=== PATIENT | male | born 1950 | race Caucasian/White ===

== ENCOUNTER 2022-06-17 22:47 | Emergency (ER) | payer OTHER, SELFPAY ==
[2022-06-17 22:50] VITALS: BP 160/105; PULSE 89; RESP 20; TEMP 36.6; O2SAT 98; BMI 21.3
--- NOTE | 2022-06-17 22:54 | CRLHL7_ITS ---
For Patients: As a result of the Century Cures Act, medical imaging exams and procedure reports are released immediately into your electronic medical record. You may view this report before your referring provider. If you have questions, please contact your health care provider. INDICATION: Fall. TECHNIQUE: CT head without contrast. COMPARISON: None. FINDINGS: CSF spaces: Within normal limits for age. Brain parenchyma and extra-axial spaces: The acuña-white differentiation is normal. No sign of mass, hemorrhage, or midline shift. No extra-axial fluid collection. Skull base and calvarium: The visualized paranasal sinuses and mastoid air cells demonstrate no acute or significant findings. The visualized orbits are grossly unremarkable. No skull fractures. IMPRESSION: Unremarkable noncontrast head CT. Please note that all CT scans at this facility use dose modulation, iterative reconstruction, and/or weight-based dosing when appropriate to reduce radiation dose to as low as reasonably achievable. Dictated by Joe Coello MD @ 06/17/2022 11:36:45 PM (Electronically Signed)
--- NOTE | 2022-06-17 23:03 | ED_ITS ---
HPI - General Adult General Chief complaint: Fall/Minor Trauma Stated complaint: Fell hit head thinks he's having a stroke Time Seen by Provider: 06/17/22 22:57 History of Present Illness HPI narrative: Patient is a somewhat disabled 72-year-old [place] who rolled out of bed tonight. He arrives with an abrasion on the top of his head. He is complaining of intermittent numbness and extreme burning of his hands and legs. Upon arrival he is screaming I need morphine. Patient moves all of his extremities well. He seems to be very distractible with regards to his history and for the most part appears to be at his baseline. His daughter peers stating that the patient is difficult to handle and his often intoxicated which he is at this point. Related Data Home Medications Medication Instructions Recorded Confirmed aspirin 325 mg tablet 325 mg PO DAILY 06/17/22 06/17/22 atorvastatin 80 mg tablet 80 mg PO QPM 06/17/22 06/17/22 fluticasone propionate 50 2 spray intranasal DAILY PRN 06/17/22 06/17/22 mcg/actuation nasal spray,suspension (24 Hour Allergy Relief) isosorbide mononitrate 30 mg 30 mg PO DAILY 06/17/22 06/17/22 tablet,extended release 24 hr lisinopril 10 1 tab PO DAILY 06/17/22 06/17/22 mg-hydrochlorothiazide 12.5 mg tablet loratadine 10 mg tablet 10 mg PO DAILY 06/17/22 06/17/22 (Allerclear) metoprolol tartrate 50 mg tablet 25 mg PO BID 06/17/22 06/17/22 (Lopressor) nitroglycerin 0.4 mg sublingual 0.4 mg sublingual Q5-15M PRN 06/17/22 06/17/22 tablet pantoprazole 20 mg tablet,delayed 20 mg PO DAILY 06/17/22 06/17/22 release Allergies Allergy/AdvReac Type Severity Reaction Status Date / Time No Known Drug Allergies Allergy Verified 06/17/22 23:09 Review of Systems Status of ROS: Reports: 10 or more systems reviewed and unremarkable except as noted in History and below Exam Narrative: Exam Narrative: EXAM GENERAL: Patient appears comfortable and well. Abrasion noted on his scalp. EYES: No scleral icterus. LYMPH: No supraclavicular or cervical lymphadenopathy. SKIN: Visible skin seen during exam normal or with benign process only. EXT: No dependent lower extremity pedal edema. Unable to palpate any bony abnormalities in the patient moves all extremities well. HEART: Regular rate and rhythm with no murmurs, rubs, or gallops. LUNGS: Clear to auscultation bilaterally with no crackles or wheezes. ABD: Soft, non tender, non distended. PSYCH: Patient is intoxicated. Const: Vital Signs, click to edit/add: Vital Signs - 24 hr 06/17/22 22:50 Temperature 97.9 F Pulse Rate [Right Pulse Oximeter] 89 Respiratory Rate 20 Blood Pressure [Ri ght Upper Arm] 160/105 H Pulse Oximetry 98 Oxygen Delivery Me thod Room Air Course Course Hospital Course: Patient seen examined. I did explain my somewhat guarded opinion of patient's true injuries to his [id number] who is very understanding patient sent for CT scan of the head which is unremarkable upon my review. Did dress his wounds on his scalp. Reevaluation(s) Reevaluation #1: Patient asking for pain medications which we are declining as patient is intoxicated. Time: 23:07 Vital Signs Vital signs: Initial Vital Signs Temperature 97.9 F 06/17/22 22:50 Temperature Source Temporal Artery Scan 06/17/22 22:50 Pulse Rate 89 06/17/22 22:50 Respiratory Rate 20 06/17/22 22:50 Blood Pressure 160/105 H 06/17/22 22:50 Blood Pressure Mean 123 06/17/22 22:50 Blood Pressure Position Supine 06/17/22 22:50 Pulse Oximetry 98 06/17/22 22:50 Oxygen Delivery Method 06/17/22 22:50 Vital Signs Temperature 97.9 F 06/17/22 22:50 Pulse Rate 89 06/17/22 22:50 Respiratory Rate 20 06/17/22 22:50 Blood Pressure 160/105 H 06/17/22 22:50 Pulse Oximetry 98 06/17/22 22:50 Oxygen Delivery Method 06/17/22 22:50 Temperature 97.9 F 06/17/22 22:50 Pulse Rate 89 06/17/22 22:50 Respiratory Rate 20 06/17/22 22:50 Blood Pressure 160/105 H 06/17/22 22:50 Pulse Oximetry 98 08/01/22 22:50 Oxygen Delivery Method 06/17/22 22:50 Discharge Plan Discharge Clinical Impression: Contusion Patient Disposition: Home, Self-Care Condition: Stable Additional Instructions: Continue current care. Tylenol Motrin as needed. Ice as needed. Activity Level: Activity as Tolerated Discharge Diet: Regular Stand Alone Forms: [facility] Info Instructions
[2022-06-17] MEDS: KETOROLAC 30 MG/ML inj IM (23:15)
[2022-06-17 23:38] VITALS: BP 155/89; PULSE 84; RESP 20; TEMP 36.6; O2SAT 98
--- NOTE | 2022-06-17 23:39 | ED.FALL ---
HPI - Fall General Chief Complaint: Fall/Minor Trauma Stated Complaint: Fell hit head thinks he's having a stroke Time Seen by Provider: 06/17/22 22:57 Related Data Home Medications Medication Instructions Recorded Confirmed atorvastatin 80 mg tablet 80 mg PO QPM 06/17/22 07/16/22 fluticasone propionate 50 1 spray intranasal DAILY 06/17/22 07/16/22 mcg/actuation nasal spray,suspension (24 Hour Allergy Relief) isosorbide mononitrate 30 mg 30 mg PO DAILY 06/17/22 07/16/22 tablet,extended release 24 hr loratadine 10 mg tablet 10 mg PO DAILY 06/17/22 07/16/22 (Allerclear) metoprolol tartrate 50 mg tablet 50 mg PO BID 06/17/22 07/16/22 (Lopressor) amiodarone 200 mg PO DAILY 06/18/22 07/16/22 apixaban 5 mg tablet 5 mg PO BID 06/18/22 07/16/22 acetaminophen 500 mg tablet 500 mg PO TID 07/16/22 07/16/22 adalimumab 40 mg/0.4 mL 40 mg subcut Q14D 07/16/22 07/16/22 subcutaneous pen kit aspirin 81 mg tablet,delayed 81 mg PO DAILY 07/16/22 07/16/22 release (Adult Low Dose Aspirin) cholecalciferol (vitamin D3) 25 25 mcg PO DAILY 07/16/22 07/16/22 mcg (1,000 unit) capsule cyanocobalamin (vitamin B-12) 1,000 mcg PO DAILY 07/16/22 07/16/22 1,000 mcg tablet folic acid 1 mg tablet 1 mg PO DAILY 07/16/22 07/16/22 lidocaine 4 % topical patch 1 - 3 patch topical Q24H 07/16/22 07/16/22 methocarbamol 500 mg tablet 250 - 500 mg PO Q6H PRN 07/16/22 07/16/22 oxycodone 5 mg tablet 2.5 - 5 mg PO Q4H PRN 07/16/22 07/16/22 pantoprazole 40 mg tablet,delayed 40 mg PO DAILY 07/16/22 07/16/22 release polyethylene glycol 3350 17 17 g PO BID 07/16/22 07/16/22 gram/dose oral powder (Miralax) prednisone 10 mg tablet 10 mg PO DAILY 07/16/22 07/16/22 sulfasalazine 500 mg tablet 1 g PO BID 07/16/22 07/16/22 Previous Rx's Medication Instructions Recorded budesonide 0.5 mg/2 mL suspension 0.5 mg (2 mL) NEB BID 30 days #60 07/17/22 for nebulization (Pulmicort) mL ipratropium 0.5 mg-albuterol 3 mg 3 ml inhalation TID 30 days #90 ea 07/17/22 (2.5 mg base)/3 mL nebulization soln Allergies Allergy/AdvReac Type Severity Reaction Status Date / Time No Known Drug Allergies Allergy Verified 07/16/22 10:52 [facility] Medical History (Updated 10/28/22 @ 00:03 by ) Alcohol abuse Arteriosclerosis of coronary artery Atrial fibrillation C5 pedicle fracture CHF (congestive heart failure) Chronic kidney disease GERD (gastroesophageal reflux disease) Hypertension Rheumatoid arthritis Tetrahydrocannabinol (THC) use disorder, mild, abuse Surgical History H/O total knee replacement Hx of coronary angioplasty Social History Highest level of school completed/degree received: 9th grade Smoking Status: Former smoker Do you use any of these nicotine containing products: None Second hand tobacco smoke exposure: No How often do you have a drink containing alcohol: never AUDIT-C Alcohol total score: 0 Non-prescribed substance use: marijuana (any form) Caffeine: Yes service: Yes Exam Const: Vital Signs, click to edit/add: Vital Signs - 24 hr 06/17/22 22:50 06/17/22 23:38 Temperature 97.9 F 97.9 F Pulse Rate [Right Pulse Oximeter] 89 84 Respiratory Rate 20 20 Blood Pressure [Ri ght Upper Arm] 160/105 H 155/89 H Pulse Oximetry 98 98 Oxygen Delivery Me thod Room Air Room Air Course Course Hospital Course: Patient seen examined. I did explain my somewhat guarded opinion of patient's true injuries to his [id number] who is very understanding patient sent for CT scan of the head which is unremarkable upon my review. Did dress his wounds on his scalp. Vital Signs Vital signs: Initial Vital Signs Temperature 97.9 F 06/17/22 22:50 Temperature Source Temporal Artery Scan 06/17/22 22:50 Pulse Rate 89 06/17/22 22:50 Respiratory Rate 20 06/17/22 22:50 Blood Pressure 160/105 H 06/17/22 22:50 Blood Pressure Mean 123 06/17/22 22:50 Blood Pressure Position Supine 06/17/22 22:50 Pulse Oximetry 98 06/17/22 22:50 Oxygen Delivery Method 06/17/22 22:50 Vital Signs Temperature 97.9 F 06/17/22 22:50 Pulse Rate 89 06/17/22 22:50 Respiratory Rate 20 06/17/22 22:50 Blood Pressure 160/105 H 06/17/22 22:50 Pulse Oximetry 98 06/17/22 22:50 Oxygen Delivery Method 06/17/22 22:50 Temperature 97.9 F 06/17/22 23:45 Pulse Rate 84 06/17/22 23:45 Respiratory Rate 20 06/17/22 23:45 Blood Pressure 155/89 H 06/17/22 23:45 Pulse Oximetry 98 06/17/22 23:38 Oxygen Delivery Method 06/17/22 23:38 Discharge Plan Discharge Clinical Impression: Contusion Patient Disposition: Home, Self-Care Condition: Stable Additional Instructions: Continue current care. Tylenol Motrin as needed. Ice as needed. Activity Level: Activity as Tolerated Discharge Diet: Regular Prescriptions: No Action fluticasone propionate [24 Hour Allergy Relief] 50 mcg/actuation spray,suspension 1 spray intranasal DAILY Rx Instructions: administer into each nostril loratadine [Allerclear] 10 mg tablet 10 mg PO DAILY metoprolol tartrate [Lopressor] 50 mg tablet 50 mg PO BID isosorbide mononitrate 30 mg tablet extended release 24 hr 30 mg PO DAILY atorvastatin 80 mg tablet 80 mg PO QPM apixaban 5 mg tablet 5 mg PO BID amiodarone 200 mg PO DAILY acetaminophen 500 mg tablet 500 mg PO TID adalimumab 40 mg/0.4 mL pen injector kit 40 mg subcut Q14D Rx Instructions: start on day 29 of therapy aspirin [Adult Low Dose Aspirin] 81 mg tablet,delayed release (DR/EC) 81 mg PO DAILY cholecalciferol (vitamin D3) 25 mcg (1,000 unit) capsule 25 mcg PO DAILY cyanocobalamin (vitamin B-12) 1,000 mcg tablet 1,000 mcg PO DAILY folic acid 1 mg tablet 1 mg PO DAILY lidocaine 4 % adhesive patch,medicated 1 - 3 patch topical Q24H Rx Instructions: may leave on for up to 12 hrs pantoprazole 40 mg tablet,delayed release (DR/EC) 40 mg PO DAILY sulfasalazine 500 mg tablet 1 g PO BID Rx Instructions: give with food (meal/snack) prednisone 10 mg tablet 10 mg PO DAILY polyethylene glycol 3350 [Miralax] 17 gram/dose powder 17 g PO BID oxycodone 5 mg tablet 2.5 - 5 mg PO Q4H PRN methocarbamol 500 mg tablet 250 - 500 mg PO Q6H PRN budesonide [Pulmicort] 0.5 mg/2 mL Suspension For Nebulization 0.5 mg NEB BID 30 Days Qty: 60 1RF ipratropium-albuterol 0.5 mg-3 mg(2.5 mg base)/3 mL solution for nebulization 3 ml inhalation TID 30 Days Qty: 90 1RF Stand Alone Forms: [facility] Info Instructions
[2022-06-17 23:43] VITALS: TEMP 36.6
[2022-06-17 23:45] VITALS: BP 155/89; PULSE 84; RESP 20; TEMP 36.6
--- OUTSIDE RECORDS SUMMARY | 2022-06-25 19:35 | XMS_ITS | Continuity of Care Document ---
:1950 Author Organization [facility] Care Team Providers Name Role Phone [facility] Unavailable Unavailable Problems Combined list of problems from Department of Defense and [facility] Affairs facilities. It does not include entries that were removed or entered in error. Problem Status Onset Problem Date of Comments Source Date Type Resolution Acute non-ST segment Active Condition THICK[place] elevation myocardial [facility] infarction Alcohol abuse Active Condition [place] (SNOMED CT 71825481) [facility] Anemia (SNOMED CT Active Condition [place] [id number]) [facility] Ankle pain Active Condition [place] [facility] Benign essential Active Condition [place] hypertension (OMED [facility] CT 6437932) CAD - Coronary Active Condition Sep 18, [place] artery disease 2015 Entered [facility] By: MARYELLEN LEON Comment: s/p stenting Cannabis abuse Active Condition [place] (SNOMED CT 18069928) [facility] Chronic kidney Active Condition [place] disease [facility] Drug monitoring done Active Condition [facility] Elevated liver Active Condition [place] enzymes level [facility] Gastroesophageal Active Condition [place] reflux disease [facility] 422281002) Hand pain Active [place] [facility] Hearing loss * Active Condition [place] (ICD-9-CM 389.9) [facility] HTN - Hypertension Active Condition [place] (SNOMED CT 47908861) [facility] Hyperlipidemia Active Condition [place] (SNOMED CT 72609449) [facility] Jt Replcmnt Stat, Active Condition [place] Knee [facility] Long-term current Active Condition [place] use of anticoagulant [facility] 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, [place]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 [facility] By: MARYELLEN LEON Comment: [facility] 02/2022 Pain in joint Active Condition May 14, [place] involving shoulder 2010 Entere d [facility] region (ICD-9-CM By: 719.41) MARYELLEN LEON Comment: RIGHT Pain of right Active Condition [place] shoulder joint [facility] Paroxysmal atrial Active Condition [place] fibrillation [facility] Rhinitis Active Condition [place] [facility] Rib fracture Active Condition Dec 15, [place] 2018 Entered [facility] By: MARYELLEN LEON Comment: s/p fall 11/2018, RIGHT rib Seropositive Active Condition [place] rheumatoid arthritis [facility] Knee: arthralgia * Inactive Condition 05/04/2010 THICKET (ICD-9-CM 719.46) [facility] Admit Reason: FALL active Diagnosis [place] REC DC [facility] Diagnosis: ICD-10-CM active Diagnosis THICKET R62.7 Adult failure [facility] to thrivewith Provider Comments: Adult Failure to Thrive Diagnosis: ICD-10-CM active Diagnosis THICKET I47.1 [facility] Supraventricular tachycardiawith Provider Comments: Multifocal atrial tachycardia (SCT 86347649) Diagnosis: ICD-10-CM active Diagnosis THICKET I48.0 Paroxysmal [facility] atrial fibrillationwith Provider Comments: Paroxysmal atrial fibrillation (SCT 852321684) Diagnosis: ICD-10-CM active Diagnosis THICKET Z13.6 Encounter for [facility] screening for cardiovascular disorderswith Provider Comments: Encounter for Screening for Cardiovascular Disorders Diagnosis: ICD-10-CM active Diagnosis THICKET K64.8 Other [facility] hemorrhoidswith Provider Comments: Other Hemorrhoids Diagnosis: ICD-10-CM active Diagnosis THICKET Z71.89 Other [facility] specified counselingwith Provider Comments: Other specified Counseling Diagnosis: ICD-10-CM active Diagnosis THICKET Z79.01 [facility] (current) use of anticoagulantswith Provider Comments: [facility] (current) use of anticoagulants Diagnosis: ICD-10-CM active Diagnosis THICKET I48.92 Unspecified V [facility] atrial flutterwith Provider Comments: Unspecified Atrial Flutter Diagnosis: ICD-10-CM active Diagnosis THICKET I47.1 [facility] Supraventricular tachycardiawith Provider Comments: Multifocal atrial tachycardia (SNOMED CT 90723711) Diagnosis: ICD-10-CM active Diagnosis THICKET M06.9 Rheumatoid [facility] arthritis, unspecifiedwith Provider Comments: Seropositive rheumatoid arthritis (SCT 148004729) Diagnosis: ICD-10-CM active Diagnosis THICKET K02.9 Dental caries, [facility] unspecifiedwith Provider Comments: Dental Caries, unspecified Diagnosis: ICD-10-CM active Diagnosis THICKET Z23 Encounter for [facility] immunizationwith Provider Comments: Encounter for Immunization Diagnosis: ICD-10-CM active Diagnosis THICKET H25.13 Age-related V A [facility] nuclear cataract, bilateralwith Provider Comments: Age-related nuclear cataract, bilateral Diagnosis: ICD-10-CM active Diagnosis THICKET I25.10 Athscl heart [facility] disease of [place] coronary artery w/o ang pctrswith Provider Comments: CAD - Coronary artery disease ([facility] [id number]) Diagnosis: ICD-10-CM active Diagnosis THICKET L40.50 Arthropathic [facility] psoriasis, unspecifiedwith Provider Comments: Psoriatic arthritis Diagnosis: ICD-10-CM active Diagnosis THICKET M05.9 Rheumatoid [facility] arthritis with rheumatoid factor, unspecifiedwith Provider Comments: Seropositive Rheumatoid arthritis Medications Combined list of outpatient medications from Department of Defense and Veterans Affairs facilities. Medications provided include 1) outpatient medications from the last 15 months, and 2) patient-reported medications. Medication Details Route Status Patient Prescription Prescription Last Ordering Order Source Instructions Expires Number Dispense Provider Date Date ACETAMINOPH TAKE TWO ORALLY ACTIVE 02/09/2023 [id number] H OANG,VIE 02/11/ [place] 500MG TABLETS 2 T H 2021 [place] TAB BY MOUTH [facility] FOUR TIMES A DAY NEEDED *NOT TO EXCEED 4000MG IN 24 HOURS* FOR PAIN ACETAMINOPH TAKE TWO ORALLY DISCONT 01/13/2022 [id number] LEON,VIE 01/16/ [place] 500MG TABLETS INUED 2 T H 2020 [place] TAB BY MOUTH [facility] FOUR TIMES A DAY NEEDED *NOT TO EXCEED 4000MG IN 24 HOURS* FOR PAIN ADALIMUMAB INJECT SUBCUT ACTIVE 01/12/2023 [id number] RIN DEN,TI 02/08/ [place] 40MG/0.8ML 40 MG ANEOUS 2 MOTHY D 2021 [place] A INJ,PEN,KIT UNDER HCS THE SKIN EVERY 2 WEEKS ADALIMUMAB INJECT SUBCUT DISCONT 09/29/2022 [id number] MO LITOR,J 10/01/ [place] 40MG/0.8ML 40 MG ANEOUS INUE 2 ERRY A 2020 [place] INJ,PEN,KIT UNDER HCS THE SKIN EVERY 2 WEEKS ADALIMUMAB INJECT SUBCUT DISCONT 01/13/2022 [id number] AL VANPOUR 01/16/ [place] 40MG/0.8ML 40 MG ANEOUS INUE 1 ,RAGHAVENDRA 2020 [place] INJ,PEN,KIT UNDER HCS THE SKIN EVERY 2 WEEKS AMIODARONE TAKE ONE ORALLY SUSPEND 05/16/2023 [id number] M CCRARY,A 05/16/ [place] HCL TABLET ED 2 BBIE L 2021 [place] (PACERONE) BY MOUTH HCS 200MG TAB EVERY DAY FOR HEART RHYTHM - TAKE WITH FOOD AMIODARONE TAKE ONE ORALLY DISCONT 07/09/2022 [id number] M CCRARY,A 04/10/ [place] HCL TABLET INUED 2 BBIE L 2021 [place] (PACERONE) BY MOUTH (EDIT) HCS 200MG TAB TWICE A DAY FOR 30 DAYS, THEN TAKE ONE TABLET EVERY DAY FOR HEART RHYTHM - TAKE WITH FOOD APIXABAN TAKE ONE ORALLY ACTIVE 06/06/2023 [id number] EDUARDO ON, 06/06/ [place] 5MG TAB TABLET 2 HANG 2021 [place] BY MOUTH [facility] EVERY 12 HOURS TO PREVENT BLOOD CLOTS and STROKE. APIXABAN TAKE ONE ORALLY DISCONT 04/24/2023 [id number] VIC ACUNAK 04/24/ [place] 5MG TAB TABLET INUED 2 RISTIN Y 2021 [place] BY MOUTH (EDIT) HCS EVERY 12 HOURS TO PREVENT BLOOD CLOTS and STROKE. APIXABAN TAKE ONE ORALLY DISCONT 05/10/2022 [id number] ALF RARY,A 04/10/ [place] 5MG TAB TABLET INUED 2 BBIE L 2021 [place] BY MOUTH (EDIT) HCS EVERY 12 HOURS TO PREVENT BLOOD CLOTS and STROKE. ASPIRIN TAKE ONE ORALLY DISCONT 06/02/2022 [id number] DANAY NG,VIE 07/26/ [place] 81MG TAB,EC TABLET INUED 2 T H 2020 [place] BY MOUTH HCS EVERY DAY ASPIRIN TAKE ONE ORALLY DISCONT 12/26/2021 [id number] DANAY NG,VIE 12/27/ [place] 81MG TAB,EC TABLET INUE 1 T H 2020 [place] BY MOUTH HCS EVERY DAY ATORVASTATI TAKE ONE ORALLY ACTIVE 03/06/2023 [id number] H OANG,VIE 03/05/ [place] CA 80MG TABLET 2 T H 2021 [place] TAB BY MOUTH HCS AT BEDTIME FOR CHOLESTE ROL REPLACES SIMVASTA TIN ATORVASTATI TAKE ORALLY DISCONT 06/02/2022 [id number] H OAJATIN CASTRO 06/03/ [place] 80MG ONE-HALF INUED 2 T H 2020 [place] TAB TABLET (EDIT) HCS BY MOUTH AT BEDTIME FOR CHOLESTE ROL REPLACES SIMVASTA TIN CARBOXYMETH INSTILL BOTH ACTIVE 07/12/2022 [id number] SCHEU RER, 07/12/ [place] YLCELLULOSE 1 DROP EYES 1 ANGELA A 2020 [place] A NA 0.25% IN BOTH HCS SOLN,OPH EYES FOUR TIMES A DAY CEPHALEXIN TAKE 1 ORALLY ACTIVE JATIN LEON [place] 500MG CAP CAPSULE T H 2021 [place] BY MOUTH HCS FOUR TIMES A DAY CHOLECALCIF TAKE ONE ORALLY 06/02/2022 [id number] CAROLYNCHARLESNina 06/03/ [place] RONAK 25MCG TABLET 2 T H 2020 [place] (1,000UNIT) BY MOUTH HCS TAB EVERY DAY CYANOCOBALA TAKE ONE ORALLY ACTIVE 03/06/2023 [id number] LEON,VIE 05/30/ [place] MIN 1000MCG TABLET 2 T H 2021 [place] TAB BY MOUTH HCS EVERY DAY CYANOCOBALA TAKE ONE ORALLY DISCONT 06/02/2022 [id number] LEON,VIE 06/03/ [place] MIN 1000MCG TABLET INUED 2 T H 2020 [place] TAB BY MOUTH HCS EVERY DAY DOCUSATE NA TAKE TWO ORALLY ACTIVE JATIN LEON 06/24 / [place] 50MG/SENNOS TABLETS T H 2021 [place] A IDES 8.6MG BY MOUTH HCS TAB TWICE A DAY FLUTICASONE SPRAY 1 NASAL 06/02/2022 [id number] JATIN LEON 06/03/ [place] PROPIONATE SPRAY IN 1 T H 2020 [place] A 50MCG/SPRAY EACH HCS SOLN,NASAL, NOSTRIL 16GM TWICE A DAY NEEDED FOR RUNNY NOSE USE REGULARL Y FOR RELIEF OF ALLERGIE S/CONGES TION FOLIC ACID TAKE ONE ORALLY ACTIVE 03/06/2023 [id number] H OACHARLES CASTROE 04/25/ [place] 1MG TAB TABLET 2 T H 2021 [place] BY MOUTH HCS EVERY DAY FOLIC ACID TAKE ONE ORALLY DISCONT 01/12/2023 [id number] RINDEN,TI 02/04/ [place] 1MG TAB TABLET INUED 2 MOTHY D 2021 [place] BY MOUTH HCS EVERY DAY FOLIC ACID TAKE ONE ORALLY DISCONT 01/13/2022 [id number] ALVANPOUR 02/19/ [place] 1MG TAB TABLET INUE 1 ,RAGHAVENDRA 2020 [place] BY MOUTH HCS EVERY DAY GABAPENTIN TAKE 1 ORALLY ACTIVE JATIN LEON [place] 300MG CAP CAPSULE T H 2021 [place] BY MOUTH HCS THREE TIMES A DAY HEMORRHOIDA APPLY RECTAL ACTIVE [place] L OINT,RTL THIN SSEIN 2021 [place] LAYER TO ISSAK HCS RECTUM FOUR TIMES A DAY NEEDED ISOSORBIDE TAKE ORALLY ACTIVE 03/06/2023 [id number] LEON, VIE 03/13/ [place] MONONITRATE ONE-HALF 2 T H 2021 [place] 60MG TAB,SA TABLET HCS BY MOUTH EVERY DAY ISOSORBIDE TAKE ORALLY DISCONT 03/22/2022 [id number] FB-SAG ER, 02/21/ [facility] MONONITRATE ONE-HALF INUED 2 ANGELA 2021 ent o f 60MG TAB,SA TABLET BY MOUTH s EVERY Affairs DAY ISOSORBIDE TAKE ONE ORALLY DISCONT 06/02/2022 [id number] LEON,VIE 06/23/ [place] MONONITRATE TABLET INUED 2 T H 2020 [place] 60MG TAB,SA BY MOUTH HCS EVERY DAY FOR CHEST PAIN ISOSORBIDE TAKE ONE ORALLY DISCONT 07/29/2021 [id number] LEON,VIE 09/12/ [place] MONONITRATE TABLET INUE 1 T H 2019 [place] 60MG TAB,SA BY MOUTH HCS EVERY DAY FOR CHEST PAIN LIDOCAINE APPLY TOPICA ACTIVE JATIN LEON 06/24/ [place] PATCH 1-3 LLY T H 2021 [place] PATCH 4% HCS TOPICALL Y EVERY DAY LORATADINE TAKE ONE ORALLY DISCONT 07/29/2021 [id number] H ZINAJATIN 09/04/ [place] 10MG TAB TABLET INUE 1 T H 2019 [place] BY MOUTH HCS EVERY DAY FOR ALLERGY SYMPTOMS LORATADINE TAKE ONE ORALLY 06/02/2022 [id number] H ZINAJATIN 06/23/ [place] 10MG TAB TABLET 2 T H 2020 [place] BY MOUTH HCS EVERY DAY FOR ALLERGY SYMPTOMS MAGNESIUM TAKE 1 ORALLY 04/05/2022 [id number] RANWEI LER 03/06/ [place] CITRATE BOTTLE 2 ,VJ B 2021 [place] LIQUID,ORAL BY MOUTH HCS ONCE AT 12PM (NOON) ONE DAY BEFORE PROCEDUR E FOR COLON PREP METHOCARBAM TAKE ORALLY ACTIVE JATIN LEON 06/24/ [place] TAB ONE-HALF T H 2021 [place] TO ONE HCS TABLET BY MOUTH EVERY 6 HOURS NEEDED METOPROLOL TAKE ONE ORALLY ACTIVE 03/06/2023 [id number] H JATIN IZAGUIRRE 03/13/ [place] TARTRATE TABLET 2 T H 2021 [place] 50MG TAB BY MOUTH HCS TWICE A DAY METOPROLOL TAKE ONE ORALLY DISCONT 03/22/2022 [id number] F B-GABRIEL, m TARTRATE TABLET INUED 2021 ent of 50MG TAB BY MOUTH [place] TWICE A s DAY Affairs METOPROLOL TAKE ORALLY DISCONT 06/02/2022 [id number] CHARLES LEONE 08/07/ [place] TARTRATE ONE-HALF INUED 2 T H 2020 [place] 50MG TAB TABLET HCS BY MOUTH TWICE A DAY FOR HEART METOPROLOL TAKE ORALLY DISCONT 07/29/2021 [id number] JATIN LEON 08/18/ [place] TARTRATE ONE-HALF INUE 1 T H 2019 [place] 50MG TAB TABLET HCS BY MOUTH TWICE A DAY FOR HEART OXYCODONE TAKE ORALLY ACTIVE JATIN LEON 06/24/ [place] TAB ONE-HALF T H 2021 [place] TO ONE HCS TABLET BY MOUTH EVERY 4 HOURS NEEDED PANTOPRAZOL TAKE ONE ORALLY ACTIVE 03/06/2023 [id number] LEON,VIE 04/30/ [place] NA 40MG TABLET 2 T H 2021 [place] TAB,EC BY MOUTH HCS EVERY MORNING ONE-HALF HOUR BEFORE EATING TO DECREASE STOMACH ACID TAKE ON AN EMPTY STOMACH, AT LEAST 30 MINUTES PRIOR TO MEAL PANTOPRAZOL TAKE ONE ORALLY DISCONT 06/02/2022 [id number] LEON,VIE 08/07/ [place] NA 40MG TABLET INUED 2 T H 2020 [place] TAB,EC BY MOUTH HCS EVERY MORNING ONE-HALF HOUR BEFORE EATING TO DECREASE STOMACH ACID TAKE ON AN EMPTY STOMACH, AT LEAST 30 MINUTES PRIOR TO MEAL PANTOPRAZOL TAKE ONE ORALLY DISCONT 07/29/2021 [id number] LEON,VIE 08/09/ [place] 40MG TABLET INUE 1 T H 2019 [place] TAB,EC BY MOUTH HCS EVERY MORNING ONE-HALF HOUR BEFORE EATING TO DECREASE STOMACH ACID TAKE ON AN EMPTY STOMACH, AT LEAST 30 MINUTES PRIOR TO MEAL PEG-3350/EL TAKE 1 ORALLY 04/05/2022 [id number] RA NWEILER 03/06/ [place] ECTROLYTES CONTAINE 2 ,VJ B 2021 [place] S VA PWDR R (4 HCS LITERS) BY MOUTH DIRECTED FOR COLON PREP *MIX ACCORDIN G TO PACKAGE INSTRUCT IONS. *DRINK ONE-HALF CONTAINE R STARTING AT 4PM THE DAY BEFORE EXAM. DRINK REMAININ G ONE-HALF CONTAINE R 6 HOURS BEFORE EXAM. FOR COLON PREP *MIX ACCORDIN G TO PACKAGE INSTRUCT IONS. *DRINK ONE-HALF CONTAINE R STARTING AT 4PM THE DAY BEFORE EXAM. DRINK REMAININ G ONE-HALF CONTAINE R 6 HOURS BEFORE EXAM. POLYETHYLEN TAKE 17 ORALLY ACTIVE LEON,VIE 06/24/ [place] E GLYCOL GRAMS BY T H 2021 [place] 3350 MOUTH HCS PWDR,ORAL TWICE A DAY PREDNISONE TAKE ONE ORALLY ACTIVE 01/12/2023 [id number] R IN[place],TI 01/19/ [place] 10MG TAB TABLET 2 MOTHY D 2021 [place] BY MOUTH HCS EVERY DAY PREDNISONE TAKE ONE ORALLY DISCONT 03/21/2022 [id number] M OLVINICIUSJ 03/20/ [place] 10MG TAB TABLET INUE 1 ERRY A 2020 [place] BY MOUTH HCS EVERY DAY SULFASALAZI TAKE TWO ORALLY ACTIVE 01/12/2023 [id number] RINDEN,TI 01/19/ [place] 500MG TABLETS 2 MOTHY D 2021 [place] TAB BY MOUTH HCS TWICE A DAY SULFASALAZI TAKE TWO ORALLY DISCONT 03/21/2022 [id number] ORLANDOJ 03/20/ [place] 500MG TABLETS INUE 1 ERRY A 2020 [place] [facility] TAB BY MOUTH HCS TWICE A DAY TAMSULOSIN TAKE 1 ORALLY ACTIVE JATIN LEON [place] HCL 0.4MG CAPSULE T H 2021 [place] CAP BY MOUTH HCS EVERY DAY Allergies, Adverse Reactions, Alerts Combined list of allergies from Department of Defense and Veterans Affairs facilities. It does not include entries that were removed or entered in error. Substance Category Reaction Severity Reaction Status Date Comments S ource type Reported LISINOPRIL Propensity Cough Propensity active [place] to adverse to adverse 1 IS [facility] reactions reactions to drug to drug (finding) (finding) Immunizations Combined list of available immunizations from the Department of Defense and Veterans Affairs facilities. 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 4 complet PFR; [place] (LUBB-TEX), 2021 ed [id number]; [place] MRNA, LNP-S, 02 HCS PF, 30 2 MCG/0.3 ML DOSE, JJ-SUCROSE (AGES 12+ YEARS) COVID-19 3 complet PRF; [place] (LUBB-TEX), 2020 ed [id number]; [place] MRNA, LNP-S, 02 HCS PF, 30 2 MCG/0.3 ML DOSE INFLUENZA, complet [place] INJECTABLE, 2020 ed [place] QUADRIVALENT, HCS PRESERVATIVE FREE COVID-19 2 complet PFR; [place] (PFIZER), 2020 ed [id number]; [place] MRNA, LNP-S, 02 HCS PF, 30 1 MCG/0.3 ML DOSE COVID-19 1 complet PFR; [place] (PFIZER), 2020 ed [id number]; [place] MRNA, LNP-S, 02 CBOC PF, 30 1 MCG/0.3 ML DOSE INFLUENZA, complet [place] INJECTABLE, 2019 ed [place] QUADRIVALENT, HCS PRESERVATIVE FREE INFLUENZA, complet [place] SEASONAL, 2018 ed [place] INJECTABLE, HC S PRESERVATIVE FREE ZOSTER 2 complet [place] RECOMBINANT 2018 ed [place] H[facility] ZOSTER 1 complet [place] RECOMBINANT 2018 ed [place] HCS INFLUENZA, complet [place] SEASONAL, 2017 ed [place] INJECTABLE, HC S PRESERVATIVE FREE INFLUENZA, complet [place] HIGH DOSE 2016 [facility] INFLUENZA, complet [place] SEASONAL, 2015 ed [place] INJECTABLE, HC S PRESERVATIVE FREE INFLUENZA, complet [place] HIGH DOSE 2014 ed [place] SEASONAL HCS PNEUMOCOCCAL complet [facility] [place] CONJUGATE PCV 2015 ed PHARM, M20 [facility] 13 640,03/03 HCS INFLUENZA, complet [place] SEASONAL, 2013 ed [place] INJECTABLE, HC S PRESERVATIVE FREE PNEUMOCOCCAL, complet michelle ck and [place] UNSPECIFIED 2013 ed co,[id number] [facility] VA FORMULATION 6,25sep1 4 HCS INFLUENZA, complet [place] UNSPECIFIED 2013 ed [place] [facility] FORMULATION HC S INFLUENZA, complet [place] UNSPECIFIED 2012 ed [place] [facility] FORMULATION HC S ZOSTER LIVE complet [place] 2012 ed INC, OL VA [id number], HCS [id number] TDAP complet glaxos[employer] M [place] 2009 ed hkline,ac [facility] [id number], HCS 01/03/12 Results Combined list of recent chemistry, hematology and other laboratory results from Department of Defense and Veterans Affairs, ranging from 15 months to all on record, depending upon the facility. Order Results Value Reference Date Interpretation Specimen Commen ts Source Name Range URINALYS COLOR OF YELLOW 06/24 Specimen Type: URINE [place] IS URINE /2021 No comment enter ed. IS [facility] Ordering Provid er: JAYDE MENDOZA Report Released Date/Time: Jun 24, 2022 06:55 PM Reporting Lab: [facility] [address] [place] [phone] Performing Lab: [facility] [address] [place] [address] URINALYS SPECIFIC 1.039 1.003 - 06/24 H Specimen Type: URINE [place] GRAVITY OF 1.035 /2021 No comment en tered. IS [facility] URINE Ordering Provid er: JAYDE MENDOZA Report Released Date/Time: Jun 24, 2022 06:55 PM Reporting Lab: [facility] [address] [place] [address] Performing Lab: [facility] [address] [place] [address] URINALYS BILIRUBIN. NEGATIVE 06/24 Specimen Ty pe: URINE [place] TOTAL /2021 No comment enter ed. IS [facility] [[place]] Ordering Pro vider: JAYDE MENDOZA IN URINE Report Release d Date/Time: Jun 24, 2022 06:55 PM BY TEST Reporting Lab: [facility] STRIP [address] [place] [address] Performing Lab: [facility] [address] [place] [address] URINALYS KETONES NEGATIVE 06/24 Specimen Type: URINE [place] IS [MASS/VOLU /2021 No comment en tered. IS [facility] ME] IN Ordering Provid er: JAYDE MENDOZA URINE BY Report Release d Date/Time: Jun 24, 2022 06:55 PM TEST STRIP Reporting La b: [facility] [address] [place] [phone] Performing Lab: [facility] [address] [place] [phone] URINALYS GLUCOSE NEGATIVE <30 - 30 06/24 Specimen Type : URINE [place] IS [MASS/VOLU /2021 No comment en tered. IS [facility] ME] IN Ordering Provid er: JAYDE MENDOZA W URINE BY Report Release d Date/Time: Jun 24, 2022 06:55 PM TEST STRIP Reporting La b: [facility] [address] [place] [phone] Performing Lab: [facility] [place] [address] URINALYS PROTEIN 50 <20 - 20 06/24 Specimen Type: URINE [place] IS [MASS/VOLU /2021 No comment en zach. IS [facility] ME] IN Ordering Provid er: JAYDE MENDOZA URINE BY Report Release d Date/Time: Jun 24, 2022 06:55 PM TEST STRIP Reporting La b: [facility] [address] [facility] [phone] Performing Lab: [facility] [place] [address] URINALYS PH OF 6.5 5.0 - 8.0 06/24 Specimen Type : URINE [place] IS URINE BY /2021 No comment jessica bilsl. IS [facility] TEST STRIP Ordering Pro vider: JAYDE MENDOZA Report Released Date/Time: Jun 24, 2022 06:55 PM Reporting Lab: [facility] [address] [place] [facility] [address] Performing Lab: [facility] [address] [place] [facility] [address] URINALYS LEUKOCYTES 17 0 - 7 06/24 H Specimen Typ e: URINE [place] IS [#/AREA] /2021 No comment jessica bills. IS [facility] IN URINE Ordering Provi maria: JAYDE MENDOZA SEDIMENT Report Release d Date/Time: Jun 24, 2022 06:55 PM BY Reporting Lab: [facility] MICROSCOPY [facility] [address] HIGH POWER Performing L ab: [facility] FIELD [address] [place] [facility] [address] URINALYS BACTERIA NONE 06/24 Specimen Type: URINE [place] IS [[place]] SEEN /2021 No comment nils serrano. IS [facility] IN URINE Ordering Provi maria: JAYDE MENDOZA SEDIMENT Report Release d Date/Time: Jun 24, 2022 06:55 PM BY LIGHT Reporting Lab: [facility] MICROSCOPY [facility] [phone] Performing Lab: [facility] [address] [place] [facility] [address] URINALYS CALCIUM FEW 06/24 Specimen Type: URINE [place] IS OXALATE /2021 No comment enter ed. IS [facility] CRYSTALS Ordering Provi maria: JAYDE MENDOZA [[place]] Report Relea sed Date/Time: Jun 24, 2022 06:55 PM IN URINE Reporting Lab: [facility] SEDIMENT [address] [facility] [phone] BY LIGHT Performing Lab : [facility] MICROSCOPY [facility] [address] URINALYS ERYTHROCYT >180 0 - 3 06/24 H Specimen Typ e: URINE [place] IS ES /2021 No comment enter ed. IS [facility] [#/AREA] Ordering Provi maria: JAYDE MENDOZA IN URINE Report Release d Date/Time: Jun 24, 2022 06:55 PM SEDIMENT Reporting Lab: [facility] BY [address] [place] [facility] [address] MICROSCOPY Performing L ab: [facility] HIGH POWER [facility] [address] FIELD URINALYS APPEARANCE TURBID 06/24 Specimen Typ e: URINE [place] IS OF URINE /2021 No comment ente red. IS [facility] Ordering Provid er: JAYDE MENDOZA Report Released Date/Time: Jun 24, 2022 06:55 PM Reporting Lab: [facility] [address] [place] [facility] [address] Performing Lab: [facility] [address] [place] [facility] [address] URINALYS EPITHELIAL NONE 06/24 Specimen Typ e: URINE [place] IS CELLS.SQUA SEEN No comment en tered. IS [facility] MOUS Ordering Provid er: JAYDE MENDOZA [#/AREA] Report Release d Date/Time: Jun 24, 2022 06:55 PM IN URINE Reporting Lab: [facility] SEDIMENT [address] [facility] [id number] BY Performing Lab: [facility] MICROSCOPY [facility] [id number] HIGH POWER FIELD URINALYS HEMOGLOBIN 3+ 06/24 Specimen Typ e: URINE [place] IS [PRESENCE] /2021 No comment en tered. IS [facility] [facility] Ordering Provi maria: JAYDE MENDOZA BY TEST Report Released Date/Time: Jun 24, 2022 06:55 PM STRIP Reporting Lab: [facility] [address] [facility] [address] Performing Lab: [facility] [address] [facility] [address] URINALYS NITRITE NEGATIVE 06/24 Specimen Type: URINE [place] IS [[place]] No comment en tered. IS [facility] IN URINE Ordering Prov ider: KELLY,JAYDE W BY TEST Report Released Date/Time: Jun 24, 2022 06:55 PM STRIP Reporting Lab: [facility] [place] [address] Performing Lab: [facility] [address] [place] [address] URINALYS LEUKOCYTE 25 06/24 Specimen Type : URINE [place] IS ESTERASE /2021 No comment ente red. IS [facility] [[place]] Ordering Pro vider: JAYDE MENDOZA IN URINE Report Release d Date/Time: Jun 24, 2022 06:55 PM BY TEST Reporting Lab: [facility] STRIP [address] [place] [address] Performing Lab: [facility] [address] [place] [address] AST/SGOT ASPARTATE 19 <34 - 34 06/24 Specimen Typ e: PLASMA [place] AMINOTRANS /2021 No comment en zach. IS [facility] FERASE Ordering Provid er: JAYDE MENDOZA [ENZYMATIC Report Relea sed Date/Time: Jun 24, 2022 08:09 PM ACTIVITY/V Reporting La b: [facility] OLUME] IN [address] [facility] [address] SERUM OR Performing Lab : [facility] PLASMA [place] [address] POTASSIU POTASSIUM 4.9 3.5 - 5.1 06/24 Specimen Ty pe: PLASMA [place] M [MOLES/VOL /2021 No comment en terhernando. IS [facility] UME] IN Ordering Provid er: JAYDE MENDOZA SERUM OR Report Release d Date/Time: Jun 24, 2022 08:09 PM PLASMA Reporting Lab: [facility] [place] [address] Performing Lab: [facility] [address] [facility] [address] PROTEIN, PROTEIN 6.8 6.0 - 8.3 06/24 Specimen Type : PLASMA [place] TOTAL [MASS/VOLU /2021 No comment en terhernando. IS [facility] ME] IN Ordering Provid er: JAYDE MENDOZA SERUM OR Report Release d Date/Time: Jun 24, 2022 08:09 PM PLASMA Reporting Lab: [facility] [address] [facility] [address] Performing Lab: [facility] [place] [address] PROTHROM INR IN 1.1 0.8 - 1.1 06/24 Specimen Type : PLASMA [place] BIN PLATELET /2021 No comment ente red. IS [facility] TIME/INR POOR Ordering Provi maria: JAYDE MENDOZA PLASMA BY Report Releas ed Date/Time: Jun 24, 2022 06:55 PM COAGULATIO Reporting La b: [facility] N ASSAY [place] [address] Performing Lab: [facility] [place] [address] PROTHROM PROTHROMBI 12.1 9.4 - 12.5 06/24 Specimen Type: PLASMA [place] BIN N TIME /2021 No comment enter ed. IS [facility] TIME/INR (PT) Ordering Provi maria: JAYDE MENDOZA Report Released Date/Time: Jun 24, 2022 06:55 PM Reporting Lab: [facility] [place] [address] Performing Lab: [facility] [place] [address] COVID-19 SARS-COV-2 Not 06/24 Specimen Typ e: NASOPHARYNGEAL [place] DIAGNOST (COVID-19) Detected /2021 Comment: C epheid GeneXpert (618) IS [facility] IC PANEL RNA Ordering Provi maria: JAYDE MENDOZA (CEPHEID [[place]] Report Rele ased Date/Time: Jun 24, 2022 06:55 PM ) IN Reporting Lab: [facility] RESPIRATOR [address] [facility] [address] Y SPECIMEN Performing L ab: [facility] BY DESTINY [place] [address] WITH PROBE DETECTION CBC & LEUKOCYTES 9.67 4.0 - 11.0 06/24 Specimen T ype: BLOOD [place] DIFF [#/VOLUME] /2021 Comment: Clu mped Platelets. Invitro artefact. No clinical significance. Platelet count may be higher than stated value. Plt count = 214 K-cmm Manual Differential Performed IS [facility] IN BLOOD Ordering Provi maria: JAYDE MENDOZA BY Report Released Date/Time: Jun 24, 2022 06:55 PM AUTOMATED Reporting Lab : [facility] COUNT [place] [address] Performing Lab: [facility] [place] [address] CBC & ERYTHROCYT 3.36 4.6 - 6.2 08/08 L Specimen Ty pe: BLOOD [place] DIFF ES /2021 Comment: Clumpe d Platelets. Invitro artefact. No clinical significance. Platelet count may be higher than stated value. Plt count = 214 K- cmm Manual Differential Performed IS [facility] [#/VOLUME] Ordering Pro vider: JAYDE MENDOZA IN BLOOD Report Release d Date/Time: Jun 24, 2022 06:55 PM BY Reporting Lab: [facility] AUTOMATED [facility] [address] COUNT Performing Lab: [facility] [address] [facility] [address] CBC & HEMOGLOBIN 12.0 13.5 - 08/08 L Specimen Type : BLOOD [place] DIFF [MASS/VOLU 17.9 /2021 Comment: Clu mped Platelets. Invitro artefact. No clinical significance. Platelet count may be higher than stated value. Plt count = 214 K-cmm Manual Differential Performed IS [facility] ME] IN Ordering Provid er: JAYDE MENDOZA BLOOD Report Released Date/Time: Jun 24, 2022 06:55 PM Reporting Lab: [facility] [address] [facility] [address] Performing Lab: [facility] [address] [facility] [address] CBC & HEMATOCRIT 35.9 41 - 54 /08 L Specimen Type : BLOOD [place] DIFF [VOLUME /2021 Comment: Clumpe d Platelets. Invitro artefact. No clinical significance. Platelet count may be higher than stated value. Plt count = 214 K-cmm Manual Differential Performed IS [facility] FRACTION] Ordering Prov ider: JAYDE MENDOZA OF BLOOD Report Release d Date/Time: Jun 24, 2022 06:55 PM BY Reporting Lab: [facility] AUTOMATED [facility] [address] COUNT Performing Lab: [facility] [address] [facility] [address] CBC & MCV 106.8 80 - 100 / H Specimen Type: BLOOD [place] DIFF [ENTITIC /2021 Comment: Clump ed Platelets. Invitro artefact. No clinical significance. Platelet count may be higher than stated value. Plt count = 214 K-cmm Manual Differential Performed IS [facility] VOLUME] BY Ordering Pro vider: JAYDE MENDOZA AUTOMATED Report Releas ed Date/Time: Jun 24, 2022 06:55 PM COUNT Reporting Lab: [facility] [address] [place] [address] Performing Lab: [facility] [address] [place] [address] CBC & MCH 35.7 27 - 33 06/24 H Specimen Type: B LOOD [place] DIFF [ENTITIC /2021 Comment: Clump ed Platelets. Invitro artefact. No clinical significance. Platelet count may be higher than stated value. Plt count = 214 K-cmm Manual Differential Performed IS [facility] MASS] BY Ordering Provi maria: JAYDE MENDOZA AUTOMATED Report Releas ed Date/Time: Jun 24, 2022 06:55 PM COUNT Reporting Lab: [facility] [address] [place] [address] Performing Lab: [facility] [address] [place] [address] CBC & MCHC 33.4 32.0 - 06/24 Specimen Type: B LOOD [place] DIFF [MASS/VOLU 37.5 /2021 Comment: Clu mped Platelets. Invitro artefact. No clinical significance. Platelet count may be higher than stated value. Plt count = 214 K-cmm Manual Differential Performed IS [facility] ME] BY Ordering Provid er: JAYDE MENDOZA AUTOMATED Report Rele ed Date/Time: Jun 24, 2022 06:55 PM COUNT Reporting Lab: [facility] [place] [address] Performing Lab: [facility] [address] [place] [address] CBC & PLATELETS comment 06/24 Specimen Type: BLOOD [place] DIFF [#/VOLUME] /2021 Comment: Clu mped Platelets. Invitro artefact. No clinical significance. Platelet count may be higher than stated value. Plt count = 214 K-cmm Manual Differential Performed IS [facility] IN BLOOD Ordering Provi maria: JAYDE MENDOZA BY Report Released Date/Time: Jun 24, 2022 06:55 PM AUTOMATED Reporting Lab : [facility] COUNT [place] [address] Performing Lab: [facility] [address] [place] [address] CBC & PLATELET canc 06/24 Specimen Type: BLOOD [place] DIFF MEAN /2021 Comment: Clumpe d Platelets. Invitro artefact. No clinical significance. Platelet count may be higher than stated value. Plt count = 214 K- cmm Manual Differential Performed IS [facility] VOLUME Ordering Provid er: JAYDE MENDOZA [ENTITIC Report Release d Date/Time: Jun 24, 2022 06:55 PM VOLUME] IN Reporting La b: [facility] BLOOD BY [address] [place] [address] AUTOMATED Performing La b: [facility] COUNT [address] [place] [address] CBC & NEUTROPHIL 70.7 06/24 Specimen Type : BLOOD [place] DIFF S/ Comment: Clumpe d Platelets. Invitro artefact. No clinical significance. Platelet count may be higher than stated value. Plt count = 214 K- cmm Manual Differential Performed IS [facility] LEUKOCYTES Ordering Pro vider: JAYDE MENDOZA IN BLOOD Report Release d Date/Time: Jun 24, 2022 06:55 PM BY MANUAL Reporting Lab : [facility] COUNT [address] [place] [address] Performing Lab: [facility] [address] [place] [address] CBC & LYMPHOCYTE 16.7 06/24 Specimen Type : BLOOD [place] DIFF S/ Comment: Clumpe d Platelets. Invitro artefact. No clinical significance. Platelet count may be higher than stated value. Plt count = 214 K- cmm Manual Differential Performed IS [facility] LEUKOCYTES Ordering Pro vider: JAYDE MENDOZA IN BLOOD Report Release d Date/Time: Jun 24, 2022 06:55 PM BY MANUAL Reporting Lab : [facility] COUNT [address] [place] [address] Performing Lab: [facility] [address] [place] [address] CBC & ERYTHROCYT 14.0 11.5 - 06/24 Specimen Type : BLOOD [place] DIFF E 14.5 Comment: Clumpe d Platelets. Invitro artefact. No clinical significance. Platelet count may be higher than stated value. Plt count = 214 K- cmm Manual Differential Performed IS [facility] DISTRIBUTI Ordering Pro vider: JAYDE MENDOZA ON WIDTH Report Release d Date/Time: Jun 24, 2022 06:55 PM [RATIO] BY Reporting La b: [facility] [place] [address] COUNT Performing Lab: [facility] [place] [address] CBC & MONOCYTES/ 9.6 06/24 Specimen Type : BLOOD [place] DIFF Comment: Clumpe d Platelets. Invitro artefact. No clinical significance. Platelet count may be higher than stated value. Plt count = 214 K- cmm Manual Differential Performed IS [facility] LEUKOCYTES Ordering Pro vider: JAYDE MENDOZA W IN BLOOD Report Release d Date/Time: Jun 24, 2022 06:55 PM BY Reporting Lab: [facility] AUTOMATED [facility] [address] COUNT Performing Lab: [facility] [address] [facility] [address] CBC & EOSINOPHIL 1.5 06/24 Specimen Type : BLOOD [place] DIFF S/ Comment: Clumpe d Platelets. Invitro artefact. No clinical significance. Platelet count may be higher than stated value. Plt count = 214 K- cmm Manual Differential Performed IS [facility] LEUKOCYTES Ordering Pro vider: JAYDE MENDOZA W IN BLOOD Report Release d Date/Time: Jun 24, 2022 06:55 PM BY Reporting Lab: [facility] AUTOMATED [facility] [address] COUNT Performing Lab: [facility] [address] [facility] [address] CBC & METAMYELOC 1.0 06/24 Specimen Type : BLOOD [place] DIFF YTES/ Comment: Clump ed Platelets. Invitro artefact. No clinical significance. Platelet count may be higher than stated value. Plt count = 214 K-cmm Manual Differential Performed IS [facility] LEUKOCYTES Ordering Pro vider: JAYDE MENDOZA W IN BLOOD Report Release d Date/Time: Jun 24, 2022 06:55 PM BY MANUAL Reporting Lab : [facility] COUNT [address] [facility] [address] Performing Lab: [facility] [address] [facility] [address] CBC & MYELOCYTES 0.5 06/24 Specimen Type : BLOOD [place] DIFF / Comment: Clumpe d Platelets. Invitro artefact. No clinical significance. Platelet count may be higher than stated value. Plt count = 214 K- cmm Manual Differential Performed IS [facility] LEUKOCYTES Ordering Pro vider: JAYDE MENDOZA W IN BLOOD Report Release d Date/Time: Jun 24, 2022 06:55 PM BY MANUAL Reporting Lab : [facility] COUNT [place] [address] Performing Lab: [facility] [address] [place] [address] CBC & NORMOCHROM YES 06/24 Specimen Type : BLOOD [place] DIFF IC /2021 Comment: Clumpe d Platelets. Invitro artefact. No clinical significance. Platelet count may be higher than stated value. Plt count = 214 K- cmm Manual Differential Performed IS [facility] [[place]] Ordering Pro vider: JAYDE MENDOZA W IN BLOOD Report Release d Date/Time: Jun 24, 2022 06:55 PM BY LIGHT Reporting Lab: [facility] MICROSCOPY [facility] [address] Performing Lab: [facility] [address] [facility] [address] CBC & MACROCYTES SLIGHT 06/24 Specimen Type : BLOOD [place] DIFF [[place]] /2021 Comment: Clu mped Platelets. Invitro artefact. No clinical significance. Platelet count may be higher than stated value. Plt count = 214 K-cmm Manual Differential Performed IS [facility] IN BLOOD Ordering Provi maria: JAYDE MENDOZA BY LIGHT Report Release d Date/Time: Jun 24, 2022 06:55 PM MICROSCOPY Reporting La b: [facility] [address] [facility] [address] Performing Lab: [facility] [place] [address] CBC & LYMPHOCYTE 1.61 1.0 - 4.0 06/24 Specimen Ty pe: BLOOD [place] DIFF S /2021 Comment: Clumpe d Platelets. Invitro artefact. No clinical significance. Platelet count may be higher than stated value. Plt count = 214 K- cmm Manual Differential Performed IS [facility] [#/VOLUME] Ordering Pro vider: JAYDE MENDOZA W IN BLOOD Report Release d Date/Time: Jun 24, 2022 06:55 PM BY Reporting Lab: [facility] AUTOMATED [facility] [place] [facility] [address] COUNT Performing Lab: [facility] [address] [facility] [address] CBC & MONOCYTES 0.93 0.1 - 1.0 06/24 Specimen Typ e: BLOOD [place] DIFF [#/VOLUME] /2021 Comment: Clu mped Platelets. Invitro artefact. No clinical significance. Platelet count may be higher than stated value. Plt count = 214 K-cmm Manual Differential Performed IS [facility] IN BLOOD Ordering Provi maria: JAYDE MENDOZA BY Report Released Date/Time: Jun 24, 2022 06:55 PM AUTOMATED Reporting Lab : [facility] [place] [address] Performing Lab: [facility] [address] [place] [address] CBC & NEUTROPHIL 6.84 2.0 - 7.7 06/24 Specimen Ty pe: BLOOD [place] DIFF S /2021 Comment: Clumpe d Platelets. Invitro artefact. No clinical significance. Platelet count may be higher than stated value. Plt count = 214 K- cmm Manual Differential Performed IS [facility] [#/VOLUME] Ordering Pro vider: JAYDE MENDOZA IN BLOOD Report Release d Date/Time: Jun 24, 2022 06:55 PM BY Reporting Lab: [facility] AUTOMATED [facility] [place] [facility] [address] COUNT Performing Lab: [facility] [place] [address] CBC & EOSINOPHIL 0.15 0 - 0.5 06/24 Specimen Type : BLOOD [place] DIFF S /2021 Comment: Clumpe d Platelets. Invitro artefact. No clinical significance. Platelet count may be higher than stated value. Plt count = 214 K- cmm Manual Differential Performed IS [facility] [#/VOLUME] Ordering Pro vider: JAYDE MENDOZA IN BLOOD Report Release d Date/Time: Jun 24, 2022 06:55 PM BY Reporting Lab: [facility] AUTOMATED [facility] [place] [facility] [address] COUNT Performing Lab: [facility] [place] [address] CBC & METAMYELOC 0.10 06/24 Specimen Type : BLOOD [place] DIFF YTES /2021 Comment: Clumpe d Platelets. Invitro artefact. No clinical significance. Platelet count may be higher than stated value. Plt count = 214 K- cmm Manual Differential Performed IS [facility] [#/VOLUME] Ordering Pro vider: JAYDE MENDOZA IN BLOOD Report Release d Date/Time: Jun 24, 2022 06:55 PM BY MANUAL Reporting Lab : [facility] [place] [address] Performing Lab: [facility] [place] [address] CBC & MYELOCYTES 0.05 08/08 Specimen Type : BLOOD [place] DIFF [#/VOLUME] /2021 Comment: Clu mped Platelets. Invitro artefact. No clinical significance. Platelet count may be higher than stated value. Plt count = 214 K-cmm Manual Differential Performed IS [facility] IN BLOOD Ordering Provi maria: JAYDE MENDOZA BY MANUAL Report Rele ed Date/Time: Jun 24, 2022 06:55 PM COUNT Reporting Lab: [facility] [place] [address] Performing Lab: [facility] [address] [place] [address] CBC & PLATELETS canc 06/24 Specimen Type: BLOOD [place] DIFF RETICULATE /2021 Comment: Clu mped Platelets. Invitro artefact. No clinical significance. Platelet count may be higher than stated value. Plt count = 214 K-cmm Manual Differential Performed IS [facility] D/100 Ordering Provid er: JAYDE MENDOZA PLATELETS Report Rele ed Date/Time: Jun 24, 2022 06:55 PM IN BLOOD Reporting Lab: [facility] BY [place] [address] AUTOMATED Performing La b: [facility] COUNT [place] [address] CBC & ERYTHROCYT PRESENT 06/24 Specimen Type : BLOOD [place] DIFF E /2021 Comment: Clumpe d Platelets. Invitro artefact. No clinical significance. Platelet count may be higher than stated value. Plt count = 214 K- cmm Manual Differential Performed IS [facility] MORPHOLOGY Ordering Pro vider: JAYDE MENDOZA FINDING Report Released Date/Time: Jun 24, 2022 06:55 PM [IDENTIFIE Reporting La b: [facility] R] [place] [address] BLOOD Performing Lab: [facility] [place] [address] COMPREHE CREATININE 1.3 0.7 - 1.2 06/24 H Specimen T ype: PLASMA [place] NSIVE [MASS/VOLU /2021 Comment: Can cellation reported to: Rajni Giraldo RN on 06/24/22@2004 by [place]. Test result cancelled due to hemolysis interference in sample. IS [facility] METABOLI ME] IN Ordering Provi maria: JAYDE MENDOZA C SERUM OR Report Release d Date/Time: Jun 24, 2022 06:55 PM PANEL+MG PLASMA Reporting Lab: [facility] [place] [address] Performing Lab: [facility] [place] [address] COMPREHE UREA 19 8 - 26 06/24 Specimen Type: PLASMA [place] NSIVE NITROGEN /2021 Comment: Cance llation reported to: Rajni Giraldo RN on 06/24/22@2003 by el. Test result cancelled due to hemolysis interference in sample. IS [facility] METABOLI [MASS/VOLU Ordering Pr ovider: JAYDE MENDOZA W C ME] IN Report Released Date/Time: Jun 24, 2022 06:55 PM PANEL+MG SERUM OR Reporting Lab : [facility] PLASMA [place] [address] Performing Lab: [facility] [place] [address] COMPREHE GLUCOSE 111 74 - 100 08/ H Specimen Type: PLASMA [place] NSIVE [MASS/VOLU /2021 Comment: Can cellation reported to: Rajni Giraldo RN on 06/24/22@2003 by el. Test result cancelled due to hemolysis interference in sample. IS [place] [employer] METABOLI ME] IN Ordering Provi maria: JANNETTE MENDOZAED W C SERUM OR Report Release d Date/Time: Jun 24, 2022 06:55 PM PANEL+MG PLASMA Reporting Lab: [facility] [place] [address] Performing Lab: [facility] [place] [address] COMPREHE SODIUM 133 136 - 145 06/24 L Specimen Type : PLASMA [place] NSIVE [MOLES/VOL /2021 Comment: Can cellation reported to: Rajni Giraldo RN on 06/24/22@2003 by el. Test result cancelled due to hemolysis interference in sample. IS [facility] METABOLI UME] IN Ordering Provi maria: KELLY,JAYDE W C SERUM OR Report Release d Date/Time: Jun 24, 2022 06:55 PM PANEL+MG PLASMA Reporting Lab: [facility] [place] [address] Performing Lab: [facility] [place] [address] COMPREHE POTASSIUM canc 3.5 - 5.1 06/24 Specimen Ty pe: PLASMA [place] NSIVE [MOLES/VOL Comment: Can cellation reported to: Rajni Girlado RN on 06/24/22@2003 by el. Test result cancelled due to hemolysis interference in sample. IS [facility] METABOLI UME] IN Ordering Provi maria: KELLYJAYDE ROBERTSON W C SERUM OR Report Release d Date/Time: Jun 24, 2022 06:55 PM PANEL+MG PLASMA Reporting Lab: [facility] [address] [facility] [address] Performing Lab: [facility] [address] [facility] [address] COMPREHE CHLORIDE 103 98 - 107 06/24 Specimen Type : PLASMA [place] NSIVE [MOLES/VOL Comment: Can cellation reported to: Rajni Giraldo RN on 06/24/22 by el. Test result cancelled due to hemolysis interference in sample. IS [facility] METABOLI UME] IN Ordering Provi maria: JAYDE MENDOZA W C SERUM OR Report Release d Date/Time: Jun 24, 2022 06:55 PM PANEL+MG PLASMA Reporting Lab: [facility] [address] [facility] [address] Performing Lab: [facility] [address] [facility] [address] COMPREHE CARBON 22 22 - 29 06/24 Specimen Type: PLASMA [place] NSIVE Comment: Cance llation reported to: Rajni Giraldo RN on 06/24/22 by el. Test result cancelled due to hemolysis interference in sample. IS [facility] METABOLI TOTAL Ordering Provi maria: JAYDE MENDOZA C [MOLES/VOL Report Relea sed Date/Time: Jun 24, 2022 06:55 PM PANEL+MG UME] IN Reporting Lab: [facility] SERUM [address] Kathya JONES [facility] [address] PLASMA Performing Lab: [facility] [address] [facility] [address] COMPREHE CALCIUM 9.4 8.4 - 10.2 06/24 Specimen Typ e: PLASMA [place] NSIVE [MASS/VOLU Comment: Can cellation reported to: Rajni Giraldo RN on 06/24/22 by el. Test result cancelled due to hemolysis interference in sample. IS [facility] METABOLI ME] IN Ordering Provi maria: JAYDE MENDOZA SERUM OR Report Release d Date/Time: Jun 24, 2022 06:55 PM PANEL+MG PLASMA Reporting Lab: [facility] [place] [address] Performing Lab: [facility] [address] [place] [address] COMPREHE PROTEIN canc 6.0 - 8.3 06/24 Specimen Type : PLASMA [place] NSIVE [MASS/VOLU /2021 Comment: Can cellation reported to: Rajni Giraldo RN on 06/24/22@2003 by el. Test result cancelled due to hemolysis interference in sample. IS [facility] METABOLI ME] IN Ordering Provi maria: JAYDE MENDOZA SERUM OR Report Release d Date/Time: Jun 24, 2022 06:55 PM PANEL+MG PLASMA Reporting Lab: [facility] [place] [address] Performing Lab: [facility] [place] [address] COMPREHE ALBUMIN 3.9 3.5 - 5.2 06/24 Specimen Type : PLASMA [place] NSIVE [MASS/VOLU /2021 Comment: Can cellation reported to: Rajni Giraldo RN on 06/24/22@2003 by el. Test result cancelled due to hemolysis interference in sample. IS [facility] METABOLI ME] IN Ordering Provi maria: JAYDE MENDOZA SERUM OR Report Release d Date/Time: Jun 24, 2022 06:55 PM PANEL+MG PLASMA Reporting Lab: [facility] [address] [place] [address] Performing Lab: [facility] [place] [address] COMPREHE BILIRUBIN. 0.2 0.2 - 1.2 06/24 Specimen T ype: PLASMA [place] NSIVE TOTAL /2021 Comment: Cancel lation reported to: Rajni Giraldo RN on 06/24/22@2003 by el. Test result cancelled due to hemolysis interference in sample. IS [facility] [place]I [MASS/VOLU Ordering Pr ovider: JAYDE MENDOZA ME] IN Report Released Date/Time: Jun 24, 2022 06:55 PM PANEL+MG SERUM OR Reporting Lab : [facility] [place] [address] Performing Lab: [facility] [place] [address] COMPREHE MAGNESIUM 2.3 1.6 - 2.6 06/24 Specimen Ty pe: PLASMA [place] NSIVE [MASS/VOLU /2021 Comment: Can cellation reported to: Rajni Giraldo RN on 06/24/22@2003 by el. Test result cancelled due to hemolysis interference in sample. IS [facility] [place] ME] IN Ordering Provi maria: JAYDE MENDOZA SERUM OR Report Release d Date/Time: Jun 24, 2022 06:55 PM PANEL+MG PLASMA Reporting Lab: [facility] [address] [facility] [address] Performing Lab: [facility] [address] [facility] [address] COMPREHE ANION GAP 8 5 - 15 06/24 Specimen Type : PLASMA [place] NSIVE IN SERUM /2021 Comment: Cance llation reported to: Rajni Giraldo RN on 06/24/22@2003 by el. Test result cancelled due to hemolysis interference in sample. IS [facility] [place] OR PLASMA Ordering Pro vider: JAYDE MENDOZA Report Released Date/Time: Jun 24, 2022 06:55 PM PANEL+MG Reporting Lab: [facility] [place] [address] Performing Lab: [facility] [address] [facility] [address] COMPREHE ALKALINE 56 40 - 150 06/24 Specimen Type : PLASMA [place] NSIVE PHOSPHATAS /2021 Comment: Can cellation reported to: Rajni Giraldo RN on 06/24/22@2003 by el. Test result cancelled due to hemolysis interference in sample. IS [facility] [place]I E Ordering Provi maria: JAYDE MENDOZA [ENZYMATIC Report Relea sed Date/Time: Jun 24, 2022 06:55 PM PANEL+MG ACTIVITY/V Reporting L ab: [facility] OLUME] IN [address] [facility] [address] SERUM OR Performing La b: [facility] [address] [facility] [address] COMPREHE ALANINE 20 <55 - 55 06/24 Specimen Type: PLASMA [place] NSIVE AMINOTRANS /2021 Comment: Can cellation reported to: Rajni Giraldo RN on 06/24/22@2003 by el. Test result cancelled due to hemolysis interference in sample. [facility] FERASE Ordering Provi maria: JAYDE MENDOZA [ENZYMATIC Report Relea sed Date/Time: Jun 24, 2022 06:55 PM PANEL+MG ACTIVITY/V Reporting L ab: [facility] OLUME] IN [facility] [address] SERUM OR Performing Lab : [facility] [address] [facility] [address] COMPREHE ASPARTATE canc <34 - 34 06/24 Specimen Typ e: PLASMA [place] NSIVE AMINOTRANS /2021 Comment: Can cellation reported to: Rajni Giraldo RN on 06/24/22@2003 by el. Test result cancelled due to hemolysis interference in sample. [place] [facility] [place] FERASE Ordering Provi maria: JAYDE MENDOZA [ENZYMATIC Report Relea sed Date/Time: Jun 24, 2022 06:55 PM PANEL+MG ACTIVITY/V Reporting L ab: [facility] OLU[facility]] IN [facility] [address] SERUM OR Performing Lab : [facility] [address] [facility] [address] COMPREHE GLOMERULAR 58 60 06/24 L Specimen Typ e: PLASMA [place] NSIVE FILTRATION /2021 Comment: Can cellation reported to: Rajni Giraldo RN on 06/24/22@2003 by el. Test result cancelled due to hemolysis interference in sample. [place] [facility] [place] RATE/1.73 Ordering Pro vider: JAYDE MENDOZA SQ Report Released Date/Time: Jun 24, 2022 06:55 PM PANEL+MG M.PREDICTE Reporting L ab: [facility] D [VOLUME [facility] [address] RATE/AREA] Performing L ab: [facility] IN SERUM, [facility] [address] PLASMA OR BLOOD BY CREATININE -BASED FORMULA (CKD-EPI) COMPREHE CREATININE 1.2 0.7 - 1.2 05/15 Specimen T ype: PLASMA [place] NSIVE [MASS/VOLU /2021 No comment en tered. [place] [facility] [place] ME] IN Ordering Provi maria: ROSY FAITH SERUM OR Report Release d Date/Time: April 11, 2022 12:04 PM PANEL+MG PLASMA Reporting Lab: [facility] [address] [facility] [address] Performing Lab: [facility] [address] [facility] [address] COMPREHE UREA 25 8 - 26 05/15 Specimen Type: PLASMA [place] NSIVE No comment ente red. IS [facility] MET[place]I [MASS/VOLU Ordering Pr ovider: ROSY FAITH] IN Report Released Date/Time: April 11, 2022 12:04 PM PANEL+MG SERUM OR Reporting Lab : [facility] [address] [facility] [address] Performing Lab: [facility] [address] [facility] [address] COMPREHE GLUCOSE 105 74 - 100 05/15 H Specimen Type: PLASMA [place] NSIVE [MASS/VOLU /2021 No comment en tered. IS [facility] [place] ME] IN Ordering Provi maria: ROSY FAITH SERUM OR Report Release d Date/Time: April 11, 2022 12:04 PM PANEL+MG PLASMA Reporting Lab: [facility] [address] [facility] [address] Performing Lab: [facility] [address] [facility] [address] COMPREHE SODIUM 139 136 - 145 05/15 Specimen Type : PLASMA [place] NSIVE [MOLES/VOL No comment en tered. IS [facility] [place] UME] IN Ordering Provi maria: ROSY FAITH SERUM OR Report Release d Date/Time: April 11, 2022 12:04 PM PANEL+MG PLASMA Reporting Lab: [facility] [address] [facility] [address] Performing Lab: [facility] [address] [facility] [address] COMPREHE POTASSIUM 4.7 3.5 - 5.1 05/15 Specimen Ty pe: PLASMA [place] NSIVE [MOLES/VOL /2021 No comment en tered. IS [facility] [place] UME] IN Ordering Provi maria: ROSY FAITH SERUM OR Report Release d Date/Time: April 11, 2022 12:04 PM PANEL+MG PLASMA Reporting Lab: [facility] [address] [facility] [address] Performing Lab: [facility] [address] [facility] [address] COMPREHE CHLORIDE 104 98 - 107 05/15 Specimen Type : PLASMA [place] NSIVE [MOLES/VOL /2021 No comment en tered. IS [facility] [place] UME] IN Ordering Provi maria: ROSY FAITH SERUM OR Report Release d Date/Time: April 11, 2022 12:04 PM PANEL+MG PLASMA Reporting Lab: [facility] [address] [facility] [address] Performing Lab: [facility] [address] [facility] [address] COMPREHE CARBON 26 - 05/15 Specimen Type: PLASMA [place] NSIVE No comment ente red. [place] [facility] [place] TOTAL Ordering Provi maria: ROSY FAITH [MOLES/VOL Report Relea sed Date/Time: April 11, 2022 12:04 PM PANEL+MG UME] IN Reporting Lab: [facility] SERUM OR [facility] [address] PLASMA Performing Lab: [facility] [address] [facility] [address] COMPREHE CALCIUM 9.5 8.4 - 10.2 05/15 Specimen Typ e: PLASMA [place] NSIVE [MASS/VOLU /2021 No comment en tered. IS [facility] [place] ME] IN Ordering Provi maria: ROSY FAITH SERUM OR Report Release d Date/Time: April 11, 2022 12:04 PM PANEL+MG PLASMA Reporting Lab: [facility] [address] [facility] [address] Performing Lab: [facility] [address] [facility] [address] COMPREHE PROTEIN 7.2 6.0 - 8.3 05/15 Specimen Type : PLASMA [place] NSIVE [MASS/VOLU No comment en tered. IS [facility] MET[place] ME] IN Ordering Provi maria: ROSY FAITH SERUM OR Report Release d Date/Time: April 11, 2022 12:04 PM PANEL+MG PLASMA Reporting Lab: [facility] [address] [facility] [address] Performing Lab: [facility] [address] [facility] [address] COMPREHE ALBUMIN 4.2 3.5 - 5.2 05/15 Specimen Type : PLASMA [place] NSIVE [MASS/VOLU /2021 No comment en tered. [place] [facility] [place]] IN Ordering Provi maria: ROSY FAITH SERUM OR Report Release d Date/Time: April 11, 2022 12:04 PM PANEL+MG PLASMA Reporting Lab: [facility] [address] [facility] [address] Performing Lab: [facility] [address] [facility] [address] COMPREHE BILIRUBIN. 0.5 0.2 - 1.2 05/15 Specimen T ype: PLASMA [place] NSIVE TOTAL /2021 No comment enter ed. IS [facility] [place]I [MASS/VOLU Ordering Pr ovider: ROSY FAITH ME] IN Report Released Date/Time: April 11, 2022 12:04 PM PANEL+MG SERUM OR Reporting Lab : [facility] PL[facility] [address] [facility] [address] Performing Lab: [facility] [address] [facility] [address] COMPREHE MAGNESIUM 1.8 1.6 - 2.6 05/15 Specimen Ty pe: PLASMA [place] NSIVE [MASS/VOLU /2021 No comment en tered. IS [facility] MET[place] ME] IN Ordering Provi maria: ROSY FAITH SERUM OR Report Release d Date/Time: April 11, 2022 12:04 PM PANEL+MG PLASMA Reporting Lab: [facility] [address] [place] [facility] [address] Performing Lab: [facility] [address] [place] [facility] [address] COMPREHE ANION GAP 9 5 - 15 05/15 Specimen Type : PLASMA [place] NSIVE IN SERUM /2021 No comment ente red. IS [facility] METABOLI OR PLASMA Ordering Pro vider: ROSY FAITH Report Released Date/Time: April 11, 2022 12:04 PM PANEL+MG Reporting Lab: [facility] [address] [place] [facility] [address] Performing Lab: [facility] [address] [place] [facility] [address] COMPREHE ALKALINE 55 40 - 150 05/15 Specimen Type : PLASMA [place] NSIVE PHOSPHATAS /2021 No comment en tered. IS [facility] METABOLI E Ordering Provi maria: ROSY FAITH [ENZYMATIC Report Relea sed Date/Time: April 11, 2022 12:04 PM PANEL+MG ACTIVITY/V Reporting L ab: [facility] OLUME] IN [facility] [address] SERUM OR Performing Lab : [facility] PL[facility] [address] [place] [facility] [address] COMPREHE ALANINE 19 <55 - 55 05/15 Specimen Type: PLASMA [place] NSIVE AMINOTRANS No comment en tered. IS [facility] [place] FERASE Ordering Provi maria: ROSY FAITH [ENZYMATIC Report Relea sed Date/Time: April 11, 2022 12:04 PM PANEL+MG ACTIVITY/V Reporting L ab: [facility] O[facility]] IN [facility] [address] SERUM OR Performing Lab : [facility] [address] [place] [facility] [address] COMPREHE ASPARTATE 28 <34 - 34 05/15 Specimen Typ e: PLASMA [place] NSIVE AMINOTRANS No comment en [place]red. [place] [facility] [place] FERASE Ordering Provi maria: ROSY FAITH [ENZYMATIC Report Relea sed Date/Time: April 11, 2022 12:04 PM PANEL+MG ACTIVITY/V Reporting L ab: [facility] OLUME] IN [facility] [address] SERUM OR Performing Lab : [facility] PL[facility] [address] [place] [facility] [address] COMPREHE CREAT 63 60 05/15 Specimen Type: PLASMA [place] NSIVE EGFR(CKD-E No comment en tered. IS [facility] MET[place]I PI) Ordering Provi maria: ROSY FAITH Report Released Date/Time: April 11, 2022 12:04 PM PANEL+MG Reporting Lab: [facility] [address] [place] [facility] [address] Performing Lab: [facility] [address] [place] [facility] [address] TSH THYROTROPI 3.03 0.35 - 05/15 Specimen Type : PLASMA [place] W/REFLEX N 4.94 No comment ente red. IS [facility] TO FREE [UNITS/VOL Ordering Pro vider: ROSY FAITH T4 UME] IN Report Released Date/Time: April 11, 2022 12:04 PM SERUM OR Reporting Lab: [facility] [address] [place] [facility] [address] Performing Lab: [facility] [address] [place] [facility] [address] Vital Signs Combined list of inpatient and outpatient Vital Signs from Department of Defense and Veterans Affairs, ranging from 12 months to all on record, depending upon the facility. Vital Sign Value Date Comments Source SYSTOLIC BLOOD PRESSURE 132 06/25/2022 01:05:00 [place] [facility] DIASTOLIC BLOOD PRESSURE 85 06/25/2022 01:05:00 [facility] PULSE OXIMETRY 94% 06/25/2022 01:05:00 [place] [facility] TEMPERATURE 98.2 06/25/2022 01:05:00 [place] [facility] PULSE 59 06/25/2022 01:05:00 [place] [facility] [facility] SYSTOLIC BLOOD PRESSURE 99 06/24/2022 18:00:00 [place] [facility] DIASTOLIC BLOOD PRESSURE 64 06/24/2022 18:00:00 [place] [facility] PAIN 8 06/24/2022 18:00:00 [place] [facility] TEMPERATURE 97.5 06/24/2022 18:00:00 [place] [facility] [facility] PULSE 69 06/24/2022 18:00:00 [place] [facility] [facility] RESPIRATION 15 06/24/2022 18:00:00 [place] [facility] SYSTOLIC BLOOD PRESSURE 120 05/15/2022 12:50:41 [place] [facility] DIASTOLIC BLOOD PRESSURE 77 05/15/2022 12:50:41 [place] [facility] PULSE OXIMETRY 94% 05/15/2022 12:50:41 [place] [facility] WEIGHT 123.9 05/15/2022 12:50:41 [place] [facility] BMI 23kg/m2 05/15/2022 12:50:41 [place] [facility] [facility] PAIN 0 05/15/2022 12:50:41 [place] [facility] HEIGHT 61.811 05/15/2022 12:50:41 [place] [facility] [facility] TEMPERATURE 99 05/15/2022 12:50:41 [place] [facility] [facility] PULSE 63 05/15/2022 12:50:41 [place] [facility] [facility] RESPIRATION 16 05/15/2022 12:50:41 [place] [facility] [facility] SYSTOLIC BLOOD PRESSURE 131 04/12/2022 08:13:02 [place] [facility] DIASTOLIC BLOOD PRESSURE 82 04/12/2022 08:13:02 [place] [facility] PULSE OXIMETRY 93% 04/12/2022 08:13:02 [place] [facility] WEIGHT 122.1 04/12/2022 08:13:02 [place] [facility] [facility] BMI 22kg/m2 04/12/2022 08:13:02 [place] [facility] [facility] PAIN 0 04/12/2022 08:13:02 [place] [facility] [facility] TEMPERATURE 98.5 04/12/2022 08:13:02 [place] [facility] [facility] PULSE 100 04/12/2022 08:13:02 [place] [facility] RESPIRATION 18 04/12/2022 08:13:02 [place] [facility] SYSTOLIC BLOOD PRESSURE 135 04/10/2022 10:58:06 [place] [facility] DIASTOLIC BLOOD PRESSURE 84 04/10/2022 10:58:06 [facility] PULSE OXIMETRY 96% 04/10/2022 10:58:06 [place] [facility] WEIGHT 120.9 04/10/2022 10:58:06 [place] [facility] [facility] BMI 22kg/m2 04/10/2022 10:58:06 [place] [facility] TEMPERATURE 98.7 04/10/2022 10:58:06 [place] [facility] [facility] PULSE 76 04/10/2022 10:58:06 [place] [facility] RESPIRATION 20 04/10/2022 10:58:06 [place] [facility] Encounters Combined list of: 1) Encounters from Department of Veterans Affairs facilities going back up to the last 18 months, not all VA inpatient encounters are included; 2) Encounters from the Department of Defense facilities going back up to 280 months. Location Location Encounter Encounter Reason Attending ADM DC Stat us Disposition Source Details Type Number For Provider Date Date Visit ADM 11827-2.61 Diagnos JODI ZAIDI 01/12 [place] SARSCOV2 [id number] is: NE [place] [facility] A 30MCG/0.3M 11 ICD-10- CBOC L 1ST CM Z23 Encount er for immuniz ation<b r/>with Provide r Comment s: Encount er for Immuniz ation OFFICE O/P 52475-2.61 Diagnos [place] 01/12 [place] EST MOD [id number] is: RRY [place] [facility] 30-39 MIN ICD-10- HCS CM M05.9 Rheumat oid arthrit is with rheumat oid factor, unspeci fied
with Provide r Comment s: Seropos itive Rheumat oid arthrit is ADM 04794-1 Diagnos JHONNY 01/31 [place] SARSCOV2 [id number] is: ,LAUREN [place] 30MCG/0.3M ICD-10- M HCS L 2ND CM Z23 Encount er for immuniz ation<b r/>with Provide r Comment s: Encount er for Immuniz ation Outpatient 99465-603/19 [place] Encounter [id number] [facility] OFFICE O/P Diagnos [place], 03/20 [place] EST MOD [id number] is: RRY [place] 30-39 MIN ICD-10- HCS CM L40.50 Arthrop athic psorias is, unspeci fied
with Provide r Comment s: Psoriat ic arthrit is OFFICE O/P Diagnos [facility], 06/01 [place] EST MOD [id number] is: RRY A [place] [facility] 30-39 MIN ICD-10- HCS CM M06.9 Rheumat oid arthrit is, unspeci fied
with Provide r Comment s: Seropos itive rheumat oid arthrit is (SCT [id number] 05) Outpatient 77218-8.06/01 [place] Encounter [id number] [facility] OFFICE O/P Diagnos MARYELLEN LEON 06/01 [place] EST LOW [id number] is: H [place] [facility] 20-29 MIN ICD-10- HCS CM I25.10 Athscl heart disease [place] coronar y artery w/o ang pctrs<b r/>with Provide r Comment s: CAD - Coronar y artery disease (SCT [id number] 8) Outpatient [id number] Yasmeen CHASE 06/13 [place] Encounter [id number] ERRY [facility] OFFICE O/P Diagnos [place], 06/19 [place] EST MOD [id number] is: RRY [place] [facility] 30-39 MIN ICD-10- HCS CM M06.9 Rheumat oid arthrit is, unspeci fied
with Provide r Comment s: Seropos itive rheumat oid arthrit is ([facility] [id number] 05) Outpatient 06010-0.61 06/19 [place] Encounter [id number] /2021 [place] [facility] OFFICE O/P 38769-4.61 Diagnos SCHEBARBIER,R 07/11 [place] EST MOD [id number] is: H[place]EN [facility] [facility] 30-39 MIN ICD-10- HCS CM H25.13 Age-rel ated nuclear catarac t, bilater al
with Provide r Comment s: Age-rel ated nuclear catarac t, bilater al Outpatient [id number] 07/31 [place] Encounter [id number] [facility] OFFICE O/P 44281-9 Diagnos [place],JE 09/28 [place] EST MOD [id number] is: RRY [place] 30-39 MIN ICD-10- HCS CM M06.9 Rheumat oid arthrit is, unspeci fied
with Provide r Comment s: Seropos itive rheumat oid arthrit is ([facility] [id number] ) ADM 59110-0.61 Diagnos HUDLOW,TRISTON 09/28 [place] SARSCOV2 [id number] is: ECCA [facility] [facility] 30MCG/0.3M ICD-10- HCS L BST CM Z23 Encount er for immuniz ation<b r/>with Provide r Comment s: Encount er for Immuniz ation Outpatient 47076-0.61 11/17 [place] Encounter [id number] /2022 [place] [facility] Outpatient 55046-4.61 11/20 [place] Encounter [id number] [place] [facility] Outpatient 00661-6.61 11/20 [place] Encounter [id number] [place] [facility] Outpatient 63021-9.61 Yasmeen CHASE 11/20 [place] Encounter [id number] ERR [facility] Outpatient 87393-4.61 12/06 [place] Encounter [id number] /2021 [facility] EMERGENCY 51376-8.61 Diagnos 01/07 [place] DEPT VISIT [id number] is: /2021 [facility] ICD-10- HCS CM K02.9 Dental caries, unspeci fied
with Provide r Comment s: Dental Caries, unspeci fied OFFICE O/P 70808-0.61 Diagnos [place], 01/11 [place] EST MOD [id number] is: RRY A [facility] 30-39 MIN ICD-10- HCS CM M06.9 Rheumat oid arthrit is, unspeci fied
with Provide r Comment s: Seropos itive rheumat oid arthrit is ([facility] [id number] 05) Outpatient 86244-3.61 04/ [place] Encounter [id number] /2021 [facility] Outpatient 90358-0.61 CHRISTLE,T 02/17 [place] Encounter [id number] ERRY [facility] Outpatient 72485-0.61 CHRISTLE,T 02/18 [place] Encounter [id number] ERR [facility] Outpatient 14160-5.61 02/21 [place] Encounter [id number] /2021 [facility] Outpatient 13384-3.61 02/26 [place] Encounter [id number] /2021 [facility] OFFICE O/P 04656-8.61 Diagnos LEON03/05 [place] EST LOW [id number] is: [facility] 20-29 MIN ICD-10- HCS CM I47.1 Suprave ntricul ar tachyca rdia
with Provide r Comment s: Multifo sergio atrial tachyca rdia (SNOMED CT 2078669 0) ECG 14995-7.61 Diagnos LEON,MARYELLEN 03/12 [place] MONIT/REPR [id number] is: [facility] T UP TO 48 ICD-10- HCS HRS CM Z13.6 Encount er for screeni ng for cardiov ascular disorde rs
with Provide r Comment s: Encount er for Screeni ng for Cardiov ascular Disorde rs Outpatient 15531-7 05/ [place] Encounter [id number] /2022 [facility] [place] 12024-5 05/ [place] Encounter [id number] /2021 [place] [facility] Outpatient 16387-6 RENA,T 03/19 [place] Encounter [id number] ERRY /2021 [facility] Out[facility] 27918-1 05/10 [place] Encounter [id number] /2021 [facility] Out[facility] 65370-5 05/ [place] Encounter [id number] /2021 [facility] [place] 90196-9 05/ [place] Encounter [id number] /2021 [facility] EXT 25147-5.61 Diagnos KIKIBRADL 04/04 [place] ECG>7D<15D [id number] is: EY A [facility] RECORDING ICD-10- HCS CM I48.92 Unspeci fied atrial flutter
Provide r Comment s: Unspeci fied Atrial Flutter Outpatient 77103-904/04 [place] Encounter [id number] /2021 [facility] HCS ELECTROCAR 77747-1 Diagnos AGUILAR,SE 04/10 [place] DIOGRAM [id number] is: [facility] H[facility] CM Z13.6 Encount er for screeni ng for cardiov ascular disorde rs
with Provide r Comment s: Encount er for Screeni ng for Cardiov ascular Disorde rs OFFICE 38452-8 Diagnos AB MARCELL 04/10 [place] CONSULTATI [id number] is: [facility] H[facility] CM I47.1 Suprave ntricul ar tachyca rdia
with Provide r Comment s: Multifo sergio atrial tachyca rdia (SCT [id number]) Outpatient 29197-104/10 [place] Encounter [id number] [facility] OFFICE O/P 64533-7 Diagnos MARYELLEN LEON 04/12 [place] EST SF [id number] is: H /2021 [facility] 10-19 MIN ICD-10- HCS CM I48.0 Paroxys mal atrial fibrill ation<b r/>with Provide r Comment s: Paroxys mal atrial fibrill ation (SCT [id number]) [place] [address]-5 Diagnos ANKIT,KR 04/23 [place] DIG [id number] is: ISTIN Y /2021 [facility] ASSMT&MGMT ICD-10- HCS 21+ CM Z79.01 FPC (curren t) use of anticoa gulants
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
with Provide r Comment s: Other Hemorrh oids Outpatient [id number] 05/07 [place] Encounter [id number] [facility] Outpatient 57852-1 MAYELA MEDEL 05/08 [place] Encounter [id number] [place] [facility] [place] [id number] 05/09 [place] Encounter [id number] [facility] Outpatient [id number]/15 [place] Encounter [id number] [facility] [place] [id number]/15 [place] En[place] [id number] [facility] ELECTROCAR 87935-6 Diagnos CHARLES LOZOYAO 05/15 [place] DIOGRAM [id number] is: [facility] H[facility] CM Z13.6 Encount er for screeni ng for cardiov ascular disorde rs
with Provide r Comment s: Encount er for Screeni ng for Cardiov ascular Disorde rs HEMOGLOBIN [id number] Diagnos ILIANA, 05/15 [place] [id number] is: OBI K /2021 [facility] ICD-10- [facility] CM I48.0 Paroxys mal atrial fibrill ation<b r/>with Provide r Comment s: Paroxys mal atrial fibrill ation ([facility] [id number]) OFFICE O/P [id number] Diagnos MARCELL,AB 05/15 [place] EST MOD [id number] is: BIE L [facility] 30-39 MIN ICD-10- HCS CM I47.1 Suprave ntricul ar tachyca rdia
with Provide r Comment s: Multifo sergio atrial tachyca rdia (SCT [id number]) Outpatient [id number] MIGUEL ÁNGEL 06/01 [place] Encounter [id number] ERICKSON RODRIGUEZ /2021 [facility] Out[facility] 51590-6.61 SA VU 06/19 [place] Encounter [id number] RA R /2021 [facility] Out[place] [id number] 06/21 [place] Encounter [id number] [facility] Outpatient 38699-0.61 SYSTEM,CIS 06/24 [place] Encounter [id number] -ARK /2021 [facility] EMERGENCY 99682-9.61 Diagnos STANISLAW MENDOZA 06/24 [place] DEPT VISIT [id number] is: D W [facility] ICD-10- [facility] CM R62.7 Adult failure to thrive< br/>wit h Provide r Comment s: Adult Failure to Thrive Outpatient [id number] 06/24 [place] Encounter [id number] /2021 [facility] Inpatient [id number] Admit LISA HILLS 06/24 [place] Encounter [id number] Reason: SEIN ISSAK /2021 [facility] REC DC OSH PLACE<b r/> Inpatient [id number] 06/25 06/25 [place] Encounter [id number] /2021 [facility] Inpatient [id number] 06/25 06/25 [place] Encounter [id number] /2021 [facility] Inpatient [id number] 06/25 06/25 [place] Encounter [id number] /2021 [facility] Social History Combined list of available smoking, tobacco, and other social history from [facility]. Social History Type Response Date Comment Source Tobacco smoking [facility] status [facility] History of tobacco [place]-TOBACCO QUIT 1 TO < 03/05/2022 [facility] use 5 YRS History of tobacco [place]-TOBACCO NEVER USED 06/01/2021 [facility] use History of tobacco WI-TOBACCO QUIT < 1 12/31/2019 [place] [facility] use YEAR History of tobacco VA-TOBACCO FORMER USER 03/23/2019 [facility] use History of tobacco CURRENT TOBACCO USER 06/10/2018 M [place] [facility] use History of tobacco INPT TOBACCO COUNSELING 05/10/2018 [facility] use History of tobacco FORMER TOBACCO USE <1Y 08/29/2017 [facility] use History of tobacco INPT TOBACCO COUNSELING 05/26/2017 [facility] use History of tobacco INPT TOBACCO COUNSELING 05/03/2017 [facility] use History of tobacco FORMER TOBACCO USE <1Y 09/18/2016 [facility] use History of tobacco INPT TOBACCO USE - PT 08/10/2016 [facility] use REFUSED History of tobacco INPT TOBACCO COUNSELING 08/01/2016 [facility] use History of tobacco CURRENT TOBACCO USER 02/08/2015 [facility] use History of tobacco CURRENT TOBACCO USER 11/29/2013 [facility] use History of tobacco PATIENT IS TOBACCO USER 11/26/2013 [facility] use History of tobacco CURRENT TOBACCO USER 11/27/2012 [facility] use History of tobacco CURRENT TOBACCO USER 12/27/2011 [facility] use History of tobacco CURRENT TOBACCO USER 01/22/2011 [facility] use History of tobacco CURRENT TOBACCO USER 03/13/2010 [facility] use Plan of Care List of future care activities from [facility] facilities. Additional future care activities may be listed in the Assessment and Plan section. Date/Time Care Activity Care Activity Detail Facility 07/12/2022 AMBULATORY - SURGERY AMBULATORY - SURGERY [facility] Advance Directives List of completed, amended, or rescinded Advance Directives on record at [facility] facilities. An actual copy of the Directive is not included. Date Advance Directive Provider Source 02/25/2018 ADVANCE DIRECTIVE AURORA MORALES [facility] 02/24/2018 ADVANCE DIRECTIVE DISCUSSION AURORA MORALES [facility] 05/26/2017 CLINICAL WARNING MAGO CONTRERAS [facility] 05/03/2017 CLINICAL WARNING SARIAH ENGLE [facility] 08/10/2016 CLINICAL WARNING ISABEL BARCENAS [facility] 08/02/2016 CLINICAL WARNING AURORA ALMAZAN [facility]
--- OUTSIDE RECORDS SUMMARY | 2022-06-25 19:35 | XMS_ITS | Encounter Summary ---
:1950 Author Organization [facility] Address [address] [place] [address] Support Name Relationship Address Phone MADELIN BARILLAS Unavailable [address] [phone] [place] [address] MADELIN BARILLAS Unavailable [address] [phone] [place] [address] DHAVAL BARILLAS Unavailable [address] [place] [address] Insurance Providers: All historical and current Section Date Range: From patient's date of to the date document was created.This section includes the names of all active insurance providers for the patient. Insurance Type of Plan Start of End of Group Member Insurance Policy P elli's Provider Coverage Name Policy Policy Number ID Provider's [place]'s Relationship Coverage Coverage Telephone Name to Policy Number [place] MEDICARE MEDICARE PART Jul 18, PART B [id number] ANNALEE BUSTILLO (WNR) (M) B [id number] [phone] ,[place]I MEDICARE MEDICARE PART Apr 17, PART A [id number] ANNALEE BUSTILLO (WNR) (M) A [id number] ,[place] Selected Encounter This section includes the information on record at MD for the Encounter. Date/Time Encounter Type Encounter Reason Provider Source Description Sep 28, 2021 OFFICE O/P EST RHEUMATOLOGY/ARTH ICD-10-CM M06.9 NAS PERRY 09:30 AM MOD 30-39 MIN RITIS Rheumatoid A arthritis, unspecified with Provider Comments: Seropositive rheumatoid arthritis ([facility] [id number]) E Encounter Template Text not used by MD Assessments - Encounter Diagnoses This section includes the primary and secondary diagnoses documented for the Encounter. Date/Time Primary/Secondary Diagnosis Name Provider Source Diagnosis Oct 02, [address] [facility] 09:13 AM arthritis, A HCS unspecified Oct 02, 2021 SECONDARY Alcohol abuse with NAS PERRY [facility] 09:13 AM unspecified A HCS alcohol-induced disorder Oct 02, 2021 SECONDARY Encounter for SUPRIYA GUTIERREZ V A 09:13 AM immunization ND S HCS Oct 02, 2021 SECONDARY Other technician terminal and repeater NAS PERRY MD 09:13 AM (current) drug A HCS therapy Oct 02, 2021 SECONDARY Pain in right NAS PERRY [place] V A 09:13 AM shoulder A [facility] Plan of Treatment: Future Appointments (+ 6 months) and Future Tests (+/- 45 days) The Plan of Treatment section includes future care activities for the patient from all MD treatmentfacritical access hospitalities. This section includes future appointments and future orders which are active, pending orscheduled.Future Appointments This section includes appointments that were scheduled to occur 6 months from the date of the Encounter, up to a maximum of 20 appointments. The data comes from all MD treatment facilities. Appointment Date/Time Appointment Type Appointment Facili ty Name Nov 20, 2021 06:18 PM AMBULATORY - [facility] Jan 07, 2022 08:46 AM AMBULATORY - [facility] Jan 11, 2022 09:00 AM AMBULATORY - [facility] Jan 11, 2022 10:00 AM AMBULATORY - [facility] Feb 17, 2022 08:09 PM AMBULATORY - [facility] Mar 05, 2022 12:30 PM AMBULATORY [facility] Mar 05, 2022 01:30 PM AMBULATORY - [facility] Mar 12, 2022 11:00 AM AMBULATORY - [facility] March 19, 2022 06:03 PM AMBULATORY - [facility] Lab Results: +/- 30 days of the encounter This section includes the Chemistry and Hematology Lab Results on record with MD for the patient. Radiology Reports and Pathology Reports are provided separately, in subsequent sections.Lab Results This section contains the Chemistry/Hematology Results that were resulted 30 days before or 30 daysafter the date of the Encounter. Date/Time Source Result Type Result - Unit Interpretation Reference Range Comment Sep 28, 2021 [facility] RHEUMATOLOGY CHEM PANEL Spec imen Type: PLASMA 09:18 AM No comment enter ed. Ordering Provid er: TIAGONAS Seymour Report Released Date/Time: Jun 19, 2021 09:41 AM Reporting Lab: [facility] [id number] Performing Lab: [facility] [id number] CREATININE 1.1 0.7-1.2 ALKALINE PHOSPHATASE 76 40-150 ALT/SGPT 24 <55 AST/SGOT 44 H <34 C-REACTIVE PROTEIN 31.53 H <5.00 ESTIMATED GFR(eGFR) 66 >60 Sep 28, 2021 [facility] RHEUMATOLOGY HEME PANEL Spec imen Type: BLOOD 09:18 AM Comment: Emma hernandez Differential Performed Ordering Provid er: NAS PERRY Report Released Date/Time: Jun 19, 2021 09:41 AM Reporting Lab: [facility] [id number] Performing Lab: [facility] [id number] WBC 11.98 H 4.0-11.0 RBC 4.01 L 4.6-6.2 HGB 14.0 13.5-17.9 HCT 41.7 41-54 MCV 104.0 H 80-100 MCH 34.9 H 27-33 MCHC 33.6 32.0-37.5 PLT 243 150-400 MPV 10.2 7.4-10.4 NEUT 62.1 LYMPHS 19.5 MONO 12.2 EOSINO 3.9 BASO 1.1 RDW 13.3 11.5-14.5 ABS LYMPH 2.34 1.0-4.0 ABS MONO 1.46 H 0.1-1.0 ABS NEUT 7.44 2.0-7.7 ABS EOS 0.47 0-0.5 ABS BASO 0.13 0-0.2 IG(META,MYELO,PRO) 1.2 ABS IMMATURE GRAN 0.14 H 0-0.1 SED RATE 14 5-15 Vital Signs: All taken on the encounter date This section contains inpatient and outpatient Vital Signs collected on the date of the Encounter. Date/Time Temperature Pulse Blood Respiratory SP02 Pain Height Weight Marcus dy Source Pressure Rate Mass Index Sep 28, 98.3 F 107 133/87 16 /min 92 % 5 60.63 121.2 23 [place] 2020 09:04 /min mm[Hg] in lb IS [facility] Immunizations: All administered on the encounter date This section contains immunizations associated to the Encounter. Immunization Series Date Issued Reaction Comments INFLUENZA, INJECTABLE, QUADRIVALENT, Sep 28, 2021 PRESERVATIVE FREE Social History: Smoking Status (Most current) and Tobacco Use (All prior to encounter date) This section includes the most current, and the historical, smoking and tobacco-related health factors from the [facility] where the Encounter took place.Current Smoking Status This section includes the most current smoking, or tobacco-related health factor, from the MD facility where the Encounter took place. Date/Time Current Smoking Status Comment Facility Jun 01, 2021 02:00 PM [facility] Tobacco Use History This section includes a history of the smoking, or tobacco- related health factors, that were collected on or before the date of the Encounter. The data comes from the MD facility where the Encounter took place. Date/Time Smoking Status/Tobacco Use Comment [facility] Dec 31, 2019 10:54 AM VA-TOBACCO FORMER USER [place] [facility] Dec 31, 2019 10:54 AM MD-TOBACCO QUIT < 1 YEAR M [facility] March 23, 2019 09:53 AM VA-TOBACCO FORMER USER [place] [facility] March 23, 2019 09:53 AM VA-TOBACCO QUIT < 1 YEAR [facility] Jun 10, 2018 10:00 AM CURRENT TOBACCO USER [place] [facility] May 10, 2018 07:27 PM INPT [facility]BACCO COUNSELING [facility] May 10, 2018 07:27 PM IN[place]ACCO US[place] [facility] Aug 29, 2017 09:55 AM FORMER TOBACCO USE <1Y MIN [facility] May 26, 2017 10:51 PM [facility] May 26, 2017 10:51 PM [place]AC[place] [facility] May 03, 2017 09:34 PM [facility] May 03, 2017 09:34 PM INPT [place]ACCO US[place] [facility] Sep 18, 2016 01:36 PM FORMER TOBACCO USE <1Y MIN [facility] Aug 10, 2016 03:54 PM INPT TOBACCO USE - PT REFUSED [facility] Aug 01, 2016 06:48 PM [facility]ACCO COUNSEL[facility] Aug 01, 2016 06:48 PM INPT [place]ACCO US[place] [facility] Feb 08, 2015 09:57 AM [facility] Nov 29, 2013 10:37 AM CURRENT TOBACCO USER [facility] Nov 26, 2013 11:09 AM PATIENT IS TOBACCO USER ANAID GARCIA [facility] Nov 27, 2012 12:12 PM CURRENT TOBACCO USER [facility] Dec 27, 2011 09:44 AM CURRENT TOBACCO USER [facility] Jan 22, 2011 02:38 PM CURRENT TOBACCO USER [facility] Mar 13, 2010 12:48 PM CURRENT TOBACCO USER [facility] Advance Directives: All historical and current Section Date Range: From patient's date of to the date document was created. This section includes ALL of a patient's completed or amended MD Advance and Rescinded Directives. The entries below indicate that a directive exists for the patient, but an actual copy is not included with this document. The data comes from all MD facilities. Date Advance Directives Provider Source Feb 25, 2018 ADVANCE DIRECTIVE AURORA MORALES [facility] Feb 24, 2018 ADVANCE DIRECTIVE DISCUSSION AURORA MORALES [facility] May 26, 2017 CLINICAL WARNING MAGO CONTRERAS [facility] May 03, 2017 CLINICAL WARNING SARIAH ENGLE [facility] Aug 10, 2016 CLINICAL WARNING ISABEL BARCENAS [facility] Aug 02, 2016 CLINICAL WARNING AURORA ALMAZAN [facility] Encounter Notes: All associated encounter notes This section contains the clinical notes associated to the Encounter. Date/Time Encounter Note(s) Provider Source Sep 28, 2021 05:50 RHEUMATOLOGY ATTENDING NOTE: MARY ANN HOLMAN [facility] PM LOCAL TITLE: RHEUMATOLOGY CLINIC NOTE KIM STANDARD TITLE: RHEUMATOLOGY ATTENDING NOTE DATE OF NOTE: SEP 28, 2021@17:50 ENTRY DATE: SEP 28, 2021@17:50:28 AUTHOR: MARY ANN HOLMAN EXP COSIGNER: URGENCY: STATUS: COMPLETED Rheumatology Clinic Note Chief Complaint: follow up RA History of Present Illness: Mr. Barillas is a 71 yo male with history of rh eumatoid arthritis (+CCP, +RF), HTN, CKD, alcohol use, marijuana use, CAD who presents for follow up of rheumatoid arthritis. Mr. Barillas states he still has some soreness, though it is improved form previous. He has had some ongoing pain in his le ft wrist, and reports new pain in his right shoulder and right elbow since this morning. He denies redness/swelling or increased warmth of his join ts. The patient notes a couple hours of stiffness in the mornings. While he continues on sulfasalazine and prednisone, he states that he was told he was out of Humira refills so has not taken this for about 3 weeks. Allergies: LISINOPRIL (Jun 01, 2021) Current Medications: Active Outpatient Medicatio ns (including Supplies): ACETAMINOPHEN 500MG TAB TAKE TWO TABLETS BY MOUT H FOUR ACTIVE TIMES A DAY NEEDED *NOT TO EXCEED 4000MG IN 24 HOURS* FOR PAIN ADALIMUMAB 40MG/0.8ML INJ PEN KIT INJECT 40 MG U NDER THE ACTIVE SKIN EVERY 2 WEEKS ADALIMUMAB 40MG/0.8ML INJ PEN KIT INJECT 40 MG U NDER THE PENDING SKIN EVERY 2 WEEKS ASPIRIN 81MG EC TAB TAKE ONE TABLET BY MOUTH GISSELLE RY DAY ACTIVE ATORVASTATIN CALCIUM 80MG TAB TAKE ONE-HALF TABL ET BY ACTIVE MOUTH AT BEDTIME FOR CHOLESTEROL REPLACES SIMVA STATIN CARBOXYMETHYLCELLULOSE NA 0.25% OPH SOLN INSTILL 1 DROP IN ACTIVE BOTH EYES FOUR TIMES A DAY CHOLECALCIF 25MCG (D3-1,000UNIT) TAB TAKE ONE TA BLET BY ACTIVE MOUTH EVERY DAY CYANOCOBALAMIN 1000MCG TAB TAKE ONE TABLET BY MO UTH EVERY ACTIVE DAY FLUTICASONE PROP 50MCG 120D NASAL INHL SPRAY 1 S PRAY IN ACTIVE EACH NOSTRIL TWICE A DAY NEEDED FOR RUNNY NO SE USE REGULARLY FOR RELIEF OF ALLERGIES/CONGESTION FOLIC ACID 1MG TAB TAKE ONE TABLET BY MOUTH EVER Y DAY ACTIVE ISOSORBIDE MONONITRATE 60MG SA TAB TAKE ONE TABL ET BY ACTIVE MOUTH EVERY DAY FOR CHEST PAIN LORATADINE 10MG TAB TAKE ONE TABLET BY MOUTH GISSELLE RY DAY FOR ACTIVE ALLERGY SYMPTOMS METOPROLOL TARTRATE 50MG TAB TAKE ONE-HALF TABLE T BY MOUTH ACTIVE TWICE A DAY FOR HEART PANTOPRAZOLE NA 40MG EC TAB TAKE ONE TABLET BY M OUTH EVERY ACTIVE MORNING ONE-HALF HOUR BEFORE EATING TO DECREASE STOMACH ACID TAKE ON AN EMPTY STOMACH, AT LEAST 30 CO NUTES PRIOR TO MEAL PREDNISONE 10MG TAB TAKE ONE TABLET BY MOUTH GISSELLE RY DAY ACTIVE SULFASALAZINE 500MG TAB TAKE TWO TABLETS BY MOUT H TWICE A ACTIVE DAY Review of Systems: Complete ROS reviewed and was negative unless stated in HPI or below Past medical history to include co-morbid medica l problems: Active problems - Computerized Problem List is t he source for the followin. Benign essential hypertension (SNOMED CT 120 1005) 2. Hearing loss * 3. HTN - Hypertension (SNOMED CT 34948629) 4. Hyperlipidemia (SNOMED CT 02549126) 5. Alcohol abuse (SNOMED CT 98431373) 6. Cannabis abuse (SNOMED CT 04633869) 7. Pain in joint involving shoulder region - RIGHT 8. Anemia (SNOMED CT 814983976) 9. Jt Replcmnt Stat, Knee 10. Gastroesophageal reflux disease (SNOMED CT 2 67775719) 11. CAD - Coronary artery disease - s/p stenting 12. Acute non-ST segment elevation myocardial in farction 13. Chronic kidney disease 14. Rib fracture - s/p fall 11/2018, RIGHT rib 15. Pain of right shoulder joint 16. Hand pain 17. Ankle pain 18. Rhinitis 19. Seropositive rheumatoid arthritis Physical Exam: Latest Vital Signs: Pain Score: 5 (09/28/2021 09:04) Temperature: 98.3 F [36.8 C] (09/28/2021 09:04) Pulse: 107 (09/28/2021 09:04) Blood Pressure: 133/87 (09/28/2021 09:04) Weight: 121.2 lb [55.1 kg] (09/28/2021 09:04) Height: 60.63 in [154.0 cm] (09/28/2021 09:04) Pulse Oximetry:92 (09/28/2021 09:04) Exam: General: NAD HEENT: injected sclera Skin: warm, dry, no rashes or nail changes noted Neuro: alert, CN II-XII grossly intact CV: RRR Resp: breath sounds present bilaterally, no whee zing, rales or rhonchi Abdomen: non-distended, non-tender MSK: Shoulders: abduction limited to 45 degrees, forw sheila flexion limited to 50 degrees, synovitis of glenohumeral joint present bilaterally. Right elbow: pain with flexion, synovitis presen t Left elbow: w/o effusion, normal ROM Right wrist: pain with palpation of radial aspec t, extension limited to 10 degrees Left wrist: increased fullness, extension limite d to 10 degrees Right hand: MCPs/PIPs/DIPs without tenderness to palpation, erythema, increased warmth or effusion. Able to make a fis t. Left hand: ~3cm fluid-filled cystic structure do rsum of hand near second MCP. MCPs without tenderness to palpation, erythema, increased warmth or effusion. Bony hypertrophy of PIPs. Unable to make a fist. Ankles, MTPs/PIPs/DIPs without tenderness to pal pation, erythema, increased warmth or effusion. Latest Labs: HGB 14.0 (09/28/21) WBC 11.98 H (09/28/21) PLT 243 (09/28/21) SLT - CCP AB IGG Collection DT Specimen Test Name Result Units Re f Range 01/31/2020 08:51 SERUM !! CCP AB IGG >250 H Unit s Ref: SEE BELOW !! Indicates COMMENTS AVAILABLE...Refer to Inter im Lab Report. YOLIERGREN 14 (09/28/21) C-REACTIVE PROTEIN 31.53 H (09/28/21) CREATININE 1.1 (09/28/21) Assessment and Recommendations: Rheumatoid arthritis (+CCP, +RF) Mr. Barillas appears to have active synovitis t maggi in his bilateral shoulders, left elbow, and bilateral wrists, as well as elevated inflammatory markers (though improved from 06/2021. Suspect th is is in the setting of missed Humira dosing. Discussed the importance o f ongoing use of Humira in addition to sulfasalazine and prednisone. Recomm ended follow up in three months, at which time if the patient is continui ng to improve, will consider spacing appointments to 6 months. -Follow up in three months -Continue adalimumab 40 mg subq [id number], SSA 100 0 mg BID, prednisone 10 mg daily, folic acid Patient seen, examined and discussed with staff Hand Picker Dr. Tiago James Rheumatology Fellow /mikal/ MARY ANN HOLMAN MD RHEUMATOLOGY FELLOW Signed: 09/28/2021 18:07 Receipt Acknowledged By: * AWAITING SIGNATURE * NAS PERRY Sep 28, 2021 09:05 INTERNAL MEDICINE OUTPATIENT NOTE: BERTRAND DEAL [facility] HCS AM LOCAL TITLE: MEDICINE CLINIC NURSING NOTE STANDARD TITLE: INTERNAL MEDICINE OUTPATIENT NOT E DATE OF NOTE: SEP 28, 2021@09:05 ENTRY DATE: SEP 28, 2021@09:05:22 AUTHOR: BERTRAND DEAL EXP COSIGNER: URGENCY: STATUS: COMPLETED MEDICINE CLINIC NURSING NOTE Has ADDENDA * TYPE OF VISIT: Appointment Check In Type of appointment: In-person appointment REASON FOR VISIT: scheduled visit ALLERGIES: LISINOPRIL (Jun 01, 2021) VITAL SIGNS: Blood Pressure: 133/87 (09/28/2021 09:04) Pulse: 107 (09/28/2021 09:04) Respiration: 16 (09/28/2021 09:04) Temperature: 98.3 F [36.8 C] (09/28/2021 09:04) Weight: 121.2 lb [55.1 kg] (09/28/2021 09:04) Height: 60.63 in [154.0 cm] (09/28/2021 09:04) BMI: 23.2 O2 Sat: 92 (09/28/2021 09:04) Pain: 5 (09/28/2021 09:04) PAIN SCREEN: Patient is not having significant pain that the y wish to discuss with their provider today. MEDICATION Over the Counter/Herbal Medications: The patient denies taking any outside medicatio ns or herbals. /mikal/ BERTRAND DEAL LPN, LPN Signed: 09/28/2021 09:06 09/28/2021 ADDENDUM STATUS: COMPLETED Influenza Immunization: The patient was given the influenza VIS which l ists the benefits and side effects of the vaccine and which reviews the ri sks of not receiving the flu vaccine. The VIS was reviewed with the patient and they were given an opportunity to ask questions. The patient was p rovided education on how to decrease the risk of influenza infection inc luding social distancing and use of good hand hygiene. The patient denied an y prior severe reaction to the flu vaccine or its components. The patient gave verbal consent to receive the vaccine. The seasonal influenza vaccine VIS given to the patient: VIS version date Jun. The patient received seasonal influenza vaccine today - Influenza, Quadrivalent preservative free (Afluria) 0.5 ml IM today in Left Deltoid. Tool Sharpener: Elli. Lot # and Expiration Date: Lot#:[id number], EXP :05/16/2022 Administered by protocol/policy Complications: None /mikal/ LOLA WINTER LPN Signed: 09/28/2021 10:23
--- OUTSIDE RECORDS SUMMARY | 2022-06-25 19:35 | XMS_ITS | Encounter Summary ---
:1950 Author Organization [facility] Address [address] [place] [address] Support Name Relationship Address Phone MADELIN MANTILLA Unavailable [phone] [place] [address] MADELIN MANTILLA Unavailable [phone] [place] [address] DHAVAL MANTILLA Unavailable [address] [place] [address] Insurance Providers: All historical and current Section Date Range: From patient's date of to the date document was created.This section includes the names of all active insurance providers for the patient. Insurance Type of Plan Start of End of Group Member Insurance Policy P elli's Provider Coverage Name Policy Policy Number ID Provider's [place]'s Relationship Coverage Coverage Telephone Name to Policy Number [place] MEDICARE MEDICARE PART Jul 18, PART B [id number] ANNALEE BUSTILLO (WNR) (M) B [id number] [phone] ,REGI MEDICARE MEDICARE PART Apr 17, PART A [id number] ANNALEE BUSTILLO (WNR) (M) A [id number] ,REGI Selected Encounter This section includes the information on record at [place] for the Encounter. Date/Time Encounter Type Encounter Reason Provider Source Description Nov 20, 2021 06:18 Outpatient ADMIN PAT BAKARI PATTERSON PM Encounter (MASNONCT) IHE Encounter Template Text not used by [place] Plan of Treatment: Future Appointments (+ 6 months) and Future Tests (+/- 45 days) The Plan of Treatment section includes future care activities for the patient from all [facility] treatment[facility]ilities. This section includes future appointments and future orders which are active, pending orscheduled.Future Appointments This section includes appointments that were scheduled to occur 6 months from the date of the Encounter, up to a maximum of 20 appointments. The data comes from all [place] treatment facilities. Appointment Date/Time Appointment Type Appointment Facili ty Name Jan 07, 2022 08:46 AM AMBULATORY - MEDICINE [facility] Jan 11, 2022 09:00 AM AMBULATORY - MEDICINE [facility] Jan 11, 2022 10:00 AM AMBULATORY - MEDICINE [facility] Feb 17, 2022 08:09 PM AMBULATORY - NONE [facility] Mar 05, 2022 12:30 PM AMBULATORY - NONE [facility] Mar 05, 2022 01:30 PM AMBULATORY - MEDICINE [facility] Mar 12, 2022 11:00 AM AMBULATORY - MEDICINE [facility] March 19, 2022 06:03 PM AMBULATORY - NONE [facility] April 10, 2022 11:00 AM AMBULATORY - MEDICINE [facility] April 10, 2022 11:30 AM AMBULATORY - MEDICINE [facility] April 12, 2022 08:30 AM AMBULATORY - MEDICINE [facility] May 07, 2022 09:00 AM AMBULATORY - MEDICINE [facility] May 15, 2022 10:30 AM AMBULATORY - MEDICINE [facility] May 15, 2022 10:40 AM AMBULATORY - MEDICINE [facility] May 15, 2022 11:30 AM AMBULATORY - MEDICINE [facility] May 15, 2022 01:00 PM AMBULATORY - MEDICINE [facility] May 15, 2022 01:45 PM AMBULATORY - NONE [facility] Social History: Smoking Status (Most current) and Tobacco Use (All prior to encounter date) This section includes the most current, and the historical, smoking and tobacco-related health factors from the [place] facility where the Encounter took place.Current Smoking Status This section includes the most current smoking, or tobacco-related health factor, from the [place] facility where the Encounter took place. Date/Time Current Smoking Status Comment Facility Jun 01, 2021 02:00 PM [place]-TOBACCO [facility] Tobacco Use History This section includes a history of the smoking, or tobacco- related health factors, that were collected on or before the date of the Encounter. The data comes from the [place] facility where the Encounter took place. Date/Time Smoking Status/Tobacco Use Comment Facil ity Dec 31, 2019 10:54 AM VA-TOBACCO FORMER USER [facility] Dec 31, 2019 10:54 AM [place]-TOBACCO QUIT < 1 YEAR [facility] March 23, 2019 09:53 AM VA-TOBACCO FORMER USER [facility] March 23, 2019 09:53 AM VA-TOBACCO QUIT < 1 YEAR M [place] [facility] Jun 10, 2018 10:00 AM CURRENT TOBACCO USER [facility] May 10, 2018 07:27 PM INPT TOBACCO COUNSELING [place] [facility] May 10, 2018 07:27 PM INPT TOBACCO USER [facility] Aug 29, 2017 09:55 AM FORMER TOBACCO USE <1Y [facility] May 26, 2017 10:51 PM INPT TOBACCO COUNSELING [place] [facility] May 26, 2017 10:51 PM INPT TOBACCO USER [facility] [facility] May 03, 2017 09:34 PM INPT TOBACCO COUNSELING [place] [facility] May 03, 2017 09:34 PM INPT TOBACCO USER [facility] Sep 18, 2016 01:36 PM FORMER TOBACCO USE <1Y [facility] Aug 10, 2016 03:54 PM INPT TOBACCO USE - PT REFUSED [facility] Aug 01, 2016 06:48 PM INPT [place]BACCO [place] [facility] Aug 01, 2016 06:48 PM INPT TOBACCO USER [facility] Feb 08, 2015 09:57 AM [facility] Nov 29, 2013 10:37 AM CURRENT [facility]ACCO [facility] Nov 26, 2013 11:09 AM PATIENT IS TOBACCO USER [place] [facility] Nov 27, 2012 12:12 PM CURRENT TOBACCO USER [facility] Dec 27, 2011 09:44 AM CURRENT TOBACCO USER [facility] Jan 22, 2011 02:38 PM CURRENT TOBACCO USER [facility] Mar 13, 2010 12:48 PM CUR[facility] Advance Directives: All historical and current Section Date Range: From patient's date of to the date document was created. This section includes ALL of a patient's completed or amended [place] Advance and Rescinded Directives. The entries below indicate that a directive exists for the patient, but an actual copy is not included with this document. The data comes from all [place] facilities. Date Advance Directives Provider Source Feb 25, 2018 ADVANCE DIRECTIVE AURORA MORALES [facility] Feb 24, 2018 ADVANCE DIRECTIVE DISCUSSION AURORA MORALES [facility] May 26, 2017 CLINICAL WARNING MAGO CONTRERAS [facility] May 03, 2017 CLINICAL WARNING SARIAH ENGLE [facility] Aug 10, 2016 CLINICAL WARNING ISABEL BARCENAS [facility] Aug 02, 2016 CLINICAL WARNING AURORA ALMAZAN [facility] Encounter Notes: All associated encounter notes This section contains the clinical notes associated to the Encounter. Date/Time Encounter Note(s) Provider Source Nov 19, 2021 06:18 PM NONVA NOTE: VAZQUEZ DAVIS [facility] LOCAL TITLE: COMMUNITY CARE-ELZBIETA SELF PRESENTIN G CARE COORD PLAN N STANDARD TITLE: NONVA NOTE DATE OF NOTE: NOV 19, 2021@18:18 ENTRY DATE: NOV 20, 2021@18:18:28 AUTHOR: VAZQUEZ DAVIS EXP COSIGNER: URGENCY: STATUS: COMPLETED COMMUNITY CARE-ELZBIETA SELF PRESENTING CARE CO ORD PLAN NOTE Has ADDENDA Emergency Notification Intake Date Presenting to the Facility: Nov Method of Contact: Notified from [employer] worklist Notification ID: [id number] [facility] Referral #: [facility] Name: Hospital: [facility] - Address: City: [facility] State: Zip Code: Phone : [facility] Point of Contact: Name: Chief complaint: Pretty [place] Primary Diagnosis: Disposition Unknown at time of intake note entry 11/20/2021 TLOTT ? VERIFIED/ MATCHED VET INFO THROUGH [facility]; ENROLLMENT, NSC, P&T, OHI - LOOKED UP ICN & 24MO ? CHECKED CLOSEST FAC ILITY FOR IN NETWORK DETERMINATION & VA AVAILABILITY ? LAYPER SON APPROVED - CLOSED 1701 - PUSHED TO [facility] - EMAIL/FAX SENT TO POC /mikal/ VAZQUEZ DAVIS PATTERN ATTENDANT Signed: 11/20/2021 18:20 Receipt Acknowledged By: 11/22/2021 08:16 /mikal/ BAKARI CHASE RN RCM/CCUM 11/22/2021 ADDENDUM STATUS: COMPLETED Fax sent for records. /mikal/ BAKARI CHASE RN RCM/CCUM Signed: 11/22/2021 08:26 Receipt Acknowledged By: 11/22/2021 11:25 /mikal/ RACHAEL WILD, RN REGISTERED NURSE for HERI BRAUN 11/29/2021 ADDENDUM STATUS: COMPLETED ER [place] 11/19/21 dx chest pain dc to home Information obtained from facility via f ax and sent to [facility] to be scanned into [facility] electronic medical record in [facility] under Documents. PLEASE REVIEW HOSPITAL RECORDS FOR ANY NEE DED FOLLOW UP AND PLACE APPROPRIATE SPECIALTY CONSULTS /mikal/ BAKARI CHASE RN RCM/CCUM Signed: 11/29/2021 08:37 Receipt Acknowledged By: 11/30/2021 09:54 /mikal/ MARYELLEN LEON MD Staff Physician 11/29/2021 11:06 /mikal/ STUART BERNSTEIN RN REGISTERED NURSE for HERI BRAUN 11/30/2021 ADDENDUM STATUS: COMPLETED records from 11/19 reviewed. N o records on 11/21 ED per pt report that he came back to the ED for f/u seen ED [place] on 11/19/2021 for chest pain, s ome shaking. Pt had alcohol (reports couple beers and a pint of whisky every day). ED gave him Ativean, banana bag and fluid. Lactate eleva david at 5 felt to be due to alcohol. Workup revealed alcohol level 0.06, lactate 5.7, WBC 7.89, HB 14.1, Plt 201. Chemistry porfile reportedly unremarkable. Troponin I neg. Covid-19, RSV and flu are all negative. EKG with sinus tach ra 118, no ischemic changes. Dxed copd exacerbation. Pt was given doxy x 7 days and 20m g prednisone bid x 5 days for COPD exacerbation (he did have solu medrol in th e ED) --> sent to be scanned /mikal/ MARYELLEN LEON MD Staff Physician Signed: 11/30/2021 10:03
--- OUTSIDE RECORDS SUMMARY | 2022-06-25 19:35 | XMS_ITS | Encounter Summary ---
:1950 Author Organization [facility] Address [address] [place] [address] Support Name Relationship Address Phone MADELIN MANTILLA Unavailable [address] [phone] [place] [address] MADELIN MANTILLA Unavailable [address] [phone] [place] [address] DHAVAL MANTILLA Unavailable [address] [place] [address] Insurance Providers: All historical and current Section [...] MEDICARE MEDICARE PART Jul 18, PART B [id number] ANNALEE BUSTILLO (WNR) (M) B [id number] [phone] ,[place] MEDICARE MEDICARE PART Apr 17, PART A [id number] ANNALEE BUSTILLO (WNR) (M) A [id number] [id number] ,[place] Selected Encounter This section includes the information on record at [facility] for the Encounter. Date/Time Encounter Type Encounter Reason Provider Source Description Jan 11, 2022 OFFICE O/P EST RHEUMATOLOGY/ARTH ICD-10-CM M06.9 NAS ORDOÑEZ 10:00 AM MOD 30-39 MIN RITIS Rheumatoid A arthritis, unspecified with Provider Comments: Seropositive rheumatoid arthritis ([facility] [id number]) IHE Encounter Template Text not used by [facility] Assessments - Encounter Diagnoses This section includes the primary and secondary diagnoses documented for the Encounter. 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 This section includes future appointments and future orders which are active, pending orscheduled.Future Appointments This section includes appointments that were scheduled to occur 6 months from the date of the Encounter, up to a maximum of 20 appointments. The data comes from all [place] treatment facilities. Appointment Date/Time Appointment Type Appointment Facili ty Name Feb 17, 2022 08:09 PM AMBULATORY - NONE [facility] Mar 05, 2022 12:30 PM AMBULATORY - NONE [facility] Mar 05, 2022 01:30 PM AMBULATORY - MEDICINE [facility] Mar 12, 2022 11:00 AM AMBULATORY - MEDICINE [facility] March 19, 2022 06:03 PM AMBULATORY - NONE [facility] April 10, 2022 11:00 AM AMBULATORY - MEDICINE [facility] April 10, 2022 11:30 AM AMBULATORY - MEDICINE [facility] April 12, 2022 08:30 AM AMBULATORY - MEDICINE [facility] May 07, 2022 09:00 AM AMBULATORY - MEDICINE [facility] May 15, 2022 10:30 AM AMBULATORY - MEDICINE [facility] May 15, 2022 10:40 AM AMBULATORY - MEDICINE [facility] May 15, 2022 11:30 AM AMBULATORY - MEDICINE [facility] May 15, 2022 01:00 PM AMBULATORY - MEDICINE [facility] May 15, 2022 01:45 PM AMBULATORY - NONE [facility] Jun 19, 2022 01:15 PM AMBULATORY - NONE [facility] Jun 24, 2022 05:53 PM AMBULATORY - MEDICINE [facility] Lab Results: +/- 30 days of the encounter This section includes the Chemistry and Hematology Lab Results on record with [facility] for the patient. Radiology Reports and Pathology Reports are provided separately, in subsequent sections.Lab Results This section contains the Chemistry/Hematology Results that were resulted 30 days before or 30 daysafter the date of the Encounter. Date/Time Source Result Type Result - Unit Interpretation Reference Range Comment Jan 11, 2022 [facility] RHEUMATOLOGY CHEM PANEL Spec imen Type: PLASMA 09:15 AM No comment enter ed. Ordering Provid er: NAS ORDOÑEZ Report Released Date/Time: Dec 21, 2021 10:38 AM Reporting Lab: [facility] [id number] Performing Lab: [facility] [id number] CREATININE 1.0 0.7-1.2 ALKALINE PHOSPHATASE 65 40-150 ALT/SGPT 41 <55 AST/SGOT 100 H <34 C-REACTIVE PROTEIN 5.03 H <5.00 ESTIMATED GFR(eGFR) 73 >60 Jan 11, 2022 [facility] RHEUMATOLOGY HEME PANEL Spec imen Type: BLOOD 09:15 AM Comment: Automa david Differential Performed Ordering Provid er: NAS ORDOÑEZ Report Released Date/Time: Dec 21, 2021 10:38 AM Reporting Lab: [facility] [id number] Performing Lab: [facility] [id number] WBC 10.65 4.0-11.0 RBC 3.65 L 4.6-6.2 HGB 13.1 L 13.5-17.9 HCT 38.7 L 41-54 MCV 106.0 H 80-100 MCH 35.9 H 27-33 MCHC 33.9 32.0-37.5 PLT 235 150-400 MPV 10.0 7.4-10.4 NEUT 66.8 LYMPHS 16.9 MONO 9.8 EOSINO 2.3 BASO 1.6 RDW 14.3 11.5-14.5 ABS LYMPH 1.80 1.0-4.0 ABS MONO 1.04 H 0.1-1.0 ABS NEUT 7.12 2.0-7.7 ABS EOS 0.24 0-0.5 ABS BASO 0.17 0-0.2 IG(META,MYELO,PRO) 2.6 ABS IMMATURE GRAN 0.28 H 0-0.1 SED RATE 12 5-15 Vital Signs: All taken on the encounter date This section contains inpatient and outpatient Vital Signs collected on the date of the Encounter. Date/Time Temperature Pulse Blood Respiratory SP02 Pain Height Weight Marcus dy Source Pressure Rate Mass Index Jan 11, 148/96 [facility] 2021 09:54 mm[Hg] [facility] Jan 11, 97.6 F 95 152/92 18 /min 95 % 7 123.8 24 [facility] 2021 09:50 /min mm[Hg] lb [facility] Social History: Smoking Status (Most current) and Tobacco Use (All prior to encounter date) This section includes the most current, and the historical, smoking and tobacco-related health factors from the [facility] where the Encounter took place.Current Smoking Status This section includes the most current smoking, or tobacco-related health factor, from the [facility] facility where the Encounter took place. Date/Time Current Smoking Status Comment Facility Jun 01, 2021 02:00 PM [facility] Tobacco Use History This section includes a history of the smoking, or tobacco- related health factors, that were collected on or before the date of the Encounter. The data comes from the [facility] where the Encounter took place. Date/Time Smoking Status/Tobacco Use Comment [facility] Dec 31, 2019 10:54 AM VA-TOBACCO FORMER USER [place] [facility] Dec 31, 2019 10:54 AM HI-TOBACCO QUIT < 1 YEAR M [facility] March 23, 2019 09:53 AM VA-TOBACCO FORMER USER [facility] March 23, 2019 09:53 AM VA-TOBACCO QUIT < [address] [facility] Jun 10, 2018 10:00 AM CURRENT TOBACCO USER [place] [facility] May 10, 2018 07:27 PM INPT TOBACCO COUNSELING [place] [facility] May 10, 2018 07:27 PM INPT TOBACCO USER [place] [facility] Aug 29, 2017 09:55 AM FORMER TOBACCO USE <1Y [facility] May 26, 2017 10:51 PM INPT TOBACCO COUNSELING [place] [facility] May 26, 2017 10:51 PM INPT TOBACCO USER [place] [facility] May 03, 2017 09:34 PM INPT TOBACCO COUNSELING [place] [facility] May 03, 2017 09:34 PM INPT TOBACCO USER [place] [facility] Sep 18, 2016 01:36 PM FORMER TOBACCO USE <1Y [facility] Aug 10, 2016 03:54 PM INPT TOBACCO USE - PT REFUSED [facility] Aug 01, 2016 06:48 PM INPT TOBACCO COUNSELING ANAID GARCIA [facility] Aug 01, 2016 06:48 PM INPT TOBACCO USER GONZALES LORENZ [facility] Feb 08, 2015 09:57 AM CURRENT TOBACCO USER LAWSON JUAREZS [facility] Nov 29, 2013 10:37 AM CURRENT TOBACCO USER [place] JUAREZS [facility] Nov 26, 2013 11:09 AM PATIENT IS TOBACCO USER ANAID GARCIA [facility] Nov 27, 2012 12:12 PM CURRENT TOBACCO USER [place] ADAME [facility] Dec 27, 2011 09:44 AM CURRENT TOBACCO USER [place] ADAME [facility] Jan 22, 2011 02:38 PM CURRENT TOBACCO USER [place] HUMPHRIESLIS [facility] Mar 13, 2010 12:48 PM CURRENT TOBACCO USER [facility] Advance Directives: All historical and current Section Date Range: From patient's date of to the date document was created. This section includes ALL of a patient's completed or amended [facility] Advance and Rescinded Directives. The entries below indicate that a directive exists for the patient, but an actual copy is not included with this document. The data comes from all [place] facilities. Date Advance Directives Provider Source Feb 25, 2018 ADVANCE DIRECTIVE AURORA MORALES [facility] Feb 24, 2018 ADVANCE DIRECTIVE DISCUSSION AURORA MORALES [facility] May 26, 2017 CLINICAL WARNING MAGO CONTRERAS [facility] May 03, 2017 CLINICAL WARNING SARIAH ENGLE [facility] Aug 10, 2016 CLINICAL WARNING ISABEL BARCENAS [facility] Aug 02, 2016 CLINICAL WARNING AURORA ALMAZAN [facility] Encounter Notes: All associated encounter notes This section contains the clinical notes associated to the Encounter. Date/Time Encounter Note(s) Provider Source Jan 11, 2022 10:10 RHEUMATOLOGY ATTENDING NOTE: JENNA LUIS [facility] AM LOCAL TITLE: RHEUMATOLOGY CLINIC NOTE STANDARD TITLE: RHEUMATOLOGY ATTENDING NOTE DATE OF NOTE: JAN 11, 2022@10:10 ENTRY DATE: JAN 11, 2022@10:10:57 AUTHOR: JENNA LUIS EXP COSIGNER: URGENCY: STATUS: COMPLETED Rheumatology Clinic Note Nurse notes reviewed and agree. Chief Complaint: f/u RA History of Present Illness: Mr. Mantilla is a 71 yo male with history of rh eumatoid arthritis (+CCP, +RF), HTN, CKD, alcohol use, marijuana use, CAD who presents for follow up of rheumatoid arthritis. Last visit: SEP 28, 2021 Interval Hx: Mr Mantilla go t his refills of Humira since our last visit and has been taking q 2 weeks consis tently. He does agree that this has helped with his joint pains. Tolerating inje ction well in legs with no skin site reactions. Also continuing to take the predn isone 10 mg daily and SSZ 1g BID. Morning stiffness lasts around 2 hours. Best time of day at noon. Has improved in ROM of wrists and ability to make a fist. Denies lower extremi ty swelling or arthritis. R shoulder still painful after falling on the ice a couple of years ago. Also experiencing a current cough with white sputum. No fevers or recent hospitalizations. Went to ED yesterday f or a painful tooth and was told to f/u with a dentist in the community. Continues to dr ink about 1/2 pint with a few beers daily. Smokes only marijuana, has quit cig arettes. Allergies: LISINOPRIL (Jun 01, 2021) Current Medications: Active Outpatient Medicatio ns (including Supplies): ACETAMINOPHEN 500MG TAB TAKE TWO TABLETS BY MOUT H FOUR ACTIVE TIMES A DAY NEEDED *NOT TO EXCEED 4000MG IN 24 HOURS* FOR PAIN ADALIMUMAB 40MG/0.8ML INJ PEN KIT INJECT 40 MG U NDER THE ACTIVE SKIN EVERY 2 WEEKS ASPIRIN 81MG EC TAB TAKE ONE TABLET BY MOUTH GISSELLE DAY ACTIVE ATORVASTATIN CALCIUM 80MG TAB TAKE ONE-HALF TABL ET BY ACTIVE MOUTH AT BEDTIME FOR CHOLESTEROL REPLACES SIMVA STATIN CARBOXYMETHYLCELLULOSE NA 0.25% OPH SOLN INSTILL 1 DROP IN ACTIVE BOTH EYES FOUR TIMES A DAY CHOLECALCIF 25MCG (D3-1,000UNIT) TAB TAKE ONE TA BLET BY ACTIVE MOUTH EVERY DAY CYANOCOBALAMIN 1000MCG TAB TAKE ONE TABLET BY MO UTH EVERY ACTIVE (S) DAY FLUTICASONE PROP 50MCG 120D NASAL INHL [...] TAB TAKE ONE TABLET BY MOUTH GISSELLE DAY FOR ACTIVE ALLERGY SYMPTOMS METOPROLOL TARTRATE 50MG TAB TAKE ONE-HALF TABLE T BY MOUTH ACTIVE TWICE A DAY FOR HEART PANTOPRAZOLE NA 40MG EC TAB TAKE ONE TABLET BY M OUTH EVERY ACTIVE MORNING ONE-HALF HOUR BEFORE EATING TO DECREASE STOMACH ACID TAKE ON AN EMPTY STOMACH, AT LEAST 30 DE NUTES PRIOR TO MEAL PREDNISONE 10MG TAB TAKE ONE TABLET BY MOUTH GISSELLE RY DAY ACTIVE SULFASALAZINE 500MG TAB TAKE TWO TABLETS BY MOUT H TWICE A ACTIVE DAY Review of Systems: 10 point ROS otherwise negati ve. Past medical history to include co-morbid medica l problems: Active problems - Computerized Problem List is t he source for the followin. Benign essential hypertension (SNOMED CT 120 1005) 2. Hearing loss * 3. HTN - Hypertension (SNOMED CT 71074291) 4. Hyperlipidemia (SNOMED CT 06522762) 5. Alcohol abuse (SNOMED CT 60354954) 6. Cannabis abuse (SNOMED CT 57121974) 7. Pain in joint involving shoulder region - RIGHT 8. Anemia (SNOMED CT 596365860) 9. Jt Replcmnt Stat, Knee 10. Gastroesophageal reflux disease (SNOMED CT 2 92841576) 11. CAD - Coronary artery disease - s/p stenting 12. Acute non-ST segment elevation myocardial in farction 13. Chronic kidney disease 14. Rib fracture - s/p fall 11/2018, RIGHT rib 15. Pain of right shoulder joint 16. Hand pain 17. Ankle pain 18. Rhinitis 19. Seropositive rheumatoid arthritis Physical Exam: Latest Vital Signs: Pain Score: 7 (01/11/2022 09:50) Temperature: 97.6 F [36.4 C] (01/11/2022 09:50) Pulse: 95 (01/11/2022 09:50) Blood Pressure: 148/96 (01/11/2022 09:54) Weight: 123.8 lb [56.3 kg] (01/11/2022 09:50) Height: 60.63 in [154.0 cm] (09/28/2021 09:04) Pulse Oximetry:95% (01/11/2022 09:50) General: NAD HEENT: EOMI, clear sclera, dental caries through out Skin: warm, dry, no rashes or nail changes noted CV: slightly tachycardic, regular rhythm. Resp: breath sounds present bilaterally, no whee zing, rales or rhonchi Abdomen: non-distended, non-tender MSK: Shoulders: abduction of R shoulder limited to 65 deg, improved to 90 deg with pROM. Full ROM of L shoulder. Elbows bilateral w ith full flexion/extension no pain. Left wrist with restricted extension to 45 deg and slight fullness, not particularly tender. Right wrist with similar fi ndings to left wrist. Able to make fists bilaterally. OA changes to hands as w ell as some swelling to L 2nd PIP and bony hypertrophy of L 4th PIP. Ankles an d MTPs without tenderness or synovitis. Latest Labs: HGB 13.1 L (01/11/22) MCV 106.0 H (01/11/22) WBC 10.65 (01/11/22) PLT 235 (01/11/22) SLT - CCP AB IGG Collection DT Specimen Test Name Result Units Re f Range 01/31/2020 08:51 SERUM !! ZZCCP AB IGG >250 H Un its Ref: SEE BELOW !! Indicates COMMENTS AVAILABLE...Refer to Inter im Lab Report. YLOILUZ 12 (01/11/22) C-RP - 5.02 AST - 100 ALT - 41 Assessment and Recommendations: # Seropositive RA (+CCP, +RF) Mr. Mantilla appears to have improved control o f active RA at this visit. 3 months ago still have evidence of quite active synovitis. Has now consistently taken Humira and this appears to be of significa nt benefit. Unable to utilize MTX due to ongoing Etoh use. Improved ROM and le ss pain on exam. Also with decrease of CRP from 30 --> 5, which is encourag ing. Will continue patient on this regimen. Hesitant to use other biologics gi kaitlyn that TNF with the best safety profile in regards to infection. Will continue current regimen and f/u in 6 months. -Follow up in 6 months w/labs. -Continue adalimumab 40 mg subq l3fomil, SSA 100 0 mg BID, prednisone 10 mg daily, folic acid. Patient seen, examined and discussed with staff [employer]ist[employer] Server Dr. Ordoñez. /mikal/ JENNA LUIS DO RHEUMATOLOGY FELLOW Signed: 01/11/2022 11:33 Receipt Acknowledged By: * AWAITING SIGNATURE * NAS ORDOÑEZ Jan 11, 2022 09:51 INTERNAL MEDICINE OUTPATIENT NOTE: [facility] LOCAL TITLE: MEDICINE CLINIC NURSING NOTE STANDARD TITLE: INTERNAL MEDICINE OUTPATIENT NOT E DATE OF NOTE: JAN 11, 2022@09:51 ENTRY DATE: JAN 11, 2022@09:51:48 AUTHOR: STACEY BARNES EXP COSIGNER: URGENCY: STATUS: COMPLETED TYPE OF VISIT: Appointment Check In Type of appointment: In-person appointment REASON FOR VISIT: follow up ALLERGIES: LISINOPRIL (Jun 01, 2021) VITAL SIGNS: Blood Pressure: 152/92 (01/11/2022 09:50)148/96 pt reports no symptoms. Has BP cuff and has not missed any dos es of BP medication. Pulse: 95 (01/11/2022 09:50) Respiration: 18 (01/11/2022 09:50) Temperature: 97.6 F [36.4 C] (01/11/2022 09:50) Weight: 123.8 lb [56.3 kg] (01/11/2022 09:50) Height: 60.63 in [154.0 cm] (09/28/2021 09:04) BMI: 23.7 O2 Sat: 95% (01/11/2022 09:50) Pain: 7 (01/11/2022 09:50) PAIN SCREEN: Patient is having significant pain that they wo uld like to talk to their provider about today. Acute pain is new pain, which as been present f or less than 6 months Words used to describe pain: other: it just hu rts Number that best describes pain intensity on av erage in the past week: 7 Pain located in the following location(s): neck Pain has been happening for: 1-4 weeks Pain is worse when: other: Pain is better when: medication MEDICATION Over the Counter/Herbal Medications: The patient denies taking any outside medicatio ns or herbals. /es/ STACEY BARNES LPN LPN Signed: 01/11/2022 09:56
--- OUTSIDE RECORDS SUMMARY | 2022-06-25 19:35 | XMS_ITS | Encounter Summary ---
:1950 Author Organization [facility] Address [address] [place] [address] Support Name Relationship Address Phone MADELIN MANTILLA Unavailable [address] [phone] [place] [address] MADELIN MANTILLA Unavailable [address] [phone] [place] [address] DHAVAL MANTILLA Unavailable [address] [place] [address] Insurance Providers: All historical and current Section [...] MEDICARE MEDICARE PART Jul 18, PART B [id number] 800 ANNALEE BUSTILLO (WNR) (M) B 2014A [phone] ,[place] MEDICARE MEDICARE PART Apr 17, PART A [id number] 800 ANNALEE BUSTILLO (WNR) (M) A 2012A [phone] ,[place] Selected Encounter This section includes the information on record at [place] for the Encounter. Date/Time Encounter Type Encounter Reason Provider Source Description Jul 11, 2021 OFFICE O/P EST OPHTHALMOLOGY ICD-10-CM ANGELA JEFFESRON 08:40 AM MOD 30-39 MIN H25.13 A Age-related nuclear cataract, bilateral with Provider Comments: Age-related nuclear cataract, bilateral IHE Encounter Template Text not used by [facility] Assessments - Encounter Diagnoses This section includes the primary and secondary diagnoses documented for the Encounter. Date/Time Primary/Secondary Diagnosis Name Provider Source Diagnosis Jul 11, 2021 PRIMARY Age-related ANGELA JEFFERSON [facility] 09:28 AM nuclear cataract, A [facility] bilateral Jul 11, 2021 SECONDARY Hypermetropia, SCHEURER,ANGELA [facility] 09:28 AM right eye A [facility] Jul 11, 2021 SECONDARY Myopia, left eye SCHEURER,ANGELA [place] 09:28 AM A [facility] Jul 11, 2021 SECONDARY Presbyopia SCHEURER,[facility] 09:28 AM A [facility] Jul 11, 2021 SECONDARY Regular SCHEURER,[facility] 09:28 AM astigmatism, A [facility] bilateral Jul 11, 2021 SECONDARY Unspecified SCHEURER,[facility] 09:28 AM blepharitis left A [facility] lower eyelid Plan of Treatment: Future Appointments (+ 6 months) and Future Tests (+/- 45 days) The Plan of Treatment section includes future care activities for the patient from all [place] treatmentfacilities. This section includes future appointments and future orders which are active, pending orscheduled.Future Appointments This section includes appointments that were scheduled to occur 6 months from the date of the Encounter, up to a maximum of 20 appointments. The data comes from all [place] treatment facilities. Appointment Date/Time Appointment Type Appointment Facili ty Name Sep 28, 2021 08:45 AM AMBULATORY - MEDICINE [facility] Sep 28, 2021 09:30 AM AMBULATORY - [facility] Sep 28, 2021 10:50 AM AMBULATORY - [facility] Nov 20, 2021 06:18 PM AMBULATORY - [facility] Jan 07, 2022 08:46 AM AMBULATORY - [facility] Jan 11, 2022 09:00 AM AMBULATORY - [facility] Jan 11, 2022 10:00 AM AMBULATORY - [facility] Lab Results: +/- 30 days of the encounter This section includes the Chemistry and Hematology Lab Results on record with [place] for the patient. Radiology Reports and Pathology Reports are provided separately, in subsequent sections.Lab Results This section contains the Chemistry/Hematology Results that were resulted 30 days before or 30 daysafter the date of the Encounter. Date/Time Source Result Type Result - Unit Interpretation Reference Range Comment Jun 19, 2021 [facility] RHEUMATOLOGY CHEM PANEL Spec imen Type: PLASMA 07:58 AM No comment enter ed. Ordering Provid er: NAS PERRY Report Released Date/Time: March 20, 2021 09:12 AM Reporting Lab: [facility] CHARU SOLARES [facility] [id number] Performing Lab: [facility] [id number] CREATININE 0.9 0.7-1.2 ALKALINE PHOSPHATASE 77 40-150 ALT/SGPT 10 <55 AST/SGOT 17 <34 C-REACTIVE PROTEIN 44.06 H <5.00 ESTIMATED GFR(eGFR) 83 >60 Jun 19, 2021 [facility] RHEUMATOLOGY HEME PANEL Spec imen Type: BLOOD 07:58 AM Comment: Automgabriella hernandez Differential Performed Ordering Provid er: NAS PERRY Report Released Date/Time: March 20, 2021 09:12 AM Reporting Lab: [facility] [id number] Performing Lab: [facility] [id number] WBC 10.57 4.0-11.0 RBC 3.30 L 4.6-6.2 HGB 11.6 L 13.5-17.9 HCT 34.3 L 41-54 MCV 103.9 H 80-100 MCH 35.2 H 27-33 MCHC 33.8 32.0-37.5 PLT 294 150-400 MPV 8.9 7.4-10.4 NEUT 79.0 LYMPHS 9.7 MONO 8.5 EOSINO 0.7 BASO 0.8 RDW 14.1 11.5-14.5 ABS LYMPH 1.03 1.0-4.0 ABS MONO 0.90 0.1-1.0 ABS NEUT 8.35 H 2.0-7.7 ABS EOS 0.07 0-0.5 ABS BASO 0.08 0-0.2 IG(META,MYELO,PRO) 1.3 ABS IMMATURE GRAN 0.14 H 0-0.1 SED RATE 27 H 5-15 Social History: Smoking Status (Most current) and Tobacco Use (All prior to encounter date) This section includes the most current, and the historical, smoking and tobacco-related health factors from the [place] facility where the Encounter took place.Current Smoking Status This section includes the most current smoking, or tobacco-related health factor, from the [place] facility where the Encounter took place. Date/Time Current Smoking Status Comment Facility Jun 01, 2021 02:00 PM [place]-TOBACCO NEVER USED [facility] Tobacco Use History This section includes a history of the smoking, or tobacco- related health factors, that were collected on or before the date of the Encounter. The data comes from the [place] facility where the Encounter took place. Date/Time Smoking Status/Tobacco Use Comment Facil it Dec 31, 2019 10:54 AM VA-TOBACCO FORMER USER [facility] Dec 31, 2019 10:54 AM VA-TOBACCO QUIT < 1 YEAR M [facility] March 23, 2019 09:53 AM [place]-TOBACCO FORMER USER [facility] March 23, 2019 09:53 AM [place]-TOBACCO QUIT < 1 YEAR M [facility] Jun 10, 2018 10:00 AM CURRENT [facility]AC[facility] May 10, 2018 07:27 PM INPT TOBACCO COUNSELING [place] [facility] May 10, 2018 07:27 PM INPT TOBACCO US[facility] Aug 29, 2017 09:55 AM FORMER TOBACCO USE <1Y [facility] May 26, 2017 10:51 PM [facility] May 26, 2017 10:51 PM [facility] May 03, 2017 09:34 PM [facility] May 03, 2017 09:34 PM INPT [facility]AC[facility] US[facility] Sep 18, 2016 01:36 PM FORMER TOBACCO USE <1Y [facility] Aug 10, 2016 03:54 PM INPT TOBACCO USE - PT REFUSED [facility] Aug 01, 2016 06:48 PM [facility] Aug 01, 2016 06:48 PM INPT [facility]AC[facility] US[facility] Feb 08, 2015 09:57 AM [facility] Nov 29, 2013 10:37 AM CURRENT [facility]AC[facility] Nov 26, 2013 11:09 AM [facility] Nov 27, 2012 12:12 PM CURRENT TOBACCO USER [facility] Dec 27, 2011 09:44 AM CURRENT [facility]ACCO [facility]ER [facility] Jan 22, 2011 02:38 PM CURRENT [facility]ACCO [facility]ER [facility] Mar 13, 2010 12:48 PM CURRENT TOBACCO USER [facility] Advance Directives: All historical and current Section Date Range: From patient's date of to the date document was created. This section includes ALL of a patient's completed or amended [place] Advance and Rescinded Directives. The entries below indicate that a directive exists for the patient, but an actual copy is not included with this document. The data comes from all [place] facilities. Date Advance Directives Provider Source Feb 25, 2018 ADVANCE DIRECTIVE AURORA MORALES [facility] Feb 24, 2018 ADVANCE DIRECTIVE DISCUSSION AURORA MORALES [facility] May 26, 2017 CLINICAL WARNING MAGO CONTRERAS [facility] May 03, 2017 CLINICAL WARNING SARIAH ENGLE [facility] Aug 10, 2016 CLINICAL WARNING ISABEL BARCENAS [facility] Aug 02, 2016 CLINICAL WARNING AURORA ALMAZAN [facility] Encounter Notes: All associated encounter notes This section contains the clinical notes associated to the Encounter. Date/Time Encounter Note(s) Provider Source Jul 11, 2021 09:25 OPHTHALMOLOGY ATTENDING NOTE: ANGELA JEFFERSON [facility] AM LOCAL TITLE: OPHTHALMOLOGY CLINIC NOTE STANDARD TITLE: OPHTHALMOLOGY ATTENDING NOTE DATE OF NOTE: JUL 11, 2021@09:25 ENTRY DATE: JUL 11, 2021@09:25:13 AUTHOR: ANGELA JEFFERSON EXP COSIGNER: URGENCY: STATUS: COMPLETED HPI: Here for blurry vision, wants new glasses. Denies other vision changes, pain, redness, d/c. I have reviewed the certified emergency vehicle technician's note and agree. A&Ox3 OD:+0.25 +0.51P256 20/15-1 OS:-0.75 +0.50X5 20/20-1 Intra-ocular pressure (IOP): OD: 15 OS: 19 SLE - bilaterally: L/L - blepharitis C/S - w/q K - cl A/C - D/q I - r/r L - 1+nsc DFE - bilaterally: Vit - cl, Celis ring os ON: pink/healthy, no heme c/d: OD - 0.6 OS - 0.6 M/V/P - flat. regular distrib. flat I/P: # nsc -monitor # blepharitis/ARLYN - warm packs daily (microwave rice in sock) - eyelash washing daily - artificial tear eyedrops qid prn # PVD OS - No holes or tears on SD exam - RD signs and symptoms discussed, patient graciela hernandez on follow up # refractive error/presbyopia -mrx 1 year mrvtd sooner with changes /es/ ANGELA JEFFERSON MD STAFF [employer] QUALITY CONTROL TECHNICIAN Signed: 07/11/2021 09:37 Jul 11, 2021 08:40 BUTTER MELTER NOTE: AISHA [facility] HCS [facility] TITLE: BUTTER MELTER NOTE OCRY OG STANDARD TITLE: BUTTER MELTER NOTE DATE OF NOTE: JUL 11, 2021@08:40 ENTRY DATE: JUL 11, 2021@08:40:30 AUTHOR: SHERITA PERALTA COSIGNER: URGENCY: STATUS: COMPLETED Eye Start Exam Patient: REGI MANTILLA Sex: MALE SSN: [id number] Birthdate: [birth year] Chief complaint: complete exam Pt states the OS still has the kelly e floater from 2019 visit. No flashing. Pt feels his vision has beens stabl e, ou irritation, burning on occasion OU. Some tearing OS>OD , usi ng AT which helps. AT prn , ou (NEEDS REFILL) History of Present Illness: Location: Intensity: Duration: Active problems - Computerized Problem List is t he source for the followin. Benign essential hypertension (SNOMED CT 120 1005) 2. Hearing loss * 3. HTN - Hypertension (SNOMED CT 32072784) 4. Hyperlipidemia (SNOMED CT 12048426) 5. Alcohol abuse (SNOMED CT 73430518) 6. Cannabis abuse (SNOMED CT 03432182) 7. Pain in joint involving shoulder region - RIGHT 8. Anemia (SNOMED CT 646187234) 9. Jt Replcmnt Stat, Knee 10. Gastroesophageal reflux disease (SNOMED CT 2 95695252) 11. CAD - Coronary artery disease - s/p stenting 12. Acute non-ST segment elevation myocardial in farction 13. Chronic kidney disease 14. Rib fracture - s/p fall 11/2018, RIGHT rib 15. Pain of right shoulder joint 16. Hand pain 17. Ankle pain 18. Rhinitis 19. Seropositive rheumatoid arthritis Surgeries: NOV 23, 2013 Proc: Right total knee arthroplasty Full Exam Eye Medications AT ,prn (NEEDS REFILLS) Allergies: LISINOPRIL (Jun 01, 2021) No new Allergies. Past Medical History: Hypertension High cholesterol Heart disease Other: RA CKD , CAD GERD IN x2 Past eye history: Cataracts : OU Past eye surgeries: Denies all Social History: Alcohol use - Yes Tobacco use - No Family History: Heart disease or stroke: Other: Stroke father, [place] mother Last refraction: 2019 Vision: OD:SC(without glasses) OD: -2 Pinhole: 20/ Near: 20/ Vision: OS:SC(without glasses) 0S: -2 Pinhole: /25+1 Near: 20/ Refraction: Manifest: YES Automated: NO OD:+0.25 +0.23N940 /15-1 OS:-0.75 +0.50X5 -1 Balance: Add: +2.50 Near vision: OD /20--: OS 20/20: OU Comment: Confrontational [place]: Full to finger counting: Right: Yes Left: Yes Extra Ocular Movement: Normal Pupils: Right: Round Left: Round Size: Right: 3.5 Left: 3.5 React to light: Right: Yes Left: Yes Afferent pupil defect: Right:No Grade: Left: No Grade: Note: Intra-ocular pressure (IOP): OD: 15 OS: 19 iCare Dilation: mydriacyl 1% and neosynephrine OU Jun@09:07 /mikal/ ELIZABETH BARBER CERTIFIED SALES ASSISTANT Signed: 07/11/2021 09:08
--- OUTSIDE RECORDS SUMMARY | 2022-06-25 19:35 | XMS_ITS | Encounter Summary ---
:1950 Author Organization [facility] Address [address] [place] [address] Support Name Relationship Address Phone MADELIN MANTILLA Unavailable [address] [phone] [place] [address] MADELIN MANTILLA Unavailable [address] [phone] [place] [address] DHAVAL MANTILLA Unavailable [address] [place] [address] Insurance Providers: All historical and current Section Date Range: From patient's date of to the date document was created.This section includes the names of all active insurance providers for the patient. Insurance Type of Plan Start of End of Group Member Insurance Policy P atient's Provider Coverage Name Policy Policy Number ID Provider's [place] Relationship Coverage Coverage Telephone Name to Policy Number [place] MEDICARE MEDICARE PART Jul 18, PART B [id number] 800 ANNALEE BRYANIENT (WNR) (M) B 2014A [phone] ,[place] MEDICARE MEDICARE PART Apr 17, PART A [id number] 800 ANNALEE BRYANIENT (WNR) (M) A [phone] ,[place] Selected Encounter This section includes the information on record at [place] for the Encounter. Date/Time Encounter Type Encounter Description Reason Provider Source Jul 31, 2021 02:50 Outpatient Encounter GENERAL INTERNAL PM MEDICINE IHE Encounter Template Text not used by [place] Plan of Treatment: Future Appointments (+ 6 months) and Future Tests (+/- 45 days) The Plan of Treatment section includes future care activities for the patient from all [place] treatmentfacilities. This section includes future appointments and future orders which are active, pending orscheduled.Future Appointments This section includes appointments that were scheduled to occur 6 months from the date of the Encounter, up to a maximum of 20 appointments. The data comes from all [place] treatment facilities. Appointment Date/Time Appointment Type Appointment Facili ty Name Sep 28, 2021 08:45 AM AMBULATORY - MEDICINE [facility] Sep 28, 2021 09:30 AM AMBULATORY - MEDICINE [facility] Sep 28, 2021 10:50 AM AMBULATORY - MEDICINE [facility] Nov 20, 2021 06:18 PM AMBULATORY - [facility] Jan 07, 2022 08:46 AM AMBULATORY - MEDICINE [facility] Jan 11, 2022 09:00 AM AMBULATORY - MEDICINE [facility] Jan 11, 2022 10:00 AM AMBULATORY - MEDICINE [facility] Social History: Smoking Status (Most current) and Tobacco Use (All prior to encounter date) This section includes the most current, and the historical, smoking and tobacco-related health factors from the [place] facility where the Encounter took place.Current Smoking Status This section includes the most current smoking, or tobacco-related health factor, from the [place] facility where the Encounter took place. Date/Time Current Smoking Status Comment Facility Jun 01, 2021 02:00 PM [facility] Tobacco Use History This section includes a history of the smoking, or tobacco- related health factors, that were collected on or before the date of the Encounter. The data comes from the [place] facility where the Encounter took place. Date/Time Smoking Status/Tobacco Use Comment Facil it Dec 31, 2019 10:54 AM VA-TOBACCO [facility] US[facility] Dec 31, 2019 10:54 AM [place]-TO[place]ACCO QUIT < [address] [facility] March 23, 2019 09:53 AM VA-TOBACCO FORMER USER [facility] March 23, 2019 09:53 AM VA-TOBACCO QUIT < [address] [facility] Jun 10, 2018 10:00 AM CURRENT TOBACCO US[place] [facility] May 10, 2018 07:27 PM INPT TOBACCO COUNSELING [place] [facility] May 10, 2018 07:27 PM [place] [facility] Aug 29, 2017 09:55 AM FORMER TOBACCO USE <1Y [facility] May 26, 2017 10:51 PM INPT TOBACCO COUNSELING [place] [facility] May 26, 2017 10:51 PM INPT [place] [facility] May 03, 2017 09:34 PM INPT TOBACCO COUNSELING [place] [facility] May 03, 2017 09:34 PM INPT TOBACCO USER GONZALES LORENZ [facility] Sep 18, 2016 01:36 PM FORMER TOBACCO USE <1Y [place] [facility] Aug 10, 2016 03:54 PM INPT TOBACCO USE - PT REFUSED [facility] Aug 01, 2016 06:48 PM INPT TOBACCO COUNSELING ANAID GARCIA [facility] Aug 01, 2016 06:48 PM INPT TOBACCO USER [place] [facility] Feb 08, 2015 09:57 AM CURRENT TOBACCO USER [facility] Nov 29, 2013 10:37 AM CURRENT TOBACCO USER [facility] Nov 26, 2013 11:09 AM PATIENT IS TOBACCO USER [place] [facility] Nov 27, 2012 12:12 PM CURRENT TOBACCO USER [facility] Dec 27, 2011 09:44 AM CURRENT TOBACCO USER [facility] Jan 22, 2011 02:38 PM CURRENT TOBACCO USER [facility] Mar 13, 2010 12:48 PM CURRENT TOBACCO USER [facility] Advance Directives: All historical and current Section Date Range: From patient's date of to the date document was created. This section includes ALL of a patient's completed or amended [place] Advance and Rescinded Directives. The entries below indicate that a directive exists for the patient, but an actual copy is not included with this document. The data comes from all [place] facilities. Date Advance Directives Provider Source Feb 25, 2018 ADVANCE DIRECTIVE ANDREWAURORA PRESTON [facility] Feb 24, 2018 ADVANCE DIRECTIVE DISCUSSION AURORA MORALES [facility] May 26, 2017 CLINICAL WARNING MAGO CONTRERAS [facility] May 03, 2017 CLINICAL WARNING SARIAH ENGLE [facility] Aug 10, 2016 CLINICAL WARNING ISABEL BARCENAS [facility] Aug 02, 2016 CLINICAL WARNING AURORA ALMAZAN [facility] Encounter Notes: All associated encounter notes This section contains the clinical notes associated to the Encounter. Date/Time Encounter Note(s) Provider Source Jul 31, 2021 02:51 PM REPORT OF CONTACT: LUCIO SERRANO [facility] LOCAL TITLE: COVID 19 VACCINATION SCHEDULING NO TE STANDARD TITLE: REPORT OF CONTACT DATE OF NOTE: JUL 31, 2021@14:51 ENTRY DATE: JUL 31, 2021@14:51:19 AUTHOR: LUCIO SERRANO EXP COSIGNER: URGENCY: STATUS: COMPLETED Attempt to schedule for Covid-19 vaccina tion: Called at: . Called phone number listed twice. Same outcome. No dial tone but goes staight into message that says there 's calling restrictions and phone number program writer is calling from is restricted. /mikal/ LUCIO SERRANO RN STAFF NURSE Signed: 07/31/2021 14:53
--- OUTSIDE RECORDS SUMMARY | 2022-06-25 19:35 | XMS_ITS | Encounter Summary ---
:1950 Author Organization [facility] Address [address] [place] [id number] Support Name Relationship Address Phone MADELIN MANTILLA Unavailable [address] [phone] [place] [address] MADELIN MANTILLA Unavailable [address] [phone] [place] [address] DHAVAL MANTILLA Unavailable [address] [place] [address] Insurance Providers: All historical and current Section [...] MEDICARE MEDICARE PART Jul 18, PART B [id number] ANNALEE BUSTILLO (WNR) (M) B [id number] [phone] ,REGI MEDICARE MEDICARE PART Apr 17, PART A [id number] ANNALEE BUSTILLO (WNR) (M) A [id number] [phone] ,REGI Selected Encounter This section includes the information on record at [place] for the Encounter. Date/Time Encounter Type Encounter Description Reason Provider Source Nov 20, 2021 12:05 Outpatient Encounter PRIMARY CARE/MEDICINE PM [facility] Encounter Template Text not used by [place] Plan of Treatment: Future Appointments (+ 6 months) and Future Tests (+/- 45 days) The Plan of Treatment section includes future care activities for the patient from all [place] treatmentfacilities. This section includes future appointments and future orders which are active, pending orscheduled.Future Appointments This section includes appointments that were scheduled to occur 6 months from the date of the Encounter, up to a maximum of 20 appointments. The data comes from all [place] treatment facilities. Appointment Date/Time Appointment Type Appointment Facili ty Name Jan 07, 2022 08:46 AM AMBULATORY - MEDICINE [facility] Jan 11, 2022 09:00 AM AMBULATORY - MEDICINE [facility] Jan 11, 2022 10:00 AM AMBULATORY - MEDICINE [facility] Feb 17, 2022 08:09 PM AMBULATORY - NONE [facility] Mar 05, 2022 12:30 PM AMBULATORY - NONE [facility] Mar 05, 2022 01:30 PM AMBULATORY - MEDICINE [facility] Mar 12, 2022 11:00 AM AMBULATORY - MEDICINE [facility] March 19, 2022 06:03 PM AMBULATORY - NONE [facility] April 10, 2022 11:00 AM AMBULATORY - MEDICINE [facility] April 10, 2022 11:30 AM AMBULATORY - MEDICINE [facility] April 12, 2022 08:30 AM AMBULATORY - MEDICINE [facility] May 07, 2022 09:00 AM AMBULATORY - MEDICINE [facility] May 15, 2022 10:30 AM AMBULATORY - MEDICINE [facility] May 15, 2022 10:40 AM AMBULATORY - MEDICINE [facility] May 15, 2022 11:30 AM AMBULATORY - MEDICINE [facility] May 15, 2022 01:00 PM AMBULATORY - MEDICINE [facility] May 15, 2022 01:45 PM AMBULATORY - NONE [facility] Social History: Smoking Status (Most current) and Tobacco Use (All prior to encounter date) This section includes the most current, and the historical, smoking and tobacco-related health factors from the [place] facility where the Encounter took place.Current Smoking Status This section includes the most current smoking, or tobacco-related health factor, from the [place] facility where the Encounter took place. Date/Time Current Smoking Status Comment Facility Jun 01, 2021 02:00 PM [facility] Tobacco Use History This section includes a history of the smoking, or tobacco- related health factors, that were collected on or before the date of the Encounter. The data comes from the [place] facility where the Encounter took place. Date/Time Smoking Status/Tobacco Use Comment Katherine tapia Dec 31, 2019 10:54 AM VA-TOBACCO FORMER USER [facility] Dec 31, 2019 10:54 AM IN-TOBACCO QUIT < 1 YEAR [facility] March 23, 2019 09:53 AM VA-TOBACCO FORMER USER [facility] March 23, 2019 09:53 AM VA-TOBACCO QUIT < 1 YEAR [place] [facility] Jun 10, 2018 10:00 AM CURRENT TOBACCO USER [facility] May 10, 2018 07:27 PM IN[place]BAC[place] COUNSELING [place] [facility] May 10, 2018 07:27 PM INPT TOBACCO USER [facility] Aug 29, 2017 09:55 AM FORMER TOBACCO USE <1Y [facility] May 26, 2017 10:51 PM [place]BAC[place] COUNSEL[place] [facility] May 26, 2017 10:51 PM INPT TOBACCO USER [facility] May 03, 2017 09:34 PM [place]BAC[place] COUNSELING [place] [facility] May 03, 2017 09:34 PM INPT TOBACCO USER [facility] Sep 18, 2016 01:36 PM FORMER TOBACCO USE <1Y [facility] Aug 10, 2016 03:54 PM INPT TOBACCO USE - PT REFUSED [facility] Aug 01, 2016 06:48 PM [place] [facility] [place] [facility] Aug 01, 2016 06:48 PM INPT TOBACCO USER [facility] Feb 08, 2015 09:57 AM CURRENT TOBACCO USER [facility] Nov 29, 2013 10:37 AM CURRENT [facility] Nov 26, 2013 11:09 AM PATIENT [place] [facility]AC[place] [facility]ER [place] [facility] Nov 27, 2012 12:12 PM CURRENT TOBACCO USER [facility] Dec 27, 2011 09:44 AM CURRENT TOBACCO USER [facility] Jan 22, 2011 02:38 PM CURRENT [facility]AC[facility] Mar 13, 2010 12:48 PM CURRENT [facility]ACCO [facility] Advance Directives: All historical and current Section Date Range: From patient's date of to the date document was created. This section includes ALL of a patient's completed or amended [place] Advance and Rescinded Directives. The entries below indicate that a directive exists for the patient, but an actual copy is not included with this document. The data comes from all [facility]. Date Advance Directives Provider Source Feb 25, 2018 ADVANCE DIRECTIVE AURORA MORALES [facility] Feb 24, 2018 ADVANCE DIRECTIVE DISCUSSION AURORA MORALES [facility] May 26, 2017 CLINICAL WARNING MAGO CONTRERAS [facility] May 03, 2017 CLINICAL WARNING SARIAH ENGLE [facility] Aug 10, 2016 CLINICAL WARNING ISABEL BARCENAS [facility] Aug 02, 2016 CLINICAL WARNING AURORA ALMAZAN [facility] Encounter Notes: All associated encounter notes This section contains the clinical notes associated to the Encounter. Date/Time Encounter Note(s) Provider Source Nov 20, 2021 12:05 PM REPORT OF CONTACT: LUIGI RIVERA [facility] LOCAL TITLE: APPOINTMENT SCHEDULING NOTE STANDARD TITLE: REPORT OF CONTACT DATE OF NOTE: NOV 20, 2021@12:05 ENTRY DATE: NOV 20, 2021@12:05:28 AUTHOR: LUIGI RIVERA EXP COSIGNER: URGENCY: STATUS: COMPLETED APPOINTMENT SCHEDULING NOTE Has ADDENDA Attempt to schedule return to clinic 1st Contact: Called Forgan at: r estricted number. Second phone number called: left Left message Phone number left for to call back: If Forgan calls back, schedule appointment for : Please schedule with primary care provider for tomorrow if available. [facility] for COPD and a chest infection and was discharged yesterday with instructions to f/u with PCP within 1-2 days. Is the RTC marked as no later than? No Provider: please review veterans chart and medi cations for renewal needs (if appropriate). /mikal/ LUIGI RIVERA [employer] Signed: 11/20/2021 12:08 Receipt Acknowledged By: 11/20/2021 12:22 /es/ MARYELLEN LEON MD Staff Physician 11/21/2021 ADDENDUM STATUS: COMPLETED called back and no open appts to day or the rest of the week. He can be reached at [phone]. or at [phone] . /mikal/ ADALGISA ARTIS [address] [place] [address] Signed: 11/21/2021 08:33 Receipt Acknowledged By: * AWAITING SIGNATURE * HERI BRAUN * AWAITING SIGNATURE * LUIGI RIVERA
--- OUTSIDE RECORDS SUMMARY | 2022-06-25 19:35 | XMS_ITS | Encounter Summary ---
:1950 Author Organization [facility] Address [address] [place] [id number] Support Name Relationship Address Phone MADELIN MANTILLA Unavailable [address] [phone] [place] [address] MADELIN MANTILLA Unavailable [phone] [place] [address] DHAVAL MANTILLA Unavailable [address] [place] [address] Insurance Providers: All historical and current Section [...] MEDICARE MEDICARE PART Jul 18, PART B [id number] ANNALEE BUSTILLO (WNR) (M) B 2014A [phone] ,REGI MEDICARE MEDICARE PART Apr 17, PART A [id number] 800 ANNALEE BUSTILLO (WNR) (M) A [id number] [phone] ,REGI Selected Encounter This section includes the information on record at [place] for the Encounter. Date/Time Encounter Type Encounter Reason Provider Source Description Jan 07, 2022 EMERGENCY DEPT EMERGENCY DEPT ICD-10-CM K02.9 08:46 AM VISIT Dental caries, unspecified with Provider Comments: Dental Caries, unspecified IHE Encounter Template Text not used by [place] Assessments - Encounter Diagnoses This section includes the primary and secondary diagnoses documented for the Encounter. Date/Time Primary/Secondary Diagnosis Name Provider Source Diagnosis Jan 07, 2022 PRIMARY Dental caries, GERALDO MARK [facility] 09:54 AM unspecified [facility] Plan of Treatment: Future Appointments (+ 6 months) and Future Tests (+/- 45 days) The Plan of Treatment section includes future care activities for the patient from all [place] [facility] This section includes future appointments and future orders which are active, pending orscheduled.Future Appointments This section includes appointments that were scheduled to occur 6 months from the date of the Encounter, up to a maximum of 20 appointments. The data comes from all [place] treatment facilities. Appointment Date/Time Appointment Type Appointment Facili ty Name Jan 11, 2022 09:00 AM AMBULATORY - MEDICINE [facility] Jan 11, 2022 10:00 AM AMBULATORY - MEDICINE [facility] Feb 17, 2022 08:09 PM AMBULATORY - NONE [facility] Mar 05, 2022 12:30 PM AMBULATORY [facility] Mar 05, 2022 01:30 PM AMBULATORY - MEDICINE [facility] Mar 12, 2022 11:00 AM AMBULATORY - MEDICINE [facility] March 19, 2022 06:03 PM AMBULATORY [facility] April 10, 2022 11:00 AM AMBULATORY - MEDICINE [facility] April 10, 2022 11:30 AM AMBULATORY - MEDICINE [facility] April 12, 2022 08:30 AM AMBULATORY - MEDICINE [facility] May 07, 2022 09:00 AM AMBULATORY - MEDICINE [facility] May 15, 2022 10:30 AM AMBULATORY - MEDICINE [facility] May 15, 2022 10:40 AM AMBULATORY - MEDICINE [facility] May 15, 2022 11:30 AM AMBULATORY - MEDICINE [facility] May 15, 2022 01:00 PM AMBULATORY - [facility] May 15, 2022 01:45 PM AMBULATORY - [facility] Jun 19, 2022 01:15 PM AMBULATORY - [facility] Jun 24, 2022 05:53 PM AMBULATORY - MEDICINE [facility] Lab Results: +/- 30 days of the encounter This section includes the Chemistry and Hematology Lab Results on record with [place] for the patient. Radiology Reports and Pathology Reports are provided separately, in subsequent sections.Lab Results This section contains the Chemistry/Hematology Results that were resulted 30 days before or 30 daysafter the date of the Encounter. Date/Time Source Result Type Result - Unit Interpretation Reference Range Comment Jan 11, 2022 [facility] RHEUMATOLOGY CHEM PANEL Spec imen Type: PLASMA 09:15 AM No comment enter ed. Ordering Provid er: NAS PERRY Report Released Date/Time: Dec 21, 2021 10:38 AM Reporting Lab: [facility] [id number] Performing Lab: [facility] [id number] CREATININE 1.0 0.7-1.2 ALKALINE PHOSPHATASE 65 40-150 ALT/SGPT 41 <55 AST/SGOT 100 H <34 C-REACTIVE PROTEIN 5.03 H <5.00 ESTIMATED GFR(eGFR) 73 >60 Jan 11, 2022 [facility] RHEUMATOLOGY HEME PANEL Spec imen Type: BLOOD 09:15 AM Comment: Emma hernandez Differential Performed Ordering Provid er: NAS PERRY Report Released Date/Time: Dec 21, 2021 10:38 AM Reporting Lab: [facility] [id number] Performing Lab: [facility] [id number] WBC 10.65 4.0-11.0 RBC 3.65 L 4.6-6.2 [...] dy Source Pressure Rate Mass Index Jan 07, 98.2 F 71 127/81 16 /min 95 % 8 [place] 2021 08:58 /min mm[Hg] [facility] Social History: Smoking Status (Most current) and Tobacco Use (All prior to encounter date) This section includes the most current, and the historical, smoking and tobacco-related health factors from the [place] facility where the Encounter took place.Current Smoking Status This section includes the most current smoking, or tobacco-related health factor, from the [place] facility where the Encounter took place. Date/Time Current Smoking Status Comment Facility Jun 01, 2021 02:00 PM VA-TOBACCO NEVER USED [facility] Tobacco Use History This section includes a history of the smoking, or tobacco- related health factors, that were collected on or before the date of the Encounter. The data comes from the [facility] where the Encounter took place. Date/Time Smoking Status/Tobacco Use Comment [facility] Dec 31, 2019 10:54 AM VA-TOBACCO FORMER USER [facility] Dec 31, 2019 10:54 AM VA-TOBACCO QUIT < 1 YEAR [facility] March 23, 2019 09:53 AM VA-TOBACCO FORMER USER [facility] March 23, 2019 09:53 AM VA-TOBACCO QUIT < 1 YEAR [facility] Jun 10, 2018 10:00 AM CURRENT TOBACCO USER [place] [facility] May 10, 2018 07:27 PM INPT TOBACCO COUNSELING [place] [facility] May 10, 2018 07:27 PM [facility] Aug 29, 2017 09:55 AM FORMER TOBACCO USE <1Y [facility] May 26, 2017 10:51 PM INPT TOBACCO COUNSELING [facility] May 26, 2017 10:51 PM INPT TOBACCO USER [place] [facility] May 03, 2017 09:34 PM INPT TOBACCO COUNSELING [facility] May 03, 2017 09:34 PM INPT TOBACCO USER [place] [facility] Sep 18, 2016 01:36 PM FORMER TOBACCO USE <1Y [facility] Aug 10, 2016 03:54 PM INPT TOBACCO USE - PT REFUSED [facility] Aug 01, 2016 06:48 PM INPT TOBACCO COUNSELING [facility] Aug 01, 2016 06:48 PM INPT TOBACCO USER [place] [facility] Feb 08, 2015 09:57 AM CURRENT TOBACCO US[facility] Nov 29, 2013 10:37 AM CURRENT TOBACCO USER [facility] Nov 26, 2013 11:09 AM PATIENT IS TOBACCO USER [place] [facility] Nov 27, 2012 12:12 PM CURRENT TOBACCO USER [facility] Dec 27, 2011 09:44 AM CURRENT TOBACCO USER [facility] Jan 22, 2011 02:38 PM CURRENT TOBACCO USER [facility] Mar 13, 2010 12:48 PM CURRENT TOBACCO USER [facility] Advance Directives: All historical and current Section Date Range: From patient's date of to the date document was created. This section includes ALL of a patient's completed or amended [place] Advance and Rescinded Directives. The entries below indicate that a directive exists for the patient, but an actual copy is not included with this document. The data comes from all [facility]. Date Advance Directives Provider Source Feb 25, 2018 ADVANCE DIRECTIVE [facility] Feb 24, 2018 ADVANCE DIRECTIVE DISCUSSION [facility] May 26, 2017 CLINICAL WARNING MAGO CONTRERAS [facility] May 03, 2017 CLINICAL WARNING SARIAH ENGLE [facility] Aug 10, 2016 CLINICAL WARNING ISABEL BARCENAS [facility] Aug 02, 2016 CLINICAL WARNING [facility] ALMAZAN [facility] Encounter Notes: All associated encounter notes This section contains the clinical notes associated to the Encounter. Date/Time Encounter Note(s) Provider Source Jan 07, 2022 09:55 PHYSICIAN EMERGENCY DEPT NOTE: GERALDO MARK [facility] AM LOCAL TITLE: EMERGENCY DEPT NOTE STANDARD TITLE: PHYSICIAN EMERGENCY DEPT NOTE DATE OF NOTE: JAN 07, 2022@09:55 ENTRY DATE: JAN 07, 2022@09:55:38 AUTHOR: GERALDO MARK EXP COSIGNER: URGENCY: STATUS: COMPLETED Personal Protective Equipment (PPE): MD/PA/SAFETY PATROL OFFICER u sed PPE during every encounter with the patient Nurse's note reviewed. Chief Complaint: The patient is a 71 y/o MALE c omplaining of: dental pain, headache TDAP/TD Immunizations No data available for: TETANUS TOXOID, ADSORBED TETANUS TOXOID, NOT ADSORBED TETANUS TOXOID, UNSPECIFIED FORMULATION TDAP Covid-19 Immunizations Immunization Series Date Facility Reaction Info COVID-19 (PFIZER), MRNA, LNP-S, P* 1 01/12/2021 [place] <C> COVID-19 (PFIZER), MRNA, LNP-S, P* 2 01/31/2021 [place] <C> COVID-19 (PFIZER), MRNA, LNP-S, P* 3 09/28/2021 [place] <C> <C> See the Detailed Immunizations Health Summa ry Component[DIM] for Comments History of present illness: 71-year-old male presented to the ED ambulatory complaining of dental problem associated with some headache. Pt unfortunately is not qualified for dental care at the [place]. he tells me that he after eating popcorn he broke a right lower tooth, since then has had so me headache radiating to the right nape of the neck. No URI symptoms. No abscess. No fever or chills, nausea or vomiting. No chest pain or shortness of breath. No dizziness or syn cope. No bowel movement or urine problems. No paresthesia. No injury or tra drake to head & neck area. Patient is hoping that dental department he will extract his teeth for him. Allergies: LISINOPRIL (Jun 01, 2021) Past Medical History: Active problems - Computerized Problem List is the source for the followin. Benign essential hypertension (SNOMED CT 120 1005) 2. Hearing loss * 3. HTN - Hypertension (SNOMED CT 92331677) 4. Hyperlipidemia (SNOMED CT 49427715) 5. Alcohol abuse (SNOMED CT 61895953) 6. Cannabis abuse (SNOMED CT 90527899) 7. Pain in joint involving shoulder region - RIGHT 8. Anemia (SNOMED CT 623678454) 9. Jt Replcmnt Stat, Knee 10. Gastroesophageal reflux disease (SNOMED CT 604566416) 11. CAD - Coronary artery disease - s/p stenting 12. Acute non-ST segment elevation myocardial i nfarction 13. Chronic kidney disease 14. Rib fracture - s/p fall 11/2018, RIGHT rib 15. Pain of right shoulder joint 16. Hand pain 17. Ankle pain 18. Rhinitis 19. Seropositive rheumatoid arthritis Medications: Active Outpatient Medications (excluding Suppli es): Outpatient Medications Status 1) ACETAMINOPHEN 500MG TAB TAKE TWO TABLETS BY MOUTH ACTIVE FOUR TIMES A DAY NEEDED *NOT TO EXCEED 4000M G IN 24 HOURS* FOR PAIN 2) ADALIMUMAB 40MG/0.8ML INJ PEN KIT INJECT 40 MG UNDER ACTIVE THE SKIN EVERY 2 WEEKS 3) ASPIRIN 81MG EC TAB TAKE ONE TABLET BY MOUTH EVERY ACTIVE DAY 4) ATORVASTATIN CALCIUM 80MG TAB TAKE ONE-HALF TABLET BY ACTIVE MOUTH AT BEDTIME FOR CHOLESTEROL REPLACES SIMVASTATIN 5) CARBOXYMETHYLCELLULOSE NA 0.25% OPH SOLN INS TILL 1 ACTIVE DROP IN BOTH EYES FOUR TIMES A DAY 6) CHOLECALCIF 25MCG (D3-1,000UNIT) TAB TAKE ON E TABLET ACTIVE BY MOUTH EVERY DAY 7) CYANOCOBALAMIN 1000MCG TAB TAKE ONE TABLET B Y MOUTH ACTIVE (S) EVERY DAY 8) FLUTICASONE PROP 50MCG 120D NASAL INHL SPRAY 1 SPRAY ACTIVE IN EACH NOSTRIL TWICE A DAY NEEDED FOR RUNNY NOSE USE REGULARLY FOR RELIEF OF ALLERGIES/CONGESTION 9) FOLIC ACID 1MG TAB TAKE ONE TABLET BY MOUTH EVERY DAY ACTIVE 10) ISOSORBIDE MONONITRATE 60MG SA TAB TAKE ONE TABLET BY ACTIVE MOUTH EVERY DAY FOR CHEST PAIN 11) LORATADINE 10MG TAB TAKE ONE TABLET BY MOUT H EVERY ACTIVE DAY FOR ALLERGY SYMPTOMS 12) METOPROLOL TARTRATE 50MG TAB TAKE ONE-HALF TABLET BY ACTIVE MOUTH TWICE A DAY FOR HEART 13) PANTOPRAZOLE NA 40MG EC TAB TAKE ONE TABLET BY MOUTH ACTIVE EVERY MORNING ONE-HALF HOUR BEFORE EATING TO DECREASE STOMACH ACID TAKE ON AN EMPTY STOMAC H, AT LEAST 30 MINUTES PRIOR TO MEAL 14) PREDNISONE 10MG TAB TAKE ONE TABLET BY MOUT H EVERY ACTIVE DAY 15) SULFASALAZINE 500MG TAB TAKE TWO TABLETS BY MOUTH ACTIVE TWICE A DAY Physical Exam: BP: 127/81 (01/07/2022 08:58) P: 71 (01/07/2022 08:58) R: 16 (01/07/2022 08:58) T: 98.2 F [36.8 C] (01/07/2022 08:58) O2 Sats: 95% (01/07/2022 08:58) General: well developed, well nourished, some k yphosis, not septic, afebrile, no signs of cyanosis or accessory musc le use, moist mucous membrane Skin: no rash, no lesions Neck: supple, no JVD, thyroid not palpable Eye: PERRLA, EOMI, Anicteric, Atraumatic ENT: TM's wnl, oropharynx clear--- only a few t eeth left in the upper and lower gums, extensive dental caries; one chipped tooth right molar, no gum abscess noted; no TMJ tender ness, able to open and close his mouth normally; no sinus tenderness Cardiovascular: RRR, S1/S2, no murmur appreciat ed, no S3/S4 Respiratory: Lungs - clear to auscultation bila terally, resonant throughout Abdominal: Soft, nontender Neuro: alert and orientedX3, grossly non-focal, strength 5/5 bilaterally, sensation intact; no facial asymmetry or pronat or drift; normal gait Extremities & musculoskeletal: No edema, No ken thema; no C-spine tenderness, normal range of motion C-spine; some mus desi spasm in the right upper trapezius region; normal range of motion bilateral shoulde rs; neurovascularly intact bilateral upper and lower extremities Lymphatic: no cervical lymphadenopathy Consultative Services Service: Dental Name of risk management consultant: marii Jiménez by phone ED Course/Medical Decision Making/Assessment: Diagnosis: Extensive dental caries, chipped toot h; associated headache Plan: Unfortunately pt is no t qualified for dental care at the [place]. Resouces for low cost dental care given. To f/up dentist RIANA . Tylenol PRN headache as directed. Warning signs and symptoms explained, be seen [facility]IA[facility] if worsening. Disposition: Home Condition on discharge: Stable /es/ GERALDO MARK MD PHYSICIAN ED/MOD Signed: 01/07/2022 18:33 Jan 07, 2022 09:53 NURSING EMERGENCY DEPT NOTE: MONICA HARRIS [facility] LOCAL TITLE: EMERGENCY DEPT NURSING NOTE STANDARD TITLE: NURSING EMERGENCY DEPT NOTE DATE OF NOTE: JAN 07, 2022@09:53 ENTRY DATE: JAN 07, 2022@09:53:10 AUTHOR: MONICA HARRIS EXP COSIGNER: URGENCY: STATUS: COMPLETED Emergency Department Discharge Education Personal Protective Equipment (PPE): Patient wa s in mask on arrival, Patient was in mask on arrival, patient remaine d masked for entire visit, RN used PPE during every encounter with the pat MD panad/PA/SAFETY PATROL OFFICER used PPE during every encounter with the patient The patient was given education on the followin g: Dental pain EDUCATION/TEACH BACK: [facility] discharge instructions have been revie wed with AND had an opportunity to ask questions, has verbal ized understanding, have received a copy of the [facility] instructions, P erforms skills effectively EDUCATIONAL LEVEL OF UNDERSTANDING: Patient was ready and receptive to education. BARRIERS TO LEARNING: No barriers identified Accompanied by: Self Mode of Transportation: Drive self EXIT ADDITIONAL EDUCATION GIVE: Discharged to: Home /mikal/ Monica Harris RN Registered Nurse Signed: 01/07/2022 09:53 Jan 07, 2022 09:03 NURSING EMERGENCY DEPT NOTE: MONICA HARRIS [facility] LOCAL TITLE: EMERGENCY DEPT NURSING NOTE STANDARD TITLE: NURSING EMERGENCY DEPT NOTE DATE OF NOTE: JAN 07, 2022@09:03 ENTRY DATE: JAN 07, 2022@09:03:16 AUTHOR: MONICA HARRIS EXP COSIGNER: URGENCY: STATUS: COMPLETED Nursing Focused Assessment: CHIEF COMPLAINT: states that he has a r ight sided headache that started two weeks ago after eating popcorn and breaking a tooth. Allergies/ADR: LISINOPRIL (Jun 01, 2021) Additional allergies not listed: Vital Signs * Blood Pressure: 127/81 (01/07/2022 08:58) Heart Rate: 71 (01/07/2022 08:58) Respirations: 16 (01/07/2022 08:58) Temperature: 98.2 F [36.8 C] (01/07/2022 08:58) Pain: 8 (01/07/2022 08:58) Weight: 121.2 lb [55.1 kg] (09/28/2021 09:04) O2 Sats: 95% (01/07/2022 08:58) Tobacco use: No Alcohol use: Yes What type of alcohol are you using: How often are you drinking alcohol: 1/2 pint pe r day whiskey, plus a couple beers. Any drugs besides what is prescribed or over th e counter: Yes What type of drugs are you using: Marijuana How often are you using drugs: ABUSE/NEGLECT: No evidence of abuse/neglect REVIEW OF SYSTEM-FOCUSED ASSESSMENT Neurological: Alert Mentation Oriented to: Person, Place, Time, Location Toshia Coma Scale: Date and Time Preformed: Dec@09:05 Best Motor Response: Obeys simple commands - 6 Best Verbal Response: Oriented - 5 Eye Opening: Spontaneous - 4 Total: 15 Respiratory: Quality of breath: Equal and unlabored chest ri se and fall Lung sounds: Right: Rhonchi Left: Rhonchi INTERVENTIONS: Oriented to room and bed controls Call light within reach of patient or family/fr iend Bed in low position and locked /es/ Monica Harris RN Registered Nurse Signed: 01/07/2022 09:06 Jan 07, 2022 08:58 NURSING EMERGENCY DEPT TRIAGE NOTE: [facility] TITLE: EMERGENCY DEPARTMENT NURSING TRI E AZEB DEBORAH STANDARD TITLE: NURSING EMERGENCY DEPT TRIAGE NO TE DATE OF NOTE: JAN 07, 2022@08:58 ENTRY DATE: JAN 07, 2022@08:58:57 AUTHOR: LEXIE PEREZ EXP COSIGNER: URGENCY: STATUS: COMPLETED Emergency Department/Urgent Care Center Triage Patient age:71 Sex: MALE On arrival patient was: AMBULATORY Patient phone number: Allergies: LISINOPRIL (Jun 01, 2021) Subjective/Chief Complaint: pt states he was eating popcorn 2 weeks ago and broke r lower tooth. pt states he has r sided h/a and dental pain s/p broken to oth Objective: nad The patient is not a fall risk. Vital Signs * Blood Pressure: 127/81 (01/07/2022 08:58) Heart Rate: 71 (01/07/2022 08:58) Respirations: 16 (01/07/2022 08:58) Temperature: 98.2 F [36.8 C] (01/07/2022 08:58) Pain: 8 (01/07/2022 08:58) Weight: 121.2 lb [55.1 kg] (09/28/2021 09:04) O2 Sats: 95% (01/07/2022 08:58) Emergency Severity Index (ANA) level Level 4 Current Medications: Active Outpatient Medications (including Supplie s): Active Outpatient Medications Status 1) ACETAMINOPHEN 500MG TAB TAKE TWO TABLETS BY M OUTH ACTIVE FOUR TIMES A DAY NEEDED *NOT TO EXCEED 4000M G IN 24 HOURS* FOR PAIN 2) ADALIMUMAB 40MG/0.8ML INJ PEN KIT INJECT 40 M G UNDER ACTIVE THE SKIN EVERY 2 WEEKS 3) ASPIRIN 81MG EC TAB TAKE ONE TABLET BY MOUTH EVERY ACTIVE DAY 4) ATORVASTATIN CALCIUM 80MG TAB TAKE ONE-HALF T ABLET BY ACTIVE MOUTH AT BEDTIME FOR CHOLESTEROL REPLACES SIMVASTATIN 5) CARBOXYMETHYLCELLULOSE NA 0.25% OPH SOLN INST ILL 1 ACTIVE DROP IN BOTH EYES FOUR TIMES A DAY 6) CHOLECALCIF 25MCG (D3-1,000UNIT) TAB TAKE ONE TABLET ACTIVE BY MOUTH EVERY DAY 7) CYANOCOBALAMIN 1000MCG TAB TAKE ONE TABLET BY MOUTH ACTIVE (S) EVERY DAY 8) FLUTICASONE PROP 50MCG 120D NASAL INHL SPRAY 1 SPRAY ACTIVE IN EACH NOSTRIL TWICE A DAY NEEDED FOR RUNNY NOSE USE REGULARLY FOR RELIEF OF ALLERGIES/CONGESTION 9) FOLIC ACID 1MG TAB TAKE ONE TABLET BY MOUTH E VERY DAY ACTIVE 10) ISOSORBIDE MONONITRATE 60MG SA TAB TAKE ONE TABLET BY ACTIVE MOUTH EVERY DAY FOR CHEST PAIN 11) LORATADINE 10MG TAB TAKE ONE TABLET BY MOUTH EVERY ACTIVE DAY FOR ALLERGY SYMPTOMS 12) METOPROLOL TARTRATE 50MG TAB TAKE ONE-HALF T ABLET BY ACTIVE MOUTH TWICE A DAY FOR HEART 13) PANTOPRAZOLE NA 40MG EC TAB TAKE ONE TABLET BY MOUTH ACTIVE EVERY MORNING ONE-HALF HOUR BEFORE EATING TO DECREASE STOMACH ACID TAKE ON AN EMPTY STOMAC H, AT LEAST 30 MINUTES PRIOR TO MEAL 14) PREDNISONE 10MG TAB TAKE ONE TABLET BY MOUTH EVERY ACTIVE DAY 15) SULFASALAZINE 500MG TAB TAKE TWO TABLETS BY MOUTH ACTIVE TWICE A DAY Current Problems: Benign essential hypertension (SCT 58508Uztiani loss (ICD-9-CM 389.9) HTN - Hypertension (SCT 86044173) Hyperlipidemia (SCT 49284028) Alcohol abuse (SCT 29044396) Cannabis abuse (SCT 78758220) Pain in joint involving shoulder region Anemia ( [facility] [id number]) Jt Replcmnt Stat, Knee (ICD-9-CM V43.65)Gastroes ophageal reflux disease ([facility] [id number]) CAD - Coronary artery disease ([facility] 43474Mxktr no n-ST segment elevation myocardial infarction ([facility] 990118265) Chronic kidney disease (SCT 509279184) Rib fract ure (SCT 05329682) Pain of right shoulder joint (SCT 986197Lhsa landry n ([facility] 23059787) Ankle pain ([facility] 210282838) Rhinitis ([facility] 0817292 2) Seropositive rheumatoid arthritis (SCT 2 Coronavirus Disease 2019 (COVID-19) Screen The patient was asked if in the last 14 days the y have had new onset of any COVID-19 symptoms. They report the following: Headache Comment: related to dental issues Within the past 14 days, the patient reports no exposure to someone with a febrile/respiratory illness or someone with a kn own or suspected case of COVID-19 (within 6 feet for > 15 minutes). Result: Screen is negative. Result: Screen is negative. Suicide Screen: Catron Suicide Severity Rating Scale (C-SSRS) screener 1. Over the past month, have you wished you wer e or wished you could go to sleep and not wake up? No 2. Over the past month, have you had any actual thoughts of killing yourself? No 3. Over the past month, have you been thinking about how you might do this? Response not required due to responses to other questions. 4. Over the past month, have you had these thou ghts and had some intention of acting on them? Response not required due to responses to other questions. 5. Over the past month, have you started to wor k out or worked out the details of how to kill yourself? Response not required due to responses to other questions. 6. If yes, at any time in the past month did yo u intend to carry out this plan? Response not required due to responses to other questions. 7. In your lifetime, have you ever done anythin g, started to do anything, or prepared to do anything to end your life (for e xample, collected pills, obtained a gun, gave away valuables, went to e roof but didn't jump)? No 8. If YES, was this within the past 3 months? Response not required due to responses to other questions. /mikal/ LEXIE PEREZ,DIVISION FIELD INSPECTOR NURSE Signed: 01/07/2022 09:01
--- OUTSIDE RECORDS SUMMARY | 2022-06-25 19:35 | XMS_ITS | Encounter Summary ---
:1950 Author Organization [facility] Address [address] [place] [address] Support Name Relationship Address Phone MADELIN MANTILLA Unavailable [address] [phone] [place] [address] MADELIN MANTILLA Unavailable [address] [phone] [place] [address] DHAVAL MANTILLA Unavailable [address] [place] [address] Insurance Providers: All historical and current Section [...] MEDICARE MEDICARE PART Jul 18, PART B [id number] ANNALEE BRYANIENT (WNR) (M) B 2014A [phone] ,REGI MEDICARE MEDICARE PART Apr 17, PART A [id number] 800 ANNALEE Cardenas ATIENT (WNR) (M) A [phone] ,[place] Selected Encounter This section includes the information on record at [place] for the Encounter. Date/Time Encounter Type Encounter Reason Provider Source Description Sep 28, 2021 ADM SARSCOV2 GENERAL INTERNAL ICD-10-CM Z23 TRINY SUNSHINE 10:50 AM 30MCG/0.3ML BST MEDICINE Encounter for A M immunization with Provider Comments: Encounter for Immunization IHE Encounter Template Text not used by [place] Assessments - Encounter Diagnoses This section includes the primary and secondary diagnoses documented for the Encounter. Date/Time Primary/Secondary Diagnosis Name Provider Source Diagnosis Sep 28, 2021 PRIMARY Encounter for PARKER SUNSHINE [facility] [place] 10:52 AM immunization A M [facility] Plan of Treatment: Future Appointments (+ 6 months) and Future Tests (+/- 45 days) The Plan of Treatment section includes future care activities for the patient from all [place] [facility] This section includes future appointments and future orders which are active, pending orscheduled.Future Appointments This section includes appointments that were scheduled to occur 6 months from the date of the Encounter, up to a maximum of 20 appointments. The data comes from all [place] treatment facilities. Appointment Date/Time Appointment Type Appointment Facili ty Name Nov 20, 2021 06:18 PM AMBULATORY - [facility] Jan 07, 2022 08:46 AM AMBULATORY - MEDICINE [facility] Jan 11, 2022 09:00 AM AMBULATORY [facility] Jan 11, 2022 10:00 AM AMBULATORY [facility] Feb 17, 2022 08:09 PM AMBULATORY [facility] Mar 05, 2022 12:30 PM AMBULATORY [facility] Mar 05, 2022 01:30 PM AMBULATORY - [facility] Mar 12, 2022 11:00 AM AMBULATORY - [facility] March 19, 2022 06:03 PM AMBULATORY [facility] Lab Results: +/- 30 days of the encounter This section includes the Chemistry and Hematology Lab Results on record with [place] for the patient. Radiology Reports and Pathology Reports are provided separately, in subsequent sections.Lab Results This section contains the Chemistry/Hematology Results that were resulted 30 days before or 30 daysafter the date of the Encounter. Date/Time Source Result Type Result - Unit Interpretation Reference Range Comment Sep 28, 2021 [facility] RHEUMATOLOGY CHEM PANEL Spec imen Type: PLASMA 09:18 AM No comment enter ed. Ordering Provid er: NAS PERRY Report Released Date/Time: Jun 19, 2021 09:41 AM Reporting Lab: [facility] [address] [facility] [address] Performing Lab: [facility] [address] [facility] [address] [facility] [address] CREATININE 1.1 0.7-1.2 ALKALINE PHOSPHATASE 76 40-150 ALT/SGPT 24 <55 AST/SGOT 44 H <34 C-REACTIVE PROTEIN 31.53 H <5.00 ESTIMATED GFR(eGFR) 66 >60 Sep 28, 2021 [facility] RHEUMATOLOGY HEME PANEL Spec imen Type: BLOOD 09:18 AM Comment: Automa david Roblero Performed Ordering Provid er: NAS PERRY Report Released Date/Time: Jun 19, 2021 09:41 AM Reporting Lab: [facility] [address] [facility] [id number] Performing Lab: [facility] [address] [facility] [id number] WBC 11.98 H 4.0-11.0 RBC 4.01 L [...] 2020 09:04 /min mm[Hg] in lb IS ME AM [facility] Immunizations: All administered on the encounter date This section contains immunizations associated to the Encounter. Immunization Series Date Issued Reaction Comments COVID-19 (8Trip), MRNA, LNP-S, 3 Sep 28, 2021 PRF; [id number]; 04/16/2022 PF, 30 MCG/0.3 ML DOSE Social History: Smoking Status (Most current) and Tobacco Use (All prior to encounter date) This section includes the most current, and the historical, smoking and tobacco-related health factors from the [place] facility where the Encounter took place.Current Smoking Status This section includes the most current smoking, or tobacco-related health factor, from the [place] facility where the Encounter took place. Date/Time Current Smoking Status Comment Facility Jun 01, 2021 02:00 PM [place]-TOBACCO NEVER USED [place] [facility] Tobacco Use History This section includes a history of the smoking, or tobacco- related health factors, that were collected on or before the date of the Encounter. The data comes from the [facility] where the Encounter took place. Date/Time Smoking Status/Tobacco Use Comment [facility] Dec 31, 2019 10:54 AM VA-TOBACCO FORMER USER [facility] Dec 31, 2019 10:54 AM [facility] QUIT < [facility] March 23, 2019 09:53 AM VA-TOBACCO FORMER USER [facility] March 23, 2019 09:53 AM [facility]-TOBACCO QUIT < [facility] Jun 10, 2018 10:00 AM CURRENT TOBACCO USER [place] [facility] May 10, 2018 07:27 PM INPT TOBACCO COUNSELING [place] [facility] May 10, 2018 07:27 PM [place]ACCO [place] [facility] Aug 29, 2017 09:55 AM FORMER TOBACCO USE <1Y [facility] May 26, 2017 10:51 PM [facility] May 26, 2017 10:51 PM [place]PT [place]ACCO US[place] [facility] May 03, 2017 09:34 PM INPT TOBACCO COUNSELING [place] [facility] May 03, 2017 09:34 PM INPT TOBACCO US[place] [facility] Sep 18, 2016 01:36 PM FORMER TOBACCO USE <1Y [facility] Aug 10, 2016 03:54 PM INPT TOBACCO USE - PT REFUSED [facility] Aug 01, 2016 06:48 PM [facility] Aug 01, 2016 06:48 PM [place] [facility] Feb 08, 2015 09:57 AM CURRENT TOBACCO USER [place] [facility] Nov 29, 2013 10:37 AM CURRENT TOBACCO USER [place] [facility] Nov 26, 2013 11:09 AM PATIENT IS TOBACCO USER [place] [facility] Nov 27, 2012 12:12 PM CURRENT TOBACCO USER [place] [facility] Dec 27, 2011 09:44 AM CURRENT TOBACCO USER [place] [facility] Jan 22, 2011 02:38 PM CURRENT TOBACCO USER [place] [facility] Mar 13, 2010 12:48 PM CURRENT TOBACCO USER [place] [facility] Advance Directives: All historical and current Section Date Range: From patient's date of to the date document was created. This section includes ALL of a patient's completed or amended [place] Advance and Rescinded Directives. The entries below indicate that a directive exists for the patient, but an actual copy is not included with this document. The data comes from all [place] facilities. Date Advance Directives Provider Source Feb 25, 2018 ADVANCE DIRECTIVE AURORA MORALES [facility] Feb 24, 2018 ADVANCE DIRECTIVE DISCUSSION ANDREWAURORA K [facility] May 26, 2017 CLINICAL WARNING SHANICEGONZALOMAGO Wood [facility] May 03, 2017 CLINICAL WARNING DANIELCANDIDAJANAYSRAYASSINE [facility] Aug 10, 2016 CLINICAL WARNING ISABEL BARCENAS [facility] Aug 02, 2016 CLINICAL WARNING AURORA ALMAZAN Carla [facility] Encounter Notes: All associated encounter notes This section contains the clinical notes associated to the Encounter. Date/Time Encounter Note(s) Provider Source Sep 28, 2021 10:51 AM NURSING IMMUNIZATION NOTE: ANDREW SUNSHINE [facility] LOCAL TITLE: [facility] OUTPATIENT COVID VACCINE ADM INISTRATION STANDARD TITLE: NURSING IMMUNIZATION NOTE DATE OF NOTE: SEP 28, 2021@10:51 ENTRY DATE: SEP 28, 2021@10:51:26 AUTHOR: ANDREW SUNSHINE EXP COSIGNER: URGENCY: STATUS: COMPLETED The patient was given the VIS for this vaccine w the [facility] lists the benefits and side effects of the vaccine and which reviews th e risks of the vaccine. The fact sheet was reviewed with the patient and they were given an opportunity to ask questions. The patient denied any pr ior severe reaction to this vaccine or its components or a severe allergic reaction suc h as anaphylaxis to any vaccine or to any injectable therapy. The patien t gave verbal consent to receive the vaccine. Booster Dose: The patient received [employer] COVID-19 Vaccine 0.3 ml IM. Series: Series 3 MVX (Manuf); Lot#; Exp Date: PRF; [id number]; 04/16 Administration Anatomic site: Right Deltoid Vaccine administered without complications. The patient was advised to remain in the facility for 15 minutes p ost vaccination. The patient was given a completed COVID-19 vaccination record card, a copy of the [place] Side Effects and Adverse Events Reporting Fact Sheet and ins tructed on how to report any adverse reactions. /mikal/ ANDREW SUNSHINE robot programmer Signed: 09/28/2021 10:52
--- OUTSIDE RECORDS SUMMARY | 2022-06-25 19:35 | XMS_ITS | Encounter Summary ---
:1950 Author Organization [facility] Address [address] [place] [address] Support Name Relationship Address Phone MADELIN MANTILLA Unavailable [address] [phone] [place] [address] MADELIN MANTILLA Unavailable [address] [phone] [place] [address] DHAVAL MANTILLA Unavailable [address] [place] [address] Insurance Providers: All historical and current Section [...] MEDICARE MEDICARE PART Jul 18, PART B [id number] ANNALEE BUSTILLO (WNR) (M) B 2014A [phone] ,REGI MEDICARE MEDICARE PART Apr 17, PART A [id number] 800 ANNALEE BRYANIENT (WNR) (M) A 2012A [phone] ,REGI Selected Encounter This section includes the information on record at [place] for the Encounter. Date/Time Encounter Type Encounter Description Reason Provider Source Dec 06, 2021 03:17 Outpatient Encounter RHEUMATOLOGY/ARTHRITI PM S IHE Encounter Template Text not used by [place] Plan of Treatment: Future Appointments (+ 6 months) and Future Tests (+/- 45 days) The Plan of Treatment section includes future care activities for the patient from all [place] treatmentfacilities. This section includes future appointments and future orders which are active, pending orscheduled.Future Appointments This section includes appointments that were scheduled to occur 6 months from the date of the Encounter, up to a maximum of 20 appointments. The data comes from all [place] treatment facilities. Appointment Date/Time Appointment Type Appointment Facili ty Name Jan 07, 2022 08:46 AM AMBULATORY - MEDICINE [facility] Jan 11, 2022 09:00 AM AMBULATORY - [facility]IC[facility] Jan 11, 2022 10:00 AM AMBULATORY - [facility] Feb 17, 2022 08:09 PM AMBULATORY - NONE [facility] Mar 05, 2022 12:30 PM AMBULATORY - NONE [facility] Mar 05, 2022 01:30 PM AMBULATORY - MEDICINE [facility] Mar 12, 2022 11:00 AM AMBULATORY - [facility] March 19, 2022 06:03 PM AMBULATORY - NONE [facility] April 10, 2022 11:00 AM AMBULATORY - MEDICINE [facility] April 10, 2022 11:30 AM AMBULATORY - MEDICINE [facility] April 12, 2022 08:30 AM AMBULATORY - [facility]ICINE [facility] May 07, 2022 09:00 AM AMBULATORY - [facility]ICINE [facility] May 15, 2022 10:30 AM AMBULATORY - [facility]ICINE [facility] May 15, 2022 10:40 AM AMBULATORY - MEDICINE [facility] May 15, 2022 11:30 AM AMBULATORY - [facility]ICINE [facility] May 15, 2022 01:00 PM AMBULATORY - [facility]ICINE [facility] May 15, 2022 01:45 PM AMBULATORY - NONE [facility] Social History: Smoking Status (Most current) and Tobacco Use (All prior to encounter date) This section includes the most current, and the historical, smoking and tobacco-related health factors from the [place] facility where the Encounter took place.Current Smoking Status This section includes the most current smoking, or tobacco-related health factor, from the [place] facility where the Encounter took place. Date/Time Current Smoking Status Comment Facility Jun 01, 2021 02:00 PM [facility] Tobacco Use History This section includes a history of the smoking, or tobacco- related health factors, that were collected on or before the date of the Encounter. The data comes from the [place] facility where the Encounter took place. Date/Time Smoking Status/Tobacco Use Comment Katherine gillis Dec 31, 2019 10:54 AM VA-TOBACCO FORMER USER [place] [facility] Dec 31, 2019 10:54 AM [place]-TO[place] QUIT < 1 YEAR [facility] March 23, 2019 09:53 AM VA-TOBACCO FORMER USER [place] [facility] March 23, 2019 09:53 AM VA-TOBACCO QUIT < 1 YEAR [place] [facility] Jun 10, 2018 10:00 AM CURRENT TOBACCO USER [place] [facility] May 10, 2018 07:27 PM INPT TOBACCO COUNSELING [place] [facility] May 10, 2018 07:27 PM INPT TOBACCO US[place] [facility] Aug 29, 2017 09:55 AM FORMER TOBACCO USE <1Y [place] [facility] May 26, 2017 10:51 PM INPT TOBACCO COUNSEL[place] [facility] May 26, 2017 10:51 PM INPT TOBACCO USER [place] [facility] May 03, 2017 09:34 PM INPT TOBACCO COUNSELING [place] [facility] May 03, 2017 09:34 PM INPT [place] [facility] Sep 18, 2016 01:36 PM FORMER TOBACCO USE <1Y [place] [facility] Aug 10, 2016 03:54 PM INPT TOBACCO USE - PT REFUSED [facility] Aug 01, 2016 06:48 PM [facility] Aug 01, 2016 06:48 PM INPT TOBACCO USER [place] [facility] Feb 08, 2015 09:57 AM CURRENT TOBACCO USER [place] [facility] [facility] Nov 29, 2013 10:37 AM CURRENT TOBACCO USER [place] [facility] Nov 26, 2013 11:09 AM PATIENT IS TOBACCO USER [place] [facility] Nov 27, 2012 12:12 PM CURRENT TOBACCO USER [place] [facility] [facility] Dec 27, 2011 09:44 AM CURRENT TOBACCO USER [place] [facility] Jan 22, 2011 02:38 PM CURRENT TOBACCO USER [place] [facility] Mar 13, 2010 12:48 PM [facility] Advance Directives: All historical and current Section Date Range: From patient's date of to the date document was created. This section includes ALL of a patient's completed or amended [place] Advance and Rescinded Directives. The entries below indicate that a directive exists for the patient, but an actual copy is not included with this document. The data comes from all [facility]. Date Advance Directives Provider Source Feb 25, 2018 ADVANCE DIRECTIVE AURORA MORALES [facility] Feb 24, 2018 ADVANCE DIRECTIVE DISCUSSION AURORA MORALES [facility] May 26, 2017 CLINICAL WARNING MAGO CONTRERAS [facility] May 03, 2017 CLINICAL WARNING SARIAH ENGLE [facility] Aug 10, 2016 CLINICAL WARNING ISABEL BARCENAS [facility] Aug 02, 2016 CLINICAL WARNING AURORA ALMAZAN [facility] Encounter Notes: All associated encounter notes This section contains the clinical notes associated to the Encounter. Date/Time Encounter Note(s) Provider Source Dec 06, 2021 03:17 PM [facility] TITLE: APPOINTMENT SCHEDULING NOTE JOSE ALBERTO STANDARD TITLE: REPORT OF CONTACT DATE OF NOTE: DEC 06, 2021@15:17 ENTRY DATE: DEC 06, 2021@15:17:42 AUTHOR: STEPHEN BOB EXP COSIGNER: URGENCY: STATUS: COMPLETED Return to Clinic Order needing clarification Activity: 09/28/2021 10:08 New Order entered by NANCY PERRY (PHYSICIAN) Order Text: Return to [facility] [place] on or a round ( Dec 27, 2021) for a total of 1 appointment(s) Prerequisites: Labs (NON-FASTING) Labs were not ordered, order labs and flag orde r to author of note Other: PATIENT AGREES TO LAB DRAW ONE HOUR PRIOR. /mikal/ STEPHEN BOB MSA Signed: 12/06/2021 15:21 Receipt Acknowledged By: * AWAITING SIGNATURE * NAS PERRY
--- OUTSIDE RECORDS SUMMARY | 2022-06-25 19:35 | XMS_ITS | Encounter Summary ---
:1950 Author Organization [facility] Address [address] [place] [address] Support Name Relationship Address Phone MADELIN MANTILLA Unavailable [phone] [place] [address] MADELIN MANTILLA Unavailable [phone] [place] [address] DHAVAL MANTILLA Unavailable [address] [place] [address] Insurance Providers: All historical and current Section [...] MEDICARE MEDICARE PART Jul 18, PART B [id number] ANNALEE BUSTILLO (WNR) (M) B 2014A [phone] ,REGI MEDICARE MEDICARE PART Apr 17, PART A [id number] [phone] ANNALEE BUSTILLO (WNR) (M) A 2012A [phone] ,REGI Selected Encounter This section includes the information on record at [place] for the Encounter. Date/Time Encounter Type Encounter Reason Provider Source Description Feb 17, 2022 08:09 Outpatient ADMIN BAKARI DICKEY PM Encounter (MASNONCT) IHE Encounter Template Text not used by [place] Plan of Treatment: Future Appointments (+ 6 [...] 20 appointments. The data comes from all [place] treatment facilities. Appointment Date/Time Appointment Type Appointment Facili ty Name Mar 05, 2022 12:30 PM AMBULATORY - NONE [facility] Mar 05, 2022 01:30 PM AMBULATORY - MEDICINE [facility] Mar 12, 2022 11:00 AM AMBULATORY - MEDICINE [facility] March 19, 2022 06:03 PM AMBULATORY - NONE [facility] April 10, 2022 11:00 AM AMBULATORY - MEDICINE [facility] April 10, 2022 11:30 AM AMBULATORY - MEDICINE [facility] April 12, 2022 08:30 AM AMBULATORY - MEDICINE [facility] May 07, 2022 09:00 AM AMBULATORY - MEDICINE [facility] May 15, 2022 10:30 AM AMBULATORY - MEDICINE [facility] May 15, 2022 10:40 AM AMBULATORY - MEDICINE [facility] May 15, 2022 11:30 AM AMBULATORY - MEDICINE [facility] May 15, 2022 01:00 PM AMBULATORY - MEDICINE [facility] May 15, 2022 01:45 PM AMBULATORY - NONE [facility] Jun 19, 2022 01:15 PM AMBULATORY - NONE [facility] Jun 24, 2022 05:53 PM AMBULATORY - MEDICINE [facility] Jul 12, 2022 09:20 AM AMBULATORY - SURGERY [facility] Jul 19, 2022 08:00 AM AMBULATORY - MEDICINE [facility] Jul 19, 2022 09:00 AM AMBULATORY - MEDICINE [facility] Lab Results: +/- 30 days of the encounter This section includes the Chemistry and Hematology Lab Results on record with [place] for the patient. Radiology Reports and Pathology Reports are provided separately, in subsequent sections.Lab Results This section contains the Chemistry/Hematology Results that were resulted 30 days before or 30 daysafter the date of the Encounter. Date/Time Source Result Type Result - Unit Interpretation Reference Range Comment Mar 05, 2022 11:47 AM [facility] HEMOGLOBIN A1C Specim en Type: BLOOD No comment enter ed. Ordering Provid er: MARYELLEN LEON Report Released Date/Time: Jun 01, 2021 04:21 PM Reporting Lab: [facility] [address] [facility] [id number] Performing Lab: [facility] [address] [facility] [id number] HEMOGLOBIN A1C 5.6 4.0-6.0 Mar 05, 2022 11:47 [facility] LIPID PANEL,NON-FASTING S pecimen Type: PLASMA AM No comment enter ed. Ordering Provid er: MARYELLEN LEON Report Released Date/Time: Jun 01, 2021 04:21 PM Reporting Lab: [facility] [address] [facility] [address] Performing Lab: [facility] [address] [facility] [address] CHOLESTEROL 188 <199 .HDL 83 >40 LDL CALCULATION 78 <99 VLDL CALCULATION 27 <29 NON HDL CHOLESTEROL 105 <129 TRIG(NON FASTING) 133 <149 Mar 05, 2022 11:47 [facility] BASIC METABOLIC Specimen Type: PLASMA AM PANEL+MG No comment enter ed. Ordering Provid er: MARYELLEN LEON Report Released Date/Time: Jun 01, 2021 04:21 PM Reporting Lab: [facility] [address] [facility] [id number] Performing Lab: [facility] [address] [facility] [address] CREATININE 1.0 0.7-1.2 UREA NITROGEN 21 8-26 GLUCOSE 112 H 74-100 SODIUM 139 136-145 POTASSIUM 4.9 3.5-5.1 CHLORIDE 103 98-107 CO2 25 22-29 CALCIUM 9.6 8.4-10.2 MAGNESIUM 1.6 1.6-2.6 ANION GAP 11 5-15 CREAT EGFR(CKD-EPI) 79 >60 Mar 05, 2022 11:47 AM [facility] AST/SGOT Specim en Type: PLASMA No comment enter ed. Ordering Provid er: MARYELLEN LEON Report Released Date/Time: Mar 05, 2022 01:38 PM Reporting Lab: [facility] [address] [facility] [address] Performing Lab: [facility] [address] AST/SGOT 21 <34 Mar 05, 2022 11:47 AM [facility] ALT/SGPT Specim en Type: PLASMA No comment enter ed. Ordering Provid er: MARYELLEN LEON Report Released Date/Time: Mar 05, 2022 01:38 PM Reporting Lab: [facility] [address] [facility] [address] Performing Lab: [facility] [address] ALT/SGPT 15 <55 Social History: Smoking Status (Most current) and Tobacco Use (All prior to encounter date) This section includes the most current, and the historical, smoking and tobacco-related health factors from the [place] facility where the Encounter took place.Current Smoking Status This section includes the most current smoking, or tobacco-related health factor, from the [place] facility where the Encounter took place. Date/Time Current Smoking Status Comment Facility Jun 01, 2021 02:00 PM VA-TOBACCO NEVER USED [facility] Tobacco Use History This section includes a history of the smoking, or tobacco- related health factors, that were collected on or before the date of the Encounter. The data comes from the [place] facility where the Encounter took place. Date/Time Smoking Status/Tobacco Use Comment [facility] Dec 31, 2019 10:54 AM VA-TOBACCO FORMER USER [facility] Dec 31, 2019 10:54 AM VA-TOBACCO QUIT < 1 YEAR M [facility] March 23, 2019 09:53 AM VA-TOBACCO FORMER USER [facility] March 23, 2019 09:53 AM VA-TOBACCO QUIT < 1 YEAR M [facility] Jun 10, 2018 10:00 AM CURRENT TOBACCO USER [facility] May 10, 2018 07:27 PM [place] [facility] [facility] May 10, 2018 07:27 PM IN[facility]ACCO [facility] Aug 29, 2017 09:55 AM FORMER TOBACCO USE <1Y [facility] May 26, 2017 10:51 PM [facility] May 26, 2017 10:51 PM [facility] May 03, 2017 09:34 PM [facility] May 03, 2017 09:34 PM [facility] [place]AC[place] [facility] [facility] [facility] Sep 18, 2016 01:36 PM FORMER TOBACCO USE <1Y [facility] Aug 10, 2016 03:54 PM INPT TOBACCO USE - PT REFUSED [facility] Aug 01, 2016 06:48 PM [facility] [facility] Aug 01, 2016 06:48 PM [facility]AC[facility] Feb 08, 2015 09:57 AM CURRENT [facility]AC[facility] Nov 29, 2013 10:37 AM CURRENT TOBACCO USER [facility] Nov 26, 2013 11:09 AM PATIENT [place] TOBACCO USER [place] [facility] Nov 27, 2012 12:12 PM CURRENT TOBACCO USER [facility] Dec 27, 2011 09:44 AM CUR[facility] Jan 22, 2011 02:38 PM CURRENT TOBACCO USER [facility] Mar 13, 2010 12:48 PM CURRENT TOBACCO USER [facility] Advance Directives: All historical and current Section Date Range: From patient's date of to the date document was created. This section includes ALL of a patient's completed or amended [place] Advance and Rescinded Directives. The entries below indicate that a directive exists for the patient, but an actual copy is not included with this document. The data comes from all [facility]. Date Advance Directives Provider Source Feb 25, 2018 ADVANCE DIRECTIVE [facility] Feb 24, 2018 ADVANCE DIRECTIVE DISCUSSION [facility] May 26, 2017 CLINICAL WARNING MAGO CONTRERAS [facility] May 03, 2017 CLINICAL WARNING SARIAH ENGLE [facility] Aug 10, 2016 CLINICAL WARNING ISABEL BARCENAS [facility] Aug 02, 2016 CLINICAL WARNING [facility] Encounter Notes: All associated encounter notes This section contains the clinical notes associated to the Encounter. Date/Time Encounter Note(s) Provider Source Feb 17, 2022 08:11 PM NONVA NOTE: VANNA CHAVARRIA [facility] LOCAL TITLE: COMMUNITY CARE-[facility]ZBIETA SELF PRESENTIN G CARE COORD PLAN STANDARD TITLE: NONVA NOTE DATE OF NOTE: FEB 17, 2022@20:11 ENTRY DATE: FEB 17, 2022@20:12 AUTHOR: VANNA CHAVARRIA EXP COSIGNER: URGENCY: STATUS: COMPLETED COMMUNITY CARE-ELZBIETA SELF PRESENTING CARE CO ORD PLAN NOTE Has ADDENDA Emergency Notification Intake Date Presenting to the Facility: Feb Method of Contact: [facility] Hospital Name: Hospital: [facility] Address: [address] [place] [address] City: [place] State: [place] Zip Code: [facility] Facility Point of Contact: Name: [facility] Chief complaint: Anemia/multiple medical complai nts Primary Diagnosis: Disposition Treatment in progress Sent ECAT email Per the Nursing Environmental Test Technician, there are no beds at the [facility]. /mikal/ VANNA CHAVARRIA BINGO CLERK ON DUTY Signed: 02/17/2022 20:16 Receipt Acknowledged By: 02/18/2022 14:21 /mikal/ BAKARI CHASE RN Utilization Management 02/18/2022 ADDENDUM STATUS: COMPLETED NOTIFICATION ID#[id number] STATUS:Closed - Approved for 1703 /mikal/ NIRALI BARRON INNOVATION ANALYST (AOD) Signed: 02/18/2022 11:45 02/18/2022 ADDENDUM STATUS: COMPLETED Faxed for records. /mikal/ BAKARI CHASE RN Utilization Management Signed: 02/18/2022 14:20 02/21/2022 ADDENDUM STATUS: COMPLETED [id number] /mikal/ VAZQUEZ DAVIS INNOVATION ANALYST Signed: 02/21/2022 19:23 02/27/2022 ADDENDUM STATUS: COMPLETED ER [place] 02/17/22 dx CP Transferred to [facility] HIMS received and imported NONVA ER Note, see no te 02/17/22 /mikal/ BAKARI CHASE RN Utilization Management Signed: 02/27/2022 16:23 Receipt Acknowledged By: 02/27/2022 16:27 /es/ MARYELLEN LEON MD Staff Physician 02/27/2022 16:29 /es/ STUART BERNSTEIN,MALIKA REGISTERED NURSE for HERI BRAUN
--- OUTSIDE RECORDS SUMMARY | 2022-06-25 19:35 | XMS_ITS | Encounter Summary ---
:1950 Author Organization [facility] Address [address] [place] [address] Support Name Relationship Address Phone MADELIN MANTILLA Unavailable [address] [phone] [place] [address] MADELIN MANTILLA Unavailable [address] [phone] [place] [address] DHAVAL MANTILLA Unavailable [address] [place] [address] Insurance Providers: All historical and current Section [...] MEDICARE MEDICARE PART Jul 18, PART B [id number] ANNALEE BRYANIENT (WNR) (M) B 2014A [phone] ,[place] MEDICARE MEDICARE PART Apr 17, PART A [id number] ANNALEE BRYANIENT (WNR) (M) A [id number] [phone] ,[place] Selected Encounter This section includes the information on record at [place] for the Encounter. Date/Time Encounter Type Encounter Reason Provider Source Description Feb 18, 2022 02:24 Outpatient [facility] KAITLIN CHASE PM Encounter CONSULT IHE Encounter Template Text not used by [facility] Plan of Treatment: Future Appointments (+ 6 [...] 20 appointments. The data comes from all [place] treatment facilities. Appointment Date/Time Appointment Type Appointment Facili ty Name Mar 05, 2022 12:30 PM AMBULATORY - NONE [facility] Mar 05, 2022 01:30 PM AMBULATORY - MEDICINE [facility] Mar 12, 2022 11:00 AM AMBULATORY - MEDICINE [facility] March 19, 2022 06:03 PM AMBULATORY - NONE [facility] April 10, 2022 11:00 AM AMBULATORY - MEDICINE [facility] April 10, 2022 11:30 AM AMBULATORY - MEDICINE [facility] April 12, 2022 08:30 AM AMBULATORY - MEDICINE [facility] May 07, 2022 09:00 AM AMBULATORY - MEDICINE [facility] May 15, 2022 10:30 AM AMBULATORY - MEDICINE [facility] May 15, 2022 10:40 AM AMBULATORY - MEDICINE [facility] May 15, 2022 11:30 AM AMBULATORY - MEDICINE [facility] May 15, 2022 01:00 PM AMBULATORY - MEDICINE [facility] May 15, 2022 01:45 PM AMBULATORY - NONE [facility] Jun 19, 2022 01:15 PM AMBULATORY - NONE [facility] Jun 24, 2022 05:53 PM AMBULATORY - MEDICINE [facility] Jul 12, 2022 09:20 AM AMBULATORY - SURGERY [facility] Jul 19, 2022 08:00 AM AMBULATORY - MEDICINE [facility] Jul 19, 2022 09:00 AM AMBULATORY - MEDICINE [facility] Lab Results: +/- 30 days of the encounter This section includes the Chemistry and Hematology Lab Results on record with [place] for the patient. Radiology Reports and Pathology Reports are provided separately, in subsequent sections.Lab Results This section contains the Chemistry/Hematology Results that were resulted 30 days before or 30 daysafter the date of the Encounter. Date/Time Source Result Type Result - Unit Interpretation Reference Range Comment Mar 05, 2022 11:47 AM [facility] HEMOGLOBIN A1C Specim en Type: BLOOD No comment enter ed. Ordering Provid er: MARYELLEN LEON Report Released Date/Time: Jun 01, 2021 04:21 PM Reporting Lab: [facility] [address] [facility] [id number] Performing Lab: [facility] [address] [facility] [address] [facility] [id number] HEMOGLOBIN A1C 5.6 4.0-6.0 Mar 05, 2022 11:47 [facility] LIPID PANEL,NON-FASTING S pecimen Type: PLASMA AM No comment enter ed. Ordering Provid er: MARYELLEN LEON Report Released Date/Time: Jun 01, 2021 04:21 PM Reporting Lab: [facility] [address] [facility] [id number] Performing Lab: [facility] [address] [facility] [address] CHOLESTEROL 188 <199 .HDL 83 >40 LDL CALCULATION 78 <99 VLDL CALCULATION 27 <29 NON HDL CHOLESTEROL 105 <129 TRIG(NON FASTING) 133 <149 Mar 05, 2022 11:47 [facility] BASIC METABOLIC Specimen Type: PLASMA AM PANEL+MG No comment enter ed. Ordering Provid er: MARYELLEN LEON Report Released Date/Time: Jun 01, 2021 04:21 PM Reporting Lab: [facility] [address] [facility] [id number] Performing Lab: [facility] [address] [facility] [address] CREATININE 1.0 0.7-1.2 UREA NITROGEN 21 8-26 GLUCOSE 112 H 74-100 SODIUM 139 136-145 POTASSIUM 4.9 3.5-5.1 CHLORIDE 103 98-107 CO2 25 22-29 CALCIUM 9.6 8.4-10.2 MAGNESIUM 1.6 1.6-2.6 ANION GAP 11 5-15 CREAT EGFR(CKD-EPI) 79 >60 Mar 05, 2022 11:47 AM [facility] AST/SGOT Specim en Type: PLASMA No comment enter ed. Ordering Provid er: MARYELLEN LEON Report Released Date/Time: Mar 05, 2022 01:38 PM Reporting Lab: [facility] [address] [facility] [address] Performing Lab: [facility] [address] [facility] [address] AST/SGOT 21 <34 Mar 05, 2022 11:47 AM [facility] ALT/SGPT Specim en Type: PLASMA No comment enter ed. Ordering Provid er: MARYELLEN LEON Report Released Date/Time: Mar 05, 2022 01:38 PM Reporting Lab: [facility] [address] [facility] [address] Performing Lab: [facility] [address] ALT/SGPT 15 <55 Social History: Smoking Status (Most current) and Tobacco Use (All prior to encounter date) This section includes the most current, and the historical, smoking and tobacco-related health factors from the [facility] where the Encounter took place.Current Smoking Status This section includes the most current smoking, or tobacco-related health factor, from the [place] facility where the Encounter took place. Date/Time Current Smoking Status Comment Facility Jun 01, 2021 02:00 PM [facility]-TOBACCO [facility] Tobacco Use History This section includes a history of the smoking, or tobacco- related health factors, that were collected on or before the date of the Encounter. The data comes from the [facility] where the Encounter took place. Date/Time Smoking Status/Tobacco Use Comment [facility] Dec 31, 2019 10:54 AM VA-TOBACCO FORMER USER [facility] Dec 31, 2019 10:54 AM [place]-TOBACCO QUIT < 1 YEAR M [facility] March 23, 2019 09:53 AM VA-TOBACCO FORMER USER [facility] March 23, 2019 09:53 AM VA-TOBACCO QUIT < 1 YEAR M [facility] Jun 10, 2018 10:00 AM CURRENT TOBACCO USER [facility] May 10, 2018 07:27 PM INPT TOBACCO COUNSELING [facility] May 10, 2018 07:27 PM [facility] Aug 29, 2017 09:55 AM FORMER TOBACCO USE <1Y [facility] May 26, 2017 10:51 PM INPT TOBACCO COUNSELING CT [facility] May 26, 2017 10:51 PM INPT TOBACCO USER [facility] May 03, 2017 09:34 PM INPT TOBACCO COUNSELING [facility] May 03, 2017 09:34 PM INPT TOBACCO USER [facility] Sep 18, 2016 01:36 PM FORMER TOBACCO USE <1Y [facility] Aug 10, 2016 03:54 PM INPT TOBACCO USE - PT REFUSED [facility] Aug 01, 2016 06:48 PM INPT TOBACCO COUNSELING CT [facility] Aug 01, 2016 06:48 PM [facility] Feb 08, 2015 09:57 AM CURRENT TOBACCO USER [facility] Nov 29, 2013 10:37 AM CURRENT TOBACCO USER [facility] Nov 26, 2013 11:09 AM PATIENT [facility]ACCO [facility] Nov 27, 2012 12:12 PM CURRENT TOBACCO USER [facility] Dec 27, 2011 09:44 AM CURRENT TOBACCO USER [facility] Jan 22, 2011 02:38 PM CURRENT TOBACCO USER [facility] Mar 13, 2010 12:48 PM CURRENT TOBACCO USER [facility] Advance Directives: All historical and current Section Date Range: From patient's date of to the date document was created. This section includes ALL of a patient's completed or amended [place] Advance and Rescinded Directives. The entries below indicate that a directive exists for the patient, but an actual copy is not included with this document. The data comes from all [facility]. Date Advance Directives Provider Source Feb 25, 2018 ADVANCE DIRECTIVE AURORA MORALES [facility] Feb 24, 2018 ADVANCE DIRECTIVE DISCUSSION AURORA MORALES [facility] May 26, 2017 CLINICAL WARNING MAGO CONTRERAS [facility] May 03, 2017 CLINICAL WARNING SARIAH ENGLE [facility] Aug 10, 2016 CLINICAL WARNING ISABEL BARCENAS [facility] Aug 02, 2016 CLINICAL WARNING AURORA ALMAZAN [facility] Encounter Notes: All associated encounter notes This section contains the clinical notes associated to the Encounter. Date/Time Encounter Note(s) Provider Source Feb 18, 2022 02:24 NONVA NOTE: BAKARI CHASE [facility] PM LOCAL TITLE: COMMUNITY CARE-ELZBIETA SELF PRESENTIN G CARE COORD PLAN STANDARD TITLE: NONVA NOTE DATE OF NOTE: FEB 18, 2022@14:24 ENTRY DATE: FEB 18, 2022@14:24:36 AUTHOR: BAKARI CHASE EXP COSIGNER: URGENCY: STATUS: COMPLETED [facility]ITY [facility]ARE-ELZBIETA SELF PRESENTING CARE CO ORD PLAN NOTE Has ADDENDA Emergency Notification Intake Date Presenting to the Facility: Feb Method of Contact: chart review/JLV review for preceding EOC Sharepoint Administrator emailed ECAT for notification [facility] Name: Hospital: [facility] Address: City: [place] State: [place] Zip Code: Phone : Community Facility Point of Contact: Name: Phone: Chief complaint: chest pain Primary Diagnosis: Disposition Admitted Route of Admission: Direct Admitom [place] Date of Admission: Feb Admitting Diagnosis: chest pain Community Care Provider: Confirm Level of Care: Acute Inpatient Care 02/18/22 Note states Formatting of this note is different from the o goyo. ANW Hospitalist Service * Progress note Date of service: 02/18/2022 Hospital Day: 2 Hospital Summary Mr. Sara Mantilla is a 71 y.o. male with a history of CAD(three stents in past), alcohol abuse(1 pint of hard liquor da francy), marijuana use, congestive heart failure, rheumatoid arthritis(H umira/prednisone and sulfasalazine) and GERD who presented to ED with episode of vomiting and sternal chest pain. Patient reports this morning having vomiting epi sode shortly after taking his pills. He reports chronically his pills make me sick. He developed sternal chest pain shortly after this vomiting episode. He denies hematemesis. He tried to tolerate some milk at home, but vomited that up as well. Initial vitals in [place] ED notable for HR 1 35 with blood pressure 140/103. EKG showed a-fib with RVR with non-spec ific ST changes. Initial labs showed lactate elevated to 5.4, Hgb 13.6 with MC V of 106. Pro-BNP 407(ULN is 125). Troponin 0.02-->0.06(0.04 indeterminate ra nge at OSH). D-dimer was negative. Cr 1.1. Chest XR without infiltrates. Lactate improved after 1.5L of fluids. Started on diltiazem. [facility] declined tra [facility]fer. Stool guaiac was positive in ED. Given ativan given concern for a lcohol withdrawal with some improvement (one pint of hard liquor daily). Pat ient transferred to [facility] for cardiology and gastroenterology consultation. Information obtained from hospital records in [facility] under [facility] Summaries and Documents, and will be uploaded up on discharge. /es/ BAKARI CHASE RN Utilization Management Signed: 02/18/2022 14:28 Receipt Acknowledged By: 02/18/2022 14:45 /es/ RACHAEL WILD, RN REGISTERED NURSE for HERI BRAUN 02/18/2022 ADDENDUM STATUS: COMPLETED [id number] Closed - Approved for 1703 /es/ VANNA CHAVARRIA [employer]OP [employer]OWER ON DUTY Signed: 02/18/2022 20:01 02/27/2022 ADDENDUM STATUS: COMPLETED [facility] 02/17 to 4/7/22 dx Multifocal atrial tachycardia (HC) (Primary Dx); Cardiovascular symptoms; Gastroesophageal reflux disease, unspecified whe ther esophagitis present Note states HOSPITALIST DISCHARGE SUMMARY * [facility] Admission Date: 02/17/2022 Discharge Date: 02/21/2022 Discharge Plan: Sara Mantilla was discharg ed to home. Principal Diagnosis Multifocal atrial tachycardia Gastritis Hospital Problem List Principal Problem: Mid sternal chest pain Active Problems: Seropositive rheumatoid arthritis (HC) Alcohol abuse Arteriosclerosis of coronary artery Benign essential hypertension Cannabis abuse Gastroesophageal reflux disease Hyperlipidemia Vomiting Atrial fibrillation (HC) ADDITIONAL COMMENTS REGARDING DIAGNOSIS SPECIFIC ITY Additional Diagnosis Information ? Hospital Course Mr. Sara Mantilla is a 71 y.o. male with a history of CAD(three stents in past), alcohol abuse(1 pint of hard liquor da francy), marijuana use, congestive heart failure, rheumatoid arthritis(H umira/prednisone and sulfasalazine) and GERD who presented to ED with episode of vomiting and sternal chest pain. Initial vitals in [place] ED notable for HR 1 35 with blood pressure 140/103. EKG concerning for a-fib with RVR with non-specific ST changes. Initial labs showed lactate elevated to 5.4, Hgb 13.6 with MCV of 106. Pro- BNP 407(ULN is 125). Troponin 0.02-->0.06(0.04 i ndeterminate range at OSH). D-dimer was negative. Cr 1.1. Chest XR without i nfiltrates. Lactate improved after 1.5L of fluids. Started on diltiazem. [facility] d eclined transfer. Stool guaiac was positive in ED. Given ativan given co ncern for alcohol withdrawal with some improvement (one pint of hard liquor d aily). Patient transferred to [facility] for cardiology and gastroenterology consulta tion. Seen by cardiology, EKG reviewed and per cardiol ogy consistent with multifocal atrial tachycardia and not atrial fib rillation. Patient underwent a stress Myoview which was abnormal with a mediu m sized area of mild to moderate ischemia in the basal mid and apical in ferior and infero- lateral best. Stress ECG negative for ischemia. EF 65%. Patient underwent coronary angiogram on February 20, 2022 which showed no obstr uctive disease. Cardiology recommends ongoing outpatient follow-up and an e xtended Holter monitor at discharge; patient elected to follow-up at the [facility] since he is known to cardiology there. With concern for GI bleeding patient underwent e ndoscopy on 02/19/2022 which showed gastritis. Recommend PPI twice daily for 2 months and then daily indefinitely. Avoid NSAIDs and alcohol. Recommen d outpatient colonoscopy with [facility]. Patient did not experience alcohol withdra wal this admission. Recommendations for Outpatient Provider * PCP: [facility] (Inactive) Recommendations for outpatient provider Specific recommendations to be addressed at the follow up visit: no specific recommendations, routine post-hospit al and medical follow-up. Medication regimen changes: see Hospital Course above. Follow-up labs/imaging: none Other specialty follow-up not included in [place] ord ers: None Special considerations: none. Functional evaluations: Fall Risk: Total Score (If 5 or > is High Risk): 1 (02/21/2251) NuDESC (>/=2 abnormal): 0 (02/21/2251) MOCA: // SLUMS: Discharge Medications Your Home Medicines START taking these medicines Instructions dilTIAZem CD 120 mg extended release 24 hr capsu le For diagnoses: Multifocal atrial tachycardia (HC ) Commonly known as: CARDIZEM CD Take 1 Capsule (120 mg) by mouth once daily. Walker For diagnoses: Cardiovascular symptoms Walker with front wheels for home use. CHANGE how you take these medicines Instructions isosorbide mononitrate 60 mg extended release ta blet 24 hour For diagnoses: Cardiovascular symptoms What changed: how much to take Commonly known as: IMDUR Take 0.5 Tablets (30 mg) by mouth once daily. metoprolol tartrate 50 mg tablet For diagnoses: Multifocal atrial tachycardia (HC ) What changed: how much to take Commonly known as: LOPRESSOR Take 1 Tablet (50 mg) by mouth 2 times daily. pantoprazole 40 mg delayed-release tablet For diagnoses: Gastroesophageal reflux disease, unspecified whether esophagitis present What changed: ? how much to take ? how to take this ? when to take this ? additional instructions Commonly known as: PROTONIX Take one tab by mouth twice a day with meals for 2 weeks then once daily indefinitely. CONTINUE taking these medicines Instructions acetaminophen 500 mg tablet Commonly known as: TYLENOL EXTRA STRGTH Take 1,000 mg by mouth every 6 hours if needed. Max acetaminophen dose: 4000mg in 24 hrs. adalimumab 40 mg/0.8 mL injection Inject 40 mg subcutaneous every 2 weeks. aspirin chewable 81 mg chewable tablet Take 1 tablet by mouth once daily with a meal. atorvastatin 80 mg tablet Commonly known as: LIPITOR Take 1 tablet by mouth at bedtime. Carboxymethylcellulose Sodium 0.25 % ophthalmic solution Place 1 Drop into both eyes 4 times daily. cholecalciferol 1,000 unit tablet Commonly known as: VITAMIN D3 Take 1 Tablet by mouth once daily. fluticasone (50 mcg per actuation) nasal spray Commonly known as: FLONASE Inhale 1 Lanagan into affected nostril(s) 2 times daily if needed for Rhinitis. folic acid 1 mg tablet Take 1 Tablet by mouth once daily. loratadine 10 mg tablet Commonly known as: CLARITIN Take 1 tablet by mouth once daily. predniSONE 10 mg tablet Commonly known as: DELTASONE Take 1 Tablet by mouth once daily. sulfaSALAzine 500 mg tablet Commonly known as: AZULFIDINE Take 2 Tablets by mouth 2 times daily. Where to get your medicines These medications were sent to [facility] [address] [place] [address], [facility] [address] Hours: Open 24 Hours ? pantoprazole 40 mg delayed-release tablet These medications were sent to [facility] [place] [place] [facility] [address] ? dilTIAZem CD 120 mg extended release 24 hr cap elisa ? isosorbide mononitrate 60 mg extended release tablet 24 hour ? metoprolol tartrate 50 mg tablet You have received printed prescription(s) for [facility] medicines or supplies. Take these to your preferred pharmacy. Bring a paper prescription for each of these med ications ? Walker Pertinent Findings / Procedures First weight: 53.7 kg (118 lb 6.2 oz) (02/18/22 0400) Last weight: 52 kg (114 lb 10.2 oz) (02/21/22 0600) Labs Renal Heme GI 02/19/22 0646 02/20/22 0657 SODIUM -- 134* POTASSIUM -- 3.6 CHLORIDE -- 102 QA7OPLOZ -- 22 ANIONGAP -- 10 BUN -- 10 CREATININE -- 0.95 GLUCOSE -- 99 CALCIUM -- 8.4* MAGNESIUM 2.0 -- 02/20/22 0657 WBC 7.2 HGB 12.4* HCT 37.2 MCV 107* MCH 35.6* MCHC 33.3 RDW 13.6 PLT 160 Cardiopulmonary ID Endo COVID-19: Not on local file Micro none Imaging Chest XR done at outside ED EKG in paper chart consistent with atrial fibril lation Consultants Encounter Notes Consults from Alexis Hightower NP (Nurse Practitio ner - Family) Consults from Rolf Stallings MD (Gastroentero logy) Diet / Activity / Follow-Up After Discharge Orders and Instructions Caring for your wrist wound or incision: -Keep your arm raised when you are resting to he lp keep the swelling down. -Do not soak the wrist of your affected arm in water for four days after the procedure o r until the area has healed. -Do not strain your affected arm or lift anythin g that weighs more than five pounds for 24 hours. If your wrist begins to bleed: -Stop what you are doing. -Lie down. -Apply firm pressure to slightly above the punct ure site. -if bleeding does not stop with continuous press ure, CALL 911 Discharge instructions after receiving anesthesi a or sedation: * You have received medicine (anesthesia, sedati on or both) that made you sleepy. This will affect your ability to think c learly and make good decisions. * For your safety, you will need a responsible a dult to drive you home and to stay with you for 24 hours. * For 24 hours: - Do not drive or use any machinery. - Do not make important decisions. - Do not drink alcohol. (It is also important to not drink alcohol as long as you are taking prescription pain medicine.) Moving around after your angiogram: (wrist/arm s ite) - in the first 24 hours: begin low level activit ies - couch, bed, recliner, to and from bathroom, minimal stairs if necessar y - gradually increase your activity - do not bend or twist your wrist - do not strain you affected arm or lift anythin g that weighs more than 5 pounds for 24 hours - keep your arm raised when you are resting to h elp keep the swelling down - do not soak the wrist of your affected arm for four days after the procedure or until the area has healed - avoid: bathtub, whirlpool, swimming pool or di shwater - if you have also had a heart attack, you shoul d wait 2 weeks, and be able to climb 2 flights of stairs without chest pain or significant shortness of breath, before you resume your normal sexual act ivity Patient Cardiology Follow Up Instructions Follow up with cardiology service through the [place] healthcare system in 4-6 weeks. When to follow up: 4 to 6 weeks Patient Instruction post bladder scan Same Day D ischarge patients If unable to urinate in 6-8 hours after discharg e, return to Emergency Room with your discharge instructions. Primary Care Provider follow up appointment(s) [facility] (Inactive) When to follow up: 1 to 5 days Primary Care Provider follow up appointment(s) [facility] (Inactive) When to follow up: 1 to 5 days Regular diet: - eat a wide variety of foods, including fruits and vegetable, dairy, grains and meats - limit the amount of solid fat such as butter, margarine and shortening - get most of your fat sources from fish, nuts a nd vegetable oils Up as tolerated Get regular activity and try to walk for a total of 30 minutes per day. Start by walking for 5 to 10 minutes at one time and s lowly build to walking for 30 minutes one time. Rest is also an important part of healing. Slowl y return to your regular level of activity. Save your energy by spreading out activities that make you tired. Rest as needed. When should you be concerned? (general cardiolog y) Your health care provider is [facility] ( Inactive) Please call your health care provider if you hav e any of the following: - chest pain or discomfort that is not relieved by rest - a tightening, pressure, squeezing, or aching i n your chest or arms - swollen feet, ankles and legs more than usual - lightheadedness, dizziness, sweating, fatigue, weakness, loss of energy - fever greater than 101 degrees Fahrenheit - trouble breathing, unusual tiredness, decrease d ability to exercise - new or worsening shortness of breath - trouble breathing when lying flat - weight gain of 3 pounds in one day - weight gain of 5 pounds in one week If you are not sure about what you are feeling o r have questions about how you are feeling, stop whatever you are doing and call your clinic, ask to talk to a health care provider Do not try to deny, dismiss or make excuses for early warning signs. Call 911 right away if the signs get worse when you sit d own and rest or if you feel you are having a medical emergency FOR EMERGENCY DIAL 911 Why were you at the hospital? You were in the hospital for Fast heart rate, co ncern for heart attack but your angiogram did not show a block that needed intervention. You also have significant acid reflux and gastritis ,.Please t flaca Protonix twice a day for 2 weeks then once daily indefinitely. It was a pleasure taking care of you in the hosp ital. I wish you a speedy recovery -Lluvia Bosch MD Pending Studies Lab results that may not be resulted at time of discharge: (From admission through now) None Total time spent on discharge coordination: 45 m inutes. Patient was seen and examined today. Discussed with cardiology team. OFE Farooq Hospitalist, [facility] * Information obtained from hospital records in [facility] under [facility] Summaries and Documents sent to [facility] to be scann ed into [facility] electronic medical record in [facility] under Documents. Please review records when imported for any n eeded follow up and place appropriate specialty consults. /mikal/ BAKARI CHASE RN Utilization Management Signed: 02/27/2022 16:27 Receipt Acknowledged By: 02/27/2022 16:37 /mikal/ MARYELLEN LEON MD Staff Physician * AWAITING SIGNATURE * HERI BRAUN
--- OUTSIDE RECORDS SUMMARY | 2022-06-25 19:35 | XMS_ITS | Encounter Summary ---
:1950 [address] Organization Department [facility] Address [address] [place] [address] Support Name Relationship Address Phone MADELIN MANTILLA Unavailable [phone] [place] [address] MADELIN MANTILLA Unavailable [address] [phone] [place] [address] DHAVAL MANTILLA Unavailable [address] [place] [address] Insurance Providers: All historical and current Section Date Range: From patient's date of to the date document was created.This section includes the names of all active insurance providers for the patient. Insurance Type of Plan Start of End of Group Member Insurance Policy P atpanda's Provider Coverage Name Policy Policy Number ID Provider's [place]'s Relationship Coverage Coverage Telephone Name to Policy Number [place] MEDICARE MEDICARE PART Jul 18, PART B [id number] 800 ANNALEE BRYANIENT (WNR) (M) B 2014A [phone] ,REGI MEDICARE MEDICARE PART Apr 17, PART A [id number] 800 ANNALEE BRYANIENT (WNR) (M) A [phone] ,REGI Selected Encounter This section includes the information on record at [place] for the Encounter. Date/Time Encounter Type Encounter Description Reason Provider Source Nov 20, 2021 11:48 Outpatient Encounter TELEPHONE TRIAGE AM IHE Encounter Template Text not used by [place] Plan of Treatment: Future Appointments (+ 6 months) and Future Tests (+/- 45 days) The Plan of Treatment section includes future care activities for the patient from all [place] treatmentfacilities. This section includes future appointments and future orders which are active, pending orscheduled.Future Appointments This section includes appointments that were scheduled to occur 6 months from the date of the Encounter, up to a maximum of 20 appointments. The data comes from all [place] treatment facilities. Appointment Date/Time Appointment Type Appointment Facili ty Name Jan 07, 2022 08:46 AM [facility]ORY [facility] Jan 11, 2022 09:00 AM [facility]ULATORY [facility] Jan 11, 2022 10:00 AM AMBULATORY - MEDICINE [facility] Feb 17, 2022 08:09 PM AMBULATORY - NONE [facility] Mar 05, 2022 12:30 PM AMBULATORY - NONE [facility] Mar 05, 2022 01:30 PM [facility] Mar 12, 2022 11:00 AM [facility] March 19, 2022 06:03 PM AMBULATORY - NONE [facility] April 10, 2022 11:00 AM [facility] April 10, 2022 11:30 AM AMBULATORY - MEDICINE [facility] CS April 12, 2022 08:30 AM AMBULATORY - MEDICINE [facility] May 07, 2022 09:00 AM AMBULATORY - [facility] May 15, 2022 10:30 AM AMBULATORY - [facility]IC[facility] May 15, 2022 10:40 AM AMBULATORY - [facility] May 15, 2022 11:30 AM AMBULATORY - [facility] May 15, 2022 01:00 PM AMBULATORY - MEDICINE [facility] May 15, 2022 01:45 PM AMBULATORY - NONE [facility] Social History: Smoking Status (Most current) and Tobacco Use (All prior to encounter date) This section includes the most current, and the historical, smoking and tobacco-related health factors from the [place] facility where the Encounter took place.Current Smoking Status This section includes the most current smoking, or tobacco-related health factor, from the [place] facility where the Encounter took place. Date/Time Current Smoking Status Comment Facility Jun 01, 2021 02:00 PM [facility]CO [facility] Tobacco Use History This section includes a history of the smoking, or tobacco- related health factors, that were collected on or before the date of the Encounter. The data comes from the [place] facility where the Encounter took place. Date/Time Smoking Status/Tobacco Use Comment [facility] Dec 31, 2019 10:54 AM VA-TOBACCO FORMER USER [facility] Dec 31, 2019 10:54 AM [place]-TOBACCO QUIT < 1 YEAR [facility] March 23, 2019 09:53 AM VA-TOBACCO FORMER USER MIN [facility] March 23, 2019 09:53 AM VA-TOBACCO QUIT < 1 YEAR M [place] [facility] Jun 10, 2018 10:00 AM CURRENT TOBACCO USER [facility] May 10, 2018 07:27 PM INPT TOBACCO COUNSELING [place] [facility] May 10, 2018 07:27 PM INPT TO[place]ACCO [place] [facility] Aug 29, 2017 09:55 AM FORMER TOBACCO USE <1Y MIN [facility] May 26, 2017 10:51 PM INPT TOBACCO COUNSELING [place] [facility] May 26, 2017 10:51 PM INPT TO[place]AC[place] [facility] [facility] [facility] May 03, 2017 09:34 PM INPT TOBACCO COUNSELING [place] [facility] May 03, 2017 09:34 PM INPT TO[place]ACCO US[place] Sep 18, 2016 01:36 PM FORMER TOBACCO USE <1Y MIN [facility] Aug 10, 2016 03:54 PM INPT TOBACCO USE - PT REFUSED [facility] Aug 01, 2016 06:48 PM INPT TOBACCO COUNSELING [place] [facility] Aug 01, 2016 06:48 PM INPT TOBACCO US[place] [facility] Feb 08, 2015 09:57 AM CURRENT TOBACCO US[facility] Nov 29, 2013 10:37 AM CURRENT TOBACCO USER [facility] Nov 26, 2013 11:09 AM PATIENT [facility]ACCO [facility] Nov 27, 2012 12:12 PM CURRENT TOBACCO USER [facility] Dec 27, 2011 09:44 AM CURRENT TOBACCO USER [facility] Jan 22, 2011 02:38 PM CURRENT TOBACCO USER [facility] Mar 13, 2010 12:48 PM [facility] Advance Directives: All historical and current Section Date Range: From patient's date of to the date document was created. This section includes ALL of a patient's completed or amended [place] Advance and Rescinded Directives. The entries below indicate that a directive exists for the patient, but an actual copy is not included with this document. The data comes from all [facility]. Date Advance Directives Provider Source Feb 25, 2018 ADVANCE DIRECTIVE AURORA MORALES [facility] Feb 24, 2018 ADVANCE DIRECTIVE DISCUSSION AURORA MORALES [facility] May 26, 2017 CLINICAL WARNING MAGO CONTRERAS [facility] May 03, 2017 CLINICAL WARNING SARIAH ENGLE [facility] Aug 10, 2016 CLINICAL WARNING ISABEL BARCENAS [facility] Aug 02, 2016 CLINICAL WARNING AURORA ALMAZAN [facility] Encounter Notes: All associated encounter notes This section contains the clinical notes associated to the Encounter. Date/Time Encounter Note(s) Provider Source Nov 20, 2021 11:48 AM RE[facility] TITLE: PATIENT CONTACT NOTE STANDARD TITLE: REPORT OF CONTACT DATE OF NOTE: NOV 20, 2021@11:48 ENTRY DATE: NOV 20, 2021@11:49:02 AUTHOR: BRYN MADDOX EXP COSIGNER: URGENCY: STATUS: COMPLETED PATIENT CONTACT NOTE Has ADDENDA Patient contact Name of [place]: REGI MANTILLA Name/Relationship of Contact if other than Veter an: Date & Time of Contact: Nov@11:49 Type of Contact: Reason for Contact: Pt called the call center [facility] for COPD and a chest infection and was discharged yesterday with instructions to f/u with PCP within 1-2 days. Tape Edge Machine Operator finds no availability within th e given timeframe. Pt can be reached at the abvoe # regarding this. Minh. /abbie ARTIS 23 [facility] CALL CENTER [facility] Signed: 11/20/2021 11:52 Receipt Acknowledged By: 11/20/2021 12:27 /abbie LEON MD Staff Physician 11/20/2021 13:36 /abbie BRAUN CROSS ROLLER NURSE 11/21/2021 10:38 /abbie RIVERA ADVANCED TRAVELING AUDITOR 11/20/2021 ADDENDUM STATUS: COMPLETED please ask for YONAS of discharge summary, will re view and decide f/u /abbie LEON MD Staff Physician Signed: 11/20/2021 12:27 Receipt Acknowledged By: 11/21/2021 14:24 /abbie BRAUN CROSS ROLLER NURSE 11/20/2021 ADDENDUM STATUS: COMPLETED Contacted medical records at [facility] and requested pt's medical records be faxed over to clinic for PCP to leo nelson /es/ HERI BRAUN CROSS ROLLER NURSE Signed: 11/20/2021 13:25 11/21/2021 ADDENDUM STATUS: COMPLETED Spoke to patient this afternoon and informed him that PCP is waiting on his outside records that were requested yesterday fr [facility] to determine f/u. Patient was originally told that he was supposed to f/u in 1-2 days so he decided to go to the local ED today and they said he looked fine and to f/u with PCP whenever he recommends. Patient is currently on an antibiotic and is feeling better today. /es/ HERI BRAUN CROSS ROLLER NURSE Signed: 11/21/2021 13:57 Receipt Acknowledged By: 11/21/2021 17:31 /es/ MARYELLEN LEON MD Staff Physician 11/23/2021 ADDENDUM STATUS: COMPLETED PCP reviewed records from 11/19. No records available from visit 11/21. No follow up needed if on antibiotics and improving. Spoke with . She reports is doing good. Reviewed PCP response. She verbalized understanding. /es/ RACHAEL WILD RN REGISTERED NURSE Signed: 11/23/2021 13:17
--- OUTSIDE RECORDS SUMMARY | 2022-06-25 19:36 | XMS_ITS | Encounter Summary ---
:1950 Author Organization [facility] Address [address] [place] [address] Support Name Relationship Address Phone MADELIN MANTILLA Unavailable [address] [phone] [place] [address] MADELIN MANTILLA Unavailable [address] [phone] [place] [address] DHAAVL MANTILLA Unavailable [address] [place] [address] Insurance Providers: All historical and current Section [...] MEDICARE MEDICARE PART Jul 18, PART B [id number] 800 ANNALEE BRYANIENT (WNR) (M) B 2014A [phone] ,REGI MEDICARE MEDICARE PART Apr 17, PART A [id number] 800 ANNALEE Cardenas ATIENT (WNR) (M) A [phone] ,REGI Selected Encounter This section includes the information on record at [place] for the Encounter. Date/Time Encounter Type Encounter Description Reason Provider Source April 10, 2022 12:23 Outpatient Encounter CLINICAL PHARMACY PM IHE Encounter Template Text not used by [place] Plan of Treatment: Future Appointments (+ 6 months) and Future Tests (+/- 45 days) The Plan of Treatment section includes future care activities for the patient from all [place] treatmentfacilities. This section includes future appointments and future orders which are active, pending orscheduled.Future Appointments This section includes appointments that were scheduled to occur 6 months from the date of the Encounter, up to a maximum of 20 appointments. The data comes from all [place] treatment facilities. Appointment Date/Time Appointment Type Appointment Facili ty Name April 12, 2022 08:30 AM AMBULATORY - MEDICINE [facility] May 07, 2022 09:00 AM AMBULATORY - MEDICINE [facility] May 15, 2022 10:30 AM AMBULATORY - MEDICINE [facility] May 15, 2022 10:40 AM AMBULATORY - MEDICINE [facility] May 15, 2022 11:30 AM AMBULATORY - MEDICINE [facility] May 15, 2022 01:00 PM AMBULATORY - MEDICINE [facility] May 15, 2022 01:45 PM AMBULATORY - NONE [facility] Jun 19, 2022 01:15 PM AMBULATORY - NONE [facility] Jun 24, 2022 05:53 PM AMBULATORY - MEDICINE [facility] Jul 12, 2022 09:20 AM AMBULATORY - SURGERY [facility] Jul 19, 2022 08:00 AM AMBULATORY - MEDICINE [facility] Jul 19, 2022 09:00 AM AMBULATORY - MEDICINE [facility] Active, Pending, and Scheduled Orders This section includes a listing of several types of active, pending, and scheduled orders, including clinic medications orders, diagnostic test orders, procedure orders and consult orders; where the start date of the order is 45 days before the date of the Encounter or 45 days after the date of the Encounter. The data comes from all [place] treatment [facility]. Test Date/Time Test Type Test Details Facility Name May 15, 2022 12:00 Laboratory - COVID-19 AND FLU/RSV DIAG [facility] AM Chemistry Order PANEL(CEPHEID) NASOPHARYNGEAL SWAB STAT WC ONCE Vital Signs: All taken on the encounter date This section contains inpatient and outpatient Vital Signs collected on the date of the Encounter. Date/Time Temperature Pulse Blood Respiratory SP02 Pain Height Weight Marcus dy Source Pressure Rate Mass Index April 10, 98.7 F 76 135/84 20 /min 96 % 120.9 22 [place] 2021 10:58 /min mm[Hg] lb [facility] Social History: Smoking Status (Most current) and Tobacco Use (All prior to encounter date) This section includes the most current, and the historical, smoking and tobacco-related health factors from the [place] facility where the Encounter took place.Current Smoking Status This section includes the most current smoking, or tobacco-related health factor, from the [place] facility where the Encounter took place. Date/Time Current Smoking Status Comment Facility Mar 05, 2022 01:30 PM VA-TOBACCO FORMER USER [facility] Tobacco Use History This section includes a history of the smoking, or tobacco- related health factors, that were collected on or before the date of the Encounter. The data comes from the [place] facility where the Encounter took place. Date/Time Smoking Status/Tobacco Use Comment Facil ity Mar 05, 2022 01:30 PM VA-TOBACCO QUIT 1 TO < 5 YRS [facility] Jun 01, 2021 02:00 PM [facility] Dec 31, 2019 10:54 AM VA-TOBACCO FORMER USER [facility] Dec 31, 2019 10:54 AM VA-TOBACCO QUIT < 1 YEAR [facility] March 23, 2019 09:53 AM VA-TOBACCO FORMER USER [facility] March 23, 2019 09:53 AM VA-TOBACCO QUIT < 1 YEAR [facility] Jun 10, 2018 10:00 AM CURRENT TOBACCO [facility]ER [facility] May 10, 2018 07:27 PM [place] [facility] May 10, 2018 07:27 PM INPT TOBACCO US[place] [facility] Aug 29, 2017 09:55 AM FORMER TOBACCO USE <1Y MIN [facility] May 26, 2017 10:51 PM [facility] May 26, 2017 10:51 PM INPT TOBACCO US[place] [facility] May 03, 2017 09:34 PM INPT [place] [facility] May 03, 2017 09:34 PM INPT TOBACCO US[place] [facility] Sep 18, 2016 01:36 PM FORMER TOBACCO USE <1Y MIN [facility] Aug 10, 2016 03:54 PM INPT TOBACCO USE - PT REFUSED [facility] Aug 01, 2016 06:48 PM INPT [place]BAC[place] COUN[place]ING [place] [facility] Aug 01, 2016 06:48 PM INPT TOBACCO US[place] [facility] Feb 08, 2015 09:57 AM CURRENT TOBACCO USER [facility] Nov 29, 2013 10:37 AM CURRENT TOBACCO USER [facility] Nov 26, 2013 11:09 AM PATIENT IS TOBACCO USER [place] [facility] Nov 27, 2012 12:12 PM CURRENT TOBACCO USER [facility] Dec 27, 2011 09:44 AM [facility] Jan 22, 2011 02:38 PM CURRENT TOBACCO USER [facility] Mar 13, 2010 12:48 PM CURRENT TOBACCO USER [facility] Advance Directives: All historical and current Section Date Range: From patient's date of to the date document was created. This section includes ALL of a patient's completed or amended [place] Advance and Rescinded Directives. The entries below indicate that a directive exists for the patient, but an actual copy is not included with this document. The data comes from all [place] facilities. Date Advance Directives Provider Source Feb 25, 2018 ADVANCE DIRECTIVE AURORA MORALES [facility] Feb 24, 2018 ADVANCE DIRECTIVE DISCUSSION AURORA MROALES [facility] May 26, 2017 CLINICAL WARNING MAGO CONTRERAS [facility] May 03, 2017 CLINICAL WARNING SARIAH ENGLE [facility] Aug 10, 2016 CLINICAL WARNING ISABEL BARCENAS [facility] Aug 02, 2016 CLINICAL WARNING AURORA ALMAZAN [facility] Pathology Reports: +/- 30 days of the encounter Pathology Reports For cases when an order for pathology services may have been completed prior to the date of the Encounter, the report list includes the Pathology Reports that were completed up to 30 days before date of the Encounter. For cases when an order for pathology services may have been completed after the date of the Encounter, the report list also includes the Pathology Reports that were completed up to 30days after date of the Encounter. The data comes from all [facility] facilities. Date/Time Pathology Report Provider Source May 08, 2022 06:46 PM LR SURGICAL PATHOLOGY REPORT: SARAH MEDEL [facility] LOCAL TITLE: LR SURGICAL PATHOLOGY REPORT STANDARD TITLE: PATHOLOGY REPORT DATE OF NOTE: MAY 08, 2022@18:46:34 ENTRY DATE: MAY 08, 2022@18:46:34 AUTHOR: SARAH MEDEL EXP COSIGNER: URGENCY: STATUS: COMPLETED $APHDR Reporting Lab: [facility] [CLIA# [id number]] [place] [address] - - - - - - - - - - - - - - - - - - - - - - - - - - - - - - - - - - - - - - - - MEDICAL RECORD SURGICAL PATHOLOGY - - - - - - - - - - - - - - - - - - - - - - - - - - - - - - - - - - - - - - - - PATHOLOGY REPORT Accession No. [id number] - - - - - - - - - - - - - - - - - - - - - - - - - - - - - - - - - - - - - - - - $TEXT Submitted by: MALINI THAO obtained: Venecia aggarwal 2021 - - - - - - - - - - - - - - - - - - - - - - - - - - - - - - - - - - - - - - - - Specimen (Received May 07, 2022 12:12): 1. POLYPECTOMY COLON ASCENDING 2. POLYPECTOMY COLON TRANSVERSE 3. POLYPECTOMY COLON DESCENDING 4. POLYPECTOMY COLON SIGMOID - - - - - - - - - - - - - - - - - - - - - - - - - - - - - - - - - - - - - - - - BRIEF CLINICAL HISTORY: Polyp, R/O adenoma Procedure: colonoscopy - - - - - - - - - - - - - - - - - - - - - - - - - - - - - - - - - - - - - - - - PREOPERATIVE DIAGNOSIS: - - - - - - - - - - - - - - - - - - - - - - - - - - - - - - - - - - - - - - - - OPERATIVE FINDINGS: - - - - - - - - - - - - - - - - - - - - - - - - - - - - - - - - - - - - - - - - POSTOPERATIVE DIAGNOSIS: Surgeon/physician: MALINI THAO MD =-=-=-=-=-=-=-=-=-=-=-=-=-=- =-=-=-=-=-=-=-=-=-=-=-=-=-=-=-=-=-=-=-=-=-=-=-=-=-= - - - - - - - - - - - - - - - - - - - - - - - - - - - - - - - - - - - - - - - - PATHOLOGY REPORT Accession No. [id number] - - - - - - - - - - - - - - - - - - - - - - - - - - - - - - - - - - - - - - - - GROSS DESCRIPTION: The requisition form and specimen(s) identifica tion is confirmed. SPEC. 1 is labeled colon - ascending and consis ts of two yellow-robin tissue fragments the first measuring 1.0 x 0.6 x 0.1 c m, the second measuring 0.6 x 0.3 x 0.3 cm. CE. SPEC. 2 is labeled colon - transverse and consi sts of three pink-yellow tissue fragments the first measuring 0.7 x 0.2 x 0.2 cm, the second measuring 1.0 x 0.7 x 0.7 cm, and the third 0.4 x 0.1 x 0.1 cm. CE. SPEC. 3 is labeled colon - descending and consi sts of three pink-robin tissue fragments the first measuring 1.2 x 0.2 x 0.2 cm, the second measuring 0.6 x 0.4 x 0.1 cm, and the third 0.1 x 0.1 x 0.1 cm. CE. SPEC. 4 is labeled colon - sigmoid and consists of three pink-robin tissue fragments measuring 0.3 cm in aggregate. RADHA Son/cc MICROSCOPIC DESCRIPTION: Microscopic examination performed. DIAGNOSIS: SPEC.1. Colon, ascending, polypectomy -- - fragments of sessile serrated adenoma - no evidence of high grade dysplasia or malign cassi SPEC.2. Colon, transverse, polypectomy -- - fragments of tubular adenoma - no evidence of high grade dysplasia or malign cassi SPEC.3. Colon, descending, polypectomy -- - fragments of sessile serrated adenoma - no evidence of high grade dysplasia or malign cassi SPEC.4. Colon, sigmoid, polypectomy -- - hyperplastic polyp - no evidence of malignancy /es/ SARAH MEDEL MD STAFF PATHOLOGIST, PATHOLOGY & LABORATORY MED Josue Signed May 08, 2022@18:46 Performing Laboratory: Surgical Pathology Report Performed By: [facility] [CLIA# [id number]] [place] [address] $FTR - - - - - - - - - - - - - - - - - - - - - - - - - - - - - - - - - - - - - - - - (End of report) SARAH MEDEL MD dla Date May 08, 2022 - - - - - - - - - - - - - - - - - - - - - - - - - - - - - - - - - - - - - - - - REGI MANTILLA STANDARD FORM 515 ID:[id number] SEX:M :1950 AGE: 72 LOC: 1153 PCP: Preet Anderson MD /mikal/ SARAH MEDEL MD STAFF PATHOLOGIST, PATHOLOGY & LABORATORY MED C Signed: 05/08/2022 18:46 Encounter Notes: All associated encounter notes This section contains the clinical notes associated to the Encounter. Date/Time Encounter Note(s) Provider Source April 10, 2022 12:23 PM [facility]: EDUCATION MEDICATION INSTRUCTION STANDARD TITLE: EDUCATION NOTE DATE OF NOTE: APRIL 10, 2022@12:23 ENTRY DATE: APRIL 10, 2022@12:23:50 AUTHOR: PRINCE DIAS EXP COSIGNER: URGENCY: STATUS: COMPLETED Factor XA Inhibitors Education Template EDUCATIONAL ASSESSMENT BARRIERS/SPECIAL NEEDS: No Barriers Identified READINESS TO LEARN: Ready to learn ASSESSED LEARNING NEEDS/TOPIC: Medication: Apixaban Disease/Condition: A.fib/flutter PARTICIPANTS: Patient TEACHING STRATEGY: 1:1, Written/print materials OBJECTIVES/CONTENT Apixaban At the completion of this educational encounter , the patient will: 1. [MET] Recognize the drug by name (apixaban) 2. [NOT MET] Recognize the drug by appearance 3. [MET] State reason for taking apixaban 4. [MET] Describe how to take apixaban 5. [MET] Describe safety measures 6. [MET] Describe symptoms of bleeding 7. [NOT MET] Describe thromboembolic signs and symptoms 8. [NOT MET] State who is responsible for follo w-up 9. [NOT MET] Identify provider to call for ques tions, concerns and problems 10. [NOT MET] Counseled that at this time, apix aban does not have a reversal agent. Treatment would be to discontinue the drug and provide supportive car e. Patient received a written copy of the informati on discussed. PATIENT/FAMILY RESPONSE (OUTCOME): Verbalizes critical information about thetopic TYPE(S) OF FOLLOW-UP RECOMMENDED: Anticoag Clini c consult pending 04/10/22 /mikal/ PRINCE DIAS [facility] CLINICAL AUTOMATIC PRESSER Signed: 04/10/2022 12:26
--- OUTSIDE RECORDS SUMMARY | 2022-06-25 19:36 | XMS_ITS | Encounter Summary ---
:1950 Author Organization [facility] Address [address] [place] [address] Support Name Relationship Address Phone MADELIN MANTILLA Unavailable [address] [phone] [place] [address] MADELIN MANTILLA Unavailable [phone] [place] [address] DHAVAL MANTILLA Unavailable [address] [place] [address] Insurance Providers: All historical and current Section [...] MEDICARE MEDICARE PART Jul 18, PART B [id number] ANNALEE BUSTILLO (WNR) (M) B 2014 24A [phone] ,REGI MEDICARE MEDICARE PART Apr 17, PART A [id number] ANNALEE BUSTILLO (WNR) (M) A 2012A [phone] ,REGI Selected Encounter This section includes the information on record at MD for the Encounter. Date/Time Encounter Type Encounter Reason Provider Source Description March 19, 2022 06:03 Outpatient ADMIN BAKARI DICKEY PM Encounter (MASNONCT) IHE Encounter Template Text not used by MD Plan of Treatment: Future Appointments (+ 6 [...] Appointment Type Appointment Facili ty Name April 10, 2022 11:00 AM AMBULATORY - MEDICINE [facility] April 10, 2022 11:30 AM AMBULATORY - MEDICINE [facility] April 12, 2022 08:30 AM AMBULATORY - MEDICINE [facility] May 07, 2022 09:00 AM AMBULATORY - MEDICINE [facility] May 15, 2022 10:30 AM AMBULATORY - MEDICINE [facility] May 15, 2022 10:40 AM AMBULATORY - MEDICINE [facility] May 15, 2022 11:30 AM AMBULATORY - MEDICINE [facility] May 15, 2022 01:00 PM AMBULATORY - MEDICINE [facility] May 15, 2022 01:45 PM AMBULATORY - NONE [facility] Jun 19, 2022 01:15 PM AMBULATORY - NONE [facility] Jun 24, 2022 05:53 PM AMBULATORY - MEDICINE [facility] Jul 12, 2022 09:20 AM AMBULATORY - SURGERY [facility] Jul 19, 2022 08:00 AM AMBULATORY - MEDICINE [facility] Jul 19, 2022 09:00 AM AMBULATORY - MEDICINE [facility] Lab Results: +/- 30 days of [...] Range Comment Mar 05, 2022 11:47 AM [facility] HEMOGLOBIN A1C Specim en Type: BLOOD No comment enter ed. Ordering Provid er: MARYELLEN LEON Report Released Date/Time: Jun 01, 2021 04:21 PM Reporting Lab: [facility] [address] [facility] [address] Performing Lab: [facility] [address] [facility] [address] HEMOGLOBIN A1C 5.6 4.0-6.0 Mar 05, 2022 11:47 [facility] LIPID PANEL,NON-FASTING S pecimen Type: PLASMA AM No comment enter ed. Ordering Provid er: MARYELLEN LEON Report Released Date/Time: Jun 01, 2021 04:21 PM Reporting Lab: [facility] [address] [facility] [address] Performing Lab: [facility] [address] [facility] [address] CHOLESTEROL 188 <199 .HDL 83 >40 LDL CALCULATION 78 <99 VLDL CALCULATION 27 <29 NON HDL CHOLESTEROL 105 <129 TRIG(NON FASTING) 133 <149 Mar 05, 2022 11:47 [facility] BASIC METABOLIC Specimen Type: PLASMA AM PANEL+MG No comment enter ed. Ordering Provid er: MARYELLEN LEON Report Released Date/Time: Jun 01, 2021 04:21 PM Reporting Lab: [facility] [address] [facility] [address] Performing Lab: [facility] [address] CREATININE 1.0 0.7-1.2 UREA NITROGEN 21 8-26 GLUCOSE 112 H 74-100 SODIUM 139 136-145 POTASSIUM 4.9 3.5-5.1 CHLORIDE 103 98-107 CO2 25 22-29 CALCIUM 9.6 8.4-10.2 MAGNESIUM 1.6 1.6-2.6 ANION GAP 11 5-15 CREAT EGFR(CKD-EPI) 79 >60 Mar 05, 2022 11:47 AM [facility] AST/SGOT Specim en Type: PLASMA No comment enter ed. Ordering Provid er: MARYELLEN LEON Report Released Date/Time: Mar 05, 2022 01:38 PM Reporting Lab: [facility] [address] [facility] [address] Performing Lab: [facility] [address] AST/SGOT 21 <34 Mar 05, 2022 11:47 AM [facility] ALT/SGPT Specim en Type: PLASMA No comment enter ed. Ordering Provid er: MARYELLEN LEON Report Released Date/Time: Mar 05, 2022 01:38 PM Reporting Lab: [facility] [address] [facility] [address] Performing Lab: [facility] [address] ALT/SGPT 15 <55 Social History: Smoking Status (Most current) and Tobacco Use (All prior to encounter date) This section includes the most current, and the historical, smoking and tobacco-related health factors from the MD facility where the Encounter took place.Current Smoking Status This section includes the most current smoking, or tobacco-related health factor, from the MD facility where the Encounter took place. Date/Time Current Smoking Status Comment Facility Mar 05, 2022 01:30 PM VA-TOBACCO FORMER USER [facility] Tobacco Use History This section includes a history of the smoking, or tobacco- related health factors, that were collected on or before the date of the Encounter. The data comes from the [facility] where the Encounter took place. Date/Time Smoking Status/Tobacco Use Comment Facil it Mar 05, 2022 01:30 PM VA-TOBACCO QUIT 1 TO < 5 YRS [facility] Jun 01, 2021 02:00 PM [facility] Dec 31, 2019 10:54 AM VA-TOBACCO FORMER USER [facility] Dec 31, 2019 10:54 AM VA-TOBACCO QUIT < 1 YEAR [facility] March 23, 2019 09:53 AM VA-TOBACCO FORMER USER [facility] March 23, 2019 09:53 AM VA-TOBACCO QUIT < 1 YEAR M [facility] Jun 10, 2018 10:00 AM CURRENT [place]BACCO US[place] [facility] May 10, 2018 07:27 PM IN[place]AC[place] COUNSELING [place] [facility] May 10, 2018 07:27 PM [place] [facility] Aug 29, 2017 09:55 AM FORMER TOBACCO USE <1Y [facility] May 26, 2017 10:51 PM [place]AC[place] COUNSEL[place] [facility] May 26, 2017 10:51 PM [place] [facility] May 03, 2017 09:34 PM [place] COUN[place] [facility] May 03, 2017 09:34 PM [place] [facility] Sep 18, 2016 01:36 PM FORMER TOBACCO USE <1Y [facility] Aug 10, 2016 03:54 PM INPT TOBACCO USE - PT REFUSED [facility] Aug 01, 2016 06:48 PM INPT [place] COUNSELING [place] [facility] Aug 01, 2016 06:48 PM [place] [facility] Feb 08, 2015 09:57 AM CURRENT [place]ACCO USER [place] [facility] Nov 29, 2013 10:37 AM CURRENT [place]BACCO USER [place] [facility] Nov 26, 2013 11:09 AM PATIENT [place] TOBACCO USER [place] [facility] Nov 27, 2012 12:12 PM CURRENT [place]BACCO USER [place] [facility] Dec 27, 2011 09:44 AM CURRENT TOBACCO USER [place]STEL[place] [facility] Jan 22, 2011 02:38 PM CURRENT TOBACCO USER [facility] Mar 13, 2010 12:48 PM CURRENT TOBACCO USER [facility] Advance Directives: All historical and current Section Date Range: From patient's date of to the date document was created. This section includes ALL of a patient's completed or amended MD Advance and Rescinded Directives. The entries below indicate that a directive exists for the patient, but an actual copy is not included with this document. The data comes from all [facility]. Date Advance Directives Provider Source Feb 25, 2018 ADVANCE DIRECTIVE AURORA MORALES [facility] Feb 24, 2018 ADVANCE DIRECTIVE DISCUSSION AURORA MORALES [facility] May 26, 2017 CLINICAL WARNING MAGO CONTRERAS [facility] May 03, 2017 CLINICAL WARNING SARIAH ENGLE [facility] Aug 10, 2016 CLINICAL WARNING ISABEL BARCENAS [facility] Aug 02, 2016 CLINICAL WARNING AURORA ALMAZAN [facility] Encounter Notes: All associated encounter notes This section contains the clinical notes associated to the Encounter. Date/Time Encounter Note(s) Provider Source March 18, 2022 06:03 PM NONVA [facility] LOCAL TITLE: COMMUNITY CARE-ELZBIETA SELF PRESENTIN G CARE COORD PLAN N STANDARD TITLE: NONVA NOTE DATE OF NOTE: MARCH 18, 2022@18:03 ENTRY DATE: MARCH 19, 2022@18:03:22 AUTHOR: VAZQUEZ DAVIS EXP COSIGNER: URGENCY: STATUS: COMPLETED COMMUNITY CARE-ELZBIETA SELF PRESENTING CARE CO ORD PLAN NOTE Has ADDENDA Emergency Notification Intake Date Presenting to the Facility: March Method of Contact: Notified from mobiDEOS worklist Notification ID: [id number] [facility] Referral #: [facility] Hospital Name: Hospital: 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 /mikal/ BAKARI CHASE RN Utilization Management Signed: 03/20/2022 17:50 Receipt Acknowledged By: 03/21/2022 12:25 /mikal/ RACHAEL WILD, RN REGISTERED NURSE for HERI BRAUN 05/01/2022 ADDENDUM STATUS: COMPLETED DC [place] 03/18 to 03/19/22 dx dehydration dc to home HIMS received and imported ER and DC summary, se e NONVA notes in CPRS or JLV documents /mikal/ BAKARI CHASE RN Utilization Management Signed: 05/01/2022 15:57 Receipt Acknowledged By: 05/01/2022 16:03 /mikal/ MARYELLEN LEON MD Staff Physician * AWAITING SIGNATURE * HERI BRAUN
--- OUTSIDE RECORDS SUMMARY | 2022-06-25 19:36 | XMS_ITS | Encounter Summary ---
:1950 Author Organization [facility] Address [address] [place] [address] Support Name Relationship Address Phone MADELIN MANTILLA Unavailable [address] [phone] [place] [address] MADELIN MANTILLA Unavailable [address] [phone] [place] [address] DHAVAL MANTILLA Unavailable [address] [place] [address] Insurance Providers: All historical and current Section [...] MEDICARE MEDICARE PART Jul 18, PART B [id number] ANNALEE BUSTILLO (WNR) (M) B 2014A [phone] ,[place] MEDICARE MEDICARE PART Apr 17, PART A [id number] ANNALEE BUSTILLO (WNR) (M) A 2012A [id number] ,[place] Selected Encounter This section includes the information on record at [place] for the Encounter. Date/Time Encounter Type Encounter Reason Provider Source Description April 12, 2022 OFFICE O/P EST PRIMARY ICD-10-CM I48.0 PREET LEON 08:30 AM SF 10-19 MIN CARE/MEDICINE Paroxysmal atrial fibrillation with Provider Comments: Paroxysmal atrial fibrillation ([facility] [id number]) IHE Encounter Template Text not used by [place] Assessments - Encounter Diagnoses This section includes the primary and secondary diagnoses documented for the Encounter. Date/Time Primary/Secondary Diagnosis Name Provider Source Diagnosis April 12, 2022 PRIMARY Paroxysmal atrial PREET LEON [facility] 09:21 AM fibrillation HCS April 12, 2022 SECONDARY Alcohol abuse with PREET LEON [place] 09:21 AM unspecified HCS alcohol-induced disorder April 12, 2022 SECONDARY Athscl heart PREET LEON [place] 09:21 AM disease of enterprise HCS coronary artery w/o ang pctrs April 12, 2022 SECONDARY Essential PREET LEON [place] 09:21 AM (primary) HCS hypertension April 12, 2022 SECONDARY Gastro-esophageal PREET LEON [place] 09:21 AM reflux disease HCS without esophagitis Plan of Treatment: Future Appointments (+ 6 months) and Future Tests (+/- 45 days) The Plan of Treatment section includes future care activities for the patient from all [place] [facility]. This section includes future appointments and future orders which are active, pending orscheduled.Future Appointments This section includes appointments that were scheduled to occur 6 months from the date of the Encounter, up to a maximum of 20 appointments. The data comes from all [place] treatment [facility]. Appointment Date/Time Appointment Type Appointment Facili ty Name May 07, 2022 09:00 AM AMBULATORY - MEDICINE [facility] May 15, 2022 10:30 AM AMBULATORY - MEDICINE [facility] May 15, 2022 10:40 AM AMBULATORY - MEDICINE [facility] May 15, 2022 11:30 AM AMBULATORY - MEDICINE [facility] May 15, 2022 01:00 PM AMBULATORY - MEDICINE [facility] May 15, 2022 01:45 PM AMBULATORY - NONE [facility] Jun 19, 2022 01:15 PM AMBULATORY - NONE [facility] Jun 24, 2022 05:53 PM AMBULATORY - MEDICINE [facility] Jul 12, 2022 09:20 AM AMBULATORY - SURGERY [facility] Jul 19, 2022 08:00 AM AMBULATORY - MEDICINE [facility] Jul 19, 2022 09:00 AM AMBULATORY - MEDICINE [facility] Active, Pending, and Scheduled Orders This section includes a listing of several types of active, pending, and scheduled orders, including clinic medications orders, diagnostic test orders, procedure orders and consult orders; where the start date of the order is 45 days before the date of the Encounter or 45 days after the date of the Encounter. The data comes from all [place] treatment facilities. Test Date/Time Test Type Test Details Facility Name May 15, 2022 12:00 Laboratory - COVID-19 AND FLU/RSV DIAG [facility] AM Chemistry Order PANEL(CEPHEID) NASOPHARYNGEAL SWAB STAT WC ONCE Vital Signs: All taken on the encounter date This section contains inpatient and outpatient Vital Signs collected on the date of the Encounter. Date/Time Temperature Pulse Blood Respiratory SP02 Pain Height Weight Marcus dy Source Pressure Rate Mass Index April 12, 98.5 F 100 131/82 18 /min 93 % 0 122.1 22 [place] 2021 08:13 /min mm[Hg] lb [facility] Social History: Smoking Status (Most current) [...] 2022 01:30 PM VA-TOBACCO FORMER USER [facility] Tobacco Use History This section includes a history of the smoking, or tobacco- related health factors, that were collected on or before the date of the Encounter. The data comes from the [place] facility where the Encounter took place. Date/Time Smoking Status/Tobacco Use Comment [facility] it Mar 05, 2022 01:30 PM VA-TOBACCO QUIT 1 TO < 5 YRS [facility] Jun 01, 2021 02:00 PM [facility] Dec 31, 2019 10:54 AM VA-TOBACCO FORMER USER [facility] Dec 31, 2019 10:54 AM VA-TOBACCO QUIT < 1 YEAR [facility] March 23, 2019 09:53 AM VA-TOBACCO FORMER USER [facility] March 23, 2019 09:53 AM VA-TOBACCO QUIT < 1 YEAR [place] [facility] Jun 10, 2018 10:00 AM CURRENT TOBACCO USER [place] [facility] May 10, 2018 07:27 PM INPT TOBACCO COUNSELING [place] [facility] May 10, 2018 07:27 PM INPT TOBACCO USER [place] [facility] Aug 29, 2017 09:55 AM FORMER TOBACCO USE <1Y [facility] May 26, 2017 10:51 PM INPT TOBACCO COUNSELING [place] [facility] May 26, 2017 10:51 PM INPT TOBACCO USER [place] [facility] May 03, 2017 09:34 PM INPT TOBACCO COUNSELING [place] [facility] May 03, 2017 09:34 PM INPT TOBACCO USER [facility] Sep 18, 2016 01:36 PM FORMER TOBACCO USE <1Y [facility] Aug 10, 2016 03:54 PM INPT TOBACCO USE - PT REFUSED [facility] Aug 01, 2016 06:48 PM INPT [facility]AC[facility] Aug 01, 2016 06:48 PM INPT TOBACCO USER [facility] Feb 08, 2015 09:57 AM [facility] Nov 29, 2013 10:37 AM CURRENT TOBACCO USER [facility] Nov 26, 2013 11:09 AM PATIENT IS TOBACCO USER [facility] Nov 27, 2012 12:12 PM CURRENT [facility]BACCO [facility] Dec 27, 2011 09:44 AM CURRENT TOBACCO USER [facility] Jan 22, 2011 02:38 PM CURRENT TOBACCO USER [facility] Mar 13, 2010 12:48 PM CURRENT TOBACCO USER [facility] Advance Directives: All historical and current Section [...] Feb 25, 2018 ADVANCE DIRECTIVE [facility] M[facility]AL[facility] Feb 24, 2018 ADVANCE DIRECTIVE DISCUSSION [facility] May 26, 2017 CLINICAL WARNING MAGO CONTRERAS [facility] May 03, 2017 CLINICAL WARNING SARIAH ENGLE [facility] Aug 10, 2016 CLINICAL WARNING ISABEL BARCENAS [facility] Aug 02, 2016 CLINICAL WARNING [facility] ALMAZAN [facility] Pathology Reports: +/- 30 days of the [...] the Encounter. The data comes from all [place] treatment facilities. Date/Time Pathology Report Provider Source May 08, 2022 06:46 PM LR SURGICAL PATHOLOGY REPORT: SARAH MEDEL [facility] LOCAL TITLE: LR SURGICAL PATHOLOGY REPORT STANDARD TITLE: PATHOLOGY REPORT DATE OF NOTE: MAY 08, 2022@18:46:34 ENTRY DATE: MAY 08, 2022@18:46:34 AUTHOR: SARAH MEDEL EXP COSIGNER: URGENCY: STATUS: COMPLETED $APHDR Reporting Lab: [facility] [CLIA# [id number]] [place] [address] - - - - - - - [...] - - $TEXT Submitted by: MALINI THAO Date obtained: Venecia aggarwal 2021 - - - [...] - - - POSTOPERATIVE DIAGNOSIS: Surgeon/physician: MALINI TAHO MD =-=-=-=-=-=-=-=-=-=-=-=-=-=- =-=-=-=-=-=-=-=-=-=-=-=-=-=-=-=-=-=-=-=-=-=-=-=-=-= - - - - [...] tissue fragments measuring 0.3 cm in aggregate. LATHA Son/cc MICROSCOPIC DESCRIPTION: Microscopic examination performed. DIAGNOSIS: [...] hyperplastic polyp - no evidence of malignancy /mikal/ SARAH MEDEL MD STAFF PATHOLOGIST, PATHOLOGY & LABORATORY MED SV C Signed May 08, 2022@18:46 Performing Laboratory: Surgical Pathology Report Performed By: [facility] [CLIA# [id number]] [place] [address] $FTR - - - - - - [...] - - REGI MANTILLA STANDARD FORM 515 ID:[id number] SEX:M :1950 AGE: 72 LOC: 1153 PCP: Preet Leon MD /mikal/ SARAH MEDEL MD STAFF PATHOLOGIST, PATHOLOGY & LABORATORY MED SV C Signed: 05/08/2022 18:46 Encounter Notes: All associated encounter notes This section contains the clinical notes associated to the Encounter. Date/Time Encounter Note(s) Provider Source April 12, 2022 08:51 INTERNAL MEDICINE NOTE: PREET LEON [facility] AM LOCAL TITLE: MEDICINE CLINIC NOTE STANDARD TITLE: INTERNAL MEDICINE NOTE DATE OF NOTE: APRIL 12, 2022@08:51 ENTRY DATE: APRIL 12, 2022@08:51:22 AUTHOR: PREET LEON EXP COSIGNER: URGENCY: STATUS: COMPLETED Nurses notes reviewed and agree. This note is an edited version based on my previ ous clinic visit notes and/or based on review of CPRS recor ds. Chief complaint: hosp d/c f/u. Last seen in 4/20 22 HPI: The patient is a 71 yea r old MALE CAD s/p stenting, chronic R knee pain s/p TKA, hyperlipidemia, ETOH abuse, seropositive rh eumatoid arthritis and rcent diagnosis of pAfib presenting here for f/u - admitted 03/18/22 at [facility] for [facility], diarrhea felt to be 2/2 gastroenteritis, alcohol rel ated or other abd infection. Doing better with fluid resuscitation. Initially had sepsis like picture with elevated lactate, elevated WBC, hypotension,tachycardia and LYNNE 2/2 dehydration, V and diarrhea. Covid-19 neg. UA neg. POSITIVE Rotavirus. Dxed acute noemi roenteritis Outside provider called patient on 03/27. PCR neg for Cdiff. - doing stable since dischargem, symptoms resolv ed - f/u Rheumatology on sulfasalazine, Adalimumab injection and prednisone 10mg for diffuse joint pain felt to be seropositive r heumatoid arthritis. - H/o POS alcohol screen, kelley s cut down now drinking etoh 2 beers per day with a couple shots of whisky. Pt not interested in referral. - still smoking marijuana I use marijuana more than anything else. No tobacco use Review of Systems: No sore throat. No dysuria/hematuria. No abdominal pain/N/V/D. FH: - cancer: none, no colon cancer. 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 Currently not working. On social security per pt. - Tobacco: Quit in 04/2018 after his NSTEMI - ETOH: 6 beers per day - Drugs: smoking marijuana my whole life. Past medical history: 1. Hypertension 2. Knee: arthralgia. Chronic R knee - [facility] - xray left knee 02/24 nl - s/p RIGHT TKA 11/23/13 3. Abdominal Pain, Epigastric 4. Insomnia, unspecified 5. Hearing loss 6. GERD/Gastritis - EGD OSH 02/19/2022 showed ga stritis. PATHOLOGY Non-erosive reactive gastropathy Negative for inflammation, atrophy and Helicobac ter. 7. Allergy/Rhinitis on loratadin and mometasone 8. Hemorrhoids 9. Hyperlipidemia 10. Alcohol Abuse 11. Marijuana Abuse * 12. R shoulder pain/Right shoulder joint pain 13. Epistaxis 14. Anemia, macrocytic. Iron study, Vitamin B12 and folate all normal 15. CAD - S/p ARLYN x2 to LCx and OM-1 on 08/02/16 - s/p NSTEMI post stenting , readmitted, felt to be subtotal occlusion of superior branch of the OM1 similar to [facility] on 08/02/16--medically managed - s/p NSTEMI, hospitalized 04/2018 - s/p NSTEMI, hospitalized 02/2022 (had cath but no intevertention) - ECHO 02/18/2022 OSH Technically limited exam. No rmal LV size, borderline wall thickness, EF of 60 - 65%. Normal RV size and sy stolic function. Mild LA enlargement. Normal diastolic filling pattern. N o significant valve disease. IVC not well-visualized: probably normal caliber with respiratory variation. Compared to prior exam repor t of 12/11/17, there has been no significant change. - PET CT MYOCARDIAL PERFUSIO N IMAGING REPORT REST/STRESS GATED PET IMAGING USING CT ATTENUATION CORRECTION 02/18/22 Myocardial perfusion was abnormal. There was a medium-sized area of mild to moderate ischemia i n the basal, mid and apical inferior and inferolateral best. Adequate pharm acologic stress test with regadenoson. The pharmacologic stress ECG was ne gative for ischemia. Left ventricular cavity size was normal (resting EDV 69 ml). There was normal myocardial thickening and wall motion with a sergio culated resting LVEF of 65%. There were no prior studies available for compar ronnie. - s/p coronary angiogram on February 20, 2022 The LA D is widely patent and has a focal 50% stenosis in mid-LAD. The CX is large a nd dominant and has patent stents in mid-CX and OM1. The RCA is small, non- dominant and has moderate disease. Left radial approac h used. Left ventricular ejection fraction based on radionucleotide is 65%. 16. CKD - renal U/S 03/18/2022 at OSH: mildly atrophic rig ht kidney, no hydronephrosis 17. SOB - PFT 09/2018 FVC L 3.08 3.71 120.4 FEV1 L 2.24 2.51 112.1 PF L/SEC 5.831 5.990 102.7 2.86 [id number] L/SEC 2.660 1.580 59.4 0.99 FEV1/FVC % 68 INTERPRETATION: Normal Spirometry. 18. Rib fracture - s/p fall 11/2018, RIGHT rib 19. 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 Ankle pain, LEFT 21. Seropositive rheumatoid arthritis - seen Rheum, high titer ser opositive rheumatoid arthritis with a CCP above the limit of detection of the te st (> 250), CRP of 36, ESR of 39 and RF elevated at 69 in 01/2020 22. Multifocal atrial tachycardia/Paroxysmal atr ial fibrillation/Long-term current use of anticoagulant - hospitalized in 02/2022. Seen card. Initially t hought multifocal atrial tachycardia, then had Ziopatch 03/2022, followed by [place] [facility] card, confirmed paroxsymal AFIB - had stress test and cath in 02/2022 as above 23. Compression fracture - chest CT 06/13/21 with severe compression fract ure of L1. No retropulsed fragments however there may be extension to the posterior cortex, age indeterminate but fracture c ould be acute. Diffuse sclerosis of the L1 vertebral body. This could be related to acute on chronic fracture potentially. Allergies: LISINOPRIL (Jun 01, 2021) Active and Recently Outpatient Medicatio ns (including Supplies): Active Outpatient Medications Status 1) ACETAMINOPHEN 500MG TAB TAKE TWO TABLETS BY M OUTH ACTIVE FOUR TIMES A DAY NEEDED *NOT TO EXCEED 4000M G IN 24 HOURS* FOR PAIN 2) ADALIMUMAB 40MG/0.8ML INJ PEN KIT INJECT 40 M G UNDER ACTIVE THE SKIN EVERY 2 WEEKS 3) AMIODARONE HCL (PACERONE) 200MG TAB TAKE ONE TABLET ACTIVE BY MOUTH TWICE A DAY FOR 30 DAYS, THEN TAKE ONE TABLET EVERY DAY FOR HEART RHYTHM - TAKE WITH F OOD 4) APIXABAN 5MG TAB TAKE ONE TABLET BY MOUTH GISSELLE RY 12 ACTIVE HOURS TO PREVENT BLOOD CLOTS & STROKE. 5) ATORVASTATIN CALCIUM 80MG TAB TAKE ONE TABLET BY ACTIVE MOUTH AT BEDTIME FOR CHOLESTEROL REPLACES SIMVASTATIN 6) CARBOXYMETHYLCELLULOSE NA 0.25% OPH SOLN INST ILL 1 ACTIVE DROP IN BOTH EYES FOUR TIMES A DAY 7) CHOLECALCIF 25MCG (D3-1,000UNIT) TAB TAKE ONE TABLET ACTIVE BY MOUTH EVERY DAY 8) CYANOCOBALAMIN 1000MCG TAB TAKE ONE TABLET BY MOUTH ACTIVE (S) EVERY DAY 9) FLUTICASONE PROP 50MCG 120D NASAL INHL SPRAY 1 SPRAY ACTIVE IN EACH NOSTRIL TWICE A DAY NEEDED FOR RUNNY NOSE USE REGULARLY FOR RELIEF OF ALLERGIES/CONGESTION 10) FOLIC ACID 1MG TAB TAKE ONE TABLET BY MOUTH EVERY DAY ACTIVE 11) ISOSORBIDE MONONITRATE 60MG SA TAB TAKE ONE- HALF ACTIVE TABLET BY MOUTH EVERY DAY 12) LORATADINE 10MG TAB TAKE ONE TABLET BY MOUTH EVERY ACTIVE DAY FOR ALLERGY SYMPTOMS 13) METOPROLOL TARTRATE 50MG TAB TAKE ONE TABLET BY MOUTH ACTIVE TWICE A DAY 14) PANTOPRAZOLE NA 40MG EC TAB TAKE ONE TABLET BY MOUTH ACTIVE EVERY MORNING ONE-HALF HOUR BEFORE EATING TO DECREASE STOMACH ACID TAKE ON AN EMPTY STOMAC H, AT LEAST 30 MINUTES PRIOR TO MEAL 15) PREDNISONE 10MG TAB TAKE ONE TABLET BY MOUTH EVERY ACTIVE DAY 16) SULFASALAZINE 500MG TAB TAKE TWO TABLETS BY MOUTH ACTIVE TWICE A DAY Inactive Outpatient Medications Status 1) ACETAMINOPHEN 500MG TAB TAKE TWO TABLETS BY M OUTH DISCONTINUED FOUR TIMES A DAY NEEDED *NOT TO EXCEED 4000M G IN 24 HOURS* FOR PAIN 2) ADALIMUMAB 40MG/0.8ML INJ PEN KIT INJECT 40 M G UNDER DISCONTINUED THE SKIN EVERY 2 WEEKS 3) ASPIRIN 81MG EC TAB TAKE ONE TABLET BY MOUTH EVERY DISCONTINUED DAY 4) ATORVASTATIN CALCIUM 80MG TAB TAKE ONE-HALF T ABLET BY DISCONTINUED MOUTH AT BEDTIME FOR CHOLESTEROL REPLACES (EDIT ) SIMVASTATIN 5) COLON ELECTROLYTE LAVAGE PWD FOR SOLN TAKE 1 CONTAINER (4 LITERS) BY MOUTH DIRECTED FOR C OLON PREP *MIX ACCORDING TO PACKAGE INSTRUCTIONS. *D RINK ONE-HALF CONTAINER STARTING AT 4PM THE DAY BEFO RE EXAM. DRINK REMAINING ONE-HALF CONTAINER 6 HOUR S BEFORE EXAM. 6) CYANOCOBALAMIN 1000MCG TAB TAKE ONE TABLET BY MOUTH DISCONTINUED EVERY DAY 7) FOLIC ACID 1MG TAB TAKE ONE TABLET BY MOUTH E VERY DAY DISCONTINUED 8) ISOSORBIDE MONONITRATE 60MG SA TAB TAKE ONE-H CUSTODIAL DISCONTINUED TABLET BY MOUTH EVERY DAY 9) ISOSORBIDE MONONITRATE 60MG SA TAB TAKE ONE T ABLET BY DISCONTINUED MOUTH EVERY DAY FOR CHEST PAIN 10) MAGNESIUM CITRATE LIQUID TAKE 1 BOTTLE BY [facility] ONCE AT 12PM (NOON) ONE DAY BEFORE PROCEDURE FOR COL ON PREP 11) METOPROLOL TARTRATE 50MG TAB TAKE ONE TABLET BY MOUTH DISCONTINUED TWICE A DAY 12) METOPROLOL TARTRATE 50MG TAB TAKE ONE-HALF T ABLET BY DISCONTINUED MOUTH TWICE A DAY FOR HEART 13) PANTOPRAZOLE NA 40MG EC TAB TAKE ONE TABLET BY MOUTH DISCONTINUED EVERY MORNING ONE-HALF HOUR BEFORE EATING TO DECREASE STOMACH ACID TAKE ON AN EMPTY STOMAC H, AT LEAST 30 MINUTES PRIOR TO MEAL 14) PREDNISONE 10MG TAB TAKE ONE TABLET BY MOUTH EVERY DISCONTINUED DAY 15) SULFASALAZINE 500MG TAB TAKE TWO TABLETS BY MOUTH DISCONTINUED TWICE A DAY 31 Total Medications OTC, Herbals, and Private MD medications or akash tional medication information: Physical Exams: pt wears face mask provider wears surgical mask and faceshield. Anne Marie ves are used when examining patient Vitals: BP: 131/82 (04/12/2022 08:13) P: 100 (04/12/2022 08:13) R: 18 (04/12/2022 08:13) T: 98.5 F [36.9 C] (04/12/2022 08:13) WT: 122.1 lb [55.38 kg] (04/12/2022 08:13) Pain: 0 (04/12/2022 08:13) O2 Sat: Gen: AAO, nad, pt appears at his stated age, int eractive and cooperative HEENT: PER, EOMI, no conjunctivitis or scleral i cterus Neck: no JVD Lungs: cta b, no wheezes or crackles Heart: irrr, nl s1s2, no m/r/g Abd: s, nt, nd. Normoactive bs. Ext: no c/e/e. Neuro: QUEEN, grossly intact. Lab Data: (x)Patient was informed of available lab, imagin g, and other study results associated with today's visit. SMA-7: SODIUM 139 (03/05/22) POTASSIUM 4.9 (03/05/22) CHLORIDE 103 (03/05/22) CO2 25 (03/05/22) UREA NITROGEN 21 (03/05/22) CREATININE 1.0 (03/05/22) GLUCOSE 112 H (03/05/22) CBC: WBC 10.65 (01/11/22) HGB 13.1 L (01/11/22) HCT 38.7 L (01/11/22) PLT 235 (01/11/22) HA1C: Collection DT Specimen Test Name Result Units Re f Range 03/05/2022 11:47 BLOOD HEMOGLOBIN A1C 5.6 % 4.0 - 6.0 No data available Lipids: CHOLESTEROL 188 (03/05/22) HDL 83 (03/05/22) LDL CALCULATION 78 (03/05/22) LDL Measured: TRIGLYCERIDE____ LFTs: SGOT 21 (03/05/22) SGPT 15 (03/05/22) PSA - NONE FOUND TSH 1.31 (06/01/21) URIC ACID____ Urine Microalbumin: ALB/CREAT RATIO____ Other Lab Data: 03/2022 at OSH WBC 12.9, Hb 16.1, Plt 227, lactate 5.2 Na 134, k 3.7, cr 3.5,BUN 47 - AST 66, ALT 61 - CRP nl 0.9 - BAL neg Assessment/Plan: 1. CAD s/p stenting 08/02/16: on ACEI, statin, metoprolol 50mg bid, ISMN SA 30mg. ASA 81mg stopped by cardiology in 03/2022 after s tarting Apixaban. - contninue current med 2. Hyperlipidemia: goal LDL <70. Chol ok 03/05/22 - continue Atorvastatin 80mg 3. pAFIB: CHADS-VASC = 3 (>65, HTN, CAD/MS) - continue metoprolol 50mg bid, Apixaban 5mg bid - also on Amiodarone by EP card for rhythm contr ol - AC pending by card for - f/u EP card in 4-6 weeks per note, consider ab lation if AAD does not work 4. GERD/Gastritis: - continue pantoprazole 40mg qday indefinitely 5. CKD: cr baseline. Improved after stopping lis inopril - will follow 6. ACD/macrocytosis: Hb stab le, slight leukocytosis 2/2 prednisone. Elevated MCV 2/2 ETOH abuse. B12 and Folate ok--low nl range 07/2020 - continue Folic and Vit B12 daily - advised ETOH cessation 7. Diffuse joint pain 2/2 seropositive rheumatoi d arthritis - f/u Rheum, on Sulfasalazine, Adalimumab q2wk i njection and prednisone 8. Chronic rhinitis: - continue loratadine, and fluticasone nasal spr ay 9. Elevated LFTs/pattern suggestive of 2/2 ETOH use: has cut back since discharge but still above recommended limits. - advised ETOH cessation or at least reduce to r ecomemnded limits 10. Vit D insuff/L1 compression fracture: vit D 19 in 01/2020 - continue Vit D 1,000unit daily 11. HCM: - colonoscopy 04/2012 Internal hemorrhoids. These are the likely cause of the hemoccult + stools. Otherwise emma l colonoscopy. Repeat colonoscopy in 10 years for screening pur poses. Recent OSH hospitalization 02/2022 for chest pain and vomiting. Stool guaic POS. With concern for GI bleeding patient underwent e ndoscopy on 02/19/2022 which showed gastritis. Recommend PPI twice daily for 2 months and then daily indefinitely. Avoid NSAIDs and alcohol. Recommen d outpatient colonoscopy.--> pending colonoscopy in 04/2022 - vaccines: Td 03/13/10, flu 07/28/2020, pneumo-va c 01/11/14, PCV13 11/03/15, H1N1 refuses, shingles vacci ne 11/27/12, completed shingrix 2 dose series 03/23/19, COVID-19 ([facility]), MRNA, LNP-S, P* 3rd 1 - PSA ok 01/11/14 - TSH ok 05/2021 - AAA screening: U/S NEG 01/2014 - Hepatitis: Hep B immune 07/2020 - lung cancer screening: neg OSH chest CT 05/2021 Tobacco: () Pt smokes or uses tobacco products and was c ounseled to d/c. Medications including bupropion, nicotine repla cement therapy have been discussed, and will be ordered at patient reque st. - nicotine patch, zyban given in the past () Pt is not using tobacco products now but has used them in the past year. (Pt counseled to remain abstinent.) (x) Pt hasn't used tobacco products for a year or more. () Pt has never used tobacco products. TTC 6 months with no lab. Has frequent lab thru rheum. MEDICATION RECONCILIATION Outpatient At this visit I have reviewed the medication li st, and discussed relevant medications with the patient/surrogate . An updated patient medication list was given to the participant(s). (x ) No Change ( ) Change/New: I have noted this on the yanci tejeda's copy of the medication list. Education on NEW Medication: I have reviewed the medication list for possible drug:drug interactions or contraindicat ions prior to ordering NEW medications during this visit. (x)Patient instructed. I noted new medication o n patient's copy of the medication list. Patient sent to Pharmacist for education on new medication. ( )Patient ( )Family Member ( )Caregiver indica david readiness to learn and has been instructed on action, dose, frequency and side effects of the new medication and I noted new medication on latha arechiga's copy of the medication list. ( ) Verbalizes understanding of instructions. ( ) Needs additional reinforcement of instructi ons(sent to Pharmacist). ( )Patient unable to participate in learning/in struction. More than 50% of this 15 min visit spent in coun selling and coordinating care regarding reviewing labs, me dications, discussing medical issues mentioned above and answering patient's questions. (x) Patient/Caregiver indicates readiness to dirk rn, verbalizes understanding, agreement and satisfaction with the treatment pl an. (x) /Caregiver indicates readiness to dirk rn and has been instructed on action, dose, frequency, and side effects of the medication. /Caregiver verbalizes understanding. /es/ PREET LEON MD Staff Physician Signed: 04/12/2022 09:21 April 12, 2022 08:15 INTERNAL MEDICINE OUTPATIENT NOTE: Chelita PÉREZ [facility] LOCAL TITLE: MEDICINE CLINIC NURSING NOTE STANDARD TITLE: INTERNAL MEDICINE OUTPATIENT NOT E DATE OF NOTE: APRIL 12, 2022@08:15 ENTRY DATE: APRIL 12, 2022@08:15:44 AUTHOR: ELY PÉREZ EXP COSIGNER: URGENCY: STATUS: COMPLETED TYPE OF VISIT: Appointment Check In Type of appointment: In-person appointment REASON FOR VISIT: follow up visit ALLERGIES: LISINOPRIL (Jun 01, 2021) VITAL SIGNS: Blood Pressure: 131/82 (04/12/2022 08:13) Pulse: 100 (04/12/2022 08:13) Respiration: 18 (04/12/2022 08:13) Temperature: 98.5 F [36.9 C] (04/12/2022 08:13) Weight: 122.1 lb [55.38 kg] (04/12/2022 08:13) Height: 62 in [157.5 cm] (03/05/2022 12:54) BMI: 22.4 O2 Sat: 93% (04/12/2022 08:13) Pain: 0 (04/12/2022 08:13) PAIN SCREEN: Patient is not having significant pain that the y wish to discuss with their provider today. MEDICATION Active Outpatient Medications (including Suppli es): ACETAMINOPHEN 500MG TAB TAKE TWO TABLETS BY KIRSTIN TH FOUR ACTIVE TIMES A DAY NEEDED *NOT TO EXCEED 4000MG IN 24 HOURS* FOR PAIN ADALIMUMAB 40MG/0.8ML INJ PEN KIT INJECT 40 MG UNDER THE ACTIVE SKIN EVERY 2 WEEKS AMIODARONE HCL (PACERONE) 200MG TAB TAKE ONE TA BLET BY ACTIVE MOUTH TWICE A DAY FOR 30 DAYS, THEN TAKE ONE TA BLET EVERY DAY FOR HEART RHYTHM - TAKE WITH FOOD APIXABAN 5MG TAB TAKE ONE TABLET BY MOUTH EVERY 12 HOURS ACTIVE TO PREVENT BLOOD CLOTS & STROKE. ATORVASTATIN CALCIUM 80MG TAB TAKE ONE TABLET B Y MOUTH AT ACTIVE BEDTIME FOR CHOLESTEROL REPLACES SIMVASTATIN CARBOXYMETHYLCELLULOSE NA 0.25% OPH SOLN INSTIL L 1 DROP IN ACTIVE BOTH EYES FOUR TIMES A DAY CHOLECALCIF 25MCG (D3-1,000UNIT) TAB TAKE ONE T ABLET BY ACTIVE MOUTH EVERY DAY CYANOCOBALAMIN 1000MCG TAB TAKE ONE TABLET BY M OUTH EVERY ACTIVE (S) DAY FLUTICASONE PROP 50MCG 120D NASAL INHL SPRAY 1 SPRAY IN ACTIVE EACH NOSTRIL TWICE A DAY NEEDED FOR RUNNY NO SE USE REGULARLY FOR RELIEF OF ALLERGIES/CONGESTION FOLIC ACID 1MG TAB TAKE ONE TABLET BY MOUTH GISSELLE RY DAY ACTIVE ISOSORBIDE MONONITRATE 60MG SA TAB TAKE ONE-ROCHELLE F TABLET BY ACTIVE MOUTH EVERY DAY LORATADINE 10MG TAB TAKE ONE TABLET BY MOUTH EV NOHEMI DAY FOR ACTIVE ALLERGY SYMPTOMS METOPROLOL TARTRATE 50MG TAB TAKE ONE TABLET BY MOUTH ACTIVE TWICE A DAY PANTOPRAZOLE NA 40MG EC TAB TAKE ONE TABLET BY MOUTH EVERY ACTIVE MORNING ONE-HALF HOUR BEFORE EATING TO DECREASE STOMACH ACID TAKE ON AN EMPTY STOMACH, AT LEAST 30 MS NUTES PRIOR TO MEAL PREDNISONE 10MG TAB TAKE ONE TABLET BY MOUTH EV NOHEMI DAY ACTIVE SULFASALAZINE 500MG TAB TAKE TWO TABLETS BY KIRSTIN TH TWICE A ACTIVE DAY Over the Counter/Herbal Medications: The patient denies taking any outside medicatio ns or herbals. /mikal/ ELY PÉREZ LPN LICENSED PRACTICAL NURSE Signed: 04/12/2022 08:16 April 12, 2022 08:04 ADVANCE DIRECTIVE: LUIGI RIVERA [facility] TITLE: AD NOTIFICATION AND SCREENING STANDARD TITLE: ADVANCE DIRECTIVE DATE OF NOTE: APRIL 12, 2022@08:04 ENTRY DATE: APRIL 12, 2022@08:04:37 AUTHOR: LUIGI RIVERA EXP COSIGNER: URGENCY: STATUS: COMPLETED ADVANCE DIRECTIVE NOTIFICATION: Patient was given written notification of the [facility] rights: 1. Accept or refuse any medical treatment. 2. Complete a durable power of business attorney for [facility]. 3. Complete a living will. ADVANCE DIRECTIVE SCREENING: Does patient have an Advance Directive? The patient has an Advance Directive. Does the patient wish to make any changes or re voke their current Advance Directive? No changes requested at this time. /mikal/ LUIGI RIVERA [facility]AREHOUSE ORDER PULLER Signed: 04/12/2022 08:05
--- OUTSIDE RECORDS SUMMARY | 2022-06-25 19:36 | XMS_ITS | Encounter Summary ---
:1950 Author Organization [facility] Address [address] [place] [address] Support Name Relationship Address Phone MADELIN MANTILLA Unavailable [phone] [place] [address] MADELIN MANTILLA Unavailable [phone] [place] [address] DHAVAL MANTILLA Unavailable [address] [place] [address] Insurance Providers: All historical and current Section [...] MEDICARE MEDICARE PART Jul 18, PART B [id number] ANNALEE BRYANIENT (WNR) (M) B [id number] [phone] ,REGI MEDICARE MEDICARE PART Apr 17, PART A [id number] 800 ANNALEE Cardenas ATIENT (WNR) (M) A [id number] [phone] ,REGI Selected Encounter This section includes the information on record at [place] for the Encounter. 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 Date/Time Primary/Secondary Diagnosis Name Provider Source Diagnosis Apr 23, 2022 PRIMARY group home (current) TATY PHAM [facility] 02:25 PM use of IN Y H[facility] anticoagulants Apr 23, 2022 SECONDARY Unspecified atrial ATTY PHAM [place] 02:25 PM fibrillation IN Y [facility] Plan of Treatment: Future Appointments (+ 6 months) and Future Tests (+/- 45 days) The Plan of Treatment section includes future care activities for the patient from all [place] treatmentfacilities. This section includes future appointments and future orders which are active, pending orscheduled.Future Appointments This section includes appointments that were scheduled to occur 6 months from the date of the Encounter, up to a maximum of 20 appointments. The data comes from all [place] treatment [facility]. Appointment Date/Time Appointment Type Appointment Facili ty Name May 07, 2022 09:00 AM AMBULATORY - MEDICINE [facility] May 15, 2022 10:30 AM AMBULATORY - MEDICINE [facility] May 15, 2022 10:40 AM AMBULATORY - MEDICINE [facility] May 15, 2022 11:30 AM AMBULATORY - MEDICINE [facility] May 15, 2022 01:00 PM AMBULATORY - MEDICINE [facility] May 15, 2022 01:45 PM AMBULATORY - NONE [facility] Jun 19, 2022 01:15 PM AMBULATORY - NONE [facility] Jun 24, 2022 05:53 PM AMBULATORY - MEDICINE [facility] Jul 12, 2022 09:20 AM AMBULATORY - SURGERY [facility] Jul 19, 2022 08:00 AM AMBULATORY - MEDICINE [facility] Jul 19, 2022 09:00 AM AMBULATORY - MEDICINE [facility] Active, Pending, and Scheduled Orders This section includes a listing of several types of active, pending, and scheduled orders, including clinic medications orders, diagnostic test orders, procedure orders and consult orders; where the start date of the order is 45 days before the date of the Encounter or 45 days after the date of the Encounter. The data comes from all [facility]. Test Date/Time Test Type Test Details Facility Name May 15, 2022 12:00 Laboratory - COVID-19 AND FLU/RSV DIAG [facility] AM Chemistry Order PANEL(CEPHEID) NASOPHARYNGEAL SWAB STAT WC ONCE Lab Results: +/- 30 days of the encounter This section includes the Chemistry and Hematology Lab Results on record with [place] for the patient. Radiology Reports and Pathology Reports are provided separately, in subsequent sections.Lab Results This section contains the Chemistry/Hematology Results that were resulted 30 days before or 30 daysafter the date of the Encounter. Date/Time Source Result Type Result - Unit Interpretation Reference Range Comment May 15, 2022 10:57 [facility] TSH W/REFLEX TO FREE Spec imen Type: PLASMA AM T4 No comment enter ed. Ordering Provid er: ROSY FAITH Report Released Date/Time: April 11, 2022 12:04 PM Reporting Lab: [facility] [address] [facility] [id number] Performing Lab: [facility] [address] TSH 3.03 0.35-4.94 May 15, 2022 [facility] COMPREHENSIVE METABOLIC Spec imen Type: PLASMA 10:57 AM PANEL+MG No comment enter ed. Ordering Provid er: ROSY FAITH Report Released Date/Time: April 11, 2022 12:04 PM Reporting Lab: [facility] [id number] Performing Lab: [facility] [address] CREATININE 1.2 0.7-1.2 UREA NITROGEN 25 8-26 GLUCOSE 105 H 74-100 SODIUM 139 136-145 POTASSIUM 4.7 3.5-5.1 CHLORIDE 104 98-107 CO2 26 22-29 CALCIUM 9.5 8.4-10.2 PROTEIN,TOTAL 7.2 6.0-8.3 ALBUMIN 4.2 3.5-5.2 BILIRUBIN, TOTAL 0.5 0.2-1.2 MAGNESIUM 1.8 1.6-2.6 ANION GAP 9 5-15 ALKALINE PHOSPHATASE 55 40-150 ALT/SGPT 19 <55 AST/SGOT 28 <34 CREAT EGFR(CKD-EPI) 63 >60 Social History: Smoking Status (Most current) and Tobacco Use (All prior to encounter date) This section includes the most current, and the historical, smoking and tobacco-related health factors from the [place] facility where the Encounter took place.Current Smoking Status This section includes the most current smoking, or tobacco-related health factor, from the [place] facility where the Encounter took place. Date/Time Current Smoking Status Comment Facility Mar 05, 2022 01:30 PM [place]-TOBACCO FORMER USER [facility] Tobacco Use History This section includes a history of the smoking, or tobacco- related health factors, that were collected on or before the date of the Encounter. The data comes from the [place] facility where the Encounter took place. Date/Time Smoking Status/Tobacco Use Comment Facil ity Mar 05, 2022 01:30 PM VA-TOBACCO QUIT 1 TO < 5 YRS [facility] Jun 01, 2021 02:00 PM VA-TOBACCO NEVER USED [place] [facility] Dec 31, 2019 10:54 AM VA-TOBACCO FORMER USER [facility] Dec 31, 2019 10:54 AM VA-TOBACCO QUIT < 1 YEAR [place] [facility] March 23, 2019 09:53 AM VA-TOBACCO FORMER USER [facility] March 23, 2019 09:53 AM VA-TOBACCO QUIT < 1 YEAR [place] [facility] Jun 10, 2018 10:00 AM CURRENT TOBACCO USER [place] [facility] May 10, 2018 07:27 PM INPT TOBACCO COUNSELING [place] [facility] May 10, 2018 07:27 PM INPT TOBACCO USER [place] [facility] Aug 29, 2017 09:55 AM FORMER TOBACCO USE <1Y [facility] May 26, 2017 10:51 PM INPT TOBACCO COUNSELING [place] [facility] May 26, 2017 10:51 PM INPT TOBACCO USER [place] [facility] May 03, 2017 09:34 PM INPT TOBACCO COUNSELING [place] [facility] May 03, 2017 09:34 PM INPT TOBACCO USER [place] [facility] Sep 18, 2016 01:36 PM FORMER TOBACCO USE <1Y [facility] Aug 10, 2016 03:54 PM INPT TOBACCO USE - PT REFUSED [facility] Aug 01, 2016 06:48 PM INPT TOBACCO COUNSELING [place] [facility] Aug 01, 2016 06:48 PM INPT TOBACCO USER [place] [facility] Feb 08, 2015 09:57 AM CURRENT TOBACCO USER [place] [facility] Nov 29, 2013 10:37 AM CURRENT TOBACCO USER [place] [facility] Nov 26, 2013 11:09 AM PATIENT IS TOBACCO USER [place] [facility] Nov 27, 2012 12:12 PM CURRENT TOBACCO USER [place] [facility] Dec 27, 2011 09:44 AM CURRENT TOBACCO USER [place] [facility] Jan 22, 2011 02:38 PM CURRENT TOBACCO USER [place] [facility] Mar 13, 2010 12:48 PM CURRENT TOBACCO USER [place] [facility] Advance Directives: All historical and current Section Date Range: From patient's date of to the date document was created. This section includes ALL of a patient's completed or amended [place] Advance and Rescinded Directives. The entries below indicate that a directive exists for the patient, but an actual copy is not included with this document. The data comes from all [facility]. Date Advance Directives Provider Source Feb 25, 2018 ADVANCE DIRECTIVE AURORA MORALES [facility] Feb 24, 2018 ADVANCE DIRECTIVE DISCUSSION A[facility] MORALES [facility] May 26, 2017 CLINICAL WARNING DIANEMAGO Wood [facility] May 03, 2017 CLINICAL WARNING SARIAH ENGLE [facility] Aug 10, 2016 CLINICAL WARNING ISABEL BARCENAS [facility] Aug 02, 2016 CLINICAL WARNING A[facility]ORA ALMAZAN [facility] Radiology Reports: +/- 30 days of the encounter Radiology Reports For cases when an order for radiology services may have been completed prior to the date of the Encounter, the report list includes the Radiology Reports that were completed up to 30 days before date of the Encounter. For cases when an order for radiology services may have been completed after the date of the Encounter, the report list also includes the Radiology Reports that were completed up to 30days after date of the Encounter. The data comes from all [place] treatment facilities. Date/Time Radiology Report Provider Source May 15, 2022 01:23 PM CHEST 2 VIEWS PA AND LAT: DARIEN HERNANDEZ [facility] REGI MANTILLA KRISTOFER [id number] -APR 28, 194 8 M Exm Date: MAY 15, 2022@13:23 Req Phys: ROSY FAITH Pat Loc: [facility] CARDIAC E P MARCELL 3D (Req Img Loc: MAIN X-RAY Service: Unknown (Case [id number] COMPLETE) CHEST 2 VIEWS PA AND LAT (R AD Detailed) CPT:15767 Reason for Study: cough, SOB x 2 months; evalua te for edema/infiltrate Clinical History: [place] IS NOT under investigation for COVID-19 or is COVID-19 negative cough, SOB x 2 months Responsible provider name and phone number to notify for critical findings if other than user placing the order and pager listed below: User placing orders pager: [phone] LAST CREATININE 1.2 (05/15/22) Report Status: Verified Date Reported: MAY 15, 2022 Date Verified: MAY 15, 2022 [employer] Maker E-Sig:/ES/DARIEN HERNANDEZ MD Report: CHEST 2 VIEWS PA AND LAT 05/15/2022 1:23 PM HISTORY: Cough; shortness of breath for two mon ths; evaluate for pulmonary edema or infiltrate. TECHNIQUE: PA and lateral views of the chest. COMPARISON: 07/28/2020. FINDINGS: The lungs are clear. There is persist ent bilateral diaphragmatic flattening, suggestive of mild hy perinflation. The cardiomediastinal silhouette is unremarkabl e. There is no pleural effusion. Calcified focal pleural plaqu es, as best appreciated in the anterior mid right hemithora x, are stable; these calcified pleural plaques were demonstrat ed to better advantage on the prior chest CT dated 05/04/2017 . A chronic moderate vertebral body compression f racture near the thoracolumbar junction, likely at L1, was also present on the prior chest radiograph dated 07/28/2020. Impression: Compared to 07/28/2020, 1. No acute cardiopulmon [place] disease. 2. Persistent probable mild bilateral hyperinflati on. 3. Evidence of prior asbestos exposure, noting that bilater al calcified pleural plaques were demonstrated to better adv antage on prior chest CT dated 05/04/2017. Primary Interpreting Staff: DARIEN HERNANDEZ MD, RADIOLOGIST ([employer]t [employer] Maker) /CDC Pathology Reports: +/- 30 days of the [...] the Encounter. The data comes from all [place] treatment facilities. Date/Time Pathology Report Provider Source May 08, 2022 06:46 PM LR SURGICAL PATHOLOGY REPORT: SARAH MEDEL [facility] LOCAL TITLE: LR SURGICAL PATHOLOGY REPORT STANDARD TITLE: PATHOLOGY REPORT DATE OF NOTE: MAY 08, 2022@18:46:34 ENTRY DATE: MAY 08, 2022@18:46:34 AUTHOR: SARAH MEDEL EXP COSIGNER: URGENCY: STATUS: COMPLETED $APHDR Reporting Lab: [facility] [CLIA# [id number]] [place] [address] - - - - - - - [...] STAFF PATHOLOGIST, PATHOLOGY & LABORATORY MED C Signed May 08, 2022@18:46 Performing Laboratory: Surgical Pathology Report Performed By: [facility] [CLIA# [id number]] [place] [address] $FTR - - - - - - [...] - - REGI MANTILLA STANDARD FORM 515 ID:[id number] SEX:M :1950 AGE: 72 LOC: 1153 PCP: Preet Anderson MD /mikal/ SARAH MEDEL MD STAFF PATHOLOGIST, PATHOLOGY & LABORATORY MED SV C Signed: 05/08/2022 18:46 Encounter Notes: All associated encounter notes This section contains the clinical notes associated to the Encounter. Date/Time Encounter Note(s) Provider Source Apr 23, 2022 12:43 MEDICATION MGT CONSULT: MARIANA PHAM [facility] LOCAL TITLE: ANTICOAGULATION CLINIC CONSULT STANDARD TITLE: MEDICATION MGT CONSULT DATE OF NOTE: APR 23, 2022@12:43 ENTRY DATE: APR 23, 2022@12:43:08 AUTHOR: MARIANA PHAM EXP COSIGNER: URGENCY: STATUS: COMPLETED ANTICOAGULATION CLINIC CONSULT Has ADDENDA DOAC INITIATION - Anticoagulant: apixaban 5mg q12h - Indication(s): Afib - Relevant PMH: - NSTEMI 2018 - Prior major bleeds: no major bleeds per pt - h/o internal hemorrhoids - 02/2022 non-erosive gastritis, on PPI - h/o anemia w/Etoh abuse - Prior anticoagulants: none - Start date: 03/2022 - Anticipated duration: indefinite - LBMOT4CSCP = 3 (age, htn, CAD) - CHADS = 1 (htn) low risk - HASBLED = 3 (age, etoh, anemia) high risk SUBJECTIVE/OBJECTIVE Obtained from chart review, [facility], and zahra ent by phone. Pt discussed RVB with [place] EP cardiology , jeanette considering high Etoh use. Considering ablation in future. No Active bleeding/increased bleeding risk: No Active endocarditis: No Falls risk: No Abnormal mental status\compliance concerns: No Significant drug interactions: - Continues: - amiodarone, monitor, may inc bleed risk - sulfasalazine, monitor (level B inxtn per UpT oDate, monitor) Yes Alcohol use: - Baseline: since 02/2022 admission, reduced to 2-3 1oz shots whiskey + 1 beer, prior 1 pint whiskey + 6 pack/beer per da y - counseled on significant bleed risk, pt state d understanding and declined further resources No Renal or hepatic dysfunction: - LYNNE with local hospitalization 03/18-03/19/22 for gastritis, improved at discharge, LFTs moderately elevated but under 3x upper limit of normal No Valvular disease (mitral stenosis) or mechani sergio valve replacement: -02/2022 [facility] ECHO No Active cancer/hypercoagulability: No History of bariatric or bowel resection surge ry: No Weight >150kg/BMI >50 Dashboard flags: none Active and Recently Outpatient Medicatio ns (excluding Supplies): Active Outpatient Medications Status 1) ACETAMINOPHEN [...] A DAY Inactive Outpatient Medications Status 1) COLON ELECTROLYTE LAVAGE PWD FOR SOLN TAKE 1 CONTAINER (4 LITERS) BY MOUTH DIRECTED FOR C OLON PREP *MIX ACCORDING TO PACKAGE INSTRUCTIONS. *D RINK ONE-HALF CONTAINER STARTING AT 4PM THE DAY BEFO RE EXAM. DRINK REMAINING ONE-HALF CONTAINER 6 HOUR S BEFORE EXAM. 2) MAGNESIUM CITRATE LIQUID TAKE 1 BOTTLE BY KIRSTIN TH ONCE AT 12PM (NOON) ONE DAY BEFORE PROCEDURE FOR COL ON PREP 18 Total Medications Labs ---- Age: 71 Weight: 122.1 lb [55.4 kg] (04/12/2022 08:13) BMI: 22.4 Height: 62 in [157.5 cm] (03/05/2022 12:54) CREATININE 1.0 PLASMA (03/05/22 11:47) 1.0 PLASMA (01/11/22 09:15) 1.1 PLASMA (09/28/21 09:18) Outside hemoglobin Lab result: 16.1 Date: March 18, 2022 Outside platelet count Lab result: 227 Date: March 18, 2022 Outside creatinine (serum) Lab result: 1.4 Date: March 19, 2022 Outside AST Lab result: 66 Date: March 18, 2022 Outside ALT Lab result: 61 Date: March 18, 2022 Cockcroft & Gault (Actual body weight) = 39.7 (m L/min) Collection DT Spec WBC HGB HCT PLT MCV NEUT LYMP HS 01/11/2022 09:15 BLOOD 10.65 13.1 L 38.7 L 235 1 06.0 H 66.8 16.9 09/28/2021 09:18 BLOOD 11.98 H 14.0 41.7 243 104 .0 H 62.1 19.5 06/19/2021 07:58 BLOOD 10.57 11.6 L 34.3 L 294 1 03.9 H 79.0 9.7 Collection DT Specimen Test Name Result Units Re f Range 03/05/2022 11:47 PLASMA AST/SGOT 21 U/L Ref: <=3 4 03/05/2022 11:47 PLASMA ALT/SGPT 15 U/L Ref: <=5 5 ASSESSMENT/PLAN - Appropriate for DOAC use. - Does NOT meet 2 out of 3 criteria (age >/= 80 years, creatinine >/= 1.5,weight </= 60 kg) for apixaban dose reducti on in A. fib. - Counseled on potential risks in use with: o Etoh intake, pt declined cessation resources - Baseline labs within the past ~30 days: availa ble. Noted recent hospitalization with LYNNE, improved at discharge & elevated LFTs but under 3x upper limit of normal. - Approve DOAC use: apixaban 5mg q12h - Education attempt(s) below. Will mail DOAC/Rx education materials. - Appropriate review planned: periodic, initial - Lab monitoring frequency defined by dashboard or as clinically indicated. - Monitor dashboard for labs, drug interactions, and compliance. - group home use of anticoagulants added to probl em list. - Other: 05/07/22 colonoscopy scheduled, will request GI team enter consult, pt is aware they will call him with official apixab an hold plan. Time spent: 30 minutes Patient Education of Treatment Plan: Indicates r eadiness to learn, verbalizes understanding, agreement and satisfaction with t he treatment plan. Denies further questions. ANTICOAGULATION EDUCATIONAL ASSESSMENT Part One - To be completed once a year or upon change of patient health status BARRIERS/SPECIAL NEEDS: No barriers identified Part Two - To be completed at each educational episode READINESS TO LEARN No barriers identified PARTICIPANTS: patient TEACHING STRATEGY: 1:1, Written/print materials OBJECTIVES/CONTENT: Apixaban Apixaban Handout was given and contents reviewe dRiaz Patient will: 1. Patient can recognize drug by name (apixaban , Eliquis) and by appearance:MET 2. State reasons for taking apixaban: MET 3. Describe how to take apixaban: MET - Take as close to every 12 hours apart as poss ible - What to do if dose is missed: If more than 6 hours after dose scheduled, then skip dose and return to regular dosing kavita edule when next dose is due. Do not double dose to make up for a missed dose. 4. Describe other safety precautions: MET - Avoid aspirin (salicylates) and medications c ontaining pain relievers similar to aspirin such as ibuprofen, naproxen or ketoprofen. Many cold or pain relief medications have aspirin or NSAI DS in them. - Avoid clopidogrel (Plavix), strong P-gp and C Y inducers (ie: rifampin, carbamazepine, phenytoin), and St.Walker Wort. - Inform all health care providers (including michael yancey) that you are taking apixaban, particularly if surgery or an invasiv e procedure is planned as you will probably be taken off apixaban for the procedure. Always notify anticoagulation clinic if a procedure or surger y is scheduled. - Carry an identification card, showing you barb e apixaban. - Identify falls complications while on apixaba n (bruising, bleeding, hematomas, head trauma with potential for intra cranial hemorrhage). - If you are or thinking of becoming p regnant, discuss with doctor prior to taking apixaban. 5. Describe symptoms of excessive anticoagulati on:MET - Bleeding from gums or nose. - Bleeding from cuts that do not stop within 10 -15 minutes. - Coughing/vomiting up blood. - Red or black tarry bowel movements. - Vining, red, orange or dark urine. - Unusually heavy menstrual periods. 6. Describe symptoms of inadequate anticoagulat ion relevant to the patient's diagnosis: MET - Unexplained swelling, pain, redness or warmth in arm or leg - Unexplained sudden shortness of breath or chelle st pain - Facial droop, weakness or paralysis, numbness or tingling, vision changes or slurred speech 7. State who is responsible for follow-up apixa ban monitoring: MET 8. Identify provider to call for questions, con cerns and problems: MET Patient received a written copy of the informati on discussed. PATIENT/FAMILY RESPONSE (OUTCOME): Verbalizes cr itical information about the topic FOLLOW-UP RECOMMENDED:None needed Time spent on education: 15 minutes /mikal/ MARIANA PHAM PHARMACIST Signed: 04/23/2022 14:28 04/23/2022 ADDENDUM STATUS: COMPLETED Alert to GI: pt is now on ap ixaban for afib & has 05/07/22 colonoscopy scheduled, will request GI team enter consult to willow benitez. /mikal/ MARIANA PHAM PHARMACIST Signed: 04/23/2022 14:30 Receipt Acknowledged By: * AWAITING SIGNATURE * VJ ROLON
--- OUTSIDE RECORDS SUMMARY | 2022-06-25 19:36 | XMS_ITS | Encounter Summary ---
:1950 Author Organization [facility] Address [address] [place] [address] Support Name Relationship Address Phone MADELIN MANTILLA Unavailable [phone] [place] [address] MADELIN MANTILLA Unavailable [address] [phone] [place] [address] DHAVAL MANTILLA Unavailable [address] [place] [address] Insurance Providers: All historical and current Section [...] MEDICARE MEDICARE PART Jul 18, PART B [id number] 800 ANNALEE BUSTILLO (WNR) (M) B 2014 24A [phone] ,REGI MEDICARE MEDICARE PART Apr 17, PART A [id number] 800 ANNALEE BUSTILLO (WNR) (M) A 2012A [phone] ,REGI Selected Encounter This section includes the information on record at [place] for the Encounter. Date/Time Encounter Type Encounter Description Reason Provider Source April 04, 2022 04:45 Outpatient Encounter ADMIN CURT HERIANGELINA PM (MASNONCT) IHE Encounter Template Text not used by [place] Plan of Treatment: Future Appointments (+ 6 [...] 20 appointments. The data comes from all [place] treatment [facility]. Appointment Date/Time Appointment Type Appointment Facili ty Name April 10, 2022 11:00 AM AMBULATORY - MEDICINE [facility] April 10, 2022 11:30 AM AMBULATORY - MEDICINE [facility] April 12, 2022 08:30 AM AMBULATORY - MEDICINE [facility] May 07, 2022 09:00 AM AMBULATORY - MEDICINE [facility] May 15, 2022 10:30 AM AMBULATORY - MEDICINE [facility] May 15, 2022 10:40 AM AMBULATORY - MEDICINE [facility] May 15, 2022 11:30 AM AMBULATORY - MEDICINE [facility] May 15, 2022 01:00 PM AMBULATORY - MEDICINE [facility] May 15, 2022 01:45 PM AMBULATORY - NONE [facility] Jun 19, 2022 01:15 PM AMBULATORY - NONE [facility] Jun 24, 2022 05:53 PM AMBULATORY - MEDICINE [facility] Jul 12, 2022 09:20 AM AMBULATORY - SURGERY [facility] Jul 19, 2022 08:00 AM AMBULATORY - MEDICINE [facility] Jul 19, 2022 09:00 AM AMBULATORY - MEDICINE [facility] Active, Pending, and Scheduled Orders This section includes a listing of several types of active, pending, and scheduled orders, including clinic medications orders, diagnostic test orders, procedure orders and consult orders; where the start date of the order is 45 days before the date of the Encounter or 45 days after the date of the Encounter. The data comes from all [facility]. Test Date/Time Test Type Test Details Facility Name May 15, 2022 12:00 Laboratory - COVID-19 AND FLU/RSV DIAG [facility] AM Chemistry Order PANEL(CEPHEID) NASOPHARYNGEAL SWAB STAT WC ONCE Social History: Smoking Status (Most current) and Tobacco Use (All prior to encounter date) This section includes the most current, and the historical, smoking and tobacco-related health factors from the [place] facility where the Encounter took place.Current Smoking Status This section includes the most current smoking, or tobacco-related health factor, from the [place] facility where the Encounter took place. Date/Time Current Smoking Status Comment Facility Mar 05, 2022 01:30 PM VA-TOBACCO FORMER USER [facility] Tobacco Use History This section includes a history of the smoking, or tobacco- related health factors, that were collected on or before the date of the Encounter. The data comes from the [place] facility where the Encounter took place. Date/Time Smoking Status/Tobacco Use Comment Facil ity Mar 05, 2022 01:30 PM VA-TOBACCO QUIT 1 TO < 5 YRS [facility] Jun 01, 2021 02:00 PM VA-TOBACCO NEVER USED [place] [facility] Dec 31, 2019 10:54 AM VA-TOBACCO FORMER USER [place] [facility] Dec 31, 2019 10:54 AM VA-TOBACCO QUIT < 1 YEAR [place] [facility] March 23, 2019 09:53 AM VA-TOBACCO FORMER USER [place] [facility] March 23, 2019 09:53 AM VA-TOBACCO QUIT < 1 YEAR [place] [facility] Jun 10, 2018 10:00 AM CURRENT TOBACCO USER [place] [facility] May 10, 2018 07:27 PM IN[place] COUN[place] [facility] May 10, 2018 07:27 PM [place] [facility] Aug 29, 2017 09:55 AM FORMER TOBACCO USE <1Y [facility] May 26, 2017 10:51 PM [place] [facility] May 26, 2017 10:51 PM INPT [place]AC[place] [facility] May 03, 2017 09:34 PM [place] [facility] May 03, 2017 09:34 PM [place] [facility] Sep 18, 2016 01:36 PM FORMER TOBACCO USE <1Y [place] [facility] Aug 10, 2016 03:54 PM INPT TOBACCO USE - PT REFUSED [facility] Aug 01, 2016 06:48 PM [place] [facility] Aug 01, 2016 06:48 PM IN[place] US[place] [facility] Feb 08, 2015 09:57 AM CURRENT TOBACCO USER [place] [facility] Nov 29, 2013 10:37 AM CURRENT TOBACCO USER [place] [facility] Nov 26, 2013 11:09 AM PATIENT [place] TOBACCO USER [place] [facility] Nov 27, 2012 12:12 PM CURRENT TOBACCO USER [place] [facility] Dec 27, 2011 09:44 AM CURRENT TOBACCO USER [place] [facility] Jan 22, 2011 02:38 PM CURRENT TOBACCO USER [place] [facility] Mar 13, 2010 12:48 PM CURRENT TOBACCO USER [place] [facility] Advance Directives: All historical and current Section Date Range: From patient's date of to the date document was created. This section includes ALL of a patient's completed or amended [place] Advance and Rescinded Directives. The entries below indicate that a directive exists for the patient, but an actual copy is not included with this document. The data comes from all [place] facilities. Date Advance Directives Provider Source Feb 25, 2018 ADVANCE DIRECTIVE AURORA MORALES [facility] Feb 24, 2018 ADVANCE DIRECTIVE DISCUSSION ANDREWAURORA Bianchi [facility] May 26, 2017 CLINICAL WARNING DIANEMAGO Wood [facility] May 03, 2017 CLINICAL WARNING DANIELCANDIDAJANAYSHAWIda [facility] Aug 10, 2016 CLINICAL WARNING ISABEL BARCENAS [facility] Aug 02, 2016 CLINICAL WARNING JHON ALMAZANIE Carla [facility] Encounter Notes: All associated encounter notes This section contains the clinical notes associated to the Encounter. Date/Time Encounter Note(s) Provider Source March 19, 2022 04:45 PM [facility]VA [facility] LOCAL TITLE: HOSPITALIZATION PRIVATE NONVA NOTE STANDARD TITLE: NONVA NOTE DATE OF NOTE: MARCH 19, 2022@16:45 ENTRY DATE: APRIL 04, 2022@16:48:14 AUTHOR: MILENA DERAS EXP COSIGNER: URGENCY: STATUS: COMPLETED This note contains attached HOSPITALIZATION PRIV ATE scanned document(s) received from an outside facility. Open [employer] Display to review the documen t(s). /mikal/ MILENA DERAS Adjunct Writing Instructor Signed: 04/04/2022 16:48
--- OUTSIDE RECORDS SUMMARY | 2022-06-25 19:36 | XMS_ITS | Encounter Summary ---
:1950 Author Organization [facility] Address [address] [place] [address] Support Name Relationship Address Phone MADELIN MANTILLA Unavailable [phone] [place] [address] MADELIN MANTILLA Unavailable [address] [phone] [place] [address] DHAVAL MANTILLA Unavailable [address] [place] [address] Insurance Providers: All historical and current Section [...] MEDICARE MEDICARE PART Jul 18, PART B [id number] 800 ANNALEE BUSTILLO (WNR) (M) B 2014 24A [phone] ,REGI MEDICARE MEDICARE PART Apr 17, PART A [id number] 800 ANNALEE BUSTILLO (WNR) (M) A 2012A [phone] ,REGI Selected Encounter This section includes the information on record at [place] for the Encounter. Date/Time Encounter Type Encounter Description Reason Provider Source Feb 17, 2022 12:00 Outpatient Encounter ADMIN CURT RICO AM (MASNONCT) IHE Encounter Template Text not used [...] The data comes from all [place] treatment facilities. Appointment Date/Time Appointment Type Appointment Facili ty Name Mar 05, 2022 12:30 PM AMBULATORY - NONE [facility] Mar 05, 2022 01:30 PM AM[facility]ATORY [facility]IC[facility] Mar 12, 2022 11:00 AM AMBULATORY - [facility]IC[facility] March 19, 2022 06:03 PM AMBULATORY - NONE [facility] April 10, 2022 11:00 AM AMBULATORY - [facility]IC[facility] April 10, 2022 11:30 AM AMBULATORY - [facility]IC[facility] April 12, 2022 08:30 AM AMBULATORY - [facility]IC[facility] May 07, 2022 09:00 AM AMBULATORY - [facility]ICINE [facility] May 15, 2022 10:30 AM AMBULATORY - [facility]ICINE [facility] May 15, 2022 10:40 AM AMBULATORY - [facility]ICINE [facility] May 15, 2022 11:30 AM AMBULATORY - [facility]ICINE [facility] May 15, 2022 01:00 PM AMBULATORY - [facility]ICINE [facility] May 15, 2022 01:45 PM AMBULATORY - NONE [facility] Jun 19, 2022 01:15 PM AMBULATORY - NONE [facility] Jun 24, 2022 05:53 PM AMBULATORY - MEDICINE [facility] Jul 12, 2022 09:20 AM AMBULATORY - SURGERY [facility] Jul 19, 2022 08:00 AM AMBULATORY - MEDICINE [facility] Jul 19, 2022 09:00 AM AMBULATORY - MEDICINE [facility] Lab Results: +/- 30 days of the encounter This section includes the Chemistry and Hematology Lab Results on record with [place] for the patient. Radiology Reports and Pathology Reports are provided separately, in subsequent sections.Lab Results This section contains the Chemistry/Hematology Results that were resulted 30 days before or 30 daysafter the date of the Encounter. Date/Time Source Result Type Result - Unit Interpretation Reference Range Comment Mar 05, 2022 11:47 AM [facility] HEMOGLOBIN A1C Specim en Type: BLOOD No comment enter ed. Ordering Provid er: MARYELLEN LEON Report Released Date/Time: Jun 01, 2021 04:21 PM Reporting Lab: [facility] [address] [facility] [id number] Performing Lab: [facility] ONE [facility] I [facility] [address] HEMOGLOBIN A1C 5.6 4.0-6.0 Mar 05, 2022 11:47 [facility] LIPID PANEL,NON-FASTING S pecimen Type: PLASMA AM No comment enter ed. Ordering Provid er: MARYELLEN LEON Report Released Date/Time: Jun 01, 2021 04:21 PM Reporting Lab: [facility] [id number] Performing Lab: [facility] [address] CHOLESTEROL 188 <199 .HDL 83 >40 LDL CALCULATION 78 <99 VLDL CALCULATION 27 <29 NON HDL CHOLESTEROL 105 <129 TRIG(NON FASTING) 133 <149 Mar 05, 2022 11:47 [facility] BASIC METABOLIC Specimen Type: PLASMA AM PANEL+MG No comment enter ed. Ordering Provid er: MARYLELEN LEON Report Released Date/Time: Jun 01, 2021 04:21 PM Reporting Lab: [facility] [address] Performing Lab: [facility] [address] CREATININE 1.0 0.7-1.2 UREA NITROGEN 21 8-26 GLUCOSE 112 H 74-100 SODIUM 139 136-145 POTASSIUM 4.9 3.5-5.1 CHLORIDE 103 98-107 CO2 25 22-29 CALCIUM 9.6 8.4-10.2 MAGNESIUM 1.6 1.6-2.6 ANION GAP 11 5-15 CREAT EGFR(CKD-EPI) 79 >60 Mar 05, 2022 11:47 AM [facility] ALT/SGPT Specim en Type: PLASMA No comment enter ed. Ordering Provid er: MARYELLEN LEON Report Released Date/Time: Mar 05, 2022 01:38 PM Reporting Lab: [facility] [address] Performing Lab: [facility] [address] ALT/SGPT 15 <55 Mar 05, 2022 11:47 AM [facility] AST/SGOT Specim en Type: PLASMA No comment enter ed. Ordering Provid er: MARYELLEN LEON Report Released Date/Time: Mar 05, 2022 01:38 PM Reporting Lab: [facility] [address] [facility] [address] Performing Lab: [facility] [address] AST/SGOT 21 <34 Social History: Smoking Status (Most current) and Tobacco Use (All prior to encounter date) This section includes the most current, and the historical, smoking and tobacco-related health factors from the [facility] where the Encounter took place.Current Smoking Status This section includes the most current smoking, or tobacco-related health factor, from the [place] facility where the Encounter took place. Date/Time Current Smoking Status Comment Facility Jun 01, 2021 02:00 PM VA-TOBACCO NEVER USED [place] [facility] Tobacco Use History This section includes a history of the smoking, or tobacco- related health factors, that were collected on or before the date of the Encounter. The data comes from the [facility] where the Encounter took place. Date/Time Smoking Status/Tobacco Use Comment [facility] Dec 31, 2019 10:54 AM VA-TOBACCO FORMER USER [place] [facility] Dec 31, 2019 10:54 AM [place]-TOBACCO QUIT < 1 YEAR M [facility] March 23, 2019 09:53 AM VA-TOBACCO FORMER USER [place] [facility] March 23, 2019 09:53 AM VA-TOBACCO QUIT < 1 YEAR M [facility] Jun 10, 2018 10:00 AM CURRENT [facility]ACCO [facility] May 10, 2018 07:27 PM [place] [facility] May 10, 2018 07:27 PM INPT TOBACCO US[place] [facility] Aug 29, 2017 09:55 AM FORMER TOBACCO USE <1Y [facility] May 26, 2017 10:51 PM INPT TOBACCO [facility]SELING [place] [facility] May 26, 2017 10:51 PM [place] [facility] May 03, 2017 09:34 PM INPT [place] [facility] May 03, 2017 09:34 PM [place]AC[place] [facility] Sep 18, 2016 01:36 PM FORMER TOBACCO USE <1Y [place] [facility] Aug 10, 2016 03:54 PM INPT TOBACCO USE - PT REFUSED [facility] Aug 01, 2016 06:48 PM INPT [place] [facility] Aug 01, 2016 06:48 PM INPT TOBACCO USER [place] [facility] Feb 08, 2015 09:57 AM CURRENT [facility] Nov 29, 2013 10:37 AM CURRENT [facility] Nov 26, 2013 11:09 AM PATIENT [place] TOBACCO [place] [facility] Nov 27, 2012 12:12 PM CURRENT TOBACCO USER [facility] Dec 27, 2011 09:44 AM CURRENT TOBACCO USER [facility] Jan 22, 2011 02:38 PM CURRENT TOBACCO USER [facility] Mar 13, 2010 12:48 PM CURRENT TOBACCO USER [facility] Advance Directives: All historical and current Section Date Range: From patient's date of to the date document was created. This section includes ALL of a patient's completed or amended [place] Advance and Rescinded Directives. The entries below indicate that a directive exists for the patient, but an actual copy is not included with this document. The data comes from all [facility]. Date Advance Directives Provider Source Feb 25, 2018 ADVANCE DIRECTIVE AURORA MORALES [facility] Feb 24, 2018 ADVANCE DIRECTIVE DISCUSSION AURORA MORALES [facility] May 26, 2017 CLINICAL WARNING MAGO CONTRERAS [facility] May 03, 2017 CLINICAL WARNING SARIAH ENGLE [facility] Aug 10, 2016 CLINICAL WARNING ISABEL BARCENAS [facility] Aug 02, 2016 CLINICAL WARNING AURORA ALMAZAN [facility] Encounter Notes: All associated encounter notes This section contains the clinical notes associated to the Encounter. Date/Time Encounter Note(s) Provider Source Feb 17, 2022 12:00 AM NONVA NOTE: LISETTE BERRIOS [facility] LOCAL TITLE: EMERGENCY DEPARTMENT NONVA NOTE STANDARD TITLE: NONVA NOTE DATE OF NOTE: FEB 17, 2022 ENTRY DATE: FEB 25@16:35:52 AUTHOR: LISETTE BERRIOS EXP COSIGNER: URGENCY: STATUS: COMPLETED [facility] - Scanned Document This note contains attached EMERGENCY DEPARTMENT scanned document(s) received from an outside facility. Open [employer] Display to review the documen t(s). /mikal/ LISETTE BERRIOS Station Cashier - HIT Signed: 02/25/2022 16:35 Feb 17, 2022 12:00 AM NONVA NOTE: VIVIANE ARAUJO [facility] LOCAL TITLE: RADIOLOGY NONVA NOTE STANDARD TITLE: NONVA NOTE DATE OF NOTE: FEB 17, 2022 ENTRY DATE: FEB 19@14:08:40 AUTHOR: VIVIANE ARAUJO EXP COSIGNER: URGENCY: STATUS: COMPLETED [facility] - Scanned Document This note contains attached RADIOLOGY scanned do cument(s) received from an outside facility. [facility] [employer] Display to review the documen t(s). /mikal/ VIVIANE Guevara [facility] INFORMATION L D RN Signed: 02/19/2022 14:08
--- OUTSIDE RECORDS SUMMARY | 2022-06-25 19:36 | XMS_ITS | Encounter Summary ---
:1950 Author Organization [facility] Address [address] [place] [address] Support Name Relationship Address Phone MADELIN MANTILLA Unavailable [address] [phone] [place] [address] MADELIN MANTILLA Unavailable [phone] [place] [address] DHAVAL MANTILLA Unavailable [address] [place] [address] Insurance Providers: All historical and current Section [...] MEDICARE MEDICARE PART Jul 18, PART B [id number] 800 ANNALEE BRYANIENT (WNR) (M) B 2014A [phone] ,REGI MEDICARE MEDICARE PART Apr 17, PART A [id number] 800 ANNALEE BRYANIENT (WNR) (M) A 2012A [phone] ,REGI Selected Encounter This section includes the information on record at [place] for the Encounter. Date/Time Encounter Type Encounter Description Reason Provider Source Feb 26, 2022 02:04 Outpatient Encounter TELEPHONE PRIMARY CARE IHE Encounter Template Text not used by [place] Plan of Treatment: Future Appointments (+ 6 months) and Future Tests (+/- 45 days) The Plan of Treatment section includes future care activities for the patient from all [place] treatmentfacilities. This section includes future appointments and future orders which are active, pending orscheduled.Future Appointments This section includes appointments that were scheduled to occur 6 months from the date of the Encounter, up to a maximum of 20 appointments. The data comes from all [place] treatment facilities. Appointment Date/Time Appointment Type Appointment Facili ty Name Mar 05, 2022 12:30 PM AMBULATORY - NONE [facility] Mar 05, 2022 01:30 PM AMBULATORY - MEDICINE [facility] Mar 12, 2022 11:00 AM AMBULATORY - MEDICINE [facility] March 19, 2022 06:03 PM AMBULATORY - NONE [facility] April 10, 2022 11:00 AM AMBULATORY - MEDICINE [facility] April 10, 2022 11:30 AM AMBULATORY - MEDICINE [facility] April 12, 2022 08:30 AM AMBULATORY - MEDICINE [facility] May 07, 2022 09:00 AM AMBULATORY - MEDICINE [facility] May 15, 2022 10:30 AM AMBULATORY - MEDICINE [facility] May 15, 2022 10:40 AM AMBULATORY - MEDICINE [facility] May 15, 2022 11:30 AM AMBULATORY - MEDICINE [facility] May 15, 2022 01:00 PM AMBULATORY - MEDICINE [facility] May 15, 2022 01:45 PM AMBULATORY - NONE [facility] Jun 19, 2022 01:15 PM AMBULATORY - NONE [facility] Jun 24, 2022 05:53 PM AMBULATORY - MEDICINE [facility] Jul 12, 2022 09:20 AM AMBULATORY - SURGERY [facility] Jul 19, 2022 08:00 AM AMBULATORY - MEDICINE [facility] Jul 19, 2022 09:00 AM AMBULATORY - MEDICINE [facility] Lab Results: +/- 30 days of [...] Range Comment Mar 05, 2022 11:47 AM [facility] HEMOGLOBIN A1C Specim en Type: BLOOD No comment enter ed. Ordering Provid er: MARYELLEN LEON Report Released Date/Time: Jun 01, 2021 04:21 PM Reporting Lab: [facility] [address] [place] [facility] [address] Performing Lab: [facility] [address] [place] [facility] [address] HEMOGLOBIN A1C 5.6 4.0-6.0 Mar 05, 2022 11:47 [facility] LIPID PANEL,NON-FASTING S pecimen Type: PLASMA AM No comment enter ed. Ordering Provid er: MARYELLEN LEON Report Released Date/Time: Jun 01, 2021 04:21 PM Reporting Lab: [facility] [address] [facility] [address] Performing Lab: [facility] [address] CHOLESTEROL 188 <199 .HDL 83 >40 LDL CALCULATION 78 <99 VLDL CALCULATION 27 <29 NON HDL CHOLESTEROL 105 <129 TRIG(NON FASTING) 133 <149 Mar 05, 2022 11:47 [facility] BASIC METABOLIC Specimen Type: PLASMA AM PANEL+MG No comment enter ed. Ordering Provid er: MARYELLEN LEON Report Released Date/Time: Jun 01, 2021 04:21 PM Reporting Lab: [facility] [address] [facility] [address] Performing Lab: [facility] [address] CREATININE 1.0 0.7-1.2 UREA NITROGEN 21 8-26 GLUCOSE 112 H 74-100 SODIUM 139 136-145 POTASSIUM 4.9 3.5-5.1 CHLORIDE 103 98-107 CO2 25 22-29 CALCIUM 9.6 8.4-10.2 MAGNESIUM 1.6 1.6-2.6 ANION GAP 11 5-15 CREAT EGFR(CKD-EPI) 79 >60 Mar 05, 2022 11:47 AM [facility] AST/SGOT Specim en Type: PLASMA No comment enter ed. Ordering Provid er: MARYELLEN LEON Report Released Date/Time: Mar 05, 2022 01:38 PM Reporting Lab: [facility] [facility] [address] Performing Lab: [facility] [facility] [address] AST/SGOT 21 <34 Mar 05, 2022 11:47 AM [facility] ALT/SGPT Specim en Type: PLASMA No comment enter ed. Ordering Provid er: MARYELLEN LEON Report Released Date/Time: Mar 05, 2022 01:38 PM Reporting Lab: [facility] [place] [facility] [address] Performing Lab: [facility] [address] ALT/SGPT 15 <55 Social History: Smoking Status (Most current) and Tobacco Use (All prior to encounter date) This section includes the most current, and the historical, smoking and tobacco-related health factors from the [facility] where the Encounter took place.Current Smoking Status This section includes the most current smoking, or tobacco-related health factor, from the [place] facility where the Encounter took place. Date/Time Current Smoking Status Comment Facility Jun 01, 2021 02:00 PM VA-TOBACCO NEVER USED [facility] Tobacco Use History This section includes a history of the smoking, or tobacco- related health factors, that were collected on or before the date of the Encounter. The data comes from the [place] facility where the Encounter took place. Date/Time Smoking Status/Tobacco Use Comment [facility] Dec 31, 2019 10:54 AM VA-TOBACCO FORMER USER [facility] Dec 31, 2019 10:54 AM VA-TOBACCO QUIT < 1 YEAR M [facility] March 23, 2019 09:53 AM VA-TOBACCO FORMER USER [facility] March 23, 2019 09:53 AM VA-TOBACCO QUIT < 1 YEAR M [facility] Jun 10, 2018 10:00 AM CURRENT [facility]AC[facility] May 10, 2018 07:27 PM [facility]AC[facility] May 10, 2018 07:27 PM INPT TOBACCO USER [facility] Aug 29, 2017 09:55 AM FORMER TOBACCO USE <1Y [facility] May 26, 2017 10:51 PM INPT TOBACCO COUNSELING [facility] May 26, 2017 10:51 PM INPT TOBACCO US[facility] May 03, 2017 09:34 PM INPT TOBACCO COUNSELING [facility] May 03, 2017 09:34 PM INPT TOBACCO USER [facility] Sep 18, 2016 01:36 PM FORMER TOBACCO USE <1Y [facility] Aug 10, 2016 03:54 PM INPT TOBACCO USE - PT REFUSED [facility] Aug 01, 2016 06:48 PM INPT TOBACCO COUNSELING [facility] Aug 01, 2016 06:48 PM INPT TOBACCO USER [facility] Feb 08, 2015 09:57 AM CURRENT [facility]ACCO [facility] Nov 29, 2013 10:37 AM CURRENT [facility]BACCO USER [facility] Nov 26, 2013 11:09 AM PATIENT IS [facility]BACCO [facility] Nov 27, 2012 12:12 PM CURRENT [facility]ACCO [facility] Dec 27, 2011 09:44 AM CURRENT [facility]AC[facility] Jan 22, 2011 02:38 PM CURRENT TOBACCO USER [facility] Mar 13, 2010 12:48 PM CURRENT TOBACCO USER [facility] Advance Directives: All historical and current Section Date Range: From patient's date of to the date document was created. This section includes ALL of a patient's completed or amended [place] Advance and Rescinded Directives. The entries below indicate that a directive exists for the patient, but an actual copy is not included with this document. The data comes from all [place] facilities. Date Advance Directives Provider Source Feb 25, 2018 ADVANCE DIRECTIVE AURORA MORALES [facility] Feb 24, 2018 ADVANCE DIRECTIVE DISCUSSION AURORA MORALES [facility] May 26, 2017 CLINICAL WARNING MAGO CONTRERAS [facility] May 03, 2017 CLINICAL WARNING SARIAH ENGLE [facility] Aug 10, 2016 CLINICAL WARNING ISABEL BARCENAS [facility] Aug 02, 2016 CLINICAL WARNING AURORA ALMAZAN [facility] Encounter Notes: All associated encounter notes This section contains the clinical notes associated to the Encounter. Date/Time Encounter Note(s) Provider Source Feb 26, 2022 02:04 PM PRIMARY CARE NONVA NOTE: RENEE FONTENOT [facility] LOCAL TITLE: CO-MANAGED CARE NOTE STANDARD TITLE: PRIMARY CARE NONVA NOTE DATE OF NOTE: FEB 26, 2022@14:04 ENTRY DATE: FEB 26, 2022@14:04:43 AUTHOR: RENEE FONTENOT EXP COSIGNER: URGENCY: STATUS: COMPLETED CO-MANAGED CARE NOTE Has ADDENDA The following prescriptions have been received i n co-managed care. A separate co-managed care note will be entered and alerted to the PCP when/if records are received. pantoprazole /es/ Renee Fontenot LPN Co-Senior Maintenance Mechanic Signed: 02/26/2022 14:04 03/28/2022 ADDENDUM STATUS: COMPLETED Pt will need to have the above prescription: Moon toprazole 40mg, take 1 tablet twice daily, with meals for 2 weeks then once daily indefinitely. Please review scanned notes from the pt's hospital stay on 02/18/22, this medication was ordered at this time. Prescription scanned and attached to this note. Alerting pcp to order for mail out. /mikal/ RACHAEL LOCKWOOD LPN Co-Senior Maintenance Mechanic Signed: 03/28/2022 13:48 Receipt Acknowledged By: * AWAITING SIGNATURE * MARYELLEN LEON
--- OUTSIDE RECORDS SUMMARY | 2022-06-25 19:36 | XMS_ITS | Encounter Summary ---
:1950 Author Organization [facility] Address [address] [place] [address] Support Name Relationship Address Phone MADELIN MANTILLA Unavailable [address] [phone] [place] [address] MADELIN MANTILLA Unavailable [address] [phone] [place] [address] DHAVAL MANTILLA Unavailable [address] [place] [address] Insurance Providers: All historical and current Section [...] MEDICARE MEDICARE PART Jul 18, PART B [id number] 800 ANNALEE BRYANIENT (WNR) (M) B 2014A [phone] ,RGEI MEDICARE MEDICARE PART Apr 17, PART A [id number] 800 ANNALEE Cardenas ATIENT (WNR) (M) A [phone] ,REGI Selected Encounter This section includes the information on record at [place] for the Encounter. Date/Time Encounter Type Encounter Description Reason Provider Source Feb 21, 2022 02:31 Outpatient Encounter CLINICAL PHARMACY PM IHE Encounter Template Text not used by [place] Plan of Treatment: Future Appointments (+ 6 months) and Future Tests (+/- 45 days) The Plan of Treatment section includes future care activities for the patient from all [place] treatmentfacilities. This section includes future appointments and future orders which are active, pending orscheduled.Future Appointments This section includes appointments that were scheduled to occur 6 months from the date of the Encounter, up to a maximum of 20 appointments. The data comes from all [place] treatment facilities. Appointment Date/Time Appointment Type Appointment Facili ty Name Mar 05, 2022 12:30 PM AMBULATORY - NONE [facility] Mar 05, 2022 01:30 PM AMBULATORY - MEDICINE [facility] Mar 12, 2022 11:00 AM AMBULATORY - MEDICINE [facility] March 19, 2022 06:03 PM AMBULATORY - NONE [facility] April 10, 2022 11:00 AM AMBULATORY - MEDICINE [facility] April 10, 2022 11:30 AM AMBULATORY - MEDICINE [facility] April 12, 2022 08:30 AM AMBULATORY - MEDICINE [facility] May 07, 2022 09:00 AM AMBULATORY - MEDICINE [facility] May 15, 2022 10:30 AM AMBULATORY - MEDICINE [facility] May 15, 2022 10:40 AM AMBULATORY - MEDICINE [facility] May 15, 2022 11:30 AM AMBULATORY - MEDICINE [facility] May 15, 2022 01:00 PM AMBULATORY - MEDICINE [facility] May 15, 2022 01:45 PM AMBULATORY - NONE [facility] Jun 19, 2022 01:15 PM AMBULATORY - NONE [facility] Jun 24, 2022 05:53 PM AMBULATORY - MEDICINE [facility] Jul 12, 2022 09:20 AM AMBULATORY - SURGERY [facility] Jul 19, 2022 08:00 AM AMBULATORY - MEDICINE [facility] Jul 19, 2022 09:00 AM AMBULATORY - MEDICINE [facility] Lab Results: +/- 30 days of [...] Range Comment Mar 05, 2022 11:47 AM [facility] HEMOGLOBIN A1C Specim en Type: BLOOD No comment enter ed. Ordering Provid er: MARYELLEN LEON Report Released Date/Time: Jun 01, 2021 04:21 PM Reporting Lab: [facility] [address] [facility] [address] Performing Lab: [facility] [address] [facility] [address] HEMOGLOBIN A1C 5.6 4.0-6.0 Mar 05, 2022 11:47 [facility] LIPID PANEL,NON-FASTING S pecimen Type: PLASMA AM No comment enter ed. Ordering Provid er: MARYELLEN LEON Report Released Date/Time: Jun 01, 2021 04:21 PM Reporting Lab: [facility] [address] [facility] [address] Performing Lab: [facility] [address] [facility] [address] CHOLESTEROL 188 <199 .HDL 83 >40 LDL CALCULATION 78 <99 VLDL CALCULATION 27 <29 NON HDL CHOLESTEROL 105 <129 TRIG(NON FASTING) 133 <149 Mar 05, 2022 11:47 [facility] BASIC METABOLIC Specimen Type: PLASMA AM PANEL+MG No comment enter ed. Ordering Provid er: MARYELLEN LEON Report Released Date/Time: Jun 01, 2021 04:21 PM Reporting Lab: [facility] [address] [facility] [address] Performing Lab: [facility] [address] [facility] [address] CREATININE 1.0 0.7-1.2 UREA NITROGEN 21 8-26 GLUCOSE 112 H 74-100 SODIUM 139 136-145 POTASSIUM 4.9 3.5-5.1 CHLORIDE 103 98-107 CO2 25 22-29 CALCIUM 9.6 8.4-10.2 MAGNESIUM 1.6 1.6-2.6 ANION GAP 11 5-15 CREAT EGFR(CKD-EPI) 79 >60 Mar 05, 2022 11:47 AM [facility] AST/SGOT Specim en Type: PLASMA No comment enter ed. Ordering Provid er: MARYELLEN LEON Report Released Date/Time: Mar 05, 2022 01:38 PM Reporting Lab: [facility] [address] [facility] [address] Performing Lab: [facility] [address] [facility] [address] AST/SGOT 21 <34 Mar 05, 2022 11:47 AM [facility] ALT/SGPT Specim en Type: PLASMA No comment enter ed. Ordering Provid er: MARYELLEN LEON Report Released Date/Time: Mar 05, 2022 01:38 PM Reporting Lab: [facility] [address] [facility] [address] Performing Lab: [facility] [address] [facility] [address] ALT/SGPT 15 <55 Social History: Smoking Status (Most current) and Tobacco Use (All prior to encounter date) This section includes the most current, and the historical, smoking and tobacco-related health factors from the [place] facility where the Encounter took place.Current Smoking Status This section includes the most current smoking, or tobacco-related health factor, from the [place] facility where the Encounter took place. Date/Time Current Smoking Status Comment Facility Jun 01, 2021 02:00 PM [facility] Tobacco Use History This section includes a history of the smoking, or tobacco- related health factors, that were collected on or before the date of the Encounter. The data comes from the [place] facility where the Encounter took place. Date/Time Smoking Status/Tobacco Use Comment [facility] Dec 31, 2019 10:54 AM VA-TOBACCO FORMER USER [facility] Dec 31, 2019 10:54 AM CO-TOBACCO QUIT < 1 YEAR M [facility] March 23, 2019 09:53 AM VA-TOBACCO FORMER USER [facility] March 23, 2019 09:53 AM VA-TOBACCO QUIT < 1 YEAR M [facility] Jun 10, 2018 10:00 AM CURRENT TOBACCO USER [facility] May 10, 2018 07:27 PM [facility] [facility] May 10, 2018 07:27 PM [facility] Aug 29, 2017 09:55 AM FORMER TOBACCO USE <1Y [facility] May 26, 2017 10:51 PM [place]SEL[place] [facility] May 26, 2017 10:51 PM [facility] May 03, 2017 09:34 PM [facility] [place] [facility] May 03, 2017 09:34 PM INPT TOBACCO USER [facility] Sep 18, 2016 01:36 PM FORMER TOBACCO USE <1Y [facility] Aug 10, 2016 03:54 PM INPT TOBACCO USE - PT REFUSED [facility] Aug 01, 2016 06:48 PM [facility] [facility] [facility] [facility] Aug 01, 2016 06:48 PM [facility] Feb 08, 2015 09:57 AM CUR[facility] Nov 29, 2013 10:37 AM CURRENT TOBACCO USER [facility] Nov 26, 2013 11:09 AM PATIENT [place] [facility] [facility] [facility] Nov 27, 2012 12:12 PM CURRENT TOBACCO USER [facility] Dec 27, 2011 09:44 AM CURRENT TOBACCO USER [facility] Jan 22, 2011 02:38 PM CURRENT TOBACCO USER [facility] Mar 13, 2010 12:48 PM CURRENT TOBACCO USER [facility] Advance Directives: All historical and current Section Date Range: From patient's date of to the date document was created. This section includes ALL of a patient's completed or amended [place] Advance and Rescinded Directives. The entries below indicate that a directive exists for the patient, but an actual copy is not included with this document. The data comes from all [place] facilities. Date Advance Directives Provider Source Feb 25, 2018 ADVANCE DIRECTIVE AURORA MORALES [facility] Feb 24, 2018 ADVANCE DIRECTIVE DISCUSSION AURORA MORALES [facility] May 26, 2017 CLINICAL WARNING MAGO CONTRERAS [facility] May 03, 2017 CLINICAL WARNING SARIAH ENGLE [facility] Aug 10, 2016 CLINICAL WARNING ISABEL BARCENAS [facility] Aug 02, 2016 CLINICAL WARNING AURORA ALMAZAN [facility] Encounter Notes: All associated encounter notes This section contains the clinical notes associated to the Encounter. Date/Time Encounter Note(s) Provider Source Feb 21, 2022 02:31 PM PHARMACY NOTE: JULIUS HARDWICK [facility] LOCAL TITLE: PHARMACY NON CO CARE MEDICATIONS STANDARD TITLE: PHARMACY NOTE DATE OF NOTE: FEB 21, 2022@14:31 ENTRY DATE: FEB 21, 2022@14:31:55 AUTHOR: JULIUS HARDWICK EXP COSIGNER: URGENCY: STATUS: COMPLETED [facility] Outpatient Pharmacy RECEIVED electronic p rescription(s) (eRX(s)) from NON-VA Provider:ELIDA GARCIA Date eRX received: Feb Bryant not eligible to receive non-VA prescript ion(s) at this time. Prescription(s) REDIRECTED via FAX to: [X][facility] [ ]Other: [ ] [facility] ([facility]) [ ] [facility] [ ] [facility] [ ] [facility] e[facility] Reference #:[id number] eRx Prescription Information: eRx Drug: pantoprazole 40 mg tablet, eRx Qty: 30 eRx Refills: 0 eRx Sig: Take one tablet by mouth twice a day with meals for 2 weeks then once daily indefinitely. /mikal/ JULIUS HARDWICK PHARMACIST Signed: 02/21/2022 14:32
--- OUTSIDE RECORDS SUMMARY | 2022-06-25 19:36 | XMS_ITS | Encounter Summary ---
:1950 Author Organization Department [facility] Address [address] [place] [address] Support Name Relationship Address Phone MADELIN MANTILLA Unavailable [address] [phone] [place] [address] MADELIN MANTILLA Unavailable [address] [phone] [place] [address] DHAVAL MANTILLA Unavailable [address] [place] [address] Insurance Providers: All historical and current Section [...] MEDICARE MEDICARE PART Jul 18, PART B [id number] ANNALEE BRYANIENT (WNR) (M) B 2014A [phone] ,REGI MEDICARE MEDICARE PART Apr 17, PART A [id number] ANNALEE Cardenas ATIENT (WNR) (M) A [phone] ,REGI Selected Encounter This section includes the information on record at MD for the Encounter. Date/Time Encounter Type Encounter Reason Provider Source Description April 10, 2022 ELECTROCARDIOGRAM EKG ICD-10-CM Z13.6 IRIS AGUILAR 11:00 AM COMPLETE Encounter for MA Kathya screening for cardiovascular disorders with Provider Comments: Encounter for Screening for Cardiovascular Disorders IHE Encounter Template Text not used by MD Assessments - Encounter Diagnoses This section includes the primary and secondary diagnoses documented for the Encounter. Date/Time Primary/Secondary Diagnosis Name Provider Source Diagnosis April 10, 2022 PRIMARY Encounter for EDWARDO SUÁREZ Seymour 10:58 AM screening for HCS cardiovascular disorders Plan of Treatment: Future Appointments (+ 6 months) and Future Tests (+/- 45 days) The Plan of Treatment section includes future care activities for the patient from all [facility]. This section includes future appointments and future orders which are active, pending orscheduled.Future Appointments This section includes appointments that were scheduled to occur 6 months from the date of the Encounter, up to a maximum of 20 appointments. The data comes from all [facility]. Appointment Date/Time Appointment Type Appointment Facili ty Name April 12, 2022 08:30 AM AMBULATORY - MEDICINE [facility] May 07, 2022 09:00 AM AMBULATORY - MEDICINE [facility] May 15, 2022 10:30 AM AMBULATORY - MEDICINE [facility] May 15, 2022 10:40 AM AMBULATORY - MEDICINE [facility] May 15, 2022 11:30 AM AMBULATORY - MEDICINE [facility] May 15, 2022 01:00 PM AMBULATORY - MEDICINE [facility] May 15, 2022 01:45 PM AMBULATORY - NONE [facility] Jun 19, 2022 01:15 PM AMBULATORY - NONE [facility] Jun 24, 2022 05:53 PM AMBULATORY - MEDICINE [facility] Jul 12, 2022 09:20 AM AMBULATORY - SURGERY [facility] Jul 19, 2022 08:00 AM AMBULATORY - MEDICINE [facility] Jul 19, 2022 09:00 AM AMBULATORY MEDICINE [facility] Active, Pending, and Scheduled Orders This section includes a listing of several types of active, pending, and scheduled orders, including clinic medications orders, diagnostic test orders, procedure orders and consult orders; where the start date of the order is 45 days before the date of the Encounter or 45 days after the date of the Encounter. The data comes from all [facility]. Test Date/Time Test Type Test Details Facility Name May 15, 2022 12:00 Laboratory - COVID-19 AND FLU/RSV DIAG [facility] AM Chemistry Order PANEL(CEPHEID) NASOPHARYNGEAL SWAB STAT [...] 22 [place] 2021 10:58 /min mm[Hg] lb IS [facility] Social History: Smoking Status (Most current) [...] Facility Mar 05, 2022 01:30 PM VA-TOBACCO QUIT 1 TO < 5 YRS [facility] Tobacco Use History This section includes a history of the smoking, or tobacco- related health factors, that were collected on or before the date of the Encounter. The data comes from the MD facility where the Encounter took place. Date/Time Smoking Status/Tobacco Use Comment Facil ity Mar 05, 2022 01:30 PM VA-TOBACCO QUIT 1 TO < 5 YRS [facility] Jun 01, 2021 02:00 PM [facility] Dec 31, 2019 10:54 AM VA-TOBACCO FORMER USER [facility] Dec 31, 2019 10:54 AM [facility] < [facility] March 23, 2019 09:53 AM VA-TOBACCO FORMER USER [facility] March 23, 2019 09:53 AM VA-TOBACCO QUIT < 1 YEAR [facility] Jun 10, 2018 10:00 AM CURRENT TOBACCO USER [place] [facility] May 10, 2018 07:27 PM [place] [facility] [facility] [place] [facility] May 10, 2018 07:27 PM [place] [facility] Aug 29, 2017 09:55 AM FORMER TOBACCO USE <1Y [place] [facility] May 26, 2017 10:51 PM [facility] [place] [facility] May 26, 2017 10:51 PM [place] [facility] May 03, 2017 09:34 PM [place] [facility] May 03, 2017 09:34 PM [place] [facility] Sep 18, 2016 01:36 PM FORMER TOBACCO USE <1Y [place] [facility] Aug 10, 2016 03:54 PM INPT TOBACCO USE - PT REFUSED [facility] Aug 01, 2016 06:48 PM [place] [facility] Aug 01, 2016 06:48 PM [place]AC[place] [facility] Feb 08, 2015 09:57 AM [facility] Nov 29, 2013 10:37 AM CURRENT TOBACCO USER [facility] Nov 26, 2013 11:09 AM PATIENT IS TOBACCO USER ANAID GARCIA [facility] Nov 27, 2012 12:12 PM CURRENT TOBACCO USER [facility] Dec 27, 2011 09:44 AM CURRENT TOBACCO USER [facility] Jan 22, 2011 02:38 PM CURRENT TOBACCO USER [facility] Mar 13, 2010 12:48 PM CURRENT TOBACCO USER [facility] Advance Directives: All historical and current Section Date Range: From patient's date of to the date document was created. This section includes ALL of a patient's completed or amended MD Advance and Rescinded Directives. The entries below indicate that a directive exists for the patient, but an actual copy is not included with this document. The data comes from all [facility]. Date Advance Directives Provider Source Feb 25, 2018 ADVANCE DIRECTIVE AURORA MORALES [facility] Feb 24, 2018 ADVANCE DIRECTIVE DISCUSSION AURORA MORALES [facility] May 26, 2017 CLINICAL WARNING MAGO CONTRERAS [facility] May 03, 2017 CLINICAL WARNING SARIAH ENGLE [facility] Aug 10, 2016 CLINICAL WARNING ISABEL BARCENAS [facility] Aug 02, 2016 CLINICAL WARNING NORAHAURORA L [facility] Pathology Reports: +/- 30 days of [...] the Encounter. The data comes from all MD treatment facilities. Date/Time Pathology Report Provider Source May 08, 2022 06:46 PM LR SURGICAL PATHOLOGY REPORT: SARAH MEDEL [facility] LOCAL TITLE: LR SURGICAL PATHOLOGY REPORT STANDARD TITLE: PATHOLOGY REPORT DATE OF NOTE: MAY 08, 2022@18:46:34 ENTRY DATE: MAY 08, 2022@18:46:34 AUTHOR: SARAH MEDEL EXP COSIGNER: URGENCY: STATUS: COMPLETED $APHDR Reporting Lab: [facility] [CLIA# [id number]] [place] [address] - - - - - - - [...] Performing Laboratory: Surgical Pathology Report Performed By: [facility] [CLIA# [id number]] [place] [address] $FTR - - - - - - - - - - - - - - - - - - - - - - - - - - - - - - - - - - - - - - - - (End of report) SARAH MEDEL MD [facility] Date May 08, 2022 - - - - - - - - - - - - - - - - - - - - - - - - - - - - - - - - - - - - - - - - REGI MANTILLA STANDARD FORM 515 ID:[id number] SEX:M :1950 AGE: 72 LOC: 1153 PCP: Preet Anderson MD /mikal/ SARAH MEDEL MD STAFF PATHOLOGIST, PATHOLOGY & LABORATORY MED SV C Signed: 05/08/2022 18:46
--- OUTSIDE RECORDS SUMMARY | 2022-06-25 19:36 | XMS_ITS | Encounter Summary ---
:1950 Author Organization [facility] Address [address] [place] [address] Support Name Relationship Address Phone MADELIN MANTILLA Unavailable [address] [phone] [place] [address] MADELIN MANTILLA Unavailable [address] [phone] [place] [address] DHAVAL MANTILLA Unavailable [address] [place] [address] Insurance Providers: All historical and current Section [...] MEDICARE MEDICARE PART Jul 18, PART B [id number] 800 ANNALEE BUSTILLO (WNR) (M) B 2014 24A [phone] ,REGI MEDICARE MEDICARE PART Apr 17, PART A [id number] 800 ANNALEE BUSTILLO (WNR) (M) A 2012A [phone] ,REGI Selected Encounter This section includes the information on record at [place] for the Encounter. Date/Time Encounter Type Encounter Description Reason Provider Source March 26, 2022 03:15 Outpatient Encounter ADMIN PAT ACTIVANGELINA PM (MASNONCT) IHE Encounter Template Text not used by [place] Plan of Treatment: Future Appointments (+ 6 [...] 20 appointments. The data comes from all [place] treatment facilities. Appointment Date/Time Appointment Type Appointment Facili ty Name April 10, 2022 11:00 AM AMBULATORY - MEDICINE [facility] April 10, 2022 11:30 AM AMBULATORY - MEDICINE [facility] April 12, 2022 08:30 AM AMBULATORY - MEDICINE [facility] May 07, 2022 09:00 AM AMBULATORY - MEDICINE [facility] May 15, 2022 10:30 AM AMBULATORY - MEDICINE [facility] May 15, 2022 10:40 AM AMBULATORY - MEDICINE [facility] May 15, 2022 11:30 AM AMBULATORY - MEDICINE [facility] May 15, 2022 01:00 PM AMBULATORY - MEDICINE [facility] May 15, 2022 01:45 PM AMBULATORY - NONE [facility] Jun 19, 2022 01:15 PM AMBULATORY - NONE [facility] Jun 24, 2022 05:53 PM AMBULATORY - MEDICINE [facility] Jul 12, 2022 09:20 AM AMBULATORY - SURGERY [facility] Jul 19, 2022 08:00 AM AMBULATORY - MEDICINE [facility] Jul 19, 2022 09:00 AM AMBULATORY - MEDICINE [facility] Lab Results: +/- 30 days of the encounter This section includes the Chemistry and Hematology Lab Results on record with [place] for the patient. Radiology Reports and Pathology Reports are provided separately, in subsequent sections.Lab Results This section contains the Chemistry/Hematology Results that were resulted 30 days before or 30 daysafter the date of the Encounter. Date/Time Source Result Type Result - Unit Interpretation Reference Range Comment Mar 05, 2022 11:47 AM [facility] HEMOGLOBIN A1C Specim en Type: BLOOD No comment enter ed. Ordering Provid er: MARYELLEN LEON Report Released Date/Time: Jun 01, 2021 04:21 PM Reporting Lab: [facility] [address] [facility] [address] Performing Lab: [facility] [address] [facility] [address] HEMOGLOBIN A1C 5.6 4.0-6.0 Mar 05, 2022 11:47 [facility] LIPID PANEL,NON-FASTING S pecimen Type: PLASMA AM No comment enter ed. Ordering Provid er: MARYELLEN LEON Report Released Date/Time: Jun 01, 2021 04:21 PM Reporting Lab: [facility] [address] [facility] [address] Performing Lab: [facility] [address] [facility] [address] CHOLESTEROL 188 <199 .HDL 83 >40 LDL CALCULATION 78 <99 VLDL CALCULATION 27 <29 NON HDL CHOLESTEROL 105 <129 TRIG(NON FASTING) 133 <149 Mar 05, 2022 11:47 [facility] BASIC METABOLIC Specimen Type: PLASMA AM PANEL+MG No comment enter ed. Ordering Provid er: MARYELLEN LEON Report Released Date/Time: Jun 01, 2021 04:21 PM Reporting Lab: [facility] [address] Performing Lab: [facility] [address] CREATININE 1.0 0.7-1.2 UREA NITROGEN 21 8-26 GLUCOSE 112 H 74-100 SODIUM 139 136-145 POTASSIUM 4.9 3.5-5.1 CHLORIDE 103 98-107 CO2 25 22-29 CALCIUM 9.6 8.4-10.2 MAGNESIUM 1.6 1.6-2.6 ANION GAP 11 5-15 CREAT EGFR(CKD-EPI) 79 >60 Mar 05, 2022 11:47 AM [facility] AST/SGOT Specim en Type: PLASMA No comment enter ed. Ordering Provid er: MARYELLEN LEON Report Released Date/Time: Mar 05, 2022 01:38 PM Reporting Lab: [facility] [address] Performing Lab: [facility] [address] AST/SGOT 21 <34 Mar 05, 2022 11:47 AM [facility] ALT/SGPT Specim en Type: PLASMA No comment enter ed. Ordering Provid er: MARYELLEN LEON Report Released Date/Time: Mar 05, 2022 01:38 PM Reporting Lab: [facility] [address] Performing Lab: [facility] [address] ALT/SGPT 15 <55 Social History: Smoking Status (Most current) and Tobacco Use (All prior to encounter date) This section includes the most current, and the historical, smoking and tobacco-related health factors from the [facility] where the Encounter took place.Current Smoking Status This section includes the most current smoking, or tobacco-related health factor, from the [place] facility where the Encounter took place. Date/Time Current Smoking Status Comment Facility Mar 05, 2022 01:30 PM VA-TOBACCO FORMER USER [place] [facility] Tobacco Use History This section includes a history of the smoking, or tobacco- related health factors, that were collected on or before the date of the Encounter. The data comes from the [place] facility where the Encounter took place. Date/Time Smoking Status/Tobacco Use Comment Facil ity Mar 05, 2022 01:30 PM VA-TOBACCO QUIT 1 TO < 5 YRS [facility] Jun 01, 2021 02:00 PM VA-TO[facility]ACCO [facility] Dec 31, 2019 10:54 AM VA-TOBACCO FORMER USER [facility] Dec 31, 2019 10:54 AM VA-TOBACCO QUIT < 1 YEAR M [facility] March 23, 2019 09:53 AM VA-TOBACCO FORMER USER [facility] March 23, 2019 09:53 AM VA-TOBACCO QUIT < 1 YEAR M [facility] Jun 10, 2018 10:00 AM CURRENT TOBACCO USER [facility] May 10, 2018 07:27 PM [place] [facility] May 10, 2018 07:27 PM IN[place]BACCO US[place] [facility] Aug 29, 2017 09:55 AM FORMER TOBACCO USE <1Y [facility] May 26, 2017 10:51 PM [place] [facility] May 26, 2017 10:51 PM INPT TOBACCO USER [place] [facility] May 03, 2017 09:34 PM [place] [facility] May 03, 2017 09:34 PM INPT TOBACCO US[facility] Sep 18, 2016 01:36 PM FORMER TOBACCO USE <1Y [facility] Aug 10, 2016 03:54 PM INPT TOBACCO USE - PT REFUSED [facility] Aug 01, 2016 06:48 PM [place] [facility] Aug 01, 2016 06:48 PM INPT TOBACCO USER [place] [facility] Feb 08, 2015 09:57 AM CURRENT [facility]ACCO [facility] Nov 29, 2013 10:37 AM CURRENT TOBACCO USER [facility] Nov 26, 2013 11:09 AM PATIENT [place]ER [place] [facility] Nov 27, 2012 12:12 PM CURRENT TOBACCO USER [facility] Dec 27, 2011 09:44 AM CURRENT TOBACCO USER [facility] Jan 22, 2011 02:38 PM CURRENT TOBACCO USER [facility] Mar 13, 2010 12:48 PM CURRENT TOBACCO USER [facility] Advance Directives: All historical and current Section Date Range: From patient's date of to the date document was created. This section includes ALL of a patient's completed or amended [place] Advance and Rescinded Directives. The entries below indicate that a directive exists for the patient, but an actual copy is not included with this document. The data comes from all [facility]. Date Advance Directives Provider Source Feb 25, 2018 ADVANCE DIRECTIVE AURORA MORALES [facility] Feb 24, 2018 ADVANCE DIRECTIVE DISCUSSION AURORA MORALES [facility] May 26, 2017 CLINICAL WARNING MAGO CONTRERAS [facility] May 03, 2017 CLINICAL WARNING SARIAH ENGLE [facility] Aug 10, 2016 CLINICAL WARNING ISABEL BARCENAS [facility] Aug 02, 2016 CLINICAL WARNING AURORA ALMAZAN [facility] Encounter Notes: All associated encounter notes This section contains the clinical notes associated to the Encounter. Date/Time Encounter Note(s) Provider Source March 18, 2022 03:20 PM NONVA NOTE: MILENA DERAS IS [facility] LOCAL TITLE: RADIOLOGY NONVA NOTE STANDARD TITLE: NONVA NOTE DATE OF NOTE: MARCH 18, 2022@15:20 ENTRY DATE: MARCH 26, 2022@15:21:21 AUTHOR: MILENA DERAS EXP COSIGNER: URGENCY: STATUS: COMPLETED This note contains attached RADIOLOGY scanned do cument(s) received from an outside facility. [facility] Display to review the documen t(s). /mikal/ MILENA DERAS On Site Coordinator Signed: 03/26/2022 15:21 March 18, 2022 03:16 PM NONVA NOTE: MILENA DERAS IS [facility] LOCAL TITLE: LABORATORY NONVA NOTE STANDARD TITLE: NONVA NOTE DATE OF NOTE: MARCH 18, 2022@15:16 ENTRY DATE: MARCH 26, 2022@15:17:02 AUTHOR: MILENA DERAS EXP COSIGNER: URGENCY: STATUS: COMPLETED This note contains attached LABORATORY scanned d ocument(s) received from an outside facility. [facility] to review the documen t(s). /mikal/ MILENA DERAS On Site Coordinator Signed: 03/26/2022 15:17
--- OUTSIDE RECORDS SUMMARY | 2022-06-25 19:36 | XMS_ITS | Encounter Summary ---
:1950 Author Organization [facility] Address [address] [place] [address] Support Name Relationship Address Phone MADELIN MANTILLA Unavailable [address] [phone] [place] [address] MADELIN MANTILLA Unavailable [address] [phone] [place] [address] DHAVAL MANTILLA Unavailable [address] [place] [address] Insurance Providers: All historical and current Section [...] MEDICARE MEDICARE PART Jul 18, PART B [id number] ANNALEE BUSTILLO (WNR) (M) B 2014A [phone] ,REGI MEDICARE MEDICARE PART Apr 17, PART A [id number] ANNALEE BUSTILLO (WNR) (M) A 2012A [phone] ,REGI Selected Encounter This section includes the information on record at [place] for the Encounter. Date/Time Encounter Type Encounter Reason Provider Source Description Mar 05, 2022 OFFICE O/P EST PRIMARY ICD-10-CM I47.1 MARYELLEN LEON 01:30 PM LOW 20-29 MIN CARE/MEDICINE Supraventricular tachycardia with Provider Comments: Multifocal atrial tachycardia (SNOMED CT [id number]) IHE Encounter Template Text not used by [place] Assessments - Encounter Diagnoses This section includes the primary and secondary diagnoses documented for the Encounter. 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 This section includes future appointments and future orders which are active, pending orscheduled.Future Appointments This section includes appointments that were scheduled to occur 6 months from the date of the Encounter, up to a maximum of 20 appointments. The data comes from all [place] treatment facilities. Appointment Date/Time Appointment Type Appointment Facili ty Name Mar 12, 2022 11:00 AM AMBULATORY - MEDICINE [facility] March 19, 2022 06:03 PM AMBULATORY - NONE [facility] April 10, 2022 11:00 AM AMBULATORY - MEDICINE [facility] April 10, 2022 11:30 AM AMBULATORY - MEDICINE [facility] April 12, 2022 08:30 AM AMBULATORY - MEDICINE [facility] May 07, 2022 09:00 AM AMBULATORY - MEDICINE [facility] May 15, 2022 10:30 AM AMBULATORY - MEDICINE [facility] May 15, 2022 10:40 AM AMBULATORY - MEDICINE [facility] May 15, 2022 11:30 AM AMBULATORY - MEDICINE [facility] May 15, 2022 01:00 PM AMBULATORY - MEDICINE [facility] May 15, 2022 01:45 PM AMBULATORY - NONE [facility] Jun 19, 2022 01:15 PM AMBULATORY - NONE [facility] Jun 24, 2022 05:53 PM AMBULATORY - MEDICINE [facility] Jul 12, 2022 09:20 AM AMBULATORY - SURGERY [facility] Jul 19, 2022 08:00 AM AMBULATORY - MEDICINE [facility] Jul 19, 2022 09:00 AM AMBULATORY - MEDICINE [facility] Lab Results: +/- 30 days [...] Range Comment Mar 05, 2022 11:47 AM [facility] HEMOGLOBIN A1C Specim en Type: BLOOD No comment enter ed. Ordering Provid er: MARYELLEN LEON Report Released Date/Time: Jun 01, 2021 04:21 PM Reporting Lab: [facility] [address] [facility] [address] Performing Lab: [facility] [id number] HEMOGLOBIN A1C 5.6 4.0-6.0 Mar 05, 2022 11:47 [facility] LIPID PANEL,NON-FASTING S pecimen Type: PLASMA AM No comment enter ed. Ordering Provid er: MARYELLEN LEON Report Released Date/Time: Jun 01, 2021 04:21 PM Reporting Lab: [facility] [address] [facility] [address] Performing Lab: [facility] [address] CHOLESTEROL 188 <199 .HDL 83 >40 LDL CALCULATION 78 <99 VLDL CALCULATION 27 <29 NON HDL CHOLESTEROL 105 <129 TRIG(NON FASTING) 133 <149 Mar 05, 2022 11:47 [facility] BASIC METABOLIC Specimen Type: PLASMA AM PANEL+MG No comment enter ed. Ordering Provid er: MARYELLEN LEON Report Released Date/Time: Jun 01, 2021 04:21 PM Reporting Lab: [facility] [address] [facility] [address] Performing Lab: [facility] [address] [facility] [address] CREATININE 1.0 0.7-1.2 UREA NITROGEN 21 8-26 GLUCOSE 112 H 74-100 SODIUM 139 136-145 POTASSIUM 4.9 3.5-5.1 CHLORIDE 103 98-107 CO2 25 22-29 CALCIUM 9.6 8.4-10.2 MAGNESIUM 1.6 1.6-2.6 ANION GAP 11 5-15 CREAT EGFR(CKD-EPI) 79 >60 Mar 05, 2022 11:47 AM [facility] AST/SGOT Specim en Type: PLASMA No comment enter ed. Ordering Provid er: MARYELLEN LEON Report Released Date/Time: Mar 05, 2022 01:38 PM Reporting Lab: [facility] [address] [facility] [address] Performing Lab: [facility] ONE [facility] [place] [address] AST/SGOT 21 <34 Mar 05, 2022 11:47 AM [facility] ALT/SGPT Specim en Type: PLASMA No comment enter ed. Ordering Provid er: MARYELLEN LEON Report Released Date/Time: Mar 05, 2022 01:38 PM Reporting Lab: [facility] [place] [address] Performing Lab: [facility] [address] ALT/SGPT 15 <55 Vital Signs: All taken on the encounter date This section contains inpatient and outpatient Vital Signs collected on the date of the Encounter. Date/Time Temperature Pulse Blood Respiratory SP02 Pain Height Weight Marcus dy Source Pressure Rate Mass Index Mar 05, 98.3 F 77 108/70 20 /min 95 % 2 62 in 124 lb 23 [place] 2021 12:54 /min mm[Hg] IS [facility] Immunizations: All administered on the encounter date This section contains immunizations associated to the Encounter. Immunization Series Date Issued Reaction Comments COVID-19 (ROLI), MRNA, LNP-S, 4 Mar 05, 2022 PFR; [id number]; 05/16/2022 PF, 30 MCG/0.3 ML DOSE, JJ-SUCROSE (AGES 12+ YEARS) Social History: Smoking Status (Most current) and Tobacco Use (All prior to encounter date) This section includes the most current, and the historical, smoking and tobacco-related health factors from the [place] facility where the Encounter took place.Current Smoking Status This section includes the most current smoking, or tobacco-related health factor, from the [place] facility where the Encounter took place. Date/Time Current Smoking Status Comment Facility Mar 05, 2022 01:30 PM VA-TOBACCO FORMER USER [facility] Tobacco Use History This section includes a history of the smoking, or tobacco- related health factors, that were collected on or before the date of the Encounter. The data comes from the [place] facility where the Encounter took place. Date/Time Smoking Status/Tobacco Use Comment Facil it Mar 05, 2022 01:30 PM VA-TOBACCO QUIT 1 TO < 5 YRS [facility] Jun 01, 2021 02:00 PM [facility]CO [facility] Dec 31, 2019 10:54 AM VA-TOBACCO FORMER USER [facility] Dec 31, 2019 10:54 AM VA-TOBACCO QUIT < 1 YEAR [facility] March 23, 2019 09:53 AM VA-TOBACCO FORMER USER [facility] March 23, 2019 09:53 AM VA-TOBACCO QUIT < 1 YEAR [facility] Jun 10, 2018 10:00 AM CURRENT TOBACCO USER [facility] May 10, 2018 07:27 PM INPT TOBACCO COUNSELING [place] [facility] May 10, 2018 07:27 PM INPT TOBACCO USER [place] [facility] Aug 29, 2017 09:55 AM FORMER TOBACCO USE <1Y [facility] May 26, 2017 10:51 PM INPT TOBACCO COUNSELING [place] [facility] May 26, 2017 10:51 PM INPT TOBACCO USER [place] [facility] May 03, 2017 09:34 PM INPT TOBACCO COUNSELING [place] [facility] May 03, 2017 09:34 PM INPT TOBACCO USER [place] [facility] Sep 18, 2016 01:36 PM FORMER TOBACCO USE <1Y [facility] Aug 10, 2016 03:54 PM INPT TOBACCO USE - PT REFUSED [facility] Aug 01, 2016 06:48 PM INPT TOBACCO COUNSELING [place] [facility] Aug 01, 2016 06:48 PM INPT TOBACCO USER [place] [facility] Feb 08, 2015 09:57 AM CURRENT TOBACCO USER [place] [facility] Nov 29, 2013 10:37 AM CURRENT TOBACCO USER [facility] Nov 26, 2013 11:09 AM PATIENT IS TOBACCO USER [place] [facility] Nov 27, 2012 12:12 PM CURRENT TOBACCO USER [place] [facility] Dec 27, 2011 09:44 AM CURRENT TOBACCO USER [place] [facility] Jan 22, 2011 02:38 PM CURRENT TOBACCO USER [facility] Mar 13, 2010 12:48 PM CURRENT TOBACCO USER [facility] Advance Directives: All historical and current Section Date Range: From patient's date of to the date document was created. This section includes ALL of a patient's completed or amended [place] Advance and Rescinded Directives. The entries below indicate that a directive exists for the patient, but an actual copy is not included with this document. The data comes from all [place] facilities. Date Advance Directives Provider Source Feb 25, 2018 ADVANCE DIRECTIVE AURORA MORALES [facility] Feb 24, 2018 ADVANCE DIRECTIVE DISCUSSION AURORA MORALES [facility] May 26, 2017 CLINICAL WARNING MAGO CONTRERAS [facility] May 03, 2017 CLINICAL WARNING SARIAH ENGLE [facility] Aug 10, 2016 CLINICAL WARNING ISABEL BARCENAS [facility] Aug 02, 2016 CLINICAL WARNING AURORA ALMAZAN [facility] Encounter Notes: All associated encounter notes This section contains the clinical notes associated to the Encounter. Date/Time Encounter Note(s) Provider Source Mar 05, 2022 02:35 LETTERS: MARYELLEN LEON [facility] PM LOCAL TITLE: FOLLOW UP RESULTS LETTER STANDARD TITLE: LETTERS DATE OF NOTE: MAR 05, 2022@14:35 ENTRY DATE: MAR 05, 2022@14:36 AUTHOR: MARYELLEN LEON EXP COSIGNER: URGENCY: STATUS: COMPLETED [facility] [address] [place] [address] Feb REGI MANTILLA [address] [facility] [address] Dear [place]: I am writing to inform you of the results of the tests you had done at the [facility]. The tests below were performed and are satisfactory unless otherwise noted. - Cholesterol Tests (HDL = good and LDL = ba d) CHOLESTEROL 188 (03/05/22) (prefer less than 20 0) HDL 83 (03/05/22) (prefer more than 39) LDL CALCULATION 78 (03/05/22) (prefer less than 100) TRIGLYCERIDE 133 (prefer less than 150) . - Complete Blood Count (red/white blood cell co unts and platelets) White count: WBC 10.65 (01/11/22) (normal is 4.0 -11.0) Hemoglobin: HGB 13.1 L (01/11/22) (normal Male i s 13.5-17.9; Female is 11.5-16) Hematocrit: HCT 38.7 L (01/11/22) (normal Male i s 41-54; Female is 34.5-48) Platelets: PLT 235 (01/11/22) (normal is 150-400 ) . - Electrolytes including sodium and potassium SODIUM 139 (03/05/22) (normal is 136-145) POTASSIUM 4.9 (03/05/22) (normal is 3.5-5.1) CALCIUM 9.6 (03/05/22) (normal is 8.4-10.2) MAGNESIUM 1.6 (03/05/22) (normal is 1.6-2.6) . - Kidney function CREATININE 1.0 (03/05/22) (normal Male 0.7-1.2; normal Female is 0.5-1.0) UREA NITROGEN 21 (03/05/22) (normal Male is 8-2 6; normal Female is 7-20) . - Liver function Tests AST/SGOT 21 (03/05/22) (normal 5-34) ALT/SGPT 15 (03/05/22) (normal </= 55) ALK PHOSPHATASE 65 (01/11/22) (normal 40-150) . - Blood Sugar GLUCOSE 112 H (03/05/22) (normal is 70 - 106 if fasting) . - Hemoglobin A1C (normal 4.0-6.0) Collection DT Spec HGBA1C 03/05/2022 11:47 BLOOD 5.6 06/01/2021 08:49 BLOOD 5.4 07/28/2020 09:40 BLOOD 5.5 Comments: See you back in 6 months for follow up . If you have any further questions or problems, rachel mckay contact our nursing staff or me at the following number: . Sincerely, MARYELLEN LEON MD Staff Physician Mar 05, 2022 02:10 NURSING IMMUNIZATION NOTE: ANDREW BARNES [place] [facility] PM LOCAL TITLE: VAAES NSG COVID-[address] [facility] TITLE: NURSING IMMUNIZATION NOTE DATE OF NOTE: MAR 05, 2022@14:10 ENTRY DATE: MAR 05, 2022@14:10:16 AUTHOR: ANDREW BARNES EXP COSIGNER: URGENCY: STATUS: COMPLETED The patient was given the VIS for this vaccine w [facility] lists the benefits and side effects of [...] the vaccine. Booster Dose: The patient received [employer] COVID-19 Vaccine 0. 3 ml IM. Series: Series 4 MVX (Manuf); Lot#; Exp Date: PFR; [id number]; 05/16 Administration Anatomic site: Right Deltoid Vaccine administered without complications. The patient was advised to remain in the facility for 15 minute s post vaccination. The patient was given a completed COVID-19 vacc ination record card, a copy of the [place] Side Effects and Adverse Event s Reporting Fact Sheet and instructed on how to report any adver se reactions. /mikal/ ANDREW BARNES TREE THINNER TREE THINNER Signed: 03/05/2022 14:10 Mar 05, 2022 01:20 INTERNAL MEDICINE NOTE: MARYELLEN LEON [facility] LOCAL TITLE: MEDICINE CLINIC NOTE STANDARD TITLE: INTERNAL MEDICINE NOTE DATE OF NOTE: MAR 05, 2022@13:20 ENTRY DATE: MAR 05, 2022@13:20:34 AUTHOR: MARYELLEN LEON EXP COSIGNER: URGENCY: STATUS: COMPLETED MEDICINE CLINIC NOTE Has ADDENDA Nurses notes reviewed and agree. This note is an edited version based on my previ ous clinic visit notes and/or based on review of CPRS recor ds. Chief complaint: OSH hosp d/c f/u. Last seen in 05/2021 HPI: The patient is a 71 yea r old MALE CAD s/p stenting, chronic R knee pain s/p TKA, hyperlipidemia, ETOH ab use and seropositive rheumatoid arthritis presenting here for f/u - doing stable since discharge - recently hospitalized at OSH 02/17 to 02/21/22, dx Multifocal atrial tachycardia (HC) (Prim [place] Dx) and gastritis. HR 135. Seen by cardiology, EKG reviewed and per cardiology cons istent with multifocal atrial tachycardia and not atrial [...] discharge; patient elected to follow-up at the [facility] since he is known to cardiology there. Also presented with V. Stool g uaiac was positive in ED With concern for GI bleeding patient underwent e ndoscopy on 02/19/2022 which showed gastritis. Recommend PPI twice daily for 2 months and then daily indefinitely. Avoid NSAIDs and alcohol. Recommen d outpatient colonoscopy with [facility]. Patient did not experi ence alcohol withdrawal this admission per OSH note. - Asking for a walker from [place] - He did not get Dilitiazem CD 120mg as mentione d on OSH discharge. - f/u Rheumatology on sulfasalazine, Adalimumab injection and prednisone 10mg for diffuse joint pain felt to be seropositive r heumatoid arthritis. - POS alcohol screen: has cut down now drinking etoh 2 beers per day with a couple shots of whisky. Used to drink 1 pint of beer per day --> postive EOTH screening.--> advised ETOH cessation or reductio n, pt not interested in referral. - still smoking marijuana I use marijuana more than anything else. No tobacco use Review of Systems: No sore throat. No dysuria/hematuria. No abdominal pain/N/V/D. FH: - cancer: none, no colon cancer. 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 Currently not [...] to LCx and OM-1 on 08/02/16 - readmitted for NSTEMI post stenting , felt to be subtotal occlusion of superior branch of the OM1 similar to [facility] on 08/02/16. The risk of intervention on this branch outweighed benefit s o medical management was elected. - Acute non-ST segment elevation myocardial infa rction, hospitalized 04/2018 - ECHO 02/18/2022 OSH Technically limited exam. [...] based on radionucleotide is 65%. 16. CKD 17. SOB - PFT 09/2018 FVC L 3.08 3.71 120.4 FEV1 L 2.24 2.51 112.1 PF L/SEC 5.831 5.990 102.7 2.86 LIB35-82 L/SEC 2.660 1.580 59.4 0.99 FEV1/FVC % [...] at 67 in 01/2020 22. Multifocal atrial tachycardia, no AFIB - hospitalized in 02/2022. Se en card. EKG reviewed and per cardiology consistent with multifocal atrial tachycardia and not atria l fibrillation. - had stress test and cath in [...] TAKE ONE TABLET BY MOUTH ACTIVE EVERY DAY 8) FLUTICASONE PROP 50MCG 120D NASAL INHL SPRAY 1 SPRAY ACTIVE IN EACH NOSTRIL TWICE A DAY NEEDED FOR RUNNY NOSE USE REGULARLY FOR RELIEF OF ALLERGIES/CONGESTION 9) FOLIC ACID 1MG TAB TAKE ONE TABLET BY MOUTH E VERY DAY ACTIVE 10) ISOSORBIDE MONONITRATE 60MG SA TAB TAKE ONE- HALF ACTIVE TABLET BY MOUTH EVERY DAY 11) LORATADINE 10MG TAB TAKE ONE TABLET BY MOUTH EVERY ACTIVE DAY FOR ALLERGY SYMPTOMS 12) METOPROLOL TARTRATE 50MG TAB TAKE ONE TABLET BY MOUTH ACTIVE TWICE A DAY 13) PANTOPRAZOLE NA 40MG EC TAB TAKE [...] TABLET BY MOUTH EVERY DISCONTINUED DAY 4) FOLIC ACID 1MG TAB TAKE ONE TABLET BY MOUTH E VERY DAY DISCONTINUED 5) ISOSORBIDE MONONITRATE 60MG SA TAB TAKE ONE T ABLET BY DISCONTINUED MOUTH EVERY DAY FOR CHEST PAIN 6) METOPROLOL TARTRATE 50MG TAB TAKE ONE-HALF TA BLET BY DISCONTINUED MOUTH TWICE A DAY FOR HEART 7) PREDNISONE 10MG TAB TAKE ONE TABLET BY MOUTH EVERY DISCONTINUED DAY 8) SULFASALAZINE 500MG TAB TAKE TWO TABLETS BY M OUTH DISCONTINUED TWICE A DAY 23 Total Medications OTC, Herbals, and Private MD medications or akash tional medication information: Physical Exams: pt wears face mask provider wears surgical mask and faceshield. Anne Marie ves are used when examining patient Vitals: BP: 108/70 (03/05/2022 12:54) P: 77 (03/05/2022 12:54) R: 20 (03/05/2022 12:54) T: 98.3 F [36.8 C] (03/05/2022 12:54) WT: 124 lb [56.25 kg] (03/05/2022 12:54) Pain: 2 (03/05/2022 12:54) O2 Sat: Gen: AAO, nad, pt appears at his stated age, int eractive and cooperative HEENT: PER, EOMI, no conjunctivitis or scleral i cterus Neck: no JVD Lungs: cta b, no wheezes or crackles Heart: rrr, nl s1s2, no m/r/g Abd: s, nt, [...] LDL CALCULATION 78 (03/05/22) LDL Measured: TRIGLYCERIDE____ . - Liver function Tests AST/SGOT 21 (03/05/22) (normal 5-34) ALT/SGPT 15 (03/05/22) (normal </= 55) ALK PHOSPHATASE 65 (01/11/22) (normal 40-150) No data available for: GAMMA GTP (normal 15-85) BILIRUBIN, TOTAL____ (normal 0.3-1.2) PSA - NONE FOUND TSH 1.31 (06/01/21) URIC ACID____ Urine Microalbumin: ALB/CREAT RATIO____ Other Lab Data: EKG: Imaging: Assessment/Plan: 1. CAD s/p stenting 08/02/16: on ACEI, statin, metoprolol 50mg bid, ISMN SA 30mg and ASA 81mg. - contninue current med 2. Hyperlipidemia: goal LDL <70. Chol ok 03/05/22 - continue Atorvastatin 80mg (recently increased at OSH) 3. MAT: per OSH card, not afib with RVR. BP good control and actually on the soft side, has not taken Dilitizem since dischar ge, will not start - continue current meds metoprolol 50mg bid - will order extended frozen food selector x 7 days, and card consult for f/u 4. GERD/Gastritis: - continue pantoprazole 40mg BID (for another we ek--total of 2 weeks per patient), then 40mg qday indefinitely 5. CKD: cr baseline. [...] since discharge but still above recommended limits. Re check LFTs nl 03/05/22 - advised ETOH cessation or at least [...] OSH hospitalization 02/2022 for chest pain and vomiti ng. Stool guaic POS. With concern for GI bleeding patient underwent endosc opy on 02/19/2022 which showed gastritis. Recommend PPI twice daily for 2 months and then daily indefinitely. Avoid NSAIDs and alcohol. Recommen d outpatient colonoscopy.--> will refer to GI. - vaccines: Td 03/13/10, flu 07/28/2020, pneumo-va c 01/11/14, PCV13 11/03/15, H1N1 refuses, shingles vacci ne 11/27/12, completed shingrix 2 dose series 03/23/19, COVID-19 (ROLI), MRNA, LNP-S, P* 3rd - PSA ok 01/11/14 - TSH ok [...] () Pt has never used tobacco products. RTC 6 months with no lab. Has frequent lab thru rheum. MEDICATION RECONCILIATION Outpatient At this visit I have reviewed the medication li st, and discussed relevant medications with the patient/surrogate . An updated patient medication list was given to the participant(s). (x ) No Change ( ) Change/New: I have noted this on the [facility]'s copy of the medication list. Education on [...] medication and I noted new medication on pa rticipant's copy of the medication list. ( ) Verbalizes understanding of instructions. ( ) Needs additional reinforcement of instructi ons(sent to Pharmacist). ( )Patient unable to participate in learning/in struction. More than 50% of this 25 min visit spent in coun selling and coordinating care regarding reviewing labs, me dications, discussing medical issues mentioned above and answering patient's questions. (x) Patient/Caregiver indicates readiness to dirk rn, verbalizes understanding, agreement and satisfaction with the treatment pl an. (x) [place]/Caregiver indicates readiness to dirk rn and has been instructed on action, dose, frequency, and side effects of the medication. [place]/Caregiver verbalizes understanding. Follow-up Pos Alcohol : Patient's AUDIT-C score was greater than or equ al to 5; brief alcohol intervention is indicated. Shared concern that the patient may be drinking at unhealthy levels known to increase his/her risk of alcohol related hea lth problems. Specifically the following were reviewed: High blood pressure, heart disease, liver disea se, seizures, injury, medication interactions, depression, anxiety, i nsomnia, bleeding from the stomach, stroke, dementia, cancers The patient was advised/informed to drink withi n safe limits, which are no more than 2 drinks per day on average and no mo re than 4 drinks on any one day AND no more than 14 drinks per week. Will d iscuss again at next visit. The patient declines referral for alcohol use a ssessment or treatment at this time. Plan: rescreen annually. /es/ MARYELLEN LEON MD Staff Physician Signed: 03/05/2022 14:35 03/20/2022 ADDENDUM STATUS: COMPLETED admitted 03/18/22 at [facility] for Vomitting , diarrhea felt to be 2/2 gastroenteritis, alcohol rel ated or other abd infection. Doing better with fluid resuscitation. Initially had sepsis like picture with elevated lactate, elevated WBC, hypotension,tachycardia and LYNNE 2/2 dehydration, V and diarrhea. Covid-19 neg. UA neg. renal U/S 03/18/2022: mildly atrophic right kidney , no hydronephrosis WBC 12.9, Hb 16.1, Plt 227, lactate 5.2 Na 134, k 3.7, cr 3.5,BUN 47 - AST 66, ALT 61 - CRP nl 0.9 - BAL neg --> sent to be scanned /mikal/ MARYELLEN LEON MD Staff Physician Signed: 03/20/2022 14:31 04/01/2022 ADDENDUM STATUS: COMPLETED per OSH discharge summary--> sent to be scanned POSITIVE Rotavirus. Dxed acute gastroenteritis Outside provider called patient on 03/27. PCR neg for Cdiff. /mikal/ MARYELLEN LEON MD Staff Physician Signed: 04/01/2022 12:58 Mar 05, 2022 12:56 INTERNAL MEDICINE OUTPATIENT NOTE: [facility]A [facility] LOCAL TITLE: MEDICINE CLINIC NURSING NOTE OM G STANDARD TITLE: INTERNAL MEDICINE OUTPATIENT NOT E DATE OF NOTE: MAR 05, 2022@12:56 ENTRY DATE: MAR 05, 2022@12:56:40 AUTHOR: KARAN CAIN EXP COSIGNER: URGENCY: STATUS: COMPLETED TYPE OF VISIT: Appointment Check In Type of appointment: In-person appointment REASON FOR VISIT: F/u hospitalization ALLERGIES: LISINOPRIL (Jun 01, 2021) VITAL SIGNS: Blood Pressure: 108/70 (03/05/2022 12:54) Pulse: 77 (03/05/2022 12:54) Respiration: 20 (03/05/2022 12:54) Temperature: 98.3 F [36.8 C] (03/05/2022 12:54) Weight: 124 lb [56.25 kg] (03/05/2022 12:54) Height: 62 in [157.5 cm] (03/05/2022 12:54) BMI: 22.7 O2 Sat: 95% (03/05/2022 12:54) Pain: 2 (03/05/2022 12:54) PAIN SCREEN: Patient is not having significant pain that the y wish to discuss with their provider today. Tobacco Use Screening: The patient is a former tobacco user. The patient quit one to less than 5 years ago. Depression Screening: Perform PHQ-2 A PHQ-2 screen was performed. The score was 0 w hich is a negative screen for depression. Over the past two weeks, how often have you bee n bothered by the following problems? 1. Little interest or pleasure in doing things Not at all 2. Feeling down, depressed, or hopeless Not at all Nursing Annual Screening: Fall History Screen During the past 12 months, have you had any fal ls? Patient does not report any falls in the past 1 2 months. MEDICATIONS: Patient is on one of the following medication c lasses: Antihypertensives, Antidepressants, Antipsychot ics, Diuretics, or Controlled substance medication used for pain. FALL RISK ADVICE: Fall Risk Advice provided. Handout entitled Fa ll Prevention At Home reviewed and given to patient and/or significan t other. Alcohol Use Screen Alcohol Screen: SCREEN FOR ALCOHOL (AUDIT-C) An alcohol screening test (AUDIT-C) was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
--- OUTSIDE RECORDS SUMMARY | 2022-06-25 19:36 | XMS_ITS | Encounter Summary ---
:1950 [address] Organization Department [facility] Address [address] [place] [address] Support Name Relationship Address Phone MADELIN MANTILLA Unavailable [address] [phone] [place] [address] MADELIN MANTILLA Unavailable [address] [phone] [place] [address] DHAVAL MANTILLA Unavailable [address] [place] [address] Insurance Providers: All historical and current Section [...] MEDICARE MEDICARE PART Jul 18, PART B [id number] ANNALEE BRYANIENT (WNR) (M) B 2014A [phone] ,REGI MEDICARE MEDICARE PART Apr 17, PART A [id number] ANNALEE Cardenas ATIENT (WNR) (M) A [phone] ,REGI Selected Encounter This section includes the information on record at [facility] for the Encounter. Date/Time Encounter Type Encounter Reason Provider Source Description April 10, 2022 OFFICE CARDIOLOGY ICD-10-CM I47.1 JESSICA FAITH 11:30 AM CONSULTATION Supraventricular E L tachycardia with Provider Comments: Multifocal atrial tachycardia ([facility] [id number]) IHE Encounter Template Text not used by [facility] Assessments - Encounter Diagnoses This section includes the primary and secondary diagnoses documented for the Encounter. Date/Time Primary/Secondary Diagnosis Name Provider Source Diagnosis April 11, 2022 PRIMARY Supraventricular ROSY FAITH [facility] 12:00 PM tachycardia [facility] April 11, 2022 SECONDARY Alcohol abuse with ROSY FAITH [facility] 12:00 PM unspecified [facility] alcohol-induced disorder April 11, 2022 SECONDARY Athscl heart disease ROSY FAITH [place] 12:00 PM of [place] coronary [facility] artery w/o ang pctrs April 11, 2022 SECONDARY Cannabis use, MARCELLROSY HOLGUIN [facility] 12:00 PM unspecified, [facility] uncomplicated April 11, 2022 SECONDARY Gastro-esophageal ROSY FAITH [facility] 12:00 PM reflux disease [facility] without esophagitis April 11, 2022 SECONDARY alf (current) ROSY FAITH [place] [facility] 12:00 PM use of anticoagulants [facility] April 11, 2022 SECONDARY Paroxysmal atrial ROSY FAITH [facility] 12:00 PM fibrillation [facility] Plan of Treatment: Future Appointments (+ 6 months) and Future Tests (+/- 45 days) The Plan of Treatment section includes future care activities for the patient from all [facility]. This section includes future appointments and future orders which are active, pending orscheduled.Future Appointments This section includes appointments that were scheduled to occur 6 months from the date of the Encounter, up to a maximum of 20 appointments. The data comes from all [facility] treatment facilities. Appointment Date/Time Appointment Type Appointment [...] PM AMBULATORY - NONE [facility] Jun 19, 2022 01:15 PM AMBULATORY - NONE [facility] Jun 24, 2022 05:53 PM AMBULATORY - MEDICINE [facility] Jul 12, 2022 09:20 AM AMBULATORY - SURGERY [facility] S Jul 19, 2022 08:00 AM AMBULATORY - MEDICINE [facility] Jul 19, 2022 09:00 AM AMBULATORY - MEDICINE [facility] Active, Pending, and Scheduled Orders This section includes a listing of several types of active, pending, and scheduled orders, including clinic medications orders, diagnostic test orders, procedure orders and consult orders; where the start date of the order is 45 days before the date of the Encounter or 45 days after the date of the Encounter. The data comes from all [facility] treatment facilities. Test Date/Time Test Type Test Details Facility Name May 15, 2022 12:00 Laboratory - COVID-19 AND FLU/RSV DIAG [facility] AM Chemistry Order PANEL(CEPHEID) NASOPHARYNGEAL SWAB [...] [place] 2021 10:58 /min mm[Hg] lb [facility] Social History: Smoking Status (Most current) and Tobacco Use (All prior to encounter date) This section includes the most current, and the historical, smoking and tobacco-related health factors from the [facility] facility where the Encounter took place.Current Smoking Status This section includes the most current smoking, or tobacco-related health factor, from the [facility] facility where the Encounter took place. Date/Time Current Smoking Status Comment Facility Mar 05, 2022 01:30 PM VA-TOBACCO FORMER USER [facility] Tobacco Use History This section includes a history of the smoking, or tobacco- related health factors, that were collected on or before the date of the Encounter. The data comes from the [facility] facility where the Encounter took place. Date/Time Smoking Status/Tobacco Use Comment [facility] Mar 05, 2022 01:30 PM VA-TOBACCO QUIT 1 TO < 5 YRS [facility] Jun 01, 2021 02:00 PM VA-TOBACCO NEVER USED [facility] Dec 31, 2019 10:54 AM VA-TOBACCO FORMER USER [facility] Dec 31, 2019 10:54 AM [facility]-TOBACCO QUIT < 1 YEAR [facility] March 23, 2019 09:53 AM VA-TOBACCO FORMER USER [facility] March 23, 2019 09:53 AM [facility]-TOBACCO QUIT < 1 YEAR M [facility] Jun 10, 2018 10:00 AM CURRENT TOBACCO USER [place] [facility] May 10, 2018 07:27 PM INPT TOBACCO COUNSELING [facility] May 10, 2018 07:27 PM INPT TOBACCO USER CAROLYNO GERDA [facility] Aug 29, 2017 09:55 AM FORMER TOBACCO USE <1Y [facility] May 26, 2017 10:51 PM INPT TOBACCO COUNSELING ME [place]ARTIREAPOLIS [facility] May 26, 2017 10:51 PM INPT TOBACCO USER LAWSONAPO LIS [facility] May 03, 2017 09:34 PM INPT TOBACCO COUNSELING ME [place] [facility] May 03, 2017 09:34 PM INPT TOBACCO USER CAROLYNO GERDA [facility] Sep 18, 2016 01:36 PM FORMER TOBACCO USE <1Y [facility] Aug 10, 2016 03:54 PM INPT TOBACCO USE - PT REFUSED [facility] Aug 01, 2016 06:48 PM INPT TOBACCO [facility]SEL[facility] Aug 01, 2016 06:48 PM INPT TOBACCO USER CAROLYNO [facility] Feb 08, 2015 09:57 AM CURRENT TOBACCO USER LAWSON JUAREZS [facility] Nov 29, 2013 10:37 AM CURRENT TOBACCO USER [facility] Nov 26, 2013 11:09 AM PATIENT IS TOBACCO USER ANAID EPPSPOLIS [facility] Nov 27, 2012 12:12 PM CURRENT TOBACCO USER LAWSON HUMPHRIESLIS [facility] Dec 27, 2011 09:44 AM CURRENT TOBACCO USER LAWSON HUMPHRIESLIS [facility] Jan 22, 2011 02:38 PM CURRENT TOBACCO USER LAWSON JUAREZS [facility] Mar 13, 2010 12:48 PM CURRENT TOBACCO USER [facility] Advance Directives: All historical and current Section Date Range: From patient's date of to the date document was created. This section includes ALL of a patient's completed or amended [place] Advance and Rescinded Directives. The entries below indicate that a directive exists for the patient, but an actual copy is not included with this document. The data comes from all [facility]. Date Advance Directives Provider Source Feb 25, 2018 ADVANCE DIRECTIVE AURORA MORALES [facility] Feb 24, 2018 ADVANCE DIRECTIVE DISCUSSION AURORA MORALES [facility] May 26, 2017 CLINICAL WARNING MAGO CONTRERAS [facility] May 03, 2017 CLINICAL WARNING SARIAH ENGLE [facility] Aug 10, 2016 CLINICAL WARNING ISABEL BARCENAS [facility] Aug 02, 2016 CLINICAL WARNING AURORA ALMAZAN [facility] Pathology Reports: +/- 30 days of [...] the Encounter. The data comes from all [place] treatment facilities. Date/Time Pathology Report Provider Source May 08, 2022 06:46 PM LR SURGICAL PATHOLOGY REPORT: SARAH MEDEL [facility] LOCAL TITLE: LR SURGICAL PATHOLOGY REPORT STANDARD TITLE: PATHOLOGY REPORT DATE OF NOTE: MAY 08, 2022@18:46:34 ENTRY DATE: MAY 08, 2022@18:46:34 AUTHOR: SARAH MEDEL EXP COSIGNER: URGENCY: STATUS: COMPLETED $APHDR Reporting Lab: [facility] [CLIA# [id number]] [place] [address] - - - - - - - [...] Performing Laboratory: Surgical Pathology Report Performed By: [facility] [CLIA# [id number]] [place] [address] $FTR - - - - - - - - - - - - - - - - - - - - - - - - - - - - - - - - - - - - - - - - (End of report) SARAH MEDEL MD [facility] Date May 08, 2022 - - - - - - - - - - - - - - - - - - - - - - - - - - - - - - - - - - - - - - - - REGI MANTILLA STANDARD FORM 515 ID:[id number] SEX:M :1950 AGE: 72 LOC: 1153 PCP: Preet Anderson MD /mikal/ SARAH MEDEL MD STAFF PATHOLOGIST, PATHOLOGY & LABORATORY MED SV C Signed: 05/08/2022 18:46 Encounter Notes: All associated encounter notes This section contains the clinical notes associated to the Encounter. Date/Time Encounter Note(s) Provider Source April 10, 2022 11:14 AM CARDIOLOGY DIAGNOSTIC STUDY CONSULT: ROSY CENTENO [facility] LOCAL TITLE: CARDIAC ELECTROPHYSIOLOGY CONSULT STANDARD TITLE: CARDIOLOGY DIAGNOSTIC STUDY CONS ULT DATE OF NOTE: APRIL 10, 2022@11:14 ENTRY DATE: APRIL 10, 2022@11:14:12 AUTHOR: ROSY FAITH EXP COSIGNER: URGENCY: STATUS: COMPLETED SUBJECT: Electrophysiology Consult Requesting Provider: Dr. Preet Anderson, MSP PCP Reason for Request: recentl y hospitalized at [facility] 02/17 to 02/21/22, presented with Chest pain,k HR 135. Dx Multifocal atrial tachy cardia (HC) (Primary Dx) and gastritis. Seen by cardiology, EKG reviewed and per cardiology consistent with multifocal atrial tachycardia and not atri al fibrillation. Patient underwent a stress Myoview which was abnormal w ith a medium sized area of mild to moderate ischemia in the basal mid and apical inferior and infero- lateral best. Stress ECG negative for ischemia. EF 65%. Patient underwent coronary angiogram on February 20, 2022 w hich showed no obstructive disease. Cardiology recommends ongoing outpatie nt follow-up and an extended Holter monitor at discharge; patient e lected to follow-up at the [place] since he is known to cardiology here. I have orderred Ziopatch monitor for 7 days. OSH added on Dilitiazem but pt has not started yet. His BP is on the soft side today, and will not start this med. Please eval for outpat f/u. HPI: 71 y.o. male vet w/ h/o CAD (s/p DESx2->LCx /OM1 07/2016), HTN/HL, GERD/gastritis, CKD, seropositive RA (on Humira/ Sulfasalazine/chronic Prednisone), OA, and PSA (ETOH/marijuana) presen ts to EP clinic for further evaluation after recent [facility]SH hospitalizat ion 02/17/22 - 02/21/22 for chest pain and tachycardia. Pt. was dx w/ paroxysmal MAT. P t. was initially evaluated at [facility] but was then transfe rred to [facility]. Pt. had a cardiac cath during admission, which ron wed no obstructive CAD. Echo w/ normal EF. Pt. also had an EGD, which showed no n-erosive gastritis. Pt. was monitored for ETOH withdrawal during a dmission, but he did not exhibit sx. In the interim, pt. had another overnight hospitalization at [facility] 03/18/22 - 03/19/22 for acute gastroenteritis w/ lactic aci dosis, LYNNE, and elevated Troponin (attributed to demand ischemia). He was tx w/ fluids, and labs improved. Today, pt. reports feelig well and has no complaints. Denies palpitations, dizziness/LH, syncope, chest pain, SOB. His activity is limited by back pain, which he says is chronic due to a herniated disk. Pt. confirms having no symptoms during recent 2-week Zio monitoring. 12-point ROS: (-) except per HPI PMHx: *CAD - S/p ARLYN x 2 -> LCx + OM1 08/02/16 - Readmitted for NSTEMI 08/12/16, felt to be tuttle btotal occlusion of superior branch of the OM1 similar to [facility] on 08/02/16--m edically managed - S/p NSTEMI 04/2018; 05/11/18 cath w/ no obvio us culprit or target for PCI - S/p NSTEMI 02/2022; 03/11/22 cath w/ no obstr uctive CAD *HTN *HL *GERD/gastritis (02/19/22 EGD w/ non-erosive gas tropathy) *CKD *Seropositive RA (on Humira/Sulfasalazine/chroni c Prednisone) *R rib fx (s/p fall 11/2018) *OA (s/p R TKA 11/23/13) *Lumbar compression fx (05/2021 CT) *PSA (ETOH/marijuana) SHx: *Tobacco: quit 07/2016 after cardiac stents *ETOH: since 02/2022 admission---reduced to 2 1o z shots Parkman + 1 beer--- prior 1 pint whiskey + 6 pack/beer per day *Illicits: smokes marijuana via a one-hitter thr oughout the day; has been a regular marijuana smoker since [place] *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 The underlying rhythm is sinus 2. There was 1 patient reported event associate d with sinus rhythm and PACs 3. There were 4 episodes of nonsustained VT, th e longest was 7 beats 4. Paroxysmal atrial arrhythmias are present, o verall burden 31% - unclear if these episodes represent atrial fibrillation with rapid ventricular response, atrial flutter, or atrial tachycardia with block - Average heart rate in atrial arrhythmia was 1 40, range 64-237 - There were over thousand brief episodes of at rial arrhythmia, 57 episodes lasted 6 minutes or longer, the longes t episode lasted 13 hours 39 minutes 5. There were frequent PACs with an overall bur den of 8.1% - Echo (02/18/22 @ [facility]): 1. Technically limited exam. 2. Normal LV size, borderline wall thickness, E F of 60-65%. 3. Normal RV size and systolic function. 4. Mild LA enlargement. 5. Normal diastolic filling pattern. 6. No significant valve disease. 7. IVC not well-visualized: probably normal sergio iber with respiratory variation. Compared to prior exam report of 12/11/17, th ere has been no significant change. - PET CT Myocardial Perfusion Imaging (02/18/22 @ [facility]: 1. Myocardial perfusion was abnormal. There was a medium-sized area of mild to moderate ischemia in the basal, mid, and apical inferolateral best. 2. Adequate pharmacologic stress test with rega denoson. 3. The pharamacologic stress ECG was negative f or ischemia. 4. LV cavity size was normal (resting EDV 69mL) . 5. There was normal myocardial thickening and w all motion with a calculated resting LVEF of 65%. - Cardiac Cath (02/20/22 @ [facility]): - LAD - widely patent and has focal 50% stenosi s in mid-LAD - LCx - large and dominant and has patent stent s in mid-Cx and OM1 - RCA - small, nondominant and has moderate dis ease Allergies: Lisinopril Active Medications: ACETAMINOPHEN 500MG TAB TAKE TWO TABLETS BY MOUT H ACTIVE FOUR TIMES A DAY NEEDED ADALIMUMAB 40MG/0.8ML INJ PEN KIT INJECT 40 MG U NDER ACTIVE THE SKIN EVERY 2 WEEKS ASPIRIN 81MG EC TAB TAKE ONE TABLET BY MOUTH GISSELLE RY ACTIVE DAY ATORVASTATIN CALCIUM 80MG TAB TAKE ONE TABLET BY ACTIVE MOUTH AT BEDTIME CHOLECALCIF 25MCG (D3-1,000UNIT) TAB TAKE ONE TA BLET ACTIVE BY MOUTH EVERY DAY CYANOCOBALAMIN 1000MCG TAB TAKE ONE TABLET BY MO UTH ACTIVE (S) EVERY DAY FLUTICASONE PROP 50MCG 120D NASAL INHL SPRAY 1 S PRAY ACTIVE IN EACH NOSTRIL TWICE A DAY NEEDED FOLIC ACID 1MG TAB TAKE ONE TABLET BY MOUTH EVER Y DAY ACTIVE (S) ISOSORBIDE MONONITRATE 60MG SA TAB TAKE ONE-HALF ACTIVE TABLET BY MOUTH EVERY DAY LORATADINE 10MG TAB TAKE ONE TABLET BY MOUTH GISSELLE RY ACTIVE DAY FOR ALLERGY SYMPTOMS METOPROLOL TARTRATE 50MG TAB TAKE ONE TABLET BY MOUTH ACTIVE TWICE A DAY PANTOPRAZOLE NA 40MG EC TAB TAKE ONE TABLET BY M OUTH ACTIVE (S) EVERY MORNING ONE-HALF HOUR BEFORE EATING TO DECREASE STOMACH ACID PREDNISONE 10MG TAB TAKE ONE TABLET BY MOUTH GISSELLE RY ACTIVE DAY SULFASALAZINE 500MG TAB TAKE TWO TABLETS BY MOUT H ACTIVE TWICE A DAY Vital Signs: Temperature: 98.7 F [37.1 C] (04/10/2022 10:58) Blood Pressure: 135/84 (04/10/2022 10:58) Pulse: 76 (04/10/2022 10:58) Respiration: 20 (04/10/2022 10:58) PE: GA: very pleasant, non-toxic appearing, olde r, male in NAD Lungs: CTAB, no w/r/c CV: RRR; no m/g/r; no JVD Ext: no edema Neuro: AOx4; no focal deficits A/P: 71 y.o. male vet w/ h/o CAD (s/p DESx2->LCx/OM1 07/2016), HTN/HL, GERD/gastritis, CKD, seropositive RA (on Humira/ Sulfasalazine/chronic Prednisone), OA, and PSA (ETOH/marijuana) was re ferred to EP for further management of atrial arrhythmias after recent no -[facility] hospitalization where he was dx w/ MAT. - 03/2022 14-day Zio showed 31% AT vs. AFl burde n w/ average HR 140 bpm. Longest episode - 13 hours/29 minutes. It is di fficult to discern if fast rhythms are AT vs. AFl. However, there are two tracings (page 9 and page 17) which clearly show A.fib. - CHADS-VASC = 3 (>65, HTN, CAD/ME). Anticoagula tion is indicated for CVA prophylaxis. Risks/benefits were extens ively discussed. Pt. denies falls, h/o major bleeding event, or clotting d/o. Of lee rn is his continued ETOH use, although he has cut back substantially. Recent EGD also revealed non-erosive gastritis. Pt. confirms com pliance w/ Pantoprazole. After much discussion, pt. would like to proceed w/ starting Apixaban. Phong l d/c ASA 81mg given his increased risk for GIB. - Pt. is adamantly asymptomatic w/ atria l arrhythmias despite profound RVR (up to 237 bpm). This is occurr ing despite Metoprolol 50mg BID. Atrial arrhythmias are very poorly rate controlled w/ HR >110 bpm 43% during daytime hours and 41% during nighttime hours and over 150 bpm 44% during daytime hours 30% during nighttime hours. - OSH TTE w/ EF 60-65%, but pt. is at risk for developing tachy-mediated CM. He is also at risk for other sx (dizziness/syncope ) given extreme RVR. - Given paroxysmal atrial ar rhythmias w/ profound RVR, recommend pursuing rhythm control. Tx options of AAD vs. ablation were di scussed. At this time, pt. prefers medication, but he would be ope n to ablation in the future. Given CAD hx, pt. is only eligible for Class III AADs. Gi kaitlyn recent issues w/ vacillating renal fx and electrolytes, would no t recommend Dofetilide or Sotalol. Recommend starting Amiodarone---will s low load over 30 days (200mg BID), then reduce to 200mg/daily. - Written and verbal instruc tions were provided for pt., and he verbalized very clear understanding. - Pt. was congratulated on E BRENNA reduction. Cessation encouraged, but pt. has no interest in quitting. Thank you for this consult. - F/u EP clinic 4-6 weeks w/ labs/EKG/PF T. Will plan to re-discuss ablation at that visit. /mikal/ ROSY FAITH APRN/STEPHANIE/[facility] ELECTROPHYSIOLOGY NURSE PRACTITIONER Signed: 04/11/2022 12:00 April 10, 2022 10:59 AM INTERNAL MEDICINE OUTPATIENT NOTE: RICARDO KING [facility] LOCAL TITLE: MEDICINE CLINIC NURSING NOTE STANDARD TITLE: INTERNAL MEDICINE OUTPATIENT NOT E DATE OF NOTE: APRIL 10, 2022@10:59 ENTRY DATE: APRIL 10, 2022@10:59:43 AUTHOR: SHERRY KING EXP COSIGNER: URGENCY: STATUS: COMPLETED TYPE OF VISIT: Appointment Check In Type of appointment: In-person appointment REASON FOR VISIT: scheduled visit ALLERGIES: LISINOPRIL (Jun 01, 2021) VITAL SIGNS: Blood Pressure: 135/84 (04/10/2022 10:58) Pulse: 76 (04/10/2022 10:58) Respiration: 20 (04/10/2022 10:58) Temperature: 98.7 F [37.1 C] (04/10/2022 10:58) Weight: 120.9 lb [54.84 kg] (04/10/2022 10:58) Height: 62 in [157.5 cm] (03/05/2022 12:54) BMI: 22.2 O2 Sat: 96% (04/10/2022 10:58) Pain: 2 (03/05/2022 12:54) PAIN SCREEN: Patient is not having significant pain that the y wish to discuss with their provider today. MEDICATION Over the Counter/Herbal Medications: The patient denies taking any outside medicatio ns or herbals. /abbie KING LPN LPN Signed: 04/10/2022 11:00
--- OUTSIDE RECORDS SUMMARY | 2022-06-25 19:36 | XMS_ITS | Encounter Summary ---
:1950 Author Organization [facility] Address [address] [place] [address] Support Name Relationship Address Phone MADELIN MANTILLA Unavailable [phone] [place] [address] MADELIN MANTILLA Unavailable [address] [phone] [place] [address] DHAVAL MANTILLA Unavailable [address] [place] [address] Insurance Providers: All historical and current Section [...] MEDICARE MEDICARE PART Jul 18, PART B [id number] ANNALEE BUSTILLO (WNR) (M) B 2014 24A [phone] ,[place] MEDICARE MEDICARE PART Apr 17, PART A [id number] ANNALEE BUSTILLO (WNR) (M) A 2012A [phone] ,[place] Selected Encounter This section includes the information on record at [place] for the Encounter. Date/Time Encounter Type Encounter Description Reason Provider Source March 26, 2022 03:33 Outpatient Encounter ADMIN PAT ACTIVANGELINA PM (MASNONCT) IHE Encounter Template Text not used by [place] Plan of Treatment: Future Appointments (+ 6 [...] 20 appointments. The data comes from all [place] treatment facilities. Appointment Date/Time Appointment Type Appointment Facili ty Name April 10, 2022 11:00 AM [facility]ORY [facility] April 10, 2022 11:30 AM [facility]ORY [facility] April 12, 2022 08:30 AM [facility]ULATORY [facility] May 07, 2022 09:00 AM [facility]BULATORY [facility] May 15, 2022 10:30 AM AMBULATORY - [facility] May 15, 2022 10:40 AM [facility]BULATORY [facility] May 15, 2022 11:30 AM [facility]BULATORY - [facility] May 15, 2022 01:00 PM AMBULATORY - [facility] May 15, 2022 01:45 PM AMBULATORY - NONE [facility] Jun 19, 2022 01:15 PM AMBULATORY - NONE [facility] Jun 24, 2022 05:53 PM AMBULATORY [facility]IC[facility] Jul 12, 2022 09:20 AM AMBULATORY - SURGERY [facility] Jul 19, 2022 08:00 AM AMBULATORY - [facility] Jul 19, 2022 09:00 AM AMBULATORY - [facility]IC[facility] Lab Results: +/- 30 days of the encounter This section includes the Chemistry and Hematology Lab Results on record with [place] for the patient. Radiology Reports and Pathology Reports are provided separately, in subsequent sections.Lab Results This section contains the Chemistry/Hematology Results that were resulted 30 days before or 30 daysafter the date of the Encounter. Date/Time Source Result Type Result - Unit Interpretation Reference Range Comment Mar 05, 2022 11:[address] [facility] HEMOGLOBIN A1C Specim en Type: BLOOD No comment enter ed. Ordering Provid er: MARYELLEN LEON Report Released Date/Time: Jun 01, 2021 04:21 PM Reporting Lab: [facility] [address] [facility] [address] Performing Lab: [facility] [address] [facility] [address] HEMOGLOBIN A1C 5.6 4.0-6.0 Mar 05, 2022 11:47 [facility] LIPID PANEL,NON-FASTING S pecimen Type: PLASMA AM No comment enter ed. Ordering Provid er: MARYELLEN LEON Report Released Date/Time: Jun 01, 2021 04:21 PM Reporting Lab: [facility] [address] [facility] [address] Performing Lab: [facility] [address] [facility] [address] CHOLESTEROL 188 <199 .HDL 83 >40 LDL CALCULATION 78 <99 VLDL CALCULATION 27 <29 NON HDL CHOLESTEROL 105 <129 TRIG(NON FASTING) 133 <149 Mar 05, 2022 11:47 [facility] BASIC METABOLIC Specimen Type: PLASMA AM PANEL+MG No comment enter ed. Ordering Provid er: MARYELLEN LEON Report Released Date/Time: Jun 01, 2021 04:21 PM Reporting Lab: [facility] [address] Performing Lab: [facility] [address] CREATININE 1.0 0.7-1.2 UREA NITROGEN 21 8-26 GLUCOSE 112 H 74-100 SODIUM 139 136-145 POTASSIUM 4.9 3.5-5.1 CHLORIDE 103 98-107 CO2 25 22-29 CALCIUM 9.6 8.4-10.2 MAGNESIUM 1.6 1.6-2.6 ANION GAP 11 5-15 CREAT EGFR(CKD-EPI) 79 >60 Mar 05, 2022 11:[address] [facility] AST/SGOT Specim en Type: PLASMA No comment enter ed. Ordering Provid er: MARYELLEN LEON Report Released Date/Time: Mar 05, 2022 01:38 PM Reporting Lab: [facility] [address] [facility] [address] Performing Lab: [facility] [address] AST/SGOT 21 <34 Mar 05, 2022 11:[address] [facility] ALT/SGPT Specim en Type: PLASMA No comment enter ed. Ordering Provid er: MARYELLEN LEON Report Released Date/Time: Mar 05, 2022 01:38 PM Reporting Lab: [facility] [address] Performing Lab: [facility] [address] ALT/SGPT 15 <55 Social History: Smoking Status (Most current) and Tobacco Use (All prior to encounter date) This section includes the most current, and the historical, smoking and tobacco-related health factors from the [facility] where the Encounter took place.Current Smoking Status This section includes the most current smoking, or tobacco-related health factor, from the [place] facility where the Encounter took place. Date/Time Current Smoking Status Comment Facility Mar 05, 2022 01:30 PM VA-TOBACCO FORMER USER [facility] Tobacco Use History This section includes a history of the smoking, or tobacco- related health factors, that were collected on or before the date of the Encounter. The data comes from the [place] facility where the Encounter took place. Date/Time Smoking Status/Tobacco Use Comment Facil ity Mar 05, 2022 01:30 PM VA-TOBACCO QUIT 1 TO < [address] [facility] Jun 01, 2021 02:00 PM [facility] Dec 31, 2019 10:54 AM VA-TOBACCO FORMER USER [facility] Dec 31, 2019 10:54 AM VA-TOBACCO QUIT < 1 YEAR M [facility] March 23, 2019 09:53 AM VA-TOBACCO FORMER USER [facility] March 23, 2019 09:53 AM VA-TOBACCO QUIT < 1 YEAR M [facility] Jun 10, 2018 10:00 AM CURRENT TOBACCO USER [facility] May 10, 2018 07:27 PM [facility] May 10, 2018 07:27 PM [place] [facility] Aug 29, 2017 09:55 AM FORMER TOBACCO USE <1Y [facility] May 26, 2017 10:51 PM [place] [facility] May 26, 2017 10:51 PM INPT TOBACCO US[place] [facility] May 03, 2017 09:34 PM INPT [place]BAC[place] COUN[place] [facility] May 03, 2017 09:34 PM INPT [place]BACCO US[place] [facility] Sep 18, 2016 01:36 PM FORMER TOBACCO USE <1Y [facility] Aug 10, 2016 03:54 PM INPT TOBACCO USE - PT REFUSED [facility] Aug 01, 2016 06:48 PM [facility] Aug 01, 2016 06:48 PM INPT TOBACCO USER [place] [facility] Feb 08, 2015 09:57 AM CURRENT TOBACCO USER [facility] Nov 29, 2013 10:37 AM CURRENT TOBACCO USER [facility] Nov 26, 2013 11:09 AM PATIENT IS TOBACCO USER [place] [facility] Nov 27, 2012 12:12 PM CURRENT TOBACCO USER [facility] Dec 27, 2011 09:44 AM CURRENT TOBACCO USER [facility] Jan 22, 2011 02:38 PM CURRENT TOBACCO USER [facility] Mar 13, 2010 12:48 PM CURRENT TOBACCO USER [facility] Advance Directives: All historical and current Section Date Range: From patient's date of to the date document was created. This section includes ALL of a patient's completed or amended [place] Advance and Rescinded Directives. The entries below indicate that a directive exists for the patient, but an actual copy is not included with this document. The data comes from all [facility]. Date Advance Directives Provider Source Feb 25, 2018 ADVANCE DIRECTIVE AURORA MORALES [facility] Feb 24, 2018 ADVANCE DIRECTIVE DISCUSSION AURORA MORALES [facility] May 26, 2017 CLINICAL WARNING MAGO CONTRERAS [facility] May 03, 2017 CLINICAL WARNING SARIAH ENGLE [facility] Aug 10, 2016 CLINICAL WARNING ISABEL BARCENAS [facility] Aug 02, 2016 CLINICAL WARNING AURORA ALMAZAN [facility] Encounter Notes: All associated encounter notes This section contains the clinical notes associated to the Encounter. Date/Time Encounter Note(s) Provider Source March 18, 2022 03:33 PM NONVA NOTE: MILENA DERASVERÓNICA IS [facility] LOCAL TITLE: EMERGENCY DEPARTMENT NONVA NOTE STANDARD TITLE: NONVA NOTE DATE OF NOTE: MARCH 18, 2022@15:33 ENTRY DATE: MARCH 26, 2022@15:35:42 AUTHOR: MILENA DERAS EXP COSIGNER: URGENCY: STATUS: COMPLETED This note contains attached EMERGENCY DEPARTMENT scanned document(s) received from an outside facility. Open [place] [employer] to review the documen t(s). /mikal/ MILENA DERAS Raspberry Checker Signed: 03/26/2022 15:35
--- OUTSIDE RECORDS SUMMARY | 2022-06-25 19:36 | XMS_ITS | Encounter Summary ---
:1950 Author Organization [facility] Address [address] [place] [address] Support Name Relationship Address Phone MADELIN MANTILLA Unavailable [address] [phone] [place] [address] MADELIN MANTILLA Unavailable [address] [phone] [place] [address] DHAVAL MANTILLA Unavailable [address] [place] [address] Insurance Providers: All historical and current Section [...] MEDICARE MEDICARE PART Jul 18, PART B [id number] ANNALEE BRYANIENT (WNR) (M) B 2014A [phone] ,REGI MEDICARE MEDICARE PART Apr 17, PART A [id number] ANNALEE Cardenas ATIENT (WNR) (M) A 2012A [phone] ,[place] Selected Encounter This section includes the information on record at [place] for the Encounter. Date/Time Encounter Type Encounter Reason Provider Source Description Mar 12, 2022 ECG MONIT/REPRT AMB ECG ICD-10-CM Z13.6 MARYELLEN LEON 11:00 AM UP TO 48 HRS MONITORING Encounter for screening for cardiovascular disorders with Provider Comments: Encounter for Screening for Cardiovascular Disorders IHE Encounter Template Text not used by [place] Assessments - Encounter Diagnoses This section includes the primary and secondary diagnoses documented for the Encounter. Date/Time Primary/Secondary Diagnosis Name Provider Source Diagnosis Mar 12, 2022 PRIMARY Encounter for EDWARDO SUÁREZ 02:30 PM screening for HCS cardiovascular disorders Plan of Treatment: Future Appointments (+ 6 months) and Future Tests (+/- 45 days) The Plan of Treatment section includes future care activities for the patient from all [place] [facility]. This section includes future appointments and future orders which are active, pending orscheduled.Future Appointments This section includes appointments that were scheduled to occur 6 months from the date of the Encounter, up to a maximum of 20 appointments. The data comes from all [place] treatment facilities. Appointment Date/Time Appointment Type Appointment Facili ty Name March 19, 2022 06:03 PM AMBULATORY - NONE [facility] April 10, 2022 11:00 AM AMBULATORY - MEDICINE [facility] April 10, 2022 11:30 AM AMBULATORY - MEDICINE [facility] April 12, 2022 08:30 AM AMBULATORY - MEDICINE [facility] May 07, 2022 09:00 AM AMBULATORY - MEDICINE [facility] May 15, 2022 10:30 AM AMBULATORY - MEDICINE [facility] May 15, 2022 10:40 AM AMBULATORY - MEDICINE [facility] May 15, 2022 11:30 AM AMBULATORY - MEDICINE [facility] May 15, 2022 01:00 PM AMBULATORY - MEDICINE [facility] May 15, 2022 01:45 PM AMBULATORY - NONE [facility] Jun 19, 2022 01:15 PM AMBULATORY - NONE [facility] Jun 24, 2022 05:53 PM AMBULATORY - MEDICINE [facility] Jul 12, 2022 09:20 AM AMBULATORY - SURGERY [facility] Jul 19, 2022 08:00 AM AMBULATORY - MEDICINE [facility] Jul 19, 2022 09:00 AM AMBULATORY - MEDICINE [facility] Lab Results: +/- 30 days of the encounter This section includes the Chemistry and Hematology Lab Results on record with [place] for the patient. Radiology Reports and Pathology Reports are provided separately, in subsequent sections.Lab Results This section contains the Chemistry/Hematology Results that were resulted 30 days before or 30 daysafter the date of the Encounter. Date/Time Source Result Type Result - Unit Interpretation Reference Range Comment Mar 05, 2022 11:47 AM [facility] HEMOGLOBIN A1C Specim en Type: BLOOD No comment enter ed. Ordering Provid er: MARYELLEN LEON Report Released Date/Time: Jun 01, 2021 04:21 PM Reporting Lab: [facility] ONE [facility] CHARU SOLARES [facility] [address] Performing Lab: [facility] [address] HEMOGLOBIN A1C 5.6 4.0-6.0 Mar 05, 2022 11:47 [facility] LIPID PANEL,NON-FASTING S pecimen Type: PLASMA AM No comment enter ed. Ordering Provid er: MARYELLEN LEON Report Released Date/Time: Jun 01, 2021 04:21 PM Reporting Lab: [facility] [address] [facility] [address] Performing Lab: [facility] [address] [facility] [address] CHOLESTEROL 188 <199 .HDL 83 >40 LDL CALCULATION 78 <99 VLDL CALCULATION 27 <29 NON HDL CHOLESTEROL 105 <129 TRIG(NON FASTING) 133 <149 Mar 05, 2022 11:47 [facility] BASIC METABOLIC Specimen Type: PLASMA AM PANEL+MG No comment enter ed. Ordering Provid er: MARYELLEN LEON Report Released Date/Time: Jun 01, 2021 04:21 PM Reporting Lab: [facility] [address] [facility] [address] Performing Lab: [facility] [address] [facility] [address] CREATININE 1.0 0.7-1.2 UREA NITROGEN 21 8-26 GLUCOSE 112 H 74-100 SODIUM 139 136-145 POTASSIUM 4.9 3.5-5.1 CHLORIDE 103 98-107 CO2 25 22-29 CALCIUM 9.6 8.4-10.2 MAGNESIUM 1.6 1.6-2.6 ANION GAP 11 5-15 CREAT EGFR(CKD-EPI) 79 >60 Mar 05, 2022 11:47 AM [facility] AST/SGOT Specim en Type: PLASMA No comment enter ed. Ordering Provid er: MARYELLNE LEON Report Released Date/Time: Mar 05, 2022 01:38 PM Reporting Lab: [facility] [address] [facility] [address] Performing Lab: [facility] [address] [facility] [address] AST/SGOT 21 <34 Mar 05, 2022 11:47 AM [facility] ALT/SGPT Specim en Type: PLASMA No comment enter ed. Ordering Provid er: MARYELLEN LEON Report Released Date/Time: Mar 05, 2022 01:38 PM Reporting Lab: [facility] [address] [facility] [address] Performing Lab: [facility] [address] [facility] [address] ALT/SGPT 15 <55 Social History: Smoking Status (Most current) and Tobacco Use (All prior to encounter date) This section includes the most current, and the historical, smoking and tobacco-related health factors from the [place] facility where the Encounter took place.Current Smoking Status This section includes the most current smoking, or tobacco-related health factor, from the [place] facility where the Encounter took place. Date/Time Current Smoking Status Comment Facility Mar 05, 2022 01:30 PM VA-TOBACCO FORMER USER [facility] Tobacco Use History This section includes a history of the smoking, or tobacco- related health factors, that were collected on or before the date of the Encounter. The data comes from the [place] facility where the Encounter took place. Date/Time Smoking Status/Tobacco Use Comment Facil it Mar 05, 2022 01:30 PM VA-TOBACCO QUIT 1 TO < 5 YRS [facility] Jun 01, 2021 02:00 PM [facility]ACCO [facility] Dec 31, 2019 10:54 AM VA-TOBACCO FORMER USER [facility] Dec 31, 2019 10:54 AM VA-TOBACCO QUIT < [facility] YEAR [facility] March 23, 2019 09:53 AM VA-TOBACCO FORMER USER [facility] March 23, 2019 09:53 AM VA-TOBACCO QUIT < 1 YEAR [facility] Jun 10, 2018 10:00 AM CURRENT TOBACCO USER [place] [facility] May 10, 2018 07:27 PM INPT TOBAC[place] COUNSEL[place] [facility] May 10, 2018 07:27 PM [place]ACCO [place] [facility] Aug 29, 2017 09:55 AM FORMER TOBACCO USE <1Y [facility] May 26, 2017 10:51 PM INPT TOBACCO COUNSELING [place] [facility] May 26, 2017 10:51 PM INPT TOBACCO US[place] [facility] May 03, 2017 09:34 PM INPT [place]BACCO COUNSELING [place] [facility] May 03, 2017 09:34 PM INPT TOBACCO USER [place] [facility] Sep 18, 2016 01:36 PM FORMER TOBACCO USE <1Y [facility] Aug 10, 2016 03:54 PM INPT TOBACCO USE - PT REFUSED [facility] Aug 01, 2016 06:48 PM INPT TOBACCO COUNSELING [place] [facility] Aug 01, 2016 06:48 PM INPT TOBACCO USER GONZALES LORENZ [facility] Feb 08, 2015 09:57 AM CURRENT TOBACCO USER LAWSON ADAME [facility] Nov 29, 2013 10:37 AM CURRENT TOBACCO USER [place] AD[place] [facility] Nov 26, 2013 11:09 AM PATIENT IS TOBACCO USER ANAID GARCIA [facility] Nov 27, 2012 12:12 PM CURRENT TOBACCO USER [place] [facility] Dec 27, 2011 09:44 AM CURRENT TOBACCO USER LAW[place] ADAME [facility] Jan 22, 2011 02:38 PM CURRENT TOBACCO USER [place] HUMPHRIESS [facility] Mar 13, 2010 12:48 PM CURRENT TOBACCO USER [facility] Advance Directives: All historical and current Section Date Range: From patient's date of to the date document was created. This section includes ALL of a patient's completed or amended [place] Advance and Rescinded Directives. The entries below indicate that a directive exists for the patient, but an actual copy is not included with this document. The data comes from all [place] facilities. Date Advance Directives Provider Source Feb 25, 2018 ADVANCE DIRECTIVE AURORA MORALES [facility] Feb 24, 2018 ADVANCE DIRECTIVE DISCUSSION AURORA MORALES [facility] May 26, 2017 CLINICAL WARNING MAGO CONTRERAS [facility] May 03, 2017 CLINICAL WARNING SARIAH ENGLE [facility] Aug 10, 2016 CLINICAL WARNING ISABEL BARCENAS [facility] Aug 02, 2016 CLINICAL WARNING NORAHAURORA Carla [facility] Encounter Notes: All associated encounter notes This section contains the clinical notes associated to the Encounter. Date/Time Encounter Note(s) Provider Source Mar 12, 2022 02:30 PM CARDIOLOGY OUTPATIENT NOTE: EDWARDO SUÁREZ [facility] LOCAL TITLE: CARDIOLOGY CLINIC TECHNOLOGIST NOT E STANDARD TITLE: CARDIOLOGY OUTPATIENT NOTE DATE OF NOTE: MAR 12, 2022@14:30 ENTRY DATE: MAR 12, 2022@14:30:05 AUTHOR: EDWARDO SUÁREZ EXP COSIGNER: URGENCY: STATUS: COMPLETED Event Monitor ZIO Monitor Clinical indication for ZIO: Cardiac Arrhythmia Enrolled patient. Assessed monitor placement. Prepped skin. - SHAVE area if hair is present - ABRADE skin, applying pressure for 40 broad s trokes -10 times diagonally left, diagonally right, across and down (40 jacqueline es total). - CLEAN skin thoroughly with both alcohol pads. Let dry for 1 minute. Applied monitor. Activate ZIO Monitor. Education given to patient along with MCKENNA carrillo Instructions Pamphlet and Button Press Log. Date to remove patch: March Instructed to return the monitor by mail along with the log book in the pre- addressed return box and drop into [employer] mailbox. Registered device with [employer]; serial number: [id number]. /mikal/ EDWARDO SUÁREZ Outside Sales Representative Signed: 03/12/2022 14:30
--- OUTSIDE RECORDS SUMMARY | 2022-06-25 19:36 | XMS_ITS | Encounter Summary ---
:1950 Author Organization [facility] Address [address] [place] [address] Support Name Relationship Address Phone MADELIN MANTILLA Unavailable [address] [phone] [place] [address] MADELIN MANTILLA Unavailable [address] [phone] [place] [address] DHAVAL MANTILLA Unavailable [address] [place] [address] Insurance Providers: All historical and current Section [...] MEDICARE MEDICARE PART Jul 18, PART B [id number] ANNALEE BUSTILLO (WNR) (M) B 2014 24A [phone] ,REG[place] MEDICARE MEDICARE PART Apr 17, PART A [id number] ANNALEE BUSTILLO (WNR) (M) A 2012A [phone] ,REGI Selected Encounter This section includes the information on record at [place] for the Encounter. Date/Time Encounter Type Encounter Description Reason Provider Source March 26, 2022 03:39 Outpatient Encounter ADMIN PAT ACTIVANGELINA PM (MASNONCT) IHE Encounter Template Text not used by [place] Plan of Treatment: Future Appointments (+ 6 [...] 20 appointments. The data comes from all [place] treatment facilities. Appointment Date/Time Appointment Type Appointment Facili ty Name April 10, 2022 11:00 AM AMBULATORY - MEDICINE [facility] April 10, 2022 11:30 AM AMBULATORY - MEDICINE [facility] April 12, 2022 08:30 AM AMBULATORY - MEDICINE [facility] May 07, 2022 09:00 AM AMBULATORY - MEDICINE [facility] May 15, 2022 10:30 AM AMBULATORY - MEDICINE [facility] May 15, 2022 10:40 AM AMBULATORY - MEDICINE [facility] May 15, 2022 11:30 AM AMBULATORY - MEDICINE [facility] May 15, 2022 01:00 PM AMBULATORY - MEDICINE [facility] May 15, 2022 01:45 PM AMBULATORY - NONE [facility] Jun 19, 2022 01:15 PM AMBULATORY - NONE [facility] Jun 24, 2022 05:53 PM AMBULATORY - MEDICINE [facility] Jul 12, 2022 09:20 AM AM[facility]UL[facility]ORY [facility] SUR[facility]ERY [facility] Jul 19, 2022 08:00 AM AMBULATORY - MEDICINE [facility] Jul 19, 2022 09:00 AM AMBULATORY - MEDICINE [facility] Lab Results: +/- 30 days of the encounter This section includes the Chemistry and Hematology Lab Results on record with [place] for the patient. Radiology Reports and Pathology Reports are provided separately, in subsequent sections.Lab Results This section contains the Chemistry/Hematology Results that were resulted 30 days before or 30 daysafter the date of the Encounter. Date/Time Source Result Type Result - Unit Interpretation Reference Range Comment Mar 05, 2022 11:47 AM [facility] HEMOGLOBIN A1C Specim en Type: BLOOD No comment enter ed. Ordering Provid er: MARYELLEN LEON Report Released Date/Time: Jun 01, 2021 04:21 PM Reporting Lab: [facility] [address] [facility] [address] Performing Lab: [facility] [address] [facility] [address] HEMOGLOBIN A1C 5.6 4.0-6.0 Mar 05, 2022 11:47 [facility] LIPID PANEL,NON-FASTING S pecimen Type: PLASMA AM No comment enter ed. Ordering Provid er: MARYELLEN LEON Report Released Date/Time: Jun 01, 2021 04:21 PM Reporting Lab: [facility] [address] [facility] [id number] Performing Lab: [facility] [address] [facility] [address] CHOLESTEROL 188 <199 .HDL 83 >40 LDL CALCULATION 78 <99 VLDL CALCULATION 27 <29 NON HDL CHOLESTEROL 105 <129 TRIG(NON FASTING) 133 <149 Mar 05, 2022 11:47 [facility] BASIC METABOLIC Specimen Type: PLASMA AM PANEL+MG No comment enter ed. Ordering Provid er: MARYELLEN LEON Report Released Date/Time: Jun 01, 2021 04:21 PM Reporting Lab: [facility] [id number] Performing Lab: [facility] [address] CREATININE 1.0 0.7-1.2 UREA NITROGEN 21 8-26 GLUCOSE 112 H 74-100 SODIUM 139 136-145 POTASSIUM 4.9 3.5-5.1 CHLORIDE 103 98-107 CO2 25 22-29 CALCIUM 9.6 8.4-10.2 MAGNESIUM 1.6 1.6-2.6 ANION GAP 11 5-15 CREAT EGFR(CKD-EPI) 79 >60 Mar 05, 2022 11:47 AM [facility] AST/SGOT Specim en Type: PLASMA No comment enter ed. Ordering Provid er: MARYELLEN LEON Report Released Date/Time: Mar 05, 2022 01:38 PM Reporting Lab: [facility] [address] Performing Lab: [facility] [address] AST/SGOT 21 <34 Mar 05, 2022 11:47 AM [facility] ALT/SGPT Specim en Type: PLASMA No comment enter ed. Ordering Provid er: MARYELLEN LEON Report Released Date/Time: Mar 05, 2022 01:38 PM Reporting Lab: [facility] [address] Performing Lab: [facility] [address] ALT/SGPT 15 <55 Social History: Smoking Status (Most current) and Tobacco Use (All prior to encounter date) This section includes the most current, and the historical, smoking and tobacco-related health factors from the [facility] where the Encounter took place.Current Smoking Status This section includes the most current smoking, or tobacco-related health factor, from the [place] facility where the Encounter took place. Date/Time Current Smoking Status Comment Facility Mar 05, 2022 01:30 PM VA-TOBACCO FORMER USER [facility] Tobacco Use History This section includes a history of the smoking, or tobacco- related health factors, that were collected on or before the date of the Encounter. The data comes from the [place] facility where the Encounter took place. Date/Time Smoking Status/Tobacco Use Comment Facil ity Mar 05, 2022 01:30 PM VA-TOBACCO QUIT 1 TO < 5 YRS [facility] Jun 01, 2021 02:00 PM [facility] Dec 31, 2019 10:54 AM VA-TOBACCO FORMER USER [facility] Dec 31, 2019 10:54 AM VA-TOBACCO QUIT < 1 YEAR M [facility] March 23, 2019 09:53 AM VA-TOBACCO FORMER USER [facility] March 23, 2019 09:53 AM VA-TOBACCO QUIT < 1 YEAR M [facility] Jun 10, 2018 10:00 AM CURRENT TOBACCO USER [facility] May 10, 2018 07:27 PM [facility] May 10, 2018 07:27 PM [facility] Aug 29, 2017 09:55 AM FORMER TOBACCO USE <1Y [facility] May 26, 2017 10:51 PM [facility]AC[facility] COUNSEL[facility] May 26, 2017 10:51 PM [place] [place]AC[place] [facility] May 03, 2017 09:34 PM INPT TOBACCO COUNSELING [facility] May 03, 2017 09:34 PM INPT TOBACCO US[facility] Sep 18, 2016 01:36 PM FORMER TOBACCO USE <1Y [facility] Aug 10, 2016 03:54 PM INPT TOBACCO USE - PT REFUSED [facility] Aug 01, 2016 06:48 PM [facility] Aug 01, 2016 06:48 PM IN[place]BACCO [facility] Feb 08, 2015 09:57 AM CURRENT [facility]ACCO [facility] Nov 29, 2013 10:37 AM CURRENT TOBACCO USER [facility] Nov 26, 2013 11:09 AM PATIENT IS TOBACCO USER [facility] Nov 27, 2012 12:12 PM CURRENT TOBACCO USER [facility] Dec 27, 2011 09:44 AM CURRENT TOBACCO USER [facility] Jan 22, 2011 02:38 PM CURRENT TOBACCO USER [facility] Mar 13, 2010 12:48 PM CURRENT TOBACCO USER [facility] Advance Directives: All historical and current Section Date Range: From patient's date of to the date document was created. This section includes ALL of a patient's completed or amended [place] Advance and Rescinded Directives. The entries below indicate that a directive exists for the patient, but an actual copy is not included with this document. The data comes from all [facility]. Date Advance Directives Provider Source Feb 25, 2018 ADVANCE DIRECTIVE [facility] Feb 24, 2018 ADVANCE DIRECTIVE DISCUSSION [facility] May 26, 2017 CLINICAL WARNING MAGO CONTRERAS [facility] May 03, 2017 CLINICAL WARNING SARIAH ENGLE [facility] Aug 10, 2016 CLINICAL WARNING ISABEL BARCENAS [facility] Aug 02, 2016 CLINICAL WARNING [facility] Encounter Notes: All associated encounter notes This section contains the clinical notes associated to the Encounter. Date/Time Encounter Note(s) Provider Source March 18, 2022 03:39 PM NONVA NOTE: MILENA [facility]ERASVER[facility]ICA [facility] LOC[facility] TITLE: GASTROENTEROLOGY NONVA NOTE STANDARD TITLE: NONVA NOTE DATE OF NOTE: MARCH 18, 2022@15:39 ENTRY DATE: MARCH 26, 2022@15:40:52 AUTHOR: MILENA DERAS EXP COSIGNER: URGENCY: STATUS: COMPLETED This note contains attached GASTROENTEROLOGY sca nned document(s) received from an outside facility. Open [employer] to review the documen t(s). 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
--- OUTSIDE RECORDS SUMMARY | 2022-06-25 19:36 | XMS_ITS | Encounter Summary ---
:1950 Author Organization [facility] Address [address] [place] [address] Support Name Relationship Address Phone MADELIN MANTILLA Unavailable [address] [phone] [place] [address] MADELIN MANTILLA Unavailable [address] [phone] [place] [address] DHAVAL MANTILLA Unavailable [address] [place] [address] Insurance Providers: All historical and current Section [...] MEDICARE MEDICARE PART Jul 18, PART B [id number] ANNALEE BUSTILLO (WNR) (M) B 2014A [phone] ,REGI MEDICARE MEDICARE PART Apr 17, PART A [id number] 800 ANNALEE BRYANIENT (WNR) (M) A [phone] ,[place] Selected Encounter This section includes the information on record at [place] for the Encounter. Date/Time Encounter Type Encounter Reason Provider Source Description April 04, 2022 EXT ECG>7D<15D AMB ECG ICD-10-CM I48.92 ARMIDA SWANSON 08:13 AM RECORDING MONITORING Unspecified atrial flutter with Provider Comments: Unspecified Atrial Flutter IHE Encounter Template Text not used by [place] Assessments - Encounter Diagnoses This section includes the primary and secondary diagnoses documented for the Encounter. Date/Time Primary/Secondary Diagnosis Name Provider Source Diagnosis April 04, 2022 PRIMARY Unspecified ARMIDA SWANSON [facility] 08:24 AM atrial flutter [facility] Plan of Treatment: Future Appointments (+ 6 months) and Future Tests (+/- 45 days) The Plan of Treatment section includes future care activities for the patient [facility] [place] [facility] This section includes future appointments and future orders which are active, pending orscheduled.Future Appointments This section includes appointments that were scheduled to occur 6 months from the date of the Encounter, up to a maximum of 20 appointments. The data comes from all [place] treatment [facility]. Appointment Date/Time Appointment Type Appointment Facili ty Name April 10, 2022 11:00 AM AMBULATORY - MEDICINE [facility] April 10, 2022 11:30 AM AMBULATORY - MEDICINE [facility] April 12, 2022 08:30 AM AMBULATORY MEDICINE [facility] May 07, 2022 09:00 AM AMBULATORY - MEDICINE [facility] May 15, 2022 10:30 AM AMBULATORY - MEDICINE [facility] May 15, 2022 10:40 AM AMBULATORY MEDICINE [facility] May 15, 2022 11:30 AM AMBULATORY [facility] May 15, 2022 01:00 PM AMBULATORY - MEDICINE [facility] May 15, 2022 01:45 PM AMBULATORY - NONE [facility] Jun 19, 2022 01:15 PM AMBULATORY - NONE [facility] Jun 24, 2022 05:53 PM AMBULATORY - MEDICINE [facility] Jul 12, 2022 09:20 AM AMBULATORY - SURGERY [facility] Jul 19, 2022 08:00 AM AMBULATORY - MEDICINE [facility] Jul 19, 2022 09:00 AM AMBULATORY - MEDICINE [facility] Active, Pending, and Scheduled Orders This section includes a listing of several types of active, pending, and scheduled orders, including clinic medications orders, diagnostic test orders, procedure orders and consult orders; where the start date of the order is 45 days before the date of the Encounter or 45 days after the date of the Encounter. The data comes from all [place] treatment [facility]. Test Date/Time Test Type Test Details Facility Name May 15, 2022 12:00 Laboratory - COVID-19 AND FLU/RSV DIAG [facility] AM Chemistry Order PANEL(CEPHEID) NASOPHARYNGEAL SWAB STAT WC ONCE Social History: Smoking Status (Most current) and Tobacco Use (All prior to encounter date) This section includes the most current, and the historical, smoking and tobacco-related health factors from the [place] facility where the Encounter took place.Current Smoking Status This section includes the most current smoking, or tobacco-related health factor, from the [place] facility where the Encounter took place. Date/Time Current Smoking Status Comment Facility Mar 05, 2022 01:30 PM VA-TOBACCO FORMER USER [facility] Tobacco Use History This section includes a history of the smoking, or tobacco- related health factors, that were collected on or before the date of the Encounter. The data comes from the [place] facility where the Encounter took place. Date/Time Smoking Status/Tobacco Use Comment Facil it Mar 05, 2022 01:30 PM VA-TOBACCO QUIT 1 TO < [address] [facility] Jun 01, 2021 02:00 PM [facility] Dec 31, 2019 10:54 AM VA-TOBACCO FORMER USER [facility] Dec 31, 2019 10:54 AM VA-TOBACCO QUIT < 1 YEAR M [facility] March 23, 2019 09:53 AM VA-TOBACCO FORMER USER [facility] March 23, 2019 09:53 AM VA-TOBACCO QUIT < 1 YEAR M [facility] Jun 10, 2018 10:00 AM CURRENT TOBACCO USER [facility] May 10, 2018 07:27 PM IN[place] [facility]AC[place] [facility]SEL[facility] May 10, 2018 07:27 PM [facility] Aug 29, 2017 09:55 AM FORMER TOBACCO USE <1Y [facility] May 26, 2017 10:51 PM [facility] May 26, 2017 10:51 PM INPT [place]BACCO [place] [facility] May 03, 2017 09:34 PM IN[facility] May 03, 2017 09:34 PM INPT TOBACCO US[place] [facility] Sep 18, 2016 01:36 PM FORMER TOBACCO USE <1Y [facility] Aug 10, 2016 03:54 PM INPT TOBACCO USE - PT REFUSED [facility] Aug 01, 2016 06:48 PM [facility] Aug 01, 2016 06:48 PM INPT [place]BACCO US[place] [facility] Feb 08, 2015 09:57 AM CURRENT TOBACCO USER [facility] [facility] Nov 29, 2013 10:37 AM CURRENT TOBACCO USER [facility] [facility] Nov 26, 2013 11:09 AM PATIENT [place] TOBACCO USER [place] [facility] Nov 27, 2012 12:12 PM CURRENT TOBACCO USER [place] [facility] Dec 27, 2011 09:44 AM CURRENT TOBACCO USER [place] [facility] Jan 22, 2011 02:38 PM CURRENT TOBACCO USER [facility] Mar 13, 2010 12:48 PM CURRENT TOBACCO USER [facility] Advance Directives: All historical and current Section Date Range: From patient's date of to the date document was created. This section includes ALL of a patient's completed or amended [place] Advance and Rescinded Directives. The entries below indicate that a directive exists for the patient, but an actual copy is not included with this document. The data comes from all [facility]. Date Advance Directives Provider Source Feb 25, 2018 ADVANCE DIRECTIVE [facility] MORALES [facility] Feb 24, 2018 ADVANCE DIRECTIVE DISCUSSION AURORA MORALES [facility] May 26, 2017 CLINICAL WARNING MAGO CONTRERAS [facility] May 03, 2017 CLINICAL WARNING SARIAH ENGLE [facility] Aug 10, 2016 CLINICAL WARNING ISABEL BARCENAS [facility] Aug 02, 2016 CLINICAL WARNING AURORA ALMAZAN [facility] Encounter Notes: All associated encounter notes This section contains the clinical notes associated to the Encounter. Date/Time Encounter Note(s) Provider Source April 04, 2022 08:13 AM CARDIOLOGY DIAGNOSTIC STUDY CONSULT: ARMIDA SWANSON [facility] LOCAL TITLE: EKG CONSULT STANDARD TITLE: CARDIOLOGY DIAGNOSTIC STUDY CONS ULT DATE OF NOTE: APRIL 04, 2022@08:13 ENTRY DATE: APRIL 04, 2022@08:13:09 AUTHOR: ARMIDA SWANSON EXP COSIGNER: URGENCY: STATUS: COMPLETED Event monitor ([employer]) ECG REPORT 14 day heart monitor March 12 to March 26, 2022 INDICATION: Multifocal atrial tachycardia HEART RATE IN SINUS RHYTHM MIN 45 AVERAGE 84 MAX 115 PVC% <1% PAC% 8.3% INTERPRETATION 1. The underlying rhythm is sinus 2. There was 1 patient reported event associated with sinus rhythm and PACs 3. There were 4 episodes of nonsustained VT, the longest was 7 beats 4. Paroxysmal atrial arrhythmias are present, ov erall burden 31% - unclear if these episodes represent atrial fibrillation wi th rapid ventricular response, atrial flutter, or atrial tachycardia with block -Average heart rate in atrial arrhythmia was 14 0, range 64-237 -There were over thousand brief episodes of atr ial arrhythmia, 57 episodes lasted 6 minutes or longer, the longest episode lasted 13 hours 39 minutes 5. There were frequent PACs with an overall hilary en of 8.1% /es/ ARMIDA SWANSON MD PHYSICIAN Signed: 04/04/2022 08:24
--- OUTSIDE RECORDS SUMMARY | 2022-06-25 19:37 | XMS_ITS | Encounter Summary ---
:1950 Author Organization Department [facility] Address [address] [place] [address] Support Name Relationship Address Phone MADELIN MANTILLA Unavailable [address] [phone] [place] [address] MADELIN MANTILLA Unavailable [address] [phone] [place] [address] DHAVAL MANTILLA Unavailable [address] [place] [address] Insurance Providers: All historical and current Section [...] MEDICARE MEDICARE PART Jul 18, PART B [id number] 800 ANNALEE BRYANIENT (WNR) (M) B 2014A [phone] ,REGI MEDICARE MEDICARE PART Apr 17, PART A [id number] 800 ANNALEE BRYANIENT (WNR) (M) A 2012A [phone] ,REGI Selected Encounter This section includes the information on record at [place] for the Encounter. Date/Time Encounter Type Encounter Description Reason Provider Source May 03, 2022 04:48 Outpatient Encounter GI ENDOSCOPY PM IHE Encounter Template Text not used by [place] Plan of Treatment: Future Appointments (+ 6 months) and Future Tests (+/- 45 days) The Plan of Treatment section includes future care activities for the patient from all [place] treatmentfacilities. This section includes future appointments and future orders which are active, pending orscheduled.Future Appointments This section includes appointments that were scheduled to occur 6 months from the date of the Encounter, up to a maximum of 20 appointments. The data comes from all [place] treatment facilities. Appointment Date/Time Appointment Type Appointment Facili ty Name May 07, 2022 09:00 AM AMBULATORY - MEDICINE [facility] May 15, 2022 10:30 AM AMBULATORY - MEDICINE [facility] May 15, 2022 10:40 AM AMBULATORY - MEDICINE [facility] May 15, 2022 11:30 AM AMBULATORY - MEDICINE [facility] May 15, 2022 01:00 PM AMBULATORY - MEDICINE [facility] May 15, 2022 01:45 PM AMBULATORY - NONE [facility] Jun 19, 2022 01:15 PM AMBULATORY - NONE [facility] Jun 24, 2022 05:53 PM AMBULATORY - MEDICINE [facility] Jul 12, 2022 09:20 AM AMBULATORY - SURGERY [facility] Jul 19, 2022 08:00 AM AMBULATORY - MEDICINE [facility] Jul 19, 2022 09:00 AM AMBULATORY - MEDICINE [facility] Active, Pending, and Scheduled Orders This section includes a listing of several types of active, pending, and scheduled orders, including clinic medications orders, diagnostic test orders, procedure orders and consult orders; where the start date of the order is 45 days before the date of the Encounter or 45 days after the date of the Encounter. The data comes from all [place] treatment [facility]. Test Date/Time Test Type Test Details Facility Name May 15, 2022 12:00 Laboratory - COVID-19 AND FLU/RSV DIAG [facility] AM Chemistry Order PANEL(CEPHEID) NASOPHARYNGEAL SWAB STAT WC ONCE Lab Results: +/- 30 days of the encounter This section includes the Chemistry and Hematology Lab Results on record with [place] for the patient. Radiology Reports and Pathology Reports are provided separately, in subsequent sections.Lab Results This section contains the Chemistry/Hematology Results that were resulted 30 days before or 30 daysafter the date of the Encounter. Date/Time Source Result Type Result - Unit Interpretation Reference Range Comment May 15, 2022 10:57 [facility] TSH W/REFLEX TO FREE Spec imen Type: PLASMA AM T4 No comment enter ed. Ordering Provid er: ROSY FAITH Report Released Date/Time: April 11, 2022 12:04 PM Reporting Lab: [facility] [address] [facility] [address] Performing Lab: [facility] [address] [facility] [address] TSH 3.03 0.35-4.94 May 15, 2022 [facility] COMPREHENSIVE METABOLIC Spec imen Type: PLASMA 10:57 AM PANEL+MG No comment enter ed. Ordering Provid er: ROSY FAITH Report Released Date/Time: April 11, 2022 12:04 PM Reporting Lab: [facility] [address] [facility] [address] Performing Lab: [facility] [address] [facility] [address] CREATININE 1.2 0.7-1.2 UREA NITROGEN 25 8-26 [...] smoking and tobacco-related health factors from the [place] facility where the Encounter took place.Current Smoking Status This section includes the most current smoking, or tobacco-related health factor, from the [place] facility where the Encounter took place. Date/Time Current Smoking Status Comment Facility Mar 05, 2022 01:30 PM VA-TOBACCO FORMER USER [facility] Tobacco Use History This section includes a history of the smoking, or tobacco- related health factors, that were collected on or before the date of the Encounter. The data comes from the [place] facility where the Encounter took place. Date/Time Smoking Status/Tobacco Use Comment Katherine tapia Mar 05, 2022 01:30 PM VA-TOBACCO QUIT 1 TO < 5 YRS [facility] Jun 01, 2021 02:00 PM VA-TOBACCO NEVER USED MINLinda SANTOSPOLDAVID [facility] Dec 31, 2019 10:54 AM VA-TOBACCO FORMER USER [facility] Dec 31, 2019 10:54 AM VA-TOBACCO QUIT < 1 YEAR M BARRYEAROSMERY [facility] March 23, 2019 09:53 AM VA-TOBACCO FORMER USER [facility] March 23, 2019 09:53 AM VA-TOBACCO QUIT < 1 YEAR M NATHALIAPOLIS [facility] Jun 10, 2018 10:00 AM CURRENT TOBACCO USER LAWSON HUMPHRIESLIS [facility] May 10, 2018 07:27 PM INPT TOBACCO COUNSELING [place] MARTIREAPOLIS [facility] May 10, 2018 07:27 PM INPT TOBACCO USER LAWSONAPO GERDA [facility] Aug 29, 2017 09:55 AM FORMER TOBACCO USE <1Y [facility] May 26, 2017 10:51 PM INPT TOBACCO COUNSELING [place]ART[place] [facility] May 26, 2017 10:51 PM INPT TOBACCO USER LAWSONAPO LIS [facility] May 03, 2017 09:34 PM INPT TOBACCO COUNSELING [place] [facility] May 03, 2017 09:34 PM INPT TOBACCO USER LAWSONAPO [facility] Sep 18, 2016 01:36 PM FORMER TOBACCO USE <1Y [facility] Aug 10, 2016 03:54 PM INPT TOBACCO USE - PT REFUSED [facility] Aug 01, 2016 06:48 PM INPT TOBACCO COUNSEL[facility] Aug 01, 2016 06:48 PM INPT TOBACCO USER CAROLYNO [facility] Feb 08, 2015 09:57 AM CURRENT TOBACCO USER LAWSON HUMPHRIESS [facility] Nov 29, 2013 10:37 AM CURRENT TOBACCO USER [facility] Nov 26, 2013 11:09 AM PATIENT IS TOBACCO USER ANAID EPPSPOLDAVID [facility] Nov 27, 2012 12:12 PM CURRENT [facility]ACCO [facility] Dec 27, 2011 09:44 AM CURRENT TOBACCO USER [facility] Jan 22, 2011 02:38 PM CURRENT [facility]ACCO [facility]ER [facility] Mar 13, 2010 12:48 PM CUR[facility]ACCO [facility] Advance Directives: All historical and current Section Date Range: From patient's date of to the date document was created. This section includes ALL of a patient's completed or amended [place] Advance and Rescinded Directives. The entries below indicate that a directive exists for the patient, but an actual copy is not included with this document. The data comes from all [place] facilities. Date Advance Directives Provider Source Feb 25, 2018 ADVANCE DIRECTIVE AURORA MORALES [facility] Feb 24, 2018 ADVANCE DIRECTIVE DISCUSSION AURORA MORALES [facility] May 26, 2017 CLINICAL WARNING MAGO CONTRERAS [facility] May 03, 2017 CLINICAL WARNING SARIAH ENGLE [facility] Aug 10, 2016 CLINICAL WARNING ISABEL BARCENAS [facility] Aug 02, 2016 CLINICAL WARNING AURORA ALMAZAN [facility] Radiology Reports: +/- 30 days of the [...] the Encounter. The data comes from all [place] treatment facilities. Date/Time Radiology Report Provider Source May 15, 2022 01:23 PM CHEST 2 VIEWS PA AND LAT: DARIEN HERNANDEZ [facility] REGI MANTILLA KRISTOFER [id number] -APR 28, 194 8 M Exm Date: MAY 15, 2022@13:23 Req Phys: ROSY FAITH Pat Loc: [facility] CARDIAC E P MARCELL 3D (Req Img Loc: MAIN X-RAY Service: Unknown (Case [id number] COMPLETE) CHEST 2 VIEWS PA AND LAT (R AD Detailed) CPT:43334 Reason for Study: cough, SOB x 2 months; evalua te for edema/infiltrate Clinical History: [place] IS NOT under investigation for COVID-19 or is COVID-19 negative cough, SOB x 2 months Responsible provider name and phone number to notify for critical findings if other than user placing the order and pager listed below: User placing orders pager: [phone] LAST CREATININE 1.2 (05/15/22) Report Status: Verified Date Reported: MAY 15, 2022 Date Verified: MAY 15, 2022 Installer Technician E-Sig:/ES/DARIEN HERNANDEZ MD Report: CHEST 2 VIEWS [...] Primary Interpreting Staff: DARIEN HERNANDEZ MD, RADIOLOGIST (Installer Technician) /CDC Pathology Reports: +/- 30 days of [...] the Encounter. The data comes from all [place] treatment facilities. Date/Time Pathology Report Provider Source May 08, 2022 06:46 PM LR SURGICAL PATHOLOGY REPORT: SARAH MEDEL [facility] LOCAL TITLE: LR SURGICAL PATHOLOGY REPORT STANDARD TITLE: PATHOLOGY REPORT DATE OF NOTE: MAY 08, 2022@18:46:34 ENTRY DATE: MAY 08, 2022@18:46:34 AUTHOR: SARAH MEDEL EXP COSIGNER: URGENCY: STATUS: COMPLETED $APHDR Reporting Lab: [facility] [CLIA# [id number]] [place] [address] - - - - - - - [...] - - - PATHOLOGY REPORT Accession No. -[id number] - - - - - [...] Pathology Report Performed By: [facility] [CLIA# [id number]] [place] [address] $FTR - - - - - - - - - - - - - - - - - - - - - - - - - - - - - - - - - - - - - - - - (End of report) SARAH MEDEL MD [facility] Date May 08, 2022 - - - - - - - - - - - - - - - - - - - - - - - - - - - - - - - - - - - - - - - - REGI MANTILLA STANDARD FORM 515 ID:[id number] SEX:M :1950 AGE: 72 LOC: 1153 PCP: Preet Anderson MD /mikal/ SARAH MEDEL MD STAFF PATHOLOGIST, PATHOLOGY & LABORATORY MED C Signed: 05/08/2022 18:46
--- OUTSIDE RECORDS SUMMARY | 2022-06-25 19:37 | XMS_ITS | Encounter Summary ---
:1950 Author Organization [facility] Address [address] [place] [address] Support Name Relationship Address Phone MADELIN MANTILLA Unavailable [address] [phone] [place] [address] MADELIN MANTILLA Unavailable [address] [phone] [place] [address] DHAVAL MANTILLA Unavailable [address] [place] [address] Insurance Providers: All historical and current Section [...] MEDICARE MEDICARE PART Jul 18, PART B [id number] 800 ANNALEE BRYANIENT (WNR) (M) B 2014A [phone] ,REGI MEDICARE MEDICARE PART Apr 17, PART A [id number] 800 ANNALEE BRYANIENT (WNR) (M) A 2012 [id number] ,REGI Selected Encounter This section includes the information on record at [place] for the Encounter. Date/Time Encounter Type Encounter Reason Provider Source Description May 15, 2022 HEMOGLOBIN PULMONARY ICD-10-CM I48.0 MARCELO BARRIENTOS 10:40 AM FUNCTION Paroxysmal atrial JOSE ALBERTO K fibrillation with Provider Comments: Paroxysmal atrial fibrillation ([facility] [id number]) IHE Encounter Template Text not used by [place] Assessments - Encounter Diagnoses This section includes the primary and secondary diagnoses documented for the Encounter. Date/Time Primary/Secondary Diagnosis Name Provider Source Diagnosis May 15, 2022 PRIMARY Paroxysmal atrial GABI GALEAS [place] 10:58 AM BERTRAND freed [facility] Plan of Treatment: Future Appointments (+ 6 months) and Future Tests (+/- 45 days) The Plan of Treatment section includes future care activities for the patient from all [place] [facility]. This section includes future appointments and future orders which are active, pending orscheduled.Future Appointments This section includes appointments that were scheduled to occur 6 months from the date of the Encounter, up to a maximum of 20 appointments. The data comes from all [facility]. Appointment Date/Time Appointment Type Appointment Facili ty Name Jun 19, 2022 01:15 PM AMBULATORY - NONE [facility] Jun 24, 2022 05:53 PM AMBULATORY - MEDICINE [facility] Jul 12, 2022 09:20 AM AMBULATORY - SURGERY [facility] Jul 19, 2022 08:00 AM AMBULATORY - MEDICINE [facility] Jul 19, 2022 09:00 AM AMBULATORY - MEDICINE [facility] Active, Pending, and Scheduled Orders This section includes a listing of several types of active, pending, and scheduled orders, including clinic medications orders, diagnostic test orders, procedure orders and consult orders; where the start date of the order is 45 days before the date of the Encounter or 45 days after the date of the Encounter. The data comes from all [facility]. Test Date/Time Test Type Test Details Facility Name May 15, 2022 12:00 Laboratory - COVID-19 AND FLU/RSV DIAG [facility] AM Chemistry Order PANEL(CEPHEID) NASOPHARYNGEAL SWAB STAT ONCE Jun 24, 2022 06:55 Laboratory - EXTRA BLUE TUBE PLASMA WC [facility] PM Chemistry Order Jun 24, 2022 06:55 Laboratory - EXTRA GOLD GEL TUBE SERUM [facility] PM Chemistry Order Jun 24, 2022 06:55 Laboratory - EXTRA PURPLE TUBE BLOOD [facility] PM Chemistry Order Jun 24, 2022 06:55 Laboratory - EXTRA MINT TUBE PLASMA WC [facility] PM Chemistry Order Jun 25, 2022 03:59 Consult Order PROSTHETICS REQUEST Cons VILLA MAHER [facility] PM [facility] Lab Results: +/- 30 days of the encounter This section includes the Chemistry and Hematology Lab Results on record with [place] for the patient. Radiology Reports and Pathology Reports are provided separately, in subsequent sections.Lab Results This section contains the Chemistry/Hematology Results that were resulted 30 days before or 30 daysafter the date of the Encounter. Date/Time Source Result Type Result - Unit Interpretation Reference Range Comment May 15, 2022 10:57 [facility] TSH W/REFLEX TO FREE Spec imen Type: PLASMA AM T4 No comment enter ed. Ordering Provid er: ROSY FAITH Report Released Date/Time: April 11, 2022 12:04 PM Reporting Lab: [facility] [address] [facility] [address] Performing Lab: [facility] DAIJA [facility] [address] TSH 3.03 0.35-4.94 May 15, 2022 [facility] COMPREHENSIVE METABOLIC Spec imen Type: PLASMA 10:57 AM PANEL+MG No comment enter ed. Ordering Provid er: ROSY FAITH Report Released Date/Time: April 11, 2022 12:04 PM Reporting Lab: [facility] [address] [facility] [address] Performing Lab: [facility] [address] CREATININE 1.2 0.7-1.2 UREA NITROGEN 25 8-26 GLUCOSE 105 H 74-100 SODIUM 139 136-145 POTASSIUM 4.7 3.5-5.1 CHLORIDE 104 98-107 CO2 26 22-29 CALCIUM 9.5 8.4-10.2 PROTEIN,TOTAL 7.2 6.0-8.3 ALBUMIN 4.2 3.5-5.2 BILIRUBIN, TOTAL 0.5 0.2-1.2 MAGNESIUM 1.8 1.6-2.6 ANION GAP 9 5-15 ALKALINE PHOSPHATASE 55 40-150 ALT/SGPT 19 <55 AST/SGOT 28 <34 CREAT EGFR(CKD-EPI) 63 >60 Vital Signs: All taken on the encounter date This section contains inpatient and outpatient Vital Signs collected on the date of the Encounter. Date/Time Temperature Pulse Blood Respiratory SP02 Pain Height Weight Marcus dy Source Pressure Rate Mass Index May 15 F 63 120/77 16 /min 94 % 0 61.811 123.9 23 [place] 2021 12:50 /min mm[Hg] in lb IS [facility] Social History: Smoking Status (Most [...] 2022 01:30 PM VA-TOBACCO FORMER USER [facility] Tobacco Use History This section includes a history of the smoking, or tobacco- related health factors, that were collected on or before the date of the Encounter. The data comes from the [place] facility where the Encounter took place. Date/Time Smoking Status/Tobacco Use Comment Facil it Mar 05, 2022 01:30 PM VA-TOBACCO QUIT 1 TO < 5 YRS [facility] Jun 01, 2021 02:00 PM [facility] Dec 31, 2019 10:54 AM VA-TOBACCO FORMER USER [facility] Dec 31, 2019 10:54 AM [facility] < [facility] March 23, 2019 09:53 AM VA-TOBACCO FORMER USER [facility] March 23, 2019 09:53 AM [facility]-TOBACCO QU[facility] < [facility] Jun 10, 2018 10:00 AM CURRENT TOBACCO USER [facility] May 10, 2018 07:27 PM INPT TOBACCO COUNSELING [place] [facility] May 10, 2018 07:27 PM [facility] Aug 29, 2017 09:55 AM FORMER TOBACCO USE <1Y [facility] May 26, 2017 10:51 PM [facility] May 26, 2017 10:51 PM INPT [place] [facility] May 03, 2017 09:34 PM INPT TOBACCO COUNSELING [place] [facility] May 03, 2017 09:34 PM INPT [place]ACCO [place] [facility] Sep 18, 2016 01:36 PM FORMER TOBACCO USE <1Y [facility] Aug 10, 2016 03:54 PM INPT TOBACCO USE - PT REFUSED [facility] Aug 01, 2016 06:48 PM [facility] Aug 01, 2016 06:48 PM INPT [place]ACCO [place] [facility] Feb 08, 2015 09:57 AM CURRENT TOBACCO USER [facility] Nov 29, 2013 10:37 AM CURRENT TOBACCO USER [facility] Nov 26, 2013 11:09 AM PATIENT IS TOBACCO USER [place] [facility] Nov 27, 2012 12:12 PM CURRENT TOBACCO USER [facility] Dec 27, 2011 09:44 AM CURRENT TOBACCO USER [facility] Jan 22, 2011 02:38 PM CURRENT TOBACCO USER [facility] Mar 13, 2010 12:48 PM CURRENT TOBACCO USER [facility] Advance Directives: All historical and current Section Date Range: From patient's date of to the date document was created. This section includes ALL of a patient's completed or amended [place] Advance and Rescinded Directives. The entries below indicate that a directive exists for the patient, but an actual copy is not included with this document. The data comes from all [facility]. Date Advance Directives Provider Source Feb 25, 2018 ADVANCE DIRECTIVE ANDREW,AURORA Arias [facility] Feb 24, 2018 ADVANCE DIRECTIVE DISCUSSION ARUORA MORALES [facility] May 26, 2017 CLINICAL WARNING MAGO CONTRERAS [facility] May 03, 2017 CLINICAL WARNING SARIAH ENGLE [facility] Aug 10, 2016 CLINICAL WARNING ISABEL BARCENAS [facility] Aug 02, 2016 CLINICAL WARNING AURORA ALMAZAN [facility] Radiology Reports: +/- 30 days of [...] the Encounter. The data comes from all [facility] facilities. Date/Time Radiology Report Provider Source May 15, 2022 01:23 PM CHEST 2 VIEWS PA AND LAT: DARIEN HERNANDEZ [facility] REGI MANTILLA KRISTOFER [id number] -APR 28, 194 8 M Exm Date: MAY 15, 2022@13:23 Req Phys: ROSY FAITH Pat Loc: [facility] CARDIAC E P MARCELL 3D (Req Img Loc: MAIN X-RAY Service: Unknown (Case [id number] COMPLETE) CHEST 2 VIEWS PA AND LAT (R AD Detailed) CPT:38525 Reason for Study: cough, SOB x 2 months; evalua te for edema/infiltrate Clinical History: [place] IS NOT under investigation for COVID-19 or is COVID-19 negative cough, SOB x 2 months Responsible provider name and phone number to notify for critical findings if other than user placing the order and pager listed below: User placing orders pager: [phone] LAST CREATININE 1.2 (05/15/22) Report Status: Verified Date Reported: MAY 15, 2022 Date Verified: MAY 15, 2022 Charge Histotechnologist E-Sig:/ES/DARIEN HERNANDEZ MD Report: CHEST 2 VIEWS [...] Primary Interpreting Staff: DARIEN HERNANDEZ MD, RADIOLOGIST (Charge Histotechnologist) /CDC Pathology Reports: +/- 30 days of [...] the Encounter. The data comes from all [place] treatment facilities. Date/Time Pathology Report Provider Source May 08, 2022 06:46 PM LR SURGICAL PATHOLOGY REPORT: SARAH MEDEL [facility] LOCAL TITLE: LR SURGICAL PATHOLOGY REPORT STANDARD TITLE: PATHOLOGY REPORT DATE OF NOTE: MAY 08, 2022@18:46:34 ENTRY DATE: MAY 08, 2022@18:46:34 AUTHOR: SARAH MEDEL EXP COSIGNER: URGENCY: STATUS: COMPLETED $APHDR Reporting Lab: [facility] [CLIA# [id number]] [place] [address] - - - - - - - [...] Submitted by: MALINI THAO Date obtained: Venecia 2021 - - - - - - [...] Performing Laboratory: Surgical Pathology Report Performed By: [facility] [CLIA# [id number]] [place] [address] $FTR - - - - - - [...] - - REGI MANTILLA STANDARD FORM 515 ID:[id number] SEX:M :1950 AGE: 72 LOC: 1153 PCP: Preet Anderson MD /mikal/ SARAH MEDEL MD STAFF PATHOLOGIST, PATHOLOGY & LABORATORY MED SV C Signed: 05/08/2022 18:46
--- OUTSIDE RECORDS SUMMARY | 2022-06-25 19:37 | XMS_ITS | Encounter Summary ---
:1950 Author Organization [facility] Address [address] [place] [address] Support Name Relationship Address Phone MADELIN MANTILLA Unavailable [address] [phone] [place] [address] MADELIN MANTILLA Unavailable [address] [phone] [place] [address] DHAVAL MANTILLA Unavailable [address] [place] [address] Insurance Providers: All historical and current Section [...] MEDICARE MEDICARE PART Jul 18, PART B [id number] ANNALEE BUSTILLO (WNR) (M) B 2014A [phone] ,REGI MEDICARE MEDICARE PART Apr 17, PART A [id number] ANNALEE BUSTILLO (WNR) (M) A 2012A [phone] ,REGI Selected Encounter This section includes the information on record at CT for the Encounter. Date/Time Encounter Type Encounter Reason Provider Source Description May 01, 2022 HC PRO PHONE TELEPHONE/ANCILLA ICD-10-CM Z71.89 HUSEYIN ARCOS 01:31 PM CALL 11-20 MIN RY Other specified counseling with Provider Comments: Other specified Counseling IHE Encounter Template Text not used by CT Assessments - Encounter Diagnoses This section includes the primary and secondary diagnoses documented for the Encounter. Date/Time Primary/Secondary Diagnosis Name Provider Source Diagnosis May 01, 2022 PRIMARY Other specified JACQUELYN ARCOS CT 01:31 PM counseling [facility] Plan of Treatment: Future Appointments (+ 6 months) and Future Tests (+/- 45 days) The Plan of Treatment section includes future care activities for the patient from all [facility]. This section includes future appointments and future orders which are active, pending orscheduled.Future Appointments This section includes appointments that were scheduled to occur 6 months from the date of the Encounter, up to a maximum of 20 appointments. The data comes from all [facility] [address]. Appointment Date/Time Appointment Type Appointment Facili ty [...] 15, 2022 01:45 PM AMBULATORY - NONE [facility] Jun 19, 2022 01:15 PM AMBULATORY - NONE [facility] Jun 24, 2022 05:53 PM AMBULATORY - MEDICINE [facility] Jul 12, 2022 09:20 AM AMBULATORY - SURGERY [facility] Jul 19, 2022 08:00 AM AMBULATORY - MEDICINE [facility] Jul 19, 2022 09:00 AM AMBULATORY - MEDICINE [facility] Active, Pending, and Scheduled Orders This section includes a listing of several types of active, pending, and scheduled orders, including clinic medications orders, diagnostic test orders, procedure orders and consult orders; where the start date of the order is 45 days before the date of the Encounter or 45 days after the date of the Encounter. The data comes from all [facility] [address]. Test Date/Time Test Type Test Details Facility Name May 15, 2022 12:00 Laboratory - COVID-19 AND FLU/RSV DIAG [facility] AM Chemistry Order PANEL(CEPHEID) NASOPHARYNGEAL SWAB STAT WC ONCE Lab Results: +/- 30 days of the encounter This section includes the Chemistry and Hematology Lab Results on record with CT for the patient. Radiology Reports and Pathology Reports are provided separately, in subsequent sections.Lab Results This section contains the Chemistry/Hematology Results that were resulted 30 days before or 30 daysafter the date of the Encounter. Date/Time Source Result Type Result - Unit Interpretation Reference Range Comment May 15, 2022 10:57 [facility] TSH W/REFLEX TO FREE Spec imen Type: PLASMA AM T4 No comment enter ed. Ordering Provid er: ROSY FAITH Report Released Date/Time: April 11, 2022 12:04 PM Reporting Lab: [facility] [address] [facility] [address] Performing Lab: [facility] [address] [facility] [address] TSH 3.03 0.35-4.94 May 15, 2022 [facility] COMPREHENSIVE METABOLIC Spec imen Type: PLASMA 10:57 AM PANEL+MG No comment enter ed. Ordering Provid er: ROSY FAITH Report Released Date/Time: April 11, 2022 12:04 PM Reporting Lab: [facility] [address] [facility] [address] Performing Lab: [facility] [address] CREATININE 1.2 0.7-1.2 UREA NITROGEN 25 8-26 [...] smoking and tobacco-related health factors from the CT facility where the Encounter took place.Current Smoking Status This section includes the most current smoking, or tobacco-related health factor, from the CT facility where the Encounter took place. Date/Time Current Smoking Status Comment Facility Mar 05, 2022 01:[address] Tobacco Use History This section includes a history of the smoking, or tobacco- related health factors, that were collected on or before the date of the Encounter. The data comes from the CT facility where the Encounter took place. Date/Time Smoking Status/Tobacco Use Comment Katherine gillis Mar 05, 2022 01:[address]-TOBACCO QUIT 1 TO < 5 YRS [facility] Jun 01, 2021 02:00 PM [place]-TOBACCO NEVER USED [place] [facility] Dec 31, 2019 10:54 AM VA-TOBACCO FORMER USER [facility] Dec 31, 2019 10:54 AM VA-TOBACCO QUIT < [address] March 23, 2019 09:53 AM VA-TOBACCO FORMER USER [facility] March 23, 2019 09:53 AM VA-TOBACCO QUIT < [address] [place] [facility] Jun 10, 2018 10:00 AM CURRENT TOBACCO USER [place] [facility] May 10, 2018 07:27 PM INPT TOBACCO COUNSELING [place] [facility] May 10, 2018 07:27 PM INPT [place]AC[place] [facility] Aug 29, 2017 09:55 AM FORMER TOBACCO USE <1Y [facility] May 26, 2017 10:51 PM INPT TOBACCO COUNSELING [place] [facility] May 26, 2017 10:51 PM INPT TOBACCO [place] [facility] [facility] May 03, 2017 09:34 PM INPT TOBACCO COUNSELING [place] [facility] May 03, 2017 09:34 PM INPT TOBACCO [place] [facility] Sep 18, 2016 01:36 PM FORMER TOBACCO USE <1Y [facility] Aug 10, 2016 03:54 PM INPT TOBACCO USE - PT REFUSED [facility] Aug 01, 2016 06:48 PM [facility] Aug 01, 2016 06:48 PM INPT TOBACCO [facility] [facility] Feb 08, 2015 09:57 AM CURRENT [facility]BACCO [facility] Nov 29, 2013 10:37 AM CURRENT [facility]BACCO USER [facility] Nov 26, 2013 11:09 AM PATIENT IS TOBACCO USER [place] [facility] Nov 27, 2012 12:12 PM CURRENT TOBACCO USER [facility] Dec 27, 2011 09:44 AM CURRENT TOBACCO US[facility] Jan 22, 2011 02:38 PM CURRENT TOBACCO US[facility] Mar 13, 2010 12:48 PM CURRENT TOBACCO US[facility] Advance Directives: All historical and current Section Date Range: From patient's date of to the date document was created. This section includes ALL of a patient's completed or amended CT Advance and Rescinded Directives. The entries below indicate that a directive exists for the patient, but an actual copy is not included with this document. The data comes from all [facility]. Date Advance Directives Provider Source Feb 25, 2018 ADVANCE DIRECTIVE AURORA MORALES [facility] Feb 24, 2018 ADVANCE DIRECTIVE DISCUSSION AURORA MORALES [facility] May 26, 2017 CLINICAL WARNING MAGO CONTRERAS [facility] May 03, 2017 CLINICAL WARNING SARIAH ENGLE [facility] Aug 10, 2016 CLINICAL WARNING ISABEL BARCENAS [facility] Aug 02, 2016 CLINICAL WARNING AURORA ALMAZAN [facility] Radiology Reports: +/- 30 days of the [...] the Encounter. The data comes from all CT treatment facilities. Date/Time Radiology Report Provider Source May 15, 2022 01:23 PM CHEST 2 VIEWS PA AND LAT: DARIEN HERNANDEZ [facility] REGI MANTILLA KRISTOFER [id number] -APR 28, 194 8 M Exm Date: MAY 15, 2022@13:23 Req Phys: ROSY FAITH Pat Loc: [facility] CARDIAC E P MARCELL 3D (Req Img Loc: MAIN X-RAY Service: Unknown (Case [id number] COMPLETE) CHEST 2 VIEWS PA AND LAT (R AD Detailed) CPT:23872 Reason for Study: cough, SOB x 2 months; evalua te for edema/infiltrate Clinical History: IS NOT under investigation for COVID-19 or is COVID-19 negative cough, SOB x 2 months Responsible provider name and phone number to notify for critical findings if other than user placing the order and pager listed below: User placing orders pager: [phone] LAST CREATININE 1.2 (05/15/22) Report Status: Verified Date Reported: MAY 15, 2022 Date Verified: MAY 15, 2022 [employer] E-Sig:/ES/DARIEN HERNANDEZ MD Report: CHEST 2 VIEWS [...] Primary Interpreting Staff: DARIEN HERNANDEZ MD, RADIOLOGIST (Civil Process Server) /CDC Pathology Reports: +/- 30 days of [...] the Encounter. The data comes from all CT treatment facilities. Date/Time Pathology Report Provider Source May 08, 2022 06:46 PM LR SURGICAL PATHOLOGY REPORT: SARAH MEDEL [facility] LOCAL TITLE: LR SURGICAL PATHOLOGY REPORT STANDARD TITLE: PATHOLOGY REPORT DATE OF NOTE: MAY 08, 2022@18:46:34 ENTRY DATE: MAY 08, 2022@18:46:34 AUTHOR: SARAH MEDEL EXP COSIGNER: URGENCY: STATUS: COMPLETED $APHDR Reporting Lab: [facility] [CLIA# [id number]] [place] [address] - - - - - - - [...] Performing Laboratory: Surgical Pathology Report Performed By: [facility] [CLIA# [id number]] [place] [address] $FTR - - - - - - [...] - - REGI MANTILLA STANDARD FORM 515 ID:[id number] SEX:M :1950 AGE: 72 LOC: 1153 PCP: Preet Anderson MD /mikal/ SARAH MEDEL MD STAFF PATHOLOGIST, PATHOLOGY & LABORATORY MED C Signed: 05/08/2022 18:46 Encounter Notes: All associated encounter notes This section contains the clinical notes associated to the Encounter. Date/Time Encounter Note(s) Provider Source May 01, 2022 01:31 PM GASTROENTEROLOGY NURSING OUTPATIENT NOTE: JACQUELYN ARCOS [facility] LOCAL TITLE: GI CLINIC NURSING NOTE STANDARD TITLE: GASTROENTEROLOGY NURSING OUTPATI ENT NOTE DATE OF NOTE: MAY 01, 2022@13:31 ENTRY DATE: MAY 01, 2022@13:31:35 AUTHOR: JACQUELYN ARCOS EXP COSIGNER: URGENCY: STATUS: COMPLETED GI PROCEDURE PATIENT TELEPHONE CONTACT NOTE Contacted patient. Colonoscopy 05/07/22 Patient indicates readiness to learn? Yes Instru ctions mailed to verified address in chart per patient request. The following was reviewed with the patient: --Date and time of procedure --Need for a non cdl driver if receiving sedation --Need to be monitored for minimum of 1/2 hour f or those patients with a diagnosed history of sleep apnea. Diagnosis of sleep apnea: No --Received prep from pharmacy: Igor Ivory um Citrate --Creatinine level is greater than or equal to 2 .0: No CREATININE 1.0 (03/05/22) 3 days before procedure: start low fiber diet2 d ays before procedure: start a clear liquid diet after your mid-day meal.Continue to drink clear liquids up to two hours before the procedure. --Verbalizes understanding about diet restrictio ns and NPO status for procedure. --Patient is on blood-thinners: Yes, specify: Apixaban Patient has contacted their clinic or primary p hysician regarding instructions on how to stop these medications: Yes Date stopped: Apr --Patient is a diabetic: No --Patient has Pacemaker or AICD: No --Understands need to take all heart and blood p ressure medications, in the morning, on the day of the procedure: Yes Confirm the patient will call [phone] or [phone] if they need to cancel for any reason --Any questions or patient concerns: None --Verbalizes understanding of all instructions /es/ JACQUELYN ARCOS STAFF NURSE Signed: 05/01/2022 13:33
--- OUTSIDE RECORDS SUMMARY | 2022-06-25 19:37 | XMS_ITS | Encounter Summary ---
:1950 Author Organization [facility] Address [address] [place] [id number] Support Name Relationship Address Phone MADELIN MANTILLA Unavailable [address] [phone] [place] [address] MADELIN MANTILLA Unavailable [address] [phone] [place] [address] DHAVAL MANTILLA Unavailable [address] [place] [address] Insurance Providers: All historical and current Section [...] MEDICARE MEDICARE PART Jul 18, PART B [id number] ANNALEE BUSTILLO (WNR) (M) B 2014A [phone] ,REGI MEDICARE MEDICARE PART Apr 17, PART A [id number] 800 ANNALEE BRYANIENT (WNR) (M) A 2012A [phone] ,REGI Selected Encounter This section includes the information on record at [place] for the Encounter. Date/Time Encounter Type Encounter Description Reason Provider Source March 19, 2022 12:00 Outpatient Encounter EVENT (HISTORICAL) AM IHE Encounter Template Text not used by ME Plan of Treatment: Future Appointments (+ 6 months) and Future Tests (+/- 45 days) The Plan of Treatment section includes future care activities for the patient from all [place] treatmentfacilities. This section includes future appointments and future orders which are active, pending orscheduled.Future Appointments This section includes appointments that were scheduled to occur 6 months from the date of the Encounter, up to a maximum of 20 appointments. The data comes from all [place] treatment facilities. Appointment Date/Time Appointment Type Appointment Facili ty Name April 10, 2022 11:00 AM AMBULATORY - MEDICINE [facility] April 10, 2022 11:30 AM AMBULATORY - MEDICINE [facility] April 12, 2022 08:30 AM AMBULATORY - MEDICINE [facility] May 07, 2022 09:00 AM AMBULATORY - MEDICINE [facility] May 15, 2022 10:30 AM AMBULATORY - MEDICINE [facility] May 15, 2022 10:40 AM AMBULATORY - MEDICINE [facility] May 15, 2022 11:30 AM AMBULATORY - MEDICINE [facility] May 15, 2022 01:00 PM AMBULATORY - MEDICINE [facility] May 15, 2022 01:45 PM AMBULATORY - NONE [facility] Jun 19, 2022 01:15 PM AMBULATORY - NONE [facility] Jun 24, 2022 05:53 PM AMBULATORY - MEDICINE [facility] Jul 12, 2022 09:20 AM AMBULATORY - SURGERY [facility] Jul 19, 2022 08:00 AM AMBULATORY - MEDICINE [facility] Jul 19, 2022 09:00 AM AMBULATORY - MEDICINE [facility] Lab Results: +/- 30 days of [...] Range Comment Mar 05, 2022 11:47 AM [facility] HEMOGLOBIN A1C Specim en Type: BLOOD No comment enter ed. Ordering Provid er: MARYELLEN LEON Report Released Date/Time: Jun 01, 2021 04:21 PM Reporting Lab: [facility] [address] [facility] [address] Performing Lab: [facility] [address] [facility] [address] HEMOGLOBIN A1C 5.6 4.0-6.0 Mar 05, 2022 11:47 [facility] LIPID PANEL,NON-FASTING S pecimen Type: PLASMA AM No comment enter ed. Ordering Provid er: MARYELLEN LEON Report Released Date/Time: Jun 01, 2021 04:21 PM Reporting Lab: [facility] [address] [facility] [address] Performing Lab: [facility] [address] [facility] [address] CHOLESTEROL 188 <199 .HDL 83 >40 LDL CALCULATION 78 <99 VLDL CALCULATION 27 <29 NON HDL CHOLESTEROL 105 <129 TRIG(NON FASTING) 133 <149 Mar 05, 2022 11:47 [facility] BASIC METABOLIC Specimen Type: PLASMA AM PANEL+MG No comment enter ed. Ordering Provid er: MARYELLEN LEON Report Released Date/Time: Jun 01, 2021 04:21 PM Reporting Lab: [facility] [address] Performing Lab: [facility] [address] CREATININE 1.0 0.7-1.2 UREA NITROGEN 21 8-26 GLUCOSE 112 H 74-100 SODIUM 139 136-145 POTASSIUM 4.9 3.5-5.1 CHLORIDE 103 98-107 CO2 25 22-29 CALCIUM 9.6 8.4-10.2 MAGNESIUM 1.6 1.6-2.6 ANION GAP 11 5-15 CREAT EGFR(CKD-EPI) 79 >60 Mar 05, 2022 11:47 AM [facility] ALT/SGPT Specim en Type: PLASMA No comment enter ed. Ordering Provid er: MARYELLEN LEON Report Released Date/Time: Mar 05, 2022 01:38 PM Reporting Lab: [facility] [address] [facility] [address] Performing Lab: [facility] [address] ALT/SGPT 15 <55 Mar 05, 2022 11:47 AM [facility] AST/SGOT Specim en Type: PLASMA No comment enter ed. Ordering Provid er: MARYELLEN LEON Report Released Date/Time: Mar 05, 2022 01:38 PM Reporting Lab: [facility] [address] [facility] [address] Performing Lab: [facility] [address] AST/SGOT 21 <34 Social History: Smoking Status [...] 2022 01:30 PM VA-TOBACCO FORMER USER [facility] Tobacco Use History This section includes a history of the smoking, or tobacco- related health factors, that were collected on or before the date of the Encounter. The data comes from the [place] facility where the Encounter took place. Date/Time Smoking Status/Tobacco Use Comment Facil ity Mar 05, 2022 01:30 PM VA-TOBACCO QUIT 1 TO < 5 YRS [facility] Jun 01, 2021 02:00 PM [facility] Dec 31, 2019 10:54 AM VA-TOBACCO FORMER USER [facility] Dec 31, 2019 10:54 AM VA-TOBACCO QUIT < 1 YEAR M [facility] March 23, 2019 09:53 AM VA-TOBACCO FORMER USER [facility] March 23, 2019 09:53 AM VA-TOBACCO QUIT < 1 YEAR M [facility] Jun 10, 2018 10:00 AM CURRENT TOBACCO [facility] May 10, 2018 07:27 [place] [facility] May 10, 2018 07:27 PM [facility] Aug 29, 2017 09:55 AM FORMER TOBACCO USE <1Y [facility] May 26, 2017 10:51 [facility] May 26, 2017 10:51 PM [place] [facility] May 03, 2017 09:34 PM [facility] [facility] [facility] [place] [facility] May 03, 2017 09:34 PM [facility] Sep 18, 2016 01:36 PM FORMER TOBACCO USE <1Y [facility] Aug 10, 2016 03:54 PM INPT TOBACCO USE - PT REFUSED [facility] Aug 01, 2016 06:48 PM [facility] [place] [facility] Aug 01, 2016 06:48 PM [facility] Feb 08, 2015 09:57 AM CURRENT TOBACCO USER [facility] Nov 29, 2013 10:37 AM CURRENT TOBACCO USER [facility] Nov 26, 2013 11:09 AM PATIENT IS TOBACCO [place] [facility] Nov 27, 2012 12:12 PM CURRENT TOBACCO USER [facility] Dec 27, 2011 09:44 AM CURRENT TOBACCO [...] 25, 2018 ADVANCE DIRECTIVE AURORA MORALES [facility] Feb 24, 2018 ADVANCE DIRECTIVE DISCUSSION AURORA MORALES [facility] May 26, 2017 CLINICAL WARNING MAGO CONTRERAS [facility] May 03, 2017 CLINICAL WARNING SARIAH ENGLE [facility] Aug 10, 2016 CLINICAL WARNING ISABEL BARCENAS [facility] Aug 02, 2016 CLINICAL WARNING AURORA ALMAZAN [facility]
--- OUTSIDE RECORDS SUMMARY | 2022-06-25 19:37 | XMS_ITS | Encounter Summary ---
:1950 Author Organization [facility] Address [address] [place] [address] Support Name Relationship Address Phone MADELIN MANTILLA Unavailable [address] [phone] [place] [address] MADELIN MANTILLA Unavailable [address] [phone] [place] [address] DHAVAL MANTILLA Unavailable [address] [place] [address] Insurance Providers: All historical and current Section [...] MEDICARE MEDICARE PART Jul 18, PART B [id number] ANNALEE BUSTILLO (WNR) (M) B 2014A [phone] ,REGI MEDICARE MEDICARE PART Apr 17, PART A [id number] ANNALEE BUSTILLO (WNR) (M) A 2012A [phone] ,REGI Selected Encounter This section includes the information on record at [place] for the Encounter. 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 Date/Time Primary/Secondary Diagnosis Name Provider Source Diagnosis May 23, 2022 PRIMARY Supraventricular [place] [place] [facility] 03[facility] May 23, 2022 [facility]OND[facility] Acute cough [facility]ITH [place] 03[facility] May 23, 2022 SECONDARY Encounter for ROSY FAITH [facility] [place] 03:35 PM therapeutic drug L [facility] level monitoring May 23, 2022 SECONDARY jail (current) [facility] [place] 03[place] PM use of anticoagulants L [facility] May 23, 2022 SECONDARY Paroxysmal atrial ROSY FAITH [place] 03[place] PM fibrillation L [facility] Plan of Treatment: Future Appointments (+ 6 months) and Future Tests (+/- 45 days) The Plan of Treatment section includes future care activities for the patient [facility] [place] [facility] This section includes future appointments and future orders which are active, pending orscheduled.Future Appointments This section includes appointments that were scheduled to occur 6 months from the date of the Encounter, up to a maximum of 20 appointments. The data comes from all [facility]. Appointment Date/Time Appointment Type Appointment Facili ty Name Jun 19, 2022 01:15 PM AMBULATORY - NONE [facility] Jun 24, 2022 05:53 PM AMBULATORY - MEDICINE [facility] Jul 12, 2022 09:20 AM AMBULATORY - SURGERY [facility] Jul 19, 2022 08:00 AM AMBULATORY - MEDICINE [facility] Jul 19, 2022 09:00 AM AMBULATORY - MEDICINE [facility] Active, Pending, and Scheduled Orders This section includes a listing of several types of active, pending, and scheduled orders, including clinic medications orders, diagnostic test orders, procedure orders and consult orders; where the start date of the order is 45 days before the date of the Encounter or 45 days after the date of the Encounter. The data comes from all [facility]. Test Date/Time Test Type Test Details Facility Name May 15, 2022 12:00 Laboratory - COVID-19 AND FLU/RSV DIAG [facility] AM Chemistry Order PANEL(CEPHEID) NASOPHARYNGEAL SWAB STAT WC ONCE Jun 24, 2022 06:55 Laboratory - EXTRA BLUE TUBE PLASMA WC [facility] PM Chemistry Order Jun 24, 2022 06:55 Laboratory - EXTRA GOLD GEL TUBE SERUM [facility] PM Chemistry Order Jun 24, 2022 06:55 Laboratory - EXTRA PURPLE TUBE BLOOD [facility] PM Chemistry Order Jun 24, 2022 06:55 Laboratory - EXTRA MINT TUBE PLASMA WC [facility] [place] [facility] PM Chemistry Order Jun 25, 2022 03:59 Consult Order PROSTHETICS REQUEST Cons [facility] PM Contact Center Representative's Choice Lab Results: +/- 30 days of the encounter This section includes the Chemistry and Hematology Lab Results on record with [place] for the patient. Radiology Reports and Pathology Reports are provided separately, in subsequent sections.Lab Results This section contains the Chemistry/Hematology Results that were resulted 30 days before or 30 daysafter the date of the Encounter. Date/Time Source Result Type Result - Unit Interpretation Reference Range Comment May 15, 2022 10:57 [facility] TSH W/REFLEX TO FREE Spec imen Type: PLASMA AM T4 No comment enter ed. Ordering Provid er: ROSY FAITH Report Released Date/Time: April 11, 2022 12:04 PM Reporting [facility] [id number] Performing Lab: [facility] [id number] TSH 3.03 0.35-4.94 May 15, 2022 [facility] COMPREHENSIVE METABOLIC Spec imen Type: PLASMA 10:57 AM PANEL+MG No comment enter ed. Ordering Provid er: ROSY FAITH Report Released Date/Time: April 11, 2022 12:04 PM Reporting Lab: [facility] [id number] Performing Lab: [facility] [id number] CREATININE 1.2 0.7-1.2 UREA NITROGEN 25 8-26 [...] /min 94 % 0 61.811 123.9 23 [facility] 2021 12:50 /min mm[Hg] in lb [facility] Social History: Smoking Status (Most current) and Tobacco Use (All prior to encounter date) This section includes the most current, and the historical, smoking and tobacco-related health factors from the [place] facility where the Encounter took place.Current Smoking Status This section includes the most current smoking, or tobacco-related health factor, from the [place] facility where the Encounter took place. Date/Time Current Smoking Status Comment Facility Mar 05, 2022 01:30 PM VA-TOBACCO FORMER USER [facility] Tobacco Use History This section includes a history of the smoking, or tobacco- related health factors, that were collected on or before the date of the Encounter. The data comes from the [place] facility where the Encounter took place. Date/Time Smoking Status/Tobacco Use Comment [facility] Mar 05, 2022 01:30 PM VA-TOBACCO QUIT 1 TO < 5 YRS [facility] Jun 01, 2021 02:00 PM VA-TOBACCO NEVER USED [place] [facility] Dec 31, 2019 10:54 AM VA-TOBACCO FORMER USER [facility] Dec 31, 2019 10:54 AM [place]-TOBACCO QUIT < 1 YEAR M [facility] March 23, 2019 09:53 AM VA-TOBACCO FORMER USER [facility] March 23, 2019 09:53 AM [facility]BAC[facility]IT < 1 [facility] Jun 10, 2018 10:00 AM CURRENT TOBACCO USER [place] [facility] May 10, 2018 07:27 PM INPT TOBACCO COUNSELING [place] [facility] May 10, 2018 07:27 PM [place] TO[place]ACCO USER [place] [facility] Aug 29, 2017 09:55 AM FORMER TOBACCO USE <1Y [facility] May 26, 2017 10:51 PM INPT TOBACCO COUNSELING [place] [facility] May 26, 2017 10:51 PM IN[place] TOBACCO USER [place] [facility] May 03, 2017 09:34 PM INPT TOBACCO COUNSELING [place] [facility] May 03, 2017 09:34 PM INPT TOBACCO USER [place] [facility] Sep 18, 2016 01:36 PM FORMER TOBACCO USE <1Y [facility] Aug 10, 2016 03:54 PM INPT TOBACCO USE - PT REFUSED [facility] Aug 01, 2016 06:48 PM INPT TOBACCO COUNSELING [place] RADHA [facility] Aug 01, 2016 06:48 PM INPT TOBACCO USER GONZALES LORENZ [facility] Feb 08, 2015 09:57 AM CURRENT TOBACCO USER LAW[place] HUMPHRIESChelita [facility] Nov 29, 2013 10:37 AM CURRENT TOBACCO USER LAWSON ADAME [facility] Nov 26, 2013 11:09 AM PATIENT IS TOBACCO USER ANAID GARCIA [facility] Nov 27, 2012 12:12 PM CURRENT TOBACCO USER [place] ADAME [facility] Dec 27, 2011 09:44 AM CURRENT TOBACCO USER LAWSON ADAME [facility] Jan 22, 2011 02:38 PM CURRENT TOBACCO USER LAWSON HUMPHRIESS [facility] Mar 13, 2010 12:48 PM CURRENT [facility]ACCO [facility]ER [facility] Advance Directives: All historical and current Section Date Range: From patient's date of to the date document was created. This section includes ALL of a patient's completed or amended [place] Advance and Rescinded Directives. The entries below indicate that a directive exists for the patient, but an actual copy is not included with this document. The data comes from all [facility]. Date Advance Directives Provider Source Feb 25, 2018 ADVANCE DIRECTIVE AURORA MORALES [facility] Feb 24, 2018 ADVANCE DIRECTIVE DISCUSSION AURORA MORALES [facility] May 26, 2017 CLINICAL WARNING MAGO CONTRERAS [facility] May 03, 2017 CLINICAL WARNING SARIAH ENGLE [facility] Aug 10, 2016 CLINICAL WARNING ISABEL BARCENAS [facility] Aug 02, 2016 CLINICAL WARNING AURORA ALMAZAN [facility] Radiology Reports: +/- 30 days of [...] the Encounter. The data comes from all [place] treatment facilities. Date/Time Radiology Report Provider Source May 15, 2022 01:23 PM CHEST 2 VIEWS PA AND LAT: DARIEN HERNANDEZ [facility] REGI MANTILLA [id number] [facility] [id number] [phone] [id number] M Exm Date: MAY 15, 2022@13:23 Req Phys: MARCELLROSYSURI Celestin Loc: [facility] CARDIAC E P MARCELL 3D (Req Img Loc: MAIN X-RAY Service: Unknown (Case [id number] COMPLETE) CHEST 2 VIEWS PA AND LAT (R AD Detailed) CPT:00779 Reason for Study: cough, SOB x 2 months; evalua te for edema/infiltrate Clinical History: [place] IS NOT under investigation for COVID-19 or is COVID-19 negative cough, SOB x 2 months Responsible provider name and phone number to notify for critical findings if other than user placing the order and pager listed below: User placing orders pager: [phone] LAST CREATININE 1.2 (05/15/22) Report Status: Verified Date Reported: MAY 15, 2022 Date Verified: MAY 15, 2022 Machinist Supervisor Outside E-Sig:/ES/DARIEN HERNANDEZ MD Report: CHEST 2 VIEWS [...] Primary Interpreting Staff: DARIEN HERNANDEZ MD, RADIOLOGIST (Machinist Supervisor Outside) /CDC Pathology Reports: +/- 30 days of [...] the Encounter. The data comes from all [place] treatment facilities. Date/Time Pathology Report Provider Source May 08, 2022 06:46 PM LR SURGICAL PATHOLOGY REPORT: SARAH MEDEL [facility] LOCAL TITLE: LR SURGICAL PATHOLOGY REPORT STANDARD TITLE: PATHOLOGY REPORT DATE OF NOTE: MAY 08, 2022@18:46:34 ENTRY DATE: MAY 08, 2022@18:46:34 AUTHOR: SARAH MEDEL EXP COSIGNER: URGENCY: STATUS: COMPLETED $APHDR Reporting Lab: [facility] [CLIA# [id number]] [place] [address] - - - - - - - [...] Performing Laboratory: Surgical Pathology Report Performed By: [facility] [CLIA# [id number]] [place] [address] $FTR - - - - - - - - - - - - - - - - - - - - - - - - - - - - - - - - - - - - - - - - (End of report) SARAH MEDEL MD dl Date May 08, 2022 - - - - - - - - - - - - - - - - - - - - - - - - - - - - - - - - - - - - - - - - REGI MANTILLA STANDARD FORM 515 ID:[id number] SEX:M :1950 AGE: 72 LOC: 1153 PCP: Preet Anderson MD /mikal/ SARAH MEDEL MD STAFF PATHOLOGIST, PATHOLOGY & LABORATORY MED SV C Signed: 05/08/2022 18:46 Encounter Notes: All associated encounter notes This section contains the clinical notes associated to the Encounter. Date/Time Encounter Note(s) Provider Source May 15, 2022 12:51 PM INTERNAL MEDICINE OUTPATIENT NOTE: Ana VALLEJO [facility] LOCAL TITLE: MEDICINE CLINIC NURSING NOTE STANDARD TITLE: INTERNAL MEDICINE OUTPATIENT NOT E DATE OF NOTE: MAY 15, 2022@12:51 ENTRY DATE: MAY 15, 2022@12:51:52 AUTHOR: AMRIK VALLEJO EXP COSIGNER: URGENCY: STATUS: COMPLETED TYPE OF VISIT: Appointment Check In Type of appointment: In-person appointment REASON FOR VISIT: scheduled ALLERGIES: LISINOPRIL (Jun 01, 2021) VITAL SIGNS: Blood Pressure: 120/77 (05/15/2022 12:50) Pulse: 63 (05/15/2022 12:50) Respiration: 16 (05/15/2022 12:50) Temperature: 99 F [37.2 C] (05/15/2022 12:50) Weight: 123.9 lb [56.20 kg] (05/15/2022 12:50) Height: 61.811 in [157.0 cm] (05/15/2022 12:50) BMI: 22.8 O2 Sat: 94% (05/15/2022 12:50) Pain: 0 (05/15/2022 12:50) PAIN SCREEN: Patient is not having significant pain that the y wish to discuss with their provider today. MEDICATION Over the Counter/Herbal Medications: The patient denies taking any outside medicatio ns or herbals. patient states no chest pain noted. /mikal/ AMRIK VALLEJO LPN [employer]RIMP P[employer]ER Signed: 05/15/2022 12:53 May 15, 2022 12:39 PM CARDIOLOGY DIAGNOSTIC STUDY NOTE: ROSY FAITH [facility] LOCAL TITLE: CARDIOLOGY ELECTROPHYSIOLOGY NOTE STANDARD TITLE: CARDIOLOGY DIAGNOSTIC STUDY NOTE DATE OF NOTE: MAY 15, 2022@12:39 ENTRY DATE: MAY 15, 2022@12:39:59 AUTHOR: ROSY FAITH EXP COSIGNER: URGENCY: STATUS: COMPLETED SUBJECT: Electrophysiology Follow-Up Note CC: AF/AFl/AT + Amiodarone f/u HPI: 72 y.o. male vet w/ h/o paroxysmal AF/AFl/A T w/ RVR (Amiodarone started 04/10/22), CAD (s/p DESx2->LCx/OM1 07/2016), HTN /HL, GERD/gastritis, CKD, seropositive RA (on Humira/Sulfasalazine/chronic Prednisone), OA, and PSA (ETOH/marijuana) presents to EP clinic for atria l arrhythmia f/u. Pt. reports feeling well overall. He has noted no significan t changes since starting Amiodarone, but he has consistently denied sx w/ AF despite RVR >200 bpm at times. Denies palpitations, dizziness/LH, syncop e, chest pain. He says he has had a cough for ~ 2 months. Productive w/ white sputum. No fever/chills. PMHx: *Paroxysmal A.fib/flutter/tach - 03/2022 14-day Zio w/ 31% AT vs. AFl burden w / average HR 140 bpm; two tracings (page 9 and page 17) c/w A.fib - Amiodarone + Apixaban started 04/10/22 *CAD - S/p ARLYN x 2 -> LCx + OM1 08/02/16 - Readmitted for NSTEMI 08/12/16, felt to be tuttle btotal occlusion of superior branch of the OM1 similar to [facility] on 08/02/16--m edically managed - S/p [...] 02/2022 admission---reduced to 2 1o z shots Prasanna + 1 beer--- prior 1 pint whiskey [...] MS-relate d complications CARDIAC TESTING - EKG (05/15/22): sinus bradycardia (HR 55) - EKG (04/10/22): sinus rhythm (HR 80), [...] den of 8.1% - Echo (02/18/22 @ [facility]): 1. Technically limited exam. 2. Normal LV [...] PET CT Myocardial Perfusion Imaging (02/18/22 @ [facility]: 1. Myocardial perfusion was abnormal. There was [...] of 65%. - Cardiac Cath (02/20/22 @ [facility]): - LAD - widely patent and has [...] NDER ACTIVE THE SKIN EVERY 2 WEEKS AMIODARONE HCL (PACERONE) 200MG TAB TAKE ONE TAB LET ACTIVE BY MOUTH EVERY DAY FOR HEART RHYTHM APIXABAN 5MG TAB TAKE ONE TABLET BY MOUTH EVERY 12 ACTIVE HOURS TO PREVENT BLOOD CLOTS & STROKE. ATORVASTATIN CALCIUM 80MG TAB TAKE ONE TABLET BY ACTIVE MOUTH AT BEDTIME CHOLECALCIF 25MCG (D3-1,000UNIT) TAB TAKE ONE TA BLET ACTIVE BY MOUTH EVERY DAY CYANOCOBALAMIN 1000MCG TAB TAKE ONE TABLET BY MO UTH ACTIVE EVERY DAY FLUTICASONE PROP 50MCG 120D NASAL INHL SPRAY 1 S PRAY ACTIVE IN EACH NOSTRIL TWICE A DAY NEEDED FOLIC ACID 1MG TAB TAKE ONE TABLET BY MOUTH EVER Y DAY ACTIVE ISOSORBIDE MONONITRATE 60MG SA TAB TAKE ONE-HALF ACTIVE TABLET BY MOUTH EVERY DAY LORATADINE 10MG TAB TAKE ONE TABLET BY MOUTH GISSELLE RY ACTIVE DAY FOR ALLERGY SYMPTOMS METOPROLOL TARTRATE 50MG TAB TAKE ONE TABLET BY MOUTH ACTIVE TWICE A DAY PANTOPRAZOLE NA 40MG EC TAB TAKE ONE TABLET BY M OUTH ACTIVE EVERY MORNING ONE-HALF HOUR BEFORE EATING TO DECREASE STOMACH ACID PREDNISONE 10MG TAB TAKE ONE TABLET BY MOUTH GISSELLE RY ACTIVE DAY SULFASALAZINE 500MG TAB TAKE TWO TABLETS BY MOUT H ACTIVE TWICE A DAY Vital Signs: Temperature: 99 F [37.2 C] (05/15/2022 12:50) Blood Pressure: 120/77 (05/15/2022 12:50) Pulse: 63 (05/15/2022 12:50) Respiration: 16 (05/15/2022 12:50) Pain: 0 (05/15/2022 12:50) PE: GA: very pleasant, non-toxic appearing, olde r, male in NAD Lungs: b/l ronchi clear w/ coughing, no wheezin g or crackles CV: RRR; no m/g/r; no JVD Ext: no edema Neuro: AOx4; no focal deficits A/P: *Paroxysmal A.fib/flutter/tach: - 03/2022 14-day Zio w/ 31% AT vs. AFl burden w / average HR 140 bpm. - Given very poor rate control and profound RVR (up to 237 bpm) despite Metoprolol tartrate 50mg BID, pt. was started o n Amiodarone 04/10/22 for rhythm control. - CHADS-VASC = 3 (>65, HTN, CAD/MA). Apixaban started 04/10/22 given confirmed AF dx on 03/2022 Zio. No ADRs. - Tx options of continue Am iodarone vs. ablation were again discussed. At this time, pt. prefers to continue medication. *Amiodarone monitoring: - TSH/LFTs WNL. - PFT w/ corrected DLCO 85%. *Cough x 2 months: - Pt. was sent for CXR, which showed no acute i nfiltrate/edema. Impression: Compared to 07/28/2020, 1. No acute cardiopulmon [place] disease. 2. Persistent probable mild bilateral hyperinflati on. 3. Evidence of prior asbestos exposure, noting that bilater al calcified pleural plaques were demonstrated to better adv antage on prior chest CT dated 05/04/2017. - Recommended he f/u w/ PCP if sx persist. *F/u EP clinic 6 months w/ labs/EKG. *Total Time Spent: 35 minutes. Chart review prio r to visit, direct patient care, review of testing, co ordination of care, and documentation of encounter. /mikal/ ROSY FAITH APRN/CCDS/CCRN-[facility] ELECTROPHYSIOLOGY NURSE PRACTITIONER Signed: 05/23/2022 15:35
--- OUTSIDE RECORDS SUMMARY | 2022-06-25 19:37 | XMS_ITS | Encounter Summary ---
:1950 Author Organization [facility] Address [address] [place] [address] Support Name Relationship Address Phone MADELIN MANTILLA Unavailable [phone] [place] [address] MADELIN MANTILLA Unavailable [phone] [place] [address] DHAVAL MANTILLA Unavailable [address] [place] [address] Insurance Providers: All historical and current Section [...] MEDICARE MEDICARE PART Jul 18, PART B [id number] ANNALEE BRYANIENT (WNR) (M) B 2014A [phone] ,REGI MEDICARE MEDICARE PART Apr 17, PART A [id number] ANNALEE Cardenas ATIENT (WNR) (M) A 2012A [phone] ,REGI Selected Encounter This section includes the information on record at [place] for the Encounter. Date/Time Encounter Type Encounter Reason Provider Source Description Jun 01, 2022 Outpatient TELEPHONE/MEDICINE MIGUEL ÁNGEL 10:58 AM Encounter GLORIA RODRIGUEZ Encounter Template Text not used by [place] Plan of Treatment: Future Appointments (+ 6 [...] 20 appointments. The data comes from all [facility]. Appointment Date/Time Appointment Type Appointment Facili ty Name Jun 19, 2022 01:15 PM AMBULATORY - NONE [facility] Jun 24, 2022 05:53 PM AMBULATORY - MEDICINE [facility] Jul 12, 2022 09:20 AM AMBULATORY - SURGERY [facility] Jul 19, 2022 08:00 AM AMBULATORY - MEDICINE [facility] Jul 19, 2022 09:00 AM AMBULATORY - MEDICINE [facility] Nov 20, 2022 10:30 AM AMBULATORY - MEDICINE [facility] Nov 20, 2022 11:00 AM AMBULATORY - MEDICINE [facility] Nov 20, 2022 11:30 AM AMBULATORY - MEDICINE [facility] Active, Pending, and Scheduled Orders This section includes a listing of several types of active, pending, and scheduled orders, including clinic medications orders, diagnostic test orders, procedure orders and consult orders; where the start date of the order is 45 days before the date of the Encounter or 45 days after the date of the Encounter. The data comes from all [facility]. Test Date/Time Test Type Test Details Facility Name May 15, 2022 12:00 Laboratory - COVID-19 AND FLU/RSV DIAG [facility] AM Chemistry Order PANEL(CEPHEID) NASOPHARYNGEAL SWAB STAT WC ONCE Jun 24, 2022 06:55 Laboratory - EXTRA BLUE TUBE PLASMA WC [facility] PM Chemistry Order Jun 24, 2022 06:55 Laboratory - EXTRA GOLD GEL TUBE SERUM [facility] PM Chemistry Order WC Jun 24, 2022 06:55 Laboratory - EXTRA PURPLE TUBE BLOOD [facility] PM Chemistry Order WC Jun 24, 2022 06:55 Laboratory - EXTRA MINT TUBE PLASMA WC [facility] PM Chemistry Order Jun 25, 2022 03:59 Consult Order PROSTHETICS REQUEST Cons [place] [facility] PM Thermal Cutting Tracer Machine Operator's Choice Jul 10, 2022 12:00 Laboratory - RHEUMATOLOGY CHEM PANEL [facility] AM Chemistry Order PLASMA SP ONCE Jul 10, 2022 12:00 Laboratory - RHEUMATOLOGY HEME PANEL [facility] AM Chemistry Order BLOOD SP ONCE Lab Results: +/- 30 days of [...] - Unit Interpretation Reference Range Comment Jun 24, 2022 09:29 PM [facility] URINALYSIS Specim en Type: URINE No comment enter ed. Ordering Provid er: JAYDE MENDOZA Report Released Date/Time: Jun 24, 2022 06:55 PM Reporting Lab: [facility] [address] [facility] [address] Performing Lab: [facility] [address] [facility] [address] URINE COLOR YELLOW SPECIFIC GRAVITY 1.039 H 1.003-1.035 URINE BILIRUBIN NEGATIVE NEGATIVE URINE KETONES NEGATIVE NEGATIVE URINE GLUCOSE NEGATIVE <30 URINE PROTEIN 50 <20 URINE PH 6.5 5.0-8.0 URINE WBC/HPF 17 H 0-7 URINE BACTERIA NONE SEEN CA++ OXALATE CRYSTALS FEW URINE RBC/HPF >180 H 0-3 APPEARANCE TURBID SQUAMOUS EPITHELIAL NONE SEEN URINE BLOOD 3+ NEGATIVE URINE NITRITE NEGATIVE NEGATIVE LEUKOCYTE ESTERASE 25 NEGATIVE Jun 24, 2022 08:24 PM [facility] AST/SGOT Specim en Type: PLASMA No comment enter ed. Ordering Provid er: JAYDE MENDOZA Report Released Date/Time: Jun 24, 2022 08:09 PM Reporting Lab: [facility] [address] [facility] [address] Performing Lab: [facility] [address] [facility] [address] AST/SGOT 19 <34 Jun 24, 2022 08:24 PM [facility] PROTEIN,TOTAL Specim en Type: PLASMA No comment enter ed. Ordering Provid er: JAYDE MENDOZA Report Released Date/Time: Jun 24, 2022 08:09 PM Reporting Lab: [facility] [address] [facility] [address] Performing Lab: [facility] [address] [facility] [address] PROTEIN,TOTAL 6.8 6.0-8.3 Jun 24, 2022 08:24 PM [facility] POTASSIUM Specim en Type: PLASMA No comment enter ed. Ordering Provid er: JAYDE MENDOZA Report Released Date/Time: Jun 24, 2022 08:09 PM Reporting Lab: [facility] [address] [facility] [address] Performing Lab: [facility] [address] [facility] [address] POTASSIUM 4.9 3.5-5.1 Jun 24, 2022 07:40 [facility] PROTHROMBIN TIME/INR Spec imen Type: PLASMA PM No comment enter ed. Ordering Provid er: JAYDE MENDOZA Report Released Date/Time: Jun 24, 2022 06:55 PM Reporting Lab: [facility] [address] [facility] [address] Performing Lab: [facility] [address] [facility] [address] .INR 1.1 0.8-1.1 .PT 12.1 9.4-12.5 Jun 24, 2022 07:32 [facility] COVID-19 DIAGNOSTIC Speci men Type: NASOPHARYNGEAL PM PANEL (CEPHEID) Comment: Cephei d GeneXpert (618) Ordering Provid er: JAYDE MENDOZA Report Released Date/Time: Jun 24, 2022 06:55 PM Reporting Lab: [facility] [address] [facility] [address] Performing Lab: [facility] [address] COVID-19 (CEPHEID) Not Detected Not Dete cted Jun 24, 2022 07:29 PM [facility] CBC & DIFF Specim en Type: BLOOD Comment: [place]um[place] d Platelets. Invitro artefact. No clinical significance. Platelet count may be higher than stated value. Plt count = 214 K-cmm Manual Differential Performed Ordering Provid er: JAYDE MENDOZA Report Released Date/Time: Jun 24, 2022 06:55 PM Reporting Lab: [facility] [address] [facility] [address] Performing Lab: [facility] [address] [facility] [address] WBC 9.67 4.0-11.0 RBC 3.36 L 4.6-6.2 HGB 12.0 L 13.5-17.9 HCT 35.9 L 41-54 MCV 106.8 H 80-100 MCH 35.7 H 27-33 MCHC 33.4 32.0-37.5 PLT comment MPV canc NEUT 70.7 LYMPHS 16.7 RDW 14.0 11.5-14.5 MONO 9.6 EOSINO 1.5 META 1.0 MYELO 0.5 NORMOCHROMIC YES MACROCYTOSIS SLIGHT ABS LYMPH 1.61 1.0-4.0 ABS MONO 0.93 0.1-1.0 ABS NEUT 6.84 2.0-7.7 ABS EOS 0.15 0-0.5 ABS META 0.10 ABS MYELO 0.05 IPF canc .RBC MORPHOLOGY PRESENT Jun 24, 2022 [facility] COMPREHENSIVE METABOLIC Spec imen Type: PLASMA 07:29 PM PANEL+MG Comment: Cancel lation reported to: Rajni Giraldo RN on 06/24/22@2004 by [place]. Test result cancelled due to hemolysis interference in sample. Ordering Provid er: JAYDE MENDOZA Report Released Date/Time: Jun 24, 2022 06:55 PM Reporting Lab: [facility] [address] [facility] [address] Performing Lab: [facility] [address] CREATININE 1.3 H 0.7-1.2 UREA NITROGEN 19 8-26 GLUCOSE 111 H 74-100 SODIUM 133 L 136-145 POTASSIUM canc 3.5-5.1 CHLORIDE 103 98-107 CO2 22 22-29 CALCIUM 9.4 8.4-10.2 PROTEIN,TOTAL canc 6.0-8.3 ALBUMIN 3.9 3.5-5.2 BILIRUBIN, TOTAL 0.2 0.2-1.2 MAGNESIUM 2.3 1.6-2.6 ANION GAP 8 5-15 ALKALINE PHOSPHATASE 56 40-150 ALT/SGPT 20 <55 AST/SGOT canc <34 CREAT EGFR(CKD-EPI) 58 L >60 May 15, 2022 10:57 [facility] TSH W/REFLEX TO FREE Spec imen Type: PLASMA AM T4 No comment enter ed. Ordering Provid er: ROSY FAITH Report Released Date/Time: April 11, 2022 12:04 PM Reporting Lab: [facility] [address] [facility] [address] Performing Lab: [facility] [address] [facility] [address] TSH 3.03 0.35-4.94 May 15, 2022 [facility] COMPREHENSIVE METABOLIC Spec imen Type: PLASMA 10:57 AM PANEL+MG No comment enter ed. Ordering Provid er: ROSY FAITH Report Released Date/Time: April 11, 2022 12:04 PM Reporting Lab: [facility] [address] [facility] [address] Performing Lab: [facility] [address] [facility] [address] CREATININE 1.2 0.7-1.2 UREA NITROGEN 25 8-26 [...] 2022 01:30 PM VA-TOBACCO FORMER USER [facility] Tobacco Use History This section includes a history of the smoking, or tobacco- related health factors, that were collected on or before the date of the Encounter. The data comes from the [place] facility where the Encounter took place. Date/Time Smoking Status/Tobacco Use Comment [facility] Mar 05, 2022 01:30 PM VA-TOBACCO QUIT 1 TO < 5 YRS [facility] Jun 01, 2021 02:00 PM VA-TOBACCO NEVER USED [place] [facility] Dec 31, 2019 10:54 AM VA-TOBACCO FORMER USER [facility] Dec 31, 2019 10:54 AM VA-TOBACCO QUIT < 1 YEAR [place] [facility] March 23, 2019 09:53 AM VA-TOBACCO FORMER USER [facility] March 23, 2019 09:53 AM VA-TOBACCO QUIT < 1 YEAR [place] Jun 10, 2018 10:00 AM CURRENT TOBACCO USER [facility] May 10, 2018 07:27 PM INPT TOBACCO COUNSELING [place] [facility] May 10, 2018 07:27 PM INPT TOBACCO USER GONZALES LOREN[facility] Aug 29, 2017 09:55 AM FORMER TOBACCO USE <1Y [facility] May 26, 2017 10:51 PM INPT TOBACCO COUNSELING [place] [facility] May 26, 2017 10:51 PM INPT TOBACCO USER CAR[facility]YNO [facility] May 03, 2017 09:34 PM INPT TOBACCO COUNSELING ID [facility] May 03, 2017 09:34 PM INPT TOBACCO USER CAROLYNO [facility] Sep 18, 2016 01:36 PM FORMER TOBACCO USE <1Y [facility] Aug 10, 2016 03:54 PM INPT TOBACCO USE - PT REFUSED [facility] Aug 01, 2016 06:48 PM [facility]AC[facility] Aug 01, 2016 06:48 PM INPT TOBACCO USER CAROLYNO [facility] Feb 08, 2015 09:57 AM CURRENT TOBACCO USER [facility] Nov 29, 2013 10:37 AM CURRENT TOBACCO USER [facility] Nov 26, 2013 11:09 AM PATIENT IS [facility]BACCO USER [facility] Nov 27, 2012 12:12 PM CURRENT TOBACCO USER [facility] Dec 27, 2011 09:44 AM CURRENT TOBACCO USER [facility] Jan 22, 2011 02:38 PM CURRENT [facility]AC[facility] Mar 13, 2010 12:48 PM CURRENT TOBACCO USER [facility] Advance Directives: All historical and current Section Date Range: From patient's date of to the date document was created. This section includes ALL of a patient's completed or amended [place] Advance and Rescinded Directives. The entries below indicate that a directive exists for the patient, but an actual copy is not included with this document. The data comes from all [place] facilities. Date Advance Directives Provider Source Feb 25, 2018 ADVANCE DIRECTIVE AURORA MORALES [facility] Feb 24, 2018 ADVANCE DIRECTIVE DISCUSSION AURORA MORALES [facility] May 26, 2017 CLINICAL WARNING MAGO CONTRERAS [facility] May 03, 2017 CLINICAL WARNING SARIAH ENGLE [facility] Aug 10, 2016 CLINICAL WARNING ISABEL BARCENAS [facility] Aug 02, 2016 CLINICAL WARNING AURORA ALMAZAN [facility] Radiology Reports: +/- 30 days [...] 2 VIEWS PA AND LAT: DARIEN HERNANDEZ [facility] REGI MANTILLA [id number] -APR 12, 194 8 M Exm Date: MAY 15, 2022@13:23 Req Phys: ROSY FAITH Pat Loc: [facility] CARDIAC E P MARCELL 3D (Req Img Loc: MAIN X-RAY Service: Unknown (Case [id number] COMPLETE) CHEST 2 VIEWS PA AND LAT (R AD Detailed) CPT:91630 Reason for Study: cough, SOB x 2 months; evalua te for edema/infiltrate Clinical History: [place] IS NOT under investigation for COVID-19 or is COVID-19 negative cough, SOB x 2 months Responsible provider name and phone number to notify for critical findings if other than user placing the order and pager listed below: User placing orders pager: [phone] LAST CREATININE 1.2 (05/15/22) Report Status: Verified Date Reported: MAY 15, 2022 Date Verified: MAY 15, 2022 Rock Picker E-Sig:/ES/DARIEN HERNANDEZ MD Report: CHEST 2 VIEWS [...] Primary Interpreting Staff: DARIEN HERNANDEZ MD, RADIOLOGIST (Rock Picker) /CDC Pathology Reports: +/- 30 days of [...] PM LR SURGICAL PATHOLOGY REPORT: SARAH MEDEL [facility] LOCAL TITLE: LR SURGICAL PATHOLOGY REPORT STANDARD TITLE: PATHOLOGY REPORT DATE OF NOTE: MAY 08, 2022@18:46:34 ENTRY DATE: MAY 08, 2022@18:46:34 AUTHOR: SARAH MEDEL EXP COSIGNER: URGENCY: STATUS: COMPLETED $APHDR Reporting Lab: [facility] [CLIA# [id number]] [place] [address] - - - - - - - [...] Performing Laboratory: Surgical Pathology Report Performed By: [facility] [CLIA# [id number]] [place] [address] $FTR - - - - - - [...] - - REGI MANTILLA STANDARD FORM 515 ID:[id number] SEX:M :1950 AGE: 72 LOC: 1153 PCP: Preet Anderson MD /mikal/ SARAH MEDEL MD STAFF PATHOLOGIST, PATHOLOGY & LABORATORY MED C Signed: 05/08/2022 18:46 Encounter Notes: All associated encounter notes This section contains the clinical notes associated to the Encounter. Date/Time Encounter Note(s) Provider Source Jun 01, 2022 10:58 PHARMACY OUTPATIENT MEDICATION MGT NOTE: LISA GUNN [facility] AM LOCAL TITLE: PHARMACY ANTICOAGULATION CLINIC F/ U GLORIA RODRIGUEZ STANDARD TITLE: PHARMACY OUTPATIENT MEDICATION M GT NOTE DATE OF NOTE: JUN 01, 2022@10:58 ENTRY DATE: JUN 01, 2022@10:59:13 AUTHOR: NANCY STRONG COSIGNER: URGENCY: STATUS: COMPLETED PHARMACY ANTICOAGULATION CLINIC F/U Has ADD ENDA INITIAL DOAC FOLLOW-UP - Anticoagulant: apixaban 5mg q12h - Indication(s): Afib - Relevant PMH: - NSTEMI 2017 - Prior major bleeds: no major bleeds per pt - h/o internal hemorrhoids - 02/2022 non-erosive gastritis, on PPI - h/o anemia w/Etoh abuse - Prior anticoagulants: none - Start date: 03/2022 - Anticipated duration: indefinite - [id number] = 3 (age, htn, CAD) - CHADS = 1 (htn) low risk - HASBLED = 3 (age, etoh, anemia) high risk SUBJECTIVE/OBJECTIVE: History obtained from chart review and patient. No Recent health changes: - Colonoscopy 05/07/22, no issues No Upcoming procedures requiring interruption: No Bleeding or thromboembolic complications: Yes Falls or injuries: 05/25/22 fell on ribs and left side of back, he w as drunk and cannot remember if he hit head, reminded pt to go to [facility] if he hits head Yes Significant medication changes/new DDIs: -Continues - amiodarone, monitor, may inc bleed risk - sulfasalazine, monitor (level B inxtn per UpT oDate, monitor) - Changes: none Yes alcohol use: - Baseline: 2-3 1oz shots whiskey + 1 beer, medardo or 1 pint whiskey + 6 pack/beer per day - Changes: about the same- couple of shots + 2 beers a day No Compliance concerns/frequently missed doses: - missed 1 dose couple of days ago, writes on t he paper when take them, does not miss dose regularly dashboard flags: none Lab: ---- Age: 72 Weight: 123.9 lb [56.20 kg] (05/15/2022 12:50) Height: 61.811 in [157.0 cm] (05/15/2022 12:50) CREATININE 1.2 PLASMA (05/15/22 10:57) 1.0 PLASMA (03/05/22 11:47) 1.0 PLASMA (01/11/22 09:15) Cockcroft & Gault (Actual body weight) = 42.9 mL /min Collection DT Spec WBC HGB HCT PLT MCV NEUT LYMP HS 01/11/2022 09:15 BLOOD 10.65 13.1 L 38.7 L 235 1 06.0 H 66.8 16.9 09/28/2021 09:18 BLOOD 11.98 H 14.0 41.7 243 104 .0 H 62.1 19.5 06/19/2021 07:58 BLOOD 10.57 11.6 L 34.3 L 294 1 03.9 H 79.0 9.7 Collection DT Specimen Test Name Result Units Re f Range 05/15/2022 10:57 PLASMA BILIRUBIN, TOTAL 0.5 mg/ dL 0.2 - 1.2 05/15/2022 10:57 PLASMA ALKALINE PHOSPHAT 55 U/L 40 - 150 05/15/2022 10:57 PLASMA AST/SGOT 28 U/L Ref: <=3 4 05/15/2022 10:57 PLASMA ALT/SGPT 19 U/L Ref: <=5 5 ASSESSMENT/PLAN: - Taking DOAC correctly, with mostly compliance, and without adverse effects attributable to the use of the drug. - NEW LABS DRAWN SINCE INITIAL CONSULT; PHARMACI ST TO REVIEW. - Continue anticoagulation at current dose.. - Monitor dashboard for labs, drug interactions, and compliance. - Lab monitoring frequency defined by dashboard or as clinically indicated. - 90-day supply Rx needed by pharmacist; refill requested and mailed. Time spent: 10 minutes Patient education of treatment plan: Patient ind icates readiness to learn, verbalizes understanding, agreement and satisfac tion with the treatment plan. Denies further questions. /es/ GLORIA RODRIGUEZ Pharmacist Signed: 06/01/2022 11:29 Receipt Acknowledged By: 06/05/2022 15:31 /mikal/ Vero Hoang PHARMACIST 06/05/2022 ADDENDUM STATUS: COMPLETED New labs acceptable. /mikal/ Vero Hoang PHARMACIST Signed: 06/06/2022 07:59
--- OUTSIDE RECORDS SUMMARY | 2022-06-25 19:37 | XMS_ITS | Encounter Summary ---
:1950 Author Organization [facility] Address [address] [place] [address] Support Name Relationship Address Phone MADELIN MANTILLA Unavailable [phone] [place] [address] MADELIN MANTILLA Unavailable [phone] [place] [address] DHAVAL MANTILLA Unavailable [address] [place] [address] Insurance Providers: All historical and current Section [...] MEDICARE MEDICARE PART Jul 18, PART B [id number] 800 ANNALEE BUSTILLO (WNR) (M) B 2014A [phone] ,REGI MEDICARE MEDICARE PART Apr 17, PART A [id number] 800 ANNALEE BRYANIENT (WNR) (M) A 2012A [phone] ,REGI Selected Encounter This section includes the information on record at [place] for the Encounter. Date/Time Encounter Type Encounter Description Reason Provider Source March 18, 2022 12:00 Outpatient Encounter EVENT (HISTORICAL) AM IHE Encounter Template Text not used by [place] Plan of Treatment: Future Appointments (+ 6 months) and Future Tests (+/- 45 days) The Plan of Treatment section includes future care activities for the patient from all [place] treatmentfacilities. This section includes future appointments and future orders which are active, pending orscheduled.Future Appointments This section includes appointments that were scheduled to occur 6 months from the date of the Encounter, up to a maximum of 20 appointments. The data comes from all [place] treatment facilities. Appointment Date/Time Appointment Type Appointment Facili ty Name March 19, 2022 06:03 PM AMBULATORY - NONE [facility] April 10, 2022 11:00 AM AMBULATORY - MEDICINE [facility] April 10, 2022 11:30 AM AMBULATORY - MEDICINE [facility] April 12, 2022 08:30 AM AMBULATORY - MEDICINE [facility] May 07, 2022 09:00 AM AMBULATORY - MEDICINE [facility] May 15, 2022 10:30 AM AMBULATORY - MEDICINE [facility] May 15, 2022 10:40 AM AMBULATORY - MEDICINE [facility] May 15, 2022 11:30 AM AMBULATORY - MEDICINE [facility] May 15, 2022 01:00 PM AMBULATORY - MEDICINE [facility] May 15, 2022 01:45 PM AMBULATORY - NONE [facility] Jun 19, 2022 01:15 PM AMBULATORY - NONE [facility] Jun 24, 2022 05:53 PM AMBULATORY - MEDICINE [facility] Jul 12, 2022 09:20 AM AMBULATORY - SURGERY [facility] Jul 19, 2022 08:00 AM AMBULATORY - MEDICINE [facility] Jul 19, 2022 09:00 AM AMBULATORY - MEDICINE [facility] Lab Results: +/- 30 days of the encounter This section includes the Chemistry and Hematology Lab Results on record with [place] for the patient. Radiology Reports and Pathology [...] [facility] [address] [facility] [address] Performing Lab: [facility] [address] [facility] [address] HEMOGLOBIN A1C 5.6 4.0-6.0 Mar 05, 2022 11:47 [facility] LIPID PANEL,NON-FASTING S pecimen Type: PLASMA AM No comment enter ed. Ordering Provid er: MARYELLEN LEON Report Released Date/Time: Jun 01, 2021 04:21 PM Reporting Lab: [facility] [address] [facility] [address] Performing Lab: [facility] [address] [facility] [address] CHOLESTEROL 188 <199 .HDL 83 >40 LDL CALCULATION 78 <99 VLDL CALCULATION 27 <29 NON HDL CHOLESTEROL 105 <129 TRIG(NON FASTING) 133 <149 Mar 05, 2022 11:47 [facility] BASIC METABOLIC Specimen Type: PLASMA AM PANEL+MG No comment enter ed. Ordering Provid er: MARYELLEN LEON Report Released Date/Time: Jun 01, 2021 04:21 PM Reporting Lab: [facility] [address] [facility] [address] Performing Lab: [facility] [address] CREATININE 1.0 0.7-1.2 UREA NITROGEN 21 8-26 [...] Reporting Lab: [facility] [address] [facility] [address] Performing Lab: [facility] [address] AST/SGOT 21 <34 Mar 05, 2022 11:47 AM [facility] ALT/SGPT Specim en Type: PLASMA No comment enter ed. Ordering Provid er: MARYELLEN LEON Report Released Date/Time: Mar 05, 2022 01:38 PM Reporting Lab: [facility] [address] [facility] [address] Performing Lab: [facility] [address] ALT/SGPT 15 <55 Social History: Smoking Status (Most current) and Tobacco Use (All prior to encounter date) This section includes the most current, and the historical, smoking and tobacco-related health factors from the [place] facility where the Encounter took place.Current Smoking Status This section includes the most current smoking, or tobacco-related health factor, from the [place] facility where the Encounter took place. Date/Time Current Smoking Status Comment Facility Mar 05, 2022 01:30 PM VA-TOBACCO FORMER USER [facility] Tobacco Use History This section includes a history of the smoking, or tobacco- related health factors, that were collected on or before the date of the Encounter. The data comes from the [facility] where the Encounter took place. Date/Time Smoking Status/Tobacco Use Comment Facil it Mar 05, 2022 01:30 PM VA-TOBACCO QUIT 1 TO < 5 YRS [facility] Jun 01, 2021 02:00 PM [facility] Dec 31, 2019 10:54 AM VA-TOBACCO FORMER USER [facility] Dec 31, 2019 10:54 AM VA-[facility] < [facility] March 23, 2019 09:53 AM VA-TOBACCO FORMER USER [facility] March 23, 2019 09:53 AM VA-TOBACCO QUIT < 1 YEAR [facility] Jun 10, 2018 10:00 AM CUR[place]BACCO [place] [facility] May 10, 2018 07:27 PM INPT TOBACCO COUNSEL[place] [facility] May 10, 2018 07:27 PM [place] [facility] Aug 29, 2017 09:55 AM FORMER TOBACCO USE <1Y [facility] May 26, 2017 10:51 PM INPT TOBACCO COUNSEL[place] [facility] May 26, 2017 10:51 PM [place]AC[place] [facility] May 03, 2017 09:34 PM INPT TOBACCO COUNSEL[place] [facility] May 03, 2017 09:34 PM [place]AC[place] [facility] Sep 18, 2016 01:36 PM FORMER TOBACCO USE <1Y [facility] Aug 10, 2016 03:54 PM INPT TOBACCO USE - PT REFUSED [facility] Aug 01, 2016 06:48 PM INPT TOBACCO COUNSEL[place] [facility] Aug 01, 2016 06:48 PM [place]AC[place] [facility] Feb 08, 2015 09:57 AM CURRENT TOBACCO USER [place] [facility] Nov 29, 2013 10:37 AM CURRENT [place]BACCO [place] [facility] Nov 26, 2013 11:09 AM PATIENT IS TOBACCO USER [place] [facility] Nov 27, 2012 12:12 PM CURRENT [place]BACCO [place] [facility] Dec 27, 2011 09:44 AM [place] [facility] [facility] Jan 22, 2011 02:38 PM CURRENT TOBACCO USER [facility] Mar 13, 2010 12:48 PM [address]BACCO USER [facility] Advance Directives: All historical and current Section Date Range: From patient's date of to the date document was created. This section includes ALL of a patient's completed or amended [place] Advance and Rescinded Directives. The entries below indicate that a directive exists for the patient, but an actual copy is not included with this document. The data comes from all [place] facilities. Date Advance Directives Provider Source Feb [...]
--- OUTSIDE RECORDS SUMMARY | 2022-06-25 19:37 | XMS_ITS | Encounter Summary ---
:1950 [address] [facility] Address [address] [place] [address] Support Name Relationship Address Phone MADELIN MANTILLA Unavailable [phone] [place] [address] MADELIN MANTILLA Unavailable [address] [phone] [place] [address] DHAVAL MANTILLA Unavailable [address] [place] [address] Insurance Providers: All historical and current Section [...] MEDICARE MEDICARE PART Jul 18, PART B [id number] 800 ANNALEE BUSTILLO (WNR) (M) B 2014A [phone] ,REGI MEDICARE MEDICARE PART Apr 17, PART A [id number] 800 ANNALEE BRYANIENT (WNR) (M) A 2012A [phone] ,REGI Selected Encounter This section includes the information on record at [place] for the Encounter. Date/Time Encounter Type Encounter Reason Provider Source Description May 15, 2022 ELECTROCARDIOGRAM EKG ICD-10-CM Z13.6 FARRUKH LOZOYA 10:30 AM COMPLETE Encounter for EL screening for cardiovascular disorders with Provider Comments: Encounter for Screening for Cardiovascular Disorders IHE Encounter Template Text not used by [place] Assessments - Encounter Diagnoses This section includes the primary and secondary diagnoses documented for the Encounter. Date/Time Primary/Secondary Diagnosis Name Provider Source Diagnosis May 15, 2022 PRIMARY Encounter for MONICA CUNHA [facility] 02:51 PM screening for [facility] cardiovascular disorders Plan of Treatment: Future Appointments (+ 6 months) and Future Tests (+/- 45 days) The Plan of Treatment section includes future care activities for the patient from all [place] [facility]. This section includes future appointments and future orders which are active, pending orscheduled.Future Appointments This section includes appointments that were scheduled to occur 6 months from the date of the Encounter, up to a maximum of 20 appointments. The data comes from all [facility]. Appointment Date/Time Appointment Type Appointment Facili ty Name Jun 19, 2022 01:15 PM AMBULATORY - NONE [facility] Jun 24, 2022 05:53 PM AMBULATORY - MEDICINE [facility] Jul 12, 2022 09:20 AM AMBULATORY - SURGERY [facility] Jul 19, 2022 08:00 AM AMBULATORY - MEDICINE [facility] Jul 19, 2022 09:00 AM AMBULATORY MEDICINE [facility] Active, Pending, and Scheduled Orders This section includes a listing of several types of active, pending, and scheduled orders, including clinic medications orders, diagnostic test orders, procedure orders and consult orders; where the start date of the order is 45 days before the date of the Encounter or 45 days after the date of the Encounter. The data comes from all [facility]. Test Date/Time Test Type Test Details Facility Name May 15, 2022 12:00 Laboratory - COVID-19 AND FLU/RSV DIAG [facility] AM Chemistry Order PANEL(CEPHEID) NASOPHARYNGEAL SWAB STAT ONCE Jun 24, 2022 06:55 Laboratory - EXTRA BLUE TUBE PLASMA WC [facility] PM Chemistry Order Jun 24, 2022 06:55 Laboratory - EXTRA GOLD GEL TUBE SERUM [facility] PM Chemistry Order Jun 24, 2022 06:55 Laboratory - EXTRA MINT TUBE PLASMA WC [facility] PM Chemistry Order Jun 24, 2022 06:55 Laboratory - EXTRA PURPLE TUBE BLOOD [facility] PM Chemistry Order Jun 25, 2022 03:59 Consult Order PROSTHETICS REQUEST Cons VILLA MAHER [facility] PM Technical Services Manager's Choice Lab Results: +/- 30 days of the encounter This section includes the Chemistry and Hematology Lab Results on record with [place] for the patient. Radiology Reports and Pathology Reports are provided separately, in subsequent sections.Lab Results This section contains the Chemistry/Hematology Results that were resulted 30 days before or 30 daysafter the date of the Encounter. Date/Time Source Result Type Result - Unit Interpretation Reference Range Comment May 15, 2022 10:57 [facility] TSH W/REFLEX TO FREE Spec imen Type: PLASMA AM T4 No comment enter ed. Ordering Provid er: ROSY FAITH Report Released Date/Time: April 11, 2022 12:04 PM Reporting Lab: [facility] [address] [facility] [address] Performing Lab: [facility] [address] [facility] [address] TSH 3.03 0.35-4.94 May 15, 2022 [facility] COMPREHENSIVE METABOLIC Spec imen Type: PLASMA 10:57 AM PANEL+MG No comment enter ed. Ordering Provid er: ROSY FAITH Report Released Date/Time: April 11, 2022 12:04 PM Reporting Lab: [facility] [address] [facility] [address] Performing Lab: [facility] [address] [facility] [address] CREATININE 1.2 0.7-1.2 UREA NITROGEN 25 8-26 [...] 2021 12:50 /min mm[Hg] in lb IS [facility] Social History: Smoking Status (Most [...] 2022 01:30 PM VA-TOBACCO FORMER USER [facility] Tobacco Use History This section includes a history of the smoking, or tobacco- related health factors, that were collected on or before the date of the Encounter. The data comes from the [facility] where the Encounter took place. Date/Time Smoking Status/Tobacco Use Comment Facil it Mar 05, 2022 01:30 PM VA-TOBACCO QUIT 1 TO < 5 YRS [facility] Jun 01, 2021 02:00 PM [facility] Dec 31, 2019 10:54 AM VA-TOBACCO FORMER USER [facility] Dec 31, 2019 10:54 AM VA-TOBACCO QUIT < 1 YEAR [facility] March 23, 2019 09:53 AM VA-TOBACCO FORMER USER [facility] March 23, 2019 09:53 AM VA-TOBACCO QUIT < 1 [facility] Jun 10, 2018 10:00 AM CURRENT TOBACCO USER [place] [facility] [facility] May 10, 2018 07:27 PM IN[place] COUN[place] [facility] May 10, 2018 07:27 PM INPT TOBACCO [facility] Aug 29, 2017 09:55 AM FORMER TOBACCO USE <1Y [facility] May 26, 2017 10:51 PM [facility] May 26, 2017 10:51 PM [place] [facility] May 03, 2017 09:34 PM INPT [place] COUN[place] [facility] May 03, 2017 09:34 PM [place] [facility] Sep 18, 2016 01:36 PM FORMER TOBACCO USE <1Y [facility] Aug 10, 2016 03:54 PM INPT TOBACCO USE - PT REFUSED [facility] Aug 01, 2016 06:48 PM INPT [place] COUN[place]ING [place] [facility] Aug 01, 2016 06:48 PM [place]PT [place] [facility] Feb 08, 2015 09:57 AM CURRENT TOBACCO USER [facility] Nov 29, 2013 10:37 AM CURRENT TOBACCO USER [facility] Nov 26, 2013 11:09 AM PATIENT IS TOBACCO USER [place] [facility] Nov 27, 2012 12:12 PM CURRENT [place]CO US[place] [facility] Dec 27, 2011 09:44 AM CURRENT TOBACCO USER [facility] Jan 22, 2011 02:38 PM CURRENT TOBACCO USER [facility] Mar 13, 2010 12:48 PM CURRENT TOBACCO USER [facility] Advance Directives: All historical and current Section Date Range: From patient's date of to the date document was created. This section includes ALL of a patient's completed or amended [place] Advance and Rescinded Directives. The entries below indicate that a directive exists for the patient, but an actual copy is not included with this document. The data comes from all [facility]. Date Advance Directives Provider Source Feb 25, 2018 ADVANCE DIRECTIVE ANDREWAURORA [facility] Feb 24, 2018 ADVANCE DIRECTIVE DISCUSSION AURORA MORALES [facility] May 26, 2017 CLINICAL WARNING MAGO CONTRERAS [facility] May 03, 2017 CLINICAL WARNING SARIAH ENGLE [facility] Aug 10, 2016 CLINICAL WARNING ISABEL BARCENAS [facility] Aug 02, 2016 CLINICAL WARNING AURORA ALMAZAN [facility] Radiology Reports: +/- 30 days of [...] the Encounter. The data comes from all [facility] facilities. Date/Time Radiology Report Provider Source May 15, 2022 01:23 PM CHEST 2 VIEWS PA AND LAT: DARIEN HERNANDEZ [facility] REGI MANTILLA KRISTOFER [id number] -APR 28, 194 8 M Exm Date: MAY 15, 2022@13:23 Req Phys: ROSY FAITH Pat Loc: [facility] CARDIAC E P MARCELL 3D (Req Img Loc: MAIN X-RAY Service: Unknown (Case [id number] COMPLETE) CHEST 2 VIEWS PA AND LAT (R AD Detailed) CPT:23234 Reason for Study: cough, SOB x 2 months; evalua te for edema/infiltrate Clinical History: [place] IS NOT under investigation for COVID-19 or is COVID-19 negative cough, SOB x 2 months Responsible provider name and phone number to notify for critical findings if other than user placing the order and pager listed below: User placing orders pager: [phone] LAST CREATININE 1.2 (05/15/22) Report Status: Verified Date Reported: MAY 15, 2022 Date Verified: MAY 15, 2022 Computer Repair Engineer E-Sig:/ES/DARIEN HERNANDEZ MD Report: CHEST 2 VIEWS [...] Primary Interpreting Staff: DARIEN HERNANDEZ MD, RADIOLOGIST (Computer Repair Engineer) /CDC Pathology Reports: +/- 30 days of [...] PM LR SURGICAL PATHOLOGY REPORT: SARAH MEDEL [facility] LOCAL TITLE: LR SURGICAL PATHOLOGY REPORT STANDARD TITLE: PATHOLOGY REPORT DATE OF NOTE: MAY 08, 2022@18:46:34 ENTRY DATE: MAY 08, 2022@18:46:34 AUTHOR: SARAH MEDELIGNER: URGENCY: STATUS: COMPLETED $APHDR Reporting Lab: [facility] [CLIA# [id number]] [place] [address] - - - - - - - [...] Performing Laboratory: Surgical Pathology Report Performed By: [facility] [CLIA# [id number]] [place] [address] $FTR - - - - - - [...] - - REGI MANTILLA STANDARD FORM 515 ID:[id number] SEX:M :1950 AGE: 72 LOC: 1153 PCP: Preet Anderson MD /mikal/ SARAH MEDEL MD STAFF PATHOLOGIST, PATHOLOGY & LABORATORY MED SV C Signed: 05/08/2022 18:46
--- OUTSIDE RECORDS SUMMARY | 2022-06-25 19:37 | XMS_ITS | Encounter Summary ---
:1950 Author Organization Department [facility] Address [address] [place] [address] Support Name Relationship Address Phone LAKIA MANTILLA Unavailable [phone] [place] [address] LAKIA MANTILLA Unavailable [phone] [place] [address] DHAVAL MANTILLA Unavailable [address] [place] [address] Insurance Providers: All historical and current Section [...] MEDICARE MEDICARE PART Jul 18, PART B [id number] ANNALEE BRYANIENT (WNR) (M) B 2014A [phone] ,REGI MEDICARE MEDICARE PART Apr 17, PART A [id number] ANNALEE BRYANIENT (WNR) (M) A 2012A [phone] ,REGI Selected Encounter This section includes the information on record at [place] for the Encounter. Date/Time Encounter Type Encounter Description Reason Provider Source May 03, 2022 04:48 Outpatient Encounter GI ENDOSCOPY PM IHE Encounter Template Text not used by [place] Plan of Treatment: Future Appointments (+ 6 months) and Future Tests (+/- 45 days) The Plan of Treatment section includes future care activities for the patient from all [place] treatmentfacilities. This section includes future appointments and future orders which are active, pending orscheduled.Future Appointments This section includes appointments that were scheduled to occur 6 months from the date of the Encounter, up to a maximum of 20 appointments. The data comes from all [place] treatment facilities. Appointment Date/Time Appointment Type Appointment Facili ty Name May 07, 2022 09:00 AM AMBULATORY - MEDICINE [facility] May 15, 2022 10:30 AM AMBULATORY - MEDICINE [facility] May 15, 2022 10:40 AM AMBULATORY - MEDICINE [facility] May 15, 2022 11:30 AM AMBULATORY - MEDICINE [facility] May 15, 2022 01:00 PM AMBULATORY - MEDICINE [facility] May 15, 2022 01:45 PM AMBULATORY - NONE [facility] Jun 19, 2022 01:15 PM AMBULATORY - NONE [facility] Jun 24, 2022 05:53 PM AMBULATORY - MEDICINE [facility] Jul 12, 2022 09:20 AM AMBULATORY - SURGERY [facility] Jul 19, 2022 08:00 AM AMBULATORY - MEDICINE [facility] Jul 19, 2022 09:00 AM AMBULATORY - MEDICINE [facility] Active, Pending, and Scheduled Orders This section includes a listing of several types of active, pending, and scheduled orders, including clinic medications orders, diagnostic test orders, procedure orders and consult orders; where the start date of the order is 45 days before the date of the Encounter or 45 days after the date of the Encounter. The data comes from all [place] treatment [facility]. Test Date/Time Test Type Test Details Facility Name May 15, 2022 12:00 Laboratory - COVID-19 AND FLU/RSV DIAG [facility] AM Chemistry Order PANEL(CEPHEID) NASOPHARYNGEAL SWAB [...] Reference Range Comment May 15, 2022 10:57 [facility] TSH W/REFLEX TO FREE Spec imen Type: PLASMA AM T4 No comment enter ed. Ordering Provid er: ROSY FAITH Report Released Date/Time: April 11, 2022 12:04 PM Reporting Lab: [facility] [address] [facility] [place] [address] Performing Lab: [facility] [address] [address] [facility] [place] [address] TSH 3.03 0.35-4.94 May 15, 2022 [facility] COMPREHENSIVE METABOLIC Spec imen Type: PLASMA 10:57 AM PANEL+MG No comment enter ed. Ordering Provid er: ROSY FAITH Report Released Date/Time: April 11, 2022 12:04 PM Reporting Lab: [facility] [address] [facility] [place] [address] Performing Lab: [facility] [address] [facility] [place] [address] CREATININE 1.2 0.7-1.2 UREA NITROGEN 25 8-26 [...] smoking and tobacco-related health factors from the [place] facility where the Encounter took place.Current Smoking Status This section includes the most current smoking, or tobacco-related health factor, from the [place] facility where the Encounter took place. Date/Time Current Smoking Status Comment Facility Mar 05, 2022 01:30 PM VA-TOBACCO FORMER USER [facility] Tobacco Use History This section includes a history of the smoking, or tobacco- related health factors, that were collected on or before the date of the Encounter. The data comes from the [place] facility where the Encounter took place. Date/Time Smoking Status/Tobacco Use Comment Katherine tapia Mar 05, 2022 01:30 PM VA-TOBACCO QUIT 1 TO < 5 YRS [facility] Jun 01, 2021 02:00 PM VA-TOBACCO NEVER USED [facility] Dec 31, 2019 10:54 AM VA-TOBACCO FORMER USER [facility] Dec 31, 2019 10:54 AM VA-TOBACCO QUIT < 1 YEAR M BARRYEAROSMERY [facility] March 23, 2019 09:53 AM VA-TOBACCO FORMER USER [facility] March 23, 2019 09:53 AM VA-TOBACCO QUIT < 1 YEAR M [facility]ATH[facility]OLIS [facility] Jun 10, 2018 10:00 AM CURRENT TOBACCO USER [facility] May 10, 2018 07:27 PM INPT TOBACCO COUNSELING [place] [facility] [facility] May 10, 2018 07:27 PM INPT TOBACCO USER [facility] GERDA [facility] Aug 29, 2017 09:55 AM FORMER TOBACCO USE <1Y [facility] May 26, 2017 10:51 PM INPT TOBACCO COUNSELING [place] [facility] [facility] May 26, 2017 10:51 PM INPT TOBACCO USER [facility] LIS [facility] May 03, 2017 09:34 PM INPT TOBACCO COUNSELING [place] [facility] May 03, 2017 09:34 PM INPT TOBACCO USER [facility] Sep 18, 2016 01:36 PM FORMER TOBACCO USE <1Y [facility] Aug 10, 2016 03:54 PM INPT TOBACCO USE - PT REFUSED [facility] Aug 01, 2016 06:48 PM [facility] Aug 01, 2016 06:48 PM INPT TOBACCO USER CAROLYNO [facility] Feb 08, 2015 09:57 AM CURRENT TOBACCO USER [facility] Nov 29, 2013 10:37 AM [facility] Nov 26, 2013 11:09 AM PATIENT IS TOBACCO USER ANAID EPPSPOLDAVID [facility] Nov 27, 2012 12:12 PM [facility] Dec 27, 2011 09:44 AM [facility] Jan 22, 2011 02:38 PM CURRENT [facility]BACCO USER [facility] Mar 13, 2010 12:48 PM CURRENT TOBACCO USER [facility] Advance Directives: All historical and current Section Date Range: From patient's date of to the date document was created. This section includes ALL of a patient's completed or amended [place] Advance and Rescinded Directives. The entries below indicate that a directive exists for the patient, but an actual copy is not included with this document. The data comes from all [place] facilities. Date Advance Directives Provider Source Feb 25, 2018 ADVANCE DIRECTIVE AURORA MORALES [facility] Feb 24, 2018 ADVANCE DIRECTIVE DISCUSSION AURORA MORALES [facility] May 26, 2017 CLINICAL WARNING MAGO CONTRERAS [facility] May 03, 2017 CLINICAL WARNING SARIAH ENGLE [facility] Aug 10, 2016 CLINICAL WARNING ISABEL BARCENAS [facility] Aug 02, 2016 CLINICAL WARNING AURORA ALMAZAN [facility] Radiology Reports: +/- 30 days of the [...] the Encounter. The data comes from all [place] treatment facilities. Date/Time Radiology Report Provider Source May 15, 2022 01:23 PM CHEST 2 VIEWS PA AND LAT: DARIEN HERNANDEZ [facility] REGI MANTILLA KRISTOFER [id number] -APR 28, 194 8 M Exm Date: MAY 15, 2022@13:23 Req Phys: ROSY FAITH Pat Loc: [facility] CARDIAC E P MARCELL 3D (Req Img Loc: MAIN X-RAY Service: Unknown (Case [id number] COMPLETE) CHEST 2 VIEWS PA AND LAT (R AD Detailed) CPT:69522 Reason for Study: cough, SOB x 2 months; evalua te for edema/infiltrate Clinical History: [place] IS NOT under investigation for COVID-19 or is COVID-19 negative cough, SOB x 2 months Responsible provider name and phone number to notify for critical findings if other than user placing the order and pager listed below: User placing orders pager: [phone] LAST CREATININE 1.2 (05/15/22) Report Status: Verified Date Reported: MAY 15, 2022 Date Verified: MAY 15, 2022 Technical Service Specialist E-Sig:/ES/DARIEN HERNANDEZ MD Report: CHEST 2 VIEWS [...] Primary Interpreting Staff: DARIEN HERNANDEZ MD, RADIOLOGIST (Technical Service Specialist) /CDC Pathology Reports: +/- 30 days of [...] the Encounter. The data comes from all [place] treatment facilities. Date/Time Pathology Report Provider Source May 08, 2022 06:46 PM LR SURGICAL PATHOLOGY REPORT: SARAH MEDEL [facility] LOCAL TITLE: LR SURGICAL PATHOLOGY REPORT STANDARD TITLE: PATHOLOGY REPORT DATE OF NOTE: MAY 08, 2022@18:46:34 ENTRY DATE: MAY 08, 2022@18:46:34 AUTHOR: SARAH MEDEL EXP COSIGNER: URGENCY: STATUS: COMPLETED $APHDR Reporting Lab: [facility] [CLIA# [id number]] [place] [address] - - - - - - - [...] - - - PATHOLOGY REPORT Accession No. -[id number] - - - - - [...] Performing Laboratory: Surgical Pathology Report Performed By: [facility] [CLIA# [id number]] [place] [address] $FTR - - - - - - - - - - - - - - - - - - - - - - - - - - - - - - - - - - - - - - - - (End of report) SARAH MEDEL MD [facility] Date May 08, 2022 - - - - - - - - - - - - - - - - - - - - - - - - - - - - - - - - - - - - - - - - DANIALEDILBERTOREGI MORRIS JAYLA STANDARD FORM 515 ID:[id number] SEX:M :1950 AGE: 72 LOC: 1153 PCP: Preet Anderson MD /mikal/ SARAH MEDEL MD STAFF PATHOLOGIST, PATHOLOGY & LABORATORY MED C Signed: 05/08/2022 18:46 Encounter Notes: All associated encounter notes This section contains the clinical notes associated to the Encounter. Date/Time Encounter Note(s) Provider Source May 07, 2022 11:37 AM GASTROENTEROLOGY PROCEDURE NOTE: [facility] LOCAL TITLE: CP GASTROENTEROLOGY PROCEDURE STANDARD TITLE: GASTROENTEROLOGY PROCEDURE NOTE DATE OF NOTE: MAY 07, 2022@11:37:39 ENTRY DATE: MAY 07, 2022@11:37:39 AUTHOR: CLINICAL,DEVICE PRO EXP COSIGNER: URGENCY: STATUS: COMPLETED PROCEDURE SUMMARY CODE: Machine Resulted DATE/TIME PERFORMED: MAY 07, 2022@09:00 DOCUMENT IN VISTA IMAGING SEE FULL REPORT IN VISTA IMAGING SIGNATURE NOT REQUIRED SEE SIGNATURE IN VISTA IMAGING (Provation (Colonoscopy)) AUTO-INSTRUMENT JEANE GNOSIS Procedure: NOTETYPE Nurse Note Release Status: Released Off-Line Verified Date Verified: May 07, 2022@11:37:37 COVID-19 ASSESSMENT User:tima Has the patient been tested for COVID-19:No Have you experienced any of the following sympto ms in the last 14 days:None Temperature (F):97.6 Comments: CHECK-IN User:[facility] Procedure:Colon Upper procedure indication:N/A Lower procedure indication:Yes Lower procedure indication:FIT + Patient identification:Name, Full Social Securit y Number, ID band on:Yes Care Plan - monitor for procedural or sedation r elated events and to promote patient comfort and safety:Yes Any questions or patient concerns:No Time of last solid food:Friday AM Time of last liquid intake:729 Prep taken:Yes Prep type:GoLytely, Magnesium Citrate Percentage of prep taken:90-100% Split:Yes Time prep finished:729 Last BM:Clear, Yellow Patient Labs:No Barrier to learning:No Can the patient sign their own consents:Yes Preferred Learning Style:Verbal Pre and post procedure teaching given to:Patient Pre and post-procedure teaching completed:Yes Method:Verbal, Pamphlets Response to teaching - Demonstrates by stating/acknowledging understandi and post-procedure/discharge instruc Patient Mobility:Ambulatory w/o assist Transportation after procedure:Yes Change Management Expert location:Waiting Room Drivers phone#:[phone] Change Management Expert's name / relationship:Alkia - Are we allowed to speak with your national dedicated truck driver about y our medical information post procedure:YES Anesthesia case:No Pre-Procedure / Active Medications Anticoagulant use - Patient Denies Use Anticoagulant use: - Patient Denies Use Antiplatelet use: - Patient Denies Use NSAID use - Patient Denies Use NSAID use: - Patient Denies Use Opioid antagonist use: - Patient Denies Use Steroid use - Patient Denies Use Aspirin use meloxicam Last Taken 05/10/2012 Prilosec ALLERGIES Iodine/Contrast Medium Allergy - Patient Denies Allergy - Iodine/Contrast Medium Allergy: - Patient Denies Allergy - Latex Allergy - Patient Denies Allergy - Latex Allergy: - Patient Denies Allergy - Lisinopril - Confirmed 05/07/2022 HEALTH HISTORY User:[facility] MEDICAL HISTORY status:N/A Cardiovascular:Yes Cardiovascular diagnoses:Atrial Fibrillation, ND (Myocardial Infarction), Stent(s) Comments: Pulmonary:Yes Pulmonary diagnoses:Recent hospitalization at [facility] for SOB Home O2: Comments: GI:Yes GI diagnoses:Hemorrhoids Family History: Comments: Diabetes:No Renal/Endocrine:No Neuro/Musculoskeletal:Yes Neuro/musculoskeletal diagnoses:Arthritis SCI patient: Comments: Miscellaneous / Infectious:No Psychiatric:No SURGICAL HISTORY Previous surgery:Yes Surgery:Knee replacement, History of problems with anesthesia:No Risk factors for post-sedation delirium:Yes Following risk factors:Age >70, Excessive Alcoho l Use SOCIAL HISTORY Nicotine/Smoking history:No Alcohol history:Yes Amount/frequency:4 drinks/day Last used:Friday Recreational drug use:Yes Substance name(s):Marijuana Frequency:Every couple hours ALERTS Alert Comments Last Updated By Last Updated On Latex Allergy Patient Denies Allergy Unconfirmed Iodine/Contrast Medium Allergy Patient Denies Al lergy Unconfirmed Lisinopril [facility] 05/07/2022 9:28:26 AM Latex Allergy: Patient Denies Allergy larsonc 9:28:30 AM Iodine/Contrast Medium Allergy: Patient Denies A llergy [facility] 05/07/2022 9:28:30 AM Metal - Right Knee Karyn Bryant 05/07/2022 9:39 :58 AM PATIENT ASSESSMENT - PREPROCEDURE User:KERMIT Time:05/07/2022 09:40 Level of conciousness:2 Fully awake Emotional Status:Calm, Cooperative Baseline pain:Yes Pain Score:2 Pain Location:Headache Pain medication last taken:Tylenol this morning Pain comments: Patients self reported pain during pre-procedure assessment will not be documented in every procedural assessment.: Skin:Warm, Dry, [place] Venous access device:No Pre-existing IV:No IV started:Yes IV Site:Right hand IV Type: Size:20 gauge IV Solution:Saline Lock IV Rate: Inserted by:Shwetha DALY PATIENT ASSESSMENT - INTRAPROCEDURE User:mendoza wolf Pt condition unchanged from pre-sedation assessm ent:Yes Dentures, glasses or hearing aid removed and sto red:N/A Loose Teeth:No Cardiac Rhythm Monitored:Yes Cardiac Rhythm:Sinus Rhythm, Bradycardia Comments: TIME OUT All team members must concur verbally to each it em on the checklist - Correct patient identification (full name, ful l Date of or Social Security number) - Correct Procedure (check order) - Correct site, including laterality if applicab le - Valid iMED consent for correct procedure - Patient position is confirmed - Pertinent medical images have been confirmed ( film or original report) - Correct medical implant(s) are available - Appropriate antibiotic prophylaxis - Appropriate deep vein thrombosis prophylaxis i f applicable - Blood availability if applicable TIME OUT - Fire Risk Assessment completed Time out: Post Procedure Debrief Nurse verbally confirms with team: To endoscopist, people manager and nurse: DISCHARGE QUESTIONS User:praneeth Pain now:No Cardiac Rhythm Monitored:Yes Cardiac Rhythm:Sinus Rhythm, Bradycardia Comments: IV Discontinued:Yes Time IV Discontinued:1119 Total Amount Infused (mL):500ml of NS IV Site Condition:Intact Wristband:Patient refused removal of wristband a t discharge. Patient was educated on the risk of improper disposal of patient wristband containing PH and PHI. Discharge Criteria met:Yes Post-procedure education completed:Yes Patient and/or Family given opportunity to ask q uestions and questions answered:Yes Patient and/or Family stated understanding of po st-procedure instructions:Yes Patient/family/caregiver include signs and sympto activity/diet/medication Discharge instructions/pamphlets given:Yes Topic(s):Colonoscopy, Diverticulosis, High fiber diet, Polyps, Date to restart Blood thinners, Hemorrhoids Follow up (months/years):3 years for survellianc e Released to:Self with adult when applicable Transportation after procedure:Yes Change Management Expert location:Waiting Room Drivers phone#:[phone] Change Management Expert's name / relationship:Lakia - Are we allowed to speak with your national dedicated truck driver about y our medical information post procedure:YES Comments:Pt. to restart apixaban tomorrow. Events Reporting Report ADR Hotline #[id number] Should any of the following occur during the pro cedure, forward a copy of this form to C.I. (OOD).: Adverse event(s):No Oxygen Time Method Rate Entered By Notes 10:23:16 Nasal Cannula 0 L HBS 10:04:23 Nasal Cannula 2 L HBS No Notes Taken Medications Time Medication Dose Entered By Notes 10:13:16 Versed IV 1 mg Total: 4 mg HBS 10:13:14 Fentanyl IV 25 mcg Total: 100 mcg HBS 10:04:02 Versed IV 1 mg HBS 10:04:00 Fentanyl IV 25 mcg HBS 10:01:23 Versed IV 2 mg HBS 10:01:21 Fentanyl IV 50 mcg HBS No Notes Taken Tina Score Time Activity Resp Circulation LOC O2 Sat Entere d By Total Score Notes 11:19:27 2 2 2 2 2 cintronr 10 10:41:44 2 2 1 1 2 HBS 8 10:25:43 2 2 1 1 2 HBS 8 No Notes Taken Vitals Time BP HR RESP O2 Sat CO2 Entered By 11:19:10 114/63 54 15 93 - cintronr 11:17:35 132/71 49 18 96 - cintronr 11:09:19 98/63 48 13 95 - cintronr 11:01:06 102/64 47 12 93 - cintronr 10:56:50 102/63 45 11 93 - cintronr 10:49:45 100/63 48 13 92 - cintronr 10:47:36 100/61 48 12 93 - cintronr 10:43:16 95/60 48 13 93 - HBS 10:41:26 85/55 45 10 95 - HBS 10:37:44 90/59 50 14 92 - HBS 10:28:44 85/52 48 16 94 - HBS 10:27:41 86/55 54 14 92 - HBS 10:25:00 94/58 53 17 95 - HBS 10:20:24 93/58 51 15 98 - HBS 10:17:58 90/56 51 14 98 - HBS 10:15:00 97/57 51 14 98 - HBS 10:13:54 97/55 53 16 98 - HBS 10:09:50 107/64 47 13 98 - HBS 10:06:48 106/59 55 17 96 - HBS 10:05:55 110/59 41 17 95 - HBS 10:02:55 125/67 57 20 94 - HBS 09:54:20 142/81 53 14 94 - HBS 09:42:19 126/94 53 16 94 - HBS No Notes Taken PROCEDURE LOG Time Data Entered By 11:19:35 Patient Activities : Getting dressed ci ntronr 11:19:23 Level of comfort : Comfortable cintronr 11:19:22 Level of conciousness : 2 Fully awake o r returned to presedation LOC cintronr 11:19:20 Pain now? : No cintronr 11:17:44 Level of comfort : Comfortable cintronr 11:17:43 Level of conciousness : 2 Fully awake o r returned to presedation LOC cintronr 11:17:41 Pain now? : No cintronr 11:09:31 Patient Activities : Sitting at side of bed,Denies dizziness/light headedness,Denies nausea,Offers no complaints,Drinking fluids cintronr 11:09:26 Level of comfort : Comfortable cintronr 11:09:25 Level of conciousness : 2 Fully awake o r returned to presedation LOC cintronr 11:09:23 Pain now? : No cintronr 11:01:13 Level of comfort : Comfortable cintronr 11:01:12 Level of conciousness : 1 Arousable on calling, presence of protective reflexes cintronr 11:01:10 Pain now? : No cintronr 10:56:58 Level of comfort : Comfortable cintronr 10:56:57 Level of conciousness : 1 Arousable on calling, presence of protective reflexes cintronr 10:56:54 Pain now? : No cintronr 10:49:53 Level of comfort : Comfortable cintronr 10:49:52 Level of conciousness : 1 Arousable on calling, presence of protective reflexes cintronr 10:49:50 Pain now? : No cintronr 10:47:43 Level of comfort : Comfortable cintronr 10:47:42 Level of conciousness : 1 Arousable on calling, presence of protective reflexes cintronr 10:47:41 Pain now? : No cintronr 10:43:26 Level of comfort : Comfortable HBS 10:43:25 Level of conciousness : 1 Arousable on calling, presence of protective reflexes HBS 10:43:21 Pain now? : No HBS 10:41:35 Level of comfort : Comfortable HBS 10:41:34 Level of conciousness : 1 Arousable on calling, presence of protective reflexes HBS 10:41:31 Pain now? : No HBS 10:37:49 Patient Monitoring : Level of comfort : Comfortable, Procedure tolerance : -, Level of conciousness : 1 Arousable on calling, presence of protective reflexes HBS 10:30:28 Notes: Dr. Thao alerted to low BPs. 500ml Nacl started HBS 10:28:54 Patient Monitoring : Level of comfort : Comfortable, Procedure tolerance : -, Level of conciousness : 2 Fully awake or returned to presedation LOC HBS 10:26:29 Pain now? : No HBS 10:25:36 Patient Monitoring : Level of comfort : Comfortable, Procedure tolerance : -, Level of conciousness : 2 Fully awake or returned to presedation LOC HBS 10:20:32 Patient Monitoring : Level of comfort : Comfortable, Procedure tolerance : Well,-, Level of conciousn ess : 1 Arousable on calling, presence of protective reflexes HBS 10:18:07 Patient Monitoring : Level of comfort : Comfortable, Procedure tolerance : Well,-, Level of conciousn ess : 1 Arousable on calling, presence of protective reflexes HBS 10:16:28 Pain now? : No HBS 10:16:27 Level of conciousness : 1 Arousable on calling, presence of protective reflexes HBS 10:16:25 Procedure tolerance : Well HBS 10:16:24 Response to medication/agent : Sedating HBS 10:16:21 Level of comfort : Comfortable HBS 10:14:01 Patient Monitoring : Level of comfort : Comfortable, Procedure tolerance : Well,-, Level of conciousn ess : 1 Arousable on calling, presence of protective reflexes HBS 10:09:56 Patient Monitoring : Level of comfort : Comfortable, Procedure tolerance : Well,-, Level of conciousn ess : 1 Arousable on calling, presence of protective reflexes HBS 10:07:15 Pain now? : No HBS 10:07:14 Level of conciousness : 1 Arousable on calling, presence of protective reflexes HBS 10:07:13 Procedure tolerance : Well HBS 10:07:12 Response to medication/agent : Sedating HBS 10:07:10 Level of comfort : Comfortable HBS 10:06:09 Pain now? : No HBS 10:06:09 Level of conciousness : 1 Arousable on calling, presence of protective reflexes HBS 10:06:08 Procedure tolerance : Well HBS 10:06:07 Response to medication/agent : Sedating HBS 10:06:04 Level of comfort : Comfortable HBS 10:03:10 Pain now? : No HBS 10:03:09 Level of conciousness : 2 Fully awake o r returned to presedation LOC HBS 10:03:08 Procedure tolerance : Well HBS 10:03:07 Response to medication/agent : Calming HBS 10:03:05 Level of comfort : Comfortable HBS 09:54:25 Patient Monitoring : Level of comfort : Comfortable, Procedure tolerance : -, Level of conciousness : 2 Fully awake or returned to presedation LOC HBS 09:43:14 Notes: MD aware of pt.'s recent hospita lization for SOB. HBS 09:42:34 Pain Location : Headache HBS 09:42:33 Pain score : 2 HBS 09:42:31 Pain now? : Yes HBS 09:42:22 Patient Monitoring : Level of comfort : Comfortable, Procedure tolerance : -, Level of conciousness : 2 Fully awake or returned to presedation LOC HBS Specimens Collected Jar Sample Type Procedure Lab Type Location Carina cation Entered By 1 Polypectomy Colonoscopy Histology Colon - Asce nding Polyp, R/O Adenoma HBS 2 Polypectomy Colonoscopy Histology Colon - Allred sverse R/O Adenoma, Polyp HBS 3 Polypectomy Colonoscopy Histology Colon - Desc ending Polyp, R/O Adenoma HBS 4 Polypectomy Colonoscopy Histology Colon - Sigm oid Polyp, R/O Adenoma HBS Time Tracking Time Event Entered By 11:28:37 Discharged cintronr 10:31:26 To recovery room with RN HBS 10:23:13 Recovery start HBS 10:23:12 Scope out HBS 10:06:53 Extent Reached HBS 10:04:35 Scope in HBS 09:58:56 Time out HBS 09:56:40 MD consenting patient HBS 09:56:39 MD in procedure room HBS 09:51:39 Patient in procedure room HBS 09:25:47 Preprocedure larsonc 09:04:00 Arrival larsonc IV Fuild Time Type Amount Infused Entered By 10:30:35 Normal Saline 500 cc Total: 500 cc HBS No Notes Entered Provider Signatures Jarett Garnica RN (cintronr) ESIGNED - 05/07/2022 11:37:22 Jessica Garcia (larsonc) ESIGNED - 05/07/2022 09: 28:40 Karyn Bryant RN (HBS) ESIGNED - 05/07/2022 10: 44:09 Administrative Closure: 05/07/2022 by: CLINICAL,DEVICE PROXY SERVICE May 07, 2022 10:33 AM GASTROENTEROLOGY PROCEDURE NOTE: [facility] LOCAL TITLE: CP GASTROENTEROLOGY PROCEDURE STANDARD TITLE: GASTROENTEROLOGY PROCEDURE NOTE DATE OF NOTE: MAY 07, 2022@10:33:52 ENTRY DATE: MAY 07, 2022@10:33:52 AUTHOR: CLINICAL,DEVICE PRO EXP COSIGNER: URGENCY: STATUS: COMPLETED PROCEDURE SUMMARY CODE: Machine Resulted DATE/TIME PERFORMED: MAY 07, 2022@09:00 DOCUMENT IN VISTA IMAGING SEE FULL REPORT IN VISTA IMAGING SIGNATURE NOT REQUIRED SEE SIGNATURE IN VISTA IMAGING (Provation (Colonoscopy)) AUTO-INSTRUMENT JEANE GNOSIS Procedure: [id number] GI PROCEDURE Release Status: Released Off-Line Verified Date Verified: May 07, 2022@10:33:42 Procedure: Colonoscopy Indications: Heme positive stool Medicines: Fentanyl IV 100 mcgs, Versed IV 4 mgs Complications: No immediate complications. Estim ated blood loss: None. Procedure: After I obtained informed consent, th e scope was passed under direct vision. Throughout the procedure, the patient's blood pressure, pulse, and oxygen saturations were monitored continuously. The Colonoscope was introduced through the anus and advanced to the terminal ileum, with identification of the appendiceal orifice and IC valve. The colonoscopy was performed without difficulty. The patient tolerated the procedure well. The quality of the bowel preparation was evaluated using the BBPS ([place] Bowel Preparation Scale) with scores of: Right Colon = 3, Transverse Colon = 3 and Left Colon = 3 (entire mucosa seen well with no residual staining, small fragments of stool or opaque liquid). The total BBPS score equals 9. Findings: The perianal and digital rectal examinations we re normal. The terminal ileum appeared normal. A 9 mm polyp was found in the ascending colon. The polyp was semi-sessile. The polyp was removed with a cold snare. Resection and retrieval were complete. A 2 mm polyp was found in the transverse colon. The polyp was sessile. The polyp was removed with a cold biop sy forceps. Resection and retrieval were complete. Two sessile polyps were found in the transverse colon. The polyps were 4 to 7 mm in size. These polyps were remov ed with a cold snare. Resection and retrieval were complete. A 10 mm polyp was found in the descending colon . The polyp was sessile. The polyp was removed with a cold snar e. Resection and retrieval were complete. A 3 mm polyp was found in the sigmoid colon. Th e polyp was sessile. The polyp was removed with a cold snar e. Resection and retrieval were complete. A few small-mouthed diverticula were found in t he sigmoid colon. Non-bleeding external and internal hemorrhoids were found during retroflexion. The hemorrhoids were moderate. The exam was otherwise without abnormality on d irect and retroflexion views. Moderate Sedation: Moderate (conscious) sedation was administered by the endoscopy nurse and supervised by the endoscopist. The pa tient's oxygen saturation, heart rate, blood pressure and resp onse to care were monitored. Impression: - The examined portion of the ileum was normal. - One 9 mm polyp in the ascending colon, removed with a cold snare. Resected and retrieved. - One 2 mm polyp in the transverse colon, removed with a cold biopsy forceps. Resected and retrieved. - Two 4 to 7 mm polyps in the transverse colon, removed with a cold snare. Resected and retrieved. - One 10 mm polyp in the descending colon, removed with a cold snare. Resected and retrieved. - One 3 mm polyp in the sigmoid colon, removed with a cold snare. Resected and retrieved. - Diverticulosis in the sigmoid colon. - Non-bleeding external and internal hemorrhoids. - The examination was otherwise normal on direct and retroflexion views. Recommendation: - Discharge patient to home (wit h escort). - Resume Eliquis (apixaban) at prior dose tomorrow. - Await pathology results. - Repeat colonoscopy in 3 years for surveillance. Malini Thao MD 05/07/2022 10:34:13 AM Number of Addenda: 0 Note Initiated On: 05/03/2022 5:[address] [facility] [id number] --- Administrative Closure: 05/07/2022 by: CLINICAL,DEVICE PROXY SERVICE
--- OUTSIDE RECORDS SUMMARY | 2022-06-25 19:37 | XMS_ITS | Encounter Summary ---
:1950 Author Organization [facility] Address [address] [place] [address] Support Name Relationship Address Phone MADELIN MANTILLA Unavailable [phone] [place] [address] MADELIN MANTILLA Unavailable [phone] [place] [address] DHAVAL MANTILLA Unavailable [address] [place] [address] Insurance Providers: All historical and current Section [...] MEDICARE MEDICARE PART Jul 18, PART B [id number] ANNALEE BRYANIENT (WNR) (M) B [id number] [phone] ,REGI MEDICARE MEDICARE PART Apr 17, PART A [id number] ANNALEE BRYANIENT (WNR) (M) A 2012A [phone] ,REGI Selected Encounter This section includes the information on record at [place] for the Encounter. Date/Time Encounter Type Encounter Reason Provider Source Description May 08, 2022 06:46 Outpatient EVENT (HISTORICAL) BRITNEY MEDEL PM Encounter IHE Encounter Template Text not used by [place] Plan of Treatment: Future Appointments (+ 6 [...] 20 appointments. The data comes from all [facility]. Appointment Date/Time Appointment Type Appointment Facili ty Name May 15, 2022 10:30 AM AMBULATORY - MEDICINE [facility] May 15, 2022 10:40 AM AMBULATORY - MEDICINE [facility] May 15, 2022 11:30 AM AMBULATORY - MEDICINE [facility] May 15, 2022 01:00 PM AMBULATORY - MEDICINE [facility] May 15, 2022 01:45 PM AMBULATORY - NONE [facility] Jun 19, 2022 01:15 PM AMBULATORY - NONE [facility] Jun 24, 2022 05:53 PM AMBULATORY - MEDICINE [facility] Jul 12, 2022 09:20 AM AMBULATORY - SURGERY [facility] Jul 19, 2022 08:00 AM AMBULATORY - MEDICINE [facility] Jul 19, 2022 09:00 AM AMBULATORY - MEDICINE [facility] Active, Pending, and Scheduled Orders This section includes a listing of several types of active, pending, and scheduled orders, including clinic medications orders, diagnostic test orders, procedure orders and consult orders; where the start date of the order is 45 days before the date of the Encounter or 45 days after the date of the Encounter. The data comes from all [facility]. Test Date/Time Test Type Test Details Facility Name May 15, 2022 12:00 Laboratory - COVID-19 AND FLU/RSV DIAG [facility] AM Chemistry Order PANEL(CEPHEID) NASOPHARYNGEAL SWAB STAT WC ONCE Lab Results: +/- 30 days of the encounter This section includes the Chemistry and Hematology Lab Results on record with [place] for the patient. Radiology Reports and Pathology Reports are provided separately, in subsequent sections.Lab Results This section contains the Chemistry/Hematology Results that were resulted 30 days before or 30 daysafter the date of the Encounter. Date/Time Source Result Type Result - Unit Interpretation Reference Range Comment May 15, 2022 10:57 [facility] TSH W/REFLEX TO FREE Spec imen Type: PLASMA AM T4 No comment enter ed. Ordering Provid er: ROSY FAITH Report Released Date/Time: April 11, 2022 12:04 PM Reporting Lab: [facility] [address] [facility] [address] Performing Lab: [facility] [address] [facility] [address] [facility] [address] TSH 3.03 0.35-4.94 May 15, 2022 [facility] COMPREHENSIVE METABOLIC Spec imen Type: PLASMA 10:57 AM PANEL+MG No comment enter ed. Ordering Provid er: ROSY FAITH Report Released Date/Time: April 11, 2022 12:04 PM Reporting Lab: [facility] [address] [facility] [address] Performing Lab: [facility] [address] [facility] [address] CREATININE 1.2 0.7-1.2 UREA NITROGEN 25 8-26 [...] smoking and tobacco-related health factors from the [place] facility where the Encounter took place.Current Smoking Status This section includes the most current smoking, or tobacco-related health factor, from the [place] facility where the Encounter took place. Date/Time Current Smoking Status Comment Facility Mar 05, 2022 01:30 PM VA-TOBACCO FORMER USER [facility] Tobacco Use History This section includes a history of the smoking, or tobacco- related health factors, that were collected on or before the date of the Encounter. The data comes from the [place] facility where the Encounter took place. Date/Time Smoking Status/Tobacco Use Comment Katherine tapia Mar 05, 2022 01:30 PM VA-TOBACCO QUIT 1 TO < 5 YRS [facility] Jun 01, 2021 02:00 PM VA-TOBACCO NEVER USED [facility] Dec 31, 2019 10:54 AM VA-TOBACCO FORMER USER [facility] Dec 31, 2019 10:54 AM VA-TOBACCO QUIT < 1 YEAR M [facility] March 23, 2019 09:53 AM VA-TOBACCO FORMER USER [facility] March 23, 2019 09:53 AM VA-TOBACCO QUIT < 1 YEAR M [facility] Jun 10, 2018 10:00 AM CURRENT TOBACCO USER [facility] HU[facility]RIESLIS [facility] May 10, 2018 07:27 PM INPT TOBACCO COUNSELING [place] [facility] May 10, 2018 07:27 PM INPT TOBACCO USER CAROLYNO GERDA [facility] Aug 29, 2017 09:55 AM FORMER TOBACCO USE <1Y [facility] May 26, 2017 10:51 PM INPT TOBACCO COUNSELING [place] [facility] May 26, 2017 10:51 PM INPT TOBACCO USER LAWSONAPO LIS [facility] May 03, 2017 09:34 PM INPT TOBACCO COUNSELING [place] [facility] May 03, 2017 09:34 PM INPT TOBACCO USER CAROLYNO [facility] Sep 18, 2016 01:36 PM FORMER TOBACCO USE <1Y [facility] Aug 10, 2016 03:54 PM INPT TOBACCO USE - PT REFUSED [facility] Aug 01, 2016 06:48 PM [facility] Aug 01, 2016 06:48 PM INPT TOBACCO USER CAROLYNO [facility] Feb 08, 2015 09:57 AM CURRENT TOBACCO USER [facility] JUAREZS [facility] Nov 29, 2013 10:37 AM [facility] Nov 26, 2013 11:09 AM PATIENT IS TOBACCO USER AANID EPPSPOLDAVID [facility] Nov 27, 2012 12:12 PM [address]BACCO USER [facility] KRISTELS [facility] Dec 27, 2011 09:44 AM CURRENT TOBACCO USER [facility] Jan 22, 2011 02:38 PM [facility]AC[facility] Mar 13, 2010 12:48 [address] [facility] Advance Directives: All historical and current Section Date Range: From patient's date of to the date document was created. This section includes ALL of a patient's completed or amended [place] Advance and Rescinded Directives. The entries below indicate that a directive exists for the patient, but an actual copy is not included with this document. The data comes from all [place] facilities. Date Advance Directives Provider Source Feb 25, 2018 ADVANCE DIRECTIVE AURORA MORALES [facility] Feb 24, 2018 ADVANCE DIRECTIVE DISCUSSION AURORA MORALES [facility] May 26, 2017 CLINICAL WARNING MAGO CONTRERAS [facility] May 03, 2017 CLINICAL WARNING SARIAH ENGLE [facility] Aug 10, 2016 CLINICAL WARNING ISABEL BARCENAS [facility] Aug 02, 2016 CLINICAL WARNING AURORA ALMAZAN [facility] Radiology Reports: +/- 30 days [...] the Encounter. The data comes from all [place] treatment facilities. Date/Time Radiology Report Provider Source May 15, 2022 01:23 PM CHEST 2 VIEWS PA AND LAT: DARIEN HERNANDEZ [facility] REGI MANTILLA KRISTOFER [id number] -APR 28, 194 8 M Exm Date: MAY 15, 2022@13:23 Req Phys: ROSY FAITH Pat Loc: [facility] CARDIAC E P MARCELL 3D (Req Img Loc: MAIN X-RAY Service: Unknown (Case [id number] COMPLETE) CHEST 2 VIEWS PA AND LAT (R AD Detailed) CPT:07351 Reason for Study: cough, SOB x 2 months; evalua te for edema/infiltrate Clinical History: [place] IS NOT under investigation for COVID-19 or is COVID-19 negative cough, SOB x 2 months Responsible provider name and phone number to notify for critical findings if other than user placing the order and pager listed below: User placing orders pager: [phone] LAST CREATININE 1.2 (05/15/22) Report Status: Verified Date Reported: MAY 15, 2022 Date Verified: MAY 15, 2022 Radio Frequency Technician E-Sig:/ES/DARIEN HERNANDEZ MD Report: CHEST 2 [...] Primary Interpreting Staff: DARIEN HERNANDEZ MD, RADIOLOGIST (Radio Frequency Technician) /CDC Pathology Reports: +/- 30 days [...] the Encounter. The data comes from all [place] treatment facilities. Date/Time Pathology Report Provider Source May 08, 2022 06:46 PM LR SURGICAL PATHOLOGY REPORT: SARAH MEDEL [facility] LOCAL TITLE: LR SURGICAL PATHOLOGY REPORT STANDARD TITLE: PATHOLOGY REPORT DATE OF NOTE: MAY 08, 2022@18:46:34 ENTRY DATE: MAY 08, 2022@18:46:34 AUTHOR: SARAH MEDEL EXP COSIGNER: URGENCY: STATUS: COMPLETED $APHDR Reporting Lab: [facility] [CLIA# [id number]] [place] [address] - - - - - - - [...] - - - PATHOLOGY REPORT Accession No. -[id number] - - - - - [...] colon - sigmoid and consists of three pink-rboin tissue fragments measuring 0.3 cm in aggregate. CE. Milton NaranjoPA/cc MICROSCOPIC DESCRIPTION: Microscopic examination performed. DIAGNOSIS: SPEC.1. [...] Performing Laboratory: Surgical Pathology Report Performed By: [facility] [CLIA# [id number]] [place] [address] $FTR - - - - - - - - - - - - - - - - - - - - - - - - - - - - - - - - - - - - - - - - (End of report) SARAH MEDEL MD [facility] Date May 08, 2022 - - - - - - - - - - - - - - - - - - - - - - - - - - - - - - - - - - - - - - - - REGI MANTILLA STANDARD FORM 515 ID:[id number] SEX:M :1950 AGE: 72 LOC: 1153 PCP: Preet Anderson MD /mikal/ SARAH MEDEL MD STAFF PATHOLOGIST, PATHOLOGY & LABORATORY MED SV C Signed: 05/08/2022 18:46 Encounter Notes: All associated encounter notes This section contains the clinical notes associated to the Encounter. Date/Time Encounter Note(s) Provider Source May 08, 2022 06:46 PM PATHOLOGY REPORT: SARAH MEDEL [facility] LOCAL TITLE: LR SURGICAL PATHOLOGY REPORT STANDARD TITLE: PATHOLOGY REPORT DATE OF NOTE: MAY 08, 2022@18:46:34 ENTRY DATE: MAY 08, 2022@18:46:34 AUTHOR: SARAH MEDEL EXP COSIGNER: URGENCY: STATUS: COMPLETED $APHDR Reporting Lab: [facility] [CLIA# [id number]] [place] [address] - - - - - - - [...] fragments measuring 0.3 cm in aggregate. RADHA oSn/cc MICROSCOPIC DESCRIPTION: Microscopic examination performed. DIAGNOSIS: SPEC.1. [...] Performing Laboratory: Surgical Pathology Report Performed By: [facility] [CLIA# [id number]] [place] [address] $FTR - - - - - - - - - - - - - - - - - - - - - - - - - - - - - - - - - - - - - - - - (End of report) SARAH MEDEL MD [facility] Date May 08, 2022 - - - - - - - - - - - - - - - - - - - - - - - - - - - - - - - - - - - - - - - - REGI MANTILLA STANDARD FORM 515 ID:[id number] SEX:M :1950 AGE: 72 LOC: 1153 PCP: Preet Anderson MD /mikal/ SARAH MEDEL MD STAFF PATHOLOGIST, PATHOLOGY & LABORATORY MED SV C Signed: 05/08/2022 18:46
--- OUTSIDE RECORDS SUMMARY | 2022-06-25 19:37 | XMS_ITS | Encounter Summary ---
:1950 Author Organization Department [facility] Address [address] [place] [address] Support Name Relationship Address Phone MADELIN MANTILLA Unavailable [phone] [place] [address] MADELIN MANTILLA Unavailable [address] [phone] [place] [address] DHAVAL MANTILLA Unavailable [address] [place] [address] Insurance Providers: All historical and current Section [...] MEDICARE MEDICARE PART Jul 18, PART B [id number] ANNALEE BUSTILLO (WNR) (M) B 2014A [phone] ,REGI MEDICARE MEDICARE PART Apr 17, PART A [id number] 800 ANNALEE BRYANIENT (WNR) (M) A 2012A [phone] ,REGI Selected Encounter This section includes the information on record at [place] for the Encounter. Date/Time Encounter Type Encounter Reason Provider Source Description May 07, 2022 COLONOSCOPY AND GI ENDOSCOPY ICD-10-CM K64.8 REININK,AND RE 09:00 AM BIOPSY Other W R hemorrhoids with Provider Comments: Other Hemorrhoids IHE Encounter Template Text not used by [place] Assessments - Encounter Diagnoses This section includes the primary and secondary diagnoses documented for the Encounter. Date/Time Primary/Secondary Diagnosis Name Provider Source Diagnosis May 07, 2022 PRIMARY Other hemorrhoids [facility] [place] [facility] 01:11 PM LADY Aggarwal [facility] May 07, 2022 SECONDARY Dvrtclos of lg int [facility] [place] [facility] 01:11 PM w/o perforation or N,LADY [facility] abscess w/o bleeding May 07, 2022 SECONDARY Other fecal [facility] 01:11 PM abnormalities N,LADY [facility] May 07, 2022 SECONDARY Polyp of [facility] 01:11 PM N,LADY [facility] Plan of Treatment: Future Appointments (+ 6 months) and Future Tests (+/- 45 days) The Plan of Treatment section includes future care activities for the patient from all [place] [facility]. This section includes future appointments and future orders which are active, pending orscheduled.Future Appointments This section includes appointments that were scheduled to occur 6 months from the date of the Encounter, up to a maximum of 20 appointments. The data comes from all [facility]. Appointment Date/Time Appointment Type Appointment Facili ty Name May 15, 2022 10:30 AM AMBULATORY - MEDICINE [facility] May 15, 2022 10:40 AM AMBULATORY - [facility]ICINE [facility] May 15, 2022 11:30 AM AMBULATORY - [facility]ICINE [facility] May 15, 2022 01:00 PM AMBULATORY - MEDICINE [facility] May 15, 2022 01:45 PM AMBULATORY - NONE [facility] Jun 19, 2022 01:15 PM AMBULATORY - NONE [facility] Jun 24, 2022 05:53 PM AMBULATORY - MEDICINE [facility] Jul 12, 2022 09:20 AM AMBULATORY - SURGERY [facility] Jul 19, 2022 08:00 AM AMBULATORY - MEDICINE [facility] Jul 19, 2022 09:00 AM AMBULATORY - MEDICINE [facility] Active, Pending, and Scheduled Orders This section includes a listing of several types of active, pending, and scheduled orders, including clinic medications orders, diagnostic test orders, procedure orders and consult orders; where the start date of the order is 45 days before the date of the Encounter or 45 days after the date of the Encounter. The data comes from all [facility]. Test Date/Time Test Type Test Details Facility Name May 15, 2022 12:00 Laboratory - COVID-19 AND FLU/RSV DIAG [facility] AM Chemistry Order PANEL(CEPHEID) NASOPHARYNGEAL SWAB STAT [...] Reference Range Comment May 15, 2022 10:57 [facility] TSH W/REFLEX TO FREE Spec imen Type: PLASMA AM T4 No comment enter ed. Ordering Provid er: ROSY FAITH Report Released Date/Time: April 11, 2022 12:04 PM Reporting Lab: [facility] [address] Performing Lab: [facility] [address] TSH 3.03 0.35-4.94 May 15, 2022 [facility] COMPREHENSIVE METABOLIC Spec imen Type: PLASMA 10:57 AM PANEL+MG No comment enter ed. Ordering Provid er: ROSY FAITH Report Released Date/Time: April 11, 2022 12:04 PM Reporting Lab: [facility] [address] Performing Lab: [facility] [address] CREATININE 1.2 0.7-1.2 UREA NITROGEN 25 8-26 [...] 2022 01:30 PM VA-TOBACCO FORMER USER [facility] Tobacco Use History This section includes a history of the smoking, or tobacco- related health factors, that were collected on or before the date of the Encounter. The data comes from the [place] facility where the Encounter took place. Date/Time Smoking Status/Tobacco Use Comment Facil ity Mar 05, 2022 01:30 PM VA-TOBACCO QUIT 1 TO < 5 YRS [facility] Jun 01, 2021 02:00 PM [facility]-TOBACCO [facility] USED [facility] Dec 31, 2019 10:54 AM VA-TOBACCO FORMER USER [facility] Dec 31, 2019 10:54 AM VA-TOBACCO QUIT < 1 YEAR M [facility] March 23, 2019 09:53 AM VA-TOBACCO FORMER USER [facility] March 23, 2019 09:53 AM [place]-TOBACCO QUIT < 1 YEAR M [facility] Jun 10, 2018 10:00 AM CURRENT TOBACCO USER [facility] May 10[facility] 2018 07:27 PM [place] [facility] [facility] May 10, 2018 07:27 PM IN[place]AC[place] [facility] Aug 29, 2017 09:55 AM FORMER TOBACCO USE <1Y [facility] May 26, 2017 10:51 PM [facility] May 26, 2017 10:51 PM [place]AC[place] [facility] May 03, 2017 09:34 PM [facility] May 03, 2017 09:34 PM [place]PT [place]ACCO [place] [facility] Sep 18, 2016 01:36 PM FORMER TOBACCO USE <1Y [facility] Aug 10, 2016 03:54 PM INPT TOBACCO USE - PT REFUSED [facility] Aug 01, 2016 06:48 PM [facility] [place] [facility] Aug 01, 2016 06:48 PM [place]PT [place]AC[place] [facility] Feb 08, 2015 09:57 AM CURRENT TOBACCO USER [place] [facility] Nov 29, 2013 10:37 AM CURRENT [place]BACCO [facility] [facility] Nov 26, 2013 11:09 AM PATIENT [place]BACCO [place] [facility] Nov 27, 2012 12:12 PM CURRENT TOBACCO USER [facility] Dec 27, 2011 09:44 AM CURRENT [place]BACCO [place] [facility] Jan 22, 2011 02:38 PM CURRENT [place]BACCO [facility] [facility] Mar 13, 2010 12:48 PM CURRENT TOBACCO USER [facility] Advance Directives: All historical and current Section Date Range: From patient's date of to the date document was created. This section includes ALL of a patient's completed or amended [place] Advance and Rescinded Directives. The entries below indicate that a directive exists for the patient, but an actual copy is not included with this document. The data comes from all [facility]. Date Advance Directives Provider Source Feb 25, 2018 ADVANCE DIRECTIVE AURORA MORALES [facility] Feb 24, 2018 ADVANCE DIRECTIVE DISCUSSION AURORA MORALES [facility] May 26, 2017 CLINICAL WARNING MAGO CONTRERAS [facility] May 03, 2017 CLINICAL WARNING SARIAH ENGLE [facility] Aug 10, 2016 CLINICAL WARNING ISABEL BARCENAS [facility] Aug 02, 2016 CLINICAL WARNING ALMAZAN,AURORA Carla [facility] Radiology Reports: +/- 30 days [...] 2 VIEWS PA AND LAT: DARIEN HERNANDEZ [facility] REGI MANTILLA KRISTOFER [id number] -APR 28 194 8 M Exm Date: MAY 15, 2022@13:23 Req Phys: ROSY FAITH Pat Loc: [facility] CARDIAC E P MARCELL 3D (Req Img Loc: MAIN X-RAY Service: Unknown (Case [id number] COMPLETE) CHEST 2 VIEWS PA AND LAT (R AD Detailed) CPT:26232 Reason for Study: cough, SOB x 2 months; evalua te for edema/infiltrate Clinical History: IS NOT under investigation for COVID-19 or is COVID-19 negative cough, SOB x 2 months Responsible provider name and phone number to notify for critical findings if other than user placing the order and pager listed below: User placing orders pager: [phone] LAST CREATININE 1.2 (05/15/22) Report Status: Verified Date Reported: MAY 15, 2022 Date Verified: MAY 15, 2022 Conference Coordinator E-Sig:/ES/DARIEN HERNANDEZ MD Report: CHEST 2 VIEWS [...] Primary Interpreting Staff: DARIEN HERNANDEZ MD, RADIOLOGIST (Conference Coordinator) /CDC Pathology Reports: +/- 30 days of [...] PM LR SURGICAL PATHOLOGY REPORT: SARAH MEDEL [facility] LOCAL TITLE: LR SURGICAL PATHOLOGY REPORT STANDARD TITLE: PATHOLOGY REPORT DATE OF NOTE: MAY 08, 2022@18:46:34 ENTRY DATE: MAY 08, 2022@18:46:34 AUTHOR: SARAH MEDEL EXP COSIGNER: URGENCY: STATUS: COMPLETED $APHDR Reporting Lab: [facility] [CLIA# [id number]] [place] [address] - - - - - - - [...] Performing Laboratory: Surgical Pathology Report Performed By: [facility] [CLIA# [id number]] [place] [address] $FTR - - - - - - [...] - - REGI MANTILLA STANDARD FORM 515 ID:[id number] SEX:M :1950 AGE: 72 LOC: 1153 PCP: Preet Anderson MD /mikal/ SARAH MEDEL MD STAFF PATHOLOGIST, PATHOLOGY & LABORATORY MED SV C Signed: 05/08/2022 18:46 Encounter Notes: All associated encounter notes This section contains the clinical notes associated to the Encounter. Date/Time Encounter Note(s) Provider Source May 09, 2022 08:51 LETTERS: MALINI THAO [facility] LOCAL TITLE: FOLLOW UP RESULTS LETTER STANDARD TITLE: LETTERS DATE OF NOTE: MAY 09, 2022@08:51 ENTRY DATE: MAY 09, 2022@08:51:17 AUTHOR: MALINI THAO EXP COSIGNER: URGENCY: STATUS: COMPLETED [facility] [place] [address] Apr REGI MANTILLA [address] [facility] [address] Dear : I am writing to inform you of the test results p erformed Apr for the following: Colonoscopy Results of microscopic examination: Polyp - Adenoma x 5 Polyp - Hyperplastic x 1 DIAGNOSIS: SPEC.1. Colon, ascending, polypectomy -- - [...] hyperplastic polyp - no evidence of malignancy Explanation of pathology results: An adenoma is a type of polyp that if left in th e colon, could over a period of years, grow larger and/or even turn into a cancer, although most do not. A hyperplastic polyp is a benign polyp that does not require any special follow up. After reviewing your results I recommend you com plete a follow-up colonoscopy in 3 years. If you have any questions, the GI department can be called between the hours of 7:30 a.m. and 3:30 p.m., Mo - Friday. The GI department can be reached at or toll free at [phone]. Sincerely, MALINI THAO MD GASTROENTEROLOGY STAFF PHYSICIAN May 07, 2022 01:09 GASTROENTEROLOGY CONSULT: FRANDY HEIN [facility] LOCAL TITLE: GASTROENTEROLOGY CONSULT [place] STANDARD TITLE: GASTROENTEROLOGY CONSULT DATE OF NOTE: MAY 07, 2022@13:09 ENTRY DATE: MAY 07, 2022@13:09:50 AUTHOR: WOLF HEIN EXP COSIGNER: URGENCY: STATUS: COMPLETED This patient's Colonoscopy was completed on Apr. Please see the G.I. Clinical Procedure (CP) cons ult or [facility] with this date for further information. /mikal/ LADY HEIN RN REGISTERED NURSE Signed: 05/07/2022 13:10 May 07, 2022 09:59 GASTROENTEROLOGY PREPROCEDURE NOTE: Seymour THAO [facility] AM LOCAL TITLE: GI PRE-PROCEDURE NOTE STANDARD TITLE: GASTROENTEROLOGY PREPROCEDURE NO TE DATE OF NOTE: MAY 07, 2022@09:59 ENTRY DATE: MAY 07, 2022@09:59:46 AUTHOR: MALINI THAO EXP COSIGNER: URGENCY: STATUS: COMPLETED Gastroenterology Pre-procedure Assessment: Procedure planned: Colonoscopy Pre-Op Diagnosis or Indication for Procedure: Positive FOBT Problem list Active problems - Computerized Problem List is the source for the followin. Benign essential hypertension (SNOMED CT 120 1002) 2. Hearing loss * 3. HTN - Hypertension (SNOMED CT 25662897) 4. Hyperlipidemia (SNOMED CT 21827655) 5. Alcohol abuse (SNOMED CT 66307838) 6. Cannabis abuse (SNOMED CT 64704201) 7. Pain in joint involving shoulder region - RIGHT 8. Anemia (SNOMED CT 231448438) 9. Jt Replcmnt Stat, Knee 10. Gastroesophageal reflux disease (SNOMED CT 2 25326565) 11. CAD - Coronary artery disease - s/p stenting 12. Acute non-ST segment elevation myocardial in farction 13. Chronic kidney disease 14. Rib fracture - s/p fall 11/2018, RIGHT rib 15. Pain of right shoulder joint 16. Hand pain 17. Ankle pain 18. Rhinitis 19. Seropositive rheumatoid arthritis 20. Multifocal atrial tachycardia - hospitalized at OSH in 02/2022 21. Elevated liver enzymes level 22. Paroxysmal atrial fibrillation 23. Long-term current use of anticoagulant Active Outpatient Medications (including Supplie s): Active [...] TABLETS BY MOUTH ACTIVE TWICE A DAY Allergies: LISINOPRIL (Jun 01, 2021) Mallampati Score: 2: (Visibility of hard and sof t palate, upper portion of tonsils and uvula) Airway: Within normal limits Exam: Heart and lungs within normal limits Lab PT____ INR____ HCT: 41.7 (09/28/21) 38.7 (01/11/22) HGB: 14.0 (09/28/21) 13.1 (01/11/22) IPF: 4.4 (06/01/21) MCH: 34.9 (09/28/21) 35.9 (01/11/22) MCHC: 33.6 (09/28/21) 33.9 (01/11/22) MCV: 104.0 (09/28/21) 106.0 (01/11/22) MPV: 10.2 (09/28/21) 10.0 (01/11/22) PLT: 243 (09/28/21) 235 (01/11/22) RBC: 4.01 (09/28/21) 3.65 (01/11/22) RDW: 13.3 (09/28/21) 14.3 (01/11/22) WBC: 11.98 (09/28/21) 10.65 (01/11/22) Other Lab tests: [place] [employer] Anesthesiologists (ASA) Cla ssification: III Sedation Plan: Moderate sedation I have reviewed the patient's pre-procedure bas nataliia level of consciousness, current vital signs, time and nature of last or al intake, and any previous adverse experiences with sedation as documented in the Provation Multi-Care note. The procedure report can be viewed in the Repor ts tab-->procedures or in [facility]. /es/ MALINI THAO MD GASTROENTEROLOGY STAFF PHYSICIAN Signed: 05/07/2022 10:00
--- OUTSIDE RECORDS SUMMARY | 2022-06-25 19:37 | XMS_ITS | Encounter Summary ---
:1950 Author Organization [facility] Address [address] [place] [address] Support Name Relationship Address Phone MADELIN MANTILLA Unavailable [phone] [place] [address] MADELIN MANTILLA Unavailable [phone] [place] [address] DHAVAL MANTILLA Unavailable [address] [place] [address] Insurance Providers: All historical and current Section [...] MEDICARE MEDICARE PART Jul 18, PART B [id number] ANNALEE BRYANIENT (WNR) (M) B 2014A [phone] ,REGI MEDICARE MEDICARE PART Apr 17, PART A [id number] 800 ANNALEE BRYANIENT (WNR) (M) A [phone] ,REGI Selected Encounter This section includes the information on record at [place] for the Encounter. Date/Time Encounter Type Encounter Description Reason Provider Source May 15, 2022 10:25 Outpatient Encounter PULMONARY FUNCTION AM IHE Encounter Template Text not used [...] 24, 2022 05:53 PM AMBULATORY - MEDICINE [facility] CS Jul 12, 2022 09:20 AM AMBULATORY - SURGERY [facility] S Jul 19, 2022 08:00 AM AMBULATORY - MEDICINE [facility] Jul 19, 2022 09:00 AM AMBULATORY - MEDICINE [facility] Active, Pending, and Scheduled Orders This [...] The data comes from all [place] treatment [facility]. Test Date/Time Test Type Test Details Facility Name May 15, 2022 12:00 Laboratory - COVID-19 AND FLU/RSV DIAG [facility] AM Chemistry Order PANEL(CEPHEID) NASOPHARYNGEAL SWAB STAT WC ONCE Jun 24, 2022 06:55 Laboratory - EXTRA BLUE TUBE PLASMA WC [facility] PM Chemistry Order Jun 24, 2022 06:55 Laboratory - EXTRA GOLD GEL TUBE SERUM [facility] PM Chemistry Order Jun 24, 2022 06:55 Laboratory - EXTRA PURPLE TUBE BLOOD [facility] PM Chemistry Order Jun 24, 2022 06:55 Laboratory - EXTRA MINT TUBE PLASMA WC [facility] PM Chemistry Order Jun 25, 2022 03:59 Consult Order PROSTHETICS REQUEST Cons [facility] PM Insurance Billing Clerk's Choice Lab Results: +/- 30 days of [...] April 11, 2022 12:04 PM Reporting Lab: [facility] [place] [place] [facility] [address] Performing Lab: [facility] [place] [facility] [address] TSH 3.03 0.35-4.94 May 15, 2022 [facility] COMPREHENSIVE METABOLIC Spec imen Type: PLASMA 10:57 AM PANEL+MG No comment enter ed. Ordering Provid er: ROSY FAITH Report Released Date/Time: April 11, 2022 12:04 PM Reporting Lab: [facility] [address] Performing Lab: [facility] ONE [facility] [address] CREATININE 1.2 0.7-1.2 UREA NITROGEN 25 8-26 [...] [place] 2021 12:50 /min mm[Hg] in lb [facility] Social History: Smoking Status (Most current) and [...] took place. Date/Time Smoking Status/Tobacco Use Comment [facility] Mar 05, 2022 01:30 PM VA-TOBACCO QUIT 1 TO < 5 YRS [facility] Jun 01, 2021 02:00 PM [place]-TO[place]ACCO NEVER USED [place] [facility] Dec 31, 2019 10:54 AM [facility]BACCO [facility] Dec 31, 2019 10:54 AM VA-TOBACCO QUIT < 1 YEAR [place] [facility] March 23, 2019 09:53 AM VA-TOBACCO FORMER USER [facility] March 23, 2019 09:53 AM VA-TOBACCO QUIT < 1 YEAR [place] [facility] Jun 10, 2018 10:00 AM CURRENT TOBACCO USER [place] [facility] May 10, 2018 07:27 PM INPT [place]AC[place] COUNSEL[place] [facility] May 10, 2018 07:27 PM INPT [place] [facility] Aug 29, 2017 09:55 AM FORMER TOBACCO USE <1Y [facility] May 26, 2017 10:51 PM INPT [place] COUNSEL[place] [facility] May 26, 2017 10:51 PM INPT [place] [facility] May 03, 2017 09:34 PM INPT [place] COUNSELING [place] [facility] May 03, 2017 09:34 PM INPT [place] [facility] Sep 18, 2016 01:36 PM FORMER TOBACCO USE <1Y [facility] Aug 10, 2016 03:54 PM INPT TOBACCO USE - PT REFUSED [facility] Aug 01, 2016 06:48 PM INPT [place]BACCO COUNSELING [place] [facility] Aug 01, 2016 06:48 PM INPT [place] [facility] Feb 08, 2015 09:57 AM CURRENT TOBACCO USER [place] [facility] Nov 29, 2013 10:37 AM CURRENT TOBACCO USER [place] [facility] Nov 26, 2013 11:09 AM PATIENT IS TOBACCO USER [place] [facility] Nov 27, 2012 12:12 PM CURRENT TOBACCO USER [place] [facility] Dec 27, 2011 09:44 AM CURRENT TOBACCO USER [place] [facility] Jan 22, 2011 02:38 PM CURRENT TOBACCO USER [place] [facility] Mar 13, 2010 12:48 PM CURRENT TOBACCO USER [place] [facility] Advance Directives: All historical [...] [facility] May 26, 2017 CLINICAL WARNING DIANEMAGO Nina [facility] May 03, 2017 CLINICAL WARNING [...] DARIEN HERNANDEZ [facility] REGI MANTILLA KRISTOFER [id number] -APR 28, 194 8 M Exm Date: MAY 15, 2022@13:23 Req Phys: ROSY FAITH Pat Loc: [facility] CARDIAC E P MARCELL 3D (Req Img Loc: MAIN X-RAY Service: Unknown (Case [id number] COMPLETE) CHEST 2 VIEWS PA AND LAT (R AD Detailed) CPT:38355 Reason for Study: cough, SOB x 2 months; evalua te for edema/infiltrate Clinical History: IS NOT under investigation for COVID-19 or is COVID-19 negative cough, SOB x 2 months Responsible provider name and phone number to notify for critical findings if other than user placing the order and pager listed below: User placing orders pager: [phone] LAST CREATININE 1.2 (05/15/22) Report Status: Verified Date Reported: MAY 15, 2022 Date Verified: MAY 15, 2022 Ironer E-Sig:/ES/DARIEN HERNANDEZ MD Report: CHEST 2 VIEWS [...] Primary Interpreting Staff: DARIEN HERNANDEZ MD, RADIOLOGIST (Ironer) /CDC Pathology Reports: +/- 30 days of [...] COMPLETED $APHDR Reporting Lab: [facility] [CLIA# [id number]] [place] [address] - - - - - - - [...] - descending and consi sts of three pink-roibn tissue fragments the first measuring 1.2 x [...] Pathology Report Performed By: [facility] [CLIA# [id number]] [place] [address] $FTR - - - - - - [...] - - REGI MANTILLA STANDARD FORM 515 ID:[id number] SEX:M :1950 AGE: 72 LOC: 1153 PCP: Preet Anderson MD /mikal/ SARAH MEDEL MD STAFF PATHOLOGIST, PATHOLOGY & LABORATORY MED C Signed: 05/08/2022 18:46 Encounter Notes: All associated encounter notes This section contains the clinical notes associated to the Encounter. Date/Time Encounter Note(s) Provider Source May 15, 2022 02:40 PM PULMONARY PROCEDURE NOTE: [facility] LOCAL TITLE: CP PULMONARY FUNCTION TEST STANDARD TITLE: PULMONARY PROCEDURE NOTE DATE OF NOTE: MAY 15, 2022@14:40:24 ENTRY DATE: MAY 15, 2022@14:40:24 AUTHOR: CLINICAL,DEVICE PRO EXP COSIGNER: URGENCY: STATUS: COMPLETED PROCEDURE SUMMARY CODE: Machine Resulted DATE/TIME PERFORMED: MAY 15, 2022@10:35:2 DOCUMENT IN [facility] SEE FULL REPORT IN [facility]IST[facility]ING SIGNATURE NOT REQUIRED SEE SIGNATURE IN [employer] [facility] (VYAIRE (CP)) AUTO-INSTRUMENT DIAGNOSIS Procedure: Release Status: Released Off-Line Verified Date Verified: May 15, 2022@14:40:21 ..[email or web address]: [id number] Last Name: ANNALEE Firstname: REGI Date of : [id number] Gender: M Height: 60 inch Weight: 122 lbs Measurement d005/15/22 Measurement ti10:38AM Spirometry Ref LLN Pre % Ref FVC L 2.81 2.06 3.04 108.3 FEV 1 L 2.17 1.54 2.00 92.2 FEV1/FVC % 77 63 66 PEF L/s 5.82 4.12 4.49 77.2 Diffusing Capacity Ref LLN Pre %Ref DLCO_SBml/(min*m18.05 13.21 14.69 81.4 DLCOcSBml/(min*m18.05 13.21 15.38 85.2 Hb g(Hb)/dL 13.00 13.10 Parameter FVC FEV1 FEV1/FVC TLC RV DLCO_SB 09/30/2018 3.71 2.51 68 05/15/2022 3.04 2.00 66 14.69 Interpretation: Spirometry is Normal. Diffusing capacity is norm al. Compared to previous test on (09/30/18), worse. signed by: Brandin Trinh MD [id number] Administrative Closure: 05/15/2022 by: CLINICAL,DEVICE PROXY SERVICE
--- OUTSIDE RECORDS SUMMARY | 2022-06-25 19:37 | XMS_ITS | Encounter Summary ---
:1950 Author Organization [facility] Address [address] [place] [id number] Support Name Relationship Address Phone MADELIN MANTILLA Unavailable [phone] [place] [address] MADELIN MANTILLA Unavailable [address] [phone] [place] [address] DHAVAL MANTILLA Unavailable [address] [place] [address] Insurance Providers: All historical and current Section [...] MEDICARE MEDICARE PART Jul 18, PART B [id number] ANNALEE BUSTILLO (WNR) (M) B 2014A [phone] ,REGI MEDICARE MEDICARE PART Apr 17, PART A [id number] 800 ANNALEE BRYANIENT (WNR) (M) A 2012A [phone] ,REGI Selected Encounter This section includes the information on record at PA for the Encounter. Date/Time Encounter Type Encounter Description Reason Provider Source May 09, 2022 12:00 Outpatient Encounter EVENT (HISTORICAL) AM IHE Encounter Template Text not used by PA Plan of Treatment: Future Appointments (+ 6 months) and Future Tests (+/- 45 days) The Plan of Treatment section includes future care activities for the patient from all PA treatmentfacilities. This section includes future appointments and future orders which are active, pending orscheduled.Future Appointments This section includes appointments that were scheduled to occur 6 months from the date of the Encounter, up to a maximum of 20 appointments. The data comes from all [facility] treatment facilities. Appointment Date/Time Appointment Type Appointment Facili ty Name May 15, 2022 10:30 AM AMBULATORY - MEDICINE [facility] May 15, 2022 10:40 AM AMBULATORY - MEDICINE [facility] May 15, 2022 11:30 AM AMBULATORY - MEDICINE [facility] May 15, 2022 01:00 PM AMBULATORY - MEDICINE [facility] May 15, 2022 01:45 PM AMBULATORY - NONE [facility] Jun 19, 2022 01:15 PM AMBULATORY - NONE [facility] Jun 24, 2022 05:53 PM AMBULATORY - MEDICINE [facility] Jul 12, 2022 09:20 AM AMBULATORY - SURGERY [facility] Jul 19, 2022 08:00 AM AMBULATORY - MEDICINE [facility] Jul 19, 2022 09:00 AM AMBULATORY - MEDICINE [facility] Active, Pending, and Scheduled Orders This section includes a listing of several types of active, pending, and scheduled orders, including clinic medications orders, diagnostic test orders, procedure orders and consult orders; where the start date of the order is 45 days before the date of the Encounter or 45 days after the date of the Encounter. The data comes from all [facility]. Test Date/Time Test Type Test Details Facility Name May 15, 2022 12:00 Laboratory - COVID-19 AND FLU/RSV DIAG [facility] AM Chemistry Order PANEL(CEPHEID) NASOPHARYNGEAL SWAB STAT WC ONCE Lab Results: +/- 30 days of the encounter This section includes the Chemistry and Hematology Lab Results on record with PA for the patient. Radiology Reports and Pathology [...] April 11, 2022 12:04 PM Reporting Lab: [facility] [address] [facility] [address] Performing Lab: [facility] [address] [facility] [address] TSH 3.03 0.35-4.94 May 15, 2022 [facility] COMPREHENSIVE METABOLIC Spec imen Type: PLASMA 10:57 AM PANEL+MG No comment enter ed. Ordering Provid er: ROSY FAITH Report Released Date/Time: April 11, 2022 12:04 PM Reporting Lab: [facility] [address] [facility] [address] Performing Lab: [facility] [address] [facility] [address] CREATININE 1.2 0.7-1.2 UREA NITROGEN 25 8-26 [...] smoking and tobacco-related health factors from the PA facility where the Encounter took place.Current Smoking Status This section includes the most current smoking, or tobacco-related health factor, from the PA facility where the Encounter took place. Date/Time Current Smoking Status Comment Facility Mar 05, 2022 01:30 PM VA-TOBACCO FORMER USER [facility] Tobacco Use History This section includes a history of the smoking, or tobacco- related health factors, that were collected on or before the date of the Encounter. The data comes from the [place] facility where the Encounter took place. Date/Time Smoking Status/Tobacco Use Comment Katherine tapia Mar 05, 2022 01:30 PM VA-TOBACCO QUIT 1 TO < 5 YRS [facility] Jun 01, 2021 02:00 PM [facility] Dec 31, 2019 10:54 AM VA-TOBACCO FORMER USER [facility] Dec 31, 2019 10:54 AM VA-TOBACCO QUIT < 1 YEAR M [facility] March 23, 2019 09:53 AM VA-TOBACCO FORMER USER [facility] March 23, 2019 09:53 AM VA-TOBACCO QUIT < 1 YEAR M [facility] Jun 10, 2018 10:00 AM CURRENT TOBACCO USER [facility] May 10, 2018 07:27 PM INPT [facility]BACCO COUNSELING [facility] May 10, 2018 07:27 PM INPT TOBACCO USER [facility] Aug 29, 2017 09:55 AM FORMER TOBACCO USE <1Y [facility] May 26, 2017 10:51 PM INPT TOBACCO COUNSELING [facility] May 26, 2017 10:51 PM [facility]PT [facility] [facility] May 03, 2017 09:34 PM INPT TOBACCO COUNSELING [facility] May 03, 2017 09:34 PM INPT TOBACCO USER [facility] Sep 18, 2016 01:36 PM FORMER TOBACCO USE <1Y [facility] Aug 10, 2016 03:54 PM INPT TOBACCO USE - PT REFUSED [facility] Aug 01, 2016 06:48 PM INPT TOBACCO COUNSELING [facility] Aug 01, 2016 06:48 PM INPT TOBACCO USER [facility] Feb 08, 2015 09:57 AM CURRENT TOBACCO USER [facility] Nov 29, 2013 10:37 AM CURRENT TOBACCO USER [facility] Nov 26, 2013 11:09 AM PATIENT IS TOBACCO [facility]ER [facility] Nov 27, 2012 12:12 PM CURRENT TOBACCO USER [facility] Dec 27, 2011 09:44 AM CURRENT TOBACCO USER [facility] Jan 22, 2011 02:38 PM CURRENT TOBACCO USER [facility] Mar 13, 2010 12:48 PM CURRENT [facility]ACCO [facility] Advance Directives: All historical and current Section Date Range: From patient's date of to the date document was created. This section includes ALL of a patient's completed or amended PA Advance and Rescinded Directives. The entries below indicate that a directive exists for the patient, but an actual copy is not included with this document. The data comes from all PA facilities. Date Advance Directives Provider Source Feb [...] the Encounter. The data comes from all PA treatment facilities. Date/Time Radiology Report Provider Source May 15, 2022 01:23 PM CHEST 2 VIEWS PA AND LAT: DARIEN HERNANDEZ [facility] REGI MANTILLA KRISTOFER [id number] -APR [id number] M Exm Date: MAY 15, 2022@13:23 Req Phys: ROSY FAITH Pat Loc: [facility] 3D (Req Img Loc: MAIN X-RAY Service: Unknown (Case [id number] COMPLETE) CHEST 2 VIEWS PA AND LAT (R AD Detailed) CPT:65027 Reason for Study: cough, SOB x 2 months; evalua te for edema/infiltrate Clinical History: IS NOT under investigation for COVID-19 or is COVID-19 negative cough, SOB x 2 months Responsible provider name and phone number to notify for critical findings if other than user placing the order and pager listed below: User placing orders pager: [phone] LAST CREATININE 1.2 (05/15/22) Report Status: Verified Date Reported: MAY 15, 2022 Date Verified: MAY 15, 2022 Landscape Architecture Professor E-Sig:/ES/DARIEN HERNANDEZ MD Report: CHEST 2 VIEWS [...] Primary Interpreting Staff: DARIEN HERNANDEZ MD, RADIOLOGIST (Landscape Architecture Professor) /CDC Pathology Reports: +/- 30 days of [...] the Encounter. The data comes from all PA treatment facilities. Date/Time Pathology Report Provider Source May 08, 2022 06:46 PM LR SURGICAL PATHOLOGY REPORT: SARAH MEDEL [facility] LOCAL TITLE: LR SURGICAL PATHOLOGY REPORT STANDARD TITLE: PATHOLOGY REPORT DATE OF NOTE: MAY 08, 2022@18:46:34 ENTRY DATE: MAY 08, 2022@18:46:34 AUTHOR: SARAH MEDEL EXP COSIGNER: URGENCY: STATUS: COMPLETED $APHDR Reporting Lab: [facility] [CLIA# [id number]] [place] [address] - - - - - - - [...] - - - PATHOLOGY REPORT Accession No. [id number] - - - - - [...] Pathology Report Performed By: [facility] [CLIA# [id number]] [place] [address] $FTR - - - - - - - - - - - - - - - - - - - - - - - - - - - - - - - - - - - - - - - - (End of report) SARAH MEDEL MD [facility] Date May 08, 2022 - - - - - - - - - - - - - - - - - - - - - - - - - - - - - - - - - - - - - - - - REGI MANTILLA STANDARD FORM 515 ID:[id number] SEX:M :1950 AGE: 72 LOC: 1153 PCP: Preet Anderson MD /mikal/ SARAH MEDEL MD STAFF PATHOLOGIST, PATHOLOGY & LABORATORY MED C Signed: 05/08/2022 18:46
--- OUTSIDE RECORDS SUMMARY | 2022-06-25 19:37 | XMS_ITS | Encounter Summary ---
:1950 Author Organization [facility] Address [address] [place] [address] Support Name Relationship Address Phone MADELIN MANTILLA Unavailable [address] [phone] [place] [address] MADELIN MANTILLA Unavailable [address] [phone] [place] [address] DHAVAL MANTILLA Unavailable [address] [place] [address] Insurance Providers: All historical and current Section [...] MEDICARE MEDICARE PART Jul 18, PART B [id number] ANNALEE BUSTILLO (WNR) (M) B 2014A [phone] ,REGI MEDICARE MEDICARE PART Apr 17, PART A [id number] ANNALEE BUSTILLO (WNR) (M) A 2012A [phone] ,REGI Selected Encounter This section includes the information on record at [place] for the Encounter. Date/Time Encounter Type Encounter Description Reason Provider Source May 07, 2022 09:59 Outpatient Encounter EVENT (HISTORICAL) AM IHE Encounter Template Text not used by MT Plan of Treatment: Future Appointments (+ 6 months) and Future Tests (+/- 45 days) The Plan of Treatment section includes future care activities for the patient from all [place] treatmentfacilities. This section includes future appointments and future orders which are active, pending orscheduled.Future Appointments This section includes appointments that were scheduled to occur 6 months from the date of the Encounter, up to a maximum of 20 appointments. The data comes from all VA treatment facilities. Appointment Date/Time Appointment Type Appointment Facili ty Name May 15, 2022 10:30 AM AMBULATORY - MEDICINE [facility] May 15, 2022 10:40 AM AMBULATORY - MEDICINE [facility] May 15, 2022 11:30 AM AMBULATORY - MEDICINE [facility] May 15, 2022 01:00 PM AMBULATORY - MEDICINE [facility] May 15, 2022 01:45 PM AMBULATORY - NONE [facility] Jun 19, 2022 01:15 PM AMBULATORY - NONE [facility] Jun 24, 2022 05:53 PM AMBULATORY - MEDICINE [facility] Jul 12, 2022 09:20 AM AMBULATORY - SURGERY [facility] Jul 19, 2022 08:00 AM AMBULATORY - MEDICINE [facility] Jul 19, 2022 09:00 AM AMBULATORY - MEDICINE [facility] Active, Pending, and Scheduled Orders This section includes a listing of several types of active, pending, and scheduled orders, including clinic medications orders, diagnostic test orders, procedure orders and consult orders; where the start date of the order is 45 days before the date of the Encounter or 45 days after the date of the Encounter. The data comes from all [facility]. Test Date/Time Test Type Test Details Facility Name May 15, 2022 12:00 Laboratory - COVID-19 AND FLU/RSV DIAG [facility] AM Chemistry Order PANEL(CEPHEID) NASOPHARYNGEAL SWAB STAT WC ONCE Lab Results: +/- 30 days of the encounter This section includes the Chemistry and Hematology Lab Results on record with [place] for the patient. Radiology Reports and Pathology Reports are provided separately, in subsequent sections.Lab Results This section contains the Chemistry/Hematology Results that were resulted 30 days before or 30 daysafter the date of the Encounter. Date/Time Source Result Type Result - Unit Interpretation Reference Range Comment May 15, 2022 10:57 [facility] TSH W/REFLEX TO FREE Spec imen Type: PLASMA AM T4 No comment enter ed. Ordering Provid er: ROSY FAITH Report Released Date/Time: April 11, 2022 12:04 PM Reporting Lab: [facility] [address] [facility] [address] Performing Lab: [facility] [address] [facility] [address] TSH 3.03 0.35-4.94 May 15, 2022 [facility] COMPREHENSIVE METABOLIC Spec imen Type: PLASMA 10:57 AM PANEL+MG No comment enter ed. Ordering Provid er: ROSY FAITH Report Released Date/Time: April 11, 2022 12:04 PM Reporting Lab: [facility] [address] [facility] [address] Performing Lab: [facility] [address] [facility] [address] CREATININE 1.2 0.7-1.2 UREA NITROGEN 25 8-26 [...] smoking and tobacco-related health factors from the [place] facility where the Encounter took place.Current Smoking Status This section includes the most current smoking, or tobacco-related health factor, from the [place] facility where the Encounter took place. Date/Time Current Smoking Status Comment Facility Mar 05, 2022 01:30 PM VA-TOBACCO FORMER USER [facility] Tobacco Use History This section includes a history of the smoking, or tobacco- related health factors, that were collected on or before the date of the Encounter. The data comes from the [place] facility where the Encounter took place. Date/Time Smoking Status/Tobacco Use Comment Katherine tapia Mar 05, 2022 01:30 PM VA-TOBACCO QUIT 1 TO < 5 YRS [facility] Jun 01, 2021 02:00 PM [facility]ACCO [facility] Dec 31, 2019 10:54 AM VA-TOBACCO FORMER USER [facility] Dec 31, 2019 10:54 AM VA-TOBACCO QUIT < 1 YEAR M [facility] March 23, 2019 09:53 AM VA-TOBACCO FORMER USER [facility] March 23, 2019 09:53 AM VA-TOBACCO QUIT < 1 YEAR M [facility] Jun 10, 2018 10:00 AM CURRENT TOBACCO USER [facility] May 10, 2018 07:27 PM INPT TOBACCO COUNSELING [facility] May 10, 2018 07:27 PM INPT TOBACCO USER [facility] Aug 29, 2017 09:55 AM FORMER TOBACCO USE <1Y [facility] May 26, 2017 10:51 PM INPT TOBACCO COUNSELING [facility] May 26, 2017 10:51 PM INPT TOBACCO [facility]ER [place] [facility] May 03, 2017 09:34 PM INPT TOBACCO COUNSELING [facility] May 03, 2017 09:34 PM INPT TOBACCO USER [facility] Sep 18, 2016 01:36 PM FORMER TOBACCO USE <1Y [facility] Aug 10, 2016 03:54 PM INPT TOBACCO USE - PT REFUSED [facility] Aug 01, 2016 06:48 PM INPT TOBACCO COUNSELING [facility] Aug 01, 2016 [...] ALL of a patient's completed or amended [place] Advance and Rescinded Directives. The entries below indicate that a directive exists for the patient, but an actual copy is not included with this document. The data comes from all [place] facilities. Date Advance Directives Provider Source Feb 25, 2018 ADVANCE DIRECTIVE AURORA MORALES [facility] Feb 24, 2018 ADVANCE DIRECTIVE DISCUSSION AURORA MORALES [facility] May 26, 2017 CLINICAL WARNING MAGO CONTRERAS [facility] May 03, 2017 CLINICAL WARNING SARIAH ENGLE [facility] Aug 10, 2016 CLINICAL WARNING ISABEL BARCENAS [facility] Aug 02, 2016 CLINICAL WARNING A[facility]OR[facility] ALMAZAN [facility] Radiology Reports: +/- 30 days of [...] the Encounter. The data comes from all [place] treatment facilities. Date/Time Radiology Report Provider Source May 15, 2022 01:23 PM CHEST 2 VIEWS PA AND LAT: DARIEN HERNANDEZ [facility] REGI MANTILLA KRISTOFER [id number] -APR [id number] M Exm Date: MAY 15, 2022@13:23 Req Phys: ROSY FAITH Pat Loc: [facility] 3D (Req Img Loc: MAIN X-RAY Service: Unknown (Case [id number] COMPLETE) CHEST 2 VIEWS PA AND LAT (R AD Detailed) CPT:18659 Reason for Study: cough, SOB x 2 months; evalua te for edema/infiltrate Clinical History: IS NOT under investigation for COVID-19 or is COVID-19 negative cough, SOB x 2 months Responsible provider name and phone number to notify for critical findings if other than user placing the order and pager listed below: User placing orders pager: [phone] LAST CREATININE 1.2 (05/15/22) Report Status: Verified Date Reported: MAY 15, 2022 Date Verified: MAY 15, 2022 Jackhammer Operator E-Sig:/ES/DARIEN HERNANDEZ MD Report: CHEST 2 VIEWS [...] Primary Interpreting Staff: DARIEN HERNANDEZ MD, RADIOLOGIST (Jackhammer Operator) /CDC Pathology Reports: +/- 30 days of [...] the Encounter. The data comes from all [place] treatment facilities. Date/Time Pathology Report Provider Source May 08, 2022 06:46 PM LR SURGICAL PATHOLOGY REPORT: SARAH MEDEL [facility] LOCAL TITLE: LR SURGICAL PATHOLOGY REPORT STANDARD TITLE: PATHOLOGY REPORT DATE OF NOTE: MAY 08, 2022@18:46:34 ENTRY DATE: MAY 08, 2022@18:46:34 AUTHOR: SARAH MEDEL EXP COSIGNER: URGENCY: STATUS: COMPLETED $APHDR Reporting Lab: [facility] [CLIA# [id number]] [place] [address] - - - - - - - [...] - - - PATHOLOGY REPORT Accession No. [id number] - - - - - [...] tissue fragments measuring 0.3 cm in aggregate. RADAH Son/cc MICROSCOPIC DESCRIPTION: Microscopic examination performed. DIAGNOSIS: SPEC.1. Colon, ascending, polypectomy -- - fragments of sessile serrated adenoma - no evidence of high grade dysplasia or malign cassi SPEC.2. Colon, transverse, polypectomy -- - fragments of tubular adenoma - no evidence of high grade dysplasia or malign casis SPEC.3. Colon, descending, polypectomy -- - fragments of sessile serrated adenoma - no evidence of high grade dysplasia or malign cassi SPEC.4. Colon, sigmoid, polypectomy -- - hyperplastic polyp - no evidence of malignancy /es/ SARAH MEDEL MD STAFF PATHOLOGIST, PATHOLOGY & LABORATORY MED C Signed May 08, 2022@18:46 Performing Laboratory: Surgical Pathology Report Performed By: [facility] [CLIA# [id number]] [place] [address] $FTR - - - - - - - - - - - - - - - - - - - - - - - - - - - - - - - - - - - - - - - - (End of report) SARAH MEDEL MD [facility] Date May 08, 2022 - - - - - - - - - - - - - - - - - - - - - - - - - - - - - - - - - - - - - - - - REGI MANTILLA STANDARD FORM 515 ID:[id number] SEX:M :1950 AGE: 72 LOC: 1153 PCP: Preet Anderson MD /mikal/ SARAH MEDEL MD STAFF PATHOLOGIST, PATHOLOGY & LABORATORY MED C Signed: 05/08/2022 18:46
--- OUTSIDE RECORDS SUMMARY | 2022-06-25 19:37 | XMS_ITS | Encounter Summary ---
:1950 Author Organization [facility] Address [address] [place] [address] Support Name Relationship Address Phone MADELIN MANTILLA Unavailable [phone] [place] [address] MADELIN MANTILLA Unavailable [phone] [place] [address] DHAVAL MANTILLA Unavailable [address] [place] [address] Insurance Providers: All historical and current Section [...] MEDICARE MEDICARE PART Jul 18, PART B [id number] 800 ANNALEE BRYANIENT (WNR) (M) B 2014A [phone] ,REGI MEDICARE MEDICARE PART Apr 17, PART A [id number] 800 ANNALEE BRYANIENT (WNR) (M) A [phone] ,REGI Selected Encounter This section includes the [...] 19, 2022 01:15 PM AMBULATORY - NONE [facility] Jun 24, 2022 05:53 PM AMBULATORY - MEDICINE [facility] CS Jul 12, 2022 09:20 AM AMBULATORY - SURGERY [facility] S Jul 19, 2022 08:00 AM AMBULATORY - MEDICINE [facility] CS Jul 19, 2022 09:00 AM AMBULATORY - MEDICINE [facility] Active, Pending, and Scheduled Orders This section includes a listing of several types of active, pending, and scheduled orders, including clinic medications orders, diagnostic test orders, procedure orders and consult orders; where the start date of the order is 45 days before the date of the Encounter or 45 days after the date of the Encounter. The data comes from all [place] treatment [facility]. Test Date/Time Test Type Test Details Facility Name May 15, 2022 12:00 Laboratory - COVID-19 AND FLU/RSV DIAG [facility] AM Chemistry Order PANEL(CEPHEID) NASOPHARYNGEAL SWAB STAT WC ONCE Jun 24, 2022 06:55 Laboratory - EXTRA BLUE TUBE PLASMA WC [facility] PM Chemistry Order Jun 24, 2022 06:55 Laboratory - EXTRA GOLD GEL TUBE SERUM [facility] PM Chemistry Order Jun 24, 2022 06:55 Laboratory - EXTRA PURPLE TUBE BLOOD [facility] PM Chemistry Order Jun 24, 2022 06:55 Laboratory - EXTRA MINT TUBE PLASMA WC [facility] PM Chemistry Order Jun 25, 2022 03:59 Consult Order PROSTHETICS REQUEST Cons [facility] PM Vest [facility] Lab Results: +/- 30 days of the encounter This section includes the Chemistry and Hematology Lab Results on record with [place] for the patient. Radiology Reports and Pathology Reports are provided separately, in subsequent sections.Lab Results This section contains the Chemistry/Hematology Results that were resulted 30 days before or 30 daysafter the date of the Encounter. Date/Time Source Result Type Result - Unit Interpretation Reference Range Comment May 15, 2022 10:57 [facility] TSH W/REFLEX TO FREE Spec imen Type: PLASMA AM T4 No comment enter ed. Ordering Provid er: ROSY FAITH Report Released Date/Time: April 11, 2022 12:04 PM Reporting Lab: [facility] DRI EBCK [facility] [address] Performing Lab: [facility] D[facility] BECK [facility] [address] TSH 3.03 0.35-4.94 May 15, 2022 [facility] COMPREHENSIVE METABOLIC Spec imen Type: PLASMA 10:57 AM PANEL+MG No comment enter ed. Ordering Provid er: ROSY FAITH Report Released Date/Time: April 11, 2022 12:04 PM Reporting Lab: [facility] ONE [facility] [address] Performing Lab: [facility] ONE [facility] [address] CREATININE 1.2 0.7-1.2 UREA NITROGEN 25 8-26 [...] 2021 12:50 /min mm[Hg] in lb [facility] Social History: Smoking Status (Most current) [...] 2022 01:30 PM VA-TOBACCO FORMER USER [facility] Tobacco Use History This section includes a history of the smoking, or tobacco- related health factors, that were collected on or before the date of the Encounter. The data comes from the [place] facility where the Encounter took place. Date/Time Smoking Status/Tobacco Use Comment [facility] Mar 05, 2022 01:30 PM VA-TOBACCO QUIT 1 TO < 5 YRS [facility] Jun 01, 2021 02:00 PM VA-TOBACCO NEVER USED [place] [facility] Dec 31, 2019 10:54 AM VA-TOBACCO FORMER USER [facility] Dec 31, 2019 10:54 AM VA-TOBACCO QUIT < 1 YEAR [place] [facility] March 23, 2019 09:53 AM VA-TOBACCO FORMER USER [facility] March 23, 2019 09:53 AM VA-TOBACCO QUIT < 1 YEAR [place] [facility] Jun 10, 2018 10:00 AM CURRENT TOBACCO USER [place] [facility] May 10, 2018 07:27 PM IN[place]AC[place] COUNSEL[place] [facility] May 10, 2018 07:27 PM [place] [facility] Aug 29, 2017 09:55 AM FORMER TOBACCO USE <1Y [facility] May 26, 2017 10:51 PM INPT TOBAC[place] COUNSELING [place] [facility] May 26, 2017 10:51 PM INPT [place]BAC[place] US[place] [facility] May 03, 2017 09:34 PM INPT [place]BAC[place] COUNSELING [place] [facility] May 03, 2017 09:34 PM [place] [facility] Sep 18, 2016 01:36 PM FORMER TOBACCO USE <1Y [facility] Aug 10, 2016 03:54 PM INPT TOBACCO USE - PT REFUSED [facility] Aug 01, 2016 06:48 PM INPT [place]BACCO COUNSELING [place] [facility] Aug 01, 2016 06:48 PM [place] [facility] Feb 08, 2015 09:57 AM CURRENT TOBACCO USER [place] [facility] Nov 29, 2013 10:37 AM CURRENT TOBACCO USER [place] [facility] Nov 26, 2013 11:09 AM PATIENT IS TOBACCO USER [place] [facility] Nov 27, 2012 12:12 PM CURRENT TOBACCO USER [place] [facility] Dec 27, 2011 09:44 AM CURRENT TOBACCO USER [place] [facility] Jan 22, 2011 02:38 PM CURRENT TOBACCO USER [place] [facility] Mar 13, 2010 12:48 PM CURRENT TOBACCO USER [place] [facility] Advance Directives: All historical and [...] Feb 25, 2018 ADVANCE DIRECTIVE AURORA MORALES [facility] Feb 24, 2018 ADVANCE DIRECTIVE DISCUSSION AURORA MORALES [facility] May 26, 2017 CLINICAL WARNING DIANEMAGO Nina [facility] May 03, 2017 CLINICAL WARNING SARIAH ENGLE [facility] Aug 10, 2016 CLINICAL WARNING ISABEL BARCENAS [facility] Aug 02, 2016 CLINICAL WARNING AURORA ALMAZAN [facility] Radiology Reports: +/- 30 days [...] the Encounter. The data comes from all [place] treatment facilities. Date/Time Radiology Report Provider Source May 15, 2022 01:23 PM CHEST 2 VIEWS PA AND LAT: DARIEN HERNANDEZ [facility] REGI MANTILLA KRISTOFER [id number] -APR 28, 194 8 M Exm Date: MAY 15, 2022@13:23 Req Phys: ROSY FAITH Pat Loc: [facility] CARDIAC E P MARCELL 3D (Req Img Loc: MAIN X-RAY Service: Unknown (Case [id number] COMPLETE) CHEST 2 VIEWS PA AND LAT (R AD Detailed) CPT:04509 Reason for Study: cough, SOB x 2 months; evalua te for edema/infiltrate Clinical History: IS NOT under investigation for COVID-19 or is COVID-19 negative cough, SOB x 2 months Responsible provider name and phone number to notify for critical findings if other than user placing the order and pager listed below: User placing orders pager: [phone] LAST CREATININE 1.2 (05/15/22) Report Status: Verified Date Reported: MAY 15, 2022 Date Verified: MAY 15, 2022 Golf [employer] Winder E-Sig:/ES/DARIEN HERNANDEZ MD Report: CHEST 2 VIEWS [...] Primary Interpreting Staff: DARIEN HERNANDEZ MD, RADIOLOGIST (Golf Ball Winder) /CDC Pathology Reports: +/- 30 days of [...] the Encounter. The data comes from all [place] treatment facilities. Date/Time Pathology Report Provider Source May 08, 2022 06:46 PM LR SURGICAL PATHOLOGY REPORT: SARAH MEDEL [facility] LOCAL TITLE: LR SURGICAL PATHOLOGY REPORT STANDARD TITLE: PATHOLOGY REPORT DATE OF NOTE: MAY 08, 2022@18:46:34 ENTRY DATE: MAY 08, 2022@18:46:34 AUTHOR: SARAH MEDEL EXP COSIGNER: URGENCY: STATUS: COMPLETED $APHDR Reporting Lab: [facility] [CLIA# [id number]] [place] [address] - - - - - - - [...] Performing Laboratory: Surgical Pathology Report Performed By: [facility] [CLIA# [id number]] [place] [address] $FTR - - - - - - [...] - - REGI MANTILLA STANDARD FORM 515 ID:[id number] SEX:M :1950 AGE: 72 LOC: 1153 PCP: Preet Anderson MD /mikal/ SARAH MEDEL MD STAFF PATHOLOGIST, PATHOLOGY & LABORATORY MED C Signed: 05/08/2022 18:46
--- OUTSIDE RECORDS SUMMARY | 2022-06-25 19:38 | XMS_ITS ---
DAILY HOSPITALIZATION DATA [facility] Encounter Summary Created on:June 25, 2022 Patient:REGI MANTILLA Sex:Male :1950 Author Organization [facility] Address [address] [place] [address] Support Name Relationship Address Phone MADELIN MANTILLA Unavailable [phone] [place] [address] MADELIN MANTILLA Unavailable [phone] [place] [address] DHAVAL MANTILLA Unavailable [address] [place] [address] Insurance Providers: All historical and current Section [...] MEDICARE MEDICARE PART Jul 18, PART B [id number] 800 ANNALEE BUSTILLO (WNR) (M) B 2014A [phone] ,REGI MEDICARE MEDICARE PART Apr 17, PART A [id number] 800 ANNALEE BRYANIENT (WNR) (M) A [phone] ,REGI Selected Encounter This section includes the information on record at [place] for the Encounter. Date/Time Encounter Type Encounter Description Reason Provider Source Jun 25, 2022 03:58 Inpatient Visit DAILY HOSPITALIZATION DATA AM I[facility] Encounter Template Text not used by [place] Plan of Treatment: Future Appointments (+ 6 months) and Future Tests (+/- 45 days) The Plan of Treatment section includes future care activities for the patient from all [place] treatmentfacilities. This section includes future appointments and future orders which are active, pending orscheduled.Future Appointments This section includes appointments that were scheduled to occur 6 months from the date of the Encounter, up to a maximum of 20 appointments. The data comes from all [place] treatment facilities. Appointment Date/Time Appointment Type Appointment Facili ty Name Jul 12, 2022 09:20 AM AMBULATORY - SURGERY [facility] S Jul 19, 2022 08:00 AM AMBULATORY - MEDICINE [facility] CS Jul 19, 2022 09:00 AM AMBULATORY - MEDICINE [facility] Nov 20, 2022 10:30 AM AMBULATORY - MEDICINE [facility] CS Nov 20, 2022 11:00 AM AMBULATORY - MEDICINE [facility] Nov 20, 2022 11:30 AM AMBULATORY - MEDICINE [facility] Active, Pending, and Scheduled Orders This section includes a listing of several types of active, pending, and scheduled orders, including clinic medications orders, diagnostic test orders, procedure orders and consult orders; where the start date of the order is 45 days before the date of the Encounter or 45 days after the date of the Encounter. The data comes from all [facility]. Test Date/Time Test Type Test Details Facility Name May 15, 2022 12:00 Laboratory - COVID-19 AND FLU/RSV DIAG [facility] AM Chemistry Order PANEL(CEPHEID) NASOPHARYNGEAL SWAB STAT WC ONCE Jun 24, 2022 06:55 Laboratory - EXTRA BLUE TUBE PLASMA WC [facility] PM Chemistry Order Jun 24, 2022 06:55 Laboratory - EXTRA GOLD GEL TUBE SERUM [facility] PM Chemistry Order Jun 24, 2022 06:55 Laboratory - EXTRA PURPLE TUBE BLOOD [facility] PM Chemistry Order Jun 24, 2022 06:55 Laboratory - EXTRA MINT TUBE PLASMA WC [facility] PM Chemistry Order Jun 25, 2022 03:59 Consult Order [facility]OSTHETICS REQUEST [facility] PM Cereal Chemist's Choice Jul 10, 2022 12:00 Laboratory - RHEUMATOLOGY CHEM PANEL [facility] AM Chemistry Order PLASMA SP ONCE Jul 10, 2022 12:00 Laboratory - RHEUMATOLOGY HEME PANEL [facility] AM Chemistry Order BLOOD SP ONCE Lab [...] Range Comment Jun 24, 2022 09:29 PM [facility] URINALYSIS Specim en Type: URINE No comment enter ed. Ordering Provid er: JAYDE MENDOZA Report Released Date/Time: Jun 24, 2022 06:55 PM Reporting Lab: [facility] [address] [facility] [address] Performing Lab: [facility] [address] [facility] [address] URINE COLOR YELLOW SPECIFIC GRAVITY 1.039 H [...] 25 NEGATIVE Jun 24, 2022 08:24 PM [facility] AST/SGOT Specim en Type: PLASMA No comment enter ed. Ordering Provid er: JAYDE MENDOZA Report Released Date/Time: Jun 24, 2022 08:09 PM Reporting Lab: [facility] [address] [facility] [address] Performing Lab: [facility] [address] [facility] [address] AST/SGOT 19 <34 Jun 24, 2022 08:24 PM [facility] POTASSIUM Specim en Type: PLASMA No comment enter ed. Ordering Provid er: JAYDE MENDOZA Report Released Date/Time: Jun 24, 2022 08:09 PM Reporting Lab: [facility] [address] [facility] [address] Performing Lab: [facility] [address] [facility] [address] POTASSIUM 4.9 3.5-5.1 Jun 24, 2022 08:24 PM [facility] PROTEIN,TOTAL Specim en Type: PLASMA No comment enter ed. Ordering Provid er: JAYDE MENDOZA Report Released Date/Time: Jun 24, 2022 08:09 PM Reporting Lab: [facility] [address] [facility] [address] Performing Lab: [facility] [address] [facility] [address] PROTEIN,TOTAL 6.8 6.0-8.3 Jun 24, 2022 07:40 [facility] PROTHROMBIN TIME/INR Spec imen Type: PLASMA PM No comment enter ed. Ordering Provid er: JAYDE MENDOZA Report Released Date/Time: Jun 24, 2022 06:55 PM Reporting Lab: [facility] [address] Performing Lab: [facility] [address] .INR 1.1 0.8-1.1 .PT 12.1 9.4-12.5 Jun 24, 2022 07:32 [facility] COVID-19 DIAGNOSTIC Speci men Type: NASOPHARYNGEAL PM PANEL (CEPHEID) Comment: Cephei d GeneXpert (618) Ordering Provid er: JAYDE MENDOZA Report Released Date/Time: Jun 24, 2022 06:55 PM Reporting Lab: [facility] [address] Performing Lab: [facility] [address] COVID-19 (CEPHEID) Not Detected Not Dete cted Jun 24, 2022 [facility] COMPREHENSIVE METABOLIC Spec imen Type: PLASMA 07:29 PM PANEL+MG Comment: Cancel lation reported to: Rajni Giraldo RN on 06/24/22@2004 by [place]. Test result cancelled due to hemolysis interference in sample. Ordering Provid er: JAYDE MENDOZA Report Released Date/Time: Jun 24, 2022 06:55 PM Reporting Lab: [facility] [address] Performing Lab: [facility] [address] CREATININE 1.3 H 0.7-1.2 UREA NITROGEN 19 8-26 GLUCOSE 111 H 74-100 SODIUM 133 L 136-145 POTASSIUM canc 3.5-5.1 CHLORIDE 103 98-107 CO2 22 22-29 CALCIUM 9.4 8.4-10.2 PROTEIN,TOTAL canc 6.0-8.3 ALBUMIN 3.9 3.5-5.2 BILIRUBIN, TOTAL 0.2 0.2-1.2 MAGNESIUM 2.3 1.6-2.6 ANION GAP 8 5-15 ALKALINE PHOSPHATASE 56 40-150 ALT/SGPT 20 <55 AST/SGOT canc <34 CREAT EGFR(CKD-EPI) 58 L >60 Jun 24, 2022 07:29 PM [facility] CBC & DIFF Specim en Type: BLOOD Comment: [place] d Platelets. Invitro artefact. No clinical significance. Platelet count may be higher than stated value. Plt count = 214 K-cmm Manual Differential Performed Ordering Provid er: JAYDE MENDOZA Report Released Date/Time: Jun 24, 2022 06:55 PM Reporting Lab: [facility] [address] [facility] [address] Performing Lab: [facility] [address] [facility] [address] WBC 9.67 4.0-11.0 RBC 3.36 L 4.6-6.2 [...] MYELO 0.05 IPF canc .RBC MORPHOLOGY PRESENT Vital Signs: All taken on the encounter date This section contains inpatient and outpatient Vital Signs collected on the date of the Encounter. Date/Time Temperature Pulse Blood Respiratory SP02 Pain Height Weight Marcus dy Source Pressure Rate Mass Index Jun 25, 98.0 F 59 103/65 19 /min 91 % 8 [place] 2021 05:23 /min mm[Hg] [facility] Jun 25, 98.3 F 58 110/70 18 /min 93 % 8 [place] 2021 04:41 /min mm[Hg] [facility] Jun 25, 5 [place] 2021 08:23 [facility] Jun 25, 99.4 F 73 115/71 16 /min 89 % [place] 2021 08:10 /min mm[Hg] [facility] Jun 25, 6 [place] 2021 05:57 [facility] Social History: Smoking Status (Most [...] 2022 01:30 PM VA-TOBACCO FORMER USER [facility] Tobacco Use History This section includes a history of the smoking, or tobacco- related health factors, that were collected on or before the date of the Encounter. The data comes from the [place] facility where the Encounter took place. Date/Time Smoking Status/Tobacco Use Comment Facil ity Mar 05, 2022 01:30 PM VA-TOBACCO QUIT 1 TO < 5 YRS [facility] Jun 01, 2021 02:00 PM VA-TOBACCO NEVER USED [place] [facility] Dec 31, 2019 10:54 AM VA-TOBACCO FORMER USER [facility] Dec 31, 2019 10:54 AM VA-TOBACCO QUIT < 1 YEAR M [facility] March 23, 2019 09:53 AM VA-TOBACCO FORMER USER [facility] March 23, 2019 09:53 AM VA-TOBACCO QUIT < 1 YEAR M [facility] Jun 10, 2018 10:00 AM CURRENT TOBACCO USER [facility] May 10, 2018 07:27 PM [facility] May 10, 2018 07:27 PM INPT TOBACCO USER [facility] Aug 29, 2017 09:55 AM FORMER TOBACCO USE <1Y [facility] May 26, 2017 10:51 PM [place] [facility] May 26, 2017 10:51 PM INPT TOBACCO [facility] May 03, 2017 09:34 PM INPT TOBACCO COUNSELING [place] [facility] [facility] May 03, 2017 09:34 PM [place]PT [place]BACCO US[place] [facility] Sep 18, 2016 01:36 PM FORMER TOBACCO USE <1Y [facility] Aug 10, 2016 03:54 PM INPT TOBACCO USE - PT REFUSED [facility] Aug 01, 2016 06:48 PM INPT TOBACCO COUNSELING [place] [facility] [facility] Aug 01, 2016 06:48 [facility] Feb 08, 2015 09:57 AM CURRENT TOBACCO USER [facility] Nov 29, 2013 10:37 AM CURRENT TOBACCO USER [facility] Nov 26, 2013 11:09 AM PATIENT IS TOBACCO USER [facility] Nov 27, 2012 12:12 PM CURRENT TOBACCO USER [facility] Dec 27, 2011 09:44 AM CURRENT TOBACCO USER [facility] Jan 22, 2011 02:38 PM CURRENT TOBACCO USER [facility] Mar 13, 2010 12:48 PM CURRENT [facility]ACCO [facility] Advance Directives: All historical [...] Feb 25, 2018 ADVANCE DIRECTIVE AURORA MORALES [facility] Feb 24, 2018 [...]
--- OUTSIDE RECORDS SUMMARY | 2022-06-25 19:38 | XMS_ITS | Encounter Summary ---
:1950 Author Organization [facility] Address [address] [place] [address] Support Name Relationship Address Phone MADELIN MANTILLA Unavailable [phone] [place] [address] MADELIN MANTILLA Unavailable [phone] [place] [address] DHAVAL MANTILLA Unavailable [address] [place] [address] Insurance Providers: All historical and current Section [...] MEDICARE MEDICARE PART Jul 18, PART B [id number] ANNALEE BUSTILLO (WNR) (M) B 2014 24A [phone] ,REGI MEDICARE MEDICARE PART Apr 17, PART A [id number] ANNALEE BUSTILLO (WNR) (M) A [id number] [id number] ,REGI Selected Encounter This section includes the information on record at [place] for the Encounter. Date/Time Encounter Type Encounter Reason Provider Source Description Jun 19, 2022 01:15 Outpatient ADMIN PAT ACTIVTIES PRANAY WOMACK PM Encounter (MASNONCT) IHE Encounter Template Text [...] The data comes from all [place] treatment [facility]. Appointment Date/Time Appointment Type Appointment Facili ty Name Jun 24, 2022 05:53 PM AMBULATORY - MEDICINE [facility] Jul 12, 2022 09:20 AM AMBULATORY - SURGERY [facility] Jul 19, 2022 08:00 AM AMBULATORY - MEDICINE [facility] Jul 19, 2022 09:00 AM AMBULATORY - MEDICINE [facility] Nov 20, 2022 10:30 AM AMBULATORY - MEDICINE [facility] Nov 20, 2022 11:00 AM AMBULATORY - MEDICINE [facility] Nov 20, 2022 11:30 AM AMBULATORY - MEDICINE [facility] Active, Pending, and Scheduled Orders This section includes a listing of several types of active, pending, and scheduled orders, including clinic medications orders, diagnostic test orders, procedure orders and consult orders; where the start date of the order is 45 days before the date of the Encounter or 45 days after the date of the Encounter. The data comes from all [facility]. Test Date/Time Test Type Test Details Facility Name May 15, 2022 12:00 Laboratory - COVID-19 AND FLU/RSV DIAG [facility] Chemistry Order PANEL(CEPHEID) NASOPHARYNGEAL SWAB STAT WC ONCE Jun 24, 2022 06:55 Laboratory - EXTRA BLUE TUBE PLASMA WC [facility] PM Chemistry Order Jun 24, 2022 06:55 Laboratory - EXTRA GOLD GEL TUBE SERUM [facility] PM Chemistry Order Jun 24, 2022 06:55 Laboratory - EXTRA PURPLE TUBE BLOOD [facility] PM Chemistry Order WC Jun 24, 2022 06:55 Laboratory - EXTRA MINT TUBE PLASMA WC [facility] PM Chemistry Order Jun 25, 2022 03:59 Consult Order PROSTHETICS REQUEST Cons [facility] PM [employer] Jul 10, 2022 12:00 Laboratory - RHEUMATOLOGY CHEM PANEL [facility] AM Chemistry Order PLASMA SP ONCE Jul 10, 2022 12:00 Laboratory - RHEUMATOLOGY HEME PANEL [facility] AM Chemistry Order BLOOD SP ONCE Lab [...] Range Comment Jun 24, 2022 09:29 PM [facility] URINALYSIS Specim en Type: URINE No comment enter ed. Ordering Provid er: JAYDE MENDOZA Report Released Date/Time: Jun 24, 2022 06:55 PM Reporting Lab: [facility] [address] [facility] [address] Performing Lab: [facility] [address] [facility] [address] URINE COLOR YELLOW SPECIFIC GRAVITY 1.039 H [...] 25 NEGATIVE Jun 24, 2022 08:24 PM [facility] AST/SGOT Specim en Type: PLASMA No comment enter ed. Ordering Provid er: JAYDE MENDOZA Report Released Date/Time: Jun 24, 2022 08:09 PM Reporting Lab: [facility] [address] [facility] [address] Performing Lab: [facility] [address] [facility] [address] AST/SGOT 19 <34 Jun 24, 2022 08:24 PM [facility] POTASSIUM Specim en Type: PLASMA No comment enter ed. Ordering Provid er: JAYDE MENDOZA Report Released Date/Time: Jun 24, 2022 08:09 PM Reporting Lab: [facility] [address] [facility] [address] Performing Lab: [facility] [address] [facility] [address] POTASSIUM 4.9 3.5-5.1 Jun 24, 2022 08:24 PM [facility] PROTEIN,TOTAL Specim en Type: PLASMA No comment enter ed. Ordering Provid er: JAYDE MENDOZA Report Released Date/Time: Jun 24, 2022 08:09 PM Reporting Lab: [facility] [address] [facility] [address] Performing Lab: [facility] [address] [facility] [address] PROTEIN,TOTAL 6.8 6.0-8.3 Jun 24, 2022 07:40 [facility] PROTHROMBIN TIME/INR Spec imen Type: PLASMA PM No comment enter ed. Ordering Provid er: JAYDE MENDOZA Report Released Date/Time: Jun 24, 2022 06:55 PM Reporting Lab: [facility] [address] [facility] [address] Performing Lab: [facility] [address] [facility] [address] .INR 1.1 0.8-1.1 .PT 12.1 9.4-12.5 Jun 24, 2022 07:32 [facility] COVID-19 DIAGNOSTIC Speci men Type: NASOPHARYNGEAL PM PANEL (CEPHEID) Comment: Cephei d GeneXpert (618) Ordering Provid er: JAYDE MENDOZA Report Released Date/Time: Jun 24, 2022 06:55 PM Reporting Lab: [facility] [address] [facility] [address] Performing Lab: [facility] [address] [facility] [address] COVID-19 (CEPHEID) Not Detected Not Dete cted Jun 24, 2022 [facility] COMPREHENSIVE METABOLIC Spec imen Type: PLASMA 07:29 PM PANEL+MG Comment: Cancel lation reported to: Rajni Giraldo RN on 06/24/22@2004 by [place]. Test result cancelled due to hemolysis interference in sample. Ordering Provid er: JAYDE MENDOZA Report Released Date/Time: Jun 24, 2022 06:55 PM Reporting Lab: [facility] [address] [facility] [address] [facility] [address] CREATININE 1.3 H 0.7-1.2 UREA NITROGEN 19 [...] L >60 Jun 24, 2022 07:29 PM [facility] CBC & DIFF Specim en Type: BLOOD Comment: [place] d Platelets. Invitro artefact. No clinical significance. Platelet count may be higher than stated value. Plt count = 214 K-cmm Manual Differential Performed Ordering Provid er: JAYDE MENDOZA Report Released Date/Time: Jun 24, 2022 06:55 PM Reporting [facility]: [facility] [address] Performing Lab: [facility] [address] WBC 9.67 4.0-11.0 RBC 3.36 L 4.6-6.2 [...] MYELO 0.05 IPF canc .RBC MORPHOLOGY PRESENT Social History: Smoking Status (Most current) and [...] 05, 2022 01:30 PM VA-TOBACCO FORMER USER [facility] Tobacco Use History This section includes a history of the smoking, or tobacco- related health factors, that were collected on or before the date of the Encounter. The data comes from the [place] facility where the Encounter took place. Date/Time Smoking Status/Tobacco Use Comment [facility] rgeina Mar 05, 2022 01:30 PM [place]-TOBACCO QUIT 1 TO < 5 YRS [facility] Jun 01, 2021 02:00 PM VA-TOBACCO NEVER USED [place] [facility] Dec 31, 2019 10:54 AM VA-TOBACCO FORMER USER [facility] Dec 31, 2019 10:54 AM VA-TOBACCO QUIT < 1 YEAR [facility] March 23, 2019 09:53 AM VA-TOBACCO FORMER USER [facility] March 23, 2019 09:53 AM VA-TOBACCO QUIT < 1 YEAR [facility] Jun 10, 2018 10:00 AM CURRENT TOBACCO USER [facility] May 10, 2018 07:27 PM INPT TOBACCO COUNSELING [place] [facility] May 10, 2018 07:27 PM INPT TOBACCO USER [facility] Aug 29, 2017 09:55 AM FORMER TOBACCO USE <1Y [facility] May 26, 2017 10:51 PM INPT TOBACCO COUNSELING [place] [facility] May 26, 2017 10:51 PM INPT TOBACCO USER [facility] May 03, 2017 09:34 PM INPT TOBACCO COUNSELING [place] [facility] May 03, 2017 09:34 PM INPT TOBACCO USER [facility] Sep 18, 2016 01:36 PM FORMER TOBACCO USE <1Y [facility] Aug 10, 2016 03:54 PM INPT TOBACCO USE - PT REFUSED [facility] Aug 01, 2016 06:48 PM INPT TOBACCO COUNSELING [place] [facility] Aug 01, 2016 06:48 PM INPT TOBACCO USER [facility] Feb 08, 2015 09:57 AM CURRENT [facility] Nov 29, 2013 10:37 AM CURRENT [facility]AC[facility] Nov 26, 2013 11:09 AM PATIENT IS TOBACCO USER [place] [facility] Nov 27, 2012 12:12 PM CURRENT TOBACCO USER [facility] Dec 27, 2011 09:44 AM CURRENT [facility]AC[facility] Jan 22, 2011 02:38 PM CURRENT TOBACCO USER [facility] Mar 13, 2010 12:48 PM CURRENT TOBACCO USER [facility] Advance Directives: All historical and current Section Date Range: From patient's date of to the date document was created. This section includes ALL of a patient's completed or amended [place] Advance and Rescinded Directives. The entries below indicate that a directive exists for the patient, but an actual copy is not included with this document. The data comes from all [facility]. Date Advance Directives Provider Source Feb 25, 2018 ADVANCE DIRECTIVE AURORA MORALES [facility] Feb 24, 2018 ADVANCE DIRECTIVE DISCUSSION AURORA MORALES [facility] May 26, 2017 CLINICAL WARNING MAGO CONTRERAS [facility] May 03, 2017 CLINICAL WARNING SARIAH ENGLE [facility] Aug 10, 2016 CLINICAL WARNING ISABEL BARCENAS [facility] Aug 02, 2016 CLINICAL WARNING AURORA ALMAZAN [facility] Encounter Notes: All associated encounter notes This section contains the clinical notes associated to the Encounter. Date/Time Encounter Note(s) Provider Source Jun 18, 2022 05:01 PM NONVA NOTE: SAMREEN HERMAN [facility] LOCAL TITLE: COMMUNITY CARE-ELZBIETA SELF PRESENTIN G CARE COORD PLAN STANDARD TITLE: NONVA NOTE DATE OF NOTE: JUN 18, 2022@17:01 ENTRY DATE: JUN 19, 2022@17:01:52 AUTHOR: SAMREEN HERMAN EXP COSIGNER: URGENCY: STATUS: COMPLETED COMMUNITY CARE-ELZBIETA SELF PRESENTING CARE CO ORD PLAN NOTE Has ADDENDA Emergency Notification Intake Date Presenting to the Facility: Jun Method of Contact: Notified from Souqalmal worklist Notification ID: [id number] [facility] Referral #: [facility] Name: Hospital: [facility] Address: [address] [place] [address] City: [place] State: [place] Zip Code: [address] Phone : [facility] Point of Contact: Name: AIXA RAY RN Chief complaint: CONTUSION Primary Diagnosis: CONTUSION Disposition Unknown at time of intake note entry /mikal/ SAMREEN HERMAN MEDICAL SKIRT PANEL ASSEMBLER Signed: 06/19/2022 17:12 Receipt Acknowledged By: 06/25/2022 07:47 /es/ PRANAY WOMACK RN REGISTERED NURSE 06/25/2022 ADDENDUM STATUS: COMPLETED Cosigning the [facility] RN to arthur campuzano note requested records from the facility will send to [facility] once received /mikal/ PRANAY WOMACK RN REGISTERED NURSE Signed: 06/25/2022 07:48 Receipt Acknowledged By: 06/25/2022 08:22 /es/ HERI BRAUN SCAFFOLD SETTER NURSE 06/25/2022 ADDENDUM STATUS: COMPLETED Patient is currently admitted to the [place] hospital awaiting 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 /mikal/ HERI BRAUN SCAFFOLD SETTER NURSE Signed: 06/25/2022 08:22 06/25/2022 ADDENDUM STATUS: COMPLETED [place] was seen in an outside ER on: 06/18/22 [facility] Diagnosis: C5 fracture Transfer to [facility] Medical records received and sent to [facility] for im port. /mikal/ PRANAY WOMACK RN REGISTERED NURSE Signed: 06/25/2022 14:48 Jun 18, 2022 01:23 PM NONVA NOTE: [facility]REEN [facility] LOCAL TITLE: COMMUNITY CARE-ELZBIETA SELF PRESENTIN G CARE COORD PLAN STANDARD TITLE: NONVA NOTE DATE OF NOTE: JUN 18, 2022@13:23 ENTRY DATE: JUN 19, 2022@13:23:45 AUTHOR: SAMREEN HERMAN EXP COSIGNER: URGENCY: STATUS: COMPLETED COMMUNITY CARE-ELZBIETA SELF PRESENTING CARE CO ORD PLAN NOTE Has ADDENDA Emergency Notification Intake Date Presenting to the Facility: Jun Method of Contact: Notified from Souqalmal worklist Notification ID: [id number] [facility] Referral #: [facility] Name: Hospital: [facility] Address: [address] [place] [address] City: [facility] State: [place] Zip Code: [address] Phone : [facility] Point of Contact: Name: HANG WARREN Chief complaint: FALL C5 LAMINA FRACTURE Primary Diagnosis: FALL C5 LAMINA FRACTURE Disposition Admitted Route of Admission: Date of Admission: Jun Admitting Diagnosis: S12.490A Community Care Provider: Confirm Level of Care: /mikal/ SAMREEN HERMAN MEDICAL SKIRT PANEL ASSEMBLER Signed: 06/19/2022 13:26 Receipt Acknowledged By: 06/19/2022 16:29 /mikal/ PRANAY WOMACK RN REGISTERED NURSE 06/19/2022 ADDENDUM STATUS: COMPLETED Admitted to: [facility] Admission date: 06/18/22 Provider: Judith Guerrero PA-C Chief Complaint: Fall Admit H&P uploaded to [place] This [facility] RN will follow Opal rodriguez during this hospitalization. Will request a DC summary be faxed when available and it will be u ploaded into the [facility] medical record when received. /mikal/ PRANAY WOMACK RN REGISTERED NURSE Signed: 06/19/2022 16:30 Receipt Acknowledged By: 06/19/2022 16:32 /mikal/ HERI BRAUN SCAFFOLD SETTER NURSE 06/25/2022 ADDENDUM STATUS: COMPLETED Hospital Discharge note Hospital: [facility] Admit date: 06/18/22 Discharge date: 06/24/22 Discharge diagnosis: Accidental fall from bed Disposition: home New meds: lidocaine patches Follow up: Neurosurgery Cornelio Ng MD in 4 weeks PCP in 2 weeks Information obtained from [place] dical records received and sent to [facility] for import. PACT team aware and follow u p in progress. Will cosign PACT RN for notification of available notes if needed /mikal/ PRANAY WOMACK RN REGISTERED NURSE Signed: 06/25/2022 14:44 Receipt Acknowledged By: * AWAITING SIGNATURE * HERI BRAUN
--- OUTSIDE RECORDS SUMMARY | 2022-06-25 19:38 | XMS_ITS | Encounter Summary ---
:1950 Author Organization [facility] Address [address] [place] [address] Support Name Relationship Address Phone MADELIN MANTILLA Unavailable [phone] [place] [address] MADELIN MANTILLA Unavailable [phone] [place] [address] DHAVAL MANTILLA Unavailable [address] [place] [address] Insurance Providers: All historical and current Section [...] MEDICARE MEDICARE PART Jul 18, PART B [id number] ANNALEE BRYANIENT (WNR) (M) B [id number] [phone] ,REGI MEDICARE MEDICARE PART Apr 17, PART A [id number] ANNALEE Cardenas ATIENT (WNR) (M) A [phone] ,REGI Selected Encounter This section includes the information on record at NM for the Encounter. Date/Time Encounter Type Encounter Description Reason Provider Source Jun 24, 2022 09:06 Outpatient Encounter CLINICAL PHARMACY PM IHE Encounter Template Text not used by NM Plan of Treatment: Future Appointments (+ 6 months) and Future Tests (+/- 45 days) The Plan of Treatment section includes future care activities for the patient from all [place] treatmentfacilities. This section includes future appointments and future orders which are active, pending orscheduled.Future Appointments This section includes appointments that were scheduled to occur 6 months from the date of the Encounter, up to a maximum of 20 appointments. The data comes from all [place] treatment facilities. Appointment Date/Time Appointment Type Appointment Facili ty Name Jul 12, 2022 09:20 AM AMBULATORY - SURGERY [facility] S Jul 19, 2022 08:00 AM AMBULATORY - MEDICINE [facility] CS Jul 19, 2022 09:00 AM AMBULATORY - MEDICINE [facility] Nov 20, 2022 10:30 AM AMBULATORY - MEDICINE [facility] Nov 20, 2022 11:00 AM AMBULATORY - MEDICINE [facility] Nov 20, 2022 11:30 AM AMBULATORY - MEDICINE [facility] Active, Pending, and Scheduled Orders This section includes a listing of several types of active, pending, and scheduled orders, including clinic medications orders, diagnostic test orders, procedure orders and consult orders; where the start date of the order is 45 days before the date of the Encounter or 45 days after the date of the Encounter. The data comes from all [place] treatment [facility]. Test Date/Time Test Type Test Details Facility Name May 15, 2022 12:00 Laboratory - COVID-19 AND FLU/RSV DIAG [facility] AM Chemistry Order PANEL(CEPHEID) NASOPHARYNGEAL SWAB STAT WC ONCE Jun 24, 2022 06:55 Laboratory - EXTRA BLUE TUBE PLASMA WC [facility] PM Chemistry Order Jun 24, 2022 06:55 Laboratory - EXTRA GOLD GEL TUBE SERUM [facility] PM Chemistry Order WC Jun 24, 2022 06:55 Laboratory - EXTRA PURPLE TUBE BLOOD [facility] PM Chemistry Order Jun 24, 2022 06:55 Laboratory - EXTRA MINT TUBE PLASMA WC [facility] PM Chemistry Order Jun 25, 2022 03:59 Consult Order PROSTHETICS [facility]QUEST [facility] PM [facility] Jul 10, 2022 12:00 Laboratory - RHEUMATOLOGY CHEM PANEL [facility] AM Chemistry Order PLASMA SP ONCE Jul 10, 2022 12:00 Laboratory - RHEUMATOLOGY HEME PANEL [facility] AM Chemistry Order BLOOD SP ONCE Lab Results: +/- 30 days of the encounter This section includes the Chemistry and Hematology Lab Results on record with NM for the patient. Radiology Reports and Pathology Reports are provided separately, in subsequent sections.Lab Results This section contains the Chemistry/Hematology Results that were resulted 30 days before or 30 daysafter the date of the Encounter. Date/Time Source Result Type Result - Unit Interpretation Reference Range Comment Jun 24, 2022 09:29 PM [facility] URINALYSIS Specim en Type: URINE No comment enter ed. Ordering Provid er: JAYDE MENDOZA Report Released Date/Time: Jun 24, 2022 06:55 PM Reporting Lab: [facility] [address] [facility] [id number] Performing Lab: [facility] [address] [facility] [address] URINE COLOR YELLOW SPECIFIC GRAVITY 1.039 H [...] 25 NEGATIVE Jun 24, 2022 08:24 PM [facility] AST/SGOT Specim en Type: PLASMA No comment enter ed. Ordering Provid er: JAYDE MENDOZA Report Released Date/Time: Jun 24, 2022 08:09 PM Reporting Lab: [facility] [address] [facility] [address] Performing Lab: [facility] [address] [facility] [address] AST/SGOT 19 <34 Jun 24, 2022 08:24 PM [facility] PROTEIN,TOTAL Specim en Type: PLASMA No comment enter ed. Ordering Provid er: JAYDE MENDOZA Report Released Date/Time: Jun 24, 2022 08:09 PM Reporting Lab: [facility] [address] [facility] [address] Performing Lab: [facility] [address] [facility] [address] PROTEIN,TOTAL 6.8 6.0-8.3 Jun 24, 2022 08:24 PM [facility] POTASSIUM Specim en Type: PLASMA No comment enter ed. Ordering Provid er: JAYDE MENDOZA Report Released Date/Time: Jun 24, 2022 08:09 PM Reporting Lab: [facility] [address] [facility] [address] Performing Lab: [facility] [address] [facility] [address] POTASSIUM 4.9 3.5-5.1 Jun 24, 2022 07:40 [facility] PROTHROMBIN TIME/INR Spec imen Type: PLASMA PM No comment enter ed. Ordering Provid er: KELLY,JAYDE W Report Released Date/Time: Jun 24, 2022 06:55 PM Reporting Lab: [facility] [address] Performing Lab: [facility] [address] .INR 1.1 0.8-1.1 .PT 12.1 9.4-12.5 Jun 24, 2022 07:32 [facility] COVID-19 DIAGNOSTIC Speci men Type: NASOPHARYNGEAL PM PANEL (CEPHEID) Comment: Cephei d GeneXpert (618) Ordering Provid er: JAYDE MENDOZA Report Released Date/Time: Jun 24, 2022 06:55 PM Reporting Lab: [facility] [address] Performing Lab: [facility] [address] COVID-19 (CEPHEID) Not Detected Not Dete cted Jun 24, 2022 [facility] COMPREHENSIVE METABOLIC Spec imen Type: PLASMA 07:29 PM PANEL+MG Comment: Cancel lation reported to: Rajni Giraldo RN on 06/24/22@2004 by [place]. Test result cancelled due to hemolysis interference in sample. Ordering Provid er: JAYDE MENDOZA Report Released Date/Time: Jun 24, 2022 06:55 PM Reporting Lab: [facility] [address] Performing Lab: [facility] [address] CREATININE 1.3 H 0.7-1.2 UREA NITROGEN 19 [...] L >60 Jun 24, 2022 07:29 PM [facility] CBC & DIFF Specim en Type: BLOOD Comment: [place] d Platelets. Invitro artefact. No clinical significance. Platelet count may be higher than stated value. Plt count = 214 K-cmm Manual Differential Performed Ordering Provid er: JAYDE MENDOZA Report Released Date/Time: Jun 24, 2022 06:55 PM Reporting Lab: [facility] [address] Performing Lab: [facility] [address] WBC 9.67 4.0-11.0 RBC 3.36 L 4.6-6.2 [...] dy Source Pressure Rate Mass Index Jun 24 [place] 2021 11:13 [facility] Jun 24 [place] 2021 11:12 [facility] Jun 24, 98.2 F 63 128/87 16 /min 92 % 8 62.0 in 116.0 21 [place] 2021 10:38 /min mm[Hg] lb [facility] Jun 24, 97.5 F 69 99/64 15 /min 8 [place] 2021 06:00 /min mm[Hg] [facility] Social History: Smoking Status (Most current) and Tobacco Use (All prior to encounter date) This section includes the most current, and the historical, smoking and tobacco-related health factors from the NM facility where the Encounter took place.Current Smoking Status This section includes the most current smoking, or tobacco-related health factor, from the [place] facility where the Encounter took place. Date/Time Current Smoking Status Comment Facility Mar 05, 2022 01:30 PM VA-TOBACCO FORMER USER [facility] Tobacco Use History This section includes a history of the smoking, or tobacco- related health factors, that were collected on or before the date of the Encounter. The data comes from the [facility] where the Encounter took place. Date/Time Smoking Status/Tobacco Use Comment Facil it Mar 05, 2022 01:30 PM VA-TOBACCO QUIT 1 TO < 5 YRS [facility] Jun 01, 2021 02:00 PM [facility] Dec 31, 2019 10:54 AM VA-TOBACCO FORMER USER [facility] Dec 31, 2019 10:54 AM [facility]-TOBAC[facility] QUIT < [facility] March 23, 2019 09:53 AM VA-TOBACCO FORMER USER [facility] March 23, 2019 09:53 AM VA-TOBACCO QUIT < 1 [facility] Jun 10, 2018 10:00 AM CURRENT TOBACCO USER [place] [facility] May 10, 2018 07:27 PM IN[place] TO[place]AC[place] COUNSELING [place] [facility] May 10, 2018 07:27 PM [place]ACCO US[place] [facility] Aug 29, 2017 09:55 AM FORMER TOBACCO USE <1Y [facility] May 26, 2017 10:51 PM [place]PT [place]AC[place] COUN[place]ING [place] [facility] May 26, 2017 10:51 PM INPT [place]ACCO USER [place] [facility] May 03, 2017 09:34 PM INPT [place]AC[place] COUNSELING [place] [facility] May 03, 2017 09:34 PM INPT [place]ACCO USER [place] [facility] Sep 18, 2016 01:36 PM FORMER TOBACCO USE <1Y [facility] Aug 10, 2016 03:54 PM INPT TOBACCO USE - PT REFUSED [facility] Aug 01, 2016 06:48 PM INPT [place]ACCO COUN[place]ING [place] [facility] Aug 01, 2016 06:48 PM INPT [place]ACCO US[place] [facility] Feb 08, 2015 09:57 AM CURRENT TOBACCO USER [place] [facility] Nov 29, 2013 10:37 AM CURRENT TOBACCO USER [place] [facility] Nov 26, 2013 11:09 AM PATIENT IS TOBACCO USER [place] [facility] Nov 27, 2012 12:12 PM CURRENT TOBACCO USER [place] [facility] Dec 27, 2011 09:44 AM CURRENT TOBACCO USER [facility] Jan 22, 2011 02:38 PM CURRENT TOBACCO USER [facility] Mar 13, 2010 12:48 PM CURRENT TOBACCO USER [facility] Advance Directives: All historical and current Section Date Range: From patient's date of to the date document was created. This section includes ALL of a patient's completed or amended [place] Advance and Rescinded Directives. The entries below indicate that a directive exists for the patient, but an actual copy is not included with this document. The data comes from all [facility]. Date Advance Directives Provider Source Feb 25, 2018 ADVANCE DIRECTIVE ANDREWAURORA PRESTON [facility] Feb 24, 2018 ADVANCE DIRECTIVE DISCUSSION AURORA MORALES [facility] May 26, 2017 CLINICAL WARNING MAGO CONTRERAS [facility] May 03, 2017 CLINICAL WARNING SARIAH ENGLE [facility] Aug 10, 2016 CLINICAL WARNING ISABEL BRACENAS [facility] Aug 02, 2016 CLINICAL WARNING AURORA ALMAZAN [facility] Encounter Notes: All associated encounter notes This section contains the clinical notes associated to the Encounter. Date/Time Encounter Note(s) Provider Source Jun 24, 2022 09:06 PHARMACY MEDICATION MGT NOTE: SHUBHAM BEAR [facility] PM LOCAL TITLE: DRUG RECONCILIATION ON ADMIT STANDARD TITLE: PHARMACY MEDICATION MGT NOTE DATE OF NOTE: JUN 24, 2022@21:06 ENTRY DATE: JUN 24, 2022@21:06:22 AUTHOR: SHUBHAM BEAR EXP COSIGNER: URGENCY: STATUS: COMPLETED PHARMACY MEDICATION HISTORY NOTE Medication & allergy history was compiled by azul morris to assist providers ordering inpatient medications. Essential medica tion list includes active local & remote VA prescriptions, non-VA medications, r ecently & discontinued prescriptions, pending & clinic medication order s. With the exception of allergies, if a category is not listed below, th ere were no relevant medications for the patient. [facility] orders will be reviewed to complete medication reconciliation. See [email or web address] Emergency Department documentation for medications given during emergency department visit. INTERVIEW Patient and/or caregiver has been INTERVIEWED by pharmacy. Patient discharged from [facility] earlier today and was brought to the ED for placement. Allergies: FACILITY ALLERGY/ADR -------- No Remote Allergy/ADR Data available for this [facility] LISINOPRIL Patient reports last scheduled medication(s) we re taken prior to admit this noon 06/24/22 See Anticoagulation note for indication, INR go al, and dose plan: LOCAL TITLE: PHARMACY ANTICOAGULATION CLINIC F/ U DATE OF NOTE: JUN 01, 2022 Tobacco use within the last 30 days No The following medications were administered carmela mosquera patient's inpatient stay at [facility]. ACTIVE ORDERS ACETAMINOPHEN TAB 1000MG TID LAST DOSE: 06/24/22@1500 AMIODARONE TAB 200MG QDAY LAST DOSE: 06/24/22@899 APIXABAN TAB 5MG BID LAST DOSE: 06/24/22@899 ASPIRIN TAB,EC 81MG QDAY LAST DOSE: 06/24/22@899 ATORVASTATIN TAB 80MG QDAY LAST DOSE: 06/24/22@0900 BISACODYL RTL SUPP ONE QDAY PRN LAST DOSE: 06/20/22@1400 CEPHALEXIN CAP 500MG QID X20 DOSES FOR UTI FIRST DOSE: 06/23/22@0800 LAST DOSE: 06/24/22@1200 CHOLECALCIFEROL TAB 25MCG QDAY LAST DOSE: 06/24/22@0900 CYANOCOBALAMIN TAB 1000MCG QDAY LAST DOSE: 06/24/22@0900 FLUTICASONE NASAL SPRAY 1 SPRAY BOTH NOSTRILS LAST DOSE: 06/24/22@0900 FOLIC ACID TAB 1MG QDAY LAST DOSE: 06/24/22@0900 GABAPENTIN CAP 300MG TID LAST DOSE: 06/24/22@1500 HEMMORHOIDAL OINT APPLY QID PRN FOR PAIN OR DISCOMFORT LAST DOSE: 06/24/22@0900 ISOSORBIDE MONONITRATE TAB,24HR ER 30MG QDAY LAST DOSE: 06/24/22@0900 LIDOCAINE 4% PATCH 1-3 PATCHES TOPICALLY QDAY LAST DOSE: 06/24/22@0900 PT REPORTS HAS ONE ON HIS MIDLINE BACK DUE TO BE REMOVED 06/24/22@2100 LORATADINE TAB 10MG QDAY LAST DOSE: 06/24/22@0900 LUBRICATING EYE DROPS 1-2 DROPS OU TID PRN FOR EYE DISCOMFORT, DRY EYE S LAST DOSE: 06/22/22@0800 MAGNESIUM HYDROXIDE SUSP 30ML QDAY PRN FOR CONSTIPATION LAST DOSE: 06/23/22@2000 METHOCARBAMOL TAB 250-500MG Q6H PRN FOR MUSCLE SPASM, MUSCLE PAIN LAST DOSE: 06/24/22@0400 METOPROLOL TARTRATE TAB 50MG BID LAST DOSE: 06/24/22@0900 MULTIVITAMIN TAB 1 QDAY LAST DOSE: 06/24/22@0900 ONDANSETRON ODT 4MG Q8H PRN FOR NAUSEA LAST DOSE: 06/19/22@0200 ONDANSETRON INJ 4MG Q8H PRN FOR NAUSEA AND VOMITING LAST DOSE: 06/24/22@0900 OXYCODONE TAB 2.5-5MG Q6H PRN FOR PAIN WHEN TAKING PO LAST DOSE: 06/24/22@0400 PANTOPRAZOLE TAB 40MG QDAY LAST DOSE: 06/24/22@0900 POLYETHYLENE GLYCOL PWDR 17GM BID LAST DOSE: 06/24/22@0800 PREDNISONE TAB 10MG QDAY LAST DOSE: 06/24/22@0900 PROCHLORPERAZINE INJ 5MG IV Q6H PRN FOR EA AND VOMITING LAST DOSE: 06/18/22@1900 PSYLLIUM HUSK PWDR 1 PO QDAY LAST DOSE: 06/24/22@1200 SENNA-DOCUSATE TAB 2 PO BID LAST DOSE: 06/24/22@0900 SULFASALAZINE TAB 1000MG PO BID LAST DOSE: 06/24/22@0900 TAMSULOSIN CAP 0.4MG QDAY X4 DOSES FIRST/LAST DOSE: 06/24/22@09 DISCONTINUED/ ORDERS ENOXAPARIN INJ 30MG SUBQ BID LAST DOSE: 06/20/22@08 HYDROMORPHONE INJ 0.2-0.4MG IV Q3H PRN FOR PAIN WHILE STRICT NPO LAST DOSE: 06/18/22@1430 MAGNESIUM SULFATE INJ 2GM IV ONCE LAST DOSE: 06/20/22@1200 THIAMINE TAB 100MG QDAY X3 DOSES LAST DOSE: 06/20/22@0800 06/24/2022 19:55 REGI MANTILLA [id number] Source of Info: [facility] Drug Last Refills Qty Filled Remaining ---- --- ------ --------- ACETAMINOPHEN 500MG TAB 200 06/15/2022 (8) TWO QID PRN *NOT TO EXCEED 4000MG IN 24 HOURS* FOR PAIN ADALIMUMAB 40MG/0.8ML INJ PEN KIT 2 05/31/2022 ( 2) INJECT 40 MG SQ EVERY 2 WEEKS Pt reports last dose 06/15/22, due for next do se 06/30/22 AMIODARONE HCL (PACERONE) 200MG TAB 90 2 (2) ONE QDAY FOR HEART RHYTHM - WITH FOOD APIXABAN 5MG TAB 180 06/06/2022 (3) ONE Q12H TO PREVENT BLOOD CLOTS & STROKE. ATORVASTATIN CALCIUM 80MG TAB 90 03/05/2022 (3) ONE QHS FOR CHOLESTEROL REPLACES SIMVASTATIN CARBOXYMETHYLCELLULOSE NA 0.25% OPH SO 45 2020 (3) 1 DROP IN BOTH EYES QID CYANOCOBALAMIN 1000MCG TAB 100 05/30/2022 (3) ONE QDAY FOLIC ACID 1MG TAB 90 04/25/2022 (3) ONE QDAY ISOSORBIDE MONONITRATE 60MG SA TAB 15 03/13/2022 (3) ONE-HALF QDAY Pt reports takes with pantoprozale QAM otherw ise he gets acid reflux METOPROLOL TARTRATE 50MG TAB 60 06/01/2022 (10) ONE BID PANTOPRAZOLE NA 40MG EC TAB 90 04/30/2022 (3) ONE QAM ONE-HALF HOUR BEFORE EATING TO DECREASE STOMACH ACID ON AN EMPTY STOMACH, AT LEAST 30 MINUTES PRIOR TO MEAL PREDNISONE 10MG TAB 90 05/08/2022 (2) ONE QDAY Pt does not recognize this medication SULFASALAZINE 500MG TAB 360 01/19/2022 (1) TWO BID Pt does not recognize this medication The following prescriptions have expir ed - Pt taking CHOLECALCIF 25MCG (D3-1,000UNIT) TAB 100 022 (0) ONE EVERY DAY : 06/02/2022 FLUTICASONE PROP 50MCG 120D NASAL INHL 1 021 (3) SPRAY 1 SPRAY IN EACH NOSTRIL BID PRN FOR RUNNY NOSE USE REGULARLY FOR RELIEF OF ALLERGIES/CONGEST ION : 06/02/2022 LORATADINE 10MG TAB 90 04/24/2022 (0) ONE QDAY FOR ALLERGY SYMPTOMS : 06/02/2022 The following are non-VA medicatio ns All prescribed at [facility] arge CEPHALEXIN 500MG CAP ONE QID FOR 14 DOSES FOR UTI GABAPENTIN 300MG CAP ONE TID FOR 14 DAYS FOR NEUROPATHIC PAIN HEMORRHOIDAL RTL OINT APPLY TOPICALLY QID PRN LIDOCAINE 4% PATCH APPLY 1-3 PATCHES QDAY METHOCARBAMOL 500MG TAB ONE-HALF TO ONE TAB Q6H PRN FOR MUSCLE PAIN OXYCODONE 5MG TAB ONE-HALF TO ONE TAB Q4H PRN POLYETHYLENE GLYCOL 17GM PKT ONE BID SENNA-DOCUSATE 8.6-50MG TAB TWO BID FOR 14 DAYS TAMSULOSIN 0.4MG CAP ONE QDAY FOR 3 DOSES Recently discontinued medications- Drug Name ASPIRIN 81MG EC TAB Issue Date 06/01/2021 Discontinue Date 04/10/2022 SIG TAKE ONE TABLET BY MOUTH EVERY DAY Facility: [facility] Pt confirms stopped No pending, remote, or clinic medications /es/ SHUBHAMMACRINA BEAR PHARMACIST Signed: 06/24/2022 21:57 Receipt Acknowledged By: * AWAITING SIGNATURE * DAISY CASILLAS * AWAITING SIGNATURE * [place]
--- OUTSIDE RECORDS SUMMARY | 2022-06-25 19:38 | XMS_ITS ---
HOSPITALIZATION [facility] Encounter Summary Created on:June 24, 2022 Patient:REGI MANTILLA Sex:Male :1950 Author Organization Department [facility] Address [address] [place] [address] Support Name Relationship Address Phone MADELIN MANTILLA Unavailable [address] [phone] [place] [address] MADELIN MANTILLA Unavailable [address] [phone] [place] [address] DHAVAL MANTILLA Unavailable [address] [place] [address] Insurance Providers: All historical and current Section [...] MEDICARE MEDICARE PART Jul 18, PART B [id number] ANNALEE BRYANIENT (WNR) (M) B 2014A [phone] ,REGI MEDICARE MEDICARE PART Apr 17, PART A [id number] ANNALEE Cardenas ATIENT (WNR) (M) A [id number] [id number] ,REGI Selected Encounter This section includes the information on record at [place] for the Encounter. Date/Time Encounter Type Encounter Description Reason Provider Source Jun 24, 2022 Inpatient Visit H[facility]PITALIZATION [place] 10:13 PM ISSAK E Encounter Template Text not used by [place] [...] 20 appointments. The data comes from all [facility]. Appointment Date/Time Appointment Type Appointment Facili ty Name Jul 12, 2022 09:20 AM AMBULATORY - SURGERY [facility] Jul 19, 2022 08:00 AM AMBULATORY - MEDICINE [facility] Jul 19, 2022 09:00 AM AMBULATORY - MEDICINE [facility] Nov 20, 2022 10:30 AM AMBULATORY - MEDICINE [facility] Nov 20, 2022 11:00 AM AMBULATORY - MEDICINE [facility] Nov 20, 2022 11:30 AM AMBULATORY - MEDICINE [facility] Active, Pending, and Scheduled Orders This section includes a listing of several types of active, pending, and scheduled orders, including clinic medications orders, diagnostic test orders, procedure orders and consult orders; where the start date of the order is 45 days before the date of the Encounter or 45 days after the date of the Encounter. The data comes from all [facility]. Test Date/Time Test Type Test Details Facility Name May 15, 2022 12:00 Laboratory - COVID-19 AND FLU/RSV DIAG [facility] AM Chemistry Order PANEL(CEPHEID) NASOPHARYNGEAL SWAB STAT WC ONCE Jun 24, 2022 06:55 Laboratory - EXTRA BLUE TUBE PLASMA WC [facility] PM Chemistry Order Jun 24, 2022 06:55 Laboratory - EXTRA GOLD GEL TUBE SERUM [facility] PM Chemistry Order Jun 24, 2022 06:55 Laboratory - EXTRA PURPLE TUBE BLOOD [facility] PM Chemistry Order Jun 24, 2022 06:55 Laboratory - EXTRA MINT TUBE PLASMA WC [facility] PM Chemistry Order Jun 25, 2022 03:59 Consult Order [facility]OSTHET[facility] PM Welding Engineer's Choice Jul 10, 2022 12:00 Laboratory - RHEUMATOLOGY CHEM PANEL [facility] AM Chemistry Order PLASMA SP ONCE Jul 10, 2022 12:00 Laboratory - RHEUMATOLOGY HEME PANEL [facility] AM Chemistry Order BLOOD SP ONCE [...] Range Comment Jun 24, 2022 09:29 PM [facility] URINALYSIS Specim en Type: URINE No comment enter ed. Ordering Provid er: JAYDE MENDOZA Report Released Date/Time: Jun 24, 2022 06:55 PM Reporting Lab: [facility] [address] [facility] [address] Performing Lab: [facility] [address] [facility] [address] URINE COLOR YELLOW SPECIFIC GRAVITY 1.039 H [...] 25 NEGATIVE Jun 24, 2022 08:24 PM [facility] AST/SGOT Specim en Type: PLASMA No comment enter ed. Ordering Provid er: JAYDE MENDOZA Report Released Date/Time: Jun 24, 2022 08:09 PM Reporting Lab: [facility] [address] [facility] [address] Performing Lab: [facility] [address] [facility] [address] AST/SGOT 19 <34 Jun 24, 2022 08:24 PM [facility] POTASSIUM Specim en Type: PLASMA No comment enter ed. Ordering Provid er: JAYDE MENDOZA Report Released Date/Time: Jun 24, 2022 08:09 PM Reporting Lab: [facility] [address] [facility] [address] Performing Lab: [facility] [address] [facility] [address] POTASSIUM 4.9 3.5-5.1 Jun 24, 2022 08:24 PM [facility] PROTEIN,TOTAL Specim en Type: PLASMA No comment enter ed. Ordering Provid er: JAYDE MENDOZA Report Released Date/Time: Jun 24, 2022 08:09 PM Reporting Lab: [facility] [address] [facility] [address] Performing Lab: [facility] [address] [facility] [address] PROTEIN,TOTAL 6.8 6.0-8.3 Jun 24, 2022 07:40 [facility] PROTHROMBIN TIME/INR Spec imen Type: PLASMA PM No comment enter ed. Ordering Provid er: JAYDE MENDOZA Report Released Date/Time: Jun 24, 2022 06:55 PM Reporting Lab: [facility] [phone] Performing Lab: [facility] [address] .INR 1.1 0.8-1.1 .PT 12.1 9.4-12.5 Jun 24, 2022 07:32 [facility] COVID-19 DIAGNOSTIC Speci men Type: NASOPHARYNGEAL PM PANEL (CEPHEID) Comment: Cephei d GeneXpert (618) Ordering Provid er: JAYDE MENDOZA Report Released Date/Time: Jun 24, 2022 06:55 PM Reporting Lab: [facility] [address] Performing Lab: [facility] [phone] COVID-19 (CEPHEID) Not Detected Not Dete cted Jun 24, 2022 [facility] COMPREHENSIVE METABOLIC Spec imen Type: PLASMA 07:29 PM PANEL+MG Comment: Cancel lation reported to: Rajni Giraldo RN on 06/24/22@2003 by [place]. Test result cancelled due to hemolysis interference in sample. Ordering Provid er: JAYDE MENDOZA Report Released Date/Time: Jun 24, 2022 06:55 PM Reporting Lab: [facility] [address] Performing Lab: [facility] [address] CREATININE 1.3 H 0.7-1.2 UREA NITROGEN 19 [...] L >60 Jun 24, 2022 07:29 PM [facility] CBC & DIFF Specim en Type: BLOOD Comment: [place]um[place] d Platelets. Invitro artefact. No clinical significance. Platelet count may be higher than stated value. Plt count = 214 K-cmm Manual Differential Performed Ordering Provid er: JAYDE MENDOZA Report Released Date/Time: Jun 24, 2022 06:55 PM Reporting Lab: [facility] [address] [facility] [address] Performing Lab: [facility] [address] WBC 9.67 4.0-11.0 RBC 3.36 L 4.6-6.2 [...] Mass Index Jun 24 [place] 2021 11:13 [facility] Jun 24 [place] 2021 11:12 [facility] Jun 24, 98.2 F 63 128/87 16 /min 92 % 8 62.0 in 116.0 21 [place] 2021 10:38 /min mm[Hg] lb [facility] Jun 24, 97.5 F 69 99/64 15 /min 8 [place] 2021 06:00 /min mm[Hg] [facility] Social History: Smoking Status (Most current) [...] 2022 01:30 PM VA-TOBACCO FORMER USER [facility] Tobacco Use History This section [...] 2021 02:00 PM [facility] Dec 31, 2019 10:54 AM VA-TOBACCO FORMER USER [facility] Dec 31, 2019 10:54 AM [place]-TOBACCO QUIT < 1 YEAR M [facility] March 23, 2019 09:53 AM VA-TOBACCO FORMER USER [facility] March 23, 2019 09:53 AM VA-TOBACCO QUIT < 1 YEAR M [facility] Jun 10, 2018 10:00 AM CURRENT TOBACCO USER [facility] May 10, 2018 07:27 PM IN[place]AC[place] COUNSEL[place] [facility] May 10, 2018 07:27 PM [facility] Aug 29, 2017 09:55 AM FORMER TOBACCO USE <1Y [facility] May 26, 2017 10:51 PM INPT TO[place]ACCO COUNSELING [place] [facility] May 26, 2017 10:51 PM [facility] May 03, 2017 09:34 PM [facility] May 03, 2017 09:34 PM INPT TOBACCO USER [place] [facility] Sep 18, 2016 01:36 PM FORMER TOBACCO USE <1Y [facility] Aug 10, 2016 03:54 PM INPT TOBACCO USE - PT REFUSED [facility] Aug 01, 2016 06:48 PM [facility] [facility] Aug 01, 2016 06:48 PM [facility] Feb 08, 2015 09:57 AM CURRENT TOBACCO USER [facility] Nov 29, 2013 10:37 AM CURRENT TOBACCO USER [facility] Nov 26, 2013 11:09 AM PATIENT IS TOBACCO USER [place] [facility] Nov 27, 2012 12:12 PM CURRENT TOBACCO USER [facility] Dec 27, 2011 09:44 AM CURRENT TOBACCO USER [facility] Jan 22, 2011 02:38 PM CURRENT TOBACCO USER [facility] Mar 13, 2010 12:48 PM CURRENT TOBACCO USER [facility] Advance Directives: All historical and current Section Date Range: From patient's date of to the date document was created. This section includes ALL of a patient's completed or amended [place] Advance and Rescinded Directives. The entries below indicate that a directive exists for the patient, but an actual copy is not included with this document. The data comes from all [facility]. Date Advance Directives Provider Source Feb 25, 2018 ADVANCE DIRECTIVE AURORA MORALES [facility] Feb 24, 2018 ADVANCE DIRECTIVE DISCUSSION AURORA MORALES [facility] May 26, 2017 CLINICAL WARNING MAGO CONTRERAS [facility] May 03, 2017 CLINICAL WARNING SARIAH ENGLE [facility] Aug 10, 2016 CLINICAL WARNING ISABEL BARCENAS [facility] Aug 02, 2016 CLINICAL WARNING AURORA ALMAZAN [facility] Encounter Notes: All associated encounter notes This section contains the clinical notes associated to the Encounter. Date/Time Encounter Note(s) Provider Source Jun 25, 2022 02:14 INTERNAL MEDICINE INPATIENT NOTE: MAN MACK [facility] PM LOCAL TITLE: MEDICINE INPT PROGRESS NOTE STANDARD TITLE: INTERNAL MEDICINE INPATIENT NOTE DATE OF NOTE: JUN 25, 2022@14:14 ENTRY DATE: JUN 25, 2022@14:14:41 AUTHOR: KAITLIN MACK EXP COSIGNER: URGENCY: STATUS: COMPLETED INPATIENT PROGRESS NOTE Subjective: No acute events overnight. Nursing notes reviewe d. Patient states that he has not had a BM for about 4 days. Otherwise, no new concerns. Endorses continued and unchanged neck pain, upper extremity weaknes s and tingling, hand numbness, stuttering, and urinary retention afte r his fall on 06/17. Objective: General: Awake, Alert, Oriented X3, No apparent distress. C-collar in place. HEENT: EOMI. Healing scalp wounds. Cardio: Irregularly irregular. Regular rate. Lungs: Clear to auscultation bilaterally, no aircraft designer ckles, no wheezing, no increased WOB. Abd: Soft, non-tender, non-distended, +bowel makeda nds, no rebound, no guarding : Castro in place draining yellow urine. Extrem: No clubbing/cyanosis/edema, 2+ bilateral pulses. Neuro: Cranial Nerves II-XII grossly intact. 3/5 strength in bilateral upper extremities. 5/5 strength in bilateral lower ext remities. Assessment/Plan: Mr. Mantilla is a 68 year old MALE with PMH sig nificant for CAD s/p stent x 3 (prox LCX, distal LCX, OM2) in 07/2016, alcohol use disorder, CKD, seropositive rheumatoid arthritis and pAfib on apixaban [facility] the setting of alcohol intoxication who was discharged from [facility] on 06/24/2022 and presented to [facility] for assistance with finding [facility] U. ACUTE ISSUES # C5 pedical fracture # Central cord syndrome # Mechanical fall Per records from [facility], patient had an accidental fall from bed on 06/17. Team suspected falls are 2/2 alcohol use. C T head negative for intracranial bleed. MR revealed multilevel cervi sergio spondylosis w/ severe C4- 5 and C5-6 central canal stenosis. Neurosurgery recommended non-operative management for C5 fracture w/ elective cervical decompression (once C5 fracture heals). Patient progressed w/ PT and OT and was cleared to return home w/ family support. Patient's family wanted to pursue private pay TCU and/or home cares, however this was not an optio n at time of discharge d/t lack of skilled need and availability. - [place] x 3mo - Qshift neuro assessment - Pain management: scheduled APAP, oxycodone PRN , gabapentin TID, lidocaine patch - PT/OT consulted for discharge recs - Will touch base with family pending PT/OT recs - F/u w/ neurosurgery as outpatient # UTI # Acute urinary retention, suspect 2/2 cervical neck fractures # Indwelling castro catheter Discharge meds contains Keflex for 7 days course . Pt history that he has failed TOV but denies symtoms of dysuria or incr eased frequency. Castro replaced 06/22 with plans to leave in for 1 week w / home lending officer removal at home. - Continue SENIOR WATER RESOURCES ENGINEER Keflex - Continue SENIOR WATER RESOURCES ENGINEER tamsulosin - F/u w/ urology as outpatient # Constipation # Internal hemorriods Patient usually has daily BM. Became constipated during prior admission, likely 2/2 opioid use. Patient had BRBPR w/ stra ining during prior admission, although currently denies. Hgb near baseline. - Bowel regimen: scheduled docusate and Miralax, PRN tap water enema - Hemorrhoid cream CHRONIC/STABLE/RESOLVED ISSUES # Alcohol use disorder Patient previously drank daily (1-3 beers, 2 ron ts of whisky). Last drink a couple of weeks ago. Patient states that he is i nterested in abstinence after his most recent fall. - ADS consulted - Patient is not interested in [facility] tx servic es in [place] at this time # CAD (ARLYN x 3 to prox LCX, distal LCX, OM2 in - Imdur to 60 mg daily - metoprolol tart 50 mg BID #Paroxysmal A.fib/flutter With 03/2022 14-day Zio w/ 31% AT vs. AFl burden w/ average HR 140 bpm. -mine captain apixaban -mine captain amiodrone -follows with EP, last since seen in 04/2022 #CKD Admission cr 1.3. Baseline 1.2-1.4. -CTM, avoid nephrotoxic agents #Seropositive RA -mine captain prednisone 10 mg daily -mine captain sulfasalazine 1000 mg BID OUTPATIENT FOLLOW UP - Specialists: [facility] (4 week s), urology - Discharge summary instructions regarding C5 fr acture and central cord syndrome: - Upright cervical XR in 4 weeks - No lifting > 10 lbs - Continue to wear neck brace at all times - Home health nursing in 1 week for Castro remova l Fluids/Electrolytes/Nutrition (FEN): regular Deep Vein Thrombosis (DVT) Prophylaxis: apixaban Code Status: FULL Disposition: acute care pending placement I have seen and discussed the patient with my at tending, , who agrees with the above assessment plan. /mikal/ KAITLIN MACK Resident Signed: 06/25/2022 15:25 Jun 25, 2022 01:15 NUTRITION CONSULT: LAUREN CARROLL [facility] LOCAL TITLE: NUTRITION CONSULT STANDARD TITLE: NUTRITION CONSULT DATE OF NOTE: JUN 25, 2022@13:15 ENTRY DATE: JUN 25, 2022@13:16 AUTHOR: LAUREN CARROLL EXP COSIGNER: URGENCY: STATUS: COMPLETED NUTRITION INITIAL ASSESSMENT Reason for consult/assessment: Consult for low B raden score Diagnosis: Fall/Weakness Pertinent past medical history: HTN, HLD, alcoho l abuse, GERD, CAD, CKD, elevated liver enzymes, cannabis use, others rev iewed Height: 62.0 in [157.5 cm] (06/24/2022 22:38) Weight: Measurement DT WEIGHT LB(KG)[BMI] 06/24/2022 22:38 116.0(52.62)[21] 05/15/2022 12:50 123.9(56.20)[23] 04/12/2022 08:13 122.1(55.38)[22] BMI: 21 Usual body weight: 130#'s [place] body weight: 118#'s Recent weight changes: -14#'s in the pas t few months per pt report, -5.7% body weight loss in the past 3 months per chart weigh ts. Diet Order: Regular Intake: ~50% Diet history: RD met with at bedside. He states that he doesn't eat much at home at all but his cooks and makes foods including; hamburgers, grilled cheese, soup, ribs, fish, chicken, banan as, peaches, pears, mixed vegetables, eggs, milk, juice, prefers whole mil k at meals. He does not like any tacos, burritos, Mex[place] n food. [place] distractible, needs redirection to nutrition conversation at times. Noted H &P indicated alcohol use, replacing PO intake? Food preferences obtained Cultural/anglican food preferences: None Food Allergies: None Feeding assistance: Needs assistance, cut and op en, assist with tray set up Food Insecurity: Denies need for assistance Digestive issues: Appetite: poor Chewing: Missing many teeth, is a barrier to eat ing better Nausea: with pills occasionally Vomiting: with pills occasionally Bowels: LBM ~1 week ago per pt, has hemorrhoids and noted that he has had bleeding but not stooling. Declined prune juice, notes he was given a suppository. Labs SODIUM 133 L (06/24/22) CREATININE 1.3 H (06/24/22) 06/24/2022 CREAT EGFR(CKD-EP 58 L 01/31/2020 VIT D 25-OH,TOTAL 19 L ng/mL GLUCOSE 111 H (06/24/22) Pertinent Medications: ondansetron prn, senna prn, sertraline, others reviewed Malnutrition Assessment (per AND/ASPEN Consensus Statement, 2012): Suspect Mild to Moderate Inflammation Severe Inadequate Energy Intake: <75% >/= 1 aundrea h Unable to Assess Weight Loss Mild Body Fat Loss Noted: orbital fat pad, bharat ps, ribs Severe Muscle Loss Noted: temporal, trapezius, d eltoids, pectoral, interosseous, quadriceps, gastrocnemius Not Able to Assess for Fluid Accumulation Accident Report Clerk Strength Not Assessed Conclusion: Based on the above findings, the meets the clinical characteristics to support a diagnosis of: Severe Chronic Disease R elated Malnutrition. Skin Condition: skin intact per 06/25 nursing note Luther Score 15, Nutrition subscore 2 Estimated Nutrient Needs based on actual body we ight of 52kg 0716-8405 calories/day 30-35 kcal/kg ~62 grams protein/day ~1.2 g/kg *Monitor renal f unction 9682-0392 ml fluids/day 1 ml/kcal consumed or pe r MD Nutritional Diagnosis: Severe malnutrition r/t diff iculty chewing, decreased appetite AEB subjective pt statements of significant weight loss, NFPE resu lts indicating muscle and fat loss, and report of decreased PO intake. Nutrition Recommendations/Interventions: --Continue with regular diet - RD reviewed how t o use select menus and which foods can be added that are not on the menu. Pt declined softer diet, prefers regular diet so he has more choice and plans to choose soft foods. --Will update food preferences: removed all Mexi can foods, etc. --Add ensure 2x daily --Encourage and monitor oral intake, weight, and labs. --Nutrition education/counseling: alerted pt to malnutrition diagnosis, ways to resolve malnutrition. Encouraged small freque nt meals, high protein and high calorie foods, discussed ONS and policy, en couraged food first approach. --Coordination of nutrition care: pt agreeable t o RTC after d/c for f/u on malnutrition Patient meets criteria for severe malnutrition. MD - Please include as secondary diagnosis in progress note(s) if in ag reement. W/hx of alcohol use recommend adding thiamine tuttle pplement. Monitoring and Evaluation: 1 - eat >75% at majority of meals 2 - report drinking majority of ensure Registered Dietitian to follow up in 5-7 days if still an inpatient. Patient Education of Treatment Plan: Patient indicates readiness to learn, verbalizes understanding, agreement and satisfac tion with the treatment plan. Denies further questions. /mikal/ LAUREN CARROLL MS, RD, LD Signed: 06/25/2022 13:32 Receipt Acknowledged By: * AWAITING SIGNATURE * CAYETANO CABELLO Jun 25, 2022 12:53 ATTENDING ADMISSION EVALUATION NOTE: CAYETANO CABELLO [facility] PM LOCAL TITLE: MEDICINE ADMISSION STAFF NOTE STANDARD TITLE: ATTENDING ADMISSION EVALUATION N OTE DATE OF NOTE: JUN 25, 2022@12:53 ENTRY DATE: JUN 25, 2022@12:53:28 AUTHOR: CAYETANO CABELLO EXP COSIGNER: URGENCY: STATUS: COMPLETED INPATIENT MEDICINE STAFF ATTENDING NOTE Patient seen and examined by me. Work up and Treatment Plan: Reviewed Dr. Archana Hills's H&P was presented to me by Dr. Flora Miranda. I have verified pertinent findings and discussed the assessment, goals, diagnostic evaluation and treatment plan with Dr. Miranda. Summary noted below. Plan of care was discussed with the patie nt and/or family (risks/benefits/alternatives) REASON FOR ADMISSION: Fall/Weakness PERTINENT HISTORY: A 72 year old male with RA, CAD, CKD recent fall with C5 fx. Patient was treated at [facility] for C5 fx and central cord syndrome. They considered a rehab stay, but already discharged patient home. Patient returns with desire for rehab stay PERTINENT EXAM: Physical Findings: Tmax: 99.4; HR: 73; BP: 115/71; RR: 16; SO2: 89% GEN: elderly male, seated on side of bed in C-collar, no apparent discomfort or distress ASSESSMENT & TREATMENT PLAN / RECOMMENDATIONS: 72 year old male with RA, CAD, CKD recen t fall with C5 fx. Patient was treated at [facility] for C5 fx and central cord syn drome 1. Weakness/Rehab: patient had outpatient follow -up plan established by [facility]; plan to follow-up with Neurosurgery as outpatient. - PT evaluated patient here. Full note p ending; but reportedly did not feel he required STR either; can likely discharge home N Osei [phone] /es/ CAYETANO CABELLO MD PHYSICIAN Signed: 06/25/2022 13:02 Jun 25, 2022 10:34 OCCUPATIONAL THERAPY INITIAL EVALUATION NOTE: ASHA TONG [facility] TITLE: OT-EVALUATION NOTE MALINI STANDARD TITLE: OCCUPATIONAL THERAPY INITIAL CHANDRA LUATION NOTE DATE OF NOTE: JUN 25, 2022@10:34 ENTRY DATE: JUN 25, 2022@10:34:26 AUTHOR: PRESTON CHAVEZ EXP COSIGNER: ASHA TONG URGENCY: STATUS: COMPLETED OT-EVALUATION NOTE Has ADDENDA OCCUPATIONAL THERAPY EVALUATION NOTE Referring provider: BAL [facility]S Diagnosis for which patient is referred to OT: weakness Consult request: Evaluation and Treatment Precautions: no lifting > 10 lbs due to C5 frac ture, c collar Date of Service: 06/25/22 Encounter: 20 minutes low complexity evaluation ASSESSMENT: Manohar Mantilla is 72 yo referred to this sett ing of weakness as well as management of TSCI with weight bearing precautio ns. Vet's PMH includes HTN, alcohol abuse, CAD, CKD, mul tifocal atrial tachycardia, atrial fibrillation, and hearing loss. OT consulted for assessment and tr eatment. At baseline, manohar lives in a home with his and son. Manohar r eported that he was IND in I/ADLs, however received assistance with tying shoes, buttoning his shirts and other fine motor tasks. Following assessment, manohar presents near base line due to deficits in decreased ROM of R shoulder, and decreas ed strength in bilateral wrists/hands, pain, weight-bearing precautions, defici ts in static/dynamic standing balance, impulsivity in movements, decline in cognition i mpacting ADL/IADL safety and independence. [place] required SBA<>C GA during functional mobility and ambulation with FWW on this date. de monstrated impulsivity throughout session, and favored lateral leaning while sitting EOB. Vet was limited to ~2 minutes of static EOB sitting with proper posture, before returning to lateral leaning. Vet was gu arded in UE movements on this date due to reported pain, however potentially may be césar f-limiting as well. Education provided in weight-bearing precautions, POC with OT and role of occupational therapy, with vet verbalizing understanding. Vet has fair rehab potential on this date, and would benefit from i npt OT services prior to discharging to STR to address stated limitations impacting safety and independence in ADL performance. PLAN: Patient will be seen 3 times per week for 30 minute sessions until goals are met and/or discharged. SHORT TERM GOALS TO BE MET BY 07/03/22: 1. Vet will complete total body dressing with m odified independence, using adaptive equipment as needed.-NEW 2. Vet will complete full toileting task, inclu ding transfers, hygiene, and clothing management with modified independe nce.-ongoing 3. Vet will complete > 5 minutes of standing gr ooming/hygiene activities including gathering of supplies with supervisio n.-ongoing 4. Vet will participate in identification and t rialing of appropriate adaptive equipment/durable medical equipment to promote functional independence and safety at home.-NEW 5. Vet will participate in appropriate cognitiv e screen to identify potential limitations negatively impacting I/AD L performance.-NEW 6. 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 DISCHARGE: would benefit from s hort-term rehabilitation for 2-3 weeks stay prior to discharge to least restrictive environment to ad dress independence with basic self-cares and home safety. PATIENT EDUCATION ON TREATMENT PLAN: Patient indicates readiness to learn, verbalizes understanding, agreement and satisfaction with the treatment plan. Denies fur ther questions. CURRENT MEDICAL HISTORY: Benign essential hypertension (SCT [id number] loss (ICD-9-CM 389.9) HTN - Hypertension ([facility] [id number]) Hyperlipidemia ([facility] [id number]) Alcohol abuse ([facility] [id number]) Cannabis abuse ([facility] [id number]) Pain in joint involving shoulder region Anemia ( [facility] [id number]) Jt Replcmnt Stat, Knee (ICD-9-CM V43.65)Gastroes ophageal reflux disease ([facility] [id number]) CAD - Coronary artery disease ([facility] [id number] no n-ST segment elevation myocardial infarction ([facility] [id number]) Chronic kidney disease ([facility] [id number]) Rib fract ure ([facility] [id number]) Pain of right shoulder joint ([facility] [id number] landry n ([facility] [id number]) Ankle pain ([facility] [id number]) Rhinitis ([facility] [id number] 2) Seropositive rheumatoid arthritis (SCT 2Multifoc al atrial tachycardia ([facility] [id number]) Elevated liver enzymes level ([facility] [id number] al atrial fibrillation ([facility] [id number]) Long-term current use of anticoagulant (Drug mon itoring done ([facility] [id number]) SUBJECTIVE: approach ed sitting EOB on this date. [place] agreeable to OT session. tangential with conversation, a nd required redirection to complete full OT evaluation. 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 CONTEXT SOCIAL HISTORY/HOME ENVIRONMENT: Lives: , and son Primary Support System: Lives in: home Home accessibility comments: +3 SANTOS with railing +walk in shower, no shower chair, no grab bars +normal height toilet, no grab bars +main level needs PRIOR LEVEL OF INDEPENDENCE: Reported prior IND in I/ADLs, however required assistance for fine motor tasks such as tying sh oes and buttoning shirts. PAIN: Vet wincing intermittently with movement o f UEs throughout session. Reported numbness and hot pain in bilateral wris ts and hands. OBJECTIVE: FUNCTION IN AREAS OF OCCUPATION: Activities of Daily Living (ADLs) -Hygiene and grooming: DNT -Feeding: DNT, observed vet holding coffee cup in left hand and taking a drink through a straw. -Toileting: CGA for toilet transfer x2 with use of FWW and grab bar. demonstrating impulsivity when sitting down. -UE Dressing: DNT -Lower Extremity Dressing: DNT -Functional mobility (Transfers): SBA for STS x 2 with FWW. -Bed mobility: SBA for sitting EOB on this date , however vet demonstrating lateral leaning throughout s ession. During 10 minutes sitting EOB, vet was able to sit upright for ~2-3 minutes. At this time, u nsure if it is his preferred posture to laterally lean, or if it is due to pa in or another contributing factors. -Falls/Mobility: SBA<>CGA for functiona l ambulation to and from bathroom with FWW. impulsive durin g ambulation, requiring verbal cues to decrease his pace. Noted instances x2 whi le statically standing that pt had decreased balance requiring CGA for stabilization. EDUCATION: Vet provided education on weight bear ing precautions, POC with OT, and the role of occupational therapy. VITALS: N/A IDENTIFIED ADAPTIVE EQUIPMENT NEEDS: TBD COGNITION: - Orientation: Oriented to person, place, time, situation - Attention span: Attends for full session - Commands: Able to follow 1-2 step commands - Communication: Verbal, able to make needs know n, appropriate - Safety Awareness: Impaired, impulsive, poor pr oblem solving EMOTIONAL/BEHAVIORAL: Approp riate affect, Acknowledges others, Initiates/engages conversation, Tangential conversation, Calm/plea barbie, and Cooperative NEUROMUSCULAR FUNCTION: +During MMT, vet guarded during wrist supination , pronation, and flexion, extension. During functional task, vet able to hold coffee cup in left hand and bring to mouth to take a dri nk with a straw. Limitations may be partially due to guarded behavior with pain. RIGHT UPPPER EXTREMITY ROM: +shoulder flexion/extension: 45 +shoulder abduction: 45 +elbow flexion/extension: WNL +supination: WNL +pronation: WNL +radial/ulnar deviation: WNL +wrist flexion/extension: WNL +finger flexion/extension: WNL Strength: Wrist testing may be limited due to gu arding with pain +shoulder flexion/extension: DNT, due to precaut ions +shoulder abduction: DNT, due to precautions +elbow flexion/extension: 5/5 +supination: 3/5 +pronation:3/5 +wrist flexion/extension: 3/5 +finger flexion/extension: 3/5 +Accident Report Clerk strength: 4/5 Coordination: WFL Sensation: Intact in ulnar, median, radi al, and musculocutaneous distributions with light touch LEFT UPPER EXTREMITY ROM: +shoulder flexion/extension: WNL +shoulder abduction: WNL +elbow flexion/extension: WNL +supination: WNL +pronation: WNL +radial/ulnar deviation: WNL +wrist flexion/extension: WNL +radial/ulnar deviation: WNL +finger flexion/extension: WNL Strength: Wrist testing may be limited due to gu arding with pain +shoulder flexion/extension: DNT, due to precaut ions +shoulder abduction: DNT, due to precautions +elbow flexion/extension: 5/5 +supination: 3/5 +pronation: 3/5 +radial/ulnar deviation: 3/5 +wrist flexion/extension: 3/5 +finger flexion/extension: 3/5 +Accident Report Clerk strength: 4/5 Coordination: WFL Sensation: Intact in ulnar, median, radi al, and musculocutaneous distributions with light touch. Vet reporting numbness and hot pain in bilateral hands. VISION: WFL OCCUPATIONAL THERAPY EVALUATION COMPLEXITY Identifying and reporting the complexity level o f an evaluation focuses on the first three of these factors--profile and hi story, assessment and determination of deficits, and clinical decision making. These three factors must be scored and defensible documentation wr itten to support the choice of a level. (Information taken from: https://www .[facility].org) PROFILE AND HISTORY (including chart view) Brief history of medical and/or therapy records relating to the presenting problem (low complexity) ASSESSMENT & PERFORMANCE DEFICITS (select all th at apply): Physical & Cognition 1-3 performance deficits (Low complexity) LEVEL OF CLINICAL DECISION MAKING Problem-focused assessment(s), consideration of a limited number of treatment options, presents with no comorbidities and dereje fication of tasks or assistance is not necessary.(Low complexity) LOW COMPLEXITY Brief history of medical/or therapy records relating to the presenting problem. An assessment(s) that identifies 1-3 performance deficits that result in activity limitation and/or participating restric tions. Includes analysis of the occupational profile, a nalysis of date from problem- focused assessment(s), and consideration of a li mited number of treatment options. Patient presents with no c omorbidities that affect occupational performance. Modification of tasks or assistance with assessm ent(s) is not necessary to enable completion of evaluation component. /mikal/ ASHA TONG MS, OTR/L OCCUPATIONAL THERAPIST Signed: 06/25/2022 15:46 for PRESTON CHAVEZ OCCUPATIONAL THERAPY STUDENT /es/ ASHA TONG MS, OTR/L OCCUPATIONAL THERAPIST Cosigned: 06/25/2022 15:46 06/25/2022 ADDENDUM STATUS: COMPLETED In area supervision Agree with trainee note with comments below. Nature of encounter: being seen for treatment diagnosis of we akness to address functional performance. Therapy session(s) focus ed on assessment/treatment of ADL and mobility performance. Clinical thinking, assessment and treatment plan : The clinical decision making process for the mariluz atment provided, patient response to treatment, therapist assessm ent of the response to treatment, and plan of care documented in this n ote have been formulated and approved by the primary OT. Encounter data warehouse analyst was approved by the primary OT and is accurate for the services provided. /mikal/ ASAH TONG MS, OTR/L OCCUPATIONAL THERAPIST Signed: 06/25/2022 15:58 Jun 25, 2022 03:58 NURSING INPATIENT NOTE: JOSE ALBERTO OSCAR [facility] TITLE: SARAH NURSING PROGRESS NOTE STANDARD TITLE: NURSING INPATIENT NOTE DATE OF NOTE: JUN 25, 2022@03:58 ENTRY DATE: JUN 25, 2022@04:00:05 AUTHOR: JOSE ALBERTO OSCAR EXP COSIGNER: URGENCY: STATUS: COMPLETED SARAH NURSING PROGRESS NOTE Has ADDENDA Nursing Shift Note Nursing care provided from 2330 Highlights from shift: slept fair overnight, aspen collar on. Neuros u nchanged. Upper strength graps 4/5. Castro intact. SKIN REINSPECTION/REASSESSMENT SKIN INSPECTION: Skin Color: Usual for ethnicity Skin Temperature: Warm Skin Moisture: Normal Skin Turgor: Elastic (normal/immediate) INTERVENTIONS: No change in previous interventions as listed b elow PRESSURE ULCER-EDUCATION [C] 06/25/2022 Educate Importance Of Changing Posit ion PRESSURE ULCER-MOISTURE [C] 06/25/2022 Instruct Pt/Family To Request Assist ance Maintain Clean Dry Skin PRESSURE ULCER-NUTRITION [C] 06/25/2022 Pressure Ulcer Nutrition-Other nutrition consult PRESSURE ULCER-PRESSURE REDUCING [C] 06/25/2022 Frequent Position Changes PRESSURE ULCER-REMOBILIZE [C] 06/25/2022 Encourage Activity As Tolerated RISK FACTORS THAT INCREASE RISK FOR DEVELOPING PRESSURE INJURIES The patient/resident does not have any addition al risk factors. SKIN INTEGRITY: Intact Skin Interventions performed this shift: Patient turned [id number] or as appropriate while in bed. Patient's heels elevated with pressure relief b oots or pillows under calves. /mikal/ JOSE ALBERTO OSCAR LPN LICENSED PRACTICAL NURSE Signed: 06/25/2022 07:40 06/25/2022 ADDENDUM STATUS: COMPLETED Cared for pt 06/25 [id number]. Doing well d uring this time. Pt is having pain but it is relatively well-controlled. His ma in complaint is wanting the padding on his cervical collar changed out but his daughter has the extra padding. He has the castro catheter in place. It is patent, clear yellow urine. Last BM was 4+ days ago. Pt received scheduled miralax this mor page as ordered. He transfers with assist of one. Has his cervical collar on. Continue plan of care. /abbie MERCADO RN REGISTERED NURSE Signed: 06/25/2022 09:37 06/25/2022 ADDENDUM STATUS: COMPLETED Correction to addendum: Cared for pt 06/25 [id number] 00. /abbie MERCADO RN REGISTERED NURSE Signed: 06/25/2022 09:37 Jun 25, 2022 02:40 NURSING NOTE: YOU MERCADO [facility] TITLE: [facility] SKIN INSPECTION/ASSESSMENT STANDARD TITLE: NURSING NOTE DATE OF NOTE: JUN 25, 2022@02:40 ENTRY DATE: JUN 25, 2022@02:41:12 AUTHOR: YOU MERCADO EXP COSIGNER: URGENCY: STATUS: COMPLETED INITIAL SKIN INSPECTION/ASSESSMENT SKIN INSPECTION: Skin Color: Usual for ethnicity Skin Temperature: Warm Skin Moisture: Normal Skin Turgor: Elastic (normal/immediate) Luther Skin Assessment: The patient's Luther Scale Score is 15. The pat ient is at mild risk for development of pressure ulcer/injury. Sensory perception -- ability to respond meanin gfully to pressure-related discomfort Very limited. Moisture -- degree to which skin is exposed to moisture Occasionally moist. Activity -- ability to change and control body position Walks occasionally. Mobility -- ability to change and control body position Slightly limited. Nutrition -- usual food intake patterns Probably inadequate. Friction and shear Potential problem. Dietitian consult initiated INTERVENTIONS: New or changed pressure ulcer/injury interventi ons or medical condition. Education: Teach patient/caregiver importance of changing position frequently for pressure ulcer/injury prevention. Pressure-Redistribution measures: Encourage small, frequent position changes Individualized repositioning while out of bed t o chair/wheelchair Maximize mobilization: Encourage activity as tolerated Manage moisture: Instruct patient/resident/caregiver to request assistance as needed Maintain clean and dry skin Manage nutrition: Other: nutrition consult RISK FACTORS THAT INCREASE RISK FOR DEVELOPING PRESSURE INJURIES: The patient/resident has the following: Neuropathy SKIN INTEGRITY: Intact /abbie MERCADO RN REGISTERED NURSE Signed: 06/25/2022 02:43 Jun 25, 2022 02:28 NURSING ADMISSION EVALUATION NOTE: SHAD MERCADO [facility] AM LOCAL TITLE: [facility] ACUTE INPATIENT NSG ADMISSIO N SCREEN STANDARD TITLE: NURSING ADMISSION EVALUATION NOT E DATE OF NOTE: JUN 25, 2022@02:28 ENTRY DATE: JUN 25, 2022@02:28:40 AUTHOR: YOU MERCADO COSIGNER: URGENCY: STATUS: COMPLETED ALLERGY/ADVERSE DRUG REACTION (ADR) REVIEW (MRT 5) FACILITY ALLERGY/ADR -------- No Remote Allergy/ADR Data available for this [facility] Allergy/Adverse Drug Reaction Review to be condu cted by: Nurse Results of Allergy/ADR Review: Allergy/Adverse Drug Reaction list confirmed MEDICATION REVIEW (MRR1) Did patient bring medication(s) from home? No Medication Review to be conducted by Pharmacist Medication Review to be conducted by Provider GENERAL INFORMATION Admission information given by: Patient Preferred Language for Discussing Healthcare: Luxembourgish Preferred mode of communication: Verbal Items at bedside: Glasses/contacts: glasses Other: wallet, flip phone, clothes, shoes INFECTIOUS DISEASE RISK SCREEN Travel Screen: Have you traveled within the [facility] with in the last 21 days? No Have you traveled outside the [facility] wit hin the last 21 days? No Within the last 14 days, have you had: No known exposure Other Exposure to Infectious Disease: No known exposure Patient reported the following symptoms: No Symptoms Present History of Multiple Drug Resistant Organism (MD RO): No NUTRITION SCREENING Malnutrition Screening Measurement DT WEIGHT LB(KG)[BMI] 06/24/2022 22:38 116.0(52.62)[21] 05/15/2022 12:50 123.9(56.20)[23] 04/12/2022 08:13 122.1(55.38)[22] 04/10/2022 10:58 120.9(54.84)[22] 03/05/2022 12:54 124(56.25)[23] 01/11/2022 09:50 123.8(56.15)[24] Lost weight recently without trying: Yes Amount weight lost: 1-5 kg (2-11 lbs) (1 point) Eating poorly due to decreased appetite: No (0 points) Total Score: 1 Additional Nutrition Screening ==== ======== Patient requiring tube feedings/TPN/PPN? No Do you have any food intolerances, special dieta ry needs, ethnic, cultural or anglican preferences affecting dietary needs? No Nutrition Consult ordered. In the past 3 months, did you ever run o ut of food and were not able to access more food or money to buy more food? No RISK SCREENINGS Alcohol Screen: Screen to be completed by: Nurse SCREEN FOR ALCOHOL (AUDIT-C) An alcohol screening test (AUDIT-C) was positiv e (score=11). 1. How often did you have a drink containing al cohol in the past year? Four or more times a week 2. How many drinks containing alcohol did you h ave on a typical day when you were drinking in the past year? Seven to nine drinks 3. How often did you have six or more drinks on one occasion in the past year? Daily or almost daily Complete alcohol education/intervention: Now Patient's AUDIT-C score was greater than or equ al to 5; brief alcohol intervention is indicated. Shared concern that the patient may be drinking at unhealthy levels known to increase his/her risk of alcoho l related health problems. Specifically the following were reviewed: High blood pressure, heart disease, liver disea se, seizures, injury, medication interactions, depression, an xiety, insomnia, bleeding from the stomach, stroke, dementia, ca ncers Advised/informed patient to abstain from drinki ng alcohol due to contraindications. Patient should abstain due to: Medical condition Consult ordered. Have you consumed alcohol within the last 72 ho urs? Yes: Alcohol Use History: Volume/Quantity: 2 beers, few shots Date/Time of last use: 06/22/22 Do you have a history of alcohol withdrawal sym ptoms? No Do you have a history of Delirium Tremens (DTs) ? No Do you have a history of seizures related to wi thdrawal? No Tobacco or Nicotine Use: Never - tobacco user Substance Use Assessment: Have you used any recreational drugs or narcoti cs in the last 72 hours? Yes: Cannabinoids RISK OF WANDERING History of wandering or elopement: No Patient expressing a desire/plan to leave immed iately: No SUICIDE SCREEN The [place] Suicide Severity Rating Scale (C-SSRS) has been completed within the past 24 hours Result of C-SSRS screener done today was NEGATI VE. EXPOSURE TO VIOLENCE AND ABUSE PRE-SCREEN Are you worried for your safety, that you will be hurt or harmed? No Has anyone tried to force you to sign papers or use your money against your will? No POST TRAUMATIC STRESS/ SEXUAL TRAUMA CARE CONSIDERATIONS To minimize a startle response, what is your preference on how best to awaken you? No preference ADVANCE DIRECTIVE Notification of Rights Related to Advance Direc tives: Written notification provided. The patient wishes to receive information about or assistance with Advance Care Planning and/or Advance Directive: No SPIRITUAL ASSESSMENT Are there anglican practices or spiritual conc erns you want the mechanic marine engine, your provider, and other health care team membe rs to know? Yes Explain: would like to see mechanic marine engine, takes communion Residency Director consult ordered. ANTICIPATED DISCHARGE NEEDS Where do you live? Housing owned/rented by Do you have a legal guardian/conservator? No Method of transportation: Private Vehicle EDUCATIONAL NEEDS/LEARNING STYLE Barriers to learning: None evident Patient learning style preferences: None VISITOR INFORMATION Will you have a primary support person while in the hospital? No Patient's Visitor Restriction preferences: No Privacy Review: NOWAK FALL SCALE & TIPS PROGRAM [place] Fall Scale: The [place] Fall scale was performed and score wa s 75. This is indicative of high risk for falls. History of falling in past 3 months? Yes Secondary diagnosis: Yes Ambulatory aid: Crutches/cane(s)/walker Intravenous therapy/Heparin lock: Yes Gait/Transferring: Normal/bed rest/immobile Mental Status: Oriented to own ability/knows own limitations Fall Tailoring Interventions for Patient Safety (TIPS) Fall TIPS initiated with patient: Yes ASPIRATION RISK ASSESSMENT AND SWALLOW SCREEN None /mikal/ YOU MERCADO RN REGISTERED NURSE Signed: 06/25/2022 02:38
--- OUTSIDE RECORDS SUMMARY | 2022-06-25 19:38 | XMS_ITS | Encounter Summary ---
:1950 Author Organization Department [facility] Address [address] [place] [address] Support Name Relationship Address Phone MADELIN MANTILLA Unavailable [phone] [place] [address] MADELIN MANTILLA Unavailable [phone] [place] [address] DHAVAL MANTILLA Unavailable [address] [place] [address] Insurance Providers: All historical and current Section [...] MEDICARE MEDICARE PART Jul 18, PART B [id number] ANNALEE BRYANIENT (WNR) (M) B 2014A [phone] ,REGI MEDICARE MEDICARE PART Apr 17, PART A [id number] [phone] ANNALEE BRYANIENT (WNR) (M) A [phone] ,REGI Selected Encounter This section includes the information on record at MD for the Encounter. Date/Time Encounter Type Encounter Description Reason Provider Source Jun 21, 2022 11:27 Outpatient Encounter TELEPHONE TRIAGE AM IHE Encounter Template Text not used by MD Plan of Treatment: Future Appointments (+ 6 months) and Future Tests (+/- 45 days) The Plan of Treatment section includes future care activities for the patient from all MD treatmentfacilities. This section includes future appointments and [...] 2022 05:53 PM AMBULATORY - MEDICINE [facility] Jul 12, 2022 09:20 AM AMBULATORY - SURGERY [facility] S Jul 19, 2022 08:00 AM AMBULATORY - MEDICINE [facility] CS Jul 19, 2022 09:00 AM AMBULATORY - MEDICINE [facility] Nov 20, 2022 10:30 AM AMBULATORY - MEDICINE [facility] Nov 20, 2022 11:00 AM AMBULATORY - MEDICINE [facility] Nov 20, 2022 11:30 AM AMBULATORY - MEDICINE [facility] Active, Pending, and Scheduled Orders [...] The data comes from all MD treatment [facility]. Test Date/Time Test Type Test Details Facility Name May 15, 2022 12:00 Laboratory - COVID-19 AND FLU/RSV DIAG [facility] AM Chemistry Order PANEL(CEPHEID) NASOPHARYNGEAL SWAB STAT WC ONCE Jun 24, 2022 06:55 Laboratory - EXTRA BLUE TUBE PLASMA WC [facility] PM Chemistry Order Jun 24, 2022 06:55 Laboratory - EXTRA GOLD GEL TUBE SERUM [facility] PM Chemistry Order WC Jun 24, 2022 06:55 Laboratory - EXTRA PURPLE TUBE BLOOD [facility] PM Chemistry Order WC Jun 24, 2022 06:55 Laboratory - EXTRA MINT TUBE PLASMA WC [facility] PM Chemistry Order Jun 25, 2022 03:59 Consult Order PROSTHETICS REQUEST Cons [facility] PM Literature Teacher's Choice Jul 10, 2022 12:00 Laboratory - RHEUMATOLOGY CHEM PANEL [facility] AM Chemistry Order PLASMA SP ONCE Jul 10, 2022 12:00 Laboratory - RHEUMATOLOGY HEME PANEL [facility] AM Chemistry Order BLOOD SP ONCE Lab [...] Range Comment Jun 24, 2022 09:29 PM [facility] URINALYSIS Specim en Type: URINE No comment enter ed. Ordering Provid er: JAYDE MENDOZA Report Released Date/Time: Jun 24, 2022 06:55 PM Reporting Lab: [facility] [address] [facility] [address] Performing Lab: [facility] [address] [facility] [address] URINE COLOR YELLOW SPECIFIC GRAVITY 1.039 H [...] 25 NEGATIVE Jun 24, 2022 08:24 PM [facility] AST/SGOT Specim en Type: PLASMA No comment enter ed. Ordering Provid er: JAYDE MENDOZA Report Released Date/Time: Jun 24, 2022 08:09 PM Reporting Lab: [facility] [address] [facility] [address] Performing Lab: [facility] [address] [facility] [address] AST/SGOT 19 <34 Jun 24, 2022 08:24 PM [facility] POTASSIUM Specim en Type: PLASMA No comment enter ed. Ordering Provid er: JAYDE MENDOZA Report Released Date/Time: Jun 24, 2022 08:09 PM Reporting Lab: [facility] [address] [facility] [address] Performing Lab: [facility] [address] [facility] [address] POTASSIUM 4.9 3.5-5.1 Jun 24, 2022 08:24 PM [facility] PROTEIN,TOTAL Specim en Type: PLASMA No comment enter ed. Ordering Provid er: JAYDE MENDOZA Report Released Date/Time: Jun 24, 2022 08:09 PM Reporting Lab: [facility] [address] [facility] [address] Performing Lab: [facility] [address] [facility] [address] PROTEIN,TOTAL 6.8 6.0-8.3 Jun 24, 2022 07:40 [facility] PROTHROMBIN TIME/INR Spec imen Type: PLASMA PM No comment enter ed. Ordering Provid er: JAYDE MENDOZA Report Released Date/Time: Jun 24, 2022 06:55 PM Reporting Lab: [facility] [address] Performing Lab: [facility] [address] .INR 1.1 0.8-1.1 .PT 12.1 9.4-12.5 Jun 24, 2022 07:32 [facility] COVID-19 DIAGNOSTIC Speci men Type: NASOPHARYNGEAL PM PANEL (CEPHEID) Comment: Cepheyanira d GeneXpert (618) Ordering Provid er: JAYDE MENDOZA Report Released Date/Time: Jun 24, 2022 06:55 PM Reporting Lab: [facility] [address] Performing Lab: [facility] [address] COVID-19 (CEPHEID) Not Detected Not Dete cted Jun 24, 2022 [facility] COMPREHENSIVE METABOLIC Spec imen Type: PLASMA 07:29 PM PANEL+MG Comment: Cancel lation reported to: Rajni Giraldo RN on 06/24/22@2004 by [place]. Test result cancelled due to hemolysis interference in sample. Ordering Provid er: JAYDE MENDOZA Report Released Date/Time: Jun 24, 2022 06:55 PM Reporting Lab: [facility] ONE [facility] [address] Performing Lab: [facility] [address] CREATININE 1.3 H 0.7-1.2 UREA NITROGEN 19 [...] L >60 Jun 24, 2022 07:29 PM [facility] CBC & DIFF Specim en Type: BLOOD Comment: Clumpe d Platelets. Invitro artefact. No clinical significance. Platelet count may be higher than stated value. Plt count = 214 K-cmm Manual Differential Performed Ordering Provid er: JAYDE MENDOZA Report Released Date/Time: Jun 24, 2022 06:55 PM Reporting Lab: [facility] [address] [facility] [address] Performing Lab: [facility] [address] WBC 9.67 4.0-11.0 RBC 3.36 L 4.6-6.2 [...] 2022 01:30 PM VA-TOBACCO FORMER USER [facility] Tobacco Use History This section includes a history of the smoking, or tobacco- related health factors, that were collected on or before the date of the Encounter. The data comes from the MD facility where the Encounter took place. Date/Time Smoking Status/Tobacco Use Comment [facility] Mar 05, 2022 01:30 PM VA-TOBACCO QUIT 1 TO < 5 YRS [facility] Jun 01, 2021 02:00 PM VA-TOBACCO NEVER USED [facility] Dec 31, 2019 10:54 AM VA-TOBACCO FORMER USER [facility] Dec 31, 2019 10:54 AM VA-TOBACCO QUIT < 1 YEAR M [facility] March 23, 2019 09:53 AM VA-TOBACCO FORMER USER [facility] March 23, 2019 09:53 AM VA-TOBACCO QUIT < 1 YEAR M [facility] Jun 10, 2018 10:00 AM CURRENT TOBACCO USER [facility] May 10, 2018 07:27 PM INPT TOBACCO COUNSELING [facility] May 10, 2018 07:27 PM INPT TOBACCO USER [facility] Aug 29, 2017 09:55 AM FORMER TOBACCO USE <1Y [facility] May 26, 2017 10:51 PM [facility]SEL[facility] May 26, 2017 10:51 PM INPT TOBACCO USER [facility] May 03, 2017 09:34 PM [facility] May 03, 2017 09:34 PM INPT TOBACCO USER [facility] Sep 18, 2016 01:36 PM FORMER TOBACCO USE <1Y [facility] Aug 10, 2016 03:54 PM INPT TOBACCO USE - PT REFUSED [facility] Aug 01, 2016 06:48 PM INPT [facility]BACCO [facility]SEL[facility] Aug 01, 2016 06:48 PM INPT TOBACCO USER [facility] Feb 08, 2015 09:57 AM CURRENT [facility]AC[facility]ER [facility] Nov 29, 2013 10:37 AM CURRENT [facility]ACCO [facility] Nov 26, 2013 11:09 AM PATIENT IS TOBACCO USER [facility] Nov 27, 2012 12:12 PM [facility] Dec 27, 2011 09:44 AM CURRENT [facility]AC[facility] Jan 22, 2011 02:38 PM CURRENT [facility]AC[facility] Mar 13, 2010 12:48 PM CURRENT TOBACCO USER [facility] Advance Directives: All [...] Encounter. Date/Time Encounter Note(s) Provider Source Jun 21, 2022 11:27 AM REPORT OF CONTACT: EITAN HOLLEY [facility] LOCAL TITLE: PATIENT CONTACT NOTE STANDARD TITLE: REPORT OF CONTACT DATE OF NOTE: JUN 21, 2022@11:27 ENTRY DATE: JUN 21, 2022@11:27:48 AUTHOR: EITAN HOLLEY EXP COSIGNER: URGENCY: STATUS: COMPLETED PATIENT CONTACT NOTE Has ADDENDA Patient contact Name of Aurora: REGI MANTILLA Name/Relationship of Contact if other than Veter an: Date & Time of Contact: Jun@11:27 Type of Contact: Reason for Contact: Aurora's daughter in law, Annamariajuanitoed stating that the is being discharged for [facility] today but is not capable of taking care of himself and would like a call back from PACT Team to have the admitted the MD. Please contact the Annamaria at the [facility] er listed above. /mikal/ EITAN ARTIS 23 [facility] MSA Signed: 06/21/2022 11:32 Receipt Acknowledged By: * AWAITING SIGNATURE * MARYELLEN LEON 06/21/2022 14:16 /mikal/ STUART BERNSTEIN,RN REGISTERED NURSE for HERI BRAUN 06/21/2022 ADDENDUM STATUS: COMPLETED I spoke to Annamaria informing MD doesn't do dir ect admits and really if d/c from [place] they should be arranging placement. If v et not placed in TCU they can go to MD ED (w/ d/c summary) and see if he can b e admitted here; not guaranteeing that he may be admitted. /mikal/ STUART BERNSTEIN RN REGISTERED NURSE Signed: 06/21/2022 14:16
--- OUTSIDE RECORDS SUMMARY | 2022-06-25 19:38 | XMS_ITS ---
DAILY HOSPITALIZATION DATA [facility] Encounter Summary Created on:June 25, 2022 Patient:REGI MANTILLA Sex:Male :1950 Author Organization [facility] Address [address] [place] [address] Support Name Relationship Address Phone MADELIN MANTILLA Unavailable [phone] [place] [address] MADELIN MANTILLA Unavailable [phone] [place] [address] DHAVAL MANTILLA Unavailable [address] [place] [address] Insurance Providers: All historical and current Section [...] MEDICARE MEDICARE PART Jul 18, PART B [id number] 800 ANNALEE BUSTILLO (WNR) (M) B 2014A [phone] ,REGI MEDICARE MEDICARE PART Apr 17, PART A [id number] 800 ANNALEE BRYANIENT (WNR) (M) A [phone] ,REGI Selected Encounter This section includes the information on record at AR for the Encounter. Date/Time Encounter Type Encounter Description Reason Provider Source Jun 25, 2022 02:28 Inpatient Visit DAILY HOSPITALIZATION DATA AM E Encounter Template Text not used by AR Plan of Treatment: Future Appointments (+ 6 months) and Future Tests (+/- 45 days) The Plan of Treatment section includes future care activities for the patient from all AR treatmentfacilities. This section includes future appointments and future orders which are active, pending orscheduled.Future Appointments This section includes appointments that were scheduled to occur 6 months from the date of the Encounter, up to a maximum of 20 appointments. The data comes from all VA treatment facilities. Appointment Date/Time Appointment Type Appointment Facili ty Name Jul 12, 2022 09:20 AM AMBULATORY - SURGERY [facility] S Jul 19, 2022 08:00 AM AMBULATORY - MEDICINE [facility] CS Jul 19, 2022 09:00 AM AMBULATORY - MEDICINE [facility] Nov 20, 2022 10:30 AM AMBULATORY - MEDICINE [facility] Nov 20, 2022 11:00 AM AMBULATORY - MEDICINE [facility] Nov 20, 2022 11:30 AM AMBULATORY - MEDICINE [facility] [...] the Encounter. The data comes from all [facility] hospital. Test Date/Time Test Type Test Details Facility Name May 15, 2022 12:00 Laboratory - COVID-19 AND FLU/RSV DIAG [facility] AM Chemistry Order PANEL(CEPHEID) NASOPHARYNGEAL SWAB STAT WC ONCE Jun 24, 2022 06:55 Laboratory - EXTRA BLUE TUBE PLASMA WC [facility] PM Chemistry Order Jun 24, 2022 06:55 Laboratory - EXTRA GOLD GEL TUBE SERUM [facility] PM Chemistry Order Jun 24, 2022 06:55 Laboratory - EXTRA PURPLE TUBE BLOOD [facility] PM Chemistry Order Jun 24, 2022 06:55 Laboratory - EXTRA MINT TUBE PLASMA WC [facility] PM Chemistry Order Jun 25, 2022 03:59 Consult Order [facility]HETICS REQUEST [facility] Filler And Trimmer's Choice Jul 10, 2022 12:00 Laboratory - RHEUMATOLOGY CHEM PANEL [facility] AM Chemistry Order PLASMA SP ONCE Jul 10, 2022 12:00 Laboratory - RHEUMATOLOGY HEME PANEL [facility] AM Chemistry Order BLOOD SP ONCE Lab Results: +/- 30 days of the encounter This section includes the Chemistry and Hematology Lab Results on record with AR for the patient. Radiology Reports and Pathology Reports are provided separately, in subsequent sections.Lab Results This section contains the Chemistry/Hematology Results that were resulted 30 days before or 30 daysafter the date of the Encounter. Date/Time Source Result Type Result - Unit Interpretation Reference Range Comment Jun 24, 2022 09:[address] [facility] URINALYSIS Specim en Type: URINE No comment enter ed. Ordering Provid er: JAYDE MENDOZA Report Released Date/Time: Jun 24, 2022 06:55 PM Reporting Lab: [facility] [address] [facility] [address] Performing Lab: [facility] [address] [facility] [address] URINE COLOR YELLOW SPECIFIC GRAVITY 1.039 H [...] 25 NEGATIVE Jun 24, 2022 08:[address] [facility] AST/SGOT Specim en Type: PLASMA No comment enter ed. Ordering Provid er: JAYDE MENDOZA Report Released Date/Time: Jun 24, 2022 08:09 PM Reporting Lab: [facility] [address] [facility] [address] Performing Lab: [facility] [address] [facility] [address] AST/SGOT 19 <34 Jun 24, 2022 08:[address] [facility] POTASSIUM Specim en Type: PLASMA No comment enter ed. Ordering Provid er: JAYDE MENDOZA Report Released Date/Time: Jun 24, 2022 08:09 PM Reporting Lab: [facility] [address] [facility] [address] Performing Lab: [facility] [address] [facility] [address] POTASSIUM 4.9 3.5-5.1 Jun 24, 2022 08:[address] [facility] PROTEIN,TOTAL Specim en Type: PLASMA No comment enter ed. Ordering Provid er: JAYDE MENDOZA Report Released Date/Time: Jun 24, 2022 08:09 PM Reporting Lab: [facility] [address] [facility] [address] Performing Lab: [facility] [address] [facility] [address] PROTEIN,TOTAL 6.8 6.0-8.3 Jun 24, 2022 07:40 [facility] PROTHROMBIN TIME/INR Spec imen Type: PLASMA PM No comment enter ed. Ordering Provid er: JAYDE MENDOZA Report Released Date/Time: Jun 24, 2022 06:55 PM Reporting Lab: [facility] [address] Performing Lab: [facility] [address] .INR 1.1 0.8-1.1 .PT 12.1 9.4-12.5 Jun 24, 2022 07:32 [facility] COVID-19 DIAGNOSTIC Speci men Type: NASOPHARYNGEAL PM PANEL (CEPHEID) Comment: Cephei d GeneXpert (618) Ordering Provid er: JAYDE MENDOZA Report Released Date/Time: Jun 24, 2022 06:55 PM Reporting Lab: [facility] [address] Performing Lab: [facility] [address] COVID-19 (CEPHEID) Not Detected Not Dete cted Jun 24, 2022 07:[address] [facility] CBC & DIFF Specim en Type: BLOOD Comment: Clumpe d Platelets. Invitro artefact. No clinical significance. Platelet count may be higher than stated value. Plt count = 214 K-cmm Manual Differential Performed Ordering Provid er: JAYDE MENDOZA Report Released Date/Time: Jun 24, 2022 06:55 PM Reporting Lab: [facility] [address] Performing Lab: [facility] [address] WBC 9.67 4.0-11.0 RBC 3.36 L 4.6-6.2 [...] canc .RBC MORPHOLOGY PRESENT Jun 24, 2022 [facility] COMPREHENSIVE METABOLIC Spec imen Type: PLASMA 07:29 PM PANEL+MG Comment: Cancel lation reported to: Rajni Giraldo RN on 06/24/22@2004 by [place]. Test result cancelled due to hemolysis interference in sample. Ordering Provid er: JAYDE MENDOZA Report Released Date/Time: Jun 24, 2022 06:55 PM Reporting Lab: [facility] [address] [facility] [address] [facility] [address] Performing Lab: [facility] [address] CREATININE 1.3 H 0.7-1.2 UREA NITROGEN 19 8-26 GLUCOSE 111 H 74-100 SODIUM 133 L 136-145 POTASSIUM canc 3.5-5.1 CHLORIDE 103 98-107 CO2 22 22-29 CALCIUM 9.4 8.4-10.2 PROTEIN,TOTAL canc 6.0-8.3 ALBUMIN 3.9 3.5-5.2 BILIRUBIN, TOTAL 0.2 0.2-1.2 MAGNESIUM 2.3 1.6-2.6 ANION GAP 8 5-15 ALKALINE PHOSPHATASE 56 40-150 ALT/SGPT 20 <55 AST/SGOT canc <34 CREAT EGFR(CKD-EPI) 58 L >60 Vital Signs: All taken on the encounter date This section contains inpatient and outpatient Vital Signs collected on the date of the Encounter. Date/Time Temperature Pulse Blood Respiratory SP02 Pain Height Weight Marcus dy Source Pressure Rate Mass Index Jun 25, 98.0 F 59 103/65 19 /min 91 % 8 [place] 2021 05:23 /min mm[Hg] [facility] Jun 25, 98.3 F 58 110/70 18 /min 93 % 8 [place] 2021 04:41 /min mm[Hg] [facility] Jun 25, 5 [place] 2021 08:23 [facility] AM [facility] Jun 25, 99.4 F 73 115/71 16 /min 89 % [place] 2021 08:10 /min mm[Hg] [facility] Jun 25, [place] 2021 05:57 [facility] AM [facility] Social History: Smoking Status (Most current) and Tobacco Use (All prior to encounter date) This section includes the most current, and the historical, smoking and tobacco-related health factors from the AR facility where the Encounter took place.Current Smoking Status This section includes the most current smoking, or tobacco-related health factor, from the AR facility where the Encounter took place. Date/Time Current Smoking Status Comment Facility Mar 05, 2022 01:30 PM VA-TOBACCO FORMER USER [facility] Tobacco Use History This section includes a history of the smoking, or tobacco- related health factors, that were collected on or before the date of the Encounter. The data comes from the AR facility where the Encounter took place. Date/Time Smoking Status/Tobacco Use Comment Facil ity Mar 05, 2022 01:30 PM VA-TOBACCO QUIT 1 TO < [address] [facility] Jun 01, 2021 02:00 PM VA-TOBACCO NEVER USED [facility] Dec 31, 2019 10:54 AM VA-TOBACCO FORMER USER [facility] Dec 31, 2019 10:54 AM VA-TOBACCO QUIT < 1 YEAR M [facility] March 23, 2019 09:53 AM VA-TOBACCO FORMER USER [facility] March 23, 2019 09:53 AM VA-TOBACCO QUIT < 1 YEAR M [facility] Jun 10, 2018 10:00 AM CURRENT TOBACCO USER [facility] May 10, 2018 07:27 PM [facility] [place] [facility] May 10, 2018 07:27 PM INPT TOBACCO USER [facility] Aug 29, 2017 09:55 AM FORMER TOBACCO USE <1Y [facility] May 26, 2017 10:51 PM [facility] May 26, 2017 10:51 PM [facility] May 03, 2017 09:34 PM [facility] May 03, 2017 09:34 PM [place]PT [place]ACCO [place] [facility] Sep 18, 2016 01:36 PM FORMER TOBACCO USE <1Y [facility] Aug 10, 2016 03:54 PM INPT TOBACCO USE - PT REFUSED [facility] Aug 01, 2016 06:48 PM [facility] Aug 01, 2016 06:48 [facility] Feb 08, 2015 09:57 AM CURRENT TOBACCO USER [facility] Nov 29, 2013 10:37 AM CURRENT TOBACCO USER [facility] Nov 26, 2013 11:09 AM PATIENT IS TOBACCO USER [place] [facility] Nov 27, 2012 12:12 PM CURRENT TOBACCO USER [facility] Dec 27, 2011 09:44 AM CURRENT TOBACCO USER [facility] Jan 22, 2011 02:38 PM CURRENT TOBACCO USER [facility] Mar 13, 2010 12:48 PM [facility]AC[facility] Advance Directives: All historical and current Section Date Range: From patient's date of to the date document was created. This section includes ALL of a patient's completed or amended AR Advance and Rescinded Directives. The entries below indicate that a directive exists for the patient, but an actual copy is not included with this document. The data comes from all AR facilities. Date Advance Directives Provider Source Feb 25, 2018 ADVANCE DIRECTIVE AURORA MORALES [facility] Feb 24, 2018 ADVANCE DIRECTIVE DISCUSSION AURORA MORALES [facility] May 26, 2017 CLINICAL [address] MAGO CONTRERAS [facility] May 03, 2017 CLINICAL WARN[address] SARIAH ENGLE [facility] Aug 10, 2016 CLINICAL WARNING ISABEL BARCENAS [facility] Aug 02, 2016 CLINICAL WARNING AURORA ALMAZAN [facility]
--- OUTSIDE RECORDS SUMMARY | 2022-06-25 19:38 | XMS_ITS ---
DAILY HOSPITALIZATION DATA [facility] Encounter Summary Created on:June 25, 2022 Patient:REGI MANTILLA Sex:Male :1950 Author Organization [facility] Address [address] [place] [address] Support Name Relationship Address Phone MADELIN MANTILLA Unavailable [address] [phone] [place] [address] MADELIN MANTILLA Unavailable [address] [phone] [place] [address] DHAVAL MANTILLA Unavailable [address] [place] [address] Insurance Providers: All historical and current Section [...] MEDICARE MEDICARE PART Jul 18, PART B [id number] 800 ANNALEE BUSTILLO (WNR) (M) B 2014A [phone] ,REGI MEDICARE MEDICARE PART Apr 17, PART A [id number] 800 ANNALEE BRYANIENT (WNR) (M) A [phone] ,REGI Selected Encounter This section includes the information on record at [place] for the Encounter. Date/Time Encounter Type Encounter Description Reason Provider Source Jun 25, 2022 02:40 Inpatient Visit DAILY HOSPITALIZATION DATA AM IHE [...] 08:00 AM AMBULATORY - MEDICINE [facility] Jul 19, 2022 09:00 AM AMBULATORY - MEDICINE [facility] Nov 20, 2022 10:30 AM AMBULATORY - MEDICINE [facility] Nov 20, 2022 11:00 AM AMBULATORY - MEDICINE [facility] Nov 20, 2022 11:30 AM AMBULATORY - MEDICINE [facility] Active, Pending, and Scheduled Orders [...] - COVID-19 AND FLU/RSV DIAG [facility] AM Chemistry Order PANEL(CEPHEID) NASOPHARYNGEAL SWAB STAT WC ONCE Jun 24, 2022 06:55 Laboratory - EXTRA BLUE TUBE PLASMA WC [facility] PM Chemistry Order Jun 24, 2022 06:55 Laboratory - EXTRA GOLD GEL TUBE SERUM [facility] PM Chemistry Order Jun 24, 2022 06:55 Laboratory - EXTRA PURPLE TUBE BLOOD [facility] PM Chemistry Order Jun 24, 2022 06:55 Laboratory - EXTRA MINT TUBE PLASMA WC [facility] PM Chemistry Order Jun 25, 2022 03:59 Consult Order [facility]OST[facility]TICS [facility] Automatic Mold Sander's Choice Jul 10, 2022 12:00 Laboratory - RHEUMATOLOGY CHEM PANEL [facility] AM Chemistry Order PLASMA SP ONCE Jul 10, 2022 12:00 Laboratory - RHEUMATOLOGY HEME PANEL [facility] AM Chemistry Order BLOOD SP ONCE [...] Range Comment Jun 24, 2022 09:29 PM [facility] URINALYSIS Specim en Type: URINE No comment enter ed. Ordering Provid er: JAYDE MENDOZA Report Released Date/Time: Jun 24, 2022 06:55 PM Reporting Lab: [facility] [address] [facility] [address] Performing Lab: [facility] [address] [facility] [address] URINE COLOR YELLOW SPECIFIC GRAVITY 1.039 H [...] 25 NEGATIVE Jun 24, 2022 08:24 PM [facility] AST/SGOT Specim en Type: PLASMA No comment enter ed. Ordering Provid er: JAYDE MENDOZA Report Released Date/Time: Jun 24, 2022 08:09 PM Reporting Lab: [facility] [address] [facility] [address] Performing Lab: [facility] [address] [facility] [address] AST/SGOT 19 <34 Jun 24, 2022 08:24 PM [facility] POTASSIUM Specim en Type: PLASMA No comment enter ed. Ordering Provid er: JAYDE MENDOZA Report Released Date/Time: Jun 24, 2022 08:09 PM Reporting Lab: [facility] [address] [facility] [address] Performing Lab: [facility] [address] [facility] [address] POTASSIUM 4.9 3.5-5.1 Jun 24, 2022 08:24 PM [facility] PROTEIN,TOTAL Specim en Type: PLASMA No comment enter ed. Ordering Provid er: JAYDE MENDOZA Report Released Date/Time: Jun 24, 2022 08:09 PM Reporting Lab: [facility] [address] [facility] [address] Performing Lab: [facility] [address] [facility] [address] PROTEIN,TOTAL 6.8 6.0-8.3 Jun 24, 2022 07:40 [facility] PROTHROMBIN TIME/INR Spec imen Type: PLASMA PM No comment enter ed. Ordering Provid er: JAYDE MENDOZA Report Released Date/Time: Jun 24, 2022 06:55 PM Reporting Lab: [facility] [address] Performing Lab: [facility] [address] .INR 1.1 0.8-1.1 .PT 12.1 9.4-12.5 Jun 24, 2022 07:32 [facility] COVID-19 DIAGNOSTIC Speci men Type: NASOPHARYNGEAL PM PANEL (CEPHEID) Comment: Cephei d GeneXpert (618) Ordering Provid er: JAYDE MENDOZA Report Released Date/Time: Jun 24, 2022 06:55 PM Reporting Lab: [facility] [address] Performing Lab: [facility] [address] COVID-19 (CEPHEID) Not Detected Not Dete cted Jun 24, 2022 [facility] COMPREHENSIVE METABOLIC Spec imen Type: PLASMA 07:29 PM PANEL+MG Comment: Cancel lation reported to: Rajni Giraldo RN on 06/24/22@2004 by [place]. Test result cancelled due to hemolysis interference in sample. Ordering Provid er: JAYDE MENDOZA Report Released Date/Time: Jun 24, 2022 06:55 PM Reporting Lab: [facility] [address] Performing Lab: [facility] [address] CREATININE 1.3 H 0.7-1.2 UREA NITROGEN 19 [...] L >60 Jun 24, 2022 07:29 PM [facility] CBC & DIFF Specim en Type: BLOOD Comment: Clumpe d Platelets. Invitro artefact. No clinical significance. Platelet count may be higher than stated value. Plt count = 214 K-cmm Manual Differential Performed Ordering Provid er: JAYDE MENDOZA Report Released Date/Time: Jun 24, 2022 06:55 PM Reporting Lab: [facility] [address] Performing Lab: [facility] [address] WBC 9.67 4.0-11.0 RBC 3.36 L 4.6-6.2 [...] 2021 05:23 /min mm[Hg] [facility] Jun 25, 98.3 F 58 110/70 18 /min 93 % 8 [place] 2021 04:41 /min mm[Hg] [facility] Jun 25, 5 [place] 2021 08:23 [facility] Jun 25, 99.4 F 73 115/71 16 /min 89 % [place] 2021 08:10 /min mm[Hg] [facility] Jun 25, 6 [place] 2021 05:57 [facility] Social History: Smoking Status (Most current) [...] 01:30 PM VA-TOBACCO FORMER USER [facility] Tobacco Use History This section includes a history of the smoking, or tobacco- related health factors, that were collected on or before the date of the Encounter. The data comes from the [place] facility where the Encounter took place. Date/Time Smoking Status/Tobacco Use Comment Facil ity Mar 05, 2022 01:30 PM VA-TOBACCO QUIT 1 TO < 5 YRS [facility] Jun 01, 2021 02:00 PM VA-TOBACCO [facility] USED [facility] Dec 31, 2019 10:54 AM VA-TOBACCO FORMER USER [facility] Dec 31, 2019 10:54 AM VA-TOBACCO QUIT < 1 YEAR M [facility] March 23, 2019 09:53 AM VA-TOBACCO FORMER USER [facility] March 23, 2019 09:53 AM VA-TOBACCO QUIT < 1 YEAR M [facility] Jun 10, 2018 10:00 AM CURRENT TOBACCO USER [facility] May 10, 2018 07:27 PM [facility] [address] [facility] May 10, 2018 07:27 PM INPT TOBACCO USER [facility] Aug 29, 2017 09:55 AM FORMER TOBACCO USE <1Y [facility] May 26, 2017 10:51 PM [facility] May 26, 2017 10:51 [facility] May 03, 2017 09:34 PM [facility] May 03, 2017 09:34 PM [place] [facility] Sep 18, 2016 01:36 PM FORMER TOBACCO USE <1Y [facility] Aug 10, 2016 03:54 PM INPT TOBACCO USE - PT REFUSED [facility] Aug 01, 2016 06:48 PM [facility] Aug 01, 2016 06:48 PM [facility] Feb 08, 2015 09:57 AM CURRENT TOBACCO USER [facility] Nov 29, 2013 10:37 AM CURRENT TOBACCO USER [facility] Nov 26, 2013 11:09 AM PATIENT [facility]ACCO [facility] Nov 27, 2012 12:12 PM CURRENT TOBACCO USER [facility] Dec 27, 2011 09:44 AM CURRENT TOBACCO USER [facility] Jan 22, 2011 02:38 PM CURRENT TOBACCO USER [facility] Mar 13, 2010 12:48 PM CURRENT [facility]ACCO [facility] Advance Directives: All historical and [...] Feb 25, 2018 ADVANCE DIRECTIVE AURORA MORALES [facility] Feb 24, 2018 ADVANCE DIRECTIVE DISCUSSION AURORA MORALES [facility] May 26, 2017 CLINICAL WARNING MAGO CONTRERAS [facility] May 03, 2017 CLINICAL WARNING SARIAH ENGLE [facility] Aug 10, 2016 CLINICAL WARNING ISABEL BARCENAS [facility] Aug 02, 2016 CLINICAL WARNING AURORA ALMAZAN [facility]
--- OUTSIDE RECORDS SUMMARY | 2022-06-25 19:38 | XMS_ITS | Encounter Summary ---
:1950 Author Organization [facility] Address [address] [place] [address] Support Name Relationship Address Phone MADELIN MANTILLA Unavailable [address] [phone] [place] [address] MADELIN MANTILLA Unavailable [address] [phone] [place] [address] DHAVAL MANTILLA Unavailable [address] [place] [address] Insurance Providers: All historical and current Section Date Range: From patient's date of to the date document was created.This section includes the names of all active insurance providers for the patient. Insurance Type of Plan Start of End of Group Member Insurance Policy P elli's Provider Coverage Name Policy Policy Number ID Provider's Donovan's Relationship Coverage Coverage Telephone Name to Policy Number Donovan MEDICARE MEDICARE PART Jul 18, PART B [id number] ANNALEE BUSTILLO (WNR) (M) B 2014A [phone] ,REGI MEDICARE MEDICARE PART Apr 17, PART A [id number] 800 ANNALEE BUSTILLO (WNR) (M) A 2012A [phone] ,REGI Selected Encounter This section includes the information on record at ID for the Encounter. Date/Time Encounter Type Encounter Reason Provider Source Description Jun 24, 2022 03:47 Outpatient ADMIN [facility] PM Encounter (Spare to ShareNONCT) IHE Encounter Template Text not used by ID Plan of Treatment: Future Appointments (+ 6 [...] 20 appointments. The data comes from all [facility]. Appointment Date/Time Appointment Type Appointment Facili ty Name Jul 12, 2022 09:20 AM AMBULATORY - SURGERY [facility] Jul 19, 2022 08:00 AM AMBULATORY - MEDICINE [facility] Jul 19, 2022 09:00 AM AMBULATORY - MEDICINE [facility] Nov 20, 2022 10:30 AM AMBULATORY - MEDICINE [facility] Nov 20, 2022 11:00 AM AMBULATORY - MEDICINE [facility] Nov 20, 2022 11:30 AM AMBULATORY - MEDICINE [facility] Active, Pending, and Scheduled Orders This section includes a listing of several types of active, pending, and scheduled orders, including clinic medications orders, diagnostic test orders, procedure orders and consult orders; where the start date of the order is 45 days before the date of the Encounter or 45 days after the date of the Encounter. The data comes from all [facility]. Test Date/Time Test Type Test Details Facility Name May 15, 2022 12:00 Laboratory - COVID-19 AND FLU/RSV DIAG [facility] AM Chemistry Order PANEL(CEPHEID) NASOPHARYNGEAL SWAB STAT WC ONCE Jun 24, 2022 06:55 Laboratory - EXTRA BLUE TUBE PLASMA WC [facility] PM Chemistry Order Jun 24, 2022 06:55 Laboratory - EXTRA PURPLE TUBE BLOOD [facility] PM Chemistry Order WC Jun 24, 2022 06:55 Laboratory - EXTRA GOLD GEL TUBE SERUM [facility] PM Chemistry Order WC Jun 24, 2022 06:55 Laboratory - EXTRA MINT TUBE PLASMA WC [facility] PM Chemistry Order Jun 25, 2022 03:59 Consult Order PROSTHETICS REQUEST [facility] Mottler Operator's Choice Jul 10, 2022 12:00 Laboratory - RHEUMATOLOGY CHEM PANEL [facility] AM Chemistry Order PLASMA SP ONCE Jul 10, 2022 12:00 Laboratory - RHEUMATOLOGY HEME PANEL [facility] AM Chemistry Order BLOOD SP ONCE Lab Results: +/- 30 days of the encounter This section includes the Chemistry and Hematology Lab Results on record with ID for the patient. Radiology Reports and Pathology Reports are provided separately, in subsequent sections.Lab Results This section contains the Chemistry/Hematology Results that were resulted 30 days before or 30 daysafter the date of the Encounter. Date/Time Source Result Type Result - Unit Interpretation Reference Range Comment Jun 24, 2022 09:29 PM [facility] URINALYSIS Specim en Type: URINE No comment enter ed. Ordering Provid er: JAYDE MENDOZA Report Released Date/Time: Jun 24, 2022 06:55 PM Reporting Lab: [facility] [address] [facility] [address] Performing Lab: [facility] [address] [facility] [address] URINE COLOR YELLOW SPECIFIC GRAVITY 1.039 H [...] 25 NEGATIVE Jun 24, 2022 08:24 PM [facility] AST/SGOT Specim en Type: PLASMA No comment enter ed. Ordering Provid er: JAYDE MENDOZA Report Released Date/Time: Jun 24, 2022 08:09 PM Reporting Lab: [facility] [address] [facility] [address] Performing Lab: [facility] [address] [facility] [address] AST/SGOT 19 <34 Jun 24, 2022 08:24 PM [facility] POTASSIUM Specim en Type: PLASMA No comment enter ed. Ordering Provid er: JAYDE MENDOZA Report Released Date/Time: Jun 24, 2022 08:09 PM Reporting Lab: [facility] [address] [facility] [address] Performing Lab: [facility] [address] [facility] [address] POTASSIUM 4.9 3.5-5.1 Jun 24, 2022 08:24 PM [facility] PROTEIN,TOTAL Specim en Type: PLASMA No comment enter ed. Ordering Provid er: JAYDE MENDOZA Report Released Date/Time: Jun 24, 2022 08:09 PM Reporting Lab: [facility] [address] [facility] [address] Performing Lab: [facility] [address] [facility] [address] PROTEIN,TOTAL 6.8 6.0-8.3 Jun 24, 2022 07:40 [facility] PROTHROMBIN TIME/INR Spec imen Type: PLASMA PM No comment enter ed. Ordering Provid er: JAYDE MENDOZA Report Released Date/Time: Jun 24, 2022 06:55 PM Reporting Lab: [facility] [address] Performing Lab: [facility] [address] .INR 1.1 0.8-1.1 .PT 12.1 9.4-12.5 Jun 24, 2022 07:32 [facility] COVID-19 DIAGNOSTIC Speci men Type: NASOPHARYNGEAL PM PANEL (CEPHEID) Comment: Cephei d GeneXpert (618) Ordering Provid er: JAYDE MENDOZA Report Released Date/Time: Jun 24, 2022 06:55 PM Reporting Lab: [facility] [address] Performing Lab: [facility] [address] COVID-19 (CEPHEID) Not Detected Not Dete cted Jun 24, 2022 [facility] COMPREHENSIVE METABOLIC Spec imen Type: PLASMA 07:29 PM PANEL+MG Comment: Cancel lation reported to: Rajni Giraldo RN on 06/24/22@2004 by [place]. Test result cancelled due to hemolysis interference in sample. Ordering Provid er: JAYDE MENDOZA Report Released Date/Time: Jun 24, 2022 06:55 PM Reporting Lab: [facility] [address] [facility] [address] Performing Lab: [facility] [address] CREATININE 1.3 H 0.7-1.2 UREA NITROGEN 19 [...] L >60 Jun 24, 2022 07:29 PM [facility] CBC & DIFF Specim en Type: BLOOD Comment: Clumpe d Platelets. Invitro artefact. No clinical significance. Platelet count may be higher than stated value. Plt count = 214 K-cmm Manual Differential Performed Ordering Provid er: JAYDE MENDOZA Report Released Date/Time: Jun 24, 2022 06:55 PM Reporting Lab: [facility] [address] Performing Lab: [facility] [address] [facility] [address] WBC 9.67 4.0-11.0 RBC 3.36 L 4.6-6.2 [...] Source Pressure Rate Mass Index Jun 24 [place] 11:13 [facility] Jun 24 [place] 2021 11:12 [facility] Jun 24, 98.2 F 63 128/87 16 /min 92 % 8 62.0 in 116.0 [place] 2021 10:38 /min mm[Hg] lb [facility] Jun 24, 97.5 F 69 99/64 15 /min [place] 06:00 /min mm[Hg] [facility] Social History: Smoking Status (Most current) and Tobacco Use (All prior to encounter date) This section includes the most current, and the historical, smoking and tobacco-related health factors from the ID facility where the Encounter took place.Current Smoking Status This section includes the most current smoking, or tobacco-related health factor, from the ID facility where the Encounter took place. Date/Time Current Smoking Status Comment Facility Mar 05, 2022 01:30 PM VA-TOBACCO FORMER USER MIN [facility] Tobacco Use History This section includes a history of the smoking, or tobacco- related health factors, that were collected on or before the date of the Encounter. The data comes from the ID facility where the Encounter took place. Date/Time Smoking Status/Tobacco Use Comment Facil it Mar 05, 2022 01:30 PM VA-TOBACCO QUIT 1 TO < 5 YRS [facility] Jun 01, 2021 02:00 PM [facility] Dec 31, 2019 10:54 AM VA-TOBACCO FORMER USER [facility] Dec 31, 2019 10:54 AM VA-TOBACCO QUIT < 1 YEAR M [facility] March 23, 2019 09:53 AM VA-TOBACCO FORMER USER MIN [facility] March 23, 2019 09:53 AM VA-TOBACCO QUIT < 1 YEAR [facility] Jun 10, 2018 10:00 AM [facility] May 10, 2018 07:27 PM [facility] May 10, 2018 07:27 PM INPT TOBACCO [facility] Aug 29, 2017 09:55 AM FORMER TOBACCO USE <1Y MIN [facility] May 26, 2017 10:51 PM [facility] May 26, 2017 10:51 PM [place]ACCO [place] [facility] May 03, 2017 09:34 PM [facility] May 03, 2017 09:34 PM INPT [place]BACCO USER [place] [facility] Sep 18, 2016 01:36 PM FORMER TOBACCO USE <1Y MIN [facility] Aug 10, 2016 03:54 PM INPT TOBACCO USE - PT REFUSED [facility] Aug 01, 2016 06:48 PM [facility] Aug 01, 2016 06:48 PM INPT [place]ACCO [place] [facility] Feb 08, 2015 09:57 AM [facility] Nov 29, 2013 10:37 AM [facility] Nov 26, 2013 11:09 AM PATIENT [place] TOBACCO [place] [facility] Nov 27, 2012 12:12 PM CURRENT TOBACCO USER [facility] Dec 27, 2011 09:44 AM CURRENT TOBACCO USER [facility] Jan 22, 2011 02:38 PM CURRENT TOBACCO USER [facility] Mar 13, 2010 12:48 PM CURRENT TOBACCO USER [facility] Advance Directives: All historical and current Section Date Range: From patient's date of to the date document was created. This section includes ALL of a patient's completed or amended ID Advance and Rescinded Directives. The entries below indicate that a directive exists for the patient, but an actual copy is not included with this document. The data comes from all ID facilities. Date Advance Directives Provider Source Feb 25, 2018 ADVANCE DIRECTIVE AURORA MORLAES [facility] Feb 24, 2018 ADVANCE DIRECTIVE DISCUSSION AURORA MORALES [facility] May 26, 2017 CLINICAL WARNING MAGO CONTRERAS [facility] May 03, 2017 CLINICAL WARNING SARIAH ENGLE [facility] Aug 10, 2016 CLINICAL WARNING ISABEL BARCENAS [facility] Aug 02, 2016 CLINICAL WARNING AURORA ALMAZAN [facility] Encounter Notes: All associated encounter notes This section contains the clinical notes associated to the Encounter. Date/Time Encounter Note(s) Provider Source Jun 24, 2022 03:47 PM CRITICAL CARE UNIT NOTE: BIENVENIDO EDEN RANDY [facility] LOCAL TITLE: [facility] EMERGENCY DEPT FLOWSHEET STANDARD TITLE: CRITICAL CARE UNIT NOTE DATE OF NOTE: JUN 24, 2022@15:47 ENTRY DATE: JUN 25, 2022@01:31:44 AUTHOR: BIENVENIDO EDEN EXP COSIGNER: URGENCY: STATUS: COMPLETED This is a place donovan only. Please see VISTA Im aging to view document. /es/ BIENVENIDO SYSTEM ICU DOCUMENT IMPORT Signed: 06/25/2022 01:31
--- OUTSIDE RECORDS SUMMARY | 2022-06-25 19:38 | XMS_ITS | Encounter Summary ---
:1950 Author Organization [facility] Address [address] [place] [id number] Support Name Relationship Address Phone MADELIN MANTILLA Unavailable [address] [phone] [place] [address] MADELIN MANTILLA Unavailable [address] [phone] [place] [address] DHAVAL MANTILLA Unavailable [address] [place] [address] Insurance Providers: All historical and current Section [...] MEDICARE MEDICARE PART Jul 18, PART B [id number] ANNALEE BUSTILLO (WNR) (M) B [id number] [phone] ,[place] MEDICARE MEDICARE PART Apr 17, PART A [id number] [phone] ANNALEE BRYANIENT (WNR) (M) A [id number] [phone] ,[place] Selected Encounter This section includes the information on record at [place] for the Encounter. Date/Time Encounter Type Encounter Reason Provider Source Description Jun 24, 2022 EMERGENCY DEPT EMERGENCY DEPT ICD-10-CM JAYDE MENDOZA 05:53 PM VISIT R62.7 Adult failure to thrive with Provider Comments: Adult Failure to Thrive IHE Encounter Template Text not used by [place] Assessments - Encounter Diagnoses This section includes the primary and secondary diagnoses documented for the Encounter. Date/Time Primary/Secondary Diagnosis Name Provider Source Diagnosis Jun 24, 2022 PRIMARY Adult failure JAYDE MENDOZA [facility] 10:12 PM to [facility] Plan of Treatment: Future Appointments (+ 6 months) and Future Tests (+/- 45 days) The Plan of Treatment section includes future care activities for the patient from all [place] [facility] This section includes future appointments and future orders which are active, pending orscheduled.Future Appointments This section includes appointments that were scheduled to occur 6 months from the date of the Encounter, up to a maximum of 20 appointments. The data comes from all [facility]. Appointment Date/Time Appointment Type Appointment Facili ty Name Jul 12, 2022 09:20 AM AMBULATORY - SURGERY [facility] Jul 19, 2022 08:00 AM AMBULATORY - MEDICINE [facility] Jul 19, 2022 09:00 AM AMBULATORY - MEDICINE [facility] Nov 20, 2022 10:30 AM AMBULATORY - MEDICINE [facility] Nov 20, 2022 11:00 AM AMBULATORY - MEDICINE [facility] Nov 20, 2022 11:30 AM AMBULATORY MEDICINE [facility] Active, Pending, [...] the Encounter. The data comes from all [facility]. Test Date/Time Test Type Test Details Facility Name May 15, 2022 12:00 Laboratory - COVID-19 AND FLU/RSV DIAG [facility] AM Chemistry Order PANEL(CEPHEID) NASOPHARYNGEAL SWAB STAT ONCE Jun 24, 2022 06:55 Laboratory - EXTRA BLUE TUBE PLASMA WC [facility] PM Chemistry Order Jun 24, 2022 06:55 Laboratory - EXTRA GOLD GEL TUBE SERUM [facility] PM Chemistry Order Jun 24, 2022 06:55 Laboratory - EXTRA PURPLE TUBE BLOOD [facility] PM Chemistry Order Jun 24, 2022 06:55 Laboratory - EXTRA MINT TUBE PLASMA WC [facility] PM Chemistry Order Jun 25, 2022 03:59 Consult Order PROSTHETICS REQUEST Cons [facility] 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 Radiology Reports and Pathology [...] [facility] [address] [facility] [address] Performing Lab: [facility] [address] [facility] [id number] URINE COLOR YELLOW SPECIFIC GRAVITY 1.039 H [...] [facility] [address] [facility] [address] Performing Lab: [facility] [address] [facility] [address] AST/SGOT 19 <34 Jun 24, 2022 08:24 PM [facility] POTASSIUM Specim en Type: PLASMA No comment enter ed. Ordering Provid er: JAYDE MENDOZA Report Released Date/Time: Jun 24, 2022 08:09 PM Reporting Lab: [facility] [address] [facility] [address] Performing Lab: [facility] [address] [facility] [address] POTASSIUM 4.9 3.5-5.1 Jun 24, 2022 08:24 PM [facility] PROTEIN,TOTAL Specim en Type: PLASMA No comment enter ed. Ordering Provid er: JAYDE MENDOZA Report Released Date/Time: Jun 24, 2022 08:09 PM Reporting Lab: [facility] [address] [facility] [address] Performing Lab: [facility] [address] [facility] [address] PROTEIN,TOTAL 6.8 6.0-8.3 Jun 24, 2022 07:40 [facility] PROTHROMBIN TIME/INR Spec imen Type: PLASMA PM No comment enter ed. Ordering Provid er: JAYDE MENDOZA Report Released Date/Time: Jun 24, 2022 06:55 PM Reporting Lab: [facility] [address] Performing Lab: [facility] [address] .INR 1.1 0.8-1.1 .PT 12.1 9.4-12.5 Jun 24, 2022 07:32 [facility] COVID-19 DIAGNOSTIC Speci men Type: NASOPHARYNGEAL PM PANEL (CEPHEID) Comment: Cephei d GeneXpert (618) Ordering Provid er: JAYDE MENDOZA Report Released Date/Time: Jun 24, 2022 06:55 PM Reporting Lab: [facility] [phone] Performing Lab: [facility] [address] COVID-19 (CEPHEID) Not Detected Not Dete cted Jun 24, 2022 07:29 PM [facility] CBC & DIFF Specim en Type: BLOOD Comment: Clumpe d Platelets. Invitro artefact. No clinical significance. Platelet count may be higher than stated value. Plt count = 214 K-cmm Manual Differential Performed Ordering Provid er: JAYDE MENDOZA Report Released Date/Time: Jun 24, 2022 06:55 PM Reporting [facility] [address] Performing Lab: [facility] [address] WBC 9.67 4.0-11.0 RBC 3.36 L 4.6-6.2 [...] canc .RBC MORPHOLOGY PRESENT Jun 24, 2022 [facility] COMPREHENSIVE METABOLIC Spec imen Type: PLASMA 07:29 PM PANEL+MG Comment: Cancel lation reported to: Rajni Price RN on 06/24/22@2004 by [place]. Test result cancelled due to hemolysis interference in sample. Ordering Provid er: JAYDE MENDOZA Report Released Date/Time: Jun 24, 2022 06:55 PM Reporting Lab: [facility] [address] Performing Lab: [facility] [address] CREATININE 1.3 H 0.7-1.2 UREA NITROGEN 19 [...] Rate Mass Index Jun 24 [place] 11:13 [facility] Jun 24 [place] 2021 11:12 [facility] Jun 24, 98.2 F 63 128/87 16 /min 92 % 8 62.0 in 116.0 [place] P 2021 10:38 /min mm[Hg] lb [facility] Jun 24, 97.5 F 69 99/64 15 /min 8 [place] 06:00 /min mm[Hg] [facility] Social History: Smoking Status (Most current) and Tobacco Use (All prior to encounter date) This section includes the most current, and the historical, smoking and tobacco-related health factors from the [place] facility where the Encounter took place.Current Smoking Status This section includes the most current smoking, or tobacco-related health factor, from the [place] facility where the Encounter took place. Date/Time Current Smoking Status Comment Facility Mar 05, 2022 01:30 PM VA-TOBACCO QUIT 1 TO < 5 YRS [facility] Tobacco Use History This section includes a history of the smoking, or tobacco- related health factors, that were collected on or before the date of the Encounter. The data comes from the [place] facility where the Encounter took place. Date/Time Smoking Status/Tobacco Use Comment Facil ity Mar 05, 2022 01:30 PM VA-TOBACCO QUIT 1 TO < 5 YRS [facility] Jun 01, 2021 02:00 PM [facility] Dec 31, 2019 10:54 AM VA-TOBACCO FORMER USER [facility] Dec 31, 2019 10:54 AM VA-TOBACCO QUIT < [facility] March 23, 2019 09:53 AM VA-TOBACCO FORMER USER [facility] March 23, 2019 09:53 AM VA-TOBACCO QUIT < 1 [facility]AR [facility] Jun 10, 2018 10:00 AM CURRENT TOBACCO USER [place] [facility] May 10, 2018 07:27 PM IN[place] TOBAC[place] COUNSELING [place] [facility] May 10, 2018 07:27 PM INPT TOBACCO USER [place] [facility] Aug 29, 2017 09:55 AM FORMER TOBACCO USE <1Y [facility] May 26, 2017 10:51 PM INPT TOBAC[place] COUNSELING [place] [facility] May 26, 2017 10:51 PM INPT TOBACCO USER [place] [facility] May 03, 2017 09:34 PM INPT TOBAC[place] COUNSELING [place] [facility] May 03, 2017 09:34 PM INPT TOBACCO USER [place] [facility] Sep 18, 2016 01:36 PM FORMER TOBACCO USE <1Y [facility] Aug 10, 2016 03:54 PM INPT TOBACCO USE - PT REFUSED [facility] Aug 01, 2016 06:48 PM INPT TOBACCO COUNSELING [place] [facility] Aug 01, 2016 06:48 PM INPT TOBACCO USER GONZALES LORENZ [facility] Feb 08, 2015 09:57 AM CURRENT TOBACCO USER [place] HUMPHRIESS [facility] Nov 29, 2013 10:37 AM CURRENT TOBACCO USER [place] [facility] Nov 26, 2013 11:09 AM PATIENT IS TOBACCO USER ANAID GARCIA [facility] Nov 27, 2012 12:12 PM CURRENT TOBACCO USER [facility] KRISTELS [facility] Dec 27, 2011 09:44 AM CURRENT TOBACCO USER [place] JUAREZS [facility] Jan 22, 2011 02:38 PM CURRENT TOBACCO USER [facility] Mar 13, 2010 12:48 PM CURRENT TOBACCO USER [facility] Advance Directives: All historical and current Section Date Range: From patient's date of to the date document was created. This section includes ALL of a patient's completed or amended [place] Advance and Rescinded Directives. The entries below indicate that a directive exists for the patient, but an actual copy is not included with this document. The data comes from all [place] facilities. Date Advance Directives Provider Source Feb [...] Encounter Note(s) Provider Source Jun 24, 2022 09:54 NURSING EMERGENCY DEPT NOTE: RAJNI PRICE [facility] PM LOCAL TITLE: EMERGENCY DEPT NURSING NOTE STANDARD TITLE: NURSING EMERGENCY DEPT NOTE DATE OF NOTE: JUN 24, 2022@21:54 ENTRY DATE: JUN 24, 2022@21:55:05 AUTHOR: RAJNI PRICE EXP COSIGNER: URGENCY: STATUS: COMPLETED Admission to Inpatient from the Emergency Depar tment Personal Protective Equipment (PPE): Patient wa s in mask on arrival, patient remained masked for entire visit, RN us ed PPE during every encounter with the patient, MD/PA/ELECTRIC WELDER HELPER used PPE d uring every encounter with the patient Admission to Inpatient from the Emergency Depar tment Date/Time: Jun@21:55 Chief complaint: Placement Code status: Full Code Allergies: LISINOPRIL (Jun 01, 2021) Current Vital Signs: Temperature: 97.5 F [36.4 C] (06/24/2022 18:00) Heart Rate: 69 (06/24/2022 18:00) Respirations: 15 (06/24/2022 18:00) Blood Pressure: 99/64 (06/24/2022 18:00) O2 Sat: 94% (05/15/2022 12:50) Neurological/ Mentation/ Safety status: Alert and oriented Safety Concerns Hibbing collar secondary to recen t c spine fracture Transfers/ mobility: Needs further assessment, Other: uses gait belt for safety Genitourinary status: Otherindwelling urinary catheter IV access: Site: left FA Size: 20G Date Inserted: Jun Report called to: Melva DALY Admitted to: 2L at Jun@21:57 Transport mode: Wheelchair. Accompanied by: Miriam bolden /mikal/ RAJNI PRICE RN BAN SUNITHA VIS 23 DAYTIME TRIAGE R Signed: 06/24/2022 22:02 Jun 24, 2022 07:52 H & P NOTE: [facility] LOCAL TITLE: H&P HISTORY & PHYSICAL - MEDICINE [facility] STANDARD TITLE: H & P NOTE DATE OF NOTE: JUN 24, 2022@19:52 ENTRY DATE: JUN 24, 2022@19:52:15 AUTHOR: [facility] EXP COSIGNER: URGENCY: STATUS: COMPLETED MEDICINE HISTORY & PHYSICAL Chief Complaint: need a rehab place History of Present Illness (HPI) - 72 years old MALE admitted for: 68 year old MALE with PMH significant for CAD s/ p stent x 3 (prox LCX, distal LCX, OM2) in 07/2016, alcohol use disorder, CKD, seropositive rheumatoid arthritis and pAfib on apixaban [facility] the setting of alcohol intoxication who was discharged from [facility] in [place] on 06/24/2022 and presented to [facility] for assistance finding a TCU. Patient was discharged from [facility] today. Spent a week in [facility] for management (06/18-06/24/2022) of mechani sergio fall related injuries and symptom, found to have central cord syndrome and C5 fract ure. History provided by patient and his daughter, Elizabeth hale at bedside. Had a fall at 06/17/22 at his home. He lives with his elderly wi fe at their apartment [place]. Both him and his were drank. Marcin partida doesn't remember of the fall other than being down and head bleeding, jameson westbrook have hit head on a register. Has long history of alcohol u se disorder and continues to drink 5-6 drinks per day. Post-fall new symptoms: neck landry n, profound weakness of upper extremity, hands feeling num b, mild weakness of the lower extremity, stuterring, and urinary retention. Presented to [place] [facility] on 06/17, had imaging d one (unclear what imaging modalities he had there) and was sent home. Next day, he returned back to the ED for persistent symptoms and was transferred to [facility]. No records available in [facility] and doesn't have discharge pack age with him other than discharge meds and brief patient instructions. P er patient's daughter, he was suppose to be discharged transitional ca res for rehab as he is unsteady on his feet, can't perform ADLs at home.Family can't af alonzo the out pocket cost for TCU. He was discharged with indewelling catheter and c-collar to home. ROS: denies new fever/chills, hasn't BM for the last 3 days, has internal hemorroids, castro draining without issues, no ab dominal pain, denies n/v Emergency Department (ED) Course: Vitals Afebrile, 99/64, HR - 69 on RA Labs: reviewed CBC and CMP without significant c hanges from baseline Imaging: none Past Medical History: Active problems - Computerized Problem List is t he source for the followin. Benign essential hypertension (SNOMED CT 120 1005) 2. Hearing loss * 3. HTN - Hypertension (SNOMED CT 24371255) 4. Hyperlipidemia (SNOMED CT 80112176) 5. Alcohol abuse (SNOMED CT 98193425) 6. Cannabis abuse (SNOMED CT 62487552) 7. Pain in joint involving shoulder region - RIGHT 8. Anemia (SNOMED CT 315399857) 9. Jt Replcmnt Stat, Knee 10. Gastroesophageal reflux disease (SNOMED CT 2 44869682) 11. CAD - Coronary artery disease - [...] fibrillation 23. Long-term current use of anticoagulant 24. Drug monitoring done Family History: non-contributory Social History: 1. Tobacco - not currently smoking, Quit in 04/18 018 after his NSTEMI 2. Alcohol - 5-6 beers per day - Drugs: smoking marijuana my whole life. 3. Living Situation - Lives with a rented apartment Allergies: LISINOPRIL (Jun 01, 2021) Review of System: Negative except as stated in HPI Physical Exam: Temp: 97.5 F [36.4 C] (06/24/2022 18:00) Pulse:69 (06/24/2022 18:00) BP: 99/64 (06/24/2022 18:00) Resp: 15 (06/24/2022 18:00) Weight: 123.9 lb [56.20 kg] (05/15/2022 12:50) Pain: 8 (06/24/2022 18:00) O2 Sat: 94% (05/15/2022 12:50) BMI: 22.8 General: alert, in no distress HEENT: frontal head with healing wounds, c-francesca ar in place Cardio: irregular irregular, no murmurs Lungs: talking in full sentences, no increased WOB, CTAB Abd: soft, BS+, nontender to palpation Extrem: no LE edema : castro back with yellow colored urine Neuro: alert,oriented x3, cranial exam without focal deficits Strength - UE - 2/5 and LE - 4/5 Sensation - hypersensitivity to light touch of upper ext/hands Labs: - INR: INR - NONE FOUND - Complete Blood Count White count: WBC 9.67 (06/24/22) Hemoglobin: HGB 12.0 L (06/24/22) Hematocrit: HCT 35.9 L (06/24/22) Platelets: PLT pending (06/24/22) - Complete Metabolic Panel SODIUM 139 (05/15/22) POTASSIUM 4.7 (05/15/22) CHLORIDE 104 (05/15/22) CO2 26 (05/15/22) UREA NITROGEN 25 (05/15/22) CREATININE 1.2 (05/15/22) GLUCOSE 105 H (05/15/22) CALCIUM 9.5 (05/15/22) MAGNESIUM 1.8 (05/15/22) EGFR (06/20) 01/11/22 @ 0915 73 CREATININE EGFR (CKD-EPI) 05/15/22 @ 1057 63 AST/SGOT 28 (05/15/22) ALT/SGPT 19 (05/15/22) ALK PHOSPHATASE 55 (05/15/22) ALBUMIN 4.2 (05/15/22) BILIRUBIN, TOTAL 0.5 (05/15/22) Urinalysis: URINE COLOR____ APPEARANCE____ SPECIFIC GRAVITY____ URINE PH____ URINE BILIRUBIN____ URINE KETONES____ URINE GLUCOSE____ URINE PROTEIN____ URINE HEME____ LEUKOCYTE ESTERASE____ URINE NITRITE____ URINE BACTERIA____ URINE WBC/HPF____ URINE RBC/HPF____ Active and Recently Outpatient Medicatio ns (including [...] (PACERONE) 200MG TAB TAKE ONE TABLET ACTIVE (S) BY MOUTH EVERY DAY FOR HEART RHYTHM - TAKE WITH FOOD 4) APIXABAN 5MG TAB TAKE ONE TABLET BY MOUTH GISSELLE RY 12 ACTIVE HOURS TO PREVENT BLOOD CLOTS & STROKE. 5) ATORVASTATIN CALCIUM 80MG TAB TAKE ONE TABLET BY ACTIVE MOUTH AT BEDTIME FOR CHOLESTEROL REPLACES SIMVASTATIN 6) CARBOXYMETHYLCELLULOSE NA 0.25% OPH SOLN INST ILL 1 ACTIVE DROP IN BOTH EYES FOUR TIMES A DAY 7) CYANOCOBALAMIN 1000MCG TAB TAKE ONE TABLET BY MOUTH ACTIVE EVERY DAY 8) FOLIC ACID 1MG TAB TAKE ONE TABLET BY MOUTH E VERY DAY ACTIVE 9) ISOSORBIDE MONONITRATE 60MG SA TAB TAKE ONE-H THIERRY ACTIVE TABLET BY MOUTH EVERY DAY 10) METOPROLOL TARTRATE 50MG TAB TAKE ONE TABLET BY MOUTH ACTIVE TWICE A DAY 11) PANTOPRAZOLE NA 40MG EC TAB TAKE ONE TABLET BY MOUTH ACTIVE EVERY MORNING ONE-HALF HOUR BEFORE EATING TO DECREASE STOMACH ACID TAKE ON AN EMPTY STOMAC H, AT LEAST 30 MINUTES PRIOR TO MEAL 12) PREDNISONE 10MG TAB TAKE ONE TABLET BY MOUTH EVERY ACTIVE DAY 13) SULFASALAZINE 500MG TAB TAKE TWO TABLETS BY MOUTH ACTIVE TWICE A DAY Inactive Outpatient Medications Status 1) ADALIMUMAB 40MG/0.8ML INJ PEN KIT INJECT 40 M G UNDER DISCONTINUED THE SKIN EVERY 2 WEEKS 2) AMIODARONE HCL (PACERONE) 200MG TAB TAKE ONE TABLET DISCONTINUED BY MOUTH TWICE A DAY FOR 30 DAYS, THEN TAKE ONE (EDIT) TABLET EVERY DAY FOR HEART RHYTHM - TAKE WITH F OOD 3) APIXABAN 5MG TAB TAKE ONE TABLET BY MOUTH GISSELLE RY 12 DISCONTINUED HOURS TO PREVENT BLOOD CLOTS & STROKE. (EDIT) 4) ASPIRIN 81MG EC TAB TAKE ONE TABLET BY MOUTH EVERY DISCONTINUED DAY 5) ATORVASTATIN CALCIUM 80MG TAB TAKE ONE-HALF T ABLET BY DISCONTINUED MOUTH AT BEDTIME FOR CHOLESTEROL REPLACES (EDIT ) SIMVASTATIN 6) CHOLECALCIF 25MCG (D3-1,000UNIT) TAB TAKE ONE TABLET BY MOUTH EVERY DAY 7) COLON ELECTROLYTE LAVAGE PWD FOR SOLN TAKE 1 CONTAINER (4 LITERS) BY MOUTH DIRECTED FOR C OLON PREP *MIX ACCORDING TO PACKAGE INSTRUCTIONS. *D RINK ONE-HALF CONTAINER STARTING AT 4PM THE DAY BEFO RE EXAM. DRINK REMAINING ONE-HALF CONTAINER 6 HOUR S BEFORE EXAM. 8) CYANOCOBALAMIN 1000MCG TAB TAKE ONE TABLET BY MOUTH DISCONTINUED EVERY DAY 9) FLUTICASONE PROP 50MCG 120D NASAL INHL SPRAY 1 SPRAY IN EACH NOSTRIL TWICE A DAY NEEDED FOR RUNNY NOSE USE REGULARLY FOR RELIEF OF ALLERGIES/CONGESTION 10) FOLIC ACID 1MG TAB TAKE ONE TABLET BY MOUTH EVERY DAY DISCONTINUED 11) ISOSORBIDE MONONITRATE 60MG SA TAB TAKE ONE- HALF DISCONTINUED TABLET BY MOUTH EVERY DAY 12) ISOSORBIDE MONONITRATE 60MG SA TAB TAKE ONE TABLET BY DISCONTINUED MOUTH EVERY DAY FOR CHEST PAIN 13) LORATADINE 10MG TAB TAKE ONE TABLET BY MOUTH EVERY DAY FOR ALLERGY SYMPTOMS 14) MAGNESIUM CITRATE LIQUID TAKE [address] [facility] ONCE AT 12PM (NOON) ONE DAY BEFORE PROCEDURE FOR COL ON PREP 15) METOPROLOL TARTRATE 50MG TAB TAKE ONE TABLET BY MOUTH DISCONTINUED TWICE A DAY 16) METOPROLOL TARTRATE 50MG TAB TAKE ONE-HALF T ABLET BY DISCONTINUED MOUTH TWICE A DAY FOR HEART 17) PANTOPRAZOLE NA 40MG EC TAB TAKE ONE TABLET BY MOUTH DISCONTINUED EVERY MORNING ONE-HALF HOUR BEFORE EATING TO DECREASE STOMACH ACID TAKE ON AN EMPTY STOMAC H, AT LEAST 30 MINUTES PRIOR TO MEAL 18) PREDNISONE 10MG TAB TAKE ONE TABLET BY MOUTH EVERY DISCONTINUED DAY 19) SULFASALAZINE 500MG TAB TAKE TWO TABLETS BY MOUTH DISCONTINUED TWICE A DAY 32 Total Medications No Active Remote Medications for this patient Imaging none here - pending reports from [facility], release of information signed Assessment/Plan: 68 year old MALE with PMH significant for CAD s/ p stent x 3 (prox LCX, distal LCX, OM2) in 07/2016, alcohol use disorder, CKD, seropositive rheumatoid arthritis and pAfib on apixaban with recent mech anical fall in the setting of alcohol intoxication who was discharged from [facility] [place] on 06/24/2022 and presented to [facility] for assistance with finding TC U. #central cord syndrome and C5 fx #Mechanical fall Pending medical records from [facility]. [facility] if he had TSCI but discharge instruction mentions central cord synd narendra with c5 fracture -Follow up with OSH medical records- hospital co luis and imaging -patient OSH discharge instruction: -FU with [facility] neurosurgery follow up in 4 weeks -upright cervical xray in 4 weeks -No lifting over 10 lbs -continue to wear neck brace all the times -Qshift neuro assessment -PT/OT consulted for discharge recommmendations -Will likely need SCI team involved if TSCI is c onfirmed with OSH medical records -Pain management -schedule APAP -oxycodone 5 mg q6h prn -gabapentin 300 mg TID -lidocaine patch #Lower than baseline BP Initial ED vitals with BP 99 /54. Historically sBP ~110-130. Asymptomatic. Repeat 128/87. With TSCI, at risk for autonomic dysregu lation -CTM, repeat BP #UTI #urinary retention #indwelling castro catheter Discharge meds contains Kefl ex for 7 days course. Pt history that he has failed TOV but denies symtoms of dysuria or increased f requency. -continue Keflex 500 mg q6hr -cont with tamsulosin 0.4 mg qday #Reported Internal hemorriods Hasn't had BM for the last 3 days. Hgb not from baseline. -Bowel regimen ordered -docusate 100 mg BID -miralax scheduled chronic/stable issues # CAD (ARLYN x 3 to prox LCX, distal LCX, OM2 in - Imdur to 60 mg daily - metoprolol tart 50 mg BID #Paroxysmal A.fib/flutter With 03/2022 14-day Zio w/ 31% AT vs. AFl burden w/ average HR 140 bpm. -captain/check airman apixaban -captain/check airman amiodrone -follows with EP, last since seen in 04/2022 #CKD Admission cr 1.3. Baseline 1.2-1.4. -CTM, avoid nephrotoxic agents #Seropositive RA -captain/check airman prednisone 10 mg daily -captain/check airman sulfasalazine 1000 mg BID Fluids/Electrolytes/Nutrition (FEN): regular Deep Vein Thrombosis (DVT) Prophylaxis: apixaban Code Status: FULL Disposition: acute care pending placement Patient will be formally staffed in the AM /es/ [facility] MD RESIDENT Signed: 06/25/2022 03:40 Jun 24, 2022 06:20 PHYSICIAN EMERGENCY DEPT NOTE: JAYDE MENDOZA [facility] LOCAL TITLE: EMERGENCY DEPT NOTE STANDARD TITLE: PHYSICIAN EMERGENCY DEPT NOTE DATE OF NOTE: JUN 24, 2022@18:20 ENTRY DATE: JUN 24, 2022@18:20:37 AUTHOR: JAYDE MENDOZA EXP COSIGNER: URGENCY: STATUS: COMPLETED REGI MANTILLA is a 72 year old MALE wi th the following. chief complaint: Placement HPI: ======== Patient with past medical history of hypertensio n, alcohol abuse, cannabis abuse, coronary artery disease, chronic kidney d isease, multifocal atrial tachycardia, atrial fibrillation with ch ronic anticoagulation and hearing loss was brought to the emergency department by his d phan [facility] for placement. According to the family patient has had major di fficulties with alcohol abuse and has had multiple falls i n the past however patient fell from his bed on June 16 and hit his head on the ground and was taken to a local hospital where the patient was admitted to the hospital and was evaluated. According to the family and the discharge notes there is C-spine fractur e for which he is on cervical collar and has a recommendation for neur osurgery follow-up in the near future. According to the family patient was discharged f [facility] today and the family felt th at he should not have been discharged as there is no way he can be managed at home by his elderly wif e. The family brought the patient to our emergency department for placemen t. ROS: ==== All systems were reviewed and were negative exce pt for ones described in HPI. ACTIVE PROBLEMS: Active problem list in CPRS was reviewed. For de tails please refer to CPRS problem list. Allergies: ========= LISINOPRIL (Jun 01, 2021) Family/Social History: Not applicable to today's visit. Personal Protective Equipment (PPE): Patient wa s in mask on arrival, patient remained masked for entire visit, RN us ed PPE during every encounter with the patient, MD/PA/ELECTRIC WELDER HELPER used PPE during ever y encounter with the patient Nurse's note reviewed. PHYSICAL EXAM: BP: 99/64 (06/24/2022 18:00) P: 69 (06/2022 18:00) R: 15 (06/24/2022 18:00) T: 97.5 F [36.4 C] (06/24/2022 18:00) O2 Sat: 94% (05/15/2022 12:50) General: thin Skin: no rash, no lesions Neck: Supple. Eye: PERRLA Cardiovascular: RRR Respiratory: Lungs: clear to auscultation bilate rally, resonant throughout No respiratory distress. Abdominal: soft,NT,ND Neuro: alert and oriented, grossly non-focal, st rength 5/5 bilaterally Extremities: Negative APPEARANCE: TURBID UR COLOR: YELLOW SPECIFIC GRAVITY: 1.039 H UR BLOOD: 3+ UR BILIRUBIN: NEGATIVE UR KETONES: NEGATIVE UR GLUCOSE: NEGATIVE UR PROTEIN: 50 UR PH: 6.5 WBC/HPF: 17 H RBC/HPF: >180 H BACTERIA: NONE SEEN CA++ OXALATE CRYSTALS: FEW SQUAMOUS EPITHELIAL: NONE SEEN NITRITE, URINE: NEGATIVE LEUKOCYTE ESTERASE: 25 POTASSIUM: 4.9 PROTEIN,TOTAL: 6.8 SGOT(37C): 19 INR 1999: 1.1 PROTHROMBIN TIME (07/21): 12.1 COVID-19 CEPHEID: Not Detected GLUCOSE: 111 H UREA NITROGEN: 19 CREATININE: 1.3 H SODIUM: 133 L POTASSIUM: canc CHLORIDE: 103 CO2: 22 CALCIUM: 9.4 PROTEIN,TOTAL: canc ALBUMIN: 3.9 BILIRUBIN,TOTAL: 0.2 MAGNESIUM: 2.3 ANION GAP: 8 ALKALINE PHOSPHATASE(37C): 56 SGOT(37C): canc SGPT(37C): 20 CREATININE EGFR (CKD-EPI): 58 L WBC: 9.67 RBC: 3.36 L HGB: 12.0 L HCT: 35.9 L MCV: 106.8 H MCH: 35.7 H MCHC: 33.4 RDW: 14.0 PLT: comment MPV: canc SEGS: 70.7 LYMPHS: 16.7 MONOCYTES: 9.6 EOSINO: 1.5 META: 1.0 MYELO: 0.5 NORMOCHROMIC: YES MACROCYTOSIS: SLIGHT NEUTROPHIL, ABSOLUTE: 6.84 EOSINO, ABSOLUTE: 0.15 MONOCYTE, ALTERNATE ABS: 0.93 LYMPHS, ALTERNATE ABS: 1.61 METAMYELOCYTE, ABSOLUTE: 0.10 MYELOCYTE, ABSOLUTE: 0.05 IPF: canc RBC MORPHOLOGY: PRESENT ASSESSMENT/PLAN: Adult failure to thrive -the requirement for his care far exceeds the ab ility of his to provide. -Patient remained hemodynamically stable through out his stay in the emergency department except for slightly soft blood pressu re without symptoms. -No acute significant critical lab abnormalities . -Patient was admitted to our medicine service. /mikal/ JAYDE MENDOZA MD STAFF PHYSICIAN Signed: 06/25/2022 01:34 Receipt Acknowledged By: * AWAITING SIGNATURE * MARYELLEN LEON Jun 24, 2022 05:58 NURSING EMERGENCY DEPT TRIAGE NOTE: ROSELINE BAUER [facility] LOCAL TITLE: EMERGENCY DEPARTMENT NURSING TRI E NOTE STANDARD TITLE: NURSING EMERGENCY DEPT TRIAGE NO TE DATE OF NOTE: JUN 24, 2022@17:58 ENTRY DATE: JUN 24, 2022@17:58:51 AUTHOR: ROSELINE BAUER EXP COSIGNER: URGENCY: STATUS: COMPLETED Emergency Department/Urgent Care Center Triage Patient age:72 Sex: MALE On arrival patient was: WHEELCHAIR Patient phone number: Allergies: LISINOPRIL (Jun 01, 2021) Subjective/Chief Complaint: Placement Objective: Pt. presents to ED for transitional care placeme nt. The patient is not a fall risk. Vital Signs * Temperature 97.5 F (36.4 C) Pulse 69 Respirations 15 Blood Pressure 99/64 Pain scale recorded: 8 Pulse Oximetry 95 Room Air Emergency Severity Index (ANA) level Level 3 Current Medications: Active Outpatient Medications (including Supplie [...] (PACERONE) 200MG TAB TAKE ONE TABLET ACTIVE (S) BY MOUTH EVERY DAY FOR HEART RHYTHM - TAKE WITH FOOD 4) APIXABAN 5MG TAB TAKE ONE TABLET BY MOUTH GISSELLE RY 12 ACTIVE HOURS TO PREVENT BLOOD CLOTS & STROKE. 5) ATORVASTATIN CALCIUM 80MG TAB TAKE ONE TABLET BY ACTIVE MOUTH AT BEDTIME FOR CHOLESTEROL REPLACES SIMVASTATIN 6) CARBOXYMETHYLCELLULOSE NA 0.25% OPH SOLN INST ILL 1 ACTIVE DROP IN BOTH EYES FOUR TIMES A DAY 7) CYANOCOBALAMIN 1000MCG TAB TAKE ONE TABLET BY MOUTH ACTIVE EVERY DAY 8) FOLIC ACID 1MG TAB TAKE ONE TABLET BY MOUTH E VERY DAY ACTIVE 9) ISOSORBIDE MONONITRATE 60MG SA TAB TAKE ONE-H USP ACTIVE TABLET BY MOUTH EVERY DAY 10) METOPROLOL TARTRATE 50MG TAB TAKE ONE TABLET BY MOUTH ACTIVE TWICE A DAY 11) PANTOPRAZOLE NA 40MG EC TAB TAKE ONE TABLET BY MOUTH ACTIVE EVERY MORNING ONE-HALF HOUR BEFORE EATING TO DECREASE STOMACH ACID TAKE ON AN EMPTY STOMAC H, AT LEAST 30 MINUTES PRIOR TO MEAL 12) PREDNISONE 10MG TAB TAKE ONE TABLET BY MOUTH EVERY ACTIVE DAY 13) SULFASALAZINE 500MG TAB TAKE TWO TABLETS BY MOUTH ACTIVE TWICE A DAY Current Problems: Benign essential hypertension (SCT 92845Jnpwqwj loss (ICD-9-CM 389.9) HTN - Hypertension ([facility] [id number]) Hyperlipidemia ([facility] [id number]) Alcohol abuse ([facility] [id number]) Cannabis abuse ([facility] [id number]) Pain in joint involving shoulder region Anemia ( [facility] [id number]) Jt Replcmnt Stat, Knee (ICD-9-CM V43.65)Gastroes ophageal reflux disease (SCT 403406290) CAD - Coronary artery disease (SCT 31227Qtjgi no n-ST segment elevation myocardial infarction (SCT 859052294) Chronic kidney disease (SCT 369688064) Rib fract ure (SCT 80088971) Pain of right shoulder joint (SCT 444433Cknj landry n (SCT 09739475) Ankle pain (SCT 096992454) Rhinitis (SCT 6328815 2) Seropositive rheumatoid arthritis (SCT 2Multifoc al atrial tachycardia (SCT 97751101) Elevated liver enzymes level (SCT 600098Uvqiriuw al atrial fibrillation (SCT 888770819) Long-term current use of anticoagulant (Drug mon itoring done ([facility] [id number]) Coronavirus Disease 2019 (COVID-19) Screen The patient was asked if in the last 14 days the y have had new onset of any COVID-19 symptoms. They report the following: No symptoms Within the past 14 days, the patient reports no exposure to someone with a febrile/respiratory illness or someone with a kn own or suspected case of COVID-19 (within 6 feet for > 15 minutes). Result: Screen is negative. Result: Screen is negative. Suicide Screen: Kidder Suicide Severity Rating Scale (C-SSRS) screener 1. [...] due to responses to other questions. /mikal/ ROSELINE BAUER RN REGISTERED NURSE Signed: 06/24/2022 18:02
--- OUTSIDE RECORDS SUMMARY | 2022-06-25 19:39 | XMS_ITS | Continuity of Care Document ---
:1950 Author Organization [facility] Care Team Providers Name Role Phone [facility] Unavailable Unavailable Problems Combined list of problems from Department of Defense and [facility] Affairs facilities. It does not include entries that were removed or entered in error. Problem Status Onset Problem Date of Comments Source Date Type Resolution Acute non-ST segment Active Condition [place] elevation myocardial [facility] infarction Alcohol abuse Active Condition [place] (SNOMED CT 59687807) [facility] Anemia (SNOMED CT Active Condition [place] 872096691[place] [facility] Ankle pain Active Condition [place] [facility] Benign essential Active Condition [place] hypertension (OMED [facility] CT 2707404) CAD - Coronary Active Condition Sep 18, [place] artery disease [address] [facility] By: MARYELLEN LEON Comment: s/p stenting Cannabis abuse Active Condition [place] (SNOMED CT 11778061) [facility] Chronic kidney Active Condition [place] [facility] Drug monitoring done Active Condition [facility] Elevated liver Active Condition [place] enzymes level [facility] Gastroesophageal Active Condition [place] reflux disease [facility] S (SNOMED CT 298349636) Hand pain [place] [facility] Hearing loss * Active Condition [place] (ICD-9-CM 389.9) [facility] HTN - Hypertension Active Condition [place] (SNOMED CT 23019835) [facility] Hyperlipidemia Active Condition [place] (SNOMED CT 88823147) [facility] Jt Replcmnt Stat, Active Condition [place] Knee [facility] Long-term current Active Condition [place] use of anticoagulant 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 region (ICD-9-CM By: 719.41) MARYELLEN LEON Comment: RIGHT Pain of right Active Condition [place] shoulder joint [facility] Paroxysmal atrial Active Condition [place] fibrillation [facility] Rhinitis Active [place] [facility] Rib fracture Active Condition Dec 15, [place] [address] [facility] By: MARYELLEN LEON Comment: s/p fall 11/2018, RIGHT rib Seropositive Active Condition [place] rheumatoid arthritis [facility] Knee: arthralgia * Inactive Condition 05/04/2010 [place] (ICD-9-CM 719.46) [facility] Admit Reason: FALL active Diagnosis [place] REC DC [facility] Diagnosis: ICD-10-CM active Diagnosis [place] R62.[address] [facility] to thrivewith Provider Comments: Adult Failure to Thrive Diagnosis: ICD-10-CM active Diagnosis [place] I47.1 [facility] Supraventricular tachycardiawith Provider Comments: Multifocal atrial tachycardia (SCT 17079199) Diagnosis: ICD-10-CM active Diagnosis [place] I48.[address] [facility] atrial fibrillationwith Provider Comments: Paroxysmal atrial fibrillation (SCT 697296147) Diagnosis: ICD-10-CM active Diagnosis [place] Z13.[address] [facility] screening for cardiovascular disorderswith Provider Comments: Encounter for Screening for Cardiovascular Disorders Diagnosis: ICD-10-CM active Diagnosis [place] K64.[address] [facility] hemorrhoidswith Provider Comments: Other Hemorrhoids Diagnosis: ICD-10-CM active Diagnosis [place] Z71.[address] [facility] specified counselingwith Provider Comments: Other specified Counseling Diagnosis: ICD-10-CM active Diagnosis [place] Z79.[address] [facility] (current) use of anticoagulantswith Provider Comments: [facility] (current) use of anticoagulants Diagnosis: ICD-10-CM active Diagnosis [place] I48.92 Unspecified V A [facility] atrial flutterwith Provider Comments: Unspecified Atrial Flutter Diagnosis: ICD-10-CM active Diagnosis [place] I47.1 [facility] Supraventricular tachycardiawith Provider Comments: Multifocal atrial tachycardia (SNOMED CT 27798376) Diagnosis: ICD-10-CM active Diagnosis [place] M06.[address] [facility] arthritis, unspecifiedwith Provider Comments: Seropositive rheumatoid arthritis (SCT 384820703) Diagnosis: ICD-10-CM active Diagnosis [place] K02.9 Dental caries, [facility] unspecifiedwith Provider Comments: Dental Caries, unspecified Diagnosis: ICD-10-CM active Diagnosis [place] Z23 Encounter [address] [facility] immunizationwith Provider Comments: Encounter for Immunization Diagnosis: ICD-10-CM active Diagnosis [place] H25.13 Age-related V A [facility] nuclear cataract, bilateralwith Provider Comments: Age-related nuclear cataract, bilateral Diagnosis: ICD-10-CM active Diagnosis [place] I25.[address] [facility] disease of [place] coronary artery w/o ang pctrswith Provider Comments: CAD - Coronary artery disease ([facility] [place] [id number]) Diagnosis: ICD-10-CM active Diagnosis [place] L40.[address] [facility] psoriasis, unspecifiedwith Provider Comments: Psoriatic arthritis Diagnosis: ICD-10-CM active Diagnosis [place] M05.[address] [facility] arthritis with rheumatoid factor, unspecifiedwith Provider Comments: Seropositive Rheumatoid arthritis Medications Combined list of outpatient medications from Department of Defense and Veterans Affairs facilities. Medications provided include 1) outpatient medications from the last 15 months, and 2) patient-reported medications. Medication Details Route Status Patient Prescription Prescription Last Ordering Order Source Instructions Expires Number Dispense Provider Date Date ACETAMINOPH TAKE TWO ORALLY ACTIVE 02/09/2023 [id number] H OANG,VIE 02/11/ [place] 500MG TABLETS 2 T H 2021 [place] TAB BY MOUTH [facility] FOUR TIMES A DAY NEEDED *NOT TO EXCEED 4000MG IN 24 HOURS* FOR PAIN ACETAMINOPH TAKE TWO ORALLY DISCONT 01/13/2022 [id number] LEON,VIE 01/16/ [place] 500MG TABLETS INUED 2 T H 2020 [place] TAB BY MOUTH [facility] FOUR TIMES A DAY NEEDED *NOT TO EXCEED 4000MG IN 24 HOURS* FOR PAIN ADALIMUMAB INJECT SUBCUT ACTIVE 01/12/2023 [id number] RIN DEN,TI 02/08/ [place] 40MG/0.8ML 40 MG ANEOUS 2 MOTHY D 2021 [place] A INJ,PEN,KIT UNDER HCS THE SKIN EVERY 2 WEEKS ADALIMUMAB INJECT SUBCUT DISCONT 09/29/2022 [id number] MO LITOR,J 10/01/ [place] 40MG/0.8ML 40 MG ANEOUS INUE 2 ERRY A 2020 [place] INJ,PEN,KIT UNDER HCS THE SKIN EVERY 2 WEEKS ADALIMUMAB INJECT SUBCUT DISCONT 01/13/2022 [id number] AL VANPOUR 01/16/ [place] 40MG/0.8ML 40 MG ANEOUS INUE 1 ,RAGHAVENDRA 2020 [place] INJ,PEN,KIT UNDER HCS THE SKIN EVERY 2 WEEKS AMIODARONE TAKE ONE ORALLY SUSPEND 05/16/2023 [id number] M CCRARY,A 05/16/ [place] HCL TABLET ED 2 BBIE L 2021 [place] (PACERONE) BY MOUTH HCS 200MG TAB EVERY DAY FOR HEART RHYTHM - TAKE WITH FOOD AMIODARONE TAKE ONE ORALLY DISCONT 07/09/2022 [id number] M CCRARY,A 04/10/ [place] HCL TABLET INUED 2 BBIE L 2021 [place] (PACERONE) BY MOUTH (EDIT) HCS 200MG TAB TWICE A DAY FOR 30 DAYS, THEN TAKE ONE TABLET EVERY DAY FOR HEART RHYTHM - TAKE WITH FOOD APIXABAN TAKE ONE ORALLY ACTIVE 06/06/2023 [id number] EDUARDO ON, 06/06/ [place] 5MG TAB TABLET 2 HANG 2021 [place] BY MOUTH [facility] EVERY 12 HOURS TO PREVENT BLOOD CLOTS and STROKE. APIXABAN TAKE ONE ORALLY DISCONT 04/24/2023 [id number] VIC ACUNAK 04/24/ [place] 5MG TAB TABLET INUED 2 RISTIN Y 2021 [place] BY MOUTH (EDIT) HCS EVERY 12 HOURS TO PREVENT BLOOD CLOTS and STROKE. APIXABAN TAKE ONE ORALLY DISCONT 05/10/2022 [id number] RETIREMENT RARY,A 04/10/ [place] 5MG TAB TABLET INUED 2 BBIE L 2021 [place] BY MOUTH (EDIT) HCS EVERY 12 HOURS TO PREVENT BLOOD CLOTS and STROKE. ASPIRIN TAKE ONE ORALLY DISCONT 06/02/2022 [id number] DANAY NG,VIE 07/26/ [place] 81MG TAB,EC TABLET INUED 2 T H 2020 [place] BY MOUTH HCS EVERY DAY ASPIRIN TAKE ONE ORALLY DISCONT 12/26/2021 [id number] DANAY NG,VIE 12/27/ [place] 81MG TAB,EC TABLET INUE 1 T H 2020 [place] BY MOUTH HCS EVERY DAY ATORVASTATI TAKE ONE ORALLY ACTIVE 03/06/2023 [id number] H OANG,VIE 03/05/ [place] CA 80MG TABLET 2 T H 2021 [place] TAB BY MOUTH HCS AT BEDTIME FOR CHOLESTE ROL REPLACES SIMVASTA TIN ATORVASTATI TAKE ORALLY DISCONT 06/02/2022 [id number] H OAJATIN CASTRO 06/03/ [place] 80MG ONE-HALF INUED 2 T H 2020 [place] TAB TABLET (EDIT) HCS BY MOUTH AT BEDTIME FOR CHOLESTE ROL REPLACES SIMVASTA TIN CARBOXYMETH INSTILL BOTH ACTIVE 07/12/2022 [id number] SCHEU RER, 07/12/ [place] YLCELLULOSE 1 DROP EYES 1 ANGELA A 2020 [place] A NA 0.25% IN BOTH HCS SOLN,OPH EYES FOUR TIMES A DAY CEPHALEXIN TAKE 1 ORALLY ACTIVE JATIN LE[place] 500MG CAP CAPSULE T H 2021 [place] BY MOUTH HCS FOUR TIMES A DAY CHOLECALCIF TAKE ONE ORALLY 06/02/2022 [id number] CAROLYNCHARLESNina 06/03/ [place] RONAK 25MCG TABLET 2 T H 2020 [place] (1,000UNIT) BY MOUTH HCS TAB EVERY DAY CYANOCOBALA TAKE ONE ORALLY ACTIVE 03/06/2023 [id number] LEON,VIE 05/30/ [place] MIN 1000MCG TABLET 2 T H 2021 [place] TAB BY MOUTH HCS EVERY DAY CYANOCOBALA TAKE ONE ORALLY DISCONT 06/02/2022 [id number] LEON,VIE 06/03/ [place] MIN 1000MCG TABLET INUED 2 T H 2020 [place] TAB BY MOUTH HCS EVERY DAY DOCUSATE NA TAKE TWO ORALLY ACTIVE JATIN LEON 06/24 / [place] 50MG/SENNOS TABLETS T H 2021 [place] A IDES 8.6MG BY MOUTH HCS TAB TWICE A DAY FLUTICASONE SPRAY 1 NASAL 06/02/2022 [id number] JATIN LE[place] 06/03/ [place] PROPIONATE SPRAY IN 1 T H 2020 [place] A 50MCG/SPRAY EACH HCS SOLN,NASAL, NOSTRIL 16GM TWICE A DAY NEEDED FOR RUNNY NOSE USE REGULARL Y FOR RELIEF OF ALLERGIE S/CONGES TION FOLIC ACID TAKE ONE ORALLY ACTIVE 03/06/2023 [id number] H OACHARLES CASTROE 04/25/ [place] 1MG TAB TABLET 2 T H 2021 [place] BY MOUTH HCS EVERY DAY FOLIC ACID TAKE ONE ORALLY DISCONT 01/12/2023 [id number] RINDEN,TI 02/04/ [place] 1MG TAB TABLET INUED 2 MOTHY D 2021 [place] BY MOUTH HCS EVERY DAY FOLIC ACID TAKE ONE ORALLY DISCONT 01/13/2022 [id number] ALVANPOUR 02/19/ [place] 1MG TAB TABLET INUE [...] DAY NEEDED ISOSORBIDE TAKE ORALLY ACTIVE 03/06/2023 [id number] LEON, VIE 03/13/ [place] MONONITRATE ONE-HALF 2 T H 2021 [place] 60MG TAB,SA TABLET HCS BY MOUTH EVERY DAY ISOSORBIDE TAKE ORALLY DISCONT 03/22/2022 [id number] FB-SAG ER, 02/21/ [place] MONONITRATE ONE-HALF INUED 2 ANGELA 2021 ent o f 60MG TAB,SA TABLET BY MOUTH s EVERY Affairs DAY ISOSORBIDE TAKE ONE ORALLY DISCONT 06/02/2022 [id number] LEON,VIE 06/23/ [place] MONONITRATE TABLET INUED 2 T H 2020 [place] 60MG TAB,SA BY MOUTH HCS EVERY DAY FOR CHEST PAIN ISOSORBIDE TAKE ONE ORALLY DISCONT 07/29/2021 [id number] LEON,VIE 09/12/ [place] MONONITRATE TABLET INUE 1 T H 2019 [place] 60MG TAB,SA BY MOUTH HCS EVERY DAY FOR CHEST PAIN LIDOCAINE APPLY TOPICA ACTIVE JATIN [place] 06/24/ [place] PATCH 1-3 LLY T H 2021 [place] PATCH 4% HCS TOPICALL Y EVERY DAY LORATADINE TAKE ONE ORALLY DISCONT 07/29/2021 [id number] H ZINAJATIN 09/04/ [place] 10MG TAB TABLET INUE 1 T H 2019 [place] BY MOUTH HCS EVERY DAY FOR ALLERGY SYMPTOMS LORATADINE TAKE ONE ORALLY 06/02/2022 [id number] H ZINAJATIN 06/23/ [place] 10MG TAB TABLET 2 T H 2020 [place] BY MOUTH HCS EVERY DAY FOR ALLERGY SYMPTOMS MAGNESIUM TAKE 1 ORALLY 04/05/2022 [id number] RANWEI LER 03/06/ [place] CITRATE BOTTLE 2 ,VJ B 2021 [place] LIQUID,ORAL BY MOUTH HCS ONCE AT 12PM (NOON) ONE DAY BEFORE PROCEDUR E FOR COLON PREP METHOCARBAM TAKE ORALLY ACTIVE JATIN LE[place] 06/24/ [place] TAB ONE-HALF T H 2021 [place] TO ONE HCS TABLET BY MOUTH EVERY 6 HOURS NEEDED METOPROLOL TAKE ONE ORALLY ACTIVE 03/06/2023 [id number] H JATIN IZAGUIRRE 03/13/ [place] TARTRATE TABLET 2 T H 2021 [place] 50MG TAB BY MOUTH HCS TWICE A DAY METOPROLOL TAKE ONE ORALLY DISCONT 03/22/2022 [id number] B-GABRIEL, m TARTRATE TABLET INUED 2021 ent of 50MG TAB BY MOUTH [place] TWICE A s DAY Affairs METOPROLOL TAKE ORALLY DISCONT 06/02/2022 [id number] CHARLES LEONE 08/07/ [place] TARTRATE ONE-HALF INUED 2 T H 2020 [place] 50MG TAB TABLET HCS BY MOUTH TWICE A DAY FOR HEART METOPROLOL TAKE ORALLY DISCONT 07/29/2021 [id number] JATIN LEON 08/18/ [place] TARTRATE ONE-HALF INUE 1 T H 2019 [place] 50MG TAB TABLET HCS BY MOUTH TWICE A DAY FOR HEART OXYCODONE TAKE ORALLY ACTIVE JATIN [place] 06/24/ [place] TAB ONE-HALF T H 2021 [place] TO ONE HCS TABLET BY MOUTH EVERY 4 HOURS NEEDED PANTOPRAZOL TAKE ONE ORALLY ACTIVE 03/06/2023 [id number] [place],VIE 04/30/ [place] NA 40MG TABLET 2 T H 2021 [place] TAB,EC BY MOUTH HCS EVERY MORNING ONE-HALF HOUR BEFORE EATING TO DECREASE STOMACH ACID TAKE ON AN EMPTY STOMACH, AT LEAST 30 MINUTES PRIOR TO MEAL PANTOPRAZOL TAKE ONE ORALLY DISCONT 06/02/2022 [id number] LEON,VIE 08/07/ [place] NA 40MG TABLET INUED 2 T H 2020 [place] TAB,EC BY MOUTH HCS EVERY MORNING ONE-HALF HOUR BEFORE EATING TO DECREASE STOMACH ACID TAKE ON AN EMPTY STOMACH, AT LEAST 30 MINUTES PRIOR TO MEAL PANTOPRAZOL TAKE ONE ORALLY DISCONT 07/29/2021 [id number] LEON,VIE 08/09/ [place] 40MG TABLET INUE 1 T H 2019 [place] TAB,EC BY MOUTH HCS EVERY MORNING ONE-HALF HOUR BEFORE EATING TO DECREASE STOMACH ACID TAKE ON AN EMPTY STOMACH, AT LEAST 30 MINUTES PRIOR TO MEAL PEG-3350/EL TAKE 1 ORALLY 04/05/2022 [id number] RA NWEILER 03/06/ [place] ECTROLYTES CONTAINE 2 [...] DAY PREDNISONE TAKE ONE ORALLY ACTIVE 01/12/2023 [id number] R INDEN,TI 01/19/ [place] 10MG TAB TABLET 2 MOTHY D 2021 [place] BY MOUTH HCS EVERY DAY PREDNISONE TAKE ONE ORALLY DISCONT 03/21/2022 [id number] M OLVINICIUSJ 03/20/ [place] 10MG TAB TABLET INUE 1 ERRY A 2020 [place] BY MOUTH HCS EVERY DAY SULFASALAZI TAKE TWO ORALLY ACTIVE 01/12/2023 [id number] RINDEN,TI 01/19/ [place] 500MG TABLETS 2 MOTHY D 2021 [place] TAB BY MOUTH HCS TWICE A DAY SULFASALAZI TAKE TWO ORALLY DISCONT 03/21/2022 [id number] ORLANDOJ 03/20/ [place] 500MG TABLETS INUE [...] [place] to adverse to adverse [address] [facility] reactions reactions to drug to drug (finding) (finding) Immunizations Combined list of available immunizations from the Department of Defense and Veterans Affairs facilities. Immunization Series Date Administered Site Reaction Lot CVX Drug St atus Comments Source Given By Number Code Navigation Officer COVID-19 4 complet PFR; [place] (MoveinBlue), 2021 ed [id number]; [place] MRNA, LNP-S, 02 HCS PF, 30 2 MCG/0.3 ML DOSE, JJ-SUCROSE (AGES 12+ YEARS) COVID-19 3 complet PRF; [place] ([employer]inBlue), 2020 ed [id number]; [place] MRNA, LNP-S, 02 HCS PF, 30 2 MCG/0.3 ML DOSE INFLUENZA, complet [place] INJECTABLE, 2020 ed [place] QUADRIVALENT, HCS PRESERVATIVE FREE COVID-19 2 complet PFR; [place] (PFIZER), 2020 ed [id number]; [place] MRNA, LNP-S, 02 HCS PF, 30 1 MCG/0.3 ML DOSE COVID-19 1 complet PFR; [place] (PFIZER), 2020 ed [id number]; [place] MRNA, LNP-S, 02 CBOC PF, 30 1 MCG/0.3 ML DOSE INFLUENZA, complet [place] INJECTABLE, 2019 ed [place] QUADRIVALENT, HCS PRESERVATIVE FREE INFLUENZA, complet [place] SEASONAL, 2018 ed [place] INJECTABLE, HC S PRESERVATIVE FREE ZOSTER 2 complet [place] RECOMBINANT 2018 ed [place] [facility] ZOSTER 1 complet [place] RECOMBINANT 2018 ed [place] [facility] INFLUENZA, complet [place] SEASONAL, 2017 ed [place] INJECTABLE, HC S PRESERVATIVE FREE INFLUENZA, complet [place] HIGH DOSE 2016 ed [facility] SEASONAL HCS INFLUENZA, complet [place] SEASONAL, 2015 ed [place] INJECTABLE, HC S PRESERVATIVE FREE INFLUENZA, complet [place] HIGH DOSE 2014 ed [place] SEASONAL HCS PNEUMOCOCCAL complet [facility] [place] CONJUGATE PCV 2015 ed PHARM, M20 [facility] 13 640,03/03 HCS INFLUENZA, complet [place] SEASONAL, 2013 ed [place] INJECTABLE, HC S PRESERVATIVE FREE PNEUMOCOCCAL, complet michelle ck and [place] UNSPECIFIED 2013 ed co,[id number] [facility] VA FORMULATION 6,25sep1 4 HCS INFLUENZA, complet [place] UNSPECIFIED 2013 ed [place] [facility] FORMULATION HC S INFLUENZA, complet [place] UNSPECIFIED 2012 ed [place] FORMULATION HC S ZOSTER LIVE complet [facility] [place] 2012 ed INC, [place] [id number], HCS [id number] TDAP complet glaxosmit [place] 2009 ed hkline,ac [facility] [id number], HCS 01/03/12 Results Combined list of recent chemistry, hematology and other laboratory results from Department of Defense and Veterans Affairs, ranging from 15 months to all on record, depending upon the facility. Order Results Value Reference Date Interpretation Specimen Commen ts Source Name Range URINALYS COLOR OF YELLOW 06/24 Specimen Type: URINE [place] IS URINE /2021 No comment enter ed. IS [facility] Ordering Provid er: JAYDE MENDOZA Report Released Date/Time: Jun 24, 2022 06:55 PM Reporting Lab: [facility] [address] [place] [address] Performing Lab: [facility] [address] [place] [address] URINALYS SPECIFIC 1.039 1.003 - 06/24 H Specimen Type: URINE [place] IS GRAVITY OF 1.035 /2021 No comment en tered. IS [facility] URINE Ordering Provid er: JAYDE MENDOZA Report Released Date/Time: Jun 24, 2022 06:55 PM Reporting Lab: [facility] [address] [place] [address] Performing Lab: [facility] [address] [place] [address] URINALYS BILIRUBIN. NEGATIVE 06/24 Specimen Ty pe: URINE [place] IS TOTAL /2021 No comment enter ed. IS [facility] [[facility]] Ordering Pro vider: JAYDE MENDOZA IN URINE Report Release d Date/Time: Jun 24, 2022 06:55 PM BY TEST Reporting Lab: [facility] STRIP [address] [place] [address] Performing Lab: [facility] [address] [place] [address] URINALYS KETONES NEGATIVE 06/24 Specimen Type: URINE [place] IS [MASS/VOLU /2021 No comment en tered. IS [facility] ME] IN Ordering Provid er: JAYDE MENDOZA URINE BY Report Release d Date/Time: Jun 24, 2022 06:55 PM TEST STRIP Reporting La b: [facility] [address] [place] [address] Performing Lab: [facility] [address] [place] [address] URINALYS GLUCOSE NEGATIVE <30 - 30 06/24 Specimen Type : URINE [place] IS [MASS/VOLU /2021 No comment en tered. IS [facility] ME] IN Ordering Provid er: JAYDE MENDOZA W URINE BY Report Release d Date/Time: Jun 24, 2022 06:55 PM TEST STRIP Reporting [place] b: [facility] [address] [place] [address] Performing Lab: [facility] [place] [address] URINALYS PROTEIN 50 <20 - 20 06/24 Specimen Type: URINE [place] IS [MASS/VOLU /2021 No comment en zach. IS [facility] ME] IN Ordering Provid er: JAYDE MENDOZA URINE BY Report Release d Date/Time: Jun 24, 2022 06:55 PM TEST STRIP Reporting La b: [facility] [address] [facility] [facility] [address] Performing Lab: [facility] [place] [address] URINALYS PH OF 6.5 5.0 - 8.0 06/24 Specimen Type : URINE [place] IS URINE BY /2021 No comment jessica bills. IS [facility] TEST STRIP Ordering Pro vider: JAYDE MENDOZA Report Released Date/Time: Jun 24, 2022 06:55 PM Reporting Lab: [facility] [address] [facility] [facility] [address] Performing Lab: [facility] [address] [facility] [address] URINALYS LEUKOCYTES 17 0 - 7 06/24 H Specimen Typ e: URINE [place] IS [#/AREA] /2021 No comment jessica bills. IS [facility] IN URINE Ordering Provi maria: JAYDE MENDOZA SEDIMENT Report Release d Date/Time: Jun 24, 2022 06:55 PM BY Reporting Lab: [facility] MICROSCOPY [facility] [address] HIGH POWER Performing L ab: [facility] FIELD [address] [facility] [phone] URINALYS BACTERIA NONE 06/24 Specimen Type: URINE [place] IS [PRESENCE] SEEN /2021 No comment nils serrano. IS [facility] IN URINE Ordering Provi maria: JAYDE MENDOZA SEDIMENT Report Release d Date/Time: Jun 24, 2022 06:55 PM BY LIGHT Reporting Lab: [facility]CROSCOPY [facility] [address] Performing Lab: [facility] [address] [facility] [address] URINALYS CALCIUM FEW 06/24 Specimen Type: URINE [place] IS OXALATE /2021 No comment enter ed. IS [facility] CRYSTALS Ordering Provi maria: JAYDE MENDOZA [PRESENCE] Report Relea sed Date/Time: Jun 24, 2022 06:55 PM IN URINE Reporting Lab: [facility] SEDIMENT [address] [facility] [address] BY LIGHT Performing Lab : [facility] MICROSCOPY [facility] [address] URINALYS ERYTHROCYT >180 0 - 3 06/24 H Specimen Typ e: URINE [place] IS ES /2021 No comment enter ed. IS [facility] [#/AREA] Ordering Provi maria: JAYDE EMNDOZA IN URINE Report Release d Date/Time: Jun 24, 2022 06:55 PM SEDIMENT Reporting Lab: [facility] BY [address] [facility] [facility] [address] MICROSCOPY Performing L ab: [facility] HIGH POWER [facility] [address] FIELD URINALYS APPEARANCE TURBID 06/24 Specimen Typ e: URINE [place] IS OF URINE /2021 No comment ente red. IS [facility] Ordering Provid er: JAYDE MENDOZA Report Released Date/Time: Jun 24, 2022 06:55 PM Reporting Lab: [facility] [address] [facility] [address] Performing Lab: [facility] [address] [facility] [address] URINALYS EPITHELIAL NONE 06/24 Specimen Typ e: URINE [place] IS CELLS.SQUA SEEN No comment en tered. IS [facility] MOUS Ordering Provid er: JAYDE MENDOZA [#/AREA] Report Release d Date/Time: Jun 24, 2022 06:55 PM IN URINE Reporting Lab: [facility] SEDIMENT [address] [facility] [address] BY Performing Lab: [facility] MICROSCOPY [facility] [address] HIGH POWER FIELD URINALYS HEMOGLOBIN 3+ 06/24 Specimen Typ e: URINE [place] IS [PRESENCE] /2021 No comment en tered. IS [facility] IN URINE Ordering Provi maria: JAYDE MENDOZA BY TEST Report Released Date/Time: Jun 24, 2022 06:55 PM STRIP Reporting Lab: [facility] [address] [facility] [address] Performing Lab: [facility] [address] [facility] [address] URINALYS NITRITE NEGATIVE 06/24 Specimen Type: URINE [place] IS [PRESENCE] No comment en tered. IS [facility] IN URINE Ordering Prov ider: KELLY,JAYDE W BY TEST Report Released Date/Time: Jun 24, 2022 06:55 PM STRIP Reporting Lab: [facility] [place] [address] Performing Lab: [facility] [address] [place] [address] URINALYS LEUKOCYTE 25 06/24 Specimen Type : URINE [place] IS ESTERASE /2021 No comment ente red. IS [facility] [[facility]] Ordering Pro vider: JAYDE MENDOZA IN URINE Report Release d Date/Time: Jun 24, 2022 06:55 PM BY TEST Reporting Lab: [facility] STRIP [address] [place] [address] Performing Lab: [facility] [address] [place] [address] AST/SGOT ASPARTATE 19 <34 - 34 06/24 Specimen Typ e: PLASMA [place] AMINOTRANS /2021 No comment en zach. IS [facility] FERASE Ordering Provid er: JAYDE MENDOZA [ENZYMATIC Report Relea sed Date/Time: Jun 24, 2022 08:09 PM ACTIVITY/V Reporting La b: [facility]] IN [address] [facility] [id number] SERUM OR Performing Lab : [facility] [place] [address] POTASSIU POTASSIUM 4.9 3.5 - 5.1 06/24 Specimen Ty pe: PLASMA [place] M [MOLES/VOL /2021 No comment en terhernando. IS [facility] UME] IN Ordering Provid er: JAYDE MENDOZA SERUM OR Report Release d Date/Time: Jun 24, 2022 08:09 PM PLASMA Reporting Lab: [facility] [place] [address] Performing Lab: [facility] [address] [place] [facility] [address] PROTEIN, PROTEIN 6.8 6.0 - 8.3 06/24 Specimen Type : PLASMA [place] TOTAL [MASS/VOLU /2021 No comment en terhernando. IS [facility] ME] IN Ordering Provid er: JAYDE MENDOZA SERUM OR Report Release d Date/Time: Jun 24, 2022 08:09 PM PLASMA Reporting Lab: [facility] [address] [facility] [address] Performing Lab: [facility] [place] [address] PROTHROM INR IN 1.1 0.8 - 1.1 06/24 Specimen Type : PLASMA [place] BIN PLATELET /2021 No comment ente red. IS [facility] TIME/INR POOR Ordering Provi maria: JAYDE MENDOZA PLASMA BY Report Releas ed Date/Time: Jun 24, 2022 06:55 PM COAGULATIO Reporting La b: [facility] N [place] [address] Performing Lab: [facility] [place] [address] PROTHROM PROTHROMBI 12.1 9.4 - 12.5 06/24 Specimen Type: PLASMA [place] BIN N TIME /2021 No comment enter ed. IS [facility] TIME/INR (PT) Ordering Provi maria: JAYDE MENDOZA Report Released Date/Time: Jun 24, 2022 06:55 PM Reporting Lab: [facility] [place] [address] Performing Lab: [facility] [place] [address] COVID-19 SARS-COV-2 Not 06/24 Specimen Typ e: NASOPHARYNGEAL [place] DIAGNOST (COVID-19) Detected /2021 Comment: C epheid GeneXpert (618) IS [facility] IC PANEL RNA Ordering Provi maria: JAYDE MENDOZA (CEPHEID [PRESENCE] Report Rele ased Date/Time: Jun 24, 2022 06:55 PM ) IN Reporting Lab: [facility] RESPIRATOR [address] [facility] [address] Y SPECIMEN Performing L ab: [facility] BY [place]ST[place]Y [place] [address] WITH PROBE DETECTION CBC & LEUKOCYTES 9.67 4.0 - 11.0 06/24 Specimen T ype: BLOOD [place] DIFF [#/VOLUME] /2021 Comment: Clu mped Platelets. Invitro artefact. No clinical significance. Platelet count may be higher than stated value. Plt count = 214 K-cmm Manual Differential Performed IS [facility] IN BLOOD Ordering Provi maria: JAYDE MENDOZA BY Report Released Date/Time: Jun 24, 2022 06:55 PM AUTOMATED Reporting Lab : [facility] [place] [address] Performing Lab: [facility] [place] [address] CBC & ERYTHROCYT 3.36 4.6 - 6.2 08/08 L Specimen Ty pe: BLOOD [place] DIFF ES /2021 Comment: Clumpe d Platelets. Invitro artefact. No clinical significance. Platelet count may be higher than stated value. Plt count = 214 K- cmm Manual Differential Performed IS [facility] [#/VOLUME] Ordering Pro vider: JAYDE MENDOZA IN BLOOD Report Release d Date/Time: Jun 24, 2022 06:55 PM BY Reporting Lab: [facility] AUTOMATED [facility] [address] COUNT Performing Lab: [facility] [address] [facility] [address] CBC & HEMOGLOBIN 12.0 13.5 - 08/08 L Specimen Type : BLOOD [place] DIFF [MASS/VOLU 17.9 /2021 Comment: Clu mped Platelets. Invitro artefact. No clinical significance. Platelet count may be higher than stated value. Plt count = 214 K-cmm Manual Differential Performed IS [facility] ME] IN Ordering Provid er: JAYDE MENDOZA BLOOD Report Released Date/Time: Jun 24, 2022 06:55 PM Reporting Lab: [facility] [address] [facility] [address] Performing Lab: [facility] [address] [facility] [address] CBC & HEMATOCRIT 35.9 41 - 54 /08 L Specimen Type : BLOOD [place] DIFF [VOLUME /2021 Comment: Clumpe d Platelets. Invitro artefact. No clinical significance. Platelet count may be higher than stated value. Plt count = 214 K-cmm Manual Differential Performed IS [facility] FRACTION] Ordering Prov ider: JAYDE MENDOZA OF BLOOD Report Release d Date/Time: Jun 24, 2022 06:55 PM BY Reporting Lab: [facility] AUTOMATED [facility] [address] COUNT Performing Lab: [facility] [address] [facility] [address] CBC & MCV 106.8 80 - 100 / H Specimen Type: BLOOD [place] DIFF [ENTITIC /2021 Comment: Clump ed Platelets. Invitro artefact. No clinical significance. Platelet count may be higher than stated value. Plt count = 214 K-cmm Manual Differential Performed IS [facility] VOLUME] BY Ordering Pro vider: JAYDE MENDOZA AUTOMATED Report Releas ed Date/Time: Jun 24, 2022 06:55 PM COUNT Reporting Lab: [facility] [address] [place] [address] Performing Lab: [facility] [address] [place] [address] CBC & MCH 35.7 27 - 33 06/24 H Specimen Type: B LOOD [place] DIFF [ENTITIC /2021 Comment: Clump ed Platelets. Invitro artefact. No clinical significance. Platelet count may be higher than stated value. Plt count = 214 K-cmm Manual Differential Performed IS [facility] MASS] BY Ordering Provi maria: JAYDE MENDOZA AUTOMATED Report Releas ed Date/Time: Jun 24, 2022 06:55 PM COUNT Reporting Lab: [facility] [address] [place] [address] Performing Lab: [facility] [address] [place] [address] CBC & MCHC 33.4 32.0 - 06/24 Specimen Type: B LOOD [place] DIFF [MASS/VOLU 37.5 /2021 Comment: Clu mped Platelets. Invitro artefact. No clinical significance. Platelet count may be higher than stated value. Plt count = 214 K-cmm Manual Differential Performed IS [facility] ME] BY Ordering Provid er: JAYDE MENDOZA AUTOMATED Report Rele ed Date/Time: Jun 24, 2022 06:55 PM COUNT Reporting Lab: [facility] [place] [address] Performing Lab: [facility] [address] [place] [address] CBC & PLATELETS comment 06/24 Specimen Type: BLOOD [place] DIFF [#/VOLUME] /2021 Comment: Clu mped Platelets. Invitro artefact. No clinical significance. Platelet count may be higher than stated value. Plt count = 214 K-cmm Manual Differential Performed IS [facility] IN BLOOD Ordering Provi maria: JAYDE MENDOZA BY Report Released Date/Time: Jun 24, 2022 06:55 PM AUTOMATED Reporting Lab : [facility] [place] [address] Performing Lab: [facility] [address] [place] [address] CBC & PLATELET canc 06/24 Specimen Type: BLOOD [place] DIFF MEAN /2021 Comment: Clumpe d Platelets. Invitro artefact. No clinical significance. Platelet count may be higher than stated value. Plt count = 214 K- cmm Manual Differential Performed IS [facility] VOLUME Ordering Provid er: JAYDE MENDOZA [ENTITIC Report Release d Date/Time: Jun 24, 2022 06:55 PM VOLUME] IN Reporting La b: [facility] BLOOD BY [address] [place] [address] AUTOMATED Performing La b: [facility] COUNT [address] [place] [address] CBC & NEUTROPHIL 70.7 06/24 Specimen Type : BLOOD [place] DIFF S/ Comment: Clumpe d Platelets. Invitro artefact. No clinical significance. Platelet count may be higher than stated value. Plt count = 214 K- cmm Manual Differential Performed IS [facility] LEUKOCYTES Ordering Pro vider: JAYDE MENDOZA IN BLOOD Report Release d Date/Time: Jun 24, 2022 06:55 PM BY MANUAL Reporting Lab : [facility] COUNT [address] [place] [address] Performing Lab: [facility] [address] [place] [address] CBC & LYMPHOCYTE 16.7 06/24 Specimen Type : BLOOD [place] DIFF S/ Comment: Clumpe d Platelets. Invitro artefact. No clinical significance. Platelet count may be higher than stated value. Plt count = 214 K- cmm Manual Differential Performed IS [facility] LEUKOCYTES Ordering Pro vider: JAYDE MENDOZA IN BLOOD Report Release d Date/Time: Jun 24, 2022 06:55 PM BY MANUAL Reporting Lab : [facility] COUNT [address] [place] [address] Performing Lab: [facility] [address] [place] [address] CBC & ERYTHROCYT 14.0 11.5 - 06/24 Specimen Type : BLOOD [place] DIFF E 14.5 Comment: Clumpe d Platelets. Invitro artefact. No clinical significance. Platelet count may be higher than stated value. Plt count = 214 K- cmm Manual Differential Performed [facility] DISTRIBUTI Ordering Pro vider: JAYDE MENDOZA ON WIDTH Report Release d Date/Time: Jun 24, 2022 06:55 PM [RATIO] BY Reporting La b: [facility] [place] [address] COUNT Performing Lab: [facility] [place] [address] CBC & MONOCYTES/ 9.6 06/24 Specimen Type : BLOOD [place] DIFF Comment: Clumpe d Platelets. Invitro artefact. No clinical significance. Platelet count may be higher than stated value. Plt count = 214 K- cmm Manual Differential Performed IS [facility] LEUKOCYTES Ordering Pro vider: JAYDE MENDOZA W IN BLOOD Report Release d Date/Time: Jun 24, 2022 06:55 PM BY Reporting Lab: [facility] AUTOMATED [facility] [address] COUNT Performing Lab: [facility] [address] [facility] [address] CBC & EOSINOPHIL 1.5 06/24 Specimen Type : BLOOD [place] DIFF S/ Comment: Clumpe d Platelets. Invitro artefact. No clinical significance. Platelet count may be higher than stated value. Plt count = 214 K- cmm Manual Differential Performed IS [facility] LEUKOCYTES Ordering Pro vider: JAYDE MENDOZA W IN BLOOD Report Release d Date/Time: Jun 24, 2022 06:55 PM BY Reporting Lab: [facility] AUTOMATED [facility] [address] COUNT Performing Lab: [facility] [address] [facility] [address] CBC & METAMYELOC 1.0 06/24 Specimen Type : BLOOD [place] DIFF YTES/ Comment: Clump ed Platelets. Invitro artefact. No clinical significance. Platelet count may be higher than stated value. Plt count = 214 K-cmm Manual Differential Performed IS [facility] LEUKOCYTES Ordering Pro vider: JAYDE MENDOZA W IN BLOOD Report Release d Date/Time: Jun 24, 2022 06:55 PM BY MANUAL Reporting Lab : [facility] COUNT [address] [facility] [address] Performing Lab: [facility] [address] [facility] [address] CBC & MYELOCYTES 0.5 06/24 Specimen Type : BLOOD [place] DIFF / Comment: Clumpe d Platelets. Invitro artefact. No clinical significance. Platelet count may be higher than stated value. Plt count = 214 K- cmm Manual Differential Performed IS [facility] LEUKOCYTES Ordering Pro vider: JAYDE MENDOZA W IN BLOOD Report Release d Date/Time: Jun 24, 2022 06:55 PM BY MANUAL Reporting Lab : [facility] [place] [address] Performing Lab: [facility] [address] [place] [address] CBC & NORMOCHROM YES 06/24 Specimen Type : BLOOD [place] DIFF IC /2021 Comment: Clumpe d Platelets. Invitro artefact. No clinical significance. Platelet count may be higher than stated value. Plt count = 214 K- cmm Manual Differential Performed [facility] [[place]] Ordering Pro vider: JAYDE MENDOZA W IN BLOOD Report Release d Date/Time: Jun 24, 2022 06:55 PM BY LIGHT Reporting Lab: [facility] MICROSCOPY [facility] [address] Performing Lab: [facility] [address] [facility] [address] CBC & MACROCYTES SLIGHT 06/24 Specimen Type : BLOOD [place] DIFF [PRESENCE] /2021 Comment: Clu mped Platelets. Invitro artefact. No clinical significance. Platelet count may be higher than stated value. Plt count = 214 K-cmm Manual Differential Performed IS [facility] IN BLOOD Ordering Provi maria: JAYDE MENDOZA BY LIGHT Report Release d Date/Time: Jun 24, 2022 06:55 PM MICROSCOPY Reporting La b: [facility] [address] [facility] [address] Performing Lab: [facility] [place] [address] CBC & LYMPHOCYTE 1.61 1.0 - 4.0 06/24 Specimen Ty pe: BLOOD [place] DIFF S /2021 Comment: Clumpe d Platelets. Invitro artefact. No clinical significance. Platelet count may be higher than stated value. Plt count = 214 K- cmm Manual Differential Performed IS [facility] [#/VOLUME] Ordering Pro vider: JAYDE MENDOZA W IN BLOOD Report Release d Date/Time: Jun 24, 2022 06:55 PM BY Reporting Lab: [facility] AUTOMATED ONE [facility] [address] COUNT Performing Lab: [facility] [address] [facility] [address] CBC & MONOCYTES 0.93 0.1 - 1.0 06/24 Specimen Typ e: BLOOD [place] DIFF [#/VOLUME] /2021 Comment: Clu mped Platelets. Invitro artefact. No clinical significance. Platelet count may be higher than stated value. Plt count = 214 K-cmm Manual Differential Performed IS [facility] IN BLOOD Ordering Provi maria: JAYDE MENDOZA BY Report Released Date/Time: Jun 24, 2022 06:55 PM AUTOMATED Reporting Lab : [facility] [place] [address] Performing Lab: [facility] [address] [place] [address] CBC & NEUTROPHIL 6.84 2.0 - 7.7 06/24 Specimen Ty pe: BLOOD [place] DIFF S /2021 Comment: Clumpe d Platelets. Invitro artefact. No clinical significance. Platelet count may be higher than stated value. Plt count = 214 K- cmm Manual Differential Performed [facility] [#/VOLUME] Ordering Pro vider: JAYDE MENDOZA IN BLOOD Report Release d Date/Time: Jun 24, 2022 06:55 PM BY Reporting Lab: [facility] AUTOMATED ONE [facility] [address] COUNT Performing Lab: [facility] [place] [address] CBC & EOSINOPHIL 0.15 0 - 0.5 06/24 Specimen Type : BLOOD [place] DIFF S /2021 Comment: Clumpe d Platelets. Invitro artefact. No clinical significance. Platelet count may be higher than stated value. Plt count = 214 K- cmm Manual Differential Performed [facility] [#/VOLUME] Ordering Pro vider: JAYDE MENDOZA IN BLOOD Report Release d Date/Time: Jun 24, 2022 06:55 PM BY Reporting Lab: [facility] AUTOMATED ONE [facility] [address] COUNT Performing Lab: [facility] [place] [address] CBC & METAMYELOC 0.10 06/24 Specimen Type : BLOOD [place] DIFF YTES /2021 Comment: Clumpe d Platelets. Invitro artefact. No clinical significance. Platelet count may be higher than stated value. Plt count = 214 K- cmm Manual Differential Performed [facility] [#/VOLUME] Ordering Pro vider: JAYDE MENDOZA IN BLOOD Report Release d Date/Time: Jun 24, 2022 06:55 PM BY MANUAL Reporting Lab : [facility] [place] [address] Performing Lab: [facility] [place] [address] CBC & MYELOCYTES 0.05 08/08 Specimen Type : BLOOD [place] DIFF [#/VOLUME] /2021 Comment: Clu mped Platelets. Invitro artefact. No clinical significance. Platelet count may be higher than stated value. Plt count = 214 K-cmm Manual Differential Performed IS [facility] IN BLOOD Ordering Provi maria: JAYDE MENDOZA BY MANUAL Report Rele ed Date/Time: Jun 24, 2022 06:55 PM COUNT Reporting Lab: [facility] [place] [address] Performing Lab: [facility] [address] [place] [address] CBC & PLATELETS canc 06/24 Specimen Type: BLOOD [place] DIFF RETICULATE /2021 Comment: Clu mped Platelets. Invitro artefact. No clinical significance. Platelet count may be higher than stated value. Plt count = 214 K-cmm Manual Differential Performed IS [facility] D/100 Ordering Provid er: JAYDE MENDOZA PLATELETS Report Rele ed Date/Time: Jun 24, 2022 06:55 PM IN BLOOD Reporting Lab: [facility] [place] [address] AUTOMATED Performing La b: [facility] [place] [address] CBC & ERYTHROCYT PRESENT 06/24 Specimen Type : BLOOD [place] DIFF E /2021 Comment: Clumpe d Platelets. Invitro artefact. No clinical significance. Platelet count may be higher than stated value. Plt count = 214 K- cmm Manual Differential Performed IS [facility] MORPHOLOGY Ordering Pro vider: JAYDE MENDOZA FINDING Report Released Date/Time: Jun 24, 2022 06:55 PM [IDENTIFIE Reporting La b: [facility] R] [place] [address] BLOOD Performing Lab: [facility] [place] [address] COMPREHE CREATININE 1.3 0.7 - 1.2 06/24 H Specimen T ype: PLASMA [place] NSIVE [MASS/VOLU /2021 Comment: Can cellation reported to: Rajni Giraldo RN on 06/24/22@2004 by [place]. Test result cancelled due to hemolysis interference in sample. IS [facility] METABOLI ME] IN Ordering Provi maria: JAYDE MENDOZA C SERUM OR Report Release d Date/Time: Jun 24, 2022 06:55 PM PANEL+MG PLASMA Reporting Lab: [facility] [place] [address] Performing Lab: [facility] [place] [address] COMPREHE UREA 19 8 - 26 06/24 Specimen Type: PLASMA [place] NSIVE NITROGEN /2021 Comment: Cance llation reported to: Rajni Giraldo RN on 06/24/22@2003 by el. Test result cancelled due to hemolysis interference in sample. IS [facility] METABOLI [MASS/VOLU Ordering Pr ovider: JAYDE MENDOZA W C ME] IN Report Released Date/Time: Jun 24, 2022 06:55 PM PANEL+MG SERUM OR Reporting Lab : [facility] PLASMA [place] [address] Performing Lab: [facility] [place] [address] COMPREHE GLUCOSE 111 74 - 100 08/ H Specimen Type: PLASMA [place] NSIVE [MASS/VOLU /2021 Comment: Can cellation reported to: Rajni Giraldo RN on 06/24/22@2003 by el. Test result cancelled due to hemolysis interference in sample. IS [place] [employer] METABOLI ME] IN Ordering Provi maria: JANNETTE MENDOZAED W C SERUM OR Report Release d Date/Time: Jun 24, 2022 06:55 PM PANEL+MG PLASMA Reporting Lab: [facility] [place] [address] Performing Lab: [facility] [place] [address] COMPREHE SODIUM 133 136 - 145 06/24 L Specimen Type : PLASMA [place] NSIVE [MOLES/VOL /2021 Comment: Can cellation reported to: Rajni Giraldo RN on 06/24/22@2003 by el. Test result cancelled due to hemolysis interference in sample. IS [facility] METABOLI UME] IN Ordering Provi maria: KELLY,JAYDE W C SERUM OR Report Release d Date/Time: Jun 24, 2022 06:55 PM PANEL+MG PLASMA Reporting Lab: [facility] [place] [address] Performing Lab: [facility] [place] [address] COMPREHE POTASSIUM canc 3.5 - 5.1 06/24 Specimen Ty pe: PLASMA [place] NSIVE [MOLES/VOL Comment: Can cellation reported to: Rajni Giraldo RN on 06/24/22@2003 by el. Test result cancelled due to hemolysis interference in sample. IS [facility] METABOLI UME] IN Ordering Provi maria: KELLYJAYDE ROBERTSON W C SERUM OR Report Release d Date/Time: Jun 24, 2022 06:55 PM PANEL+MG PLASMA Reporting Lab: [facility] [address] [facility] [address] Performing Lab: [facility] [address] [facility] [address] COMPREHE CHLORIDE 103 98 - 107 06/24 Specimen Type : PLASMA [place] NSIVE [MOLES/VOL Comment: Can cellation reported to: Rajni Giraldo RN on 06/24/22 by el. Test result cancelled due to hemolysis interference in sample. IS [facility] METABOLI UME] IN Ordering Provi maria: JAYDE MENDOZA W C SERUM OR Report Release d Date/Time: Jun 24, 2022 06:55 PM PANEL+MG PLASMA Reporting Lab: [facility] [address] [facility] [address] Performing Lab: [facility] [address] [facility] [address] COMPREHE CARBON 22 22 - 29 06/24 Specimen Type: PLASMA [place] NSIVE Comment: Cance llation reported to: Rajni Giraldo RN on 06/24/22 by el. Test result cancelled due to hemolysis interference in sample. IS [facility] METABOLI TOTAL Ordering Provi maria: JAYDE MENDOZA C [MOLES/VOL Report Relea sed Date/Time: Jun 24, 2022 06:55 PM PANEL+MG UME] IN Reporting Lab: [facility] SERUM OR [address] Kathya JONES [facility] [address] PLASMA Performing Lab: [facility] [address] [facility] [address] COMPREHE CALCIUM 9.4 8.4 - 10.2 06/24 Specimen Typ e: PLASMA [place] NSIVE [MASS/VOLU Comment: Can cellation reported to: Rajni Giraldo RN on 06/24/22 by el. Test result cancelled due to hemolysis interference in sample. IS [facility] METABOLI ME] IN Ordering Provi maria: JAYDE MENDOZA SERUM OR Report Release d Date/Time: Jun 24, 2022 06:55 PM PANEL+MG PLASMA Reporting Lab: [facility] [place] [address] Performing Lab: [facility] [address] [place] [address] COMPREHE PROTEIN canc 6.0 - 8.3 06/24 Specimen Type : PLASMA [place] NSIVE [MASS/VOLU /2021 Comment: Can cellation reported to: Rajni Giraldo RN on 06/24/22@2003 by el. Test result cancelled due to hemolysis interference in sample. IS [facility] METABOLI ME] IN Ordering Provi maria: JAYDE MENDOZA SERUM OR Report Release d Date/Time: Jun 24, 2022 06:55 PM PANEL+MG PLASMA Reporting Lab: [facility] [place] [address] Performing Lab: [facility] [place] [address] COMPREHE ALBUMIN 3.9 3.5 - 5.2 06/24 Specimen Type : PLASMA [place] NSIVE [MASS/VOLU /2021 Comment: Can cellation reported to: Rajni Giraldo RN on 06/24/22@2003 by el. Test result cancelled due to hemolysis interference in sample. IS [facility] METABOLI ME] IN Ordering Provi maria: JAYDE MENDOZA SERUM OR Report Release d Date/Time: Jun 24, 2022 06:55 PM PANEL+MG PLASMA Reporting Lab: [facility] [place] [address] Performing Lab: [facility] [place] [address] COMPREHE BILIRUBIN. 0.2 0.2 - 1.2 06/24 Specimen T ype: PLASMA [place] NSIVE TOTAL /2021 Comment: Cancel lation reported to: Rajni Giraldo RN on 06/24/22@2003 by el. Test result cancelled due to hemolysis interference in sample. IS [facility] METABOLI [MASS/VOLU Ordering Pr ovider: JAYDE MENDOZA ME] IN Report Released Date/Time: Jun 24, 2022 06:55 PM PANEL+MG SERUM OR Reporting Lab : [facility] PLASMA [place] [address] Performing Lab: [facility] [place] [place] [address] COMPREHE MAGNESIUM 2.3 1.6 - 2.6 06/24 Specimen Ty pe: PLASMA [place] NSIVE [MASS/VOLU /2021 Comment: Can cellation reported to: Rajni Giraldo RN on 06/24/22@2003 by el. Test result cancelled due to hemolysis interference in sample. IS [facility] METABOLI ME] IN Ordering Provi maria: JAYDE MENDOZA SERUM OR Report Release d Date/Time: Jun 24, 2022 06:55 PM PANEL+MG PLASMA Reporting Lab: [facility] [address] [facility] [address] Performing Lab: [facility] [address] [facility] [address] COMPREHE ANION GAP 8 5 - 15 06/24 Specimen Type : PLASMA [place] NSIVE IN SERUM /2021 Comment: Cance llation reported to: Rajni Giraldo RN on 06/24/22@2003 by el. Test result cancelled due to hemolysis interference in sample. IS [facility] METABOLI OR PLASMA Ordering Pro vider: JAYDE MENDOZA Report Released Date/Time: Jun 24, 2022 06:55 PM PANEL+MG Reporting Lab: [facility] [place] [address] Performing Lab: [facility] [address] [facility] [address] COMPREHE ALKALINE 56 40 - 150 06/24 Specimen Type : PLASMA [place] NSIVE PHOSPHATAS /2021 Comment: Can cellation reported to: Rajni Giraldo RN on 06/24/22@2003 by el. Test result cancelled due to hemolysis interference in sample. IS [facility] METABOLI E Ordering Provi maria: JAYDE MENDOZA [ENZYMATIC Report Relea sed Date/Time: Jun 24, 2022 06:55 PM PANEL+MG ACTIVITY/V Reporting L ab: [facility] O[facility]] IN [address] [facility] [address] SERUM OR Performing La b: [facility] PLASMA [address] [facility] [address] COMPREHE ALANINE 20 <55 - 55 06/24 Specimen Type: PLASMA [place] NSIVE AMINOTRANS /2021 Comment: Can cellation reported to: Rajni Giraldo RN on 06/24/22@2003 by el. Test result cancelled due to hemolysis interference in sample. [facility] MET[facility]OLI FERASE Ordering Provi maria: JAYDE MENDOZA [ENZYMATIC Report Relea sed Date/Time: Jun 24, 2022 06:55 PM PANEL+MG ACTIVITY/V Reporting L ab: [facility] OLUME] IN [facility] [address] SERUM OR Performing Lab : [facility] [address] [facility] [address] COMPREHE ASPARTATE canc <34 - 34 06/24 Specimen Typ e: PLASMA [place] NSIVE AMINOTRANS /2021 Comment: Can cellation reported to: Rajni Giraldo RN on 06/24/22@2003 by el. Test result cancelled due to hemolysis interference in sample. [place] [facility] [place] FERASE Ordering Provi maria: JAYDE MENDOZA [ENZYMATIC Report Relea sed Date/Time: Jun 24, 2022 06:55 PM PANEL+MG ACTIVITY/V Reporting L ab: [facility] OLUME] IN [facility] [address] SERUM OR Performing Lab : [facility] [address] [facility] [address] COMPREHE GLOMERULAR 58 60 06/24 L Specimen Typ e: PLASMA [place] NSIVE FILTRATION /2021 Comment: Can cellation reported to: Rajni Giraldo RN on 06/24/22@2003 by el. Test result cancelled due to hemolysis interference in sample. [place] [facility] [place] RATE/1.73 Ordering Pro vider: JAYDE MENDOZA SQ Report Released Date/Time: Jun 24, 2022 06:55 PM PANEL+MG M.PREDICTE Reporting L ab: [facility] HCS D [VOLUME [facility] [address] RATE/AREA] Performing L ab: [facility] HCS IN SERUM, [facility] [address] PLASMA OR BLOOD BY CREATININE -BASED FORMULA (CKD-EPI) COMPREHE CREATININE 1.2 0.7 - 1.2 05/15 Specimen T ype: PL[place]MA [place] NSIVE [MASS/VOLU /2021 No comment en tered. [place] [facility] [place]] IN Ordering Provi maria: ROSY FAITH SERUM OR Report Release d Date/Time: April 11, 2022 12:04 PM PANEL+MG PLASMA Reporting Lab: [facility] [address] [facility] [address] Performing Lab: [facility] [address] COMPREHE UREA 25 8 - 26 05/15 Specimen Type: PLASMA [place] NSIVE No comment ente red. IS [facility] METABOLI [MASS/VOLU Ordering Pr ovider: ROSY FAITH] IN Report Released Date/Time: April 11, 2022 12:04 PM PANEL+MG SERUM OR Reporting Lab : [facility] [address] [facility] [address] Performing Lab: [facility] [address] [facility] [address] COMPREHE GLUCOSE 105 74 - 100 05/15 H Specimen Type: PLASMA [place] NSIVE [MASS/VOLU /2021 No comment en tered. IS [facility] METABOLI ME] IN Ordering Provi maria: ROSY FAITH SERUM OR Report Release d Date/Time: April 11, 2022 12:04 PM PANEL+MG PLASMA Reporting Lab: [facility] [address] [facility] [address] Performing Lab: [facility] [address] [facility] [address] COMPREHE SODIUM 139 136 - 145 05/15 Specimen Type : PLASMA [place] NSIVE [MOLES/VOL No comment en tered. IS [facility] METABOLI UME] IN Ordering Provi maria: ROSY FAITH SERUM OR Report Release d Date/Time: April 11, 2022 12:04 PM PANEL+MG PLASMA Reporting Lab: [facility] [address] [facility] [address] Performing Lab: [facility] [address] [facility] [address] COMPREHE POTASSIUM 4.7 3.5 - 5.1 05/15 Specimen Ty pe: PLASMA [place] NSIVE [MOLES/VOL /2021 No comment en tered. IS [facility] METABOLI UME] IN Ordering Provi maria: ROSY FAITH SERUM OR Report Release d Date/Time: April 11, 2022 12:04 PM PANEL+MG PLASMA Reporting Lab: [facility] [address] [facility] [address] Performing Lab: [facility] [address] [facility] [address] COMPREHE CHLORIDE 104 98 - 107 05/15 Specimen Type : PLASMA [place] NSIVE [MOLES/VOL /2021 No comment en tered. IS [facility] METABOLI UME] IN Ordering Provi maria: ROSY FAITH SERUM OR Report Release d Date/Time: April 11, 2022 12:04 PM PANEL+MG PLASMA Reporting Lab: [facility] [address] [facility] [address] Performing Lab: [facility] [address] [facility] [address] COMPREHE CARBON 26 - 05/15 Specimen Type: [place]MA [place] NSIVE No comment ente red. [place] [facility] [place] TOTAL Ordering Provi maria: ROSY FAITH [MOLES/VOL Report Relea sed Date/Time: April 11, 2022 12:04 PM PANEL+MG UME] IN Reporting Lab: [facility] SERUM OR [facility] [address] PLASMA Performing Lab: [facility] [address] [facility] [address] COMPREHE CALCIUM 9.5 8.4 - 10.2 05/15 Specimen Typ e: PLASMA [place] NSIVE [MASS/VOLU /2021 No comment en tered. IS [facility] METABOLI ME] IN Ordering Provi maria: ROSY FAITH SERUM OR Report Release d Date/Time: April 11, 2022 12:04 PM PANEL+MG PLASMA Reporting Lab: [facility] [address] [facility] [address] Performing Lab: [facility] [address] COMPREHE PROTEIN 7.2 6.0 - 8.3 05/15 Specimen Type : PLASMA [place] NSIVE [MASS/VOLU No comment en tered. IS [facility] METABOLI ME] IN Ordering Provi maria: ROSY FAITH SERUM OR Report Release d Date/Time: April 11, 2022 12:04 PM PANEL+MG PLASMA Reporting Lab: [facility] [address] [facility] [address] Performing Lab: [facility] [address] [facility] [address] COMPREHE ALBUMIN 4.2 3.5 - 5.2 05/15 Specimen Type : PL[place]MA [place] NSIVE [MASS/VOLU /2021 No comment en tered. [place] [facility] [place]] IN Ordering Provi maria: ROSY FAITH SERUM OR Report Release d Date/Time: April 11, 2022 12:04 PM PANEL+MG PLASMA Reporting Lab: [facility] [address] [facility] [address] Performing Lab: [facility] [address] [facility] [address] COMPREHE BILIRUBIN. 0.5 0.2 - 1.2 05/15 Specimen T ype: PLASMA [place] NSIVE TOTAL /2021 No comment enter ed. IS [facility] METABOLI [MASS/VOLU Ordering Pr ovider: ROSY FAITH ME] IN Report Released Date/Time: April 11, 2022 12:04 PM PANEL+MG SERUM OR Reporting Lab : [facility] [address] [facility] [address] Performing Lab: [facility] [address] [facility] [address] COMPREHE MAGNESIUM 1.8 1.6 - 2.6 05/15 Specimen Ty pe: PLASMA [place] NSIVE [MASS/VOLU /2021 No comment en tered. IS [facility] METABOLI ME] IN Ordering Provi maria: ROSY FAITH SERUM OR Report Release d Date/Time: April 11, 2022 12:04 PM PANEL+MG PLASMA Reporting Lab: [facility] [address] [facility] [address] Performing Lab: [facility] [address] [facility] [address] COMPREHE ANION GAP 9 5 - 15 05/15 Specimen Type : PLASMA [place] NSIVE IN SERUM /2021 No comment ente red. IS [facility] METABOLI OR PLASMA Ordering Pro vider: ROSY FAITH Report Released Date/Time: April 11, 2022 12:04 PM PANEL+MG Reporting Lab: [facility] [address] [facility] [address] Performing Lab: [facility] [address] [facility] [address] COMPREHE ALKALINE 55 40 - 150 05/15 Specimen Type : PLASMA [place] NSIVE PHOSPHATAS /2021 No comment en tered. IS [facility] METABOLI E Ordering Provi maria: ROSY FAITH [ENZYMATIC Report Relea sed Date/Time: April 11, 2022 12:04 PM PANEL+MG ACTIVITY/V Reporting L ab: [facility] OLUME] IN [facility] [address] SERUM OR Performing Lab : [facility] [address] [facility] [address] COMPREHE ALANINE 19 <55 - 55 05/15 Specimen Type: PLASMA [place] NSIVE AMINOTRANS No comment en tered. IS [facility] METABOLI FERASE Ordering Provi maria: ROSY FAITH [ENZYMATIC Report Relea sed Date/Time: April 11, 2022 12:04 PM PANEL+MG ACTIVITY/V Reporting L ab: [facility] HCS OLUME] IN [facility] [address] SERUM OR Performing Lab : [facility] [address] [facility] [address] COMPREHE ASPARTATE 28 <34 - 34 05/15 Specimen Typ e: PLASMA [place] NSIVE AMINOTRANS [place] comment [place]red. [place] [facility] [place] FERASE Ordering Provi maria: ROSY FAITH [ENZYMATIC Report Relea sed Date/Time: April 11, 2022 12:04 PM PANEL+MG ACTIVITY/V Reporting L ab: [facility] O[facility]] IN [facility] [address] SERUM OR Performing Lab : [facility] [address] [facility] [address] COMPREHE CREAT 63 60 05/15 Specimen Type: PLASMA [place] NSIVE EGFR(CKD-E No comment en tered. IS [facility] METABOLI PI) Ordering Provi maria: ROSY FAITH Report Released Date/Time: April 11, 2022 12:04 PM PANEL+MG Reporting Lab: [facility] [address] [facility] [address] Performing Lab: [facility] [address] [facility] [address] TSH THYROTROPI 3.03 0.35 - 05/15 Specimen Type : PLASMA [place] W/REFLEX N 4.94 [address] ente red. IS [facility] TO FREE [UNITS/VOL Ordering Pro vider: ROSY FAITH T4 UME] IN Report Released Date/Time: April 11, 2022 12:04 PM SERUM OR Reporting Lab: [facility] [address] [facility] [address] Performing Lab: [facility] [address] [facility] [address] Vital Signs Combined list of inpatient and outpatient Vital Signs from Department of Defense and Veterans Affairs, ranging from 12 months to all on record, depending upon the facility. Vital Sign Value Date Comments Source SYSTOLIC BLOOD PRESSURE 132 06/25/2022 01:05:[address] [place] [facility] DIASTOLIC BLOOD PRESSURE 85 06/25/2022 01:05:00 [facility] PULSE OXIMETRY 94% 06/25/2022 01:05:00 [place] [facility] TEMPERATURE 98.2 06/25/2022 01[facility]05:00 [place] [facility] PULSE 59 06/25/2022 01:05:00 [place] [facility] SYSTOLIC BLOOD PRESSURE 99 06/24/2022 18:00:00 [place] [facility] DIASTOLIC BLOOD PRESSURE 64 06/24/2022 18:00:00 [place] [facility] PAIN 8 06/24/2022 18:00:00 [place] [facility] TEMPERATURE 97.5 06/24/2022 18:00:00 [place] [facility] PULSE 69 06/24/2022 18:00:00 [place] [facility] RESPIRATION 15 06/24/2022 18:00:00 [place] [facility] SYSTOLIC BLOOD PRESSURE 120 05/15/2022 12:50:[address] [place] [facility] DIASTOLIC BLOOD PRESSURE 77 05/15/2022 12:50:[address] [place] [facility] PULSE OXIMETRY 94% 05/15/2022 12:50:41 [place] [facility] WEIGHT 123.9 05/15/2022 12:50:41 [place] [facility] BMI 23kg/m2 05/15/2022 12:50:41 [place] [facility] PAIN 0 05/15/2022 12:50:41 [place] [facility] HEIGHT 61.811 05/15/2022 12:50:41 [place] [facility] TEMPERATURE 99 05/15/2022 12:50:41 [place] [facility] PULSE 63 05/15/2022 12:50:41 [place] [facility] RESPIRATION 16 05/15/2022 12:50:41 [place] [facility] SYSTOLIC BLOOD PRESSURE 131 04/12/2022 08:13:02 [place] [facility] DIASTOLIC BLOOD PRESSURE 82 04/12/2022 08:13:[address] [place] [facility] PULSE OXIMETRY 93% 04/12/2022 08:13:02 [place] [facility] WEIGHT 122.1 04/12/2022 08:13:02 [place] [facility] BMI 22kg/m2 04/12/2022 08:13:02 [place] [facility] PAIN 0 04/12/2022 08:13:02 [place] [facility] TEMPERATURE 98.5 04/12/2022 08:13:02 [place] [facility] PULSE 100 04/12/2022 08:13:02 [place] [facility] RESPIRATION 18 04/12/2022 08:13:02 [place] [facility] SYSTOLIC BLOOD PRESSURE 135 04/10/2022 10:58:[address] [place] [facility] DIASTOLIC BLOOD PRESSURE 84 04/10/2022 10:58:06 [facility] PULSE OXIMETRY 96% 04/10/2022 10:58:06 [place] [facility] WEIGHT 120.9 04/10/2022 10:58:06 [place] [facility] BMI 22kg/m2 04/10/2022 10:58:06 [place] [facility] TEMPERATURE 98.7 04/10/2022 10:58:06 [place] [facility] PULSE 76 04/10/2022 10:58:06 [place] [facility] [facility] RESPIRATION 20 04/10/2022 10:58:06 [place] [facility] Encounters Combined list of: 1) Encounters from Department of Veterans Affairs facilities going back up to the last 18 months, not all VA inpatient encounters are included; 2) Encounters from the Department of Defense facilities going back up to 280 months. Location Location Encounter Encounter Reason Attending ADM DC Stat us Disposition Source Details Type Number For Provider Date Date Visit ADM 20983-7.61 Diagnos JODI ZAIDI 01/12 [place] SAR[place]2 [id number] is: [place] [facility] A 30MCG/0.3M 11 ICD-10- CBOC L 1ST CM Z23 Encount er for immuniz ation<b r/>with Provide r Comment s: Encount er for Immuniz ation OFFICE O/P 38562-8.61 Diagnos [place] 01/12 [place] EST MOD [id number] is: [place] [facility] [facility] 30-39 MIN ICD-10- HCS CM M05.9 Rheumat oid arthrit is with rheumat oid factor, unspeci fied
with Provide r Comment s: Seropos itive Rheumat oid arthrit is ADM 91357-5 Diagnos JHONNY 01/31 [place] SAR[place]OV[place] [id number] is: ,LAUREN [place] [facility] [facility] 30MCG/0.3M ICD-10- M HCS L 2ND CM Z23 Encount er for immuniz ation<b r/>with Provide r Comment s: Encount er for Immuniz ation Outpatient 88018-203/19 [place] Encounter [id number] [facility] OFFICE O/P Diagnos [place], 03/20 [place] EST MOD [id number] is: [place]Y [place] 30-39 MIN ICD-10- HCS CM L40.50 Arthrop athic psorias is, unspeci fied
with Provide r Comment s: Psoriat ic arthrit is OFFICE O/P Diagnos [facility], 06/01 [place] EST MOD [id number] is: RRY A [place] 30-39 MIN ICD-10- HCS CM M06.9 Rheumat oid arthrit is, unspeci fied
with Provide r Comment s: Seropos itive rheumat oid arthrit is (SCT [id number] 05) Outpatient 83391-2.06/01 [place] Encounter [id number] [facility] OFFICE O/P Diagnos MARYELLEN LEON 06/01 [place] EST LOW [id number] is: H [facility] [facility] 20-29 MIN ICD-10- HCS CM I25.10 Athscl heart disease of [place] coronar y artery w/o ang pctrs<b r/>with Provide r Comment s: CAD - Coronar y artery disease (SCT [id number]) Outpatient 48051-4 Yasmeen CHASE 06/13 [place] Encounter [id number] ERRY [facility] OFFICE O/P Diagnos [place], 06/19 [place] EST MOD [id number] is: RRY [place] 30-39 MIN ICD-10- HCS CM M06.9 Rheumat oid arthrit is, unspeci fied
with Provide r Comment s: Seropos itive rheumat oid arthrit is ([facility] [place] [id number] 05) Outpatient 51584-2.61 06/19 [place] Encounter [id number] /[address] [facility] OFFICE O/P 75717-7.61 Diagnos SCHEBARBIER,R 07/11 [place] EST MOD [id number] is: H[place]EN [place] [facility] 30-39 MIN ICD-10- HCS CM H25.13 Age-rel ated nuclear catarac t, bilater al
with Provide r Comment s: Age-rel ated nuclear catarac t, bilater al Outpatient 23044-3.61 07/31 [place] Encounter [id number] [facility] OFFICE O/P 48939-1 Diagnos [place],JE 09/28 [place] EST MOD [id number] is: RRY [place] 30-39 MIN ICD-10- HCS CM M06.9 Rheumat oid arthrit is, unspeci fied
with Provide r Comment s: Seropos itive rheumat oid arthrit is ([facility] [place] [id number] ) ADM 69196-6.61 Diagnos HUDLOW,TRISTON 09/28 [place] SAR[place] [id number] is: ECCA [facility] [facility] 30MCG/0.3M ICD-10- HCS L BST CM Z23 Encount er for immuniz ation<b r/>with Provide r Comment s: Encount er for Immuniz ation Outpatient 59476-6.61 11/17 [place] En[place] [id number] /2022 [place] [facility] Outpatient 41615-0.61 11/20 [place] En[place] [id number] [facility] [facility] Outpatient 80602-7.61 11/20 [place] En[place] [id number] [facility] Outpatient 46993-1.61 Yasmeen CHASE 11/20 [place] En[place] [id number] ERR [facility] Outpatient 20463-2.61 12/06 [place] Encounter [id number] /2021 [facility] EMERGENCY 53140-5.61 Diagnos 01/07 [place] DEPT VISIT [id number] is: /2021 [facility] ICD-10- HCS CM K02.9 Dental caries, unspeci fied
with Provide r Comment s: Dental Caries, unspeci fied OFFICE O/P 90021-5.61 Diagnos [place], 01/11 [place] EST MOD [id number] is: RRY A [facility] 30-39 MIN ICD-10- HCS CM M06.9 Rheumat oid arthrit is, unspeci fied
with Provide r Comment s: Seropos itive rheumat oid arthrit is ([facility] [place] [id number] 05) Outpatient 04578-1.61 04/ [place] Encounter [id number] /2021 [facility] Outpatient 32742-9.61 CHRISTLE,T 02/17 [place] Encounter [id number] ERRY [facility] Outpatient 82783-9.61 CHRISTLE,T 02/18 [place] Encounter [id number] ERR [facility] Outpatient 02469-0.61 02/21 [place] Encounter [id number] /2021 [facility] Outpatient 10418-2.61 02/26 [place] Encounter [id number] /2021 [facility] OFFICE O/P 66176-8.61 Diagnos LEON03/05 [place] EST LOW [id number] is: [facility] 20-29 MIN ICD-10- HCS CM I47.1 Suprave ntricul ar tachyca rdia
with Provide r Comment s: Multifo sergio atrial tachyca rdia (SNOMED CT [id number] 0) ECG 54798-7.61 Diagnos LEON,MARYELLEN 03/12 [place] MONIT/REPR [id number] is: [facility] T UP TO 48 ICD-10- HCS HRS CM Z13.6 Encount er for screeni ng for cardiov ascular disorde rs
with Provide r Comment s: Encount er for Screeni ng for Cardiov ascular Disorde rs Outpatient 20882-2 05/ [place] En[place] [id number] /2022 [facility] [place] 50101-3 05/ [place] Encounter [id number] /[address] [facility] Outpatient 35770-0 RENA,T 03/19 [place] Encounter [id number] ERRY /2021 [facility] [place] 09369-9 05/10 [place] En[place] [id number] /2021 [facility] [place] 66025-0 05/ [place] Encounter [id number] /2021 [facility] [place] 51810-6 05/ [place] Encounter [id number] /2021 [facility] EXT 07053-1.61 Diagnos KIKIBRADL 04/04 [place] ECG>7D<15D [id number] is: EY A [facility] RECORDING ICD-10- HCS CM I48.92 Unspeci fied atrial flutter
Provide r Comment s: Unspeci fied Atrial Flutter Outpatient 34107-904/04 [place] Encounter [id number] /2021 [facility] HCS ELECTROCAR 11478-6 Diagnos AGUILAR,SE 04/10 [place] DIOGRAM [id number] is: LMA D [facility] COMPLETE ICD-10- HCS CM Z13.6 Encount er for screeni ng for cardiov ascular disorde rs
with Provide r Comment s: Encount er for Screeni ng for Cardiov ascular Disorde rs OFFICE 02285-3 Diagnos AB MARCELL 04/10 [place] CONSULTATI [id number] is: BIE L [facility] ON ICD-10- HCS CM I47.1 Suprave ntricul ar tachyca rdia
with Provide r Comment s: Multifo sergio atrial tachyca rdia (SCT [id number] 0) Outpatient 23939-704/10 [place] Encounter [id number] [facility] OFF[facility]P 77325-2 Diagnos MARYELLEN LEON 04/12 [place] EST SF [id number] is: H /2021 [place] [facility] 10-19 MIN ICD-10- HCS CM I48.0 Paroxys mal atrial fibrill ation<b r/>with Provide r Comment s: Paroxys mal atrial fibrill ation (SCT [id number] 02) [place] [address]-4 Diagnos ANKIT,KR 04/23 [place] DIG [id number] is: ISTIN Y /2021 [place] [facility] ASSMT&MGMT ICD-10- HCS 21+ CM Z79.01 [facility] (curren t) use of anticoa gulants
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
with Provide r Comment s: Other Hemorrh oids Outpatient 56653-2.61 05/07 [place] En[place] [id number] [facility] Outpatient 70853-0 MAYELA MEDEL 05/08 [place] Encounter [id number] [place] [facility] [place] 31325-0.61 05/09 [place] En[place] [id number] [facility] Outpatient 80798-805/15 [place] En[place] [id number] [facility] [place] 07963-3.05/15 [place] En[place] [id number] [facility] ELECTROCAR 93526-6 Diagnos CHARLES LOZOYAO 05/15 [place] DIOGRAM [id number] is: REL [facility] COMPLETE ICD-10- HCS CM Z13.6 Encount er for screeni ng for cardiov ascular disorde rs
with Provide r Comment s: Encount er for Screeni ng for Cardiov ascular Disorde rs HEMOGLOBIN 84909-3.61 Diagnos ILIANA, 05/15 [place] [id number] is: OBI K /2021 [place] ICD-10- HCS CM I48.0 Paroxys mal atrial fibrill ation<b r/>with Provide r Comment s: Paroxys mal atrial fibrill ation ([facility] [place] [id number] 02) OFFICE O/P 40300-661 Diagnos MARCELL,AB 05/15 [place] EST MOD [id number] is: BIE L [place] 30-39 MIN ICD-10- HCS CM I47.1 Suprave ntricul ar tachyca rdia
with Provide r Comment s: Multifo sergio atrial tachyca rdia ([facility] [id number]) Outpatient [id number] MIGUEL ÁNGEL 06/01 [place] Encounter [id number] ERICKSON RODRIGUEZ /2021 [place] [facility] 97562-4.61 SA VU 06/19 [place] Encounter [id number] RA R /2021 [place] [facility] [place] [id number] 06/21 [place] Encounter [id number] [facility] Outpatient [id number] SYSTEM,CIS 06/24 [place] Encounter [id number] -ARK /2021 [facility] EMERGENCY 30023-8.61 Diagnos STANISLAW MENDOZA 06/24 [place] DEPT VISIT [id number] is: D [facility] ICD-10- [facility] CM R62.7 Adult failure to thrive< br/>wit h Provide r Comment s: Adult Failure to Thrive Outpatient [id number] 06/24 [place] Encounter [id number] /2021 [facility] Inpatient 94453-5.61 Admit LISA HILLS 06/24 [place] Encounter [id number] Reason: SEIN ISSAK /2021 [facility] REC DC [facility]<b r/> Inpatient [id number] 06/25 06/25 [place] Encounter [id number] /2021 [facility] Inpatient 74277-4.61 06/25 06/25 [place] Encounter [id number] /2021 [facility] Inpatient [id number] 06/25 06/25 [place] Encounter [id number] /2021 [facility] Social History Combined list of available smoking, tobacco, and other social history [facility]. Social History Type Response Date Comment Source Tobacco smoking [facility] NHIS [place] of tobacco [place] QU[place] 1 TO < 03/05/2022 [facility] use 5 YRS History of tobacco [place]-TO[place]ACCO NEVER USED 06/01/2021 [facility] use History of tobacco [place]-TO[place]ACCO QUIT < 1 12/31/[address] [place] [facility] use YEAR History of tobacco VA-TOBACCO FORMER USER 03/23/2019 [facility] use History of tobacco CURRENT TOBACCO USER 06/10/[address] [facility] use History of tobacco INPT TOBACCO COUNSELING 05/10/2018 [facility] use History of tobacco FORMER TOBACCO USE <1Y 08/29/2017 [facility] use History of tobacco INPT TOBACCO COUNSELING 05/26/2017 [facility] use History of tobacco INPT TOBACCO COUNSELING 05/03/2017 [facility] use History of tobacco FORMER TOBACCO USE <1Y 09/18/2016 [facility] use History of tobacco INPT TOBACCO USE - PT 08/10/2016 [facility] use REFUSED History of tobacco INPT TOBACCO COUNSELING 08/01/2016 [facility] use History of tobacco CURRENT TOBACCO USER 02/08/2015 [facility] use History of tobacco CURRENT TOBACCO USER 11/29/2013 [facility] use History of tobacco PATIENT IS TOBACCO USER 11/26/2013 [facility] use History of tobacco CURRENT TOBACCO USER 11/27/2012 [facility] use History of tobacco CURRENT TOBACCO USER 12/27/2011 [facility] use History of tobacco CURRENT TOBACCO USER 01/22/2011 [facility] use History of tobacco CURRENT TOBACCO USER 03/13/2010 [facility] use Plan of Care List of future care activities from [facility] facilities. Additional future care activities may be listed in the Assessment and Plan section. Date/Time Care Activity Care Activity Detail Facility 07/12/2022 AMBULATORY - SURGERY AMBULATORY - SURGERY [facility] Advance Directives List of completed, amended, or rescinded Advance Directives on record at [facility] facilities. An actual copy of the Directive is not included. Date Advance Directive Provider Source 02/25/2018 ADVANCE DIRECTIVE AURORA MORALES [facility] 02/24/2018 ADVANCE DIRECTIVE DISCUSSION AURORA MORALES [facility] 05/26/2017 CLINICAL WARNING MAGO CONTRERAS [facility] 05/03/2017 CLINICAL WARNING SARIAH ENGLE [facility] 08/10/2016 CLINICAL WARNING ISABEL BARCENAS [facility] 08/02/2016 CLINICAL WARNING AURORA ALMAZAN [facility]
--- OUTSIDE RECORDS SUMMARY | 2022-06-25 19:40 | XMS_ITS | Encounter Summary ---
:1950 Author Organization [facility] Address [address] [place] [address] Support Name Relationship Address Phone MADELIN MANTILLA Unavailable [phone] [place] [address] MADELIN MANTILLA Unavailable [address] [phone] [place] [address] DHAVAL MANTILLA Unavailable [address] [place] [address] Insurance Providers: All historical and current Section [...] MEDICARE MEDICARE PART Jul 18, PART B [id number] ANNALEE BRYANIENT (WNR) (M) B 2014A [phone] ,REGI MEDICARE MEDICARE PART Apr 17, PART A [id number] ANNALEE BRYANIENT (WNR) (M) A 2012A [phone] ,REGI Selected Encounter This section includes the information on record at ME for the Encounter. Date/Time Encounter Type Encounter Description Reason Provider Source Nov 17, 2021 12:00 Outpatient Encounter EVENT (HISTORICAL) AM IHE [...] Nov 20, 2021 06:18 PM AMBULATORY - NONE [facility] Jan 07, 2022 08:46 AM AMBULATORY - MEDICINE [facility] Jan 11, 2022 09:00 AM AMBULATORY - MEDICINE [facility] Jan 11, 2022 10:00 AM AMBULATORY - MEDICINE [facility] Feb 17, 2022 08:09 PM AMBULATORY - NONE [facility] Mar 05, 2022 12:30 PM AMBULATORY - NONE [facility] Mar 05, 2022 01:30 PM AMBULATORY - MEDICINE [facility] Mar 12, 2022 11:00 AM AMBULATORY - MEDICINE [facility] March 19, 2022 06:03 PM AMBULATORY - NONE [facility] April 10, 2022 11:00 AM AMBULATORY - MEDICINE [facility] April 10, 2022 11:30 AM AMBULATORY - MEDICINE [facility] April 12, 2022 08:30 AM AMBULATORY - MEDICINE [facility] May 07, 2022 09:00 AM AMBULATORY - MEDICINE [facility] May 15, 2022 10:30 AM AMBULATORY - MEDICINE [facility] May 15, 2022 10:40 AM AMBULATORY - MEDICINE [facility] May 15, 2022 11:30 AM AMBULATORY - MEDICINE [facility] May 15, 2022 01:00 PM AMBULATORY - MEDICINE [facility] May 15, 2022 01:45 PM AMBULATORY - NONE [facility] Social History: Smoking Status (Most current) and [...] 2021 02:00 PM VA-TOBACCO [facility] USED [facility] Tobacco Use History This section includes a history of the smoking, or tobacco- related health factors, that were collected on or before the date of the Encounter. The data comes from the ME facility where the Encounter took place. Date/Time Smoking Status/Tobacco Use Comment Katherine gillis Dec 31, 2019 10:54 AM VA-TOBACCO FORMER USER [facility] Dec 31, 2019 10:54 AM ME-TOBACCO QUIT < 1 YEAR [facility] March 23, 2019 09:53 AM VA-TOBACCO FORMER USER [facility] March 23, 2019 09:53 AM VA-TOBACCO QUIT < 1 YEAR [place] [facility] Jun 10, 2018 10:00 AM CURRENT TOBACCO USER [facility] May 10, 2018 07:27 PM INPT TOBACCO COUNSELING [place] [facility] [facility] May 10, 2018 07:27 PM INPT TOBACCO USER [facility] Aug 29, 2017 09:55 AM FORMER TOBACCO USE <1Y [facility] May 26, 2017 10:51 PM INPT TOBACCO COUNSELING [place] [facility] May 26, 2017 10:51 PM INPT TOBACCO USER [place] [facility] May 03, 2017 09:34 PM INPT TOBACCO COUNSELING [place] [facility] May 03, 2017 09:34 PM INPT TOBACCO USER [facility] Sep 18, 2016 01:36 PM FORMER TOBACCO USE <1Y [facility] Aug 10, 2016 03:54 PM INPT TOBACCO USE - PT REFUSED [facility] Aug 01, 2016 06:48 PM [place]AC[place] [facility] Aug 01, 2016 06:48 PM INPT TOBACCO USER [facility] [facility] Feb 08, 2015 09:57 AM CURRENT [facility]ACCO [facility] Nov 29, 2013 10:37 AM CURRENT [facility] Nov 26, 2013 11:09 AM PATIENT IS TOBACCO USER [place] [facility] Nov 27, 2012 12:12 PM CURRENT TOBACCO USER [facility] Dec 27, 2011 09:44 AM CURRENT TOBACCO USER [facility] Jan 22, 2011 02:38 PM CURRENT TOBACCO USER [facility] Mar 13, 2010 12:48 PM CUR[facility]AC[facility] Advance Directives: All historical and current [...]
--- OUTSIDE RECORDS SUMMARY | 2022-06-25 19:40 | XMS_ITS | Encounter Summary ---
:1950 Author Organization [facility] Address [address] [place] [address] Support Name Relationship Address Phone MADELIN MANTILLA Unavailable [phone] [place] [address] MADELIN MANTILLA Unavailable [phone] [place] [address] DHAVAL MANTILLA Unavailable [address] [place] [address] Insurance Providers: All historical and current Section [...] MEDICARE MEDICARE PART Jul 18, PART B [id number] 800 ANNALEE BRYANIENT (WNR) (M) B 2014A [phone] ,REGI MEDICARE MEDICARE PART Apr 17, PART A [id number] 800 ANNALEE Cardenas ATIENT (WNR) (M) A 2012A [id number] ,REGI Selected Encounter This section includes the information on record at ID for the Encounter. 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 Date/Time Primary/Secondary Diagnosis Name Provider Source Diagnosis Apr 24, 2022 PRIMARY group home (current) TATY PHAM [place] 08:27 AM use of IN Y [facility] anticoagulants Apr 24, 2022 SECONDARY Unspecified atrial TATY PHAM ID 08:27 AM fibrillation IN Y [facility] Plan of Treatment: Future Appointments (+ 6 months) and Future Tests (+/- 45 days) The Plan of Treatment section includes future care activities for the patient from all ID treatmentfacilities. This section includes future appointments and future orders which are active, pending orscheduled.Future Appointments This section includes appointments that were scheduled to occur 6 months from the date of the Encounter, up to a maximum of 20 appointments. The data comes from all ID treatment [facility]. Appointment Date/Time Appointment Type Appointment Facili ty Name May 07, 2022 09:00 AM AMBULATORY - MEDICINE [facility] May 15, 2022 10:30 AM AMBULATORY - MEDICINE [facility] May 15, 2022 10:40 AM AMBULATORY - MEDICINE [facility] May 15, 2022 11:30 AM AMBULATORY - MEDICINE [facility] May 15, 2022 01:00 PM AMBULATORY - MEDICINE [facility] May 15, 2022 01:45 PM AMBULATORY - NONE [facility] Jun 19, 2022 01:15 PM AMBULATORY - NONE [facility] Jun 24, 2022 05:53 PM AMBULATORY - MEDICINE [facility] Jul 12, 2022 09:20 AM AMBULATORY - SURGERY [facility] Jul 19, 2022 08:00 AM AMBULATORY - MEDICINE [facility] Jul 19, 2022 09:00 AM AMBULATORY - MEDICINE [facility] Active, Pending, and Scheduled Orders This section includes a listing of several types of active, pending, and scheduled orders, including clinic medications orders, diagnostic test orders, procedure orders and consult orders; where the start date of the order is 45 days before the date of the Encounter or 45 days after the date of the Encounter. The data comes from all [facility]. Test Date/Time Test Type Test Details Facility Name May 15, 2022 12:00 Laboratory - COVID-19 AND FLU/RSV DIAG [facility] AM Chemistry Order PANEL(CEPHEID) NASOPHARYNGEAL SWAB [...] Reference Range Comment May 15, 2022 10:57 [facility] TSH W/REFLEX TO FREE Spec imen Type: PLASMA AM T4 No comment enter ed. Ordering Provid er: ROSY FAITH Report Released Date/Time: April 11, 2022 12:04 PM Reporting Lab: [facility] [address] [facility] [id number] Performing Lab: [facility] [id number] TSH 3.03 0.35-4.94 May 15, 2022 [facility] COMPREHENSIVE METABOLIC Spec imen Type: PLASMA 10:57 AM PANEL+MG No comment enter ed. Ordering Provid er: ROSY FAITH Report Released Date/Time: April 11, 2022 12:04 PM Reporting Lab: [facility] [address] [facility] [id number] Performing Lab: [facility] [id number] CREATININE 1.2 0.7-1.2 UREA NITROGEN 25 8-26 [...] Comment Facility Mar 05, 2022 01:30 PM ID-TOBACCO FORMER USER [facility] Tobacco Use History This section includes a history of the smoking, or tobacco- related health factors, that were collected on or before the date of the Encounter. The data comes from the ID facility where the Encounter took place. Date/Time Smoking Status/Tobacco Use Comment Facil ity Mar 05, 2022 01:30 PM VA-TOBACCO QUIT 1 TO < 5 YRS [facility] Jun 01, 2021 02:00 PM VA-TOBACCO NEVER USED [place] [facility] Dec 31, 2019 10:54 AM VA-TOBACCO FORMER USER [facility] Dec 31, 2019 10:54 AM VA-TOBACCO QUIT < 1 YEAR [place] [facility] March 23, 2019 09:53 AM VA-TOBACCO FORMER USER [facility] March 23, 2019 09:53 AM VA-TOBACCO QUIT < 1 YEAR [facility] Jun 10, 2018 10:00 AM CURRENT TOBACCO USER [place] [facility] May 10, 2018 07:27 PM INPT TOBACCO COUNSELING [place] [facility] May 10, 2018 07:27 PM INPT TOBACCO USER [place] [facility] Aug 29, 2017 09:55 AM FORMER TOBACCO USE <1Y [facility] May 26, 2017 10:51 PM INPT TOBACCO COUNSELING [place] [facility] May 26, 2017 10:51 PM INPT TOBACCO US[place] [facility] May 03, 2017 09:34 PM INPT TOBACCO COUNSELING [place] [facility] May 03, 2017 09:34 PM INPT TOBACCO USER [place] [facility] Sep 18, 2016 01:36 PM FORMER TOBACCO USE <1Y [facility] Aug 10, 2016 03:54 PM INPT TOBACCO USE - PT REFUSED [facility] Aug 01, 2016 06:48 PM INPT TOBACCO COUNSELING [place] [facility] Aug 01, 2016 06:48 PM INPT TOBACCO USER [place] [facility] Feb 08, 2015 09:57 AM CURRENT TOBACCO USER [place] [facility] Nov 29, 2013 10:37 AM CURRENT TOBACCO USER [place] [facility] Nov 26, 2013 11:09 AM PATIENT IS TOBACCO USER [place] [facility] Nov 27, 2012 12:12 PM CURRENT TOBACCO USER [place] [facility] Dec 27, 2011 09:44 AM CURRENT TOBACCO USER [place] [facility] Jan 22, 2011 02:38 PM CURRENT TOBACCO USER [place] [facility] Mar 13, 2010 12:48 PM CURRENT TOBACCO USER [place] [facility] Advance Directives: All historical [...] Feb 25, 2018 ADVANCE DIRECTIVE AURORA MORALES [facility] Feb 24, 2018 ADVANCE DIRECTIVE DISCUSSION AURORA MORALES [facility] May 26, 2017 CLINICAL WARNING DIANEMAGO Nina [facility] May 03, 2017 CLINICAL WARNING SARIAH ENGLE [facility] Aug 10, 2016 CLINICAL WARNING ISABEL BARCENAS [facility] Aug 02, 2016 CLINICAL WARNING AURORA ALMAZAN Carla [facility] Radiology Reports: +/- 30 days of [...] the Encounter. The data comes from all ID treatment facilities. Date/Time Radiology Report Provider Source May 15, 2022 01:23 PM CHEST 2 VIEWS PA AND LAT: DARIEN HERNANDEZ [facility] REGI MANTILLA KRISTOFER [id number] -APR 28, 194 8 M Exm Date: MAY 15, 2022@13:23 Req Phys: ROSY FAITH Pat Loc: [facility] CARDIAC E P MARCELL 3D (Req Img Loc: MAIN X-RAY Service: Unknown (Case [id number] COMPLETE) CHEST 2 VIEWS PA AND LAT (R AD Detailed) CPT:39530 Reason for Study: cough, SOB x 2 months; evalua te for edema/infiltrate Clinical History: IS NOT under investigation for COVID-19 or is COVID-19 negative cough, SOB x 2 months Responsible provider name and phone number to notify for critical findings if other than user placing the order and pager listed below: User placing orders pager: [phone] LAST CREATININE 1.2 (05/15/22) Report Status: Verified Date Reported: MAY 15, 2022 Date Verified: MAY 15, 2022 [facility] E-Sig:/ES/DARIEN HERNANDEZ MD Report: CHEST 2 VIEWS [...] Primary Interpreting Staff: DARIEN HERNANDEZ MD, RADIOLOGIST ([facility]) /CDC Pathology Reports: +/- 30 days of [...] the Encounter. The data comes from all ID treatment facilities. Date/Time Pathology Report Provider Source May 08, 2022 06:46 PM LR SURGICAL PATHOLOGY REPORT: SARAH MEDEL [facility] LOCAL TITLE: LR SURGICAL PATHOLOGY REPORT STANDARD TITLE: PATHOLOGY REPORT DATE OF NOTE: MAY 08, 2022@18:46:34 ENTRY DATE: MAY 08, 2022@18:46:34 AUTHOR: SARAH MEDEL EXP COSIGNER: URGENCY: STATUS: COMPLETED $APHDR Reporting Lab: [facility] [CLIA# [id number]] [place] [address] - - - - - - - [...] Performing Laboratory: Surgical Pathology Report Performed By: [facility] [CLIA# [id number]] [place] [address] $FTR - - - - - - [...] - - REGI MANTILLA STANDARD FORM 515 ID:[id number] SEX:M :1950 AGE: 72 LOC: 1153 PCP: Preet Anderson MD /mikal/ SARAH MEDEL MD STAFF PATHOLOGIST, PATHOLOGY & LABORATORY MED SV C Signed: 05/08/2022 18:46 Encounter Notes: All associated encounter notes This section contains the clinical notes associated to the Encounter. Date/Time Encounter Note(s) Provider Source Apr 24, 2022 08:17 AM MEDICATION MGT CONSULT: MARIANA PHAM [facility] LOCAL TITLE: ANTICOAGULATION CLINIC CONSULT STANDARD TITLE: MEDICATION MGT CONSULT DATE OF NOTE: APR 24, 2022@08:17 ENTRY DATE: APR 24, 2022@08:17:13 AUTHOR: MARIANA PHAM EXP COSIGNER: URGENCY: STATUS: COMPLETED DOAC PERIOP - Anticoagulant: apixaban 5mg q12h - Indication(s): Afib - Relevant PMH: - NSTEMI 2018 - Prior major bleeds: no major bleeds per pt - h/o internal hemorrhoids - 02/2022 non-erosive gastritis, on PPI - h/o anemia w/Etoh abuse - Prior anticoagulants: none - Start date: 03/2022 - Anticipated duration: indefinite - [id number] = 3 (age, htn, CAD) - CHADS = 1 (htn) low risk - HASBLED = 3 (age, etoh, anemia) high risk S/O: ---- Obtained by chart review. Type of procedure: colonoscopy Date of procedure: 05/07/22 Bleed risk for procedure: Low Thromboembolic/Bleed Risk: see above Dashboard flags: none LABS ---- Age: 71 Weight: 122.1 lb [55.38 kg] (04/12/2022 08:13) [...] PLASMA ALT/SGPT 15 U/L Ref: <=5 5 A/P: ---- No enoxaparin bridging warranted with DOACs. If this procedure is conchita eduled and new instructions are needed OR changes in health (ie: clotting complications, stroke) occu r between now and the time of the procedure, anticoagulation clinic should be contacted. Anticoagulation should not be held if procedure is cancelled. GI PROCEDURES: LOW BLEED RISK (apixaban) & CrCl >25 (apix): - Do not take for 1 day before procedure OR the day of procedure. The last dose taken preoperatively is 2 days before the procedure. - If there are no major bleeding complications, resume 24 hours later (the day after the procedure) at the usual dose unless otherwise instructed by the proceduralist. -GI nursing team responsible for educating patient on recommendations at pre-op call. If there are questions or concerns about holding anticoagulation, patient should be referred to anticoagulation clinic at [phone], option 3. Time:15min /mikal/ MARIANA PHAM PHARMACIST Signed: 04/24/2022 08:28
== END 2022-06-18 00:12 | disposition home or self-care (01) ==
LOC: ED 06-18 00:11
PROVIDERS: Emergency Provider Internal Medicine
DX: S00.93XA Contusion of unspecified part of head, initial encounter (principal); W19.XXXA Unspecified fall, initial encounter
CPT/HCPCS: 70450; 96372; 99283; 99284; J1885

== ENCOUNTER 2022-06-18 09:11 | Emergency (ER) | payer OTHER, MEDICARE, SELFPAY ==
[2022-06-18] VITALS (7 sets, daily range): BP systolic 125–145; BP diastolic 84–101; PULSE 74–95; RESP 18; TEMP 37.1; O2SAT 89–96; BMI 23.8
--- NOTE | 2022-06-18 09:31 | CRLHL7_ITS ---
For Patients: As a result of the Century Cures Act, medical imaging exams and procedure reports are released immediately into your electronic medical record. You may view this report before your referring provider. If you have questions, please contact your health care provider. INDICATION: FALL AND HEMATOMA, HEAD INJURY, DEMENTIA COMPARISON: 06/17/2022 TECHNIQUE: A CT volumetric acquisition was performed of the brain without IV contrast. Please note that all CT scans at this facility use dose modulation, iterative reconstruction, and/or weight-based dosing when appropriate to reduce radiation dose to as low as reasonably achievable. FINDINGS: No intracranial hemorrhage, mass or mass effect. Incidental cavum septum et vergae. Mild generalized cortical atrophy and chronic white matter changes. Vascular calcifications. No fracture. Mild mucosal thickening inferior frontal sinuses. IMPRESSION: No intracranial hemorrhage. Please note that all CT scans at this facility use dose modulation, iterative reconstruction, and/or weight-based dosing when appropriate to reduce radiation dose to as low as reasonably achievable. Dictated by Luis Rock MD @ 06/18/2022 10:25:30 AM (Electronically Signed)
--- NOTE | 2022-06-18 09:31 | CRLHL7_ITS ---
For Patients: As a result of the Cures Act, medical imaging exams and procedure reports are released immediately into your electronic medical record. You may view this report before your referring provider. If you have questions, please contact your health care provider. INDICATION: Fall out of bed TECHNIQUE: CT cervical spine without contrast. COMPARISON: : None FINDINGS: Mildly displaced fracture of the right C5 lamina extending into the base of the spinous process. Left C5 lamina intact. No compression fracture. Multilevel degenerative disc disease and facet degeneration. Fusion across the C3-4 vertebral bodies. Normal C1-2 relationship. No cervical adenopathy. IMPRESSION: Fracture of the right C5 lamina extending into the base of the spinous process. Discussed with Dr. Rolon 10:30 a.m. 06/18/2022. Please note that all CT scans at this facility use dose modulation, iterative reconstruction, and/or weight-based dosing when appropriate to reduce radiation dose to as low as reasonably achievable. Dictated by Luis Rock MD @ 06/18/2022 10:33:54 AM (Electronically Signed)
--- NOTE | 2022-06-18 09:46 | ED.GENADULT ---
HPI - General Adult General Date Seen: 06/18/22 Chief complaint: Head Injury/Pain Stated complaint: numbness on hands and feet Time Seen by Provider: 06/18/22 09:14 Source: patient Mode of arrival: wheelchair Limitations: no limitations History of Present Illness HPI narrative: Patient is a 68 for old gentleman from home who was seen last night at approximately midnight for a fall. He was seen initially, because of possible alcohol on board was not giving anything for pain. At that point he was complaining he tells me a both both hands and feet bilateral pain with any sort of movement and altered sensation. He did not have this previous to his fall, he seemingly fell out of bed, landed on his head. He does have a bruise on the top of his head. He admits that he is a chronic alcoholic he drinks at least 4-6 oz of alcohol per day and has done that since he was born he tells me. On multiple medications [facility], but he tells me has been here before. He also has an issue he says with hemorrhoids, recent had a colonoscopy a month ago that was otherwise normal, but does have external hemorrhoids. He says they are bleeding slightly, Does smoke marijuana also daily, Denies any back pain, thoracic pain, lower back pain. Denies any problems with numbness and tingling with some over the lower rectal area. Or any problems with urination. Denies fevers chills or sweats, nausea vomiting abdominal pain, chest discomfort shortness of breath, Overall time course of these abnormality with his hands and his feet which she is here today for primarily he tells me has been greater than 10 hours. Reportedly by the nurse the CT scan that was done of his head last night by the other for ER physician was negative. Related Data Home Medications Medication Instructions Recorded Confirmed aspirin 325 mg tablet 325 mg PO DAILY 06/17/22 06/17/22 atorvastatin 80 mg tablet 80 mg PO QPM 06/17/22 06/17/22 fluticasone propionate 50 2 spray intranasal DAILY PRN 06/17/22 06/17/22 mcg/actuation nasal spray,suspension (24 Hour Allergy Relief) isosorbide mononitrate 30 mg 30 mg PO DAILY 06/17/22 06/17/22 tablet,extended release 24 hr lisinopril 10 1 tab PO DAILY 06/17/22 06/17/22 mg-hydrochlorothiazide 12.5 mg tablet loratadine 10 mg tablet 10 mg PO DAILY 06/17/22 06/17/22 (Allerclear) metoprolol tartrate 50 mg tablet 25 mg PO BID 06/17/22 06/17/22 (Lopressor) nitroglycerin 0.4 mg sublingual 0.4 mg sublingual Q5-15M PRN 06/17/22 06/17/22 tablet pantoprazole 20 mg tablet,delayed 20 mg PO DAILY 06/17/22 06/17/22 release amiodarone .ROUTE 06/18/22 apixaban 5 mg tablet 5 mg PO BID 06/18/22 06/18/22 Allergies Allergy/AdvReac Type Severity Reaction Status Date / Time No Known Drug Allergies Allergy Verified 06/17/22 23:09 Review of Systems Status of ROS: Reports: 10 or more systems reviewed and unremarkable except as noted in History and below PFSH [facility] Medical History Alcohol abuse Arteriosclerosis of coronary artery Atrial fibrillation CHF (congestive heart failure) Chronic kidney disease GERD (gastroesophageal reflux disease) Heart attack Hypertension Rheumatoid arteritis Surgical History H/O total knee replacement Hx of coronary angioplasty Social History Smoking Status: Current every day smoker What tobacco products do you use: cigarettes How often do you have a drink containing alcohol: 4 or more times a week How many standard drinks containing alcohol do you have on a typical day: 10 or more How often do you have six or more drinks on one occasion: Daily or almost daily AUDIT-C Alcohol total score: 12 Non-prescribed substance use: marijuana (any form) Exam Narrative: Exam Narrative: I find him somewhat of a disheveled presentation lying in room 5, his pupils are equal round reactive to light he has a little bit of what I would describe as scleral hyperemia he tracks normally with absence of nystagmus, his TMs are normal, bilaterally, mouth opening is normal his tongue appears normal a little bit glossy, cervical spine has decent range of motion of extension to 18 cm is flexion is within 8 cm, lateral flexion is 20? and rotation is 60? bilaterally and he is non tender to palpation over cervical spine. Midfacial there is no evidence of abnormality he has a hematoma over the top of his head, with some abrasions, hematomas approximately 5 x 5 cm. His chest is good air entry bilaterally there is no signs or spica rene distress, occasional wheezes are noted. Heart sounds no clicks murmurs or gallops, his abdomen is soft there is no guarding no past splenomegaly scaphoid noted. Pelvis normal stable to rocking, his extremities move normal. But any time I touches fingers his toes bilaterally he shouts out with pain. He tells me can feel them, but he clearly can feel them they are more hypersensitive then in sensitive. He tells me this extends up to his palms bilaterally and in feet bilaterally. More in a stocking glove type distribution. His pulses are normal there is overall muscle wasting but not excessively, and he is able to move all his extremities independently well. With the help with the nurses I rolled him on his side, his back palpates normal both thoracic and lumbar percussion is negative, he has fairly impressive external hemorrhoids, some which are thrombosed, with a little bit of blood on him, his rectal tone however is excellent, with no perianal abnormality of an sensation. is otherwise normal. Skin reveals no rashes, occasional petechiae are noted in the upper above his nipple line. [place] normal is upper lower extremities 5/5 bilaterally he has a little bit shaky, with an intention tremor, I suspect that this is more from alcohol reasoning. Const: Vital Signs, click to edit/add: Vital Signs - 24 hr 06/18/22 09:16 Temperature 98.7 F Pulse Rate [Right Pulse Oximeter] 80 Respiratory Rate 18 Blood Pressure [Ri ght Upper Arm] 138/95 H Pulse Oximetry 95 Oxygen Delivery Me thod Room Air Documenting provider has reviewed patient's vital signs: yes Course Vital Signs Vital signs: Initial Vital Signs Temperature 98.7 F 06/18/22 09:16 Temperature Source Temporal Artery Scan 06/18/22 09:16 Pulse Rate 80 06/18/22 09:16 Respiratory Rate 18 06/18/22 09:16 Blood Pressure 138/95 H 06/18/22 09:16 Blood Pressure Mean 109 06/18/22 09:16 Blood Pressure Position Sitting 06/18/22 09:16 Pulse Oximetry 95 06/18/22 09:16 Oxygen Delivery Method 06/18/22 09:16 Vital Signs Temperature 98.7 F 06/18/22 09:16 Pulse Rate 80 06/18/22 09:16 Respiratory Rate 18 06/18/22 09:16 Blood Pressure 138/95 H 06/18/22 09:16 Pulse Oximetry 95 06/18/22 09:16 Oxygen Delivery Method 06/18/22 09:16 Temperature 98.7 F 06/18/22 09:16 Pulse Rate 80 06/18/22 09:16 Respiratory Rate 18 06/18/22 09:16 Blood Pressure 138/95 H 06/18/22 09:16 Pulse Oximetry 95 06/18/22 09:16 Oxygen Delivery Method 06/18/22 09:16 Medical Decision Making MDM Narrative Medical decision making narrative: Differential diagnosis includes but is not limited to arthritis, fracture, spinal stenosis, sprain, and strain. This includes the life-threatening complications of fractures. My concern with this gentleman was the axial load he sustained last night, there was an evidence of a cervical fracture of C5, posterior lamina, there likely is cord edema/compression given the fact that he is having the disc seizures, and weakness in his hands and feet bilaterally. Calls to [place], [facility], and [facility] both showed full capacity and inability to treat this gentleman. We were able to transfer him to [facility], with accepting physician. I discussed with the patient and the , the possibilities include extended. With the cervical collar, surgery, acutely or electively, along with possibility of a halo. We will transfer him by [facility] up to [facility] for further consultation through the ER. Medical Records Medical records reviewed: Yes I reviewed the patient's medical records Lab Data Lab results reviewed: Yes I reviewed the patient's lab results Labs: Lab Results 06/18/22 06/18/22 06/18/22 Range/Units 09:45 09:45 09:45 WBC 11.27 H (4.50-11.00) K/uL RBC 3.62 L (4.30-5.90) m/uL Hgb 12.6 L (13.5-17.5) gm/dL Hct 37.1 (37.0-53.0) % MCV 103 H (80-100) fL MCH 35 H (26-34) pg MCHC 34 (32-36) gm/dL RDW Coeff of Manolo 13.9 (11.5-15.5) % Plt Count 244 (140-440) K/uL Neut % (Auto) 65.5 (42.0-72.0) % Lymph % (Auto) 20.5 (20-44) % [place] % (Auto) 11.4 H (0.0-11.0) % Eos % (Auto) 1.1 (0.0-7.0) % Baso % (Auto) 0.5 (0.0-3.0) % Neut # (Auto) 7.40 H (1.7-7.0) K/uL Lymph # (Auto) 2.30 (0.90-2.90) K/uL [place] # (Auto) 1.30 H (0.00-0.90) K/UL Eos # (Auto) 0.10 (0.00-0.50) K/uL Baso # (Auto) 0.10 (0.00-0.30) K/uL Abs Immat Gran (auto) 0.11 (0.00-0.30) K/uL INR 0.87 L (0.91-1.10) APTT 29 (23-33) Seconds Sodium 138 (135-149) mmol/L Potassium 4.1 (3.6-5.1) mmol/L Chloride 106 (96-114) mmol/L Carbon Dioxide 22 (20-32) mmol/L BUN 21 (7-30) mg/dL Creatinine 1.3 (0.5-1.5) mg/dL Estimated Creat Clear 38.50 Estimated GFR 58 ml/min Glucose 87 (60-115) mg/dL Calcium 9.2 (8.4-10.6) mg/dL Ionized Calcium Elle (1.11-1.30) mmol/L Magnesium Total Bilirubin (0.1-1.5) mg/dL Direct Bilirubin (0.0-0.5) mg/dL AST (12-35) U/L ALT (4-50) U/L Alkaline Phosphatase (40-150) U/L Total Protein (6.0-8.3) g/dL Albumin (3.3-5.0) g/dL Ethyl Alcohol < 0.01 L (0.01-0.03) % POC Troponin I (0.01-0.04) ng/ml 06/18/22 06/18/22 06/18/22 Range/Units 09:45 09:45 09:45 WBC (4.50-11.00) K/uL RBC (4.30-5.90) m/uL Hgb (13.5-17.5) gm/dL Hct (37.0-53.0) % MCV (80-100) fL MCH (26-34) pg MCHC (32-36) gm/dL RDW Coeff of Manolo (11.5-15.5) % Plt Count (140-440) K/uL Neut % (Auto) (42.0-72.0) % Lymph % (Auto) (20-44) % [place] % (Auto) (0.0-11.0) % Eos % (Auto) (0.0-7.0) % Baso % (Auto) (0.0-3.0) % Neut # (Auto) (1.7-7.0) K/uL Lymph # (Auto) (0.90-2.90) K/uL [place] # (Auto) (0.00-0.90) K/UL Eos # (Auto) (0.00-0.50) K/uL Baso # (Auto) (0.00-0.30) K/uL Abs Immat Gran (auto) (0.00-0.30) K/uL INR (0.91-1.10) APTT (23-33) Seconds Sodium (135-149) mmol/L Potassium (3.6-5.1) mmol/L Chloride (96-114) mmol/L Carbon Dioxide (20-32) mmol/L BUN (7-30) mg/dL Creatinine (0.5-1.5) mg/dL Estimated Creat Clear Estimated GFR ml/min Glucose (60-115) mg/dL Calcium Cancelled (8.4-10.6) mg/dL Ionized Calcium Elle (1.11-1.30) mmol/L Magnesium Cancelled Total Bilirubin 0.4 (0.1-1.5) mg/dL Direct Bilirubin 0.0 (0.0-0.5) mg/dL AST 42 H (12-35) U/L ALT 22 (4-50) U/L Alkaline Phosphatase 77 (40-150) U/L Total Protein 6.8 (6.0-8.3) g/dL Albumin 4.1 (3.3-5.0) g/dL Ethyl Alcohol (0.01-0.03) % POC Troponin I 0.00 L (0.01-0.04) ng/ml 06/18/22 Range/Units 09:45 WBC (4.50-11.00) K/uL RBC (4.30-5.90) m/uL Hgb (13.5-17.5) gm/dL Hct (37.0-53.0) % MCV (80-100) fL MCH (26-34) pg MCHC (32-36) gm/dL RDW Coeff of Manolo (11.5-15.5) % Plt Count (140-440) K/uL Neut % (Auto) (42.0-72.0) % Lymph % (Auto) (20-44) % [place] % (Auto) (0.0-11.0) % Eos % (Auto) (0.0-7.0) % Baso % (Auto) (0.0-3.0) % Neut # (Auto) (1.7-7.0) K/uL Lymph # (Auto) (0.90-2.90) K/uL [place] # (Auto) (0.00-0.90) K/UL Eos # (Auto) (0.00-0.50) K/uL Baso # (Auto) (0.00-0.30) K/uL Abs Immat Gran (auto) (0.00-0.30) K/uL INR (0.91-1.10) APTT (23-33) Seconds Sodium (135-149) mmol/L Potassium (3.6-5.1) mmol/L Chloride (96-114) mmol/L Carbon Dioxide (20-32) mmol/L BUN (7-30) mg/dL Creatinine (0.5-1.5) mg/dL Estimated Creat Clear Estimated GFR ml/min Glucose (60-115) mg/dL Calcium (8.4-10.6) mg/dL Ionized Calcium Elle 1.10 L (1.11-1.30) mmol/L Magnesium Total Bilirubin (0.1-1.5) mg/dL Direct Bilirubin (0.0-0.5) mg/dL AST (12-35) U/L ALT (4-50) U/L Alkaline Phosphatase (40-150) U/L Total Protein (6.0-8.3) g/dL Albumin (3.3-5.0) g/dL Ethyl Alcohol (0.01-0.03) % POC Troponin I (0.01-0.04) ng/ml Imaging Data CT scan - head: Radiologist's impression: atient: [facility] Facility:?[facility] Patient ID:?[id number] Site Patient ID:?[id number] Site :?[id number] Study:?CT Head w/o-06/18/2022 10:07:40 AM Ordering Physician:Shavon Conway Final Report: INDICATION: FALL AND HEMATOMA, HEAD INJURY, DEMENTIA COMPARISON: 06/17/2022 TECHNIQUE: A CT volumetric acquisition was performed of the brain without IV contrast. Please note that all CT scans at this facility use dose modulation, iterative reconstruction, and/or weight-based dosing when appropriate to reduce radiation dose to as low as reasonably achievable. FINDINGS: No intracranial hemorrhage, mass or mass effect. Incidental cavum septum et vergae. Mild generalized cortical atrophy and chronic white matter changes. Vascular calcifications. No fracture. Mild mucosal thickening inferior frontal sinuses. IMPRESSION: No intracranial hemorrhage. Please note that all CT scans at this facility use dose modulation, iterative reconstruction, and/or weight-based dosing when appropriate to reduce radiation dose to as low as reasonably achievable. Dictated by Luis Rock MD @ 06/18/2022 10:25:30 AM (Electronic Signature) Patient: [facility] Facility:?[facility] Patient ID:?[id number] Site Patient ID:?[id number]. Site :?[id number] Study:?CT Spine Cervical W/O-06/18/2022 10:08:21 AM Ordering Physician:Shavon Conway Final Report: INDICATION: Fall out of bed TECHNIQUE: CT cervical spine without contrast. COMPARISON: : None FINDINGS: Mildly displaced fracture of the right C5 lamina extending into the base of the spinous process. Left C5 lamina intact. No compression fracture. Multilevel degenerative disc disease and facet degeneration. Fusion across the C3-4 vertebral bodies. Normal C1-2 relationship. No cervical adenopathy. IMPRESSION: Fracture of the right C5 lamina extending into the base of the spinous process. Discussed with Dr. Rolon 10:30 a.m. 06/18/2022. Please note that all CT scans at this facility use dose modulation, iterative reconstruction, and/or weight-based dosing when appropriate to reduce radiation dose to as low as reasonably achievable. Dictated by Luis Rock MD @ 06/18/2022 10:33:54 AM (Electronic Signature) ECG Data Attestation: I personally reviewed and interpreted this ECG as follows: Interpretation: EKG shows normal sinus rhythm, no acute ST wave changes, ventricular rate 87 Critical Care Time Critical Care Time Critical Care Time: Yes Attestation: The patient required my highest level preparedness to intervene emergently and I personally spent this critical care time directly and personally managing the patient. This critical care time included: Obtaining a history; Examining the patient; Pulse oximetry; Ordering and reviewing of studies; Arranging urgent treatment with development of a management plan; Evaluation of patients response to treatment; Frequent reassessment discussions with other providers. This critical care time was performed to assess and manage the high probability of imminent life-threatening deterioration that could result in multiorgan failure. It was exclusive of separate billable procedures and treating other patients and teaching time. Total Critical Care Time in Minutes: 45 Discharge Plan Discharge Clinical Impression: C5-C7 fracture, closed, with cord injury Patient Disposition: Xfer Other Discharge Location: [facility] Condition: Critical Additional Instructions: Pain medication using morphine, [place] collar, Prescriptions: No Action lisinopril-hydrochlorothiazide 10-12.5 mg tablet 1 tab PO DAILY aspirin 325 mg tablet 325 mg PO DAILY fluticasone propionate [24 Hour Allergy Relief] 50 mcg/actuation spray,suspension 2 spray intranasal DAILY PRN Rx Instructions: administer into each nostril loratadine [Allerclear] 10 mg tablet 10 mg PO DAILY metoprolol tartrate [Lopressor] 50 mg tablet 25 mg PO BID nitroglycerin 0.4 mg tablet, sublingual 0.4 mg sublingual Q5-15M PRN Rx Instructions: do not exceed 3 doses per episode pantoprazole 20 mg tablet,delayed release (DR/EC) 20 mg PO DAILY isosorbide mononitrate 30 mg tablet extended release 24 hr 30 mg PO DAILY atorvastatin 80 mg tablet 80 mg PO QPM apixaban 5 mg tablet 5 mg PO BID amiodarone .ROUTE Stand Alone Forms: [facility] Info Instructions
[2022-06-18] MEDS: MORPHINE 4 MG/ML INJ IVP ×2 (09:54→11:28)
[2022-06-18 10:06] LABS: Basophils Percent Auto 0.5 % (0.0-3.0); Eosinophils Percent Auto 1.1 % (0.0-7.0); Hematocrit 37.1 % (37.0-53.0); Hemoglobin* 12.6 gm/dL (13.5-17.5); Immature Granulocytes Abs Auto 0.11 K/uL (0.00-0.30); Lymphocytes Percent Auto 20.5 % (20-44); Mean Corpuscular HGB Conc 34 gm/dL (32-36); Mean Corpuscular Hemoglobin 35 pg (26-34); Mean Corpuscular Volume 103 fL (80-100); Monocytes Percent Auto 11.4 % (0.0-11.0); Neutrophils Percent Auto 65.5 % (42.0-72.0); Platelet Count* 244 K/uL (140-440); RDW Coefficient of Variation % 13.9 % (11.5-15.5); Red Blood Count 3.62 m/uL (4.30-5.90); White Blood Count* 11.27 K/uL (4.50-11.00)
[2022-06-18 10:10] LABS: Slide Review Reflex No
[2022-06-18] MEDS: THIAMINE 100 MG TABLET PO (10:10)
[2022-06-18] MEDS: FOLIC ACID 1 MG TABLET PO (10:10)
[2022-06-18] MEDS: 0.9 % SODIUM CHLORIDE 500 ML 500 ML IV (10:13)
[2022-06-18 10:25] LABS: Albumin* 4.1 g/dL (3.3-5.0); Chloride* 106 mmol/L (96-114)
[2022-06-18 10:26] LABS: Potassium* 4.1 mmol/L (3.6-5.1); Sodium* 138 mmol/L (135-149)
[2022-06-18 10:28] LABS: Alanine Aminotransferase* 22 U/L (4-50); Alkaline Phosphatase* 77 U/L (40-150); Aspartate Amino Transferase* 42 U/L (12-35); Bilirubin Total* 0.4 mg/dL (0.1-1.5); Creatinine* 1.3 mg/dL (0.5-1.5); Estimated Glomerular Filt Rate 58 ml/min; Total Protein* 6.8 g/dL (6.0-8.3)
[2022-06-18 10:29] LABS: Blood Urea Nitrogen* 21 mg/dL (7-30); Carbon Dioxide* 22 mmol/L (20-32); Glucose* 87 mg/dL (60-115)
[2022-06-18 10:30] LABS: Calcium* 9.2 mg/dL (8.4-10.6); INR 0.87 (0.91-1.10); Partial Thromboplastin Time* 29 Seconds (23-33); Prothrombin Time 12.2 Seconds
[2022-06-18 10:37] LABS: Ethanol* < 0.01 % (0.01-0.03)
--- NOTE | 2022-06-18 10:44 | ED.NURSE ---
[place] C-collar applied to pt.
[2022-06-18 11:04] LABS: PCR FLU A Negative PCR FLU A (Negative); PCR FLU B Negative PCR FLU B (Negative); PCR RSV Negative PCR RSV (Negative)
[2022-06-18] MEDS: ONDANSETRON 2 MG/ML inj 4 MG IVP (11:35)
--- NOTE | 2022-06-18 11:39 | ED.NURSE ---
Pt had small amount of emesis after transfer to ambulance [facility].
[2022-06-18 11:49] LABS: SARS PCR* Negative SARS-CoV-2 (Negative)
--- NOTE | 2022-06-18 11:56 | ED.NURSE ---
Report called to [facility] RN (Victor Manuel).
[2022-06-18 12:21] LABS: Amphetamine Screen Urine Negative (Negative); Barbiturate Screen Urine Negative (Negative); Benzodiazepines Screen Urine Negative (Negative); Cannabinoid Screen Urine Negative (Negative); Cocaine Screen Urine Negative (Negative); Methadone Screen Urine Negative (Negative); Methamphetamines Screen Urine Negative (Negative); Opiate Screen Urine Negative (Negative); Oxycodone Screen Urine Negative (Negative); Phencyclidine Screen Urine Negative (Negative); Tricyclic Antidepressant Urine Negative (Negative)
--- OUTSIDE RECORDS SUMMARY | 2022-06-25 21:30 | XMS_ITS | Continuity of Care Document ---
:1950 Author Organization [facility] Care Team Providers Name Role Phone [facility] Unavailable Unavailable Problems Combined list of problems from Department of Defense and [facility] Affairs facilities. It does not include entries that were removed or entered in error. Problem Status Onset Problem Date of Comments Source Date Type Resolution Acute non-ST segment Active Condition [place] elevation myocardial [facility] infarction Alcohol abuse Active Condition [place] (SNOMED CT 51045571) [facility] Anemia (SNOMED CT Active Condition [place] [id number][place] [facility] Ankle pain Active Condition [place] [facility] Benign essential Active Condition [place] hypertension (OMED [facility] CT 5898536) CAD - Coronary Active Condition Sep 18, [place] artery disease 2015 Entered [facility] By: MARYELLEN LEON Comment: s/p stenting Cannabis abuse Active Condition [place] (SNOMED CT 76610412) [facility] Chronic kidney Active Condition [place] disease [facility] Drug monitoring done Active Condition [facility] Elevated liver Active Condition [place] enzymes level [facility] Gastroesophageal Active Condition [place] reflux disease [facility] S (SNOMED CT 052575335) Hand pain Active [place] [facility] Hearing loss * Active Condition [place] (ICD-9-CM 389.9) [facility] HTN - Hypertension Active Condition [place] (SNOMED CT 08765742) [facility] Hyperlipidemia Active Condition [place] (SNOMED CT 19898206) [facility] Jt Replcmnt Stat, Active Condition [place] Knee [facility] Long-term current Active Condition [place] use of anticoagulant [facility] 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, [place]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 Entered [facility] By: MARYELLEN LEON Comment: hospitalized at [facility] in 02/2022 Pain in joint Active Condition May 14, [place] involving shoulder 2010 Entere d [facility] region (ICD-9-CM By: 719.41) MARYELLEN LEON Comment: RIGHT Pain of right Active Condition [place] shoulder joint [facility] Paroxysmal atrial Active Condition [place] fibrillation [facility] Rhinitis Active Condition [place] [facility] Rib fracture Active Condition Dec 15, [place] 2018 Entered [facility] By: MARYELLEN LEON Comment: s/p fall 11/2018, RIGHT rib Seropositive Active Condition [place] rheumatoid arthritis [facility] Knee: arthralgia * Inactive Condition 05/04/2010 [place] (ICD-9-CM 719.46) [facility] Admit Reason: FALL active Diagnosis [place] REC DC [facility] Diagnosis: ICD-10-CM active Diagnosis [place] R62.7 Adult failure [facility] to thrivewith Provider Comments: Adult Failure to Thrive Diagnosis: ICD-10-CM active Diagnosis [place] I47.1 [facility] Supraventricular tachycardiawith Provider Comments: Multifocal atrial tachycardia (SCT [id number]) Diagnosis: ICD-10-CM active Diagnosis [place] I48.0 Paroxysmal [facility] atrial fibrillationwith Provider Comments: Paroxysmal atrial fibrillation (SCT 177616925) Diagnosis: ICD-10-CM active Diagnosis [place] Z13.6 Encounter for [facility] screening for cardiovascular disorderswith Provider Comments: Encounter for Screening for Cardiovascular Disorders Diagnosis: ICD-10-CM active Diagnosis [place] K64.8 Other [facility] hemorrhoidswith Provider Comments: Other Hemorrhoids Diagnosis: ICD-10-CM active Diagnosis [place] Z71.89 Other [facility] specified counselingwith Provider Comments: Other specified Counseling Diagnosis: ICD-10-CM active Diagnosis [place] Z79.01 group home [facility] (current) use of anticoagulantswith Provider Comments: group home (current) use of anticoagulants Diagnosis: ICD-10-CM active Diagnosis [place] I48.92 Unspecified V A [facility] atrial flutterwith Provider Comments: Unspecified Atrial Flutter Diagnosis: ICD-10-CM active Diagnosis [place] I47.1 [facility] Supraventricular tachycardiawith Provider Comments: Multifocal atrial tachycardia (SNOMED CT 63532943) Diagnosis: ICD-10-CM active Diagnosis [place] M06.9 Rheumatoid [facility] arthritis, unspecifiedwith Provider Comments: Seropositive rheumatoid arthritis (SCT 801474898) Diagnosis: ICD-10-CM active Diagnosis [place] K02.9 Dental caries, [facility] unspecifiedwith Provider Comments: Dental Caries, unspecified Diagnosis: ICD-10-CM active Diagnosis [place] Z23 Encounter for [facility] immunizationwith Provider Comments: Encounter for Immunization Diagnosis: ICD-10-CM active Diagnosis [place] H25.13 Age-related V A [facility] nuclear cataract, bilateralwith Provider Comments: Age-related nuclear cataract, bilateral Diagnosis: ICD-10-CM active Diagnosis [place] I25.10 Athscl heart [facility] disease of [place] coronary artery w/o ang pctrswith Provider Comments: CAD - Coronary artery disease ([facility] [id number]) Diagnosis: ICD-10-CM active Diagnosis [place] L40.50 Arthropathic [facility] psoriasis, unspecifiedwith Provider Comments: Psoriatic arthritis Diagnosis: ICD-10-CM active Diagnosis [place] M05.9 Rheumatoid [facility] arthritis with rheumatoid factor, unspecifiedwith Provider [...] Date ACETAMINOPH TAKE TWO ORALLY ACTIVE 02/09/2023 [id number] H OANG,VIE 02/11/ [place] 500MG TABLETS 2 T H 2021 [place] TAB BY MOUTH [facility] FOUR TIMES A DAY NEEDED *NOT TO EXCEED 4000MG IN 24 HOURS* FOR PAIN ACETAMINOPH TAKE TWO ORALLY DISCONT 01/13/2022 [id number] LEON,VIE 01/16/ [place] 500MG TABLETS INUED 2 T H 2020 [place] TAB BY MOUTH [facility] FOUR TIMES A DAY NEEDED *NOT TO EXCEED 4000MG IN 24 HOURS* FOR PAIN ADALIMUMAB INJECT SUBCUT ACTIVE 01/12/2023 [id number] RIN DEN,TI 02/08/ [place] 40MG/0.8ML 40 MG ANEOUS 2 MOTHY D 2021 [place] A INJ,PEN,KIT UNDER HCS THE SKIN EVERY 2 WEEKS ADALIMUMAB INJECT SUBCUT DISCONT 09/29/2022 [id number] MO LITOR,J 10/01/ [place] 40MG/0.8ML 40 MG ANEOUS INUE 2 ERRY A 2020 [place] INJ,PEN,KIT UNDER HCS THE SKIN EVERY 2 WEEKS ADALIMUMAB INJECT SUBCUT DISCONT 01/13/2022 [id number] AL VANPOUR 01/16/ [place] 40MG/0.8ML 40 MG ANEOUS INUE 1 ,RAGHAVENDRA 2020 [place] INJ,PEN,KIT UNDER HCS THE SKIN EVERY 2 WEEKS AMIODARONE TAKE ONE ORALLY SUSPEND 05/16/2023 [id number] M CCRARY,A 05/16/ [place] HCL TABLET ED 2 BBIE L 2021 [place] (PACERONE) BY MOUTH HCS 200MG TAB EVERY DAY FOR HEART RHYTHM - TAKE WITH FOOD AMIODARONE TAKE ONE ORALLY DISCONT 07/09/2022 [id number] M CCRARY,A 04/10/ [place] HCL TABLET INUED 2 BBIE L 2021 [place] (PACERONE) BY MOUTH (EDIT) HCS 200MG TAB TWICE A DAY FOR 30 DAYS, THEN TAKE ONE TABLET EVERY DAY FOR HEART RHYTHM - TAKE WITH FOOD APIXABAN TAKE ONE ORALLY ACTIVE 06/06/2023 [id number] EDUARDO ON, 06/06/ [place] 5MG TAB TABLET 2 HANG 2021 [place] BY MOUTH [facility] EVERY 12 HOURS TO PREVENT BLOOD CLOTS and STROKE. APIXABAN TAKE ONE ORALLY DISCONT 04/24/2023 [id number] VIC ACUNAK 04/24/ [place] 5MG TAB TABLET INUED 2 RISTIN Y 2021 [place] BY MOUTH (EDIT) HCS EVERY 12 HOURS TO PREVENT BLOOD CLOTS and STROKE. APIXABAN TAKE ONE ORALLY DISCONT 05/10/2022 [id number] CORRECTION RARY,A 04/10/ [place] 5MG TAB TABLET INUED 2 BBIE L 2021 [place] BY MOUTH (EDIT) HCS EVERY 12 HOURS TO PREVENT BLOOD CLOTS and STROKE. ASPIRIN TAKE ONE ORALLY DISCONT 06/02/2022 [id number] DANAY NG,VIE 07/26/ [place] 81MG TAB,EC TABLET INUED 2 T H 2020 [place] BY MOUTH HCS EVERY DAY ASPIRIN TAKE ONE ORALLY DISCONT 12/26/2021 [id number] DANAY NG,VIE 12/27/ [place] 81MG TAB,EC TABLET INUE 1 T H 2020 [place] BY MOUTH HCS EVERY DAY ATORVASTATI TAKE ONE ORALLY ACTIVE 03/06/2023 [id number] H OANG,VIE 03/05/ [place] CA 80MG TABLET 2 T H 2021 [place] TAB BY MOUTH HCS AT BEDTIME FOR CHOLESTE ROL REPLACES SIMVASTA TIN ATORVASTATI TAKE ORALLY DISCONT 06/02/2022 [id number] H OAJATIN CASTRO 06/03/ [place] 80MG ONE-HALF INUED 2 T H 2020 [place] TAB TABLET (EDIT) HCS BY MOUTH AT BEDTIME FOR CHOLESTE ROL REPLACES SIMVASTA TIN CARBOXYMETH INSTILL BOTH ACTIVE 07/12/2022 [id number] SCHEU RER, 07/12/ [place] YLCELLULOSE 1 DROP EYES 1 ANGELA A 2020 [place] A NA 0.25% IN BOTH HCS SOLN,OPH EYES FOUR TIMES A DAY CEPHALEXIN TAKE 1 ORALLY ACTIVE JATIN LEON [place] 500MG CAP CAPSULE T H 2021 [place] BY MOUTH HCS FOUR TIMES A DAY CHOLECALCIF TAKE ONE ORALLY 06/02/2022 [id number] CAROLYNCHARLESNina 06/03/ [place] RONAK 25MCG TABLET 2 T H 2020 [place] (1,000UNIT) BY MOUTH HCS TAB EVERY DAY CYANOCOBALA TAKE ONE ORALLY ACTIVE 03/06/2023 [id number] LEON,VIE 05/30/ [place] MIN 1000MCG TABLET 2 T H 2021 [place] TAB BY MOUTH HCS EVERY DAY CYANOCOBALA TAKE ONE ORALLY DISCONT 06/02/2022 [id number] LEON,VIE 06/03/ [place] MIN 1000MCG TABLET INUED 2 T H 2020 [place] TAB BY MOUTH HCS EVERY DAY DOCUSATE NA TAKE TWO ORALLY ACTIVE JATIN LEON 06/24 / [place] 50MG/SENNOS TABLETS T H 2021 [place] A IDES 8.6MG BY MOUTH HCS TAB TWICE A DAY FLUTICASONE SPRAY 1 NASAL 06/02/2022 [id number] JATIN LEON 06/03/ [place] PROPIONATE SPRAY IN 1 T H 2020 [place] A 50MCG/SPRAY EACH HCS SOLN,NASAL, NOSTRIL 16GM TWICE A DAY NEEDED FOR RUNNY NOSE USE REGULARL Y FOR RELIEF OF ALLERGIE S/CONGES TION FOLIC ACID TAKE ONE ORALLY ACTIVE 03/06/2023 [id number] H OACHARLES CASTROE 04/25/ [place] 1MG TAB TABLET 2 T H 2021 [place] BY MOUTH HCS EVERY DAY FOLIC ACID TAKE ONE ORALLY DISCONT 01/12/2023 [id number] RINDEN,TI 02/04/ [place] 1MG TAB TABLET INUED 2 MOTHY D 2021 [place] BY MOUTH HCS EVERY DAY FOLIC ACID TAKE ONE ORALLY DISCONT 01/13/2022 [id number] ALVANPOUR 02/19/ [place] 1MG TAB TABLET INUE [...] DAY NEEDED ISOSORBIDE TAKE ORALLY ACTIVE 03/06/2023 [id number] LEON, VIE 03/13/ [place] MONONITRATE ONE-HALF 2 T H 2021 [place] 60MG TAB,SA TABLET HCS BY MOUTH EVERY DAY ISOSORBIDE TAKE ORALLY DISCONT 03/22/2022 [id number] FB-SAG ER, 02/21/ [facility] MONONITRATE ONE-HALF INUED 2 ANGELA 2021 ent o f 60MG TAB,SA TABLET BY MOUTH s EVERY Affairs DAY ISOSORBIDE TAKE ONE ORALLY DISCONT 06/02/2022 [id number] LEON,VIE 06/23/ [place] MONONITRATE TABLET INUED 2 T H 2020 [place] 60MG TAB,SA BY MOUTH HCS EVERY DAY FOR CHEST PAIN ISOSORBIDE TAKE ONE ORALLY DISCONT 07/29/2021 [id number] LEON,VIE 09/12/ [place] MONONITRATE TABLET INUE 1 T H 2019 [place] 60MG TAB,SA BY MOUTH HCS EVERY DAY FOR CHEST PAIN LIDOCAINE APPLY TOPICA ACTIVE JATIN LEON 06/24/ [place] PATCH 1-3 LLY T H 2021 [place] PATCH 4% HCS TOPICALL Y EVERY DAY LORATADINE TAKE ONE ORALLY DISCONT 07/29/2021 [id number] H ZINAJATIN 09/04/ [place] 10MG TAB TABLET INUE 1 T H 2019 [place] BY MOUTH HCS EVERY DAY FOR ALLERGY SYMPTOMS LORATADINE TAKE ONE ORALLY 06/02/2022 [id number] H ZINAJATIN 06/23/ [place] 10MG TAB TABLET 2 T H 2020 [place] BY MOUTH HCS EVERY DAY FOR ALLERGY SYMPTOMS MAGNESIUM TAKE 1 ORALLY 04/05/2022 [id number] RANWEI LER 03/06/ [place] CITRATE BOTTLE 2 ,VJ B 2021 [place] LIQUID,ORAL BY MOUTH HCS ONCE AT 12PM (NOON) ONE DAY BEFORE PROCEDUR E FOR COLON PREP METHOCARBAM TAKE ORALLY ACTIVE JATIN LEON 06/24/ [place] TAB ONE-HALF T H 2021 [place] TO ONE HCS TABLET BY MOUTH EVERY 6 HOURS NEEDED METOPROLOL TAKE ONE ORALLY ACTIVE 03/06/2023 [id number] H JATIN IZAGUIRRE 03/13/ [place] TARTRATE TABLET 2 T H 2021 [place] 50MG TAB BY MOUTH HCS TWICE A DAY METOPROLOL TAKE ONE ORALLY DISCONT 03/22/2022 [id number] F B-GABRIEL, m TARTRATE TABLET INUED 2021 ent of 50MG TAB BY MOUTH [employer] TWICE A s DAY Affairs METOPROLOL TAKE ORALLY DISCONT 06/02/2022 [id number] CHARLES LEONE 08/07/ [place] TARTRATE ONE-HALF INUED 2 T H 2020 [place] 50MG TAB TABLET HCS BY MOUTH TWICE A DAY FOR HEART METOPROLOL TAKE ORALLY DISCONT 07/29/2021 [id number] JATIN LEON 08/18/ [place] TARTRATE ONE-HALF INUE 1 T H 2019 [place] 50MG TAB TABLET HCS BY MOUTH TWICE A DAY FOR HEART OXYCODONE TAKE ORALLY ACTIVE JATIN LEON 06/24/ [place] TAB ONE-HALF T H 2021 [place] TO ONE HCS TABLET BY MOUTH EVERY 4 HOURS NEEDED PANTOPRAZOL TAKE ONE ORALLY ACTIVE 03/06/2023 [id number] LEON,VIE 04/30/ [place] NA 40MG TABLET 2 T H 2021 [place] TAB,EC BY MOUTH HCS EVERY MORNING ONE-HALF HOUR BEFORE EATING TO DECREASE STOMACH ACID TAKE ON AN EMPTY STOMACH, AT LEAST 30 MINUTES PRIOR TO MEAL PANTOPRAZOL TAKE ONE ORALLY DISCONT 06/02/2022 [id number] LEON,VIE 08/07/ [place] NA 40MG TABLET INUED 2 T H 2020 [place] TAB,EC BY MOUTH HCS EVERY MORNING ONE-HALF HOUR BEFORE EATING TO DECREASE STOMACH ACID TAKE ON AN EMPTY STOMACH, AT LEAST 30 MINUTES PRIOR TO MEAL PANTOPRAZOL TAKE ONE ORALLY DISCONT 07/29/2021 [id number] LEON,VIE 08/09/ [place] 40MG TABLET INUE 1 T H 2019 [place] TAB,EC BY MOUTH HCS EVERY MORNING ONE-HALF HOUR BEFORE EATING TO DECREASE STOMACH ACID TAKE ON AN EMPTY STOMACH, AT LEAST 30 MINUTES PRIOR TO MEAL PEG-3350/EL TAKE 1 ORALLY 04/05/2022 [id number] RA NWEILER 03/06/ [place] ECTROLYTES CONTAINE 2 [...] DAY PREDNISONE TAKE ONE ORALLY ACTIVE 01/12/2023 [id number] R INDEN,TI 01/19/ [place] 10MG TAB TABLET 2 MOTHY D 2021 [place] BY MOUTH HCS EVERY DAY PREDNISONE TAKE ONE ORALLY DISCONT 03/21/2022 [id number] M OLVINICIUSJ 03/20/ [place] 10MG TAB TABLET INUE 1 ERRY A 2020 [place] BY MOUTH HCS EVERY DAY SULFASALAZI TAKE TWO ORALLY ACTIVE 01/12/2023 [id number] RINDEN,TI 01/19/ [place] 500MG TABLETS 2 MOTHY D 2021 [place] TAB BY MOUTH HCS TWICE A DAY SULFASALAZI TAKE TWO ORALLY DISCONT 03/21/2022 [id number] ORLANDOJ 03/20/ [place] 500MG TABLETS INUE [...] [place] to adverse to adverse 1 IS [facility] reactions reactions to drug to drug (finding) (finding) Immunizations Combined list of available immunizations from the Department of Defense and Veterans Affairs facilities. Immunization Series Date Administered Site Reaction Lot CVX Drug St atus Comments Source Given By Number Code Director Dance COVID-19 4 complet PFR; [place] (Ceradis), 2021 ed [id number]; [place] MRNA, LNP-S, 02 HCS PF, 30 2 MCG/0.3 ML DOSE, JJ-SUCROSE (AGES 12+ YEARS) COVID-19 3 complet PRF; [place] (Ceradis), 2020 ed [id number]; [place] MRNA, LNP-S, 02 HCS PF, 30 2 MCG/0.3 ML DOSE INFLUENZA, complet [place] INJECTABLE, 2020 ed [place] QUADRIVALENT, HCS PRESERVATIVE FREE COVID-19 2 complet PFR; [place] (PFIZER), 2020 ed [id number]; [place] MRNA, LNP-S, 02 HCS PF, 30 1 MCG/0.3 ML DOSE COVID-19 1 complet PFR; [place] (PFIZER), 2020 ed [id number]; [place] MRNA, LNP-S, 02 CBOC PF, 30 1 MCG/0.3 ML DOSE INFLUENZA, complet [place] INJECTABLE, 2019 ed [place] QUADRIVALENT, HCS PRESERVATIVE FREE INFLUENZA, complet [place] SEASONAL, 2018 ed [place] INJECTABLE, HC S PRESERVATIVE FREE ZOSTER 2 complet [place] RECOMBINANT 2018 ed [place] H[facility] ZOSTER 1 complet [place] RECOMBINANT 2018 ed [place] HCS INFLUENZA, complet [place] SEASONAL, 2017 ed [place] INJECTABLE, HC S PRESERVATIVE FREE INFLUENZA, complet [place] HIGH DOSE 2016 ed [facility] INFLUENZA, complet [place] SEASONAL, 2015 ed [place] INJECTABLE, HC S PRESERVATIVE FREE INFLUENZA, complet [place] HIGH DOSE 2014 ed [place] SEASONAL HCS PNEUMOCOCCAL complet [facility] [place] CONJUGATE PCV 2015 ed PHARM, M20 [facility] 13 640,03/03 HCS INFLUENZA, complet [place] SEASONAL, 2013 ed [place] INJECTABLE, HC S PRESERVATIVE FREE PNEUMOCOCCAL, complet michelle ck and [place] UNSPECIFIED 2013 ed co,[id number] [facility] FORMULATION 6,25sep1 4 HCS INFLUENZA, complet [place] UNSPECIFIED 2013 ed [place] [facility] FORMULATION HC S INFLUENZA, complet [place] UNSPECIFIED 2012 ed [place] [facility] FORMULATION HC S ZOSTER LIVE complet [facility] [place] 2012 ed INC, OL [facility] [id number], HCS [id number] TDAP complet glaxos[employer] M [place] 2009 ed hkline,ac [facility] [id number], HCS 01/03/12 Results Combined list of recent chemistry, hematology and other laboratory results from Department of Defense and Veterans Affairs, ranging from 15 months to all on record, depending upon the facility. Order Results Value Reference Date Interpretation Specimen Commen ts Source Name Range URINALYS COLOR OF YELLOW 06/24 Specimen Type: URINE [place] IS URINE /2021 No comment enter ed. IS [facility] Ordering Provid er: JAYDE MENDOZA Report Released Date/Time: Jun 24, 2022 06:55 PM Reporting Lab: [facility] [address] [place] [address] Performing Lab: [facility] [address] [place] [address] URINALYS SPECIFIC 1.039 1.003 - 06/24 H Specimen Type: URINE [place] GRAVITY OF 1.035 /2021 No comment en tered. IS [facility] URINE Ordering Provid er: JAYDE MENDOZA Report Released Date/Time: Jun 24, 2022 06:55 PM Reporting Lab: [facility] [address] [place] [address] Performing Lab: [facility] [address] [place] [address] [place]AL[place] BILIRUBIN. NEGATIVE 06/24 Specimen Ty pe: URINE [place] TOTAL /2021 No comment enter ed. IS [facility] [PRESENCE] Ordering Pro vider: JAYDE MENDOZA IN URINE Report Release d Date/Time: Jun 24, 2022 06:55 PM BY TEST Reporting Lab: [facility] STRIP [address] [place] [address] Performing Lab: [facility] [address] [place] [address] URINALYS KETONES NEGATIVE 06/24 Specimen Type: URINE [place] IS [MASS/VOLU /2021 No comment en tered. IS [facility] ME] IN Ordering Provid er: JAYDE MENDOZA URINE BY Report Release d Date/Time: Jun 24, 2022 06:55 PM TEST STRIP Reporting La b: [facility] [address] [place] [address] Performing Lab: [facility] [address] [place] [address] URINALYS GLUCOSE NEGATIVE <30 - 30 06/24 Specimen Type : URINE [place] IS [MASS/VOLU /2021 No comment en tered. IS [facility] ME] IN Ordering Provid er: JAYDE MENDOZA W URINE BY Report Release d Date/Time: Jun 24, 2022 06:55 PM TEST STRIP Reporting La b: [facility] [address] [place] [address] Performing Lab: [facility] [place] [address] URINALYS PROTEIN 50 <20 - 20 06/24 Specimen Type: URINE [place] [MASS/VOLU /2021 No comment en zach. IS [facility] ME] IN Ordering Provid er: JAYDE MENDOZA URINE BY Report Release d Date/Time: Jun 24, 2022 06:55 PM TEST STRIP Reporting La b: [facility] [address] [facility] [address] Performing Lab: [facility] [place] [address] URINALYS PH OF 6.5 5.0 - 8.0 06/24 Specimen Type : URINE [place] URINE BY /2021 No comment jessica bills. IS [facility] TEST STRIP Ordering Pro vider: JAYDE MENDOZA Report Released Date/Time: Jun 24, 2022 06:55 PM Reporting Lab: [facility] [address] [facility] [address] Performing Lab: [facility] [address] [facility] [address] URINALYS LEUKOCYTES 17 0 - 7 06/24 H Specimen Typ e: URINE [place] IS [#/AREA] /2021 No comment jessica bills. IS [facility] IN URINE Ordering Provi maria: JAYDE MENDOZA SEDIMENT Report Release d Date/Time: Jun 24, 2022 06:55 PM BY Reporting Lab: [facility] MICROSCOPY [facility] [address] HIGH POWER Performing L ab: [facility] FIELD [address] [facility] [address] URINALYS BACTERIA NONE 06/24 Specimen Type: URINE [place] IS [PRESENCE] SEEN /2021 No comment nils serrano. IS [facility] IN URINE Ordering Provi maria: JAYDE MENDOZA SEDIMENT Report Release d Date/Time: Jun 24, 2022 06:55 PM BY LIGHT Reporting Lab: [facility] MICROSCOPY [facility] [address] Performing Lab: [facility] [address] [facility] [address] URINALYS CALCIUM FEW 06/24 Specimen Type: URINE [place] IS OXALATE /2021 No comment enter ed. IS [facility] CRYSTALS Ordering Provi maria: JAYDE MENDOZA [PRESENCE] Report Relea sed Date/Time: Jun 24, 2022 06:55 PM IN URINE Reporting Lab: [facility] SEDIMENT [address] [facility] [address] BY LIGHT Performing Lab : [facility] MICROSCOPY [facility] [address] URINALYS ERYTHROCYT >180 0 - 3 06/24 H Specimen Typ e: URINE [place] IS ES /2021 No comment enter ed. IS [facility] [#/AREA] Ordering Provi maria: JAYDE MENDOZA IN URINE Report Release d Date/Time: Jun 24, 2022 06:55 PM SEDIMENT Reporting Lab: [facility] BY [address] [facility] [address] MICROSCOPY Performing L ab: [facility] HIGH POWER [facility] [address] FIELD URINALYS APPEARANCE TURBID 06/24 Specimen Typ e: URINE [place] IS OF URINE /2021 No comment ente red. IS [facility] Ordering Provid er: JAYDE MENDOZA Report Released Date/Time: Jun 24, 2022 06:55 PM Reporting Lab: [facility] [address] [facility] [address] Performing Lab: [facility] [address] [facility] [address] URINALYS EPITHELIAL NONE 06/24 Specimen Typ e: URINE [place] IS CELLS.SQUA SEEN No comment en tered. IS [facility] MOUS Ordering Provid er: JAYDE MENDOZA [#/AREA] Report Release d Date/Time: Jun 24, 2022 06:55 PM IN URINE Reporting Lab: [facility] SEDIMENT [address] [facility] [address] BY Performing Lab: [facility] MICROSCOPY [facility] [address] HIGH POWER FIELD URINALYS HEMOGLOBIN 3+ 06/24 Specimen Typ e: URINE [place] IS [PRESENCE] /2021 No comment en tered. IS [facility] IN URINE Ordering Provi maria: JAYDE MENDOZA BY TEST Report Released Date/Time: Jun 24, 2022 06:55 PM STRIP Reporting Lab: [facility] [address] [facility] [address] Performing Lab: [facility] [address] [facility] [address] URINALYS NITRITE NEGATIVE 06/24 Specimen Type: URINE [place] IS [PRESENCE] No comment en tered. IS [facility] IN URINE Ordering Prov ider: KELLY,JAYDE W BY TEST Report Released Date/Time: Jun 24, 2022 06:55 PM STRIP Reporting Lab: [facility] [place] [address] Performing Lab: [facility] [address] [place] [address] URINALYS LEUKOCYTE 25 06/24 Specimen Type : URINE [place] IS ESTERASE /2021 No comment ente red. IS [facility] [PRESENCE] Ordering Pro vider: JAYDE MENDOZA IN URINE Report Release d Date/Time: Jun 24, 2022 06:55 PM BY TEST Reporting Lab: [facility] STRIP [address] [place] [address] Performing Lab: [facility] [address] [place] [address] AST/SGOT ASPARTATE 19 <34 - 34 06/24 Specimen Typ e: PLASMA [place] AMINOTRANS /2021 No comment en zach. IS [facility] FERASE Ordering Provid er: JAYDE MENDOZA [ENZYMATIC Report Relea sed Date/Time: Jun 24, 2022 08:09 PM ACTIVITY/V Reporting La b: [facility] OLUME] IN [address] [facility] [address] SERUM [place] Performing Lab : [facility] PLASMA [place] [address] POTASSIU POTASSIUM 4.9 3.5 - 5.1 06/24 Specimen Ty pe: PLASMA [place] M [MOLES/VOL /2021 No comment en terhernando. IS [facility] UME] IN Ordering Provid er: JAYDE MENDOZA SERUM OR Report Release d Date/Time: Jun 24, 2022 08:09 PM PLASMA Reporting Lab: [facility] [place] [address] Performing Lab: [facility] [address] [facility] [address] PROTEIN, PROTEIN 6.8 6.0 - 8.3 06/24 Specimen Type : PLASMA [place] TOTAL [MASS/VOLU /2021 No comment en terhernando. IS [facility] ME] IN Ordering Provid er: JAYDE MENDOZA SERUM OR Report Release d Date/Time: Jun 24, 2022 08:09 PM PLASMA Reporting Lab: [facility] ONE [address] [facility] [address] Performing Lab: [facility] [place] [address] PROTHROM INR IN 1.1 0.8 - 1.1 06/24 Specimen Type : PLASMA [place] BIN PLATELET /2021 No comment ente red. [facility] TIME/INR POOR Ordering Provi maria: JAYDE MENDOZA PLASMA BY Report Releas ed Date/Time: Jun 24, 2022 06:55 PM COAGULATIO Reporting La b: [facility] N [place] [address] Performing Lab: [facility] [place] [address] PROTHROM PROTHROMBI 12.1 9.4 - 12.5 06/24 Specimen Type: PLASMA [place] BIN N TIME /2021 No comment enter ed. [facility] TIME/INR (PT) Ordering Provi maria: JAYDE MENDOZA Report Released Date/Time: Jun 24, 2022 06:55 PM Reporting Lab: [facility] [place] [address] Performing Lab: [facility] [place] [address] COVID-19 SARS-COV-2 Not 06/24 Specimen Typ e: NASOPHARYNGEAL [place] DIAGNOST (COVID-19) Detected /2021 Comment: C epheid GeneXpert (618) [facility] IC PANEL RNA Ordering Provi maria: JAYDE MENDOZA (CEPHEID [PRESENCE] Report Rele ased Date/Time: Jun 24, 2022 06:55 PM ) IN Reporting Lab: [facility] RESPIRATOR [address] [facility] [address] Y SPECIMEN Performing L ab: [facility] BY DESTINY [place] [address] WITH PROBE DETECTION CBC & LEUKOCYTES 9.67 4.0 - 11.0 06/24 Specimen T ype: BLOOD [place] DIFF [#/VOLUME] /2021 Comment: Clu mped Platelets. Invitro artefact. No clinical significance. Platelet count may be higher than stated value. Plt count = 214 K-cmm Manual Differential Performed [facility] IN BLOOD Ordering Provi maria: JAYDE MENDOZA BY Report Released Date/Time: Jun 24, 2022 06:55 PM AUTOMATED Reporting Lab : [facility] COUNT [place] [address] Performing Lab: [facility] [place] [address] CBC & ERYTHROCYT 3.36 4.6 - 6.2 08/08 L Specimen Ty pe: BLOOD [place] DIFF ES /2021 Comment: Clumpe d Platelets. Invitro artefact. No clinical significance. Platelet count may be higher than stated value. Plt count = 214 K- cmm Manual Differential Performed [facility] [#/VOLUME] Ordering Pro vider: JAYDE MENDOZA IN BLOOD Report Release d Date/Time: Jun 24, 2022 06:55 PM BY Reporting Lab: [facility] AUTOMATED [facility] [address] COUNT Performing Lab: [facility] [address] [facility] [address] CBC & HEMOGLOBIN 12.0 13.5 - 08/08 L Specimen Type : BLOOD [place] DIFF [MASS/VOLU 17.9 /2021 Comment: Clu mped Platelets. Invitro artefact. No clinical significance. Platelet count may be higher than stated value. Plt count = 214 K-cmm Manual Differential Performed [facility] ME] IN Ordering Provid er: JAYDE MENDOZA BLOOD Report Released Date/Time: Jun 24, 2022 06:55 PM Reporting Lab: [facility] [address] [facility] [address] Performing Lab: [facility] [address] [facility] [facility] [address] CBC & HEMATOCRIT 35.9 41 - 54 /08 L Specimen Type : BLOOD [place] DIFF [VOLUME /2021 Comment: Clumpe d Platelets. Invitro artefact. No clinical significance. Platelet count may be higher than stated value. Plt count = 214 K-cmm Manual Differential Performed [facility] FRACTION] Ordering Prov ider: JAYDE MENDOZA OF BLOOD Report Release d Date/Time: Jun 24, 2022 06:55 PM BY Reporting Lab: [facility] AUTOMATED [facility] [address] COUNT Performing Lab: [facility] [place] [address] [facility] [address] CBC & MCV 106.8 80 - 100 / H Specimen Type: BLOOD [place] DIFF [ENTITIC /2021 Comment: Clump ed Platelets. Invitro artefact. No clinical significance. Platelet count may be higher than stated value. Plt count = 214 K-cmm Manual Differential Performed [facility] VOLUME] BY Ordering Pro vider: JAYDE MENDOZA AUTOMATED Report Releas ed Date/Time: Jun 24, 2022 06:55 PM COUNT Reporting Lab: [facility] [address] [place] [address] Performing Lab: [facility] [address] [place] [address] CBC & MCH 35.7 27 - 33 06/24 H Specimen Type: B LOOD [place] DIFF [ENTITIC /2021 Comment: Clump ed Platelets. Invitro artefact. No clinical significance. Platelet count may be higher than stated value. Plt count = 214 K-cmm Manual Differential Performed [facility] MASS] BY Ordering Provi maria: JAYDE MENDOZA AUTOMATED Report Releas ed Date/Time: Jun 24, 2022 06:55 PM COUNT Reporting Lab: [facility] [address] [place] [address] Performing Lab: [facility] [address] [place] [address] CBC & MCHC 33.4 32.0 - 06/24 Specimen Type: B LOOD [place] DIFF [MASS/VOLU 37.5 /2021 Comment: Clu mped Platelets. Invitro artefact. No clinical significance. Platelet count may be higher than stated value. Plt count = 214 K-cmm Manual Differential Performed [facility] ME] BY Ordering Provid er: JAYDE MENDOZA AUTOMATED Report Rele ed Date/Time: Jun 24, 2022 06:55 PM COUNT Reporting Lab: [facility] [place] [address] Performing Lab: [facility] [address] [place] [address] CBC & PLATELETS comment 06/24 Specimen Type: BLOOD [place] DIFF [#/VOLUME] /2021 Comment: Clu mped Platelets. Invitro artefact. No clinical significance. Platelet count may be higher than stated value. Plt count = 214 K-cmm Manual Differential Performed [facility] IN BLOOD Ordering Provi maria: JAYDE MENDOZA BY Report Released Date/Time: Jun 24, 2022 06:55 PM AUTOMATED Reporting Lab : [facility] [place] [address] Performing Lab: [facility] [address] [place] [address] CBC & PLATELET canc 06/24 Specimen Type: BLOOD [place] DIFF MEAN /2021 Comment: Clumpe d Platelets. Invitro artefact. No clinical significance. Platelet count may be higher than stated value. Plt count = 214 K- cmm Manual Differential Performed [facility] VOLUME Ordering Provid er: JAYDE MENDOZA [ENTITIC Report Release d Date/Time: Jun 24, 2022 06:55 PM VOLUME] IN Reporting La b: [facility] BLOOD BY [address] [place] [place] [address] AUTOMATED Performing La b: [facility] COUNT [address] [place] [address] CBC & NEUTROPHIL 70.7 06/24 Specimen Type : BLOOD [place] DIFF S/ Comment: Clumpe d Platelets. Invitro artefact. No clinical significance. Platelet count may be higher than stated value. Plt count = 214 K- cmm Manual Differential Performed [facility] LEUKOCYTES Ordering Pro vider: JAYDE MENDOZA IN BLOOD Report Release d Date/Time: Jun 24, 2022 06:55 PM BY MANUAL Reporting Lab : [facility] COUNT [address] [place] [address] Performing Lab: [facility] [address] [place] [address] CBC & LYMPHOCYTE 16.7 06/24 Specimen Type : BLOOD [place] DIFF S/ Comment: Clumpe d Platelets. Invitro artefact. No clinical significance. Platelet count may be higher than stated value. Plt count = 214 K- cmm Manual Differential Performed [facility] LEUKOCYTES Ordering Pro vider: JAYDE MENDOZA IN BLOOD Report Release d Date/Time: Jun 24, 2022 06:55 PM BY MANUAL Reporting Lab : [facility] COUNT [address] [place] [address] Performing Lab: [facility] [address] [place] [address] CBC & ERYTHROCYT 14.0 11.5 - 06/24 Specimen Type : BLOOD [place] DIFF E 14.5 Comment: Clumpe d Platelets. Invitro artefact. No clinical significance. Platelet count may be higher than stated value. Plt count = 214 K- cmm Manual Differential Performed [facility] DISTRIBUTI Ordering Pro vider: JAYDE MENDOZA ON WIDTH Report Release d Date/Time: Jun 24, 2022 06:55 PM [RATIO] BY Reporting La b: [facility] [place] [address] COUNT Performing Lab: [facility] [place] [address] CBC & MONOCYTES/ 9.6 06/24 Specimen Type : BLOOD [place] DIFF Comment: Clumpe d Platelets. Invitro artefact. No clinical significance. Platelet count may be higher than stated value. Plt count = 214 K- cmm Manual Differential Performed [facility] LEUKOCYTES Ordering Pro vider: JAYDE MENDOZA W IN BLOOD Report Release d Date/Time: Jun 24, 2022 06:55 PM BY Reporting Lab: [facility] AUTOMATED [facility] [address] COUNT Performing Lab: [facility] [address] [facility] [address] CBC & EOSINOPHIL 1.5 06/24 Specimen Type : BLOOD [place] DIFF S/ Comment: Clumpe d Platelets. Invitro artefact. No clinical significance. Platelet count may be higher than stated value. Plt count = 214 K- cmm Manual Differential Performed [facility] LEUKOCYTES Ordering Pro vider: JAYDE MENDOZA W IN BLOOD Report Release d Date/Time: Jun 24, 2022 06:55 PM BY Reporting Lab: [facility] AUTOMATED [facility] [address] COUNT Performing Lab: [facility] [address] [facility] [address] CBC & METAMYELOC 1.0 06/24 Specimen Type : BLOOD [place] DIFF YTES/ Comment: Clump ed Platelets. Invitro artefact. No clinical significance. Platelet count may be higher than stated value. Plt count = 214 K-cmm Manual Differential Performed [facility] LEUKOCYTES Ordering Pro vider: JAYDE MENDOZA W IN BLOOD Report Release d Date/Time: Jun 24, 2022 06:55 PM BY MANUAL Reporting Lab : [facility] COUNT [address] [facility] [address] Performing Lab: [facility] [address] [facility] [address] CBC & MYELOCYTES 0.5 06/24 Specimen Type : BLOOD [place] DIFF / Comment: Clumpe d Platelets. Invitro artefact. No clinical significance. Platelet count may be higher than stated value. Plt count = 214 K- cmm Manual Differential Performed [facility] LEUKOCYTES Ordering Pro vider: JAYDE MENDOZA W IN BLOOD Report Release d Date/Time: Jun 24, 2022 06:55 PM BY MANUAL Reporting Lab : [facility] [place] [address] Performing Lab: [facility] [address] [place] [address] CBC & NORMOCHROM YES 06/24 Specimen Type : BLOOD [place] DIFF IC /2021 Comment: Clumpe d Platelets. Invitro artefact. No clinical significance. Platelet count may be higher than stated value. Plt count = 214 K- cmm Manual Differential Performed [facility] [PRESENCE] Ordering Pro vider: JAYDE MENDOZA W IN BLOOD Report Release d Date/Time: Jun 24, 2022 06:55 PM BY LIGHT Reporting Lab: [facility] MICROSCOPY [facility] [address] Performing Lab: [facility] [address] [facility] [address] CBC & MACROCYTES SLIGHT 06/24 Specimen Type : BLOOD [place] DIFF [PRESENCE] /2021 Comment: Clu mped Platelets. Invitro artefact. No clinical significance. Platelet count may be higher than stated value. Plt count = 214 K-cmm Manual Differential Performed [facility] IN BLOOD Ordering Provi maria: JAYDE MENDOZA BY LIGHT Report Release d Date/Time: Jun 24, 2022 06:55 PM MICROSCOPY Reporting La b: [facility] [address] [facility] [address] Performing Lab: [facility] [place] [address] CBC & LYMPHOCYTE 1.61 1.0 - 4.0 06/24 Specimen Ty pe: BLOOD [place] DIFF S /2021 Comment: Clumpe d Platelets. Invitro artefact. No clinical significance. Platelet count may be higher than stated value. Plt count = 214 K- cmm Manual Differential Performed [facility] [#/VOLUME] Ordering Pro vider: JAYDE MENDOZA W IN BLOOD Report Release d Date/Time: Jun 24, 2022 06:55 PM BY Reporting Lab: [facility] AUTOMATED [facility] [facility] [address] COUNT Performing Lab: [facility] [address] [facility] [address] CBC & MONOCYTES 0.93 0.1 - 1.0 06/24 Specimen Typ e: BLOOD [place] DIFF [#/VOLUME] /2021 Comment: Clu mped Platelets. Invitro artefact. No clinical significance. Platelet count may be higher than stated value. Plt count = 214 K-cmm Manual Differential Performed [facility] IN BLOOD Ordering Provi maria: JAYDE MENDOZA BY Report Released Date/Time: Jun 24, 2022 06:55 PM AUTOMATED Reporting Lab : [facility] [place] [address] Performing Lab: [facility] [address] [place] [address] CBC & NEUTROPHIL 6.84 2.0 - 7.7 06/24 Specimen Ty pe: BLOOD [place] DIFF S /2021 Comment: Clumpe d Platelets. Invitro artefact. No clinical significance. Platelet count may be higher than stated value. Plt count = 214 K- cmm Manual Differential Performed [facility] [#/VOLUME] Ordering Pro vider: JAYDE MENDOZA IN BLOOD Report Release d Date/Time: Jun 24, 2022 06:55 PM BY Reporting Lab: [facility] AUTOMATED [facility] [facility] [address] COUNT Performing Lab: [facility] [place] [address] CBC & EOSINOPHIL 0.15 0 - 0.5 06/24 Specimen Type : BLOOD [place] DIFF S /2021 Comment: Clumpe d Platelets. Invitro artefact. No clinical significance. Platelet count may be higher than stated value. Plt count = 214 K- cmm Manual Differential Performed [facility] [#/VOLUME] Ordering Pro vider: JAYDE MENDOZA IN BLOOD Report Release d Date/Time: Jun 24, 2022 06:55 PM BY Reporting Lab: [facility] AUTOMATED [facility] [facility] [address] COUNT Performing Lab: [facility] [place] [address] CBC & METAMYELOC 0.10 06/24 Specimen Type : BLOOD [place] DIFF YTES /2021 Comment: Clumpe d Platelets. Invitro artefact. No clinical significance. Platelet count may be higher than stated value. Plt count = 214 K- cmm Manual Differential Performed [facility] [#/VOLUME] Ordering Pro vider: JAYDE MENDOZA IN BLOOD Report Release d Date/Time: Jun 24, 2022 06:55 PM BY MANUAL Reporting Lab : [facility] [place] [address] Performing Lab: [facility] [place] [address] CBC & MYELOCYTES 0.05 08/08 Specimen Type : BLOOD [place] DIFF [#/VOLUME] /2021 Comment: Clu mped Platelets. Invitro artefact. No clinical significance. Platelet count may be higher than stated value. Plt count = 214 K-cmm Manual Differential Performed [facility] IN BLOOD Ordering Provi maria: JAYDE MENDOZA BY MANUAL Report Rele ed Date/Time: Jun 24, 2022 06:55 PM COUNT Reporting Lab: [facility] [place] [address] Performing Lab: [facility] [address] [place] [address] CBC & PLATELETS canc 06/24 Specimen Type: BLOOD [place] DIFF RETICULATE /2021 Comment: Clu mped Platelets. Invitro artefact. No clinical significance. Platelet count may be higher than stated value. Plt count = 214 K-cmm Manual Differential Performed [facility] D/100 Ordering Provid er: JAYDE MENDOZA PLATELETS Report Rele ed Date/Time: Jun 24, 2022 06:55 PM IN BLOOD Reporting Lab: [facility] [place] [address] AUTOMATED Performing La b: [facility] [place] [address] CBC & ERYTHROCYT PRESENT 06/24 Specimen Type : BLOOD [place] DIFF E /2021 Comment: Clumpe d Platelets. Invitro artefact. No clinical significance. Platelet count may be higher than stated value. Plt count = 214 K- cmm Manual Differential Performed [facility] MORPHOLOGY Ordering Pro vider: JAYDE MENDOZA FINDING Report Released Date/Time: Jun 24, 2022 06:55 PM [IDENTIFIE Reporting La b: [facility] R] [place] [address] BLOOD Performing Lab: [facility] [place] [address] COMPREHE CREATININE 1.3 0.7 - 1.2 06/24 H Specimen T ype: PLASMA [place] NSIVE [MASS/VOLU /2021 Comment: Can cellation reported to: Rajni Giraldo RN on 06/24/22@2004 by [place]. Test result cancelled due to hemolysis interference in sample. [facility] METABOLI ME] IN Ordering Provi maria: JAYDE MENDOZA C SERUM OR Report Release d Date/Time: Jun 24, 2022 06:55 PM PANEL+MG PLASMA Reporting Lab: [facility] [place] [address] Performing Lab: [facility] [place] [address] COMPREHE UREA 19 8 - 26 06/24 Specimen Type: PLASMA [place] NSIVE NITROGEN /2021 Comment: Cance llation reported to: Rajni Giraldo RN on 06/24/22@2003 by el. Test result cancelled due to hemolysis interference in sample. [facility] METABOLI [MASS/VOLU Ordering Pr ovider: JAYDE MENDOZA W C ME] IN Report Released Date/Time: Jun 24, 2022 06:55 PM PANEL+MG SERUM OR Reporting Lab : [facility] PLASMA [place] [address] Performing Lab: [facility] [place] [address] COMPREHE GLUCOSE 111 74 - 100 08/ H Specimen Type: PLASMA [place] NSIVE [MASS/VOLU /2021 Comment: Can cellation reported to: Rajni Giraldo RN on 06/24/22@2003 by el. Test result cancelled due to hemolysis interference in sample. IS [facility] [employer] METABOLI ME] IN Ordering Provi maria: JANNETTE MENDOZAED W C SERUM OR Report Release d Date/Time: Jun 24, 2022 06:55 PM PANEL+MG PLASMA Reporting Lab: [facility] [place] [address] Performing Lab: [facility] [place] [address] COMPREHE SODIUM 133 136 - 145 06/24 L Specimen Type : PLASMA [place] NSIVE [MOLES/VOL /2021 Comment: Can cellation reported to: Rajni Giraldo RN on 06/24/22@2003 by el. Test result cancelled due to hemolysis interference in sample. [facility] METABOLI UME] IN Ordering Provi maria: KELLY,JAYDE W C SERUM OR Report Release d Date/Time: Jun 24, 2022 06:55 PM PANEL+MG PLASMA Reporting Lab: [facility] [place] [address] Performing Lab: [facility] [place] [address] COMPREHE POTASSIUM canc 3.5 - 5.1 06/24 Specimen Ty pe: PLASMA [place] NSIVE [MOLES/VOL Comment: Can cellation reported to: Rajni Giraldo RN on 06/24/22@2003 by el. Test result cancelled due to hemolysis interference in sample. [facility] METABOLI UME] IN Ordering Provi maria: KELLYJAYDE ROBERTSON W C SERUM OR Report Release d Date/Time: Jun 24, 2022 06:55 PM PANEL+MG PLASMA Reporting Lab: [facility] [address] [facility] [address] Per[address] Lab: [facility] [address] [facility] [address] COMPREHE CHLORIDE 103 98 - 107 06/24 Specimen Type : PLASMA [place] NSIVE [MOLES/VOL Comment: Can cellation reported to: Rajni Giraldo RN on 06/24/22 by el. Test result cancelled due to hemolysis interference in sample. [facility] METABOLI UME] IN Ordering Provi maria: JAYDE MENDOZA W C SERUM OR Report Release d Date/Time: Jun 24, 2022 06:55 PM PANEL+MG PLASMA Reporting Lab: [facility] [address] [facility] [address] Performing Lab: [facility] [address] [facility] [address] COMPREHE CARBON 22 22 - 29 06/24 Specimen Type: PLASMA [place] NSIVE Comment: Cance llation reported to: Rajni Giraldo RN on 06/24/22 by el. Test result cancelled due to hemolysis interference in sample. [facility] METABOLI TOTAL Ordering Provi maria: JAYDE MENDOZA C [MOLES/VOL Report Relea sed Date/Time: Jun 24, 2022 06:55 PM PANEL+MG UME] IN Reporting Lab: [facility] SERUM OR [address] Kathya JONES [facility] [address] PLASMA Performing Lab: [facility] [address] [facility] [address] COMPREHE CALCIUM 9.4 8.4 - 10.2 06/24 Specimen Typ e: PLASMA [place] NSIVE [MASS/VOLU Comment: Can cellation reported to: Rajni Giraldo RN on 06/24/22 by el. Test result cancelled due to hemolysis interference in sample. [facility] METABOLI ME] IN Ordering Provi maria: JAYDE MENDOZA SERUM OR Report Release d Date/Time: Jun 24, 2022 06:55 PM PANEL+MG PLASMA Reporting Lab: [facility] [place] [address] Performing Lab: [facility] [address] [place] [address] COMPREHE PROTEIN canc 6.0 - 8.3 06/24 Specimen Type : PLASMA [place] NSIVE [MASS/VOLU /2021 Comment: Can cellation reported to: Rajni Giraldo RN on 06/24/22@2003 by el. Test result cancelled due to hemolysis interference in sample. [facility] METABOLI ME] IN Ordering Provi maria: JAYDE MENDOZA SERUM OR Report Release d Date/Time: Jun 24, 2022 06:55 PM PANEL+MG PLASMA Reporting Lab: [facility] [place] [address] Performing Lab: [facility] [place] [address] COMPREHE ALBUMIN 3.9 3.5 - 5.2 06/24 Specimen Type : PLASMA [place] NSIVE [MASS/VOLU /2021 Comment: Can cellation reported to: Rajni Giraldo RN on 06/24/22@2003 by el. Test result cancelled due to hemolysis interference in sample. [facility] METABOLI ME] IN Ordering Provi maria: JAYDE MENDOZA SERUM OR Report Release d Date/Time: Jun 24, 2022 06:55 PM PANEL+MG PLASMA Reporting Lab: [facility] [place] [address] Performing Lab: [facility] [place] [address] COMPREHE BILIRUBIN. 0.2 0.2 - 1.2 06/24 Specimen T ype: PLASMA [place] NSIVE TOTAL /2021 Comment: Cancel lation reported to: Rajni Giraldo RN on 06/24/22@2003 by el. Test result cancelled due to hemolysis interference in sample. [facility] METABOLI [MASS/VOLU Ordering Pr ovider: JAYDE MENDOZA ME] IN Report Released Date/Time: Jun 24, 2022 06:55 PM PANEL+MG SERUM OR Reporting Lab : [facility] PLASMA [place] [address] Performing Lab: [facility] [address] COMPREHE MAGNESIUM 2.3 1.6 - 2.6 06/24 Specimen Ty pe: PLASMA [place] NSIVE [MASS/VOLU /2021 Comment: Can cellation reported to: Rajni Giraldo RN on 06/24/22@2003 by el. Test result cancelled due to hemolysis interference in sample. [facility] METABOLI ME] IN Ordering Provi maria: JAYDE MENDOZA SERUM OR Report Release d Date/Time: Jun 24, 2022 06:55 PM PANEL+MG PLASMA Reporting Lab: [facility] [address] [facility] [address] Per[address] Lab: [facility] [address] [facility] [address] COMPREHE ANION GAP 8 5 - 15 06/24 Specimen Type : PLASMA [place] NSIVE IN SERUM /2021 Comment: Cance llation reported to: Rajni Giraldo RN on 06/24/22@2003 by el. Test result cancelled due to hemolysis interference in sample. IS [facility] METABOLI OR PLASMA Ordering Pro vider: JAYDE MENDOZA Report Released Date/Time: Jun 24, 2022 06:55 PM PANEL+MG Reporting Lab: [facility] [place] [address] Performing Lab: [facility] [address] [place] [facility] [address] COMPREHE ALKALINE 56 40 - 150 06/24 Specimen Type : PLASMA [place] NSIVE PHOSPHATAS /2021 Comment: Can cellation reported to: Rajni Giraldo RN on 06/24/22@2003 by el. Test result cancelled due to hemolysis interference in sample. IS [facility] METABOLI E Ordering Provi maria: JAYDE MENDOZA [ENZYMATIC Report Relea sed Date/Time: Jun 24, 2022 06:55 PM PANEL+MG ACTIVITY/V Reporting L ab: [facility] OLU[facility]] IN [address] [facility] [id number] SERUM OR Performing La b: [facility] PLASMA [address] [facility] [address] COMPREHE ALANINE 20 <55 - 55 06/24 Specimen Type: PLASMA [place] NSIVE AMINOTRANS /2021 Comment: Can cellation reported to: Rajni Giraldo RN on 06/24/22@2003 by el. Test result cancelled due to hemolysis interference in sample. [facility]I FERASE Ordering Provi maria: JAYDE MENDOZA [ENZYMATIC Report Relea sed Date/Time: Jun 24, 2022 06:55 PM PANEL+MG ACTIVITY/V Reporting L ab: [facility]CS OLUME] IN [facility] [address] SERUM OR Performing Lab : [facility] PLASMA [address] [facility] [address] COMPREHE ASPARTATE canc <34 - 34 06/24 Specimen Typ e: PLASMA [place] NSIVE AMINOTRANS /2021 Comment: Can cellation reported to: Rajni Giraldo RN on 06/24/22@2003 by el. Test result cancelled due to hemolysis interference in sample. IS [facility] HCS METABOLI FERASE Ordering Provi maria: JAYDE MENDOZA [ENZYMATIC Report Relea sed Date/Time: Jun 24, 2022 06:55 PM PANEL+MG ACTIVITY/V Reporting L ab: [facility] HCS OLUME] IN [facility] [address] SERUM OR Performing Lab : [facility] PLASMA [address] [facility] [address] COMPREHE GLOMERULAR 58 60 06/24 L Specimen Typ e: PLASMA [place] NSIVE FILTRATION /2021 Comment: Can cellation reported to: Rajni Giraldo RN on 06/24/22@2003 by el. Test result cancelled due to hemolysis interference in sample. IS [facility] METABOLI RATE/1.73 Ordering Pro vider: JAYDE MENDOZA SQ Report Released Date/Time: Jun 24, 2022 06:55 PM PANEL+MG M.PREDICTE Reporting L ab: [facility] H[facility] D [VOLUME [facility] [address] RATE/AREA] Performing L ab: [facility] H[facility] IN SERUM, [facility] [address] PLASMA OR BLOOD BY CREATININE -BASED FORMULA (CKD-EPI) COMPREHE CREATININE 1.2 0.7 - 1.2 05/15 Specimen T ype: PLASMA [place] NSIVE [MASS/VOLU /2021 No comment en tered. IS [facility] METABOLI ME] IN Ordering Provi maria: ROSY FAITH SERUM OR Report Release d Date/Time: April 11, 2022 12:04 PM PANEL+MG PLASMA Reporting Lab: [facility] [address] [facility] [address] Performing Lab: [facility] [place] [address] [facility] [address] COMPREHE UREA 25 8 - 26 05/15 Specimen Type: PLASMA [place] NSIVE No comment ente red. IS [facility] METABOLI [MASS/VOLU Ordering Pr ovider: ROSY FAITH] IN Report Released Date/Time: April 11, 2022 12:04 PM PANEL+MG SERUM OR Reporting Lab : [facility] PLASMA [address] [facility] [address] Performing Lab: [facility] [address] [facility] [address] COMPREHE GLUCOSE 105 74 - 100 05/15 H Specimen Type: PLASMA [place] NSIVE [MASS/VOLU /2021 No comment en tered. IS [facility] METABOLI ME] IN Ordering Provi maria: ROSY FAITH SERUM OR Report Release d Date/Time: April 11, 2022 12:04 PM PANEL+MG PLASMA Reporting Lab: [facility] [address] [facility] [address] Performing Lab: [facility] [address] [facility] [address] COMPREHE SODIUM 139 136 - 145 05/15 Specimen Type : PLASMA [place] NSIVE [MOLES/VOL No comment en tered. IS [facility] METABOLI UME] IN Ordering Provi maria: ROSY FAITH SERUM OR Report Release d Date/Time: April 11, 2022 12:04 PM PANEL+MG PLASMA Reporting Lab: [facility] [address] [facility] [address] Performing Lab: [facility] [address] [facility] [address] COMPREHE POTASSIUM 4.7 3.5 - 5.1 05/15 Specimen Ty pe: PLASMA [place] NSIVE [MOLES/VOL /2021 No comment en tered. IS [facility] METABOLI UME] IN Ordering Provi maria: ROSY FAITH SERUM OR Report Release d Date/Time: April 11, 2022 12:04 PM PANEL+MG PLASMA Reporting Lab: [facility] [address] [facility] [address] Performing Lab: [facility] [address] [facility] [address] COMPREHE CHLORIDE 104 98 - 107 05/15 Specimen Type : PLASMA [place] NSIVE [MOLES/VOL /2021 No comment en tered. IS [facility] METABOLI UME] IN Ordering Provi maria: ROSY FAITH SERUM OR Report Release d Date/Time: April 11, 2022 12:04 PM PANEL+MG PLASMA Reporting Lab: [facility] [address] [facility] [address] Performing Lab: [facility] [address] [facility] [address] COMPREHE CARBON 26 - 05/15 Specimen Type: PLASMA [place] NSIVE No comment ente red. IS [facility] METABOLI TOTAL Ordering Provi maria: ROSY FAITH [MOLES/VOL Report Relea sed Date/Time: April 11, 2022 12:04 PM PANEL+MG UME] IN Reporting Lab: [facility] SERUM OR [facility] [address] PLASMA Performing Lab: [facility] [place] [address] [facility] [address] COMPREHE CALCIUM 9.5 8.4 - 10.2 05/15 Specimen Typ e: PLASMA [place] NSIVE [MASS/VOLU /2021 No comment en tered. IS [facility] METABOLI ME] IN Ordering Provi maria: ROSY FAITH SERUM OR Report Release d Date/Time: April 11, 2022 12:04 PM PANEL+MG PLASMA Reporting Lab: [facility] [address] [facility] [address] Performing Lab: [facility] [place] [address] [facility] [address] COMPREHE PROTEIN 7.2 6.0 - 8.3 05/15 Specimen Type : PLASMA [place] NSIVE [MASS/VOLU No comment en tered. IS [facility] METABOLI ME] IN Ordering Provi maria: ROSY FAITH SERUM OR Report Release d Date/Time: April 11, 2022 12:04 PM PANEL+MG PLASMA Reporting Lab: [facility] [address] [facility] [address] Performing Lab: [facility] [address] [facility] [address] COMPREHE ALBUMIN 4.2 3.5 - 5.2 05/15 Specimen Type : PLASMA [place] NSIVE [MASS/VOLU /2021 No comment en tered. IS [facility]CS METABOLI ME] IN Ordering Provi maria: ROSY FAITH SERUM OR Report Release d Date/Time: April 11, 2022 12:04 PM PANEL+MG PLASMA Reporting Lab: [facility] [address] [facility] [address] Performing Lab: [facility] [address] [facility] [address] COMPREHE BILIRUBIN. 0.5 0.2 - 1.2 05/15 Specimen T ype: PLASMA [place] NSIVE TOTAL /2021 No comment enter ed. IS [facility] METABOLI [MASS/VOLU Ordering Pr ovider: ROSY FAITH ME] IN Report Released Date/Time: April 11, 2022 12:04 PM PANEL+MG SERUM OR Reporting Lab : [facility] PLASMA [address] [facility] [address] Performing Lab: [facility] [address] [facility] [address] COMPREHE MAGNESIUM 1.8 1.6 - 2.6 05/15 Specimen Ty pe: PLASMA [place] NSIVE [MASS/VOLU /2021 No comment en tered. IS [facility] METABOLI ME] IN Ordering Provi maria: ROSY FAITH SERUM OR Report Release d Date/Time: April 11, 2022 12:04 PM PANEL+MG PLASMA Reporting Lab: [facility] [address] [facility] [address] Performing Lab: [facility] [address] [facility] [address] COMPREHE ANION GAP 9 5 - 15 05/15 Specimen Type : PLASMA [place] NSIVE IN SERUM /2021 No comment ente red. IS [facility] METABOLI OR PLASMA Ordering Pro vider: ROSY FAITH Report Released Date/Time: April 11, 2022 12:04 PM PANEL+MG Reporting Lab: [facility] [address] [facility] [address] Performing Lab: [facility] [address] [facility] [address] COMPREHE ALKALINE 55 40 - 150 05/15 Specimen Type : PLASMA [place] NSIVE PHOSPHATAS /2021 No comment en tered. IS [facility] METABOLI E Ordering Provi maria: ROSY FAITH [ENZYMATIC Report Relea sed Date/Time: April 11, 2022 12:04 PM PANEL+MG ACTIVITY/V Reporting L ab: [facility] OLUME] IN [facility] [address] SERUM OR Performing Lab : [facility] PLASMA [address] [facility] [address] COMPREHE ALANINE 19 <55 - 55 05/15 Specimen Type: PLASMA [place] NSIVE AMINOTRANS No comment en tered. IS [facility] METABOLI FERASE Ordering Provi maria: ROSY FAITH [ENZYMATIC Report Relea sed Date/Time: April 11, 2022 12:04 PM PANEL+MG ACTIVITY/V Reporting L ab: [facility] HCS OLUME] IN [facility] [address] SERUM OR Performing Lab : [facility] PLASMA [address] [facility] [address] COMPREHE ASPARTATE 28 <34 - 34 05/15 Specimen Typ e: PLASMA [place] NSIVE AMINOTRANS No comment en tered. IS [facility] H[facility] METABOLI FERASE Ordering Provi maria: ROSY FAITH [ENZYMATIC Report Relea sed Date/Time: April 11, 2022 12:04 PM PANEL+MG ACTIVITY/V Reporting L ab: [facility] OLUME] IN [facility] [address] SERUM OR Performing Lab : [facility] PLASMA [address] [facility] [address] COMPREHE CREAT 63 60 05/15 Specimen Type: PLASMA [place] NSIVE EGFR(CKD-E No comment en tered. IS [facility] METABOLI PI) Ordering Provi maria: ROSY FAITH Report Released Date/Time: April 11, 2022 12:04 PM PANEL+MG Reporting Lab: [facility] [address] [facility] [address] Performing Lab: [facility] [address] [facility] [address] TSH THYROTROPI 3.03 0.35 - 05/15 Specimen Type : PLASMA [place] W/REFLEX N 4.94 No comment ente red. IS [facility] TO FREE [UNITS/VOL Ordering Pro vider: ROSY FAITH T4 UME] IN Report Released Date/Time: April 11, 2022 12:04 PM SERUM OR Reporting Lab: [facility] PLASMA [address] [facility] [address] Performing Lab: [facility] [address] [facility] [address] Vital Signs Combined list of inpatient and outpatient Vital Signs from Department of Defense and Veterans Affairs, ranging from 12 months to all on record, depending upon the facility. Vital Sign Value Date Comments Source SYSTOLIC BLOOD PRESSURE 132 06/25/2022 01:05:00 [place] [facility] DIASTOLIC BLOOD PRESSURE 85 06/25/2022 01:05:00 [facility] PULSE OXIMETRY 94% 06/25/2022 01:05:00 [place] [facility] TEMPERATURE 98.2 06/25/2022 01:05:00 [place] [facility] PULSE 59 06/25/2022 01:05:00 [place] [facility] SYSTOLIC BLOOD PRESSURE 99 06/24/2022 18:00:00 [place] [facility] DIASTOLIC BLOOD PRESSURE 64 06/24/2022 18:00:00 [place] [facility] PAIN 8 06/24/2022 18:00:00 [place] [facility] TEMPERATURE 97.5 06/24/2022 18:00:00 [place] [facility] PULSE 69 06/24/2022 18:00:00 [place] [facility] RESPIRATION 15 06/24/2022 18:00:00 [place] [facility] SYSTOLIC BLOOD PRESSURE 120 05/15/2022 12:50:41 [place] [facility] DIASTOLIC BLOOD PRESSURE 77 05/15/2022 12:50:41 [place] [facility] PULSE OXIMETRY 94% 05/15/2022 12:50:41 [place] [facility] WEIGHT 123.9 05/15/2022 12:50:41 [place] [facility] BMI 23kg/m2 05/15/2022 12:50:41 [place] [facility] PAIN 0 05/15/2022 12:50:41 [place] [facility] HEIGHT 61.811 05/15/2022 12:50:41 [place] [facility] TEMPERATURE 99 05/15/2022 12:50:41 [place] [facility] PULSE 63 05/15/2022 12:50:41 [place] [facility] RESPIRATION 16 05/15/2022 12:50:41 [place] [facility] SYSTOLIC BLOOD PRESSURE 131 04/12/2022 08:13:02 [place] [facility] DIASTOLIC BLOOD PRESSURE 82 04/12/2022 08:13:02 [place] [facility] PULSE OXIMETRY 93% 04/12/2022 08:13:02 [place] [facility] WEIGHT 122.1 04/12/2022 08:13:02 [place] [facility] BMI 22kg/m2 04/12/2022 08:13:02 [place] [facility] PAIN 0 04/12/2022 08:13:02 [place] [facility] TEMPERATURE 98.5 04/12/2022 08:13:02 [place] [facility] PULSE 100 04/12/2022 08:13:02 [place] [facility] RESPIRATION 18 04/12/2022 08:13:02 [place] [facility] SYSTOLIC BLOOD PRESSURE 135 04/10/2022 10:58:06 [place] [facility] DIASTOLIC BLOOD PRESSURE 84 04/10/2022 10:58:06 [facility] PULSE OXIMETRY 96% 04/10/2022 10:58:06 [place] [facility] WEIGHT 120.9 04/10/2022 10:58:06 [place] [facility] BMI 22kg/m2 04/10/2022 10:58:06 [place] [facility] TEMPERATURE 98.7 04/10/2022 10:58:06 [place] [facility] PULSE 76 04/10/2022 10:58:06 [place] [facility] RESPIRATION 20 04/10/2022 10:58:06 [place] [facility] Encounters Combined list of: 1) Encounters from Department of Veterans Affairs facilities going back up to the last 18 months, not all VA inpatient encounters are included; 2) Encounters from the Department of Defense facilities going back up to 280 months. Location Location Encounter Encounter Reason Attending ADM DC Stat us Disposition Source Details Type Number For Provider Date Date Visit ADM 95783-1.61 Diagnos JODI ZAIDI 01/12 [place] SARSCOV2 [id number] is: NE [place] [facility] A 30MCG/0.3M 11 ICD-10- CBOC L 1ST CM Z23 Encount er for immuniz ation<b r/>with Provide r Comment s: Encount er for Immuniz ation OFFICE O/P 08386-5.61 Diagnos [place] 01/12 [place] EST MOD [id number] is: RRY [place] [facility] 30-39 MIN ICD-10- HCS CM M05.9 Rheumat oid arthrit is with rheumat oid factor, unspeci fied
with Provide r Comment s: Seropos itive Rheumat oid arthrit is ADM 58161-1 Diagnos JHONNY 01/31 [place] SARSCOV2 [id number] is: ,LAUREN O [place] [facility] 30MCG/0.3M ICD-10- M HCS L 2ND CM Z23 Encount er for immuniz ation<b r/>with Provide r Comment s: Encount er for Immuniz ation Outpatient 29906-603/19 [place] [id number] Diagnos [place], 03/20 [place] EST MOD [id number] is: RRY [place] [facility] 30-39 MIN ICD-10- HCS CM L40.50 Arthrop athic psorias is, unspeci fied
with Provide r Comment s: Psoriat ic arthrit is OFFICE O/P Diagnos [facility], 06/01 [place] EST MOD [id number] is: RRY A [facility] [facility] 30-39 MIN ICD-10- HCS CM M06.9 Rheumat oid arthrit is, unspeci fied
with Provide r Comment s: Seropos itive rheumat oid arthrit is (SCT [id number] 05) Outpatient 41032-7.06/01 [place] En[facility] [id number] [facility] Diagn[facility] MARYELLEN LEON 06/01 [place] EST LOW [id number] is: H [place] [facility] 20-29 MIN ICD-10- HCS CM I25.10 Athscl heart disease of [place] coronar y artery w/o ang pctrs<b r/>with Provide r Comment s: CAD - Coronar y artery disease (SCT [id number] 8) Outpatient 37524-6 Yasmeen CHASE 06/13 [place] Encounter [id number] [facility] Diagnos [place], 06/19 [place] EST MOD [id number] is: RRY [place] [facility] 30-39 MIN ICD-10- HCS CM M06.9 Rheumat oid arthrit is, unspeci fied
with Provide r Comment s: Seropos itive rheumat oid arthrit is ([facility] [id number] 05) Outpatient 69988-5.61 06/19 [place] Encounter [id number] /2021 [place] [facility] OFFICE O/P 10747-1.61 Diagnos SCHEBARBIER,R 07/11 [place] EST MOD [id number] is: H[place]EN [place] [facility] 30-39 MIN ICD-10- HCS CM H25.13 Age-rel ated nuclear catarac t, bilater al
with Provide r Comment s: Age-rel ated nuclear catarac t, bilater al Outpatient 33639-3.61 07/31 [place] Encounter [id number] [facility] 62705-3 Diagnos [place],JE 09/28 [place] EST MOD [id number] is: RRY [place] [facility] 30-39 MIN ICD-10- HCS CM M06.9 Rheumat oid arthrit is, unspeci fied
with Provide r Comment s: Seropos itive rheumat oid arthrit is ([facility] [id number] ) ADM 48786-4.61 Diagnos HUDLOW,TRISTON 09/28 [place] SARSCOV2 [id number] is: ECCA [facility] [facility] 30MCG/0.3M ICD-10- HCS L BST CM Z23 Encount er for immuniz ation<b r/>with Provide r Comment s: Encount er for Immuniz ation Outpatient 43624-7.61 11/17 [place] Encounter [id number] /2022 [place] [facility] Outpatient 27201-4.61 11/20 [place] En[place] [id number] [place] [facility] Outpatient 96655-8.61 11/20 [place] Encounter [id number] [facility] Outpatient 92878-2.61 Yasmeen CHASE 11/20 [place] Encounter [id number] ERR [facility] Outpatient 69200-9.61 12/06 [place] Encounter [id number] /2021 [facility] EMERGENCY 81684-3.61 Diagnos 01/07 [place] DEPT VISIT [id number] is: /2021 [facility] ICD-10- HCS CM K02.9 Dental caries, unspeci fied
with Provide r Comment s: Dental Caries, unspeci fied OFFICE O/P 13845-1.61 Diagnos [place], 01/11 [place] EST MOD [id number] is: RRY A [facility] 30-39 MIN ICD-10- HCS CM M06.9 Rheumat oid arthrit is, unspeci fied
with Provide r Comment s: Seropos itive rheumat oid arthrit is ([facility] [id number] 05) Outpatient 95629-5.61 04/ [place] Encounter [id number] /2021 [facility] Outpatient 51703-0.61 CHRISTLE,T 02/17 [place] Encounter [id number] ERRY [facility] Outpatient 60549-7.61 CHRISTLE,T 02/18 [place] Encounter [id number] ERR [facility] Outpatient 89600-3.61 02/21 [place] Encounter [id number] /2021 [facility] Outpatient 62260-1.61 02/26 [place] Encounter [id number] /2021 [facility] OFFICE O/P 16845-1.61 Diagnos LEON03/05 [place] EST LOW [id number] is: [facility] 20-29 MIN ICD-10- HCS CM I47.1 Suprave ntricul ar tachyca rdia
with Provide r Comment s: Multifo sergio atrial tachyca rdia (SNOMED CT [id number] 0) ECG 78061-8.61 Diagnos LEON,MARYELLEN 03/12 [place] MONIT/REPR [id number] is: [facility] T UP TO 48 ICD-10- HCS HRS CM Z13.6 Encount er for screeni ng for cardiov ascular disorde rs
with Provide r Comment s: Encount er for Screeni ng for Cardiov ascular Disorde rs Outpatient 47177-5 05/ [place] Encounter [id number] /2022 [facility] 36234-0 05/ [place] Encounter [id number] /2021 [facility] Outpatient 19284-6 RENA,T 03/19 [place] Encounter [id number] ERRY /2021 [facility] Outpatient 56442-0 05/10 [place] Encounter [id number] /2021 [facility] Outpatient 73070-0 05/ [place] Encounter [id number] /2021 [facility] Outpatient 01198-6 05/ [place] Encounter [id number] /2021 [facility] EXT 30968-9.61 Diagnos KIKIBRADL 04/04 [place] ECG>7D<15D [id number] is: EY A [facility] RECORDING ICD-10- HCS CM I48.92 Unspeci fied atrial flutter
Provide r Comment s: Unspeci fied Atrial Flutter Outpatient 95800-204/04 [place] Encounter [id number] /2021 [facility] HCS ELECTROCAR 84637-9 Diagnos AGUILAR,SE 04/10 [place] DIOGRAM [id number] is: [facility] H[facility] CM Z13.6 Encount er for screeni ng for cardiov ascular disorde rs
with Provide r Comment s: Encount er for Screeni ng for Cardiov ascular Disorde rs OFFICE 33155-4 Diagnos AB MARCELL 04/10 [place] CONSULTATI [id number] is: BIE L [facility] ON ICD-10- HCS CM I47.1 Suprave ntricul ar tachyca rdia
with Provide r Comment s: Multifo sergio atrial tachyca rdia (SCT [id number] 0) Outpatient 70450-804/10 [place] Encounter [id number] [facility] OFFICE O/P 03977-0 Diagnos MARYELLEN LEON 04/12 [place] EST SF [id number] is: H /2021 [place] [facility] 10-19 MIN ICD-10- HCS CM I48.0 Paroxys mal atrial fibrill ation<b r/>with Provide r Comment s: Paroxys mal atrial fibrill ation (SCT 7174132 02) [place] [address]-2 Diagnos ANKIT,KR 04/23 [place] DIG [id number] is: ISTIN Y /2021 [place] [facility] ASSMT&MGMT ICD-10- HCS 21+ CM Z79.01 group home (curren t) use of anticoa gulants
wi Provide r Comment s: supervisor intermediates (curren t) [place] [address]-7 Diagnos ANKIT,MARCI 04/24 [place] DIG [id number] is: ISTIN Y /2021 [place] [facility] ASSMT&MGMT ICD-10- HCS 11-20 CM Z79.01 group home (curren t) use of anticoa gulants
wi Provide r Comment s: supervisor intermediates (curren t) use [place] antico[place]ants [place] 90505-6 Diagnos HUSEYIN ARCOSPETRA 05/01 [place] PHONE CALL [id number] is: NA P /2021 [place] [facility] 11-20 MIN ICD-10- HCS CM Z71.89 Other specifi ed compliance counsel ing<br/ >with Provide r Comment s: Other specifi ed Dope Firer ing Outpatient 67265-405/03 [place] Encounter [id number] [facility] 10813-505/03 [place] Encounter [id number] [facility] COLONOSCOP 31500-7 Diagnos SANTO THAO 05/07 [place] Y AND [id number] is: VINCE R /2021 [place] [facility] BIOPSY ICD-10- HCS CM K64.8 Other hemorrh oids
with Provide r Comment s: Other Hemorrh oids Outpatient 60566-0.61 05/07 [place] Encounter [id number] [facility] Outpatient 14020-8 MAYELA MEDEL 05/08 [place] Encounter [id number] Z L [facility] Out[facility] 31456-6.61 05/09 [place] Encounter [id number] [facility] Outpatient 95046-205/15 [place] Encounter [id number] [facility] [place] 94645-1.05/15 [place] Encounter [id number] [facility] ELECTROCAR 03364-8 Diagnos CHARLES LOZOYAO 05/15 [place] DIOGRAM [id number] is: [facility] CM Z13.6 Encount er for screeni ng for cardiov ascular disorde rs
with Provide r Comment s: Encount er for Screeni ng for Cardiov ascular Disorde rs HEMOGLOBIN 86963-8.61 Diagnos ILIANA, 05/15 [place] [id number] is: OBI K /2021 [facility] [place] ICD-10- HCS CM I48.0 Paroxys mal atrial fibrill ation<b r/>with Provide r Comment s: Paroxys mal atrial fibrill ation ([facility] [id number]) OFFICE O/P [id number] Diagnos MARCELL,AB 05/15 [place] EST MOD [id number] is: BIE L [facility] [place] 30-39 MIN ICD-10- HCS CM I47.1 Suprave ntricul ar tachyca rdia
with Provide r Comment s: Multifo sergio atrial tachyca rdia ([facility]CT [id number]) Outpatient 81909-1 MIGUEL ÁNGEL 06/01 [place] Encounter [id number] ERICKSON RODRIGUEZ /2021 [facility] Outpatient 04385-6.61 SA VU 06/19 [place] Encounter [id number] RA R /2021 [facility] Out[place] [id number] 06/21 [place] Encounter [id number] [facility] Outpatient 24202-3.61 SYSTEM,CIS 06/24 [place] Encounter [id number] -ARK /2021 [facility] EMERGENCY 90172-7.61 Diagnos STANISLAW MENDOZA 06/24 [place] DEPT VISIT [id number] is: D W [facility] ICD-10- [facility] CM R62.7 Adult failure to thrive< br/>wit h Provide r Comment s: Adult Failure to Thrive Outpatient 23461-5.61 06/24 [place] Encounter [id number] /2021 [facility] Inpatient 00090-8.61 Admit LISA HILLS 06/24 [place] Encounter [id number] Reason: SEIN ISSAK /2021 [facility] REC DC [facility]<b r/> Inpatient 04197-6.61 06/25 06/25 [place] Encounter [id number] /2021 [facility] Inpatient 88599-7.61 06/25 06/25 [place] Encounter [id number] /2021 [facility] Inpatient 04701-8.61 06/25 06/25 [place] Encounter [id number] /2021 [facility] Social History Combined list of available smoking, tobacco, and other social history [facility]. Social History Type Response Date Comment Source Tobacco smoking [facility]BACCO FOR[facility]ER [facility] status [facility]IS History of tobacco DC-TOBACCO QUIT 1 TO < 03/05/2022 [facility] use 5 YRS History of tobacco DC-TOBACCO NEVER USED 06/01/2021 [facility] use History of tobacco DC-TOBACCO QUIT < 1 12/31/2019 [place] [facility] use YEAR History of tobacco VA-TOBACCO FORMER USER 03/23/2019 [facility] use History of tobacco CURRENT TOBACCO USER 06/10/2018 M [facility] [facility] use History of tobacco INPT TOBACCO COUNSELING 05/10/2018 [facility] use History of tobacco FORMER TOBACCO USE <1Y 08/29/2017 [facility] use History of tobacco INPT TOBACCO COUNSELING 05/26/2017 [facility] use History of tobacco INPT TOBACCO COUNSELING 05/03/2017 [facility] use History of tobacco FORMER TOBACCO USE <1Y 09/18/2016 [facility] use History of tobacco INPT TOBACCO USE - PT 08/10/2016 [facility] use REFUSED History of tobacco INPT TOBACCO COUNSELING 08/01/2016 [facility] use History of tobacco CURRENT TOBACCO USER 02/08/2015 [facility] use History of tobacco CURRENT TOBACCO USER 11/29/2013 [facility] use History of tobacco PATIENT IS TOBACCO USER 11/26/2013 [facility] use History of tobacco CURRENT TOBACCO USER 11/27/2012 [facility] use History of tobacco CURRENT TOBACCO USER 12/27/2011 [facility] use History of tobacco CURRENT TOBACCO USER 01/22/2011 [facility] use History of tobacco CURRENT TOBACCO USER 03/13/2010 [facility] use Plan of Care List of future care activities from [facility] facilities. Additional future care activities may be listed in the Assessment and Plan section. Date/Time Care Activity Care Activity Detail Facility 07/12/2022 AMBULATORY - SURGERY AMBULATORY - SURGERY [facility] Advance Directives List of completed, amended, or rescinded Advance Directives on record at [facility] facilities. An actual copy of the Directive is not included. Date Advance Directive Provider Source 02/25/2018 ADVANCE DIRECTIVE [facility] 02/24/2018 ADVANCE DIRECTIVE DISCUSSION [facility] 05/26/2017 CLINICAL WARN[address] [facility] 05/03/2017 CLINICAL WARN[address]H [address] [facility] 08/10/2016 CLINICAL WARNING [facility]EL [facility]CE[facility] 08/02/2016 CLINICAL WARNING [facility]
--- OUTSIDE RECORDS SUMMARY | 2022-06-25 21:38 | XMS_ITS | Continuity of Care Document ---
:1950 Author Organization [facility] Care Team Providers Name Role Phone [facility] Unavailable Unavailable Problems Combined list of problems from Department of Defense and [facility] Affairs facilities. It does not include entries that were removed or entered in error. Problem Status Onset Problem Date of Comments Source Date Type Resolution Acute non-ST segment Active Condition [place] elevation myocardial [facility] infarction Alcohol abuse Active Condition [place] (SNOMED CT 04768631) [facility] Anemia (SNOMED CT Active Condition [place] [id number][place] [facility] Ankle pain Active Condition [place] [facility] Benign essential Active Condition [place] hypertension (OMED [facility] CT 5661209) CAD - Coronary Active Condition Sep 18, [place] artery disease 2015 Entered [facility] By: MARYELLEN LEON Comment: s/p stenting Cannabis abuse Active Condition [place] (SNOMED CT 21498385) [facility] Chronic kidney Active Condition [place] disease [facility] Drug monitoring done Active Condition [facility] Elevated liver Active Condition [place] enzymes level [facility] Gastroesophageal Active Condition [place] reflux disease [facility] (SNOMED CT 266618965) Hand pain Active Condition [place] [facility] Hearing loss * Active Condition [place] (ICD-9-CM 389.9) [facility] HTN - Hypertension Active Condition [place] (SNOMED CT 05741483) [facility] Hyperlipidemia Active Condition [place] (SNOMED CT 21754103) [facility] Jt Replcmnt Stat, Active Condition [place] Knee [facility] Long-term current Active Condition [place] use of anticoagulant [facility] 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, [place]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 Entered [facility] By: MARYELLEN LEON Comment: hospitalized at [facility] in 02/2022 Pain in joint Active Condition May 14, [place] involving shoulder 2010 Entere d [facility] region (ICD-9-CM By: 719.41) MARYELLEN LEON Comment: RIGHT Pain of right Active Condition [place] shoulder joint [facility] Paroxysmal atrial Active Condition [place] fibrillation [facility] Rhinitis Active Condition [place] [facility] Rib fracture Active Condition Dec 15, [place] 2018 Entered [facility] By: MARYELLEN LEON Comment: s/p fall 11/2018, RIGHT rib Seropositive Active Condition [place] rheumatoid arthritis [facility] Knee: arthralgia * Inactive Condition 05/04/2010 [place] (ICD-9-CM 719.46) [facility] Admit Reason: FALL active Diagnosis [place] REC DC O[facility] PLACE [facility] Diagnosis: ICD-10-CM active Diagnosis [place] R62.7 Adult failure [facility] to thrivewith Provider Comments: Adult Failure to Thrive Diagnosis: ICD-10-CM active Diagnosis [place] I47.1 [facility] Supraventricular tachycardiawith Provider Comments: Multifocal atrial tachycardia (SCT [id number]) Diagnosis: ICD-10-CM active Diagnosis [place] I48.0 Paroxysmal [facility] atrial fibrillationwith Provider Comments: Paroxysmal atrial fibrillation (SCT [id number]) Diagnosis: ICD-10-CM active Diagnosis [place] Z13.6 Encounter for [facility] screening for cardiovascular disorderswith Provider Comments: Encounter for Screening for Cardiovascular Disorders Diagnosis: ICD-10-CM active Diagnosis [place] K64.8 Other [facility] hemorrhoidswith Provider Comments: Other Hemorrhoids Diagnosis: ICD-10-CM active Diagnosis [place] Z71.89 Other [facility] specified counselingwith Provider Comments: Other specified Counseling Diagnosis: ICD-10-CM active Diagnosis [place] Z79.01 prison [facility] (current) use of anticoagulantswith Provider Comments: prison (current) use of anticoagulants Diagnosis: ICD-10-CM active Diagnosis [place] I48.92 Unspecified V A [facility] atrial flutterwith Provider Comments: Unspecified Atrial Flutter Diagnosis: ICD-10-CM active Diagnosis [place] I47.1 [facility] Supraventricular tachycardiawith Provider Comments: Multifocal atrial tachycardia (SNOMED CT 03890913) Diagnosis: ICD-10-CM active Diagnosis [place] M06.9 Rheumatoid [facility] arthritis, unspecifiedwith Provider Comments: Seropositive rheumatoid arthritis (SCT [id number]) Diagnosis: ICD-10-CM active Diagnosis [place] K02.9 Dental caries, [facility] unspecifiedwith Provider Comments: Dental Caries, unspecified Diagnosis: ICD-10-CM active Diagnosis [place] Z23 Encounter for [facility] immunizationwith Provider Comments: Encounter for Immunization Diagnosis: ICD-10-CM active Diagnosis [place] H25.13 Age-related V A [facility] nuclear cataract, bilateralwith Provider Comments: Age-related nuclear cataract, bilateral Diagnosis: ICD-10-CM active Diagnosis [place] I25.10 Athscl heart [facility] disease of [place] coronary artery w/o ang pctrswith Provider Comments: CAD - Coronary artery disease ([facility] 72049616) Diagnosis: ICD-10-CM active Diagnosis [place] L40.50 Arthropathic [facility] psoriasis, unspecifiedwith Provider Comments: Psoriatic arthritis Diagnosis: ICD-10-CM active Diagnosis [place] M05.9 Rheumatoid [facility] arthritis with rheumatoid factor, unspecifiedwith Provider [...] Date ACETAMINOPH TAKE TWO ORALLY ACTIVE 02/09/2023 [id number] H OANG,VIE 02/11/ [place] 500MG TABLETS 2 T H 2021 [place] TAB BY MOUTH [facility] FOUR TIMES A DAY NEEDED *NOT TO EXCEED 4000MG IN 24 HOURS* FOR PAIN ACETAMINOPH TAKE TWO ORALLY DISCONT 01/13/2022 [id number] LEON,VIE 01/16/ [place] 500MG TABLETS INUED 2 T H 2020 [place] TAB BY MOUTH [facility] FOUR TIMES A DAY NEEDED *NOT TO EXCEED 4000MG IN 24 HOURS* FOR PAIN ADALIMUMAB INJECT SUBCUT ACTIVE 01/12/2023 [id number] RIN DEN,TI 02/08/ [place] 40MG/0.8ML 40 MG ANEOUS 2 MOTHY D 2021 [place] A INJ,PEN,KIT UNDER HCS THE SKIN EVERY 2 WEEKS ADALIMUMAB INJECT SUBCUT DISCONT 09/29/2022 [id number] MO LITOR,J 10/01/ [place] 40MG/0.8ML 40 MG ANEOUS INUE 2 ERRY A 2020 [place] INJ,PEN,KIT UNDER HCS THE SKIN EVERY 2 WEEKS ADALIMUMAB INJECT SUBCUT DISCONT 01/13/2022 [id number] AL VANPOUR 01/16/ [place] 40MG/0.8ML 40 MG ANEOUS INUE 1 ,RAGHAVENDRA 2020 [place] INJ,PEN,KIT UNDER HCS THE SKIN EVERY 2 WEEKS AMIODARONE TAKE ONE ORALLY SUSPEND 05/16/2023 [id number] M CCRARY,A 05/16/ [place] HCL TABLET ED 2 BBIE L 2021 [place] (PACERONE) BY MOUTH HCS 200MG TAB EVERY DAY FOR HEART RHYTHM - TAKE WITH FOOD AMIODARONE TAKE ONE ORALLY DISCONT 07/09/2022 [id number] M CCRARY,A 04/10/ [place] HCL TABLET INUED 2 BBIE L 2021 [place] (PACERONE) BY MOUTH (EDIT) HCS 200MG TAB TWICE A DAY FOR 30 DAYS, THEN TAKE ONE TABLET EVERY DAY FOR HEART RHYTHM - TAKE WITH FOOD APIXABAN TAKE ONE ORALLY ACTIVE 06/06/2023 [id number] EDUARDO ON, 06/06/ [place] 5MG TAB TABLET 2 HANG 2021 [place] BY MOUTH [facility] EVERY 12 HOURS TO PREVENT BLOOD CLOTS and STROKE. APIXABAN TAKE ONE ORALLY DISCONT 04/24/2023 [id number] VIC ACUNAK 04/24/ [place] 5MG TAB TABLET INUED 2 RISTIN Y 2021 [place] BY MOUTH (EDIT) HCS EVERY 12 HOURS TO PREVENT BLOOD CLOTS and STROKE. APIXABAN TAKE ONE ORALLY DISCONT 05/10/2022 [id number] [facility] RARY,A 04/10/ [place] 5MG TAB TABLET INUED 2 BBIE L 2021 [place] BY MOUTH (EDIT) HCS EVERY 12 HOURS TO PREVENT BLOOD CLOTS and STROKE. ASPIRIN TAKE ONE ORALLY DISCONT 06/02/2022 [id number] DANAY NG,VIE 07/26/ [place] 81MG TAB,EC TABLET INUED 2 T H 2020 [place] BY MOUTH HCS EVERY DAY ASPIRIN TAKE ONE ORALLY DISCONT 12/26/2021 [id number] DANAY NG,VIE 12/27/ [place] 81MG TAB,EC TABLET INUE 1 T H 2020 [place] BY MOUTH HCS EVERY DAY ATORVASTATI TAKE ONE ORALLY ACTIVE 03/06/2023 [id number] H OANG,VIE 03/05/ [place] CA 80MG TABLET 2 T H 2021 [place] TAB BY MOUTH HCS AT BEDTIME FOR CHOLESTE ROL REPLACES SIMVASTA TIN ATORVASTATI TAKE ORALLY DISCONT 06/02/2022 [id number] H OAJATIN CASTRO 06/03/ [place] 80MG ONE-HALF INUED 2 T H 2020 [place] TAB TABLET (EDIT) HCS BY MOUTH AT BEDTIME FOR CHOLESTE ROL REPLACES SIMVASTA TIN CARBOXYMETH INSTILL BOTH ACTIVE 07/12/2022 [id number] SCHEU RER, 07/12/ [place] YLCELLULOSE 1 DROP EYES 1 ANGELA A 2020 [place] A NA 0.25% IN BOTH HCS SOLN,OPH EYES FOUR TIMES A DAY CEPHALEXIN TAKE 1 ORALLY ACTIVE JATIN LEON [place] 500MG CAP CAPSULE T H 2021 [place] BY MOUTH HCS FOUR TIMES A DAY CHOLECALCIF TAKE ONE ORALLY 06/02/2022 [id number] CAROLYNCHARLESNina 06/03/ [place] RONAK 25MCG TABLET 2 T H 2020 [place] (1,000UNIT) BY MOUTH HCS TAB EVERY DAY CYANOCOBALA TAKE ONE ORALLY ACTIVE 03/06/2023 [id number] LEON,VIE 05/30/ [place] MIN 1000MCG TABLET 2 T H 2021 [place] TAB BY MOUTH HCS EVERY DAY CYANOCOBALA TAKE ONE ORALLY DISCONT 06/02/2022 [id number] LEON,VIE 06/03/ [place] MIN 1000MCG TABLET INUED 2 T H 2020 [place] TAB BY MOUTH HCS EVERY DAY DOCUSATE NA TAKE TWO ORALLY ACTIVE JATIN LEON 06/24 / [place] 50MG/SENNOS TABLETS T H 2021 [place] A IDES 8.6MG BY MOUTH HCS TAB TWICE A DAY FLUTICASONE SPRAY 1 NASAL 06/02/2022 [id number] JATIN LEON 06/03/ [place] PROPIONATE SPRAY IN 1 T H 2020 [place] A 50MCG/SPRAY EACH HCS SOLN,NASAL, NOSTRIL 16GM TWICE A DAY NEEDED FOR RUNNY NOSE USE REGULARL Y FOR RELIEF OF ALLERGIE S/CONGES TION FOLIC ACID TAKE ONE ORALLY ACTIVE 03/06/2023 [id number] H OACHARLES CASTROE 04/25/ [place] 1MG TAB TABLET 2 T H 2021 [place] BY MOUTH HCS EVERY DAY FOLIC ACID TAKE ONE ORALLY DISCONT 01/12/2023 [id number] RINDEN,TI 02/04/ [place] 1MG TAB TABLET INUED 2 MOTHY D 2021 [place] BY MOUTH HCS EVERY DAY FOLIC ACID TAKE ONE ORALLY DISCONT 01/13/2022 [id number] ALVANPOUR 02/19/ [place] 1MG TAB TABLET INUE [...] DAY NEEDED ISOSORBIDE TAKE ORALLY ACTIVE 03/06/2023 [id number] LEON, VIE 03/13/ [place] MONONITRATE ONE-HALF 2 T H 2021 [place] 60MG TAB,SA TABLET HCS BY MOUTH EVERY DAY ISOSORBIDE TAKE ORALLY DISCONT 03/22/2022 [id number] FB-SAG ER, 02/21/ [place] MONONITRATE ONE-HALF INUED 2 ANGELA 2021 ent o f 60MG TAB,SA TABLET BY MOUTH s EVERY Affairs DAY ISOSORBIDE TAKE ONE ORALLY DISCONT 06/02/2022 [id number] LEON,VIE 06/23/ [place] MONONITRATE TABLET INUED 2 T H 2020 [place] 60MG TAB,SA BY MOUTH HCS EVERY DAY FOR CHEST PAIN ISOSORBIDE TAKE ONE ORALLY DISCONT 07/29/2021 [id number] LEON,VIE 09/12/ [place] MONONITRATE TABLET INUE 1 T H 2019 [place] 60MG TAB,SA BY MOUTH HCS EVERY DAY FOR CHEST PAIN LIDOCAINE APPLY TOPICA ACTIVE JATIN LEON 06/24/ [place] PATCH 1-3 LLY T H 2021 [place] PATCH 4% HCS TOPICALL Y EVERY DAY LORATADINE TAKE ONE ORALLY DISCONT 07/29/2021 [id number] H ZINAJATIN 09/04/ [place] 10MG TAB TABLET INUE 1 T H 2019 [place] BY MOUTH HCS EVERY DAY FOR ALLERGY SYMPTOMS LORATADINE TAKE ONE ORALLY 06/02/2022 [id number] H ZINAJATIN 06/23/ [place] 10MG TAB TABLET 2 T H 2020 [place] BY MOUTH HCS EVERY DAY FOR ALLERGY SYMPTOMS MAGNESIUM TAKE 1 ORALLY 04/05/2022 [id number] RANWEI LER 03/06/ [place] CITRATE BOTTLE 2 ,VJ B 2021 [place] LIQUID,ORAL BY MOUTH HCS ONCE AT 12PM (NOON) ONE DAY BEFORE PROCEDUR E FOR COLON PREP METHOCARBAM TAKE ORALLY ACTIVE JATIN LEON 06/24/ [place] TAB ONE-HALF T H 2021 [place] TO ONE HCS TABLET BY MOUTH EVERY 6 HOURS NEEDED METOPROLOL TAKE ONE ORALLY ACTIVE 03/06/2023 [id number] H JATIN IZAGUIRRE 03/13/ [place] TARTRATE TABLET 2 T H 2021 [place] 50MG TAB BY MOUTH HCS TWICE A DAY METOPROLOL TAKE ONE ORALLY DISCONT 03/22/2022 [id number] F B-GABRIEL, m TARTRATE TABLET INUED 2021 ent of 50MG TAB BY MOUTH [employer] TWICE A s DAY Affairs METOPROLOL TAKE ORALLY DISCONT 06/02/2022 [id number] CHARLES LEONE 08/07/ [place] TARTRATE ONE-HALF INUED 2 T H 2020 [place] 50MG TAB TABLET HCS BY MOUTH TWICE A DAY FOR HEART METOPROLOL TAKE ORALLY DISCONT 07/29/2021 [id number] JATIN LEON 08/18/ [place] TARTRATE ONE-HALF INUE 1 T H 2019 [place] 50MG TAB TABLET HCS BY MOUTH TWICE A DAY FOR HEART OXYCODONE TAKE ORALLY ACTIVE JATIN LEON 06/24/ [place] TAB ONE-HALF T H 2021 [place] TO ONE HCS TABLET BY MOUTH EVERY 4 HOURS NEEDED PANTOPRAZOL TAKE ONE ORALLY ACTIVE 03/06/2023 [id number] LEON,VIE 04/30/ [place] NA 40MG TABLET 2 T H 2021 [place] TAB,EC BY MOUTH HCS EVERY MORNING ONE-HALF HOUR BEFORE EATING TO DECREASE STOMACH ACID TAKE ON AN EMPTY STOMACH, AT LEAST 30 MINUTES PRIOR TO MEAL PANTOPRAZOL TAKE ONE ORALLY DISCONT 06/02/2022 [id number] LEON,VIE 08/07/ [place] 40MG TABLET INUED 2 T H 2020 [place] TAB,EC BY MOUTH HCS EVERY MORNING ONE-HALF HOUR BEFORE EATING TO DECREASE STOMACH ACID TAKE ON AN EMPTY STOMACH, AT LEAST 30 MINUTES PRIOR TO MEAL PANTOPRAZOL TAKE ONE ORALLY DISCONT 07/29/2021 [id number] LEON,VIE 08/09/ [place] 40MG TABLET INUE 1 T H 2019 [place] TAB,EC BY MOUTH HCS EVERY MORNING ONE-HALF HOUR BEFORE EATING TO DECREASE STOMACH ACID TAKE ON AN EMPTY STOMACH, AT LEAST 30 MINUTES PRIOR TO MEAL PEG-3350/EL TAKE 1 ORALLY 04/05/2022 [id number] RA NWEILER 03/06/ [place] ECTROLYTES CONTAINE 2 [...] DAY PREDNISONE TAKE ONE ORALLY ACTIVE 01/12/2023 [id number] R INDEN,TI 01/19/ [place] 10MG TAB TABLET 2 MOTHY D 2021 [place] BY MOUTH HCS EVERY DAY PREDNISONE TAKE ONE ORALLY DISCONT 03/21/2022 [id number] M OLVINICIUSJ 03/20/ [place] 10MG TAB TABLET INUE 1 ERRY A 2020 [place] BY MOUTH HCS EVERY DAY SULFASALAZI TAKE TWO ORALLY ACTIVE 01/12/2023 [id number] RINDEN,TI 01/19/ [place] 500MG TABLETS 2 MOTHY D 2021 [place] TAB BY MOUTH HCS TWICE A DAY SULFASALAZI TAKE TWO ORALLY DISCONT 03/21/2022 [id number] ORLANDOJ 03/20/ [place] 500MG TABLETS INUE [...] [place] to adverse to adverse 1 IS [facility] reactions reactions to drug to drug (finding) (finding) Immunizations Combined list of available immunizations from the Department of Defense and Veterans Affairs facilities. Immunization Series Date Administered Site Reaction Lot CVX Drug St atus Comments Source Given By Number Code Night Court Magistrate COVID-19 4 complet PFR; [place] 2021 ed [id number]; [place] MRNA, LNP-S, 02 HCS PF, 30 2 MCG/0.3 ML DOSE, JJ-SUCROSE (AGES 12+ YEARS) COVID-19 3 complet PRF; [place] 2020 ed [id number]; [place] MRNA, LNP-S, 02 HCS PF, 30 2 MCG/0.3 ML DOSE INFLUENZA, complet [place] INJECTABLE, 2020 ed [place] QUADRIVALENT, HCS PRESERVATIVE FREE COVID-19 2 complet PFR; [place] 2020 ed [id number]; [place] MRNA, LNP-S, 02 HCS PF, 30 1 MCG/0.3 ML DOSE COVID-19 1 complet PFR; [place] 2020 ed [id number]; [place] MRNA, LNP-S, 02 CBOC PF, 30 1 MCG/0.3 ML DOSE INFLUENZA, complet [place] INJECTABLE, 2019 ed [place] QUADRIVALENT, HCS PRESERVATIVE FREE INFLUENZA, complet [place] SEASONAL, 2018 ed [place] INJECTABLE, HC S PRESERVATIVE FREE ZOSTER 2 complet [place] RECOMBINANT 2018 ed [place] H[place] ZOSTER 1 complet [place] RECOMBINANT 2018 ed [place] HCS INFLUENZA, complet [place] SEASONAL, 2017 ed [place] INJECTABLE, HC S PRESERVATIVE FREE INFLUENZA, complet [place] HIGH DOSE 2016 [facility]FLUENZA, complet [place] SEASONAL, 2015 ed [place] INJECTABLE, HC S PRESERVATIVE FREE INFLUENZA, complet [place] HIGH DOSE 2014 ed [place] SEASONAL HCS PNEUMOCOCCAL complet [facility] [place] CONJUGATE PCV 2015 ed PHARM, [facility]20 [facility] 13 640,03/03 HCS INFLUENZA, complet [place] SEASONAL, 2013 ed [place] INJECTABLE, HC S PRESERVATIVE FREE PNEUMOCOCCAL, complet michelle ck and [place] UNSPECIFIED 2013 ed co,[id number] [facility] VA FORMULATION 6,25sep1 4 HCS INFLUENZA, complet [place] UNSPECIFIED 2013 ed [place] FORMULATION HC S INFLUENZA, complet [place] UNSPECIFIED 2012 ed [place] FORMULATION HC S ZOSTER LIVE complet [employer] [facility] [place] 2012 ed INC, OL [place] [id number], HCS [id number] [place]AP complet [employer] [place] 2009 ed hkline,ac [facility] [id number], HCS 01/03/12 Results Combined list of recent chemistry, hematology and other laboratory results from Department of Defense and Veterans Affairs, ranging from 15 months to all on record, depending upon the facility. Order Results Value Reference Date Interpretation Specimen Commen ts Source Name Range URINALYS COLOR OF YELLOW 06/24 Specimen Type: URINE [place] IS URINE /2021 No comment enter ed. IS [facility] Ordering Provid er: JAYDE MENDOZA Report Released Date/Time: Jun 24, 2022 06:55 PM Reporting Lab: [facility] [address] [place] [address] Performing Lab: [facility] [address] [place] [address] URINALYS SPECIFIC 1.039 1.003 - 06/24 H Specimen Type: URINE [place] IS GRAVITY OF 1.035 /2021 No comment en tered. IS [facility] URINE Ordering Provid er: JAYDE MENDOZA Report Released Date/Time: Jun 24, 2022 06:55 PM Reporting Lab: [facility] [address] [place] [phone] Performing Lab: [facility] [address] [place] [address] URINALYS BILIRUBIN. NEGATIVE 06/24 Specimen Ty pe: URINE [place] TOTAL /2021 No comment enter ed. IS [facility] [[place]] Ordering Pro vider: JAYDE MENDOZA IN URINE Report Release d Date/Time: Jun 24, 2022 06:55 PM BY TEST Reporting Lab: [facility] STRIP [address] [place] [phone] Performing Lab: [facility] [address] [place] [address] URINALYS KETONES NEGATIVE 06/24 Specimen Type: URINE [place] IS [MASS/VOLU /2021 No comment en tered. IS [facility] ME] IN Ordering Provid er: JAYDE MENDOZA URINE BY Report Release d Date/Time: Jun 24, 2022 06:55 PM TEST STRIP Reporting La b: [facility] [address] [place] [address] Performing Lab: [facility] [address] [place] [address] URINALYS GLUCOSE NEGATIVE <30 - 30 06/24 Specimen Type : URINE [place] IS [MASS/VOLU /2021 No comment en tered. IS [facility] ME] IN Ordering Provid er: JAYDE MENDOZA W URINE BY Report Release d Date/Time: Jun 24, 2022 06:55 PM TEST STRIP Reporting La b: [facility] [address] [place] [address] Performing Lab: [facility] [place] [address] URINALYS PROTEIN 50 <20 - 20 06/24 Specimen Type: URINE [place] IS [MASS/VOLU /2021 No comment en zach. IS [facility] ME] IN Ordering Provid er: JAYDE MENDOZA URINE BY Report Release d Date/Time: Jun 24, 2022 06:55 PM TEST STRIP Reporting La b: [facility] [address] [facility] [place] [address] Performing Lab: [facility] [place] [address] URINALYS PH OF 6.5 5.0 - 8.0 06/24 Specimen Type : URINE [place] URINE BY /2021 No comment jessica bills. IS [facility] TEST STRIP Ordering Pro vider: JAYDE MENDOZA Report Released Date/Time: Jun 24, 2022 06:55 PM Reporting Lab: [facility] [address] [facility] [place] [address] Performing Lab: [facility] [address] [facility] [place] [address] URINALYS LEUKOCYTES 17 0 - 7 06/24 H Specimen Typ e: URINE [place] IS [#/AREA] /2021 No comment jessica bills. IS [facility] IN URINE Ordering Provi maria: JAYDE MENDOZA SEDIMENT Report Release d Date/Time: Jun 24, 2022 06:55 PM BY Reporting Lab: [facility] MICROSCOPY [facility] [phone] HIGH POWER Performing L ab: [facility] FIELD [address] [facility] [place] [address] URINALYS BACTERIA NONE 06/24 Specimen Type: URINE [place] IS [[place]] SEEN /2021 No comment nils serrano. IS [facility] IN URINE Ordering Provi maria: JAYDE MENDOZA SEDIMENT Report Release d Date/Time: Jun 24, 2022 06:55 PM BY LIGHT Reporting Lab: [facility] MICROSCOPY [facility] [address] Performing Lab: [facility] [address] [facility] [place] [address] URINALYS CALCIUM FEW 06/24 Specimen Type: URINE [place] IS OXALATE /2021 No comment enter ed. IS [facility] CRYSTALS Ordering Provi maria: JAYDE MENDOZA [[place]] Report Relea sed Date/Time: Jun 24, 2022 06:55 PM IN URINE Reporting Lab: [facility] SEDIMENT [address] [place] [facility] [place] [address] BY LIGHT Performing Lab : [facility] MICROSCOPY [facility] [address] URINALYS ERYTHROCYT >180 0 - 3 06/24 H Specimen Typ e: URINE [place] IS ES /2021 No comment enter ed. IS [facility] [#/AREA] Ordering Provi maria: JAYDE MENDOZA IN URINE Report Release d Date/Time: Jun 24, 2022 06:55 PM SEDIMENT Reporting Lab: [facility] BY [address] [facility] [place] [address] MICROSCOPY Performing L ab: [facility] HIGH [facility]OWER [facility] [address] FIELD URINALYS APPEARANCE TURBID 06/24 Specimen Typ e: URINE [place] IS OF URINE /2021 No comment ente red. IS [facility] Ordering Provid er: JAYDE MENDOZA Report Released Date/Time: Jun 24, 2022 06:55 PM Reporting Lab: [facility] [address] [facility] [place] [address] Performing Lab: [facility] [address] [facility] [place] [address] URINALYS EPITHELIAL NONE 06/24 Specimen Typ e: URINE [place] IS CELLS.SQUA SEEN No comment en tered. IS [facility] MOUS Ordering Provid er: JAYDE MENDOZA [#/AREA] Report Release d Date/Time: Jun 24, 2022 06:55 PM IN URINE Reporting Lab: [facility] SEDIMENT [address] [facility] [place] [address] BY Performing Lab: [facility] MICROSCOPY [facility] [address] HIGH POWER FIELD URINALYS HEMOGLOBIN 3+ 06/24 Specimen Typ e: URINE [place] IS [[place]] /2021 No comment en tered. IS [facility] IN URINE Ordering Provi maria: JAYDE MENDOZA BY TEST Report Released Date/Time: Jun 24, 2022 06:55 PM STRIP Reporting Lab: [facility] [address] [facility] [place] [address] Performing Lab: [facility] [address] [facility] [place] [address] URINALYS NITRITE NEGATIVE 06/24 Specimen Type: URINE [place] IS [[place]] No comment en tered. IS [facility] IN URINE Ordering Prov ider: KELLY,JAYDE W BY TEST Report Released Date/Time: Jun 24, 2022 06:55 PM STRIP Reporting Lab: [facility] [place] [address] Performing Lab: [facility] [address] [place] [address] URINALYS LEUKOCYTE 25 06/24 Specimen Type : URINE [place] IS ESTERASE /2021 No comment ente red. IS [facility] [[place]] Ordering Pro vider: JAYDE MENDOZA IN URINE Report Release d Date/Time: Jun 24, 2022 06:55 PM BY TEST Reporting Lab: [facility] [address] [place] [address] Performing Lab: [facility] [address] [place] [id number] AST/SGOT ASPARTATE 19 <34 - 34 06/24 Specimen Typ e: PLASMA [place] AMINOTRANS /2021 No comment en zach. IS [facility] FERASE Ordering Provid er: JAYDE MENDOZA [ENZYMATIC Report Relea sed Date/Time: Jun 24, 2022 08:09 PM ACTIVITY/V Reporting La b: [facility] OLUME] IN [address] [facility] [place] [id number] SERUM OR Performing Lab : [facility] PLASMA [place] [address] POTASSIU POTASSIUM 4.9 3.5 - 5.1 06/24 Specimen Ty pe: PLASMA [place] M [MOLES/VOL /2021 No comment en terhernando. IS [facility] UME] IN Ordering Provid er: JAYDE MENDOZA SERUM OR Report Release d Date/Time: Jun 24, 2022 08:09 PM PLASMA Reporting Lab: [facility] [place] [address] Performing Lab: [facility] [address] [facility] [place] [address] PROTEIN, PROTEIN 6.8 6.0 - 8.3 06/24 Specimen Type : PLASMA [place] TOTAL [MASS/VOLU /2021 No comment en terhernando. IS [facility] ME] IN Ordering Provid er: JAYDE MENDOZA SERUM OR Report Release d Date/Time: Jun 24, 2022 08:09 PM PLASMA Reporting Lab: [facility] [address] [facility] [place] [address] Performing Lab: [facility] [place] [address] PROTHROM INR IN 1.1 0.8 - 1.1 06/24 Specimen Type : PLASMA [place] BIN PLATELET /2021 No comment ente red. [facility] TIME/INR POOR Ordering Provi maria: JAYDE MENDOZA PLASMA BY Report Releas ed Date/Time: Jun 24, 2022 06:55 PM COAGULATIO Reporting La b: [facility] N [place] [address] Performing Lab: [facility] [place] [address] PROTHROM PROTHROMBI 12.1 9.4 - 12.5 06/24 Specimen Type: PLASMA [place] BIN N TIME /2021 No comment enter ed. [facility] TIME/INR (PT) Ordering Provi maria: JAYDE MENDOZA Report Released Date/Time: Jun 24, 2022 06:55 PM Reporting Lab: [facility] [place] [address] Performing Lab: [facility] [place] [address] COVID-19 SARS-COV-2 Not 06/24 Specimen Typ e: NASOPHARYNGEAL [place] DIAGNOST (COVID-19) Detected /2021 Comment: C epheid GeneXpert (618) [facility] IC PANEL RNA Ordering Provi maria: JAYDE MENDOZA (CEPHEID [PRESENCE] Report Rele ased Date/Time: Jun 24, 2022 06:55 PM ) IN Reporting Lab: [facility] RESPIRATOR [address] [facility] [place] [address] Y SPECIMEN Performing L ab: [facility] BY [place]ST[place]Y [place] [address] WITH PROBE DETECTION CBC & LEUKOCYTES 9.67 4.0 - 11.0 06/24 Specimen T ype: BLOOD [place] DIFF [#/VOLUME] /2021 Comment: Clu mped Platelets. Invitro artefact. No clinical significance. Platelet count may be higher than stated value. Plt count = 214 K-cmm Manual Differential Performed [facility] IN BLOOD Ordering Provi maria: JAYDE MENDOZA BY Report Released Date/Time: Jun 24, 2022 06:55 PM AUTOMATED Reporting Lab : [facility] COUNT [place] [address] Performing Lab: [facility] [place] [address] CBC & ERYTHROCYT 3.36 4.6 - 6.2 08/08 L Specimen Ty pe: BLOOD [place] DIFF ES /2021 Comment: Clumpe d Platelets. Invitro artefact. No clinical significance. Platelet count may be higher than stated value. Plt count = 214 K- cmm Manual Differential Performed [facility] [#/VOLUME] Ordering Pro vider: JAYDE MENDOZA IN BLOOD Report Release d Date/Time: Jun 24, 2022 06:55 PM BY Reporting Lab: [facility] AUTOMATED [facility] [address] COUNT Performing Lab: [facility] [address] [facility] [place] [address] CBC & HEMOGLOBIN 12.0 13.5 - 08/08 L Specimen Type : BLOOD [place] DIFF [MASS/VOLU 17.9 /2021 Comment: Clu mped Platelets. Invitro artefact. No clinical significance. Platelet count may be higher than stated value. Plt count = 214 K-cmm Manual Differential Performed [facility] ME] IN Ordering Provid er: JAYDE MENDOZA BLOOD Report Released Date/Time: Jun 24, 2022 06:55 PM Reporting Lab: [facility] [address] [facility] [place] [address] Performing Lab: [facility] [address] [facility] [place] [address] CBC & HEMATOCRIT 35.9 41 - 54 /08 L Specimen Type : BLOOD [place] DIFF [VOLUME /2021 Comment: Clumpe d Platelets. Invitro artefact. No clinical significance. Platelet count may be higher than stated value. Plt count = 214 K-cmm Manual Differential Performed [facility] FRACTION] Ordering Prov ider: JAYDE MENDOZA OF BLOOD Report Release d Date/Time: Jun 24, 2022 06:55 PM BY Reporting Lab: [facility] AUTOMATED [facility] [address] COUNT Performing Lab: [facility] [address] [facility] [place] [address] CBC & MCV 106.8 80 - 100 / H Specimen Type: BLOOD [place] DIFF [ENTITIC /2021 Comment: Clump ed Platelets. Invitro artefact. No clinical significance. Platelet count may be higher than stated value. Plt count = 214 K-cmm Manual Differential Performed [facility] VOLUME] BY Ordering Pro vider: JAYDE MENDOZA AUTOMATED Report Releas ed Date/Time: Jun 24, 2022 06:55 PM COUNT Reporting Lab: [facility] [address] [place] [address] Performing Lab: [facility] [address] [place] [address] CBC & MCH 35.7 27 - 33 06/24 H Specimen Type: B LOOD [place] DIFF [ENTITIC /2021 Comment: Clump ed Platelets. Invitro artefact. No clinical significance. Platelet count may be higher than stated value. Plt count = 214 K-cmm Manual Differential Performed [facility] MASS] BY Ordering Provi maria: JAYDE MENDOZA AUTOMATED Report Releas ed Date/Time: Jun 24, 2022 06:55 PM COUNT Reporting Lab: [facility] [address] [place] [address] Performing Lab: [facility] [address] [place] [address] CBC & MCHC 33.4 32.0 - 06/24 Specimen Type: B LOOD [place] DIFF [MASS/VOLU 37.5 /2021 Comment: Clu mped Platelets. Invitro artefact. No clinical significance. Platelet count may be higher than stated value. Plt count = 214 K-cmm Manual Differential Performed [facility] ME] BY Ordering Provid er: JAYDE MENDOZA AUTOMATED Report Rele ed Date/Time: Jun 24, 2022 06:55 PM COUNT Reporting Lab: [facility] [place] [address] Performing Lab: [facility] [address] [place] [address] CBC & PLATELETS comment 06/24 Specimen Type: BLOOD [place] DIFF [#/VOLUME] /2021 Comment: Clu mped Platelets. Invitro artefact. No clinical significance. Platelet count may be higher than stated value. Plt count = 214 K-cmm Manual Differential Performed [facility] IN BLOOD Ordering Provi maria: JAYDE MENDOZA BY Report Released Date/Time: Jun 24, 2022 06:55 PM AUTOMATED Reporting Lab : [facility] COUNT [place] [address] Performing Lab: [facility] [address] [place] [address] CBC & PLATELET canc 06/24 Specimen Type: BLOOD [place] DIFF MEAN /2021 Comment: Clumpe d Platelets. Invitro artefact. No clinical significance. Platelet count may be higher than stated value. Plt count = 214 K- cmm Manual Differential Performed [facility] VOLUME Ordering Provid er: JAYDE MENDOZA [ENTITIC Report Release d Date/Time: Jun 24, 2022 06:55 PM VOLUME] IN Reporting La b: [facility] BLOOD BY [address] [place] [address] AUTOMATED Performing La b: [facility] COUNT [address] [place] [address] CBC & NEUTROPHIL 70.7 06/24 Specimen Type : BLOOD [place] DIFF S/ Comment: Clumpe d Platelets. Invitro artefact. No clinical significance. Platelet count may be higher than stated value. Plt count = 214 K- cmm Manual Differential Performed [facility] LEUKOCYTES Ordering Pro vider: JAYDE MENDOZA IN BLOOD Report Release d Date/Time: Jun 24, 2022 06:55 PM BY MANUAL Reporting Lab : [facility] COUNT [address] [place] [address] Performing Lab: [facility] [address] [place] [address] CBC & LYMPHOCYTE 16.7 06/24 Specimen Type : BLOOD [place] DIFF S/ Comment: Clumpe d Platelets. Invitro artefact. No clinical significance. Platelet count may be higher than stated value. Plt count = 214 K- cmm Manual Differential Performed [facility] LEUKOCYTES Ordering Pro vider: JAYDE MENDOZA IN BLOOD Report Release d Date/Time: Jun 24, 2022 06:55 PM BY MANUAL Reporting Lab : [facility] COUNT [address] [place] [address] Performing Lab: [facility] [address] [place] [address] CBC & ERYTHROCYT 14.0 11.5 - 06/24 Specimen Type : BLOOD [place] DIFF E 14.5 Comment: Clumpe d Platelets. Invitro artefact. No clinical significance. Platelet count may be higher than stated value. Plt count = 214 K- cmm Manual Differential Performed [facility] DISTRIBUTI Ordering Pro vider: JAYDE MENDOZA ON WIDTH Report Release d Date/Time: Jun 24, 2022 06:55 PM [RATIO] BY Reporting La b: [facility] [place] [address] COUNT Performing Lab: [facility] [place] [address] CBC & MONOCYTES/ 9.6 06/24 Specimen Type : BLOOD [place] DIFF Comment: Clumpe d Platelets. Invitro artefact. No clinical significance. Platelet count may be higher than stated value. Plt count = 214 K- cmm Manual Differential Performed [facility] LEUKOCYTES Ordering Pro vider: JAYDE MENDOZA W IN BLOOD Report Release d Date/Time: Jun 24, 2022 06:55 PM BY Reporting Lab: [facility] AUTOMATED [facility] [address] COUNT Performing Lab: [facility] [address] [facility] [place] [address] CBC & EOSINOPHIL 1.5 06/24 Specimen Type : BLOOD [place] DIFF S/ Comment: Clumpe d Platelets. Invitro artefact. No clinical significance. Platelet count may be higher than stated value. Plt count = 214 K- cmm Manual Differential Performed [facility] LEUKOCYTES Ordering Pro vider: JAYDE MENDOZA W IN BLOOD Report Release d Date/Time: Jun 24, 2022 06:55 PM BY Reporting Lab: [facility] AUTOMATED [facility] [address] COUNT Performing Lab: [facility] [address] [facility] [place] [address] CBC & METAMYELOC 1.0 06/24 Specimen Type : BLOOD [place] DIFF YTES/ Comment: Clump ed Platelets. Invitro artefact. No clinical significance. Platelet count may be higher than stated value. Plt count = 214 K-cmm Manual Differential Performed [facility] LEUKOCYTES Ordering Pro vider: JAYDE MENDOZA W IN BLOOD Report Release d Date/Time: Jun 24, 2022 06:55 PM BY MANUAL Reporting Lab : [facility] COUNT [address] [facility] [place] [address] Performing Lab: [facility] [address] [facility] [place] [address] CBC & MYELOCYTES 0.5 06/24 Specimen Type : BLOOD [place] DIFF / Comment: Clumpe d Platelets. Invitro artefact. No clinical significance. Platelet count may be higher than stated value. Plt count = 214 K- cmm Manual Differential Performed [facility] LEUKOCYTES Ordering Pro vider: JAYDE MENDOZA W IN BLOOD Report Release d Date/Time: Jun 24, 2022 06:55 PM BY MANUAL Reporting Lab : [facility] COUNT [place] [address] Performing Lab: [facility] [address] [place] [address] CBC & NORMOCHROM YES 06/24 Specimen Type : BLOOD [place] DIFF IC /2021 Comment: Clumpe d Platelets. Invitro artefact. No clinical significance. Platelet count may be higher than stated value. Plt count = 214 K- cmm Manual Differential Performed [facility] [[place]] Ordering Pro vider: JAYDE MENDOZA W IN BLOOD Report Release d Date/Time: Jun 24, 2022 06:55 PM BY LIGHT Reporting Lab: [facility] MICROSCOPY [facility] [address] Performing Lab: [facility] [address] [facility] [place] [address] CBC & MACROCYTES SLIGHT 06/24 Specimen Type : BLOOD [place] DIFF [PRESENCE] /2021 Comment: Clu mped Platelets. Invitro artefact. No clinical significance. Platelet count may be higher than stated value. Plt count = 214 K-cmm Manual Differential Performed [facility] IN BLOOD Ordering Provi maria: JAYDE MENDOZA BY LIGHT Report Release d Date/Time: Jun 24, 2022 06:55 PM MICROSCOPY Reporting La b: [facility] [address] [facility] [place] [address] Performing Lab: [facility] [place] [address] CBC & LYMPHOCYTE 1.61 1.0 - 4.0 06/24 Specimen Ty pe: BLOOD [place] DIFF S /2021 Comment: Clumpe d Platelets. Invitro artefact. No clinical significance. Platelet count may be higher than stated value. Plt count = 214 K- cmm Manual Differential Performed [facility] [#/VOLUME] Ordering Pro vider: JAYDE MENDOZA W IN BLOOD Report Release d Date/Time: Jun 24, 2022 06:55 PM BY Reporting Lab: [facility] AUTOMATED [facility] [address] [facility] [place] [address] COUNT Performing Lab: [facility] [address] [facility] [place] [address] CBC & MONOCYTES 0.93 0.1 - 1.0 06/24 Specimen Typ e: BLOOD [place] DIFF [#/VOLUME] /2021 Comment: Clu mped Platelets. Invitro artefact. No clinical significance. Platelet count may be higher than stated value. Plt count = 214 K-cmm Manual Differential Performed [facility] IN BLOOD Ordering Provi maria: JAYDE MENDOZA BY Report Released Date/Time: Jun 24, 2022 06:55 PM AUTOMATED Reporting Lab : [facility] COUNT [place] [address] Performing Lab: [facility] [address] [place] [address] CBC & NEUTROPHIL 6.84 2.0 - 7.7 06/24 Specimen Ty pe: BLOOD [place] DIFF S /2021 Comment: Clumpe d Platelets. Invitro artefact. No clinical significance. Platelet count may be higher than stated value. Plt count = 214 K- cmm Manual Differential Performed [facility] [#/VOLUME] Ordering Pro vider: JAYDE MENDOZA IN BLOOD Report Release d Date/Time: Jun 24, 2022 06:55 PM BY Reporting Lab: [facility] AUTOMATED [facility] [place] [facility] [place] [address] COUNT Performing Lab: [facility] [place] [address] CBC & EOSINOPHIL 0.15 0 - 0.5 06/24 Specimen Type : BLOOD [place] DIFF S /2021 Comment: Clumpe d Platelets. Invitro artefact. No clinical significance. Platelet count may be higher than stated value. Plt count = 214 K- cmm Manual Differential Performed [facility] [#/VOLUME] Ordering Pro vider: JAYDE MENDOZA IN BLOOD Report Release d Date/Time: Jun 24, 2022 06:55 PM BY Reporting Lab: [facility] AUTOMATED ONE [facility] [address] [facility] [place] [address] COUNT Performing Lab: [facility] [place] [address] CBC & METAMYELOC 0.10 06/24 Specimen Type : BLOOD [place] DIFF YTES /2021 Comment: Clumpe d Platelets. Invitro artefact. No clinical significance. Platelet count may be higher than stated value. Plt count = 214 K- cmm Manual Differential Performed [facility] [#/VOLUME] Ordering Pro vider: JAYDE MENDOZA IN BLOOD Report Release d Date/Time: Jun 24, 2022 06:55 PM BY MANUAL Reporting Lab : [facility] [place] [address] Performing Lab: [facility] [place] [address] CBC & MYELOCYTES 0.05 08/08 Specimen Type : BLOOD [place] DIFF [#/VOLUME] /2021 Comment: Clu mped Platelets. Invitro artefact. No clinical significance. Platelet count may be higher than stated value. Plt count = 214 K-cmm Manual Differential Performed [facility] IN BLOOD Ordering Provi maria: JAYDE MENDOZA BY MANUAL Report Rele ed Date/Time: Jun 24, 2022 06:55 PM COUNT Reporting Lab: [facility] [place] [address] Performing Lab: [facility] [address] [place] [address] CBC & PLATELETS canc 06/24 Specimen Type: BLOOD [place] DIFF RETICULATE /2021 Comment: Clu mped Platelets. Invitro artefact. No clinical significance. Platelet count may be higher than stated value. Plt count = 214 K-cmm Manual Differential Performed [facility] D/100 Ordering Provid er: JAYDE MENDOZA PLATELETS Report Rele ed Date/Time: Jun 24, 2022 06:55 PM IN BLOOD Reporting Lab: [facility] BY [place] [address] AUTOMATED Performing La b: [facility] COUNT [place] [address] CBC & ERYTHROCYT PRESENT 06/24 Specimen Type : BLOOD [place] DIFF E /2021 Comment: Clumpe d Platelets. Invitro artefact. No clinical significance. Platelet count may be higher than stated value. Plt count = 214 K- cmm Manual Differential Performed [facility] MORPHOLOGY Ordering Pro vider: JAYDE MENDOZA FINDING Report Released Date/Time: Jun 24, 2022 06:55 PM [IDENTIFIE Reporting La b: [facility] R] [place] [address] BLOOD Performing Lab: [facility] [place] [address] COMPREHE CREATININE 1.3 0.7 - 1.2 06/24 H Specimen T ype: PLASMA [place] NSIVE [MASS/VOLU /2021 Comment: Can cellation reported to: Rajni Giraldo RN on 06/24/22@2004 by [place]. Test result cancelled due to hemolysis interference in sample. [facility] METABOLI ME] IN Ordering Provi maria: JAYDE MENDOZA C SERUM OR Report Release d Date/Time: Jun 24, 2022 06:55 PM PANEL+MG PLASMA Reporting Lab: [facility] [place] [address] Performing Lab: [facility] [place] [address] COMPREHE UREA 19 8 - 26 06/24 Specimen Type: PLASMA [place] NSIVE NITROGEN /2021 Comment: Cance llation reported to: Rajni Giraldo RN on 06/24/22@2003 by el. Test result cancelled due to hemolysis interference in sample. [facility] METABOLI [MASS/VOLU Ordering Pr ovider: JAYDE MENDOZA W C ME] IN Report Released Date/Time: Jun 24, 2022 06:55 PM PANEL+MG SERUM OR Reporting Lab : [facility] PLASMA [place] [address] Performing Lab: [facility] [place] [address] COMPREHE GLUCOSE 111 74 - 100 08/ H Specimen Type: PLASMA [place] NSIVE [MASS/VOLU /2021 Comment: Can cellation reported to: Rajni Giraldo RN on 06/24/22@2003 by el. Test result cancelled due to hemolysis interference in sample. [facility] [place] [facility] METABOLI ME] IN Ordering Provi maria: JANNETTE MENDOZAED W C SERUM OR Report Release d Date/Time: Jun 24, 2022 06:55 PM PANEL+MG PLASMA Reporting Lab: [facility] [place] [address] Performing Lab: [facility] [place] [address] COMPREHE SODIUM 133 136 - 145 06/24 L Specimen Type : PLASMA [place] NSIVE [MOLES/VOL /2021 Comment: Can cellation reported to: Rajni Giraldo RN on 06/24/22@2003 by el. Test result cancelled due to hemolysis interference in sample. [facility] METABOLI UME] IN Ordering Provi maria: KELLY,JAYDE W C SERUM OR Report Release d Date/Time: Jun 24, 2022 06:55 PM PANEL+MG PLASMA Reporting Lab: [facility] [place] [address] Performing Lab: [facility] [place] [address] COMPREHE POTASSIUM canc 3.5 - 5.1 06/24 Specimen Ty pe: PLASMA [place] NSIVE [MOLES/VOL Comment: Can cellation reported to: Rajni Giraldo RN on 06/24/22@2003 by el. Test result cancelled due to hemolysis interference in sample. [facility] METABOLI UME] IN Ordering Provi maria: KELLYJAYDE ROBERTSON W C SERUM OR Report Release d Date/Time: Jun 24, 2022 06:55 PM PANEL+MG PLASMA Reporting Lab: [facility] [address] [facility] [place] [address] Performing Lab: [facility] [address] [facility] [place] [address] COMPREHE CHLORIDE 103 98 - 107 06/24 Specimen Type : PLASMA [place] NSIVE [MOLES/VOL Comment: Can cellation reported to: Rajni Giraldo RN on 06/24/22 by el. Test result cancelled due to hemolysis interference in sample. [facility] METABOLI UME] IN Ordering Provi maria: JAYDE MENDOZA W C SERUM OR Report Release d Date/Time: Jun 24, 2022 06:55 PM PANEL+MG PLASMA Reporting Lab: [facility] [address] [facility] [place] [address] Performing Lab: [facility] [address] [facility] [place] [address] COMPREHE CARBON 22 22 - 29 06/24 Specimen Type: PLASMA [place] NSIVE Comment: Cance llation reported to: Rajni Giraldo RN on 06/24/22 by el. Test result cancelled due to hemolysis interference in sample. [facility] METABOLI TOTAL Ordering Provi maria: JAYDE MENDOZA C [MOLES/VOL Report Relea sed Date/Time: Jun 24, 2022 06:55 PM PANEL+MG UME] IN Reporting Lab: [facility] SERUM OR [address]ya JONES [facility] [address] PLASMA Performing Lab: [facility] [address] [facility] [place] [address] COMPREHE CALCIUM 9.4 8.4 - 10.2 06/24 Specimen Typ e: PLASMA [place] NSIVE [MASS/VOLU Comment: Can cellation reported to: Rajni Giraldo RN on 06/24/22 by el. Test result cancelled due to hemolysis interference in sample. [facility] METABOLI ME] IN Ordering Provi maria: JAYDE MENDOZA SERUM OR Report Release d Date/Time: Jun 24, 2022 06:55 PM PANEL+MG PLASMA Reporting Lab: [facility] [place] [address] Performing Lab: [facility] [address] [place] [address] COMPREHE PROTEIN canc 6.0 - 8.3 06/24 Specimen Type : PLASMA [place] NSIVE [MASS/VOLU /2021 Comment: Can cellation reported to: Rajni Giraldo RN on 06/24/22@2003 by el. Test result cancelled due to hemolysis interference in sample. [facility] METABOLI ME] IN Ordering Provi maria: JAYDE MENDOZA SERUM OR Report Release d Date/Time: Jun 24, 2022 06:55 PM PANEL+MG PLASMA Reporting Lab: [facility] [place] [address] Performing Lab: [facility] [place] [address] COMPREHE ALBUMIN 3.9 3.5 - 5.2 06/24 Specimen Type : PLASMA [place] NSIVE [MASS/VOLU /2021 Comment: Can cellation reported to: Rajni Giraldo RN on 06/24/22@2003 by el. Test result cancelled due to hemolysis interference in sample. [facility] METABOLI ME] IN Ordering Provi maria: JAYDE MENDOZA SERUM OR Report Release d Date/Time: Jun 24, 2022 06:55 PM PANEL+MG PLASMA Reporting Lab: [facility] [place] [address] Performing Lab: [facility] [place] [address] COMPREHE BILIRUBIN. 0.2 0.2 - 1.2 06/24 Specimen T ype: PLASMA [place] NSIVE TOTAL /2021 Comment: Cancel lation reported to: Rajni Giraldo RN on 06/24/22@2003 by el. Test result cancelled due to hemolysis interference in sample. [facility] METABOLI [MASS/VOLU Ordering Pr ovider: JAYDE MENDOZA ME] IN Report Released Date/Time: Jun 24, 2022 06:55 PM PANEL+MG SERUM OR Reporting Lab : [facility] PLASMA [place] [address] Performing Lab: [facility] [place] [address] COMPREHE MAGNESIUM 2.3 1.6 - 2.6 06/24 Specimen Ty pe: PLASMA [place] NSIVE [MASS/VOLU /2021 Comment: Can cellation reported to: Rajni Giraldo RN on 06/24/22@2003 by el. Test result cancelled due to hemolysis interference in sample. [facility] METABOLI ME] IN Ordering Provi maria: JAYDE MENDOZA SERUM OR Report Release d Date/Time: Jun 24, 2022 06:55 PM PANEL+MG PLASMA Reporting Lab: [facility] [address] [facility] [place] [address] Performing Lab: [facility] [address] [facility] [place] [address] COMPREHE ANION GAP 8 5 - 15 06/24 Specimen Type : PLASMA [place] NSIVE IN SERUM /2021 Comment: Cance llation reported to: Rajni Giraldo RN on 06/24/22@2003 by el. Test result cancelled due to hemolysis interference in sample. [facility] METABOLI OR PLASMA Ordering Pro vider: JAYDE MENDOZA Report Released Date/Time: Jun 24, 2022 06:55 PM PANEL+MG Reporting Lab: [facility] [place] [address] Performing Lab: [facility] [address] [facility] [place] [address] COMPREHE ALKALINE 56 40 - 150 06/24 Specimen Type : PLASMA [place] NSIVE PHOSPHATAS /2021 Comment: Can cellation reported to: Rajni Giraldo RN on 06/24/22@2003 by el. Test result cancelled due to hemolysis interference in sample. IS [facility] METABOLI E Ordering Provi maria: JAYDE MENDOZA [ENZYMATIC Report Relea sed Date/Time: Jun 24, 2022 06:55 PM PANEL+MG ACTIVITY/V Reporting L ab: [facility] OLU[facility]] IN [address] [facility] [place] [id number] SERUM OR Performing La b: [facility] PLASMA [address] [place] [facility] [place] [address] COMPREHE ALANINE 20 <55 - 55 06/24 Specimen Type: PLASMA [place] NSIVE AMINOTRANS /2021 Comment: Can cellation reported to: Rajni Giraldo RN on 06/24/22@2003 by el. Test result cancelled due to hemolysis interference in sample. IS [facility] METABOLI FERASE Ordering Provi maria: JAYDE MENDOZA [ENZYMATIC Report Relea sed Date/Time: Jun 24, 2022 06:55 PM PANEL+MG ACTIVITY/V Reporting L ab: [facility] HCS OLUME] IN [facility] [address] SERUM OR Performing Lab : [facility] PLASMA [address] [address] COMPREHE ASPARTATE canc <34 - 34 06/24 Specimen Typ e: PLASMA [place] NSIVE AMINOTRANS /2021 Comment: Can cellation reported to: Rajni Giraldo RN on 06/24/22@2003 by el. Test result cancelled due to hemolysis interference in sample. [place] [facility]I FERASE Ordering Provi maria: JAYDE MENDOZA [ENZYMATIC Report Relea sed Date/Time: Jun 24, 2022 06:55 PM PANEL+MG ACTIVITY/V Reporting L ab: [facility] HCS OLUME] IN [facility] [address] SERUM OR Performing Lab : [facility] PLASMA [address] [facility] [address] COMPREHE GLOMERULAR 58 60 06/24 L Specimen Typ e: PLASMA [place] NSIVE FILTRATION /2021 Comment: Can cellation reported to: Rajni Giraldo RN on 06/24/22@2003 by el. Test result cancelled due to hemolysis interference in sample. [place] [facility] [place] RATE/1.73 Ordering Pro vider: JAYDE MENDOZA SQ Report Released Date/Time: Jun 24, 2022 06:55 PM PANEL+MG M.PREDICTE Reporting L ab: [facility] HCS D [VOLUME [facility] [address] RATE/AREA] Performing L ab: [facility] HCS IN SERUM, [facility] [address] PLASMA OR BLOOD BY CREATININE -BASED FORMULA (CKD-EPI) COMPREHE CREATININE 1.2 0.7 - 1.2 05/15 Specimen T ype: PLASMA [place] NSIVE [MASS/VOLU /2021 No comment en tered. [place] [facility] [place] ME] IN Ordering Provi maria: ROSY FAITH SERUM OR Report Release d Date/Time: April 11, 2022 12:04 PM PANEL+MG PLASMA Reporting Lab: [facility] [address] [facility] [address] Performing Lab: [facility] [address] [facility] [address] COMPREHE UREA 25 8 - 26 05/15 Specimen Type: PLASMA [place] NSIVE No comment ente red. IS [facility] METABOLI [MASS/VOLU Ordering Pr ovider: ROSY FIATH] IN Report Released Date/Time: April 11, 2022 12:04 PM PANEL+MG SERUM OR Reporting Lab : [facility] PLASMA [address] [facility] [address] Performing Lab: [facility] [address] [facility] [address] COMPREHE GLUCOSE 105 74 - 100 05/15 H Specimen Type: PLASMA [place] NSIVE [MASS/VOLU /2021 No comment en tered. IS [facility] METABOLI ME] IN Ordering Provi maria: ROSY FAITH SERUM OR Report Release d Date/Time: April 11, 2022 12:04 PM PANEL+MG PLASMA Reporting Lab: [facility] [address] [facility] [address] Performing Lab: [facility] [address] [facility] [address] COMPREHE SODIUM 139 136 - 145 05/15 Specimen Type : PLASMA [place] NSIVE [MOLES/VOL No comment en tered. IS [facility] METABOLI UME] IN Ordering Provi maria: ROSY FAITH SERUM OR Report Release d Date/Time: April 11, 2022 12:04 PM PANEL+MG PLASMA Reporting Lab: [facility] [address] [facility] [address] Performing Lab: [facility] [address] [facility] [address] COMPREHE POTASSIUM 4.7 3.5 - 5.1 05/15 Specimen Ty pe: PLASMA [place] NSIVE [MOLES/VOL /2021 No comment en tered. IS [facility] METABOLI UME] IN Ordering Provi maria: ROSY FAITH SERUM OR Report Release d Date/Time: April 11, 2022 12:04 PM PANEL+MG PLASMA Reporting Lab: [facility] [address] [facility] [address] Performing Lab: [facility] [address] [facility] [address] COMPREHE CHLORIDE 104 98 - 107 05/15 Specimen Type : PLASMA [place] NSIVE [MOLES/VOL /2021 No comment en tered. IS [facility] METABOLI UME] IN Ordering Provi maria: ROSY FAITH SERUM OR Report Release d Date/Time: April 11, 2022 12:04 PM PANEL+MG PLASMA Reporting Lab: [facility] [address] [facility] [address] Performing Lab: [facility] [address] [facility] [address] COMPREHE CARBON 26 - 05/15 Specimen Type: PLASMA [place] NSIVE No comment ente red. [place] [facility] TOTAL Ordering Provi maria: ROSY FAITH [MOLES/VOL Report Relea sed Date/Time: April 11, 2022 12:04 PM PANEL+MG UME] IN Reporting Lab: [facility] SERUM OR [facility] [address] PLASMA Performing Lab: [facility] [address] [facility] [place] [address] COMPREHE CALCIUM 9.5 8.4 - 10.2 05/15 Specimen Typ e: PLASMA [place] NSIVE [MASS/VOLU /2021 No comment en tered. IS [facility] METABOLI ME] IN Ordering Provi maria: ROSY FAITH SERUM OR Report Release d Date/Time: April 11, 2022 12:04 PM PANEL+MG PLASMA Reporting Lab: [facility] [address] [facility] [address] Performing Lab: [facility] [address] [facility] [facility] [address] COMPREHE PROTEIN 7.2 6.0 - 8.3 05/15 Specimen Type : PLASMA [place] NSIVE [MASS/VOLU No comment en tered. IS [facility] METABOLI ME] IN Ordering Provi maria: ROSY FAITH SERUM OR Report Release d Date/Time: April 11, 2022 12:04 PM PANEL+MG PLASMA Reporting Lab: [facility] [address] [facility] [address] Performing Lab: [facility] [address] [facility] [place] [address] COMPREHE ALBUMIN 4.2 3.5 - 5.2 05/15 Specimen Type : PLASMA [place] NSIVE [MASS/VOLU /2021 No comment en tered. [place] [facility] [place] ME] IN Ordering Provi maria: ROSY FAITH SERUM OR Report Release d Date/Time: April 11, 2022 12:04 PM PANEL+MG PLASMA Reporting Lab: [facility] [address] [facility] [address] Performing Lab: [facility] [address] [facility] [address] COMPREHE BILIRUBIN. 0.5 0.2 - 1.2 05/15 Specimen T ype: PLASMA [place] NSIVE TOTAL /2021 No comment enter ed. IS [facility] METABOLI [MASS/VOLU Ordering Pr ovider: ROSY FAITH ME] IN Report Released Date/Time: April 11, 2022 12:04 PM PANEL+MG SERUM OR Reporting Lab : [facility] PLASMA [address] [facility] [address] Performing Lab: [facility] [address] [facility] [address] COMPREHE MAGNESIUM 1.8 1.6 - 2.6 05/15 Specimen Ty pe: PLASMA [place] NSIVE [MASS/VOLU /2021 No comment en tered. IS [facility] METABOLI ME] IN Ordering Provi maria: ROSY FAITH SERUM OR Report Release d Date/Time: April 11, 2022 12:04 PM PANEL+MG PLASMA Reporting Lab: [facility] [address] [facility] [address] Performing Lab: [facility] [address] [facility] [place] [address] COMPREHE ANION GAP 9 5 - 15 05/15 Specimen Type : PLASMA [place] NSIVE IN SERUM /2021 No comment ente red. IS [facility] METABOLI OR PLASMA Ordering Pro vider: ROSY FAITH Report Released Date/Time: April 11, 2022 12:04 PM PANEL+MG Reporting Lab: [facility] [address] [facility] [address] Performing Lab: [facility] [address] [facility] [address] COMPREHE ALKALINE 55 40 - 150 05/15 Specimen Type : PLASMA [place] NSIVE PHOSPHATAS /2021 No comment en tered. IS [facility] METABOLI E Ordering Provi maria: ROSY FAITH [ENZYMATIC Report Relea sed Date/Time: April 11, 2022 12:04 PM PANEL+MG ACTIVITY/V Reporting L ab: [facility] OLUME] IN [facility] [address] SERUM OR Performing Lab : [facility] PLASMA [address] [facility] [address] COMPREHE ALANINE 19 <55 - 55 05/15 Specimen Type: PLASMA [place] NSIVE AMINOTRANS No comment en tered. IS [facility] METABOLI FERASE Ordering Provi maria: ROSY FAITH [ENZYMATIC Report Relea sed Date/Time: April 11, 2022 12:04 PM PANEL+MG ACTIVITY/V Reporting L ab: [facility] HCS OLUME] IN [facility] [address] SERUM OR Performing Lab : [facility] PLASMA [address] [facility] [address] COMPREHE ASPARTATE 28 <34 - 34 05/15 Specimen Typ e: PLASMA [place] NSIVE AMINOTRANS No comment en tered. [place] [facility] FERASE Ordering Provi maria: ROSY FAITH [ENZYMATIC Report Relea sed Date/Time: April 11, 2022 12:04 PM PANEL+MG ACTIVITY/V Reporting L ab: [facility] OLUME] IN [facility] [address] SERUM OR Performing Lab : [facility] PLASMA [address] [facility] [address] COMPREHE CREAT 63 60 05/15 Specimen Type: PLASMA [place] NSIVE EGFR(CKD-E No comment en tered. IS [facility] METABOLI PI) Ordering Provi maria: ROSY FAITH Report Released Date/Time: April 11, 2022 12:04 PM PANEL+MG Reporting Lab: [facility] [address] [facility] [address] Performing Lab: [facility] [address] [facility] [address] TSH THYROTROPI 3.03 0.35 - 05/15 Specimen Type : PLASMA [place] W/REFLEX N 4.94 No comment ente red. IS [facility] TO FREE [UNITS/VOL Ordering Pro vider: ROSY FAITH T4 UME] IN Report Released Date/Time: April 11, 2022 12:04 PM SERUM OR Reporting Lab: [facility] PLASMA [address] [facility] [address] Performing Lab: [facility] [address] [facility] [address] Vital Signs Combined list of inpatient and outpatient Vital Signs from Department of Defense and Veterans Affairs, ranging from 12 months to all on record, depending upon the facility. Vital Sign Value Date Comments Source SYSTOLIC BLOOD PRESSURE 132 06/25/2022 01:05:00 [place] [facility] DIASTOLIC BLOOD PRESSURE 85 06/25/2022 01:05:00 [facility] PULSE OXIMETRY 94% 06/25/2022 01:05:00 [place] [facility] TEMPERATURE 98.2 06/25/2022 01:05:00 [place] [facility] PULSE 59 06/25/2022 01:05:00 [place] [facility] SYSTOLIC BLOOD PRESSURE 99 06/24/2022 18:00:00 [place] [facility] DIASTOLIC BLOOD PRESSURE 64 06/24/2022 18:00:00 [place] [facility] PAIN 8 06/24/2022 18:00:00 [place] [facility] TEMPERATURE 97.5 06/24/2022 18:00:00 [place] [facility] PULSE 69 06/24/2022 18:00:00 [place] [facility] RESPIRATION 15 06/24/2022 18:00:00 [place] [facility] SYSTOLIC BLOOD PRESSURE 120 05/15/2022 12:50:41 [place] [facility] DIASTOLIC BLOOD PRESSURE 77 05/15/2022 12:50:41 [place] [facility] PULSE OXIMETRY 94% 05/15/2022 12:50:41 [place] [facility] WEIGHT 123.9 05/15/2022 12:50:41 [place] [facility] BMI 23kg/m2 05/15/2022 12:50:41 [place] [facility] PAIN 0 05/15/2022 12:50:41 [place] [facility] HEIGHT 61.811 05/15/2022 12:50:41 [place] [facility] TEMPERATURE 99 05/15/2022 12:50:41 [place] [facility] PULSE 63 05/15/2022 12:50:41 [place] [facility] RESPIRATION 16 05/15/2022 12:50:41 [place] [facility] SYSTOLIC BLOOD PRESSURE 131 04/12/2022 08:13:02 [place] [facility] DIASTOLIC BLOOD PRESSURE 82 04/12/2022 08:13:02 [place] [facility] PULSE OXIMETRY 93% 04/12/2022 08:13:02 [place] [facility] WEIGHT 122.1 04/12/2022 08:13:02 [place] [facility] BMI 22kg/m2 04/12/2022 08:13:02 [place] [facility] PAIN 0 04/12/2022 08:13:02 [place] [facility] TEMPERATURE 98.5 04/12/2022 08:13:02 [place] [facility] PULSE 100 04/12/2022 08:13:02 [place] [facility] RESPIRATION 18 04/12/2022 08:13:02 [place] [facility] SYSTOLIC BLOOD PRESSURE 135 04/10/2022 10:58:06 [place] [facility] DIASTOLIC BLOOD PRESSURE 84 04/10/2022 10:58:06 [facility] PULSE OXIMETRY 96% 04/10/2022 10:58:06 [place] [facility] WEIGHT 120.9 04/10/2022 10:58:06 [place] [facility] BMI 22kg/m2 04/10/2022 10:58:06 [place] [facility] TEMPERATURE 98.7 04/10/2022 10:58:06 [place] [facility] PULSE 76 04/10/2022 10:58:06 [place] [facility] RESPIRATION 20 04/10/2022 10:58:06 [place] [facility] Encounters Combined list of: 1) Encounters from Department of Veterans Affairs facilities going back up to the last 18 months, not all VA inpatient encounters are included; 2) Encounters from the Department of Defense facilities going back up to 280 months. Location Location Encounter Encounter Reason Attending ADM DC Stat us Disposition Source Details Type Number For Provider Date Date Visit ADM 89171-8.61 Diagnos JODI ZAIDI 01/12 [place] SAR[place]OV[place] [id number] is: NE [facility] A 30MCG/0.3M 11 ICD-10- CBOC L 1ST CM Z23 Encount er for immuniz ation<b r/>with Provide r Comment s: Encount er for Immuniz ation OFFICE O/P 49577-3.61 Diagnos OR[place]ONANCY 01/12 [place] EST MOD [id number] is: [facility] [facility] 30-39 MIN ICD-10- HCS CM M05.9 Rheumat oid arthrit is with rheumat oid factor, unspeci fied
with Provide r Comment s: Seropos itive Rheumat oid arthrit is ADM 26970-8 Diagnos JHONNY 01/31 [place] [facility] [id number] is: ,LAUREN [facility] 30MCG/0.3M ICD-10- M HCS L 2ND CM Z23 Encount er for immuniz ation<b r/>with Provide r Comment s: Encount er for Immuniz ation Outpatient 52697-903/19 [place] [id number] [place], 03/20 [place] EST MOD [id number] is: RRY [facility] 30-39 MIN ICD-10- HCS CM L40.50 Arthrop athic psorias is, unspeci fied
with Provide r Comment s: Psoriat ic arthrit is OFFICE O/P Diagnos [facility], 06/01 [place] EST MOD [id number] is: RRY A [facility] 30-39 MIN ICD-10- HCS CM M06.9 Rheumat oid arthrit is, unspeci fied
with Provide r Comment s: Seropos itive rheumat oid arthrit is (SCT [id number] 05) Outpatient 66514-6.06/01 [place] En[facility] [id number] [facility]P Diagnos MARYELLEN LEON 06/01 [place] EST LOW [id number] is: H [facility] 20-29 MIN ICD-10- HCS CM I25.10 Athscl heart disease of [place] coronar y artery w/o ang pctrs<b r/>with Provide r Comment s: CAD - Coronar y artery disease (SCT [id number]) Outpatient 12288-6 Yasmeen CHASE 06/13 [place] Encounter [id number] [facility] Diagnos [place], 06/19 [place] EST MOD [id number] is: RRY [facility] 30-39 MIN ICD-10- HCS CM M06.9 Rheumat oid arthrit is, unspeci fied
with Provide r Comment s: Seropos itive rheumat oid arthrit is ([facility] [id number] 05) Outpatient 46539-0.61 06/19 [place] En[place] [id number] /2021 [facility] OFFICE O/P 58815-5.61 Diagnos SCHEBARBIER,R 07/11 [place] EST MOD [id number] is: HAVEN [facility] 30-39 MIN ICD-10- HCS CM H25.13 Age-rel ated nuclear catarac t, bilater al
with Provide r Comment s: Age-rel ated nuclear catarac t, bilater al Outpatient 14691-0.61 07/31 [place] Encounter [id number] [facility]P 16486-5 Diagnos [place],JE 09/28 [place] EST MOD [id number] is: RRY [facility] 30-39 MIN ICD-10- HCS CM M06.9 Rheumat oid arthrit is, unspeci fied
with Provide r Comment s: Seropos itive rheumat oid arthrit is ([facility] [id number] ) ADM 47589-2.61 Diagnos HUDLOW,TRISTON 09/28 [place] [facility] [id number] is: ECCA [facility] 30MCG/0.3M ICD-10- HCS L BST CM Z23 Encount er for immuniz ation<b r/>with Provide r Comment s: Encount er for Immuniz ation Outpatient 63618-2.61 11/17 [place] Encounter [id number] /2022 [facility] Outpatient 07233-0.61 11/20 [place] En[place] [id number] [facility] Outpatient 76198-4.61 11/20 [place] Encounter [id number] [facility] Outpatient 27291-6.61 Yasmeen CHASE 11/20 [place] Encounter [id number] ERR [facility] Outpatient 52413-8.61 12/06 [place] Encounter [id number] /2021 [facility] EMERGENCY 28832-2.61 Diagnos 01/07 [place] DEPT VISIT [id number] is: /2021 [facility] ICD-10- HCS CM K02.9 Dental caries, unspeci fied
with Provide r Comment s: Dental Caries, unspeci fied OFFICE O/P 40371-9.61 Diagnos [place], 01/11 [place] EST MOD [id number] is: RRY A [facility] 30-39 MIN ICD-10- HCS CM M06.9 Rheumat oid arthrit is, unspeci fied
with Provide r Comment s: Seropos itive rheumat oid arthrit is ([facility] [id number] 05) Outpatient 31099-3.61 04/ [place] Encounter [id number] /2021 [facility] Outpatient 00546-2.61 CHRISTLE,T 02/17 [place] Encounter [id number] ERRY [facility] Outpatient 36628-7.61 CHRISTLE,T 02/18 [place] Encounter [id number] ERR [facility] Outpatient 23942-7.61 02/21 [place] Encounter [id number] /2021 [facility] Outpatient 56568-2.61 02/26 [place] Encounter [id number] /2021 [facility] OFFICE O/P 99526-7.61 Diagnos LEON03/05 [place] EST LOW [id number] is: [facility] 20-29 MIN ICD-10- HCS CM I47.1 Suprave ntricul ar tachyca rdia
with Provide r Comment s: Multifo sergio atrial tachyca rdia (SNOMED CT [id number] 0) ECG 85869-8.61 Diagnos LEON,MARYELLEN 03/12 [place] MONIT/REPR [id number] is: [facility] T UP TO 48 ICD-10- HCS HRS CM Z13.6 Encount er for screeni ng for cardiov ascular disorde rs
with Provide r Comment s: Encount er for Screeni ng for Cardiov ascular Disorde rs Outpatient 77721-1 05/ [place] En[place] [id number] /2022 [facility] [place] 30307-2 05/ [place] Encounter [id number] /2021 [facility] Outpatient 19409-1 RENA,T 03/19 [place] Encounter [id number] ERRY /2021 [facility] [place] 67447-2 05/10 [place] Encounter [id number] /2021 [facility] [place] 40565-5 05/ [place] Encounter [id number] /2021 [facility] [place] 28127-1 05/ [place] Encounter [id number] /2021 [facility] EXT 85767-6.61 Diagnos KIKIBRADL 04/04 [place] ECG>7D<15D [id number] is: EY A [facility] RECORDING ICD-10- HCS CM I48.92 Unspeci fied atrial flutter
Provide r Comment s: Unspeci fied Atrial Flutter Outpatient 76366-004/04 [place] Encounter [id number] /2021 [facility] HCS ELECTROCAR 47721-9 Diagnos AGUILAR,SE 04/10 [place] DIOGRAM [id number] is: [facility] COM[facility]- HCS CM Z13.6 Encount er for screeni ng for cardiov ascular disorde rs
with Provide r Comment s: Encount er for Screeni ng for Cardiov ascular Disorde rs OFFICE 28568-3 Diagnos AB MARCELL 04/10 [place] CONSULTATI [id number] is: BIE L [facility] ON ICD-10- HCS CM I47.1 Suprave ntricul ar tachyca rdia
with Provide r Comment s: Multifo sergio atrial tachyca rdia (SCT [id number] 0) Outpatient 10554-504/10 [place] Encounter [id number] [facility] OFF[facility]P 03389-9 Diagnos MARYELLEN LEON 04/12 [place] EST SF [id number] is: H /2021 [facility] 10-19 MIN ICD-10- HCS CM I48.0 Paroxys mal atrial fibrill ation<b r/>with Provide r Comment s: Paroxys mal atrial fibrill ation (SCT [id number] 02) [place] [address]-8 Diagnos ANKIT,KR 04/23 [place] DIG [id number] is: ISTIN Y /2021 [facility] ASSMT&MGMT ICD-10- HCS 21+ CM Z79.01 prison (curren t) use of anticoa gulants
wi Provide r Comment s: oysterman (curren t) [place] [address]-4 Diagnos ANKIT,MARCI 04/24 [place] DIG [id number] is: ISTIN Y /2021 [facility] ASSMT&MGMT ICD-10- HCS 11-20 CM Z79.01 prison (curren t) use of anticoa gulants
wi Provide r Comment s: oysterman (curren t) use of anticoa gulants [place] 38192-6 Diagnos HUSEYIN ARCOSPETRA 05/01 [place] PHONE CALL [id number] is: NA P /2021 [facility] 11-20 MIN ICD-10- HCS CM Z71.89 Other specifi ed parliamentary counsel ing<br/ >with Provide r Comment s: Other specifi ed [employer] ing Outpatient 83392-305/03 [place] En[place] [id number] [facility] 91384-705/03 [place] En[place] [id number] [facility] COLONOSCOP 21750-6 Diagnos SANTO THAO 05/07 [place] Y AND [id number] is: VINCE R /2021 [facility] BIOPSY ICD-10- HCS CM K64.8 Other hemorrh oids
with Provide r Comment s: Other Hemorrh oids Outpatient 59759-3.61 05/07 [place] Encounter [id number] [facility] Outpatient 43897-3 MAYELA MEDEL 05/08 [place] En[place] [id number] Z L [facility] [place] 22420-1.61 05/09 [place] Encounter [id number] [facility] Outpatient 47435-905/15 [place] En[place] [id number] [facility] [place] 50052-1.05/15 [place] Encounter [id number] [facility] ELECTROCAR 32854-3 Diagnos CHARLES LOZOYAO 05/15 [place] DIOGRAM [id number] [facility] CM Z13.6 Encount er for screeni ng for cardiov ascular disorde rs
with Provide r Comment s: Encount er for Screeni ng for Cardiov ascular Disorde rs HEMOGLOBIN 16496-1.61 Diagnos ILIANA, 05/15 [place] [id number] is: OBI K /2021 [facility] [place] ICD-10- [facility] CM I48.0 Paroxys mal atrial fibrill ation<b r/>with Provide r Comment s: Paroxys mal atrial fibrill ation ([facility] [id number]) OFFICE O/P [id number] Diagnos MARCELL,AB 05/15 [place] EST MOD [id number] is: BIE L [facility] [place] 30-39 MIN ICD-10- HCS CM I47.1 Suprave ntricul ar tachyca rdia
with Provide r Comment s: Multifo sergio atrial tachyca rdia ([facility] [id number]) Outpatient 60200-3 MIGUEL ÁNGEL 06/01 [place] Encounter [id number] ERICKSON RODRIGUEZ /2021 [facility] [place] [facility] [place] 34067-2.61 SA VU 06/19 [place] Encounter [id number] RA R /2021 [facility] [place] [facility] [place] 48980-561 06/21 [place] Encounter [id number] [facility] Outpatient 48968-4.61 SYSTEM,CIS 06/24 [place] Encounter [id number] -ARK /2021 [facility] EMERGENCY 66752-6.61 Diagnos STANISLAW MENDOZA 06/24 [place] DEPT VISIT [id number] is: D W [facility] ICD-10- [facility] CM R62.7 Adult failure to thrive< br/>wit h Provide r Comment s: Adult Failure to Thrive Outpatient 42538-2.61 06/24 [place] Encounter [id number] /2021 [facility] Inpatient 06590-0.61 Admit LISA HILLS 06/24 [place] Encounter [id number] Reason: SEIN ISSAK /2021 [facility] REC DC [facility]<b r/> Inpatient 75831-3.61 06/25 06/25 [place] En[place] [id number] /2021 [facility] Inpatient 81636-6.61 06/25 06/25 [place] Encounter [id number] /2021 [facility] Inpatient 67655-8.61 06/25 06/25 [place] Encounter [id number] /2021 [facility] Social History Combined list of available smoking, tobacco, and other social history [facility]. Social History Type Response Date Comment Source Tobacco smoking [facility] History of tobacco [place]-TO[place]ACCO QUIT 1 TO < 03/05/2022 [facility] use 5 YRS History of tobacco [place]-TOBACCO NEVER USED 06/01/2021 [facility] use History of tobacco [place]-TOBACCO QUIT < 1 12/31/2019 [place] [facility] use YEAR History of tobacco VA-TOBACCO FORMER USER 03/23/2019 [facility] use History of tobacco CURRENT TOBACCO USER 06/10/2018 [facility] use History of tobacco INPT TOBACCO COUNSELING 05/10/2018 [facility] use History of tobacco FORMER TOBACCO USE <1Y 08/29/2017 [facility] use History of tobacco INPT TOBACCO COUNSELING 05/26/2017 [facility] use History of tobacco INPT TOBACCO COUNSELING 05/03/2017 [facility] use History of tobacco FORMER TOBACCO USE <1Y 09/18/2016 [facility] use History of tobacco INPT TOBACCO USE - PT 08/10/2016 [facility] use REFUSED History of tobacco INPT TOBACCO COUNSELING 08/01/2016 [facility] use History of tobacco CURRENT TOBACCO USER 02/08/2015 [facility] use History of tobacco CURRENT TOBACCO USER 11/29/2013 [facility] use History of tobacco PATIENT IS TOBACCO USER 11/26/2013 [facility] use History of tobacco CURRENT TOBACCO USER 11/27/2012 [facility] use History of tobacco CURRENT TOBACCO USER 12/27/2011 [facility] use History of tobacco CURRENT TOBACCO USER 01/22/2011 [facility] use History of tobacco CURRENT TOBACCO USER 03/13/2010 [facility] use Plan of Care List of future care activities from [facility] facilities. Additional future care activities may be listed in the Assessment and Plan section. Date/Time Care Activity Care Activity Detail Facility 07/12/2022 AMBULATORY - SURGERY AMBULATORY - SURGERY [facility] Advance Directives List of completed, amended, or rescinded Advance Directives on record at [facility] facilities. An actual copy of the Directive is not included. Date Advance Directive Provider Source 02/25/2018 ADVANCE DIRECTIVE [facility] 02/24/2018 ADVANCE DIRECTIVE DISCUSSION [facility] 05/26/2017 CLINICAL WARNING MAGO CONTRERAS [facility] 05/03/2017 CLINICAL WARNING SARIAH ENGLE [facility] 08/10/2016 CLINICAL WARNING ISABEL BARCENAS [facility] 08/02/2016 CLINICAL WARNING [facility] ALMAZAN [facility]
== END 2022-06-18 11:40 | disposition other institution (70) ==
PROVIDERS: Emergency Provider Family Medicine
DX: S12.401A Unspecified nondisplaced fracture of fifth cervical vertebra, initial encounter for closed fracture (principal); S12.501A Unspecified nondisplaced fracture of sixth cervical vertebra, initial encounter for closed fracture; S12.601A Unspecified nondisplaced fracture of seventh cervical vertebra, initial encounter for closed fracture; W17.89XA Other fall from one level to another, initial encounter
CPT/HCPCS: 36415; 70450; 72125; 80048; 80076; 80306; 82077; 82310; 82330; 83735; 84484; 85025; 85610; 85730; 87502; 87634; 87635; 93005; 96374; 96375; 99285; 99291; A9270; J2270; J2405; J7120

== ENCOUNTER 2022-06-18 11:26 | Outpatient (CLI) | payer OTHER, MEDICARE, SELFPAY ==
--- OUTSIDE RECORDS SUMMARY | 2022-07-04 09:05 | XMS_ITS | Continuity of Care Document ---
:1950 Author Organization [facility] Care Team Providers Name Role Phone [facility] Unavailable Unavailable Problems Combined list of problems from Department of Defense and [facility] Affairs facilities. It does not include entries that were removed or entered in error. Problem Status Onset Problem Date of Comments Source Date Type Resolution Acute non-ST segment Active Condition [place] elevation myocardial [facility] infarction Alcohol abuse Active Condition [place] (SNOMED CT 10368562) [facility] Anemia (SNOMED CT Active Condition [place] [id number][place] [facility] Ankle pain Active [place] [facility] Benign essential Active Condition [place] hypertension (OMED [facility] CT 7975264) CAD - Coronary Active Condition Sep 18, [place] artery disease 2015 Entered [facility] By: MARYELLEN LEON Comment: s/p stenting Cannabis abuse Active Condition [place] (SNOMED CT 04693483) [facility] Chronic kidney Active Condition [place] disease [facility] Drug monitoring done Active Condition [facility] Elevated liver Active Condition [place] enzymes level [facility] Gastroesophageal Active Condition [place] reflux disease [facility] S (SNOMED CT 001930714) Hand pain Active [place] [facility] Hearing loss * Active Condition [place] (ICD-9-CM 389.9) [facility] HTN - Hypertension Active Condition [place] (SNOMED CT 96972772) [facility] Hyperlipidemia Active Condition [place] (SNOMED CT 54694241) [facility] Jt Replcmnt Stat, Active Condition [place] Knee [facility] Long-term current Active Condition [place] use of anticoagulant [facility] 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, [place]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 Entered [facility] By: MARYELLEN LEON Comment: hospitalized [facility] 02/2022 Pain in joint Active Condition May 14, [place] involving shoulder 2010 Entere d [facility] region (ICD-9-CM By: 719.41) MARYELLEN LEON Comment: RIGHT Pain of right Active Condition [place] shoulder joint [facility] S Paroxysmal atrial Active Condition [place] fibrillation [facility] Rhinitis Active [place] [facility] Rib fracture Active Condition Dec 15, [place] 2018 Entered [facility] By: MARYELLEN LEON Comment: s/p fall 11/2018, RIGHT rib Seropositive Active Condition [place] rheumatoid arthritis [facility] Knee: arthralgia * Inactive Condition 05/04/2010 [place] (ICD-9-CM 719.46) [facility] Diagnosis: ICD-10-CM active Diagnosis [place] Z71.89 Other [facility] specified counselingwith Provider Comments: Specified counseling, not listed elsewhere Diagnosis: ICD-10-CM active Diagnosis [place] 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 [facility] (current) use of anticoagulantswith Provider Comments: senior care (current) use of anticoagulants Diagnosis: ICD-10-CM active Diagnosis [place] Z73.6 Limitation of [facility] activities due to disabilitywith Provider Comments: Limitation of activities due to disability Diagnosis: ICD-10-CM active Diagnosis [place] Z71.89 Other [facility] specified counselingwith Provider Comments: Other specified Counseling Diagnosis: ICD-10-CM active Diagnosis [place] Z74.09 Other reduced [facility] mobilitywith Provider Comments: Reduced Mobility Diagnosis: ICD-10-CM active Diagnosis [place] F10.20 Alcohol [facility] S dependence, uncomplicatedwith Provider Comments: Alcohol dependence, uncomplicated Admit Reason: FALL active Diagnosis [place] REC DC [facility] Diagnosis: ICD-10-CM active Diagnosis [place] R62.7 Adult failure [facility] to thrivewith Provider Comments: Adult Failure to Thrive Diagnosis: ICD-10-CM active Diagnosis [place] I47.1 [facility] Supraventricular tachycardiawith Provider Comments: Multifocal atrial tachycardia ([facility] [id number]) Diagnosis: ICD-10-CM active Diagnosis [place] I48.0 Paroxysmal [facility] atrial fibrillationwith Provider Comments: Paroxysmal atrial fibrillation ([facility] [id number]) Diagnosis: ICD-10-CM active Diagnosis [place] Z13.6 Encounter for [facility] screening for cardiovascular disorderswith Provider Comments: Encounter for Screening for Cardiovascular Disorders Diagnosis: ICD-10-CM active Diagnosis [place] K64.8 Other [facility] hemorrhoidswith Provider Comments: Other Hemorrhoids Diagnosis: ICD-10-CM active Diagnosis [place] I48.92 Unspecified [facility] atrial flutterwith Provider Comments: Unspecified Atrial Flutter Diagnosis: ICD-10-CM active Diagnosis [place] I47.1 [facility] Supraventricular tachycardiawith Provider Comments: Multifocal atrial tachycardia (SNOMED CT 57372280) Diagnosis: ICD-10-CM active Diagnosis [place] M06.9 Rheumatoid [facility] arthritis, unspecifiedwith Provider Comments: Seropositive rheumatoid arthritis ([facility] [id number]) Diagnosis: ICD-10-CM active Diagnosis [place] K02.9 Dental caries, [facility] unspecifiedwith Provider Comments: Dental Caries, unspecified Diagnosis: ICD-10-CM active Diagnosis [place] Z23 Encounter for [facility] immunizationwith Provider Comments: Encounter for Immunization Diagnosis: ICD-10-CM active Diagnosis [place] H25.13 Age-related V [facility] nuclear cataract, bilateralwith Provider Comments: Age-related nuclear cataract, bilateral Diagnosis: ICD-10-CM active Diagnosis [place] I25.10 Athscl heart [facility] disease of standing rock coronary artery w/o ang pctrswith Provider Comments: CAD - Coronary artery disease ([facility] [id number]) Diagnosis: ICD-10-CM active Diagnosis [place] L40.50 Arthropathic [facility] psoriasis, unspecifiedwith Provider Comments: Psoriatic arthritis Diagnosis: ICD-10-CM active Diagnosis [place] M05.9 Rheumatoid [facility] arthritis with rheumatoid factor, unspecifiedwith Provider Comments: Seropositive Rheumatoid arthritis Medications Combined list of outpatient medications from Department of Defense and [facility] facilities. Medications provided include 1) outpatient medications from the last 15 months, and 2) patient-reported medications. Medication Details Route Status Patient Prescription Prescription Last Ordering Order Source Instructions Expires Number Dispense Provider Date Date ACETAMINOPH TAKE TWO ORALLY ACTIVE 02/09/2023 [id number] H OANG,VIE 02/11/ [place] 500MG TABLETS 2 T H 2021 [place] TAB BY MOUTH [facility] FOUR TIMES A DAY NEEDED *NOT TO EXCEED 4000MG IN 24 HOURS* FOR PAIN ACETAMINOPH TAKE TWO ORALLY DISCONT 01/13/2022 [id number] LEON,VIE 01/16/ [place] 500MG TABLETS INUED 2 T H 2020 [place] TAB BY MOUTH [facility] FOUR TIMES A DAY NEEDED *NOT TO EXCEED 4000MG IN 24 HOURS* FOR PAIN ADALIMUMAB INJECT SUBCUT ACTIVE 01/12/2023 [id number] RIN DEN,TI 02/08/ [place] 40MG/0.8ML 40 MG ANEOUS 2 MOTHY D 2021 [place] A INJ,PEN,KIT UNDER HCS THE SKIN EVERY 2 WEEKS ADALIMUMAB INJECT SUBCUT DISCONT 09/29/2022 [id number] MO ROBERTIRINEO,Saadia 10/01/ [place] 40MG/0.8ML 40 MG ANEOUS INUE 2 ERRY A 2020 [place] INJ,PEN,KIT UNDER HCS THE SKIN EVERY 2 WEEKS ADALIMUMAB INJECT SUBCUT DISCONT 01/13/2022 [id number] AL VANPOUR 01/16/ [place] 40MG/0.8ML 40 MG ANEOUS INUE 1 ,RAGHAVENDRA 2020 [place] INJ,PEN,KIT UNDER HCS THE SKIN EVERY 2 WEEKS AMIODARONE TAKE ONE ORALLY SUSPEND 05/16/2023 [id number] M CCRARY,A 05/16/ [place] HCL TABLET ED 2 BBIE L 2021 [place] (PACERONE) BY MOUTH HCS 200MG TAB EVERY DAY FOR HEART RHYTHM - TAKE WITH FOOD AMIODARONE TAKE ONE ORALLY DISCONT 07/09/2022 [id number] M CCRARY,A 04/10/ [place] HCL TABLET INUED 2 BBIE L 2021 [place] (PACERONE) BY MOUTH (EDIT) HCS 200MG TAB TWICE A DAY FOR 30 DAYS, THEN TAKE ONE TABLET EVERY DAY FOR HEART RHYTHM - TAKE WITH FOOD APIXABAN TAKE ONE ORALLY ACTIVE 06/06/2023 [id number] EDUARDO ON, 06/06/ [place] 5MG TAB TABLET 2 HANG 2021 [place] BY MOUTH J HCS EVERY 12 HOURS TO PREVENT BLOOD CLOTS and STROKE. APIXABAN TAKE ONE ORALLY DISCONT 04/24/2023 [id number] Arias GRACIA 04/24/ [place] 5MG TAB TABLET INUED 2 RISTIN Y 2021 [place] BY MOUTH (EDIT) HCS EVERY 12 HOURS TO PREVENT BLOOD CLOTS and STROKE. APIXABAN TAKE ONE ORALLY DISCONT 05/10/2022 [id number] [facility] RARY,A 04/10/ [place] 5MG TAB TABLET INUED 2 BBIE L 2021 [place] BY MOUTH (EDIT) HCS EVERY 12 HOURS TO PREVENT BLOOD CLOTS and STROKE. ASPIRIN TAKE ONE ORALLY DISCONT 06/02/2022 [id number] CHARLES SEARSE 07/26/ [place] 81MG TAB,EC TABLET INUED 2 T H 2020 [place] BY MOUTH HCS EVERY DAY ASPIRIN TAKE ONE ORALLY DISCONT 12/26/2021 [id number] DANAY NG,VIE 12/27/ [place] 81MG TAB,EC TABLET INUE 1 T H 2020 [place] BY MOUTH HCS EVERY DAY ATORVASTATI TAKE ONE ORALLY ACTIVE 03/06/2023 [id number] H OANG,VIE 03/05/ [place] CA 80MG TABLET 2 T H 2021 [place] TAB BY MOUTH HCS AT BEDTIME FOR CHOLESTE ROL REPLACES SIMVASTA TIN ATORVASTATI TAKE ORALLY DISCONT 06/02/2022 [id number] H OANG,VIE 06/03/ [place] 80MG ONE-HALF INUED 2 T H 2020 [place] TAB TABLET (EDIT) HCS BY MOUTH AT BEDTIME FOR CHOLESTE ROL REPLACES SIMVASTA TIN CARBOXYMETH INSTILL BOTH ACTIVE 07/12/2022 [id number] SCHEU RER, 07/12/ [place] YLCELLULOSE 1 DROP EYES 1 ANGELA A 2020 [place] A NA 0.25% IN BOTH HCS SOLN,OPH EYES FOUR TIMES A DAY CEPHALEXIN TAKE 1 ORALLY ACTIVE CAROLYNJATIN [place] 500MG CAP CAPSULE T H 2021 [place] BY MOUTH HCS FOUR TIMES A DAY CHOLECALCIF TAKE ONE ORALLY SUSPEND 06/29/2023 [id number] LEON,VIE 07/27/ [place] RONAK 25MCG TABLET ED 2 T H 2021 [place] (1,000UNIT) BY MOUTH HCS TAB EVERY DAY CHOLECALCIF TAKE ONE ORALLY DISCONT 06/02/2022 [id number] LEON,VIE 06/03/ [place] RONAK 25MCG TABLET INUED 2 T H 2020 [place] (1,000UNIT) BY MOUTH HCS TAB EVERY DAY CYANOCOBALA TAKE ONE ORALLY ACTIVE 03/06/2023 [id number] LEON,VIE 05/30/ [place] MIN 1000MCG TABLET 2 T H 2021 [place] TAB BY MOUTH HCS EVERY DAY CYANOCOBALA TAKE ONE ORALLY DISCONT 06/02/2022 [id number] LEON,VIE 06/03/ [place] MIN 1000MCG TABLET INUED 2 T H 2020 [place] TAB BY MOUTH HCS EVERY DAY DOCUSATE NA TAKE TWO ORALLY ACTIVE LEON,VIE 06/24 / [place] 50MG/SENNOS TABLETS T H 2021 [place] A IDES 8.6MG BY MOUTH HCS TAB TWICE A DAY FLUTICASONE SPRAY 1 NASAL ACTIVE 06/29/2023 [id number] H OANG,VIE 07/02/ [place] PROPIONATE SPRAY IN 2 T H 2021 [place] A 50MCG/SPRAY EACH HCS SOLN,NASAL, NOSTRIL 16GM TWICE A DAY NEEDED FOR RUNNY NOSE USE REGULARL Y FOR RELIEF OF ALLERGIE S/CONGES TION FLUTICASONE SPRAY 1 NASAL DISCONT 06/02/2022 [id number] LEON,VIE 06/03/ [place] PROPIONATE SPRAY IN INUED 1 T H 2020 [place] A 50MCG/SPRAY EACH HCS SOLN,NASAL, NOSTRIL 16GM TWICE A DAY NEEDED FOR RUNNY NOSE USE REGULARL Y FOR RELIEF OF ALLERGIE S/CONGES TION FOLIC ACID TAKE ONE ORALLY ACTIVE 03/06/2023 [id number] H OAMATTHEW,VIE 04/25/ [place] 1MG TAB TABLET 2 T H 2021 [place] BY MOUTH HCS EVERY DAY FOLIC ACID TAKE ONE ORALLY DISCONT 01/12/2023 [id number] RINDEN,TI 02/04/ [place] 1MG TAB TABLET INUED 2 MOTHY D 2021 [place] BY MOUTH HCS EVERY DAY FOLIC ACID TAKE ONE ORALLY DISCONT 01/13/2022 [id number] ALVANPOUR 02/19/ [place] 1MG TAB TABLET INUE 1 ,RAGHAVENDRA 2020 [place] BY MOUTH HCS EVERY DAY GABAPENTIN TAKE ONE ORALLY ACTIVE 06/29/2023 [id number] HO ANG,VIE 07/02/ [place] 300MG CAP CAPSULE 2 T H 2021 [place] BY MOUTH HCS THREE TIMES A DAY GABAPENTIN TAKE 1 ORALLY ACTIVE LEONJATIN [place] 300MG CAP CAPSULE T H 2021 [place] BY MOUTH HCS THREE TIMES A DAY HEMORRHOIDA APPLY RECTAL ACTIVE [place] L OINT,RTL THIN SSEIN 2021 [place] LAYER TO ISSAK HCS RECTUM FOUR TIMES A DAY NEEDED ISOSORBIDE TAKE ORALLY ACTIVE 03/06/2023 [id number] JATIN LEON 03/13/ [place] MONONITRATE ONE-HALF 2 T H 2021 [place] 60MG TAB,SA TABLET HCS BY MOUTH EVERY DAY ISOSORBIDE TAKE ORALLY DISCONT 03/22/2022 [id number] FB-SAG ER, 02/21/ Dep[place] MONONITRATE ONE-HALF INUED 2 ANGELA 2021 ent o f 60MG TAB,SA TABLET [place] BY MOUTH s EVERY DAY ISOSORBIDE TAKE ONE ORALLY DISCONT 06/02/2022 [id number] CHARLES LEONNina 06/23/ [place] MONONITRATE TABLET INUED 2 T H 2020 [place] 60MG TAB,SA BY MOUTH HCS EVERY DAY FOR CHEST PAIN ISOSORBIDE TAKE ONE ORALLY DISCONT 07/29/2021 [id number] CHARLES LEONNina 09/12/ [place] MONONITRATE TABLET INUE 1 T H 2019 [place] 60MG TAB,SA BY MOUTH HCS EVERY DAY FOR CHEST PAIN LIDOCAINE APPLY 1 TOPICA ACTIVE 06/29/2023 [id number] LEONJATIN 07/02/ [place] 5% PATCH PATCH LLY 2 T H 2021 [place] TOPICALL HCS Y NEEDED FOR PAIN. WEAR FOR ONLY 12 HOURS THEN REMOVE FOR 12 HOURS. LIDOCAINE APPLY TOPICA ACTIVE JATIN LOEN 06/24/ [place] PATCH 1-3 LLY T H 2021 [place] PATCH 4% HCS TOPICALL Y EVERY DAY LORATADINE TAKE ONE ORALLY ACTIVE 06/29/2023 [id number] HO JATIN [place] 07/13/ [place] 10MG TAB TABLET 2 T H 2021 [place] BY MOUTH HCS EVERY DAY FOR ALLERGY SYMPTOMS LORATADINE TAKE ONE ORALLY DISCONT 06/02/2022 [id number] H JATIN IZAGUIRRE 06/23/ [place] 10MG TAB TABLET INUED 2 T H 2020 [place] BY MOUTH HCS EVERY DAY FOR ALLERGY SYMPTOMS LORATADINE TAKE ONE ORALLY DISCONT 07/29/2021 [id number] H JATIN IZAGUIRRE 09/04/ [place] 10MG TAB TABLET INUE 1 T H 2019 [place] BY MOUTH HCS EVERY DAY FOR ALLERGY SYMPTOMS MAGNESIUM TAKE 1 ORALLY 04/05/2022 [id number] RANWEI LER 03/06/ [place] CITRATE BOTTLE 2 ,VJ B 2021 [place] LIQUID,ORAL BY MOUTH HCS ONCE AT 12PM (NOON) ONE DAY BEFORE PROCEDUR E FOR COLON PREP METHOCARBAM TAKE ONE ORALLY ACTIVE 06/29/2023 [id number] H JATIN IZAGUIRRE 07/02/ [place] 500MG TABLET 2 T H 2021 [place] TAB BY MOUTH HCS THREE TIMES A DAY NEEDED FOR MUSCLE SPASM OR MUSCLE PAIN METHOCARBAM TAKE ORALLY ACTIVE JTAIN LEON [place] TAB ONE-HALF T H 2021 [place] TO ONE HCS TABLET BY MOUTH EVERY 6 HOURS NEEDED METOPROLOL TAKE ONE ORALLY ACTIVE 03/06/2023 [id number] H JATIN IZAGUIRRE 03/13/ [place] TARTRATE TABLET 2 T H 2021 [place] 50MG TAB BY MOUTH HCS TWICE A DAY METOPROLOL TAKE ONE ORALLY DISCONT 03/22/2022 [id number] F B-GABRIEL, Departm TARTRATE TABLET INUED 2 ANGELA 2021 ent of 50MG TAB BY MOUTH [place] TWICE A s DAY Affairs METOPROLOL TAKE ORALLY DISCONT 06/02/2022 [id number] CHARLES LEONE 08/07/ [place] TARTRATE ONE-HALF INUED 2 T H 2020 [place] 50MG TAB TABLET HCS BY MOUTH TWICE A DAY FOR HEART METOPROLOL TAKE ORALLY DISCONT 07/29/2021 [id number] CHARLES LEONE 08/18/ [place] TARTRATE ONE-HALF INUE 1 T H 2019 [place] 50MG TAB TABLET HCS BY MOUTH TWICE A DAY FOR HEART OXYCODONE TAKE ORALLY ACTIVE JATIN LEON 06/24/ [place] TAB ONE-HALF T H 2021 [place] TO ONE HCS TABLET BY MOUTH EVERY 4 HOURS NEEDED PANTOPRAZOL TAKE ONE ORALLY ACTIVE 03/06/2023 [id number] LEON,VIE 04/30/ [place] E NA 40MG TABLET 2 T H 2021 [place] TAB,EC BY MOUTH HCS EVERY MORNING ONE-HALF HOUR BEFORE EATING TO DECREASE STOMACH ACID TAKE ON AN EMPTY STOMACH, AT LEAST 30 MINUTES PRIOR TO MEAL PANTOPRAZOL TAKE ONE ORALLY DISCONT 06/02/2022 [id number] LEON,VIE 08/07/ [place] NA 40MG TABLET INUED 2 T H 2020 [place] TAB,EC BY MOUTH HCS EVERY MORNING ONE-HALF HOUR BEFORE EATING TO DECREASE STOMACH ACID TAKE ON AN EMPTY STOMACH, AT LEAST 30 MINUTES PRIOR TO MEAL PANTOPRAZOL TAKE ONE ORALLY DISCONT 07/29/2021 [id number] LEON,VIE 08/09/ [place] 40MG TABLET INUE 1 T H 2019 [place] TAB,EC BY MOUTH HCS EVERY MORNING ONE-HALF HOUR BEFORE EATING TO DECREASE STOMACH ACID TAKE ON AN EMPTY STOMACH, AT LEAST 30 MINUTES PRIOR TO MEAL PEG-3350/EL TAKE 1 ORALLY 04/05/2022 [id number] RA NWEILER 03/06/ [place] ECTROLYTES CONTAINE 2 [...] BEFORE EXAM. POLYETHYLEN TAKE 17 ORALLY ACTIVE 06/29/2023 [id number] HO ANG,VIE 07/02/ [place] GLYCOL GRAMS BY 2 T H 2021 [place] 3350 MOUTH HCS PWDR,ORAL TWICE A DAY NEEDED FOR CONSTIPA TION *MIX IN 4 TO 8 OUNCES OF LIQUID DIRECTED *USE COVER TO MEASURE POWDER* POLYETHYLEN TAKE 17 ORALLY ACTIVE JATIN LEON 06/24/ [place] GLYCOL GRAMS BY T H 2021 [place] 3350 MOUTH HCS PWDR,ORAL TWICE A DAY PREDNISONE TAKE ONE ORALLY ACTIVE 01/12/2023 [id number] R IN[place],TI 01/19/ [place] 10MG TAB TABLET 2 MOTHY D 2021 [place] BY MOUTH HCS EVERY DAY PREDNISONE TAKE ONE ORALLY DISCONT 03/21/2022 [id number] M OL[place],J 03/20/ [place] 10MG TAB TABLET INUE 1 ERRY A 2020 [place] BY MOUTH HCS EVERY DAY SULFASALAZI TAKE TWO ORALLY ACTIVE 01/12/2023 [id number] RINDEN,TI 01/19/ [place] 500MG TABLETS 2 MOTHY D 2021 [place] TAB BY MOUTH HCS TWICE A DAY SULFASALAZI TAKE TWO ORALLY DISCONT 03/21/2022 [id number] [place],J 03/20/ [place] 500MG TABLETS INUE 1 ERRY A 2020 [place] TAB BY MOUTH HCS TWICE A DAY TAMSULOSIN TAKE ONE ORALLY ACTIVE 06/29/2023 [id number] CHARLES WHITESIDEE 07/02/ [place] HCL 0.4MG CAPSULE 2 T H 2021 [place] CAP BY MOUTH HCS AT BEDTIME TAMSULOSIN TAKE 1 ORALLY ACTIVE LEONCHARLES SPAINE 06/24/ [place] HCL 0.4MG CAPSULE T H 2021 [...] atus Comments Source Given By Number Code L D Rn COVID-19 4 complet PFR; [place] (wywy), 2021 ed [id number]; [place] MRNA, LNP-S, 02 HCS PF, 30 2 MCG/0.3 ML DOSE, JJ-SUCROSE (AGES 12+ YEARS) COVID-19 3 complet PRF; [place] (PFIZER), 2020 ed [id number]; [place] MRNA, LNP-S, 02 HCS PF, 30 2 MCG/0.3 ML DOSE INFLUENZA, complet [place] INJECTABLE, 2020 ed [place] QUADRIVALENT, HCS PRESERVATIVE FREE COVID-19 2 complet PFR; [place] (PFIZER), 2020 ed [id number]; [place] MRNA, LNP-S, 02 HCS PF, 30 1 MCG/0.3 ML DOSE COVID-19 1 complet PFR; [place] (PFIZER), 2020 ed [id number]; [place] MRNA, LNP-S, 02 CBOC PF, 30 1 MCG/0.3 ML DOSE INFLUENZA, complet [place] INJECTABLE, 2019 ed [place] QUADRIVALENT, HCS PRESERVATIVE FREE INFLUENZA, complet [place] SEASONAL, 2018 ed [place] INJECTABLE, HC S PRESERVATIVE FREE ZOSTER 2 complet [place] RECOMBINANT 2018 ed [place] HCS ZOSTER 1 complet [place] RECOMBINANT 2018 ed [place] HCS INFLUENZA, complet [place] SEASONAL, 2017 ed [place] INJECTABLE, HC S PRESERVATIVE FREE INFLUENZA, complet [place] HIGH DOSE 2016 ed [place] SEASONAL HCS INFLUENZA, complet [place] SEASONAL, 2016 ed [place] INJECTABLE, HC S PRESERVATIVE FREE INFLUENZA, complet [place] HIGH DOSE 2014 ed [place] SEASONAL HCS PNEUMOCOCCAL complet [facility] [place] CONJUGATE PCV 2014 ed PHARM, M20 [place] 13 640,03/03 HCS INFLUENZA, complet [place] SEASONAL, 2013 ed [place] INJECTABLE, HC S PRESERVATIVE FREE PNEUMOCOCCAL, complet michelle ck and [place] UNSPECIFIED 2013 ed [id number] [place] FORMULATION 6,25sep1 4 HCS INFLUENZA, complet [place] UNSPECIFIED 2013 ed [place] FORMULATION HC S INFLUENZA, complet [place] UNSPECIFIED 2012 ed [place] FORMULATION HC S ZOSTER LIVE complet [employer] [place] 2012 ed INC, [place] [id number], HCS [id number] TDAP complet [employer] M [place] 2009 ed hkline,ac [place] [id number], [facility] 01/03/12 Results Combined list of recent chemistry, [...] 2022 06:55 PM Reporting Lab: [facility] [address] [place] [phone] Performing Lab: [facility] [address] [place] [address] URINALYS SPECIFIC 1.039 1.003 - 06/24 H Specimen Type: [place]INE [place] GRAVITY OF 1.035 /2021 No comment en zach. IS [facility] URINE Ordering Provid er: JAYDE MENDOZA Report Released Date/Time: Jun 24, 2022 06:55 PM Reporting Lab: [facility] [address] [place] [address] Performing Lab: [facility] [address] [place] [address] URINALYS BILIRUBIN. NEGATIVE 06/24 Specimen Ty pe: URINE [place] TOTAL /2021 No comment enter ed. IS [facility] [PRESENCE] Ordering Pro vider: JAYDE MENDOZA IN URINE Report Release d Date/Time: Jun 24, 2022 06:55 PM BY TEST Reporting Lab: [facility] STRIP [address] [place] [address] Performing Lab: [facility] [address] [place] [address] URINALYS KETONES NEGATIVE 06/24 Specimen Type: URINE [place] [MASS/VOLU /2021 No comment en terhernando. IS [facility] ME] IN Ordering Provid er: JAYDE MENDOZA URINE BY Report Release d Date/Time: Jun 24, 2022 06:55 PM TEST STRIP Reporting La b: [facility] [place] [address] Performing Lab: [facility] [address] [place] [address] URINALYS GLUCOSE NEGATIVE <30 - 30 06/24 Specimen Type : URINE [place] [MASS/VOLU /2021 No comment en tered. IS [facility] ME] IN Ordering Provid er: JAYDE MENDOZA URINE BY Report Release d Date/Time: Jun 24, 2022 06:55 PM TEST STRIP Reporting La b: [facility] [place] [address] Performing Lab: [facility] [address] [place] [address] URINALYS PROTEIN 50 <20 - 20 06/24 Specimen Type: URINE [place] [MASS/VOLU /2021 No comment en brennaed. IS [facility] ME] IN Ordering Provid er: JAYDE MENDOZA URINE BY Report Release d Date/Time: Jun 24, 2022 06:55 PM TEST STRIP Reporting La b: [facility] [place] [address] Performing Lab: [facility] [place] [address] URINALYS PH OF 6.5 5.0 - 8.0 06/24 Specimen Type : URINE [place] URINE BY /2021 No comment jessica bills. IS [facility] TEST STRIP Ordering Pro vider: JAYDE MENDOZA Report Released Date/Time: Jun 24, 2022 06:55 PM Reporting Lab: [facility] [place] [address] Performing Lab: [facility] [place] [address] URINALYS LEUKOCYTES 17 0 - 7 06/24 H Specimen Typ e: URINE [place] [#/AREA] /2021 No comment jessica bills. IS [facility] IN URINE Ordering Provi maria: JAYDE MENDOZA SEDIMENT Report Release d Date/Time: Jun 24, 2022 06:55 PM BY Reporting Lab: [facility] MICROS[facility] [address] [facility] [address] HIGH POWER Performing L ab: [facility] FIELD [place] [address] URINALYS BACTERIA NONE 06/24 Specimen Type: URINE [place] [[place]] SEEN /2021 No comment en terhernando. IS [facility] IN URINE Ordering Provi maria: JAYDE MENDOZA SEDIMENT Report Release d Date/Time: Jun 24, 2022 06:55 PM BY LIGHT Reporting Lab: [facility]CR[facility] [address] Performing Lab: [facility] [place] [address] URINALYS CALCIUM FEW 06/24 Specimen Type: URINE [place] OXALATE /2021 No comment enter ed. IS [facility] CRYSTALS Ordering Provi maria: JAYDE MENDOZA [[place]] Report Relea sed Date/Time: Jun 24, 2022 06:55 PM IN URINE Reporting Lab: [facility] SEDIMENT [address] [facility] [address] BY LIGHT Performing Lab : [facility]CR[facility] [address] URINALYS ERYTHROCYT >180 0 - 3 06/24 H Specimen Typ e: URINE [place] IS ES /2021 No comment enter ed. IS [facility] [#/AREA] Ordering Provi maria: JYADE MENDOZA IN URINE Report Release d Date/Time: Jun 24, 2022 06:55 PM SEDIMENT Reporting Lab: [facility] BY [address] [facility] [id number] MICROSCOPY Performing L ab: [facility] HIGH POWER [facility] [address] FIELD URINALYS APPEARANCE TURBID 06/24 Specimen Typ e: URINE [place] IS OF URINE /2021 No comment ente red. IS [facility] Ordering Provid er: JAYDE MENDOZA Report Released Date/Time: Jun 24, 2022 06:55 PM Reporting Lab: [facility] [address] [facility] [id number] Performing Lab: [facility] [place] [address] URINALYS EPITHELIAL NONE 06/24 Specimen Typ e: URINE [place] IS CELLS.SQUA SEEN /2021 No comment en terhernando. IS [facility] MOUS Ordering Provid er: JAYDE MENDOZA [#/AREA] Report Release d Date/Time: Jun 24, 2022 06:55 PM IN URINE Reporting Lab: [facility] SED[facility]ENT [address] [facility] [id number] BY Performing Lab: [facility] MICROSCOPY [facility] [address] HIGH POWER FIELD URINALYS HEMOGLOBIN 3+ 06/24 Specimen Typ e: [place]INE [place] IS [PRESENCE] /2021 No comment en tered. IS [facility] IN URINE Ordering Provi maria: JAYDE MENDOZA W BY TEST Report Released Date/Time: Jun 24, 2022 06:55 PM STRIP Reporting Lab: [facility] [address] [place] [address] Performing Lab: [facility] [address] [place] [address] URINALYS NITRITE NEGATIVE 06/24 Specimen Type: URINE [place] [PRESENCE] /2021 No comment en tered. IS [facility] IN URINE Ordering Provi maria: JAYDE MENDOZA W BY TEST Report Released Date/Time: Jun 24, 2022 06:55 PM STRIP Reporting Lab: [facility] [place] [address] Performing Lab: [facility] [place] [address] URINALYS LEUKOCYTE 25 06/24 Specimen Type : URINE [place] ESTERASE No comment jessica red. IS [facility] [PRESENCE] Ordering Pro vider: JAYDE MENDOZA IN URINE Report Release d Date/Time: Jun 24, 2022 06:55 PM BY TEST Reporting Lab: [facility] [place] [address] Performing Lab: [facility] [place] [address] AST/SGOT ASPARTATE 19 <34 - 34 06/24 Specimen Typ e: PLASMA [place] AMINOTRANS /2021 No comment en tered. IS [facility] FERASE Ordering Provid er: JAYDE MENDOZA [ENZYMATIC Report Relea sed Date/Time: Jun 24, 2022 08:09 PM ACTIVITY/V Reporting La b: [facility] OLUME] IN [address] [facility] [address] SERUM OR Performing Lab : [facility] [place] [address] POTASSIU POTASSIUM 4.9 3.5 - 5.1 06/24 Specimen Ty pe: PLASMA [place] M [MOLES/VOL /2021 No comment en tered. IS [facility] UME] IN Ordering Provid er: JAYDE MENDOZA SERUM OR Report Release d Date/Time: Jun 24, 2022 08:09 PM PLASMA Reporting Lab: [facility] [place] [address] Performing Lab: [facility] [place] [address] PROTEIN, PROTEIN 6.8 6.0 - 8.3 06/24 Specimen Type : PLASMA [place] TOTAL [MASS/VOLU /2021 No comment en tered. IS [facility] ME] IN Ordering Provid er: JAYDE MENDOZA SERUM OR Report Release d Date/Time: Jun 24, 2022 08:09 PM PLASMA Reporting Lab: [facility] [address] [facility] [address] Performing Lab: [facility] [place] [address] PROTHROM INR IN 1.1 0.8 - 1.1 06/24 Specimen Type : PLASMA [place] BIN PLATELET /2021 No comment ente red. IS [facility] TIME/INR POOR Ordering Provi maria: JAYDE MENDOZA PLASMA BY Report Releas ed Date/Time: Jun 24, 2022 06:55 PM COAGULATIO Reporting La b: [facility] N ASSAY [address] [facility] [address] Performing Lab: [facility] [address] PROTHROM PROTHROMBI 12.1 9.4 - 12.5 06/24 Specimen Type: PLASMA [place] BIN N TIME /2021 No comment enter ed. [facility] TIME/INR (PT) Ordering Provi maria: JAYDE MENDOZA Report Released Date/Time: Jun 24, 2022 06:55 PM Reporting Lab: [facility] [place] [address] Performing Lab: [facility] [address] [facility] [address] COVID-19 SARS-COV-2 Not 06/24 Specimen Typ e: NASOPHARYNGEAL [place] DIAGNOST (COVID-19) Detected /2021 Comment: C epheid GeneXpert (618) IS [facility] IC PANEL RNA Ordering Provi maria: JAYDE MENDOZA (CEPHEID [[place]] Report Rele ased Date/Time: Jun 24, 2022 06:55 PM ) IN Reporting Lab: [facility] RESPIRATOR [address] [facility] [address] Y SPECIMEN Performing L ab: [facility] BY DESTINY [address] [facility] [address] WITH PROBE DETECTION COMPREHE CREATININE 1.3 0.7 - 1.2 08/08 H Specimen T ype: PLASMA [place] NSIVE [MASS/VOLU /2021 Comment: Can cellation reported to: Rajni Giraldo RN on 06/24/22@2003 by el. Test result cancelled due to hemolysis interference in sample. IS [facility] METABOLI ME] IN Ordering Provi maria: JAYDE MENDOZA W C SERUM OR Report Release d Date/Time: Jun 24, 2022 06:55 PM PANEL+MG PLASMA Reporting Lab: [facility] [place] [address] Performing Lab: [facility] [address] [facility] [address] COMPREHE UREA 19 8 - 26 06/24 Specimen Type: PLASMA [place] NSIVE Comment: Cance llation reported to: Rajni Giraldo RN on 06/24/22@2003 by el. Test result cancelled due to hemolysis interference in sample. IS [facility] METABOLI [MASS/VOLU Ordering Pr ovider: JAYDE MENDOZA ME] IN Report Released Date/Time: Jun 24, 2022 06:55 PM PANEL+MG SERUM OR Reporting Lab : [facility] [place] [address] Performing Lab: [facility] [place] [address] COMPREHE GLUCOSE 111 74 - 100 08/08 H Specimen Type: PLASMA [place] NSIVE [MASS/VOLU /2021 Comment: Can cellation reported to: Rajni Giraldo RN on 06/24/22 by el. Test result cancelled due to hemolysis interference in sample. IS [facility] METABOLI ME] IN Ordering Provi maria: JAYDE MENDOZA W C SERUM OR Report Release d Date/Time: Jun 24, 2022 06:55 PM PANEL+MG PLASMA Reporting Lab: [facility] [address] [facility] [address] Performing Lab: [facility] [address] [facility] [address] COMPREHE SODIUM 133 136 - 145 08/08 L Specimen Type : PLASMA [place] NSIVE [MOLES/VOL /2021 Comment: Can cellation reported to: Rajni Giraldo RN on 06/24/22@2003 by el. Test result cancelled due to hemolysis interference in sample. IS [facility] METABOLI UME] IN Ordering Provi maria: KELLY,JAYDE W C SERUM OR Report Release d Date/Time: Jun 24, 2022 06:55 PM PANEL+MG PLASMA Reporting Lab: [facility] [place] [address] Performing Lab: [facility] [place] [address] COMPREHE POTASSIUM canc 3.5 - 5.1 06/24 Specimen Ty pe: PLASMA [place] NSIVE [MOLES/VOL /2021 Comment: Can cellation reported to: Rajni Giraldo RN on 06/24/22@2003 by el. Test result cancelled due to hemolysis interference in sample. IS [facility] METABOLI UME] IN Ordering Provi maria: JAYDE MENDOZA C SERUM OR Report Release d Date/Time: Jun 24, 2022 06:55 PM PANEL+MG PLASMA Reporting Lab: [facility] [place] [address] Performing Lab: [facility] [address] COMPREHE CHLORIDE 103 98 - 107 06/24 [...] 2022 06:55 PM PANEL+MG PLASMA Reporting Lab: [facility] [place] [address] Performing Lab: [facility] [place] [address] COMPREHE CARBON 22 - 06/24 Specimen Type: PLASMA [place] NSIVE Comment: Cance llation reported to: Rajni Giraldo RN on 06/24/22 by el. Test result cancelled due to hemolysis interference in sample. IS [facility] METABOLI TOTAL Ordering Provi maria: JAYDE MENDOZA C [MOLES/VOL Report Relea sed Date/Time: Jun 24, 2022 06:55 PM PANEL+MG UME] IN Reporting Lab: [facility] SERUM OR [address] [facility] [address] PLASMA Performing Lab: [facility] [address] [facility] [address] COMPREHE CALCIUM 9.4 8.4 - 10.2 06/24 Specimen Typ e: PLASMA [place] NSIVE [MASS/VOLU /2021 Comment: Can cellation reported to: Rajni Giraldo RN on 06/24/22@2003 by el. Test result cancelled due to hemolysis interference in sample. IS [facility] METABOLI ME] IN Ordering Provi maria: KELLY,JAYDE W C SERUM OR Report Release d Date/Time: Jun 24, 2022 06:55 PM PANEL+MG PLASMA Reporting Lab: [facility] [address] [facility] [address] Performing Lab: [facility] [address] [facility] [address] COMPREHE PROTEIN canc 6.0 - 8.3 06/24 Specimen Type : PLASMA [place] NSIVE [MASS/VOLU /2021 Comment: Can cellation reported to: Rajni Giraldo RN on 06/24/22 by el. Test result cancelled due to hemolysis interference in sample. IS [facility] [place]] IN Ordering Provi maria: KELLY,JAYDE W C SERUM OR Report Release d Date/Time: Jun 24, 2022 06:55 PM PANEL+MG PLASMA Reporting Lab: [facility] [address] [facility] [address] Performing Lab: [facility] [address] [facility] [address] COMPREHE ALBUMIN 3.9 3.5 - 5.2 06/24 Specimen Type : PLASMA [place] NSIVE [MASS/VOLU /2021 Comment: Can cellation reported to: Rajni Giraldo RN on 06/24/22 by [place]. Test result cancelled due to hemolysis interference in sample. [facility] [place]] IN Ordering Provi maria: KELLY,JAYDE W C SERUM OR Report Release d Date/Time: Jun 24, 2022 06:55 PM PANEL+MG PLASMA Reporting Lab: [facility] [address] [facility] [address] Performing Lab: [facility] [address] [facility] [address] COMPREHE BILIRUBIN. 0.2 0.2 - 1.2 06/24 Specimen T ype: PLASMA [place] NSIVE TOTAL /2021 Comment: Cancel lation reported to: Rajni Giraldo RN on 06/24/22 by el. Test result cancelled due to hemolysis interference in sample. IS [facility] METABOLI [MASS/VOLU Ordering Pr ovider: JAYDE MENDOZA ME] IN Report Released Date/Time: Jun 24, 2022 06:55 PM PANEL+MG SERUM OR Reporting Lab : [facility] [address] [facility] [address] Performing Lab: [facility] [address] [facility] [address] COMPREHE MAGNESIUM 2.3 1.6 - 2.6 06/24 Specimen Ty pe: PLASMA [place] NSIVE [MASS/VOLU /2021 Comment: Can cellation reported to: Rajni Giraldo RN on 06/24/22@2003 by [place]. Test result cancelled due to hemolysis interference in sample. IS [facility] METABOLI ME] IN Ordering Provi maria: JAYDE MENDOZA SERUM OR Report Release d Date/Time: Jun 24, 2022 06:55 PM PANEL+MG PLASMA Reporting Lab: [facility] [address] [facility] [address] Performing Lab: [facility] [address] [facility] [address] COMPREHE ANION GAP 8 5 - 15 06/24 Specimen Type : PLASMA [place] NSIVE IN SERUM /2021 Comment: Cance llation reported to: Rajni Giraldo RN on 06/24/22 by [place]. Test result cancelled due to hemolysis interference in sample. IS [facility] METABOLI OR PLASMA Ordering Pro vider: JAYDE MENDOZA Report Released Date/Time: Jun 24, 2022 06:55 PM PANEL+MG Reporting Lab: [facility] [address] [facility] [address] Performing Lab: [facility] [address] [facility] [address] COMPREHE ALKALINE 56 40 - 150 06/24 Specimen Type : PLASMA [place] NSIVE PHOSPHATAS /2021 Comment: Can cellation reported to: Rajni Giraldo RN on 06/24/22 by [place]. Test result cancelled due to hemolysis interference in sample. IS [facility] METABOLI E Ordering Provi maria: JAYDE MENDOZA [ENZYMATIC Report Relea sed Date/Time: Jun 24, 2022 06:55 PM PANEL+MG ACTIVITY/V Reporting L ab: [facility] O[facility]ME] IN [facility] [address] SERUM [place] Performing Lab : [facility] PL[facility]MA [address] [facility] [address] COMPREHE ALANINE 20 <55 - 55 06/24 Specimen Type: PLASMA [place] NSIVE AMINOTRANS Comment: Can cellation reported to: Rajni Giraldo RN on 06/24/22@2003 by el. Test result cancelled due to hemolysis interference in sample. [facility] FERASE Ordering Provi maria: JAYDE MENDOZA [ENZYMATIC Report Relea sed Date/Time: Jun 24, 2022 06:55 PM PANEL+MG ACTIVITY/V Reporting L ab: [facility] OLUME] IN [facility] [address] SERUM [place] Performing Lab : [facility] [address] [facility] [address] COMPREHE ASPARTATE canc <34 - 34 06/24 Specimen Typ e: PLASMA [place] NSIVE AMINOTRANS /2021 Comment: Can cellation reported to: Rajni Giraldo RN on 06/24/22@2003 by el. Test result cancelled due to hemolysis interference in sample. [facility] FERASE Ordering Provi maria: JAYDE MENDOZA [ENZYMATIC Report Relea sed Date/Time: Jun 24, 2022 06:55 PM PANEL+MG ACTIVITY/V Reporting L ab: [facility] OLUME] IN [facility] [address] SERUM [place] Performing Lab : [facility] PL[facility]MA [address] [facility] [address] COMPREHE GLOMERULAR 58 60 06/24 L Specimen Typ e: PLASMA [place] NSIVE FILTRATION Comment: Can cellation reported to: Rajni Giraldo RN on 06/24/22 by el. Test result cancelled due to hemolysis interference in sample. [facility] [place] RATE/1.73 Ordering Pro vider: JAYDE MENDOZA SQ Report Released Date/Time: Jun 24, 2022 06:55 PM PANEL+MG M.PREDICTE Reporting L ab: [facility] D [VOLUME [facility] [address] RATE/AREA] Performing L ab: [facility] IN SERUM, [facility] [address] PLASMA OR BLOOD BY CREATININE -BASED FORMULA (CKD-EPI) CBC & LEUKOCYTES 9.67 4.0 - 11.0 [...] 2022 06:55 PM AUTOMATED Reporting Lab : [facility] [place] [address] Performing Lab: [facility] [place] [address] CBC & ERYTHROCYT 3.36 4.6 - 6.2 06/24 L Specimen Ty pe: BLOOD [place] DIFF ES /2021 Comment: Clumpe d Platelets. Invitro artefact. No clinical significance. Platelet count may be higher than stated value. Plt count = 214 K- cmm Manual Differential Performed IS [facility] [#/VOLUME] Ordering Pro vider: JAYDE MENDOZA IN BLOOD Report Release d Date/Time: Jun 24, 2022 06:55 PM BY Reporting Lab: [facility] AUTOMATED [address] [facility] [address] COUNT Performing Lab: [facility] [place] [address] CBC & HEMOGLOBIN 12.0 13.5 - / L Specimen Type : BLOOD [place] DIFF [MASS/VOLU 17.9 /2021 Comment: Clu mped Platelets. Invitro artefact. No clinical significance. Platelet count may be higher than stated value. Plt count = 214 K-cmm Manual Differential Performed IS [facility] ME] IN Ordering Provid er: JAYDE MENDOZA BLOOD Report Released Date/Time: Jun 24, 2022 06:55 PM Reporting Lab: [facility] [place] [address] Performing Lab: [facility] [place] [address] CBC & HEMATOCRIT 35.9 41 - 54 06/24 L Specimen Type : BLOOD [place] DIFF [VOLUME /2021 Comment: Clumpe d Platelets. Invitro artefact. No clinical significance. Platelet count may be higher than stated value. Plt count = 214 K-cmm Manual Differential Performed [facility] FRACTION] Ordering Prov ider: JYADE MENDOZA OF BLOOD Report Release d Date/Time: Jun 24, 2022 06:55 PM BY Reporting Lab: [facility] [place] [address] COUNT Performing Lab: [facility] [address] [place] [address] CBC & MCV 106.8 80 - 100 /08 H Specimen Type: BLOOD [place] DIFF [ENTITIC /2021 Comment: Clump ed Platelets. Invitro artefact. No clinical significance. Platelet count may be higher than stated value. Plt count = 214 K-cmm Manual Differential Performed [facility] VOLUME] BY Ordering Pro vider: JAYDE MENDOZA AUTOMATED Report Releas ed Date/Time: Jun 24, 2022 06:55 PM COUNT Reporting Lab: [facility] [address] [place] [place] [address] Performing Lab: [facility] [address] [place] [place] [address] CBC & MCH 35.7 27 - 33 [...] 24, 2022 06:55 PM COUNT Reporting Lab: [facility] [address] [place] [address] Performing Lab: [facility] [address] [place] [address] CBC & MCHC 33.4 32.0 - 06/24 Specimen Type: B LOOD [place] DIFF [MASS/VOLU 37.5 /2021 Comment: Clu mped Platelets. Invitro artefact. No clinical significance. Platelet count may be higher than stated value. Plt count = 214 K-cmm Manual Differential Performed [facility] ME] BY Ordering Provid er: JAYDE MENDOZA AUTOMATED Report Releas ed Date/Time: Jun 24, 2022 06:55 PM COUNT Reporting Lab: [facility] [address] [place] [place] [address] Performing Lab: [facility] [address] [place] [address] CBC & PLATELETS comment 06/24 Specimen Type: BLOOD [place] DIFF [#/VOLUME] /2021 Comment: Clu mped Platelets. Invitro artefact. No clinical significance. Platelet count may be higher than stated value. Plt count = 214 K-cmm Manual Differential Performed [facility] IN BLOOD Ordering Provi maria: JAYDE MENDOZA BY Report Released Date/Time: Jun 24, 2022 06:55 PM AUTOMATED Reporting Lab : [facility] [address] [place] [address] Performing Lab: [facility] [address] [place] [address] CBC & PLATELET canc 06/24 Specimen Type: BLOOD [place] DIFF /2021 Comment: Clumpe d Platelets. Invitro artefact. No clinical significance. Platelet count may be higher than stated value. Plt count = 214 K- cmm Manual Differential Performed [facility] VOLUME Ordering Provid er: JAYDE MENDOZA [ENTITIC Report Release d Date/Time: Jun 24, 2022 06:55 PM VOLUME] IN Reporting La b: [facility] [place]OD [place] [address] AUTOMATED Performing La b: [facility] [address] [place] [address] CBC & NEUTROPHIL 70.7 06/24 Specimen Type : BLOOD [place] DIFF S/100 /2021 Comment: Clumpe d Platelets. Invitro artefact. No clinical significance. Platelet count may be higher than stated value. Plt count = 214 K- cmm Manual Differential Performed [facility] LEUKOCYTES Ordering Pro vider: JAYDE MENDOZA IN BLOOD Report Release d Date/Time: Jun 24, 2022 06:55 PM BY MANUAL Reporting Lab : [facility] [address] [place] [address] Performing Lab: [facility] [address] [place] [address] CBC & LYMPHOCYTE 16.7 06/24 Specimen Type : BLOOD [place] DIFF S/100 /2021 Comment: Clumpe d Platelets. Invitro artefact. No clinical significance. Platelet count may be higher than stated value. Plt count = 214 K- cmm Manual Differential Performed [facility] LEUKOCYTES Ordering Pro vider: JAYDE MENDOZA IN BLOOD Report Release d Date/Time: Jun 24, 2022 06:55 PM BY MANUAL Reporting Lab : [facility] [address] [place] [address] Performing Lab: [facility] [address] [place] [address] CBC & ERYTHROCYT 14.0 11.5 - 06/24 [...] 06:55 PM [RATIO] BY Reporting La b: [facility] AUTOMATED [facility] [address] COUNT Performing Lab: [facility] [address] [facility] [address] CBC & MONOCYTES/ 9.6 06/24 Specimen Type : BLOOD [place] DIFF 100 Comment: Clumpe d Platelets. Invitro artefact. No clinical significance. Platelet count may be higher than stated value. Plt count = 214 K- cmm Manual Differential Performed [facility] LEUKOCYTES Ordering Pro vider: JAYDE MENDOZA W IN BLOOD Report Release d Date/Time: Jun 24, 2022 06:55 PM BY Reporting Lab: [facility] AUTOMATED [facility] [address] COUNT Performing Lab: [facility] [address] [facility] [address] CBC & EOSINOPHIL 1.5 06/24 Specimen Type : BLOOD [place] DIFF S/ Comment: Clumpe d Platelets. Invitro artefact. No clinical significance. Platelet count may be higher than stated value. Plt count = 214 K- cmm Manual Differential Performed [facility] LEUKOCYTES Ordering Pro vider: JAYDE MENDOZA W IN BLOOD Report Release d Date/Time: Jun 24, 2022 06:55 PM BY Reporting Lab: [facility] AUTOMATED [facility] [address] COUNT Performing Lab: [facility] [address] [facility] [address] CBC & METAMYELOC 1.0 06/24 Specimen Type [...] 06:55 PM BY MANUAL Reporting Lab : [facility] [address] [place] [address] Performing Lab: [facility] [address] [place] [address] CBC & MYELOCYTES 0.5 06/24 Specimen Type : BLOOD [place] DIFF /100 /2021 Comment: Clumpe d Platelets. Invitro artefact. No clinical significance. Platelet count may be higher than stated value. Plt count = 214 K- cmm Manual Differential Performed [facility] LEUKOCYTES Ordering Pro vider: JAYDE MENDOZA W IN BLOOD Report Release d Date/Time: Jun 24, 2022 06:55 PM BY MANUAL Reporting Lab : [facility] [place] [address] Performing Lab: [facility] [address] [place] [address] CBC & NORMOCHROM YES 06/24 Specimen Type [...] 2022 06:55 PM BY LIGHT Reporting Lab: [facility] MICROSCOPY [address] [facility] [address] Performing Lab: [facility] [place] [address] CBC & MACROCYTES SLIGHT 06/24 Specimen Type : BLOOD [place] DIFF [[place]] /2021 Comment: Clu mped Platelets. Invitro artefact. No clinical significance. Platelet count may be higher than stated value. Plt count = 214 K-cmm Manual Differential Performed [facility] IN BLOOD Ordering Provi maria: JAYDE MENDOZA W BY LIGHT Report Release d Date/Time: Jun 24, 2022 06:55 PM MICROSCOPY Reporting La b: [facility] [place] [address] Performing Lab: [facility] [address] [place] [address] CBC & LYMPHOCYTE 1.61 1.0 - 4.0 [...] 24, 2022 06:55 PM BY Reporting Lab: [facility] AUTOMATED [facility] [address] COUNT Performing Lab: [facility] [address] [facility] [address] CBC & MONOCYTES 0.93 0.1 - 1.0 [...] 2022 06:55 PM AUTOMATED Reporting Lab : [facility] [address] [facility] [address] Performing Lab: [facility] [address] [facility] [address] CBC & NEUTROPHIL 6.84 2.0 - 7.7 [...] 24, 2022 06:55 PM BY Reporting Lab: [facility] AUTOMATED [facility] [address] COUNT Performing Lab: [facility] [address] [facility] [address] CBC & EOSINOPHIL 0.15 0 - 0.5 [...] 24, 2022 06:55 PM BY Reporting Lab: [facility] AUTOMATED [facility] [address] COUNT Performing Lab: [facility] [address] [facility] [address] CBC & METAMYELOC 0.10 06/24 Specimen Type [...] 06:55 PM BY MANUAL Reporting Lab : [facility] [place] [address] Performing Lab: [facility] [place] [address] CBC & MYELOCYTES 0.05 06/24 Specimen Type : BLOOD [place] DIFF [#/VOLUME] /2021 Comment: Clu mped Platelets. Invitro artefact. No clinical significance. Platelet count may be higher than stated value. Plt count = 214 K-cmm Manual Differential Performed IS [facility] IN BLOOD Ordering Provi maria: JAYDE MENDOZA BY MANUAL Report Rele ed Date/Time: Jun 24, 2022 06:55 PM COUNT Reporting Lab: [facility] [place] [address] Performing Lab: [facility] [place] [address] CBC & PLATELETS canc 06/24 Specimen Type: BLOOD [place] DIFF RETICULATE /2021 Comment: Clu mped Platelets. Invitro artefact. No clinical significance. Platelet count may be higher than stated value. Plt count = 214 K-cmm Manual Differential Performed IS [facility] D/100 Ordering Provid er: JAYDE MENDOZA PLATELETS Report Releas ed Date/Time: Jun 24, 2022 06:55 PM IN BLOOD Reporting Lab: [facility] [place] [address] AUTOMATED Performing La b: [facility] [place] [address] CBC & ERYTHROCYT PRESENT 06/24 Specimen Type : BLOOD [place] DIFF E /2021 Comment: [place] d Platelets. Invitro artefact. No clinical significance. Platelet count may be higher than stated value. Plt count = 214 K- cmm Manual Differential Performed IS [facility] MORPHOLOGY Ordering Pro vider: JAYDE MENDOZA FINDING Report Released Date/Time: Jun 24, 2022 06:55 PM [IDENTIFIE Reporting La b: [facility] R] [place] [address] BLOOD Performing Lab: [facility] [address] [facility] [address] TSH THYROTROPI 3.03 0.35 - 05/15 Specimen Type : PLASMA [place] W/REFLEX N 4.94 /2021 No comment ente red. IS [facility] TO FREE [UNITS/VOL Ordering Pro vider: ROSY FAITH T4 UME] IN Report Released Date/Time: April 11, 2022 12:04 PM SERUM OR Reporting Lab: [facility] [address] [facility] [address] Performing Lab: [facility] [address] [facility] [address] COMPREHE CREATININE 1.2 0.7 - 1.2 05/15 Specimen T ype: PLASMA [place] NSIVE [MASS/VOLU /2021 No comment en tered. IS [facility] METABOLI ME] IN Ordering Provi maria: ROSY FAITH L C SERUM OR Report Release d Date/Time: April 11, 2022 12:04 PM PANEL+MG PLASMA Reporting Lab: [facility] [address] [facility] [address] Performing Lab: [facility] [address] [facility] [address] COMPREHE UREA 25 8 - 26 05/15 Specimen Type: PLASMA [place] NSIVE No comment ente red. IS [facility] METABOLI [MASS/VOLU Ordering Pr ovider: ROSY FAITH L C ME] IN Report Released Date/Time: April 11, 2022 12:04 PM PANEL+MG SERUM OR Reporting Lab : [facility] [address] [facility] [address] Performing Lab: [facility] [address] [facility] [address] COMPREHE GLUCOSE 105 74 - 100 05/15 H Specimen Type: PLASMA [place] NSIVE [MASS/VOLU /2021 No comment en tered. IS [facility] METABOLI ME] IN Ordering Provi maria: ROSY FAITH L C SERUM OR Report Release d Date/Time: April 11, 2022 12:04 PM PANEL+MG PLASMA Reporting Lab: [facility] [address] [facility] [address] Performing Lab: [facility] [address] [facility] [address] COMPREHE SODIUM 139 136 - 145 05/15 Specimen Type : PLASMA [place] NSIVE [MOLES/VOL /2021 No comment en tered. IS [facility] METABOLI UME] IN Ordering Provi maria: ROSY FAITH SERUM OR Report Release d Date/Time: April 11, 2022 12:04 PM PANEL+MG PLASMA Reporting Lab: [facility] [address] [facility] [address] Performing Lab: [facility] [address] [facility] [address] COMPREHE POTASSIUM 4.7 3.5 - 5.1 05/15 Specimen Ty pe: PLASMA [place] NSIVE [MOLES/VOL No comment en tered. IS [facility] METABOLI UME] IN Ordering Provi maria: ROSY FAITH SERUM OR Report Release d Date/Time: April 11, 2022 12:04 PM PANEL+MG PLASMA Reporting Lab: [facility] [address] [facility] [address] Performing Lab: [facility] [address] [facility] [address] COMPREHE CHLORIDE 104 98 - 107 05/15 Specimen Type : PLASMA [place] NSIVE [MOLES/VOL No comment en tered. IS [facility] METABOLI UME] IN Ordering Provi maria: ROSY FAITH SERUM OR Report Release d Date/Time: April 11, 2022 12:04 PM PANEL+MG PLASMA Reporting Lab: [facility] [address] [facility] [address] Performing Lab: [facility] [address] [facility] [address] COMPREHE CARBON 26 - 05/15 Specimen Type: PLASMA [place] NSIVE DIOXIDE, No comment ente red. IS [facility] METABOLI TOTAL Ordering Provi maria: ROSY FAITH [MOLES/VOL Report Relea sed Date/Time: April 11, 2022 12:04 PM PANEL+MG UME] IN Reporting Lab: [facility] SERUM OR [address] [facility] [address] PLASMA Performing Lab: [facility] [address] [facility] [address] COMPREHE CALCIUM 9.5 8.4 - 10.2 05/15 Specimen Typ e: PLASMA [place] NSIVE [MASS/VOLU /2021 No comment en tered. IS [facility] METABOLI ME] IN Ordering Provi maria: ROSY FAITH SERUM OR Report Release d Date/Time: April 11, 2022 12:04 PM PANEL+MG PLASMA Reporting Lab: [facility] [address] [facility] [address] Performing Lab: [facility] [address] [facility] [address] COMPREHE PROTEIN 7.2 6.0 - 8.3 05/15 Specimen Type : PLASMA [place] NSIVE [MASS/VOLU /2021 No comment en tered. [facility] [place] [facility] MET[facility]I ME] IN Ordering Provi maria: ROSY FAITH SERUM OR Report Release d Date/Time: April 11, 2022 12:04 PM PANEL+MG PLASMA Reporting Lab: [facility] [address] [facility] [address] Performing Lab: [facility] [address] [facility] [address] COMPREHE ALBUMIN 4.2 3.5 - 5.2 05/15 Specimen Type : PLASMA [place] NSIVE [MASS/VOLU /2021 No comment en tered. IS [facility] METABOLI ME] IN Ordering Provi maria: ROSY FAITH SERUM OR Report Release d Date/Time: April 11, 2022 12:04 PM PANEL+MG PLASMA Reporting Lab: [facility] [address] [facility] [address] Performing Lab: [facility] [address] [facility] [address] COMPREHE BILIRUBIN. 0.5 0.2 - 1.2 05/15 Specimen T ype: PLASMA [place] NSIVE TOTAL /2021 No comment enter ed. [place] [facility] [MASS/VOLU Ordering Pr ovider: ROSY FAITH ME] IN Report Released Date/Time: April 11, 2022 12:04 PM PANEL+MG SERUM OR Reporting Lab : [facility] [address] [facility] [address] Performing Lab: [facility] [address] [facility] [address] COMPREHE MAGNESIUM 1.8 1.6 - 2.6 05/15 Specimen Ty pe: PLASMA [place] NSIVE [MASS/VOLU /2021 No comment en tered. IS [facility] METABOLI ME] IN Ordering Provi maria: ROSY FAITH SERUM OR Report Release d Date/Time: April 11, 2022 12:04 PM PANEL+MG PLASMA Reporting Lab: [facility] [address] [facility] [address] Performing Lab: [facility] [address] [facility] [address] COMPREHE ANION GAP 9 5 - 15 05/15 Specimen Type : PLASMA [place] NSIVE IN SERUM /2021 No comment ente red. IS [facility] METABOLI OR PLASMA Ordering Pro vider: ROSY FAITH Report Released Date/Time: April 11, 2022 12:04 PM PANEL+MG Reporting Lab: [facility] [address] [facility] [address] Performing Lab: [facility] [address] [facility] [address] COMPREHE ALKALINE 55 40 - 150 05/15 Specimen Type : PLASMA [place] NSIVE PHOSPHATAS /2021 No comment en tered. IS [facility] METABOLI E Ordering Provi maria: ROSY FAITH [ENZYMATIC Report Relea sed Date/Time: April 11, 2022 12:04 PM PANEL+MG ACTIVITY/V Reporting L ab: [facility]] IN [facility] [address] SERUM OR Performing Lab : [facility] [address] [facility] [address] COMPREHE ALANINE 19 <55 - 55 05/15 Specimen Type: PLASMA [place] NSIVE AMINOTRANS /2021 No comment en tered. [place] [facility] FERASE Ordering Provi maria: ROSY FAITH [ENZYMATIC Report Relea sed Date/Time: April 11, 2022 12:04 PM PANEL+MG ACTIVITY/V Reporting L ab: [facility]] IN [facility] [address] SERUM OR Performing Lab : [facility] [address] [facility] [address] COMPREHE ASPARTATE 28 <34 - 34 05/15 Specimen Typ e: PLASMA [place] NSIVE AMINOTRANS /2021 No comment en tered. [place] [facility] FERASE Ordering Provi maria: ROSY FAITH [ENZYMATIC Report Relea sed Date/Time: April 11, 2022 12:04 PM PANEL+MG ACTIVITY/V Reporting L ab: [facility]] IN [facility] [address] SERUM OR Performing Lab : [facility] [address] [facility] [address] COMPREHE CREAT 63 60 05/15 Specimen Type: PLASMA [place] NSIVE EGFR(CKD- No comment en brennaed. IS [facility] METABOLI PI) Ordering Provi maria: ROSY FAITH Report Released Date/Time: April 11, 2022 12:04 PM PANEL+MG Reporting Lab: [facility] [address] [facility] [address] Performing Lab: [facility] [address] [facility] [address] Vital Signs Combined list of inpatient and outpatient Vital Signs from Department of Defense and Veterans Affairs, ranging from 12 months to all on record, depending upon the facility. Vital Sign Value Date Comments Source PAIN 6 06/26/2022 03:48:19 [place] [facility] SYSTOLIC BLOOD PRESSURE 132 06/25/2022 01:05:00 [facility] DIASTOLIC BLOOD PRESSURE 85 06/25/2022 01:05:00 [facility] PULSE OXIMETRY 94% 06/25/2022 01:05:00 [place] [facility] TEMPERATURE 98.2 06/25/2022 01:05:00 [place] [facility] PULSE 59 06/25/2022 01:05:00 [place] [facility] SYSTOLIC BLOOD PRESSURE 99 06/24/2022 18:00:00 [facility] DIASTOLIC BLOOD PRESSURE 64 06/24/2022 18:00:00 [facility] PAIN 8 06/24/2022 18:00:00 [place] [facility] TEMPERATURE 97.5 06/24/2022 18:00:00 [place] [facility] PULSE 69 06/24/2022 18:00:00 [place] [facility] RESPIRATION 15 06/24/2022 18:00:00 [place] [facility] SYSTOLIC BLOOD PRESSURE 120 05/15/2022 12:50:41 [facility] DIASTOLIC BLOOD PRESSURE 77 05/15/2022 12:50:41 [facility] PULSE OXIMETRY 94% 05/15/2022 12:50:41 [place] [facility] WEIGHT 123.9 05/15/2022 12:50:41 [place] [facility] BMI 23kg/m2 05/15/2022 12:50:41 [place] [facility] PAIN 0 05/15/2022 12:50:41 [place] [facility] [facility] HEIGHT 61.811 05/15/2022 12:50:41 [place] [facility] [facility] TEMPERATURE 99 05/15/2022 12:50:41 [place] [facility] [facility] PULSE 63 05/15/2022 12:50:41 [place] [facility] [facility] RESPIRATION 16 05/15/2022 12:50:41 [place] [facility] [facility] SYSTOLIC BLOOD PRESSURE 131 04/12/2022 08:13:02 [place] [facility] DIASTOLIC BLOOD PRESSURE 82 04/12/2022 08:13:02 [place] [facility] PULSE OXIMETRY 93% 04/12/2022 08:13:02 [place] [facility] [facility] WEIGHT 122.1 04/12/2022 08:13:02 [place] [facility] BMI 22kg/m2 04/12/2022 08:13:02 [place] [facility] [facility] PAIN 0 04/12/2022 08:13:02 [place] [facility] [facility] TEMPERATURE 98.5 04/12/2022 08:13:02 [place] [facility] [facility] PULSE 100 04/12/2022 08:13:02 [place] [facility] RESPIRATION 18 04/12/2022 08:13:02 [place] [facility] Encounters Combined list of: 1) Encounters from Department of Veterans Affairs facilities going back up to the last 18 months, not all VA inpatient encounters are included; 2) Encounters from the Department of Defense facilities going back up to 280 months. Location Location Encounter Encounter Reason Attending ADM DC Stat us Disposition Source Details Type Number For Provider Date Date Visit ADM 96356-9.61 Diagnos JODI ZAIDI 01/12 [place] SARSCOV2 [id number].[id number] is: NE [place] [facility] A 30MCG/0.3M 11 ICD-10- CBOC L 1ST CM Z23 Encount er for immuniz ation<b r/>with Provide r Comment s: Encount er for Immuniz ation OFFICE O/P 70238-6.61 Diagnos NANCY PERRY 01/12 [place] EST MOD [id number] is: RRY [facility] 30-39 MIN ICD-10- HCS CM M05.9 Rheumat oid arthrit is with rheumat oid factor, unspeci fied
with Provide r Comment s: Seropos itive Rheumat oid arthrit is ADM 01669-9 Diagnos JHONNY 01/31 [place] SARSCOV2 [id number] is: ,LAUREN /2021 [place] [facility] 30MCG/0.3M ICD-10- M HCS L 2ND CM Z23 Encount er for immuniz ation<b r/>with Provide r Comment s: Encount er for Immuniz ation Outpatient 44130-403/19 [place] [id number] [facility] OFF[facility]/P Diagnos [facility], 03/20 [place] EST MOD [id number] is: RRY [facility] [facility] 30-39 MIN ICD-10- HCS CM L40.50 Arthrop athic psorias is, unspeci fied
with Provide r Comment s: Psoriat ic arthrit is OFFICE O/P Diagnos [facility], 06/01 [place] EST MOD [id number] is: RRY A [facility] 30-39 MIN ICD-10- HCS CM M06.9 Rheumat oid arthrit is, unspeci fied
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
with Provide r Comment s: Seropos itive rheumat oid arthrit is ([facility] [id number] ) Outpatient 71355-1.61 06/19 [place] Encounter [id number] /2021 [facility] OFFICE O/P 54582-8.61 Diagnos SCHEBARBIER,R 07/11 [place] EST MOD [id number] is: HAVEN [facility] 30-39 MIN ICD-10- HCS CM H25.13 Age-rel ated nuclear catarac t, bilater al
with Provide r Comment s: Age-rel ated nuclear catarac t, bilater al Outpatient 76100-7.61 07/31 [place] Encounter [id number] [facility] OFFICE O/P 00300-661 Diagnos [place],JE 09/28 [place] EST MOD [id number] is: RRY [facility] [facility] 30-39 MIN ICD-10- HCS CM M06.9 Rheumat oid arthrit is, unspeci fied
with Provide r Comment s: Seropos itive rheumat oid arthrit is ([facility] [id number] ) ADM 21985-2.61 Diagnos HUDLOW,TRISTON 09/28 [place] SAR[place]OV[place] [id number] is: ECCA [facility] 30MCG/0.3M ICD-10- HCS L BST CM Z23 Encount er for immuniz ation<b r/>with Provide r Comment s: Encount er for Immuniz ation Outpatient 71228-1.61 11/17 [place] Encounter [id number] /2022 [facility] Outpatient 77400-3.61 11/20 [place] En[place] [id number] [facility] Outpatient 29948-3.61 11/20 [place] Encounter [id number] [facility] Outpatient 61194-2.61 Yasmeen CHASE 11/20 [place] Encounter [id number] ERR [facility] Outpatient 48080-8.61 12/06 [place] Encounter [id number] /2021 [facility] EMERGENCY 36378-8.61 Diagnos 01/07 [place] DEPT VISIT [id number] is: /2021 [facility] ICD-10- HCS CM K02.9 Dental caries, unspeci fied
with Provide r Comment s: Dental Caries, unspeci fied OFFICE O/P 29506-1.61 Diagnos [place], 01/11 [place] EST MOD [id number] is: RRY A [facility] 30-39 MIN ICD-10- HCS CM M06.9 Rheumat oid arthrit is, unspeci fied
with Provide r Comment s: Seropos itive rheumat oid arthrit is ([facility] [id number] 05) Outpatient 45700-3.61 04/ [place] En[place] [id number] /2021 [facility] Outpatient 36475-6.61 CHRISTLE,T 02/17 [place] En[place] [id number] ERRY [facility] Outpatient 42964-2.61 CHRISTLE,T 02/18 [place] En[place] [id number] ERRY [facility] Outpatient 58580-5.61 02/21 [place] Encounter [id number] /2021 [facility] Outpatient 60589-5.61 04 [place] En[place] [id number] /2021 [facility] OFFICE O/P 49680-2.61 Diagnos LEON03/05 [place] EST LOW [id number] is: [facility] 20-29 MIN ICD-10- HCS CM I47.1 Suprave ntricul ar tachyca rdia
with Provide r Comment s: Multifo sergio atrial tachyca rdia (SNOMED CT 1981762 0) ECG 31918-4.61 Diagnos LEON,03/12 [place] MONIT/REPR [id number] is: [facility] T UP TO 48 ICD-10- HCS HRS CM Z13.6 Encount er for screeni ng for cardiov ascular disorde rs
with Provide r Comment s: Encount er for Screeni ng for Cardiov ascular Disorde rs Outpatient 96038-5 05/ [place] Encounter [id number] /2021 [facility] [place] 15692-003/19 [place] Encounter [id number] /2021 [facility] Outpatient 77249-6.61 Yasmeen CHASE 03/19 [place] Encounter [id number] ERRY /2021 [facility] [place] 05476-4 05/10 [place] Encounter [id number] /2021 [facility] [place] 98194-8 05/ [place] Encounter [id number] /2021 [facility] [place] 92965-9 05/ [place] Encounter [id number] /2021 [facility] HCS EXT 54659-6.61 Diagnos KIKIBRADL 04/04 [place] ECG>7D<15D [id number] is: EY A [facility] RECORDING ICD-10- HCS CM I48.92 Unspeci fied atrial flutter
Provide r Comment s: Unspeci fied Atrial Flutter Outpatient 04/04 [place] Encounter [id number] /2021 [facility] HCS ELECTROCAR 77201-3 Diagnos AGUILAR,SE 04/10 [place] DIOGRAM [id number] is: LMA D [facility] COMPLETE ICD-10- HCS CM Z13.6 Encount er for screeni ng for cardiov ascular disorde rs
with Provide r Comment s: Encount er for Screeni ng for Cardiov ascular Disorde rs OFFICE Diagnos AB MARCELL 04/10 [place] CONSULTATI [id number] is: BIE L [facility] ON ICD-10- HCS CM I47.1 Suprave ntricul ar tachyca rdia
with Provide r Comment s: Multifo sergio atrial tachyca rdia (SCT 0881059 0) Outpatient 41585-604/10 [place] Encounter [id number] /2021 [facility] OFF[facility]P 22607-5 Diagnos MARYELLEN LEON 04/12 [place] EST SF [id number] is: H /2021 [facility] 10-19 MIN ICD-10- HCS CM I48.0 Paroxys mal atrial fibrill ation<b r/>with Provide r Comment s: Paroxys mal atrial fibrill ation (SCT [id number] 02) [place] [address]-2 Diagnos ANKIT,MARCI 04/23 [place] DIG [id number] is: ISTIN Y /2021 [place] [facility] ASSMT&MGMT ICD-10- HCS 21+ CM 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 (curren t) use of anticoa gulants
wi Provide r Comment s: senior care (curren t) use of anticoa gulants QNHP OL Diagnos MARCI PHAM 04/24 [place] DIG [id number] is: ISTIN Y /2021 [facility] ASSMT&MGMT ICD-10- HCS 11-20 CM 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 (curren t) use of anticoa gulants
wi Provide r Comment s: buttermaker continuous churn (curren t) use of anticoa gulants [place] PRO 48372-5 Diagnos PATRICE ARCOS 05/01 [place] PHONE CALL [id number] is: NA P /2021 [facility] 11-20 MIN ICD-10- HCS CM Z71.89 Other specifi ed chemical dependency counselor ing<br/ >with Provide r Comment s: Other specifi ed Animal Nutrition Consultant ing Outpatient 62582-905/03 [place] Encounter [id number] /2021 [facility] 22469-905/03 [place] En[place] [id number] /2021 [facility] COLONOSCOP 08643-6 Diagnos SANTO THAO 05/07 [place] Y AND [id number] is: VINCE R /2021 [place] [facility] BIOPSY ICD-10- HCS CM K64.8 Other hemorrh oids
with Provide r Comment s: Other Hemorrh oids Outpatient 41509-5 05/07 [place] Encounter [id number] /2021 [facility] Outpatient 25099-2 MAYELA MEDEL 05/08 [place] Encounter [id number] Z L [facility] Outpatient 27557-361 05/09 [place] Encounter [id number] /2021 [facility] Outpatient 11313-305/15 [place] Encounter [id number] [facility] Outpatient 81150-205/15 [place] Encounter [id number] /2021 [facility] ELECTROCAR 02544-6 Diagnos CHARLES LOZOYAO 05/15 [place] DIOGRAM [id number] is: REL [facility] COMPLETE ICD-10- HCS CM Z13.6 Encount er for screeni ng for cardiov ascular disorde rs
with Provide r Comment s: Encount er for Screeni ng for Cardiov ascular Disorde rs HEMOGLOBIN 89380-6.61 Diagnos ILIANA, 05/15 [place] [id number] is: OBI K /2021 [facility] ICD-10- HCS CM I48.0 Paroxys mal atrial fibrill ation<b r/>with Provide r Comment s: Paroxys mal atrial fibrill ation ([facility] 1163021 02) OFFICE O/P 57504-3 Diagnos MARCELL,AB 05/15 [place] EST MOD [id number] is: BIE L [facility] 30-39 MIN ICD-10- HCS CM I47.1 Suprave ntricul ar tachyca rdia
with Provide r Comment s: Multifo sergio atrial tachyca rdia (SCT 6713651 0) Outpatient 83992-3 ZYOLATLUIS A 06/01 [place] En[place] [id number] ERICKSON RODRIGUEZ /2021 [place] [facility] Outpatient 60195-2 SA VU 06/19 [place] Encounter [id number] RA R /2021 [facility] Outpatient 40617-2.06/21 [place] Encounter [id number] [facility] Outpatient 93235-7.61 SYSTEM,CIS 06/24 [place] Encounter [id number] -[facility] Outpatient 67915-9.61 SYSTEM,CIS 06/24 [place] Encounter [id number] -AR [facility] EMERGENCY 76017-2.61 Diagnos STANISLAW MENDOZA 06/24 [place] DEPT VISIT [id number] is: D W [facility] ICD-10- HCS CM R62.7 Adult failure to thrive< br/>wit h Provide r Comment s: Adult Failure to Thrive Outpatient 18420-6.61 06/24 [place] Encounter [id number] /2021 [facility] Inpatient 34704-3.61 Admit LISA HILLS 06/24 06/26 [place] Encounter [id number] Reason: SEIN ISSAK /2021 [facility] REC [facility]<b r/> Inpatient 26219-0.61 SYSTEM,CIS 06/24 06/24 [place] Encounter [id number] -[place] /[facility] Inpatient 63555-0.61 SYSTEM,CIS 06/25 06/25 [place] Encounter [id number] -ARK /20[facility] Inpatient 64819-4.61 06/25 06/25 [place] Encounter [id number] /2021 [facility] Inpatient 61271-3.61 06/25 06/25 [place] Encounter [id number] /2021 [facility] Inpatient 36624-6.61 SYSTEM,CIS 06/25 06/25 [place] Encounter [id number] -ARK /20[facility] Inpatient 95057-0.61 06/25 06/25 [place] Encounter [id number] /2021 [facility] [place] [place] [address]-2.61 Diagnos ALFREDO MCDANIEL 06/25 06/25 [place] 30 MINUTES [id number] is: VIA G /2021 [facility] ICD-10- HCS CM F10.20 Alcohol depende nce, uncompl icated< br/>wit h Provide r Comment s: Alcohol depende nce, uncompl icated PT EVAL 49918-0.61 Diagnos WHITLEYGENTRY 06/25 06/25 [place] MOD [id number] is: TIN W /2021 [facility] COMPLEX 30 ICD-10- HCS MIN CM Z74.09 Other reduced mobilit y
w ith Provide r Comment s: Reduced Mobilit y Inpatient 08410-4.61 06/25 [place] Encounter [id number] /2021 [facility] Inpatient 05677-0.61 06/25 06/25 [place] Encounter [id number] /2021 [facility] Inpatient 89177-0.61 06/25 06/25 [place] Encounter [id number] /2021 [facility] OT EVAL 15564-4.61 Diagnos RICARDO TONG 06/25 06/25 [place] LOW [id number] is: TTHEW /2021 [facility] 30 ICD-10- [facility] MIN CM Z73.6 Limitat ion of activit ies due to disabil ity<br/ >with Provide r Comment s: Limitat ion of activit ies due to disabil ity Inpatient 04739-9.61 06/25 06/25 [place] Encounter [id number] /2021 [facility] Inpatient 35420-1.61 06/26 06/26 [place] Encounter [id number] /2021 [facility] Inpatient 32454-9.61 SYSTEM,CIS 06/26 06/26 [place] Encounter [id number] -[place] /2021 [facility] Inpatient 48789-9.61 06/26 06/26 [place] Encounter [id number] /2021 [facility] CASE 88845-7.61 Diagnos [place] 06/26 06/26 [place] MANAGEMENT [id number] is: ,EDWARDO L /2021 [facility] ICD-10- HCS CM Z71.89 Other specifi ed chemical dependency counselor ing<br/ >with Provide r Comment s: Other specifi ed Animal Nutrition Consultant ing Inpatient 68063-2.61 06/26 06/26 [place] Encounter [id number] /2021 [facility] Inpatient 61868-7.61 06/26 [place] Encounter [id number] /2021 [facility] SELF CARE 10794-0.61 Diagnos RICARDO TONG 06/26 06/26 [place] MNGMENT [id number] is: TTHEW /2021 [facility] ICD-10- [facility] HCS CM Z73.6 Limitat ion of activit ies due to disabil ity<br/ >with Provide r Comment s: Limitat ion of activit ies due to disabil ity Outpatient 12881-9.61 06/27 [place] Encounter [id number] /2021 [facility] HC PRO 34014-0.61 Diagnos RICARDO HOU 06/28 [place] PHONE CALL [id number] is: TTHEW S [facility] 11-20 MIN ICD-10- HCS CM 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 (curren t) use of anticoa gulants
wi th Provide r Comment s: buttermaker continuous churn (curren t) use of anticoa gulants Outpatient [id number] 06/28 [place] Encounter [id number] /2021 [facility] OFFICE O/P [id number] Diagnos FRED THORNE 06/28 [place] EST [id number] is: E [facility] ICD-10- HCS PROB CM Z71.89 Other specifi ed chemical dependency counselor ing<br/ >with Provide r Comment s: Specifi ed chemical dependency counselor ing, not listed elsewhe re Outpatient [id number] 07/02 [place] Encounter [id number] /2021 [facility] Social History Combined list of available smoking, tobacco, and other social history from [facility] facilities. Social History Type Response Date Comment Source Tobacco smoking VA-TOBACCO FORMER USER 03/05/2022 [place] [facility] status NHIS History of tobacco VA-TOBACCO QUIT 1 TO < 03/05/2022 [facility] use 5 YRS History of tobacco [place]-TO[place]ACCO NEVER USED 06/01/2021 [facility] use History of tobacco [place]-TOBACCO FORMER USER 12/31/2019 [facility] use History of tobacco [place]-TO[place]ACCO FORMER USER 03/23/2019 [facility] use History of tobacco CURRENT TOBACCO USER 06/10/2018 [facility] use History of tobacco INPT TOBACCO COUNSELING 05/10/2018 [facility] use History of tobacco FORMER TOBACCO USE <1Y 08/29/2017 [facility] use History of tobacco INPT TOBACCO COUNSELING 05/26/2017 [facility] use History of tobacco INPT TOBACCO COUNSELING 05/03/2017 [facility] use History of tobacco FORMER TOBACCO USE <1Y 09/18/2016 [facility] use History of tobacco INPT TOBACCO USE - PT 08/10/2016 [facility] use REFUSED History of tobacco INPT TOBACCO COUNSELING 08/01/2016 [facility] use History of tobacco CURRENT TOBACCO USER 02/08/2015 [facility] use History of tobacco CURRENT TOBACCO USER 11/29/2013 [facility] use History of tobacco PATIENT IS TOBACCO USER 11/26/2013 [facility] use History of tobacco CURRENT TOBACCO USER 11/27/2012 [facility] use History of tobacco CURRENT TOBACCO USER 12/27/2011 [facility] use History of tobacco CURRENT TOBACCO USER 01/22/2011 [facility] use History of tobacco CURRENT TOBACCO USER 03/13/2010 [facility] use Plan of Care List of future care activities from [facility] facilities. Additional future care activities may be listed in the Assessment and Plan section. Date/Time Care Activity Care Activity Detail Facility 07/12/2022 AMBULATORY - SURGERY AMBULATORY - SURGERY [facility] Advance Directives List of completed, amended, or rescinded Advance Directives on record at [facility] facilities. An actual copy of the Directive is not included. Date Advance Directive Provider Source 02/25/2018 ADVANCE DIRECTIVE [facility] 02/24/2018 ADVANCE DIRECTIVE DISCUSSION [facility] 05/26/2017 CLINICAL WARNING MAGO CONTRERAS [facility] 05/03/2017 CLINICAL WARNING SARIAH ENGLE [facility] 08/10/2016 CLINICAL WARNING ISABEL BARCENAS [facility] 08/02/2016 CLINICAL WARNING [facility] HCS
--- OUTSIDE RECORDS SUMMARY | 2022-07-04 09:13 | XMS_ITS | Encounter Summary ---
:1950 Author Organization [facility] Address [address] [place] [id number] Support Name Relationship Address Phone MADELIN MANTILLA Unavailable [address] [phone] [place] [address] MADELIN MANTILLA Unavailable [address] [phone] [place] [address] DHAVAL MANTILLA Unavailable [address] [place] [address] Insurance Providers: All historical and current Section [...] MEDICARE MEDICARE PART Jul 18, PART B [id number] ANNALEE BUSTILLO (WNR) (M) B 2014A [phone] ,[place] PART Apr 17, PART A [id number] ANNALEE BUSTILLO (WNR) (M) A [id number] [phone] ,[place] Selected Encounter This section includes the information on record at [place] for the Encounter. Date/Time Encounter Type Encounter Reason Provider Source Description Jun 25, 2022 PSYTX W PT 30 MENTAL HEALTH ICD-10-CM F10.20 RUT MCDANIEL 10:00 [facility] - [facility] Alcohol G dependence, uncomplicated with Provider Comments: Alcohol dependence, uncomplicated IHE Encounter Template Text not used by [facility] Assessments - Encounter Diagnoses This section includes the primary and secondary diagnoses documented for the Encounter. Date/Time Primary/Secondary Diagnosis Name Provider Source Diagnosis Jun 25, 2022 PRIMARY Alcohol QUITA MCDANIEL [facility] 10:38 AM dependence, G HCS uncomplicated Plan of Treatment: Future Appointments (+ 6 months) and Future Tests (+/- 45 days) The Plan of Treatment section includes future care activities for the patient from [facility] [place] [facility]. This section includes future appointments and future orders which are active, pending orscheduled.Future Appointments This section includes appointments that were scheduled to occur 6 months from the date of the Encounter, up to a maximum of 20 appointments. The data comes from all [place] treatment [facility]. Appointment Date/Time Appointment Type Appointment Facili ty Name Jul 12, 2022 09:20 AM AMBULATORY - SURGERY [facility] S Jul 19, 2022 07:00 AM AMBULATORY - NONE [facility] Jul 19, 2022 08:00 AM AMBULATORY - MEDICINE [facility] Jul 19, 2022 09:00 AM AMBULATORY - MEDICINE [facility] Jul 25, 2022 09:00 AM AMBULATORY - NONE [facility] Jul 25, 2022 10:30 AM AMBULATORY - NONE [facility] Jul 25, 2022 11:00 AM AMBULATORY - SURGERY [facility] S Jul 25, 2022 12:30 PM AMBULATORY - NONE [facility] Aug 05, 2022 11:00 AM AMBULATORY - NONE [facility] Nov 20, 2022 10:30 AM AMBULATORY - MEDICINE [facility] Nov 20, 2022 11:00 AM AMBULATORY - MEDICINE [facility] Nov 20, 2022 11:30 AM AMBULATORY - MEDICINE [facility] Active, Pending, and Scheduled Orders This section includes a listing of several types of active, pending, and scheduled orders, including clinic medications orders, diagnostic test orders, procedure orders and consult orders; where the start date of the order is 45 days before the date of the Encounter or 45 days after the date of the Encounter. The data comes from all [facility]. Test Date/Time Test Type Test Details Facility Name May 15, 2022 12:00 Laboratory - COVID-19 AND FLU/RSV DIAG MIN [facility] AM Chemistry Order PANEL(CEPHEID) NASOPHARYNGEAL SWAB STAT WC ONCE Jun 24, 2022 06:55 Laboratory - EXTRA BLUE TUBE PLASMA WC MIN [facility] PM Chemistry Order Jun 24, 2022 06:55 Laboratory - EXTRA GOLD GEL TUBE SERUM MIN [facility] PM Chemistry Order WC Jun 24, 2022 06:55 Laboratory - EXTRA MINT TUBE PLASMA WC MIN [facility] PM Chemistry Order Jun 24, 2022 06:55 Laboratory - EXTRA PURPLE TUBE BLOOD [facility] PM Chemistry Order WC Jun 28, 2022 04:57 Consult Order NEUROSURGERY OUTPT Cons LAWSON ADAME [facility] PM Payroll And Benefits Coordinator's Choice Jun 28, 2022 05:00 Consult Order UROLOGY OUTPT Cons ZEINAB Merlos [facility] PM Payroll And Benefits Coordinator's Choice Jul 10, 2022 12:00 Laboratory - RHEUMATOLOGY CHEM PANEL [facility] AM Chemistry Order PLASMA SP ONCE Jul 10, 2022 12:00 Laboratory - RHEUMATOLOGY HEME PANEL [facility] AM Chemistry Order BLOOD SP ONCE Jul 25, 2022 10:30 Imaging - General CERVICAL SPINE 4 OR 5 [facility] AM Radiology Order VIEWS Lab Results: +/- 30 days of the [...] Range Comment Jun 24, 2022 09:29 PM [facility] URINALYSIS Specim en Type: URINE No comment enter ed. Ordering Provid er: JAYDE MENDOZA Report Released Date/Time: Jun 24, 2022 06:55 PM Reporting Lab: [facility] [id number] Performing Lab: [facility] [phone] URINE COLOR YELLOW SPECIFIC GRAVITY 1.039 H [...] 25 NEGATIVE Jun 24, 2022 08:24 PM [facility] POTASSIUM Specim en Type: PLASMA No comment enter ed. Ordering Provid er: JAYDE MENDOZA Report Released Date/Time: Jun 24, 2022 08:09 PM Reporting Lab: [facility] [address] [facility] [address] Performing Lab: [facility] [address] POTASSIUM 4.9 3.5-5.1 Jun 24, 2022 08:24 PM [facility] PROTEIN,TOTAL Specim en Type: PLASMA No comment enter ed. Ordering Provid er: JAYDE MENDOZA Report Released Date/Time: Jun 24, 2022 08:09 PM Reporting Lab: [facility] [address] [facility] [address] Performing Lab: [facility] [address] [facility] [address] PROTEIN,TOTAL 6.8 6.0-8.3 Jun 24, 2022 08:24 PM [facility] AST/SGOT Specim en Type: PLASMA No comment enter ed. Ordering Provid er: JAYDE MENDOZA Report Released Date/Time: Jun 24, 2022 08:09 PM Reporting Lab: [facility] [address] [facility] [address] Performing Lab: [facility] [facility] [address] AST/SGOT 19 <34 Jun 24, 2022 07:40 [facility] PROTHROMBIN TIME/INR Spec imen Type: PLASMA PM No comment enter ed. Ordering Provid er: JAYDE MENDOZA Report Released Date/Time: Jun 24, 2022 06:55 PM Reporting Lab: [facility] [address] [facility] [address] Performing Lab: [facility] [address] [facility] [address] .INR 1.1 0.8-1.1 .PT 12.1 9.4-12.5 Jun 24, 2022 07:32 [facility] COVID-19 DIAGNOSTIC Speci men Type: NASOPHARYNGEAL PM PANEL (CEPHEID) Comment: Cephei michael GeneXpert (618) Ordering Provid er: JAYDE MENDOZA Report Released Date/Time: Jun 24, 2022 06:55 PM Reporting Lab: [facility] [address] [facility] [address] Performing Lab: [facility] [address] [facility] [address] COVID-19 (CEPHEID) Not Detected Not Dete cted Jun 24, 2022 [facility] COMPREHENSIVE METABOLIC Spec imen Type: PLASMA 07:29 PM PANEL+MG Comment: Cancel lation reported to: Rajni Giraldo RN on 06/24/22@2004 by [place]. Test result cancelled due to hemolysis interference in sample. Ordering Provid er: JAYDE MENDOZA Report Released Date/Time: Jun 24, 2022 06:55 PM Reporting Lab: [facility] [address] Performing Lab: [facility] [address] CREATININE 1.3 H 0.7-1.2 UREA NITROGEN 19 [...] L >60 Jun 24, 2022 07:29 PM [facility] CBC & DIFF Specim en Type: BLOOD Comment: [place] d Platelets. Invitro artefact. No clinical significance. Platelet count may be higher than stated value. Plt count = 214 K-cmm Manual Differential Performed Ordering Provid er: JAYDE MENDOZA Report Released Date/Time: Jun 24, 2022 06:55 PM Reporting Lab: [facility] [address] Performing Lab: [facility] [phone] WBC 9.67 4.0-11.0 RBC 3.36 L 4.6-6.2 [...] Source Pressure Rate Mass Index Jun 25, 98.4 F 58 127/70 18 /min 95 % 0 [place] 2021 11:52 /min mm[Hg] [facility] Jun 25, 98.0 F 59 103/65 19 /min 91 % 8 [place] 2021 05:23 /min mm[Hg] [facility] Jun 25, 98.3 F 58 110/70 18 /min 93 % 8 [place] 2021 04:41 /min mm[Hg] [facility] Jun 25, 5 [place] 2021 08:23 [facility] Jun 25, 99.4 F 73 115/71 16 /min 89 % [place] 2021 08:10 /min mm[Hg] [facility] Social History: Smoking Status (Most current) [...] took place. Date/Time Smoking Status/Tobacco Use Comment [facility] Mar 05, 2022 01:30 PM VA-TOBACCO QUIT 1 TO < 5 YRS [facility] Jun 01, 2021 02:00 PM VA-TOBACCO NEVER USED [facility] Dec 31, 2019 10:54 AM VA-TOBACCO FORMER USER MIN [facility] Dec 31, 2019 10:54 AM VA-TOBACCO QUIT < 1 YEAR M [facility] March 23, 2019 09:53 AM VA-TOBACCO FORMER USER MIN [facility] March 23, 2019 09:53 AM VA-TOBACCO QUIT < 1 YEAR M [facility] Jun 10, 2018 10:00 AM CURRENT TOBACCO USER [place] KRISTELLIS [facility] May 10, 2018 07:27 PM INPT TOBACCO COUNSEL[place] [facility] May 10, 2018 07:27 PM INPT TOBACCO USER CAROLYNO GERDA [facility] Aug 29, 2017 09:55 AM FORMER TOBACCO USE <1Y MIN [facility] May 26, 2017 10:51 PM INPT [place]ING [place] [facility] May 26, 2017 10:51 PM INPT TOBACCO USER LAWSONAPO LIS [facility] May 03, 2017 09:34 PM [facility] May 03, 2017 09:34 PM INPT TOBACCO USER LAWSONAPO GERDA [facility] Sep 18, 2016 01:36 PM FORMER TOBACCO USE <1Y MIN [facility] Aug 10, 2016 03:54 PM INPT TOBACCO USE - PT REFUSED [facility] Aug 01, 2016 06:48 PM [facility] Aug 01, 2016 06:48 PM INPT TOBACCO USER CAROLYNO GERDA [facility] Feb 08, 2015 09:57 AM CURRENT TOBACCO USER LAWSON HUMPHRIESChelita [facility] Nov 29, 2013 10:37 AM [facility] Nov 26, 2013 11:09 AM PATIENT IS TOBACCO USER ANAID EPPSPOLDAVID [facility] Nov 27, 2012 12:12 PM CURRENT TOBACCO USER [facility] KRISTELS [facility] Dec 27, 2011 09:44 AM CURRENT TOBACCO USER LAWSON HUMPHRIESChelita [facility] Jan 22, 2011 02:38 PM CURRENT TOBACCO USER LAWSON HUMPHRIESChelita [facility] Mar 13, 2010 12:48 PM CURRENT TOBACCO US[facility] Advance Directives: All historical and current [...] Feb 25, 2018 ADVANCE DIRECTIVE AURORA MORALES [facility] Feb 24, 2018 ADVANCE DIRECTIVE DISCUSSION AURORA MORALES [facility] May 26, 2017 CLINICAL WARNING MAGO CONTRERAS [facility] May 03, 2017 CLINICAL WARNING SARIAH ENGLE [facility] Aug 10, 2016 CLINICAL WARNING ISABEL BARCENAS [facility] Aug 02, 2016 CLINICAL WARNING [facility] ALMAZAN [facility] Encounter Notes: All associated encounter notes This section contains the clinical notes associated to the Encounter. Date/Time Encounter Note(s) Provider Source Jun 25, 2022 10:00 AM MENTAL HEALTH CONSULT: QUITA MCDANIEL NELLIE [facility] LOCAL TITLE: ADS AUDC BRIEF INTERVENTION CONSUL T STANDARD TITLE: MENTAL HEALTH CONSULT DATE OF NOTE: JUN 25, 2022@10:00 ENTRY DATE: JUN 25, 2022@10:36:28 AUTHOR: QUITA MCDANIEL EXP COSIGNER: URGENCY: STATUS: COMPLETED SUMMARY: Migratory Farm Hand met with in [facility] hospital room in 2L in response to the inpatient ARS consult placed by Jah Fuentes MD, to interview patient to assess motivation for cessation of substance use. Migratory Farm Hand introduced herself, provided with an ARS brochure and junior copywriter's [employer] ss card, and discussed the purpose of the consult. was agreeable to talking. Mr. Sara OlsenLipmiguel morris is a 72-year-old, , 20% SC, male with PMH significant for CAD s/p stent x 3 (pro x LCX, distal LCX, OM2) in 07/2016, alcohol use disorder, CKD, seropositive rheumatoid arthritis and pAfib on apixaban with recent mech anical fall in the setting of alcohol intoxication who was discharged from [facility] on 06/24[facility]2022 and presented to [facility] for assistance finding a TCU (see 'H&P History & Physical - Medicine' note entered on 06/24/2022). reported drinking ~1 pint of alc ohol every day (beer & liquor). He has been drinking on a daily bas is since adolescence. He first tired alcohol at the age of 10. He uses marijuana every hour of every day. Per CPRS, quit tobacco in 2018. [place] men tioned that his is an alcoholic. [place] did not report any prolonged periods of sobriety. He estimates that his longest period of sobriety was just recently for a coupl e of weeks when he was hospitalized at [facility]. He denie d any hx of SUSANA tx. Initially, denied having any reason/bren deana/motivation to change his alcohol use -- I don't have any problem [with drinking]. He denied an interest in SUSANA tx. Migratory Farm Hand utilized motivational interviewing (TX) strategies to increase insight, reduce ambivalence, and enhance mot ivation. eventually concluded that he would like to be done with drinking, noting his heal th could be at risk (e.g., increased risk of falls). Wr iter provided an overview of SUSANA tx services offered in ARS (e.g., medications for AUD, individual th erapy, group therapy, etc.). Migratory Farm Hand also discussed potential trauma-focused t x options (as briefly mentioned a hx of combat exposure and possible t rauma-related sx). [place] declined an interest in any SUSANA or MH tx at this time. He is reportedly confident that he can abstain independently. Wri ter positively reinforced his decision to quit drinking an d reminded him that SUSANA tx services are available to him if desired in the future. RISK ASSESSMENT ( not well known to write r; based on chart review): There was no mention or evidence of SI/HI/intent /plans during this consult. Risk Factors: substance use problems; mental hea lth sx/dx; trauma hx; medical issues/pain; demographics (gender, age, race, ve palma status) Protective Factors: supportive family; d enied SI in the [place] on 06/24/2022 Clinician Judgement of Risk ( not known t o junior copywriter; based on chart review): low acute & low chronic PLAN: - [place] is not interested in SUSANA/MH tx service s in ARS at this time. He was provided with an ARS brochure and junior copywriter's busin ess card should he change his mind. Brief Intervention: Does the patient drink above recommended limits ? Yes. Discussed with patient. Advised patient ab out recommended limits and to drink below them. Negative physical, emotional, and occupational consequences discussed with patient. Medical consequences: liver injury and hyperten agustín. Emotional consequences: relationship problems a nd depression. Occupational consequences: reduced work perform ance. CAGE: An alcohol screening test (CAGE) was positive ( score=2). 1. Have you ever felt you should cut down on yo ur drinking? Yes 2. Have people annoyed you by criticizing your drinking? Yes 3. Have you ever felt bad or guilty about your drinking? No 4. Have you ever had a drink first thing in the morning to steady your nerves or to get rid of a hangover (an eye open er)? No Discussion of severity of problem: (Score = 2, 3 or 4) Severity of problem as dete rmined by CAGE score is severe enough to indicate excessive drinking an d may even indicate an alcohol use disorder. Discussed with patient. Offer of Medications: Patient declines offer of learning more about m edications. Offer of referral to treatment program: Patient declines offer of learning more about t reatment programs. /mikal/ QUITA MCDANIEL,PhD, STAFF PSYCHOLOGIST Signed: 06/25/2022 12:29
--- OUTSIDE RECORDS SUMMARY | 2022-07-04 09:13 | XMS_ITS ---
HOSPITALIZATION [facility] Encounter Summary Created on:June 24, 2022 Patient:REGI MANTILLA Sex:Male :1950 [address] Department [facility] Address [address] [place] [address] Support Name Relationship Address Phone MADELIN MANTILLA Unavailable [phone] [place] [address] MADELIN MANTILLA Unavailable [phone] [place] [address] DHAVAL MANTILLA Unavailable [address] [place] [address] Insurance Providers: All historical and current Section [...] MEDICARE MEDICARE PART Jul 18, PART B [id number] ANNALEE BRYANIENT (WNR) (M) B 2014A [phone] ,REGI MEDICARE MEDICARE PART Apr 17, PART A [id number] ANNALEE Cardenas ATIENT (WNR) (M) A [id number] [phone] ,REGI Selected Encounter This section includes the information on record at [place] for the Encounter. Date/Time Encounter Type Encounter Description Reason Provider Source Jun 24, 2022 Inpatient Visit [facility] [place] [facility] 10:13 PM ISSAK IHE Encounter Template Text not used by [place] Assessments - Encounter Diagnoses This section includes the primary and secondary diagnoses documented for the Encounter. Date/Time Primary/Secondary Diagnosis Name Provider Source Diagnosis Jun 26, 2022 Diagnosis for Length of Unsp disp fx of Brianda RANDY [facility] 05:04 PM Stay fifth cervical vertebra, init for clos fx Plan of Treatment: Future Appointments (+ 6 months) and Future Tests (+/- 45 days) The Plan of Treatment section includes future care activities for the patient from all [place] [facility] This section includes future appointments and future orders which are active, pending orscheduled.Future Appointments This section includes appointments that were scheduled to occur 6 months from the date of the Encounter, up to a maximum of 20 appointments. The data comes from all [place] treatment facilities. Appointment Date/Time Appointment Type Appointment Facili ty Name Jul 12, 2022 09:20 AM AMBULATORY - SURGERY [facility] Jul 19, 2022 07:00 AM AMBULATORY - NONE [facility] Jul 19, 2022 08:00 AM AMBULATORY - MEDICINE [facility] Jul 19, 2022 09:00 AM AMBULATORY - MEDICINE [facility] Jul 25, 2022 09:00 AM AMBULATORY - NONE [facility] Jul 25, 2022 10:30 AM AMBULATORY - NONE [facility] Jul 25, 2022 11:00 AM AMBULATORY - SURGERY [facility] Jul 25, 2022 12:30 PM AMBULATORY - NONE [facility] Aug 05, 2022 11:00 AM AMBULATORY - NONE [facility] Nov 20, 2022 10:30 AM AMBULATORY - MEDICINE [facility] Nov 20, 2022 11:00 AM AMBULATORY - MEDICINE [facility] Nov 20, 2022 11:30 AM AMBULATORY - MEDICINE [facility] Active, Pending, and Scheduled Orders This section includes a listing of several types of active, pending, and scheduled orders, including clinic medications orders, diagnostic test orders, procedure orders and consult orders; where the start date of the order is 45 days before the date of the Encounter or 45 days after the date of the Encounter. The data comes from all [place] treatment [facility]. Test Date/Time Test Type Test Details Facility Name May 15, 2022 12:00 Laboratory - COVID-19 AND FLU/RSV DIAG [facility] AM Chemistry Order PANEL(CEPHEID) NASOPHARYNGEAL SWAB STAT WC ONCE Jun 24, 2022 06:55 Laboratory - EXTRA BLUE TUBE PLASMA WC [facility] PM Chemistry Order Jun 24, 2022 06:55 Laboratory - EXTRA GOLD GEL TUBE SERUM [facility] PM Chemistry Order WC Jun 24, 2022 06:55 Laboratory - EXTRA PURPLE TUBE BLOOD [facility] PM Chemistry Order WC Jun 24, 2022 06:55 Laboratory - EXTRA MINT TUBE PLASMA WC [facility] PM Chemistry Order Jun 28, 2022 04:57 Consult Order NEUROSURGERY OUTPT Cons [facility] PM Emergency Crew Supervisor's Choice Jun 28, 2022 05:00 Consult Order UROLOGY OUTPT Cons ZEINAB Merlos [facility] PM Emergency Crew Supervisor's Choice Jul 10, 2022 12:00 Laboratory - RHEUMATOLOGY CHEM PANEL [facility] AM Chemistry Order PLASMA SP ONCE Jul 10, 2022 12:00 Laboratory - RHEUMATOLOGY HEME PANEL [facility] AM Chemistry Order BLOOD SP ONCE Jul 25, 2022 10:30 Imaging - General CERVICAL SPINE 4 OR 5 [facility] AM Radiology Order VIEWS Lab Results: +/- 30 days of the encounter This section includes the Chemistry and Hematology Lab Results on record with [place] for the patient. Radiology Reports and Pathology Reports are provided separately, in subsequent sections.Lab Results This section contains the Chemistry/Hematology Results that were resulted 30 days before or 30 daysafter the date of the Encounter. Date/Time Source Result Type Result - Unit Interpretation Reference Range Comment Jun 24, 2022 09:29 PM [facility] URINALYSIS Specim en Type: URINE No comment enter ed. Ordering Provid er: JAYDE MENDOZA Report Released Date/Time: Jun 24, 2022 06:55 PM Reporting Lab: [facility] [address] [facility] [id number] Performing Lab: [facility] [id number] URINE COLOR YELLOW SPECIFIC GRAVITY 1.039 H [...] 25 NEGATIVE Jun 24, 2022 08:24 PM [facility] AST/SGOT Specim en Type: PLASMA No comment enter ed. Ordering Provid er: JAYDE MENDOZA Report Released Date/Time: Jun 24, 2022 08:09 PM Reporting Lab: [facility] [address] [facility] [address] Performing Lab: [facility] [address] [facility] [address] AST/SGOT 19 <34 Jun 24, 2022 08:24 PM [facility] POTASSIUM Specim en Type: PLASMA No comment enter ed. Ordering Provid er: JAYDE MENDOZA Report Released Date/Time: Jun 24, 2022 08:09 PM Reporting Lab: [facility] [address] [facility] [address] Performing Lab: [facility] [address] [facility] [address] POTASSIUM 4.9 3.5-5.1 Jun 24, 2022 08:24 PM [facility] PROTEIN,TOTAL Specim en Type: PLASMA No comment enter ed. Ordering Provid er: JAYDE MENDOZA Report Released Date/Time: Jun 24, 2022 08:09 PM Reporting Lab: [facility] [address] [facility] [address] Performing Lab: [facility] [address] [facility] [address] PROTEIN,TOTAL 6.8 6.0-8.3 Jun 24, 2022 07:40 [facility] PROTHROMBIN TIME/INR Spec imen Type: PLASMA PM No comment enter ed. Ordering Provid er: JAYDE MENDOZA Report Released Date/Time: Jun 24, 2022 06:55 PM Reporting Lab: [facility] [address] [facility] [address] Performing Lab: [facility] [address] [facility] [address] .INR 1.1 0.8-1.1 .PT 12.1 9.4-12.5 Jun 24, 2022 07:32 [facility] COVID-19 DIAGNOSTIC Speci men Type: NASOPHARYNGEAL PM PANEL (CEPHEID) Comment: Bryan rodriguez GeneXpert (618) Ordering Provid er: JAYDE MENDOZA Report Released Date/Time: Jun 24, 2022 06:55 PM Reporting Lab: [facility] [address] [facility] [address] Performing Lab: [facility] [address] [facility] [phone] COVID-19 (CEPHEID) Not Detected Not Dete cted Jun 24, 2022 [facility] COMPREHENSIVE METABOLIC Spec imen Type: PLASMA 07:29 PM PANEL+MG Comment: Cancel lation reported to: Rajni Giraldo RN on 06/24/22@2004 by Test result cancelled due to hemolysis interference in sample. Ordering Provid er: JAYDE MENDOZA Report Released Date/Time: Jun 24, 2022 06:55 PM Reporting Lab: [place] [address] Performing Lab: [facility] [id number] CREATININE 1.3 H 0.7-1.2 UREA NITROGEN 19 [...] L >60 Jun 24, 2022 07:29 PM [facility] CBC & DIFF Specim en Type: BLOOD Comment: [place] d Platelets. Invitro artefact. No clinical significance. Platelet count may be higher than stated value. Plt count = 214 K-cmm Manual Differential Performed Ordering Provid er: JAYDE MENDOZA Report Released Date/Time: Jun 24, 2022 06:55 PM Reporting Lab: [facility] [id number] Performing Lab: [facility] [address] WBC 9.67 4.0-11.0 RBC 3.36 L 4.6-6.2 [...] dy Source Pressure Rate Mass Index Jun 24, [facility] 2021 11:13 [place] PM [facility] Jun 24, [facility] 11:12 [place] [facility] Jun 24, 98.2 F 63 128/87 16 /min 92 % 8 62.0 in 116.0 21 [place] [facility] 2021 10:38 /min mm[Hg] lb [place] [facility] Jun 24, 97.5 F 69 99/64 15 /min 8 [facility] 2021 06:00 /min mm[Hg] [facility] Social History: Smoking Status (Most current) and Tobacco Use (All prior to encounter date) This section includes the most current, and the historical, smoking and tobacco-related health factors from the [place] facility where the Encounter took place.Current Smoking Status This section includes the most current smoking, or tobacco-related health factor, from the [place] facility where the Encounter took place. Date/Time Current Smoking Status Comment Facility Mar 05, 2022 01:30 PM VA-TOBACCO FORMER USER [facility] Tobacco Use History This section includes a history of the smoking, or tobacco- related health factors, that were collected on or before the date of the Encounter. The data comes from the [place] facility where the Encounter took place. Date/Time Smoking Status/Tobacco Use Comment [facility] Mar 05, 2022 01:30 PM VA-TOBACCO QUIT 1 TO < 5 YRS [facility] Jun 01, 2021 02:00 PM VA-TOBACCO NEVER USED [facility] Dec 31, 2019 10:54 AM VA-TOBACCO FORMER USER [facility] Dec 31, 2019 10:54 AM VA-TOBACCO QUIT < 1 YEAR [facility] March 23, 2019 09:53 AM VA-TOBACCO FORMER USER [facility] March 23, 2019 09:53 AM VA-TOBACCO QUIT < 1 YEAR [facility] Jun 10, 2018 10:00 AM CURRENT TOBACCO USER [place] [facility] May 10, 2018 07:27 PM INPT TOBACCO COUNSELING [facility] May 10, 2018 07:27 PM INPT TOBACCO USER GONZALES LORENZ [facility] Aug 29, 2017 09:55 AM FORMER TOBACCO USE <1Y [facility] May 26, 2017 10:51 PM INPT TOBACCO COUNSELING [place] [facility] May 26, 2017 10:51 PM INPT TOBACCO USER CAROLYNO GERDA [facility] May 03, 2017 09:34 PM INPT TOBACCO COUNSELING [place] [facility] May 03, 2017 09:34 PM INPT TOBACCO USER LAWSONAPO GERDA [facility] Sep 18, 2016 01:36 PM FORMER TOBACCO USE <1Y [facility] Aug 10, 2016 03:54 PM INPT TOBACCO USE - PT REFUSED [facility] Aug 01, 2016 06:48 PM INPT TOBACCO COUNSELING [facility] Aug 01, 2016 06:48 PM INPT TOBACCO USER CAROLYNO GERDA [facility] Feb 08, 2015 09:57 AM CURRENT TOBACCO USER LAWSON HUMPHRIESLIS [facility] Nov 29, 2013 10:37 AM [facility] Nov 26, 2013 11:09 AM PATIENT IS TOBACCO USER [facility] Nov 27, 2012 12:12 PM CURRENT TOBACCO USER LAWSON HUMPHRIESLIS [facility] Dec 27, 2011 09:44 AM CURRENT TOBACCO USER LAWSON HUMPHRIESS [facility] Jan 22, 2011 02:38 PM CURRENT [facility]ACCO USER [facility] Mar 13, 2010 12:48 PM CURRENT [facility]BACCO USER [facility] Advance Directives: All historical and current Section Date Range: From patient's date of to the date document was created. This section includes ALL of a patient's completed or amended [place] Advance and Rescinded Directives. The entries below indicate that a directive exists for the patient, but an actual copy is not included with this document. The data comes from all [place] facilities. Date Advance Directives Provider Source Feb 25, 2018 ADVANCE DIRECTIVE AURORA MORALES [facility] Feb 24, 2018 ADVANCE DIRECTIVE DISCUSSION A[facility]ORA MORALES [facility] May 26, 2017 CLINICAL WARNING MAGO CONTRERAS [facility] May 03, 2017 CLINICAL WARNING SARIAH ENGLE [facility] Aug 10, 2016 CLINICAL WARNING ISABEL BARCENAS [facility] Aug 02, 2016 CLINICAL WARNING AURORA ALMAZAN [facility] Encounter Notes: All associated encounter notes This section contains the clinical notes associated to the Encounter. Date/Time Encounter Note(s) Provider Source Jun 26, 2022 05:04 DISCHARGE SUMMARY: ANUPAMA HILL [facility] PM LOCAL TITLE: Discharge Summary STANDARD TITLE: DISCHARGE SUMMARY DICT DATE: JUN 26, 2022@14:31 ENTRY DATE: JUN 172021@14:32 DICTATED BY: ANUPAMA HILL ATTENDING: MARQUEZ CERRATO URGENCY: routine STATUS: COMPLETED Medicine Discharge Summary DRAFT UNTIL SIGNED BY ATTENDING MEDICINE DISCHARGE SUMMARY Date of Admission: 06/24/2022 Date of Discharge: 06/26/2022 PRIMARY DIAGNOSES # Desire for placement # Recent C5 pedical fracture in setting of mecha nical fall SECONDARY DIAGNOSES # Central cord syndrome # UTI # Acute urinary retention, suspect 2/2 cervical neck fractures # Indwelling castro catheter # Constipation # Internal hemorriods # Alcohol use disorder # CAD # Paroxysmal afib/aflutter # CKD # Seropositive RA BRIEF SUMMARY OF HISTORY OF PRESENT ILLNESS: See admission history and physical for [facility] r details Mr. Mantilla is a 68 year old MALE with PMH sig nificant for CAD s/p stent x 3 (prox LCX, distal LCX, OM2) in 07/2016, alcohol use disorder, CKD, seropositive rheumatoid arthritis and pAfib on apixaban with recent mech anical fall in the setting of alcohol intoxication who was discharged from [facility] on 06/24/2022 and presented to [facility] for assistance with finding pl acement. Patient progressed w/ PT and OT at [facility] and he was deemed safe to return home w/ family support. Patient and family wanted to pur jessi private pay TCU and/or home care while at [facility], but this was not an option due to lack of skilled need and availability. Patient was reass essed by PT and OT while at the [place]. PT recommended discharge home. OT recomm ended home OT. Hospital course complicated by patient removing his Castro catheter w/ balloon intact. Castro was replaced by RN without complication. Theresa calloway was discharged home in good condition w/ home health referral. HOSPITAL COURSE BY PROBLEM: # C5 pedical fracture # Central cord syndrome # Mechanical fall Per records from [facility], patient had an accidental fall from bed [...] cleared to return home w/ family support. - [place] x 3mo - Pain management: scheduled APAP, oxycodone PRN , gabapentin TID, lidocaine patch - PT recommended discharge home - OT recommended discharge home w/ outpatient OT - F/u w/ neurosurgery as outpatient # UTI # Acute urinary retention, suspect 2/2 cervical neck fractures # Indwelling castro catheter Discharge meds contains Keflex for 7 days course . Pt history that he has failed TOV but denies symtoms of dysuria or incr eased frequency. Castro replaced 06/22 with plans to leave in for 1 week w / home theater experience expert removal at home per [facility] discharge summary. - Continue PUBLIC HEALTH PROFESSOR Keflex - Continue PUBLIC HEALTH PROFESSOR tamsulosin - F/u w/ urology as outpatient # Constipation # Internal hemorriods Patient usually has daily BM. Became constipated during prior admission, likely 2/2 opioid use. Patient had BRBPR w/ stra ining during prior admission, although currently denies. Hgb near baseline. - Bowel regimen: scheduled docusate and Miralax, PRN tap water enema - Hemorrhoid cream # Alcohol use disorder Patient previously drank daily (1-3 beers, 2 ron ts of whisky). Last drink a couple of weeks ago. Patient states that he is i nterested in abstinence after his most recent fall. - ADS consulted - Patient is not interested in [facility]/MH tx servic es in [place] at this time MEDICATION CHANGES DURING THIS HOSPITALIZATION: For a list of Discharge Medications; see the no te titled ED Medication Instruction or Rx Inpatient Me dications at Discharge No new, discontinued, or changed medications. FOLLOW UP care plan by issue: Per [facility] discharge summary: - Specialists: [facility] (4 week s), urology - Home health nursing in 1 week for Castro shawneea l DISPOSITION ON DISCHARGE: Home CONDITION AT DISCHARGE: Good PERTINENT EXAM FINDINGS: General: Awake, Alert, Oriented X3, No apparent distress. C-collar in place. HEENT: EOMI. Healing scalp wounds. Cardio: Irregularly irregular. Regular rate. Lungs: Clear to auscultation bilaterally, no fuel efficient aircraft designer ckles, no wheezing, no increased WOB. Abd: Soft, non-tender, non-distended, +bowel makeda nds, no rebound, no guarding : Castro in place draining yellow urine. Extrem: No clubbing/cyanosis/edema, 2+ bilateral pulses. Neuro: Cranial Nerves II-XII grossly intact. 3/5 strength in bilateral upper extremities. 5/5 strength in bilateral lower ext remities. PERTINENT LABS & IMAGING: None PERTINENT SOCIAL ISSUES: Discussed discharge roe n w/ children (Jefry, Lila) 30 minutes was spent on discharge care coordinat ion for this patient. Patients plan was discussed with attending physi pawel Franz HOSPITAL ACQUIRED PNEUMONIA (HAP) HAP is defined as an inflammatory condition of t he lung parenchyma caused by infectious agents not present or incubating at the time of hospital admission; that is, conditions that develop mor e than 48 hours after admission. Did the patient develop a hospital acquired pneu monia this admission by meeting the following criteria? No /mikal/ ANUPAMA HILL Resident Signed: 06/26/2022 14:45 /es/ MARQUEZ FRANZ MD PHYSICIAN Cosigned: 06/26/2022 14:54 Jun 26, 2022 03:01 NURSING INPATIENT NOTE: AUBRIE SY I [facility] PM LOCAL TITLE: SARAH NURSING PROGRESS NOTE STANDARD TITLE: NURSING INPATIENT NOTE DATE OF NOTE: JUN 26, 2022@15:01 ENTRY DATE: JUN 26, 2022@15:01:46 AUTHOR: AUBRIE SY I EXP COSIGNER: URGENCY: STATUS: COMPLETED IMPORTANT PHONE NUMBERS: IF YOU HAVE A LIFE THREATENING EMERGENCY CALL [phone] If you have questions about anything related to your inpatient care at the [facility] or your future care in the [facility], call the Call Center or After Hour numbers list ed below. If you receive care at another [facility] facility or w ith a community provider, you will need to call them for questions about y our future care. -Call Center Friday-Friday, 7:30-4:30 at or Toll Free -After Hours- toll-free -Outpatient Pharmacy - -Verification of Appointments for the following month - *'S CRISIS LINE NUMBER IS (TALK)* Discharge from ICU, Acute Care, Acute Rehab, or CLC C-SSRS Screening [place] Suicide Severity Rating Scale (C-SSRS) screener 1. [...] or prepared to do anything to end you r life (for example, collected pills, obtained a gun, gave away valuables, went to the roof but didn't jump)? No 8. If YES, was this within the past 3 months? Response not required due to responses to other questions. Written education reviewed and given on: Alcoho l dependence, Falls Risk neck fracture. Other diagnosis/instructions: CKD While in the hospital you were treated for: CF fracture after mechanical fall You were evaluated by PT and OT who cleare d you to return home. You were hospitalized for possible need for rehab a fter this fall. You will follow up with specialists as outlined below. Primary Care Team: Primary Care Team: ORSANNA ANDREWS Primary Care Provider: MARYELLEN LEON No Associate Provider Assigned. Attending Physician: MARQUEZ FRANZ You are being discharged to: Home Phone number you can be contacted at for the ne xt 2 weeks: Your diet is regular Activity: You were identified as at risk for falling du ring your hospital stay. A copy of the Fall Prevention At Home won phlet was given to and reviewed with the patient. When you go home you will need: Treatments: Supplies: Dressing supplies: ABD pads Catheter supplies: Castro bag Leg bag Other: No new medications ordered Continuing care needs: If you receive care at [facility] [place] you will nee d to call the Primary Care Call Center number at [phone] . If you receive care at another [place] facility or [facility] provider, you will need to call them to arrange your follow u p care. Follow up not ordered at this time. Call the Call Center if problems occur at . Future appointments: 07/12/2022 09:20 [facility] OPHTHAL LI INHIT IENT APPOINTMENT 07/19/2022 08:00 [facility]/19/2022 09:00 ROSANNA PERRY MD 3D INPATI ENT APPOINTMENT 11/20/2022 10:30 [facility] 11/20/2022 11:00 [facility] 3D EKG INPATIENT APPOINTMENT 11/20/2022 11:30 [facility] CARDIAC EP [facility]CELL DODSON INHI TIENT APPOINTMENT You are being referred to these outside agencie s: Home health nurse for castro removal in one week and for medication man agement. IM - Immunizations Immunization Series Date Facility Reaction Info COVID-19 ([employer] MRNA, LNP-S, P* 3 09/28/2021 [place] 2 01/31/2021 [place] 1 01/12/2021 [place] COVID-19 ([employer]), MRNA, LNP-S, P* 4 03/05/2022 [place] INFLUENZA, HIGH DOSE SEASONAL 08/29/2017 [place] 11/03/2015 [place] INFLUENZA, INJECTABLE, QUADRIVALE* 09/28/2021 [place] 07/28/2020 [place] INFLUENZA, SEASONAL, INJECTABLE,* 08/26/2019 [place] 09/18/2018 [place] 08/01/2016 No Site 11/09/2014 [place] INFLUENZA, UNSPECIFIED FORMULATIO* 11/19/2013 [place] 11/27/2012 [place] PNEUMOCOCCAL CONJUGATE PCV 13 11/03/2015 [place] PNEUMOCOCCAL, UNSPECIFIED FORMULA* 01/11/2014 [place] TDAP 03/13/2010 [place] ZOSTER LIVE 11/27/2012 [place] ZOSTER RECOMBINANT 2 03/23/2019 [place] 1 12/15/2018 [place] Copy of PROVIDERS DISCHARGE ORDERS Discharge Order Discharge Date: Jun Discharged to: Home Discharge Type: Hospital Discharge Provider Completing Summary: Anupama Hill Attending Physician: Marquez Franz Discharge Diagnosis: C5 fracture s/p mechanical fall, urinary retention. Discharge Condition: Good Discharge Instructions: You were hospitalized f or possible need for rehab after C5 fracture after mechanical fall. You were evaluated by PT and OT who cleared you to return home. You will follow up with specialists as outlined below: OUTPATIENT FOLLOW UP - Specialists: [facility] Neurosurgery (4 [address] torres), urology - Discharge summary instructions regarding C5 f racture and central cord syndrome: - Upright cervical XR in 4 weeks - No lifting > 10 lbs - Continue to wear neck brace at all times - Home health nursing in 1 week for Castro remov al and medication management. Discharge Order Weight Bearing Restriction: Yes, no lifting >10 lbs Bathing Restriction: No, Activity Restriction: Yes, C collar on at all t imes Diet: Regular NSAID/Aspirin Restriction (MED/Date to Resume): NA Wound Condition: N/A Oxygen Needed for Transport? No Special Transportation Needs: None Patient and/or other caregiver has had an oppor tunity to participate in the development of the discharge plan. The zahra ent had an opportunity to ask questions. Education regarding Castro c are, cleaning at home and leg/bag changes given. Pt demonstrated and voiced understaning. Written pa mphlet also given about Castro care. A copy of these instructions and information reg arding alcohol dependence, falls, and C5 fracture and central cord syndrome . has been given to: Patient /es/ AUBRIE SY RN REGISTERED NURSE Signed: 06/26/2022 15:31 Jun 26, 2022 01:56 PASTORAL CARE NOTE: ISRRAEL ELLIOTT IS [facility] PM LOCAL TITLE: GENERAL PEDIATRICIAN-VISITATION NOTE STANDARD TITLE: PASTORAL CARE NOTE DATE OF NOTE: JUN 26, 2022@13:56 ENTRY DATE: JUN 26, 2022@13:56:30 AUTHOR: ISRRAEL ELLIOTT EXP COSIGNER: URGENCY: STATUS: COMPLETED SUBJECT: [facility] Pastoral visit. The patient asked to rec eive Tyson in the most Holy Eucharist. The Sacrament was celebrated with the patient. Progress note entered for Mr Riaz Arellano - Yarsani Extra Ordinary Tube Room Supervisor of [facility] - Volunteer. /es/ FATHER ISRRAEL ELLIOTT (DAMIEN) CHIEF, GENERAL PEDIATRICIAN SERVICE Signed: 06/26/2022 13:56 Jun 26, 2022 09:55 OCCUPATIONAL THERAPY DISCHARGE NOTE: ASHA TONG [facility] TITLE: OT-DISCHARGE NOTE MALINI STANDARD TITLE: OCCUPATIONAL THERAPY DISCHARGE N OTE DATE OF NOTE: JUN 26, 2022@09:55 ENTRY DATE: JUN 26, 2022@09:55:51 AUTHOR: PRESTON CHAVEZ EXP COSIGNER: ASHA TONG URGENCY: STATUS: COMPLETED OT-DISCHARGE NOTE Has ADDENDA Occupational Therapy Progress Note Referring provider: BAL HILLS Diagnosis for which patient is referred to OT: weakness Consult request: Evaluation and Treatment Precautions: no lifting > 10 lbs due to C5 frac ture, c collar Date of Service: 06/25/22, 06/26/22 Encounter: 27 minutes self care SUBJECTIVE: [place] approach ed in supine on this date, agreeable to OT session. reporting that overnight he had pulled o ut his catheter because he didn't know that it had a balloon holding it in side. [place] continued to display confusion regarding his catheter after c onversations with data analyst report writer and medicine restaurant team member. GOAL(s) ADDRESSED THIS SESSION: +hygiene/grooming +toileting +total body dressing +functional mobility +bed mobility +falls/mobility OBJECTIVE/PROGRESS TOWARDS GOAL(s): [place] cont inued to display impulsivity during session requiring verbal cues to complete tasks safely. -Hygiene and grooming: SBA to complete toothbru shing and face washing with FWW. Vet able to complete ~3 minutes of standing hygiene activities. -Feeding: DNT -Toileting: SBA with FWW and use of grab bar fo r toilet transfer x2. -UE Dressing: Set up for doffing/donning of dk n sitting EOB. -Lower Extremity Dressing: SBA for nikhil ing pants without use of mobility aid. Assistance provided for management of catheter. -Functional mobility (Transfers): SBA for STS x 2 without use of mobility aid and SBA for STS x2 with use of FWW. [place] demo nstrating similar performance with and without mobility aid during functional transfers. -Bed mobility: SBA for sup<>sit. -Falls/Mobility: SBA for functional amb ulation to and from bathroom and 1 lap around sharma with FWW. Vet able to maintain conve rsation while ambulating. [place] displayed some insta nces of collisions while using the FWW with the bed and bathroom doorframes during session, however able to self-correct around obstacles. -Precautions: Vet able to verbalize and maintai n precautions throughout session on this date without verbal cues. Equipment: +Vet provided education regarding versaframe bar s (which he already owns), a shower chair, a hand held shower hose, a nd a rubber compounder formulator. [place] agreeable to use and able to demonstrate use of rubber compounder formulator during se ssion. +Discharge recommendations provided to vet, incl uding recommendations for outpatient services, as well as increased assist ance with driving, medication management and supervision for showers. Vet verb alizing agreement regarding discharge recommendations. PAIN: 8/10, however willing and able to particip ate in session VITALS: N/A COGNITION: Short Blessed Test (SBT): The SBT is a screening tool that aids in detecting early cognitive changes associated with dementia disorders. Further testing is warranted if dementia is suspected, the SBT shou ld not be used to diagnose dementia. The SBT is a weigh david six-item instrument that can identify dementia. The SBT has 6 questions that evaluate orientation, registration, and attention. (0-4 = normal cognition, 5-9 = questionable impa irment, 10+ = impairment consistent with dementia). Client scores as foll owing: No Max Error Errors Score X Weight 1 1 0 x4 = 0 2 1 0 x3 = 0 3 1 3 x3 = 3 4 2 2 x2 = 4 5 2 2 x2 = 4 6 5 5 x2 = 10 TOTAL Which indicates: 10 or > Impairment consistent w ith Dementia Comments: 's score indicates cognitive im pairment. At this time, a referral to neuropsychology testing to futher identify deficits is appropriate. Equipment provided to date: none Equipment still needed: rubber compounder formulator, shower chair an d hand held shower hose ASSESSMENT: Manohar Mantilla is 72 yo referred to this sett ing of weakness. Vet's PMH includes HTN, alcohol abuse, CAD, CKD, Afib, and hearing loss. OT consulted for assessment and treatment. At baseline, lives in a home with his and son. [place] reported that he was IND in I/ADLs, however received assistance with tying shoes, buttoning his shirts and other fine motor tasks. [place] seen for f/up session on this date to ad dress multiple ADLs. [place] required SBA throughout session for ADLs . However SBT was completed indicating that has deficits in cognition. Recommen d a referral to outpatient neuropsych testing to [facility] r assess deficits. Education provided on appropriate AE, with vet agreeable to use. Limitations still include decreased ROM of R shoulder, and decreased stre ngth in bilateral wrists/hands, pain, weight-bearing precautions, deficits in static/dynamic standing balance, and impulsivity impacting ADL/IADL safety and independence. At t his time, vet is safe to discharge home with supervision for IADLs and sh owering. Recommend that vet participate in outpatient OT to address UE ROM/S trength. PLAN: Patient will be d/c from inpt OT services. SHORT TERM GOALS TO BE MET BY 07/03/22: 1. Vet will complete total body dressing with m odified independence, using adaptive equipment as needed.-D/C, met 2. Vet will complete full toileting task, inclu ding transfers, hygiene, and clothing management with modified independe nce.-D/C, met 3. Vet will complete > 5 minutes of standing gr ooming/hygiene activities including gathering of supplies with supervisio n.-D/C 4. Vet will participate in identification and t rialing of appropriate adaptive equipment/durable medical equipment to promote functional independence and safety at home.-D/C, met 5. Vet will participate in appropriate cognitiv e screen to identify potential limitations negatively impacting I/AD L performance.-D/C, met 6. Vet will verbalize weight-bearing precaution s and demonstrate 100% adherence during ADL transfers and tasks.-D/C MUSHROOM SORTER GRADER GOALS TO BE MET BY DISCHARGE: will maximize independence and safety wi th ADL/IADLs in order to discharge to least restrictive environment. DISCHARGE: Home with Assistance for IADLs. RECOMMEND THE FOLLOWING SERVICES AT DISCHARGE: - Home health nurse 1x/week for medication manag ement - Home health aide 2-3x/week for bathing supervi agustín - Increased community support: transportation as sistance - Referral to neuropsychology for further cognit izzy testing to determine underlying impairment impacting safety and county judge ment -Outpatient OT for UE ROM and strength PATIENT EDUCATION ON TREATMENT PLAN: Patient indicates readiness to learn, verbalizes understanding, agreement and satisfaction with the treatment plan. Denies fur ther questions. /mikal/ ASHA TONG MS, OTR/L OCCUPATIONAL THERAPIST Signed: 06/26/2022 15:20 for PRESTON CHAVEZ OCCUPATIONAL THERAPY STUDENT /mikal/ ASHA TONG MS, OTR/L OCCUPATIONAL THERAPIST Cosigned: 06/26/2022 15:20 06/26/2022 ADDENDUM STATUS: COMPLETED In area supervision Agree [...] approved by the primary OT. Encounter data center architect was approved by the primary OT and is accurate for the services provided. /mikal/ ASAH TONG MS, OTR/L OCCUPATIONAL THERAPIST Signed: 06/26/2022 15:20 Jun 26, 2022 08:12 [facility] NURSING PROGRESS NOTE STANDARD TITLE: NURSING INPATIENT NOTE DATE OF NOTE: JUN 26, 2022@08:12 ENTRY DATE: JUN 26, 2022@08:12:48 AUTHOR: YOU MERCADO EXP COSIGNER: URGENCY: STATUS: COMPLETED Nursing Shift Note Nursing care provided from 06/26 [id number] Highlights from shift: VSS. Cervical collar on. Up walking adrián und the unit independently. Came up to nursing station at 0030 asking if the matthew cath eter could be removed. Pt informed that MDs want to leave matthew in for now and have him follow-up outpatient but that we can certainly as the team in the morning if TOV can be done before he discharges and that it can be dis cussed in AM. Pt agreeable to this. Pt called just after 3 am and had pulled out his catheter with the balloon intact. He was standing over the toilet with blood dripping out of his urethral meatus. contacted and gave okay to replace fo estephania catheter. This was done with some griggs return, urine lightening up to orange color by end of tour. 700ml total output aside fro m whatever he expelled between pulling the catheter out and getting the new catheter placed. Pt meseret rated the placement well and fell asleep a short while af ter. Received oxy and scheduled acet for pain. He's on PO abx. Continue plan of care. See ICCA for detailed assessment, Educa tion provided on medication/cares this shift as needed SKIN REINSPECTION/REASSESSMENT SKIN INSPECTION: Skin Color: Usual for ethnicity Skin Temperature: Warm Skin Moisture: Normal Skin Turgor: Elastic (normal/immediate) INTERVENTIONS: The pressure injury interventions were not need ed - patient/resident is not at risk. RISK FACTORS THAT INCREASE RISK FOR DEVELOPING PRESSURE INJURIES The patient/resident does not have any addition al risk factors. SKIN INTEGRITY: Intact Skin Interventions performed this shift: Patient kept clean and dry with barrier cream a pplied as ordered. /mikal/ YOU MERCADO RN REGISTERED NURSE Signed: 06/26/2022 08:18 Jun 25, 2022 03:13 NURSING INPATIENT NOTE: [facility] LOC[facility] TITLE: [facility] NURSING PROGRESS NOTE STANDARD TITLE: NURSING INPATIENT NOTE DATE OF NOTE: JUN 25, 2022@15:13 ENTRY DATE: JUN 25, 2022@15:13:30 AUTHOR: RAJNI MUNROE EXP COSIGNER: URGENCY: STATUS: COMPLETED Nursing Shift Note Nursing care provided from [id number] Highlights from shift: Mr. Mantilla had a good day. He was shaved and had his hair washed with a shower cap. Ambulated to the toilet X2 and had very large BM's with minimal bleeding from hemorrhoids. Fol ey output was 1000cc at 2000. See ICCA for detailed assessment SKIN REINSPECTION/REASSESSMENT SKIN INSPECTION: Skin Color: Usual for ethnicity Skin Temperature: Warm Skin Moisture: Normal Skin Turgor: Elastic (normal/immediate) INTERVENTIONS: New or changed pressure ulcer/injury interventi ons or medical condition. Education: Teach patient/caregiver importance of changing position frequently for pressure ulcer/injury prevention. Pressure-Redistribution measures: Avoid turning/position on side at greater than 30 degree angle Encourage small, frequent position changes Use pillows (or other pressure relieving device s) to separate pressure areas Other: Curve cushion in chair Maximize mobilization: Encourage activity as tolerated Limit sitting out of bed to less than two hours at a time Manage moisture: Apply protective barrier ointment Maintain clean and dry skin No more than one linen layer below the patient/ resident Manage nutrition: Encourage eating and assist with meals Reduce friction and shear: Keep head of bed at or below 30 degrees when no t eating Raise the knee when elevating head of bed RISK FACTORS THAT INCREASE RISK FOR DEVELOPING PRESSURE INJURIES The patient/resident does not have any addition al risk factors. SKIN INTEGRITY: Intact Skin Interventions performed this shift: Head of Bed kept below 30 degrees unless otherw ise ordered. Other: Pt has been indep of positioning. Sat in chair Pia /es/ RAJNI MUNROE RN STAFF NURSE Signed: 06/26/2022 00:19 Jun 25, 2022 02:14 INTERNAL MEDICINE INPATIENT NOTE: [facility] LOCAL TITLE: MEDICINE INPT PROGRESS NOTE STANDARD TITLE: INTERNAL MEDICINE INPATIENT NOTE DATE OF NOTE: JUN 25, 2022@14:14 ENTRY DATE: JUN 25, 2022@14:14:41 AUTHOR: ANUPAMA HILL EXP COSIGNER: URGENCY: STATUS: COMPLETED INPATIENT PROGRESS [...] rate. Lungs: Clear to auscultation bilaterally, no fuel efficient aircraft designer ckles, no wheezing, no increased [...] and pAfib on apixaban [facility] in the setting of alcohol intoxication who was discharged from [facility] on 06/24/2022 and presented to [facility] for assistance with finding [facility]. ACUTE ISSUES # C5 pedical fracture # Central cord syndrome # Mechanical fall Per records from [facility], patient had an accidental fall from bed [...] lack of skilled need and availability. - [place] x 3mo - Qshift neuro assessment - [...] in for 1 week w / home theater experience expert removal at home. - Continue PUBLIC HEALTH PROFESSOR Keflex - Continue PUBLIC HEALTH PROFESSOR tamsulosin - F/u w/ urology as outpatient [...] AFl burden w/ average HR 140 bpm. -button sewer apixaban -button sewer amiodrone -follows with EP, last since seen in 04/2022 #CKD Admission cr 1.3. Baseline 1.2-1.4. -CTM, avoid nephrotoxic agents #Seropositive RA -button sewer prednisone 10 mg daily -button sewer sulfasalazine 1000 mg BID OUTPATIENT FOLLOW UP [...] agrees with the above assessment plan. /mikal/ ANUPAMA HILL Resident Signed: 06/25/2022 15:25 Jun 25, 2022 01:15 [facility]: [facility]UTRITION CONSULT STANDARD TITLE: NUTRITION [...] 122.1(55.38)[22] BMI: 21 Usual body weight: 130#'s [place] body weight: 118#'s Recent weight changes: -14#'s [...] like any tacos, burritos, Mex[place] n food. [place] distractible, needs redirection to nutrition conversation at times. Noted H &P indicated alcohol use, replacing PO intake? Food preferences obtained Cultural/sikh food preferences: None Food Allergies: None Feeding [...] Not Able to Assess for Fluid Accumulation Ladle Watcher Strength Not Assessed Conclusion: Based on the above findings, the meets the clinical characteristics to support a diagnosis of: Severe Chronic Disease R elated Malnutrition. Skin Condition: skin intact per 06/25 nursing note Luther Score 15, Nutrition subscore 2 Estimated Nutrient Needs based on actual body we ight of 52kg 4537-1776 calories/day 30-35 kcal/kg ~62 grams protein/day ~1.2 g/kg *Monitor renal f unction 3905-8675 ml fluids/day 1 ml/kcal consumed or pe [...] Receipt Acknowledged By: * AWAITING SIGNATURE * MARQUEZ FRANZ Jun 25, 2022 12:53 ATTENDING ADMISSION EVALUATION NOTE: MARQUEZ FRANZ [facility] PM LOCAL TITLE: MEDICINE ADMISSION STAFF NOTE STANDARD TITLE: ATTENDING ADMISSION EVALUATION N OTE DATE OF NOTE: JUN 25, 2022@12:53 ENTRY DATE: JUN 25, 2022@12:53:28 AUTHOR: MARQUEZ FRANZ EXP COSIGNER: URGENCY: STATUS: COMPLETED INPATIENT MEDICINE [...] with C5 fx. Patient was treated at [facility] for C5 fx and central cord syndrome. [...] with C5 fx. Patient was treated at [facility] for C5 fx and central cord syn drome 1. Weakness/Rehab: patient had outpatient follow -up plan established by [facility]; plan to follow-up with Neurosurgery as outpatient. - PT evaluated patient here. Full note p ending; but reportedly did not feel he required STR either; can likely discharge home Linda Franz [phone] /es/ MARQUEZ FRANZ MD PHYSICIAN Signed: 06/25/2022 13:02 Jun 25, 2022 10:34 OCCUPATIONAL THERAPY INITIAL EVALUATION NOTE: ASHA TONG [facility] AM [facility] TITLE: OT-EVALUATION NOTE MALINI STANDARD TITLE: OCCUPATIONAL [...] cognition i mpacting ADL/IADL safety and independence. [place] required SBA<>C GA during functional mobility and [...] adherence during ADL transfers and tasks.-heather mosquera [facility] GOALS TO BE MET BY DISCHARGE: [place] will maximize independence and safety wi th [...] CURRENT MEDICAL HISTORY: Benign essential hypertension (SCT 88936Rhlzgeb loss (ICD-9-CM 389.9) HTN - Hypertension (RUST [id number]) Hyperlipidemia (RUST 42152470) Alcohol abuse (RUST [id number]) Cannabis abuse (RUST 59906435) Pain in joint involving shoulder region Anemia ( RUST [id number]) Jt Replcmnt Stat, Knee (ICD-9-CM V43.65)Gastroes ophageal reflux disease (RUST 102409929) CAD - Coronary artery disease (RUST 67358Gdxjz no n-ST segment elevation myocardial infarction (RUST [id number]) Chronic kidney disease (RUST 564132806) Rib fract ure (RUST 85723530) Pain of right shoulder joint (SCT 083074Mnji landry n (RUST 78642760) Ankle pain (RUST 128363515) Rhinitis (RUST 0463211 2) Seropositive rheumatoid arthritis (SCT 2Multifoc al atrial tachycardia (RUST 72725727) Elevated liver enzymes level (RUST 724548Vuyyuvdg al atrial fibrillation (RUST 655547421) Long-term current use of anticoagulant (Drug mon itoring done (RUST [id number]) SUBJECTIVE: [place] approach ed sitting EOB on this date. [place] agreeable to OT session. [place] tangential with conversation, a nd required redirection to complete full OT evaluation. [place] becoming confused throughout session on the role of data analyst report writer requiring re-education on multipl e occassions. [...] with use of FWW and grab bar. [place] demonstrating impulsivity when sitting down. -UE Dressing: [...] +pronation:3/5 +wrist flexion/extension: 3/5 +finger flexion/extension: 3/5 +Ladle Watcher strength: 4/5 Coordination: WFL Sensation: Intact in [...] 3/5 +wrist flexion/extension: 3/5 +finger flexion/extension: 3/5 +Ladle Watcher strength: 4/5 Coordination: WFL Sensation: Intact in [...] 15:46 for PRESTON CHAVEZ OCCUPATIONAL THERAPY STUDENT /mikal/ ASHA TONG MS, OTR/Carla OCCUPATIONAL THERAPIST Cosigned: 06/25/2022 15:46 06/25/2022 ADDENDUM [...] approved by the primary OT. Encounter data center architect was approved by the primary OT and is accurate for the services provided. /mikal/ ASHA TONG MS, OTR/L OCCUPATIONAL THERAPIST Signed: 06/25/2022 15:58 Jun 25, 2022 03:58 NURSING INPATIENT NOTE: JOSE ALBERTO OSCAR [facility] LOCAL TITLE: [facility] NURSING PROGRESS NOTE STANDARD TITLE: [...] Skin Interventions performed this shift: Patient turned [id number] or as appropriate while in bed. Patient's heels elevated with pressure relief b oots or pillows under calves. /mikal/ JOSE ALBERTO OSCAR LPN LICENSED PRACTICAL NURSE Signed: 06/25/2022 07:40 06/25/2022 ADDENDUM STATUS: COMPLETED Cared for pt 06/25 [id number]. Doing well d uring this time. Pt [...] cervical collar on. Continue plan of care. /es/ YOU AYALACOMB, RN REGISTERED NURSE Signed: 06/25/2022 09:37 06/25/2022 ADDENDUM STATUS: COMPLETED Correction to addendum: Cared for pt 8 0800-12 00. /abbie MERCADO RN REGISTERED NURSE Signed: 06/25/2022 09:37 Jun 25, 2022 02:40 NURSING NOTE: YOU MERCADO [facility] LOCAL TITLE: [facility] SKIN INSPECTION/ASSESSMENT STANDARD TITLE: NURSING NOTE DATE [...] 02:28 NURSING ADMISSION EVALUATION NOTE: SHAD MERCADO [facility] LOCAL TITLE: [facility] ACUTE INPATIENT NSG ADMISSIO N SCREEN STANDARD TITLE: NURSING ADMISSION EVALUATION NOT E DATE OF NOTE: JUN 25, 2022@02:28 ENTRY DATE: JUN 25, 2022@02:28:40 AUTHOR: ROGELIOYOU Olamide WOODY COSIGNER: URGENCY: STATUS: COMPLETED ALLERGY/ADVERSE DRUG REACTION (ADR) REVIEW (MRT 5) FACILITY ALLERGY/ADR -------- No Remote Allergy/ADR Data available for [facility] Allergy/Adverse Drug Reaction Review to be condu cted by: Nurse Results of Allergy/ADR Review: Allergy/Adverse Drug Reaction list confirmed MEDICATION REVIEW (MRR1) Did patient bring medication(s) from home? No Medication Review to be conducted by Pharmacist Medication Review to be conducted by Provider GENERAL INFORMATION Admission information given by: Patient Preferred Language for Discussing Healthcare: Nigerian Preferred mode of communication: Verbal Items at bedside: Glasses/contacts: glasses Other: wallet, flip phone, clothes, shoes INFECTIOUS DISEASE RISK SCREEN Travel Screen: Have you traveled within the [facility] with in the last 21 days? No Have you traveled outside the [facility] wit hin the last 21 days? No [...] special dieta ry needs, ethnic, cultural or sikh preferences affecting dietary needs? No Nutrition Consult [...] leave immed iately: No SUICIDE SCREEN The [place] Suicide Severity Rating Scale (C-SSRS) has been [...] Advance Directive: No SPIRITUAL ASSESSMENT Are there sikh practices or spiritual conc erns you want the travel administrator, your provider, and other health care team membe rs to know? Yes Explain: would like to see travel administrator, takes communion Mail Room Clerk consult ordered. ANTICIPATED DISCHARGE NEEDS Where do you live? Housing owned/rented by [place] Do you have a legal guardian/conservator? No [...] ASPIRATION RISK ASSESSMENT AND SWALLOW SCREEN None /es/ YOU MERCADO RN REGISTERED NURSE Signed: 06/25/2022 02:38
--- OUTSIDE RECORDS SUMMARY | 2022-07-04 09:14 | XMS_ITS | Encounter Summary ---
:1950 Author Organization [facility] Address [address] [place] [id number] Support Name Relationship Address Phone MADELIN MANTILLA Unavailable [address] [phone] [place] [address] MADELIN MANTILLA Unavailable [address] [phone] [place] [address] DHAVAL MANTILLA Unavailable [address] [place] [address] Insurance Providers: All historical and current Section [...] MEDICARE MEDICARE PART Jul 18, PART B [id number] ANNALEE BUSTILLO (WNR) (M) B 2014A [phone] ,REGI MEDICARE MEDICARE PART Apr 17, PART A [id number] 800 ANNALEE BUSTILLO (WNR) (M) A 2012A [phone] ,REGI Selected Encounter This section includes the information on record at [place] for the Encounter. 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 The data comes from all [place] treatment facilities. Appointment Date/Time Appointment Type Appointment Facili ty Name Jul 12, 2022 09:20 AM AMBULATORY - SURGERY [facility] Jul 19, 2022 07:00 AM AMBULATORY - NONE [facility] Jul 19, 2022 08:00 AM AMBULATORY - MEDICINE [facility] CS Jul 19, 2022 09:00 AM AMBULATORY - MEDICINE [facility] CS Jul 25, 2022 09:00 AM AMBULATORY - NONE [facility] Jul 25, 2022 10:30 AM AMBULATORY - NONE [facility] Jul 25, 2022 11:00 AM AMBULATORY - SURGERY [facility] Jul 25, 2022 12:30 PM AMBULATORY - NONE [facility] Aug 05, 2022 11:00 AM AMBULATORY - NONE [facility] Nov 20, 2022 10:30 AM AMBULATORY - MEDICINE [facility] CS Nov 20, 2022 11:00 AM AMBULATORY - MEDICINE [facility] CS Nov 20, 2022 11:30 AM AMBULATORY - MEDICINE [facility] Active, Pending, and Scheduled Orders This section includes a listing of several types of active, pending, and scheduled orders, including clinic medications orders, diagnostic test orders, procedure orders and consult orders; where the start date of the order is 45 days before the date of the Encounter or 45 days after the date of the Encounter. The data comes from all [facility]. Test Date/Time Test Type Test Details Facility Name May 15, 2022 12:00 Laboratory - COVID-19 AND FLU/RSV DIAG MIN [facility] AM Chemistry Order PANEL(CEPHEID) NASOPHARYNGEAL SWAB STAT WC ONCE Jun 24, 2022 06:55 Laboratory - EXTRA GOLD GEL TUBE SERUM MIN [facility] PM Chemistry Order Jun 24, 2022 06:55 Laboratory - EXTRA PURPLE TUBE BLOOD [facility] PM Chemistry Order Jun 24, 2022 06:55 Laboratory - EXTRA MINT TUBE PLASMA WC MIN [facility] PM Chemistry Order Jun 24, 2022 06:55 Laboratory - EXTRA BLUE TUBE PLASMA WC MIN [facility] PM Chemistry Order Jun 28, 2022 04:57 Consult Order NEUROSURGERY OUTPT Cons [facility] PM Telecom Billing Analyst's Choice Jun 28, 2022 05:00 Consult Order UROLOGY OUTPT [place] [facility] PM Telecom Billing Analyst's Choice Jul 10, 2022 12:00 Laboratory - RHEUMATOLOGY CHEM PANEL [facility] AM Chemistry Order PLASMA SP ONCE Jul 10, 2022 12:00 Laboratory - RHEUMATOLOGY HEME PANEL [facility] AM Chemistry Order BLOOD SP ONCE Jul 25, 2022 10:30 Imaging - General CERVICAL SPINE 4 OR 5 [facility] AM Radiology Order VIEWS Lab Results: +/- 30 days of the encounter This section includes the Chemistry and Hematology Lab Results on record with MI for the patient. Radiology Reports and Pathology Reports are provided separately, in subsequent sections.Lab Results This section contains the Chemistry/Hematology Results that were resulted 30 days before or 30 daysafter the date of the Encounter. Date/Time Source Result Type Result - Unit Interpretation Reference Range Comment Jun 24, 2022 09:29 PM [facility] URINALYSIS Specim en Type: URINE No comment enter ed. Ordering Provid er: JAYDE MENDOZA Report Released Date/Time: Jun 24, 2022 06:55 PM Reporting Lab: [facility] [address] [facility] [address] Performing Lab: [facility] [address] [facility] [address] URINE COLOR YELLOW SPECIFIC GRAVITY 1.039 H [...] 25 NEGATIVE Jun 24, 2022 08:24 PM [facility] AST/SGOT Specim en Type: PLASMA No comment enter ed. Ordering Provid er: JAYDE MENDOZA Report Released Date/Time: Jun 24, 2022 08:09 PM Reporting Lab: [facility] [address] [facility] [address] Performing Lab: [facility] [address] [facility] [address] AST/SGOT 19 <34 Jun 24, 2022 08:24 PM [facility] POTASSIUM Specim en Type: PLASMA No comment enter ed. Ordering Provid er: JAYDE MENDOZA Report Released Date/Time: Jun 24, 2022 08:09 PM Reporting Lab: [facility] [address] [facility] [address] Performing Lab: [facility] [address] [facility] [address] POTASSIUM 4.9 3.5-5.1 Jun 24, 2022 08:24 PM [facility] PROTEIN,TOTAL Specim en Type: PLASMA No comment enter ed. Ordering Provid er: JAYDE MENDOZA Report Released Date/Time: Jun 24, 2022 08:09 PM Reporting Lab: [facility] [address] [facility] [address] Performing Lab: [facility] [address] [facility] [address] PROTEIN,TOTAL 6.8 6.0-8.3 Jun 24, 2022 07:40 [facility] PROTHROMBIN TIME/INR Spec imen Type: PLASMA PM No comment enter ed. Ordering Provid er: JAYDE MENDOZA Report Released Date/Time: Jun 24, 2022 06:55 PM [facility] [address] Performing Lab: [facility] [address] .INR 1.1 0.8-1.1 .PT 12.1 9.4-12.5 Jun 24, 2022 07:32 [facility] COVID-19 DIAGNOSTIC Speci men Type: NASOPHARYNGEAL PM PANEL (CEPHEID) Comment: Cephei d GeneXpert (618) Ordering Provid er: JAYDE MENDOZA Report Released Date/Time: Jun 24, 2022 06:55 PM Reporting Lab: [facility] [address] [address] Performing Lab: [facility] [address] COVID-19 (CEPHEID) Not Detected Not Dete cted Jun 24, 2022 [facility] COMPREHENSIVE METABOLIC Spec imen Type: PLASMA 07:29 PM PANEL+MG Comment: Cancel lation reported to: Rajni Giraldo RN on 06/24/22@2003 by [place]. Test result cancelled due to hemolysis interference in sample. Ordering Provid er: JAYDE MENDOZA Report Released Date/Time: Jun 24, 2022 06:55 PM Reporting Lab: [facility] [address] [facility] [address] Performing Lab: [facility] [address] CREATININE 1.3 H 0.7-1.2 UREA NITROGEN 19 [...] L >60 Jun 24, 2022 07:29 PM [facility] CBC & DIFF Specim en Type: BLOOD Comment: Clumpe d Platelets. Invitro artefact. No clinical significance. Platelet count may be higher than stated value. Plt count = 214 K-cmm Manual Differential Performed Ordering Provid er: JAYDE MENDOZA Report Released Date/Time: Jun 24, 2022 06:55 PM Reporting Lab: [facility] [address] [facility] [address] Performing Lab: [facility] [address] WBC 9.67 4.0-11.0 RBC 3.36 L 4.6-6.2 [...] dy Source Pressure Rate Mass Index Jun 25.4 F 58 127/70 18 /min 95 % 0 [place] 2021 11:52 /min mm[Hg] [facility] Aug 09, 98.0 F 59 103/65 19 /min 91 % 8 [place] 2021 05:23 /min mm[Hg] [facility] Jun 25, 98.3 F 58 110/70 18 /min 93 % 8 [place] 2021 04:41 /min mm[Hg] [facility] Jun 25, 5 [place] 2021 08:23 [facility] Jun 25, 99.4 F 73 115/71 16 /min 89 % [place] 2021 08:10 /min mm[Hg] [facility] Social History: Smoking Status (Most current) and Tobacco Use (All prior to encounter date) This section includes the most current, and the historical, smoking and tobacco-related health factors from the [place] facility where the Encounter took place.Current Smoking Status This section includes the most current smoking, or tobacco-related health factor, from the [place] facility where the Encounter took place. Date/Time Current Smoking Status Comment Facility Mar 05, 2022 01:30 PM VA-TOBACCO FORMER USER MIN [facility] Tobacco Use History This section includes a history of the smoking, or tobacco- related health factors, that were collected on or before the date of the Encounter. The data comes from the [place] facility where the Encounter took place. Date/Time Smoking Status/Tobacco Use Comment [facility] Mar 05, 2022 01:30 PM VA-TOBACCO QUIT 1 TO < 5 YRS [facility] Jun 01, 2021 02:00 PM VA-TOBACCO NEVER USED [place] [facility] Dec 31, 2019 10:54 AM VA-TOBACCO FORMER USER MIN [facility] Dec 31, 2019 10:54 AM VA-TOBACCO QUIT < 1 YEAR [place] [facility] March 23, 2019 09:53 AM VA-TOBACCO FORMER USER MIN [facility] March 23, 2019 09:53 AM VA-TOBACCO QUIT < 1 YEAR [place] [facility] Jun 10, 2018 10:00 AM CURRENT TOBACCO USER [place] [facility] May 10, 2018 07:27 PM INPT TOBACCO COUNSELING [place] [facility] May 10, 2018 07:27 PM INPT TOBACCO USER MIN[place] GERDA [facility] Aug 29, 2017 09:55 AM FORMER TOBACCO USE <1Y MIN [facility] May 26, 2017 10:51 PM INPT TOBACCO COUNSELING [place] [facility] May 26, 2017 10:51 PM INPT TOBACCO USER CAROLYNO GERDA [facility] May 03, 2017 09:34 PM INPT TOBACCO COUNSELING MD RADHA [facility] May 03, 2017 09:34 PM INPT TOBACCO USER CAROLYNO GERDA [facility] Sep 18, 2016 01:36 PM FORMER TOBACCO USE <1Y MIN [facility] Aug 10, 2016 03:54 PM INPT TOBACCO USE - PT REFUSED [facility] Aug 01, 2016 06:48 PM [facility] Aug 01, 2016 06:48 PM INPT TOBACCO USER CAROLYNO GERDA [facility] Feb 08, 2015 09:57 AM CURRENT [facility]ACCO [facility] Nov 29, 2013 10:37 AM CURRENT TOBACCO USER [facility] Nov 26, 2013 11:09 AM PATIENT IS TOBACCO USER [facility] Nov 27, 2012 12:12 PM CURRENT TOBACCO USER [facility] KRISTELChelita [facility] Dec 27, 2011 09:44 AM CURRENT TOBACCO USER [facility] Jan 22, 2011 02:38 PM CURRENT TOBACCO USER [facility] Mar 13, 2010 12:48 PM CURRENT TOBACCO USER [facility] Advance Directives: All historical and current Section Date Range: From patient's date of to the date document was created. This section includes ALL of a patient's completed or amended [place] Advance and Rescinded Directives. The entries below indicate that a directive exists for the patient, but an actual copy is not included with this document. The data comes from all [place] facilities. Date Advance Directives Provider Source Feb 25, 2018 ADVANCE DIRECTIVE AURORA MORALES [facility] Feb 24, 2018 ADVANCE DIRECTIVE DISCUSSION AURORA MORALES [facility] May 26, 2017 CLINICAL WARNING MAGO CONTRERAS [facility] May 03, 2017 CLINICAL WARNING SARIAH ENGLE [facility] Aug 10, 2016 CLINICAL WARNING ISABEL BARCENAS [facility] Aug 02, 2016 CLINICAL WARNING AURORA ALMAZAN [facility] Encounter Notes: All associated encounter notes This section contains the clinical notes associated to the Encounter. 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 Spiritual Distress/Coping: is in quite a bit of physical pain due to his injuries. Intervention: Dry Cleaner Helper visited the to asse ss current spiritual needs. Dry Cleaner Helper provided spiritual care through ministry of presence, as well as active and reflective listening. [place] stated that he will never drink again due to these injuries. He revealed that he has been drinking since he was [age] years old and he is 72 now, lots of dr arellano. Outcome: Pastoral Care Plan: Flux Tube Attendant will continue to follow for spiritual and emotional wellbeing during their hospital st ay. /mikal/ VJ WOMACK MDIV Staff Toppiece Cutter Signed: 06/25/2022 12:36
--- OUTSIDE RECORDS SUMMARY | 2022-07-04 09:14 | XMS_ITS ---
DAILY HOSPITALIZATION DATA [facility] Encounter Summary Created on:June 25, 2022 Patient:REGI MANTILLA Sex:Male :1950 Author Organization [facility] Address [address] [place] [address] Support Name Relationship Address Phone MADELIN MANTILLA Unavailable [address] [phone] [place] [address] MADELIN MANTILLA Unavailable [address] [phone] [place] [address] DHAVAL MANTILLA Unavailable [address] [place] [address] Insurance Providers: All historical and current Section [...] MEDICARE MEDICARE PART Jul 18, PART B [id number] 800 ANNALEE BUSTILLO (WNR) (M) B 2014A [phone] ,REGI MEDICARE MEDICARE PART Apr 17, PART A [id number] 800 ANNALEE BRYANIENT (WNR) (M) A [phone] ,REGI Selected Encounter This section includes the information on record at [place] for the Encounter. Date/Time Encounter Type Encounter Description Reason Provider Source Jun 25, 2022 02:14 Inpatient Visit DAILY HOSPITALIZATION DATA [facility] Encounter Template Text not used [...] SURGERY [facility] Jul 19, 2022 07:00 AM AMBULATORY - NONE [facility] Jul 19, 2022 08:00 AM AMBULATORY - MEDICINE [facility] Jul 19, 2022 09:00 AM AMBULATORY - MEDICINE [facility] Jul 25, 2022 09:00 AM AMBULATORY - NONE [facility] Jul 25, 2022 10:30 AM AMBULATORY - NONE [facility] Jul 25, 2022 11:00 AM AMBULATORY - SURGERY [facility] Jul 25, 2022 12:30 PM AMBULATORY - NONE [facility] Aug 05, 2022 11:00 AM AMBULATORY - NONE [facility] Nov 20, 2022 10:30 AM AMBULATORY - MEDICINE [facility] CS Nov 20, 2022 11:00 AM AMBULATORY - MEDICINE [facility] CS Nov 20, 2022 11:30 AM AMBULATORY - [facility]IC[facility] Active, Pending, and Scheduled Orders This [...] Laboratory - COVID-19 AND FLU/RSV DIAG MIN [facility] AM Chemistry Order PANEL(CEPHEID) NASOPHARYNGEAL SWAB STAT [...] [facility] PM Chemistry Order Jun 28, 2022 04:57 Consult Order NEUROSURGERY OUTPT Cons [place] [facility] PM Boat Carpenter Mechanic's Choice Jun 28, 2022 05:00 Consult Order UROLOGY OUTPT [place] [facility] PM Boat Carpenter Mechanic's Choice Jul 10, 2022 12:00 Laboratory - [...] Range Comment Jun 24, 2022 09:29 PM [facility] URINALYSIS Specim en Type: URINE No comment enter ed. Ordering Provid er: JAYDE MENDOZA Report Released Date/Time: Jun 24, 2022 06:55 PM Reporting Lab: [facility] [address] [facility] [address] Performing Lab: [facility] [address] URINE COLOR YELLOW SPECIFIC GRAVITY 1.039 H [...] 25 NEGATIVE Jun 24, 2022 08:24 PM [facility] AST/SGOT Specim en Type: PLASMA No comment enter ed. Ordering Provid er: JAYDE MENDOZA Report Released Date/Time: Jun 24, 2022 08:09 PM Reporting Lab: [facility] [address] [facility] [address] Performing Lab: [facility] [address] [facility] [address] AST/SGOT 19 <34 Jun 24, 2022 08:24 PM [facility] POTASSIUM Specim en Type: PLASMA No comment enter ed. Ordering Provid er: JAYDE MENDOZA Report Released Date/Time: Jun 24, 2022 08:09 PM Reporting Lab: [facility] [address] [facility] [address] Performing Lab: [facility] [address] [facility] [address] POTASSIUM 4.9 3.5-5.1 Jun 24, 2022 08:24 PM [facility] PROTEIN,TOTAL Specim en Type: PLASMA No comment enter ed. Ordering Provid er: JAYDE MENDOZA Report Released Date/Time: Jun 24, 2022 08:09 PM Reporting Lab: [facility] [address] [facility] [address] Performing Lab: [facility] [address] [facility] [address] PROTEIN,TOTAL 6.8 6.0-8.3 Jun 24, 2022 07:40 [facility] PROTHROMBIN TIME/INR Spec imen Type: PLASMA PM No comment enter ed. Ordering Provid er: JAYDE MENDOZA Report Released Date/Time: Jun 24, 2022 06:55 PM Reporting Lab: [facility] [address] Performing Lab: [facility] [address] .INR 1.1 0.8-1.1 .PT 12.1 9.4-12.5 Jun 24, 2022 07:32 [facility] COVID-19 DIAGNOSTIC Speci men Type: NASOPHARYNGEAL PM PANEL (CEPHEID) Comment: Cephei d GeneXpert (618) Ordering Provid er: JAYDE MENDOZA Report Released Date/Time: Jun 24, 2022 06:55 PM Reporting Lab: [facility] [address] [facility] [address] Performing Lab: [facility] [address] COVID-19 (CEPHEID) Not Detected Not Dete cted Jun 24, 2022 07:29 PM [facility] CBC & DIFF Specim en Type: BLOOD Comment: Clumpe d Platelets. Invitro artefact. No clinical significance. Platelet count may be higher than stated value. Plt count = 214 K-cmm Manual Differential Performed Ordering Provid er: JAYDE MENDOZA Report Released Date/Time: Jun 24, 2022 06:55 PM Reporting Lab: [facility] [address] [facility] [address] Performing Lab: [facility] [address] WBC 9.67 4.0-11.0 RBC 3.36 L 4.6-6.2 [...] canc .RBC MORPHOLOGY PRESENT Jun 24, 2022 [facility] COMPREHENSIVE METABOLIC Spec imen Type: PLASMA 07:29 PM PANEL+MG Comment: Cancel lation reported to: Rajni Giraldo RN on 06/24/22@2003 by Test result cancelled due to hemolysis interference in sample. Ordering Provid er: JAYDE MENDOZA Report Released Date/Time: Jun 24, 2022 06:55 PM Reporting Lab: [facility] [address] Performing Lab: [facility] [address] CREATININE 1.3 H 0.7-1.2 UREA NITROGEN 19 [...] % 0 [place] 2021 11:52 /min mm[Hg] [facility] Jun 25, 98.0 F 59 103/65 19 /min 91 % 8 [place] 2021 05:23 /min mm[Hg] [facility] Jun 25, 98.3 F 58 110/70 18 /min 93 % 8 [place] 2021 04:41 /min mm[Hg] [facility] Jun 25, 5 [place] 2021 08:23 [facility] Jun 25, 99.4 F 73 115/71 16 /min 89 % [place] 2021 08:10 /min mm[Hg] [facility] Social History: Smoking Status (Most current) [...] 2022 01:30 PM VA-TOBACCO FORMER USER MIN [facility] Tobacco Use History This section includes a history of the smoking, or tobacco- related health factors, that were collected on or before the date of the Encounter. The data comes from the [place] facility where the Encounter took place. Date/Time Smoking Status/Tobacco Use Comment Facil it Mar 05, 2022 01:30 PM VA-TOBACCO QUIT 1 TO < 5 YRS [facility] Jun 01, 2021 02:00 PM VA-TOBACCO NEVER USED [place] [facility] Dec 31, 2019 10:54 AM VA-TOBACCO FORMER USER MIN [facility] Dec 31, 2019 10:54 AM VA-TOBACCO QUIT < 1 YEAR [place] [facility] March 23, 2019 09:53 AM VA-TOBACCO FORMER USER MIN [facility] March 23, 2019 09:53 AM VA-TOBACCO QUIT < 1 YEAR [place] [facility] Jun 10, 2018 10:00 AM CURRENT TOBACCO USER [place] [facility] May 10, 2018 07:27 PM INPT TOBACCO COUNSELING [place] [facility] May 10, 2018 07:27 PM INPT TOBACCO USER [place] [facility] Aug 29, 2017 09:55 AM FORMER TOBACCO USE <1Y MIN [facility] May 26, 2017 10:51 PM INPT TOBACCO COUNSELING [place] [facility] May 26, 2017 10:51 PM INPT TOBACCO USER [place] [facility] May 03, 2017 09:34 PM INPT TOBACCO COUNSELING [place] [facility] May 03, 2017 09:34 PM INPT TOBACCO USER GONZALES LORENZ [facility] Sep 18, 2016 01:36 PM FORMER TOBACCO USE <1Y [facility] Aug 10, 2016 03:54 PM INPT TOBACCO USE - PT REFUSED [facility] Aug 01, 2016 06:48 PM [facility]PT [facility]AC[facility]SEL[facility] Aug 01, 2016 06:48 PM INPT TOBACCO USER CAROLYNO [facility] Feb 08, 2015 09:57 AM CUR[facility]AC[facility] Nov 29, 2013 10:37 AM CURRENT [facility]ACCO US[facility] Nov 26, 2013 11:09 AM PATIENT IS TOBACCO USER [facility] Nov 27, 2012 12:12 PM CURRENT TOBACCO USER LAWSON HUMPHRIESChelita [facility] Dec 27, 2011 09:44 AM CURRENT [facility]ACCO US[facility] Jan 22, 2011 02:38 PM CURRENT TOBACCO US[facility] Mar 13, 2010 12:48 PM [...] 25, 2018 ADVANCE DIRECTIVE AURORA MORALES [facility] Feb 24, 2018 ADVANCE DIRECTIVE DISCUSSION AURORA MORALES [facility] May 26, 2017 CLINICAL WARNING MAGO CONTRERAS [facility] May 03, 2017 CLINICAL WARNING SARIAH ENGLE [facility] Aug 10, 2016 CLINICAL WARNING ISABEL BARCENAS [facility] Aug 02, 2016 CLINICAL WARNING AURORA ALMAZAN [facility]
--- OUTSIDE RECORDS SUMMARY | 2022-07-04 09:15 | XMS_ITS | Encounter Summary ---
:1950 Author Organization Department [facility] Address [address] [place] [address] Support Name Relationship Address Phone MADELIN MANTILLA Unavailable [address] [phone] [place] [address] MADELIN MANTILLA Unavailable [address] [phone] [place] [address] DHAVAL MANTILLA Unavailable [address] [place] [address] Insurance Providers: All historical and current Section [...] MEDICARE MEDICARE PART Jul 18, PART B [id number] ANNALEE BRYANIENT (WNR) (M) B [id number] [id number] ,REGI MEDICARE MEDICARE PART Apr 17, PART A [id number] ANNALEE Cardenas ATIENT (WNR) (M) A [id number] [phone] ,REGI Selected Encounter This section includes the information on record at [place] for the Encounter. Date/Time Encounter Type Encounter Reason Provider Source Description Jun 25, 2022 PT EVAL MOD PHYSICAL THERAPY ICD-10-CM KENNEY ARREAGA 11:00 AM COMPLEX 30 MIN Z74.09 Other W reduced mobility with Provider Comments: Reduced Mobility IHE Encounter Template Text not used by [facility] Assessments - Encounter Diagnoses This section includes the primary and secondary diagnoses documented for the Encounter. Date/Time Primary/Secondary Diagnosis Name Provider Source Diagnosis Jun 25, 2022 PRIMARY Other reduced KENNEY ARREAGA [place] V A 03:57 PM mobility W [facility] Plan of Treatment: Future Appointments (+ 6 months) and Future Tests (+/- 45 days) The Plan of Treatment section includes future care activities for the patient from [facility] This section includes future appointments and future orders which are active, pending orscheduled.Future Appointments This section includes appointments that were scheduled to occur 6 months from the date of the Encounter, up to a maximum of 20 appointments. The data comes from all [place] treatment [facility]. Appointment Date/Time Appointment Type Appointment Facili ty Name Jul 12, 2022 09:20 AM AMBULATORY - SURGERY [facility] Jul 19, 2022 07:00 AM AMBULATORY - NONE [facility] Jul 19, 2022 08:00 AM AMBULATORY - MEDICINE [facility] Jul 19, 2022 09:00 AM AMBULATORY - MEDICINE [facility] Jul 25, 2022 09:00 AM AMBULATORY - NONE [facility] Jul 25, 2022 10:30 AM AMBULATORY - NONE [facility] Jul 25, 2022 11:00 AM AMBULATORY - SURGERY [facility] Jul 25, 2022 12:30 PM AMBULATORY - NONE [facility] Aug 05, 2022 11:00 AM AMBULATORY - NONE [facility] Nov 20, 2022 10:30 AM AMBULATORY - MEDICINE [facility] Nov 20, 2022 11:00 AM AMBULATORY - MEDICINE [facility] Nov 20, 2022 11:30 AM AMBULATORY - MEDICINE [facility] Active, Pending, and Scheduled Orders This section includes a listing of several types of active, pending, and scheduled orders, including clinic medications orders, diagnostic test orders, procedure orders and consult orders; where the start date of the order is 45 days before the date of the Encounter or 45 days after the date of the Encounter. The data comes from all [facility]. Test Date/Time Test Type Test Details Facility Name May 15, 2022 12:00 Laboratory - COVID-19 AND FLU/RSV DIAG [facility] AM Chemistry Order PANEL(CEPHEID) NASOPHARYNGEAL SWAB STAT WC ONCE Jun 24, 2022 06:55 Laboratory - EXTRA BLUE TUBE PLASMA WC [facility] PM Chemistry Order Jun 24, 2022 06:55 Laboratory - EXTRA GOLD GEL TUBE SERUM [facility] PM Chemistry Order Jun 24, 2022 06:55 Laboratory - EXTRA MINT TUBE PLASMA WC [facility] PM Chemistry Order Jun 24, 2022 06:55 Laboratory - EXTRA PURPLE TUBE BLOOD [facility] PM Chemistry Order WC Jun 28, 2022 04:57 Consult Order NEUROSURGERY OUTPT Cons LAWSON ADAME [facility] PM Fundraising Consultant's Choice Jun 28, 2022 05:00 Consult Order UROLOGY OUTPT Cons ZEINAB Merlos [facility] PM Fundraising Consultant's Choice Jul 10, 2022 12:00 Laboratory - RHEUMATOLOGY CHEM PANEL [facility] AM Chemistry Order PLASMA SP ONCE Jul 10, 2022 12:00 Laboratory - RHEUMATOLOGY HEME PANEL [facility] AM Chemistry Order BLOOD SP ONCE Jul 25, 2022 10:30 Imaging - General CERVICAL SPINE 4 OR 5 [facility] AM Radiology Order VIEWS Lab Results: [...] Range Comment Jun 24, 2022 09:29 PM [facility] URINALYSIS Specim en Type: URINE No comment enter ed. Ordering Provid er: JAYDE MENDOZA Report Released Date/Time: Jun 24, 2022 06:55 PM Reporting Lab: [facility] [address] [facility] [id number] Performing Lab: [facility] [address] [facility] [id number] URINE COLOR YELLOW SPECIFIC GRAVITY 1.039 H [...] 25 NEGATIVE Jun 24, 2022 08:24 PM [facility] AST/SGOT Specim en Type: PLASMA No comment enter ed. Ordering Provid er: JAYDE MENDOZA Report Released Date/Time: Jun 24, 2022 08:09 PM Reporting Lab: [facility] [address] [facility] [address] Performing Lab: [facility] [address] [facility] [address] AST/SGOT 19 <34 Jun 24, 2022 08:24 PM [facility] POTASSIUM Specim en Type: PLASMA No comment enter ed. Ordering Provid er: JAYDE MENDOZA Report Released Date/Time: Jun 24, 2022 08:09 PM Reporting Lab: [facility] [address] [facility] [address] Performing Lab: [facility] [address] [facility] [address] POTASSIUM 4.9 3.5-5.1 Jun 24, 2022 08:24 PM [facility] PROTEIN,TOTAL Specim en Type: PLASMA No comment enter ed. Ordering Provid er: JAYDE MENDOZA Report Released Date/Time: Jun 24, 2022 08:09 PM Reporting Lab: [facility] [address] [facility] [address] Performing Lab: [facility] [address] [facility] [address] PROTEIN,TOTAL 6.8 6.0-8.3 Jun 24, 2022 07:40 [facility] PROTHROMBIN TIME/INR Spec imen Type: PLASMA PM No comment enter ed. Ordering Provid er: JAYDE MENDOZA Report Released Date/Time: Jun 24, 2022 06:55 PM Reporting Lab: [facility] [address] [facility] [address] Performing Lab: [facility] [address] [facility] [address] .INR 1.1 0.8-1.1 .PT 12.1 9.4-12.5 Jun 24, 2022 07:32 [facility] COVID-19 DIAGNOSTIC Speci men Type: NASOPHARYNGEAL PM PANEL (CEPHEID) Comment: Bryan rodriguez GeneXpert (618) Ordering Provid er: JAYDE MENDOZA Report Released Date/Time: Jun 24, 2022 06:55 PM Reporting Lab: [facility] [address] [facility] [address] Performing Lab: [facility] [address] [facility] [address] COVID-19 (CEPHEID) Not Detected Not Dete cted Jun 24, 2022 [facility] COMPREHENSIVE METABOLIC Spec imen Type: PLASMA 07:29 PM PANEL+MG Comment: Cancel lation reported to: Rajni Giraldo RN on 06/24/22@2004 by [place]. Test result cancelled due to hemolysis interference in sample. Ordering Provid er: JAYDE MENDOZA Report Released Date/Time: Jun 24, 2022 06:55 PM Reporting Lab: [facility] [id number] Performing Lab: [facility] [address] CREATININE 1.3 H 0.7-1.2 UREA NITROGEN 19 [...] L >60 Jun 24, 2022 07:29 PM [facility] CBC & DIFF Specim en Type: BLOOD Comment: [place] d Platelets. Invitro artefact. No clinical significance. Platelet count may be higher than stated value. Plt count = 214 K-cmm Manual Differential Performed Ordering Provid er: JAYDE MENDOZA Report Released Date/Time: Jun 24, 2022 06:55 PM Reporting Lab: [facility] [phone] Performing Lab: [facility] [address] WBC 9.67 4.0-11.0 RBC 3.36 L 4.6-6.2 [...] 2021 11:52 /min mm[Hg] [facility] Jun 25, 98.0 F 59 103/65 19 /min 91 % 8 [place] 2021 05:23 /min mm[Hg] [facility] Jun 25, 98.3 F 58 110/70 18 /min 93 % 8 [place] 2021 04:41 /min mm[Hg] [facility] Jun 25, 5 [place] 2021 08:23 [facility] Jun 25, 99.4 F 73 115/71 16 /min 89 % [place] 2021 08:10 /min mm[Hg] [place] [place] AM [facility] Social History: Smoking Status (Most [...] 2022 01:30 PM VA-TOBACCO FORMER USER [facility] Tobacco Use History This section includes a history of the smoking, or tobacco- related health factors, that were collected on or before the date of the Encounter. The data comes from the [place] facility where the Encounter took place. Date/Time Smoking Status/Tobacco Use Comment [facility] Mar 05, 2022 01:30 PM VA-TOBACCO QUIT 1 TO < 5 YRS [facility] Jun 01, 2021 02:00 PM [facility] Dec 31, 2019 10:54 AM VA-TOBACCO FORMER USER [facility] Dec 31, 2019 10:54 AM VA-TOBACCO QUIT < 1 YEAR M [facility] March 23, 2019 09:53 AM VA-TOBACCO FORMER USER [facility] March 23, 2019 09:53 AM VA-TOBACCO QUIT < 1 YEAR M [facility] Jun 10, 2018 10:00 AM CURRENT TOBACCO USER [place] KRISTELLIS [facility] May 10, 2018 07:27 PM INPT TOBACCO COUNSELING [place] [facility] May 10, 2018 07:27 PM INPT TOBACCO USER LAWSONAPO GERDA [facility] Aug 29, 2017 09:55 AM FORMER TOBACCO USE <1Y [facility] May 26, 2017 10:51 PM INPT TOBACCO COUNSELING [place] [facility] May 26, 2017 10:51 PM INPT TOBACCO USER LAWSONAPO LIS [facility] May 03, 2017 09:34 PM INPT TOBACCO COUNSELING [place] [facility] May 03, 2017 09:34 PM INPT TOBACCO USER LAWSONAPO GERDA [facility] Sep 18, 2016 01:36 PM FORMER TOBACCO USE <1Y [facility] Aug 10, 2016 03:54 PM INPT TOBACCO USE - PT REFUSED [facility] Aug 01, 2016 06:48 PM INPT TOBACCO COUNSELING [place] [facility] Aug 01, 2016 06:48 PM INPT TOBACCO USER CAROLYNO GERDA [facility] Feb 08, 2015 09:57 AM CURRENT TOBACCO USER LAWSON JUAREZS [facility] Nov 29, 2013 10:37 AM CURRENT TOBACCO USER LAWSON JUAREZS [facility] Nov 26, 2013 11:09 AM PATIENT IS TOBACCO USER ANAID EPPSPOLDAVID [facility] Nov 27, 2012 12:12 PM CURRENT TOBACCO USER LAWSON JUAREZS [facility] Dec 27, 2011 09:44 AM CURRENT TOBACCO USER LAWSON JUAREZS [facility] Jan 22, 2011 02:38 PM CURRENT TOBACCO USER LAWSON JUAREZS [facility] Mar 13, 2010 12:48 PM CURRENT TOBACCO USER [facility] Advance Directives: All historical and current [...] Feb 25, 2018 ADVANCE DIRECTIVE AURORA MORALES [facility] Feb 24, 2018 ADVANCE DIRECTIVE DISCUSSION AURORA MORALES [facility] May 26, 2017 CLINICAL WARNING MAGO CONTRERAS [facility] May 03, 2017 CLINICAL WARNING SARIAH ENGLE [facility] Aug 10, 2016 CLINICAL WARNING ISABEL BARCENAS [facility] Aug 02, 2016 CLINICAL WARNING AURORA ALMAZAN [facility] Encounter Notes: All associated encounter notes This section contains the clinical notes associated to the Encounter. 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 Pt seen at OSH c/ plan DC to TCU but no pay options, pt arrived at ED for placement. Pt met bedside for PT Eval, sitting EOB talking to irma, in NAD, [place] Collar in place upon PT arrival. Pt reports doing well, pain in bilateral wrists and hands since fall, improved in BUE otherw ise. Pt has no other complaints. Pt is agreeable to PT Eval. Home Environment: Style: Apartment addition (In-law addition) att ached to children's house. Stairs: 3 step entry s/ rail, 5 steps down c/ 1 rail from house into attached addition. Layout: Bedroom Location: Lower Level Bathroom Location: Lower Level Home Accessibility Issues: Multiple stairs to e nter In-Law apt addition. Support System: -Lives c/ in 2 bedroom with family room & kitchen addition to children's house. Son & DIL c/ gran dkids live in house. -Planned Home Care Services for ADLs, initiated during stay at [facility] but not yet started. PLOF: Locomotion: Ambulatory for limited Community Distances (< 3 00 ft) Assistive Devices Ind s/ AD FWW Transfers: Independent ADLs: Modified Independent Physical Assist from for dressing 2/2 arth ritis. IADLs: Physical Assist from for all IADLs. Falls: Yes: Has fallen within the last 6 months. Additional Information: recent fall (intoxicate d) on 06/16. Plus 2 additional falls 2-3 weeks prior to 06/16 fall, 2 weeks prio r tripped over hose in garage (sober), and 1M prior fell in yard (intoxicated) . Pain: Location: PRADIP wrists and hands Intensity: At rest: /10. Diagnoses in [facility] that should be considered for participation/progress in therapy include: HTN, CAD, CKD, Atrial tachycardia, Afib c/ chronic anticoagulation, heearing loss, & h/o alcohol & cannabis abuse.. OBJECTIVE: Orientation: A&O x 4, vet responds appropriately to question s and conversation. Vitals: WNL - not recorded, RA, asymptomatic thr oughout session Sensation: Light touch sensation is intact in both lower e xtremities. Edema/Skin Integrity: Intact to exposed skin. Edema: 0, cachectic in appearance. Range of Motion: Both LE are within normal limits. MMT PRADIP Administrative Assistant Coordinator strength diminished. Pradip Shoulder flex /Abd <90 degrees. Both Lower Extremities >3/5 noted using AROM an d functional mobility (STS, bed mobility, & gait) FUNCTIONAL MOBILITY: Bed Mobility: Independent Transfers: Sit to Stand/Stand to Sit Independent Comment: c/ BUE use. Balance: Patient is able to sit EOB s/ support for 3+ mi n. Patient is able to stand s/ support for 1+ min. Ambulation: Patient ambulated - 70ft s/ AD c/ CGA & gait belt; - 70ft & 30ft c/ rollator & SBA. Description: unremarkable pattern s/ LOB & SOB c/ Rollator. Improved gait speed and stability with 4ww. . Gait Speed: <0.6 m/s (.4 - .8 m/s) Indicates limited community ambul ator and potential need for falls intervention. Education and demonstration provided regarding proper rollator use including ambulation, brakes, curb assist, sitting on rol lator to rest with rollator against stationary object, transfers a nd folding to load into vehicle. -Pt able to independently ambulate >50 ft using rollator without LOB -Pt able to independently manage brakes -Pt able to independently use curb assist -Pt able to independently transfer with device -Pt able to independently fold device -Pt instructed in adjusting rollator once recei lydia from prosthetics Stairs: Patient went up/down 5 steps with 1 rail using step-to pattern. Level of assist: CGA->SBA Falls Risk: Patient is High risk for falls. Injury Risk: Increased 2/2 Anti-coagulation medication Activity recommendations: Other: Patient to ambulate on sharma 3-5x /day c/ rollator & SBA of nursing; Ind with all transfers. Patient Education: Patient Education: Reviewed - Role of PT in inpatient setting, including ma intaining strength to allow for improved indep with functional mobility. Inc liza POC, Goals, & DC recs. - Instructed to ambulate c/ 4ww & SBA of germán cummings, 3-5x/day - Educated pt on his increased falls ri sk & told he may not be up without use of a walker & SBA of staff - Educated on importance of sobriety to improve balance and gait and reduce risk of falling. - Vet resting comfortably following session, sergio l light in reach, and all requested needs met. ASSESSMENT: Pt presents today with Ind transfers, ambulation and stair mobility. Pt is at baseline mobility level and would be safe to ret urn to home once medically stable. Pt is appropriate fo r standard rollator, PROS consult placed. Pt denies further questions or concerns. Pt has no further acute PT needs. Response to treatment: Good - full participant, no adverse events. Patient presents to Physical Therapy as: Mike cummings Clinical Decision Making was: Moderate Anticipated Function: Interrmittent Assist Prognosis: Fair with current life choices. Discharge recommendations: Home PLAN: D/c from acute PT services. Please see assessment paragraph for details and discharge recommendations. Patient indicates readiness to learn, verbalizes understanding, agreement and satisfac tion with the treatment plan. Denies further questions. /es/ KENNEY ARREAGA DPT PHYSICAL THERAPIST Signed: 06/25/2022 15:58
--- OUTSIDE RECORDS SUMMARY | 2022-07-04 09:15 | XMS_ITS ---
DAILY HOSPITALIZATION DATA [facility] Encounter Summary Created on:June 25, 2022 Patient:REGI MANTILLA Sex:Male :1950 Author Organization [facility] Address [address] [place] [address] Support Name Relationship Address Phone MADELIN MANTILLA Unavailable [address] [phone] [place] [address] MADELIN MANTILLA Unavailable [phone] [place] [address] DHAVAL MANTILLA Unavailable [address] [place] [address] Insurance Providers: All historical and current Section [...] MEDICARE MEDICARE PART Jul 18, PART B [id number] ANNALEE BUSTILLO (WNR) (M) B [id number] [phone] ,REGI MEDICARE MEDICARE PART Apr 17, PART A [id number] ANNALEE BRYANIENT (WNR) (M) A [phone] ,REGI Selected Encounter This section includes the information on record at [facility] for the Encounter. Date/Time Encounter Type Encounter Description Reason Provider Source Jun 25, 2022 03:13 Inpatient Visit DAILY HOSPITALIZATION DATA [facility] Encounter Template Text not used by [facility] Plan of Treatment: Future Appointments (+ 6 months) and Future Tests (+/- 45 days) The Plan of Treatment section includes future care activities for the patient from all [facility] treatmentfacilities. This section includes future appointments and future orders which are active, pending orscheduled.Future Appointments This section includes appointments that were scheduled to occur 6 months from the date of the Encounter, up to a maximum of 20 appointments. The data comes from all [facility] treatment facilities. Appointment Date/Time Appointment Type Appointment Facili ty Name Jul 12, 2022 09:20 AM AMBULATORY - SURGERY [facility] S Jul 19, 2022 07:00 AM AMBULATORY - NONE [facility] Jul 19, 2022 08:00 AM AMBULATORY - MEDICINE [facility] CS Jul 19, 2022 09:00 AM AMBULATORY - MEDICINE [facility] CS Jul 25, 2022 09:00 AM AMBULATORY - NONE [facility] Jul 25, 2022 10:30 AM AMBULATORY - NONE [facility] Jul 25, 2022 11:00 AM AMBULATORY - SURGERY [facility] S Jul 25, 2022 12:30 PM AMBULATORY - NONE [facility] Aug 05, 2022 11:00 AM AMBULATORY - NONE [facility] Nov 20, 2022 10:30 AM AMBULATORY - MEDICINE [facility] CS Nov 20, 2022 11:00 AM AMBULATORY - MEDICINE [facility] CS Nov 20, 2022 11:30 AM AMBULATORY - MEDICINE [facility] Active, [...] Laboratory - COVID-19 AND FLU/RSV DIAG [facility] AM Chemistry Order PANEL(CEPHEID) NASOPHARYNGEAL SWAB STAT WC ONCE Jun 24, 2022 06:55 Laboratory - EXTRA BLUE TUBE PLASMA WC [facility] PM Chemistry Order Jun 24, 2022 06:55 Laboratory - EXTRA GOLD GEL TUBE SERUM [facility] PM Chemistry Order Jun 24, 2022 06:55 Laboratory - EXTRA PURPLE TUBE BLOOD [facility] PM Chemistry Order WC Jun 24, 2022 06:55 Laboratory - EXTRA MINT TUBE PLASMA WC [facility] PM Chemistry Order Jun 28, 2022 04:57 Consult Order NEUROSURGERY OUTPT Cons [place] [facility] PM Life Manager's Choice Jun 28, 2022 05:00 Consult Order UROLOGY OUTPT Cons [place] [facility] PM Life Manager's Choice Jul 10, 2022 12:00 Laboratory - RHEUMATOLOGY CHEM PANEL [facility] AM Chemistry Order PLASMA SP ONCE Jul 10, 2022 12:00 Laboratory - RHEUMATOLOGY HEME PANEL [facility] AM Chemistry Order BLOOD SP ONCE Jul 25, 2022 10:30 Imaging - General CERVICAL SPINE 4 OR 5 [facility] AM Radiology Order VIEWS Lab Results: +/- [...] Jun 24, 2022 06:55 PM Reporting Lab: [facility] [address] [facility] [id number] Performing Lab: [facility] [id number] URINE COLOR YELLOW SPECIFIC GRAVITY 1.039 H [...] Jun 24, 2022 08:09 PM Reporting Lab: [facility] [address] [facility] [id number] Performing Lab: [facility] [address] [facility] [id number] AST/SGOT 19 <34 Jun 24, 2022 08:24 PM [facility] POTASSIUM Specim en Type: PLASMA No comment enter ed. Ordering Provid er: JAYDE MENDOZA Report Released Date/Time: Jun 24, 2022 08:09 PM Reporting Lab: [facility] [address] [facility] [address] Performing Lab: [facility] [address] [facility] [address] POTASSIUM 4.9 3.5-5.1 Jun 24, 2022 08:24 PM [facility] PROTEIN,TOTAL Specim en Type: PLASMA No comment enter ed. Ordering Provid er: JAYDE MENDOZA Report Released Date/Time: Jun 24, 2022 08:09 PM Reporting Lab: [facility] [address] [facility] [address] Performing Lab: [facility] [address] [facility] [address] PROTEIN,TOTAL 6.8 6.0-8.3 Jun 24, 2022 07:40 [facility] PROTHROMBIN TIME/INR Spec imen Type: PLASMA PM No comment enter ed. Ordering Provid er: JAYDE MENDOZA Report Released Date/Time: Jun 24, 2022 06:55 PM Reporting Lab: [facility] [address] Performing Lab: [facility] [address] .INR 1.1 0.8-1.1 .PT 12.1 9.4-12.5 Jun 24, 2022 07:32 [facility] COVID-19 DIAGNOSTIC Speci men Type: NASOPHARYNGEAL PM PANEL (CEPHEID) Comment: Cephei d GeneXpert (618) Ordering Provid er: JAYDE MENDOZA Report Released Date/Time: Jun 24, 2022 06:55 PM Reporting Lab: [facility] [address] [facility] [address] [facility] [address] COVID-19 (CEPHEID) Not Detected Not Dete cted Jun 24, 2022 [facility] COMPREHENSIVE METABOLIC Spec imen Type: PLASMA 07:29 PM PANEL+MG Comment: Cancel lation reported to: Rajni Giraldo RN on 06/24/22@2004 by [place]. Test result cancelled due to hemolysis interference in sample. Ordering Provid er: JAYDE MENDOZA Report Released Date/Time: Jun 24, 2022 06:55 PM Reporting Lab: [facility] [address] [facility] [address] Performing Lab: [facility] [address] CREATININE 1.3 H 0.7-1.2 UREA NITROGEN 19 [...] L >60 Jun 24, 2022 07:29 PM [facility] CBC & DIFF Specim en Type: BLOOD Comment: [place] d Platelets. Invitro artefact. No clinical significance. Platelet count may be higher than stated value. Plt count = 214 K-cmm Manual Differential Performed Ordering Provid er: JAYDE MENDOZA Report Released Date/Time: Jun 24, 2022 06:55 PM Reporting Lab: [facility] [address] Performing Lab: [facility] [address] WBC 9.67 4.0-11.0 RBC 3.36 L 4.6-6.2 [...] % 0 [place] 11:52 /min mm[Hg] [facility] Jun 25, 98.0 F 59 103/65 19 /min 91 % 8 [place] 2021 05:23 /min mm[Hg] [facility] Jun 25, 98.3 F 58 110/70 18 /min 93 % 8 [place] 2021 04:41 /min mm[Hg] [facility] Jun 25, 5 [place] 2021 08:23 [facility] Jun 25, 99.4 F 73 115/71 16 /min 89 % [place] 2021 08:10 /min mm[Hg] [facility] Social History: Smoking Status (Most current) and Tobacco Use (All prior to encounter date) This section includes the most current, and the historical, smoking and tobacco-related health factors from the [facility] facility where the Encounter took place.Current Smoking Status This section includes the most current smoking, or tobacco-related health factor, from the [facility] facility where the Encounter took place. Date/Time Current Smoking Status Comment Facility Mar 05, 2022 01:30 PM VA-TOBACCO FORMER USER [facility] Tobacco Use History This section includes a history of the smoking, or tobacco- related health factors, that were collected on or before the date of the Encounter. The data comes from the [facility] facility where the Encounter took place. Date/Time Smoking Status/Tobacco Use Comment Facil it Mar 05, 2022 01:30 PM VA-TOBACCO QUIT 1 TO < 5 YRS [facility] Jun 01, 2021 02:00 PM VA-TOBACCO NEVER USED [place] [facility] Dec 31, 2019 10:54 AM VA-TOBACCO FORMER USER [facility] Dec 31, 2019 10:54 AM VA-TOBACCO QUIT < 1 YEAR [place] [facility] March 23, 2019 09:53 AM VA-TOBACCO FORMER USER [facility] March 23, 2019 09:53 AM VA-TOBACCO QUIT < 1 YEAR [place] [facility] Jun 10, 2018 10:00 AM CURRENT TOBACCO USER [place] [facility] May 10, 2018 07:27 PM IN[place] TOBACCO COUNSELING [place] [facility] May 10, 2018 07:27 PM INPT TOBACCO USER [place] [facility] Aug 29, 2017 09:55 AM FORMER TOBACCO USE <1Y [facility] May 26, 2017 10:51 PM IN[place]BAC[place] COUNSELING [place] [facility] May 26, 2017 10:51 PM INPT TOBACCO USER [place] [facility] May 03, 2017 09:34 PM INPT TOBACCO COUNSELING [place] [facility] May 03, 2017 09:34 PM INPT TOBACCO USER GONZALES LORENZ [facility] Sep 18, 2016 01:36 PM FORMER TOBACCO USE <1Y [facility] Aug 10, 2016 03:54 PM INPT TOBACCO USE - PT REFUSED [facility] Aug 01, 2016 06:48 PM [facility] Aug 01, 2016 06:48 PM INPT TOBACCO USER [facility] Feb 08, 2015 09:57 AM CURRENT TOBACCO USER [facility] Nov 29, 2013 10:37 AM CURRENT TOBACCO USER [facility] Nov 26, 2013 11:09 AM PATIENT [facility]AC[facility] Nov 27, 2012 12:12 PM CURRENT TOBACCO USER [facility]RI[facility]Chel[facility] Dec 27, 2011 09:44 AM CURRENT TOBACCO USER [facility] Jan 22, 2011 02:38 PM CURRENT TOBACCO USER [facility] Mar 13, 2010 12:48 PM CURRENT TOBACCO USER [facility] Advance Directives: All historical and current Section Date Range: From patient's date of to the date document was created. This section includes ALL of a patient's completed or amended [facility] Advance and Rescinded Directives. The entries below indicate that a directive exists for the patient, but an actual copy is not included with this document. The data comes from all [facility] facilities. Date Advance Directives Provider Source Feb [...]
--- OUTSIDE RECORDS SUMMARY | 2022-07-04 09:16 | XMS_ITS | Encounter Summary ---
:1950 Author Organization Department [facility] Address [address] [place] [address] Support Name Relationship Address Phone MADELIN MANTILLA Unavailable [phone] [place] [address] MADELIN MANTILLA Unavailable [phone] [place] [address] DHAVAL MANTILLA Unavailable [address] [place] [address] Insurance Providers: All historical and current Section [...] MEDICARE MEDICARE PART Jul 18, PART B [id number] ANNALEE Cardenas ATIENT (WNR) (M) B [id number] [phone] ,REGI MEDICARE MEDICARE PART Apr 17, PART A [id number] ANNALEE Cardenas ATIENT (WNR) (M) A [id number] [phone] ,REGI Selected Encounter This section includes the information on record at [place] for the Encounter. Date/Time Encounter Type Encounter Reason Provider Source Description Jun 25, 2022 OT EVAL LOW OCCUPATIONAL ICD-10-CM Z73.6 BALDEMAR TONG 03:46 PM COMPLEX 30 MIN THERAPY Limitation of Ann NAYAK activities due to disability with Provider Comments: Limitation of activities due to disability [facility] Encounter Template Text not used by [facility] Assessments - Encounter Diagnoses This section includes the primary and secondary diagnoses documented for the Encounter. Date/Time Primary/Secondary Diagnosis Name Provider Source Diagnosis Jun 25, 2022 PRIMARY Limitation of BALDEMAR TONG [facility] 03:50 PM activities due Ann NAYAK HCS to disability Plan of Treatment: Future Appointments (+ 6 months) and Future Tests (+/- 45 days) The Plan of Treatment section includes future care activities for the [place] [facility] [place] [facility] [place] This section includes future appointments and future orders which are active, pending orscheduled.Future Appointments This section includes appointments that were scheduled to occur 6 months from the date of the Encounter, up to a maximum of 20 appointments. The data comes from all [place] treatment [facility]. Appointment Date/Time Appointment Type Appointment Facili ty Name Jul 12, 2022 09:20 AM AMBULATORY - SURGERY [facility] S Jul 19, 2022 07:00 AM AMBULATORY - NONE [facility] Jul 19, 2022 08:00 AM AMBULATORY - MEDICINE [facility] CS Jul 19, 2022 09:00 AM AMBULATORY - MEDICINE [facility] Jul 25, 2022 09:00 AM AMBULATORY - NONE [facility] Jul 25, 2022 10:30 AM AMBULATORY - NONE [facility] Jul 25, 2022 11:00 AM AMBULATORY - SURGERY [facility] S Jul 25, 2022 12:30 PM AMBULATORY - NONE [facility] Aug 05, 2022 11:00 AM AMBULATORY - NONE [facility] Nov 20, 2022 10:30 AM AMBULATORY - MEDICINE [facility] Nov 20, 2022 11:00 AM AMBULATORY - MEDICINE [facility] Nov 20, 2022 11:30 AM AMBULATORY - MEDICINE [facility] Active, Pending, and Scheduled Orders This section includes a listing of several types of active, pending, and scheduled orders, including clinic medications orders, diagnostic test orders, procedure orders and consult orders; where the start date of the order is 45 days before the date of the Encounter or 45 days after the date of the Encounter. The data comes from all [facility]. Test Date/Time Test Type Test Details Facility Name May 15, 2022 12:00 Laboratory - COVID-19 AND FLU/RSV DIAG [facility] AM Chemistry Order PANEL(CEPHEID) NASOPHARYNGEAL SWAB STAT ONCE Jun 24, 2022 06:55 Laboratory - EXTRA BLUE TUBE PLASMA WC [facility] PM Chemistry Order Jun 24, 2022 06:55 Laboratory - EXTRA GOLD GEL TUBE SERUM [facility] PM Chemistry Order Jun 24, 2022 06:55 Laboratory - EXTRA PURPLE TUBE BLOOD [facility] PM Chemistry Order Jun 24, 2022 06:55 Laboratory - EXTRA MINT TUBE PLASMA WC [place] [facility] PM Chemistry Order Jun 28, 2022 04:57 Consult Order NEUROSURGERY OUTPT Cons LAWSON ADAME [facility] PM Home Care Manager's Choice Jun 28, 2022 05:00 Consult Order UROLOGY OUTPT Cons ZEINAB Merlos [facility] PM Home Care Manager's Choice Jul 10, 2022 12:00 Laboratory - RHEUMATOLOGY CHEM PANEL [facility] AM Chemistry Order PLASMA SP ONCE Jul 10, 2022 12:00 Laboratory - RHEUMATOLOGY HEME PANEL [facility] AM Chemistry Order BLOOD SP ONCE Jul 25, 2022 10:30 Imaging - General CERVICAL SPINE 4 OR 5 [facility] AM Radiology Order VIEWS Lab Results: +/- 30 days of the encounter This section includes the Chemistry and Hematology Lab Results on record with [place] for the patient. Radiology Reports and Pathology Reports are provided separately, in subsequent sections.Lab Results This section contains the Chemistry/Hematology Results that were resulted 30 days before or 30 daysafter the date of the Encounter. Date/Time Source Result Type Result - Unit Interpretation Reference Range Comment Jun 24, 2022 09:29 PM [facility] URINALYSIS Specim en Type: URINE No comment enter ed. Ordering Provid er: JAYDE MENDOZA Report Released Date/Time: Jun 24, 2022 06:55 PM Reporting Lab: [facility] [address] Performing Lab: [facility] [address] URINE COLOR YELLOW SPECIFIC GRAVITY 1.039 H [...] 25 NEGATIVE Jun 24, 2022 08:24 PM [facility] AST/SGOT Specim en Type: PLASMA No comment enter ed. Ordering Provid er: JAYDE MENDOZA Report Released Date/Time: Jun 24, 2022 08:09 PM Reporting Lab: [facility] [address] Performing Lab: [facility] [address] AST/SGOT 19 <34 Jun 24, 2022 08:24 PM [facility] POTASSIUM Specim en Type: PLASMA No comment enter ed. Ordering Provid er: JAYDE MENDOZA Report Released Date/Time: Jun 24, 2022 08:09 PM Reporting Lab: [facility] [address] [facility] [address] Performing Lab: [facility] [address] [facility] [address] POTASSIUM 4.9 3.5-5.1 Jun 24, 2022 08:24 PM [facility] PROTEIN,TOTAL Specim en Type: PLASMA No comment enter ed. Ordering Provid er: JAYDE MENDOZA Report Released Date/Time: Jun 24, 2022 08:09 PM Reporting Lab: [facility] [address] [facility] [address] Performing Lab: [facility] [address] [facility] [address] PROTEIN,TOTAL 6.8 6.0-8.3 Jun 24, 2022 07:40 [facility] PROTHROMBIN TIME/INR Spec imen Type: PLASMA PM No comment enter ed. Ordering Provid er: JAYDE MENDOZA Report Released Date/Time: Jun 24, 2022 06:55 PM Reporting Lab: [facility] [address] [facility] [address] Performing Lab: [facility] [address] [facility] [address] .INR 1.1 0.8-1.1 .PT 12.1 9.4-12.5 Jun 24, 2022 07:32 [facility] COVID-19 DIAGNOSTIC Speci men Type: NASOPHARYNGEAL PM PANEL (CEPHEID) Comment: Bryan rodriguez GeneXpert (618) Ordering Provid er: JAYDE MENDOZA Report Released Date/Time: Jun 24, 2022 06:55 PM Reporting Lab: [facility] [address] [facility] [address] Performing Lab: [facility] [address] [facility] [address] COVID-19 (CEPHEID) Not Detected Not Dete cted Jun 24, 2022 [facility] COMPREHENSIVE METABOLIC Spec imen Type: PLASMA 07:29 PM PANEL+MG Comment: Cancel lation reported to: Rajni Giraldo RN on 06/24/22@2004 by [place]. Test result cancelled due to hemolysis interference in sample. Ordering Provid er: JAYDE MENDOZA Report Released Date/Time: Jun 24, 2022 06:55 PM Reporting Lab: [facility] [address] Performing Lab: [facility] [address] CREATININE 1.3 H 0.7-1.2 UREA NITROGEN 19 [...] L >60 Jun 24, 2022 07:29 PM [facility] CBC & DIFF Specim en Type: BLOOD Comment: [place] d Platelets. Invitro artefact. No clinical significance. Platelet count may be higher than stated value. Plt count = 214 K-cmm Manual Differential Performed Ordering Provid er: JAYDE MENDOZA Report Released Date/Time: Jun 24, 2022 06:55 PM Reporting Lab: [facility] [address] Performing Lab: [facility] [address] WBC 9.67 4.0-11.0 RBC 3.36 L 4.6-6.2 [...] 2021 11:52 /min mm[Hg] [facility] Jun 25, 98.0 F 59 103/65 19 /min 91 % 8 [place] 2021 05:23 /min mm[Hg] [facility] Jun 25, 98.3 F 58 110/70 18 /min 93 % 8 [place] 2021 04:41 /min mm[Hg] [facility] Jun 25, 5 [place] 2021 08:[address] [place] [facility] [address] [facility] Jun 25, 99.4 F 73 115/71 16 /min 89 % [place] 2021 08:10 /min mm[Hg] [place] [facility] Social History: Smoking Status (Most current) and Tobacco Use (All prior to encounter date) This section includes the most current, and the historical, smoking and tobacco-related health factors from the [place] facility where the Encounter took place.Current Smoking Status This section includes the most current smoking, or tobacco-related health factor, from the [place] facility where the Encounter took place. Date/Time Current Smoking Status Comment Facility Mar 05, 2022 01:30 PM VA-TOBACCO FORMER USER [facility] Tobacco Use History This section includes a history of the smoking, or tobacco- related health factors, that were collected on or before the date of the Encounter. The data comes from the [place] facility where the Encounter took place. Date/Time Smoking Status/Tobacco Use Comment [facility] Mar 05, 2022 01:30 PM VA-TOBACCO QUIT 1 TO < 5 YRS [facility] Jun 01, 2021 02:00 PM [facility]TOBACCO [facility]ED [facility] Dec 31, 2019 10:54 AM VA-TOBACCO FORMER USER [facility] Dec 31, 2019 10:54 AM VA-TOBACCO QUIT < 1 YEAR M [facility] March 23, 2019 09:53 AM VA-TOBACCO FORMER USER [facility] March 23, 2019 09:53 AM VA-TOBACCO QUIT < 1 YEAR M [facility] Jun 10, 2018 10:00 AM CURRENT TOBACCO USER [facility] [facility] May 10, 2018 07:27 PM INPT TOBACCO COUNSELING [place] [facility] May 10, 2018 07:27 PM INPT TOBACCO USER CAROLYNO GERDA [facility] Aug 29, 2017 09:55 AM FORMER TOBACCO USE <1Y [facility] May 26, 2017 10:51 PM INPT TOBACCO COUNSELING [place] [facility] May 26, 2017 10:51 PM INPT TOBACCO USER LAWSONAPO [place] [facility] May 03, 2017 09:34 PM [facility] May 03, 2017 09:34 PM INPT TOBACCO USER LAWSONAPO GERDA [facility] Sep 18, 2016 01:36 PM FORMER TOBACCO USE <1Y [facility] Aug 10, 2016 03:54 PM INPT TOBACCO USE - PT REFUSED [facility] Aug 01, 2016 06:48 PM [facility] Aug 01, 2016 06:48 PM INPT TOBACCO USER CAROLYNO [facility] Feb 08, 2015 09:57 AM CUR[facility] Nov 29, 2013 10:37 AM CURRENT [facility]AC[facility] USER [facility] Nov 26, 2013 11:09 AM PATIENT IS TOBACCO USER [facility] Nov 27, 2012 12:12 PM CURRENT TOBACCO USER [facility] Dec 27, 2011 09:44 AM CURRENT [facility]AC[facility] Jan 22, 2011 02:38 PM CURRENT [facility]AC[facility]ER [facility] Mar 13, 2010 12:48 PM CURRENT [facility]ACCO [facility]ER [facility] Advance Directives: All historical and current Section Date Range: From patient's date of to the date document was created. This section includes ALL of a patient's completed or amended [place] Advance and Rescinded Directives. The entries below indicate that a directive exists for the patient, but an actual copy is not included with this document. The data comes from all [place] facilities. Date Advance Directives Provider Source Feb 25, 2018 ADVANCE DIRECTIVE AURORA MORALES [facility] Feb 24, 2018 ADVANCE DIRECTIVE DISCUSSION AURORA MORALES [facility] May 26, 2017 CLINICAL WARNING MAGO CONTRERAS [facility] May 03, 2017 CLINICAL WARNING SARIAH ENGLE [facility] Aug 10, 2016 CLINICAL WARNING ISABEL BARCENAS [facility] Aug 02, 2016 CLINICAL WARNING AURORA ALMAZAN [facility] Encounter Notes: All associated encounter notes This section contains the clinical notes associated to the Encounter. Date/Time Encounter Note(s) Provider Source Jun 25, 2022 03:46 PM OCCUPATIONAL THERAPY CONSULT: RAMSEY TONG [facility] LOCAL TITLE: OCCUPATIONAL THERAPY CONSULT APRIL Juarez STANDARD TITLE: OCCUPATIONAL THERAPY CONSULT DATE OF NOTE: JUN 25, 2022@15:46 ENTRY DATE: JUN 25, 2022@15:46:33 AUTHOR: ASHA TONG AND EXP COSIGNER: URGENCY: STATUS: COMPLETED OCCUPATIONAL THERAPY EVALUATION NOTE Referring provider: BAL [...] consulted for assessment and treatment. At baseline, manohar lives in a home with his and son. reported that he was IND in I/ADLs, however received assistance with tying shoes, buttoning his shirts and other fine motor tasks. Following assessment, presents below due to deficits in decreased ROM of R shoulder, and decreas ed strength in bilateral wrists/hands, pain, weight-bearing precautions, defici ts in static/dynamic standing balance, and impulsivity impacting ADL/IADL safety and in dependence. able to complete functional transfers, ambulation, toile ting with SBA<>CGA. Vet demonstrating need for CGA b alance correction on several occasions during static standing and functional transfers. Vet has fair rehab potential on this date, and would benefit from inpt OT services prior to discharging to [facility]. 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 Denies fur ther questions. OCCUPATIONAL THERAPY EVALUATION COMPLEXITY Identifying and reporting [...] necessary to enable completion of evaluation component. *For full evaluation, please read OT CHANDRA LUATION NOTE dated 06/25/2022 written by Brandin Bingham OT Student. Emergency Man agrees with do cumrubio carrillo note. In-person supervision provided throughout. /mikal/ ASHA TONG MS, OTR/L OCCUPATIONAL THERAPIST Signed: 06/25/2022 15:50
--- OUTSIDE RECORDS SUMMARY | 2022-07-04 09:16 | XMS_ITS | Encounter Summary ---
:1950 Author Organization [facility] Address [address] [place] [address] Support Name Relationship Address Phone MADELIN MANTILLA Unavailable [phone] [place] [address] MADELIN MANTILLA Unavailable [address] [phone] [place] [address] DHAVAL MANTILLA Unavailable [address] [place] [address] Insurance Providers: All historical and current Section [...] MEDICARE MEDICARE PART Jul 18, PART B [id number] ANNALEE BRYANIENT (WNR) (M) B [id number] [phone] ,REGI MEDICARE MEDICARE PART Apr 17, PART A [id number] ANNALEE Cardenas ATIENT (WNR) (M) A [phone] ,REGI Selected Encounter This section includes the information on record at NE for the Encounter. Date/Time Encounter Type Encounter Description Reason Provider Source Jun 25, 2022 04:02 PM Inpatient Visit GENERAL SURGERY IHE Encounter Template Text not used by NE Plan of Treatment: Future Appointments (+ 6 months) and Future Tests (+/- 45 days) The Plan of Treatment section includes future care activities for the patient from all NE treatmentfacilities. This section includes future appointments and future orders which are active, pending orscheduled.Future Appointments This section includes appointments that were scheduled to occur 6 months from the date of the Encounter, up to a maximum of 20 appointments. The data comes from all NE treatment facilities. Appointment Date/Time Appointment Type Appointment Facili ty Name Jul 12, 2022 09:20 AM AMBULATORY - SURGERY [facility] Jul 19, 2022 07:00 AM AMBULATORY - NONE [facility] Jul 19, 2022 08:00 AM [facility] Jul 19, 2022 09:00 AM AMBULATORY - MEDICINE [facility] Jul 25, 2022 09:00 AM AMBULATORY - NONE [facility] Jul 25, 2022 10:30 AM AMBULATORY - NONE [facility] Jul 25, 2022 11:00 AM AMBULATORY - SURGERY [facility] Jul 25, 2022 12:30 PM AMBULATORY - NONE [facility] Aug 05, 2022 11:00 AM AMBULATORY - NONE [facility] Nov 20, 2022 10:30 AM AMBULATORY - MEDICINE [facility] Nov 20, 2022 11:00 AM AMBULATORY - MEDICINE [facility] Nov 20, 2022 11:30 AM AMBULATORY - MEDICINE [facility] Active, Pending, and Scheduled Orders This section includes a listing of several types of active, pending, and scheduled orders, including clinic medications orders, diagnostic test orders, procedure orders and consult orders; where the start date of the order is 45 days before the date of the Encounter or 45 days after the date of the Encounter. The data comes from all NE treatment [facility]. Test Date/Time Test Type Test Details Facility Name May 15, 2022 12:00 Laboratory - COVID-19 AND FLU/RSV DIAG [facility] AM Chemistry Order PANEL(CEPHEID) NASOPHARYNGEAL SWAB STAT WC ONCE Jun 24, 2022 06:55 Laboratory - EXTRA BLUE TUBE PLASMA WC [facility] PM Chemistry Order Jun 24, 2022 06:55 Laboratory - EXTRA GOLD GEL TUBE SERUM [facility] PM Chemistry Order Jun 24, 2022 06:55 Laboratory - EXTRA PURPLE TUBE BLOOD [facility] PM Chemistry Order WC Jun 24, 2022 06:55 Laboratory - EXTRA MINT TUBE PLASMA WC [facility] PM Chemistry Order Jun 28, 2022 04:57 Consult Order NEUROSURGERY OUTPT Cons [place] [facility] PM Oyster Bed Worker's Choice Jun 28, 2022 05:00 Consult Order UROLOGY OUTPT [place] [facility] PM Oyster Bed Worker's Choice Jul 10, 2022 12:00 Laboratory - RHEUMATOLOGY CHEM PANEL [facility] AM Chemistry Order PLASMA SP ONCE Jul 10, 2022 12:00 Laboratory - RHEUMATOLOGY HEME PANEL [facility] AM Chemistry Order BLOOD SP ONCE Jul 25, 2022 10:30 Imaging - General CERVICAL SPINE [address] [facility] AM Radiology Order VIEWS Lab Results: +/- 30 days of the encounter This section includes the Chemistry and Hematology Lab Results on record with NE for the patient. Radiology Reports and Pathology Reports are provided separately, in subsequent sections.Lab Results This section contains the Chemistry/Hematology Results that were resulted 30 days before or 30 daysafter the date of the Encounter. Date/Time Source Result Type Result - Unit Interpretation Reference Range Comment Jun 24, 2022 09:29 PM [facility] URINALYSIS Specim en Type: URINE No comment enter ed. Ordering Provid er: JAYDE MEDNOZA Report Released Date/Time: Jun 24, 2022 06:55 PM Reporting Lab: [facility] [address] [facility] [address] Performing Lab: [facility] [address] [facility] [address] URINE COLOR YELLOW SPECIFIC GRAVITY 1.039 H [...] 25 NEGATIVE Jun 24, 2022 08:24 PM [facility] AST/SGOT Specim en Type: PLASMA No comment enter ed. Ordering Provid er: JAYDE MENDOZA Report Released Date/Time: Jun 24, 2022 08:09 PM Reporting Lab: [facility] [address] [facility] [address] Performing Lab: [facility] [address] [facility] [address] AST/SGOT 19 <34 Jun 24, 2022 08:24 PM [facility] POTASSIUM Specim en Type: PLASMA No comment enter ed. Ordering Provid er: JAYDE MENDOZA Report Released Date/Time: Jun 24, 2022 08:09 PM Reporting Lab: [facility] [address] [facility] [address] Performing Lab: [facility] [address] [facility] [address] POTASSIUM 4.9 3.5-5.1 Jun 24, 2022 08:24 PM [facility] PROTEIN,TOTAL Specim en Type: PLASMA No comment enter ed. Ordering Provid er: JAYDE MENDOZA Report Released Date/Time: Jun 24, 2022 08:09 PM Reporting Lab: [facility] [address] [facility] [address] Performing Lab: [facility] [address] [facility] [address] PROTEIN,TOTAL 6.8 6.0-8.3 Jun 24, 2022 07:40 [facility] PROTHROMBIN TIME/INR Spec imen Type: PLASMA PM No comment enter ed. Ordering Provid er: JAYDE MENDOZA Report Released Date/Time: Jun 24, 2022 06:55 PM Reporting Lab: [facility] [address] Performing Lab: [facility] [address] .INR 1.1 0.8-1.1 .PT 12.1 9.4-12.5 Jun 24, 2022 07:32 [facility] COVID-19 DIAGNOSTIC Speci men Type: NASOPHARYNGEAL PM PANEL (CEPHEID) Comment: Cephei d GeneXpert (618) Ordering Provid er: JAYDE MENDOZA Report Released Date/Time: Jun 24, 2022 06:55 PM Reporting Lab: [facility] [address] [facility] [address] Performing Lab: [facility] [address] COVID-19 (CEPHEID) Not Detected Not Dete cted Jun 24, 2022 [facility] COMPREHENSIVE METABOLIC Spec imen Type: PLASMA 07:29 PM PANEL+MG Comment: Cancel lation reported to: Rajni Giraldo RN on 06/24/22@2004 by Test result cancelled due to hemolysis interference in sample. Ordering Provid er: JAYDE MENDOZA Report Released Date/Time: Jun 24, 2022 06:55 PM Reporting Lab: [facility] [address] [facility] [address] Performing Lab: [facility] [address] CREATININE 1.3 H 0.7-1.2 UREA NITROGEN 19 [...] L >60 Jun 24, 2022 07:29 PM [facility] CBC & DIFF Specim en Type: BLOOD Comment: [place] d Platelets. Invitro artefact. No clinical significance. Platelet count may be higher than stated value. Plt count = 214 K-cmm Manual Differential Performed Ordering Provid er: JAYDE MENDOZA Report Released Date/Time: Jun 24, 2022 06:55 PM Reporting Lab: [facility] [address] [facility] [address] Performing Lab: [facility] [address] WBC 9.67 4.0-11.0 RBC 3.36 L 4.6-6.2 [...] % 0 [place] 2021 11:52 /min mm[Hg] [facility] Jun 25, 98.0 F 59 103/65 19 /min 91 % 8 [place] 2021 05:23 /min mm[Hg] [facility] Jun 25, 98.3 F 58 110/70 18 /min 93 % 8 [place] 2021 04:41 /min mm[Hg] [facility] Jun 25, 5 [place] 2021 08:23 [facility] Jun 25, 99.4 F 73 115/71 16 /min 89 % [place] 2021 08:10 /min mm[Hg] [facility] Social History: Smoking Status (Most current) and Tobacco Use (All prior to encounter date) This section includes the most current, and the historical, smoking and tobacco-related health factors from the NE facility where the Encounter took place.Current Smoking Status This section includes the most current smoking, or tobacco-related health factor, from the NE facility where the Encounter took place. Date/Time Current Smoking Status Comment Facility Mar 05, 2022 01:30 PM VA-TOBACCO FORMER USER [facility] Tobacco Use History This section includes a history of the smoking, or tobacco- related health factors, that were collected on or before the date of the Encounter. The data comes from the NE facility where the Encounter took place. Date/Time Smoking Status/Tobacco Use Comment Facil it Mar 05, 2022 01:30 PM VA-TOBACCO QUIT 1 TO < 5 YRS [facility] Jun 01, 2021 02:00 PM VA-TOBACCO NEVER USED [place] [facility] Dec 31, 2019 10:54 AM VA-TOBACCO FORMER USER [facility] Dec 31, 2019 10:54 AM VA-TOBACCO QUIT < 1 YEAR [place] [facility] March 23, 2019 09:53 AM VA-TOBACCO FORMER USER [facility] March 23, 2019 09:53 AM VA-TOBACCO QUIT < 1 YEAR [place] [facility] Jun 10, 2018 10:00 AM CURRENT TOBACCO USER [place] [facility] May 10, 2018 07:27 PM IN[place] TOBACCO COUNSELING [place] [facility] May 10, 2018 07:27 PM INPT TOBACCO USER [place] [facility] Aug 29, 2017 09:55 AM FORMER TOBACCO USE <1Y [facility] May 26, 2017 10:51 PM INPT TOBACCO COUNSELING [place] [facility] May 26, 2017 10:51 PM INPT TOBACCO USER [place] [facility] May 03, 2017 09:34 PM INPT TOBACCO COUNSELING [place] [facility] May 03, 2017 09:34 PM INPT TOBACCO USER [place] GERDA [facility] Sep 18, 2016 01:36 PM [facility]AC[facility]Y [facility] Aug 10, 2016 03:54 PM INPT TOBACCO USE - PT REFUSED [facility] Aug 01, 2016 06:48 PM [place] [facility] [facility] Aug 01, 2016 06:48 PM INPT TOBACCO USER [facility] Feb 08, 2015 09:57 [address] [facility] Nov 29, 2013 10:37 AM [address] [facility] Nov 26, 2013 11:09 AM PATIENT IS TOBACCO USER [place] [facility] Nov 27, 2012 12:12 [address] [facility] Dec 27, 2011 09:44 AM CURRENT TOBACCO USER [facility] Jan 22, 2011 02:38 PM [address] [facility]BACCO USER [facility] Mar 13, 2010 12:48 [address]ACCO USER [facility] Advance Directives: All historical and current Section Date Range: From patient's date of to the date document was created. This section includes ALL of a patient's completed or amended NE Advance and Rescinded Directives. The entries below indicate that a directive exists for the patient, but an actual copy is not included with this document. The data comes from all NE facilities. Date Advance Directives Provider Source Feb 25, 2018 ADVANCE DIRECTIVE AURORA MORALES [facility] Feb 24, 2018 ADVANCE DIRECTIVE DISCUSSION AURORA MORALES [facility] May 26, 2017 CLINICAL WARNING MAGO CONTRERAS [facility] May 03, 2017 CLINICAL WARNING SARIAH ENGLE [facility] Aug 10, 2016 CLINICAL WARNING ISABEL BARCENAS [facility] Aug 02, 2016 CLINICAL WARNING AURORA ALMAZAN [facility] Encounter Notes: All associated encounter notes This section contains the clinical notes associated to the Encounter. Date/Time Encounter Note(s) Provider Source Jun 25, 2022 04:03 PM SOCIAL WORK NOTE: EDWARDO BROWN [facility] LOCAL TITLE: SOCIAL WORK PROGRESS NOTE STANDARD TITLE: SOCIAL WORK NOTE DATE OF NOTE: JUN 25, 2022@16:03 ENTRY DATE: JUN 25, 2022@16:03:09 AUTHOR: EDWARDO BROWN EXP COSIGNER: URGENCY: STATUS: COMPLETED SW SOCIAL WORK PROGRESS NOTE Has ADDENDA * Shaft Headman will be following patient for SW needs an d concerns while is inpatient on sharma 2L. Shaft Headman attempted to visit with patient at bedside however patient was asleep and did not arouse to his name. Per chart review, patient's son Grayson is his h ealthcare agent and his [id number] Annamaria is his alternate healt h care agent. Patient has been seen by OT. Shaft Headman awaiting PT recommendations. Per chart review, patient has Medicare A & B, which could cover 20 days of STR prior to copays if patient is recommended by PT/ OT for STR. SW will attempt to follow-up with patient tomorr ow regarding patient's needs once PT recommendations are available. ----- Per 06/24/22 H&P: Chief Complaint: need a rehab place History of Present Illness (HPI) - 72 years old MALE admitted for: 68 year old MALE with PMH significant for CAD s/ p stent x 3 (prox LCX, distal LCX, OM2) in 07/2016, alcohol use disorder, CKD, seropositive rheumatoid arthritis and pAfib on apixaban with [facility]ical fall in the setting of alcohol intoxication who was discharged from [facility] on 06/24/2022 and presented to [facility] for assistance finding a TCU. Patient was discharged from [facility] today . Spent a week in [facility] for management (06/18-06/24/2022) of mechani sergio fall related injuries and symptom, found to have central cord syndrome and C5 fract ure. History provided by patient and his daughter, Elizabeth hale at bedside. Had a fall at 06/17/22 at his home. He lives with his elderly wi fe at their apartment [place]. Both him and his were drank. Marcin partida doesn't remember of the fall other than being down and head bleeding, m ight have hit head on a register. Has long history of alcohol u se disorder and continues to drink 5-6 drinks per day. Post-fall new symptoms: neck landry n, profound weakness of upper extremity, hands feeling numb, mild weakness of the lower extremity, stuterring, and urinary retention. Presented to [facility] on 06/17, had imaging d one (unclear what imaging modalities he had there) and was sent home. Next day, he returned back to the ED for persistent symptoms and was transferred to [facility]. No records available in [facility] and doesn't have discharge pack age with him other than discharge meds and brief patient instructions. P er patient's daughter, he was suppose to be discharged transitional ca res for rehab as he is unsteady on his feet, can't perform ADLs at home.Family can't af alonzo the out pocket cost for TCU. He was discharged with indewelling catheter and c-collar to home. /mikal/ BALDO [employer]AL [employer] Signed: 06/25/2022 16:13 Receipt Acknowledged By: 06/27/2022 08:13 /mikal/ JACI AGUDELO TRUCKING SUPERVISOR 06/27/2022 ADDENDUM STATUS: COMPLETED The above note has been reviewed and approved as part of clinical supervision by this chart writer. [place] was seen today for: Discharge Planning /es/ JACI AGUDELO TRUCKING SUPERVISOR Signed: 06/27/2022 08:14
--- OUTSIDE RECORDS SUMMARY | 2022-07-04 09:17 | XMS_ITS | Encounter Summary ---
:1950 Author Organization [facility] Address [address] [place] [address] Support Name Relationship Address Phone MADELIN MANTILLA Unavailable [address] [phone] [place] [address] MADELIN MANTILLA Unavailable [address] [phone] [place] [address] DHAVAL MANTILLA Unavailable [address] [place] [address] Insurance Providers: All historical and current Section [...] MEDICARE MEDICARE PART Jul 18, PART B [id number] ANNALEE BUSTILLO (WNR) (M) B 2014A [phone] ,REGI MEDICARE MEDICARE PART Apr 17, PART A [id number] ANNALEE BUTSILLO (WNR) (M) A 2012A [phone] ,REGI Selected Encounter This section includes the information on record at [place] for the Encounter. Date/Time Encounter Type Encounter Reason Provider Source Description Jun 24, 2022 01:00 Outpatient [facility] AM Encounter ([employer]) IHE Encounter Template Text not used by [...] 20 appointments. The data comes from all [place] treatment facilities. Appointment Date/Time Appointment Type Appointment Facili ty Name Jul 12, 2022 09:20 AM AMBULATORY - SURGERY [facility] S Jul 19, 2022 07:00 AM AMBULATORY - NONE [facility] Jul 19, 2022 08:00 AM AMBULATORY - MEDICINE [facility] H CS Jul 19, 2022 09:00 AM AMBULATORY - MEDICINE [facility] CS Jul 25, 2022 09:00 AM AMBULATORY - NONE [facility] Jul 25, 2022 10:30 AM AMBULATORY - NONE [facility] Jul 25, 2022 11:00 AM AMBULATORY - SURGERY [facility] S Jul 25, 2022 12:30 PM AMBULATORY - NONE [facility] Aug 05, 2022 11:00 AM AMBULATORY - NONE [facility] Nov 20, 2022 10:30 AM AMBULATORY - MEDICINE [facility] CS Nov 20, 2022 11:00 AM AMBULATORY - MEDICINE [facility] CS Nov 20, 2022 11:30 AM AMBULATORY - MEDICINE [facility] Active, Pending, and Scheduled Orders This section includes a listing of several types of active, pending, and scheduled orders, including clinic medications orders, diagnostic test orders, procedure orders and consult orders; where the start date of the order is 45 days before the date of the Encounter or 45 days after the date of the Encounter. The data comes from all [facility] facilities. Test Date/Time Test Type Test Details Facility Name May 15, 2022 12:00 Laboratory - COVID-19 AND FLU/RSV DIAG [facility] AM Chemistry Order PANEL(CEPHEID) NASOPHARYNGEAL SWAB STAT ONCE Jun 24, 2022 06:55 Laboratory - EXTRA BLUE TUBE PLASMA WC [facility] PM Chemistry Order Jun 24, 2022 06:55 Laboratory - EXTRA GOLD GEL TUBE SERUM [facility] PM Chemistry Order Jun 24, 2022 06:55 Laboratory - EXTRA MINT TUBE PLASMA WC [facility] PM Chemistry Order Jun 24, 2022 06:55 Laboratory - EXTRA PURPLE TUBE BLOOD [facility] PM Chemistry Order Jun 28, 2022 04:57 Consult Order NEUROSURGERY OUTPT Cons [place] [facility] PM Gun Striper's Choice Jun 28, 2022 05:00 Consult Order UROLOGY OUTPT [place] [facility] PM Gun Striper's Choice Jul 10, 2022 12:00 Laboratory - RHEUMATOLOGY CHEM PANEL [facility] AM Chemistry Order PLASMA SP ONCE Jul 10, 2022 12:00 Laboratory - RHEUMATOLOGY HEME PANEL [facility] AM Chemistry Order BLOOD SP ONCE Jul 25, 2022 10:30 Imaging - General CERVICAL SPINE 4 OR 5 [facility] AM Radiology Order VIEWS Lab Results: [...] Range Comment Jun 24, 2022 09:29 PM [facility] URINALYSIS Specim en Type: URINE No comment enter ed. Ordering Provid er: JAYDE MENDOZA Report Released Date/Time: Jun 24, 2022 06:55 PM Reporting Lab: [facility] [address] [facility] [address] Performing Lab: [facility] [address] [facility] [address] URINE COLOR YELLOW SPECIFIC GRAVITY 1.039 H [...] 25 NEGATIVE Jun 24, 2022 08:24 PM [facility] AST/SGOT Specim en Type: PLASMA No comment enter ed. Ordering Provid er: JAYDE MENDOZA Report Released Date/Time: Jun 24, 2022 08:09 PM Reporting Lab: [facility] [address] [facility] [address] Performing Lab: [facility] [address] [facility] [address] AST/SGOT 19 <34 Jun 24, 2022 08:24 PM [facility] POTASSIUM Specim en Type: PLASMA No comment enter ed. Ordering Provid er: JAYDE MENDOZA Report Released Date/Time: Jun 24, 2022 08:09 PM Reporting Lab: [facility] [address] [facility] [address] Performing Lab: [facility] [address] [facility] [address] POTASSIUM 4.9 3.5-5.1 Jun 24, 2022 08:24 PM [facility] PROTEIN,TOTAL Specim en Type: PLASMA No comment enter ed. Ordering Provid er: JAYDE MENDOZA Report Released Date/Time: Jun 24, 2022 08:09 PM Reporting Lab: [facility] [address] [facility] [address] Performing Lab: [facility] [address] [facility] [address] PROTEIN,TOTAL 6.8 6.0-8.3 Jun 24, 2022 07:40 [facility] PROTHROMBIN TIME/INR Spec imen Type: PLASMA PM No comment enter ed. Ordering Provid er: JAYDE MENDOZA Report Released Date/Time: Jun 24, 2022 06:55 PM Reporting Lab: [facility] [address] [facility] [address] Performing Lab: [facility] [address] [facility] [address] .INR 1.1 0.8-1.1 .PT 12.1 9.4-12.5 Jun 24, 2022 07:32 [facility] COVID-19 DIAGNOSTIC Speci men Type: NASOPHARYNGEAL PM PANEL (CEPHEID) Comment: Cephei d GeneXpert (618) Ordering Provid er: JAYDE MENDOZA Report Released Date/Time: Jun 24, 2022 06:55 PM Reporting Lab: [facility] [address] [facility] [address] Performing Lab: [facility] [address] [facility] [address] COVID-19 (CEPHEID) Not Detected Not Dete cted Jun 24, 2022 [facility] COMPREHENSIVE METABOLIC Spec imen Type: PLASMA 07:29 PM PANEL+MG Comment: Cancel lation reported to: Rajni Giraldo RN on 06/24/22@2004 by [place]. Test result cancelled due to hemolysis interference in sample. Ordering Provid er: JAYDE MENDOZA Report Released Date/Time: Jun 24, 2022 06:55 PM Reporting Lab: [facility] [address] [facility] [address] Performing Lab: [facility] [address] [facility] [address] CREATININE 1.3 H 0.7-1.2 UREA NITROGEN 19 [...] L >60 Jun 24, 2022 07:29 PM [facility] CBC & DIFF Specim en Type: BLOOD Comment: Clumpe d Platelets. Invitro artefact. No clinical significance. Platelet count may be higher than stated value. Plt count = 214 K-cmm Manual Differential Performed Ordering Provid er: JAYDE MENDOZA Report Released Date/Time: Jun 24, 2022 06:55 PM Reporting Lab: [facility] [address] Performing Lab: [facility] [address] WBC 9.67 4.0-11.0 RBC 3.36 L 4.6-6.2 [...] dy Source Pressure Rate Mass Index Jun 242021 11:13 [facility] Jun 242021 11:12 [facility] Jun 24, 98.2 F 63 128/87 16 /min 92 % 8 62.0 in 116.0 21 [place] 2021 10:38 /min mm[Hg] lb [facility] Jun 24, 97.5 F 69 99/64 15 /min 8 [place] 2021 06:00 /min mm[Hg] [facility] Social History: Smoking Status (Most [...] 01:30 PM VA-TOBACCO FORMER USER [facility] Tobacco Use History This section includes a history of the smoking, or tobacco- related health factors, that were collected on or before the date of the Encounter. The data comes from the [place] facility where the Encounter took place. Date/Time Smoking Status/Tobacco Use Comment [facility] Mar 05, 2022 01:30 PM VA-TOBACCO QUIT 1 TO < 5 YRS [facility] Jun 01, 2021 02:00 PM [facility]ACCO [facility] Dec 31, 2019 10:54 AM VA-TOBACCO FORMER USER [facility] Dec 31, 2019 10:54 AM VA-TOBACCO QUIT < 1 YEAR M [facility] March 23, 2019 09:53 AM VA-TOBACCO FORMER USER [facility] March 23, 2019 09:53 AM VA-TOBACCO QUIT < 1 YEAR M [facility] Jun 10, 2018 10:00 AM CURRENT TOBACCO USER [place] [facility] May 10, 2018 07:27 PM [facility] May 10, 2018 07:27 PM INPT TOBACCO USER [place] [facility] Aug 29, 2017 09:55 AM FORMER TOBACCO USE <1Y [facility] May 26, 2017 10:51 PM INPT TOBACCO COUNSELING [place] [facility] May 26, 2017 10:51 PM INPT TOBACCO USER [place] [facility] May 03, 2017 09:34 PM INPT TOBACCO COUNSELING [place] [facility] May 03, 2017 09:34 PM INPT TOBACCO USER GONZALES LORENZ [facility] Sep 18, 2016 01:36 PM FORMER TOBACCO USE <1Y [place] [facility] Aug 10, 2016 03:54 PM INPT TOBACCO USE - PT REFUSED [facility] Aug 01, 2016 06:48 PM [facility]AC[facility] Aug 01, 2016 06:48 PM INPT TOBACCO USER CAROLYNO GERDA [facility] Feb 08, 2015 09:57 AM CURRENT TOBACCO USER [facility] Nov 29, 2013 10:37 AM CURRENT TOBACCO USER [facility] Nov 26, 2013 11:09 AM PATIENT IS TOBACCO USER ANAID EPPSPOLDAVID [facility] Nov 27, 2012 12:12 PM CURRENT TOBACCO USER [facility] Dec 27, 2011 09:44 AM CURRENT TOBACCO USER [facility] Jan 22, 2011 02:38 PM CURRENT TOBACCO USER [facility] KRISTELS [facility] Mar 13, 2010 12:48 PM CURRENT TOBACCO USER [facility] Advance Directives: All historical and current [...] Feb 25, 2018 ADVANCE DIRECTIVE AURORA MORALES [facility] Feb 24, 2018 ADVANCE DIRECTIVE DISCUSSION AURORA MORALES [facility] May 26, 2017 CLINICAL WARNING MAGO CONTRERAS [facility] May 03, 2017 CLINICAL WARNING SARIAH ENGLE [facility] Aug 10, 2016 CLINICAL WARNING ISABEL BARCENAS [facility] Aug 02, 2016 CLINICAL WARNING AURORA ALMAZAN [facility] Encounter Notes: All associated encounter notes This section contains the clinical notes associated to the Encounter. Date/Time Encounter Note(s) Provider Source Jun 24, 2022 01:00 AM CRITICAL CARE UNIT NOTE[facility] LOCAL TITLE: ICCA RESPIRATORY THERAPY FLOWSHEET STANDARD TITLE: CRITICAL CARE UNIT NOTE DATE OF NOTE: JUN 24, 2022@01:00 ENTRY DATE: JUN 25, 2022@17:59:55 AUTHOR: SYSTEM,CIS-ARK EXP COSIGNER: URGENCY: STATUS: COMPLETED This is a place donovan only. Please see VISTA Im aging to view document. /es/ [facility] SYSTEM ICU DOCUMENT IMPORT Signed: 06/25/2022 17:59
--- OUTSIDE RECORDS SUMMARY | 2022-07-04 09:17 | XMS_ITS | Encounter Summary ---
:1950 Author Organization [facility] Address [address] [place] [address] Support Name Relationship Address Phone MADELIN MANTILLA Unavailable [address] [phone] [place] [address] MADELIN MANTILLA Unavailable [address] [phone] [place] [address] DHAVAL MANTILLA Unavailable [address] [place] [address] Insurance Providers: All historical and current Section [...] MEDICARE MEDICARE PART Jul 18, PART B [id number] ANNALEE BUSTILLO (WNR) (M) B 2014A [phone] ,REGI MEDICARE MEDICARE PART Apr 17, PART A [id number] ANNALEE BUSTILLO (WNR) (M) A 2012A [phone] ,REGI Selected Encounter This section includes the information on record at [place] for the Encounter. Date/Time Encounter Type Encounter Description Reason Provider Source Jun 24, 2022 10:15 Inpatient Visit ADMIN [facility] TEM,CIS-[facility] PM (MASNONCT) IHE Encounter Template Text not [...] The data comes from all [place] treatment [facility]. Appointment Date/Time Appointment Type Appointment Facili ty Name Jul 12, 2022 09:20 AM AMBULATORY - SURGERY [facility] S Jul 19, 2022 07:00 AM AMBULATORY - NONE [facility] Jul 19, 2022 08:00 AM AMBULATORY - MEDICINE [facility] H CS Jul 19, 2022 09:00 AM AMBULATORY - MEDICINE [facility] CS Jul 25, 2022 09:00 AM AMBULATORY - NONE [facility] Jul 25, 2022 10:30 AM AMBULATORY - NONE [facility] Jul 25, 2022 11:00 AM AMBULATORY - SURGERY [facility] S Jul 25, 2022 12:30 PM AMBULATORY - NONE [facility] Aug 05, 2022 11:00 AM AMBULATORY - NONE [facility] Nov 20, 2022 10:30 AM AMBULATORY - MEDICINE [facility] CS Nov 20, 2022 11:00 AM AMBULATORY - MEDICINE [facility] CS Nov 20, 2022 11:30 AM AMBULATORY - MEDICINE [facility] Active, Pending, and Scheduled Orders This section includes a listing of several types of active, pending, and scheduled orders, including clinic medications orders, diagnostic test orders, procedure orders and consult orders; where the start date of the order is 45 days before the date of the Encounter or 45 days after the date of the Encounter. The data comes from all [facility]. Test Date/Time Test Type Test Details Facility Name May 15, 2022 12:00 Laboratory - COVID-19 AND FLU/RSV DIAG [facility] AM Chemistry Order PANEL(CEPHEID) NASOPHARYNGEAL SWAB STAT ONCE Jun 24, 2022 06:55 Laboratory - EXTRA BLUE TUBE PLASMA WC [facility] PM Chemistry Order Jun 24, 2022 06:55 Laboratory - EXTRA GOLD GEL TUBE SERUM [facility] PM Chemistry Order Jun 24, 2022 06:55 Laboratory - EXTRA PURPLE TUBE BLOOD [facility] PM Chemistry Order Jun 24, 2022 06:55 Laboratory - EXTRA MINT TUBE PLASMA WC [facility] PM Chemistry Order Jun 28, 2022 04:57 Consult Order NEUROSURGERY OUTPT Cons [place] [facility] PM Front Desk Worker's Choice Jun 28, 2022 05:00 Consult Order UROLOGY OUTPT Cons [place] [facility] PM Front Desk Worker's Choice Jul 10, 2022 12:00 Laboratory - RHEUMATOLOGY CHEM PANEL [facility] AM Chemistry Order PLASMA SP ONCE Jul 10, 2022 12:00 Laboratory - RHEUMATOLOGY HEME PANEL [facility] AM Chemistry Order BLOOD SP ONCE Jul 25, 2022 10:30 Imaging - General CERVICAL SPINE 4 OR 5 [facility] AM Radiology Order VIEWS Lab [...] Range Comment Jun 24, 2022 09:29 PM [facility] URINALYSIS Specim en Type: URINE No comment enter ed. Ordering Provid er: JAYDE MENDOZA Report Released Date/Time: Jun 24, 2022 06:55 PM Reporting Lab: [facility] [address] [facility] [address] Performing Lab: [facility] [address] [facility] [address] URINE COLOR YELLOW SPECIFIC GRAVITY 1.039 H [...] 25 NEGATIVE Jun 24, 2022 08:24 PM [facility] AST/SGOT Specim en Type: PLASMA No comment enter ed. Ordering Provid er: JAYDE MENDOZA Report Released Date/Time: Jun 24, 2022 08:09 PM Reporting Lab: [facility] [address] [facility] [address] Performing Lab: [facility] [address] [facility] [address] AST/SGOT 19 <34 Jun 24, 2022 08:24 PM [facility] POTASSIUM Specim en Type: PLASMA No comment enter ed. Ordering Provid er: JAYDE MENDOZA Report Released Date/Time: Jun 24, 2022 08:09 PM Reporting Lab: [facility] [address] [facility] [address] Performing Lab: [facility] [address] [facility] [address] POTASSIUM 4.9 3.5-5.1 Jun 24, 2022 08:24 PM [facility] PROTEIN,TOTAL Specim en Type: PLASMA No comment enter ed. Ordering Provid er: JAYDE MENDOZA Report Released Date/Time: Jun 24, 2022 08:09 PM Reporting Lab: [facility] [address] [facility] [address] Performing Lab: [facility] [address] [facility] [address] PROTEIN,TOTAL 6.8 6.0-8.3 Jun 24, 2022 07:40 [facility] PROTHROMBIN TIME/INR Spec imen Type: PLASMA PM No comment enter ed. Ordering Provid er: JAYDE MENDOZA Report Released Date/Time: Jun 24, 2022 06:55 PM Reporting Lab: [facility] [address] [facility] [address] Performing Lab: [facility] [address] [facility] [address] .INR 1.1 0.8-1.1 .PT 12.1 9.4-12.5 Jun 24, 2022 07:32 [facility] COVID-19 DIAGNOSTIC Speci men Type: NASOPHARYNGEAL PM PANEL (CEPHEID) Comment: Cephei d GeneXpert (618) Ordering Provid er: JAYDE MENDOZA Report Released Date/Time: Jun 24, 2022 06:55 PM Reporting Lab: [facility] [address] [facility] [address] Performing Lab: [facility] [address] [facility] [address] COVID-19 (CEPHEID) Not Detected Not Dete cted Jun 24, 2022 [facility] COMPREHENSIVE METABOLIC Spec imen Type: PLASMA 07:29 PM PANEL+MG Comment: Cancel lation reported to: Rajni Giraldo RN on 06/24/22@2004 by [place]. Test result cancelled due to hemolysis interference in sample. Ordering Provid er: JAYDE MENDOZA Report Released Date/Time: Jun 24, 2022 06:55 PM Reporting Lab: [facility] [address] [facility] [address] Performing Lab: [facility] [address] CREATININE 1.3 H 0.7-1.2 UREA NITROGEN 19 [...] L >60 Jun 24, 2022 07:29 PM [facility] CBC & DIFF Specim en Type: BLOOD Comment: Clumpe d Platelets. Invitro artefact. No clinical significance. Platelet count may be higher than stated value. Plt count = 214 K-cmm Manual Differential Performed Ordering Provid er: JAYDE MENDOZA Report Released Date/Time: Jun 24, 2022 06:55 PM Reporting Lab: [facility] [address] Performing Lab: [facility] [address] WBC 9.67 4.0-11.0 RBC 3.36 L 4.6-6.2 [...] Source Pressure Rate Mass Index Jun 24 [facility]2021 11:13 [facility] Aug 08, 8 [place] 2021 11:12 [place] [facility] Jun 24, 98.2 F 63 128/87 16 /min 92 % 8 62.0 in 116.0 21 [place] 2021 10:38 /min mm[Hg] lb [facility] [facility] Jun 24, 97.5 F 69 99/64 15 /min 8 [place] 2021 06:00 /min mm[Hg] [facility] Social History: Smoking Status (Most [...] 2022 01:30 PM VA-TOBACCO FORMER USER [facility] Tobacco Use History This section includes a history of the smoking, or tobacco- related health factors, that were collected on or before the date of the Encounter. The data comes from the [place] facility where the Encounter took place. Date/Time Smoking Status/Tobacco Use Comment [facility] Mar 05, 2022 01:30 PM VA-TOBACCO QUIT 1 TO < 5 YRS [facility] Jun 01, 2021 02:00 PM [facility]-TO[facility]ACCO [facility] Dec 31, 2019 10:54 AM VA-TOBACCO FORMER USER [facility] Dec 31, 2019 10:54 AM VA-TOBACCO QUIT < 1 YEAR M [facility] March 23, 2019 09:53 AM VA-TOBACCO FORMER USER [facility] March 23, 2019 09:53 AM VA-TOBACCO QUIT < 1 YEAR [facility] Jun 10, 2018 10:00 AM CURRENT TOBACCO USER [place] [facility] May 10, 2018 07:27 PM INPT TOBACCO COUNSELING [place] [facility] May 10, 2018 07:27 PM INPT TOBACCO USER [place] [facility] Aug 29, 2017 09:55 AM FORMER TOBACCO USE <1Y [facility] May 26, 2017 10:51 PM INPT TOBACCO COUNSELING [place] [facility] May 26, 2017 10:51 PM INPT TOBACCO USER [place] [facility] May 03, 2017 09:34 PM INPT TOBACCO COUNSELING [place] [facility] May 03, 2017 09:34 PM INPT TOBACCO USER GONZALES LORENZ [facility] Sep 18, 2016 01:36 PM FORMER TOBACCO USE <1Y [facility] Aug 10, 2016 03:54 PM INPT TOBACCO USE - PT REFUSED [facility] Aug 01, 2016 06:48 PM INPT TOBACCO COUNSELING [place] [facility] Aug 01, 2016 06:48 PM INPT TOBACCO USER CAROLYNO [facility] Feb 08, 2015 09:57 AM CURRENT TOBACCO USER [facility] Nov 29, 2013 10:37 AM CURRENT TOBACCO USER [facility] Nov 26, 2013 11:09 AM PATIENT IS TOBACCO USER [place] [facility] Nov 27, 2012 12:12 PM CURRENT TOBACCO USER [facility] Dec 27, 2011 09:44 AM CURRENT TOBACCO USER [facility] Jan 22, 2011 02:38 PM CURRENT TOBACCO USER [facility] Mar 13, 2010 12:48 PM CURRENT TOBACCO USER [facility] Advance Directives: All historical and [...] 25, 2018 ADVANCE DIRECTIVE AURORA MORALES [facility] Feb 24, 2018 ADVANCE DIRECTIVE DISCUSSION AURORA MORALES [facility] May 26, 2017 CLINICAL WARNING MAGO CONTRERAS [facility] May 03, 2017 CLINICAL WARNING SARIAH ENGLE [facility] Aug 10, 2016 CLINICAL WARNING ISABEL BARCENAS [facility] Aug 02, 2016 CLINICAL WARNING AURORA ALMAZAN [facility] Encounter Notes: All associated encounter notes This section contains the clinical notes associated to the Encounter. Date/Time Encounter Note(s) Provider Source Jun 24, 2022 10:15 PM CRITICAL CARE UNIT NOTE: [facility] LOCAL TITLE: ICCA RESPIRATORY THERAPY FLOWSHEET STANDARD TITLE: CRITICAL CARE UNIT NOTE DATE OF NOTE: JUN 24, 2022@22:15 ENTRY DATE: JUN 25, 2022@18:00:15 AUTHOR: SYSTEM,CIS-ARK EXP COSIGNER: URGENCY: STATUS: COMPLETED This is a place donovan only. Please see VISTA Im aging to view document. /es/ CIS-[facility] SYSTEM ICU DOCUMENT IMPORT Signed: 06/25/2022 18:00
--- OUTSIDE RECORDS SUMMARY | 2022-07-04 09:18 | XMS_ITS | Encounter Summary ---
:1950 Author Organization [facility] Address [address] [place] [address] Support Name Relationship Address Phone MADELIN MANTILLA Unavailable [phone] [place] [address] MADELIN MANTILLA Unavailable [address] [phone] [place] [address] DHAVAL MANTILLA Unavailable [address] [place] [address] Insurance Providers: All historical and current Section [...] MEDICARE MEDICARE PART Jul 18, PART B [id number] [phone] ANNALEE BUSTILLO (WNR) (M) B 2014A [phone] ,REGI MEDICARE MEDICARE PART Apr 17, PART A [id number] [phone] ANNALEE BUSTILLO (WNR) (M) A 2012A [id number] ,REGI Selected Encounter This section includes the information on record at [place] for the Encounter. Date/Time Encounter Type Encounter Description Reason Provider Source Jun 25, 2022 03:05 Inpatient Visit ADMIN CURT RICO SYChelita KRISHNA,COLTON-NADIA AM (MASNONCT) IHE Encounter Template Text not [...] The data comes from all [place] treatment [facility]. Appointment Date/Time Appointment Type Appointment Facili ty Name Jul 12, 2022 09:20 AM AMBULATORY - SURGERY [facility] S Jul 19, 2022 07:00 AM AMBULATORY - NONE [facility] Jul 19, 2022 08:00 AM AMBULATORY - MEDICINE [facility] H CS Jul 19, 2022 09:00 AM AMBULATORY - MEDICINE [facility] CS Jul 25, 2022 09:00 AM AMBULATORY - NONE [facility] Jul 25, 2022 10:30 AM AMBULATORY - NONE [facility] Jul 25, 2022 11:00 AM AMBULATORY - SURGERY [facility] S Jul 25, 2022 12:30 PM AMBULATORY - NONE [facility] Aug 05, 2022 11:00 AM AMBULATORY - NONE [facility] Nov 20, 2022 10:30 AM AMBULATORY - MEDICINE [facility] CS Nov 20, 2022 11:00 AM AMBULATORY - MEDICINE [facility] CS Nov 20, 2022 11:30 AM AMBULATORY - MEDICINE [facility] Active, Pending, and [...] comes from all [facility]. Test Date/Time Test Type Test Details Facility Name May 15, 2022 12:00 Laboratory - COVID-19 AND FLU/RSV DIAG [facility] AM Chemistry Order PANEL(CEPHEID) NASOPHARYNGEAL SWAB STAT ONCE Jun 24, 2022 06:55 Laboratory - EXTRA BLUE TUBE PLASMA WC [facility] PM Chemistry Order Jun 24, 2022 06:55 Laboratory - EXTRA GOLD GEL TUBE SERUM [facility] PM Chemistry Order Jun 24, 2022 06:55 Laboratory - EXTRA PURPLE TUBE BLOOD [facility] PM Chemistry Order Jun 24, 2022 06:55 Laboratory - EXTRA MINT TUBE PLASMA WC [facility] PM Chemistry Order Jun 28, 2022 04:57 Consult Order NEUROSURGERY OUTPT [place] [facility] PM Employment Appeals Examiner's Choice Jun 28, 2022 05:00 Consult Order UROLOGY OUTPT [place] [facility] PM Employment Appeals Examiner's Choice Jul 10, 2022 12:00 Laboratory - [...] [facility] [address] [facility] [address] Performing Lab: [facility] [address] [facility] [address] URINE COLOR YELLOW SPECIFIC GRAVITY 1.039 H [...] [facility] [address] [facility] [address] Performing Lab: [facility] [address] [facility] [address] AST/SGOT 19 <34 Jun 24, 2022 08:24 PM [facility] POTASSIUM Specim en Type: PLASMA No comment enter ed. Ordering Provid er: JAYDE MENDOZA Report Released Date/Time: Jun 24, 2022 08:09 PM Reporting Lab: [facility] [address] [facility] [address] Performing Lab: [facility] [address] [facility] [address] POTASSIUM 4.9 3.5-5.1 Jun 24, 2022 08:24 PM [facility] PROTEIN,TOTAL Specim en Type: PLASMA No comment enter ed. Ordering Provid er: JAYDE MENDOZA Report Released Date/Time: Jun 24, 2022 08:09 PM Reporting Lab: [facility] [address] [facility] [address] Performing Lab: [facility] [address] [facility] [address] PROTEIN,TOTAL 6.8 6.0-8.3 Jun 24, 2022 07:40 [facility] PROTHROMBIN TIME/INR Spec imen Type: PLASMA PM No comment enter ed. Ordering Provid er: JAYDE MENDOZA Report Released Date/Time: Jun 24, 2022 06:55 PM Reporting Lab: [facility] [address] [facility] [address] Performing Lab: [facility] [address] [facility] [address] .INR 1.1 0.8-1.1 .PT 12.1 9.4-12.5 Jun 24, 2022 07:32 [facility] COVID-19 DIAGNOSTIC Speci men Type: NASOPHARYNGEAL PM PANEL (CEPHEID) Comment: Cephei d GeneXpert (618) Ordering Provid er: JAYDE MENDOZA Report Released Date/Time: Jun 24, 2022 06:55 PM Reporting Lab: [facility] [address] [facility] [address] Performing Lab: [facility] [address] [facility] [address] COVID-19 (CEPHEID) Not Detected Not Dete cted [...] [facility] [address] [facility] [address] Performing Lab: [facility] [address] CREATININE 1.3 H 0.7-1.2 UREA NITROGEN 19 [...] Reporting Lab: [facility] [address] Performing Lab: [facility] [address] WBC 9.67 4.0-11.0 RBC 3.36 L 4.6-6.2 [...] 2021 11:52 /min mm[Hg] [place] [facility] Jun 25, 98.0 F 59 103/65 19 /min 91 % 8 [place] 2021 05:23 /min mm[Hg] [place] [facility] Jun 25, 98.3 F 58 110/70 18 /min 93 % 8 [place] 2021 04:41 /min mm[Hg] [place] [facility] Jun 25, 5 [place] 2021 08:23 [place] [facility] Jun 25, 99.4 F 73 115/71 16 /min 89 % [place] 2021 08:10 /min mm[Hg] [place] [facility] Social History: Smoking Status (Most current) [...] 2022 01:30 PM VA-TOBACCO FORMER USER [facility] Tobacco Use History This section includes a history of the smoking, or tobacco- related health factors, that were collected on or before the date of the Encounter. The data comes from the [place] facility where the Encounter took place. Date/Time Smoking Status/Tobacco Use Comment [facility] Mar 05, 2022 01:30 PM VA-TOBACCO QUIT 1 TO < 5 YRS [facility] Jun 01, 2021 02:00 PM VA-TOBACCO NEVER USED [place] [facility] Dec 31, 2019 10:54 AM VA-TOBACCO FORMER USER [facility] Dec 31, 2019 10:54 AM VA-TOBACCO QUIT < 1 YEAR [place] [facility] March 23, 2019 09:53 AM VA-TOBACCO FORMER USER [facility] March 23, 2019 09:53 AM VA-TOBACCO QUIT < 1 YEAR [place] [facility] Jun 10, 2018 10:00 AM CURRENT TOBACCO USER [place] [facility] May 10, 2018 07:27 PM INPT TOBACCO COUNSELING [place] [facility] May 10, 2018 07:27 PM INPT TOBACCO USER CAROLYNO GERDA [facility] Aug 29, 2017 09:55 AM FORMER TOBACCO USE <1Y [facility] May 26, 2017 10:51 PM INPT TOBAC[place] COUNSELING [place] [facility] May 26, 2017 10:51 PM INPT TOBACCO USER CAROLYNO GERDA [facility] May 03, 2017 09:34 PM INPT TOBACCO COUNSELING [place] [facility] May 03, 2017 09:34 PM INPT TOBACCO USER CAROLYNO GERDA [facility] Sep 18, 2016 01:36 PM FORMER TOBACCO USE <1Y [facility] Aug 10, 2016 03:54 PM INPT TOBACCO USE - PT REFUSED [facility] Aug 01, 2016 06:48 PM INPT TOBACCO COUNSELING [place] [facility] Aug 01, 2016 06:48 PM INPT TOBACCO USER CAROLYNO GERDA [facility] Feb 08, 2015 09:57 AM CURRENT TOBACCO USER [facility] Nov 29, 2013 10:37 AM CURRENT TOBACCO USER [facility] Nov 26, 2013 11:09 AM PATIENT IS TOBACCO [facility] Nov 27, 2012 12:12 PM CURRENT TOBACCO USER [facility] KRISTELChelita [facility] Dec 27, 2011 09:44 AM CURRENT TOBACCO USER LAWSON ADAME [facility] Jan 22, 2011 02:38 PM CURRENT [facility]BACCO [facility] Mar 13, 2010 12:48 PM CURRENT TOBACCO USER [facility] Advance Directives: All historical and [...] Encounter Note(s) Provider Source Jun 25, 2022 03:05 AM CRITICAL CARE UNIT NOTE: KAREY,BIENVENIDO Lamar [facility] LOCAL TITLE: ICCA INPATIENT FLOWSHEET STANDARD TITLE: CRITICAL CARE UNIT NOTE DATE OF NOTE: JUN 25, 2022@03:05 ENTRY DATE: JUN 26, 2022@14:34:31 AUTHOR: BIENVENIDO EDEN EXP COSIGNER: URGENCY: STATUS: COMPLETED This is a place [place] only. Please see VISTA Im aging to view document. /es/ BIENVENIDO SYSTEM ICU DOCUMENT IMPORT Signed: 06/26/2022 14:34
--- OUTSIDE RECORDS SUMMARY | 2022-07-04 09:18 | XMS_ITS ---
DAILY HOSPITALIZATION DATA [facility] Encounter Summary Created on:June 26, 2022 Patient:REGI MANTILLA Sex:Male :1950 Author Organization [facility] Address [address] [place] [address] Support Name Relationship Address Phone MADELIN MANTILLA Unavailable [phone] [place] [address] MADELIN MANTILLA Unavailable [phone] [place] [address] DHAVAL MANTILLA Unavailable [address] [place] [address] Insurance Providers: All historical and current Section [...] MEDICARE MEDICARE PART Jul 18, PART B [id number] ANNALEE BRYANIENT (WNR) (M) B 2014A [phone] ,ERGI MEDICARE MEDICARE PART Apr 17, PART A [id number] 800 ANNALEE BRYANIENT (WNR) (M) A 2012A [phone] ,REGI Selected Encounter This section includes the information on record at [place] for the Encounter. Date/Time Encounter Type Encounter Description Reason Provider Source Jun 26, 2022 08:12 Inpatient Visit DAILY HOSPITALIZATION DATA AM E Encounter Template Text not used by [place] Plan of Treatment: Future Appointments (+ 6 months) and Future Tests (+/- 45 days) The Plan of Treatment section includes future care activities for the patient from all [place] treatmentfacilities. This section includes future appointments and future orders which are active, pending orscheduled.Future Appointments This section includes appointments that were scheduled to occur 6 months from the date of the Encounter, up to a maximum of 20 appointments. The data comes from all [place] treatment facilities. Appointment Date/Time Appointment Type Appointment Facili ty Name Jul 12, 2022 09:20 AM AMBULATORY - SURGERY [facility] S Jul 19, 2022 07:00 AM AMBULATORY - NONE [facility] Jul 19, 2022 08:00 AM AMBULATORY - MEDICINE [facility] H CS Jul 19, 2022 09:00 AM AMBULATORY - MEDICINE [facility] CS Jul 25, 2022 09:00 AM AMBULATORY - NONE [facility] Jul 25, 2022 10:30 AM AMBULATORY - NONE [facility] Jul 25, 2022 11:00 AM AMBULATORY - SURGERY [facility] S Jul 25, 2022 12:30 PM AMBULATORY - NONE [facility] Aug 05, 2022 11:00 AM AMBULATORY - NONE [facility] Nov 20, 2022 10:30 AM AMBULATORY - MEDICINE [facility] CS Nov 20, 2022 11:00 AM AMBULATORY - MEDICINE [facility] CS Nov 20, 2022 11:30 AM AMBULATORY - MEDICINE [facility] Active, Pending, and Scheduled Orders [...] Encounter. The data comes from all [facility]. Test Date/Time Test Type Test Details Facility [...] Laboratory - EXTRA PURPLE TUBE BLOOD [facility] PM Chemistry Order WC Jun 24, 2022 06:55 Laboratory - EXTRA MINT TUBE PLASMA WC [facility] PM Chemistry Order Jun 28, 2022 04:57 Consult Order NEUROSURGERY OUTPT Cons [place] [facility] PM Marriage Performer's Choice Jun 28, 2022 05:00 Consult Order UROLOGY OUTPT [place] [facility] PM Marriage Performer's Choice Jul 10, 2022 12:00 Laboratory - RHEUMATOLOGY CHEM PANEL [facility] AM Chemistry Order PLASMA SP ONCE Jul 10, 2022 12:00 Laboratory - RHEUMATOLOGY HEME PANEL [facility] AM Chemistry Order BLOOD SP ONCE Jul 25, 2022 10:30 Imaging - General CERVICAL SPINE 4 OR 5 [facility] AM Radiology Order VIEWS Lab Results: [...] Range Comment Jun 24, 2022 09:29 PM [facility] URINALYSIS Specim en Type: URINE No comment enter ed. Ordering Provid er: JAYDE MENDOZA Report Released Date/Time: Jun 24, 2022 06:55 PM Reporting Lab: [facility] [address] [facility] [address] Performing Lab: [facility] [address] URINE COLOR YELLOW SPECIFIC GRAVITY 1.039 H [...] 25 NEGATIVE Jun 24, 2022 08:24 PM [facility] AST/SGOT Specim en Type: PLASMA No comment enter ed. Ordering Provid er: JAYDE MENDOZA Report Released Date/Time: Jun 24, 2022 08:09 PM Reporting Lab: [facility] [address] [facility] [address] Performing Lab: [facility] [address] [facility] [address] AST/SGOT 19 <34 Jun 24, 2022 08:24 PM [facility] POTASSIUM Specim en Type: PLASMA No comment enter ed. Ordering Provid er: JAYDE MENDOZA Report Released Date/Time: Jun 24, 2022 08:09 PM Reporting Lab: [facility] [address] [facility] [address] Performing Lab: [facility] [address] [facility] [address] POTASSIUM 4.9 3.5-5.1 Jun 24, 2022 08:24 PM [facility] PROTEIN,TOTAL Specim en Type: PLASMA No comment enter ed. Ordering Provid er: JAYDE MENDOZA Report Released Date/Time: Jun 24, 2022 08:09 PM Reporting Lab: [facility] [address] [facility] [address] Performing Lab: [facility] [address] [facility] [address] PROTEIN,TOTAL 6.8 6.0-8.3 Jun 24, 2022 07:40 [facility] PROTHROMBIN TIME/INR Spec imen Type: PLASMA PM No comment enter ed. Ordering Provid er: JAYDE MENDOZA Report Released Date/Time: Jun 24, 2022 06:55 PM Reporting Lab: [facility] [address] Performing Lab: [facility] [address] .INR 1.1 0.8-1.1 .PT 12.1 9.4-12.5 Jun 24, 2022 07:32 [facility] COVID-19 DIAGNOSTIC Speci men Type: NASOPHARYNGEAL PM PANEL (CEPHEID) Comment: Cephei d GeneXpert (618) Ordering Provid er: JAYDE MENDOZA Report Released Date/Time: Jun 24, 2022 06:55 PM Reporting Lab: [facility] [address] [facility] [address] Per[facility] [address] COVID-19 (CEPHEID) Not Detected Not Dete cted Jun 24, 2022 [facility] COMPREHENSIVE METABOLIC Spec imen Type: PLASMA 07:29 PM PANEL+MG Comment: Cancel lation reported to: Rajni Giraldo RN on 06/24/22@2004 by [place]. Test result cancelled due to hemolysis interference in sample. Ordering Provid er: JAYDE MENDOZA Report Released Date/Time: Jun 24, 2022 06:55 PM Reporting Lab: [facility] [address] [facility] [address] Performing Lab: [facility] [address] CREATININE 1.3 H 0.7-1.2 UREA NITROGEN 19 [...] L >60 Jun 24, 2022 07:29 PM [facility] CBC & DIFF Specim en Type: BLOOD Comment: [place] d Platelets. Invitro artefact. No clinical significance. Platelet count may be higher than stated value. Plt count = 214 K-cmm Manual Differential Performed Ordering Provid er: JAYDE MENDOZA Report Released Date/Time: Jun 24, 2022 06:55 PM Reporting Lab: [facility] [address] Performing Lab: [facility] [address] WBC 9.67 4.0-11.0 RBC 3.36 L 4.6-6.2 [...] dy Source Pressure Rate Mass Index Jun 26 98.3 F 61 99/63 16 /min 90 % 8 2021 08:32 /min mm[Hg] [facility] Jun 26 [facility] 2021 03:48 [place] AM [facility] Jun 26 [facility] 2021 03:48 [facility] Social History: Smoking Status (Most [...] 2021 02:00 PM VA[facility]BACCO [facility] Dec 31, 2019 10:54 AM VA-TOBACCO FORMER USER [facility] Dec 31, 2019 10:54 AM VA-TOBACCO QUIT < 1 YEAR M [facility] March 23, 2019 09:53 AM VA-TOBACCO FORMER USER [facility] March 23, 2019 09:53 AM VA-TOBACCO QUIT < 1 YEAR M [facility] Jun 10, 2018 10:00 AM CURRENT TOBACCO USER [facility] May 10, 2018 07:27 PM INPT TOBACCO COUNSEL[place] [facility] May 10, 2018 07:27 PM INPT TOBACCO US[place] [facility] Aug 29, 2017 09:55 AM FORMER TOBACCO USE <1Y [facility] May 26, 2017 10:51 PM INPT TOBACCO COUNSELING [place] [facility] May 26, 2017 10:51 PM INPT TOBACCO [place] [facility] May 03, 2017 09:34 PM INPT TOBACCO COUNSELING [place] [facility] May 03, 2017 09:34 PM INPT TOBACCO USER [place] [facility] Sep 18, 2016 01:36 PM FORMER TOBACCO USE <1Y [facility] Aug 10, 2016 03:54 PM INPT TOBACCO USE - PT REFUSED [facility] Aug 01, 2016 06:48 PM INPT TOBACCO COUNSELING [place] [facility] Aug 01, 2016 06:48 PM INPT TOBACCO USER GONZALES LORENZ [facility] Feb 08, 2015 09:57 AM CURRENT TOBACCO USER [facility] [facility] Nov 29, 2013 10:37 AM CURRENT TOBACCO USER [place] [facility] Nov 26, 2013 11:09 AM PATIENT IS TOBACCO USER [place] [facility] Nov 27, 2012 12:12 PM CURRENT TOBACCO USER [facility] Dec 27, 2011 09:44 AM CURRENT TOBACCO USER [facility] Jan 22, 2011 02:38 PM CURRENT TOBACCO USER [facility] Mar 13, 2010 12:48 PM CURRENT TOBACCO USER [facility] Advance Directives: All historical and current [...]
--- OUTSIDE RECORDS SUMMARY | 2022-07-04 09:19 | XMS_ITS | Encounter Summary ---
:1950 Author Organization [facility] Address [address] [place] [address] Support Name Relationship Address Phone MADELIN MANTILLA Unavailable [address] [phone] [place] [address] MADELIN MANTILLA Unavailable [address] [phone] [place] [address] DHAVAL MANTILLA Unavailable [address] [place] [address] Insurance Providers: All historical and current Section [...] MEDICARE MEDICARE PART Jul 18, PART B [id number] ANNALEE BRYANIENT (WNR) (M) B 2014A [phone] ,REGI MEDICARE MEDICARE PART Apr 17, PART A [id number] 800 ANNALEE Cardenas ATIENT (WNR) (M) A 2012A [phone] ,REGI Selected Encounter This section includes the information on record at [place] for the Encounter. Date/Time Encounter Type Encounter Reason Provider Source Description Jun 26, 2022 CASE MANAGEMENT GENERAL SURGERY ICD-10-CM Z71.89 SUDHA KRUSE 12:00 PM Other specified DY L counseling with Provider Comments: Other specified Counseling IHE Encounter Template Text not used by [place] Assessments - Encounter Diagnoses This section includes the primary and secondary diagnoses documented for the Encounter. Date/Time Primary/Secondary Diagnosis Name Provider Source Diagnosis Jun 26, 2022 PRIMARY Other specified SUDHA BROWN [place] 02:58 PM counseling DY L [facility] Plan of Treatment: Future Appointments (+ 6 months) and Future Tests (+/- 45 days) The Plan of Treatment section includes future care activities for the patient from all [place] [facility] This section includes future appointments and future orders which are active, pending orscheduled.Future Appointments This section includes appointments that were scheduled to occur 6 months from the date of the Encounter, up to a maximum of 20 appointments. The data comes from all [place] treatment [facility]. Appointment Date/Time Appointment Type Appointment Facili ty Name Jul 12, 2022 09:20 AM AMBULATORY - SURGERY [facility] Jul 19, 2022 07:00 AM AMBULATORY - NONE [facility] Jul 19, 2022 08:00 AM AMBULATORY - MEDICINE [facility] Jul 19, 2022 09:00 AM AMBULATORY - MEDICINE [facility] Jul 25, 2022 09:00 AM AMBULATORY - NONE [facility] Jul 25, 2022 10:30 AM AMBULATORY - NONE [facility] Jul 25, 2022 11:00 AM AMBULATORY - SURGERY [facility] Jul 25, 2022 12:30 PM AMBULATORY - NONE [facility] Aug 05, 2022 11:00 AM AMBULATORY - NONE [facility] Nov 20, 2022 10:30 AM AMBULATORY - MEDICINE [facility] Nov 20, 2022 11:00 AM AMBULATORY - MEDICINE [facility] Nov 20, 2022 11:30 AM AMBULATORY - MEDICINE [facility] Active, Pending, and Scheduled Orders This section includes a listing of several types of active, pending, and scheduled orders, including clinic medications orders, diagnostic test orders, procedure orders and consult orders; where the start date of the order is 45 days before the date of the Encounter or 45 days after the date of the Encounter. The data comes from all [facility]. Test Date/Time Test Type Test Details Facility [...] SERUM [facility] PM Chemistry Order WC Jun 24, 2022 06:55 Laboratory - EXTRA PURPLE TUBE BLOOD [facility] PM Chemistry Order WC Jun 24, 2022 06:55 Laboratory - EXTRA MINT TUBE PLASMA WC [facility] PM Chemistry Order Jun 28, 2022 04:57 Consult Order NEUROSURGERY OUTPT Cons LAWSON ADAME [facility] PM Hearing Aid Assistant's Choice Jun 28, 2022 05:00 Consult Order UROLOGY OUTPT Cons ZEINAB Merlos [facility] PM Hearing Aid Assistant's Choice Jul 10, 2022 12:00 Laboratory - RHEUMATOLOGY CHEM PANEL [facility] AM Chemistry Order PLASMA SP ONCE Jul 10, 2022 12:00 Laboratory - RHEUMATOLOGY HEME PANEL [facility] AM Chemistry Order BLOOD SP ONCE Jul 25, 2022 10:30 Imaging - General CERVICAL SPINE [address] [facility] AM Radiology Order VIEWS Lab Results: +/- [...] Comment Jun 24, 2022 09:[address] [facility] URINALYSIS Specim en Type: URINE No comment enter ed. Ordering Provid er: JAYDE MENDOZA Report Released Date/Time: Jun 24, 2022 06:55 PM Reporting Lab: [facility] [id number] Performing Lab: [facility] [id number] URINE COLOR YELLOW SPECIFIC GRAVITY 1.039 H [...] NEGATIVE Jun 24, 2022 08:[address] [facility] AST/SGOT Specim en Type: PLASMA No comment enter ed. Ordering Provid er: JAYDE MENDOZA Report Released Date/Time: Jun 24, 2022 08:09 PM Reporting Lab: [facility] [id number] Performing Lab: [facility] [phone] AST/SGOT 19 <34 Jun 24, 2022 08:[address] [facility] PROTEIN,TOTAL Specim en Type: PLASMA No comment enter ed. Ordering Provid er: JAYDE MENDOZA Report Released Date/Time: Jun 24, 2022 08:09 PM Reporting Lab: [facility] [address] Performing Lab: [facility] [address] PROTEIN,TOTAL 6.8 6.0-8.3 Jun 24, 2022 08:[address] [facility] POTASSIUM Specim en Type: PLASMA No comment enter ed. Ordering Provid er: JAYDE MENDOZA Report Released Date/Time: Jun 24, 2022 08:09 PM Reporting Lab: [facility] [address] Performing Lab: [facility] [address] POTASSIUM 4.9 3.5-5.1 Jun 24, 2022 07:40 [facility] PROTHROMBIN TIME/INR Spec imen Type: PLASMA PM No comment enter ed. Ordering Provid er: JAYDE MENDOZA Report Released Date/Time: Jun 24, 2022 06:55 PM Reporting Lab: [facility] [address] [facility] [address] Performing Lab: [facility] [address] .INR 1.1 0.8-1.1 .PT 12.1 9.4-12.5 Jun 24, 2022 07:32 [facility] COVID-19 DIAGNOSTIC Speci men Type: NASOPHARYNGEAL PM PANEL (CEPHEID) Comment: Bryan rodriguez GeneXpert (618) Ordering Provid er: JAYDE MENDOZA Report Released Date/Time: Jun 24, 2022 06:55 PM Reporting Lab: [facility] [address] [facility] [facility] [phone] Performing Lab: [facility] [address] [facility] [phone] COVID-19 (CEPHEID) Not Detected Not Dete cted Jun 24, 2022 [facility] COMPREHENSIVE METABOLIC Spec imen Type: PLASMA 07:29 PM PANEL+MG Comment: Cancel lation reported to: Rajni Giraldo RN on 06/24/22@2004 by [place]. Test result cancelled due to hemolysis interference in sample. Ordering Provid er: JAYDE MENDOZA Report Released Date/Time: Jun 24, 2022 06:55 PM Reporting Lab: [facility] [address] Performing Lab: [facility] [address] CREATININE 1.3 H 0.7-1.2 UREA NITROGEN 19 [...] L >60 Jun 24, 2022 07:[address] [facility] CBC & DIFF Specim en Type: BLOOD Comment: [place] d Platelets. Invitro artefact. No clinical significance. Platelet count may be higher than stated value. Plt count = 214 K-cmm Manual Differential Performed Ordering Provid er: JAYDE MENDOZA Report Released Date/Time: Jun 24, 2022 06:55 PM Reporting Lab: [facility] [address] Performing Lab: [facility] [phone] WBC 9.67 4.0-11.0 RBC 3.36 L 4.6-6.2 [...] dy Source Pressure Rate Mass Index Jun 26, 98.3 F 61 99/63 16 /min 90 % 8 MINNE2021 08:32 /min mm[Hg] [place] [facility] Jun 26, 6 [facility] 03:48 [place] [facility] Jun 26, [facility] 2021 03:48 [facility] Social History: Smoking Status (Most current) and [...] the Encounter. The data comes from the [place] facility where the Encounter took place. Date/Time Smoking Status/Tobacco Use Comment [facility] Mar 05, 2022 01:30 PM VA-TOBACCO QUIT 1 TO < [address] [facility] Jun 01, 2021 02:00 PM [facility] Dec 31, 2019 10:54 AM VA-TOBACCO FORMER USER [facility] Dec 31, 2019 10:54 AM VA-TOBACCO QUIT < [facility]AR [facility] March 23, 2019 09:53 AM VA-TOBACCO FORMER USER [facility] March 23, 2019 09:53 AM VA-TOBACCO QUIT < 1 YEAR [place] [facility] Jun 10, 2018 10:00 AM CURRENT TOBACCO USER [place] [facility] May 10, 2018 07:27 PM INPT TOBACCO COUNSELING [place] [facility] May 10, 2018 07:27 PM INPT TO[place]AC[place] [facility] Aug 29, 2017 09:55 AM FORMER TOBACCO USE <1Y [facility] May 26, 2017 10:51 PM INPT TOBACCO COUNSELING [place] [facility] May 26, 2017 10:51 PM INPT TO[place]ACCO US[place] [facility] May 03, 2017 09:34 PM INPT TOBACCO COUNSELING [place] [facility] May 03, 2017 09:34 PM INPT TOBACCO USER CAROLYNO GERDA [facility] Sep 18, 2016 01:36 PM FORMER TOBACCO USE <1Y [facility] Aug 10, 2016 03:54 PM INPT TOBACCO USE - PT REFUSED [facility] Aug 01, 2016 06:48 PM INPT TOBACCO COUNSELING [place] [facility] Aug 01, 2016 06:48 PM INPT TOBACCO USER CAROLYNO GERDA [facility] Feb 08, 2015 09:57 AM CURRENT TOBACCO USER LAWSON HUMPHRIESLIS [facility] Nov 29, 2013 10:37 AM CURRENT TOBACCO USER LAWSON HUMPHRIESS [facility] Nov 26, 2013 11:09 AM PATIENT IS TOBACCO USER ANAID EPPSPOLIS [facility] Nov 27, 2012 12:12 PM CURRENT TOBACCO USER LAWSON HUMP[facility]RIESLIS [facility] Dec 27, 2011 09:44 AM CURRENT TOBACCO USER LAWSON HUMPHRIESLIS [facility] Jan 22, 2011 02:38 PM CURRENT TOBACCO USER [facility] KRISTELS [facility] Mar 13, 2010 12:[address] US[address] [facility] Advance Directives: All historical and current Section Date Range: From patient's date of to the date document was created. This section includes ALL of a patient's completed or amended [place] Advance and Rescinded Directives. The entries below indicate that a directive exists for the patient, but an actual copy is not included with this document. The data comes from all [place] facilities. Date Advance Directives Provider Source Feb 25, 2018 ADVANCE DIRECTIVE [facility]A MORALES [facility] Feb 24, 2018 ADVANCE DIRECTIVE DISCUSSION [facility]ORA MORALES [facility] May 26, 2017 CLINICAL [address]O CONTRER[address] [facility] May 03, 2017 CLINICAL WARN[address]IAH ENGLE [facility] Aug 10, 2016 CLINICAL WARNING ISABEL BARCENAS [facility] Aug 02, 2016 CLINICAL WARNING [facility]A ALMAZAN [facility] Encounter Notes: All associated encounter notes This section contains the clinical notes associated to the Encounter. Date/Time Encounter Note(s) Provider Source Jun 26, 2022 02:46 PM SOCIAL WORK DISCHARGE NOTE: SUDHA BROWN [facility] LOCAL TITLE: SW SOCIAL WORK D/C NOTE STANDARD TITLE: SOCIAL WORK DISCHARGE NOTE DATE OF NOTE: JUN 26, 2022@14:46 ENTRY DATE: JUN 26, 2022@14:46:30 AUTHOR: EDWARDO BROWN EXP COSIGNER: URGENCY: STATUS: COMPLETED This advertising copy writer has been working with or on behalf o f to arrange 's discharge/transfer. Details of the dis charge follow: will be discharged home. Address: [address] [place] [address] Phone: Patient Patient Cell Phone: Anticipated discharge date is Jun@16:30. Transportation arrangements: Other: [facility] to [place]; can accommodate SBA per discussion with VTS Ruba and patient's bedside RN Comment: to d/c home with [facility] services. Property Assistant collaborated with patient's bedside RN, Kavin Arana, and MD Miranda. Property Assistant is co- signing [facility] to [facility]'s [facility] needs. ----- Property Assistant met with patient at bedside for d/c plann ing. discussed visits with PT and OT and drinking with advertising copy writer. Per PT consult and discussion with advertising copy writer, erlin carrillo lives in an apartment addition attached to his children's house with h is . Patient discussed that following his recent admission to [facility] services were ordered that have not yet started to ma ke sure my medications were right and assist with bathing. Patient stated he would p refer these services be through [facility]. Property Assistant informed patient that she would request provider place a [facility] consult. Patient further discussed accidently pulling out his catheter last night and not realizing what it was. Patient stated I'm g ood except for bleeding from my penis and stated belief that catheter will r emain for 5 days. *06/25/2022 PT d/c recommendation: home *Per verbal discussion with OT today, OT boone ng recommendations to home with [facility] services for assistance with ADLS and SNV for medication management in addition to outpatient OT. Regarding drinking, patient stated I'm done, c iting concerns for health. Patient discussed that he does not feel [facility] with [facility] use as indicated in [facility] consult. Erlin carrillo discussed that his also drinks. Patient states his son removed all alcohol and weed from home while patient was inpatient. Patient stated he d oes intend to continue to smoke weed. Patient deferred to son Grayson as in charge. Property Assistant utilized motivational interviewing techniques. /mikal/ BALDO LEAL FLIGHT TEACHER Signed: 06/26/2022 14:56 Receipt Acknowledged By: * AWAITING SIGNATURE * LAURO WOODY * AWAITING SIGNATURE * ALESSANDRO TRIPLETT
--- OUTSIDE RECORDS SUMMARY | 2022-07-04 09:19 | XMS_ITS | Encounter Summary ---
:1950 Author Organization [facility] Address [address] [place] [address] Support Name Relationship Address Phone MADELIN MANTILLA Unavailable [address] [phone] [place] [address] MADELIN MANTILLA Unavailable [address] [phone] [place] [address] DHAVAL MANTILLA Unavailable [address] [place] [address] Insurance Providers: All historical and current Section [...] MEDICARE MEDICARE PART Jul 18, PART B [id number] ANNALEE BUSTILLO (WNR) (M) B [id number] ,REGI MEDICARE MEDICARE PART Apr 17, PART A [id number] ANNALEE BUSTILLO (WNR) (M) A [id number] ,REGI Selected Encounter This section includes the information on record at MD for the Encounter. Date/Time Encounter Type Encounter Description Reason Provider Source Jun 25, 2022 01:00 Inpatient Visit ADMIN [place]T [place] SYChelita KRISHNA,[place] AM ([facility]) IHE Encounter Template Text not [...] The data comes from all MD treatment [facility]. Appointment Date/Time Appointment Type Appointment Facili ty Name Jul 12, 2022 09:20 AM AMBULATORY - SURGERY [facility] S Jul 19, 2022 07:00 AM AMBULATORY - NONE [facility] Jul 19, 2022 08:00 AM AMBULATORY - MEDICINE [facility] Jul 19, 2022 09:00 AM AMBULATORY - MEDICINE [facility] Jul 25, 2022 09:00 AM AMBULATORY - NONE [facility] Jul 25, 2022 10:30 AM AMBULATORY - NONE [facility] Jul 25, 2022 11:00 AM AMBULATORY - SURGERY [facility] Jul 25, 2022 12:30 PM AMBULATORY - NONE [facility] Aug 05, 2022 11:00 AM AMBULATORY - NONE [facility] Nov 20, 2022 10:30 AM AMBULATORY - MEDICINE [facility] Nov 20, 2022 11:00 AM AMBULATORY - MEDICINE [facility] Nov 20, 2022 11:30 AM AMBULATORY - MEDICINE SLEEPY [...] from all [facility]. Test Date/Time Test Type Test Details Facility Name May 15, 2022 12:00 Laboratory - COVID-19 AND FLU/RSV DIAG [facility] AM Chemistry Order PANEL(CEPHEID) NASOPHARYNGEAL SWAB STAT ONCE Jun 24, 2022 06:55 Laboratory - EXTRA BLUE TUBE PLASMA WC [facility] PM Chemistry Order Jun 24, 2022 06:55 Laboratory - EXTRA GOLD GEL TUBE SERUM [facility] PM Chemistry Order Jun 24, 2022 06:55 Laboratory - EXTRA PURPLE TUBE BLOOD [facility] PM Chemistry Order Jun 24, 2022 06:55 Laboratory - EXTRA MINT TUBE PLASMA WC [facility] PM Chemistry Order Jun 28, 2022 04:57 Consult Order NEUROSURGERY OUTPT Cons [place] [facility] PM Enrollment Management Director's Choice Jun 28, 2022 05:00 Consult Order UROLOGY OUTPT [place] [facility] PM Enrollment Management Director's Choice Jul 10, 2022 12:00 Laboratory - RHEUMATOLOGY CHEM PANEL [facility] AM Chemistry Order PLASMA SP ONCE Jul 10, 2022 12:00 Laboratory - RHEUMATOLOGY HEME PANEL [facility] AM Chemistry Order BLOOD SP ONCE Jul 25, 2022 10:30 Imaging - General CERVICAL SPINE 4 OR 5 [facility] AM Radiology Order VIEWS Lab Results: +/- [...] Range Comment Jun 24, 2022 09:29 PM [facility] URINALYSIS Specim en Type: URINE No comment enter ed. Ordering Provid er: JAYDE MENDOZA Report Released Date/Time: Jun 24, 2022 06:55 PM Reporting Lab: [facility] [address] [facility] [address] Performing Lab: [facility] [address] [facility] [address] URINE COLOR YELLOW SPECIFIC GRAVITY 1.039 H [...] 25 NEGATIVE Jun 24, 2022 08:24 PM [facility] AST/SGOT Specim en Type: PLASMA No comment enter ed. Ordering Provid er: JAYDE MENDOZA Report Released Date/Time: Jun 24, 2022 08:09 PM Reporting Lab: [facility] [address] [facility] [address] Performing Lab: [facility] [address] [facility] [address] AST/SGOT 19 <34 Jun 24, 2022 08:24 PM [facility] POTASSIUM Specim en Type: PLASMA No comment enter ed. Ordering Provid er: JAYDE MENDOZA Report Released Date/Time: Jun 24, 2022 08:09 PM Reporting Lab: [facility] [address] [facility] [address] Performing Lab: [facility] [address] [facility] [address] POTASSIUM 4.9 3.5-5.1 Jun 24, 2022 08:24 PM [facility] PROTEIN,TOTAL Specim en Type: PLASMA No comment enter ed. Ordering Provid er: JAYDE MENDOZA Report Released Date/Time: Jun 24, 2022 08:09 PM Reporting Lab: [facility] [address] [facility] [address] Performing Lab: [facility] [address] [facility] [address] PROTEIN,TOTAL 6.8 6.0-8.3 Jun 24, 2022 07:40 [facility] PROTHROMBIN TIME/INR Spec imen Type: PLASMA PM No comment enter ed. Ordering Provid er: JAYDE MENDOZA Report Released Date/Time: Jun 24, 2022 06:55 PM [facility] [address] Performing Lab: [facility] [address] .INR 1.1 0.8-1.1 .PT 12.1 9.4-12.5 Jun 24, 2022 07:32 [facility] COVID-19 DIAGNOSTIC Speci men Type: NASOPHARYNGEAL PM PANEL (CEPHEID) Comment: Cephei d GeneXpert (618) Ordering Provid er: JAYDE MENDOZA Report Released Date/Time: Jun 24, 2022 06:55 PM Reporting Lab: [facility] [address] [facility] [address] Performing Lab[facility] [address] COVID-19 (CEPHEID) Not Detected Not Dete cted Jun 24, 2022 07:29 PM [facility] CBC & DIFF Specim en Type: BLOOD Comment: [place] d Platelets. Invitro artefact. No clinical significance. Platelet count may be higher than stated value. Plt count = 214 K-cmm Manual Differential Performed Ordering Provid er: JAYDE MENDOZA Report Released Date/Time: Jun 24, 2022 06:55 PM Reporting Lab: [facility] [address] [facility] [address] Performing Lab: [facility] [address] WBC 9.67 4.0-11.0 RBC 3.36 L 4.6-6.2 [...] canc .RBC MORPHOLOGY PRESENT Jun 24, 2022 [facility] COMPREHENSIVE METABOLIC Spec imen Type: PLASMA 07:29 PM PANEL+MG Comment: Cancel lation reported to: Rajni Giraldo RN on 06/24/22@2004 by [place]. Test result cancelled due to hemolysis interference in sample. Ordering Provid er: JAYDE MENDOZA Report Released Date/Time: Jun 24, 2022 06:55 PM Reporting Lab: [facility] [address] [facility] [address] Performing Lab: [facility] [address] [facility] [address] CREATININE 1.3 H 0.7-1.2 UREA NITROGEN 19 [...] 2021 11:52 /min mm[Hg] [facility] Jun 25, 98.0 F 59 103/65 19 /min 91 % 8 [place] 2021 05:23 /min mm[Hg] [facility] Jun 25, 98.3 F 58 110/70 18 /min 93 % 8 [place] 2021 04:41 /min mm[Hg] [facility] Jun 25, 5 [place] 2021 08:23 [facility] Jun 25, 99.4 F 73 115/71 16 /min 89 % [place] 2021 08:10 /min mm[Hg] [facility] Social History: Smoking Status (Most current) [...] 2022 01:30 PM VA-TOBACCO FORMER USER [facility] Tobacco Use History This section includes a history of the smoking, or tobacco- related health factors, that were collected on or before the date of the Encounter. The data comes from the MD facility where the Encounter took place. Date/Time Smoking Status/Tobacco Use Comment [facility] Mar 05, 2022 01:30 PM VA-TOBACCO QUIT 1 TO < 5 YRS [facility] Jun 01, 2021 02:00 PM VA-TOBACCO NEVER USED [place] [facility] Dec 31, 2019 10:54 AM VA-TOBACCO FORMER USER [facility] Dec 31, 2019 10:54 AM VA-TOBACCO QUIT < 1 YEAR [place] [facility] March 23, 2019 09:53 AM VA-TOBACCO FORMER USER [facility] March 23, 2019 09:53 AM VA-TOBACCO QUIT < 1 YEAR [place] [facility] Jun 10, 2018 10:00 AM CURRENT TOBACCO USER [place] [facility] May 10, 2018 07:27 PM IN[place] TOBACCO COUNSELING [place] [facility] May 10, 2018 07:27 PM INPT TOBACCO USER CAROLYNO GERDA [facility] Aug 29, 2017 09:55 AM FORMER TOBACCO USE <1Y [facility] May 26, 2017 10:51 PM INPT TOBACCO COUNSELING [place] [facility] May 26, 2017 10:51 PM INPT TOBACCO USER CAROLYNO GERDA [facility] May 03, 2017 09:34 PM INPT [place]BAC[place] COUNSELING [place] [facility] May 03, 2017 09:34 PM INPT TOBACCO USER CAROLYNO GERDA [facility] Sep 18, 2016 01:36 PM FORMER TOBACCO USE <1Y [facility] Aug 10, 2016 03:54 PM INPT TOBACCO USE - PT REFUSED [facility] Aug 01, 2016 06:48 PM [facility] [place] [facility] Aug 01, 2016 06:48 PM INPT TOBACCO USER [facility] Feb 08, 2015 09:57 AM CURRENT TOBACCO USER [facility] ANNS [facility] Nov 29, 2013 10:37 AM CURRENT TOBACCO USER [facility] Nov 26, 2013 11:09 AM [facility] Nov 27, 2012 12:12 PM CURRENT TOBACCO USER [facility] [place] KRISTELChelita [facility] Dec 27, 2011 09:44 AM CURRENT TOBACCO USER LAWSON ADAME [facility] Jan 22, 2011 02:38 PM CURRENT [facility]BACCO [facility]ER [facility] Mar 13, 2010 12:48 PM CURRENT TOBACCO USER [facility] Advance Directives: All historical and current [...] Feb 25, 2018 ADVANCE DIRECTIVE AURORA MORALES [facility] Feb 24, 2018 ADVANCE DIRECTIVE DISCUSSION AURORA MORALES [facility] May 26, 2017 CLINICAL WARNING MAGO CONTRERAS [facility] May 03, 2017 CLINICAL WARNING SARIAH ENGLE [facility] Aug 10, 2016 CLINICAL WARNING ISABEL BARCENAS [facility] Aug 02, 2016 CLINICAL WARNING AURORA ALMAZAN [facility] Encounter Notes: All associated encounter notes This section contains the clinical notes associated to the Encounter. Date/Time Encounter Note(s) Provider Source Jun 25, 2022 01:00 AM CRITICAL CARE UNIT NOTE: SYSTEM,[place] Lamar [facility] LOCAL TITLE: [facility] RESPIRATORY THERAPY FLOWSHEET STANDARD TITLE: CRITICAL CARE UNIT NOTE DATE OF NOTE: JUN 25, 2022@01:00 ENTRY DATE: JUN 26, 2022@15:06:55 AUTHOR: BIENVENIDO EDEN EXP COSIGNER: URGENCY: STATUS: COMPLETED This is a place [place] only. Please see VISTA Im aging to view document. /es/ [facility] SYSTEM ICU DOCUMENT IMPORT Signed: 06/26/2022 15:06
--- OUTSIDE RECORDS SUMMARY | 2022-07-04 09:19 | XMS_ITS | Encounter Summary ---
:1950 Author Organization [facility] Address [address] [place] [address] Support Name Relationship Address Phone MADELIN MANTILLA Unavailable [address] [phone] [place] [address] MADELIN MANTILLA Unavailable [address] [phone] [place] [address] DHAVAL MANTILLA Unavailable [address] [place] [address] Insurance Providers: All historical and current Section [...] MEDICARE MEDICARE PART Jul 18, PART B [id number] ANNALEE BRYANIENT (WNR) (M) B 2014A [phone] ,REGI MEDICARE MEDICARE PART Apr 17, PART A [id number] ANNALEE Cardenas ATIENT (WNR) (M) A [phone] ,REGI Selected Encounter This section includes the information on record at [place] for the Encounter. Date/Time Encounter Type Encounter Description Reason Provider Source Jun 26, 2022 03:08 PM Inpatient Visit CLINICAL PHARMACY IHE Encounter Template Text not used by [...] [facility] S Jul 19, 2022 07:00 AM AMBULATORY - NONE [facility] Jul 19, 2022 08:00 AM AMBULATORY - MEDICINE [facility] CS Jul 19, 2022 09:00 AM AMBULATORY - MEDICINE [facility] CS Jul 25, 2022 09:00 AM AMBULATORY - NONE [facility] Jul 25, 2022 10:30 AM AMBULATORY - NONE [facility] Jul 25, 2022 11:00 AM AMBULATORY - SURGERY [facility] S Jul 25, 2022 12:30 PM AMBULATORY - NONE [facility] Aug 05, 2022 11:00 AM AMBULATORY - NONE [facility] Nov 20, 2022 10:30 AM AMBULATORY - MEDICINE [facility] CS Nov 20, 2022 11:00 AM AMBULATORY - MEDICINE [facility] CS Nov 20, 2022 11:30 AM AMBULATORY - MEDICINE [facility] Active, Pending, and Scheduled Orders This section includes a listing of several types of active, pending, and scheduled orders, including clinic medications orders, diagnostic test orders, procedure orders and consult orders; where the start date of the order is 45 days before the date of the Encounter or 45 days after the date of the Encounter. The data comes from all [place] treatment [facility]. Test Date/Time Test Type Test [...] 06:55 Laboratory - EXTRA PURPLE TUBE BLOOD [facility] PM Chemistry Order WC Jun 24, 2022 06:55 Laboratory - EXTRA MINT TUBE PLASMA WC [facility] PM Chemistry Order Jun 28, 2022 04:57 Consult Order NEUROSURGERY OUTPT Cons [place] [facility] PM Supervisor [employer] Jun 28, 2022 05:00 Consult Order UROLOGY OUTPT [place] [facility] PM Supervisor [employer] Choice Jul 10, 2022 12:00 Laboratory - RHEUMATOLOGY CHEM PANEL [facility] AM Chemistry Order PLASMA SP ONCE Jul 10, 2022 12:00 Laboratory - RHEUMATOLOGY HEME PANEL [facility] AM Chemistry Order BLOOD SP ONCE Jul 25, 2022 10:30 Imaging - General CERVICAL SPINE 4 OR 5 [facility] AM Radiology Order VIEWS Lab Results: +/- 30 days of the encounter This section includes the Chemistry and Hematology Lab Results on record with [place] for the patient. Radiology Reports and Pathology Reports are provided separately, in subsequent sections.Lab Results This section contains the Chemistry/Hematology Results that were resulted 30 days before or 30 daysafter the date of the Encounter. Date/Time Source Result Type Result - Unit Interpretation Reference Range Comment Jun 24, 2022 09:29 PM [facility] URINALYSIS Specim en Type: URINE No comment enter ed. Ordering Provid er: JAYDE MENDOZA Report Released Date/Time: Jun 24, 2022 06:55 PM Reporting Lab: [facility] [address] [facility] [id number] Performing Lab: [facility] [address] [facility] [id number] URINE COLOR YELLOW SPECIFIC GRAVITY 1.039 H [...] 25 NEGATIVE Jun 24, 2022 08:24 PM [facility] POTASSIUM Specim en Type: PLASMA No comment enter ed. Ordering Provid er: JAYDE MENDOZA Report Released Date/Time: Jun 24, 2022 08:09 PM Reporting Lab: [facility] [address] [facility] [address] Performing Lab: [facility] [address] [facility] [address] POTASSIUM 4.9 3.5-5.1 Jun 24, 2022 08:24 PM [facility] AST/SGOT Specim en Type: PLASMA No comment enter ed. Ordering Provid er: JAYDE MENDOZA Report Released Date/Time: Jun 24, 2022 08:09 PM Reporting Lab: [facility] [address] [facility] [address] Performing Lab: [facility] [address] [facility] [address] AST/SGOT 19 <34 Jun 24, 2022 08:24 PM [facility] PROTEIN,TOTAL Specim en Type: PLASMA No comment enter ed. Ordering Provid er: JAYDE MENDOZA Report Released Date/Time: Jun 24, 2022 08:09 PM Reporting Lab: [facility] [address] [facility] [address] Performing Lab: [facility] [address] [facility] [address] PROTEIN,TOTAL 6.8 6.0-8.3 Jun 24, 2022 07:40 [facility] PROTHROMBIN TIME/INR Spec imen Type: PLASMA PM No comment enter ed. Ordering Provid er: JAYDE MENDOZA Report Released Date/Time: Jun 24, 2022 06:55 PM Reporting Lab: [facility] [id number] Performing Lab: [facility] [address] .INR 1.1 0.8-1.1 .PT 12.1 9.4-12.5 Jun 24, 2022 07:32 [facility] COVID-19 DIAGNOSTIC Speci men Type: NASOPHARYNGEAL PM PANEL (CEPHEID) Comment: Cephei d GeneXpert (618) Ordering Provid er: JAYDE MENDOZA Report Released Date/Time: Jun 24, 2022 06:55 PM [facility] [address] Performing Lab: [facility] [address] COVID-19 (CEPHEID) Not Detected Not Dete cted Jun 24, 2022 [facility] COMPREHENSIVE METABOLIC Spec imen Type: PLASMA 07:29 PM PANEL+MG Comment: Cancel lation reported to: Rajni Giraldo RN on 06/24/22@2004 by Test result cancelled due to hemolysis interference in sample. Ordering Provid er: JAYDE MENDOZA Report Released Date/Time: Jun 24, 2022 06:55 PM Reporting Lab: [facility] [address] [facility] [address] Performing Lab: [facility] [address] CREATININE 1.3 H 0.7-1.2 UREA NITROGEN 19 [...] L >60 Jun 24, 2022 07:29 PM [facility] CBC & DIFF Specim en Type: BLOOD Comment: Clum[place] d Platelets. Invitro artefact. No clinical significance. Platelet count may be higher than stated value. Plt count = 214 K-cmm Manual Differential Performed Ordering Provid er: JAYDE MENDOZA Report Released Date/Time: Jun 24, 2022 06:55 PM Reporting Lab: [facility] [address] Performing Lab: [facility] [id number] WBC 9.67 4.0-11.0 RBC 3.36 L 4.6-6.2 [...] dy Source Pressure Rate Mass Index Jun 26.3 F 61 99/63 16 /min 90 % 8 [facility] 08:32 /min mm[Hg] [facility] Jun 26 [facility] 2021 03:48 [facility] Jun 26 [facility] 2021 03:48 [facility] Social History: Smoking Status (Most current) and Tobacco Use (All prior to encounter date) This section includes the most current, and the historical, smoking and tobacco-related health factors from the [place] facility where the Encounter took place.Current Smoking [...] VA-TOBACCO QUIT 1 TO < 5 YRS [facility] Jun 01, 2021 02:00 PM [facility]ACCO [facility] USED [facility] Dec 31, 2019 10:54 AM VA-TOBACCO FORMER USER [facility] Dec 31, 2019 10:54 AM [place]-TO[place]ACCO QUIT < 1 [facility] March 23, 2019 09:53 AM VA-TOBACCO FORMER USER [facility] March 23, 2019 09:53 AM VA-TOBACCO QUIT < 1 YEAR [facility] Jun 10, 2018 10:00 AM CURRENT TOBACCO USER [place] [facility] May 10, 2018 07:27 PM IN[place] TOBACCO COUNSELING [place] [facility] May 10, 2018 07:27 PM [facility] [place] [facility] Aug 29, 2017 09:55 AM FORMER TOBACCO USE <1Y [facility] May 26, 2017 10:51 PM INPT TOBACCO COUNSELING [place] [facility] May 26, 2017 10:51 PM INPT TOBACCO USER [place] [facility] May 03, 2017 09:34 PM INPT TOBACCO COUNSELING [place] [facility] May 03, 2017 09:34 PM INPT TOBACCO USER [place] [facility] Sep 18, 2016 01:36 PM FORMER TOBACCO USE <1Y [facility] Aug 10, 2016 03:54 PM INPT TOBACCO USE - PT REFUSED [facility] Aug 01, 2016 06:48 PM INPT TOBACCO COUNSELING [place] [facility] Aug 01, 2016 06:48 PM INPT TOBACCO USER GONZALES LORENZ [facility] Feb 08, 2015 09:57 AM CURRENT TOBACCO USER LAW[place] ADAME [facility] Nov 29, 2013 10:37 AM CURRENT TOBACCO USER LASWON [facility] Nov 26, 2013 11:09 AM PATIENT IS TOBACCO USER ANAID GARCIA [facility] Nov 27, 2012 12:12 PM CURRENT TOBACCO USER [facility] Dec 27, 2011 09:44 AM CURRENT TOBACCO USER [place] JUAREZS [facility] Jan 22, 2011 02:38 PM CURRENT TOBACCO USER [facility] J[facility]AREZ[facility] Mar 13, 2010 12:48 PM CURRENT TOBACCO USER [facility] K[facility]STEL[facility] Advance Directives: All historical and current [...] Feb 25, 2018 ADVANCE DIRECTIVE AURORA MORALES [facility] Feb 24, 2018 ADVANCE DIRECTIVE DISCUSSION AURORA MORALES [facility] May 26, 2017 CLINICAL WARNING MAGO CONTRERAS [facility] May 03, 2017 CLINICAL WARNING SARIAH ENGLE [facility] Aug 10, 2016 CLINICAL WARNING BARCENASISABEL [facility] Aug 02, 2016 CLINICAL WARNING ALMAZANAURORA Carla [facility] Encounter Notes: All associated encounter notes This section contains the clinical notes associated to the Encounter. Date/Time Encounter Note(s) Provider Source Jun 26, 2022 03:08 PHARMACY EDUCATION NOTE: BASILIO JORDAN RADHA [facility] PM LOCAL TITLE: EDUCATION PHARMACY MED INSTRUCTION /RECONCILIATION STANDARD TITLE: PHARMACY EDUCATION NOTE DATE OF NOTE: JUN 26, 2022@15:08 ENTRY DATE: JUN 26, 2022@15:08:53 AUTHOR: BASILIO JORDAN EXP COSIGNER: URGENCY: STATUS: COMPLETED MEDICATION DISCHARGE EDUCATION LEARNING NEEDS/OBJECTIVES Participant(s) indicates readiness to learn and has been instructed on indications, side effects, direct ions for use and given a list of medications. Participant(s) gerber l receive medication information sheets for medications filled. Education included discussion of the following: No changes in medications. Tobacco Cessation Discharge Plan Not Applicable Active Outpatient Medications (including Suppli es): Outpatient Medications Status 1) ACETAMINOPHEN 500MG TAB TAKE TWO TABLETS BY MOUTH ACTIVE FOUR TIMES A DAY NEEDED *NOT TO EXCEED 4000M G IN 24 HOURS* FOR PAIN 2) ADALIMUMAB 40MG/0.8ML INJ PEN KIT INJECT 40 MG UNDER ACTIVE THE SKIN EVERY 2 WEEKS 3) AMIODARONE HCL (PACERONE) 200MG TAB TAKE ONE TABLET ACTIVE BY MOUTH EVERY DAY FOR HEART RHYTHM - TAKE WITH FOOD 4) APIXABAN 5MG TAB TAKE ONE TABLET BY MOUTH EV NOHEMI 12 ACTIVE HOURS TO PREVENT BLOOD CLOTS & STROKE. 5) ATORVASTATIN CALCIUM 80MG TAB TAKE ONE TABLE T BY ACTIVE MOUTH AT BEDTIME FOR CHOLESTEROL REPLACES SIMVASTATIN 6) CARBOXYMETHYLCELLULOSE NA 0.25% OPH SOLN INS TILL 1 ACTIVE DROP IN BOTH EYES FOUR TIMES A DAY 7) CYANOCOBALAMIN 1000MCG TAB TAKE ONE TABLET B Y MOUTH ACTIVE EVERY DAY 8) FOLIC ACID 1MG TAB TAKE ONE TABLET BY MOUTH EVERY DAY ACTIVE 9) ISOSORBIDE MONONITRATE 60MG SA TAB TAKE ONE- HALF ACTIVE TABLET BY MOUTH EVERY DAY 10) METOPROLOL TARTRATE 50MG TAB TAKE ONE TABLE T BY MOUTH ACTIVE TWICE A DAY 11) PANTOPRAZOLE NA 40MG EC TAB TAKE ONE TABLET BY MOUTH ACTIVE EVERY MORNING ONE-HALF HOUR BEFORE EATING TO DECREASE STOMACH ACID TAKE ON AN EMPTY STOMAC H, AT LEAST 30 MINUTES PRIOR TO MEAL 12) PREDNISONE 10MG TAB TAKE ONE TABLET BY MOUT H EVERY ACTIVE DAY 13) SULFASALAZINE 500MG TAB TAKE TWO TABLETS BY MOUTH ACTIVE TWICE A DAY Non-VA Medications Status 1) Non-VA CEPHALEXIN 500MG CAP 500MG MOUTH FOUR TIMES A ACTIVE DAY (thru 06/29/22) 2) Non-VA DOCUSATE NA 50MG/SENNOSIDES 8.6MG TAB 2 ACTIVE TABLETS MOUTH TWICE A DAY 3) Non-VA GABAPENTIN 300MG CAP 300MG MOUTH THRE E TIMES A ACTIVE DAY 4) Non-VA HEMORRHOIDAL RTL OINT THIN LAYER RECT UM FOUR ACTIVE TIMES A DAY NEEDED 5) Non-VA LIDOCAINE PATCH 1-3 PATCH 4% TOPICALL Y EVERY ACTIVE DAY 6) Non-VA METHOCARBAMOL TAB ONE-HALF TO ONE TAB LET MOUTH ACTIVE EVERY 6 HOURS NEEDED 7) Non-VA OXYCODONE TAB ONE-HALF TO ONE TABLET MOUTH ACTIVE EVERY 4 HOURS NEEDED 8) Non-VA POLYETHYLENE GLYCOL 3350 ORAL PWDR 17 GRAMS ACTIVE MOUTH TWICE A DAY 9) Non-VA TAMSULOSIN HCL 0.4MG CAP 0.4MG MOUTH EVERY DAY ACTIVE prescriptions patient may continue: CHOLECALCIF 25MCG (D3-1,000UNIT) TAB [id number] ACTIVE 100 05/08/2022 (0) TAKE ONE TABLET BY MOUTH EVERY DAY Provider: LEON,MARYELLEN H This prescription on 06/02/2022, kamini oglesby contact your primary care clinic provider for refills if/when needed FLUTICASONE PROP 50MCG 120D NASAL INHL [id number] ACTIVE 1 06/03/2021 (3) SPRAY 1 SPRAY IN EACH NOSTRIL TWICE A DAY NE EDED FOR RUNNY NOSE USE REGULARLY FOR RELIEF OF ALLERGIES/CONGESTION Provider: MARYELLEN LEON This prescription on 06/02/2022, kamini oglesby contact your primary care clinic provider for refills if/when needed LORATADINE 10MG TAB [id number] ACTIVE 90 04/24/2022 (0) TAKE ONE TABLET BY MOUTH EVERY DAY FOR ALLERGY SYMPTOMS Provider: MARYELLEN LEON This prescription on 06/02/2022, kamini oglesby contact your primary care clinic provider for refills if/when needed PARTICIPANTS: Patient TEACHING STRATEGY: Face to Face, Medication inf ormation sheets and list of medications Patient reports he believes his medications w ere picked up from the OSH at discharge, but wanted this typewriter operator automatic to double check with his daughter. This typewriter operator automatic attempted to contact his daughter, Lila @ x2 attempts, but was not able to get in touch with her prior to patient discharging. Please note, did not fill any meds at discharge since patient states he is pretty sure he has his medications at home and will call if for some reason he does not. READINESS TO LEARN No barriers identified PATIENT/FAMILY RESPONSE (OUTCOME): Verbalizes c ritical information about the topic FOLLOW-UP RECOMMENDED: As directed by discharging provider /mikal/ BASILIO JORDAN PHARMACIST Signed: 06/26/2022 15:50 Receipt Acknowledged By: * AWAITING SIGNATURE * CHET BOO
--- OUTSIDE RECORDS SUMMARY | 2022-07-04 09:20 | XMS_ITS | Encounter Summary ---
:1950 Author Organization Department [facility] Address [address] [place] [address] Support Name Relationship Address Phone MADELIN MANTILLA Unavailable [address] [phone] [place] [address] MADELIN MANTILLA Unavailable [address] [phone] [place] [address] DHAVAL MANTILLA Unavailable [address] [place] [address] Insurance Providers: All historical and current Section [...] MEDICARE MEDICARE PART Jul 18, PART B [id number] ANNALEE Cardenas ATIENT (WNR) (M) B 2014A [phone] ,REGI MEDICARE MEDICARE PART Apr 17, PART A [id number] ANNALEE Cardenas ATIENT (WNR) (M) A 2012A [phone] ,REGI Selected Encounter This section includes the information on record at [place] for the Encounter. Date/Time Encounter Type Encounter Reason Provider Source Description Jun 26, 2022 SELF CARE OCCUPATIONAL ICD-10-CM Z73.6 BALDEMAR TONG 03:20 PM MNGMENT THERAPY Limitation of Ann NAYAK TRAINING activities due to disability with Provider Comments: Limitation of activities due to disability [facility] Encounter Template Text not used by [facility] Assessments - Encounter Diagnoses This section includes the primary and secondary diagnoses documented for the Encounter. Date/Time Primary/Secondary Diagnosis Name Provider Source Diagnosis Jun 26, 2022 PRIMARY Limitation of BALDEMAR TONG [facility] 03:21 PM activities due Ann NAYAK HCS to disability Plan of Treatment: Future Appointments (+ 6 months) and Future Tests (+/- 45 days) The Plan of Treatment section includes future care activities for the patient [facility] [place] [facility] This section includes future appointments and future orders which are active, pending orscheduled.Future Appointments This section includes appointments that were scheduled to occur 6 months from the date of the Encounter, up to a maximum of 20 appointments. The data comes from all [facility]. Appointment Date/Time Appointment Type Appointment Facili ty Name Jul 12, 2022 09:20 AM AMBULATORY - SURGERY [facility] S Jul 19, 2022 07:00 AM AMBULATORY - NONE [facility] Jul 19, 2022 08:00 AM AMBULATORY - MEDICINE [facility] CS Jul 19, 2022 09:00 AM AMBULATORY - MEDICINE [facility] Jul 25, 2022 09:00 AM AMBULATORY - NONE [facility] Jul 25, 2022 10:30 AM AMBULATORY - NONE [facility] Jul 25, 2022 11:00 AM AMBULATORY - SURGERY [facility] S Jul 25, 2022 12:30 PM AMBULATORY - NONE [facility] Aug 05, 2022 11:00 AM AMBULATORY - NONE [facility] Nov 20, 2022 10:30 AM AMBULATORY - MEDICINE [facility] Nov 20, 2022 11:00 AM AMBULATORY - MEDICINE [facility] Nov 20, 2022 11:30 AM AMBULATORY - MEDICINE [facility] Active, Pending, and Scheduled Orders This section includes a listing of several types of active, pending, and scheduled orders, including clinic medications orders, diagnostic test orders, procedure orders and consult orders; where the start date of the order is 45 days before the date of the Encounter or 45 days after the date of the Encounter. The data comes from all [facility]. Test Date/Time Test Type Test Details [...] SERUM [facility] PM Chemistry Order WC Jun 24, 2022 06:55 Laboratory - EXTRA MINT TUBE PLASMA WC [facility] PM Chemistry Order Jun 24, 2022 06:55 Laboratory - EXTRA PURPLE TUBE BLOOD [facility] PM Chemistry Order WC Jun 28, 2022 04:57 Consult Order NEUROSURGERY OUTPT Cons LAWSON ADAME [facility] PM [facility] Jun 28, 2022 05:00 Consult Order UROLOGY OUTPT Cons ZEINAB Merlos [facility] PM [facility] Jul 10, 2022 12:00 Laboratory - [...] and Hematology Lab Results on record with [place] for the patient. Radiology Reports and Pathology Reports are provided separately, in subsequent sections.Lab Results This section contains the Chemistry/Hematology Results that were resulted 30 days before or 30 daysafter the date of the Encounter. Date/Time Source Result Type Result - Unit Interpretation Reference Range Comment Jun 24, 2022 09:29 PM [facility] URINALYSIS Specim en Type: URINE No comment enter ed. Ordering Provid er: JAYDE MENDOZA Report Released Date/Time: Jun 24, 2022 06:55 PM Reporting Lab: [facility] [id number] Performing Lab: [facility] [address] URINE COLOR YELLOW SPECIFIC GRAVITY 1.039 H [...] 25 NEGATIVE Jun 24, 2022 08:24 PM [facility] AST/SGOT Specim en Type: PLASMA No comment enter ed. Ordering Provid er: JAYDE MENDOZA Report Released Date/Time: Jun 24, 2022 08:09 PM Reporting Lab: [facility] [address] Performing Lab: [facility] [address] AST/SGOT 19 <34 Jun 24, 2022 08:24 PM [facility] POTASSIUM Specim en Type: PLASMA No comment enter ed. Ordering Provid er: JAYDE MENDOZA Report Released Date/Time: Jun 24, 2022 08:09 PM Reporting Lab: [facility] [address] [facility] [address] Performing Lab: [facility] [address] [facility] [address] POTASSIUM 4.9 3.5-5.1 Jun 24, 2022 08:24 PM [facility] PROTEIN,TOTAL Specim en Type: PLASMA No comment enter ed. Ordering Provid er: JAYDE MENDOZA Report Released Date/Time: Jun 24, 2022 08:09 PM Reporting Lab: [facility] [address] [facility] [address] Performing Lab: [facility] [address] [facility] [address] PROTEIN,TOTAL 6.8 6.0-8.3 Jun 24, 2022 07:40 [facility] PROTHROMBIN TIME/INR Spec imen Type: PLASMA PM No comment enter ed. Ordering Provid er: JAYDE MENDOZA Report Released Date/Time: Jun 24, 2022 06:55 PM Reporting Lab: [facility] [address] [facility] [address] Performing Lab: [facility] [address] [facility] [address] .INR 1.1 0.8-1.1 .PT 12.1 9.4-12.5 Jun 24, 2022 07:32 [facility] COVID-19 DIAGNOSTIC Speci men Type: NASOPHARYNGEAL PM PANEL (CEPHEID) Comment: Bryan rodriguez GeneXpert (618) Ordering Provid er: JAYDE MENDOZA Report Released Date/Time: Jun 24, 2022 06:55 PM Reporting Lab: [facility] [address] [facility] [address] Performing Lab: [facility] [address] [facility] [address] COVID-19 (CEPHEID) Not Detected Not Dete cted Jun 24, 2022 [facility] COMPREHENSIVE METABOLIC Spec imen Type: PLASMA 07:29 PM PANEL+MG Comment: Cancel lation reported to: Rajni Giraldo RN on 06/24/22@2004 by [place]. Test result cancelled due to hemolysis interference in sample. Ordering Provid er: JAYDE MENDOZA Report Released Date/Time: Jun 24, 2022 06:55 PM Reporting Lab: [facility] [address] Performing Lab: [facility] [address] CREATININE 1.3 H 0.7-1.2 UREA NITROGEN 19 [...] L >60 Jun 24, 2022 07:29 PM [facility] CBC & DIFF Specim en Type: BLOOD Comment: Clumpe d Platelets. Invitro artefact. No clinical significance. Platelet count may be higher than stated value. Plt count = 214 K-cmm Manual Differential Performed Ordering Provid er: JAYDE MENDOZA Report Released Date/Time: Jun 24, 2022 06:55 PM Reporting Lab: [facility] [address] Performing Lab: [facility] [address] WBC 9.67 4.0-11.0 RBC 3.36 L 4.6-6.2 [...] 61 99/63 16 /min 90 % 8 [facility]2021 08:32 /min mm[Hg] [facility] Jun 26, [facility] 2021 03:48 [facility] Jun 26, [facility] 2021 03:48 [facility] Social History: Smoking Status (Most current) and Tobacco Use (All prior to encounter date) This section includes the most current, and the historical, smoking and tobacco-related health factors from the [place] facility where the Encounter took place.Current Smoking Status This section includes the most current smoking, or tobacco-related health factor, from the [place] facility where the Encounter took place. Date/Time Current Smoking Status Comment Facility Mar 05, 2022 01:30 PM VA-TOBACCO FORMER USER [facility] Tobacco Use History This section includes a history of the smoking, or tobacco- related health factors, that were collected on or before the date of the Encounter. The data comes from the [place] facility where the Encounter took place. Date/Time Smoking Status/Tobacco Use Comment [facility] Mar 05, 2022 01:30 PM VA-TOBACCO QUIT 1 TO < 5 YRS [facility] Jun 01, 2021 02:00 PM VA-TOBACCO NEVER USED [place] [facility] Dec 31, 2019 10:54 AM VA-TOBACCO FORMER USER [facility] Dec 31, 2019 10:54 AM [facility] QUIT < [facility] March 23, 2019 09:53 AM VA-TOBACCO FORMER USER [facility] March 23, 2019 09:53 AM VA-TOBACCO QUIT < 1 YEAR [place] [facility] Jun 10, 2018 10:00 AM CURRENT TOBACCO USER [place] [facility] May 10, 2018 07:27 PM INPT TOBACCO COUNSELING [place] [facility] May 10, 2018 07:27 PM INPT TOBACCO USER [place] GER[place] [facility] Aug 29, 2017 09:55 AM FORMER TOBACCO USE <1Y [facility] May 26, 2017 10:51 PM INPT TOBACCO COUNSELING [place] [facility] May 26, 2017 10:51 PM INPT TOBACCO USER CAROLYNO GERDA [facility] May 03, 2017 09:34 PM INPT TOBACCO COUNSELING [place] RADHA [facility] May 03, 2017 09:34 PM INPT TOBACCO USER CAROLYNO GERDA [facility] Sep 18, 2016 01:36 PM FORMER TOBACCO USE <1Y [facility] Aug 10, 2016 03:54 PM INPT TOBACCO USE - PT REFUSED [facility] Aug 01, 2016 06:48 PM INPT TOBACCO COUNSELING ANAID EPPSFOX [facility] Aug 01, 2016 06:48 PM INPT TOBACCO USER CAROLYNO [facility] Feb 08, 2015 09:57 AM CURRENT [facility]ACCO [facility]ER [facility] Nov 29, 2013 10:37 AM CURRENT TOBACCO USER [facility] Nov 26, 2013 11:09 AM PATIENT IS [facility]BACCO USER [facility] Nov 27, 2012 12:12 PM CURRENT TOBACCO USER [facility]ELChelita [facility] Dec 27, 2011 09:44 AM CURRENT TOBACCO USER [facility] Jan 22, 2011 02:38 PM CURRENT TOBACCO USER [facility] Mar 13, 2010 12:48 PM CURRENT TOBACCO USER [facility] Advance Directives: All historical and current Section Date Range: From patient's date of to the date document was created. This section includes ALL of a patient's completed or amended [place] Advance and Rescinded Directives. The entries below indicate that a directive exists for the patient, but an actual copy is not included with this document. The data comes from all [place] facilities. Date Advance Directives Provider Source Feb [...]
--- OUTSIDE RECORDS SUMMARY | 2022-07-04 09:20 | XMS_ITS ---
DAILY HOSPITALIZATION DATA [facility] Encounter Summary Created on:June 26, 2022 Patient:REGI MANTILLA Sex:Male :1950 Author Organization [facility] Address [address] [place] [address] Support Name Relationship Address Phone MADELIN MANTILLA Unavailable [address] [phone] [place] [address] MADELIN MANTILLA Unavailable [address] [phone] [place] [address] DHAVAL MANTILLA Unavailable [address] [place] [address] Insurance Providers: All historical and current Section [...] MEDICARE MEDICARE PART Jul 18, PART B [id number] 800 ANNALEE BUSTILLO (WNR) (M) B 2014A [phone] ,REGI MEDICARE MEDICARE PART Apr 17, PART A [id number] 800 ANNALEE BRYANIENT (WNR) (M) A 2012A [phone] ,REGI Selected Encounter This section includes the information on record at [place] for the Encounter. Date/Time Encounter Type Encounter Description Reason Provider Source Jun 26, 2022 03:01 Inpatient Visit DAILY HOSPITALIZATION DATA PM [facility] Encounter Template Text not used by [place] Plan of Treatment: Future Appointments (+ 6 months) and Future Tests (+/- 45 days) The Plan of Treatment section includes future care activities for the patient from all [place] treatmentfacilities. This section includes future appointments and future orders which are active, pending orscheduled.Future Appointments This section includes appointments that were scheduled to occur 6 months from the date of the Encounter, up to a maximum of 20 appointments. The data comes from all [place] treatment facilities. Appointment Date/Time Appointment Type Appointment Facili ty Name Jul 12, 2022 09:20 AM AMBULATORY - SURGERY [facility] Jul 19, 2022 07:00 AM AMBULATORY - NONE [facility] Jul 19, 2022 08:00 AM AMBULATORY - MEDICINE [facility] Jul 19, 2022 09:00 AM AMBULATORY - MEDICINE [facility] Jul 25, 2022 09:00 AM AMBULATORY - NONE [facility] Jul 25, 2022 10:30 AM AMBULATORY - NONE [facility] Jul 25, 2022 11:00 AM AMBULATORY - SURGERY [facility] Jul 25, 2022 12:30 PM AMBULATORY - NONE [facility] Aug 05, 2022 11:00 AM AMBULATORY - NONE [facility] Nov 20, 2022 10:30 AM AMBULATORY - MEDICINE [facility] CS Nov 20, 2022 11:00 AM AMBULATORY - MEDICINE [facility] CS Nov 20, 2022 11:30 AM AMBULATORY - MEDICINE [facility] Active, Pending, and Scheduled Orders This section includes a listing of several types of active, pending, and scheduled orders, including clinic medications orders, diagnostic test orders, procedure orders and consult orders; where the start date of the order is 45 days before the date of the Encounter or 45 days after the date of the Encounter. The data comes from all [facility]. Test Date/Time Test Type Test Details Facility Name May 15, 2022 12:00 Laboratory - COVID-19 AND FLU/RSV DIAG [facility] AM Chemistry Order PANEL(CEPHEID) NASOPHARYNGEAL SWAB STAT WC ONCE Jun 24, 2022 06:55 Laboratory - EXTRA BLUE TUBE PLASMA WC [facility] PM Chemistry Order Jun 24, 2022 06:55 Laboratory - EXTRA GOLD GEL TUBE SERUM [facility] PM Chemistry Order Jun 24, 2022 06:55 Laboratory - EXTRA PURPLE TUBE BLOOD [facility] PM Chemistry Order WC Jun 24, 2022 06:55 Laboratory - EXTRA MINT TUBE PLASMA WC [facility] PM Chemistry Order Jun 28, 2022 04:57 Consult Order NEUROSURGERY OUTPT Cons [place] [facility] PM [employer] [facility] Jun 28, 2022 05:00 Consult Order UROLOGY OUTPT Cons [place] [facility] PM [employer] [facility] Jul 10, 2022 12:00 Laboratory - RHEUMATOLOGY CHEM PANEL [facility] AM Chemistry Order PLASMA SP ONCE Jul 10, 2022 12:00 Laboratory - RHEUMATOLOGY HEME PANEL [facility] AM Chemistry Order BLOOD SP ONCE Jul 25, 2022 10:30 Imaging - General CERVICAL SPINE 4 OR 5 [facility] AM Radiology Order VIEWS Lab Results: [...] Range Comment Jun 24, 2022 09:29 PM [facility] URINALYSIS Specim en Type: URINE No comment enter ed. Ordering Provid er: JAYDE MENDOZA Report Released Date/Time: Jun 24, 2022 06:55 PM Reporting Lab: [facility] [address] [facility] [address] Performing Lab: [facility] [address] URINE COLOR YELLOW SPECIFIC GRAVITY 1.039 H [...] 25 NEGATIVE Jun 24, 2022 08:24 PM [facility] AST/SGOT Specim en Type: PLASMA No comment enter ed. Ordering Provid er: JAYDE MENDOZA Report Released Date/Time: Jun 24, 2022 08:09 PM Reporting Lab: [facility] [address] [facility] [address] Performing Lab: [facility] [address] [facility] [address] AST/SGOT 19 <34 Jun 24, 2022 08:24 PM [facility] POTASSIUM Specim en Type: PLASMA No comment enter ed. Ordering Provid er: JAYDE MENDOZA Report Released Date/Time: Jun 24, 2022 08:09 PM Reporting Lab: [facility] [address] [facility] [address] Performing Lab: [facility] [address] [facility] [address] POTASSIUM 4.9 3.5-5.1 Jun 24, 2022 08:24 PM [facility] PROTEIN,TOTAL Specim en Type: PLASMA No comment enter ed. Ordering Provid er: JAYDE MENDOZA Report Released Date/Time: Jun 24, 2022 08:09 PM Reporting Lab: [facility] [address] [facility] [address] Performing Lab: [facility] [address] [facility] [address] PROTEIN,TOTAL 6.8 6.0-8.3 Jun 24, 2022 07:40 [facility] PROTHROMBIN TIME/INR Spec imen Type: PLASMA PM No comment enter ed. Ordering Provid er: JAYDE MENDOZA Report Released Date/Time: Jun 24, 2022 06:55 PM Reporting Lab: [facility] [address] Performing Lab: [facility] [address] .INR 1.1 0.8-1.1 .PT 12.1 9.4-12.5 Jun 24, 2022 07:32 [facility] COVID-19 DIAGNOSTIC Speci men Type: NASOPHARYNGEAL PM PANEL (CEPHEID) Comment: Cephei d GeneXpert (618) Ordering Provid er: JAYDE MENDOZA Report Released Date/Time: Jun 24, 2022 06:55 PM Reporting Lab: [facility] [address] [facility] [address] Performing [facility]: [facility] [address] COVID-19 (CEPHEID) Not Detected Not Dete cted Jun 24, 2022 [facility] COMPREHENSIVE METABOLIC Spec imen Type: PLASMA 07:29 PM PANEL+MG Comment: Cancel lation reported to: Rajni Giraldo RN on 06/24/22@2004 by [place]. Test result cancelled due to hemolysis interference in sample. Ordering Provid er: JAYDE MENDOZA Report Released Date/Time: Jun 24, 2022 06:55 PM Reporting Lab: [facility] [address] [facility] [address] Performing Lab: [facility] [address] CREATININE 1.3 H 0.7-1.2 UREA NITROGEN 19 [...] L >60 Jun 24, 2022 07:29 PM [facility] CBC & DIFF Specim en Type: BLOOD Comment: Clumpe d Platelets. Invitro artefact. No clinical significance. Platelet count may be higher than stated value. Plt count = 214 K-cmm Manual Differential Performed Ordering Provid er: JAYDE MENDOZA Report Released Date/Time: Jun 24, 2022 06:55 PM Reporting Lab: [facility] [address] [facility] [address] Performing Lab: [facility] [address] WBC 9.67 4.0-11.0 RBC 3.36 L 4.6-6.2 [...] 90 % 8 2021 08:32 /min mm[Hg] [facility] Jun 26 [facility] 2021 03:48 [place] AM [facility] Jun 26 [facility] 2021 03:48 [facility] Social History: Smoking Status (Most [...] 2022 01:30 PM VA-TOBACCO FORMER USER [facility] Tobacco Use History This section includes a history of the smoking, or tobacco- related health factors, that were collected on or before the date of the Encounter. The data comes from the [place] facility where the Encounter took place. Date/Time Smoking Status/Tobacco Use Comment Facil it Mar 05, 2022 01:30 PM VA-TOBACCO QUIT 1 TO < 5 YRS [facility] Jun 01, 2021 02:00 PM [facility]AC[facility] Dec 31, 2019 10:54 AM VA-TOBACCO FORMER USER [facility] Dec 31, 2019 10:54 AM VA-TOBACCO QUIT < 1 YEAR M [facility] March 23, 2019 09:53 AM VA-TOBACCO FORMER USER [facility] March 23, 2019 09:53 AM VA-TOBACCO QUIT < 1 YEAR M [facility] Jun 10, 2018 10:00 AM CURRENT TOBACCO USER [place] [facility] [facility] May 10, 2018 07:27 PM INPT TOBACCO COUNSELING [place] [facility] May 10, 2018 07:27 PM INPT TOBACCO USER [place] [facility] Aug 29, 2017 09:55 AM FORMER TOBACCO USE <1Y [facility] May 26, 2017 10:51 PM INPT TOBACCO COUNSELING [place] [facility] May 26, 2017 10:51 PM INPT TOBACCO USER [place] [facility] May 03, 2017 09:34 PM INPT TOBACCO COUNSELING [place] [facility] May 03, 2017 09:34 PM INPT TOBACCO USER [place] [facility] Sep 18, 2016 01:36 PM FORMER TOBACCO USE <1Y [facility] Aug 10, 2016 03:54 PM INPT TOBACCO USE - PT REFUSED [facility] Aug 01, 2016 06:48 PM INPT TOBACCO COUNSELING [place] [facility] Aug 01, 2016 06:48 PM INPT TOBACCO USER GONZALES LORENZ [facility] Feb 08, 2015 09:57 AM CURRENT TOBACCO USER LAW[place] HUMPHRIESLIS [facility] Nov 29, 2013 10:37 AM CURRENT TOBACCO USER [place] [facility] Nov 26, 2013 11:09 AM PATIENT IS TOBACCO USER [place] [facility] Nov 27, 2012 12:12 PM CURRENT TOBACCO USER LAWSON HUMPHRIESLIS [facility] Dec 27, 2011 09:44 AM CURRENT TOBACCO USER LAWSON HUMP[facility]RIESL[facility] Jan 22, 2011 02:38 PM CURRENT TOBACCO USER LAWSON HUMPHRIESLIS [facility] Mar 13, 2010 12:48 PM CURRENT TOBACCO USER LAWSON HUMPHRIESS [facility] Advance Directives: All [...] Provider Source Feb 25, 2018 ADVANCE DIRECTIVE AUROAR MORALES [facility] Feb 24, 2018 ADVANCE DIRECTIVE DISCUSSION AURORA MORALES [facility] May 26, 2017 CLINICAL WARNING MAGO CONTRERAS [facility] May 03, 2017 CLINICAL WARNING SARIAH ENGLE [facility] Aug 10, 2016 CLINICAL WARNING ISABEL BARCENAS [facility] Aug 02, 2016 CLINICAL WARNING AURORA ALMAZAN [facility]
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
--- OUTSIDE RECORDS SUMMARY | 2022-07-04 09:21 | XMS_ITS | Encounter Summary ---
:1950 Author Organization [facility] Address [address] [place] [address] Support Name Relationship Address Phone MADELIN MANTILLA Unavailable [phone] [place] [address] MADELIN MANTILLA Unavailable [address] [phone] [place] [address] DHAVAL MANTILLA Unavailable [address] [place] [address] Insurance Providers: All historical and current Section [...] MEDICARE MEDICARE PART Jul 18, PART B [id number] 800 ANNALEE BUSTILLO (WNR) (M) B 2014A [phone] ,REGI MEDICARE MEDICARE PART Apr 17, PART A [id number] 800 ANNALEE BUSTILLO (WNR) (M) A 2012A [id number] ,REGI Selected Encounter This section includes the information on record at [place] for the Encounter. Date/Time Encounter Type Encounter Description Reason Provider Source Jun 26, 2022 01:00 Inpatient Visit ADMIN CURT RICO [...] 20 appointments. The data comes from all [place] treatment [facility]. Appointment Date/Time Appointment Type Appointment Facili ty Name Jul 12, 2022 09:20 AM AMBULATORY - SURGERY [facility] S Jul 19, 2022 07:00 AM [...] 25, 2022 11:00 AM AMBULATORY - SURGERY [facility] S Jul 25, 2022 12:30 PM AMBULATORY - NONE [facility] Aug 05, 2022 11:00 AM AMBULATORY - NONE [facility] Nov 20, 2022 10:30 AM AMBULATORY - MEDICINE [facility] CS Nov 20, 2022 11:00 AM AMBULATORY - MEDICINE [facility] CS Nov 20, 2022 11:30 AM AMBULATORY - MEDICINE [facility] Active, Pending, and Scheduled Orders This section includes a listing of several types of active, pending, and scheduled orders, including clinic medications orders, diagnostic test orders, procedure orders and consult orders; where the start date of the order is 45 days before the date of the Encounter or 45 days after the date of the Encounter. The data comes from all [facility]. Test Date/Time Test Type Test Details Facility Name May 15, 2022 12:00 Laboratory - COVID-19 AND FLU/RSV DIAG [facility] AM Chemistry Order PANEL(CEPHEID) NASOPHARYNGEAL SWAB STAT ONCE Jun 24, 2022 06:55 Laboratory - EXTRA BLUE TUBE PLASMA WC [facility] PM Chemistry Order Jun 24, 2022 06:55 Laboratory - EXTRA GOLD GEL TUBE SERUM [facility] PM Chemistry Order Jun 24, 2022 06:55 Laboratory - EXTRA PURPLE TUBE BLOOD [facility] PM Chemistry Order Jun 24, 2022 06:55 Laboratory - EXTRA MINT TUBE PLASMA WC [facility] PM Chemistry Order Jun 28, 2022 04:57 Consult Order NEUROSURGERY OUTPT Cons [place] [facility] PM Html Web Developer's Choice Jun 28, 2022 05:00 Consult Order UROLOGY OUTPT [place] [facility] PM Html Web Developer's Choice Jul 10, 2022 12:00 Laboratory - RHEUMATOLOGY HEME PANEL [facility] AM Chemistry Order BLOOD SP ONCE Jul 10, 2022 12:00 Laboratory - RHEUMATOLOGY CHEM PANEL [facility] AM Chemistry Order PLASMA SP ONCE Jul 25, 2022 10:30 Imaging - General CERVICAL SPINE 4 OR 5 [facility] AM Radiology Order VIEWS Lab [...] [facility] [address] [facility] [address] Performing Lab: [facility] [address] [facility] [address] URINE COLOR YELLOW SPECIFIC GRAVITY 1.039 H [...] [facility] [address] [facility] [address] Performing Lab: [facility] [address] [facility] [address] AST/SGOT 19 <34 Jun 24, 2022 08:24 PM [facility] POTASSIUM Specim en Type: PLASMA No comment enter ed. Ordering Provid er: JAYDE MENDOZA Report Released Date/Time: Jun 24, 2022 08:09 PM Reporting Lab: [facility] [address] [facility] [address] Performing Lab: [facility] [address] [facility] [address] POTASSIUM 4.9 3.5-5.1 Jun 24, 2022 08:24 PM [facility] PROTEIN,TOTAL Specim en Type: PLASMA No comment enter ed. Ordering Provid er: JAYDE MENDOZA Report Released Date/Time: Jun 24, 2022 08:09 PM Reporting Lab: [facility] [address] [facility] [address] Performing Lab: [facility] [address] [facility] [address] PROTEIN,TOTAL 6.8 6.0-8.3 Jun 24, 2022 07:40 [facility] PROTHROMBIN TIME/INR Spec imen Type: PLASMA PM No comment enter ed. Ordering Provid er: JAYDE MENDOZA Report Released Date/Time: Jun 24, 2022 06:55 PM Reporting Lab: [facility] [address] [facility] [address] Performing Lab: [facility] [address] [facility] [address] .INR 1.1 0.8-1.1 .PT 12.1 9.4-12.5 Jun 24, 2022 07:32 [facility] COVID-19 DIAGNOSTIC Speci men Type: NASOPHARYNGEAL PM PANEL (CEPHEID) Comment: Cephei d GeneXpert (618) Ordering Provid er: JAYDE MENDOZA Report Released Date/Time: Jun 24, 2022 06:55 PM Reporting Lab: [facility] [address] [facility] [address] Performing Lab: [facility] [address] [facility] [address] COVID-19 (CEPHEID) Not Detected Not Dete cted [...] [facility] [address] [facility] [address] Performing Lab: [facility] [address] CREATININE 1.3 H 0.7-1.2 UREA NITROGEN 19 [...] Lab: [facility] ONE [facility] [address] Performing Lab: [facility] [address] WBC 9.67 4.0-11.0 RBC 3.36 L 4.6-6.2 [...] 61 99/63 16 /min 90 % 8 [place] 2021 08:32 /min mm[Hg] [facility] Jun 26 [facility] 2021 03:48 OLIS PA AM [facility] Jun 26 [facility] 2021 03:48 [facility] Social History: Smoking Status (Most current) [...] 2022 01:30 PM VA-TOBACCO FORMER USER [facility] Tobacco Use History This section includes a history of the smoking, or tobacco- related health factors, that were collected on or before the date of the Encounter. The data comes from the [place] facility where the Encounter took place. Date/Time Smoking Status/Tobacco Use Comment [facility] Mar 05, 2022 01:30 PM VA-TOBACCO QUIT 1 TO < 5 YRS [facility] Jun 01, 2021 02:00 PM VA-TOBACCO NEVER USED [place] [facility] Dec 31, 2019 10:54 AM VA-TOBACCO FORMER USER [facility] Dec 31, 2019 10:54 AM VA-TOBACCO QUIT < 1 YEAR [place] [facility] March 23, 2019 09:53 AM VA-TOBACCO FORMER USER [facility] March 23, 2019 09:53 AM VA-TOBACCO QUIT < 1 YEAR [place] [facility] Jun 10, 2018 10:00 AM CURRENT TOBACCO USER [place] [facility] May 10, 2018 07:27 PM INPT TOBACCO COUNSELING [place] [facility] May 10, 2018 07:27 PM INPT TOBACCO USER [place] [facility] Aug 29, 2017 09:55 AM FORMER TOBACCO USE <1Y [facility] May 26, 2017 10:51 PM INPT TOBACCO COUNSELING [place] [facility] May 26, 2017 10:51 PM INPT TOBACCO USER [place] [facility] May 03, 2017 09:34 PM INPT TOBACCO COUNSELING [place] [facility] May 03, 2017 09:34 PM INPT TOBACCO USER [place] [facility] Sep 18, 2016 01:36 PM FORMER TOBACCO USE <1Y [facility] Aug 10, 2016 03:54 PM INPT TOBACCO USE - PT REFUSED [facility] Aug 01, 2016 06:48 PM [facility] Aug 01, 2016 06:48 PM INPT TOBACCO USER GONZALES LORENZ [facility] Feb 08, 2015 09:57 AM CURRENT TOBACCO USER [facility] KRISTELChelita [facility] Nov 29, 2013 10:37 AM CURRENT TOBACCO USER LAWSON ADAME [facility] Nov 26, 2013 11:09 AM PATIENT IS TOBACCO USER ANAID GARCIA [facility] Nov 27, 2012 12:12 PM CURRENT TOBACCO USER LAW[facility] HUMPHRIESChelita [facility] Dec 27, 2011 09:44 AM CURRENT TOBACCO USER LAWSON ADAME [facility] Jan 22, 2011 02:38 PM [facility] Mar 13, 2010 12:48 PM CURRENT TOBACCO USER [facility] Advance Directives: All historical and [...] [facility] Encounter Notes: All associated encounter notes This section contains the clinical notes associated to the Encounter. Date/Time Encounter Note(s) Provider Source Jun 26, 2022 01:00 AM CRITICAL CARE UNIT NOTE: [facility] LOCAL TITLE: ICCA INPATIENT FLOWSHEET STANDARD TITLE: CRITICAL CARE UNIT NOTE DATE OF NOTE: JUN 26, 2022@01:00 ENTRY DATE: JUN 27, 2022@14:35:35 AUTHOR: BIENVENIDO EDEN EXP COSIGNER: URGENCY: STATUS: COMPLETED This is a place [place] only. Please see VISTA Im aging to view document. /es/ BIENVENIDO SYSTEM ICU DOCUMENT IMPORT Signed: 06/27/2022 14:35 Jun 26, 2022 01:00 AM CRITICAL CARE UNIT NOTE: BIENVENIDO EDEN [facility] TITLE: ICCA RESPIRATORY THERAPY FLOWSHEET STANDARD TITLE: CRITICAL CARE UNIT NOTE DATE OF NOTE: JUN 26, 2022@01:00 ENTRY DATE: JUN 27, 2022@15:05:02 AUTHOR: BIENVENIDO EDEN EXP COSIGNER: URGENCY: STATUS: COMPLETED This is a place [place] only. Please see VISTA Im aging to view document. /es/ BIENVENIDO SYSTEM ICU DOCUMENT IMPORT Signed: 06/27/2022 15:05
--- OUTSIDE RECORDS SUMMARY | 2022-07-04 09:22 | XMS_ITS | Encounter Summary ---
:1950 Author Organization [facility] Address [address] [place] [address] Support Name Relationship Address Phone MADELIN MANTILLA Unavailable [address] [phone] [place] [address] MADELIN MANTILLA Unavailable [address] [phone] [place] [address] DHAVAL MANTILLA Unavailable [address] [place] [address] Insurance Providers: All historical and current Section [...] MEDICARE MEDICARE PART Jul 18, PART B [id number] ANNALEE BUSTILLO (WNR) (M) B 2014 24A [phone] ,REGI MEDICARE MEDICARE PART Apr 17, PART A [id number] ANNALEE BUSTILLO (WNR) (M) A 2012A [phone] ,REGI Selected Encounter This section includes the information on record at [place] for the Encounter. Date/Time Encounter Type Encounter Description Reason Provider Source Jun 26, 2022 12:00 AM Inpatient Visit ADMIN CURT RICO (MASNONCT) IHE Encounter Template Text not used [...] The data comes from all [place] treatment [facility]. Appointment Date/Time Appointment Type Appointment Facili ty Name Jul 12, 2022 09:20 AM AMBULATORY - SURGERY [facility] S Jul 19, 2022 07:00 AM AMBULATORY - NONE [facility] Jul 19, 2022 08:00 AM AMBULATORY - MEDICINE [facility] CS Jul 19, 2022 09:00 AM AMBULATORY - MEDICINE [facility] CS Jul 25, 2022 09:00 AM AMBULATORY - NONE [facility] Jul 25, 2022 10:30 AM AMBULATORY - NONE [facility] Jul 25, 2022 11:00 AM AMBULATORY - SURGERY [facility] S Jul 25, 2022 12:30 PM AMBULATORY - NONE [facility] Aug 05, 2022 11:00 AM AMBULATORY - NONE [facility] Nov 20, 2022 10:30 AM AMBULATORY - MEDICINE [facility] CS Nov 20, 2022 11:00 AM AMBULATORY - MEDICINE [facility] CS Nov 20, 2022 11:30 AM AMBULATORY - MEDICINE [facility] Active, Pending, and Scheduled Orders This section includes a listing of several types of active, pending, and scheduled orders, including clinic medications orders, diagnostic test orders, procedure orders and consult orders; where the start date of the order is 45 days before the date of the Encounter or 45 days after the date of the Encounter. The data comes from all [facility]. Test Date/Time Test Type Test Details Facility Name May 15, 2022 12:00 Laboratory - COVID-19 AND FLU/RSV DIAG [facility] AM Chemistry Order PANEL(CEPHEID) NASOPHARYNGEAL SWAB STAT ONCE Jun 24, 2022 06:55 Laboratory - EXTRA BLUE TUBE PLASMA WC [facility] PM Chemistry Order Jun 24, 2022 06:55 Laboratory - EXTRA GOLD GEL TUBE SERUM [facility] PM Chemistry Order Jun 24, 2022 06:55 Laboratory - EXTRA PURPLE TUBE BLOOD [facility] PM Chemistry Order Jun 24, 2022 06:55 Laboratory - EXTRA MINT TUBE PLASMA WC [facility] PM Chemistry Order Jun 28, 2022 04:57 Consult Order NEUROSURGERY OUTPT Cons [facility] PM Chief Inspector's Choice Jun 28, 2022 05:00 Consult Order UROLOGY OUTPT [place] [facility] PM Chief Inspector's Choice Jul 10, 2022 12:00 Laboratory - RHEUMATOLOGY CHEM PANEL [facility] AM Chemistry Order PLASMA SP ONCE Jul 10, 2022 12:00 Laboratory - RHEUMATOLOGY HEME PANEL [facility] AM Chemistry Order BLOOD SP ONCE Jul 25, 2022 10:30 Imaging - General CERVICAL SPINE 4 OR 5 [facility] AM Radiology Order VIEWS Lab Results: +/- [facility] [address] [facility] [address] Performing Lab: [facility] [address] [facility] [address] URINE COLOR YELLOW SPECIFIC GRAVITY 1.039 H [...] [facility] [address] [place] [facility] [address] Performing Lab: [facility] [address] [facility] [address] AST/SGOT 19 <34 Jun 24, 2022 08:24 PM [facility] POTASSIUM Specim en Type: PLASMA No comment enter ed. Ordering Provid er: JAYDE MENDOZA Report Released Date/Time: Jun 24, 2022 08:09 PM Reporting Lab: [facility] [address] [facility] [address] Performing Lab: [facility] [address] [facility] [address] POTASSIUM 4.9 3.5-5.1 Jun 24, 2022 08:24 PM [facility] PROTEIN,TOTAL Specim en Type: PLASMA No comment enter ed. Ordering Provid er: JAYDE MENDOZA Report Released Date/Time: Jun 24, 2022 08:09 PM Reporting Lab: [facility] [address] [facility] [address] Performing Lab: [facility] [address] [facility] [address] PROTEIN,TOTAL 6.8 6.0-8.3 Jun 24, 2022 07:40 [facility] PROTHROMBIN TIME/INR Spec imen Type: PLASMA PM No comment enter ed. Ordering Provid er: JAYDE MENDOZA Report Released Date/Time: Jun 24, 2022 06:55 PM Reporting Lab: [facility] [address] [facility] [address] Performing Lab: [facility] [address] .INR 1.1 0.8-1.1 .PT 12.1 9.4-12.5 Jun 24, 2022 07:32 [facility] COVID-19 DIAGNOSTIC Speci men Type: NASOPHARYNGEAL PM PANEL (CEPHEID) Comment: Cephei d GeneXpert (618) Ordering Provid er: JAYDE MENDOZA Report Released Date/Time: Jun 24, 2022 06:55 PM Reporting Lab: [facility] [address] [facility] [address] Performing Lab: [facility] [address] [facility] [address] COVID-19 (CEPHEID) Not Detected Not Dete cted [...] [facility] [address] [facility] [address] Performing Lab: [facility] [address] [facility] [address] CREATININE 1.3 H 0.7-1.2 UREA NITROGEN 19 [...] PM Reporting Lab: [facility] [address] Performing Lab: [facility] [address] WBC 9.67 4.0-11.0 RBC 3.36 L 4.6-6.2 [...] 8 [place] 2021 08:32 /min mm[Hg] OLIS [facility] Jun 26 [facility] 2021 03:48 OLIS DE AM [facility] Jun 26 [facility] 2021 03:48 [facility] Social History: Smoking Status (Most [...] 2022 01:30 PM VA-TOBACCO FORMER USER [facility] Tobacco Use History This section includes a history of the smoking, or tobacco- related health factors, that were collected on or before the date of the Encounter. The data comes from the [place] facility where the Encounter took place. Date/Time Smoking Status/Tobacco Use Comment [facility] it Mar 05, 2022 01:30 PM VA-TOBACCO QUIT 1 TO < 5 YRS [facility] Jun 01, 2021 02:00 PM [facility] Dec 31, 2019 10:54 AM VA-TOBACCO FORMER USER [facility] Dec 31, 2019 10:54 AM DE-TOBACCO QUIT < [address] [facility] March 23, 2019 09:53 AM VA-TOBACCO FORMER USER [facility] March 23, 2019 09:53 AM [place]-TOBACCO QUIT < 1 YEAR [facility] Jun 10, 2018 10:00 AM CURRENT TOBACCO USER [place] [facility] May 10, 2018 07:27 PM INPT TOBACCO COUNSELING [place] [facility] May 10, 2018 07:27 PM INPT TOBACCO USER [place] [facility] Aug 29, 2017 09:55 AM FORMER TOBACCO USE <1Y [facility] May 26, 2017 10:51 PM INPT TOBAC[place] COUNSELING [place] [facility] May 26, 2017 10:51 PM INPT TOBACCO USER [place] [facility] May 03, 2017 09:34 PM INPT TOBAC[place] COUNSELING [place] [facility] May 03, 2017 09:34 PM INPT TOBACCO USER [place] [facility] Sep 18, 2016 01:36 PM FORMER TOBACCO USE <1Y [facility] Aug 10, 2016 03:54 PM INPT TOBACCO USE - PT REFUSED [facility] Aug 01, 2016 06:48 PM INPT TOBACCO COUNSELING ANAID GARCIA [facility] Aug 01, 2016 06:48 PM INPT TOBACCO USER GONZALES LORENZ [facility] Feb 08, 2015 09:57 AM CURRENT [facility]AC[facility] Nov 29, 2013 10:37 AM CURRENT TOBACCO USER [place] JUAREZS [facility] Nov 26, 2013 11:09 AM PATIENT IS TOBACCO USER ANAID GARCIA [facility] Nov 27, 2012 12:12 PM CURRENT TOBACCO USER LAWSON HUMPHRIESS [facility] Dec 27, 2011 09:44 AM CURRENT TOBACCO USER [place] JUAREZS [facility] Jan 22, 2011 02:38 PM CURRENT TOBACCO USER LAW[place] HUMPHRIESS [facility] Mar 13, 2010 12:48 PM CURRENT TOBACCO USER [facility] Advance Directives: All historical and current Section [...] Aug 10, 2016 CLINICAL WARNING ISABEL BARCENAS [facility] Aug 02, 2016 CLINICAL WARNING AURORA ALMAZAN [facility] Encounter Notes: All associated encounter notes This section contains the clinical notes associated to the Encounter. Date/Time Encounter Note(s) Provider Source Jun 26, 2022 12:00 AM SCANNED REPORT: NICOLE SNEEDIda Merlos [facility] LOCAL TITLE: TELEMETRY RHYTHM STRIPS STANDARD TITLE: SCANNED REPORT DATE OF NOTE: JUN 26, 2022 ENTRY DATE: JUN 27 022@18:16:50 AUTHOR: NICOLE SNEED EXP COSIGNER: URGENCY: STATUS: COMPLETED VistA Imaging - Scanned Document /mikal/ NICOLE SNEED [facility]IST[facility] JAVA MANAGER Signed: 06/27/2022 18:16
--- OUTSIDE RECORDS SUMMARY | 2022-07-04 09:23 | XMS_ITS | Encounter Summary ---
:1950 [address] [facility] Address [address] [place] [address] Support Name Relationship Address Phone MADELIN MANTILLA Unavailable [address] [phone] [place] [address] MADELIN MANTILLA Unavailable [address] [phone] [place] [address] DHAVAL MANTILLA Unavailable [address] [place] [address] Insurance Providers: All historical and current Section [...] MEDICARE MEDICARE PART Jul 18, PART B [id number] ANNALEE BRYANIENT (WNR) (M) B 2014A [phone] ,REGI MEDICARE MEDICARE PART Apr 17, PART A [id number] ANNALEE BRYANIENT (WNR) (M) A 2012A [phone] ,REGI Selected Encounter This section includes the information on record at [place] for the Encounter. Date/Time Encounter Type Encounter Description Reason Provider Source Jun 28, 2022 11:26 Outpatient Encounter TELEPHONE TRIAGE AM IHE Encounter [...] data comes from all [place] treatment facilities. Appointment Date/Time Appointment Type Appointment Facili ty Name Jul 12, 2022 09:20 AM AMBULATORY - SURGERY [facility] S Jul 19, 2022 07:00 AM AMBULATORY - NONE [facility] Jul 19, 2022 08:00 AM AMBULATORY - MEDICINE [facility] CS Jul 19, 2022 09:00 AM AMBULATORY - MEDICINE [facility] CS Jul 25, 2022 09:00 AM AMBULATORY - NONE [facility] Jul 25, 2022 10:30 AM AMBULATORY - NONE [facility] Jul 25, 2022 11:00 AM AMBULATORY - SURGERY [facility] S Jul 25, 2022 12:30 PM AMBULATORY - NONE [facility] Aug 05, 2022 11:00 AM AMBULATORY - NONE [facility] Nov 20, 2022 10:30 AM AMBULATORY - MEDICINE [facility] CS Nov 20, 2022 11:00 AM AMBULATORY - MEDICINE [facility] CS Nov 20, 2022 11:30 AM AMBULATORY - MEDICINE [facility] CS Active, Pending, and Scheduled Orders This section includes a listing of several types of active, pending, and scheduled orders, including clinic medications orders, diagnostic test orders, procedure orders and consult orders; where the start date of the order is 45 days before the date of the Encounter or 45 days after the date of the Encounter. The data comes from all [place] treatment [facility]. Test Date/Time Test Type Test Details Facility Name May 15, 2022 12:00 Laboratory - COVID-19 AND FLU/RSV DIAG [facility] AM Chemistry Order PANEL(CEPHEID) NASOPHARYNGEAL SWAB STAT WC ONCE Jun 24, 2022 06:55 Laboratory - EXTRA BLUE TUBE PLASMA WC [facility] PM Chemistry Order Jun 24, 2022 06:55 Laboratory - EXTRA PURPLE TUBE BLOOD [facility] PM Chemistry Order WC Jun 24, 2022 06:55 Laboratory - EXTRA GOLD GEL TUBE SERUM [facility] PM Chemistry Order Jun 24, 2022 06:55 Laboratory - EXTRA MINT TUBE PLASMA WC [facility] PM Chemistry Order Jun 28, 2022 04:57 Consult Order NEUROSURGERY OUTPT [facility] PM Asset Administrator's Choice Jun 28, 2022 05:00 Consult Order UROLOGY OUTPT Cons [place] [facility] PM Asset Administrator's Choice Jul 10, 2022 12:00 Laboratory - RHEUMATOLOGY CHEM PANEL [facility] AM Chemistry Order PLASMA SP ONCE Jul 10, 2022 12:00 Laboratory - RHEUMATOLOGY HEME PANEL [facility] AM Chemistry Order BLOOD SP ONCE Jul 25, 2022 10:30 Imaging - General CERVICAL SPINE 4 OR 5 [facility] AM Radiology Order VIEWS Lab Results: [...] Range Comment Jun 24, 2022 09:29 PM [facility] URINALYSIS Specim en Type: URINE No comment enter ed. Ordering Provid er: JAYDE MENDOZA Report Released Date/Time: Jun 24, 2022 06:55 PM Reporting Lab: [facility] [address] [facility] [address] Performing Lab: [facility] [address] [facility] [address] URINE COLOR YELLOW SPECIFIC GRAVITY 1.039 H [...] 25 NEGATIVE Jun 24, 2022 08:24 PM [facility] AST/SGOT Specim en Type: PLASMA No comment enter ed. Ordering Provid er: JAYDE MENDOZA Report Released Date/Time: Jun 24, 2022 08:09 PM Reporting Lab: [facility] [address] [facility] [address] Performing Lab: [facility] [address] [facility] [address] AST/SGOT 19 <34 Jun 24, 2022 08:24 PM [facility] POTASSIUM Specim en Type: PLASMA No comment enter ed. Ordering Provid er: JAYDE MENDOZA Report Released Date/Time: Jun 24, 2022 08:09 PM Reporting Lab: [facility] [address] [facility] [address] Performing Lab: [facility] [address] [facility] [address] POTASSIUM 4.9 3.5-5.1 Jun 24, 2022 08:24 PM [facility] PROTEIN,TOTAL Specim en Type: PLASMA No comment enter ed. Ordering Provid er: JAYDE MENDOZA Report Released Date/Time: Jun 24, 2022 08:09 PM Reporting Lab: [facility] [address] [facility] [address] Performing Lab: [facility] [address] [facility] [address] PROTEIN,TOTAL 6.8 6.0-8.3 Jun 24, 2022 07:40 [facility] PROTHROMBIN TIME/INR Spec imen Type: PLASMA PM No comment enter ed. Ordering Provid er: JAYDE MENDOZA Report Released Date/Time: Jun 24, 2022 06:55 PM Reporting Lab: [facility] [address] Performing Lab: [facility] [address] .INR 1.1 0.8-1.1 .PT 12.1 9.4-12.5 Jun 24, 2022 07:32 [facility] COVID-19 DIAGNOSTIC Speci men Type: NASOPHARYNGEAL PM PANEL (CEPHEID) Comment: Cephei d GeneXpert (618) Ordering Provid er: JAYDE MENDOZA Report Released Date/Time: Jun 24, 2022 06:55 PM Reporting Lab: [facility] [address] [facility] [address] Performing [facility] [address] COVID-19 (CEPHEID) Not Detected Not Dete cted Jun 24, 2022 [facility] COMPREHENSIVE METABOLIC Spec imen Type: PLASMA 07:29 PM PANEL+MG Comment: Cancel lation reported to: Rajni Giraldo RN on 06/24/22@2004 by Test result cancelled due to hemolysis interference in sample. Ordering Provid er: JAYDE MENDOZA Report Released Date/Time: Jun 24, 2022 06:55 PM Reporting Lab: [facility] [address] [facility] [address] Performing Lab: [facility] [address] CREATININE 1.3 H 0.7-1.2 UREA NITROGEN 19 [...] L >60 Jun 24, 2022 07:29 PM [facility] CBC & DIFF Specim en Type: BLOOD Comment: [place] d Platelets. Invitro artefact. No clinical significance. Platelet count may be higher than stated value. Plt count = 214 K-cmm Manual Differential Performed Ordering Provid er: JAYDE MENDOZA Report Released Date/Time: Jun 24, 2022 06:55 PM Reporting Lab: [facility] [address] [facility] [address] Performing Lab: [facility] [address] WBC 9.67 4.0-11.0 RBC 3.36 L 4.6-6.2 [...] smoking and tobacco-related health factors from the [facility] where the Encounter took place.Current Smoking Status This section includes the most current smoking, or tobacco-related health factor, from the [facility] where the Encounter took place. [...] VA-TOBACCO QUIT 1 TO < 5 YRS [facility] Jun 01, 2021 02:00 PM [facility] Dec 31, 2019 10:54 AM VA-TOBACCO FORMER USER [facility] Dec 31, 2019 10:54 AM VA-TOBACCO QUIT < 1 YEAR M [facility] March 23, 2019 09:53 AM VA-TOBACCO FORMER USER [facility] March 23, 2019 09:53 AM VA-TOBACCO QUIT < 1 YEAR M [facility] Jun 10, 2018 10:00 AM CURRENT TOBACCO USER [facility] May 10, 2018 07:27 PM [place] [facility] May 10, 2018 07:27 PM INPT TOBACCO USER [place] [facility] Aug 29, 2017 09:55 AM FORMER TOBACCO USE <1Y [facility] May 26, 2017 10:51 PM INPT [place]SEL[place] [facility] May 26, 2017 10:51 PM INPT TOBACCO USER [place] [facility] May 03, 2017 09:34 PM INPT TOBACCO COUNSELING [place] [facility] May 03, 2017 09:34 PM INPT TOBACCO USER [place] [facility] Sep 18, 2016 01:36 PM FORMER TOBACCO USE <1Y [facility] Aug 10, 2016 03:54 PM INPT TOBACCO USE - PT REFUSED [facility] Aug 01, 2016 06:48 PM [facility] [place] [facility] Aug 01, 2016 06:48 PM INPT TOBACCO USER [place] [facility] Feb 08, 2015 09:57 AM CURRENT [facility]ACCO [facility] Nov 29, 2013 10:37 AM CURRENT TOBACCO USER [facility] Nov 26, 2013 11:09 AM PATIENT IS TOBACCO USER [place] [facility] Nov 27, 2012 12:12 PM CURRENT TOBACCO USER [facility] Dec 27, 2011 09:44 AM CURRENT TOBACCO USER [facility] Jan 22, 2011 02:38 PM CURRENT TOBACCO USER [facility] Mar 13, 2010 12:48 PM CURRENT TOBACCO USER [facility] Advance Directives: All historical and current [...] from all [facility]. Date Advance Directives Provider Source Feb 25, 2018 ADVANCE DIRECTIVE AURORA MORALES [facility] Feb 24, 2018 ADVANCE DIRECTIVE DISCUSSION AURORA MORALES [facility] May 26, 2017 CLINICAL WARNING MAGO CONTRERAS [facility] May 03, 2017 CLINICAL WARNING SARIAH ENGLE [facility] Aug 10, 2016 CLINICAL WARNING ISABEL BARCENAS [facility] Aug 02, 2016 CLINICAL WARNING AURORA ALMAZAN [facility] Encounter Notes: All associated encounter notes This section contains the clinical notes associated to the Encounter. Date/Time Encounter Note(s) Provider Source Jun 28, 2022 11:26 AM REPORT OF CONTACT: BENJY LI [facility] LOCAL TITLE: PATIENT CONTACT NOTE STANDARD TITLE: REPORT OF CONTACT DATE OF NOTE: JUN 28, 2022@11:26 ENTRY DATE: JUN 28, 2022@11:26:51 AUTHOR: BENJY LI EXP COSIGNER: URGENCY: STATUS: COMPLETED PATIENT CONTACT NOTE Has ADDENDA Patient contact Name of Rhodell: REGI MANTILLA Name/Relationship of Contact if other than Veter an: Sherie [facility] Date & Time of Contact: Jun@11:27 Type of Contact: Reason for Contact: Sherie is requesting verbal orders for :1 jacqueline es a week for detention : 2 times for 3 weeks : 1 time for3 weeks : 3 pr n visits for detention. One time a week for 6 weeks a [place] health aide ; and a ok for social services to eval and treat and also a order for Cath removal. and also discussion about medication. /mikal/ BENJY LI [employer] Assistance Signed: 06/28/2022 11:36 Receipt Acknowledged By: 06/28/2022 14:09 /mikal/ REX THORNE RN REGISTERED NURSE for HERI BRAUN 06/28/2022 ADDENDUM STATUS: COMPLETED Called nurse, Jaiden, with [facility] [employer] Medicare is the payer. VO given for skilled and non-skilled nurs ing visits. Requested an update med list be faxed to [phone]. Once medication list is updated wr iter will fax list. /mikal/ REX THORNE RN REGISTERED NURSE Signed: 06/28/2022 16:22
--- OUTSIDE RECORDS SUMMARY | 2022-07-04 09:23 | XMS_ITS | Encounter Summary ---
:1950 Author Organization [facility] Address [address] [place] [address] Support Name Relationship Address Phone MADELIN MANTILLA Unavailable [address] [phone] [place] [address] MADELIN MANTILLA Unavailable [address] [phone] [place] [address] DHAVAL MANTILLA Unavailable [address] [place] [address] Insurance Providers: All historical and current Section [...] MEDICARE MEDICARE PART Jul 18, PART B [id number] ANNALEE BUSTILLO (WNR) (M) B [id number] [phone] ,REGI MEDICARE MEDICARE PART Apr 17, PART A [id number] ANNALEE BUSTILLO (WNR) (M) A [id number] [phone] ,REGI Selected Encounter This section includes the information on record at [place] for the Encounter. Date/Time Encounter Type Encounter Reason Provider Source Description Jun 28, 2022 HC PRO PHONE TELEPHONE/MEDICI ICD-10-CM Z79.01 Brianda HOU ATT 09:10 AM CALL 11-20 MIN NE director long term care (current) EW S use of anticoagulants with Provider Comments: assisted (current) use of anticoagulants IHE Encounter Template Text not used by [place] Assessments - Encounter Diagnoses This section includes the primary and secondary diagnoses documented for the Encounter. Date/Time Primary/Secondary Diagnosis Name Provider Source Diagnosis Jun 28, 2022 PRIMARY director long term care (current) ELLIOT HOU PR 09:10 AM use of EW S HCS anticoagulants Jun 28, 2022 SECONDARY Unspecified atrial ELLIOT HOU PR 09:[address] [facility] Plan of Treatment: Future Appointments (+ 6 months) and Future Tests (+/- 45 days) The Plan of Treatment section includes future care activities for the patient from all [place] treatmentfacilities. This section includes future appointments and future orders which are active, pending orscheduled.Future Appointments This section includes appointments that were scheduled to occur 6 months from the date of the Encounter, up to a maximum of 20 appointments. The data comes from all [place] treatment [facility]. Appointment Date/Time Appointment Type Appointment Facili ty Name Jul 12, 2022 09:20 AM AMBULATORY - SURGERY [facility] Jul 19, 2022 07:00 AM AMBULATORY - NONE [facility] Jul 19, 2022 08:00 AM AMBULATORY - MEDICINE [facility] Jul 19, 2022 09:00 AM AMBULATORY - MEDICINE [facility] Jul 25, 2022 09:00 AM AMBULATORY - NONE [facility] Jul 25, 2022 10:30 AM AMBULATORY - NONE [facility] Jul 25, 2022 11:00 AM AMBULATORY - SURGERY [facility] Jul 25, 2022 12:30 PM AMBULATORY - NONE [facility] Aug 05, 2022 11:00 AM AMBULATORY - NONE [facility] Nov 20, 2022 10:30 AM AMBULATORY - MEDICINE [facility] Nov 20, 2022 11:00 AM AMBULATORY - MEDICINE [facility] Nov 20, 2022 11:30 AM AMBULATORY - MEDICINE [facility] Active, Pending, and Scheduled Orders This section includes a listing of several types of active, pending, and scheduled orders, including clinic medications orders, diagnostic test orders, procedure orders and consult orders; where the start date of the order is 45 days before the date of the Encounter or 45 days after the date of the Encounter. The data comes from all [place] treatment [facility]. Test Date/Time Test Type Test Details Facility Name May 15, 2022 12:00 Laboratory - COVID-19 AND FLU/RSV DIAG [facility] AM Chemistry Order PANEL(CEPHEID) NASOPHARYNGEAL SWAB STAT WC ONCE Jun 24, 2022 06:55 Laboratory - EXTRA BLUE TUBE PLASMA WC [facility] PM Chemistry Order Jun 24, 2022 06:55 Laboratory - EXTRA GOLD GEL TUBE SERUM [facility] PM Chemistry Order WC Jun 24, 2022 06:55 Laboratory - EXTRA PURPLE TUBE BLOOD [facility] PM Chemistry Order WC Jun 24, 2022 06:55 Laboratory - EXTRA MINT TUBE PLASMA [facility] PM Chemistry Order Jun 28, 2022 04:57 Consult Order NEUROSURGERY OUTPT Cons [facility] ADAME [facility] PM [facility] Jun 28, 2022 05:00 Consult Order UROLOGY OUTPT Cons ZEINAB Merlos [facility] PM [facility] [facility] Jul 10, 2022 12:00 Laboratory - RHEUMATOLOGY CHEM PANEL [facility] AM Chemistry Order PLASMA SP ONCE Jul 10, 2022 12:00 Laboratory - RHEUMATOLOGY HEME PANEL [facility] AM Chemistry Order BLOOD SP ONCE Jul 25, 2022 10:30 Imaging - General CERVICAL SPINE 4 OR 5 [facility] AM Radiology Order VIEWS Lab Results: [...] Comment Jun 24, 2022 09:[address] [facility] URINALYSIS Specim en Type: URINE No comment enter ed. Ordering Provid er: JAYDE MENDOZA Report Released Date/Time: Jun 24, 2022 06:55 PM Reporting Lab: [facility] DRI [facility] [id number] Performing [facility]: [facility] [address] URINE COLOR YELLOW SPECIFIC GRAVITY 1.039 H [...] NEGATIVE Jun 24, 2022 08:[address] [facility] AST/SGOT Specim en Type: PLASMA No comment enter ed. Ordering Provid er: JAYDE MENDOZA Report Released Date/Time: Jun 24, 2022 08:09 PM Reporting Lab: [facility] D[facility] [address] Performing Lab: [facility] [address] [facility] [address] AST/SGOT 19 <34 Jun 24, 2022 08:[address] [facility] POTASSIUM Specim en Type: PLASMA No comment enter ed. Ordering Provid er: JAYDE MENDOZA Report Released Date/Time: Jun 24, 2022 08:09 PM Reporting Lab: [facility] [place] [address] [facility] [address] Performing Lab: [facility] [place] [address] [facility] [address] POTASSIUM 4.9 3.5-5.1 Jun 24, 2022 08:[address] [facility] PROTEIN,TOTAL Specim en Type: PLASMA No comment enter ed. Ordering Provid er: JAYDE MENDOZA Report Released Date/Time: Jun 24, 2022 08:09 PM Reporting Lab: [facility] [facility] [address] Performing Lab: [facility] [facility] [facility] [address] PROTEIN,TOTAL 6.8 6.0-8.3 Jun 24, 2022 07:40 [facility] PROTHROMBIN TIME/INR Spec imen Type: PLASMA PM No comment enter ed. Ordering Provid er: JAYDE MENDOZA Report Released Date/Time: Jun 24, 2022 06:55 PM Reporting Lab: [facility] [facility] [address] Performing Lab: [facility] [facility] [address] .INR 1.1 0.8-1.1 .PT 12.1 9.4-12.5 Jun 24, 2022 07:32 [facility] COVID-19 DIAGNOSTIC Speci men Type: NASOPHARYNGEAL PM PANEL (CEPHEID) Comment: Cephei d GeneXpert (618) Ordering Provid er: JAYDE MENDOZA Report Released Date/Time: Jun 24, 2022 06:55 PM Reporting Lab: [facility] [address] [address] [facility] [address] Performing Lab: [facility] [facility] [facility] [address] COVID-19 (CEPHEID) Not Detected Not Dete cted Jun 24, 2022 [facility] COMPREHENSIVE METABOLIC Spec imen Type: PLASMA 07:29 PM PANEL+MG Comment: Cancel lation reported to: Rajni Giraldo RN on 06/24/22@2004 by [place]. Test result cancelled due to hemolysis interference in sample. Ordering Provid er: JAYDE MENDOZA Report Released Date/Time: Jun 24, 2022 06:55 PM Reporting Lab: [facility] [address] Performing Lab: [facility] [address] CREATININE 1.3 H 0.7-1.2 UREA NITROGEN 19 [...] >60 Jun 24, 2022 07:[address] [facility] CBC & DIFF Specim en Type: BLOOD Comment: [place] d Platelets. Invitro artefact. No clinical significance. Platelet count may be higher than stated value. Plt count = 214 K-cmm Manual Differential Performed Ordering Provid er: JAYDE MENDOZA Report Released Date/Time: Jun 24, 2022 06:55 PM Reporting Lab: [facility] [address] Performing Lab: [facility] [address] WBC 9.67 4.0-11.0 RBC 3.36 L 4.6-6.2 [...] smoking and tobacco-related health factors from the [facility] where the Encounter took place.Current Smoking Status This section includes the most current smoking, or tobacco-related health factor, from the [place] facility where the Encounter took place. Date/Time Current Smoking Status Comment Facility Mar 05, 2022 01:30 PM VA-TOBACCO FORMER USER [facility] Tobacco Use History This section includes a history of the smoking, or tobacco- related health factors, that were collected on or before the date of the Encounter. The data comes from the [facility] where the Encounter took place. Date/Time Smoking Status/Tobacco Use Comment [facility] Mar 05, 2022 01:30 PM VA-TOBACCO QUIT 1 TO < [address] [facility] Jun 01, 2021 02:00 PM [facility]ACCO [facility] Dec 31, 2019 10:54 AM VA-TOBACCO FORMER USER [facility] Dec 31, 2019 10:54 AM PR-TOBACCO QUIT < 1 YEAR M [facility] March 23, 2019 09:53 AM VA-TOBACCO FORMER USER [facility] March 23, 2019 09:53 AM VA-TOBACCO QUIT < 1 YEAR [facility] Jun 10, 2018 10:00 AM CURRENT TOBACCO USER [place] [facility] May 10, 2018 07:27 PM INPT TOBACCO COUNSELING [place] [facility] May 10, 2018 07:27 PM IN[place]ACCO USER [place] [facility] Aug 29, 2017 09:55 AM FORMER TOBACCO USE <1Y [facility] May 26, 2017 10:51 PM INPT TOBACCO COUNSELING [place] [facility] May 26, 2017 10:51 PM INPT TOBACCO USER [place] [facility] May 03, 2017 09:34 PM INPT TOBACCO COUNSELING [place] [facility] May 03, 2017 09:34 PM INPT TOBACCO USER [place] [facility] Sep 18, 2016 01:36 PM FORMER TOBACCO USE <1Y [facility] Aug 10, 2016 03:54 PM INPT TOBACCO USE - PT REFUSED [facility] Aug 01, 2016 06:48 PM INPT TOBACCO COUNSELING ANAID GARCIA [facility] Aug 01, 2016 06:48 PM INPT TOBACCO USER GONZALES LORENZ [facility] Feb 08, 2015 09:57 AM CURRENT [facility]BACCO [facility]ER [facility] Nov 29, 2013 10:37 AM CURRENT TOBACCO USER [facility] Nov 26, 2013 11:09 AM PATIENT IS TOBACCO USER ANAID GARCIA [facility] Nov 27, 2012 12:12 PM CURRENT TOBACCO USER [facility] Dec 27, 2011 09:44 AM CURRENT TOBACCO USER [facility] Jan 22, 2011 02:38 PM CURRENT TOBACCO USER [facility] Mar 13, 2010 12:48 PM CURRENT TOBACCO USER [facility] Advance Directives: All historical and current Section Date Range: From patient's date of to the date document was created. This section includes ALL of a patient's completed or amended [place] Advance and Rescinded Directives. The entries below indicate that a directive exists for the patient, but an actual copy is not included with this document. The data comes from all [place] facilities. Date Advance Directives Provider Source Feb 25, 2018 ADVANCE DIRECTIVE AURORA MORALES [facility] Feb 24, 2018 ADVANCE DIRECTIVE DISCUSSION AURORA MORALES [facility] May 26, 2017 CLINICAL [address] MAGO CONTRERAS [facility] May 03, 2017 CLINICAL WARN[address] SARIAH ENGLE [facility] Aug 10, 2016 CLINICAL WARN[address] ISABEL BARCENAS [facility] Aug 02, 2016 CLINICAL WARNING AURORA ALMAZAN [facility] Encounter Notes: All associated encounter notes This section contains the clinical notes associated to the Encounter. Date/Time Encounter Note(s) Provider Source Jun 28, 2022 09:11 AM PHARMACY OUTPATIENT MEDICATION MGT NOT E: ASHA HOU [facility] LOCAL TITLE: PHARMACY ANTICOAGULATION CLINIC F/ U STANDARD TITLE: PHARMACY OUTPATIENT MEDICATION M GT NOTE DATE OF NOTE: JUN 28, 2022@09:11 ENTRY DATE: JUN 28, 2022@09:11:09 AUTHOR: ASHA HOU EXP COSIGNER: URGENCY: STATUS: COMPLETED DOAC DISCHARGE / DASHBOARD ALERT - Anticoagulant: apixaban 5mg q12h - Indication(s): Afib - Relevant PMH: - NSTEMI 2018 - Prior major bleeds: no major bleeds per pt - h/o internal hemorrhoids - 02/2022 non-erosive gastritis, on PPI - h/o anemia w/Etoh abuse - Prior anticoagulants: none - Start date: 03/2022 - Anticipated duration: indefinite - [id number] = 3 (age, htn, CAD) - CHADS = 1 (htn) low risk - HASBLED = 3 (age, etoh, anemia) high risk SUBJECTIVE/OBJECTIVE: Obtained from chart review. Admission diagnosis: Assistance with finding roe cement Relevant changes in health status: Patient was discharged from [facility] on 06/24/2022 and presented to [facility] for assistance with finding pl acement. Patient had an accidental fall from bed on 06/17. Team suspected falls are 2/[address] head negative for intracranial bleed. Pt progres sed through PT/OT and was discharged home with [facility]. Medication changes (see [facility] MED INSTRUCTION/RECONCILIATION note): NONE dashboard flags: > 2 gram hgb drop Labs ==== Age: 72 Height: 62.0 in [157.5 cm] (06/24/2022 22:38) Weight: 116.0 lb [52.62 kg] (06/24/2022 22:38) Collection DT Specimen Test Name Result Units Re f Range 06/24/2022 19:29 PLASMA!! CREATININE 1.3 H mg/dL 0.7 - 1.2 05/15/2022 10:57 PLASMA CREATININE 1.2 mg/dL 0.7 - 1.2 03/05/2022 11:47 PLASMA CREATININE 1.0 mg/dL 0.7 - 1.2 01/11/2022 09:15 PLASMA CREATININE 1.0 mg/dL 0.7 - 1.2 09/28/2021 09:18 PLASMA CREATININE 1.1 mg/dL 0.7 - 1.2 06/19/2021 07:58 PLASMA CREATININE 0.9 mg/dL 0.7 - 1.2 03/20/2021 08:30 PLASMA CREATININE 1.1 mg/dL 0.7 - 1.2 01/12/2021 09:48 PLASMA CREATININE 1.1 mg/dL 0.7 - 1.2 10/27/2020 09:52 PLASMA CREATININE 1.0 mg/dL 0.7 - 1.2 08/16/2020 09:08 PLASMA CREATININE 1.2 mg/dL 0.7 - 1.2 !! Indicates COMMENTS AVAILABLE...Refer to Inter im Lab Report. Cockcroft & Gault (Actual body weight) = 37 mL/m in Collection DT Spec WBC HGB HCT PLT MCV NEUT LYMP HS 06/24/2022 19:29 BLOOD 9.67 12.0 L 35.9 L commen t 106.8 H 70.7 16.7 01/11/2022 09:15 BLOOD 10.65 13.1 L 38.7 L 235 1 06.0 H 66.8 16.9 09/28/2021 09:18 BLOOD 11.98 H 14.0 41.7 243 104 .0 H 62.1 19.5 Collection DT Specimen Test Name Result Units Re f Range 06/24/2022 19:29 PLASMA!! BILIRUBIN, TOTAL 0.2 m g/dL 0.2 - 1.2 06/24/2022 19:29 PLASMA!! ALKALINE PHOSPHAT 56 U /L 40 - 150 06/24/2022 20:24 PLASMA AST/SGOT 19 U/L Ref: <=3 4 06/24/2022 19:29 PLASMA!! ALT/SGPT 20 U/L Ref: <=55 !! Indicates COMMENTS AVAILABLE...Refer to Inter im Lab Report. ASSESSMENT/PLAN: - Changes in health/labs/medications do not affe ct anticoagulation. Labs are stable - Unclear why DDB flagged a 2 gram hgb drop as prior hgb was 13.1. Nonetheless, per review of V records, recent hgb of 12.0 is near pt's usual baseline. No issues with bleeding noted during recent admissi ons. Will continue to monitor via DOAC Dashboard. - Continue anticoagulation at current dose. - Monitor dashboard for labs, drug interactions, and compliance. - Dashboard flags reviewed/cleared, if applicabl e. - Lab monitoring frequency defined by dashboard or as clinically indicated. Time Spent: 15min /mikal/ ASHA HOU CLINICAL PHARMACIST Signed: 06/28/2022 09:17
--- OUTSIDE RECORDS SUMMARY | 2022-07-04 09:24 | XMS_ITS | Encounter Summary ---
:1950 [facility] Address [address] [place] [address] Support Name Relationship Address Phone MADELIN MANTILLA Unavailable [phone] [place] [address] AMDELIN MANTILLA Unavailable [phone] [place] [address] DHAVAL MANTILLA Unavailable [address] [place] [address] Insurance Providers: All historical and current Section [...] MEDICARE MEDICARE PART Jul 18, PART B [id number] ANNALEE BUSTILLO (WNR) (M) B 2014A [phone] ,REGI MEDICARE MEDICARE PART Apr 17, PART A [id number] ANNALEE BUSTILLO (WNR) (M) A 2012A [phone] ,[place] Selected Encounter This section includes the information on record at [place] for the Encounter. Date/Time Encounter Type Encounter Reason Provider Source Description Jun 28, 2022 OFFICE O/P EST PRIMARY ICD-10-CM Z71.89 REX THORNE 03:25 PM MINIMAL PROB CARE/MEDICINE Other specified counseling with Provider Comments: Specified counseling, not listed elsewhere IHE Encounter Template Text not used by [place] Assessments - Encounter Diagnoses This section includes the primary and secondary diagnoses documented for the Encounter. Date/Time Primary/Secondary Diagnosis Name Provider Source Diagnosis Jun 28, 2022 PRIMARY Other specified REX THORNE [facility] 04:13 PM counseling [facility] Plan of Treatment: Future Appointments (+ 6 months) and Future Tests (+/- 45 days) The Plan of Treatment section includes future care activities for the patient from all [place] [facility]. This section includes future appointments and future orders which are active, pending orscheduled.Future Appointments This section includes appointments that were scheduled to occur 6 months from the date of the Encounter, up to a maximum of 20 appointments. The data comes from all [place] treatment [facility]. Appointment Date/Time Appointment Type Appointment Facili ty Name Jul 12, 2022 09:20 AM AMBULATORY - SURGERY [facility] S Jul 19, 2022 07:00 AM AMBULATORY - NONE [facility] Jul 19, 2022 08:00 AM AMBULATORY - MEDICINE [facility] CS Jul 19, 2022 09:00 AM AMBULATORY - MEDICINE [facility] Jul 25, 2022 09:00 AM AMBULATORY - NONE [facility] Jul 25, 2022 10:30 AM AMBULATORY - NONE [facility] Jul 25, 2022 11:00 AM AMBULATORY - SURGERY [facility] S Jul 25, 2022 12:30 PM AMBULATORY - NONE [facility] Aug 05, 2022 11:00 AM AMBULATORY - NONE [facility] Nov 20, 2022 10:30 AM AMBULATORY - MEDICINE [facility] Nov 20, 2022 11:00 AM AMBULATORY - MEDICINE [facility] Nov 20, 2022 11:30 AM AMBULATORY - MEDICINE [facility] Active, Pending, and Scheduled Orders This [...] The data comes from all [place] treatment [facility]. Test Date/Time Test Type Test [...] [facility] PM Chemistry Order WC Jun 24, 2022 06:55 Laboratory - EXTRA MINT TUBE PLASMA WC [facility] PM Chemistry Order Jun 28, 2022 04:57 Consult Order NEUROSURGERY OUTPT Cons LAWSON ADAME [facility] PM Product Marketing Analyst's Choice Jun 28, 2022 05:00 Consult Order UROLOGY OUTPT Cons ZEINAB Melros [facility] PM Product Marketing Analyst's Choice Jul 10, 2022 12:00 Laboratory - RHEUMATOLOGY CHEM PANEL [facility] AM Chemistry Order PLASMA SP ONCE Jul 10, 2022 12:00 Laboratory - RHEUMATOLOGY HEME PANEL [facility] AM Chemistry Order BLOOD SP ONCE Jul 25, 2022 10:30 Imaging - General CERVICAL SPINE 4 OR 5 [facility] AM Radiology Order VIEWS Lab [...] Range Comment Jun 24, 2022 09:29 PM [facility] URINALYSIS Specim en Type: URINE No comment enter ed. Ordering Provid er: JAYDE MENDOZA Report Released Date/Time: Jun 24, 2022 06:55 PM Reporting Lab: [facility] [address] Performing Lab: [facility] [address] URINE COLOR YELLOW SPECIFIC GRAVITY 1.039 H [...] 25 NEGATIVE Jun 24, 2022 08:24 PM [facility] AST/SGOT Specim en Type: PLASMA No comment enter ed. Ordering Provid er: JAYDE MENDOZA Report Released Date/Time: Jun 24, 2022 08:09 PM Reporting Lab: [facility] [address] [facility] [address] Performing Lab: [facility] [address] [facility] [address] AST/SGOT 19 <34 Jun 24, 2022 08:24 PM [facility] POTASSIUM Specim en Type: PLASMA No comment enter ed. Ordering Provid er: JAYDE MENDOZA W Report Released Date/Time: Jun 24, 2022 08:09 PM Reporting Lab: [facility] [address] [facility] [address] Performing Lab: [facility] [address] [facility] [address] POTASSIUM 4.9 3.5-5.1 Jun 24, 2022 08:24 PM [facility] PROTEIN,TOTAL Specim en Type: PLASMA No comment enter ed. Ordering Provid er: JAYDE MENDOZA Report Released Date/Time: Jun 24, 2022 08:09 PM Reporting Lab: [facility] [address] [facility] [address] Performing Lab: [facility] [address] [facility] [address] PROTEIN,TOTAL 6.8 6.0-8.3 Jun 24, 2022 07:40 [facility] PROTHROMBIN TIME/INR Spec imen Type: PLASMA PM No comment enter ed. Ordering Provid er: JAYDE MENDOZA Report Released Date/Time: Jun 24, 2022 06:55 PM Reporting Lab: [facility] [address] [facility] [address] Performing Lab: [facility] [address] [facility] [address] .INR 1.1 0.8-1.1 .PT 12.1 9.4-12.5 Jun 24, 2022 07:32 [facility] COVID-19 DIAGNOSTIC Speci men Type: NASOPHARYNGEAL PM PANEL (CEPHEID) Comment: Cephei michael GeneXpert (618) Ordering Provid er: JAYDE MENDOZA Report Released Date/Time: Jun 24, 2022 06:55 PM Reporting Lab: [facility] [address] [facility] [address] Performing Lab: [facility] [address] [facility] [address] COVID-19 (CEPHEID) Not Detected Not Dete cted Jun 24, 2022 [facility] COMPREHENSIVE METABOLIC Spec imen Type: PLASMA 07:29 PM PANEL+MG Comment: Cancel lation reported to: Rajni Giraldo RN on 06/24/22@2004 by [place]. Test result cancelled due to hemolysis interference in sample. Ordering Provid er: JAYDE MENDOZA Report Released Date/Time: Jun 24, 2022 06:55 PM Reporting Lab: [facility] [address] Performing Lab: [facility] [address] CREATININE 1.3 H 0.7-1.2 UREA NITROGEN 19 [...] L >60 Jun 24, 2022 07:29 PM [facility] CBC & DIFF Specim en Type: BLOOD Comment: [place] d Platelets. Invitro artefact. No clinical significance. Platelet count may be higher than stated value. Plt count = 214 K-cmm Manual Differential Performed Ordering Provid er: JAYDE MENDOZA Report Released Date/Time: Jun 24, 2022 06:55 PM Reporting Lab: [facility] [address] Performing Lab: [facility] [address] WBC 9.67 4.0-11.0 RBC 3.36 L 4.6-6.2 [...] smoking, or tobacco-related health factor, from the [facility] where the Encounter took place. Date/Time Current [...] took place. Date/Time Smoking Status/Tobacco Use Comment [facility] it Mar 05, 2022 01:30 PM VA-TOBACCO QUIT 1 TO < 5 YRS [facility] Jun 01, 2021 02:00 PM [facility] Dec 31, 2019 10:54 AM VA-TOBACCO FORMER USER [facility] Dec 31, 2019 10:54 AM VA-TOBACCO QUIT < [facility] March 23, 2019 09:53 AM VA-TOBACCO FORMER USER [facility] March 23, 2019 09:53 AM [place]-TOBACCO QUIT < 1 YEAR [place] [facility] Jun 10, 2018 10:00 AM CURRENT TOBACCO USER [place] [facility] May 10, 2018 07:27 PM [facility] May 10, 2018 07:27 PM [place]AC[place] [facility] Aug 29, 2017 09:55 AM FORMER TOBACCO USE <1Y [facility] May 26, 2017 10:51 PM INPT [place]BACCO COUN[place] [facility] May 26, 2017 10:51 PM INPT [place]ACCO US[place] [facility] May 03, 2017 09:34 PM INPT TO[place]AC[place] COUNSELING [place] [facility] May 03, 2017 09:34 PM INPT TOBACCO US[place] [facility] Sep 18, 2016 01:36 PM FORMER TOBACCO USE <1Y [facility] Aug 10, 2016 03:54 PM INPT TOBACCO USE - PT REFUSED [facility] Aug 01, 2016 06:48 PM [facility] Aug 01, 2016 06:48 PM INPT [place]ACCO US[place] [facility] Feb 08, 2015 09:57 AM CURRENT TOBACCO USER LAWSON ADAME [facility] Nov 29, 2013 10:37 AM CURRENT TOBACCO USER LAW[facility] ADAME [facility] Nov 26, 2013 11:09 AM PATIENT IS TOBACCO USER ANAID GARCIA [facility] Nov 27, 2012 12:12 PM CURRENT TOBACCO USER [facility] ADAME [facility] Dec 27, 2011 09:44 AM CURRENT TOBACCO USER [place] JUAREZS [facility] Jan 22, 2011 02:38 PM CURRENT TOBACCO USER [facility] KRISTELS [facility] Mar 13, [...] 2018 ADVANCE DIRECTIVE [facility]AL[facility] Feb 24, 2018 ADVANCE DIRECTIVE DISCUSSION [facility] May 26, 2017 CLINICAL WARNING MAGO CONTRERAS [facility] May 03, 2017 CLINICAL WARNING SARIAH ENGLE [facility] Aug 10, 2016 CLINICAL WARNING ISABEL BARCENAS [facility] Aug 02, 2016 CLINICAL WARNING [facility] ALMAZ[facility] Encounter Notes: All associated encounter notes This section contains the clinical notes associated to the Encounter. Date/Time Encounter Note(s) Provider Source Jun 28, 2022 03:28 PM NURSING TELEPHONE ENCOUNTER NOTE: JAMAL THORNE [facility] LOCAL TITLE: NURSING POST DISCHARGE TELEPHONE STANDARD TITLE: NURSING TELEPHONE ENCOUNTER NOTE DATE OF NOTE: JUN 28, 2022@15:28 ENTRY DATE: JUN 28, 2022@15:28:35 AUTHOR: REX THORNE EXP COSIGNER: URGENCY: STATUS: COMPLETED NURSING POST DISCHARGE TELEPHONE Has ADDEND A Discharge Length of call with : 11-20 minutes Date of Discharge: Jun Discharged from: [facility] PRIMARY DIAGNOSES # Desire for placement # Recent C5 pedical fracture in setting of mecha nical fall Assessment post discharge: Asked patient how he is doing since d/c: He stat es pretty good Discussed that he continues to always wear neck brace and no lifting > [address] and draining without issues d/t be removed after a week. BM since being home. No questions or concerns. H e verbalized understanding to the above mentioned. Reviewed changes to medications: in detail Keflex for 7 days course--finishing Reviewed scheduled appointments: JUL 12, 2022@09:20 Clinic: [facility] EYE OPHTHAL SCHE URER JUL 19, 2022@08:00 Clinic: [facility] 3D BLOOD DRAW CLI TIARRA JUL 19, 2022@09:00 Clinic: [facility] JANIS PERRY MD 3D AUG 05, 2022@11:00 Clinic: [facility] DIETITIAN TELE PA CT 4E NOV 20, 2022@10:30 Clinic: [facility] 3D BLOOD DRAW CLI TIARRA NOV 20, 2022@11:00 Clinic: ROSANNA 3D EKG NOV 20, 2022@11:30 Clinic: [facility] CARDIAC EP MCCRAR Y CONS 3D Confirmed that patient has the Call Center Conta ct information and the after hours number to use if there are any concerns. Home care nurse ordered on discharge: Consult jacobo larson before d/c from [facility] for skilled and non-shelter vis its. [facility] agency has contacted patient. Additional needs identified during call: Patient declined the need for a PCP f/u appt Patient requesting referrals for Neurosurgery and Urology at the [place] d/t transportation difficulty. 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 Patient sta kong when [place] was [place] [facility] he was only sent home w/ an antibiotic. Patient is requesting the medication listed below to be filled at the [place]: GABAPENTIN 300MG CAP 300MG MOUTH THREE TIMES A D AY LIDOCAINE PATCH 1-3 PATCH 4% TOPICALLY EVERY DAY METHOCARBAMOL TAB ONE-HALF TO ONE TABLET PO EVER Y 6 HOURS NEEDED POLYETHYLENE GLYCOL 3350 ORAL PWDR 17 GRAMS MOUT H TWICE A DAY TAMSULOSIN HCL 0.4MG CAP PO DAILY Kindly referring to PCP. /mikal/ REX THORNE RN REGISTERED NURSE Signed: 06/28/2022 16:20 Receipt Acknowledged By: * AWAITING SIGNATURE * MARYELLEN LEON
--- OUTSIDE RECORDS SUMMARY | 2022-07-04 09:24 | XMS_ITS | Encounter Summary ---
:1950 Author Organization [facility] Address [address] [place] [address] Support Name Relationship Address Phone MADELIN MANTILLA Unavailable [address] [phone] [place] [address] MADELIN MANTILLA Unavailable [address] [phone] [place] [address] DHAVAL MANTILLA Unavailable [address] [place] [address] Insurance Providers: All historical and current Section [...] MEDICARE MEDICARE PART Jul 18, PART B [id number] ANNALEE BUSTILLO (WNR) (M) B 2014 24A [phone] ,REGI MEDICARE MEDICARE PART Apr 17, PART A [id number] 800 ANNALEE BUSTILLO (WNR) (M) A 2012A [phone] ,REGI Selected Encounter This section includes the information on record at [place] for the Encounter. Date/Time Encounter Type Encounter Description Reason Provider Source Jul 02, 2022 03:58 Outpatient Encounter ADMIN PAT ACTIVANGELINA PM (MASNONCT) [...] 20 appointments. The data comes from all [facility]. Appointment Date/Time Appointment Type Appointment Facili ty Name Jul 12, 2022 09:20 AM AMBULATORY - SURGERY [facility] S Jul 19, 2022 07:00 AM AMBULATORY - NONE [facility] Jul 19, 2022 08:00 AM AMBULATORY - MEDICINE [facility] CS Jul 19, 2022 09:00 AM AMBULATORY - MEDICINE [facility] CS Jul 25, 2022 09:00 AM [...] AMBULATORY - MEDICINE [facility] CS Nov 20, 2022 11:00 AM AMBULATORY - MEDICINE [facility] CS Nov 20, 2022 11:30 AM AMBULATORY - MEDICINE [facility] Active, Pending, and Scheduled Orders This [...] The data comes from all [facility]. Test Date/Time Test Type Test Details Facility Name Jun 24, 2022 06:55 PM Laboratory - Chemistry EXTRA BLUE TUBE [facility] Order Jun 24, 2022 06:55 PM Laboratory - Chemistry EXTRA GOLD GEL TUBE [facility] Order SERUM Jun 24, 2022 06:55 PM Laboratory - Chemistry EXTRA MINT TUBE [facility] Order Jun 24, 2022 06:55 PM Laboratory - Chemistry EXTRA PURPLE TUBE B LOOD [facility] Order Jun 28, 2022 04:57 PM Consult Order NEUROSURGERY OUT[place] [facility] Cow Tester's Choice Jun 28, 2022 05:00 PM Consult Order UROLOGY OUTPT [place] [facility] Cow Tester's Choice Jul 10, 2022 12:00 AM Laboratory - Chemistry RHEUMATOLOGY CHEM P RITU [facility] Order PLASMA SP ONCE Jul 10, 2022 12:00 AM Laboratory - Chemistry RHEUMATOLOGY HEME P RITU [facility] Order BLOOD SP ONCE Jul 25, 2022 10:30 AM Imaging - General CERVICAL SPINE 4 OR [address] [place] [facility] Radiology Order VIEWS Lab Results: +/- 30 [...] 2022 06:55 PM Reporting Lab: [facility] [phone] Performing Lab: [facility] [address] URINE COLOR YELLOW SPECIFIC GRAVITY 1.039 H [...] PM Reporting Lab: [facility] [address] [facility] [address] Performing Lab: [facility] [address] POTASSIUM 4.9 3.5-5.1 Jun 24, 2022 08:24 PM [facility] AST/SGOT Specim en Type: PLASMA No comment enter ed. Ordering Provid er: JAYDE MENDOZA Report Released Date/Time: Jun 24, 2022 08:09 PM Reporting Lab: [facility] [address] [facility] [address] Performing Lab: [facility] [address] AST/SGOT 19 <34 Jun 24, 2022 08:24 PM [facility] PROTEIN,TOTAL Specim en Type: PLASMA No comment enter ed. Ordering Provid er: JAYDE MENDOZA Report Released Date/Time: Jun 24, 2022 08:09 PM Reporting Lab: [facility] [address] [facility] [address] Performing Lab: [facility] [address] [facility] [address] PROTEIN,TOTAL 6.8 6.0-8.3 Jun 24, 2022 07:40 [facility] PROTHROMBIN TIME/INR Spec imen Type: PLASMA PM No comment enter ed. Ordering Provid er: JAYDE MENDOZA Report Released Date/Time: Jun 24, 2022 06:55 PM Reporting Lab: [facility] [address] [facility] [address] [facility] [address] .INR 1.1 0.8-1.1 .PT 12.1 9.4-12.5 Jun 24, 2022 07:32 [facility] COVID-19 DIAGNOSTIC Speci men Type: NASOPHARYNGEAL PM PANEL (CEPHEID) Comment: Cepreanna rodriguez GeneXpert (618) Ordering Provid er: JAYDE MENDOZA Report Released Date/Time: Jun 24, 2022 06:55 PM Reporting Lab: [facility] [address] [facility] [address] Performing Lab: [facility] [address] COVID-19 (CEPHEID) Not Detected Not Dete cted Jun 24, 2022 [facility] COMPREHENSIVE METABOLIC Spec imen Type: PLASMA 07:29 PM PANEL+MG Comment: Cancel lation reported to: Rajni Giraldo RN on 06/24/22@2004 by [place]. Test result cancelled due to hemolysis interference in sample. Ordering Provid er: JAYDE MENDOZA Report Released Date/Time: Jun 24, 2022 06:55 PM Reporting Lab: [facility] [address] [facility] [address] [facility] [address] Performing Lab: [facility] ONE [facility] [address] CREATININE 1.3 H 0.7-1.2 UREA NITROGEN 19 [...] 2022 06:55 PM Reporting Lab: [facility] [address] Performing Lab: [facility] [address] WBC 9.67 4.0-11.0 RBC 3.36 L 4.6-6.2 [...] smoking and tobacco-related health factors from the [facility] where the Encounter took place.Current Smoking Status This section includes the most current smoking, or tobacco-related health factor, from the [facility] where the Encounter took place. Date/Time Current Smoking Status Comment Facility Mar 05, 2022 01:30 PM [place]-TO[place]ACCO FOR[place] [facility] Tobacco Use History This section includes [...] 2019 10:54 AM VA-TOBACCO FORMER USER [facility] Dec 31, 2019 10:54 AM VA-TOBACCO QUIT < [facility] March 23, 2019 09:53 AM VA-TOBACCO FORMER USER [facility] March 23, 2019 09:53 AM VA-TOBACCO QUIT < [facility] Jun 10, 2018 10:00 AM CURRENT TOBACCO US[place] [facility] May 10, 2018 07:27 PM INPT TOBACCO COUNSELING [place] [facility] May 10, 2018 07:27 PM [place] [facility] Aug 29, 2017 09:55 AM FORMER TOBACCO USE <1Y [facility] May 26, 2017 10:51 PM INPT TOBACCO COUNSELING [place] [facility] May 26, 2017 10:51 PM INPT TO[place]ACCO US[place] [facility] May 03, 2017 09:34 PM [facility] May 03, 2017 09:34 PM INPT [place]ACCO US[place] [facility] Sep 18, 2016 01:36 PM FORMER TOBACCO USE <1Y [facility] Aug 10, 2016 03:54 PM INPT TOBACCO USE - PT REFUSED [facility] Aug 01, 2016 06:48 PM INPT TOBACCO COUNSELING [place] [facility] Aug 01, 2016 06:48 PM INPT TOBACCO [place] [facility] Feb 08, 2015 09:57 AM CURRENT TOBACCO US[place] [facility] Nov 29, 2013 10:37 AM CURRENT TOBACCO US[place] [facility] Nov 26, 2013 11:09 AM PATIENT IS TOBACCO USER [place] [facility] Nov 27, 2012 12:12 PM CURRENT TOBACCO US[place] [facility] Dec 27, 2011 09:44 AM CURRENT TOBACCO US[place] [facility] Jan 22, 2011 02:38 PM CURRENT TOBACCO US[place] [facility] Mar 13, 2010 12:48 PM CURRENT TOBACCO US[place] [facility] Advance Directives: All [...] Encounter Note(s) Provider Source Jun 24, 2022 03:58 PM NONVA NOTE: MILENA DERAS IS [facility] LOCAL TITLE: HOSPITALIZATION PRIVATE NONVA NOTE STANDARD TITLE: NONVA NOTE DATE OF NOTE: JUN 24, 2022@15:58 ENTRY DATE: JUL 02, 2022@15:58:55 AUTHOR: MILENA DERAS EXP COSIGNER: URGENCY: STATUS: COMPLETED This note contains attached HOSPITALIZATION PRIV ATE scanned document(s) received from an outside facility. Open [employer] to review the documen t(s). /mikal/ MILENA DERAS International Marketing Executive Signed: 07/02/2022 15:59
== END 2022-06-18 11:27 | disposition home or self-care (01) ==
PROVIDERS: Visit Provider Family Medicine
DX: S12.400S Unspecified displaced fracture of fifth cervical vertebra, sequela (principal); S12.500S Unspecified displaced fracture of sixth cervical vertebra, sequela; S12.600S Unspecified displaced fracture of seventh cervical vertebra, sequela
CPT/HCPCS: A0425; A0426

== ENCOUNTER 2022-07-16 09:52 | Outpatient (CLI) | payer OTHER, SELFPAY ==
--- OUTSIDE RECORDS SUMMARY | 2022-07-22 15:11 | XMS_ITS | Continuity of Care Document ---
:1950 Author Organization [facility] Care Team Providers Name Role Phone [facility] Unavailable Unavailable Problems Combined list of problems from Department of Defense and [facility] Affairs facilities. It does not include entries that were removed or entered in error. Problem Status Onset Problem Date of Comments Source Date Type Resolution Acute non-ST segment Active Condition [place] elevation myocardial [facility] infarction Alcohol abuse Active Condition [place] (SNOMED CT 85305211) [facility] Anemia (SNOMED CT Active Condition [place] [id number][place] [facility] Ankle pain Active Condition [place] [facility] Benign essential Active Condition [place] hypertension (OMED [facility] CT 6390383) CAD - Coronary Active Condition Sep 18, [place] artery disease 2015 Entered [facility] By: MARYELLEN LEON Comment: s/p stenting Cannabis abuse Active Condition [place] (SNOMED CT 40005957) [facility] Chronic kidney Active Condition [place] disease [facility] Drug monitoring done Active Condition [facility] Elevated liver Active Condition [place] enzymes level [facility] Gastroesophageal Active Condition [place] reflux disease [facility] S (SNOMED CT 958999123) Hand pain Active [place] [facility] Hearing loss * Active Condition [place] (ICD-9-CM 389.9) [facility] HTN - Hypertension Active Condition [place] (SNOMED CT 54554292) [facility] Hyperlipidemia Active Condition [place] (SNOMED CT 19259102) [facility] Jt Replcmnt Stat, Active Condition [place] Knee [facility] Long-term current Active Condition [place] use of anticoagulant [facility] 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 Rhinitis Active [place] [facility] Rib fracture Active Condition Dec 15, [place] 2018 Entered [facility] By: MARYELLEN LEON Comment: s/p fall 11/2018, RIGHT rib Seropositive Active Condition [place] rheumatoid arthritis [facility] Knee: arthralgia * Inactive Condition 05/04/2010 [place] (ICD-9-CM 719.46) [facility] Diagnosis: ICD-10-CM active Diagnosis [place] M06.9 Rheumatoid [facility] arthritis, unspecifiedwith Provider Comments: Seropositive rheumatoid arthritis (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 (current) use of anticoagulants Diagnosis: ICD-10-CM active Diagnosis [place] Z73.6 Limitation of [facility] activities due to disabilitywith Provider Comments: Limitation of activities due to disability Diagnosis: ICD-10-CM active Diagnosis [place] Z71.89 Other [facility] specified counselingwith Provider Comments: Other specified Counseling Diagnosis: ICD-10-CM active Diagnosis [place] Z74.09 Other reduced [facility] mobilitywith Provider Comments: Reduced Mobility Diagnosis: ICD-10-CM active Diagnosis [place] F10.20 Alcohol [facility] dependence, uncomplicatedwith Provider Comments: Alcohol dependence, uncomplicated Admit Reason: FALL active Diagnosis [place] REC DC [facility] Diagnosis: ICD-10-CM active Diagnosis [place] R62.7 Adult failure [facility] to thrivewith Provider Comments: Adult Failure to Thrive Diagnosis: ICD-10-CM active Diagnosis [place] I47.1 [facility] Supraventricular tachycardiawith Provider Comments: Multifocal atrial tachycardia ([facility] [id number]) Diagnosis: ICD-10-CM active Diagnosis [place] I48.0 Paroxysmal [facility] atrial fibrillationwith Provider Comments: Paroxysmal atrial fibrillation ([facility] [id number]) Diagnosis: ICD-10-CM active Diagnosis [place] Z13.6 Encounter for [facility] screening for cardiovascular disorderswith Provider Comments: Encounter for Screening for Cardiovascular Disorders Diagnosis: ICD-10-CM active Diagnosis [place] K64.8 Other [facility] hemorrhoidswith Provider Comments: Other Hemorrhoids Diagnosis: ICD-10-CM active Diagnosis [place] I48.92 Unspecified V [facility] atrial flutterwith Provider Comments: Unspecified Atrial Flutter Diagnosis: ICD-10-CM active Diagnosis [place] I47.1 [facility] Supraventricular tachycardiawith Provider Comments: Multifocal atrial tachycardia (SNOMED CT 20681369) Diagnosis: ICD-10-CM active Diagnosis [place] K02.9 Dental caries, [facility] unspecifiedwith Provider Comments: Dental Caries, unspecified Diagnosis: ICD-10-CM active Diagnosis [place] Z23 Encounter for [facility] immunizationwith Provider Comments: Encounter for Immunization Diagnosis: ICD-10-CM active Diagnosis [place] H25.13 Age-related V A [facility] nuclear cataract, bilateralwith Provider Comments: Age-related nuclear cataract, bilateral Diagnosis: ICD-10-CM active Diagnosis [place] I25.10 Athscl heart [facility] disease of tribal coronary artery w/o ang pctrswith Provider Comments: CAD - Coronary artery disease ([facility] [id number]) Diagnosis: ICD-10-CM active Diagnosis [place] L40.50 Arthropathic [facility] psoriasis, unspecifiedwith Provider Comments: Psoriatic arthritis Medications Combined list of outpatient medications from Department of Defense and Veterans Affairs facilities. Medications provided include 1) outpatient medications from the last 15 months, and 2) patient-reported medications. Medication Details Route Status Patient Prescription Prescription Last Ordering Order Source Instructions Expires Number Dispense Provider Date Date ACETAMINOPH TAKE TWO ORALLY ACTIVE 02/09/2023 [id number] H OAMATTHEW,VIE 02/11/ [place] 500MG TABLETS 2 T H 2021 [place] TAB BY MOUTH [facility] FOUR TIMES A DAY NEEDED *NOT TO EXCEED 4000MG IN 24 HOURS* FOR PAIN ACETAMINOPH TAKE TWO ORALLY DISCONT 01/13/2022 [id number] LEON,VIE 01/16/ [place] 500MG TABLETS INUED 2 T H 2020 [place] TAB BY MOUTH [facility] FOUR TIMES A DAY NEEDED *NOT TO EXCEED 4000MG IN 24 HOURS* FOR PAIN ADALIMUMAB INJECT SUBCUT ACTIVE 01/12/2023 [id number] RIN DEN,TI 02/08/ [place] 40MG/0.8ML 40 MG ANEOUS 2 MOTHY D 2021 [place] A INJ,PEN,KIT UNDER [facility] THE SKIN EVERY 2 WEEKS ADALIMUMAB INJECT SUBCUT DISCONT 09/29/2022 [id number] MO LITOR,J 10/01/ [place] 40MG/0.8ML 40 MG ANEOUS INUE 2 ERRY A 2020 [place] INJ,PEN,KIT UNDER HCS THE SKIN EVERY 2 WEEKS ADALIMUMAB INJECT SUBCUT DISCONT 01/13/2022 [id number] AL VANPOUR 01/16/ [place] 40MG/0.8ML 40 MG ANEOUS INUE 1 ,RAGHAVENDRA 2020 [place] INJ,PEN,KIT UNDER HCS THE SKIN EVERY 2 WEEKS AMIODARONE TAKE ONE ORALLY ACTIVE 05/16/2023 [id number] MC CRARY,A 05/16/ [place] HCL TABLET 2 BBIE L 2021 [place] (PACERONE) BY MOUTH HCS 200MG TAB EVERY DAY FOR HEART RHYTHM - TAKE WITH FOOD AMIODARONE TAKE ONE ORALLY DISCONT 07/09/2022 [id number] M CCRARY,A 04/10/ [place] HCL TABLET INUED 2 BBIE L 2021 [place] (PACERONE) BY MOUTH (EDIT) HCS 200MG TAB TWICE A DAY FOR 30 DAYS, THEN TAKE ONE TABLET EVERY DAY FOR HEART RHYTHM - TAKE WITH FOOD APIXABAN TAKE ONE ORALLY ACTIVE 06/06/2023 [id number] EDUARDO ON, 06/06/ [place] 5MG TAB TABLET 2 HANG 2021 [place] BY MOUTH [facility] EVERY 12 HOURS TO PREVENT BLOOD CLOTS and STROKE. APIXABAN TAKE ONE ORALLY DISCONT 04/24/2023 [id number] Arias GRACIA 04/24/ [place] 5MG TAB TABLET INUED 2 RISTIN Y 2021 [place] BY MOUTH (EDIT) [facility] EVERY 12 HOURS TO PREVENT BLOOD CLOTS and STROKE. APIXABAN TAKE ONE ORALLY DISCONT 05/10/2022 [id number] [facility] RARY,A 04/10/ [place] 5MG TAB TABLET INUED 2 BBIE L 2021 [place] BY MOUTH (EDIT) [facility] EVERY 12 HOURS TO PREVENT BLOOD CLOTS and STROKE. ASPIRIN TAKE ONE ORALLY DISCONT 06/02/2022 [id number] DANAY NG,VIE 07/26/ [place] 81MG TAB,EC TABLET INUED 2 T H 2020 [place] BY MOUTH [facility] EVERY DAY ASPIRIN TAKE ONE ORALLY DISCONT 12/26/2021 [id number] DANAY NG,VIE 12/27/ [place] 81MG TAB,EC TABLET INUE 1 T H 2020 [place] BY MOUTH H[facility] EVERY DAY ATORVASTATI TAKE ONE ORALLY ACTIVE 03/06/2023 [id number] H OANG,VIE 03/05/ [place] CA 80MG TABLET 2 T H 2021 [place] TAB BY MOUTH HCS AT BEDTIME FOR CHOLESTE ROL REPLACES SIMVASTA TIN ATORVASTATI TAKE ORALLY DISCONT 06/02/2022 [id number] H OANG,VIE 06/03/ [place] 80MG ONE-HALF INUED 2 T H 2020 [place] TAB TABLET (EDIT) HCS BY MOUTH AT BEDTIME FOR CHOLESTE ROL REPLACES SIMVASTA TIN CARBOXYMETH INSTILL BOTH 07/12/2022 [id number] S CHEURER, 07/12/ [place] YLCELLULOSE 1 DROP EYES 1 ANGELA A 2020 [place] A NA 0.25% IN BOTH HCS SOLN,OPH EYES FOUR TIMES A DAY CEPHALEXIN TAKE 1 ORALLY ACTIVE [place],VIE [place] 500MG CAP CAPSULE T H 2021 [place] BY MOUTH HCS FOUR TIMES A DAY CHOLECALCIF TAKE ONE ORALLY ACTIVE 06/29/2023 [id number] LEON,VIE 07/27/ [place] RONAK 25MCG TABLET 2 T H 2021 [place] (1,000UNIT) BY MOUTH HCS TAB EVERY DAY CHOLECALCIF TAKE ONE ORALLY DISCONT 06/02/2022 [id number] LEON,VIE 06/03/ [place] RONAK 25MCG TABLET INUED 2 T H 2020 [place] (1,000UNIT) BY MOUTH HCS TAB EVERY DAY CYANOCOBALA TAKE ONE ORALLY ACTIVE 03/06/2023 [id number] LEON,VIE 05/30/ [place] MIN 1000MCG TABLET 2 T H 2021 [place] TAB BY MOUTH HCS EVERY DAY CYANOCOBALA TAKE ONE ORALLY DISCONT 06/02/2022 [id number] LEON,VIE 06/03/ [place] MIN 1000MCG TABLET INUED 2 T H 2020 [place] TAB BY MOUTH HCS EVERY DAY DOCUSATE NA TAKE TWO ORALLY ACTIVE LEONJATIN SPAIN 06/24 / [place] 50MG/SENNOS TABLETS T H 2021 [place] IDES 8.6MG BY MOUTH HCS TAB TWICE A DAY FLUTICASONE SPRAY 1 NASAL ACTIVE 06/29/2023 [id number] H OANG,VIE 07/02/ [place] PROPIONATE SPRAY IN 2 T H 2021 [place] A 50MCG/SPRAY EACH HCS SOLN,NASAL, NOSTRIL 16GM TWICE A DAY NEEDED FOR RUNNY NOSE USE REGULARL Y FOR RELIEF OF ALLERGIE S/CONGES TION FLUTICASONE SPRAY 1 NASAL DISCONT 06/02/2022 [id number] LEON,VIE 06/03/ [place] PROPIONATE SPRAY IN INUED 1 T H 2020 [place] A 50MCG/SPRAY EACH HCS SOLN,NASAL, NOSTRIL 16GM TWICE A DAY NEEDED FOR RUNNY NOSE USE REGULARL Y FOR RELIEF OF ALLERGIE S/CONGES TION FOLIC ACID TAKE ONE ORALLY ACTIVE 03/06/2023 [id number] H OAJATIN CASTRO 04/25/ [place] 1MG TAB TABLET 2 T H 2021 [place] BY MOUTH HCS EVERY DAY FOLIC ACID TAKE ONE ORALLY DISCONT 01/12/2023 [id number] RINDEN,TI 02/04/ [place] 1MG TAB TABLET INUED 2 MOTHY D 2021 [place] BY MOUTH HCS EVERY DAY FOLIC ACID TAKE ONE ORALLY DISCONT 01/13/2022 [id number] ALVANPOUR 02/19/ [place] 1MG TAB TABLET INUE 1 ,RAGHAVENDRA 2020 [place] BY MOUTH HCS EVERY DAY GABAPENTIN TAKE ONE ORALLY ACTIVE 06/29/2023 [id number] JATIN WHITESIDE 07/02/ [place] 300MG CAP CAPSULE 2 T H 2021 [place] BY MOUTH HCS THREE TIMES A DAY GABAPENTIN TAKE 1 ORALLY ACTIVE JATIN LE[place] 06/24/ [place] 300MG CAP CAPSULE T H 2021 [place] BY MOUTH HCS THREE TIMES A DAY HEMORRHOIDA APPLY RECTAL ACTIVE MAGANAM STEARNS [place] OINT,RTL THIN SSEIN 2021 [place] LAYER TO ISSAK HCS RECTUM FOUR TIMES A DAY NEEDED ISOSORBIDE TAKE ORALLY ACTIVE 03/06/2023 [id number] CAROLYN, VIE 03/13/ [place] MONONITRATE ONE-HALF 2 T H 2021 [place] 60MG TAB,SA TABLET HCS BY MOUTH EVERY DAY ISOSORBIDE TAKE ORALLY DISCONT 03/22/2022 [id number] FB-SAG ER, Departm MONONITRATE ONE-HALF INUED 2021 ent o f 60MG TAB,SA TABLET BY MOUTH s EVERY Affairs DAY ISOSORBIDE TAKE ONE ORALLY DISCONT 06/02/2022 [id number] CAROLYN,VIE 06/23/ [place] MONONITRATE TABLET INUED 2 T H 2020 [place] 60MG TAB,SA BY MOUTH HCS EVERY DAY FOR CHEST PAIN LIDOCAINE APPLY 1 TOPICA ACTIVE 06/29/2023 [id number] CHARLES LEONE 07/02/ [place] 5% PATCH PATCH LLY 2 T H 2021 [place] TOPICALL HCS Y NEEDED FOR PAIN. WEAR FOR ONLY 12 HOURS THEN REMOVE FOR 12 HOURS. LIDOCAINE APPLY TOPICA ACTIVE CAROLYN,JATIN 06/24/ [place] PATCH 1-3 LLY T H 2021 [place] PATCH 4% HCS TOPICALL Y EVERY DAY LORATADINE TAKE ONE ORALLY ACTIVE 06/29/2023 [id number] HO GRABIELVIE 07/13/ [place] 10MG TAB TABLET 2 T H 2021 [place] BY MOUTH HCS EVERY DAY FOR ALLERGY SYMPTOMS LORATADINE TAKE ONE ORALLY DISCONT 06/02/2022 [id number] H OANG,VIE 06/23/ [place] 10MG TAB TABLET INUED 2 T H 2020 [place] BY MOUTH HCS EVERY DAY FOR ALLERGY SYMPTOMS MAGNESIUM TAKE 1 ORALLY 04/05/2022 [id number] RANWEI LER 03/06/ [place] CITRATE BOTTLE 2 ,VJ B 2021 [place] LIQUID,ORAL BY MOUTH HCS ONCE AT 12PM (NOON) ONE DAY BEFORE PROCEDUR E FOR COLON PREP METHOCARBAM TAKE ONE ORALLY ACTIVE 06/29/2023 [id number] H OAMATTHEWCHARLESE 07/02/ [place] 500MG TABLET 2 T H 2021 [place] TAB BY MOUTH HCS THREE TIMES A DAY NEEDED FOR MUSCLE SPASM OR MUSCLE PAIN METHOCARBAM TAKE ORALLY ACTIVE CHARLES LEONNina 06/24/ [place] TAB ONE-HALF T H 2021 [place] TO ONE HCS TABLET BY MOUTH EVERY 6 HOURS NEEDED METOPROLOL TAKE ONE ORALLY ACTIVE 03/06/2023 [id number] H JATIN IZAGUIRRE 03/13/ [place] TARTRATE TABLET 2 T H 2021 [place] 50MG TAB BY MOUTH HCS TWICE A DAY METOPROLOL TAKE ONE ORALLY DISCONT 03/22/2022 [id number] F B-GABRIEL, Departm TARTRATE TABLET INUED 2021 ent of 50MG TAB BY MOUTH TWICE A s DAY Affairs METOPROLOL TAKE ORALLY DISCONT 06/02/2022 [id number] CAROLYNVIE 08/07/ [place] TARTRATE ONE-HALF INUED 2 T H 2020 [place] 50MG TAB TABLET HCS BY MOUTH TWICE A DAY FOR HEART METOPROLOL TAKE ORALLY DISCONT 07/29/2021 [id number] CHARLES LEONE 08/18/ [place] TARTRATE ONE-HALF INUE 1 T H 2019 [place] 50MG TAB TABLET HCS BY MOUTH TWICE A DAY FOR HEART OXYCODONE TAKE ORALLY ACTIVE JATIN LE[place] 06/24/ [place] TAB ONE-HALF T H 2021 [place] TO ONE HCS TABLET BY MOUTH EVERY 4 HOURS NEEDED PANTOPRAZOL TAKE ONE ORALLY ACTIVE 03/06/2023 [id number] CHARLES LEONE 04/30/ [place] E NA 40MG TABLET 2 T H 2021 [place] TAB,EC BY MOUTH HCS EVERY MORNING ONE-HALF HOUR BEFORE EATING TO DECREASE STOMACH ACID TAKE ON AN EMPTY STOMACH, AT LEAST 30 MINUTES PRIOR TO MEAL PANTOPRAZOL TAKE ONE ORALLY DISCONT 06/02/2022 [id number] CHARLES LEONE 08/07/ [place] NA 40MG TABLET INUED 2 T H 2020 [place] TAB,EC BY MOUTH HCS EVERY MORNING ONE-HALF HOUR BEFORE EATING TO DECREASE STOMACH ACID TAKE ON AN EMPTY STOMACH, AT LEAST 30 MINUTES PRIOR TO MEAL PANTOPRAZOL TAKE ONE ORALLY DISCONT 07/29/2021 [id number] LEON,VIE 08/09/ [place] NA 40MG TABLET INUE 1 T H 2019 [place] TAB,EC BY MOUTH HCS EVERY MORNING ONE-HALF HOUR BEFORE EATING TO DECREASE STOMACH ACID TAKE ON AN EMPTY STOMACH, AT LEAST 30 MINUTES PRIOR TO MEAL PEG-3350/EL TAKE 1 ORALLY 04/05/2022 [id number] RA NWE[place]ER 03/06/ [place] ECTROLYTES CONTAINE 2 [...] EXAM. POLYETHYLEN TAKE 17 ORALLY ACTIVE 06/29/2023 [id number] PROSPER GRABIEL,VIE 07/02/ [place] GLYCOL GRAMS BY 2 T H 2021 [place] 3350 MOUTH HCS PWDR,ORAL TWICE A DAY NEEDED FOR CONSTIPA TION *MIX IN 4 TO 8 OUNCES OF LIQUID DIRECTED *USE COVER TO MEASURE POWDER* POLYETHYLEN TAKE 17 ORALLY ACTIVE LEONCHARLESE 06/24/ [place] GLYCOL GRAMS BY T H 2021 [place] 3350 MOUTH HCS PWDR,ORAL TWICE A DAY PREDNISONE TAKE ONE ORALLY ACTIVE 01/12/2023 [id number] R [place],TI 01/19/ [place] 10MG TAB TABLET 2 MOTHY D 2021 [place] BY MOUTH HCS EVERY DAY PREDNISONE TAKE ONE ORALLY DISCONT 03/21/2022 [id number] M [place],J 03/20/ [place] 10MG TAB TABLET INUE 1 ERRY A 2020 [place] BY MOUTH HCS EVERY DAY SULFASALAZI TAKE TWO ORALLY ACTIVE 01/12/2023 [id number] RINDEN,TI 01/19/ [place] 500MG TABLETS 2 MOTHY D 2021 [place] TAB BY MOUTH HCS TWICE A DAY SULFASALAZI TAKE TWO ORALLY DISCONT 03/21/2022 [id number] [place],J 03/20/ [place] 500MG TABLETS INUE 1 ERRY A 2020 [place] TAB BY MOUTH HCS TWICE A DAY TAMSULOSIN TAKE ONE ORALLY ACTIVE 06/29/2023 [id number] JATIN WHITESIDE 07/02/ [place] HCL 0.4MG CAPSULE 2 T H 2021 [place] CAP BY MOUTH HCS AT BEDTIME TAMSULOSIN TAKE 1 ORALLY ACTIVE JATIN LEON [...] [place] to adverse to adverse 1 IS [facility] reactions reactions to drug to drug (finding) (finding) Immunizations Combined list of available immunizations from the Department of Defense and Veterans Affairs facilities. Immunization Series Date Administered Site Reaction Lot CVX Drug St atus Comments Source Given By Number Code Functional Support Analyst COVID-19 4 complet PFR; [place] (Cartesian), 2021 ed [id number]; [place] MRNA, LNP-S, 02 HCS PF, 30 2 MCG/0.3 ML DOSE, JJ-SUCROSE (AGES 12+ YEARS) COVID-19 3 complet PRF; [place] (Cartesian), 2020 ed [id number]; [place] MRNA, LNP-S, 02 HCS PF, 30 2 MCG/0.3 ML DOSE INFLUENZA, complet [place] INJECTABLE, 2020 ed [place] QUADRIVALENT, HCS PRESERVATIVE FREE COVID-19 2 complet PFR; [place] (Cartesian), 2020 ed [id number]; [place] MRNA, LNP-S, 02 HCS PF, 30 1 MCG/0.3 ML DOSE COVID-19 1 complet PFR; [place] (PFIZER), 2020 ed [id number]; [place] MRNA, LNP-S, 02 CBOC [...] VA SEASONAL HCS INFLUENZA, complet [place] SEASONAL, 2015 ed [place] INJECTABLE, HC S PRESERVATIVE FREE INFLUENZA, complet [place] HIGH DOSE 2014 ed [place] SEASONAL H[facility] PNEUMOCOCCAL complet [facility] [place] CONJUGATE PCV 2015 ed PHARM, M20 [place] 13 640,03/03 HCS INFLUENZA, complet [place] SEASONAL, 2013 ed [place] INJECTABLE, HC S PRESERVATIVE FREE PNEUMOCOCCAL, complet michelle ck and [place] UNSPECIFIED 2013 ed co,[id number] [facility] VA FORMULATION 6,25sep1 4 HCS INFLUENZA, complet [place] UNSPECIFIED 2013 ed [place] [facility] FORMULATION HC S INFLUENZA, complet [place] UNSPECIFIED 2012 ed [place] FORMULATION HC S ZOSTER LIVE complet [employer] [facility] [place] 2012 ed INC, [place] [id number], HCS [id number] TDAP complet glaxosmit M [place] 2009 ed hkline,ac [place] [id number], HCS 01/03/12 Results Combined list of recent chemistry, hematology and other laboratory results from Department of Defense and Veterans Affairs, ranging from 15 months to all on record, depending upon the facility. Order Results Value Reference Date Interpretation Specimen Commen ts Source Name Range RHEUMATO CREATININE 1.5 0.7 - 1.2 09/ H Specimen T ype: PLASMA [place] [MASS/VOLU /2021 No comment en tered. IS PA Giferent CHEM ME] IN Ordering Provid er: JENNA LUIS PANEL SERUM OR Report Release d Date/Time: Jan 11, 2022 11:04 AM PLASMA Reporting Lab: [facility] [address] [facility] [address] Performing Lab: [facility] [address] [facility] [address] RHEUMATO ALKALINE 72 40 - 150 09 Specimen Type : PLASMA [place] PHOSPHATAS /2021 No comment en tered. IS PA Giferent CHEM E Ordering Provid er: JENNA LUIS PANEL [ENZYMATIC Report Relea sed Date/Time: Jan 11, 2022 11:04 AM ACTIVITY/V Reporting La b: [facility] OLUME] IN [facility] [address] SERUM OR Performing Lab : [facility] PLASMA [address] [facility] [address] RHEUMATO ALANINE 12 <55 - 55 07/19 Specimen Type: PLASMA [place] AMINOTRANS /2021 No comment en tered. IS PA Giferent CHEM FERASE Ordering Provid er: JENNA LUIS D PANEL [ENZYMATIC Report Relea sed Date/Time: Jan 11, 2022 11:04 AM ACTIVITY/V Reporting La b: [facility] OLUME] IN [address] [facility] [address] SERUM OR Performing Lab : [facility] PLASMA [place] [address] RHEUMATO ASPARTATE 11 <34 - 34 07/19 Specimen Typ e: PLASMA [place] LOG[place] AMINOTRANS /2021 No comment en tered. IS PA Giferent CHEM FERASE Ordering Provid er: JENNA LUIS D PANEL [ENZYMATIC Report Relea sed Date/Time: Jan 11, 2022 11:04 AM ACTIVITY/V Reporting La b: [facility] HCS OLUME] IN [address] [facility] [address] [facility] [address] SERUM OR Performing Lab : [facility] PLASMA [address] [facility] [address] RHEUMATO C REACTIVE 5.28 <5.00 - 09/02 H Specimen Typ e: PLASMA [place] PROTEIN 5.00 /2021 No comment enter ed. IS [facility] CHEM [MASS/VOLU Ordering Pro vider: JENNA LUIS PANEL ME] IN Report Released Date/Time: Jan 11, 2022 11:04 AM SERUM OR Reporting Lab: [facility] PLASMA BY [facility] [address] HIGH Performing Lab: [facility] SENSITIVIT [facility] [address] Y METHOD RHEUMATO GLOMERULAR 49 60 09/02 L Specimen Typ e: PLASMA [place] LOGY No comment en tered. IS [facility] CHEM RATE/1.73 Ordering Prov ider: JENNA LUIS PANEL SQ Report Released Date/Time: Jan 11, 2022 11:04 AM TERI Reporting La b: [facility] D [VOLUME [facility] [address] RATE/AREA] Performing L ab: [facility] IN SERUM, [facility] [address] PLASMA OR BLOOD BY CREATININE -BASED FORMULA (CKD-EPI) RHEUMATO LEUKOCYTES 13.17 4.0 - 11.0 09/02 H Specimen Type: BLOOD [place] [#/VOLUME] /2021 No comment en tered. IS [facility] HEME IN BLOOD Ordering Provi maria: JENNA LUIS PANEL BY Report Released Date/Time: Jan 11, 2022 11:04 AM AUTOMATED Reporting Lab : [facility] COUNT [address] [facility] [address] Performing Lab: [facility] [address] [facility] [address] RHEUMATO ERYTHROCYT 3.21 4.6 - 6.2 09/ L Specimen T ype: BLOOD [place] LOG[place] No comment enter ed. IS [facility] HEME [#/VOLUME] Ordering Pro vider: JENNA LUIS PANEL IN BLOOD Report Release d Date/Time: Jan 11, 2022 11:04 AM BY Reporting Lab: [facility] AUTOMATED [facility] [address] COUNT Performing Lab: [facility] [address] [facility] [address] RHEUMATO HEMOGLOBIN 10.9 13.5 - 09/ L Specimen Typ e: BLOOD [place] LOG[place] [MASS/VOLU 17.9 /2021 No comment en tered. IS [facility] HEME ME] IN Ordering Provid er: JENNA LUIS PANEL BLOOD Report Released Date/Time: Jan 11, 2022 11:04 AM Reporting Lab: [facility] [address] [facility] [address] Performing Lab: [facility] [address] [facility] [address] RHEUMATO HEMATOCRIT 33.9 41 - 54 / L Specimen Typ e: BLOOD [place] LOGY [VOLUME /2021 No comment enter ed. IS PA [facility] HEME FRACTION] Ordering Prov ider: JENNA ULIS PANEL OF BLOOD Report Release d Date/Time: Jan 11, 2022 11:04 AM BY Reporting Lab: [facility] AUT[employer] [address] [facility] [address] COUNT Performing Lab: [facility] [address] [facility] [address] RHEUMATO MCV 105.6 80 - 100 07/19 H Specimen Type: BLOOD [place] LOGY [ENTITIC /2021 No comment ente red. IS PA [facility] HEME VOLUME] BY Ordering Pro vider: JENNA LUIS PANEL AUTOMATED Report Releas ed Date/Time: Jan 11, 2022 11:04 AM COUNT Reporting Lab: [facility] [address] [facility] [address] Performing Lab: [facility] [address] DR DOM[address]NGUEZ [facility] [address] [place]UM[place] MCH 34.0 27 - 33 07/19 H Specimen Type: BLOOD [place] LOGY [ENTITIC /2021 No comment ente red. IS [facility] HEME MASS] BY Ordering Provi maria: JENNA LUIS PANEL AUTOMATED Report Releas ed Date/Time: Jan 11, 2022 11:04 AM COUNT Reporting Lab: [facility] [address]NG[address]Z [facility] [address] Performing Lab: [facility] [address] DOM[address]NG[address]Z [facility] [address] [place] MCHC 32.2 32.0 - 07/19 Specimen Type: BLOOD [place] LOGY [MASS/VOLU 37.5 No comment en tered. IS [facility] HEME ME] BY Ordering Provid er: JENNA LUIS PANEL AUTOMATED Report Releas ed Date/Time: Jan 11, 2022 11:04 AM COUNT Reporting Lab: [facility] [address]NG[address]Z [facility] [address] Performing Lab: [facility] [address]NG[address]Z [facility] [address] [place] PLATELETS pending 07/19 Specimen Type : BLOOD [place] LOGY [#/VOLUME] /2021 No comment en tered. IS [facility] HEME IN BLOOD Ordering Provi maria: JENNA LUIS PANEL BY Report Released Date/Time: Jan 11, 2022 11:04 AM AUTOMATED Reporting Lab : [facility] COUNT [address] [place] [address] Performing Lab: [facility] [address] [place] [address] [place]UMAT[place] PLATELET pending 07/19 Specimen Type: BLOOD [place] LOG[place] MEAN No comment enter ed. IS [facility] HEME VOLUME Ordering Provid er: JENNA LUIS PANEL [ENTITIC Report Release d Date/Time: Jan 11, 2022 11:04 AM VOLUME] IN Reporting La b: [facility] BLOOD BY [address] Kathya JONES [facility] [address] AUTOMATED Performing La b: [facility] COUNT [address] [place] [address] [place] NEUTROPHIL 53.0 07/19 Specimen Typ e: BLOOD [place] LOGY S/ No comment enter ed. IS [facility] HEME LEUKOCYTES Ordering Pro vider: JENNA LUIS PANEL IN BLOOD Report Release d Date/Time: Jan 11, 2022 11:04 AM BY MANUAL Reporting Lab : [facility] COUNT [address] [place] [address] Performing Lab: [facility] [address] [place] [address] [place] LYMPHOCYTE 24.3 07/19 Specimen Typ e: BLOOD [place] LOGY S/ No comment enter ed. IS [facility] HEME LEUKOCYTES Ordering Pro vider: JENNA LUIS PANEL IN BLOOD Report Release d Date/Time: Jan 11, 2022 11:04 AM BY MANUAL Reporting Lab : [facility] COUNT [address] [place] [address] Performing Lab: [facility] [address] [place] [address] [place] MONOCYTES/ 9.6 07/19 Specimen Typ e: BLOOD [place] LOGY No comment enter ed. IS [facility] HEME LEUKOCYTES Ordering Pro vider: JENNA LUIS PANEL IN BLOOD Report Release d Date/Time: Jan 11, 2022 11:04 AM BY Reporting Lab: [facility] [place]OMATED [place] [address] COUNT Performing Lab: [facility] [address]NG[address]Z [facility] [address] [place] EOSINOPHIL 11.2 07/19 Specimen Typ e: BLOOD [place] LOGY S/ No comment enter ed. IS [facility] HEME LEUKOCYTES Ordering Pro vider: JENNA LUIS PANEL IN BLOOD Report Release d Date/Time: Jan 11, 2022 11:04 AM BY Reporting Lab: [facility] AUTOMATED [address] [facility] [address] [facility] [address] COUNT Performing Lab: [facility] [address]NGUEZ [facility] [address] [place] BASOPHILS/ 1.0 09 Specimen Typ e: BLOOD [place] LOGY No comment enter ed. IS [facility] HEME LEUKOCYTES Ordering Pro vider: JENNA LUIS PANEL IN BLOOD Report Release d Date/Time: Jan 11, 2022 11:04 AM BY MANUAL Reporting Lab : [facility] [place] [address] Performing Lab: [facility] [place] [address] [place] ERYTHROCYT 12.1 11.5 - 07/19 Specimen Typ e: BLOOD [place] LOGY E 14.5 No comment enter ed. IS [facility] HEME DISTRIBUTI Ordering Pro vider: JENNA LUIS PANEL ON WIDTH Report Release d Date/Time: Jan 11, 2022 11:04 AM [RATIO] BY Reporting La b: [facility] AUTOMATED [facility] [address] COUNT Performing Lab: [facility] [place] [address] [place] LYMPHOCYTE 3.20 1.0 - 4.0 07/19 Specimen T ype: BLOOD [place] LOGY No comment enter ed. IS [facility] HEME [#/VOLUME] Ordering Pro vider: JENNA LUIS PANEL IN BLOOD Report Release d Date/Time: Jan 11, 2022 11:04 AM BY Reporting Lab: [facility] AUTOMATED [facility] [address] COUNT Performing Lab: [facility] [address] DOM[address]NGUEZ [facility] [address] [place] MONOCYTES 1.26 0.1 - 1.0 09/02 H Specimen Ty pe: BLOOD [place] LOGY [#/VOLUME] No comment en tered. IS [facility] HEME IN BLOOD Ordering Provi maria: JENNA LUIS PANEL BY Report Released Date/Time: Jan 11, 2022 11:04 AM AUTOMATED Reporting Lab : [facility] [place] [address] Performing Lab: [facility] [address] DOM[address]NGUEZ [facility] [address] [place] NEUTROPHIL 6.99 2.0 - 7.7 09 Specimen T ype: BLOOD [place] LOGY S /2021 No comment enter ed. IS [facility] HEME [#/VOLUME] Ordering Pro vider: JENNA LUIS PANEL IN BLOOD Report Release d Date/Time: Jan 11, 2022 11:04 AM BY Reporting Lab: [facility] AUTOMATED [address] [facility] [address] COUNT Performing Lab: [facility] [address] DOM[address]NGUEZ [facility] [address] [place] EOSINOPHIL 1.47 0 - 0.5 / H Specimen Typ e: BLOOD [place] LOGY S /2021 No comment enter ed. IS [facility] HEME [#/VOLUME] Ordering Pro vider: JENNA LUIS PANEL IN BLOOD Report Release d Date/Time: Jan 11, 2022 11:04 AM BY Reporting Lab: [facility] AUTOMATED [address] [facility] [address] COUNT Performing Lab: [facility] [address] DOM[address]NGUEZ [facility] [address] [place] BASOPHILS 0.13 0 - 0.2 07/19 Specimen Type : BLOOD [place] LOGY [#/VOLUME] /2021 No comment en tered. IS [facility] HEME IN BLOOD Ordering Provi maria: JENNA LUIS PANEL BY Report Released Date/Time: Jan 11, 2022 11:04 AM AUTOMATED Reporting Lab : [facility] COUNT [address] DOM[address]NGUEZ [facility] [address] Performing Lab: [facility] [address] DOM[address]NGUEZ [facility] [address] [place] IG(META,MY 0.9 07/19 Specimen Typ e: BLOOD [place] LOG[place] CARO,PRO) /2021 No comment ente red. IS [facility] HEME Ordering Provid er: JENNA LUIS PANEL Report Released Date/Time: Jan 11, 2022 11:04 AM Reporting Lab: [facility] [address] DOM[address]NGUEZ [facility] [address] Performing Lab: [facility] [address] [place] [address] [place] IMMATURE 0.12 0 - 0.1 09/02 H Specimen Type: BLOOD [place] GRANULOCYT /2021 No comment en zach. IS [facility] HEME ES Ordering Provid er: JENNA LUIS PANEL [PRESENCE] Report Relea sed Date/Time: Jan 11, 2022 11:04 AM IN BLOOD Reporting Lab: [facility] BY [address] [place] [address] AUTOMATED Performing La b: [facility] COUNT [address] [place] [address] [place] ERYTHROCYT 22 5 - 15 09/02 H Specimen Typ e: BLOOD [place] LOG[place] E /2021 No comment enter ed. IS [facility] HEME SEDIMENTAT Ordering Pro vider: JENNA LUIS PANEL ION RATE Report Release d Date/Time: Jan 11, 2022 11:04 AM Reporting Lab: [facility] [address] [place] [address] Performing Lab: [facility] [address] [place] [address] URINALYS COLOR OF YELLOW 06/24 Specimen Type: URINE [place] IS URINE /2021 No comment enter ed. IS [facility] Ordering Provid er: JAYDE MENDOZA Report Released Date/Time: Jun 24, 2022 06:55 PM Reporting Lab: [facility] [place] [address] Performing Lab: [facility] [address] [place] [address] URINALYS SPECIFIC 1.039 1.003 - 06/24 H Specimen Type: URINE [place] IS GRAVITY OF 1.035 /2021 No comment en zach. IS [facility] URINE Ordering Provid er: JAYDE MENDOZA Report Released Date/Time: Jun 24, 2022 06:55 PM Reporting Lab: [facility] [address] [place] [address] Performing Lab: [facility] [address] [place] [address] URINALYS BILIRUBIN. NEGATIVE 06/24 Specimen Ty pe: URINE [place] IS TOTAL /2021 No comment enter ed. [facility] [[facility]] Ordering Pro vider: JAYDE MENDOZA IN URINE Report Release d Date/Time: Jun 24, 2022 06:55 PM BY TEST Reporting Lab: [facility] [place] [address] Performing Lab: [facility] [address] [place] [address] URINALYS KETONES NEGATIVE 06/24 Specimen Type: URINE [place] IS [MASS/VOLU /2021 No comment en zach. IS [facility] ME] IN Ordering Provid er: JAYDE MENDOZA W URINE BY Report Release d Date/Time: Jun 24, 2022 06:55 PM TEST STRIP Reporting La b: [facility] [place] [address] Performing Lab: [facility] [place] [address] URINALYS GLUCOSE NEGATIVE <30 - 30 06/24 Specimen Type : URINE [place] IS [MASS/VOLU /2021 No comment en zach. IS [facility] ME] IN Ordering Provid er: JAYDE MENDOZA URINE BY Report Release d Date/Time: Jun 24, 2022 06:55 PM TEST STRIP Reporting La b: [facility] [place] [address] Performing Lab: [facility] [place] [address] URINALYS PROTEIN 50 <20 - 20 06/24 Specimen Type: URINE [place] IS [MASS/VOLU /2021 No comment en zach. IS [facility] ME] IN Ordering Provid er: JAYDE MENDOZA URINE BY Report Release d Date/Time: Jun 24, 2022 06:55 PM TEST STRIP Reporting La b: [facility] [place] [address] Performing Lab: [facility] [place] [address] URINALYS PH OF 6.5 5.0 - 8.0 06/24 Specimen Type : URINE [place] IS URINE BY /2021 No comment jessica bills. IS [facility] TEST STRIP Ordering Pro vider: JAYDE MENDOZA Report Released Date/Time: Jun 24, 2022 06:55 PM Reporting Lab: [facility] [place] [address] Performing Lab: [facility] [place] [address] URINALYS LEUKOCYTES 17 0 - 7 06/24 H Specimen Typ e: URINE [place] IS [#/AREA] /2021 No comment jessica bilsl. [facility] URINE Ordering Provi maria: JAYDE MENDOZA SEDIMENT Report Release d Date/Time: Jun 24, 2022 06:55 PM BY Reporting Lab: [facility] MICROSCOPY [facility] [address] HIGH POWER Performing L ab: [facility] FIELD [address]NG[address]Z [facility] [address] URINALYS BACTERIA NONE 06/24 Specimen Type: URINE [place] IS [PRESENCE] SEEN /2021 No comment en tered. IS [facility] IN URINE Ordering Provi maria: JAYDE MENDOZA SEDIMENT Report Release d Date/Time: Jun 24, 2022 06:55 PM BY LIGHT Reporting Lab: [facility] MICROSCOPY [facility] [address] Performing Lab: [facility] [address] DOM[address]NG[address]Z [facility] [address] URINALYS CALCIUM FEW 06/24 Specimen Type: URINE [place] IS OXALATE /2021 No comment enter ed. IS [facility] CRYSTALS Ordering Provi maria: JAYDE MENDOZA [PRESENCE] Report Relea sed Date/Time: Jun 24, 2022 06:55 PM IN URINE Reporting Lab: [facility] SEDIMENT [address] Kathya JONES [facility] [address] BY LIGHT Performing Lab : [facility] MICROSCOPY [facility] [address] URINALYS ERYTHROCYT >180 0 - 3 06/24 H Specimen Typ e: URINE [place] IS ES /2021 No comment enter ed. IS [facility] [#/AREA] Ordering Provi maria: JAYDE MENDOZA IN URINE Report Release d Date/Time: Jun 24, 2022 06:55 PM SEDIMENT Reporting Lab: [facility] BY [address]NG[address]Z [facility] [address] MICROSCOPY Performing L ab: [facility] HIGH POWER [facility] [address] FIELD URINALYS APPEARANCE TURBID 06/24 Specimen Typ e: URINE [place] IS OF URINE /2021 No comment ente red. IS [facility] Ordering Provid er: JAYDE MENDOZA Report Released Date/Time: Jun 24, 2022 06:55 PM Reporting Lab: [facility] [address] DOM[address]NG[address]Z [facility] [address] Performing Lab: [facility] ONE [facility] DOM[facility]Z [facility] [address] URINALYS EPITHELIAL NONE 06/24 Specimen Typ e: URINE [place] IS CELLS.SQUA SEEN /2021 No comment en tered. IS [facility] MOUS Ordering Provid er: JAYDE MENDOZA [#/AREA] Report Release d Date/Time: Jun 24, 2022 06:55 PM IN URINE Reporting Lab: [facility] SEDIMENT [address] Kathya JONES [facility] [address] BY Performing Lab: [facility] MICROSCOPY [address] [facility] [address] HIGH POWER FIELD URINALYS HEMOGLOBIN 3+ 06/24 Specimen Typ e: URINE [place] IS [PRESENCE] /2021 No comment en tered. IS [facility] IN URINE Ordering Provi maria: JAYDE MENDOZA W BY TEST Report Released Date/Time: Jun 24, 2022 06:55 PM STRIP Reporting Lab: [facility] [address] DOM[address]NGUEZ [facility] [address] Performing Lab: [facility] [address] DOM[address]NGUEZ [facility] [address] URINALYS NITRITE NEGATIVE 06/24 Specimen Type: URINE [place] IS [PRESENCE] /2021 No comment en tered. IS [facility] IN URINE Ordering Provi maria: JAYDE MENDOZA BY TEST Report Released Date/Time: Jun 24, 2022 06:55 PM STRIP Reporting Lab: [facility] [address] DOM[address]NGUEZ [facility] [address] Performing Lab: [facility] [address] DOM[address]NGUEZ [facility] [address] URINALYS LEUKOCYTE 25 06/24 Specimen Type : URINE [place] IS ESTERASE No comment jessica bills. IS [facility] [PRESENCE] Ordering Pro vider: JAYDE MENDOZA IN URINE Report Release d Date/Time: Jun 24, 2022 06:55 PM BY TEST Reporting Lab: [facility] [place] [address] Performing Lab: [facility] [address] DOM[address]NGUEZ [facility] [address] AST/SGOT ASPARTATE 19 <34 - 34 06/24 Specimen Typ e: PLASMA [place] AMINOTRANS /2021 No comment en tered. IS [facility] FERASE Ordering Provid er: JAYDE MENDOZA [ENZYMATIC Report Relea sed Date/Time: Jun 24, 2022 08:09 PM ACTIVITY/V Reporting La b: [facility] OLUME] IN [address] [facility] [address] SERUM OR Performing Lab : [facility] PLASMA [place] [address] POTASSIU POTASSIUM 4.9 3.5 - 5.1 06/24 Specimen Ty pe: PLASMA [place] M [MOLES/VOL /2021 No comment en tered. IS [facility] UME] IN Ordering Provid er: JAYDE MENDOZA SERUM OR Report Release d Date/Time: Jun 24, 2022 08:09 PM PLASMA Reporting Lab: [facility] [address] [place] [address] Performing Lab: [facility] [address] [place] [address] PROTEIN, PROTEIN 6.8 6.0 - 8.3 06/24 Specimen Type : PLASMA [place] TOTAL [MASS/VOLU /2021 No comment en tered. IS [facility] ME] IN Ordering Provid er: JAYDE MENDOZA SERUM OR Report Release d Date/Time: Jun 24, 2022 08:09 PM PLASMA Reporting Lab: [facility] [place] [address] Performing Lab: [facility] [address] [place] [address] PROTHROM INR IN 1.1 0.8 - 1.1 06/24 Specimen Type : PLASMA [place] BIN PLATELET /2021 No comment ente red. IS [facility] TIME/INR POOR Ordering Provi maria: JAYDE MENDOZA PLASMA BY Report Releas ed Date/Time: Jun 24, 2022 06:55 PM COAGULATIO Reporting La b: [facility] N [place] [address] Performing Lab: [facility] [address] [place] [address] PROTHROM PROTHROMBI 12.1 9.4 - 12.5 06/24 Specimen Type: PLASMA [place] BIN N TIME /2021 No comment enter ed. IS [facility] TIME/INR (PT) Ordering Provi maria: JAYDE MENDOZA W Report Released Date/Time: Jun 24, 2022 06:55 PM Reporting Lab: [facility] [address] [place] [address] Performing Lab: [facility] [place] [address] COVID-19 SARS-COV-2 Not 06/24 Specimen Typ e: NASOPHARYNGEAL [place] DIAGNOST (COVID-19) Detected /2021 Comment: Josue boo GeneXpert (618) [facility] IC PANEL RNA Ordering Provi maria: JAYDE MENDOZA (CEPHEID [PRESENCE] Report Rele ased Date/Time: Jun 24, 2022 06:55 PM ) IN Reporting Lab: [facility] RESPIRATOR [address] [facility] [address] Y SPECIMEN Performing L ab: [facility] [place] [address] WITH PROBE DETECTION COMPREHE CREATININE 1.3 0.7 - 1.2 08/08 H Specimen T ype: PLASMA [place] NSIVE [MASS/VOLU /2021 Comment: Can cellation reported to: Rajni Giraldo RN on 06/24/22@2003 by el. Test result cancelled due to hemolysis interference in sample. IS [facility] METABOLI ME] IN Ordering Provi maria: JAYDE MENDOZA C SERUM OR Report Release d Date/Time: Jun 24, 2022 06:55 PM PANEL+MG PLASMA Reporting Lab: [facility] [address] [place]NG[place]Z [facility] [address] Performing Lab: [facility] [address] [place]NG[place]Z [facility] [address] COMPREHE UREA 19 8 - 26 06/24 Specimen Type: PLASMA [place] NSIVE Comment: Cance llation reported to: Rajni Giraldo RN on 06/24/22@2003 by el. Test result cancelled due to hemolysis interference in sample. IS [facility] METABOLI [MASS/VOLU Ordering Pr ovider: JAYDE MENDOZA C ME] IN Report Released Date/Time: Jun 24, 2022 06:55 PM PANEL+MG SERUM OR Reporting Lab : [facility] PLASMA [place] [address] Performing Lab: [facility] [address] [place]NG[place]Z [facility] [address] COMPREHE GLUCOSE 111 74 - 100 08/08 H Specimen Type: PLASMA [place] NSIVE [MASS/VOLU /2021 Comment: Can cellation reported to: Rajni Giraldo RN on 06/24/22 by el. Test result cancelled due to hemolysis interference in sample. IS [facility] METABOLI ME] IN Ordering Provi maria: JAYDE MENDOZA C SERUM OR Report Release d Date/Time: Jun 24, 2022 06:55 PM PANEL+MG PLASMA Reporting Lab: [facility] [address] [place] [facility] [address] Performing Lab: [facility] [place] [address] COMPREHE SODIUM 133 136 - 145 06/24 L Specimen Type : PLASMA [place] NSIVE [MOLE/VOL Comment: Can cellation reported to: Rajni Giraldo RN on 06/24/22@2003 by el. Test result cancelled due to hemolysis interference in sample. [facility] METABOLI UME] IN Ordering Provi maria: KELLY,JAYDE W C SERUM OR Report Release d Date/Time: Jun 24, 2022 06:55 PM PANEL+MG PLASMA Reporting Lab: [facility] [address] [place]Z [facility] [address] Performing Lab: [facility] [address] [facility] [address] COMPREHE POTASSIUM canc 3.5 - 5.1 06/24 Specimen Ty pe: PLASMA [place] NSIVE [/VOL Comment: Can cellation reported to: Rajni Giraldo RN on 06/24/22 by el. Test result cancelled due to hemolysis interference in sample. [facility] METABOLI UME] IN Ordering Provi maria: KELLY,JAYDE W C SERUM OR Report Release d Date/Time: Jun 24, 2022 06:55 PM PANEL+MG PLASMA Reporting Lab: [facility] [address] [place] [facility] [address] Performing Lab: [facility] [address] [facility] [address] COMPREHE CHLORIDE 103 98 - 107 06/24 Specimen Type : PLASMA [place] NSIVE [MOLE/ Comment: Can cellation reported to: Rajni Giraldo RN on 06/24/22 by el. Test result cancelled due to hemolysis interference in sample. [facility] METABOLI UME] IN Ordering Provi maria: KELLY,JAYDE W C SERUM OR Report Release d Date/Time: Jun 24, 2022 06:55 PM PANEL+MG PLASMA Reporting Lab: [facility] [address] [place] [facility] [address] Performing Lab: [facility] [address] [place] [facility] [address] COMPREHE CARBON 22 - 06/24 Specimen Type: PLASMA [place] NSIVE Comment: Cance llation reported to: Rajni Giraldo RN on 06/24/22 by el. Test result cancelled due to hemolysis interference in sample. IS [facility] TOTAL Ordering Provi maria: JAYDE MENDOZA C [MOLES/VOL Report Relea sed Date/Time: Jun 24, 2022 06:55 PM PANEL+MG UME] IN Reporting Lab: [facility] [place] [address] PLASMA Performing Lab: [facility] [address] [facility] [address] COMPREHE CALCIUM 9.4 8.4 - 10.2 06/24 Specimen Typ e: PLASMA [place] NSIVE [MASS/VOLU /2021 Comment: Can cellation reported to: Rajni Giraldo RN on 06/24/22@2003 by el. Test result cancelled due to hemolysis interference in sample. IS [facility] MET[facility] ME] IN Ordering Provi maria: JAYDE MENDOZA SERUM OR Report Release d Date/Time: Jun 24, 2022 06:55 PM PANEL+MG PLASMA Reporting Lab: [facility] [address] [facility] [address] Performing Lab: [facility] [address] [facility] [address] COMPREHE PROTEIN canc 6.0 - 8.3 06/24 Specimen Type : PLASMA [place] NSIVE [MASS/VOLU /2021 Comment: Can cellation reported to: Rajni Giraldo RN on 06/24/22@2003 by el. Test result cancelled due to hemolysis interference in sample. IS [facility] ME] IN Ordering Provi maria: JAYDE MENDOZA SERUM OR Report Release d Date/Time: Jun 24, 2022 06:55 PM PANEL+MG PLASMA Reporting Lab: [facility] [address] [facility] [address] Performing Lab: [facility] [address] [facility] [address] COMPREHE ALBUMIN 3.9 3.5 - 5.2 06/24 Specimen Type : PLASMA [place] NSIVE [MASS/VOLU /2021 Comment: Can cellation reported to: Rajni Giraldo RN on 06/24/22@2003 by el. Test result cancelled due to hemolysis interference in sample. [facility] METABOLI ME] IN Ordering Provi maria: JAYDE MENDOZA W C SERUM OR Report Release d Date/Time: Jun 24, 2022 06:55 PM PANEL+MG PLASMA Reporting Lab: [facility] [address] Performing Lab: [facility] [address] [facility] [address] COMPREHE BILIRUBIN. 0.2 0.2 - 1.2 06/24 Specimen T ype: PLASMA [place] NSIVE TOTAL /2021 Comment: Cancel lation reported to: Rajni Giraldo RN on 06/24/22@2003 by el. Test result cancelled due to hemolysis interference in sample. [facility] [MASS/VOLU Ordering Pr ovider: JAYDE MENDOZA ME] IN Report Released Date/Time: Jun 24, 2022 06:55 PM PANEL+MG SERUM OR Reporting Lab : [facility] PLASMA [address] [facility] [address] Performing Lab: [facility] [address] [facility] [address] COMPREHE MAGNESIUM 2.3 1.6 - 2.6 06/24 Specimen Ty pe: PLASMA [place] NSIVE [MASS/VOLU /2021 Comment: Can cellation reported to: Rajni Giraldo RN on 06/24/22@2003 by el. Test result cancelled due to hemolysis interference in sample. [facility] [place] ME] IN Ordering Provi maria: JAYDE MENDOZA SERUM OR Report Release d Date/Time: Jun 24, 2022 06:55 PM PANEL+MG PLASMA Reporting Lab: [facility] [address] [facility] [address] Performing Lab: [facility] [address] [facility] [address] COMPREHE ANION GAP 8 5 - 15 06/24 Specimen Type : PLASMA [place] NSIVE IN SERUM /2021 Comment: Cance llation reported to: Rajni Giraldo RN on 06/24/22@2003 by el. Test result cancelled due to hemolysis interference in sample. [facility] OR PLASMA Ordering Pro vider: JAYDE MENDOZA Report Released Date/Time: Jun 24, 2022 06:55 PM PANEL+MG Reporting Lab: [facility] [address] [facility] [address] Performing Lab: [facility] [address] [facility] [address] COMPREHE ALKALINE 56 40 - 150 06/24 Specimen Type : PLASMA [place] NSIVE PHOSPHATAS /2021 Comment: Can cellation reported to: Rajni Giraldo RN on 06/24/22@2003 by el. Test result cancelled due to hemolysis interference in sample. [facility] E Ordering Provi maria: JAYDE MENDOZA [ENZYMATIC Report Relea sed Date/Time: Jun 24, 2022 06:55 PM PANEL+MG ACTIVITY/V Reporting L ab: [facility] OLUME] IN [facility] [address] SERUM OR Performing Lab : [facility] PLASMA [address] [facility] [address] COMPREHE ALANINE 20 <55 - 55 06/24 Specimen Type: PLASMA [place] NSIVE AMINOTRANS /2021 Comment: Can cellation reported to: Rajni Giraldo RN on 06/24/22 by el. Test result cancelled due to hemolysis interference in sample. [facility] FERASE Ordering Provi maria: JAYDE MENDOZA [ENZYMATIC Report Relea sed Date/Time: Jun 24, 2022 06:55 PM PANEL+MG ACTIVITY/V Reporting L ab: [facility] OLUME] IN [facility] [address] SERUM OR Performing Lab : [facility] PLASMA [address] [facility] [address] COMPREHE ASPARTATE canc <34 - 34 06/24 Specimen Typ e: PLASMA [place] NSIVE AMINOTRANS Comment: Can cellation reported to: Rajni Giraldo RN on 06/24/22 by el. Test result cancelled due to hemolysis interference in sample. [facility] FERASE Ordering Provi maria: JAYDE MENDOZA [ENZYMATIC Report Relea sed Date/Time: Jun 24, 2022 06:55 PM PANEL+MG ACTIVITY/V Reporting L ab: [facility] HCS OLUME] IN [facility] [address] SERUM OR Performing Lab : [facility] PLASMA [address] [facility] [address] COMPREHE GLOMERULAR 58 60 06/24 L Specimen Typ e: PLASMA [place] NSIVE FILTRATION Comment: Can cellation reported to: Rajni Giraldo RN on 06/24/22 by el. Test result cancelled due to hemolysis interference in sample. [facility] RATE/1.73 Ordering Pro vider: JAYDE MENDOZA SQ Report Released Date/Time: Jun 24, 2022 06:55 PM PANEL+MG M.PREDICTE Reporting L ab: [facility] D [VOLUME [facility] [address] RATE/AREA] Performing L ab: [facility] IN SERUM, [facility] [address] PLASMA OR BLOOD BY CREATININE -BASED FORMULA (CKD-EPI) CBC & LEUKOCYTES 9.67 4.0 - 11.0 06/24 Specimen T ype: BLOOD [place] DIFF [#/VOLUME] /2021 Comment: Clu mped Platelets. Invitro artefact. No clinical significance. Platelet count may be higher than stated value. Plt count = 214 K-cmm Manual Differential Performed [facility] IN BLOOD Ordering Provi maria: JAYDE MENDOZA BY Report Released Date/Time: Jun 24, 2022 06:55 PM AUTOMATED Reporting Lab : [facility] [place] [address] Performing Lab: [facility] [place] [address] CBC & ERYTHROCYT 3.36 4.6 - 6.2 06/24 L Specimen Ty pe: BLOOD [place] DIFF ES /2021 Comment: Clumpe d Platelets. Invitro artefact. No clinical significance. Platelet count may be higher than stated value. Plt count = 214 K- cmm Manual Differential Performed [facility] [#/VOLUME] Ordering Pro vider: JAYDE MENDOZA IN BLOOD Report Release d Date/Time: Jun 24, 2022 06:55 PM BY Reporting Lab: [facility] AUTOMATED [facility] [address] COUNT Performing Lab: [facility] [place] [address] CBC & HEMOGLOBIN 12.0 13.5 - 06/24 L Specimen Type : BLOOD [place] DIFF [MASS/VOLU 17.9 /2021 Comment: Clu mped Platelets. Invitro artefact. No clinical significance. Platelet count may be higher than stated value. Plt count = 214 K-cmm Manual Differential Performed [facility] ME] IN Ordering Provid er: JAYDE MENDOZA BLOOD Report Released Date/Time: Jun 24, 2022 06:55 PM Reporting Lab: [facility] [place] [address] Performing Lab: [facility] [place] [address] CBC & HEMATOCRIT 35.9 41 - 54 08/08 L Specimen Type : BLOOD [place] DIFF [VOLUME /2021 Comment: Clumpe d Platelets. Invitro artefact. No clinical significance. Platelet count may be higher than stated value. Plt count = 214 K-cmm Manual Differential Performed [facility] FRACTION] Ordering Prov ider: JAYDE MENDOZA OF BLOOD Report Release d Date/Time: Jun 24, 2022 06:55 PM BY Reporting Lab: [facility] AUTOMATED [address] [facility] [address] COUNT Performing Lab: [facility] [place] [address] CBC & MCV 106.8 80 - 100 08/08 H Specimen Type: BLOOD [place] DIFF [ENTITIC /2021 Comment: Clump ed Platelets. Invitro artefact. No clinical significance. Platelet count may be higher than stated value. Plt count = 214 K-cmm Manual Differential Performed [facility] VOLUME] BY Ordering Pro vider: JAYDE MENDOZA AUTOMATED Report Releas ed Date/Time: Jun 24, 2022 06:55 PM COUNT Reporting Lab: [facility] [place] [address] Performing Lab: [facility] [address] [place] [address] CBC & MCH 35.7 27 - 33 / H Specimen Type: B LOOD [place] DIFF [ENTITIC /2021 Comment: Clump ed Platelets. Invitro artefact. No clinical significance. Platelet count may be higher than stated value. Plt count = 214 K-cmm Manual Differential Performed [facility] MASS] BY Ordering Provi maria: JAYDE MENDOZA AUTOMATED Report Releas ed Date/Time: Jun 24, 2022 06:55 PM COUNT Reporting Lab: [facility] [address] [place] [address] Performing Lab: [facility] [place] [address] CBC & MCHC 33.4 32.0 - 0808 Specimen Type: B LOOD [place] DIFF [MASS/VOLU 37.5 /2021 Comment: Clu mped Platelets. Invitro artefact. No clinical significance. Platelet count may be higher than stated value. Plt count = 214 K-cmm Manual Differential Performed [facility] ME] BY Ordering Provid er: JAYDE MENDOZA AUTOMATED Report Releas ed Date/Time: Jun 24, 2022 06:55 PM COUNT Reporting Lab: [facility] [address] [place] [address] Performing Lab: [facility] [address] [place] [address] CBC & PLATELETS comment 06/24 Specimen Type: BLOOD [place] DIFF [#/VOLUME] /2021 Comment: Clu mped Platelets. Invitro artefact. No clinical significance. Platelet count may be higher than stated value. Plt count = 214 K-cmm Manual Differential Performed [facility] IN BLOOD Ordering Provi maria: JAYDE MENDOZA BY Report Released Date/Time: Jun 24, 2022 06:55 PM AUTOMATED Reporting Lab : [facility] COUNT [address] [place] [address] Performing Lab: [facility] [address] [place] [address] CBC & PLATELET canc 06/24 Specimen Type: BLOOD [place] DIFF MEAN /2021 Comment: Clumpe d Platelets. Invitro artefact. No clinical significance. Platelet count may be higher than stated value. Plt count = 214 K- cmm Manual Differential Performed [facility] VOLUME Ordering Provid er: JAYDE MENDOZA [ENTITIC Report Release d Date/Time: Jun 24, 2022 06:55 PM VOLUME] IN Reporting La b: [facility] [place] [address] AUTOMATED Performing La b: [facility] COUNT [address] [place] [address] CBC & NEUTROPHIL 70.7 06/24 Specimen Type : BLOOD [place] DIFF S/100 /2021 Comment: Clumpe d Platelets. Invitro artefact. No clinical significance. Platelet count may be higher than stated value. Plt count = 214 K- cmm Manual Differential Performed [facility] LEUKOCYTES Ordering Pro vider: JAYDE MENDOZA IN BLOOD Report Release d Date/Time: Jun 24, 2022 06:55 PM BY MANUAL Reporting Lab : [facility] COUNT [address] [place] [address] Performing Lab: [facility] [address] [place] [address] CBC & LYMPHOCYTE 16.7 06/24 Specimen Type : BLOOD [place] DIFF S/100 /2021 Comment: Clumpe d Platelets. Invitro artefact. No clinical significance. Platelet count may be higher than stated value. Plt count = 214 K- cmm Manual Differential Performed [facility] LEUKOCYTES Ordering Pro vider: JAYDE MENDOZA IN BLOOD Report Release d Date/Time: Jun 24, 2022 06:55 PM BY MANUAL Reporting Lab : [facility] [place] [address] Performing Lab: [facility] [place] [address] CBC & ERYTHROCYT 14.0 11.5 - 06/24 Specimen Type : BLOOD [place] DIFF E 14. Comment: Clumpe d Platelets. Invitro artefact. No clinical significance. Platelet count may be higher than stated value. Plt count = 214 K- cmm Manual Differential Performed [facility] DISTRIBUTI Ordering Pro vider: JAYDE MENDOZA ON WIDTH Report Release d Date/Time: Jun 24, 2022 06:55 PM [RATIO] BY Reporting La b: [facility] AUTOMATED [facility] [address] COUNT Performing Lab: [facility] [address] [facility] [address] CBC & MONOCYTES/ 9.6 06/24 Specimen Type : BLOOD [place] DIFF Comment: Clumpe d Platelets. Invitro artefact. No clinical significance. Platelet count may be higher than stated value. Plt count = 214 K- cmm Manual Differential Performed [facility] LEUKOCYTES Ordering Pro vider: JAYDE MENDOZA IN BLOOD Report Release d Date/Time: Jun 24, 2022 06:55 PM BY Reporting Lab: [facility] AUTOMATED [facility] [address] COUNT Performing Lab: [facility] [address] [facility] [address] CBC & EOSINOPHIL 1.5 06/24 Specimen Type : BLOOD [place] DIFF S/ Comment: Clumpe d Platelets. Invitro artefact. No clinical significance. Platelet count may be higher than stated value. Plt count = 214 K- cmm Manual Differential Performed [facility] LEUKOCYTES Ordering Pro vider: JAYDE MENDOZA IN BLOOD Report Release d Date/Time: Jun 24, 2022 06:55 PM BY Reporting Lab: [facility] AUTOMATED [facility] [address] COUNT Performing Lab: [facility] [address] [facility] [address] CBC & METAMYELOC 1.0 06/24 Specimen Type : BLOOD [place] DIFF YTES/ Comment: Clump ed Platelets. Invitro artefact. No clinical significance. Platelet count may be higher than stated value. Plt count = 214 K-cmm Manual Differential Performed [facility] LEUKOCYTES Ordering Pro vider: KELLY,JAYDE W IN BLOOD Report Release d Date/Time: Jun 24, 2022 06:55 PM BY MANUAL Reporting Lab : [facility] [place] [address] Performing Lab: [facility] [place] [address] CBC & MYELOCYTES 0.5 06/24 Specimen Type : BLOOD [place] DIFF / Comment: Clumpe d Platelets. Invitro artefact. No clinical significance. Platelet count may be higher than stated value. Plt count = 214 K- cmm Manual Differential Performed [facility] LEUKOCYTES Ordering Pro vider: JAYDE MENDOZA W IN BLOOD Report Release d Date/Time: Jun 24, 2022 06:55 PM BY MANUAL Reporting Lab : [facility] [place] [address] Performing Lab: [facility] [place] [address] CBC & NORMOCHROM YES 06/24 Specimen Type : BLOOD [place] DIFF IC Comment: Clumpe d Platelets. Invitro artefact. No clinical significance. Platelet count may be higher than stated value. Plt count = 214 K- cmm Manual Differential Performed [facility] [[place]] Ordering Pro vider: JAYDE MENDOZA W IN BLOOD Report Release d Date/Time: Jun 24, 2022 06:55 PM BY LIGHT Reporting Lab: [facility] MICROSCOPY [address] [facility] [address] Performing Lab: [facility] [address] [facility] [address] CBC & MACROCYTES SLIGHT 06/24 Specimen Type : BLOOD [place] DIFF [[place]] /2021 Comment: Clu mped Platelets. Invitro artefact. No clinical significance. Platelet count may be higher than stated value. Plt count = 214 K-cmm Manual Differential Performed [facility] IN BLOOD Ordering Provi maria: JAYDE MEDNOZA W BY LIGHT Report Release d Date/Time: Jun 24, 2022 06:55 PM MICROSCOPY Reporting La b: [facility] [address] [facility] [address] Performing Lab: [facility] [place] [address] CBC & LYMPHOCYTE 1.61 1.0 - 4.0 06/24 Specimen Ty pe: BLOOD [place] DIFF S /2021 Comment: Clumpe d Platelets. Invitro artefact. No clinical significance. Platelet count may be higher than stated value. Plt count = 214 K- cmm Manual Differential Performed [facility] [#/VOLUME] Ordering Pro vider: JAYDE MENDOZA W IN BLOOD Report Release d Date/Time: Jun 24, 2022 06:55 PM BY Reporting Lab: [facility] AUTOMATED [facility] [address] COUNT Performing Lab: [facility] [address] [facility] [address] CBC & MONOCYTES 0.93 0.1 - 1.0 06/24 Specimen Typ e: BLOOD [place] DIFF [#/VOLUME] /2021 Comment: Clu mped Platelets. Invitro artefact. No clinical significance. Platelet count may be higher than stated value. Plt count = 214 K-cmm Manual Differential Performed [facility] IN BLOOD Ordering Provi maria: JAYDE MENDOZA BY Report Released Date/Time: Jun 24, 2022 06:55 PM AUTOMATED Reporting Lab : [facility] COUNT [address] [facility] [address] Performing Lab: [facility] [address] [facility] [address] CBC & NEUTROPHIL 6.84 2.0 - 7.7 06/24 Specimen Ty pe: BLOOD [place] DIFF S /2021 Comment: Clumpe d Platelets. Invitro artefact. No clinical significance. Platelet count may be higher than stated value. Plt count = 214 K- cmm Manual Differential Performed [facility] [#/VOLUME] Ordering Pro vider: JAYDE MENDOZA W IN BLOOD Report Release d Date/Time: Jun 24, 2022 06:55 PM BY Reporting Lab: [facility] AUTOMATED [facility] [address] COUNT Performing Lab: [facility] [address] [facility] [address] CBC & EOSINOPHIL 0.15 0 - 0.5 06/24 Specimen Type : BLOOD [place] DIFF S /2021 Comment: Clumpe d Platelets. Invitro artefact. No clinical significance. Platelet count may be higher than stated value. Plt count = 214 K- cmm Manual Differential Performed [facility] [#/VOLUME] Ordering Pro vider: JAYDE MENDOZA W IN BLOOD Report Release d Date/Time: Jun 24, 2022 06:55 PM BY Reporting Lab: [facility] [place]OMATED [place] [address] COUNT Performing Lab: [facility] [address] [place] [address] CBC & METAMYELOC 0.10 06/24 Specimen Type : BLOOD [place] DIFF YTES /2021 Comment: Clumpe d Platelets. Invitro artefact. No clinical significance. Platelet count may be higher than stated value. Plt count = 214 K- cmm Manual Differential Performed [facility] [#/VOLUME] Ordering Pro vider: JAYDE MENDOZA W IN BLOOD Report Release d Date/Time: Jun 24, 2022 06:55 PM BY MANUAL Reporting Lab : [facility] COUNT [address] [place] [address] Performing Lab: [facility] [address] [place] [address] CBC & MYELOCYTES 0.05 06/24 Specimen Type : BLOOD [place] DIFF [#/VOLUME] /2021 Comment: Clu mped Platelets. Invitro artefact. No clinical significance. Platelet count may be higher than stated value. Plt count = 214 K-cmm Manual Differential Performed [facility] IN BLOOD Ordering Provi maria: JAYDE MENDOZA BY MANUAL Report Releas ed Date/Time: Jun 24, 2022 06:55 PM COUNT Reporting Lab: [facility] [address] [place] [address] Performing Lab: [facility] [address] [place] [address] CBC & PLATELETS canc 06/24 Specimen Type: BLOOD [place] DIFF RETICULATE /2021 Comment: Clu mped Platelets. Invitro artefact. No clinical significance. Platelet count may be higher than stated value. Plt count = 214 K-cmm Manual Differential Performed [facility] D/100 Ordering Provid er: JAYDE MENDOZA PLATELETS Report Releas ed Date/Time: Jun 24, 2022 06:55 PM IN BLOOD Reporting Lab: [facility] BY [address] [place] [address] AUTOMATED Performing La b: [facility] [address] [place] [address] CBC & ERYTHROCYT PRESENT 06/24 Specimen Type : BLOOD [place] DIFF E /2 Comment: Clumpe d Platelets. Invitro artefact. No clinical significance. Platelet count may be higher than stated value. Plt count = 214 K- cmm Manual Differential Performed [facility] MORPHOLOGY Ordering Pro vider: JAYDE MENDOZA FINDING Report Released Date/Time: Jun 24, 2022 06:55 PM [IDENTIFIE Reporting La b: [facility] R] [place] [address] BLOOD Performing Lab: [facility] [place] [address] Vital Signs Combined list of inpatient and outpatient Vital Signs from Department of Defense and Veterans Affairs, ranging from 12 months to all on record, depending upon the facility. Vital Sign Value Date Comments Source SYSTOLIC BLOOD PRESSURE 108 07/19/2022 08:33:25 [facility] DIASTOLIC BLOOD PRESSURE 64 07/19/2022 08:33:25 [facility] PULSE OXIMETRY 94% 07/19/2022 08:33:25 [place] [facility] WEIGHT 121 07/19/2022 08:33:25 [place] [facility] BMI 22kg/m2 07/19/2022 08:33:25 [place] [facility] PAIN 6 07/19/2022 08:33:25 [place] [facility] TEMPERATURE 97 07/19/2022 08:33:25 [place] [facility] PULSE 55 07/19/2022 08:33:25 [place] [facility] RESPIRATION 20 07/19/2022 08:33:25 [place] [facility] PAIN 6 06/26/2022 03:48:19 [place] [facility] SYSTOLIC BLOOD PRESSURE 132 06/25/2022 01:05:00 [facility] DIASTOLIC BLOOD PRESSURE 85 06/25/2022 01:05:00 [facility] PULSE OXIMETRY 94% 06/25/2022 01:05:00 [place] [facility] TEMPERATURE 98.2 06/25/2022 01:05:00 [place] [facility] PULSE 59 06/25/2022 01:05:00 [place] [facility] SYSTOLIC BLOOD PRESSURE 99 06/24/2022 18:00:00 [facility] DIASTOLIC BLOOD PRESSURE 64 06/24/2022 18:00:00 [facility] PAIN 8 06/24/2022 18:00:00 [place] [facility] TEMPERATURE 97.5 06/24/2022 18:00:00 [place] [facility] PULSE 69 06/24/2022 18:00:00 [place] [facility] RESPIRATION 15 06/24/2022 18:00:00 [place] [facility] [facility] SYSTOLIC BLOOD PRESSURE 120 05/15/2022 12:50:41 [place] [facility] DIASTOLIC BLOOD PRESSURE 77 05/15/2022 12:50:41 [place] [facility] PULSE OXIMETRY 94% 05/15/2022 12:50:41 [place] [facility] [facility] WEIGHT 123.9 05/15/2022 12:50:41 [place] [facility] [facility] BMI 23kg/m2 05/15/2022 12:50:41 [place] [facility] [facility] PAIN 0 05/15/2022 12:50:41 [place] [facility] [facility] HEIGHT 61.811 05/15/2022 12:50:41 [place] [facility] [facility] TEMPERATURE 99 05/15/2022 12:50:41 [place] [facility] [facility] PULSE 63 05/15/2022 12:50:41 [place] [facility] [facility] RESPIRATION 16 05/15/2022 12:50:41 [place] [facility] Encounters Combined list [...] Number For Provider Date Date Visit ADM 40871-0 Diagnos JHONNY 01/31 [place] SARSCOV2 [id number] is: ,LAUREN /2020 [facility] 30MCG/0.3M ICD-10- M HCS L 2ND CM Z23 Encount er for immuniz ation<b r/>with Provide r Comment s: Encount er for Immuniz ation Outpatient [id number] 03/19 [place] [id number] [facility] [id number] Diagnos [place],JE 03/20 [place] MOD [id number] is: RRY A [facility] 30-39 MIN ICD-10- HCS CM L40.50 Arthrop athic psorias is, unspeci fied
with Provide r Comment s: Psoriat ic arthrit is OFFICE O/P Diagnos [place],NANCY 06/01 [place] EST MOD [id number] is: RRY A [facility] 30-39 MIN ICD-10- HCS CM M06.9 Rheumat oid arthrit is, unspeci fied
with Provide r Comment s: Seropos itive rheumat oid arthrit is ([facility] [id number]) Outpatient [id number] [place] Encounter [id number] 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 [id number]) Outpatient Yasmeen CHASE 06/13 [place] Encounter [id number] ERR [facility] OFFICE O/P Diagnos NANCY PERRY 06/19 [place] EST MOD [id number] is: RRY [facility] 30-39 MIN ICD-10- HCS CM M06.9 Rheumat oid arthrit is, unspeci fied
with Provide r Comment s: Seropos itive rheumat oid arthrit is ([facility] [id number] 05) Outpatient 46043-506/19 [place] Encounter [id number] /2021 [facility] O/P Diagnos LI,R 07/11 [place] EST MOD [id number] is: H[place]EN [facility] 30-39 MIN ICD-10- HCS CM H25.13 Age-rel ated nuclear catarac t, bilater al
with Provide r Comment s: Age-rel ated nuclear catarac t, bilater al Outpatient 26593-007/31 [place] Encounter [id number] /2020 [facility] OFFICE O/P 61004-2.61 Diagnos ORLANDO,JE 09/28 [place] EST MOD [id number] is: RRY A [facility] 30-39 MIN ICD-10- HCS CM M06.9 Rheumat oid arthrit is, unspeci fied
with Provide r Comment s: Seropos itive rheumat oid arthrit is ([facility] [id number] 05) ADM 65901-6.61 Diagnos HUDLOW,TRISTON 09/28 [place] SARSCOV2 [id number] is: ECCA M [facility] 30MCG/0.3M ICD-10- HCS L BST CM Z23 Encount er for immuniz ation<b r/>with Provide r Comment s: Encount er for Immuniz ation Outpatient 27889-6.61 11/17 [place] Encounter [id number] /2021 [facility] Outpatient 66993-9.61 11/20 [place] Encounter [id number] /2021 [facility] Outpatient 14273-3.61 11/20 [place] Encounter [id number] /2021 [facility] Outpatient 27579-9.61 Yasmeen CHASE 11/20 [place] Encounter [id number] ERRY /2021 [facility] Outpatient 22803-6.61 12/06 [place] Encounter [id number] /2021 [facility] EMERGENCY 88601-7.61 Diagnos 01/07 [place] DEPT VISIT [id number] is: /2021 [facility] ICD-10- HCS CM K02.9 Dental caries, unspeci fied
with Provide r Comment s: Dental Caries, unspeci fied OFFICE O/P 74540-5.61 Diagnos [place],JE 01/11 [place] EST MOD [id number] is: RRY A [facility] 30-39 MIN ICD-10- HCS CM M06.9 Rheumat oid arthrit is, unspeci fied
with Provide r Comment s: Seropos itive rheumat oid arthrit is ([facility] [id number] 05) Outpatient 65268-3.61 02/17 [place] En[place] [id number] [facility] 87792-2.61 CHRISTLE,T 02/17 [place] Encounter [id number] ERR [facility] Outpatient 27589-2.61 CHRISTLE,T 02/18 [place] Encounter [id number] ERR [facility] Outpatient 29122-9.61 02/21 [place] Encounter [id number] [facility] 78948-2.61 02/26 [place] Encounter [id number] [facility] OFFICE O/P 12937-4.61 Diagnos CAROLYN03/05 [place] EST LOW [id number] [facility] ICD-10- HCS CM I47.1 Suprave ntricul ar tachyca rdia
with Provide r Comment s: Multifo sergio atrial tachyca rdia (SNOMED CT 9206677 0) ECG 51753-2.61 Diagnos CAROLYN,03/12 [place] MONIT/REPR [id number] is: [facility] T UP TO 48 ICD-10- [facility] HRS CM Z13.6 Encount er for screeni ng for cardiov ascular disorde rs
with Provide r Comment s: Encount er for Screeni ng for Cardiov ascular Disorde rs Outpatient 57860-5.61 / [place] En[place] [id number] [facility] 81548-5.61 / [place] Encounter [id number] /2022 [facility] Out[facility] 02601-7.61 CHRIST,T 03/19 [place] Encounter [id number] ERR [facility] Outpatient 06198-5.61 05/10 [place] En[place] [id number] [facility] 86013-7.61 05/10 [place] Encounter [id number] [facility] 85198-5.61 05/10 [place] Encounter [id number] [facility] EXT Diagnos NATO SWANSON 04/04 [place] ECG>7D<15D [id number] is: EY A [facility] RECORDING ICD-10- HCS CM I48.92 Unspeci fied atrial flutter
Provide r Comment s: Unspeci fied Atrial Flutter Outpatient 04/04 [place] Encounter [id number] [facility] ELECTROCAR Diagnos LAUREN,SE 04/10 [place] DIOGRAM [id number] is: LMA D [facility] COMPLETE ICD-10- HCS CM Z13.6 Encount er for screeni ng for cardiov ascular disorde rs
with Provide r Comment s: Encount er for Screeni ng for Cardiov ascular Disorde rs OFFICE Diagnos AB MARCELL 04/10 [place] CONSULTATI [id number] is: BIE L [facility] ON ICD-10- HCS CM I47.1 Suprave ntricul ar tachyca rdia
with Provide r Comment s: Multifo sergio atrial tachyca rdia (SCT [id number] 0) Outpatient 04351-904/10 [place] Encounter [id number] [facility]/P Diagnos MARYELLEN LEON 04/12 [place] EST SF [id number] is: H [facility] 10-19 MIN ICD-10- HCS CM I48.0 Paroxys mal atrial fibrill ation<b r/>with Provide r Comment s: Paroxys mal atrial fibrill ation (SCT [id number] 02) QNHP OL Diagnos MARCI PHAM 04/23 [place] DIG 8.85552803 is: ISTIN Y [facility] ASSMT&MGMT ICD-10- HCS 21+ CM Z79.01 care home (curren t) use of anticoa gulants
Provide r Comment s: terminal operator (curren t) [place] [address]-9.61 Diagnos MARCI PHAM 04/24 [place] DIG 8.69644870 is: ISTIN Y /2021 [facility] ASSMT&MGMT ICD-10- HCS 11-20 CM Z79.01 care home (curren t) use of anticoa gulants
wi th Provide r Comment s: care home (curren t) use of anticoa gulants HC PRO 76426-7.61 Diagnos PATRICE ARCOS 05/01 [place] PHONE CALL [id number] is: NA P /2021 [facility] 11-20 MIN ICD-10- HCS CM Z71.89 Other specifi ed crisis counselor ing<br/ >with Provide r Comment s: Other specifi ed Materials Buyer ing Outpatient 03214-3.61 05/03 [place] Encounter [id number] /2021 [facility] Outpatient 91860-7.61 05/03 [place] Encounter [id number] /2021 [facility] COLONOSCOP 64445-4.61 Diagnos REININK,AN 05/07 [place] Y AND [id number] is: VINCE R /2021 [facility] BIOPSY ICD-10- HCS CM K64.8 Other hemorrh oids
with Provide r Comment s: Other Hemorrh oids Outpatient 53172-0.61 05/07 [place] Encounter [id number] /2021 [facility] Out[facility] 67412-7.61 ASLMAYELA BLANCHARD 05/08 [place] Encounter [id number] Z L [facility] Outpatient 54694-2.61 05/09 [place] Encounter [id number] /2021 [facility] Outpatient 47865-2.61 05/15 [place] Encounter [id number] /2021 [facility] Outpatient 46072-5.61 05/15 [place] Encounter [id number] /2021 [facility] ELECTROCAR 67081-1.61 Diagnos FLORTOM,CELESTE 05/15 [place] DIOGRAM [id number] is: REL /2021 [facility] COMPLETE ICD-10- HCS CM Z13.6 Encount er for screeni ng for cardiov ascular disorde rs
with Provide r Comment s: Encount er for Screeni ng for Cardiov ascular Disorde rs HEMOGLOBIN 57811-7.61 Diagnos ILIANA, 05/15 [place] [id number] is: OBI K [facility] ICD-10- [facility] CM I48.0 Paroxys mal atrial fibrill ation<b r/>with Provide r Comment s: Paroxys mal atrial fibrill ation (SCT [id number] 02) OFFICE O/P 50289-8 Diagnos MARCELL,AB 05/15 [place] EST MOD [id number] is: BIE L [facility] 30-39 MIN ICD-10- [facility] CM I47.1 Suprave ntricul ar tachyca rdia
with Provide r Comment s: Multifo sergio atrial tachyca rdia (SCT [id number] 0) Outpatient 68414-4 MIGUEL ÁNGEL 06/01 [place] Encounter [id number] ERICKSON RODRIGUEZ [facility] JOHNY [facility] Outpatient 09147-1.61 06/18 [place] Encounter [id number] /2021 [facility] Outpatient 52840-561 SA VU 06/19 [place] Encounter [id number] RA R [facility] Outpatient 75035-0.61 06/21 [place] Encounter [id number] /2021 [facility] Outpatient 46558-461 SYSTEM,CIS 06/24 [place] Encounter [id number] -ARK [facility] Outpatient 94562-461 SYSTEM,CIS 06/24 [place] Encounter [id number] -ARK [facility] EMERGENCY 31968-4 Diagnos KELLYJANNETTENina 06/24 [place] DEPT VISIT [id number] is: D W [facility] ICD-10- [facility] CM R62.7 Adult failure to thrive< br/>wit h Provide r Comment s: Adult Failure to Thrive Outpatient 73229-661 06/24 [place] Encounter [id number] /2021 [facility] Inpatient 38430-6.61 Admit LISA HILLS 06/24 06/26 [place] Encounter [id number] Reason: SEIN ISSAK /2021 [facility] REC DC [facility]<b r/> Inpatient 68601-1.61 SYSTEM,CIS 06/24 06/24 [place] Encounter [id number] -ARK /2021 [facility] Inpatient 30585-2.61 SYSTEM,CIS 06/25 06/25 [place] Encounter [id number] -ARK /2021 [facility] Inpatient 52528-1.61 06/25 06/25 [place] Encounter [id number] /2021 [facility] Inpatient 43517-1.61 06/25 06/25 [place] Encounter [id number] /2021 [facility] Inpatient 63988-0.61 SYSTEM,CIS 06/25 06/25 [place] Encounter [id number] -ARK /2021 [facility] Inpatient 38029-5.61 06/25 06/25 [place] Encounter [id number] /2021 [facility] [place] [address]-3.61 Diagnos ALFREDO MCDANIEL 06/25 06/25 [place] 30 MINUTES [id number] is: VIA G /2021 [facility] ICD-10- HCS CM F10.20 Alcohol depende nce, uncompl icated< br/>wit h Provide r Comment s: Alcohol depende nce, uncompl icated PT EVAL 08898-5.61 Diagnos GENTRY ARREAGA 06/25 06/25 [place] MOD [id number] is: TIN W /2021 [facility] COMPLEX 30 ICD-10- HCS MIN CM Z74.09 Other reduced mobilit y
w ith Provide r Comment s: Reduced Mobilit y Inpatient 28649-9.61 06/25 [place] Encounter [id number] [facility] Inpatient 65650-8.61 06/25 06/25 [place] Encounter [id number] /2021 [facility] Inpatient 82290-9.61 06/25 06/25 [place] Encounter [id number] /[facility] OT EVAL 31197-1.61 Diagnos RICARDO TONG 06/25 06/25 [place] LOW [id number] is: TTHEW [facility] COMPLEX 30 ICD-10- [facility] MIN CM Z73.6 Limitat ion of activit ies due to disabil ity<br/ >with Provide r Comment s: Limitat ion of activit ies due to disabil ity Inpatient 36377-2.61 06/25 06/25 [place] Encounter [id number] /2021 [facility] Inpatient 87245-7.61 06/26 06/26 [place] Encounter [id number] /2021 [facility] Inpatient 40001-9.61 SYSTEM,CIS 06/26 06/26 [place] Encounter [id number] -ARK /2021 [facility] Inpatient 75785-3.61 06/26 06/26 [place] Encounter [id number] /2021 [facility] H[facility] CASE 02623-7.61 Diagnos BRAZORIA 06/26 06/26 [place] MANAGEMENT [id number] is: ,EDWARDO L /2021 O [facility] ICD-10- HCS CM Z71.89 Other specifi ed crisis counselor ing<br/ >with Provide r Comment s: Other specifi ed Materials Buyer ing Inpatient 59600-4.61 06/26 06/26 [place] Encounter [id number] /2021 [facility] Inpatient 82741-5.61 06/26 [place] Encounter [id number] /2022 [facility] SELF CARE 51057-7.61 Diagnos RICARDO TONG 06/26 06/26 [place] MNGMENT [id number] is: TTHEW [facility] TRAINING ICD-10- [facility] CM Z73.6 Limitat ion of activit ies due to disabil ity<br/ >with Provide r Comment s: Limitat ion of activit ies due to disabil ity Outpatient 59584-5.61 06/27 [place] Encounter [id number] /2021 [facility] HC PRO 88353-1.61 Diagnos RICARDO HOU 06/28 [place] PHONE CALL [id number] is: TTHEW S /2021 [facility] 11-20 MIN ICD-10- HCS CM Z79.01 care home (curren t) use of anticoa gulants
wi th Provide r Comment s: care home (curren t) use of anticoa gulants Outpatient 15496-8.61 06/28 [place] Encounter [id number] /2021 [facility] OFFICE O/P 57768-1.61 Diagnos FRED THORNE 06/28 [place] EST [id number] is: E A [facility] MINIMAL ICD-10- HCS PROB CM Z71.89 Other specifi ed crisis counselor ing<br/ >with Provide r Comment s: Specifi ed crisis counselor ing, not listed elsewhe re Outpatient 90136-8.61 07/02 [place] Encounter [id number] /2021 [facility] Outpatient 11402-8.61 07/04 [place] Encounter [id number] /2021 [facility] Outpatient 92243-3.61 VU, 07/15 [place] Encounter [id number] RA R /2021 [facility] Outpatient 56414-7.61 MARCI TAYLOR 07/16 [place] Encounter [id number] ISTINE /2021 [facility] Outpatient 47345-3.61 VU, 07/16 [place] Encounter [id number] RA R /2021 [facility] Outpatient 09642-1.61 07/17 [place] Encounter [id number] /2021 [facility] Outpatient 54652-1.61 VU, 07/17 [place] Encounter [id number] RA R /2021 [facility] Outpatient 66358-3.61 07/19 [place] Encounter [id number] /2021 [facility] OFFICE O/P 18770-5.61 Diagnos NANCY PERRY 07/19 [place] EST MOD [id number] is: RRY A [facility] 30-39 MIN ICD-10- HCS CM M06.9 Rheumat oid arthrit is, unspeci fied
with Provide r Comment s: Seropos itive rheumat oid arthrit is ([facility] [id number] 05) Social History Combined list of available smoking, tobacco, and other social history [facility]. Social History Type Response Date Comment Source Tobacco [facility] History of tobacco VA-TOBACCO QUIT 1 TO < 03/05/2022 [facility] use 5 YRS History of tobacco VA-TOBACCO NEVER USED 06/01/2021 [facility] use History of tobacco PA-TOBACCO QUIT < 1 12/31/2019 [place] [facility] use YEAR History of tobacco VA-TOBACCO FORMER USER 03/23/2019 [facility] use History of tobacco CURRENT TOBACCO USER 06/10/2018 [facility] use History of tobacco INPT TOBACCO COUNSELING 05/10/2018 [facility] use History of tobacco FORMER TOBACCO USE <1Y 08/29/2017 [facility] use History of tobacco INPT TOBACCO COUNSELING 05/26/2017 [facility] use History of tobacco INPT TOBACCO COUNSELING 05/03/2017 [facility] use History of tobacco FORMER TOBACCO USE <1Y 09/18/2016 [facility] use History of tobacco INPT TOBACCO USE - PT 08/10/2016 [facility] use REFUSED History of tobacco INPT TOBACCO COUNSELING 08/01/2016 [facility] use History of tobacco CURRENT TOBACCO USER 02/08/2015 [facility] use History of tobacco CURRENT TOBACCO USER 11/29/2013 [facility] use History of tobacco PATIENT IS TOBACCO USER 11/26/2013 [facility] use History of tobacco CURRENT TOBACCO USER 11/27/2012 [facility] use History of tobacco CURRENT TOBACCO USER 12/27/2011 [facility] use History of tobacco CURRENT TOBACCO USER 01/22/2011 [facility] use History of tobacco CURRENT TOBACCO USER 03/13/2010 [facility] use Plan of Care List of future care activities from [facility] facilities. Additional future care activities may be listed in the Assessment and Plan section. Date/Time Care Activity Care Activity Detail Facility 07/24/2022 AMBULATORY - MEDICINE AMBULATORY - [facility] Advance Directives List of completed, amended, or rescinded Advance Directives on record at [facility] facilities. An actual copy of the Directive is not included. Date Advance Directive Provider Source 02/25/2018 ADVANCE DIRECTIVE AURORA MORALES [facility] 02/24/2018 ADVANCE DIRECTIVE DISCUSSION AURORA MORALES [facility] 05/26/2017 CLINICAL WARNING MAGO CONTRERAS [facility] 05/03/2017 CLINICAL WARNING SARIAH ENGLE [facility] 08/10/2016 CLINICAL WARNING ISABEL BARCENAS [facility] 08/02/2016 CLINICAL WARNING AURORA ALMAZAN [facility]
--- OUTSIDE RECORDS SUMMARY | 2022-07-22 15:15 | XMS_ITS ---
HOSPITALIZATION [facility] Encounter Summary Created on:June 24, 2022 Patient:REGI MANTILLA Sex:Male :1950 [address] Organization Department [facility] Address [address] [place] [address] Support Name Relationship Address Phone MADELIN MANTILLA Unavailable [address] [phone] [place] [address] MADELIN MANTILLA Unavailable [address] [phone] [place] [address] DHAVAL MANTILLA Unavailable [address] [place] [address] Insurance Providers: All historical and current Section [...] MEDICARE MEDICARE PART Jul 18, PART B [id number] ANNALEE BRYANIENT (WNR) (M) B [id number] [phone] ,REGI MEDICARE MEDICARE PART Apr 17, PART A [id number] ANNALEE Cardenas ATIENT (WNR) (M) A [id number] [phone] ,REGI Selected Encounter This section includes the [...] of Unsp disp fx of Brianda RANDY [facility] 05:04 PM Stay fifth cervical vertebra, init for clos fx Plan of Treatment: Future Appointments (+ 6 months) and Future Tests (+/- 45 days) The Plan of Treatment section includes future care activities for the patient from [facility] This section includes future appointments and future orders which are active, pending orscheduled.Future Appointments This section includes appointments that were scheduled to occur 6 months from the date of the Encounter, up to a maximum of 20 appointments. The data comes from all ID treatment [facility]. Appointment Date/Time Appointment Type Appointment Facili ty Name Jul 15, 2022 02:49 PM AMBULATORY - NONE [facility] Jul 16, 2022 12:20 PM AMBULATORY - NONE [facility] Jul 17, 2022 10:22 PM AMBULATORY - NONE [facility] Jul 19, 2022 07:00 AM AMBULATORY - NONE [facility] Jul 19, 2022 08:00 AM AMBULATORY - MEDICINE [facility] Jul 19, 2022 09:00 AM AMBULATORY - MEDICINE [facility] Jul 24, 2022 11:00 AM AMBULATORY - MEDICINE [facility] Jul 25, 2022 09:00 AM AMBULATORY - NONE [facility] Jul 25, 2022 10:30 AM AMBULATORY - NONE [facility] Jul 25, 2022 11:00 AM AMBULATORY - SURGERY [facility] Jul 25, 2022 12:30 PM AMBULATORY - NONE [facility] Aug 05, 2022 11:00 AM AMBULATORY - NONE [facility] Aug 06, 2022 10:00 AM AMBULATORY - SURGERY [facility] Oct 21, 2022 03:00 PM AMBULATORY - SURGERY [facility] Nov 20, 2022 10:30 AM AMBULATORY - MEDICINE [facility] Nov 20, 2022 11:00 AM AMBULATORY - MEDICINE [facility] Nov 20, 2022 11:30 AM AMBULATORY - MEDICINE [facility] Active, Pending, and Scheduled Orders [...] The data comes from all ID treatment [facility]. Test Date/Time Test Type Test Details Facility Name May 15, 2022 12:00 Laboratory - COVID-19 AND FLU/RSV DIAG [facility] AM Chemistry Order PANEL(CEPHEID) NASOPHARYNGEAL SWAB STAT WC ONCE Jun 24, 2022 06:55 Laboratory - EXTRA BLUE TUBE PLASMA WC [facility] PM Chemistry Order Jun 24, 2022 06:55 Laboratory - EXTRA PURPLE TUBE BLOOD [facility] PM Chemistry Order Jun 24, 2022 06:55 Laboratory - EXTRA GOLD GEL TUBE SERUM [facility] PM Chemistry Order Jun 24, 2022 06:55 Laboratory - EXTRA MINT TUBE PLASMA WC [facility] PM Chemistry Order Jun 28, 2022 04:57 Consult Order NEUROSURGERY OUTPT Cons [facility] PM Forensic Identification Specialist's Choice Jun 28, 2022 05:00 Consult Order UROLOGY OUTPT Cons ZEINAB S [facility] PM Forensic Identification Specialist's Choice Jul 25, 2022 10:30 Imaging - General CERVICAL SPINE 4 OR 5 [facility] AM Radiology Order VIEWS Lab Results: [...] Result - Unit Interpretation Reference Range Comment Jul 19, 2022 [facility] RHEUMATOLOGY CHEM PANEL Spec imen Type: PLASMA 08:08 AM No comment enter ed. Ordering Provid er: JENNA LUIS Report Released Date/Time: Jan 11, 2022 11:04 AM Reporting [facility] [id number] Performing Lab: [facility] [address] CREATININE 1.5 H 0.7-1.2 ALKALINE PHOSPHATASE 72 40-150 ALT/SGPT 12 <55 AST/SGOT 11 <34 C-REACTIVE PROTEIN 5.28 H <5.00 CREAT EGFR(CKD-EPI) 49 L >60 Jul 19, 2022 [facility] RHEUMATOLOGY HEME PANEL Spec imen Type: BLOOD 08:08 AM No comment enter ed. Ordering Provid er: JENNA LUIS Report Released Date/Time: Jan 11, 2022 11:04 AM Reporting Lab: [facility] [address] [facility] [address] Performing Lab: [facility] [address] WBC 13.17 H 4.0-11.0 RBC 3.21 L 4.6-6.2 HGB 10.9 L 13.5-17.9 HCT 33.9 L 41-54 MCV 105.6 H 80-100 MCH 34.0 H 27-33 MCHC 32.2 32.0-37.5 PLT pending MPV pending NEUT 53.0 LYMPHS 24.3 MONO 9.6 EOSINO 11.2 BASO 1.0 RDW 12.1 11.5-14.5 ABS LYMPH 3.20 1.0-4.0 ABS MONO 1.26 H 0.1-1.0 ABS NEUT 6.99 2.0-7.7 ABS EOS 1.47 H 0-0.5 ABS BASO 0.13 0-0.2 IG(META,MYELO,PRO) 0.9 ABS IMMATURE GRAN 0.12 H 0-0.1 SED RATE 22 H 5-15 Jun 24, 2022 09:29 PM [facility] URINALYSIS Specim en Type: URINE No comment enter ed. Ordering Provid er: JAYDE MENDOZA Report Released Date/Time: Jun 24, 2022 06:55 PM Reporting Lab: [facility] [id number] Performing Lab: [facility] [address] URINE COLOR YELLOW SPECIFIC GRAVITY 1.039 H [...] Jun 24, 2022 08:09 PM Reporting Lab: [facility] [address] Performing Lab: [facility] [address] AST/SGOT 19 <34 Jun 24, 2022 08:24 PM [facility] POTASSIUM Specim en Type: PLASMA No comment enter ed. Ordering Provid er: JAYDE MENDOZA Report Released Date/Time: Jun 24, 2022 08:09 PM Reporting Lab: [facility] [address] Performing Lab: [facility] [address] [facility] [address] POTASSIUM 4.9 3.5-5.1 Jun 24, 2022 08:24 PM [facility] PROTEIN,TOTAL Specim en Type: PLASMA No comment enter ed. Ordering Provid er: JAYDE MENDOZA Report Released Date/Time: Jun 24, 2022 08:09 PM Reporting Lab: [facility] [address] [facility] [address] Performing Lab: [facility] [address] [facility] [address] PROTEIN,TOTAL 6.8 6.0-8.3 Jun 24, 2022 07:40 [facility] PROTHROMBIN TIME/INR Spec imen Type: PLASMA PM No comment enter ed. Ordering Provid er: JAYDE MENDOZA Report Released Date/Time: Jun 24, 2022 06:55 PM Reporting Lab: [facility] [address] [facility] [address] Performing Lab: [facility] [address] [facility] [address] .INR 1.1 0.8-1.1 .PT 12.1 9.4-12.5 Jun 24, 2022 07:32 [facility] COVID-19 DIAGNOSTIC Speci men Type: NASOPHARYNGEAL PM PANEL (CEPHEID) Comment: Bryan rodriguez GeneXpert (618) Ordering Provid er: JAYDE MENDOZA Report Released Date/Time: Jun 24, 2022 06:55 PM Reporting Lab: [facility] [address] [facility] [address] Performing Lab: [facility] [address] [facility] [address] COVID-19 (CEPHEID) Not Detected Not Dete cted [...] Lab: [facility] [address] [facility] [address] Performing Lab: [facility] [address] [facility] [address] CREATININE 1.3 H 0.7-1.2 UREA NITROGEN 19 [...] PM Reporting Lab: [facility] [address] Performing Lab: [facility] [address] WBC 9.67 4.0-11.0 RBC 3.36 L 4.6-6.2 [...] Marcus dy Source Pressure Rate Mass Index Aug 08, 8 [place] 2021 11:13 [place] [facility] Jun 24, 8 [place] 2021 11:12 [place] [facility] Jun 24, 98.2 F 63 128/87 16 /min 92 % 8 62.0 in 116.0 21 [place] 2021 10:38 /min mm[Hg] lb [place] [facility] Jun 24, 97.5 F 69 99/64 15 /min 8 [place] 2021 06:00 /min mm[Hg] [facility] Social History: Smoking Status (Most [...] 2022 01:30 PM VA-TOBACCO FORMER USER [facility] Tobacco Use History This section includes a history of the smoking, or tobacco- related health factors, that were collected on or before the date of the Encounter. The data comes from the ID facility where the Encounter took place. Date/Time Smoking Status/Tobacco Use Comment [facility] it Mar 05, 2022 01:30 PM VA-TOBACCO QUIT 1 TO < 5 YRS [facility] Jun 01, 2021 02:00 PM VA-TOBACCO NEVER USED [place] [facility] Dec 31, 2019 10:54 AM VA-TOBACCO FORMER USER [facility] Dec 31, 2019 10:54 AM VA-TOBACCO QUIT < 1 YEAR [place] [facility] March 23, 2019 09:53 AM VA-TOBACCO FORMER USER [facility] March 23, 2019 09:53 AM VA-TOBACCO QUIT < 1 YEAR [place] [facility] Jun 10, 2018 10:00 AM CURRENT TOBACCO USER [place] [facility] May 10, 2018 07:27 PM IN[place] TOBACCO COUNSELING [place] [facility] May 10, 2018 07:27 PM INPT TOBACCO US[place] [facility] Aug 29, 2017 09:55 AM FORMER TOBACCO USE <1Y [facility] May 26, 2017 10:51 PM INPT TOBAC[place] COUNSELING [place] [facility] May 26, 2017 10:51 PM INPT TOBACCO US[place] [facility] May 03, 2017 09:34 PM INPT TOBACCO COUNSELING [place] May 03, 2017 09:34 PM INPT TOBACCO USER GONZALES LORENZ [facility] Sep 18, 2016 01:36 PM FORMER TOBACCO USE <1Y [facility] Aug 10, 2016 03:54 PM INPT TOBACCO USE - PT REFUSED [facility] Aug 01, 2016 06:48 PM [facility] Aug 01, 2016 06:48 PM INPT TOBACCO USER [facility] Feb 08, 2015 09:57 AM CURRENT TOBACCO USER [facility] Nov 29, 2013 10:37 AM CURRENT TOBACCO USER [facility] Nov 26, 2013 11:09 AM PATIENT IS TOBACCO USER ANAID EPPSPOLDAVID [facility] Nov 27, 2012 12:12 PM CURRENT TOBACCO USER [facility] KRISTELS [facility] Dec 27, 2011 09:44 AM CURRENT TOBACCO USER [facility] Jan 22, 2011 02:38 PM CURRENT TOBACCO USER [facility] Mar 13, 2010 12:48 PM CURRENT TOBACCO USER [facility] Advance Directives: All historical and [...] 26, 2022 05:04 DISCHARGE SUMMARY: ANUPAMA HILL GONZALES [facility] PM LOCAL TITLE: Discharge Summary STANDARD TITLE: DISCHARGE SUMMARY DICT DATE: JUN 26, 2022@14:31 ENTRY DATE: JUN 172021@14:32 DICTATED BY: ANUPAMA HILL ATTENDING: MARQUEZ CERRATO URGENCY: routine STATUS: COMPLETED Discharge Summary Has ADDENDA Medicine Discharge Summary DRAFT UNTIL SIGNED BY [...] ILLNESS: See admission history and physical for [facility] r details Mr. Mantilla is a 68 year old MALE with PMH sig nificant for CAD s/p stent x 3 (prox LCX, distal LCX, OM2) in 07/2016, alcohol use disorder, CKD, seropositive rheumatoid arthritis and pAfib on apixaban with recent mech anical fall in the setting of alcohol intoxication who was discharged from [facility] on 06/24/2022 and presented to [facility] for assistance with finding pl acement. Patient progressed w/ PT and OT at [facility] and he was deemed safe to return home w/ family support. Patient and family wanted to pur jessi private pay TCU and/or home care while at [facility], but this was not an option due to lack of skilled need and availability. Patient was reass essed by PT and OT while at the ID. PT recommended discharge home. OT recomm ended home OT. Hospital course complicated by patient removing his Castro catheter w/ balloon intact. Castro was replaced by RN without complication. Theresa calloway was discharged home in good condition w/ home health referral. HOSPITAL COURSE BY PROBLEM: # C5 pedical fracture # Central cord syndrome # Mechanical fall Per records from [facility], patient had an accidental fall from bed [...] to return home w/ family support. - Hawks x 3mo - Pain management: scheduled APAP, [...] leave in for 1 week w / funeral home assistant removal at home per [facility] discharge summary. - Continue OFFICE SUPPORT ASSOCIATE Keflex - Continue OFFICE SUPPORT ASSOCIATE tamsulosin - F/u w/ urology as outpatient [...] FOLLOW UP care plan by issue: Per [facility] discharge summary: - Specialists: [facility] (4 week s), urology - Home health nursing in 1 week for Castro remova l DISPOSITION ON DISCHARGE: Home CONDITION AT DISCHARGE: Good PERTINENT EXAM FINDINGS: General: Awake, Alert, Oriented X3, No apparent distress. C-collar in place. HEENT: EOMI. Healing scalp wounds. Cardio: Irregularly irregular. Regular rate. Lungs: Clear to auscultation bilaterally, no cradle slide maker ckles, no wheezing, no increased WOB. Abd: [...] Patients plan was discussed with attending physi paweljasen Franz [facility] ACQUIRED PNEUMONIA (HAP) HAP is defined [...] /mikal/ ANUPAMA HILL Resident Signed: 06/26/2022 14:45 /mikal/ MARQUEZ FRANZ MD PHYSICIAN Cosigned: 06/26/2022 14:54 06/26/2022 ADDENDUM STATUS: COMPLETED Secondary diagnoses: Calorie malnutrition, sever e; hx alcohol use requiring thiamine supplement /mikal/ ANUPAMA HILL Resident Signed: 07/02/2022 14:48 /mikal/ MARQUEZ FRANZ MD PHYSICIAN Cosigned: 07/09/2022 09:24 Jun 26, 2022 03:01 NURSING INPATIENT NOTE: AUBRIE SY [facility] PM LOCAL TITLE: [facility]AH NURSING PROGRESS NOTE STANDARD TITLE: NURSING INPATIENT NOTE DATE OF NOTE: JUN 26, 2022@15:01 ENTRY DATE: JUN 26, 2022@15:01:46 AUTHOR: AUBRIE SY I EXP COSIGNER: URGENCY: STATUS: COMPLETED IMPORTANT PHONE NUMBERS: IF YOU HAVE A LIFE THREATENING EMERGENCY CALL [phone] If you have questions about anything related to your inpatient care at the [facility] or your future care in the [facility], call the Call Center or After Hour numbers list ed below. If you receive care at another ID facility or w ith a community provider, you will need to call them for questions about y our future care. -Call Center Friday-Friday, 7:30-4:30 at or Toll Free -After Hours- toll-free -Outpatient Pharmacy - -Verification of Appointments for the following month - *'S CRISIS LINE NUMBER IS (TALK)* Discharge from ICU, Acute Care, Acute Rehab, or CLC C-SSRS Screening [place] Suicide Severity Rating Scale (C-SSRS) screener 1. [...] below. Primary Care Team: Primary Care Team: ROSANNA ANDREWS Primary Care Provider: MARYELLEN LEON No [...] care needs: If you receive care at [facility] you will nee d to call the Primary Care Call Center number at [phone] . If you receive care at another ID facility or [facility] provider, you will need to call them to arrange your follow u p care. Follow up not ordered at this time. Call the Call Center if problems occur at . Future appointments: 07/12/2022 09:20 ROSANNA [facility] APPOINT[facility] 07/19/2022 08:00 ROSANNA 3D [facility] APPOINT[facility] 07/19/2022 09:00 ROSANNA PERRY MD 3D INPATI ENT APPOINTMENT 11/20/2022 10:30 ROSANNA [facility]D [facility] APPOINTMENT 11/20/2022 11:00 ROSANNA 3D EKG INPATIENT APPOINTMENT 11/20/2022 11:30 [facility]NA [facility] You are being referred to these outside agencie s: Home health nurse for castro removal in one week and for medication man agement. IM - Immunizations Immunization Series Date Facility Reaction Info COVID-19 (PFIZER), MRNA, LNP-S, P* 3 09/28/2021 [place] 2 01/31/2021 [place] 1 01/12/2021 [place] COVID-19 (PFIZER), MRNA, LNP-S, P* 4 03/05/2022 [place] INFLUENZA, HIGH DOSE SEASONAL 08/29/2017 [place]XA* 11/03/2015 [place] INFLUENZA, INJECTABLE, QUADRIVALE* 09/28/2021 [place] 07/28/2020 [place] INFLUENZA, SEASONAL, INJECTABLE,* 08/26/2019 [place] 09/18/2018 [place]* 08/01/2016 No Site 11/09/2014 [...] outlined below: OUTPATIENT FOLLOW UP - Specialists: [facility], [place], [facility] ([address] tor[address]), urology - Discharge [...] 01:56 PASTORAL CARE NOTE: ISRRAEL ELLIOTT IS [facility] LOCAL TITLE: STENCILING MACHINE TENDER-VISITATION NOTE STANDARD TITLE: PASTORAL CARE NOTE DATE OF NOTE: JUN 26, 2022@13:56 ENTRY DATE: JUN 26, 2022@13:56:30 AUTHOR: ISRRAEL ELLIOTT EXP COSIGNER: URGENCY: STATUS: COMPLETED SUBJECT: [facility] Pastoral visit. The patient asked to rec eive Tyson in the most Holy Eucharist. The Sacrament was celebrated with the patient. Progress note entered for Mr Riaz Arellano - Oriental Orthodox Extra Ordinary Assistant Signal Maintainer of [employer] - Volunteer. /es/ FATHER ISRRAEL ELLIOTT (DAMIEN) CHIEF, STENCILING MACHINE TENDER SERVICE Signed: 06/26/2022 13:56 Jun 26, 2022 09:55 OCCUPATIONAL THERAPY DISCHARGE NOTE: ASHA TONG [facility] TITLE: OT-DISCHARGE NOTE MALINI STANDARD TITLE: OCCUPATIONAL [...] 06/26/22 Encounter: 27 minutes self care SUBJECTIVE: approach ed in supine on this date, agreeable to OT session. reporting that overnight he had pulled o ut his catheter because he didn't know that it had a balloon holding it in side. continued to display confusion regarding his catheter after c onversations with typewriter aligner and medicine steam heating installer. GOAL(s) ADDRESSED THIS SESSION: +hygiene/grooming +toileting +total body dressing +functional mobility +bed mobility +falls/mobility OBJECTIVE/PROGRESS TOWARDS GOAL(s): [place] cont inued to display impulsivity during session [...] for STS x2 with use of FWW. demo nstrating similar performance with and without mobility aid during functional transfers. -Bed mobility: SBA for sup<>sit. -Falls/Mobility: SBA for functional amb ulation to and from bathroom and 1 lap around sharma with FWW. Vet able to maintain conve rsation while ambulating. displayed some insta nces of collisions while [...] hand held shower hose, a nd a supervisor calibration. [place] agreeable to use and able to demonstrate use of supervisor calibration during se ssion. +Discharge recommendations provided to [...] > Impairment consistent w ith Dementia Comments: [place]'s score indicates cognitive im pairment. At this time, a referral to neuropsychology testing to futher identify deficits is appropriate. Equipment provided to date: none Equipment still needed: supervisor calibration, shower chair an d hand held shower hose ASSESSMENT: kerline Mantilla is 72 yo referred to this sett ing of weakness. Vet's PMH includes HTN, alcohol abuse, CAD, CKD, Afib, and hearing loss. OT consulted for assessment and treatment. At baseline, manohar lives in a home with his and son. [place] reported that he was IND in I/ADLs, however received assistance with tying shoes, buttoning his shirts and other fine motor tasks. seen for f/up session on this date to ad dress multiple ADLs. [place] required SBA throughout session for ADLs . However SBT was completed indicating that has deficits in cognition. Recommen d a referral to [facility]. Education provided on appropriate [...] 100% adherence during ADL transfers and tasks.-D/C QUALITY CONTROL SUPERVISOR GOALS TO BE MET BY DISCHARGE: will [...] to determine underlying impairment impacting safety and pharmacy graduate intern ment -Outpatient OT for UE ROM and [...] approved by the primary OT. Encounter data support specialist was approved by the primary OT and is accurate for the services provided. /mikal/ ASHA TONG MS, OTR/L OCCUPATIONAL THERAPIST Signed: 06/26/2022 15:20 Jun 26, 2022 08:12 NURSING INPATIENT NOTE: YOU MERCADO [facility] LOCAL TITLE: [facility] NURSING PROGRESS NOTE STANDARD TITLE: NURSING INPATIENT NOTE DATE OF NOTE: JUN 26, 2022@08:12 ENTRY DATE: JUN 26, 2022@08:12:48 AUTHOR: YOU MERCADO EXP COSIGNER: URGENCY: STATUS: COMPLETED Nursing Shift Note Nursing care provided from 06/26 [phone] Highlights from shift: VSS. Cervical collar on. Up walking adrián und the unit independently. Came up to nursing station at 0030 asking if the castro cath eter could be removed. Pt informed that MDs want to leave castro in for now and have him follow-up [...] blood dripping out of his urethral meatus. MD contacted and gave okay to replace fo estephania catheter. This was done with some griggs return, urine lightening up to orange color by end of tour. 700ml total output aside fro m whatever he expelled between pulling the catheter out and getting the new catheter placed. Pt zoëe rated the placement well and fell asleep [...] 2022 03:13 NURSING INPATIENT NOTE: RAJNI MUNROE [facility] LOCAL TITLE: [facility] NURSING PROGRESS NOTE STANDARD TITLE: NURSING INPATIENT NOTE DATE OF NOTE: JUN 25, 2022@15:13 ENTRY DATE: JUN 25, 2022@15:13:30 AUTHOR: RAJNI MUNROE EXP COSIGNER: URGENCY: STATUS: COMPLETED Nursing Shift Note Nursing care provided from [phone] Highlights from shift: Mr. Mantilla had a [...] 02:14 INTERNAL MEDICINE INPATIENT NOTE: [facility] LOCAL TITLE: MEDICINE INPT PROGRESS NOTE STANDARD [...] rate. Lungs: Clear to auscultation bilaterally, no cradle slide maker ckles, no wheezing, no increased WOB. Abd: [...] of alcohol intoxication who was discharged from [facility] on 06/24/2022 and presented to [facility] for assistance with finding TC U. ACUTE ISSUES # C5 pedical fracture # Central cord syndrome # Mechanical fall Per records from [facility], patient had an accidental fall from bed [...] lack of skilled need and availability. - Hawks x 3mo - Qshift neuro assessment - [...] leave in for 1 week w / funeral home assistant removal at home. - Continue OFFICE SUPPORT ASSOCIATE Keflex - Continue OFFICE SUPPORT ASSOCIATE tamsulosin - F/u w/ urology as outpatient [...] AFl burden w/ average HR 140 bpm. -clam dredge boat captain apixaban -clam dredge boat captain amiodrone -follows with EP, last since seen in 04/2022 #CKD Admission cr 1.3. Baseline 1.2-1.4. -CTM, avoid nephrotoxic agents #Seropositive RA -clam dredge boat captain prednisone 10 mg daily -clam dredge boat captain sulfasalazine 1000 mg BID OUTPATIENT FOLLOW [...] 01:15 NUTRITION CONSULT: [facility] LOCAL TITLE: NUTRITION CONSULT STANDARD [...] 122.1(55.38)[22] BMI: 21 Usual body weight: 130#'s [place] body weight: 118#'s Recent weight changes: -14#'s [...] like any tacos, burritos, Mexica n food. [place] distractible, needs redirection to nutrition conversation at times. Noted H &P indicated alcohol use, replacing PO intake? Food preferences obtained Cultural/taoism food preferences: None Food Allergies: None Feeding [...] Not Able to Assess for Fluid Accumulation Industrial Retrofit Designer Strength Not Assessed Conclusion: Based on the above findings, the meets the clinical characteristics to support a diagnosis of: Severe Chronic Disease R elated Malnutrition. Skin Condition: skin intact per 06/25 nursing note Luther Score 15, Nutrition subscore 2 Estimated Nutrient Needs based on actual body we ight of 52kg 5308-0726 calories/day 30-35 kcal/kg ~62 grams protein/day ~1.2 g/kg *Monitor renal f unction 8622-8762 ml fluids/day 1 ml/kcal consumed or pe r Nutritional Diagnosis: Severe malnutrition r/t diff iculty [...] 12:53 ATTENDING ADMISSION EVALUATION NOTE: MARQUEZ FRANZ [facility] LOCAL TITLE: MEDICINE ADMISSION STAFF NOTE STANDARD [...] with C5 fx. Patient was treated at [facility] for C5 fx and central cord syndrome. [...] with C5 fx. Patient was treated at [facility] for C5 fx and central cord syn drome 1. Weakness/Rehab: patient had outpatient follow -up plan established by [facility]; plan to follow-up with Neurosurgery as outpatient. - PT evaluated patient here. Full note p ending; but reportedly did not feel he required STR either; can likely discharge home N Osei [phone] /es/ MARQUEZ FRANZ MD PHYSICIAN Signed: 06/25/2022 13:02 Jun 25, 2022 10:34 OCCUPATIONAL THERAPY INITIAL EVALUATION NOTE: ASHA TONG [facility] TITLE: OT-EVALUATION NOTE MALINI STANDARD TITLE: OCCUPATIONAL THERAPY INITIAL CHANDRA LUATION NOTE DATE OF NOTE: JUN 25, 2022@10:34 ENTRY DATE: JUN 25, 2022@10:34:26 AUTHOR: PRESTON CHAVEZ COSIGNER: ASHA TONG URGENCY: STATUS: COMPLETED OT-EVALUATION [...] cognition i mpacting ADL/IADL safety and independence. required SBA<>C GA during functional mobility and [...] adherence during ADL transfers and tasks.-heather mosquera JAIL GOALS TO BE MET BY DISCHARGE: [place] will maximize independence and safety wi th ADL/IADLs in order to discharge to least restrictive environment. DISCHARGE: [place] would benefit from s hort-term rehabilitation for 2-3 weeks stay prior to discharge to least restrictive environment to ad dress independence with basic self-cares and home safety. PATIENT EDUCATION ON TREATMENT PLAN: Patient indicates readiness to learn, verbalizes understanding, agreement and satisfaction with the treatment plan. Denies fur ther questions. CURRENT MEDICAL HISTORY: Benign essential hypertension ([facility] 23424Mfyuicr loss (ICD-9-CM 389.9) HTN - Hypertension ([facility] 42902430) Hyperlipidemia ([facility] 66578975) Alcohol abuse ([facility] 88250207) Cannabis abuse ([facility] 12070561) Pain in joint involving shoulder region Anemia ( [facility] 616580984) Jt Replcmnt Stat, Knee (ICD-9-CM V43.65)Gastroes ophageal reflux disease ([facility] 798038233) CAD - Coronary artery disease ([facility] 55971Vxwkn no n-ST segment elevation myocardial infarction ([facility] 329999286) Chronic kidney disease ([facility] 298473542) Rib fract ure ([facility] 97282668) Pain of right shoulder joint ([facility] 244326Shqx landry n ([facility] 81817300) Ankle pain ([facility] 074385635) Rhinitis ([facility] 1628950 2) Seropositive rheumatoid arthritis (SCT 2Multifoc al atrial tachycardia ([facility] 45091503) Elevated liver enzymes level ([facility] 228703Exdypsni al atrial fibrillation ([facility] 728515620) Long-term current use of anticoagulant (Drug mon itoring done ([facility] 150986252) SUBJECTIVE: [place] approach ed sitting EOB on this date. agreeable to OT session. [place] tangential with conversation, a nd required redirection to complete full OT evaluation. becoming confused throughout session on the role of typewriter aligner requiring re-education on multipl e occassions. CONTEXT [...] with use of FWW and grab bar. [place] demonstrating impulsivity when sitting down. -UE Dressing: [...] +pronation:3/5 +wrist flexion/extension: 3/5 +finger flexion/extension: 3/5 +Industrial Retrofit Designer strength: 4/5 Coordination: WFL Sensation: Intact in [...] 3/5 +wrist flexion/extension: 3/5 +finger flexion/extension: 3/5 +Industrial Retrofit Designer strength: 4/5 Coordination: WFL Sensation: Intact in [...] for PRESTON CHAVEZ OCCUPATIONAL THERAPY STUDENT /mikal/ AHSA TONG MS, OTR/L OCCUPATIONAL THERAPIST Cosigned: 06/25/2022 [...] approved by the primary OT. Encounter data support specialist was approved by the primary OT and is accurate for the services provided. /mikal/ ASHA TONG MS, OTR/L OCCUPATIONAL THERAPIST Signed: 06/25/2022 15:58 Jun 25, 2022 03:58 NURSING INPATIENT NOTE: JOSE ALBERTO OSCAR [facility] LOCAL TITLE: SARAH NURSING PROGRESS NOTE [...] Skin Interventions performed this shift: Patient turned [id number] or as appropriate while in bed. Patient's heels elevated with pressure relief b oots or pillows under calves. /mikal/ JOSE ALBERTO OSCAR LPN LICENSED PRACTICAL NURSE Signed: 06/25/2022 07:40 06/25/2022 ADDENDUM STATUS: COMPLETED Cared for pt 06/25 [id number]. Doing well d uring this time. Pt [...] 25, 2022 02:40 NURSING NOTE: YOU MERCADO [facility] TITLE: [facility] SKIN INSPECTION/ASSESSMENT STANDARD TITLE: NURSING NOTE DATE [...] 02:28 NURSING ADMISSION EVALUATION NOTE: SHAD [facility] AM LOCAL TITLE: VAAES ACUTE INPATIENT NSG ADMISSIO N SCREEN STANDARD TITLE: NURSING ADMISSION EVALUATION NOT E DATE OF NOTE: JUN 25, 2022@02:28 ENTRY DATE: JUN 25, 2022@02:28:40 AUTHOR: YOU MERCADO EXP COSIGNER: URGENCY: STATUS: COMPLETED ALLERGY/ADVERSE DRUG REACTION (ADR) REVIEW (MRT 5) FACILITY ALLERGY/ADR -------- No Remote Allergy/ADR Data available for this [facility] LISINOPRIL Allergy/Adverse Drug Reaction Review to be condu cted by: Nurse Results of Allergy/ADR Review: Allergy/Adverse Drug Reaction list confirmed MEDICATION REVIEW (MRR1) Did patient bring medication(s) from home? No Medication Review to be conducted by Pharmacist Medication Review to be conducted by Provider GENERAL INFORMATION Admission information given by: Patient Preferred Language for Discussing Healthcare: Bangladeshi Preferred mode of communication: Verbal Items at bedside: Glasses/contacts: glasses Other: wallet, flip phone, clothes, shoes INFECTIOUS DISEASE RISK SCREEN Travel Screen: Have you traveled within the [facility] with in the last 21 days? No Have you traveled outside the [facility] wit hin the last 21 [...] special dieta ry needs, ethnic, cultural or taoism preferences affecting dietary needs? No Nutrition Consult [...] leave immed iately: No SUICIDE SCREEN The [place] Suicide Severity Rating Scale (C-SSRS) has been [...] Advance Directive: No SPIRITUAL ASSESSMENT Are there taoism practices or spiritual conc erns you want the cardroom drawing runner, your provider, and other health care team membe rs to know? 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 ANTICIPATED DISCHARGE NEEDS Where do you live? Housing owned/rented by [place] Do you have a legal guardian/conservator? No [...]
--- OUTSIDE RECORDS SUMMARY | 2022-07-22 15:18 | XMS_ITS | Encounter Summary ---
:1950 Author Organization [facility] Address [address] [place] [address] Support Name Relationship Address Phone MADELIN MANTILLA Unavailable [phone] [place] [address] MADELIN MANTILLA Unavailable [phone] [place] [address] DHAVAL MANTILLA Unavailable [address] [place] [address] Insurance Providers: All historical and current Section [...] MEDICARE MEDICARE PART Jul 18, PART B [id number] ANNALEE BUSTILLO (WNR) (M) B 2014A [phone] ,REGI MEDICARE MEDICARE PART Apr 17, PART A [id number] ANNALEE BUSTILLO (WNR) (M) A [id number] [id number] ,REGI Selected Encounter This section includes the information on record at NH for the Encounter. Date/Time Encounter Type Encounter Reason Provider Source Description Jul 15, 2022 02:49 Outpatient ADMIN PAT ACTIVTIES PRANAY WOMACK PM Encounter (MASNONCT) IHE Encounter Template Text not used by NH Plan of Treatment: Future Appointments (+ 6 [...] 20 appointments. The data comes from all NH treatment [facility]. Appointment Date/Time Appointment Type Appointment Facili ty Name Jul 16, 2022 12:20 PM AMBULATORY - NONE [facility] Jul 17, 2022 10:22 PM AMBULATORY - NONE [facility] Jul 19, 2022 07:00 AM AMBULATORY - NONE [facility] Jul 19, 2022 08:00 AM AMBULATORY - MEDICINE [facility] Jul 19, 2022 09:00 AM AMBULATORY - MEDIC[facility] Jul 24, 2022 11:00 AM [facility]BULATORY - [facility]ICINE [facility] Jul 25, 2022 09:00 AM AMBULATORY - NONE [facility] Jul 25, 2022 10:30 AM AMBULATORY - NONE [facility] Jul 25, 2022 11:00 AM AMBULATORY - SURGERY [facility] Jul 25, 2022 12:30 PM AMBULATORY - NONE [facility] Aug 05, 2022 11:00 AM AMBULATORY - NONE [facility] Aug 06, 2022 10:00 AM AMBULATORY - SURGERY [facility] Oct 21, 2022 03:00 PM AMBULATORY - SURGERY [facility] Nov 20, 2022 10:30 AM AMBULATORY - MEDICINE [facility] Nov 20, 2022 11:00 AM AMBULATORY - MEDICINE [facility] Nov 20, 2022 11:30 AM AMBULATORY - MEDICINE [facility] Active, Pending, and Scheduled Orders This section includes a listing of several types of active, pending, and scheduled orders, including clinic medications orders, diagnostic test orders, procedure orders and consult orders; where the start date of the order is 45 days before the date of the Encounter or 45 days after the date of the Encounter. The data comes from all NH treatment [facility]. Test Date/Time Test Type Test Details Facility Name Jun 24, 2022 06:55 PM Laboratory - Chemistry EXTRA GOLD GEL TUBE [facility] Order SERUM Jun 24, 2022 06:55 PM Laboratory - Chemistry EXTRA BLUE TUBE [facility] Order Jun 24, 2022 06:55 PM Laboratory - Chemistry EXTRA PURPLE TUBE B LOOD [facility] Order Jun 24, 2022 06:55 PM Laboratory - Chemistry EXTRA MINT TUBE [facility] Order Jun 28, 2022 04:57 PM Consult Order NEUROSURGERY [place]PT [place] [facility] Draw Furnace Tender's Choice Jun 28, 2022 05:00 PM Consult Order UROLOGY OUTPT [place] [facility] Draw Furnace Tender's Choice Jul 25, 2022 10:30 AM Imaging - General [facility] SPINE 4 [facility] 5 [facility] Order VIEWS Lab Results: +/- 30 days of the encounter This section includes the Chemistry and Hematology Lab Results on record with NH for the patient. Radiology Reports and Pathology Reports are provided separately, in subsequent sections.Lab Results This section contains the Chemistry/Hematology Results that were resulted 30 days before or 30 daysafter the date of the Encounter. Date/Time Source Result Type Result - Unit Interpretation Reference Range Comment Jul 19, 2022 [facility] RHEUMATOLOGY CHEM PANEL Spec imen Type: PLASMA 08:08 AM No comment enter ed. Ordering Provid er: JENNA LUIS Report Released Date/Time: Jan 11, 2022 11:04 AM Reporting Lab: [facility] [id number] Performing Lab: [facility] [address] CREATININE 1.5 H 0.7-1.2 ALKALINE PHOSPHATASE 72 40-150 ALT/SGPT 12 <55 AST/SGOT 11 <34 C-REACTIVE PROTEIN 5.28 H <5.00 CREAT EGFR(CKD-EPI) 49 L >60 Jul 19, 2022 [facility] RHEUMATOLOGY HEME PANEL Spec imen Type: BLOOD 08:08 AM No comment enter ed. Ordering Provid er: JENNA LUIS Report Released Date/Time: Jan 11, 2022 11:04 AM Reporting Lab: [facility] [address] Performing Lab: [facility] [address] WBC 13.17 H 4.0-11.0 RBC 3.21 L [...] H 5-15 Jun 24, 2022 09:29 PM [facility] URINALYSIS Specim en Type: URINE No comment enter ed. Ordering Provid er: JAYDE MENDOZA Report Released Date/Time: Jun 24, 2022 06:55 PM Reporting Lab: [facility] [address] [facility] [address] Performing Lab: [facility] [address] [facility] [address] URINE COLOR YELLOW SPECIFIC GRAVITY 1.039 H [...] Lab: [facility] [address] [facility] [address] Performing Lab: [facility] [address] [facility] [address] AST/SGOT 19 <34 Jun 24, 2022 08:24 PM [facility] POTASSIUM Specim en Type: PLASMA No comment enter ed. Ordering Provid er: JAYDE MENDOZA Report Released Date/Time: Jun 24, 2022 08:09 PM Reporting Lab: [facility] [address] [facility] [address] Performing Lab: [facility] [address] [facility] [address] POTASSIUM 4.9 3.5-5.1 Jun 24, 2022 08:24 PM [facility] PROTEIN,TOTAL Specim en Type: PLASMA No comment enter ed. Ordering Provid er: JAYDE MENDOZA Report Released Date/Time: Jun 24, 2022 08:09 PM Reporting Lab: [facility] [address] [facility] [address] Performing Lab: [facility] [address] [facility] [address] [facility] [address] PROTEIN,TOTAL 6.8 6.0-8.3 Jun 24, 2022 07:40 [facility] PROTHROMBIN TIME/INR Spec imen Type: PLASMA PM No comment enter ed. Ordering Provid er: JAYDE MENDOZA Report Released Date/Time: Jun 24, 2022 06:55 PM Reporting Lab: [facility] [address] Per[facility]: [facility] [address] .INR 1.1 0.8-1.1 .PT 12.1 9.4-12.5 Jun 24, 2022 07:32 [facility] COVID-19 DIAGNOSTIC Speci men Type: NASOPHARYNGEAL PM PANEL (CEPHEID) Comment: Bryan rodriguez GeneXpert (618) Ordering Provid er: JAYDE MENDOZA Report Released Date/Time: Jun 24, 2022 06:55 PM Reporting [facility] [address] Performing Lab: [facility] [address] COVID-19 (CEPHEID) Not Detected Not Dete cted Jun 24, 2022 [facility] COMPREHENSIVE METABOLIC Spec imen Type: PLASMA 07:29 PM PANEL+MG Comment: Cancel lation reported to: Rajni Giraldo RN on 06/24/22@2004 by [place]. Test result cancelled due to hemolysis interference in sample. Ordering Provid er: JAYDE MENDOZA Report Released Date/Time: Jun 24, 2022 06:55 PM Reporting Lab: [facility] [address] Performing Lab: [facility] [address] CREATININE 1.3 H 0.7-1.2 UREA NITROGEN 19 [...] Lab: [facility] [address] [facility] [address] Performing Lab: [facility] [address] WBC 9.67 4.0-11.0 RBC 3.36 L 4.6-6.2 [...] smoking and tobacco-related health factors from the [facility] where the Encounter took place.Current Smoking Status This section includes the most current smoking, or tobacco-related health factor, from the NH facility where the Encounter took place. Date/Time Current Smoking Status Comment Facility Mar 05, 2022 01:30 PM [facility] Tobacco Use History This section includes a history of the smoking, or tobacco- related health factors, that were collected on or before the date of the Encounter. The data comes from the [facility] where the Encounter took place. Date/Time Smoking Status/Tobacco Use Comment [facility] Mar 05, 2022 01:30 PM VA-TOBACCO QUIT 1 TO < 5 YRS [facility] Jun 01, 2021 02:00 PM VA-TOBACCO NEVER USED [place] [facility] Dec 31, 2019 10:54 AM [facility] Dec 31, 2019 10:54 AM VA-TOBACCO QUIT < 1 YEAR [place] [facility] March 23, 2019 09:53 AM VA-TOBACCO FOR[facility] USER [facility] March 23, 2019 09:53 AM VA-TOBACCO QUIT < 1 YEAR [place] [facility] Jun 10, 2018 10:00 AM CURRENT TOBACCO USER [place] [facility] May 10, 2018 07:27 PM INPT TOBACCO COUNSELING [place] [facility] May 10, 2018 07:27 PM INPT TOBACCO USER [place] [facility] Aug 29, 2017 09:55 AM FORMER TOBACCO USE <1Y [facility] May 26, 2017 10:51 PM INPT TOBACCO COUNSELING [place] [facility] May 26, 2017 10:51 PM INPT TOBACCO USER [place] [facility] May 03, 2017 09:34 PM INPT TOBACCO COUNSELING [place] [facility] May 03, 2017 09:34 PM INPT TOBACCO USER [place] [facility] Sep 18, 2016 01:36 PM FORMER TOBACCO USE <1Y [facility] Aug 10, 2016 03:54 PM INPT TOBACCO USE - PT REFUSED [facility] Aug 01, 2016 06:48 PM INPT TOBACCO COUNSELING [place] [facility] Aug 01, 2016 06:48 PM INPT TOBACCO USER [place] [facility] Feb 08, 2015 09:57 AM CURRENT TOBACCO USER [place] [facility] Nov 29, 2013 10:37 AM CURRENT TOBACCO USER [place] [facility] Nov 26, 2013 11:09 AM PATIENT IS TOBACCO USER [place] [facility] Nov 27, 2012 12:12 PM CURRENT TOBACCO USER [place] [facility] Dec 27, 2011 09:44 AM CURRENT TOBACCO USER [place] [facility] Jan 22, 2011 02:38 PM CURRENT TOBACCO USER [place] [facility] Mar 13, 2010 12:48 PM CURRENT TOBACCO USER [place] [facility] Advance Directives: All historical and current Section Date Range: From patient's date of to the date document was created. This section includes ALL of a patient's completed or amended NH Advance and Rescinded Directives. The entries below indicate that a directive exists for the patient, but an actual copy is not included with this document. The data comes from all NH facilities. Date Advance Directives Provider Source Feb 25, 2018 ADVANCE DIRECTIVE AURORA MORALES [facility] Feb 24, 2018 ADVANCE DIRECTIVE DISCUSSION AURORA MORALES [facility] May 26, 2017 CLINICAL WARNING ADVID CONTRERASDRNina Wood [facility] May 03, 2017 CLINICAL WARNING SARIAH ENGLE [facility] Aug 10, 2016 CLINICAL WARNING ISABEL BARCENAS [facility] Aug 02, 2016 CLINICAL WARNING AURORA ALMAZAN [facility] Encounter Notes: All associated encounter notes This section contains the clinical notes associated to the Encounter. Date/Time Encounter Note(s) Provider Source Jun 18, 2022 09:15 AM NONVA NOTE: TYSHAWN WILKES IS [facility] LOCAL TITLE: COMMUNITY CARE-ELZBIETA SELF PRESENTIN G CARE COORD PLAN STANDARD TITLE: NONVA NOTE DATE OF NOTE: JUN 18, 2022@09:15 ENTRY DATE: JUL 15, 2022@14:58:30 AUTHOR: TYSHAWN WILKES EXP COSIGNER: URGENCY: STATUS: COMPLETED COMMUNITY CARE-ELZBIETA SELF PRESENTING CARE CO ORD PLAN NOTE Has ADDENDA Emergency Notification Intake Date Presenting to the Facility: Jun Method of Contact: Notified from [employer] worklist Notification ID: [id number] [facility] Referral #: [facility] Name: Hospital: [facility] Address: City: [place] State: [place] Zip Code: Phone : [facility] Facility Point of Contact: Name: Anna Canas RN Chief complaint: C5-C7 FX W/CORD INJURY Primary Diagnosis: Disposition Discharged Date of discharge: Jun Discharge to home POM Review /mikal/ TYSHAWN WILKES Unloading Checker(AOD) Signed: 07/15/2022 15:00 Receipt Acknowledged By: 07/19/2022 10:41 /mikal/ PRANAY WOMACK RN REGISTERED NURSE 07/19/2022 ADDENDUM STATUS: COMPLETED This is a duplicate notification. Please see oth er COMMUNITY CARE-ELZBIETA SELF PRESENTING CARE COORD PLAN NOTE dated 06/18/22 /es/ PRANAY R. VU RN REGISTERED NURSE Signed: 07/19/2022 10:42
--- OUTSIDE RECORDS SUMMARY | 2022-07-22 15:18 | XMS_ITS | Encounter Summary ---
:1950 Author Organization Department [facility] Address [address] [place] [address] Support Name Relationship Address Phone MADELIN MANTILLA Unavailable [address] [phone] [place] [address] MADELIN MANTILLA Unavailable [address] [phone] [place] [address] DHAVAL MANTILLA Unavailable [address] [place] [address] Insurance Providers: All historical and current Section [...] MEDICARE MEDICARE PART Jul 18, PART B [id number] ANNALEE BRYANIENT (WNR) (M) B 2014A [phone] ,REGI MEDICARE MEDICARE PART Apr 17, PART A [id number] ANNALEE BRYANIENT (WNR) (M) A 2012A [phone] ,REGI Selected Encounter This section includes the information on record at [place] for the Encounter. Date/Time Encounter Type Encounter Description Reason Provider Source Jul 04, 2022 01:15 Outpatient Encounter TELEPHONE TRIAGE PM IHE Encounter Template Text not used [...] 20 appointments. The data comes from all [place] treatment facilities. Appointment Date/Time Appointment Type Appointment Facili ty Name Jul 15, 2022 02:49 PM AMBULATORY - NONE [facility] Jul 16, 2022 12:20 PM AMBULATORY - NONE [facility] Jul 17, 2022 10:22 PM AMBULATORY - NONE [facility] Jul 19, 2022 07:00 AM AMBULATORY - NONE [facility] Jul 19, 2022 08:00 AM AMBULATORY - MEDICINE [facility] Jul 19, 2022 09:00 AM AMBULATORY - MEDICINE [facility] Jul 24, 2022 11:00 AM AMBULATORY - MEDICINE [facility] Jul 25, 2022 09:00 AM AMBULATORY - NONE [facility] Jul 25, 2022 10:30 AM AMBULATORY - NONE [facility] Jul 25, 2022 11:00 AM AMBULATORY - SURGERY [facility] Jul 25, 2022 12:30 PM AMBULATORY - NONE [facility] Aug 05, 2022 11:00 AM AMBULATORY - NONE [facility] Aug 06, 2022 10:00 AM AMBULATORY - SURGERY [facility] Oct 21, 2022 03:00 PM AMBULATORY - SURGERY [facility] Nov 20, 2022 10:30 AM AMBULATORY - MEDICINE [facility] Nov 20, 2022 11:00 AM AMBULATORY - MEDICINE [facility] Nov 20, 2022 11:30 AM AMBULATORY - MEDICINE [facility] Active, Pending, and Scheduled Orders This section [...] data comes from all [place] treatment facilities. Test Date/Time Test Type Test Details Facility Name Jun 24, 2022 06:55 PM Laboratory - Chemistry EXTRA BLUE TUBE SHELLI [facility] Order WC Jun 24, 2022 06:55 PM Laboratory - Chemistry EXTRA PURPLE TUBE B LOOD [facility] Order WC Jun 24, 2022 06:55 PM Laboratory - Chemistry EXTRA GOLD GEL TUBE [facility] Order SERUM WC Jun 24, 2022 06:55 PM Laboratory - Chemistry EXTRA MINT TUBE SHELLI [facility] Order WC Jun 28, 2022 04:57 PM Consult Order NEUROSURGERY OUTPT [place] [facility] Care Management Associate's Choice Jun 28, 2022 05:00 PM Consult Order UROLOGY OUTPT Cons [place] [facility] Care Management Associate's Choice Jul 25, 2022 10:30 AM Imaging - General CERVICAL SPINE 4 OR 5 [place] [facility] Radiology Order VIEWS Lab Results: +/- [...] Interpretation Reference Range Comment Jul 19, 2022 [facility] RHEUMATOLOGY CHEM PANEL Spec imen Type: PLASMA 08:08 AM No comment enter ed. Ordering Provid er: JENNA LUIS Report Released Date/Time: Jan 11, 2022 11:04 AM Reporting Lab: [facility] [address] Performing Lab: [facility] [address] CREATININE 1.5 H 0.7-1.2 ALKALINE PHOSPHATASE 72 40-150 ALT/SGPT 12 <55 AST/SGOT 11 <34 C-REACTIVE PROTEIN 5.28 H <5.00 CREAT EGFR(CKD-EPI) 49 L >60 Jul 19, 2022 [facility] RHEUMATOLOGY HEME PANEL Spec imen Type: BLOOD 08:08 AM No comment enter ed. Ordering Provid er: JENNA LUIS Report Released Date/Time: Jan 11, 2022 11:04 AM Reporting Lab: [facility] [address] Performing Lab: [facility] [address] WBC 13.17 H 4.0-11.0 RBC 3.21 L [...] H 5-15 Jun 24, 2022 09:29 PM [facility] URINALYSIS Specim en Type: URINE No comment enter ed. Ordering Provid er: JAYDE MENDOZA Report Released Date/Time: Jun 24, 2022 06:55 PM Reporting Lab: [facility] [address] Performing Lab: [facility] [address] URINE COLOR YELLOW SPECIFIC GRAVITY 1.039 H [...] 2022 08:09 PM Reporting Lab: [facility] [address] Performing Lab: [facility] [address] AST/SGOT 19 <34 Jun 24, 2022 08:24 PM [facility] POTASSIUM Specim en Type: PLASMA No comment enter ed. Ordering Provid er: JAYDE MENDOZA Report Released Date/Time: Jun 24, 2022 08:09 PM Reporting Lab: [facility] [address] Performing Lab: [facility] [address] POTASSIUM 4.9 3.5-5.1 Jun 24, 2022 08:24 PM [facility] PROTEIN,TOTAL Specim en Type: PLASMA No comment enter ed. Ordering Provid er: JAYDE MENDOZA Report Released Date/Time: Jun 24, 2022 08:09 PM Reporting Lab: [facility] [address] Performing Lab: [facility] [address] PROTEIN,TOTAL 6.8 6.0-8.3 Jun 24, 2022 07:40 [facility] PROTHROMBIN TIME/INR Spec imen Type: PLASMA PM No comment enter ed. Ordering Provid er: JAYDE MENDOZA Report Released Date/Time: Jun 24, 2022 06:55 PM Reporting Lab: [facility] [address] Performing Lab: [facility] [address] .INR 1.1 0.8-1.1 .PT 12.1 9.4-12.5 Jun 24, 2022 07:32 [facility] COVID-19 DIAGNOSTIC Speci men Type: NASOPHARYNGEAL PM PANEL (CEPHEID) Comment: Bryan rodriguez GeneXpert (618) Ordering Provid er: JAYDE MENDOZA Report Released Date/Time: Jun 24, 2022 06:55 PM Reporting Lab: [facility] [address] Performing Lab: [facility] [address] COVID-19 (CEPHEID) Not Detected Not Dete cted Jun 24, 2022 [facility] COMPREHENSIVE METABOLIC Spec imen Type: PLASMA 07:29 PM PANEL+MG Comment: Cancel lation reported to: Rajni Giraldo RN on 06/24/22@2004 by [place]. Test result cancelled due to hemolysis interference in sample. Ordering Provid er: JAYDE MENDOZA Report Released Date/Time: Jun 24, 2022 06:55 PM Reporting Lab: [facility] [address] Performing Lab: [facility] [address] CREATININE 1.3 H 0.7-1.2 UREA NITROGEN 19 [...] PM Reporting Lab: [facility] [address] Performing Lab: [facility] [address] WBC 9.67 4.0-11.0 RBC 3.36 L 4.6-6.2 [...] 2022 01:30 PM [place]-TOBACCO [facility]ER [facility] Tobacco Use History This section includes a history of the smoking, or tobacco- related health factors, that were collected on or before the date of the Encounter. The data comes from the [facility] where the Encounter took place. Date/Time Smoking Status/Tobacco Use Comment Facil ity Mar 05, 2022 01:30 PM VA-TOBACCO QUIT 1 TO < 5 YRS [facility] Jun 01, 2021 02:00 PM [place]-TOBACCO NEVER USED [place] [facility] Dec 31, 2019 10:54 AM VA-TOBACCO FORMER USER [facility] Dec 31, 2019 10:54 AM VA-TOBACCO QUIT < 1 YEAR [place] [facility] March 23, 2019 09:53 AM VA-TOBACCO FORMER USER [facility] March 23, 2019 09:53 AM VA-TOBACCO QUIT < 1 YEAR [place] [facility] [facility] Jun 10, 2018 10:00 AM CURRENT TOBACCO USER [place] [facility] May 10, 2018 07:27 PM INPT TOBACCO COUNSELING [place] [facility] May 10, 2018 07:27 PM INPT TOBACCO USER [place] [facility] Aug 29, 2017 09:55 AM FORMER TOBACCO USE <1Y [facility] May 26, 2017 10:51 PM INPT TOBACCO COUNSELING [place] [facility] [facility] May 26, 2017 10:51 PM INPT TOBACCO USER [place] [facility] May 03, 2017 09:34 PM INPT TOBACCO COUNSELING [place] [facility] [facility] May 03, 2017 09:34 PM INPT TOBACCO USER [place] [facility] Sep 18, 2016 01:36 PM FORMER TOBACCO USE <1Y [facility] Aug 10, 2016 03:54 PM INPT TOBACCO USE - PT REFUSED [facility] Aug 01, 2016 06:48 PM INPT TOBACCO COUNSELING [place] [facility] [facility] Aug 01, 2016 06:48 PM INPT TOBACCO USER [place] [facility] Feb 08, 2015 09:57 AM CURRENT TOBACCO USER [place] [facility] Nov 29, 2013 10:37 AM CURRENT TOBACCO USER [place] [facility] Nov 26, 2013 11:09 AM PATIENT IS TOBACCO USER [place] [facility] Nov 27, 2012 12:12 PM CURRENT TOBACCO USER [place] [facility] Dec 27, 2011 09:44 AM CURRENT TOBACCO USER [place] [facility] [facility] Jan 22, 2011 02:38 PM CURRENT TOBACCO USER [place] [facility] Mar 13, 2010 12:48 PM CURRENT TOBACCO USER [place] [facility] [facility] Advance Directives: All historical and current [...] [facility] May 26, 2017 CLINICAL WARNING DAVID CONTRERASDRE Nina [facility] May 03, 2017 CLINICAL WARNING SARIAH ENGLE [facility] Aug 10, 2016 CLINICAL WARNING ISABEL BARCENAS [facility] Aug 02, 2016 CLINICAL WARNING [facility] Encounter Notes: All associated encounter notes This section contains the clinical notes associated to the Encounter. Date/Time Encounter Note(s) Provider Source Jul 04, 2022 01:15 PM REPORT OF CONTACT: RADHA TOWNSEND [facility] LOCAL TITLE: PATIENT CONTACT NOTE STANDARD TITLE: REPORT OF CONTACT DATE OF NOTE: JUL 04, 2022@13:15 ENTRY DATE: JUL 04, 2022@13:15:07 AUTHOR: RADHA TOWNSEND EXP COSIGNER: URGENCY: STATUS: COMPLETED PATIENT CONTACT NOTE Has ADDENDA [facility] Call Center Phone number verified as correct. [phone] Ra Moody, from [facility], called requesting ve rbal order for PRN visits in case they need to return to assit with catheter. /mikal/ RADHA TOWNSEND VSN 23 [facility] AMSA Signed: 07/04/2022 13:16 Receipt Acknowledged By: 07/04/2022 14:48 /mikal/ STUART BERNSTEIN RN REGISTERED NURSE for HERI SWANSON APARNA 07/04/2022 ADDENDUM STATUS: COMPLETED I lft msg giving verbal order for 4 PRN visits/m ont for catheter care. /mikal/ STUART BERNSTEIN RN REGISTERED NURSE Signed: 07/04/2022 14:49
--- OUTSIDE RECORDS SUMMARY | 2022-07-22 15:18 | XMS_ITS | Encounter Summary ---
:1950 Author Organization [facility] Address [address] [place] [address] Support Name Relationship Address Phone MADELIN MANTILLA Unavailable [phone] [place] [address] MADELIN MANTILLA Unavailable [address] [phone] [place] [address] DHAVAL MANTILLA Unavailable [address] [place] [address] Insurance Providers: All historical and current Section [...] MEDICARE MEDICARE PART Jul 18, PART B [id number] 800 ANNALEE BUSTILLO (WNR) (M) B 2014 24A [phone] ,REGI MEDICARE MEDICARE PART Apr 17, PART A [id number] 800 ANNALEE BUSTILLO (WNR) (M) A 2012A [phone] ,REGI Selected Encounter This section includes the information on record at [place] for the Encounter. Date/Time Encounter Type Encounter Description Reason Provider Source Jun 18, 2022 12:00 Outpatient Encounter ADMIN [facility] AM (MASNONCT) IHE Encounter Template Text not used by [place] Plan of Treatment: Future Appointments (+ 6 [...] The data comes from all [place] treatment [facility]. Appointment Date/Time Appointment Type Appointment Facili ty Name Jun 19, 2022 01:15 PM AMBULATORY - NONE [facility] Jun 24, 2022 05:53 PM AMBULATORY - MEDICINE [facility] Jul 15, 2022 02:49 PM AMBULATORY - NONE [facility] Jul 16, 2022 12:20 PM AMBULATORY - NONE [facility] Jul 17, 2022 10:22 PM AMBULATORY - NONE [facility] Jul 19, 2022 07:00 AM AMBULATORY - NONE [facility] Jul 19, 2022 08:00 AM AMBULATORY - MEDICINE [facility] Jul 19, 2022 09:00 AM AMBULATORY - MEDICINE [facility] CS Jul 24, 2022 11:00 AM AMBULATORY - MEDICINE [facility] Jul 25, 2022 09:00 AM AMBULATORY - NONE [facility] Jul 25, 2022 10:30 AM AMBULATORY - NONE [facility] Jul 25, 2022 11:00 AM AMBULATORY - SURGERY [facility] Jul 25, 2022 12:30 PM AMBULATORY - NONE [facility] Aug 05, 2022 11:00 AM AMBULATORY - NONE [facility] Aug 06, 2022 10:00 AM AMBULATORY - SURGERY [facility] Oct 21, 2022 03:00 PM AMBULATORY - SURGERY [facility] S Nov 20, 2022 10:30 AM AMBULATORY - MEDICINE [facility] CS Nov 20, 2022 11:00 AM AMBULATORY - MEDICINE [facility] CS Nov 20, 2022 11:30 AM [...] The data comes from all [place] treatment [facility]. Test Date/Time Test Type Test Details Facility Name May 15, 2022 12:00 Laboratory - COVID-19 AND FLU/RSV DIAG [facility] AM Chemistry Order PANEL(CEPHEID) NASOPHARYNGEAL SWAB STAT WC ONCE Jun 24, 2022 06:55 Laboratory - EXTRA BLUE TUBE PLASMA WC [facility] PM Chemistry Order Jun 24, 2022 06:55 Laboratory - EXTRA GOLD GEL TUBE SERUM [facility] PM Chemistry Order WC Jun 24, 2022 06:55 Laboratory - EXTRA PURPLE TUBE BLOOD [place] [facility] PM Chemistry Order WC Jun 24, 2022 06:55 Laboratory - EXTRA MINT TUBE PLASMA WC [place] [facility] PM Chemistry Order Jun 28, 2022 04:57 Consult Order NEUROSURGERY OUTPT Cons LAWSON ADAME [facility] PM Stick Roller's Choice Jun 28, 2022 05:00 Consult Order UROLOGY OUTPT Cons ZEINAB Merlos [facility] PM Stick Roller's Choice Jul 25, 2022 10:30 Imaging - General CERVICAL SPINE 4 OR 5 [facility] AM Radiology Order VIEWS Lab Results: +/- 30 days of the encounter This section includes the Chemistry and Hematology Lab Results on record with [place] for the patient. Radiology Reports and Pathology Reports are provided separately, in subsequent sections.Lab Results This section contains the Chemistry/Hematology Results that were resulted 30 days before or 30 daysafter the date of the Encounter. Date/Time Source Result Type Result - Unit Interpretation Reference Range Comment Jun 24, 2022 09:29 PM [facility] URINALYSIS Specim en Type: URINE No comment enter ed. Ordering Provid er: JYADE MENDOZA Report Released Date/Time: Jun 24, 2022 06:55 PM Reporting Lab: [facility] [address] [facility] [address] Performing Lab: [facility] [address] [facility] [address] URINE COLOR YELLOW SPECIFIC GRAVITY 1.039 H [...] 25 NEGATIVE Jun 24, 2022 08:24 PM [facility] AST/SGOT Specim en Type: PLASMA No comment enter ed. Ordering Provid er: JAYDE MENDOZA Report Released Date/Time: Jun 24, 2022 08:09 PM Reporting Lab: [facility] [address] [facility] [address] Performing Lab: [facility] [address] [facility] [address] AST/SGOT 19 <34 Jun 24, 2022 08:24 PM [facility] POTASSIUM Specim en Type: PLASMA No comment enter ed. Ordering Provid er: JAYDE MENDOZA Report Released Date/Time: Jun 24, 2022 08:09 PM Reporting Lab: [facility] [address] [facility] [address] Performing Lab: [facility] [address] [facility] [address] POTASSIUM 4.9 3.5-5.1 Jun 24, 2022 08:24 PM [facility] PROTEIN,TOTAL Specim en Type: PLASMA No comment enter ed. Ordering Provid er: JAYDE MENDOZA Report Released Date/Time: Jun 24, 2022 08:09 PM Reporting Lab: [facility] [address] [facility] [address] Performing Lab: [facility] [address] [facility] [address] PROTEIN,TOTAL 6.8 6.0-8.3 Jun 24, 2022 07:40 [facility] PROTHROMBIN TIME/INR Spec imen Type: PLASMA PM No comment enter ed. Ordering Provid er: JAYDE MENDOZA Report Released Date/Time: Jun 24, 2022 06:55 PM Reporting Lab: [facility] [address] [facility] [address] Performing Lab: [facility] [address] [facility] [address] .INR 1.1 0.8-1.1 .PT 12.1 9.4-12.5 Jun 24, 2022 07:32 [facility] COVID-19 DIAGNOSTIC Speci men Type: NASOPHARYNGEAL PM PANEL (CEPHEID) Comment: Bryan rodriguez GeneXpert (618) Ordering Provid er: JAYDE MENDOZA Report Released Date/Time: Jun 24, 2022 06:55 PM Reporting Lab: [facility] [address] [facility] [address] Performing Lab: [facility] [address] [facility] [address] COVID-19 (CEPHEID) Not Detected Not Dete cted Jun 24, 2022 [facility] COMPREHENSIVE METABOLIC Spec imen Type: PLASMA 07:29 PM PANEL+MG Comment: Cancel lation reported to: Rajni Giraldo RN on 06/24/22@2004 by Test result cancelled due to hemolysis interference in sample. Ordering Provid er: JAYDE MENDOZA Report Released Date/Time: Jun 24, 2022 06:55 PM Reporting Lab: [facility] [address] Performing Lab: [facility] [address] CREATININE 1.3 H 0.7-1.2 UREA NITROGEN 19 [...] L >60 Jun 24, 2022 07:29 PM [facility] CBC & DIFF Specim en Type: BLOOD Comment: [place]um[place] d Platelets. Invitro artefact. No clinical significance. Platelet count may be higher than stated value. Plt count = 214 K-cmm Manual Differential Performed Ordering Provid er: JAYDE MENDOZA Report Released Date/Time: Jun 24, 2022 06:55 PM Reporting Lab: [facility] [address] Performing Lab: [facility] [address] WBC 9.67 4.0-11.0 RBC 3.36 L 4.6-6.2 [...] smoking and tobacco-related health factors from the [place] facility where the Encounter took place.Current Smoking Status This section includes the most current smoking, or tobacco-related health factor, from the [place] facility where the Encounter took place. Date/Time Current Smoking Status Comment Facility Mar 05, 2022 01:30 PM VA-TOBACCO FORMER USER [facility] Tobacco Use History This section includes a history of the smoking, or tobacco- related health factors, that were collected on or before the date of the Encounter. The data comes from the [place] facility where the Encounter took place. Date/Time Smoking Status/Tobacco Use Comment [facility] it Mar 05, 2022 01:30 PM VA-TOBACCO QUIT 1 TO < 5 YRS [facility] Jun 01, 2021 02:00 PM VA-TOBACCO NEVER USED [facility] Dec 31, 2019 10:54 AM VA-TOBACCO FORMER USER [facility] Dec 31, 2019 10:54 AM [place]-TOBACCO QUIT < 1 YEAR [facility] March 23, 2019 09:53 AM VA-TOBACCO FORMER USER [facility] March 23, 2019 09:53 AM VA-TOBACCO QUIT < 1 YEAR [facility] Jun 10, 2018 10:00 AM CURRENT TOBACCO USER [facility] May 10, 2018 07:27 PM INPT TOBACCO COUNSELING [facility] May 10, 2018 07:27 PM INPT TOBACCO [facility] Aug 29, 2017 09:55 AM FORMER TOBACCO USE <1Y [facility] May 26, 2017 10:51 PM [facility]AC[facility] May 26, 2017 10:51 PM INPT TOBACCO US[facility] May 03, 2017 09:34 PM [facility]PT [facility]ACCO COUNSELING [facility] May 03, 2017 09:34 PM INPT TOBACCO USER [facility] Sep 18, 2016 01:36 PM FORMER TOBACCO USE <1Y [facility] Aug 10, 2016 03:54 PM INPT TOBACCO USE - PT REFUSED [facility] Aug 01, 2016 06:48 PM [facility]PT [facility]BACCO COUNSELING [facility] Aug 01, 2016 06:48 PM INPT TOBACCO USER [facility] Feb 08, 2015 09:57 AM CURRENT TOBACCO USER [place] [facility] Nov 29, 2013 10:37 AM CURRENT TOBACCO USER [facility] Nov 26, 2013 11:09 AM PATIENT IS TOBACCO USER ANAID GARCIA [facility] Nov 27, 2012 12:12 PM CURRENT TOBACCO USER [facility] Dec 27, 2011 09:44 AM CURRENT TOBACCO USER [facility] Jan 22, 2011 02:38 PM [...] Feb 25, 2018 ADVANCE DIRECTIVE [facility] Feb 24, 2018 ADVANCE DIRECTIVE DISCUSSION [facility] May 26, 2017 CLINICAL WARNING MAGO CONTRERAS [facility] May 03, 2017 CLINICAL WARNING SARIAH ENGLE [facility] Aug 10, 2016 CLINICAL WARNING ISABEL BARCENAS [facility] Aug 02, 2016 CLINICAL WARNING [facility] Encounter Notes: All associated encounter notes This section contains the clinical notes associated to the Encounter. Date/Time Encounter Note(s) Provider Source Jun 18, 2022 12:00 AM [facility] TITLE: HOSPITALIZATION PRIVATE NONVA NOTE STANDARD TITLE: NONVA NOTE DATE OF NOTE: JUN 18, 2022 ENTRY DATE: JUL 05 022@13:32:07 AUTHOR: LISETTE BERRIOS EXP COSIGNER: URGENCY: STATUS: COMPLETED VistA Imaging - Scanned Document This note contains attached HOSPITALIZATION PRIV ATE scanned document(s) received from an outside facility. Open [place] [facility] Display to review the documen t(s). /mikal/ LISETTE BERRIOS Combiner Operator - HIT Signed: 07/05/2022 13:32 Jun 18, 2022 12:00 AM [facility] T[facility]: HOSPITALIZATION PRIVATE NONVA NOTE STANDARD TITLE: NONVA NOTE DATE OF NOTE: JUN 18, 2022 ENTRY DATE: JUL 08 022@09:18:16 AUTHOR: LISETTE BERRIOS EXP COSIGNER: URGENCY: STATUS: COMPLETED VistA Imaging - Scanned Document This note contains attached HOSPITALIZATION PRIV ATE scanned document(s) received from an outside facility. Open [place] [facility] Display to review the documen t(s). /mikal/ LISETTE BERRIOS Combiner Operator - HIT Signed: 07/08/2022 09:18
--- OUTSIDE RECORDS SUMMARY | 2022-07-22 15:19 | XMS_ITS | Encounter Summary ---
:1950 Author Organization [facility] Address [address] [place] [address] Support Name Relationship Address Phone MADELIN MANTILLA Unavailable [phone] [place] [address] MADELIN MANTILLA Unavailable [phone] [place] [address] DHAVAL MANTILLA Unavailable [address] [place] [address] Insurance Providers: All historical and current Section [...] MEDICARE MEDICARE PART Jul 18, PART B [id number] ANNALEE BRYANIENT (WNR) (M) B [id number] [phone] ,REGI MEDICARE MEDICARE PART Apr 17, PART A [id number] ANNALEE BRYANIENT (WNR) (M) A [id number] [phone] ,REGI Selected Encounter This section includes the information on record at [place] for the Encounter. Date/Time Encounter Type Encounter Reason Provider Source Description Jul 16, 2022 09:45 Outpatient TELEPHONE TRIAGE BLANCA TAYLOR AM Encounter I[facility] Encounter Template Text not used by [place] Plan of Treatment: Future Appointments (+ 6 [...] 20 appointments. The data comes from all [place] treatment facilities. Appointment Date/Time Appointment Type Appointment Facili ty Name Jul 17, 2022 10:22 PM AMBULATORY - NONE [facility] Jul 19, 2022 07:00 AM AMBULATORY - NONE [facility] Jul 19, 2022 08:00 AM AMBULATORY - MEDICINE [facility] Jul 19, 2022 09:00 AM AMBULATORY - MEDICINE [facility] Jul 24, 2022 11:00 AM AMBULATORY - MEDICINE [facility] Jul 25, 2022 09:00 AM AMBULATORY - NONE [facility] Jul 25, 2022 10:30 AM AMBULATORY - NONE [facility] Jul 25, 2022 11:00 AM AMBULATORY - SURGERY [facility] Jul 25, 2022 12:30 PM AMBULATORY - NONE [facility] Aug 05, 2022 11:00 AM AMBULATORY - NONE [facility] Aug 06, 2022 10:00 AM AMBULATORY - SURGERY [facility] Oct 21, 2022 03:00 PM AMBULATORY - SURGERY [facility] Nov 20, 2022 10:30 AM AMBULATORY - MEDICINE [facility] Nov 20, 2022 11:00 AM AMBULATORY - MEDICINE [facility] Nov 20, 2022 11:30 AM AMBULATORY - MEDICINE [place] [...] the Encounter. The data comes from all [place] treatment facilities. Test Date/Time Test Type Test Details Facility Name Jun 24, 2022 06:55 PM Laboratory - Chemistry EXTRA BLUE TUBE [facility] Order Jun 24, 2022 06:55 PM Laboratory - Chemistry EXTRA GOLD GEL TUBE [facility] Order SERUM Jun 24, 2022 06:55 PM Laboratory - Chemistry EXTRA PURPLE TUBE B LOOD [facility] Order WC Jun 24, 2022 06:55 PM Laboratory - Chemistry EXTRA MINT TUBE [facility] Order WC Jun 28, 2022 04:57 PM Consult Order NEUROSURG[place]PT [place] [facility] Real Estate Intern's Choice Jun 28, 2022 05:00 PM Consult Order UROLOGY OUTPT [place] [facility] Real Estate Intern's Choice Jul 25, 2022 10:30 AM Imaging - General CERVICAL SPINE 4 OR 5 [place] [facility] Radiology Order VIEWS Lab Results: +/- [...] Interpretation Reference Range Comment Jul 19, 2022 [facility] RHEUMATOLOGY CHEM PANEL Spec imen Type: PLASMA 08:08 AM No comment enter ed. Ordering Provid er: JENNA LUIS Report Released Date/Time: Jan 11, 2022 11:04 AM Reporting Lab: [facility] [place] [address] Performing Lab: [facility] [place] [address] CREATININE 1.5 H 0.7-1.2 ALKALINE PHOSPHATASE 72 40-150 ALT/SGPT 12 <55 AST/SGOT 11 <34 C-REACTIVE PROTEIN 5.28 H <5.00 CREAT EGFR(CKD-EPI) 49 L >60 Jul 19, 2022 [facility] RHEUMATOLOGY HEME PANEL Spec imen Type: BLOOD 08:08 AM No comment enter ed. Ordering Provid er: JENNA LUIS Report Released Date/Time: Jan 11, 2022 11:04 AM Reporting Lab: [facility] [place] [address] Performing Lab: [facility] [place] [address] WBC 13.17 H 4.0-11.0 RBC 3.21 L [...] H 5-15 Jun 24, 2022 09:29 PM [facility] URINALYSIS Specim en Type: URINE No comment enter ed. Ordering Provid er: JAYDE MENDOZA Report Released Date/Time: Jun 24, 2022 06:55 PM Reporting Lab: [facility] [address] Performing Lab: [facility] [place] [address] URINE COLOR YELLOW SPECIFIC GRAVITY 1.039 H [...] Lab: [facility] [address] Performing Lab: [facility] [address] [facility] [address] AST/SGOT 19 <34 Jun 24, 2022 08:24 PM [facility] POTASSIUM Specim en Type: PLASMA No comment enter ed. Ordering Provid er: JAYDE MENDOZA Report Released Date/Time: Jun 24, 2022 08:09 PM Reporting Lab: [facility] [address] [facility] [address] Performing Lab: [facility] [address] [facility] [address] POTASSIUM 4.9 3.5-5.1 Jun 24, 2022 08:24 PM [facility] PROTEIN,TOTAL Specim en Type: PLASMA No comment enter ed. Ordering Provid er: JAYDE MENDOZA Report Released Date/Time: Jun 24, 2022 08:09 PM Reporting Lab: [facility] [address] [facility] [address] Performing Lab: [facility] [address] [facility] [address] PROTEIN,TOTAL 6.8 6.0-8.3 Jun 24, 2022 07:40 [facility] PROTHROMBIN TIME/INR Spec imen Type: PLASMA PM No comment enter ed. Ordering Provid er: JAYDE MENDOZA Report Released Date/Time: Jun 24, 2022 06:55 PM Reporting Lab: [facility] [address] Performing Lab: [facility] [address] .INR 1.1 0.8-1.1 .PT 12.1 9.4-12.5 Jun 24, 2022 07:32 [facility] COVID-19 DIAGNOSTIC Speci men Type: NASOPHARYNGEAL PM PANEL (CEPHEID) Comment: Cephei d GeneXpert (618) Ordering Provid er: JAYDE MENDOZA Report Released Date/Time: Jun 24, 2022 06:55 PM Reporting Lab: [facility] [address] Performing Lab: [facility] [place] [address] COVID-19 (CEPHEID) Not Detected Not Dete cted Jun 24, 2022 [facility] COMPREHENSIVE METABOLIC Spec imen Type: PLASMA 07:29 PM PANEL+MG Comment: Cancel lation reported to: Rajni Giraldo RN on 06/24/22@2003 by [place]. Test result cancelled due to hemolysis interference in sample. Ordering Provid er: JAYDE MENDOZA Report Released Date/Time: Jun 24, 2022 06:55 PM Reporting Lab: [facility] [address] Performing Lab: [facility] [place] [address] CREATININE 1.3 H 0.7-1.2 UREA NITROGEN 19 [...] Jun 24, 2022 06:55 PM Reporting Lab: [facility] [place] [address] Performing Lab: [facility] [place] [address] WBC 9.67 4.0-11.0 RBC 3.36 L 4.6-6.2 [...] smoking and tobacco-related health factors from the [facility] where the Encounter took place.Current Smoking Status This section includes the most current smoking, or tobacco-related health factor, from the [place] facility where the Encounter took place. Date/Time Current Smoking Status Comment Facility Mar 05, 2022 01:30 PM [place] [facility] Tobacco Use History This section includes a history of the smoking, or tobacco- related health factors, that were collected on or before the date of the Encounter. The data comes from the [place] facility where the Encounter took place. Date/Time Smoking Status/Tobacco Use Comment Katherine gillis Mar 05, 2022 01:30 PM [place]-TOBACCO QUIT 1 TO < 5 YRS [facility] Jun 01, 2021 02:00 PM [place]-TO[place] NEVER USED [place] [facility] Dec 31, 2019 10:54 AM VA-TOBACCO FORMER USER [facility] Dec 31, 2019 10:54 AM [facility]-TOBACCO QUIT < [facility] March 23, 2019 09:53 AM VA-TOBACCO FORMER USER [facility] March 23, 2019 09:53 AM VA-TOBACCO QUIT < 1 YEAR [place] [facility] Jun 10, 2018 10:00 AM CURRENT TOBACCO USER [place] [facility] May 10, 2018 07:27 PM IN[place] TOBACCO COUNSELING [place] [facility] May 10, 2018 07:27 PM [place]AC[place] US[place] [facility] Aug 29, 2017 09:55 AM FORMER TOBACCO USE <1Y [facility] May 26, 2017 10:51 PM INPT TOBACCO COUNSELING [place] [facility] May 26, 2017 10:51 PM [place]AC[place] [facility] May 03, 2017 09:34 PM INPT TOBACCO COUNSELING [place] [facility] May 03, 2017 09:34 PM INPT [place]AC[place] US[place] [facility] Sep 18, 2016 01:36 PM FORMER TOBACCO USE <1Y [facility] Aug 10, 2016 03:54 PM INPT TOBACCO USE - PT REFUSED [facility] Aug 01, 2016 06:48 PM [facility] Aug 01, 2016 06:48 PM INPT TOBACCO USER [place] [facility] Feb 08, 2015 09:57 AM CURRENT TOBACCO USER [facility] Nov 29, 2013 10:37 AM CURRENT [facility] Nov 26, 2013 11:09 AM PATIENT IS TOBACCO USER [place] [facility] Nov 27, 2012 12:12 PM CURRENT TOBACCO USER [facility] Dec 27, 2011 09:44 AM CURRENT TOBACCO USER [facility] Jan 22, 2011 02:38 PM CURRENT TOBACCO USER [facility] Mar 13, 2010 12:48 PM CURRENT TOBACCO USER [facility] Advance Directives: All historical and current [...] [facility] CLINIC Aug 10, 2016 CLINICAL WARNING SWAPNAISABEL Brianda [facility] Aug 02, 2016 CLINICAL WARNING [facility] Encounter Notes: All associated encounter notes This section contains the clinical notes associated to the Encounter. Date/Time Encounter Note(s) Provider Source Jul 16, 2022 09:45 AM RN PROGRESS NOTE: REG TAYLOR [facility] LOCAL TITLE: CCC: CLINICAL TRIAGE STANDARD TITLE: RN PROGRESS NOTE DATE OF NOTE: JUL 16, 2022@09:45:17 ENTRY DATE: JUL 16, 2022@09:45:17 AUTHOR: REG TAYLOR EXP COSIGNER: URGENCY: STATUS: COMPLETED Patient Demographics Patient Name: REGI MANTILLA Patient Primary Address: [address] [place] [address]
[place] [address] Patient Primary Phone: [phone] Patient : 1950 SSN: [id number] Patient Age: 72 Caller Relationship: Self Emergency Contactx: MADELIN MANTILLA Emergency Contact Phonex: Triage Summary Nurse Summary: Clinical Contact/Call Center Jorge navirus Disease 2019 (COVID-19) Screen, francesca. March 2021 DIAGNOSIS AND TESTING STATUS: Has [place] been diagnosed with COVID-19: ( ) Yes Date: (continue screening) (x ) No (Continue Screening) Comment(s): Is [place] waiting for COVID-19 test results: ( ) Yes (Continue Screening) (x ) No (Continue Screening) Comment: SCREEN: Signs and Symptoms: a. Fever or chills: ( ) Yes Check all that apply: ( ) Fever ( ) Chills ( x) No Comment(s): b. New or worsening cough or shortness of breat h: ( ) Yes Check all that apply: ( ) Cough ( ) Shortness of breath (Dyspnea) (x ) No Comment(s): c. Any cold or flu-like symptoms: ( ) Yes Check all that apply: ( ) Cold like symptoms ( ) Runny Nose (Rhinorrhea) ( ) Sore Throat ( ) Flu-like symptoms ( ) Fatigue ( ) Muscle Pain (Myalgia) (x ) No Comment(s): d. New onset diarrhea, nausea or vomiting: ( ) Yes Check all that apply: ( ) Diarrhea ( ) Nausea ( ) Vomiting (x ) No Comment(s): e. New onset headache, loss of taste or loss of smell ( ) Yes Check all that apply: ( ) Headache ( ) Loss of taste ( ) Loss of smell (x ) No Comment(s): EXPOSURE: Exposure (within 6 feet for more than 15 minutes) in the last two weeks (14 days) to someone with known or suspect ed case of COVID-19: ( ) Yes (x ) No Comment(s): SCREEN RESULT: Any symptom or exposure= positiv e screen ( ) POSITIVE SCREEN: Patient has a Positive sym ptom and/or exposure. Follow-up required. (x ) Negative Screen * NURSES NOTES PATIENT CONCERN/DURATION/ONSET: [facility] with [place] [phone] with in the background repo rts that the did not have a good night last night. C/O feeling short of breath and feeling like he had a lump in his throat. Denied any chest pain. BP is 158/80 O2 sats 83-90% now. stood up c/o pain all over and sats decreased to 80%. Triage halted due to symptom severity and N to call 911. WHAT HAS PATIENT TRIED TO TREAT THE SYMPTOMS: No ne HISTORY/PREVIOUS TREATMENT: HTN, HLD, anemia, GE RD, CAD, acute non-ST segment [place], chronic kidney disease, atrial fibrillation on Apixaban. WHAT IS PATIENT GOAL FOR THE CALL: Evaluation/tr eatment DID YOU CONSIDER USING Care Now Team (TELE or VV C): No, 911 advised. SOLUTIONS EXECUTIVE SECURITY DISPOSITION: Triage recommendation is to call 911 for evaluation and transport to the ER. /caller agreeable to plan of care. . Vete ran/caller verbalizes understanding of education and plan of care. Best contact for veterans [facility] is [phone](Ve rified). (Caller could accurately sum marize the agreed upon plan of care as discussed in the education log portion of this note.) Per policy, automated recommendations for an ?ap pointment? indicates an interaction (virtual or in-person) with the care team. 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
--- OUTSIDE RECORDS SUMMARY | 2022-07-22 15:19 | XMS_ITS | Encounter Summary ---
:1950 Author Organization [facility] Address [address] [place] [address] Support Name Relationship Address Phone MADELIN MANTILLA Unavailable [address] [phone] [place] [address] MADELIN MANTILLA Unavailable [address] [phone] [place] [address] DHAVAL MANTILLA Unavailable [address] [place] [address] Insurance Providers: All historical and current Section [...] MEDICARE MEDICARE PART Jul 18, PART B [id number] ANNALEE BUSTILLO (WNR) (M) B 2014 24A [phone] ,REGI MEDICARE MEDICARE PART Apr 17, PART A [id number] ANNALEE BUSTILLO (WNR) (M) A 2012A [id number] ,REGI Selected Encounter This section includes the information on record at [place] for the Encounter. Date/Time Encounter Type Encounter Reason Provider Source Description Jul 16, 2022 12:20 Outpatient ADMIN PAT ACTIVPRANAY MEDINA PM Encounter (MASNONCT) IHE Encounter Template Text [...] The data comes from all [place] treatment [facility]. Appointment Date/Time Appointment Type Appointment Facili ty Name Jul 17, 2022 10:22 PM AMBULATORY - NONE [facility] Jul 19, 2022 07:00 AM AMBULATORY - NONE [facility] Jul 19, 2022 08:00 AM AMBULATORY - MEDICINE [facility] Jul 19, 2022 09:00 AM AMBULATORY - MEDICINE [facility] Jul 24, 2022 11:00 AM AMBULATORY - MEDICINE [facility] Jul 25, 2022 09:00 AM AMBULATORY - NONE [facility] Jul 25, 2022 10:30 AM AMBULATORY - NONE [facility] Jul 25, 2022 11:00 AM AMBULATORY - SURGERY [facility] Jul 25, 2022 12:30 PM AMBULATORY - NONE [facility] Aug 05, 2022 11:00 AM AMBULATORY - NONE [facility] Aug 06, 2022 10:00 AM AMBULATORY - SURGERY [facility] Oct 21, 2022 03:00 PM AMBULATORY - SURGERY [facility] Nov 20, 2022 10:30 AM AMBULATORY - MEDICINE [facility] Nov 20, 2022 11:00 AM AMBULATORY - MEDICINE [facility] Nov 20, 2022 11:30 AM AMBULATORY - MEDICINE [facility] Active, Pending, and Scheduled Orders [...] The data comes from all [place] treatment [facility]. Test Date/Time Test Type Test Details Facility Name Jun 24, 2022 06:55 PM Laboratory - Chemistry EXTRA BLUE TUBE SHELLI [facility] Order Jun 24, 2022 06:55 PM Laboratory - Chemistry EXTRA GOLD GEL TUBE [facility] Order SERUM Jun 24, 2022 06:55 PM Laboratory - Chemistry EXTRA PURPLE TUBE B LOOD [facility] Order Jun 24, 2022 06:55 PM Laboratory - Chemistry EXTRA MINT TUBE [facility] Order Jun 28, 2022 04:57 PM Consult Order NEUROSURGERY OUTPT [place] [facility] Group Captain's Choice Jun 28, 2022 05:00 PM Consult Order UROLOGY OUTPT [place] [facility] Group Captain's Choice Jul 25, 2022 10:30 AM Imaging - General CERVICAL SPINE 4 OR 5 [place] [facility] Radiology Order VIEWS Lab [...] Interpretation Reference Range Comment Jul 19, 2022 [facility] RHEUMATOLOGY CHEM PANEL Spec imen Type: PLASMA 08:08 AM No comment enter ed. Ordering Provid er: JENNA LUIS Report Released Date/Time: Jan 11, 2022 11:04 AM Reporting Lab: [facility] [id number] Performing Lab: [facility] [address] CREATININE 1.5 H 0.7-1.2 ALKALINE PHOSPHATASE 72 40-150 ALT/SGPT 12 <55 AST/SGOT 11 <34 C-REACTIVE PROTEIN 5.28 H <5.00 CREAT EGFR(CKD-EPI) 49 L >60 Jul 19, 2022 [facility] RHEUMATOLOGY HEME PANEL Spec imen Type: BLOOD 08:08 AM No comment enter ed. Ordering Provid er: JENNA LUIS Report Released Date/Time: Jan 11, 2022 11:04 AM Reporting [facility] [address] Performing Lab: [facility] [address] WBC 13.17 H 4.0-11.0 RBC 3.21 L [...] H 5-15 Jun 24, 2022 09:29 PM [facility] URINALYSIS Specim en Type: URINE No comment enter ed. Ordering Provid er: JAYDE MENDOZA Report Released Date/Time: Jun 24, 2022 06:55 PM Reporting Lab: [facility] [address] [facility] [address] [facility] [address] Performing Lab: [facility] [address] URINE COLOR YELLOW SPECIFIC GRAVITY 1.039 H [...] 25 NEGATIVE Jun 24, 2022 08:24 PM [facility] AST/SGOT Specim en Type: PLASMA No comment enter ed. Ordering Provid er: JAYDE MENDOZA Report Released Date/Time: Jun 24, 2022 08:09 PM Reporting Lab: [facility] [address] [facility] [address] Performing Lab: [facility] [address] [facility] [address] AST/SGOT 19 <34 Jun 24, 2022 08:24 PM [facility] POTASSIUM Specim en Type: PLASMA No comment enter ed. Ordering Provid er: JAYDE MENDOZA Report Released Date/Time: Jun 24, 2022 08:09 PM Reporting Lab: [facility] [address] [facility] [address] Performing Lab: [facility] [address] [facility] [address] POTASSIUM 4.9 3.5-5.1 Jun 24, 2022 08:24 PM [facility] PROTEIN,TOTAL Specim en Type: PLASMA No comment enter ed. Ordering Provid er: JAYDE MENDOZA Report Released Date/Time: Jun 24, 2022 08:09 PM Reporting Lab: [facility] [address] [facility] [address] Performing Lab: [facility] [address] [facility] [address] PROTEIN,TOTAL 6.8 6.0-8.3 Jun 24, 2022 07:40 [facility] PROTHROMBIN TIME/INR Spec imen Type: PLASMA PM No comment enter ed. Ordering Provid er: JAYDE MENDOZA Report Released Date/Time: Jun 24, 2022 06:55 PM Reporting Lab: [facility] [address] [facility] [address] Performing Lab: [facility] [address] [facility] [address] .INR 1.1 0.8-1.1 .PT 12.1 9.4-12.5 Jun 24, 2022 07:32 [facility] COVID-19 DIAGNOSTIC Speci men Type: NASOPHARYNGEAL PM PANEL (CEPHEID) Comment: Cepheyanira rodriguez GeneXpert (618) Ordering Provid er: JAYDE MENDOZA Report Released Date/Time: Jun 24, 2022 06:55 PM Reporting Lab: [facility] [address] [facility] [address] Performing Lab: [facility] [address] [facility] [address] COVID-19 (CEPHEID) Not Detected Not Dete cted Jun 24, 2022 [facility] COMPREHENSIVE METABOLIC Spec imen Type: PLASMA 07:29 PM PANEL+MG Comment: Cancel lation reported to: Rajni Giraldo RN on 06/24/22@2004 by [place]. Test result cancelled due to hemolysis interference in sample. Ordering Provid er: JAYDE MENDOZA Report Released Date/Time: Jun 24, 2022 06:55 PM Reporting Lab: [facility] [address] [facility] [address] Performing Lab: [facility] [address] [facility] [address] CREATININE 1.3 H 0.7-1.2 UREA NITROGEN 19 [...] L >60 Jun 24, 2022 07:29 PM [facility] CBC & DIFF Specim en Type: BLOOD Comment: Clumpe d Platelets. Invitro artefact. No clinical significance. Platelet count may be higher than stated value. Plt count = 214 K-cmm Manual Differential Performed Ordering Provid er: JAYDE MENDOZA Report Released Date/Time: Jun 24, 2022 06:55 PM Reporting Lab: [facility] [address] Performing Lab: [facility] [address] WBC 9.67 4.0-11.0 RBC 3.36 L 4.6-6.2 [...] 2022 01:30 PM VA-TOBACCO FORMER USER [place] [facility] Tobacco Use History This section includes a history of the smoking, or tobacco- related health factors, that were collected on or before the date of the Encounter. The data comes from the [facility] where the Encounter took place. Date/Time Smoking Status/Tobacco Use Comment Katherine tapia Mar 05, 2022 01:30 PM VA-TOBACCO QUIT 1 TO < 5 YRS [facility] Jun 01, 2021 02:00 PM VA-TOBACCO NEVER USED [place] [facility] Dec 31, 2019 10:54 AM VA-TOBACCO FORMER USER [facility] Dec 31, 2019 10:54 AM VA-TOBACCO QUIT < 1 YEAR [place] [facility] March 23, 2019 09:53 AM VA-TOBACCO FORMER USER [facility] March 23, 2019 09:53 AM VA-TOBACCO QUIT < 1 YEAR [place] [facility] Jun 10, 2018 10:00 AM CURRENT TOBACCO USER [place] [facility] May 10, 2018 07:27 PM INPT TOBACCO COUNSELING [place] [facility] May 10, 2018 07:27 PM INPT TOBACCO USER [place] [facility] Aug 29, 2017 09:55 AM FORMER TOBACCO USE <1Y [facility] May 26, 2017 10:51 PM INPT TOBACCO COUNSELING [place] [facility] May 26, 2017 10:51 PM INPT TOBACCO USER [place] [facility] May 03, 2017 09:34 PM INPT TOBACCO COUNSELING [place] [facility] May 03, 2017 09:34 PM INPT TOBACCO USER [place] [facility] Sep 18, 2016 01:36 PM FORMER TOBACCO USE <1Y [facility] Aug 10, 2016 03:54 PM INPT TOBACCO USE - PT REFUSED [facility] Aug 01, 2016 06:48 PM INPT TOBACCO COUNSELING [place] [facility] Aug 01, 2016 06:48 PM INPT TOBACCO USER [place] [facility] Feb 08, 2015 09:57 AM CURRENT TOBACCO USER [place] [facility] Nov 29, 2013 10:37 AM CURRENT TOBACCO USER [place] [facility] Nov 26, 2013 11:09 AM PATIENT IS TOBACCO USER [place] [facility] Nov 27, 2012 12:12 [...] Feb 25, 2018 ADVANCE DIRECTIVE AURORA MORALES [facility] Feb 24, 2018 ADVANCE DIRECTIVE DISCUSSION AURORA MORALES [facility] May 26, 2017 CLINICAL WARNING MAGO CONTRERAS [facility] May 03, 2017 CLINICAL WARNING SARIAH ENGLE [facility] Aug 10, 2016 CLINICAL WARNING ISABEL BARCENAS [facility] Aug 02, 2016 CLINICAL WARNING AURORA ALMAZAN [facility] Encounter Notes: All associated encounter notes This section contains the clinical notes associated to the Encounter. Date/Time Encounter Note(s) Provider Source Jul 16, 2022 12:21 PM NONVA NOTE: SAMREEN HERMAN [facility] LOCAL TITLE: COMMUNITY CARE-ELZBIETA SELF PRESENTIN G CARE COORD PLAN STANDARD TITLE: NONVA NOTE DATE OF NOTE: JUL 16, 2022@12:21 ENTRY DATE: JUL 16, 2022@12:21:37 AUTHOR: SAMREEN HERMAN EXP COSIGNER: URGENCY: STATUS: COMPLETED COMMUNITY CARE-ELZBIETA SELF PRESENTING CARE CO ORD PLAN NOTE Has ADDENDA Emergency Notification Intake Date Presenting to the Facility: Jun Method of Contact: Phone Centralized Call Center Notified [facility] Name: Hospital: [facility] Address: [address] [place] [address] City: [place] State: [place] Zip Code: [address] Phone : [facility] Facility Point of Contact: Name: RUBÉN [place] Chief complaint: COPD EXACERBATION Primary Diagnosis: COPD EXACERBATION Disposition Unknown at time of intake note entry /mikal/ SAMREEN HERMAN [facility] HAND Signed: 07/16/2022 12:23 Receipt Acknowledged By: 07/20/2022 09:05 /es/ PRANAY WOMACK RN REGISTERED NURSE 07/16/2022 ADDENDUM STATUS: COMPLETED Returned call to Rubén and let her know that th ere are no beds available for transfer to [facility]. She ask ed about home oxygen for , provided her with contact for Jacey Kang respiratory therapi [phone] /es/ LUCIO MARK RN [facility] Signed: 07/16/2022 13:01 07/20/2022 ADDENDUM STATUS: COMPLETED Records are currently unavailable in [facility] under [facility] Summaries and Documents widget. Requested records from the [facility], will send to [facility] for importing once received. Also cosigning the PACT RN for awareness of episode of care. /mikal/ PRANAY WOMACK RN REGISTERED NURSE Signed: 07/20/2022 09:07 Receipt Acknowledged By: * AWAITING SIGNATURE * HERI BRAUN
--- OUTSIDE RECORDS SUMMARY | 2022-07-22 15:20 | XMS_ITS | Encounter Summary ---
:1950 Author Organization [facility] Address [address] [place] [address] Support Name Relationship Address Phone MADELIN MANTILLA Unavailable [address] [phone] [place] [address] MADELIN MANTILLA Unavailable [address] [phone] [place] [address] DHAVAL MANTILLA Unavailable [address] [place] [address] Insurance Providers: All historical and current Section [...] MEDICARE MEDICARE PART Jul 18, PART B [id number] ANNALEE BUSTILLO (WNR) (M) B 2014A [phone] ,REGI MEDICARE MEDICARE PART Apr 17, PART A [id number] 800 ANNALEE BUSTILLO (WNR) (M) A 2012A [phone] ,REGI Selected Encounter This section includes the information on record at [place] for the Encounter. Date/Time Encounter Type Encounter Description Reason Provider Source Jul 19, 2022 07:00 Outpatient Encounter ADMIN CURT RICO AM (MASNONCT) [...] 20 appointments. The data comes from all [facility]. Appointment Date/Time Appointment Type Appointment Facili ty Name Jul 24, 2022 11:00 AM AMBULATORY - MEDICINE [facility] Jul 25, 2022 09:00 AM AMBULATORY - NONE [facility] Jul 25, 2022 10:30 AM AMBULATORY - NONE [facility] Jul 25, 2022 11:00 AM AMBULATORY - SURGERY [facility] Jul 25, 2022 12:30 PM AMBULATORY - NONE [facility] Aug 05, 2022 11:00 AM AMBULATORY - NONE [facility] Aug 06, 2022 10:00 AM AMBULATORY - SURGERY [facility] Oct 21, 2022 03:00 PM AMBULATORY - SURGERY [facility] Nov 20, 2022 10:30 AM AMBULATORY - MEDICINE [facility] Nov 20, 2022 11:00 AM AMBULATORY - MEDICINE [facility] Nov 20, 2022 11:30 AM AMBULATORY - MEDICINE [facility] Active, Pending, and Scheduled Orders This section includes a listing of several types of active, pending, and scheduled orders, including clinic medications orders, diagnostic test orders, procedure orders and consult orders; where the start date of the order is 45 days before the date of the Encounter or 45 days after the date of the Encounter. The data comes from all [facility]. Test Date/Time Test Type Test Details Facility Name Jun 24, 2022 06:55 PM Laboratory - Chemistry EXTRA BLUE TUBE [facility]LLI [facility] Order Jun 24, 2022 06:55 PM Laboratory - Chemistry EXTRA GOLD GEL TUBE [facility] Order SERUM Jun 24, 2022 06:55 PM Laboratory - Chemistry EXTRA PURPLE TUBE B LOOD [facility] Order Jun 24, 2022 06:55 PM Laboratory - Chemistry EXTRA MINT TUBE [facility] Order Jun 28, 2022 04:57 PM Consult Order NEUROSURGERY OUTPT Cons [place] [facility] Vegetable Ii [employer] Jun 28, 2022 05:00 PM Consult Order UROLOGY OUTPT [place] [facility] 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 Ordering Provid er: JENNA LUIS Report Released Date/Time: Jan 11, 2022 11:04 AM Reporting Lab: [facility] [address] Performing Lab: [facility] [address] CREATININE 1.5 H 0.7-1.2 ALKALINE PHOSPHATASE 72 40-150 ALT/SGPT 12 <55 AST/SGOT 11 <34 C-REACTIVE PROTEIN 5.28 H <5.00 CREAT EGFR(CKD-EPI) 49 L >60 Jul 19, 2022 [facility] RHEUMATOLOGY HEME PANEL Spec imen Type: BLOOD 08:08 AM No comment enter ed. Ordering Provid er: JENNA LUIS Report Released Date/Time: Jan 11, 2022 11:04 AM Reporting Lab: [facility] [address] Performing Lab: [facility] [address] WBC 13.17 H 4.0-11.0 RBC 3.21 L [...] H 5-15 Jun 24, 2022 09:29 PM [facility] URINALYSIS Specim en Type: URINE No comment enter ed. Ordering Provid er: JAYDE MENDOZA Report Released Date/Time: Jun 24, 2022 06:55 PM Reporting Lab: [facility] [address] [facility] [address] Performing Lab: [facility] [address] [facility] [address] URINE COLOR YELLOW SPECIFIC GRAVITY 1.039 H [...] 25 NEGATIVE Jun 24, 2022 08:24 PM [facility] AST/SGOT Specim en Type: PLASMA No comment enter ed. Ordering Provid er: JAYDE MENDOZA Report Released Date/Time: Jun 24, 2022 08:09 PM Reporting Lab: [facility] [address] [facility] [address] Performing Lab: [facility] [address] [facility] [address] AST/SGOT 19 <34 Jun 24, 2022 08:24 PM [facility] POTASSIUM Specim en Type: PLASMA No comment enter ed. Ordering Provid er: JAYDE MENDOZA Report Released Date/Time: Jun 24, 2022 08:09 PM Reporting Lab: [facility] [address] [facility] [address] Performing Lab: [facility] [address] [facility] [address] POTASSIUM 4.9 3.5-5.1 Jun 24, 2022 08:24 PM [facility] PROTEIN,TOTAL Specim en Type: PLASMA No comment enter ed. Ordering Provid er: JAYDE MENDOZA Report Released Date/Time: Jun 24, 2022 08:09 PM Reporting Lab: [facility] [address] [facility] [address] Performing Lab: [facility] [address] [facility] [address] PROTEIN,TOTAL 6.8 6.0-8.3 Jun 24, 2022 07:40 [facility] PROTHROMBIN TIME/INR Spec imen Type: PLASMA PM No comment enter ed. Ordering Provid er: JAYDE MENDOZA Report Released Date/Time: Jun 24, 2022 06:55 PM Reporting Lab: [facility] [address] [facility] [address] [address] Performing Lab: [facility] [address] .INR 1.1 0.8-1.1 .PT 12.1 9.4-12.5 Jun 24, 2022 07:32 [facility] COVID-19 DIAGNOSTIC Speci men Type: NASOPHARYNGEAL PM PANEL (CEPHEID) Comment: Cephei d GeneXpert (618) Ordering Provid er: JAYDE MENDOZA Report Released Date/Time: Jun 24, 2022 06:55 PM Reporting Lab: [facility] [address] Performing Lab: [facility] [address] COVID-19 (CEPHEID) Not Detected Not Dete cted Jun 24, 2022 [facility] COMPREHENSIVE METABOLIC Spec imen Type: PLASMA 07:29 PM PANEL+MG Comment: Cancel lation reported to: Rajni Giraldo RN on 06/24/22@2004 by [place]. Test result cancelled due to hemolysis interference in sample. Ordering Provid er: JAYDE MENDOZA Report Released Date/Time: Jun 24, 2022 06:55 PM Reporting Lab: [facility] ONE [facility] [address] Performing Lab: [facility] [address] CREATININE 1.3 H 0.7-1.2 UREA NITROGEN 19 [...] L >60 Jun 24, 2022 07:29 PM [facility] CBC & DIFF Specim en Type: BLOOD Comment: Clumpe d Platelets. Invitro artefact. No clinical significance. Platelet count may be higher than stated value. Plt count = 214 K-cmm Manual Differential Performed Ordering Provid er: JAYDE MENDOZA Report Released Date/Time: Jun 24, 2022 06:55 PM Reporting Lab: [facility] ONE [facility] [address] Performing Lab: [facility] ONE [facility] [address] WBC 9.67 4.0-11.0 RBC 3.36 L 4.6-6.2 [...] Marcus dy Source Pressure Rate Mass Index Jul 19 F 55 108/64 20 /min 94 % 6 121 lb 22 [place] 2021 08:33 /min mm[Hg] [facility] Social History: Smoking Status (Most current) and [...] 01:30 PM VA-TOBACCO FORMER USER [place] [facility] Tobacco Use History This section includes a history of the smoking, or tobacco- related health factors, that were collected on or before the date of the Encounter. The data comes from the [place] facility where the Encounter took place. Date/Time Smoking Status/Tobacco Use Comment [facility] Mar 05, 2022 01:30 PM VA-TOBACCO QUIT 1 TO < 5 YRS [facility] Jun 01, 2021 02:00 PM [facility]ACCO [facility] Dec 31, 2019 10:54 AM VA-TOBACCO [facility] Dec 31, 2019 10:54 AM VA-TOBACCO QUIT < 1 YEAR [facility] March 23, 2019 09:53 AM VA-TOBACCO FORMER USER [facility] March 23, 2019 09:53 AM VA-TOBACCO QUIT < 1 YEAR [facility] Jun 10, 2018 10:00 AM CURRENT TOBACCO USER [place] [facility] May 10, 2018 07:27 PM INPT TOBACCO COUNSELING [place] [facility] May 10, 2018 07:27 PM INPT TOBACCO USER [place] [facility] Aug 29, 2017 09:55 AM FORMER TOBACCO USE <1Y [facility] May 26, 2017 10:51 PM INPT TOBACCO COUNSELING [place] [facility] May 26, 2017 10:51 PM INPT TOBACCO USER [place] [facility] May 03, 2017 09:34 PM INPT TOBACCO COUNSELING [place] [facility] May 03, 2017 09:34 PM INPT TOBACCO USER [place] [facility] Sep 18, 2016 01:36 PM FORMER TOBACCO USE <1Y [facility] Aug 10, 2016 03:54 PM INPT TOBACCO USE - PT REFUSED [facility] Aug 01, 2016 06:48 PM INPT TOBACCO COUNSELING [place] [facility] Aug 01, 2016 06:48 PM INPT TOBACCO USER [place] Feb 08, 2015 09:57 AM CURRENT TOBACCO USER [facility] Nov 29, 2013 10:37 AM CURRENT TOBACCO USER [place] [facility] Nov 26, 2013 11:09 AM PATIENT IS TOBACCO USER [place] [facility] Nov 27, 2012 12:12 PM CURRENT TOBACCO USER [facility] Dec 27, 2011 09:44 AM CURRENT TOBACCO USER [place] [facility] Jan 22, 2011 02:38 PM CURRENT TOBACCO USER [facility] Mar 13, 2010 12:48 PM CURRENT TOBACCO USER [place] [facility] Advance Directives: All historical and [...] 24, 2018 ADVANCE DIRECTIVE DISCUSSION AURORA MROALES [facility] May 26, 2017 CLINICAL WARNING MAGO CONTRERAS [facility] May 03, 2017 CLINICAL WARNING SARIAH ENGLE [facility] Aug 10, 2016 CLINICAL WARNING ISABEL BARCENAS [facility] Aug 02, 2016 CLINICAL WARNING AURORA ALMAZAN [facility]
--- OUTSIDE RECORDS SUMMARY | 2022-07-22 15:20 | XMS_ITS | Encounter Summary ---
:1950 Author Organization Department [facility] Address [address] [place] [address] Support Name Relationship Address Phone MADELIN MANTILLA Unavailable [address] [phone] [place] [address] MADELIN MANTILLA Unavailable [address] [phone] [place] [address] DHAVAL MANTILLA Unavailable [address] [place] [address] Insurance Providers: All historical and current Section [...] MEDICARE MEDICARE PART Jul 18, PART B [id number] ANNALEE BRYANIENT (WNR) (M) B 2014A [phone] ,REGI MEDICARE MEDICARE PART Apr 17, PART A [id number] ANNALEE BRYANIENT (WNR) (M) A 2012A [phone] ,REGI Selected Encounter This section includes the information on record at [place] for the Encounter. Date/Time Encounter Type Encounter Description Reason Provider Source Jul 17, 2022 01:29 Outpatient Encounter TELEPHONE TRIAGE PM IHE Encounter [...] Appointment Type Appointment Facili ty Name Jul 19, 2022 07:00 AM AMBULATORY - NONE [facility] Jul 19, 2022 08:00 AM AMBULATORY - MEDICINE [facility] Jul 19, 2022 09:00 AM AMBULATORY - MEDICINE [facility] Jul 24, 2022 11:00 AM AMBULATORY - MEDICINE [facility] Jul 25, 2022 09:00 AM AMBULATORY - NONE [facility] Jul 25, 2022 10:30 AM AMBULATORY - NONE [facility] Jul 25, 2022 11:00 AM AMBULATORY - SURGERY [facility] Jul 25, 2022 12:30 PM AMBULATORY - NONE [facility] Aug 05, 2022 11:00 AM AMBULATORY - NONE [facility] Aug 06, 2022 10:00 AM AMBULATORY - SURGERY [facility] Oct 21, 2022 03:00 PM AMBULATORY - SURGERY [facility] Nov 20, 2022 10:30 AM AMBULATORY - MEDICINE [facility] Nov 20, 2022 11:00 AM AMBULATORY - MEDICINE [facility] Nov 20, 2022 11:30 AM AMBULATORY - MEDICINE [facility] Active, Pending, and Scheduled Orders This section includes a listing of several types of active, pending, and scheduled orders, including clinic medications orders, diagnostic test orders, procedure orders and consult orders; where the start date of the order is 45 days before the date of the Encounter or 45 days after the date of the Encounter. The data comes from all [place] treatment [facility]. Test Date/Time Test Type Test Details Facility Name Jun 24, 2022 06:55 PM Laboratory - Chemistry EXTRA BLUE TUBE SHELLI SMA [facility] Order Jun 24, 2022 06:55 PM Laboratory - Chemistry EXTRA GOLD GEL TUBE [facility] Order SERUM Jun 24, 2022 06:55 PM Laboratory - Chemistry EXTRA PURPLE TUBE B LOOD [facility] Order Jun 24, 2022 06:55 PM Laboratory - Chemistry EXTRA MINT TUBE SHELLI SMA [facility] Order Jun 28, 2022 04:57 PM Consult Order NEUROSURGERY OUTPT [place] [facility] Air Hammer Operator's Choice Jun 28, 2022 05:00 PM Consult Order UROLOGY OUTPT [place] [facility] Air Hammer Operator's Choice Jul 25, 2022 10:30 AM Imaging - General CERVICAL SPINE 4 OR 5 [place] [facility] Radiology Order VIEWS Lab Results: +/- 30 days of the encounter This section includes the Chemistry and Hematology Lab Results on record with [place] for the patient. Radiology Reports and Pathology Reports are provided separately, in subsequent sections.Lab Results This section contains the Chemistry/Hematology Results that were resulted 30 days before or 30 daysafter the date of the Encounter. Date/Time Source Result Type Result - Unit Interpretation Reference Range Comment Jul 19, 2022 [facility] RHEUMATOLOGY CHEM PANEL Spec imen Type: PLASMA 08:08 AM No comment enter ed. Ordering Provid er: JENNA LUIS Report Released Date/Time: Jan 11, 2022 11:04 AM Reporting Lab: [facility] [id number] Performing Lab: [facility] [address] CREATININE 1.5 H 0.7-1.2 ALKALINE PHOSPHATASE 72 40-150 ALT/SGPT 12 <55 AST/SGOT 11 <34 C-REACTIVE PROTEIN 5.28 H <5.00 CREAT EGFR(CKD-EPI) 49 L >60 Jul 19, 2022 [facility] RHEUMATOLOGY HEME PANEL Spec imen Type: BLOOD 08:08 AM No comment enter ed. Ordering Provid er: JENNA LUIS Report Released Date/Time: Jan 11, 2022 11:04 AM Reporting Lab: [facility] [id number] Performing Lab: [facility] [address] WBC 13.17 H 4.0-11.0 RBC 3.21 L [...] H 5-15 Jun 24, 2022 09:29 PM [facility] URINALYSIS Specim en Type: URINE No comment enter ed. Ordering Provid er: JAYDE MENDOZA Report Released Date/Time: Jun 24, 2022 06:55 PM Reporting Lab: [facility] [address] [facility] [address] Performing Lab: [facility] [address] [facility] [address] URINE COLOR YELLOW SPECIFIC GRAVITY 1.039 H [...] [facility] [address] [facility] [address] Performing Lab: [facility] [address] [facility] [address] AST/SGOT 19 <34 Jun 24, 2022 08:24 PM [facility] POTASSIUM Specim en Type: PLASMA No comment enter ed. Ordering Provid er: JAYDE MENDOZA Report Released Date/Time: Jun 24, 2022 08:09 PM Reporting Lab: [facility] [address] [facility] [address] Performing Lab: [facility] [address] [facility] [address] POTASSIUM 4.9 3.5-5.1 Jun 24, 2022 08:24 PM [facility] PROTEIN,TOTAL Specim en Type: PLASMA No comment enter ed. Ordering Provid er: JAYDE MENDOZA Report Released Date/Time: Jun 24, 2022 08:09 PM Reporting Lab: [facility] [address] [facility] [address] Performing Lab: [facility] [address] [facility] [address] PROTEIN,TOTAL 6.8 6.0-8.3 Jun 24, 2022 07:40 [facility] PROTHROMBIN TIME/INR Spec imen Type: PLASMA PM No comment enter ed. Ordering Provid er: JAYDE MENDOZA Report Released Date/Time: Jun 24, 2022 06:55 PM Reporting Lab: [facility] [address] Performing Lab: [facility] [address] .INR 1.1 0.8-1.1 .PT 12.1 9.4-12.5 Jun 24, 2022 07:32 [facility] COVID-19 DIAGNOSTIC Speci men Type: NASOPHARYNGEAL PM PANEL (CEPHEID) Comment: Cephei d GeneXpert (618) Ordering Provid er: JAYDE MENDOZA Report Released Date/Time: Jun 24, 2022 06:55 PM Reporting Lab: [facility] [address] Performing Lab: [facility] [address] COVID-19 (CEPHEID) Not Detected Not Dete cted Jun 24, 2022 07:29 PM [facility] CBC & DIFF Specim en Type: BLOOD Comment: [place] d Platelets. Invitro artefact. No clinical significance. Platelet count may be higher than stated value. Plt count = 214 K-cmm Manual Differential Performed Ordering Provid er: JAYDE MENDOZA Report Released Date/Time: Jun 24, 2022 06:55 PM Reporting Lab: [facility] [address] [facility] [address] Performing Lab: [facility] [address] WBC 9.67 4.0-11.0 RBC 3.36 L 4.6-6.2 [...] canc .RBC MORPHOLOGY PRESENT Jun 24, 2022 [facility] COMPREHENSIVE METABOLIC Spec imen Type: PLASMA 07:29 PM PANEL+MG Comment: Cancel lation reported to: Rajni Giraldo RN on 06/24/22@2004 by Test result cancelled due to hemolysis interference in sample. Ordering Provid er: JAYDE MENDOZA Report Released Date/Time: Jun 24, 2022 06:55 PM Reporting Lab: [facility] [address] [facility] [address] Performing Lab: [facility] [address] CREATININE 1.3 H 0.7-1.2 UREA NITROGEN 19 8-26 GLUCOSE 111 H 74-100 SODIUM 133 L 136-145 POTASSIUM canc 3.5-5.1 CHLORIDE 103 98-107 CO2 22 22-29 CALCIUM 9.4 8.4-10.2 PROTEIN,TOTAL canc 6.0-8.3 ALBUMIN 3.9 3.5-5.2 BILIRUBIN, TOTAL 0.2 0.2-1.2 MAGNESIUM 2.3 1.6-2.6 ANION GAP 8 5-15 ALKALINE PHOSPHATASE 56 40-150 ALT/SGPT 20 <55 AST/SGOT canc <34 CREAT EGFR(CKD-EPI) 58 L >60 Social History: Smoking Status (Most current) [...] 01:30 PM [place]-TO[place] FORMER USER [place] [facility] Tobacco Use History This section includes a history of the smoking, or tobacco- related health factors, that were collected on or before the date of the Encounter. The data comes from the [place] facility where the Encounter took place. Date/Time Smoking Status/Tobacco Use Comment Katherine gillis Mar 05, 2022 01:30 PM [place] QU[place] 1 TO < 5 YRS [facility] Jun 01, 2021 02:00 PM [place] NEVER USED [place] [facility] Dec 31, 2019 10:54 AM [place]-TOBACCO FORMER USER [place] [facility] Dec 31, 2019 10:54 AM VA-TOBACCO QUIT < 1 YEAR [facility] March 23, 2019 09:53 AM [place]-TOBACCO FORMER USER [facility] March 23, 2019 09:53 AM [place] QUIT < [facility] Jun 10, 2018 10:00 AM CURRENT TOBACCO USER [facility] May 10, 2018 07:27 PM [facility] May 10, 2018 07:27 PM INPT TOBACCO USER [facility] Aug 29, 2017 09:55 AM FORMER TOBACCO USE <1Y [facility] May 26, 2017 10:51 PM [facility] May 26, 2017 10:51 PM INPT TOBACCO USER [facility] May 03, 2017 09:34 PM [facility] May 03, 2017 09:34 PM INPT TOBACCO USER [facility] [facility] Sep 18, 2016 01:36 PM FORMER TOBACCO USE <1Y [facility] Aug 10, 2016 03:54 PM INPT TOBACCO USE - PT REFUSED [facility] Aug 01, 2016 06:48 PM [facility] Aug 01, 2016 06:48 PM INPT TOBACCO USER [facility] Feb 08, 2015 09:57 AM CURRENT TOBACCO USER [facility] Nov 29, 2013 10:37 AM [facility] Nov 26, 2013 11:09 AM PATIENT [place]ACCO US[place] [facility] Nov 27, 2012 12:12 PM CURRENT TOBACCO USER [facility] Dec 27, 2011 09:44 AM [facility] Jan 22, 2011 02:38 PM [facility] Mar 13, 2010 12:48 PM CURRENT TOBACCO USER [facility] Advance Directives: All [...] WARNING [facility] Encounter Notes: All associated encounter notes This section contains the clinical notes associated to the Encounter. Date/Time Encounter Note(s) Provider Source Jul 17, 2022 01:29 PM REPORT OF CONTACT: STACEY CUMMINGS [place] [facility] LOCAL TITLE: PATIENT CONTACT NOTE D STANDARD TITLE: REPORT OF CONTACT DATE OF NOTE: JUL 17, 2022@13:29 ENTRY DATE: JUL 17, 2022@13:30:03 AUTHOR: JACLYN CUMMINGS COSIGNER: URGENCY: STATUS: COMPLETED PATIENT CONTACT NOTE Has [facility] Phone number verified as correct. [phone] The is being discharged from [facility] Friday07/17/2022 and instructed to follow up with 2-7 days from discharge, this technical report writer was unable to accommodate. Please call the at the above listed numb er. /mikal/ STACEY MCCLOUD VISN23 [facility] Signed: 07/17/2022 13:36 Receipt Acknowledged By: 07/18/2022 13:28 /es/ [facility] 07/18/2022 ADDENDUM STATUS: COMPLETED Forwarding above message to PCP/RN. Patient requesting a call back regarding f/u appt. Alert me if I need to schedule patient for an appt. Thanks! /mikal/ [facility] Signed: 07/18/2022 13:30 Receipt Acknowledged By: 07/18/2022 21:58 /es/ MARYELLEN LEON MD Staff Physician 07/19/2022 10:04 /es/ STUART BERNSTEIN RN REGISTERED NURSE for HERI KIKILinda BRAUN 07/18/2022 ADDENDUM STATUS: COMPLETED No outside discharge summary seen on [facility] Please advise patient to have outside discharge summary faxed/sent to [place] for review and will decide appropriate f/u /es/ MARYELLEN LEON MD Staff Physician Signed: 07/18/2022 22:00 Receipt Acknowledged By: * AWAITING SIGNATURE * HERI BRAUN 07/19/2022 ADDENDUM STATUS: COMPLETED We got the ED and H&P notes, not the d/c summary today. I'll call again 07/23. /es/ STUART BERNSTEIN RN REGISTERED NURSE Signed: 07/19/2022 14:15
--- OUTSIDE RECORDS SUMMARY | 2022-07-22 15:20 | XMS_ITS | Encounter Summary ---
:1950 Author Organization [facility] Address [address] [place] [address] Support Name Relationship Address Phone MADELIN MANTILLA Unavailable [address] [phone] [place] [address] MADELIN MANTILLA Unavailable [address] [phone] [place] [address] DHAVAL MANTILLA Unavailable [address] [place] [address] Insurance Providers: All historical and current Section [...] MEDICARE MEDICARE PART Jul 18, PART B [id number] ANNALEE BUSTILLO (WNR) (M) B 2014 [id number] [phone] ,REGI MEDICARE MEDICARE PART Apr 17, PART A [id number] ANNALEE BUTSILLO (WNR) (M) A [id number] [id number] ,REGI Selected Encounter This section includes the information on record at [place] for the Encounter. Date/Time Encounter Type Encounter Reason Provider Source Description Jul 17, 2022 10:22 Outpatient ADMIN PAT ACTIVPRANAY MEDINA PM Encounter [...] The data comes from all [place] [facility]. Appointment Date/Time Appointment Type Appointment Facili ty Name Jul 19, 2022 07:00 AM AMBULATORY - NONE [facility] Jul 19, 2022 08:00 AM AMBULATORY - MEDICINE [facility] Jul 19, 2022 09:00 AM AMBULATORY - MEDICINE [facility] Jul 24, 2022 11:00 AM AMBULATORY - MEDICINE [facility] Jul 25, 2022 09:00 AM AMBULATORY - NONE [facility] Jul 25, 2022 10:30 AM AMBULATORY - NONE [facility] Jul 25, 2022 11:00 AM AMBULATORY - SURGERY [facility] Jul 25, 2022 12:30 PM AMBULATORY - NONE [facility] Aug 05, 2022 11:00 AM AMBULATORY - NONE [facility] Aug 06, 2022 10:00 AM AMBULATORY - SURGERY [facility] S Oct 21, 2022 03:00 PM AMBULATORY - SURGERY [facility] S Nov 20, 2022 10:30 AM AMBULATORY - MEDICINE [facility] CS Nov 20, 2022 11:00 AM AMBULATORY - MEDICINE [facility] CS Nov 20, 2022 11:30 AM [...] the Encounter. The data comes from all [facility]. Test Date/Time Test Type Test Details Facility Name Jun 24, 2022 06:55 PM Laboratory - Chemistry EXTRA BLUE TUBE SHELLI [facility] Order Jun 24, 2022 06:55 PM Laboratory - Chemistry EXTRA GOLD GEL TUBE [facility] Order SERUM Jun 24, 2022 06:55 PM Laboratory - Chemistry EXTRA PURPLE TUBE B LOOD [facility] Order Jun 24, 2022 06:55 PM Laboratory - Chemistry EXTRA MINT TUBE SHELLI [facility] Order WC Jun 28, 2022 04:57 PM Consult Order NEUROSURGERY OUTPT Cons [place] Rn Charge's Choice Jun 28, 2022 05:00 PM Consult Order UROLOGY OUTPT Cons [place] [facility] Rn Charge's Choice Jul 25, 2022 10:30 AM Imaging - General CERVICAL SPINE 4 OR 5 [facility] Radiology Order VIEWS Lab Results: [...] Interpretation Reference Range Comment Jul 19, 2022 [facility] RHEUMATOLOGY CHEM PANEL Spec imen Type: PLASMA 08:08 AM No comment enter ed. Ordering Provid er: JENNA LUIS Report Released Date/Time: Jan 11, 2022 11:04 AM Reporting Lab: [facility] [id number] Performing Lab: [facility] [address] CREATININE 1.5 H 0.7-1.2 ALKALINE PHOSPHATASE 72 40-150 ALT/SGPT 12 <55 AST/SGOT 11 <34 C-REACTIVE PROTEIN 5.28 H <5.00 CREAT EGFR(CKD-EPI) 49 L >60 Jul 19, 2022 [facility] RHEUMATOLOGY HEME PANEL Spec imen Type: BLOOD 08:08 AM No comment enter ed. Ordering Provid er: JENNA LUIS Report Released Date/Time: Jan 11, 2022 11:04 AM Reporting Lab: [facility] [id number] Performing Lab: [facility] [id number] WBC 13.17 H 4.0-11.0 RBC 3.21 L [...] H 5-15 Jun 24, 2022 09:29 PM [facility] URINALYSIS Specim en Type: URINE No comment enter ed. Ordering Provid er: JAYDE MENDOZA Report Released Date/Time: Jun 24, 2022 06:55 PM Reporting Lab: [facility] [address] [facility] [address] Performing Lab: [facility] [address] URINE COLOR YELLOW SPECIFIC GRAVITY 1.039 H [...] 25 NEGATIVE Jun 24, 2022 08:24 PM [facility] AST/SGOT Specim en Type: PLASMA No comment enter ed. Ordering Provid er: JAYDE MENDOZA Report Released Date/Time: Jun 24, 2022 08:09 PM Reporting Lab: [facility] [address] [facility] [address] Performing Lab: [facility] [address] [facility] [address] AST/SGOT 19 <34 Jun 24, 2022 08:24 PM [facility] POTASSIUM Specim en Type: PLASMA No comment enter ed. Ordering Provid er: JAYDE MENDOZA Report Released Date/Time: Jun 24, 2022 08:09 PM Reporting Lab: [facility] [address] [facility] [address] Performing Lab: [facility] [address] [facility] [address] POTASSIUM 4.9 3.5-5.1 Jun 24, 2022 08:24 PM [facility] PROTEIN,TOTAL Specim en Type: PLASMA No comment enter ed. Ordering Provid er: JAYDE MENDOZA Report Released Date/Time: Jun 24, 2022 08:09 PM Reporting Lab: [facility] [address] [facility] [address] Performing Lab: [facility] [address] [facility] [address] PROTEIN,TOTAL 6.8 6.0-8.3 Jun 24, 2022 07:40 [facility] PROTHROMBIN TIME/INR Spec imen Type: PLASMA PM No comment enter ed. Ordering Provid er: JAYDE MENDOZA Report Released Date/Time: Jun 24, 2022 06:55 PM Reporting Lab: [facility] [address] Performing Lab: [facility] [address] .INR 1.1 0.8-1.1 .PT 12.1 9.4-12.5 Jun 24, 2022 07:32 [facility] COVID-19 DIAGNOSTIC Speci men Type: NASOPHARYNGEAL PM PANEL (CEPHEID) Comment: Cephei d GeneXpert (618) Ordering Provid er: JAYDE MENDOZA Report Released Date/Time: Jun 24, 2022 06:55 PM Reporting Lab: [facility] [address] Performing Lab: [facility] [address] COVID-19 (CEPHEID) Not Detected Not Dete cted Jun 24, 2022 [facility] COMPREHENSIVE METABOLIC Spec imen Type: PLASMA 07:29 PM PANEL+MG Comment: Cancel lation reported to: Rajni Giraldo RN on 06/24/22@2003 by [place]. Test result cancelled due to hemolysis interference in sample. Ordering Provid er: JAYDE MENDOZA Report Released Date/Time: Jun 24, 2022 06:55 PM Reporting Lab: [facility] [address] Performing Lab: [facility] [address] CREATININE 1.3 H 0.7-1.2 UREA NITROGEN 19 [...] L >60 Jun 24, 2022 07:29 PM [facility] CBC & DIFF Specim en Type: BLOOD Comment: [place] d Platelets. Invitro artefact. No clinical significance. Platelet count may be higher than stated value. Plt count = 214 K-cmm Manual Differential Performed Ordering Provid er: JAYDE MENDOZA Report Released Date/Time: Jun 24, 2022 06:55 PM Reporting Lab: [facility] [address] [facility] [address] Performing Lab: [facility] [address] WBC 9.67 4.0-11.0 RBC 3.36 L 4.6-6.2 [...] smoking and tobacco-related health factors from the [facility] where the Encounter took place.Current Smoking Status This section includes the most current smoking, or tobacco-related health factor, from the [place] facility where the Encounter took place. Date/Time Current Smoking Status Comment Facility Mar 05, 2022 01:30 PM VA-TOBACCO FORMER USER [facility] Tobacco Use History This section includes a history of the smoking, or tobacco- related health factors, that were collected on or before the date of the Encounter. The data comes from the [place] facility where the Encounter took place. Date/Time Smoking Status/Tobacco Use Comment Katherine gillis Mar 05, 2022 01:30 PM VA-TOBACCO QUIT 1 TO < 5 YRS [facility] Jun 01, 2021 02:00 PM VA-TOBACCO NEVER USED [facility] Dec 31, 2019 10:54 AM VA-TOBACCO FORMER USER [facility] Dec 31, 2019 10:54 AM VA-TOBACCO QUIT < 1 YEAR [facility] [place] [facility] March 23, 2019 09:53 AM VA-TOBACCO FORMER USER [facility] March 23, 2019 09:53 AM VA-TOBACCO QUIT < 1 YEAR [facility] [place] [facility] Jun 10, 2018 10:00 AM CURRENT TOBACCO USER [facility] [facility] May 10, 2018 07:27 PM INPT TOBACCO COUNSELING [facility] May 10, 2018 07:27 PM INPT TOBACCO USER [facility] Aug 29, 2017 09:55 AM FORMER TOBACCO USE <1Y [facility] May 26, 2017 10:51 PM INPT TOBACCO COUNSELING [facility] [facility] May 26, 2017 10:51 PM INPT TOBACCO USER [facility] May 03, 2017 09:34 PM INPT TOBACCO COUNSELING [facility] May 03, 2017 09:34 PM INPT TOBACCO USER [facility] Sep 18, 2016 01:36 PM FORMER TOBACCO USE <1Y [facility] Aug 10, 2016 03:54 PM INPT TOBACCO USE - PT REFUSED [facility] Aug 01, 2016 06:48 PM INPT TOBACCO COUNSELING [facility] Aug 01, 2016 06:48 PM INPT TOBACCO USER [facility] Feb 08, 2015 09:57 AM CURRENT TOBACCO USER [facility] Nov 29, 2013 10:37 AM CURRENT TOBACCO USER [facility] Nov 26, 2013 11:09 AM PATIENT IS TOBACCO USER [facility] Nov 27, 2012 12:12 PM CURRENT TOBACCO USER [facility] Dec 27, 2011 09:44 AM CURRENT TOBACCO USER [facility] Jan 22, 2011 02:38 PM CURRENT TOBACCO USER [facility] Mar 13, 2010 12:48 PM CURRENT TOBACCO USER [facility] Advance Directives: All historical and [...] Feb 25, 2018 ADVANCE DIRECTIVE AURORA MORALES [facility] Feb 24, 2018 ADVANCE DIRECTIVE DISCUSSION AURORA MORALES [facility] May 26, 2017 CLINICAL WARNING MAGO CONTRERAS [facility] May 03, 2017 CLINICAL WARNING SARIAH ENGLE [facility] Aug 10, 2016 CLINICAL WARNING ISABEL BARCENAS [facility] Aug 02, 2016 CLINICAL WARNING AURORA ALMAZAN [facility] Encounter Notes: All associated encounter notes This section contains the clinical notes associated to the Encounter. Date/Time Encounter Note(s) Provider Source Jul 16, 2022 10:23 PM NONVA NOTE: BELLA FIORE [facility] LOCAL TITLE: COMMUNITY CARE-ELZBIETA SELF PRESENTIN G CARE COORD PLAN STANDARD TITLE: NONVA NOTE DATE OF NOTE: JUL 16, 2022@22:23 ENTRY DATE: JUL 17, 2022@22:23:28 AUTHOR: BELLA FIORE COSIGNER: URGENCY: STATUS: COMPLETED COMMUNITY CARE-ELZBIETA SELF PRESENTING CARE CO ORD PLAN NOTE Has ADDENDA Emergency Notification Intake Date Presenting to the Facility: Jun Method of Contact: Notified from Snipd worklist Notification ID: [id number] [facility] Referral #: [facility] Name: Hospital: [facility] Address: [address] City: [place] State: [place] Zip Code: [address] Phone : [facility] Point of Contact: Name: Anna Canas RN Chief complaint: Shortness of Breath Primary Diagnosis: Disposition Admitted Route of Admission: Other: Date of Admission: Jun Admitting Diagnosis: Shortness of Breath Community Care Provider: Confirm Level of Care: /mikal/ BELLA FIORE EMG TECHNICIAN Signed: 07/17/2022 22:25 Receipt Acknowledged By: 07/20/2022 09:06 /mikal/ PRANAY WOMACK RN REGISTERED NURSE 07/20/2022 ADDENDUM STATUS: COMPLETED This is a duplicate notification. Please see ot er COMMUNITY CARE-ELZBIETA SELF PRESENTING CARE COORD PLAN NOTE dated 07/16/22 /abbie WOMACK RN REGISTERED NURSE Signed: 07/20/2022 09:07
--- OUTSIDE RECORDS SUMMARY | 2022-07-22 15:20 | XMS_ITS | Encounter Summary ---
:1950 [facility] [address] [place] [address] Support Name Relationship Address Phone MADELIN MANTILLA Unavailable [address] [phone] [place] [address] MADELIN MANTILLA Unavailable [address] [phone] [place] [address] DHAVAL MANTILLA Unavailable [address] [place] [address] Insurance Providers: All historical and current Section [...] MEDICARE MEDICARE PART Jul 18, PART B [id number] ANNALEE BUSTILLO (WNR) (M) B [id number] ,[place] MEDICARE MEDICARE PART Apr 17, PART A [id number] ANNALEE BUSTILLO (WNR) (M) A [id number] [phone] ,[place] Selected Encounter This section includes the information on record at [place] for the Encounter. Date/Time Encounter Type Encounter Reason Provider Source Description Jul 19, 2022 OFFICE O/P EST RHEUMATOLOGY/ARTH ICD-10-CM M06.9 NAS PERRY 09:00 AM MOD 30-39 MIN RITIS Rheumatoid A arthritis, unspecified with Provider Comments: Seropositive rheumatoid arthritis ([facility] [place] [id number]) [facility] Encounter Template Text not used by [place] Assessments - Encounter Diagnoses This section includes the primary and secondary diagnoses documented for the Encounter. Date/Time Primary/Secondary Diagnosis Name Provider Source Diagnosis Jul 19, 2022 PRIMARY Rheumatoid NAS PERRY [facility] 05:03 PM arthritis, A HCS unspecified Jul 19, 2022 SECONDARY Other rn long term care [place] COLVIN [facility] 05:03 PM (current) drug A HCS therapy Plan of Treatment: Future Appointments (+ 6 months) and Future Tests (+/- 45 days) The Plan of Treatment section includes future care activities for the patient from all [place] treatmentfacilities. This section includes future appointments and future orders which are active, pending orscheduled.Future Appointments This section includes appointments that were scheduled to occur 6 months from the date of the Encounter, up to a maximum of 20 appointments. The data comes from all [place] treatment [facility]. Appointment Date/Time Appointment Type Appointment Facili ty Name Jul 24, 2022 11:00 AM AMBULATORY - MEDICINE [facility] CS Jul 25, 2022 09:00 AM AMBULATORY - NONE [facility] Jul 25, 2022 10:30 AM AMBULATORY - NONE [facility] Jul 25, 2022 11:00 AM AMBULATORY - SURGERY [facility] Jul 25, 2022 12:30 PM AMBULATORY - NONE [facility] Aug 05, 2022 11:00 AM AMBULATORY - NONE [facility] Aug 06, 2022 10:00 AM AMBULATORY - SURGERY [facility] Oct 21, 2022 03:00 PM AMBULATORY - SURGERY [facility] Nov 20, 2022 10:30 AM AMBULATORY - MEDICINE [facility] CS Nov 20, 2022 11:00 AM AMBULATORY - MEDICINE [facility] CS Nov 20, 2022 11:30 AM AMBULATORY - MEDICINE [facility] Active, Pending, and Scheduled Orders This [...] The data comes from all [place] treatment [facility]. Test Date/Time Test Type Test Details Facility Name Jun 24, 2022 06:55 PM Laboratory - Chemistry EXTRA BLUE TUBE SHELLI [facility] HCS Order Jun 24, 2022 06:55 PM Laboratory - Chemistry EXTRA GOLD GEL TUBE [facility] Order SERUM Jun 24, 2022 06:55 PM Laboratory - Chemistry EXTRA PURPLE TUBE B LOOD [facility] Order Jun 24, 2022 06:55 PM Laboratory - Chemistry EXTRA MINT TUBE [facility] Order Jun 28, 2022 04:57 PM Consult Order NEUROSURGERY OUTPT Cons [place] RADHA [facility] Animal Pathologist's Choice Jun 28, 2022 05:00 PM Consult Order UROLOGY OUTPT Cons [place] [facility] Animal Pathologist's Choice Jul 25, 2022 10:30 AM Imaging - General CERVICAL SPINE 4 OR 5 [place] [facility] Radiology Order VIEWS Lab Results: +/- 30 [...] Interpretation Reference Range Comment Jul 19, 2022 [facility] RHEUMATOLOGY CHEM PANEL Spec imen Type: PLASMA 08:08 AM No comment enter ed. Ordering Provid er: JENNA LUIS Report Released Date/Time: Jan 11, 2022 11:04 AM Reporting Lab: [facility] [id number] Performing Lab: [facility] [address] CREATININE 1.5 H 0.7-1.2 ALKALINE PHOSPHATASE 72 40-150 ALT/SGPT 12 <55 AST/SGOT 11 <34 C-REACTIVE PROTEIN 5.28 H <5.00 CREAT EGFR(CKD-EPI) 49 L >60 Jul 19, 2022 [facility] RHEUMATOLOGY HEME PANEL Spec imen Type: BLOOD 08:08 AM No comment enter ed. Ordering Provid er: JENNA LUIS Report Released Date/Time: Jan 11, 2022 11:04 AM Reporting Lab: [facility] [address] Performing Lab: [facility] [address] WBC 13.17 H 4.0-11.0 RBC 3.21 L [...] H 5-15 Jun 24, 2022 09:29 PM [facility] URINALYSIS Specim en Type: URINE No comment enter ed. Ordering Provid er: JAYDE MENDOZA Report Released Date/Time: Jun 24, 2022 06:55 PM Reporting Lab: [facility] [id number] Performing Lab: [facility] [address] URINE COLOR YELLOW SPECIFIC GRAVITY 1.039 H [...] 25 NEGATIVE Jun 24, 2022 08:24 PM [facility] AST/SGOT Specim en Type: PLASMA No comment enter ed. Ordering Provid er: JAYDE MENDOZA Report Released Date/Time: Jun 24, 2022 08:09 PM Reporting Lab: [facility] [address] [facility] [address] Performing Lab: [facility] [address] [address] AST/SGOT 19 <34 Jun 24, 2022 08:24 PM [facility] POTASSIUM Specim en Type: PLASMA No comment enter ed. Ordering Provid er: JAYDE MENDOZA Report Released Date/Time: Jun 24, 2022 08:09 PM Reporting Lab: [facility] [address] [facility] [address] Performing Lab: [facility] [address] POTASSIUM 4.9 3.5-5.1 Jun 24, 2022 08:24 PM [facility] PROTEIN,TOTAL Specim en Type: PLASMA No comment enter ed. Ordering Provid er: JAYDE MENDOZA Report Released Date/Time: Jun 24, 2022 08:09 PM Reporting Lab: [facility] [address] [facility] [address] [facility] [address] Performing Lab: [facility] [address] PROTEIN,TOTAL 6.8 6.0-8.3 Jun 24, 2022 07:40 [facility] PROTHROMBIN TIME/INR Spec imen Type: PLASMA PM No comment enter ed. Ordering Provid er: JAYDE MENDOZA Report Released Date/Time: Jun 24, 2022 06:55 PM Reporting Lab: [facility] [address] [facility] [address] Performing Lab: [facility] [address] .INR 1.1 0.8-1.1 .PT 12.1 9.4-12.5 Jun 24, 2022 07:32 [facility] COVID-19 DIAGNOSTIC Speci men Type: NASOPHARYNGEAL PM PANEL (CEPHEID) Comment: Cephei d GeneXpert (618) Ordering Provid er: JAYDE MENDOZA Report Released Date/Time: Jun 24, 2022 06:55 PM Reporting Lab: [facility] [address] Performing Lab: [facility] [address] COVID-19 (CEPHEID) Not Detected Not Dete cted Jun 24, 2022 [facility] COMPREHENSIVE METABOLIC Spec imen Type: PLASMA 07:29 PM PANEL+MG Comment: Cancel lation reported to: Rajni Giraldo RN on 06/24/22@2004 by [place]. Test result cancelled due to hemolysis interference in sample. Ordering Provid er: JAYDE MENDOZA Report Released Date/Time: Jun 24, 2022 06:55 PM Reporting Lab: [facility] [address] [address] Performing Lab: [facility] [address] CREATININE 1.3 H 0.7-1.2 UREA NITROGEN 19 [...] L >60 Jun 24, 2022 07:29 PM [facility] CBC & DIFF Specim en Type: BLOOD Comment: [place] d Platelets. Invitro artefact. No clinical significance. Platelet count may be higher than stated value. Plt count = 214 K-cmm Manual Differential Performed Ordering Provid er: JAYDE MENDOZA Report Released Date/Time: Jun 24, 2022 06:55 PM Reporting Lab: [facility] [address] Performing Lab: [facility] [address] WBC 9.67 4.0-11.0 RBC 3.36 L 4.6-6.2 [...] 22 [place] 2021 08:33 /min mm[Hg] [facility] Social History: Smoking Status (Most current) [...] 2022 01:30 PM VA-TOBACCO FORMER USER [place] [facility] Tobacco Use History This section includes a history of the smoking, or tobacco- related health factors, that were collected on or before the date of the Encounter. The data comes from the [place] facility where the Encounter took place. Date/Time Smoking Status/Tobacco Use Comment Facil ity Mar 05, 2022 01:30 PM VA-TOBACCO QUIT 1 TO < 5 YRS [facility] Jun 01, 2021 02:00 PM VA-TOBACCO NEVER USED [facility] Dec 31, 2019 10:54 AM VA-TOBACCO FORMER USER [facility] Dec 31, 2019 10:54 AM VA-TOBACCO QUIT < 1 YEAR M [facility] March 23, 2019 09:53 AM VA-TOBACCO FORMER USER [facility] March 23, 2019 09:53 AM VA-TOBACCO QUIT < 1 YEAR M [facility] Jun 10, 2018 10:00 AM CURRENT TOBACCO USER [facility] May 10, 2018 07:27 PM IN[place]BAC[place] COUNSELING [place] [facility] May 10, 2018 07:27 PM [facility] Aug 29, 2017 09:55 AM FORMER TOBACCO USE <1Y [facility] May 26, 2017 10:51 PM INPT [place]BACCO COUNSELING [place] [facility] May 26, 2017 10:51 PM [place] May 03, 2017 09:34 PM INPT TOBACCO COUNSELING [place] [facility] May 03, 2017 09:34 PM [place] [facility] Sep 18, 2016 01:36 PM FORMER TOBACCO USE <1Y [place] [facility] Aug 10, 2016 03:54 PM INPT TOBACCO USE - PT REFUSED [facility] Aug 01, 2016 06:48 PM INPT TOBACCO COUNSELING [place] [facility] Aug 01, 2016 06:48 PM [place]AC[place] [facility] Feb 08, 2015 09:57 AM CURRENT [facility]ACCO USER [facility] Nov 29, 2013 10:37 AM CURRENT TOBACCO USER [facility] Nov 26, 2013 11:09 AM PATIENT IS TOBACCO USER [facility] [facility] Nov 27, 2012 12:12 PM CURRENT TOBACCO USER [facility] Dec 27, 2011 09:44 AM CURRENT TOBACCO USER [facility] Jan 22, 2011 02:38 PM CURRENT TOBACCO USER [facility] Mar 13, 2010 12:48 PM CURRENT [...] Feb 25, 2018 ADVANCE DIRECTIVE [facility] MORAL[facility] Feb 24, 2018 ADVANCE DIRECTIVE DISCUSSION [facility] May 26, 2017 CLINICAL WARNING MAGO CONTRERAS [facility] May 03, 2017 CLINICAL WARNING SARIAH ENGLE [facility] Aug 10, 2016 CLINICAL WARNING ISABEL BARCENAS [facility] Aug 02, 2016 CLINICAL WARNING [facility] ALMAZAN [facility] Encounter Notes: All associated encounter notes This section contains the clinical notes associated to the Encounter. Date/Time Encounter Note(s) Provider Source Jul 19, 2022 09:17 AM RHEUMATOLOGY ATTENDING NOTE: YUE SANTOS [facility] LOCAL TITLE: RHEUMATOLOGY CLINIC NOTE STANDARD TITLE: RHEUMATOLOGY ATTENDING NOTE DATE OF NOTE: JUL 19, 2022@09:17 ENTRY DATE: JUL 19, 2022@09:18:40 AUTHOR: YUE SANTOS EXP COSIGNER: URGENCY: STATUS: COMPLETED Rheumatology Clinic Note Chief Complaint: follow up - Seropositive RA History of Present Illnes: Mr. Mantilla is a 72 yo male with history of rh eumatoid arthritis (+CCP, +RF), HTN, CKD, alcohol use, marijuana use, CAD who presents for follow up of rheumatoid arthritis. Last visit: Dec, 2021 Interval Hx: Mr. Mantilla reports joint pain has remained under well control. He still feels joint stiffness for about 1-[address] as he stats his physical activiity. He has chronic bi lateral shoulder pain with limited range of motion. shoulder is painful when try ing to attempt to over head abduction. He is able to make a fist. He denies any j oint pain in lowere extremities. He has been taking Humira q 2 weeks. He thinks it has helped with j oint pain and swelling remarkebly. tolerating injections well without a ny skin reactions. He also continue SSZ 1 gm BID and Prednisone 10 mg daily . He had a fall a month on 06/17 after heavy drinking. He was hospitalized at [facility] for a a week. CT head negative for intr acranial bleed. MR revealed multilevel cervical spondylo sis w/ severe C4-5 and C5-6 central canal stenosis. Neurosurgery recommended non-operative managemen t for C5 fracture w/ elective cervical decompression (once C5 fracture heals). He initially felt nummbness elbows down to all of his fingers. numbn ess has gradually improved and now its limited to both wrists down to fingers tips bila terally. He contineus collar support for vertebral fracture. He has stopped drinking since fals and seems det eminant for avoiding drinking any more. Smokes only marijuana, has quit cigare ttes. Allergies: LISINOPRIL (Jun 01, 2021) Current Medications: Active Outpatient Medicatio ns (including Supplies): ACETAMINOPHEN 500MG TAB TAKE TWO TABLETS BY MOUT H FOUR ACTIVE TIMES A DAY NEEDED *NOT TO EXCEED 4000MG IN 24 HOURS* FOR PAIN ADALIMUMAB 40MG/0.8ML INJ PEN KIT INJECT 40 MG U NDER THE ACTIVE SKIN EVERY 2 WEEKS AMIODARONE HCL (PACERONE) 200MG TAB TAKE ONE TAB LET BY ACTIVE MOUTH EVERY DAY FOR HEART RHYTHM - TAKE WITH FO OD APIXABAN 5MG TAB TAKE ONE TABLET BY MOUTH EVERY 12 HOURS ACTIVE TO PREVENT BLOOD CLOTS & STROKE. ATORVASTATIN CALCIUM 80MG TAB TAKE ONE TABLET BY MOUTH AT ACTIVE BEDTIME FOR CHOLESTEROL REPLACES SIMVASTATIN CHOLECALCIF 25MCG (D3-1,000UNIT) TAB TAKE ONE TA [...] TABLET BY MOUTH EVER Y DAY ACTIVE GABAPENTIN 300MG CAP TAKE ONE CAPSULE BY MOUTH T HREE TIMES ACTIVE A DAY ISOSORBIDE MONONITRATE 60MG SA TAB TAKE ONE-HALF TABLET BY ACTIVE MOUTH EVERY DAY LIDOCAINE 5% PATCH APPLY 1 PATCH TOPICALLY NE EDED FOR ACTIVE PAIN. WEAR FOR ONLY 12 HOURS THEN REMOVE FOR 12 HOURS. LORATADINE 10MG TAB TAKE ONE TABLET BY MOUTH FOR ACTIVE ALLERGY SYMPTOMS METHOCARBAMOL 500MG TAB TAKE ONE TABLET BY MOUTH THREE ACTIVE TIMES A DAY NEEDED FOR MUSCLE SPASM OR MUSCL E PAIN METOPROLOL TARTRATE 50MG TAB TAKE ONE TABLET BY MOUTH ACTIVE TWICE A DAY PANTOPRAZOLE NA 40MG EC TAB TAKE ONE TABLET BY M OUTH EVERY ACTIVE MORNING ONE-HALF HOUR BEFORE EATING TO DECREASE STOMACH ACID TAKE ON AN EMPTY STOMACH, AT LEAST 30 TX NUTES PRIOR TO MEAL POLYETHYLENE GLYCOL 3350 ORAL PWDR TAKE 17 GRAMS BY MOUTH ACTIVE TWICE A DAY NEEDED FOR CONSTIPATION *MIX IN 4 TO 8 OUNCES OF LIQUID DIRECTED*[facility] C[facility]* PREDNISONE 10MG TAB TAKE ONE TABLET BY MOUTH ACTIVE SULFASALAZINE 500MG TAB TAKE TWO TABLETS BY MOUT H TWICE A ACTIVE DAY TAMSULOSIN HCL 0.4MG CAP TAKE ONE CAPSULE BY KIRSTIN AT ACTIVE BEDTIME Non-VA CEPHALEXIN 500MG CAP 500MG MOUTH FOUR JOSE LUIS ES A DAY ACTIVE Non-VA DOCUSATE NA 50MG/SENNOSIDES 8.6MG TAB 2 T ABLETS ACTIVE MOUTH TWICE A DAY Non-VA GABAPENTIN 300MG CAP 300MG MOUTH THREE TI MES A DAY ACTIVE Non-VA HEMORRHOIDAL RTL OINT THIN LAYER RECTUM F OUR TIMES ACTIVE A DAY NEEDED Non-VA LIDOCAINE PATCH 1-3 PATCH 4% TOPICALLY ACTIVE Non-VA METHOCARBAMOL TAB ONE-HALF TO ONE TABLET MOUTH ACTIVE EVERY 6 HOURS NEEDED Non-VA OXYCODONE TAB ONE-HALF TO ONE TABLET MOUT H EVERY 4 ACTIVE HOURS NEEDED Non-VA POLYETHYLENE GLYCOL 3350 ORAL PWDR 17 GRA MS MOUTH ACTIVE TWICE A DAY Non-VA TAMSULOSIN HCL 0.4MG CAP 0.4MG MOUTH EVER Y DAY ACTIVE Past medical history to include co-morbid medica l problems: Active problems - Computerized Problem List is t he source for the followin. Benign essential hypertension (SNOMED CT 120 5405) 2. Hearing loss * 3. HTN - Hypertension (SNOMED CT 60517424) 4. Hyperlipidemia (SNOMED CT 57833174) 5. Alcohol abuse (SNOMED CT 62536124) 6. Cannabis abuse (SNOMED CT 71719435) 7. Pain in joint involving shoulder region - RIGHT 8. Anemia (SNOMED CT 495107991) 9. Jt Replcmnt Stat, Knee 10. Gastroesophageal reflux disease (SNOMED CT 2 45649068) 11. CAD - Coronary artery disease - [...] use of anticoagulant 24. Drug monitoring done Physical Exam: Latest Vital Signs: Pain Score: 6 (07/19/2022 08:33) Temperature: 97 F [36.1 C] (07/19/2022 08:33) Pulse: 55 (07/19/2022 08:33) Blood Pressure: 108/64 (07/19/2022 08:33) Weight: 121 lb [54.88 kg] (07/19/2022 08:33) Height: 62.0 in [157.5 cm] (06/24/2022 22:38) Pulse Oximetry:94% (07/19/2022 08:33) General: He is well alert and communicative Eyes: Normal, PERRLA, Conjunctiva, Sclera Oral/Throat: no mouth ulcers Neck/Thyroid: collar support for cervical verte bral fracture Cardiac: RRR, No Murmur Chest/Lungs: Bilaterally clear with no respirat ory distress, Abdominal: Normal, Non-tender, No Hepatosplenom egaly MSK: Shoulders: abduction of R shoulder limi david to 65 deg, improved to 90 deg with pROM.left shoulder limited to 90 degrees. Unabl e to full extend right elbow without signs of acute synovitis, left elbow wit h full range of motion. Left wrist with restricted extension to 45 deg and slight fullness, not particularly tender or red. Right wrist with si milar findings to left wrist. Able to make fists bilateral ly. OA changes to hands as well as some swelling to L 2nd PIP and bony hypertrop hy of L 4th PIP. Ankles and MTPs without tenderness or synovitis. significant DJD related changes th rought both hands Neurology: tingling at both wrists extending up to tips of all digitis Extremities: Normal Review of Xrays:Y Latest Labs: HGB 10.9 L (07/19/22) MCV 105.6 H (07/19/22) WBC 13.17 H (07/19/22) PLT pending (07/19/22) GLUCOSE 111 H (06/24/22) RHEUMATOID FACTOR____ SLT - CCP AB IGG Collection DT Specimen Test Name Result Units Re f Range 01/31/2020 08:51 SERUM !! ZZCCP AB IGG >250 H Un its Ref: SEE BELOW !! Indicates COMMENTS AVAILABLE...Refer to Inter im Lab Report. Collection DT Specimen Test Name Result Units Re f Range 03/13/2010 15:33 SERUM .CYTOPLASMIC ANCANEGATIVE Ref: -neg- 03/13/2010 15:33 SERUM .PERINUCLEAR ANCANEGATIVE Ref: -neg- NEWTOWNERGREN 22 H (07/19/22) C-REACTIVE PROTEIN 5.28 H (07/19/22) BILIRUBIN, TOTAL 0.2 (06/24/22) SGOT 11 (07/19/22) SGPT 12 (07/19/22) ALK PHOSPHATASE 72 (07/19/22) ALBUMIN 3.9 (06/24/22) URIC ACID____ CALCIUM 9.4 (06/24/22) MAGNESIUM 2.3 (06/24/22) CREATININE 1.5 H (07/19/22) UREA NITROGEN 19 (06/24/22) Collection DT Specimen Test Name Result Units Re f Range 01/31/2020 08:51 SERUM VIT D 25-OH,TOTAL 19 L ng /mL 20 - 50 TSH 3.03 (05/15/22) SLT - Lab Tests Selected Collection DT Specimen Test Name Result Units Re f Range 01/31/2020 08:51 BLOOD !! HLA B27 Negative Ref: Negative !! Indicates COMMENTS AVAILABLE...Refer to Inter im Lab Report. Assessment and Recommendations: * Seropositive RA (+CCP, +RF): Mr. Mantilla appears to have well controlled RA with current regimen.He has some stiffness that could be component of both R A and severe DJD. he has improved range of motion wit hout any signs of acute synvoitis on my assessment. inflammatory markers are normal which is reassur ing as well. Has now consistently taken Humira an d this appears to be of significant benefit. Unable to utilize MTX due to ongoing Etoh use. We plan to continue regimen. would consider to taper the predni sone gradually if continued to show improvment. plan to follow up in 6 months with 3 months labs. 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 currently being managed non operatively with collar support. tingling sinsation seems to be gradually improv ing. He has schedule to see neurology for this in a week. Plan: -Continue adalimumab 40 mg subq [id number], -SSA 1000 mg BID, prednisone 10 mg daily, folic acid daily -Follow up in 6 months w/labs. Patient seen, examined and discussed alexsandra villela staff Manager Strategic Development Dr. Tiago MD /mikal/ OFE KERR RHEUMATOLOGY FELLOW Signed: 07/19/2022 10:26 Receipt Acknowledged By: * AWAITING SIGNATURE * NAS PERRY Jul 19, 2022 08:35 AM INTERNAL MEDICINE OUTPATIENT NOTE: Ana VALLEJO [facility] LOCAL TITLE: MEDICINE CLINIC NURSING NOTE STANDARD TITLE: INTERNAL MEDICINE OUTPATIENT NOT E DATE OF NOTE: JUL 19, 2022@08:35 ENTRY DATE: JUL 19, 2022@08:35:04 AUTHOR: AMRIK VALLEJO EXP COSIGNER: URGENCY: STATUS: COMPLETED TYPE OF VISIT: Appointment Check In Type of appointment: In-person appointment REASON FOR VISIT: scheduled ALLERGIES: LISINOPRIL (Jun 01, 2021) VITAL SIGNS: Blood Pressure: 108/64 (07/19/2022 08:33) Pulse: 55 (07/19/2022 08:33) Respiration: 20 (07/19/2022 08:33) Temperature: 97 F [36.1 C] (07/19/2022 08:33) Weight: 121 lb [54.88 kg] (07/19/2022 08:33) Height: 62.0 in [157.5 cm] (06/24/2022 22:38) BMI: 22.2 O2 Sat: 94% (07/19/2022 08:33) Pain: 6 (07/19/2022 08:33) PAIN SCREEN: Patient is having significant pain that they wo uld like to talk to their provider about today. Old (Chronic) (began more than 6 months ago) Patient states their average pain this past wee k is 6 Patient states the average number on how the ch ronic pain affects their enjoyment of life the past week is 6 Patient states during the past week the average number on how the pain has interfered with their general activity is 0 /mikal/ AMRIK VALLEJO LPN, LPN Signed: 07/19/2022 08:37
--- OUTSIDE RECORDS SUMMARY | 2022-07-22 15:21 | XMS_ITS | Clinical Summary ---
:1950 Author Organization [facility] Address [address] [place] [address] Care Team Providers Name Role Phone [facility] Unavailable [phone] Md Craig Primary Care Provider Unavailable Allergies No known active allergies Medications Medication Sig Dispensed Refills Start End Date Status Date Adalimumab 40 mg/0.8 mL Inject 40 mg 0 Active SubQ injection under the skin every 14 (fourteen) days. amiodarone (CORDARONE) 200 Take 200 mg by 0 Active mg oral tablet mouth once daily. apixaban (ELIQUIS) 5 mg Take 5 mg by 0 Active oral tablet mouth twice a day. aspirin 81 mg oral enteric Take 81 mg by 0 Active coated tablet mouth once daily. atorvastatin (LIPITOR) 80 Take 80 mg by 0 Active mg oral tablet mouth once daily. Carboxymethylcellulose Instill 1 drop 0 Active Sodium 0.25 % Opht Drop into EACH eye every 6 (six) hours as needed. cholecalciferol, vitamin Take 25 mcg by 0 Active D3, 25 mcg, 1000 unit, 25 mouth once mcg (1,000 unit) oral daily. tablet cyanocobalamin 1,000 mcg Take 1,000 mcg 0 Active oral tablet by mouth once daily. fluticasone (FLONASE) 50 Instill 1 spray 0 Active mcg/actuation nasal spray into EACH nare ONCE DAILY. folic acid (FOLVITE) 1 mg Take 1 mg by 0 Active oral tablet mouth once daily. isosorbide mononitrate Take 30 mg by 0 Active (IMDUR) 60 mg oral mouth once extended release tablet 24 daily. HR loratadine (CLARITIN) 10 Take 10 mg by 0 Active mg oral tablet mouth once daily. metoprolol tartrate Take 50 mg by 0 Active (LOPRESSOR) 50 mg oral mouth twice a tablet day. pantoprazole (PROTONIX) 40 Take 40 mg by 0 Active mg oral delayed release mouth once tablet daily. predniSONE (DELTASONE) 10 Take 10 mg by 0 Active mg oral tablet mouth once daily. sulfaSALAzine (AZULFIDINE) Take 1,000 mg 0 Active 500 mg oral tablet by mouth twice a day. acetaminophen (TYLENOL) Take 2 tablets 0 Active 500 mg oral tablet (1,000 mg) by 2 mouth three times a day. lidocaine 4% (SALONPAS) 4 Apply 1-3 15 patch 0 Active % Top patch patches to skin 2 once daily. Keep on for 12 hours and remove for 12 hours. methocarbamoL (ROBAXIN) Take 0.5-1 20 tablet 0 Active 500 mg oral tablet tablets 2 (250-500 mg) by mouth every 6 (six) hours as needed (muscle pain). oxyCODONE, immediate Take 0.5-1 15 tablet 0 Active release, (ROXICODONE) 5 mg tablets (2.5-5 2 oral tablet mg) by mouth every 4 (four) hours as needed. polyethylene glycol Take 17 g by 0 Active (MIRALAX) 17 gram oral mouth twice a 2 packet day. Mix each dose in 4-8 ounces of liquid as directed. hemorrhoidal 0.25-14-74.9 Apply 1 57 g 0 Active % Rectal Oint Application to 2 skin four times a day as needed. gabapentin (NEURONTIN) 300 Take 1 capsule 42 capsule 0 07/05/20 mg oral (300 mg) by 2 22 capsuleIndications: mouth three neuropathic pain times a day for 14 days Indications: neuropathic pain. cephalexin (KEFLEX) 500 mg Take 1 capsule 14 capsule 0 06/28/20 oral capsuleIndications: (500 mg) by 01 08 URINARY TRACT INFECTION mouth four times a day for 14 doses Indications: URINARY TRACT INFECTION. tamsulosin (FLOMAX) 0.4 mg Take 1 capsule 0 06/25/20 2 06/28/20 oral capsule (0.4 mg) by 2 22 mouth once daily for 3 doses. senna-docusate (SENNA-S) Take 2 tablets 56 tablet 0 07/08/20 8.6-50 mg oral tablet by mouth twice 2 22 a day for 14 days. 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 COPD (chronic obstructive pulmonary disease) 2 Encounters Date Type Specialty Care Team Description 06/18/2022 - Hospital Encounter Brenda Fair dental fall from 06/24/2022 MD Carla bed Brenda Saini MD 06/18/2022 Travel from Last 3 Months Immunizations Name Administration Dates Next Due Tdap >7 yrs 06/18/2022 () Social History Tobacco Use Types Packs/Day Years Used Date Smoking Tobacco: Former Alcohol Use Standard Drinks/Week Comments Yes 0 (1 standard drink = 0.6 oz pure alcoho l) Sex Assigned at Date Recorded Not on file Last Filed Vital Signs Vital Sign Reading Time Taken Comments Blood Pressure 101/76 06/24/2022 3:27 PM CDT Pulse 69 06/24/2022 3:27 PM CDT Temperature 37.1 ??C (98.7 ??F) 06/24/2022 3:27 PM CDT Respiratory Rate 18 06/24/2022 3:27 PM CDT Oxygen Saturation 92% 06/24/2022 3:27 PM CDT Inhaled Oxygen Concentration - - Weight 54 kg (119 lb) 06/18/2022 4:17 PM CDT Height 157.5 cm (5' 2) 06/18/2022 4:17 PM CDT Body Mass Index 21.77 06/18/2022 4:17 PM CDT Plan of Treatment Health Maintenance Due Date Last Done Comments AAA Ultrasound Screening 1950 Colonoscopy 1950 Hepatitis C Screening 1950 COVID-19 Vaccine (#1) 1950 Spirometry 10/28/1952 Adult Tetanus Booster 1967 Zoster Vaccine (1 of 2) 1998 Pneumococcal 65+ (1 - PCV) 2013 Influenza Vaccine (#1) 2022 Yearly Review of HCD 06/18/2023 06/18/2022 Procedures Procedure Name Priority Date/Time Associated Comments Diagnosis EXTRA TUBE PST Routine 06/24/2022 7:13 AM CDT CREATININE EGFR Add On 06/24/2022 7:13 AM Result s for this CDT procedure are i n the results section. HEMOGLOBIN Routine 06/24/2022 7:13 AM Results f or this CDT procedure are i n the results section. HEMOGLOBIN Routine 06/23/2022 5:37 AM Results f or this CDT procedure are i n the results section. CULT-URINE Add On 06/21/2022 3:09 AM Results f or this CDT procedure are i n the results section. URINALYSIS MICROSCOPY Routine 06/21/2022 3:09 AM Results for this (LAB USE ONLY) CDT procedure are in the results section. URINALYSIS Routine 06/21/2022 3:09 AM Results f or this MACROSCOPIC W/ CDT procedure are in MICROSCOPY, IF the results INDICATED (DOES NOT section. INC CULTURE) CREATININE EGFR Routine 06/20/2022 6:26 AM Result s for this CDT procedure are i n the results section. MAGNESIUM Routine 06/20/2022 6:26 AM Results f or this CDT procedure are i n the results section. POTASSIUM Routine 06/20/2022 6:26 AM Results f or this CDT procedure are i n the results section. POCT GLU METER Routine 06/19/2022 7:55 AM Results for this CDT procedure are i n the results section. MAGNESIUM Routine 06/19/2022 4:51 AM Results f or this CDT procedure are i n the results section. BASIC METAB PROFILE Routine 06/19/2022 4:51 AM Re sults for this CDT procedure are i n the results section. CBC Routine 06/19/2022 4:51 AM Results f or this (HGB,HCT,WBC,RBC,PLAT CDT proced ure are in ELET) the results section. POCT GLU METER Routine 06/19/2022 1:47 AM Results for this CDT procedure are i n the results section. POCT GLU METER Routine 06/18/2022 7:44 PM Results for this CDT procedure are i n the results section. MRI SPINE CERVICAL RIANA 06/18/2022 7:28 PM Res ults for this W/O CON CDT procedure are i n the results section. XR SPINE CERVICAL 2 Routine 06/18/2022 5:52 PM Re sults for this OR 3 VIEWS CDT procedure are i n the results section. XR WRIST 3 VW BILAT STAT 06/18/2022 3:54 PM Re sults for this CDT procedure are i n the results section. XR ELBOW RT 3 VIEW STAT 06/18/2022 3:50 PM Res ults for this CDT procedure are i n the results section. XR HAND 3 VW BILAT STAT 06/18/2022 3:49 PM Res ults for this CDT procedure are i n the results section. XR CHEST PA STAT 06/18/2022 3:45 PM Results f or this CDT procedure are i n the results section. CT ANGIO NECK STAT 06/18/2022 3:33 PM Results for this CDT procedure are i n the results section. CT OUTSIDE SPINE STAT 06/18/2022 1:[address] OUTSIDE HEAD STUDY STAT 06/18/2022 1:[address] OUTSIDE HEAD STUDY STAT 06/17/2022 12:00 AM CDT from Last 3 Months Results (ABNORMAL) Creatinine / eGFR (06/24/2022 7:13 AM CDT)Only the most recent of2 resultswithin the time period is included. Analysis Performed At Patho logist Time Signature CREATININE 1.18 (H) 0.60 - ATELLICA 06/24/2022 [facility] 1.10 ANALYZER 10:49 AM CDT HEALTH mg/dL LABORATORY EST GFR >60.00 >60.00 ATELLICA 06/24/2022 [facility] (CKD-EPI) mL/min/1. ANALYZER 10:49 AM CDT HEALTH 73m2 LABORATORY Comment: Calculation based on the Chroni c Kidney Disease Epidemiology Collaboration (CKD-EPI) equation refit without adjustm ent for race. Specimen Anatomical Collection Method Collection Time Receive d Time (Source) Location / / Volume Laterality Blood 06/24/2022 7:13 AM 7:39 CDT AM CDT Molly Garcia Pharm D CHEMISTRY ORDERABLE Performing Organization Address City/State/ZIP Code Phon e Number [place] [id number] [facility] [place] [address] LABORATORY (ABNORMAL) Hemoglobin (06/24/2022 7:13 AM CDT)Only the most recent of2 results within the time period is included. P athologist Signature HEMOGLOBIN 11.6 (L) 14.0 - 06/24/2022 [facility] 18.0 gm/dL 7:42 AM CDT HEALTH LABORATORY Specimen Anatomical Collection Method Collection Time Receive d Time (Source) Location / / Volume Laterality Blood Butterfly / 06/24/2022 7:13 AM 7:29 Unknown CDT AM CDT Melo Foley PA-C HEMATOLOGY ORDERABLE Performing Organization Address City/[facility]/ZIP Code Phon e Number [place] [id number] [place] [address] [phone] LABORATORY Extra Tube PST (Lab Use Only) (06/24/2022 7:13 AM CDT) Specimen Anatomical Collection Method Collection Time Receive d Time (Source) Location / / Volume Laterality Blood 06/24/2022 7:13 AM 7:39 CDT AM CDT Megan Moreno RN CHEMISTRY ORDERABLE Performing Organization Address City/[facility]/ZIP Code Phon e Number [address] [address] LABORATORY (ABNORMAL) Urinalysis Microscopy (Lab Use Only) (06/21/2022 3:09 AM CDT) Patholo gist Method Time Signature WBC-UA MICRO 1-4 None Seen, 06/21/2022 [facility] Occasional 3:44 AM CDT HEALTH , Few, 1-4 LABORATORY /hpf RBC-UA Packed None Seen, 06/21/2022 [facility] Field (A) Occasional 3:44 AM CDT HEALTH , 1-2 /hpf LABORATORY Specimen Anatomical Collection Method Collection Time Receive d Time (Source) Location / / Volume Laterality Urine URINE SPECIMEN 06/21/2022 3:09 AM 022 3:11 OBTAINED VIA CDT AM CDT [place]LL[facility] URINARY CATHETER / Unknown Faby G Haydee GEAR ROLLER, PERIOPERATIVE NURSE URINE ORDERABLE Performing Organization Address City/State/ZIP Code Phon e Number [facility] [address] [place] [address] LABORATORY (ABNORMAL) Urinalysis Macroscopic w/ Microscopy, if indicated (Does not inc culture) (06/21/2022 3:09 AM CDT) [facility] Method Time Signature GLUCOSE, UA Negative Negative 06/21/2022 [place] mg/dL 3:44 AM [facility] LABORATORY KETONE, UA Negative Negative 06/21/2022 [place] mg/dL 3:44 AM [facility] BILIRUBIN, UA Small (A) Negative 06/21/2022 [place] 3:44 AM [facility] LABORATORY PROTEIN, UA 30 (A) Negative 06/21/2022 [place] mg/dL 3:44 AM [facility] LABORATORY OCCULT BLOOD, Large (A) Negative, 06/21/2022 [place] UA Trace 3:44 AM [facility] LABORATORY WBC ESTERASE, Moderate (A) Negative, 06/21/2022 [place] UA Trace 3:44 AM [facility] LABORATORY NITRITE, UA Negative Negative 06/21/2022 [place] 3:44 AM [facility] pH Urine 6.0 5.0 - 8.0 06/21/2022 [place] 3:44 AM [facility] LABORATORY Specific 1.010 (A) 1.015 - 06/21/2022 [place], UA 1.025 3:44 AM [facility] LABORATORY Urobilinogen, 0.2 0.2 - 1.0 06/21/2022 [place] UA EU/dL 3:44 AM [facility] LABORATORY Specimen Anatomical Collection Method Collection Time Receive d Time (Source) Location / / Volume Laterality Urine URINE SPECIMEN 06/21/2022 3:09 AM 022 3:11 OBTAINED VIA CDT AM CDT [facility]LL[facility] URINARY CATHETER / Unknown Faby Hubbard APRN, CNP URINE ORDERABLE Performing Organization Address City/State/ZIP Code Phon e Number [facility] [address] [place] [address] LABORATORY (ABNORMAL) Urine Culture (06/21/2022 3:09 AM CDT) Patholo gist Method Time Signature Urine Culture 50,000 - MARYLOU 06/24/2022 [facility] 100,000 7:48 AM CDT [facility] cfu/ml of LABORATORY Staph. sp. not S.aureus (A) Specimen Anatomical Collection Method Collection Time Receive d Time (Source) Location / / Volume Laterality Urine URINE SPECIMEN 06/21/2022 3:09 AM 022 3:11 OBTAINED VIA CDT AM CDT INDWELLING URINARY CATHETER / Unknown Narrative [facility] LABORATORY - 06/24 7:48 AM CDT For symptomatic patients, correlate culture results in context of clinical findings. Screening for an d treatment of asymptomatic bacteriuria in adults 18 years and older is not recommended in ANY patient groups except in or patients anticipating urologic surgery. Organism Antibiotic Method Susceptibility Staph. sp. not S.aureus Doxycycline MARYLOU 1.00: Se nsitive Staph. sp. not S.aureus Levofloxacin MARYLOU <=0.12: Sensitive Staph. sp. not S.aureus Nitrofurantoin MARYLOU <=16.00: Sensitive Staph. sp. not S.aureus Oxacillin MARYLOU <=0.25: Sensitive Staph. sp. not S.aureus Tetracycline MARYLOU 2.00: Se nsitive Staph. sp. not S.aureus Trimethoprim/Sulfamethoxazole MARYLOU <=10: Sensitive Faby Hubbard APRN, CNP MICROBIOLOGY ORDERABLE Performing Organization Address City/[facility]/ZIP Code [facility] e Number [facility] [address] [place] [address] LABORATORY Magnesium (06/20/2022 6:26 AM CDT)Only the most recent of2 resultswithin the time period is included. P athologist Signature Magnesium 1.6 1.6 - 2.6 ATELLICA 06/20/2022 [facility] mg/dL ANALYZER 7:22 AM CDT [facility] LABORATORY Specimen Anatomical Collection Method Collection Time Receive d Time (Source) Location / / Volume Laterality Blood 06/20/2022 6:26 AM 6:58 CDT AM CDT Judith Guerrero PA-C CHEMISTRY ORDERABLE Performing Organization Address City/State/ZIP Code Phon e Number [facility] [address] [place] [address] LABORATORY Potassium, Serum (06/20/2022 6:26 AM CDT) athologist [facility] POTASSIUM 4.2 3.4 - 5.1 ATELLICA 06/20/2022 [facility] mmol/L ANALYZER 7:15 AM [facility] LABORATORY Specimen Anatomical Collection Method Collection Time Receive d Time (Source) Location / / Volume Laterality Blood 06/20/2022 6:26 AM 2 6:58 CDT AM CDT Judith Guerrero PA-C CHEMISTRY ORDERABLE Performing Organization Address City/[facility]/ZIP Code Phon e Number [place] [address] [place] [address] LABORATORY POCT Glucose Meter (06/19/2022 7:55 AM CDT)Only the most recent of3 results within the time period is included. [facility] GLUCOSE WB 81 60 - 100 06/19/2022 [facility] METER mg/dL 8:19 AM [facility] LABORATORY Specimen Anatomical Collection Method Collection Time Receive d Time (Source) Location / / Volume Laterality Blood 06/19/2022 7:55 AM 2 8:19 CDT AM CDT Brenda Saini MD LAB POINT OF CARE TEST RESUL TS Performing Organization Address City/[facility]/ZIP Code Phon e Number [place] [address] [address] [place] [address] LABORATORY (ABNORMAL) Basic Metab Profile (06/19/2022 4:51 AM CDT) athologist Signature SODIUM 140 136 - 145 ATELLICA 06/19/2022 [facility] mmol/L ANALYZER 6:24 AM [facility] LABORATORY POTASSIUM 4.4 3.4 - 5.1 ATELLICA 06/19/2022 [facility] mmol/L ANALYZER 6:24 AM [facility] LABORATORY Comment: Interpret with caution, specime n slightly hemolyzed. Results may be affected CHLORIDE 107 98 - 108 ATELLICA 06/19/2022 6:24 [facility] mmol/L ANALYZER AM [facility] LABORATORY CARBON DIOXIDE 22 20 - 31 [facility] 06/[facility] 6:24 [facility] mmol/L ANALYZER AM [facility] LABORATORY BUN (UREA NITRO) 19 9 - 23 mg/dL [facility] 06/19/2022 6:24 [facility] ANALYZER AM [facility] LABORATORY CREATININE 1.19 (H) 0.60 - 1.10 [facility] 06/19/2022 6:24 [facility] IAL mg/dL ANALYZER AM [facility] LABORATORY EST GFR >60.00 >60.00 [facility] 06/19/2022 6:24 [facility] (CKD-EPI) mL/min/1.73m ANALYZER AM [facility] 2 LABORATORY Comment: Calculation based on the Chroni c Kidney Disease Epidemiology Collaboration (CKD-EPI) equation refit without adjustm ent for race. GLUCOSE 98 74 - 106 [facility] 06/19/2022 6:24 [facility] mg/dL ANALYZER AM [facility] LABORATORY CALCIUM, SERUM 9.2 8.7 - 10.4 [facility] 06/19/2022 6:24 [facility] mg/dL ANALYZER AM [facility] LABORATORY ANION GAP 11.0 0.0 - 15.0 [facility] 06/19/2022 6:24 [facility] mmol/L ANALYZER AM [facility] LABORATORY Specimen Anatomical Collection Method Collection Time Receive d Time (Source) Location / / Volume Laterality Blood 06/19/2022 4:51 AM 5:49 CDT AM CDT Judith Guerrero PA-C CHEMISTRY ORDERABLE Performing Organization Address City/State/ZIP Code Phon e Number [facility] [address] [place] [address] LABORATORY (ABNORMAL) CBC (HGB,HCT,WBC,RBC,Platelet) (06/19/2022 4:51 AM CDT) [facility] gist Method Time Signature WBC 9.2 4.3 - 10.8 06/19/2022 [facility] K/uL 6:00 AM [facility] LABORATORY RBC 3.53 (L) 4.60 - 06/19/2022 [facility] 6.20 M/uL 6:00 AM [facility] LABORATORY HEMOGLOBIN 12.4 (L) 14.0 - 06/19/2022 [facility] 18.0 gm/dL 6:00 AM CDT HEALTH LABORATORY HEMATOCRIT 37.9 (L) 40.0 - 06/19/2022 [facility] 54.0 % 6:00 AM CDT HEALTH LABORATORY MCV 107 (H) 80 - 100 06/19/2022 [facility] fl 6:00 AM CDT HEALTH LABORATORY MCH 35 (H) 27 - 33 pg 06/19/2022 [facility] 6:00 AM CDT HEALTH LABORATORY MCHC 33 33 - 36 06/19/2022 [facility] gm/dL 6:00 AM CDT HEALTH LABORATORY RDW 14.2 11.5 - 06/19/2022 [facility] 14.5 % 6:00 AM CDT HEALTH LABORATORY PLATELET COUNT 191 150 - 400 06/19/2022 [facility] K/UL 6:00 AM T HEALTH LABORATORY MPV 10.7 6.5 - 12 06/19/2022 [facility] 6:00 AM CDT HEALTH LABORATORY Specimen Anatomical Collection Method Collection Time Receive d Time (Source) Location / / Volume Laterality Blood 06/19/2022 4:51 AM 5:51 CDT AM CDT Judith Guerrero PA-C HEMATOLOGY ORDERABLE Performing Organization Address City/State/ZIP Code Phon e Number [facility] [address] [place] [address] LABORATORY MRI SPINE CERVICAL W/O CON (06/18/2022 7:28 PM CDT) Anatomical Region Laterality Modality Spine Magnetic Resonance Specimen (Source) Anatomical Collection Method Collection Time Re ceived Time Location / / Volume Laterality 06/18/2022 7:23 PM CDT Impressions 06/18/2022 7:35 PM CDT IMPRESSION: 1. ??MR confirmation of segmental intram edullary T2 prolongation from C3-4 to C6, which could reflect cord edema from high-grade degenerative central canal stenosis or posttraumatic cord contusion. No hemorrhagic component is identified. 2. ??C5 fracture is better visualized on the prior CT exam. 3. ??Mild prevertebral edema from lower C2 to the cervicothoracic junction. Additional dorsal interspinous ligamentous sprain at the mid cervical spine. 4. ??Grade 1 anterolisthesis at C2-C3 as well as retrolisthesis from C3-4 to C4-5. 5. ??Multilevel cervical spondylosis res ulting in severe C4-5 and C5-C6 central canal stenosis. Effacement of intrathecal CSF with active cord compression and ventral cord flattening at both interspace levels. Additional moderate C6-7 and mil d to moderate C3-4 central canal stenosis, without cord compression at those two levels. 6. ??Severe osseous neural foraminal lashell nosis at C4-5 bilaterally, right C5-6 and bilaterally C6-7. Lesser neural foraminal stenosis elsewhere as described. REPORT SIGNED BY Blane Mendoza M.D. Narrative 06/18/2022 7:35 PM CDT EXAM: MRI SPINE CERVICAL W/O CON DATE: 06/18/2022 7:16 PM CLINICAL DATA: Cord Compression / Stenos is. C5 fractures. ICD 10: S12.490A Other displaced fractur e of fifth cervical vertebra, initial encounter for closed fracture S09.90XA Unspecified injury of head, initial encounter S00.01XA Abrasion of scalp, initial encounter COMPARISON: 06/18/2022 CT TECHNIQUE: Sagittal FLAIR T1, sagittal F SE T2, sagittal STIR, axial fat- saturated FSE T2, axial T1. ?? FINDINGS: ??Segmental abnormal intramedu llary T2 prolongation from C3-4 to C6 is apparent. Abnormal intramedullary mass is identified. Remaining cervical and upper thoracic spinal cord appears normal. C ervicomedullary junction is unremarkable . Visualized posterior fossa is without mass lesion. ?? C5 spinous fracture extends to the right lamina, better visualized on the cervical spine CT. Mild dorsal interspinous ligamentous sprain from C3 to C5-C6 is apparent. Additional mild prevertebral edema extends from mid C2 to the cervicothorac ic junction. A one anterolisthesis at C2-3 as well as retrolisthesis from C3-4 to C4-5, unchanged. Vertebral height is maintained. Marrow signal appears benign, w ith Modic type I discogenic endplate mar row changes from C4-5 to C6-7. Prominent disc degeneration with ankylosing across the C3-4 interspace is noted. ?? By intervertebral disc levels: C2-3: Left greater than right facet arth rosis. Patent central canal and right neural foramen. Mild left neural foraminal stenosis. C3-4: Prominent degeneration with ankylo sing. Disc osteophyte complex narrows the ventral and dorsal subarachnoid spaces. No active cord compression. Facet arthrosis bilaterally. Uncovertebral hypertrop hy with moderate neural foraminal stenos is bilaterally. C4-5: Prominent disc osteophyte complex. Effacement of intrathecal CSF. Active cord compression with ventral cord flattening. Facet arthrosis bilaterally. Uncovertebral hypertrophy with severe neural foraminal stenosis bilaterally. C5-6: Prominent disc osteophyte complex. Effacement of intrathecal CSF. Active cord compression with low-grade ventral cord flattening. Facet arthrosis bilaterally. Uncovertebral hypertrophy with severe right and moderate left neural foramina l stenosis. C6-7: Broad-based disc osteophyte comple x. Effacement of intrathecal CSF. No active cord compression or deformity. Facet arthrosis bilaterally. Uncovertebral hypertrophy with severe neural foraminal stenosis bilaterally. C7-T1: Patent central canal and neural f oramina. Procedure Note Blane Mendoza MD - 06/18/2022Form atting of this note might be different from the original. EXAM: MRI SPINE CERVICAL W/O CON DATE: 06/18/2022 7:16 PM CLINICAL DATA: Cord Compression / Stenos is. C5 fractures. ICD 10: S12.490A Other displaced fractur e of fifth cervical vertebra, initial encounter for closed fracture S09.90XA Unspecified injury of head, initial encounter S00.01XA Abrasion of scalp, initial encounter COMPARISON: 06/18/2022 CT TECHNIQUE: Sagittal FLAIR T1, sagittal F SE T2, sagittal STIR, axial fat- saturated FSE T2, axial T1. FINDINGS: Segmental abnormal intramedull [place] T2 prolongation from C3-4 to C6 is apparent. Abnormal intramedullary mass is identified. Remaining cervical and upper thoracic spinal cord appears normal. Cervicomedullary junction is unremarkable. Visualized pos terior fossa is without mass lesion. C5 spinous fracture extends to the right lamina, better visualized on the cervical spine CT. Mild dorsal interspinous ligamentous sprain from C3 to C5-C6 is apparent. Additional mild prevertebral edema extends from mid C2 to the cervicothoracic junction. A one a nterolisthesis at C2-3 as well as retrolisthesis from C3-4 to C4-5, unchanged. Vertebral height is maintained. Marrow signal appears benign, with Modic type I discogenic endplate marrow changes from C4-5 to C6- 7. Prominent disc degeneration with ankylosing across the C3-4 interspace is noted. By intervertebral disc levels: C2-3: Left greater than right facet arth rosis. Patent central canal and right neural foramen. Mild left neural foraminal stenosis. C3-4: Prominent degeneration with ankylo sing. Disc osteophyte complex narrows the ventral and dorsal subarachnoid spaces. No active cord compression. Facet arthrosis bilaterally. Uncovertebral hypertrophy with moderate neural foraminal stenosis bilat erally. C4-5: Prominent disc osteophyte complex. Effacement of intrathecal CSF. Active cord compression with ventral cord flattening. Facet arthrosis bilaterally. Uncovertebral hypertrophy with severe neural foraminal stenosis bilaterally. C5-6: Prominent disc osteophyte complex. Effacement of intrathecal CSF. Active cord compression with low-grade ventral cord flattening. Facet arthrosis bilaterally. Uncovertebral hypertrophy with severe right and moderate left neural foraminal stenosis. C6-7: Broad-based disc osteophyte comple x. Effacement of intrathecal CSF. No active cord compression or deformity. Facet arthrosis bilaterally. Uncovertebral hypertrophy with severe neural foraminal stenosis bilaterally. C7-T1: Patent central canal and neural f oramina. IMPRESSION IMPRESSION: 1. MR confirmation of segmental intramed ullary T2 prolongation from C3-4 to C6, which could reflect cord edema from high-grade degenerative central canal stenosis or posttraumatic cord contusion. No hemorrhagic component is identified. 2. C5 fracture is better visualized on t he prior CT exam. 3. Mild prevertebral edema from lower C2 to the cervicothoracic junction. Additional dorsal interspinous ligamentous sprain at the mid cervical spine. 4. Grade 1 anterolisthesis at C2-C3 as w ell as retrolisthesis from C3-4 to C4-5. 5. Multilevel cervical spondylosis resul ting in severe C4-5 and C5-C6 central canal stenosis. Effacement of intrathecal CSF with active cord compression and ventral cord flattening at both interspace levels. Additional moderate C6-7 and mild to mod erate C3-4 central canal stenosis, without cord compression at those two levels. 6. Severe osseous neural foraminal steno sis at C4-5 bilaterally, right C5-6 and bilaterally C6-7. Lesser neural foraminal stenosis elsewhere as described. REPORT SIGNED BY Blane Mendoza M.D. Edna Brianda Barragan PA-C MRI ORDERABLE XR SPINE CERVICAL 2 OR 3 VIEW (06/18/2022 5:52 PM CDT) Anatomical Region Laterality Modality Spine Computed Radiography Specimen (Source) Anatomical Collection Method Collection Time Re ceived Time Location / / Volume Laterality 06/18/2022 5:59 PM CDT Impressions 06/18/2022 6:01 PM CDT IMPRESSION: Three view cervical spine series. C5 fractures are not well delineated rad iographically. Stable grade 1 anterolisthesis at C2-3 a nd retrolisthesis from C3-4 to C5-6. Ankylosing across the C3-4 interspace, unchanged. Levoconvex upper thoracic scoliosis, stable. There is no abnormal preverteb ral edema. Multilevel cervical spondylos is, unchanged. REPORT SIGNED BY Blane Mendoza M.D. Narrative 06/18/2022 6:01 PM CDT EXAM: ??XR SPINE CERVICAL 2 OR 3 VIEWS ?? DATE: 06/18/2022 5:50 PM CLINICAL DATA: Fracture. Reported C5 spi nous process and right lamina fractures. ICD 10: S12.490A Other displaced fractur e of fifth cervical vertebra, initial encounter for closed fracture S09.90XA Unspecified injury of head, initial encounter S00.01XA Abrasion of scalp, initial encounter COMPARISON: CT 06/18/2022 FINDINGS/ Procedure Note Blane Mendoza MD - 06/18/2022Form atting of this note might be different from the original. EXAM: XR SPINE CERVICAL 2 OR 3 VIEWS DATE: 06/18/2022 5:50 PM CLINICAL DATA: Fracture. Reported C5 spi nous process and right lamina fractures. ICD 10: S12.490A Other displaced fractur e of fifth cervical vertebra, initial encounter for closed fracture S09.90XA Unspecified injury of head, initial encounter S00.01XA Abrasion of scalp, initial encounter COMPARISON: CT 06/18/2022 FINDINGS/ IMPRESSION IMPRESSION: Three view cervical spine se asad. C5 fractures are not well delineated rad iographically. Stable grade 1 anterolisthesis at C2-3 a nd retrolisthesis from C3-4 to C5-6. Ankylosing across the C3-4 interspace, unchanged. Levoconvex upper thoracic scoliosis, stable. There is no abnormal prevertebral edema. Multilevel cervical spondylosis, unchang ed. REPORT SIGNED BY Blane Mendoza M.D. Edna Lamar Yung TAVARES XRAY ORDERABLE XR WRIST 3 VW BILAT (06/18/2022 3:54 PM CDT) Anatomical Region Laterality Modality Extremity Computed Radiography Specimen (Source) Anatomical Collection Method Collection Time Re ceived Time Location / / Volume Laterality 06/18/2022 4:01 PM CDT Impressions 06/18/2022 4:08 PM CDT IMPRESSION: 1. ??Extensive bilateral degenerative ch anges. 2. ??Irregularity of the midshaft of the left first metacarpal bone which is felt to most likely represent remote fracture, however it should lateral view is not obtained and would recommend correlation for pain over this area. REPORT SIGNED BY DR. JOSE LUIS ARGUELLO Narrative 06/18/2022 4:08 PM CDT EXAM: ??XR WRIST 3 VW BILAT, XR HAND 3 VW BILAT DATE: ?? 06/18/2022 3:51 PM CLINICAL DATA: ??S12.490A Other displace d fracture of fifth cervical vertebra, initial encounter for closed fracture S09.90XA Unspecified injury of head, initial encounter S00.01XA Abrasion of scalp, initial encounter ADDITIONAL CLINICAL DATA: ??Trauma ?? COMPARISON: ??None. NUMBER OF VIEWS: ??12 FINDINGS: ?? There is some deformity of the midshaft of the left first metacarpal bone. ??This appears to represent an old fracture, but a true lateral view is not obtained. ??There are extensive bilateral degenerat izzy changes of the bilateral hands and w rists. ??This includes widening of the bilateral scapholunate interval with proximal migration of the bilateral capitate bones. ??Extensive joint space narrowing and subchondral bony sclerosis and cyst formation in the distal radius and ulna, intercarpal bones, base of the metacarpal bones. ??There is also degenerative changes with hypertrophic bony formation in the distal second metacarpal bone. ??Billings bluxation of the left third metacarpal phalangeal joint and right second through fourth intercarpal phalangeal joints. ??Degenerative narrowing with joint space n arrowing and hypertrophic bony spurring in the bilateral interphalangeal joints. Procedure Note Ede Arguello MD - 06/18/2022Forma tting of this note might be different from the original. EXAM: XR WRIST 3 VW BILAT, XR HAND 3 VW BILAT DATE: 06/18/2022 3:51 PM CLINICAL DATA: S12.490A Other displaced fracture of fifth cervical vertebra, initial encounter for closed fracture S09.90XA Unspecified injury of head, initial encounter S00.01XA Abrasion of scalp, initial encounter ADDITIONAL CLINICAL DATA: Trauma COMPARISON: None. NUMBER OF VIEWS: 12 FINDINGS: There is some deformity of the midshaft of the left first metacarpal bone. This appears to represent an old fracture, but a true lateral view is not obtained. There are extensive bilateral degenerative changes of the bilateral hands and wrists. This include s widening of the bilateral scapholunate interval with proximal migration of the bilateral capitate bones. Extensive joint space narrowing and subchondral bony sclerosis and cyst formation in the distal radius and ulna, intercarpal bones, base of the metacarpal bones. There is also degenerative changes with hypertrophic bony formation in the distal second metacarpal bone. Subluxation of the left third metacarpal phalangeal joint and right second through fourth intercarpal phalangeal joints. Degenerative narrowing with joint space narrowing and hypertrophic bony spurring in the bilateral interphalangeal joints. IMPRESSION IMPRESSION: 1. Extensive bilateral degenerative hill ges. 2. Irregularity of the midshaft of the l eft first metacarpal bone which is felt to most likely represent remote fracture, however it should lateral view is not obtained and would recommend correlation for pain over this area. REPORT SIGNED BY DR. JOSE LUIS ARGUELLO Brenda Fair MD XRAY ORDERABLE XRAY ELBOW RIGHT (06/18/2022 3:50 PM CDT) Anatomical Region Laterality Modality Extremity Computed Radiography Specimen (Source) Anatomical Collection Method Collection Time Re ceived Time Location / / Volume Laterality 06/18/2022 4:07 PM CDT Impressions 06/18/2022 4:07 PM CDT IMPRESSION: 1. ??Advanced degenerative changes of th e elbow. No fracture or dislocation. 2. ??No effusion. 3. ??Vascular calcifications. REPORT SIGNED BY DR. Carlos Rojas Narrative 06/18/2022 4:07 PM CDT EXAM: XR ELBOW RT 3 VIEW ?? DATE: 06/18/2022 3:44 PM CLINICAL DATA: Trauma VIEWS: Frontal, oblique, and lateral vie ws of the elbow were obtained. FINDINGS/ Procedure Note de Carlos Gonzalez MD - 06/18/2022Fo rmatting of this note might be different from the original. EXAM: XR ELBOW RT 3 VIEW DATE: 06/18/2022 3:44 PM CLINICAL DATA: Trauma VIEWS: Frontal, oblique, and lateral vie ws of the elbow were obtained. FINDINGS/ IMPRESSION IMPRESSION: 1. Advanced degenerative changes of the elbow. No fracture or dislocation. 2. No effusion. 3. Vascular calcifications. REPORT SIGNED BY DR. Carlos Rojas Brenda Fair MD XRAY ORDERABLE XR HAND 3 VW BILAT (06/18/2022 3:49 PM CDT) Anatomical Region Laterality Modality Extremity Computed Radiography Specimen (Source) Anatomical Collection Method Collection Time Re ceived Time Location / / Volume Laterality 06/18/2022 4:01 PM CDT Impressions 06/18/2022 4:08 PM CDT IMPRESSION: 1. ??Extensive bilateral degenerative ch anges. 2. ??Irregularity of the midshaft of the left first metacarpal bone which is felt to most likely represent remote fracture, however it should lateral view is not obtained and would recommend correlation for pain over this area. REPORT SIGNED BY DR. JOSE LUIS ARGUELLO Narrative 06/18/2022 4:08 PM CDT EXAM: ??XR WRIST 3 VW BILAT, XR HAND 3 VW BILAT DATE: ?? 06/18/2022 3:51 PM CLINICAL DATA: ??S12.490A Other displace d fracture of fifth cervical vertebra, initial encounter for closed fracture S09.90XA Unspecified injury of head, initial encounter S00.01XA Abrasion of scalp, initial encounter ADDITIONAL CLINICAL DATA: ??Trauma ?? COMPARISON: ??None. NUMBER OF VIEWS: ??12 FINDINGS: ?? There is some deformity of the midshaft of the left first metacarpal bone. ??This appears to represent an old fracture, but a true lateral view is not obtained. ??There are extensive bilateral degenerat izzy changes of the bilateral hands and w rists. ??This includes widening of the bilateral scapholunate interval with proximal migration of the bilateral capitate bones. ??Extensive joint space narrowing and subchondral bony sclerosis and cyst formation in the distal radius and ulna, intercarpal bones, base of the metacarpal bones. ??There is also degenerative changes with hypertrophic bony formation in the distal second metacarpal bone. ??Billings bluxation of the left third metacarpal phalangeal joint and right second through fourth intercarpal phalangeal joints. ??Degenerative narrowing with joint space n arrowing and hypertrophic bony spurring in the bilateral interphalangeal joints. Procedure Note Ede Arguello MD - 06/18/2022Forma tting of this note might be different from the original. EXAM: XR WRIST 3 VW BILAT, XR HAND 3 VW BILAT DATE: 06/18/2022 3:51 PM CLINICAL DATA: S12.490A Other displaced fracture of fifth cervical vertebra, initial encounter for closed fracture S09.90XA Unspecified injury of head, initial encounter S00.01XA Abrasion of scalp, initial encounter ADDITIONAL CLINICAL DATA: Trauma COMPARISON: None. NUMBER OF VIEWS: 12 FINDINGS: There is some deformity of the midshaft of the left first metacarpal bone. This appears to represent an old fracture, but a true lateral view is not obtained. There are extensive bilateral degenerative changes of the bilateral hands and wrists. This include s widening of the bilateral scapholunate interval with proximal migration of the bilateral capitate bones. Extensive joint space narrowing and subchondral bony sclerosis and cyst formation in the distal radius and ulna, intercarpal bones, base of the metacarpal bones. There is also degenerative changes with hypertrophic bony formation in the distal second metacarpal bone. Subluxation of the left third metacarpal phalangeal joint and right second through fourth intercarpal phalangeal joints. Degenerative narrowing with joint space narrowing and hypertrophic bony spurring in the bilateral interphalangeal joints. IMPRESSION IMPRESSION: 1. Extensive bilateral degenerative hill ges. 2. Irregularity of the midshaft of the l eft first metacarpal bone which is felt to most likely represent remote fracture, however it should lateral view is not obtained and would recommend correlation for pain over this area. REPORT SIGNED BY DR. JOSE LUIS ARGUELLO Brenda Fair MD XRAY ORDERABLE XRAY CHEST PA (06/18/2022 3:45 PM CDT) Anatomical Region Laterality Modality Chest Computed Radiography Specimen (Source) Anatomical Collection Method Collection Time Re ceived Time Location / / Volume Laterality 06/18/2022 4:05 PM CDT Impressions 06/18/2022 4:06 PM CDT IMPRESSION: 1. ??Right lung nodules better visualize d on recent CT of the neck. Nonemergent CT of the chest again identified. 2. ??No pneumothorax or effusion. REPORT SIGNED BY DR. Carlos Rojas Narrative 06/18/2022 4:06 PM CDT EXAM: XR CHEST PA ?? DATE: 06/18/2022 3:44 PM CLINICAL DATA: Trauma ??Additional Info: None ??Fall while intoxicated VIEWS: A PA view of the chest was obtain ed. FINDINGS: Lungs: Nodular opacities in the right miranda ng and pleural calcifications. No consolidation or effusion. Mediastinum: ??Tortuous calcified aorta. Pleural Spaces: No evidence of pneumotho rax or effusion. Osseous structures: No acute bony abnorm ality. Procedure Note de Carlos Gonzalez MD - 06/18/2022Fo rmatting of this note might be different from the original. EXAM: XR CHEST PA DATE: 06/18/2022 3:44 PM CLINICAL DATA: Trauma Additional Info: N one Fall while intoxicated VIEWS: A PA view of the chest was obtain ed. FINDINGS: Lungs: Nodular opacities in the right miranda ng and pleural calcifications. No consolidation or effusion. Mediastinum: Tortuous calcified aorta. Pleural Spaces: No evidence of pneumotho rax or effusion. Osseous structures: No acute bony abnorm ality. IMPRESSION IMPRESSION: 1. Right lung nodules better visualized on recent CT of the neck. Nonemergent CT of the chest again identified. 2. No pneumothorax or effusion. REPORT SIGNED BY DR. Carlos Rojas Brenda Fair MD XRAY ORDERABLE CT ANGIO NECK (06/18/2022 3:33 PM CDT) Anatomical Region Laterality Modality Neck Computed Tomography Specimen (Source) Anatomical Collection Method Collection Time Re ceived Time Location / / Volume Laterality 06/18/2022 3:37 PM CDT Impressions 06/18/2022 3:51 PM CDT Impression: 1. C5 fracture involving predominantly t he spinous process with minimal involvement of the right lamina unchanged in alignment compared to the outside cervical spine CT. 2. No evidence of traumatic injury to th e carotid or vertebral arteries. 3. Atherosclerotic disease resulting in 56% stenosis of the proximal right internal carotid artery as well as mild stenosis along the V2 segment of the left vertebral artery. 4. Multiple rounded subpleural nodules i n the visualized right upper lobe of the lung measuring up to 6 mm in size. These are indeterminate. Dedicated CT of the chest is suggested for further assessment. INCIDENTAL FINDING: This report includes a nonurgent finding for which imaging, clinical, or laboratory study follow-up is recommended. Report signed by Rito Alas Narrative 06/18/2022 3:51 PM CDT Examination: CT Angiography of theneck with Contrast 06/18/2022 3:19 PM Indication: Fall on and pelvis. C5 ras a fracture. Comparison: Outside CT cervical spine [place] rut 2021 Technique: CT angiography of the neck was performed helically follwoing intravenous administration of 100 cc Omnipaque 350. Findings: Lung Apices: Calcified pleural plaque al donato the right lung. Multiple subpleural nodules along the right lung apex with the largest measuring 6 mm. Osseous Structures: A C5 fracture is abdifatah ntified involving predominantly the spinous process with minimal involvement of the right lamina. This is unchanged. Aortic Arch: Three-vessel configuration aortic arch. No stenosis at the origins of the great vessels. Subclavian Arteries: No stenosis Vertebral Arteries: Atherosclerotic calc ification with mild stenosis along the V2 segment of the left vertebral artery. Carotid Arteries: Calcified and fibrofat ty plaque along the right carotid bulb and proximal right internal carotid artery. There is a 56% stenosis along the proximal right internal carotid artery. Calcified plaque along the left carotid bulb and proximal left internal carotid artery without hemodynamically significant stenosis. Intracranial Circulation: No significant stenosis. Procedure Note Rito Alas MD - 06/18/2022Formatting o f this note might be different from the original. Examination: CT Angiography of theneck w ith Contrast 06/18/2022 3:19 PM Indication: Fall on and pelvis. C5 ras a fracture. Comparison: Outside CT cervical spine [place] 2021 Technique: CT angiography of the neck was performed helically follwoing intravenous administration of 100 cc Omnipaque 350. Findings: Lung Apices: Calcified pleural plaque al donato the right lung. Multiple subpleural nodules along the right lung apex with the largest measuring 6 mm. Osseous Structures: A C5 fracture is abdifatah ntified involving predominantly the spinous process with minimal involvement of the right lamina. This is unchanged. Aortic Arch: Three-vessel configuration aortic arch. No stenosis at the origins of the great vessels. Subclavian Arteries: No stenosis Vertebral Arteries: Atherosclerotic calc ification with mild stenosis along the V2 segment of the left vertebral artery. Carotid Arteries: Calcified and fibrofat ty plaque along the right carotid bulb and proximal right internal carotid artery. There is a 56% stenosis along the proximal right internal carotid artery. Calcified plaque along the left carotid bulb and proximal left internal carotid artery without hemodynamically significant stenosis. Intracranial Circulation: No significant stenosis. IMPRESSION Impression: 1. C5 fracture involving predominantly t he spinous process with minimal involvement of the right lamina unchanged in alignment compared to the outside cervical spine CT. 2. No evidence of traumatic injury to th e carotid or vertebral arteries. 3. Atherosclerotic disease resulting in 56% stenosis of the proximal right internal carotid artery as well as mild stenosis along the V2 segment of the left vertebral artery. 4. Multiple rounded subpleural nodules i n the visualized right upper lobe of the lung measuring up to 6 mm in size. These are indeterminate. Dedicated CT of the chest is suggested for further assessment. INCIDENTAL FINDING: This report includes a nonurgent finding for which imaging, clinical, or laboratory study follow-up is recommended. Report signed by Rito Alas Brenda Fair MD CT ORDERABLE CT OUTSIDE SPINE STUDY (06/18/2022 1:02 PM CDT) Specimen (Source) Anatomical Location Collection Method / Collectio n Time Received Time / Laterality Volume Study Outside CT ORDERABLE CT OUTSIDE HEAD STUDY (06/18/2022 1:01 PM CDT)Only the most recent of2 results within the time period is included. Specimen (Source) Anatomical Location Collection Method / Collectio n Time Received Time / Laterality Volume Study Outside CT ORDERABLE from Last 3 Months Insurance Payer Benefit Plan / Subscriber ID Effective Phone Address T ype Group Dates MEDICARE MEDICARE PART [id number] 2022-Prese [address] Medicare [place] [address] [employer] [id number] 2022-Prese [facility] Government CHOICE PROGRAM [employer] nt [address] [place] [id number] Sara Barillas Personal/Family Self 1950 [address] [facility] (Home) [place] [address] Advance Directives For more information, please contact: [phone] Latest Code Status on File Code Status Date Activated Date Inactivated Comments Full Code 06/18/2022 4:19 PM 06/24/2022 10:50 PM How was code status determined? Patient Care Teams Japanese Tutor Relationship Specialty Start Date End Date Gwendolyn [facility] PCP - Primary Care Clinic 06/18/22 [facility] [place] [address] None, PCP - General 06/18/22
--- OUTSIDE RECORDS SUMMARY | 2022-07-22 15:21 | XMS_ITS | Continuity of Care Document ---
:1950 Author Organization [facility] Address [address] [address] [place] [address] Phone Care Team Providers Name Role Phone Paul Astorga MD Unavailable Unavailable Procedures Procedure Date Ugi Endo; W/bx / Init Hosp-da E&m Mod Severity Advance Directives Directive Yes / No Effective Date File Name No Information Encounters Encounter Practice Location Reason(s) Diagnoses Date Provider Provide rs Description For Visit Copied on Encounter ANA M Aguirre MIGI No Apr-0 [facility] Information MD [place], [address] [address], [place], [place], [place], [place] [address], [facility], [place] tel: , [place], [phone] , [place]. tel: [phone] MNGI Guan No Apr-0 Astorga Referring [facility] Information Provi maria: [facility], [address] [place] [address] [place] [id number] MD, [address] [place] [address], [place], [facility], [id number], [address], [place], [place], [place]: [place], [phone]. [phone] tel: , [place]. [id number] tel: [phone] Init Hosp-da MNGI Guan No Apr-0 [facility] Referring E&m Mod [facility] Information MD Bansal. Pro vider: [facility] [place], [facility] [address] [place] [address] [facility] [id number] MD, [address], [address] [place] [address], [phone], [place], [place], [place], [place], tel:[phone]. [id number] , [place]. tel: tel: [phone] Family History Family Member Type Diagnosis Age At Onset No Information Payers Payer name Insurance type Covered alliance party ID Authorization(s ) No Information Social History Type Description Quantity Date Captured Comments Sex Male Smoking Status No Information Chief Complaint And Reason For Visit No Information Reason For Referral Reason For Referral No Information Plan Of Treatment Date Type Action Status No Information History Of Present Illness Encounter Date Complaint History Of Present I llness No Information Functional Status Date Functional Assessment No Information Instructions Date Instruction Additional Informati on No Information Assessments Type Assessment Date No Information Patient Care Teams Name Effective Dates (start - stop) Status M ino No Information
--- OUTSIDE RECORDS SUMMARY | 2022-07-22 15:22 | XMS_ITS | Encounter Summary ---
:1950 Author Organization [facility] Address [address] [place] [id number] Care Team Providers Name Role Phone [facility] Unavailable [phone] Md Craig Primary Care Provider Unavailable Reason for Referral (Routine) - Open Specialty Diagnoses / Procedures Referred By Contact Refer red To Contact Melo Foley PA-C [facility] - [address] [place], [place] [address], [place] [address] [place] [address] [address] Brianda Burns [address] Phone: Fax: Referral ID Status Reason Start Date Expiration Date Visits Requ ested Visits Authorized [id number] Open 06/24/2022 1 1 Question Answer Specify time frame for follow up? 1 Week Instructions to follow-up provider acute urinary reten tion Comments You are advised to follow up with: Uroannel gandhi to follow up on acute urinary retention due to neck injury. If you have any ques tions or concerns, feel free to contact our Trauma [facility] at [phone] to reach us or make an appointment. (Routine) - Pending Review Specialty Diagnoses / Procedures Referred By Contact Refer red To Contact Procedures Melo Foley PA-C [facility] [address] [place] [address] Marcelle Aggarwal Discharge [place] [address] Referral ID Status Reason Start Date Expiration Date Visits V isits Requested Authorized [id number] Pending 06/20/2022 1 1 Review (Routine) - Open Specialty Diagnoses / Procedures Referred By Contact Refer red To Contact Procedures Melo Foley PA-C Discharge Instructions [address] [address] Referral ID Status Reason Start Date Expiration Date Visits Requ ested Visits Authorized [id number] Open 06/24/2022 1 1 (Routine) - Open Specialty Diagnoses / Procedures Referred By Contact Refer red To Contact Melo Foley PA-C None, Md [address] 2442 2 Referral ID Status Reason Start Date Expiration Date Visits Requ ested Visits Authorized [id number] Open 06/21/2022 1 1 Question Answer Specify time frame for follow up? 2 Weeks Instructions to follow-up provider post hospitalizatio n follow up Comments Please follow up with your primary care physician regarding your recent hospitalization and ongoing medical kwesi gement. (Routine) - Open Specialty Diagnoses / Procedures Referred By Contact Refer red To Contact Diagnoses Other closed displaced fracture of fifth cervical vertebra, initial encounter (HCC) Fall from bed, initial encounter Kaela Bhatti APRN, Procedures Discharge Supplies [employer]NAGER [employer] [address] [address] Referral ID Status Reason Start Date Expiration Date Visits Requ ested Visits Authorized [id number] Open 06/20/2022 1 1 (Routine) - Open Specialty Diagnoses / Procedures Referred By Contact Refer red To Contact Diagnoses Other closed displaced fracture of fifth cervical vertebra, initial encounter (HCC) Fall from bed, initial encounter Kaela Bhatti APRN, Procedures Discharge Equipment: Walker MANAGER [employer] [address] [place] [address] Referral ID Status Reason Start Date Expiration Date Visits Requ ested Visits Authorized [id number] Open 06/20/2022 1 1 (Routine) - Open Specialty Diagnoses / Procedures Referred By Contact Refer red To Contact Edna Barragan PA-[place] [address] [place], [place] [address] [address] [place] [address] Phone: Fax: Referral ID Status Reason Start Date Expiration Date Visits Requ ested Visits Authorized [id number] Open 06/20/2022 1 1 Question Answer Specify time frame for follow up? 4 Weeks Instructions to follow-up provider follow up central c ord syndrome and C5 fx Comments Call [phone] to schedule follow up appointment with [facility] in 4 weeks and arrange to have a upright ce rvical xray before arriving to your appointment. No lifting over 10 pounds. No driving. No bending/twisting or overhead lifting. Continue to wear your neck brac e (snug) at all times. Please change pads/liners daily. Reason for Visit Reason Comments Fall C5 FX Inpatient Admission Specialty Diagnoses / Procedures Referred By Contact Refer red To Contact Diagnoses C5 pedicle fracture (HCC) Referral ID Status Reason Start Date Expiration Date Visits Requ ested Visits Authorized [id number] 1 1 Encounter Details Date Type Department Care Team Description 06/18/2022 - Hospital W6 [facility] Fair [facility] [address] [facility] [address] [place], [place] [address] Accidental fall 06/24/2022 Encounter 3300 Brenda Reddy MD [address] [id number] from [facility] [place] [id number] Social History Tobacco Use Types Packs/Day Years Used Date Smoking Tobacco: Former Alcohol Use Standard Drinks/Week Comments Yes 0 (1 standard drink = 0.6 oz pure alcoho l) Sex Assigned at Date Recorded Not on file COVID-19 Exposure Response Date Recorded In the last 10 days, have you been in contact with No / Unsu re 06/18/2022 12:56 PM CDT someone who was confirmed or suspected to have Coronavirus/COVID-19? documented as of this encounter Last Filed Vital Signs Vital Sign Reading [...] Mass Index 21.77 06/18/2022 4:17 PM CDT documented in this encounter Discharge Summaries Melo Foley PA-C - 06/24/2022 3:48 PM CDT HOSPITAL DISCHARGE SUMMARY Patient Name: Sara Barillas Date of : 1950 Attending Provider: Eugene Tucker MD Admission Date: 06/18/2022 Discharge Date: 06/24/2022 He will be discharged to home with family support. DISCHARGE DIAGNOSES: Principal Problem: Accidental fall from bed Active Problems: C5 pedicle fracture (HCC) 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, init ([facility]) S/P CABG x 2 COPD (chronic obstructive pulmonary disease) ([facility]) DISCHARGE MEDICATIONS: Medication List START taking these medications Aspercreme (lidocaine) 4 % patch Generic drug: lidocaine 4% Apply 1-3 patches to skin once daily. Keep on for 12 hours and remove for 12 hours. cephalexin 500 mg capsule Commonly known as: KEFLEX Take 1 capsule (500 mg) by mouth four times a day for 14 doses Indications: URINARY TRACT INFECTION. gabapentin 300 mg capsule Commonly known as: NEURONTIN Take 1 capsule (300 mg) by mouth three times a day for 14 days Indications: neuropathic pain. hemorrhoidal 0.25-14-74.9 % Oint Apply 1 Application to skin four times a day as needed. methocarbamoL 500 mg tablet Commonly known as: ROBAXIN Take 0.5-1 tablets (250-500 mg) by mouth every 6 (six) hours as needed (muscle pain). oxyCODONE (immediate release) 5 mg tablet Commonly known as: ROXICODONE Take 0.5-1 tablets (2.5-5 mg) by mouth every 4 (four) hours as needed. polyethylene glycol 17 gram packet Commonly known as: MIRALAX Take 17 g by mouth twice a day. Mix each dose in 4-8 ounces of liquid as directed. Senexon-S 8.6-50 mg tablet Generic drug: senna-docusate Take 2 tablets by mouth twice a day for 14 days. tamsulosin 0.4 mg capsule Commonly known as: FLOMAX Take 1 capsule (0.4 mg) by mouth once daily for 3 doses. Start taking on: June 25, 2022 CHANGE how you take these medications acetaminophen 500 mg tablet Commonly known as: TYLENOL Take 2 tablets (1,000 mg) by mouth three times a day. What changed: ?? when to take this ?? reasons to take this CONTINUE taking these medications Adalimumab 40 mg/0.8 mL injection amiodarone 200 mg tablet Commonly known as: CORDARONE apixaban 5 mg tablet Commonly known as: ELIQUIS aspirin 81 mg enteric coated tablet atorvastatin 80 mg tablet Commonly known as: LIPITOR Carboxymethylcellulose Sodium 0.25 % Drop cholecalciferol (vitamin D3) 25 mcg (1000 unit) 25 mcg (1,000 unit) tablet cyanocobalamin 1,000 mcg tablet fluticasone propionate 50 mcg/actuation nasal spray Commonly known as: FLONASE folic acid 1 mg tablet Commonly known as: FOLVITE isosorbide mononitrate 60 mg extended release tablet 24 HR Commonly known as: IMDUR loratadine 10 mg tablet Commonly known as: CLARITIN metoprolol tartrate 50 mg tablet Commonly known as: LOPRESSOR pantoprazole 40 mg delayed release tablet Commonly known as: PROTONIX predniSONE 10 mg tablet Commonly known as: DELTASONE sulfaSALAzine 500 mg tablet Commonly known as: AZULFIDINE Where to Get Your Medications These medications were sent to [address] [address] Hours: Mon-Fri: 7:30AM-6PM / Sat: 9AM-3PM / Sun: 9AM-3PM ?? Aspercreme (lidocaine) 4 % patch ?? cephalexin 500 mg capsule ?? gabapentin 300 mg capsule ?? hemorrhoidal 0.25-14-74.9 % Oint ?? methocarbamoL 500 mg tablet ?? oxyCODONE (immediate release) 5 mg tablet ?? Senexon-S 8.6-50 mg tablet Information about where to get these medications is not yet available Ask your nurse or doctor about these medications ?? acetaminophen 500 mg tablet ?? polyethylene glycol 17 gram packet ?? tamsulosin 0.4 mg capsule FOLLOW UP: Instructions to follow up provider: Cornelio Ng MD Specify time frame for follow up?: 4 Weeks Instructions to follow-up provider: follow up central cord syndrome and C5 fx Call [phone] to schedule follow up appointment with [facility] in 4 weeks and arrange to have a upright cervical xray before arriving to your appointment. No lifting over 10 pounds. No driving. No bending/twisting or overhead lifting. Continue to wear your neck brace (snug) at alltimes. Please change pads/liners daily. Md Srinivasan Specify time frame for follow up?: 2 Weeks Instructions to follow-up provider: post hospitalization follow up Please follow up with your primary care physician regarding your recent hospitalization and ongoingmedical management. PENDING TEST RESULTS: N/A HOSPITAL COURSE: This 72 y.o. male with a past medical history for CHF, coronary artery disease with prior STEMI status post CABG x2, hypertension, alcohol abuse who was admitted after falling out of bed and sustaininga closed head injury, C5 laminar fracture with central cord syndrome and bilateral upper extremity weakness and pain. Neurosurgery was consulted with plans for nonoperative management with potential cervical decompression in the future on an elective basis, he will be in an [place] for 3 months at least, his uprights were stable. His Eliquis was restarted. He will follow-up with neurosurgery as above. Patient worked with physical and occupational therapies, initially he needed 24/7 cares and was recommended for a TCU. The patient initially declined TCU, and family was arranging for 24/7 cares howeverultimately, they stated that they would not be able to provide this. The patient progressed with physical and occupational therapies and was deemed safe to return home with family support. He was up amb ulating independently with standby assist using his wheeled walker. His bilateral upper extremity weaknesses much improved, he did need some help with some fine motor skills. The patient is family wanted to pursue private pay TCU and or home cares however this was not an option due to lack of skilled need and availability respectively. The family elected to take the patient home. At the time of discharge he was tolerating p.o. had good pain control. Please see below for detailed diagnosis and plan. Accidental fall from bed - Mechanical in etiology. ??No further work-up indicated. - Tertiary exam completed, no additional injuries noted - Monitor for post concussive symptoms - Therapies ?? Closed Head Injury CT head negative for intracranial bleed. - Suspect falls are secondary to alcohol abuse, though monitored??on telemetry for 24h d/t??significant cardiac history- No events. - Monitor for post-concussive syndrome. - Symptomatic control. ?? 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 ETOH abuse Patient endorses daily drinking, 1-3 beers, 2 shots of whiskey. He declines [facility] consult. - CIWA d/do - Vitamins.? Acute Pain due to Trauma Multimodal pain regimen: Acetaminophen, Robaxin, Lidoderm patches, Oxycodone - Gabapentin at 300 mg TID last increased 06/20. ?? AUR - Urban placed 06/19, removed 06/21 and failed voiding trial. - urban replaced 06/22, will leave in for 1 week and have home worker remove if at home - follow up with Urology. Cervical neck fractures likely contributing to AUR - reports of hematuria likely due to internal hemorrhoids/traumatic placement. UA pos for leuk est, UC with staph. 5 day course of Keflex. - Orders for urology follow-up and nursing to come and remove Urban at the end of the week Internal Hemorrhoids - bleeding with straining, patient educated to stop straining on the toilet for more than 5 minutes - Hgbs stable - good bowel regimen with miralax, senna, mom. Added fiber with extra water. Will avoid interventions rectally. - order daily sitz baths with warm water - hemorrhoidal cream - Follow-up with PCP PROCEDURES: N/A COMPLICATIONS IN HOSPITAL: As above DISCHARGE EXAM: See same day progress note IMAGING: MRI SPINE CERVICAL W/O CON Final Result IMPRESSION: 1. MR confirmation of segmental intramedullary T2 prolongation from C3-4 to C6, which could reflect cord edema from high-grade degenerative central canal stenosis or posttraumatic cord contusion. No hemorrhagic component is identified. 2. C5 fracture is better visualized on the prior CT exam. 3. Mild prevertebral edema from lower C2 to the cervicothoracic junction. Additional dorsal interspinous ligamentous sprain at the mid cervical spine. 4. Grade 1 anterolisthesis at C2-C3 as well as retrolisthesis from C3-4 to C4-5. 5. Multilevel cervical spondylosis resulting in severe C4-5 and C5-C6 central canal stenosis. Effacement of intrathecal CSF with active cord compression and ventral cord flattening at both interspace levels. Additional moderate C6-7 and mild to moderate C3-4 central canal stenosis, without cord compression at those two levels. 6. Severe osseous neural foraminal stenosis at C4-5 bilaterally, right C5-6 and bilaterally C6-7. Lesser neural foraminal stenosis elsewhere as described. REPORT SIGNED BY Blane Mendoza M.D. XR SPINE CERVICAL 2 OR 3 VIEW Final Result IMPRESSION: Three view cervical spine series. C5 fractures are not well delineated radiographically. Stable grade 1 anterolisthesis at C2-3 and retrolisthesis from C3-4 to C5-6. Ankylosing across the C3-4 interspace, unchanged. Levoconvex upper thoracic scoliosis, stable. There is no abnormal prevertebral edema. Multilevel cervical spondylosis, unchanged. REPORT SIGNED BY Blane Mendoza M.D. XR WRIST 3 VW BILAT Final Result IMPRESSION: 1. Extensive bilateral degenerative changes. 2. Irregularity of the midshaft of the left first metacarpal bone which is felt to most likely represent remote fracture, however it should lateral view is not obtained and would recommend correlation for pain over this area. REPORT SIGNED BY DR. JOSE LUIS JORDANAY ELBOW RIGHT Final Result IMPRESSION: 1. Advanced degenerative changes of the elbow. No fracture or dislocation. 2. No effusion. 3. Vascular calcifications. REPORT SIGNED BY DR. Carlos Rojas XR HAND 3 VW BILAT Final Result IMPRESSION: 1. Extensive bilateral degenerative changes. 2. Irregularity of the midshaft of the left first metacarpal bone which is felt to most likely represent remote fracture, however it should lateral view is not obtained and would recommend correlation for pain over this area. REPORT SIGNED BY DR. JOSE LUIS JORDANAY CHEST PA Final Result IMPRESSION: 1. Right lung nodules better visualized on recent CT of the neck. Nonemergent CT of the chest again identified. 2. No pneumothorax or effusion. REPORT SIGNED BY DR. Carlos Rojas CT ANGIO NECK Final Result Impression: 1. C5 fracture involving predominantly the spinous process with minimal involvement of the right lamina unchanged in alignment compared to the outside cervical spine CT. 2. No evidence of traumatic injury to the carotid or vertebral arteries. 3. Atherosclerotic disease resulting in 56% stenosis of the proximal right internal carotid artery as well as mild stenosis along the V2 segment of the left vertebral artery. 4. Multiple rounded subpleural nodules in the visualized right upper lobe of the lung measuring up to 6 mm in size. These are indeterminate. Dedicated CT of the chest is suggested for further assessment. INCIDENTAL FINDING: This report includes a nonurgent finding for which imaging, clinical, or laboratory study follow-up is recommended. Report signed by Rito Alas CT OUTSIDE SPINE STUDY Final Result CT OUTSIDE HEAD STUDY Final Result CT OUTSIDE HEAD STUDY Final Result LABS: Recent Labs 06/23/22 0537 06/24/22 0713 HEMOGLOBIN 11.0* 11.6* Recent Labs 06/24/22 0713 CREATININE 1.18* ESTGFRMDRD >60.00 Time: over 30 minutes Melo Foley PA-C documented in this encounter Discharge Instructions Discharge Instr - Other OrdersGretJACI Spence - 06/24/2022 3:01 PM CDT [facility] ([facility]; [facility]; . documented in this encounter Medications at Time of Discharge Medication Sig Dispensed Refills Start Date End Date acetaminophen (TYLENOL) 500 Take 2 tablets 0 03/2022 mg oral tablet (1,000 mg) by mouth three times a day. Adalimumab 40 mg/0.8 mL SubQ Inject 40 mg 0 injection under the skin every 14 (fourteen) days. amiodarone (CORDARONE) 200 Take 200 mg by 0 mg oral tablet mouth once daily. apixaban (ELIQUIS) 5 mg oral Take 5 mg by 0 tablet mouth twice a day. aspirin 81 mg oral enteric Take 81 mg by 0 coated tablet mouth once daily. atorvastatin (LIPITOR) 80 mg Take 80 mg by 0 oral tablet mouth once daily. Carboxymethylcellulose Instill 1 drop 0 Sodium 0.25 % Opht Drop into EACH eye every 6 (six) hours as needed. cholecalciferol, vitamin D3, Take 25 mcg by 0 25 mcg, 1000 unit, 25 mcg mouth once daily. (1,000 unit) oral tablet cyanocobalamin 1,000 mcg Take 1,000 mcg by 0 oral tablet mouth once daily. fluticasone (FLONASE) 50 Instill 1 spray 0 mcg/actuation nasal spray into EACH nare ONCE DAILY. folic acid (FOLVITE) 1 mg Take 1 mg by 0 oral tablet mouth once daily. hemorrhoidal 0.25-14-74.9 % Apply 1 57 g 0 08/08/20 22 Rectal Oint Application to skin four times a day as needed. isosorbide mononitrate Take 30 mg by 0 (IMDUR) 60 mg oral extended mouth once daily. release tablet 24 HR lidocaine 4% (SALONPAS) 4 % Apply 1-3 patches 15 patch 0 0 06/22/2022 Top patch to skin once daily. Keep on for 12 hours and remove for 12 hours. loratadine (CLARITIN) 10 mg Take 10 mg by 0 oral tablet mouth once daily. methocarbamoL (ROBAXIN) 500 Take 0.5-1 20 tablet 0 06/21/20 22 mg oral tablet tablets (250-500 mg) by mouth every 6 (six) hours as needed (muscle pain). metoprolol tartrate Take 50 mg by 0 (LOPRESSOR) 50 mg oral mouth twice a tablet day. oxyCODONE, immediate Take 0.5-1 15 tablet 0 06/21/2022 release, (ROXICODONE) 5 mg tablets (2.5-5 oral tablet mg) by mouth every 4 (four) hours as needed. pantoprazole (PROTONIX) 40 Take 40 mg by 0 mg oral delayed release mouth once daily. tablet polyethylene glycol Take 17 g by 0 06/24/2022 (MIRALAX) 17 gram oral mouth twice a packet day. Mix each dose in 4-8 ounces of liquid as directed. predniSONE (DELTASONE) 10 mg Take 10 mg by 0 oral tablet mouth once daily. sulfaSALAzine (AZULFIDINE) Take 1,000 mg by 0 500 mg oral tablet mouth twice a day. cephalexin (KEFLEX) 500 mg Take 1 capsule 14 capsule 0 06/2406/28/2022 oral capsuleIndications: (500 mg) by mouth URINARY TRACT INFECTION four times a day for 14 doses Indications: URINARY TRACT INFECTION. gabapentin (NEURONTIN) 300 Take 1 capsule 42 capsule 0 06/2107/05/2022 mg oral capsuleIndications: (300 mg) by mouth neuropathic pain three times a day for 14 days Indications: neuropathic pain. senna-docusate (SENNA-S) Take 2 tablets by 56 tablet 0 08/0 06/202207/08/2022 8.6-50 mg oral tablet mouth twice a day for 14 days. tamsulosin (FLOMAX) 0.4 mg Take 1 capsule 0 06/2506/28/2022 oral capsule (0.4 mg) by mouth once daily for 3 doses. documented as of this encounter Progress Notes Rebeka Moe RN - 06/24/2022 4:45 PM CDT Sara Barillas [id number] P: Discharge A: Discharged via wheelchair to home with Home Health Care at 1645 escorted by nurse and daughter I: Discharge information and arrangements included: review of written discharge instructions, prescriptions sent with patient, belongings list completed. R:Patient, daughter expressed understanding of information. Daughter stated that [facility] cannot take care of Pt at home. ANN Romero - 06/24/2022 4:45 PM CDT EDISON received call from Trauma MD stating that patient was having challenges with his aspen collar andthat the home care agency was unable to assist. SW spoke to [employer] (Ryan [phone]) who stated that they do service the [place] area but do not have anyone working today that could go to patient's house. EDISON called [facility] (ph. [phone]) and spoke directly with patient's nurse Lalo who explained that she had spoke with the patient and clarified to him that they cannot provide daily services tochange the padding on the collar, but he is set to have an appointment with [facility] Sunday 07/01. EDISON spoke to patient (ph [phone]) and confirmed that there is an appointment arranged for tomorrow, and that his support people of children and neighbors are out of town for the weekend. Patient expressed frustration with the situation and discomfort with the fit of the aspen collar. Patient expressed understanding that the home care will be there tomorrow or he is able to contact the [place] police non-emergency line to request a knife setter assembler visit or even calling 911 for immediate assistance if the collar becomes unmanageable. Barbra Rose TELEPHOTO ENGINEER, MEAT DRESSER [employer] EDISON, covering weekend 6NW Pager: [phone] 06/30/2022 11:52 AM Missael Lorenzana - 06/24/2022 10:09 AM CDT Physical Therapy Attempted to see 1004 but pt refused after max encouragement d/t just finished bleeding from hemorrhoids and need some time. Will re-attempt as schedule allows. Melo Foley PA-C - 06/24/2022 9:07 AM CDT TRAUMA DAILY PROGRESS NOTE LOS: 6 days Patient seen on 06/24/2022 at 9:00AM CC/HPI: Accidental fall from bed INTERVAL HISTORY: No acute events overnight. Patient seen in the bathroom, he is concerned about hemorrhoid bleeding, he has been on the toilet for at least 5-10 minutes straining, no BMs. Last time hehad a BM it was small hard 3-4 days ago. Blood tinged urine, likely from traumatic urban placement. The patient is concerned about returning home and bleeding to . REVIEW OF SYSTEMS: A comprehensive review of systems was negative except for items noted in the interval history. PAST MEDICAL HISTORY: No Change AUDIT ASSOCIATE MEDICATIONS: Essential AUDIT ASSOCIATE meds restarted CURRENT MEDS: Current Facility-Administered Medications: saline FLUSH syringe 10 mL, 10 mL, Intravenous, Q8H saline FLUSH syringe 10 mL, 10 mL, Intravenous, PRN acetaminophen (TYLENOL) tablet 1,000 mg, 1,000 mg, oral, TID OR acetaminophen (TYLENOL) rectal suppository 650 mg, 650 mg, Rectal, TID amiodarone (CORDARONE) tablet 200 mg, 200 mg, oral, DAILY apixaban (ELIQUIS) tablet 5 mg, 5 mg, oral, Twice Daily aspirin enteric coated tablet 81 mg, 81 mg, oral, DAILY atorvastatin (LIPITOR) tablet 80 mg, 80 mg, oral, DAILY bisacodyl (DULCOLAX) suppository 1 suppository, 1 suppository, Rectal, DAILY PRN cephalexin (KEFLEX) capsule 500 mg, 500 mg, oral, QID cholecalciferol (vitamin D3) 25 mcg (1000 unit) tablet 25 mcg, 25 mcg, oral, DAILY cyanocobalamin tablet 1,000 mcg, 1,000 mcg, oral, DAILY fluticasone propionate (FLONASE) nasal spray 1 spray, 1 spray, Each Nostril, DAILY folic acid (FOLVITE) tablet 1 mg, 1 mg, oral, DAILY gabapentin (NEURONTIN) capsule 300 mg, 300 mg, oral, TID hemorrhoidal ointment, , topical, QID PRN isosorbide mononitrate (IMDUR) extended release tablet 24 HR 30 mg, 30 mg, oral, DAILY lidocaine (LMX-4) topical cream 1 Application, 1 Application, topical, PRN lidocaine / sod bicarb (buffered lidocaine) syringe for IV starts 0.1-0.3 mL, 0.1-0.3 mL, Intradermal, PRN lidocaine 1% (PF) (XYLOCAINE) injection 0.1-0.3 mL, 0.1-0.3 mL, Intradermal, PRN lidocaine 2% (XYLOCAINE) URO-JET gel 10 mL, 10 mL, Urethral, PRN lidocaine 4% (Salonpas) adhesive patch, medicated 1-3 patch, 1-3 patch, Transdermal, DAILY loratadine (CLARITIN) tablet 10 mg, 10 mg, oral, DAILY lubricant drops ophthalmic (EYE) solution 1-2 drop, 1-2 drop, Each Eye, TID PRN magnesium hydroxide (MILK OF MAGNESIA) suspension 30 mL, 30 mL, oral, DAILY PRN methocarbamoL (ROBAXIN) tablet 250-500 mg, 250-500 mg, oral, Q6H PRN metoprolol tartrate (LOPRESSOR) tablet 50 mg, 50 mg, oral, Twice Daily multivitamin (CERTAVITE) tablet 1 tablet, 1 tablet, oral, DAILY ondansetron (ZOFRAN) disintegrating tablet 4 mg, 4 mg, oral, Q8H PRN OR ondansetron (ZOFRAN) injection 4 mg, 4 mg, Intravenous, Q8H PRN oxyCODONE (immediate release) (ROXICODONE) tablet 2.5-5 mg, 2.5-5 mg, oral, Q4H PRN pantoprazole (PROTONIX) delayed release tablet 40 mg, 40 mg, oral, DAILY polyethylene glycol (MIRALAX) packet 17 g, 17 g, oral, Twice Daily predniSONE (DELTASONE) tablet 10 mg, 10 mg, oral, DAILY prochlorperazine (COMPAZINE) injection 5 mg, 5 mg, Intravenous, Q6H PRN senna-docusate (SENNA-S) tablet 2 tablet, 2 tablet, oral, Twice Daily sulfaSALAzine (AZULFIDINE) tablet 1,000 mg, 1,000 mg, oral, Twice Daily tamsulosin (FLOMAX) capsule 0.4 mg, 0.4 mg, oral, DAILY EXAM: Temp (24hrs), Av ??F (36.7 ??C), Min:97.2 ??F (36.2 ??C), Max:98.9 ??F (37.2 ??C) BP 126/82 Pulse 82 Temp 97.4 ??F (36.3 ??C) Resp 16 Ht 5' 2 (1.575 m) Wt 54 kg (119 lb) SpO2 96% BMI 21.77 kg/m?? No data found. 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 Integumentary: warm, dry. Psych: Normal affect. Wound Simple Face;Forehead (Active) First Observed/Origin Date/First Observed/Origin Time: 06/18/22 1302 Location: Face;Forehead Wound Observance : Prior to Admission Wound Simple Rectum (Active) First Observed/Origin Date: 06/19/22 Location: Rectum Intake/Output Summary (Last 24 hours) at 06/24/2022 1049 Last data filed at 06/24/2022 0433 Gross per 24 hour Intake 1400 ml Output 1225 ml Net 175 ml RECENT LABS: Recent Labs 06/23/22 0537 06/24/22 0713 HEMOGLOBIN 11.0* 11.6* Recent Labs 06/24/22 0713 CREATININE 1.18* ESTGFRMDRD >60.00 IMAGING: No Images in Past 24 hours. ADDITIONAL COMMENTS: I reviewed the patient's new clinical labs and imaging test results as includedin this note. I discussed the patient's care with bedside RN, Pharmacy, Social Work, 6W charge nurse. I have seen this patient and discussed my findings and exam with Dr. Tucker. The assessment and plan is based on our joint decision making. ASSESSMENT/PLAN: Sara Barillas is a chronically ill 72 year-old male with past medical history of congestive heart failure, CAD with prior STEMI status post CABG x2, hypertension and alcohol abuse who presented??[facility] ED following fall out of bed. Initially seen at [place] where imaging revealed a C5 lamina fx. Active Hospital Problems Accidental fall from bed - Mechanical in etiology. ??No further work-up indicated. - Tertiary exam completed, no additional injuries noted - Monitor for post concussive symptoms - Therapies ?? Closed Head Injury CT head negative for intracranial bleed. - Suspect falls are secondary to alcohol abuse, though monitored??on telemetry for 24h d/t??significant cardiac history- No events. - Monitor for post-concussive syndrome. - Symptomatic control. ?? 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 ETOH abuse Patient endorses daily drinking, 1-3 beers, 2 shots of whiskey. He declines [facility] consult. - CIWA d/do - Vitamins.? Acute Pain due to Trauma Multimodal pain regimen: Acetaminophen, Robaxin, Lidoderm patches, Oxycodone - Gabapentin at 300 mg TID last increased 06/20. ?? AUR - Urban placed 06/19, removed 06/21 and failed voiding trial. - urban replaced 06/22, will leave in for 1 week and have home worker remove if at home - follow up with Urology. Cervical neck fractures likely contributing to AUR - reports of hematuria likely due to internal hemorrhoids/traumatic placement. UA pos for leuk est, UC with staph. 5 day course of Keflex. Internal Hemorrhoids - bleeding with straining, patient educated to stop straining on the toilet for more than 5 minutes - Hgbs stable - good bowel regimen with miralax, senna, mom. Added fiber with extra water. Will avoid interventions rectally. - order daily sitz baths with warm water - hemorrhoidal cream Past Medical History: GERD - continue AUDIT ASSOCIATE??PPI Osteoporosis - continue AUDIT ASSOCIATE??Vitamins Afib - restart AUDIT ASSOCIATE eliquis STEMI with CABG x2 - denies chest pain, continue BB, Statin, Amiodarone, Eliquis, aspirin Acute Pain Management: APAP, Muscle Relaxant, Lidoderm Patch, Gabapentin, PO Narcotic Lines: PIV Fluids/Electrolytes/Nutrition: reg diet Ulcer Prophylaxis: None indicated Bowel Medications: as above LBM Size: Smear (06/23/2022 9:32 AM) Urban: for AUR DVT Prophylaxis: Mechanical, Mobilize, eliquis Restraints: Not indicated Wounds/Skin Care/Carolyn/Sutures: OOB and mobilize. Frequent turning and reposition in bed. RN skin assessments. Antibiotics: Keflex day 12/22 Family Communication: called Lila daughter with updates. Disposition: Criteria for Discharge: He has fallen out of criteria for half-way. Home cares ordered. Family wanting to private pay for TCU however they are not accepting him despite this per CM due to lack of skilled needs. He does not require 24/ home cares, he is up ambulating independently with a walkerand does require help of 1 person for aspen cares. Despite sharing this with family, they are declining to take him home. CM following up with family. Patient is medically stable for discharge home with family support. Post Hospital Plan: D/C home with family support. 30 minutes total time spent with customer, more than 50% of time spent counseling and/or coordination of care. Melo Foley PA-C Trauma Megan Moreno RN - 06/24/2022 4:36 AM CDT Med-Surg Care Progression Note Type: Shift to shift summary Length of stay: 6 days Code Status: Full Code Primary Problem: Fall out of bed, +etoh. C5 pedicle fx, central cord syndrome Summary: No current plans for surgical interventions, possible cervical decompression once fx healed(in >3mo) F- Feeding & Fluids: Tolerating heart healthy, 2gm sodium diet. Takes pills whole 2 at a time. Needs assistance placing pills into mouth d/t bilat hand paresthesias. Denies N/V. SL'd. A- Analgesic & Anticoagulation: Comfort Goal: Numeric, Verbal, Faces: 3 Analgesic Hypersensitivity to bilateral hands/wrists improved. Scheduled Tylenol and Gabapentin, along w/PRN Robaxin and Oxycodone. Anticoagulation/DVT prevention & plan SCDs and Anticoagulant plan Eliqius & ASA S- Skin: Total Luther Score: 21: Maintaining skin integrity/pressure prevention Pt turns self. - Abrasion to forehead: Crusted, DILAN. - Prolapse/large hemorrhoid to anus: Moderate bleeding -providers aware. - ASPEN 24/, mepilex. Pads changed this shift.?? T- Telemetry: No tele E- Emotional & Neuro: Participating in cares and joking affect. Neuro Alert and Oriented x4. Hypersensitivity to BUE improving, N/T to feet - unchanged. R- Respiratory: On room air H- Head OUT of Bed & Activity: Activate Fall Alert? (Enter 1 or 0): 1 Ambulating SBA w/walker. ASPEN 24/7 x 3mo. U- Urologic/bowel: Size: Smear (06/23/2022 9:32 AM) Failed voiding trial for the second time, urban in place, on flomax. Hematuria and small clots present -providers aware. No BM, moderate bleeding from hemorrhoid. Boewl meds given along w/Milk of mag,+ flatus. G- Glycemic Control: Not applicable T- Treatment: Pain control, BM, monitor urban output, monitor rectal bleeding, therapies. I- Invasive Devices: PIV x1, urban. D- Discharge: Family prefers TCU in [place]. Family is waiting on TCU answers before making decisions. Ivett Grady RN - 06/23/2022 6:59 PM CDT Med-Surg Care Progression Note Type: Shift to shift summary Length of stay: 5 days Code Status: Full Code Primary Problem: Fall out of bed, +etoh. C5 pedicle fx, central cord syndrome Summary: No current plans for surgical interventions, possible cervical decompression once fx healed(in >3mo) F- Feeding & Fluids: Tolerating heart healthy, 2gm sodium diet. Takes pills whole 2 at a time. Needs assistance placing pills into mouth d/t bilat hand paresthesias. Denies N/V. SL'd. A- Analgesic & Anticoagulation: Comfort Goal: Numeric, Verbal, Faces: 3 Analgesic Pain well controlled with scheduled meds. Anticoagulation/DVT prevention & plan SCDs and Anticoagulant plan Eliquis and ASA S- Skin: Total Luther Score: 19: Maintaining skin integrity/pressure prevention. Pt turns self. - Abrasion to forehead: Crusted, SCOOPER. - Prolapse/large hemorrhoid to anus: Moderate bleeding, providers aware. T- Telemetry: Rhythm: Sinus Bradycardia Ectopy: None No tele E- Emotional & Neuro: Participating in cares and participating affect Neuro Alert and Oriented R- Respiratory: On room air H- Head OUT of Bed & Activity: Activate Fall Alert? (Enter 1 or 0): 1 Ambulating SBA with walker, GB Progressive mobility Phases 5-7: Phase 6: 25 feet or more U- Urologic/bowel: Size: Smear (06/23/2022 9:32 AM) Urban in place. Moderate bleeding today in the toilet after straining for BM. Provider aware G- Glycemic Control: Not applicable T- Treatment: BM, monitor urban output and rectal bleeding, therapies I- Invasive Devices: Family hoping for TCU in [place]. D- Discharge: Family prefers TCU in [place]. Family waiting on TCU answers before making decisions Barbra Doshi - 06/23/2022 2:30 PM CDT Spiritual Care Progress Note Reason for Visit: Length of stay Summary: I met with Sara who has been receiving regular Holy Communion, which he appreciates. Sara shared various life and heather narratives exploring purpose, grief, hope and the meaning of it all. We wondered about transformation and I offered words of encouragement and peace. Interventions: Elicited narrative and Pastoral conversation Plan: No follow-up planned, but Spiritual Care remains available upon request Katalina Guzmán, PT - 06/23/2022 2:01 PM CDT Physical Therapy Patient with scheduled PT session this date. Pt greeted in recliner, very pleasant. Reports he isn'tdoing well and has been bleeding from my hemorrhoids today and does not feel comfortable with ambulation at this time. He is motivated to ambulate but would like the bleeding to improve prior to a ton of mobility. Please appreciate nursing staff ambulating with pt atleast 3x/day. PT will cancel today's session, please refer to last treatment note for d/c recommendations. Thank you. Chester Burdick RD - 06/23/2022 1:56 PM CDT Nutrition Assessment Reason for Assessment: LOS Malnutrition : Does not meet malnutrition criteria (two required) This may change per physician's clinical assessment. Loss of Muscle Mass: Not Present Loss of Subcutaneous Fat: Not Present Energy Intake: Adequate Intake Interpretation of Weight Loss: Greater than 7.5% in 3 months (Possible 8.5% wt loss over past 3 months) NUTRITION INTERVENTION, MONITORING, AND EVALUATION Interventions/Recommendations: Meals/Snacks: TID Goal: Meet greater than 75% of estimated needs during hospital admission Evaluation: Likely met Monitor for next visit: PO intakes Nutrition Care Level: Low (will f/u in 5-7 days) CURRENT SITUATION Reason for admission: Accidental fall from bed Lamina fracture at C5 H/o: EtOH, A fib, CKD, HTN, GERD, [place], RA, CAD Interval events: 06/23/22: Constipated; hemorrhoid bleed Discussed continuing to aim for higher fiber foods, adequate hydration, and activity. Patient Medical History: No past medical history on file. FOOD/NUTRITION-RELATED ASSESSMENT Nutrition History: Usual diet AUDIT ASSOCIATE. Good appetite. 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 Lives with spouse, both cook; additional family live close by. Other Pertinent Factors: Daily 4-6 oz EtOH, THC Anthropometric/Physical: Height: 5' 2 (157.5 cm) Admitting Weight: 54 kg (119 lb), Actual Weight: 54 kg (119 lb) IBW: 54 kg +/- 10%, 100% IBW Body mass index is 21.77 kg/m??., BMI Category: Desired BMI: 23 - 27 in persons aged 65 years and older Actual Weight Change: varied weight history Had lost wt down to 113 lb with infected tooth; now pulled and wt increasing. States was weighed at 130 lb a few months ago at the [place]. Clinically significant for malnutrition: No Weight Readings: Wt Readings from Last 10 Encounters: 06/18/22 54 kg (119 lb) Skin: Wound Simple Face;Forehead (Active) Wound Simple Rectum (Active) Digestive System: active bowel sounds; h/o hemorroids Last bowel movement: Size: Smear (06/23/2022 9:32 AM) Bowel Meds: Scheduled Diet Order: Active Orders Diet Diet: Level 7 Regular Level 0: Thin Liquids PO Nutrition Intakes: More than 75% at TID meals Estimated Needs: 4210-8889 kcal/day (25-30 kcal/kg IBW) 65-80 grams protein/day (1.2-1.5 g/kg IBW) 1620 mL/day (30 mL/kg IBW) Labs: Lab Results Component Value Date GLUCOSE 98 06/19/2022 Lab Results Component Value Date SODIUM 140 06/19/2022 POTASSIUM 4.2 06/20/2022 MAGNESIUM 1.6 06/20/2022 CALCIUMSERUM 9.2 06/19/2022 BUNUREANRO 19 06/19/2022 CREATININE 1.23 (H) 06/20/2022 Medications Reviewed: Certavite, folic acid, B12, Vit D Prednisone Current Facility-Administered Medications Medication Dose Route Frequency Provider Last Rate Last Admin ??? saline FLUSH syringe 10 mL 10 mL Intravenous Q8H Judith Guerrero PA-C 10 mL at 06/23/22 0600 ??? saline FLUSH syringe 10 mL 10 mL Intravenous PRN Judith Guerrero PA-C ??? acetaminophen (TYLENOL) tablet 1,000 mg 1,000 mg oral TID Judith Guerrero PA-C 1,000 mg at 06/23/22 0829 Or ??? acetaminophen (TYLENOL) rectal suppository 650 mg 650 mg Rectal TID Judith Guerrero PA-C ??? amiodarone (CORDARONE) tablet 200 mg 200 mg oral DAILY Judith Guerrero PA-C 200 mg at 06/23/22 0830 ??? apixaban (ELIQUIS) tablet 5 mg 5 mg oral Twice Daily Kaela Bhatti APRN, ADAM 5 mg at 06/23/22 0830 ??? aspirin enteric coated tablet 81 mg 81 mg oral DAILY Kaela Bhatti APRN, MANAGER [employer] 81 mg at 06/23/22 0830 ??? atorvastatin (LIPITOR) tablet 80 mg 80 mg oral DAILY Judith Guerrero PA-C 80 mg at 06/23/22 0830 ??? bisacodyl (DULCOLAX) suppository 1 suppository 1 suppository Rectal DAILY PRN Kaela Bhatti APRN, [employer]GER [employer] 1 suppository at 06/20/22 1432 ??? cephalexin (KEFLEX) capsule 500 mg 500 mg oral QID Melo Foley PA-C 500 mg at 06/23/22 1125 ??? cholecalciferol (vitamin D3) 25 mcg (1000 unit) tablet 25 mcg 25 mcg oral DAILY Judith Guerrero PA-C 25 mcg at 06/23/22 0830 ??? cyanocobalamin tablet 1,000 mcg 1,000 mcg oral DAILY Judith Guerrero PA-C 1,000 mcg at 06/23/22 0832 ??? fluticasone propionate (FLONASE) nasal spray 1 spray 1 spray Each Nostril DAILY Judith Guerrero PA-C 1 spray at 06/23/22 0800 ??? folic acid (FOLVITE) tablet 1 mg 1 mg oral DAILY Judith Guerrero PA-C 1 mg at 06/23/22 0830 ??? gabapentin (NEURONTIN) capsule 300 mg 300 mg oral TID Kaela Woidylla, SENSOR OPERATOR, [employer] 300 mg at 06/23/22 0830 ??? isosorbide mononitrate (IMDUR) extended release tablet 24 HR 30 mg 30 mg oral DAILY Kaela Woidylla, SENSOR OPERATOR, [employer]GER [employer] 30 mg at 06/23/22 0831 ??? lidocaine (LMX-4) topical cream 1 Application 1 Application topical PRN Judith Guerrero PA-C ??? lidocaine / sod bicarb (buffered lidocaine) syringe for IV starts 0.1-0.3 mL 0.1-0.3 mL Intradermal PRN Judith Guerrero PA-C ??? lidocaine 1% (PF) (XYLOCAINE) injection 0.1-0.3 mL 0.1-0.3 mL Intradermal PRN Judith Guerrero PA-C ??? lidocaine 2% (XYLOCAINE) URO-JET gel 10 mL 10 mL Urethral PRN Megan Moreno RN ??? lidocaine 4% (Salonpas) adhesive patch, medicated 1-3 patch 1-3 patch Transdermal DAILY Judith Munoz PA-C 1 patch at 06/22/22 0755 ??? loratadine (CLARITIN) tablet 10 mg 10 mg oral DAILY Judith Guerrero PA-C 10 mg at 06/22/22 0752 ??? lubricant drops ophthalmic (EYE) solution 1-2 drop 1-2 drop Each Eye TID PRN Judith Guerrero PA-C 1 drop at 06/22/22 0814 ??? magnesium hydroxide (MILK OF MAGNESIA) suspension 30 mL 30 mL oral DAILY PRN NATALIE Gonzalez0 mL at 06/22/22 1144 ??? methocarbamoL (ROBAXIN) tablet 250-500 mg 250-500 mg oral Q6H PRN Judith Guerrero PA-C 500 mg at06/23/22 0352 ??? metoprolol tartrate (LOPRESSOR) tablet 50 mg 50 mg oral Twice Daily Judith Guerrero PA-C 50 mg at 06/23/22 0800 ??? multivitamin (CERTAVITE) tablet 1 tablet 1 tablet oral DAILY Judith Guerrero PA-C 1 tablet at 06/23/22 0830 ??? ondansetron (ZOFRAN) disintegrating tablet 4 mg 4 mg oral Q8H PRN Judith Guerrero PA-C 4 mg at 06/19/22 0219 Or ??? ondansetron (ZOFRAN) injection 4 mg 4 mg Intravenous Q8H PRN Judith Guerrero PA-C 4 mg at 06/19/22 1252 ??? oxyCODONE (immediate release) (ROXICODONE) tablet 2.5-5 mg 2.5-5 mg oral Q4H PRN Judith Guerrero PA-C 5 mg at 06/23/22 0352 ??? pantoprazole (PROTONIX) delayed release tablet 40 mg 40 mg oral DAILY Judith Guerrero PA-C 40 mgat 06/23/22 0831 ??? polyethylene glycol (MIRALAX) packet 17 g 17 g oral Twice Daily Melo Foley PA-C 17 g at 06/23/22 0832 ??? predniSONE (DELTASONE) tablet 10 mg 10 mg oral DAILY Judith Guerrero PA-C 10 mg at 06/23/22 0832 ??? prochlorperazine (COMPAZINE) injection 5 mg 5 mg Intravenous Q6H PRN Judith Guerrero PA-C 5 mg at 06/18/22 1900 ??? senna-docusate (SENNA-S) tablet 2 tablet 2 tablet oral Twice Daily Melo Foley PA-C 2 tablet at 06/23/22 0830 ??? sulfaSALAzine (AZULFIDINE) tablet 1,000 mg 1,000 mg oral Twice Daily Kaela DOMINIQUE Bhatti [employer] 1,000 mg at 06/23/22 0830 ??? [START ON 06/24/2022] tamsulosin (FLOMAX) capsule 0.4 mg 0.4 mg oral DAILY Melo Foley PA-C Nutrition Diagnosis No nutrition diagnosis at this time Sabi Burdick RD LD Pager #: [phone] Melo Foley PA-C - 06/23/2022 8:22 AM CDT TRAUMA DAILY PROGRESS NOTE LOS: 5 days Patient seen on 06/23/2022 at 8:00AM CC/HPI: Accidental fall from bed INTERVAL HISTORY: No acute events overnight. Patient seen laying in bed, HOB up, eating breakfast. He denies concerns. UC growing staph, Keflex started. Patient mentions feeling a little more sore but has been up and walking with RW. He spilled some drinks yesterday trying to hold a cup. He is agreeable to TCU if his family is not able to support him. REVIEW OF SYSTEMS: A comprehensive review of systems was negative except for items noted in the interval history. PAST MEDICAL HISTORY: No Change AUDIT ASSOCIATE MEDICATIONS: Essential AUDIT ASSOCIATE meds restarted CURRENT MEDS: Current Facility-Administered Medications: saline FLUSH syringe 10 mL, 10 mL, Intravenous, Q8H saline FLUSH syringe 10 mL, 10 mL, Intravenous, PRN acetaminophen (TYLENOL) tablet 1,000 mg, 1,000 mg, oral, TID OR acetaminophen (TYLENOL) rectal suppository 650 mg, 650 mg, Rectal, TID amiodarone (CORDARONE) tablet 200 mg, 200 mg, oral, DAILY apixaban (ELIQUIS) tablet 5 mg, 5 mg, oral, Twice Daily aspirin enteric coated tablet 81 mg, 81 mg, oral, DAILY atorvastatin (LIPITOR) tablet 80 mg, 80 mg, oral, DAILY bisacodyl (DULCOLAX) suppository 1 suppository, 1 suppository, Rectal, DAILY PRN cephalexin (KEFLEX) capsule 500 mg, 500 mg, oral, QID cholecalciferol (vitamin D3) 25 mcg (1000 unit) tablet 25 mcg, 25 mcg, oral, DAILY cyanocobalamin tablet 1,000 mcg, 1,000 mcg, oral, DAILY fluticasone propionate (FLONASE) nasal spray 1 spray, 1 spray, Each Nostril, DAILY folic acid (FOLVITE) tablet 1 mg, 1 mg, oral, DAILY gabapentin (NEURONTIN) capsule 300 mg, 300 mg, oral, TID isosorbide mononitrate (IMDUR) extended release tablet 24 HR 30 mg, 30 mg, oral, DAILY lidocaine (LMX-4) topical cream 1 Application, 1 Application, topical, PRN lidocaine / sod bicarb (buffered lidocaine) syringe for IV starts 0.1-0.3 mL, 0.1-0.3 mL, Intradermal, PRN lidocaine 1% (PF) (XYLOCAINE) injection 0.1-0.3 mL, 0.1-0.3 mL, Intradermal, PRN lidocaine 2% (XYLOCAINE) URO-JET gel 10 mL, 10 mL, Urethral, PRN lidocaine 4% (Salonpas) adhesive patch, medicated 1-3 patch, 1-3 patch, Transdermal, DAILY loratadine (CLARITIN) tablet 10 mg, 10 mg, oral, DAILY lubricant drops ophthalmic (EYE) solution 1-2 drop, 1-2 drop, Each Eye, TID PRN magnesium hydroxide (MILK OF MAGNESIA) suspension 30 mL, 30 mL, oral, DAILY PRN methocarbamoL (ROBAXIN) tablet 250-500 mg, 250-500 mg, oral, Q6H PRN metoprolol tartrate (LOPRESSOR) tablet 50 mg, 50 mg, oral, Twice Daily multivitamin (CERTAVITE) tablet 1 tablet, 1 tablet, oral, DAILY ondansetron (ZOFRAN) disintegrating tablet 4 mg, 4 mg, oral, Q8H PRN OR ondansetron (ZOFRAN) injection 4 mg, 4 mg, Intravenous, Q8H PRN oxyCODONE (immediate release) (ROXICODONE) tablet 2.5-5 mg, 2.5-5 mg, oral, Q4H PRN pantoprazole (PROTONIX) delayed release tablet 40 mg, 40 mg, oral, DAILY polyethylene glycol (MIRALAX) packet 17 g, 17 g, oral, Twice Daily predniSONE (DELTASONE) tablet 10 mg, 10 mg, oral, DAILY prochlorperazine (COMPAZINE) injection 5 mg, 5 mg, Intravenous, Q6H PRN senna-docusate (SENNA-S) tablet 2 tablet, 2 tablet, oral, Twice Daily sulfaSALAzine (AZULFIDINE) tablet 1,000 mg, 1,000 mg, oral, Twice Daily tamsulosin (FLOMAX) capsule 0.4 mg, 0.4 mg, oral, DAILY EXAM: Temp (24hrs), Av.2 ??F (36.8 ??C), Min:97.7 ??F (36.5 ??C), Max:98.6 ??F (37 ??C) BP 118/77 Pulse 60 Temp 98.3 ??F (36.8 ??C) Resp 16 Ht 5' 2 (1.575 m) Wt 54 kg (119 lb) SpO2 93% BMI 21.77 kg/m?? No data found. 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 Integumentary: warm, dry. Psych: Normal affect. Wound Simple Face;Forehead (Active) First Observed/Origin Date/First Observed/Origin Time: 06/18/22 1302 Location: Face;Forehead Wound Observance : Prior to Admission Wound Simple Rectum (Active) First Observed/Origin Date: 06/19/22 Location: Rectum Intake/Output Summary (Last 24 hours) at 06/23/2022 0822 Last data filed at 06/23/2022 0600 Gross per 24 hour Intake 830 ml Output 875 ml Net -45 ml RECENT LABS: Recent Labs 06/23/22 0537 HEMOGLOBIN 11.0* No Lab Results Found (last 72 hours) IMAGING: No Images in Past 24 hours. ADDITIONAL COMMENTS: I reviewed the patient's new clinical labs and imaging test results as includedin this note. I discussed the patient's care with bedside RN. I have seen this patient and discussedmy findings and exam with Dr. Llanes. The assessment and plan is based on our joint decision making. ASSESSMENT/PLAN: Sara Barillas is a chronically ill 72 year-old male with past medical history of congestive heart failure, CAD with prior STEMI status post CABG x2, hypertension and alcohol abuse who presented??[facility] ED following fall out of bed. Initially seen at [place] where imaging revealed a C5 lamina fx. Active Hospital Problems Accidental fall from bed - Mechanical in etiology. ??No further work-up indicated. - Tertiary exam completed, no additional injuries noted - Monitor for post concussive symptoms - Therapies ?? Closed Head Injury CT head negative for intracranial bleed. - Suspect falls are secondary to alcohol abuse, though monitored??on telemetry for 24h d/t??significant cardiac history- No events. - Monitor for post-concussive syndrome. - Symptomatic control. ?? 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 Rib Fractures, Chronic ?? Patient endorses prior fall where he knows he broke some ribs denies??any chest wall tenderness currently. -??Rib fracture protocol, pulmonary toilet - Encourage deep breathing, IS and OOB as tolerated. - Therapies and multimodal pain regimen -??Patient maintaining O2 sats greater than 90% on room air.? ETOH abuse Patient endorses daily drinking, 1-3 beers, 2 shots of whiskey. He declines [facility] consult. - CIWA d/do - Vitamins.? Acute Pain due to Trauma Multimodal pain regimen: Acetaminophen, Robaxin, Lidoderm patches, Oxycodone - Gabapentin at 300 mg TID last increased 06/20. ?? AUR - Urban placed 06/19, removed 06/21 and failed voiding trial. - urban replaced 06/22, will leave in for 1 week and have home worker remove if at home - follow up with Urology as needed. Cervical neck fractures likely contributing to AUR - reports of hematuria likely due to internal hemorrhoids. UA pos for leuk est, UC with staph. Will treat with 5 day course of Keflex. Internal Hemorrhoids - bleeding with BMs - recheck HGB in am, otherwise stable - good bowel regimen with miralax, senna, mom Past Medical History: GERD - continue AUDIT ASSOCIATE??PPI Osteoporosis - continue AUDIT ASSOCIATE??Vitamins Afib - restart AUDIT ASSOCIATE eliquis STEMI with CABG x2 - denies chest pain, continue BB, Statin, Amiodarone, Eliquis, aspirin Acute Pain Management: APAP, Muscle Relaxant, Lidoderm Patch, Gabapentin, PO Narcotic Lines: PIV Fluids/Electrolytes/Nutrition: reg diet Ulcer Prophylaxis: None indicated Bowel Medications: Senna-S, Miralax twice daily and Dulcolax Suppository. LBM Size: Small (06/20/2022 11:59 PM) Urban: for AUR DVT Prophylaxis: Mechanical, Mobilize, eliquis Restraints: Not indicated Wounds/Skin Care/[place]/Sutures: OOB and mobilize. Frequent turning and reposition in bed. RN skin assessments. Antibiotics: N/A Family Communication: not present Disposition: Criteria for Discharge: making progress with therapies.Will need family members support to do aspen cares but they have not been answering calls and per prior discussions are hesitant to receive him athome due to amount of cares. Post Hospital Plan: D/C home when has family support vs TCU 30 minutes total time spent with customer, more than 50% of time spent counseling and/or coordination of care. Melo Foley PA-C Trauma Megan Moreno RN - 06/23/2022 4:41 AM CDT Med-Surg Care Progression Note Type: Shift to shift summary [id number] Length of stay: 5 days Code Status: Full Code Primary Problem: Fall out of bed, +etoh. C5 pedicle fx, central cord syndrome Summary: No current plans for surgical interventions, possible cervical decompression once fx healed(in >3mo) F- Feeding & Fluids: Tolerating heart healthy, 2gm sodium diet. Takes pills whole 2 at a time. Needs assistance placing pills into mouth d/t bilat hand paresthesias. Denies N/V. SL'd. A- Analgesic & Anticoagulation: Comfort Goal: Numeric, Verbal, Faces: 3 Analgesic Hypersensitivity to bilateral hands/wrists improved. Scheduled Tylenol and Gabapentin, along w/PRN Robaxin and Oxycodone. Anticoagulation/DVT prevention & plan SCDs and Anticoagulant plan Eliqius & ASA. S- Skin: Total Luther Score: 19: Maintaining skin integrity/pressure prevention Pt turns self. - Abrasion to forehead: Crusted, SCOOPER. - Prolapse/large hemorrhoid to anus: Moderate bleeding, providers aware. - ASPEN /, mepilex. Pads changed this shift. T- Telemetry: No tele. E- Emotional & Neuro: Participating in cares and joking affect. If pt is to safely d/c home, family member needs to come in for aspen education but trauma and pt have not been able to get a hold offamily. Neuro Alert and Oriented x4. Hypersensitivity to BUE improving, N/T to feet - unchanged. R- Respiratory: On room air H- Head OUT of Bed & Activity: Activate Fall Alert? (Enter 1 or 0): 1 Ambulating SBA w/walker. ASPEN / x 3mo. U- Urologic/bowel: Size: Small (06/20/2022 11:59 PM) Failed voiding trial for the second time, urban in place, on flomax. Some hematuria present, providers aware. No BM, moderate bleeding from hemorrhoid. Boewl meds given, + flatus. G- Glycemic Control: Not applicable T- Treatment: Pain control, BM, monitor urban output, monitor rectal bleeding, therapies. I- Invasive Devices: PIV x1, urban. D- Discharge: Home vs TCU pending family being able to come in for aspen eduction in order to safelyd/c home. TCU placement will prove difficult d/t ETOH. Bonita Leija RN - 06/22/2022 6:20 PM CDT Med-Surg Care Progression Note Type: Shift to shift summary Length of stay: 4 days Code Status: Full Code Primary Problem: Fall out of bed, +etoh. C5 pedicle fx, central cord syndrome. F- Feeding & Fluids: Tolerating heart healthy, 2gm sodium diet. Takes large pills whole 2 at a time, small all together. Needs assistance placing pills into mouth d/t bilat hand paresthesias. A- Analgesic & Anticoagulation: Comfort Goal: Numeric, Verbal, Faces: 3 Analgesic Hypersensitivity to bilateral hands/wrists improved. Scheduled Tylenol, declined PRNs. Anticoagulation/DVT prevention & plan SCDs, Eliqius & ASA S- Skin: Total Luther Score: 19: Maintaining skin integrity/pressure prevention Pt turns self. - Abrasion to forehead: Crusted, DILAN. - Prolapse/large hemorrhoid to anus: Moderate bleeding, providers aware, not intervention at this time. - [place] 09/06, mepilex. Likes rag under his chin for cushion. T- Telemetry: No tele. E- Emotional & Neuro: Participating in cares and joking affect. If pt is to safely d/c home, family member needs to come in for aspen education but trauma and pt have not been able to get a hold offamily. Neuro Alert and Oriented x4. Hypersensitivity to BUE improving, N/T to feet - unchanged. R- Respiratory: RA H- Head OUT of Bed & Activity: Activate Fall Alert? (Enter 1 or 0): 1 Ambulating SBA w/ walker. ASPEN 09/06. Therapies to reassess today. U- Urologic/bowel: Size: Small (06/20/2022 11:59 PM) Failed voiding trial for the second time, urban placed overnight, on Flomax. No BM, moderate blood from hemorrhoid. Gave Miralax, senna, and Milk mg. Reported passing gas. G- Glycemic Control: Not applicable. T- Treatment: Pain control, BM, monitor urban output, monitor rectal bleeding, therapies. I- Invasive Devices: PIV x1, urban D- Discharge: Home vs TCU pending family being able to come in for aspen eduction in order to safelyd/c home. Melo Foley PA-C - 06/22/2022 2:01 PM CDT Attempt to call family members multiple times (son Jefry [phone], Lila, and ) without answers. He needs family members to learn aspen cares/teaching prior to return home. Melo Foley PA-C Melo Foley PA-C - 06/22/2022 8:43 AM CDT TRAUMA DAILY PROGRESS NOTE LOS: 4 days Patient seen on 06/22/2022 at 8:30AM CC/HPI: Accidental fall from bed INTERVAL HISTORY: No acute events overnight. Patient seen laying in bed, HOB up, eating breakfast. He denies concerns. He would prefer not to go to a TCU. Family is coming in today. REVIEW OF SYSTEMS: A comprehensive review of systems was negative except for items noted in the interval history. PAST MEDICAL HISTORY: No Change AUDIT ASSOCIATE MEDICATIONS: Essential AUDIT ASSOCIATE meds restarted CURRENT MEDS: Current Facility-Administered Medications: saline FLUSH syringe 10 mL, 10 mL, Intravenous, Q8H saline FLUSH syringe 10 mL, 10 mL, Intravenous, PRN acetaminophen (TYLENOL) tablet 1,000 mg, 1,000 mg, oral, TID OR acetaminophen (TYLENOL) rectal suppository 650 mg, 650 mg, Rectal, TID amiodarone (CORDARONE) tablet 200 mg, 200 mg, oral, DAILY apixaban (ELIQUIS) tablet 5 mg, 5 mg, oral, Twice Daily aspirin enteric coated tablet 81 mg, 81 mg, oral, DAILY atorvastatin (LIPITOR) tablet 80 mg, 80 mg, oral, DAILY bisacodyl (DULCOLAX) suppository 1 suppository, 1 suppository, Rectal, DAILY PRN cholecalciferol (vitamin D3) 25 mcg (1000 unit) tablet 25 mcg, 25 mcg, oral, DAILY cyanocobalamin tablet 1,000 mcg, 1,000 mcg, oral, DAILY fluticasone propionate (FLONASE) nasal spray 1 spray, 1 spray, Each Nostril, DAILY folic acid (FOLVITE) tablet 1 mg, 1 mg, oral, DAILY gabapentin (NEURONTIN) capsule 300 mg, 300 mg, oral, TID isosorbide mononitrate (IMDUR) extended release tablet 24 HR 30 mg, 30 mg, oral, DAILY lidocaine (LMX-4) topical cream 1 Application, 1 Application, topical, PRN lidocaine / sod bicarb (buffered lidocaine) syringe for IV starts 0.1-0.3 mL, 0.1-0.3 mL, Intradermal, PRN lidocaine 1% (PF) (XYLOCAINE) injection 0.1-0.3 mL, 0.1-0.3 mL, Intradermal, PRN lidocaine 2% (XYLOCAINE) URO-JET gel 10 mL, 10 mL, Urethral, PRN lidocaine 4% (Salonpas) adhesive patch, medicated 1-3 patch, 1-3 patch, Transdermal, DAILY loratadine (CLARITIN) tablet 10 mg, 10 mg, oral, DAILY lubricant drops ophthalmic (EYE) solution 1-2 drop, 1-2 drop, Each Eye, TID PRN magnesium hydroxide (MILK OF MAGNESIA) suspension 30 mL, 30 mL, oral, DAILY PRN methocarbamoL (ROBAXIN) tablet 250-500 mg, 250-500 mg, oral, Q6H PRN metoprolol tartrate (LOPRESSOR) tablet 50 mg, 50 mg, oral, Twice Daily multivitamin (CERTAVITE) tablet 1 tablet, 1 tablet, oral, DAILY ondansetron (ZOFRAN) disintegrating tablet 4 mg, 4 mg, oral, Q8H PRN OR ondansetron (ZOFRAN) injection 4 mg, 4 mg, Intravenous, Q8H PRN oxyCODONE (immediate release) (ROXICODONE) tablet 2.5-5 mg, 2.5-5 mg, oral, Q4H PRN pantoprazole (PROTONIX) delayed release tablet 40 mg, 40 mg, oral, DAILY polyethylene glycol (MIRALAX) packet 17 g, 17 g, oral, DAILY predniSONE (DELTASONE) tablet 10 mg, 10 mg, oral, DAILY prochlorperazine (COMPAZINE) injection 5 mg, 5 mg, Intravenous, Q6H PRN senna-docusate (SENNA-S) tablet 1 tablet, 1 tablet, oral, Twice Daily sulfaSALAzine (AZULFIDINE) tablet 1,000 mg, 1,000 mg, oral, Twice Daily tamsulosin (FLOMAX) capsule 0.4 mg, 0.4 mg, oral, DAILY EXAM: Temp (24hrs), Av ??F (36.7 ??C), Min:97.7 ??F (36.5 ??C), Max:98.6 ??F (37 ??C) BP 111/78 Pulse (!) 53 Temp 97.7 ??F (36.5 ??C) Resp 19 Ht 5' 2 (1.575 m) Wt 54 kg (119 lb) SpO2 97% BMI 21.77 kg/m?? No data found. 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 Integumentary: warm, dry. Psych: Normal affect. Wound Simple Face;Forehead (Active) First Observed/Origin Date/First Observed/Origin Time: 06/18/22 1302 Location: Face;Forehead Wound Observance : Prior to Admission Wound Simple Rectum (Active) First Observed/Origin Date: 06/19/22 Location: Rectum Intake/Output Summary (Last 24 hours) at 06/22/2022 1238 Last data filed at 06/22/2022 0846 Gross per 24 hour Intake 1012 ml Output 2336 ml Net -1324 ml RECENT LABS: No Lab Results Found (last 72 hours) Recent Labs 06/20/22 0626 POTASSIUM 4.2 CREATININE 1.23* ESTGFRMDRD >60.00 IMAGING: No Images in Past 24 hours. ADDITIONAL COMMENTS: I reviewed the patient's new clinical labs and imaging test results as includedin this note. I discussed the patient's care with bedside RN. I have seen this patient and discussedmy findings and exam with Dr. Llanes. The assessment and plan is based on our joint decision making. ASSESSMENT/PLAN: Sara Barillas is a chronically ill 72 year-old male with past medical history of congestive heart failure, CAD with prior STEMI status post CABG x2, hypertension and alcohol abuse who presented??[facility] ED following fall out of bed. Initially seen at [place] where imaging revealed a C5 lamina fx. Active Hospital Problems Accidental fall from bed - Mechanical in etiology. ??No further work-up indicated. - Tertiary exam completed, no additional injuries noted - Monitor for post concussive symptoms - Therapies ?? Closed Head Injury CT head negative for intracranial bleed. - Suspect falls are secondary to alcohol abuse, though monitored??on telemetry for 24h d/t??significant cardiac history- No events. - Monitor for post-concussive syndrome. - Symptomatic control. ?? 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 Rib Fractures, Chronic ?? Patient endorses prior fall where he knows he broke some ribs denies??any chest wall tenderness currently. -??Rib fracture protocol, pulmonary toilet - Encourage deep breathing, IS and OOB as tolerated. - Therapies and multimodal pain regimen -??Patient maintaining O2 sats greater than 90% on room air.? ETOH abuse Patient endorses daily drinking, 1-3 beers, 2 shots of whiskey. He declines [facility] consult. - CIWA. - Vitamins.? Acute Pain due to Trauma Multimodal pain regimen: Acetaminophen, Robaxin, Lidoderm patches, Oxycodone - Gabapentin at 300 mg TID last increased 06/20. ?? AUR - Urban placed 06/19, removed 06/21 and failed voiding trial. - urban replaced 06/22, will leave in for 1 week and have home worker remove if at home - follow up with Urology as needed. Cervical neck fractures likely contributing to AUR - reports of hematuria likely due to internal hemorrhoids Internal Hemorrhoids - bleeding with BMs - recheck HGB in am, otherwise stable - good bowel regimen with miralax, senna, mom Past Medical History: GERD - continue AUDIT ASSOCIATE??PPI Osteoporosis - continue AUDIT ASSOCIATE??Vitamins Afib - restart AUDIT ASSOCIATE eliquis STEMI with CABG x2 - denies chest pain, continue BB, Statin, Amiodarone, Eliquis, aspirin Acute Pain Management: APAP, Muscle Relaxant, Lidoderm Patch, Gabapentin, PO Narcotic Lines: PIV Fluids/Electrolytes/Nutrition: reg diet Ulcer Prophylaxis: None indicated Bowel Medications: Senna-S, Miralax twice daily and Dulcolax Suppository. LBM Size: Small (06/20/2022 11:59 PM) Urban: remove today DVT Prophylaxis: Mechanical, Mobilize, eliquis Restraints: Not indicated Wounds/Skin Care/[place]/Sutures: OOB and mobilize. Frequent turning and reposition in bed. RN skin assessments. Antibiotics: N/A Family Communication: attempt to call Lila, daughter no answer. Patient states family is coming today Disposition: Criteria for Discharge: made progress with physical therapy today. Will need family members support to do aspen cares, will need to discuss today. Post Hospital Plan: D/C home when has family support. 30 minutes total time spent with customer, more than 50% of time spent counseling and/or coordination of care. Melo Foley PA-C Trauma Megan Moreno RN - 06/22/2022 6:54 AM CDT Med-Surg Care Progression Note Type: Shift to shift summary [id number] Length of stay: 4 days Code Status: Full Code Primary Problem: Fall out of bed, +etoh. C5 pedicle fx, central cord syndrome Summary: No current plans for surgical interventions, possible cervical decompression once fx healed(in >3mo) Summary: SC x1 @ 0000 for BS of 397, Urban placed at 0620 for BS of 483. F- Feeding & Fluids: Tolerating heart healthy, 2gm sodium diet. Takes pills whole 2 at a time. Needs assistance placing pills into mouth d/t bilat hand paresthesias. Denies N/V. SL'd. A- Analgesic & Anticoagulation: Comfort Goal: Numeric, Verbal, Faces: 3 Analgesic Hypersensitivity to bilateral hands/wrists has improved. Scheduled Tylenol and PRN Oxycodone and Robaxin. Anticoagulation/DVT prevention & plan SCDs and Anticoagulant plan Eliqius & ASA. S- Skin: Total Luther Score: 19: Maintaining skin integrity/pressure prevention Pt turns self. - Abrasion to forehead: Crusted, DILAN. - Prolapse/large hemorrhoid to anus: Moderate bleeding, providers aware. - ASPEN /, mepilex. Pads changed this shift. T- Telemetry: No tele. E- Emotional & Neuro: Participating in cares and joking affect Neuro Alert and Oriented x4. Hypersensitivity to BUE improving, N/T to feet - unchanged. CIWAs 0 -can be d/c'd. R- Respiratory: On room air H- Head OUT of Bed & Activity: Activate Fall Alert? (Enter 1 or 0): 1 Ambulating SBA w/walker. ASPEN 09/06. Therapies to reassess today. U- Urologic/bowel: Size: Small (06/20/2022 11:59 PM) SC x1 at mn, urban placed 0620 for AUR. Flomax started yesterday. No BM, moderate blood from hemorrhoid. G- Glycemic Control: Not applicable. T- Treatment: Pain control, BM, monitor urban output, monitor rectal bleeding, therapies. I- Invasive Devices: PIV x1, urban. D- Discharge: Awaiting d/c plan - progress with therapies over the weekend vs TCU (referrals sent). Will need some family member to come learn [place] pad change and cleaning if does d/c home. Anahi Guido RN - 06/21/2022 5:26 PM CDT Med-Surg Care Progression Note Type: Shift to shift summary Length of stay: 3 days Code Status: Full Code Primary Problem: Fall out of bed, +etoh. C5 pedicle fx, central cord syndrome Summary: No current plans for surgical interventions, possible cervical decompression once fx healed(in >3mo) Summary: No acute event this shift. Pain mod to hands but is relieved with meds. Urinary retention, provider aware- straight cath orders PRN, placed on flomax. After 2 straight orders, place urban. Straight cath x 1 this evening shift, BS 400-output 500. F- Feeding & Fluids: Tolerating heart healthy, 2gm sodium diet. Takes pills whole 2 at a time. Needs assistance placing pills into mouth d/t bilat hand paresthesias. A- Analgesic & Anticoagulation: Comfort Goal: Numeric, Verbal, Faces: 3 Analgesic Hypersensitivity to bilateral hands/wrists causing high levels of pain. Using PRNs. Given scheduled tylenol. Anticoagulation/DVT prevention & plan SCDs, Eliquis, and ASA S- Skin: Total Luther Score: 18: Maintaining skin integrity/pressure prevention. Abrasion to forehead. Possible prolapse/large hemorrhoid to anus. Scant drainage from area. No interventions currently. Mepilex under aspen, aspen pads changed. T- Telemetry: No tele E- Emotional & Neuro: Participating in cares Neuro Alert and Oriented. Hypersensitivity to bilateral wrists and fingers. N/T to feet remains unchanged. CIWAs discontinued today. R- Respiratory: On room air H- Head OUT of Bed & Activity: Activate Fall Alert? (Enter 1 or 0): 1 Ambulating SBA with walker. [place] in place. Therapies following U- Urologic/bowel: Size: Small (06/20/2022 11:59 PM) Urban removed around 1200, DTV [id number]. Voided 50cc, BS 400. Provider informed-flomax started. Straight cath x1 for 500 cc. BMs occasionally bloody d/t rectal prolapse/hemmrhoids. G- Glycemic Control: Not applicable T- Treatment: pain management, therapies, I- Invasive Devices: PIV D- Discharge: Awaiting d/c plan - progress with therapies over the weekend vs TCU (referrals sent). Will need some family member to come learn [place] pad change and cleaning if does d/c home. Edna Barragan PA-C - 06/21/2022 2:55 PM CDT Neurosurgery Progress Note HD #4 Chief complaint: Pain in hands ?? Interval: Patient reports continued BUE pain in wrists/hands w hyperesthesias and improved numbness in bilat feet. Denies any new or worsening n/t/pain or focal weakness in BUE/BLEs. No neck pain. Tolerating aspen collar.??Ambulated halls w therapies. Patient Vitals for the past 6 hrs: BP Temp Pulse Resp SpO2 06/21/22 1143 101/72 98 ??F (36.7 ??C) (!) 58 16 90 % Allergies: Patient has no known allergies. Neurological Physical Exam:? General: WDWN??elderly male lying in bed,??aspen collar in place which appears to fit appropriately,NAD Higher integrative functions: Awake, alert. Follows commands Attention Span and Concentration: Good Language: Clear and fluent Fund of Knowledge: Good CN II-XII: Face symmetrical. Conjugate gaze Motor:??RUE D 4/5, B 4+/5, T 4/5, G 3/5. LUE D 5/5, B 5/5, T 4+/5, G 3/5. BLEs 5/5 throughout Sensation:??Decreased sensation in feet bilaterally. Hyperesthesias in bilateral hands. SILT in remaining extremities Labs: SODIUM Date Value Ref Range Status 06/19/2022 140 136 - 145 mmol/L Final WBC Date Value Ref Range Status 06/19/2022 9.2 4.3 - 10.8 K/uL Final RBC Date Value Ref Range Status 06/19/2022 3.53 (L) 4.60 - 6.20 M/uL Final HEMOGLOBIN Date Value Ref Range Status 06/19/2022 12.4 (L) 14.0 - 18.0 gm/dL Final Impression/Plan:??72 y.o. male??with pmhx significant for alcohol abuse, CHF, CKD and HTN who presented to OSH for evaluation after a fall??out of bed w c/o bilat hand/forearm burning pain and bilat hand/feet numbness. C CT w mildly displaced fracture of right C5 lamina extending to base of spinous process. C MR w multilevel cervical spondylosis w severe C4-5 and C5-6 central canal stenosis. Upright cervical XR stable. ?? Neuro exam stable. ?? -No current surgical plans, although will need cervical decompression for central cord syndrome outpatient once he is healed from his fracture -[place] collar to be worn at all times (09/06) x 3 months for C5 lamina fx -Okay to advance diet/activity as tolerated, therapies -Gabapentin 300mg TID for hyperesthesias -Okay to resume AUDIT ASSOCIATE AC and DVT prophylaxis -Okay to dc once passes therapies, 1 mo f/u placed -Will follow peripherally, please call w questions Edna Barragan PA-C Pager: 06/21/2022 2:55 PM Erlinda Jackson RN - 06/21/2022 2:27 PM CDT Med-Surg Care Progression Note Type: Shift to shift summary Length of stay: 3 days Code Status: Full Code Primary Problem: Fall out of bed, +etoh. C5 pedicle fx, central cord syndrome Summary: No current plans for surgical interventions, possible cervical decompression once fx healed(in >3mo) F- Feeding & Fluids: Tolerating heart healthy, 2gm sodium diet. Takes pills whole 2 at a time. Needs assistance placing pills into mouth d/t bilat hand paresthesias. A- Analgesic & Anticoagulation: Comfort Goal: Numeric, Verbal, Faces: 3 Analgesic Hypersensitivity to bilateral hands/wrists causing high levels of pain. Given scheduled tylenol. Has PRN oxycodone and robaxin available but not needed. Anticoagulation/DVT prevention & plan SCDs, Eliquis, and ASA S- Skin: Total Luther Score: 18: Maintaining skin integrity/pressure prevention. Abrasions to forehead. Possible prolapse vs large hemorrhoid to anus. Scant drainage from area. No interventions currently. Mepilex under aspen T- Telemetry: No tele E- Emotional & Neuro: Participating in cares Neuro Alert and Oriented. Hypersensitivity to bilateral wrists and fingers. N/T to feet remains unchanged. CIWAs 0 - CAN D/C CIWA @ 1625 IF REMAINS <8 R- Respiratory: On room air H- Head OUT of Bed & Activity: Activate Fall Alert? (Enter 1 or 0): 1 Ambulating SBA with walker. [place] in place. Therapies following U- Urologic/bowel: Size: Small (06/20/2022 11:59 PM) Urban removed around 1200, DTV [id number]. BMs occasionally bloody d/t rectal prolapse/hemmrhoids. G- Glycemic Control: Not applicable T- Treatment: Awaiting d/c plan - progress with therapies over the weekend vs TCU (referrals sent) I- Invasive Devices: PIV D- Discharge: Awaiting d/c plan - progress with therapies over the weekend vs TCU (referrals sent). Will need some family member to come learn [place] pad change and cleaning if does d/c home. Melo Foley PA-C - 06/21/2022 8:30 AM CDT TRAUMA DAILY PROGRESS NOTE LOS: 3 days Patient seen on 06/21/2022 at 8:30AM CC/HPI: Accidental fall from bed INTERVAL HISTORY: No acute events overnight. Patient seen sitting in recliner. He feels well, reports ongoing weakness and paresthesias to the bilateral arms which he feels is much improved from admission. Discussed D/C home today with family support, patient states well I don't need anyone's help anyway, I can take care of myself. Been up and walking with RW with SBA. REVIEW OF SYSTEMS: A comprehensive review of systems was negative except for items noted in the interval history. PAST MEDICAL HISTORY: No Change AUDIT ASSOCIATE MEDICATIONS: Essential AUDIT ASSOCIATE meds restarted CURRENT MEDS: Current Facility-Administered Medications: saline FLUSH syringe 10 mL, 10 mL, Intravenous, Q8H saline FLUSH syringe 10 mL, 10 mL, Intravenous, PRN acetaminophen (TYLENOL) tablet 1,000 mg, 1,000 mg, oral, TID OR acetaminophen (TYLENOL) rectal suppository 650 mg, 650 mg, Rectal, TID amiodarone (CORDARONE) tablet 200 mg, 200 mg, oral, DAILY apixaban (ELIQUIS) tablet 5 mg, 5 mg, oral, Twice Daily aspirin enteric coated tablet 81 mg, 81 mg, oral, DAILY atorvastatin (LIPITOR) tablet 80 mg, 80 mg, oral, DAILY bisacodyl (DULCOLAX) suppository 1 suppository, 1 suppository, Rectal, DAILY PRN cholecalciferol (vitamin D3) 25 mcg (1000 unit) tablet 25 mcg, 25 mcg, oral, DAILY cyanocobalamin tablet 1,000 mcg, 1,000 mcg, oral, DAILY fluticasone propionate (FLONASE) nasal spray 1 spray, 1 spray, Each Nostril, DAILY folic acid (FOLVITE) tablet 1 mg, 1 mg, oral, DAILY gabapentin (NEURONTIN) capsule 300 mg, 300 mg, oral, TID isosorbide mononitrate (IMDUR) extended release tablet 24 HR 30 mg, 30 mg, oral, DAILY lidocaine (LMX-4) topical cream 1 Application, 1 Application, topical, PRN lidocaine / sod bicarb (buffered lidocaine) syringe for IV starts 0.1-0.3 mL, 0.1-0.3 mL, Intradermal, PRN lidocaine 1% (PF) (XYLOCAINE) injection 0.1-0.3 mL, 0.1-0.3 mL, Intradermal, PRN lidocaine 4% (Salonpas) adhesive patch, medicated 1-3 patch, 1-3 patch, Transdermal, DAILY loratadine (CLARITIN) tablet 10 mg, 10 mg, oral, DAILY lubricant drops ophthalmic (EYE) solution 1-2 drop, 1-2 drop, Each Eye, TID PRN magnesium hydroxide (MILK OF MAGNESIA) suspension 15 mL, 15 mL, oral, DAILY PRN methocarbamoL (ROBAXIN) tablet 250-500 mg, 250-500 mg, oral, Q6H PRN metoprolol tartrate (LOPRESSOR) tablet 50 mg, 50 mg, oral, Twice Daily multivitamin (CERTAVITE) tablet 1 tablet, 1 tablet, oral, DAILY ondansetron (ZOFRAN) disintegrating tablet 4 mg, 4 mg, oral, Q8H PRN OR ondansetron (ZOFRAN) injection 4 mg, 4 mg, Intravenous, Q8H PRN oxyCODONE (immediate release) (ROXICODONE) tablet 2.5-5 mg, 2.5-5 mg, oral, Q4H PRN pantoprazole (PROTONIX) delayed release tablet 40 mg, 40 mg, oral, DAILY polyethylene glycol (MIRALAX) packet 17 g, 17 g, oral, DAILY predniSONE (DELTASONE) tablet 10 mg, 10 mg, oral, DAILY prochlorperazine (COMPAZINE) injection 5 mg, 5 mg, Intravenous, Q6H PRN senna-docusate (SENNA-S) tablet 1 tablet, 1 tablet, oral, Twice Daily sulfaSALAzine (AZULFIDINE) tablet 1,000 mg, 1,000 mg, oral, Twice Daily EXAM: Temp (24hrs), Av.1 ??F (36.7 ??C), Min:97.3 ??F (36.3 ??C), Max:98.8 ??F (37.1 ??C) BP 101/72 Pulse (!) 58 Temp 98 ??F (36.7 ??C) Resp 16 Ht 5' 2 (1.575 m) Wt 54 kg (119 lb) SpO2 90% BMI 21.77 kg/m?? 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 Integumentary: warm, dry. Psych: Normal affect. Wound Simple Face;Forehead (Active) First Observed/Origin Date/First Observed/Origin Time: 06/18/22 1302 Location: Face;Forehead Wound Observance : Prior to Admission Wound Simple Rectum (Active) First Observed/Origin Date: 06/19/22 Location: Rectum Intake/Output Summary (Last 24 hours) at 06/21/2022 1515 Last data filed at 06/21/2022 1300 Gross per 24 hour Intake 1560 ml Output 1070 ml Net 490 ml RECENT LABS: Recent Labs 06/19/22 0451 WBC 9.2 RBC 3.53* HEMOGLOBIN 12.4* HEMATOCRIT 37.9* MCV 107* MCH 35* RDW 14.2 PLATELETCT 191 Recent Labs 06/19/22 0451 06/20/22 0626 SODIUM 140 -- POTASSIUM 4.4 4.2 CHLORIDE 107 -- CARBONDIOXI 22 -- ANIONGAP 11.0 -- GLUCOSE 98 -- BUNUREANRO 19 -- CREATININE 1.19* 1.23* CALCIUMSERUM 9.2 -- ESTGFRMDRD >60.00 >60.00 IMAGING: No Images in Past 24 hours. ADDITIONAL COMMENTS: I reviewed the patient's new clinical labs and imaging test results as includedin this note. I discussed the patient's care with bedside RN, Pharmacy, Social Work, 6W charge nurse. I have seen this patient and discussed my findings and exam with Dr. Saini. The assessment and plan is based on our joint decision making. ASSESSMENT/PLAN: Sara Barillas is a chronically ill 72 year-old male with past medical history of congestive heart failure, CAD with prior STEMI status post CABG x2, hypertension and alcohol abuse who presented??[facility] ED following fall out of bed. Initially seen at [place] where imaging revealed a C5 lamina fx. ?Active Hospital Problems ?Accidental fall from bed - Mechanical in etiology. ??No further work-up indicated. - Tertiary exam completed, no additional injuries noted - Monitor for post concussive symptoms - Therapies ?? Closed Head Injury CT head negative for intracranial bleed. - Suspect falls are secondary to alcohol abuse, though monitored??on telemetry for 24h d/t??significant cardiac history- No events. - Monitor for post-concussive syndrome. - Symptomatic control. ?? C5 pedicle fracture (HCC) 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, init (HCC) - Neurosurgery consulted -??MR with??multilevel cervical spondylosis with??severe C4-5 and C5-6 central canal stenosis - Recommend non operative management??for C5 fx??, although will need cervical decompression at somepoint (this hospitalization versus outpatient elective once fully healed from C5 fx - timing TBD pending inpatient recovey) - [place] X ??3 months -??Uprights completed, cleared to mobilize - Therapies? Rib Fractures, Chronic ?? Patient endorses prior fall where he knows he broke some ribs denies??any chest wall tenderness currently. -??Rib fracture protocol, pulmonary toilet - Encourage deep breathing, IS and OOB as tolerated. - Therapies and multimodal pain regimen -??Patient maintaining O2 sats greater than 90% on room air.? ETOH abuse Patient endorses daily drinking, 1-3 beers, 2 shots of whiskey. He declines [facility] consult. - CIWA. - Vitamins.? Acute Pain due to Trauma Multimodal pain regimen: Acetaminophen, Robaxin, Lidoderm patches, Oxycodone, D/C IV dilaudid?? - Gabapentin at 300 mg TID last increased 06/20. ?? AUR - Urban placed 06/19 - remove today with voiding trial ?? Past Medical History: GERD - continue AUDIT ASSOCIATE??PPI Osteoporosis - continue AUDIT ASSOCIATE??Vitamins DVT/PE - restart AUDIT ASSOCIATE eliquis STEMI with CABG x2 - denies chest pain, continue BB, Statin, Amiodarone, Eliquis, aspirin Acute Pain Management: APAP, Muscle Relaxant, Lidoderm Patch, Gabapentin, PO Narcotic Lines: PIV Fluids/Electrolytes/Nutrition: reg diet Ulcer Prophylaxis: None indicated Bowel Medications: Senna-S, Miralax and Dulcolax Suppository. LBM Size: Small (06/20/2022 11:59 PM) Urban: remove today DVT Prophylaxis: Mechanical, Mobilize, eliquis Restraints: Not indicated Wounds/Skin Care/Carolyn/Sutures: OOB and mobilize. Frequent turning and reposition in bed. RN skin assessments. Antibiotics: N/A Family Communication: updated by provider yesterday, per CM family not able to provide 24/7 cares. Disposition: Criteria for Discharge: progress to home with support but not needing 24/7 cares. Will need family members support to do aspen cares. Post Hospital Plan: D/C home tomorrow likely 30 minutes total time spent with customer, more than 50% of time spent counseling and/or coordination of care. Melo Foley PA-C Trauma Emi Babb RN - 06/21/2022 4:24 AM CDT Med-Surg Care Progression Note Type: Shift to shift summary Length of stay: 3 days Code Status: Full Code Primary Problem: Fall out of bed, +etoh. C5 pedicle fx, central cord syndrome Summary: No current plans for surgical interventions, possible cervical decompression once fx healed F- Feeding & Fluids: Tolerating regular diet, denies N/V A- Analgesic & Anticoagulation: Comfort Goal: Numeric, Verbal, Faces: 2 Analgesic Hypersensitivity to bilateral hands/wrists causing high levels of pain. Given PRN oxycodone and robaxin, along with scheduled tylenol Anticoagulation/DVT prevention & plan SCDs S- Skin: Total Luther Score: 18: Maintaining skin integrity/pressure prevention. Abrasions to forehead. Possible prolapse vs hemorrhoid to anus. Scant drainage from area. No interventions currently. Mepilex under aspen T- Telemetry: Rhythm: Sinus Bradycardia Ectopy: None No tele E- Emotional & Neuro: Participating in cares Neuro Alert and Oriented. Hypersensitivity to bilateral wrists and fingers. N/T to feet remains unchanged. CIWAs 0. R- Respiratory: On room air H- Head OUT of Bed & Activity: Activate Fall Alert? (Enter 1 or 0): 1 Ambulating A1 with walker.[place] in place. Therapies following U- Urologic/bowel: Size: Small (06/20/2022 11:59 PM) Urban in place. Noted hematuria. Irrigated with 30mL, no clots noted. UA sent down. Multiple BMs, occasionally bloody d/t hemmrhoids. G- Glycemic Control: Not applicable T- Treatment: CIWA, therapies, pain control I- Invasive Devices: PIV D- Discharge: TBD Faby Hubbard APRN, [employer] - 06/21/2022 2:26 AM CDT Paged by RN regarding concern for hematuria in urban. A/P - flush urban with 30 ml NS - UA - RN to contact trauma if hematuria does noes not improve/ worsens - discussed with RN Ua demonstrating large amount of blood and positive WBC, negtaive nitrates. No wbc. No specific urinary symptoms reported bedsides bladder spasms. Will send urine culture and hold on abx for now. If patient becomes febrile or develops leukocytosisconsider empiric tx and narrow per culture/ sensitivity Faby Hubbard APRN, [employer] Phillip Jimenez RN - 06/20/2022 6:28 PM CDT [id number] Update: No acute events this shift. Patient calm and cooperative. Up with SBA and walker, aspen collar in place. Ambulated to bathroom. Urban catheter in place, flow patent. Passing gas with very small stool this shift. Has prolapsed hemorrhoids, care team aware. Started on aspirin this shift. C/O pain/numbness to bilateral hands but states pain is improving. Anahi Guido RN - 06/20/2022 3:48 PM CDT Med-Surg Care Progression Note Type: Shift to shift summary Length of stay: 2 days Code Status: Full Code Primary Problem: Fall out of bed, +etoh. C5 pedicle fx, central cord syndrome Summary: No acute events. Pain improving w/ scheduled/PRN meds. Low urban output AM shift; 200 cc. Encourage fluids. No BM, sup given. F- Feeding & Fluids: Tolerating regular diet, denies N/V. Needs fluids encouragement. A- Analgesic & Anticoagulation: Comfort Goal: Numeric, Verbal, Faces: 1 - Mild Analgesic Hypersensitivity to bilateral hands/wrists causing high levels of pain. Given PRN oxycodone and robaxin. Anticoagulation/DVT prevention & plan SCDs S- Skin: Total Luther Score: 18: Maintaining skin integrity/pressure prevention. Abrasions to forehead. Anal prolapse/hemorroids- chronic thing, no intervention. Scant drainage from area. Mepilex underaspen. Pads changed today. T- Telemetry: Rhythm: Sinus Bradycardia Ectopy: None No tele E- Emotional & Neuro: Participating in cares Neuro Alert and Oriented. Hypersensitivity to bilateral wrists and fingers. N/T to feet remains unchanged. CIWAs 0. R- Respiratory: On room air H- Head OUT of Bed & Activity: Activate Fall Alert? (Enter 1 or 0): 1 Ambulating A1 with walker.[place] in place. Therapies following . Did stairs today. U- Urologic/bowel: No data recorded Still unable to void. Urban placed on NOC. No BM., sup given. G- Glycemic Control: Not applicable T- Treatment: CIWA, therapies, pain control I- Invasive Devices: PIV D- Discharge: Tomorrow home w/ 09/06 support. Brenda Olson - 06/20/2022 2:52 PM CDT HOME & COMMUNITY SERVICES NOTE: 06/20/22 2:52 PM Home care services for Sara arranged with [facility] F; [phone]. 06/20/22 4:08 PM [facility] unable to take. 06/20/22 4:09 PM Home care services for Sara arranged with [facility]; F; . Brenda Olson [facility] [phone] Edna Barragan PA-C - 06/20/2022 9:51 AM CDT Neurosurgery Progress Note HD #3 Chief complaint: Pain in hands Interval: Patient reports continued BUE pain in wrists/hands w hyperesthesias and improved numbness in bilat feet. Denies any new or worsening n/t/pain or focal weakness in BUE/BLEs. No neck pain. Tolerating aspen collar. Ambulated halls w therapies. ?? Patient Vitals for the past 6 hrs: BP Temp Pulse Resp SpO2 06/20/22 0742 (!) 154/98 98 ??F (36.7 ??C) 66 20 93 % Allergies: Patient has no known allergies. Neurological Physical Exam: General: WDWN elderly male lying in bed, aspen collar in place which appears to fit appropriately, NAD Higher integrative functions: Awake, alert. Follows commands Attention Span and Concentration: Good Language: Clear and fluent Fund of Knowledge: Good CN II-XII: Face symmetrical. Conjugate gaze Motor:??RUE D 4/5, B 4+/5, T 4/5, G 3/5. LUE D 5/5, B 5/5, T 4+/5, G 3/5. BLEs 5/5 throughout Sensation:??Decreased sensation in feet bilaterally. Hyperesthesias in bilateral hands. SILT in remaining extremities ?? Labs: SODIUM Date Value Ref Range Status 06/19/2022 140 136 - 145 mmol/L Final WBC Date Value Ref Range Status 06/19/2022 9.2 4.3 - 10.8 K/uL Final RBC Date Value Ref Range Status 06/19/2022 3.53 (L) 4.60 - 6.20 M/uL Final HEMOGLOBIN Date Value Ref Range Status 06/19/2022 12.4 (L) 14.0 - 18.0 gm/dL Final Impression/Plan: 72 y.o. male??with pmhx significant for alcohol abuse, CHF, CKD and HTN who presented to OSH for evaluation after a fall??out of bed w c/o bilat hand/forearm burning pain and bilat hand/feet numbness. C CT w mildly displaced fracture of right C5 lamina extending to base of spinous process. C MR w multilevel cervical spondylosis w severe C4-5 and C5-6 central canal stenosis. Uprightcervical XR stable. ?? Neuro exam stable. ?? -No current surgical plans, although will need cervical decompression for central cord syndrome outpatient once he is healed from his fracture -[place] collar to be worn at all times (09/06) x 3 months for C5 lamina fx -Okay to advance diet/activity as tolerated, therapies -Gabapentin 300mg TID for hyperesthesias -Okay to resume AUDIT ASSOCIATE AC and DVT prophylaxis -Okay to dc once passes therapies, 1 mo f/u placed Edna Barragan PA-C Pager: 06/20/2022 9:52 AM Kaela Bhatti APRN, ADAM - 06/20/2022 8:00 AM CDT TRAUMA DAILY PROGRESS NOTE LOS: 2 days Patient seen on 06/20/2022 at 8:00 AM. CC/HPI: Accidental fall from bed INTERVAL HISTORY: The patient was sitting up after therapies at visit. Continues to have hyperesthesias to bilateral hands. Agrees to gabapentin dose increase. He denied SOB, CP, nausea of dizziness. REVIEW OF SYSTEMS: Last 24 hours denies fever, chills, abdominal pain or distention, nausea/vomiting, diarrhea, hematochezia or melena, chest pain and shortness of breath, numbness or paresthesia, headache, vision changes or dizziness. A comprehensive review of systems was negative except for items noted in the interval history. PAST MEDICAL HISTORY: No Change AUDIT ASSOCIATE MEDICATIONS: Essential AUDIT ASSOCIATE meds restarted CURRENT MEDS: Current Facility-Administered Medications: saline FLUSH syringe 10 mL, 10 mL, Intravenous, Q8H saline FLUSH syringe 10 mL, 10 mL, Intravenous, PRN acetaminophen (TYLENOL) tablet 1,000 mg, 1,000 mg, oral, TID OR acetaminophen (TYLENOL) rectal suppository 650 mg, 650 mg, Rectal, TID amiodarone (CORDARONE) tablet 200 mg, 200 mg, oral, DAILY atorvastatin (LIPITOR) tablet 80 mg, 80 mg, oral, DAILY cholecalciferol (vitamin D3) 25 mcg (1000 unit) tablet 25 mcg, 25 mcg, oral, DAILY cyanocobalamin tablet 1,000 mcg, 1,000 mcg, oral, DAILY enoxaparin (LOVENOX) injection 30 mg, 30 mg, Subcutaneous, Twice Daily fluticasone propionate (FLONASE) nasal spray 1 spray, 1 spray, Each Nostril, DAILY folic acid (FOLVITE) tablet 1 mg, 1 mg, oral, DAILY gabapentin (NEURONTIN) capsule 100 mg, 100 mg, oral, TID lidocaine (LMX-4) topical cream 1 Application, 1 Application, topical, PRN lidocaine / sod bicarb (buffered lidocaine) syringe for IV starts 0.1-0.3 mL, 0.1-0.3 mL, Intradermal, PRN lidocaine 1% (PF) (XYLOCAINE) injection 0.1-0.3 mL, 0.1-0.3 mL, Intradermal, PRN lidocaine 4% (Salonpas) adhesive patch, medicated 1-3 patch, 1-3 patch, Transdermal, DAILY loratadine (CLARITIN) tablet 10 mg, 10 mg, oral, DAILY lubricant drops ophthalmic (EYE) solution 1-2 drop, 1-2 drop, Each Eye, TID PRN magnesium hydroxide (MILK OF MAGNESIA) suspension 15 mL, 15 mL, oral, DAILY PRN MAGNESIUM REPLACEMENT INTRAVENOUS - NOT FOR DOCUMENTATION PURPOSES, , Intravenous, PER PROTOCOL methocarbamoL (ROBAXIN) tablet 250-500 mg, 250-500 mg, oral, Q6H PRN metoprolol tartrate (LOPRESSOR) tablet 50 mg, 50 mg, oral, Twice Daily multivitamin (CERTAVITE) tablet 1 tablet, 1 tablet, oral, DAILY ondansetron (ZOFRAN) disintegrating tablet 4 mg, 4 mg, oral, Q8H PRN OR ondansetron (ZOFRAN) injection 4 mg, 4 mg, Intravenous, Q8H PRN oxyCODONE (immediate release) (ROXICODONE) tablet 2.5-5 mg, 2.5-5 mg, oral, Q4H PRN pantoprazole (PROTONIX) delayed release tablet 40 mg, 40 mg, oral, DAILY polyethylene glycol (MIRALAX) packet 17 g, 17 g, oral, DAILY POTASSIUM REPLACEMENT INTRAVENOUS - NOT FOR DOCUMENTATION PURPOSES, , Intravenous, PER PROTOCOL POTASSIUM REPLACEMENT ORAL - NOT FOR DOCUMENTATION PURPOSES, , oral, PER PROTOCOL predniSONE (DELTASONE) tablet 10 mg, 10 mg, oral, DAILY prochlorperazine (COMPAZINE) injection 5 mg, 5 mg, Intravenous, Q6H PRN senna-docusate (SENNA-S) tablet 1 tablet, 1 tablet, oral, Twice Daily thiamine (VITAMIN B1) tablet 100 mg, 100 mg, oral, DAILY OR thiamine (B-1) injection 100 mg, 100mg, Intravenous, DAILY EXAM: Temp (24hrs), Av.3 ??F (36.8 ??C), Min:98 ??F (36.7 ??C), Max:98.9 ??F (37.2 ??C) BP (!) 154/98 Pulse 66 Temp 98 ??F (36.7 ??C) Resp 20 Ht 5' 2 (1.575 m) Wt 54 kg (119 lb) SpO2 93% BMI 21.77 kg/m?? Patient Vitals for the past 72 hrs: Weight 06/18/22 1617 54 kg (119 lb) General: No acute distress, pleasant, interactive Neurologic: Alert and oriented x3, no acute focal deficits Eyes: PERRLA, EOMs intact Head: Normoce phalic, atraumatic Neck: [place] in place Respiratory/Chest: stable on room air, no dyspnea, symmetrical chest movement, clear and equal lung sounds throughout anterolateral webb Cardiovascular: Regular rate and rhythm. No murmur. No JVD. 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 Integumentary: warm, dry Psych: Normal affect Wound Simple Face;Forehead (Active) First Observed/Origin Date/First Observed/Origin Time: 06/18/22 1302 Location: Face;Forehead Wound Observance : Prior to Admission Wound Simple Rectum (Active) First Observed/Origin Date: 06/19/22 Location: Rectum Intake/Output Summary (Last 24 hours) at 06/20/2022 0800 Last data filed at 06/20/2022 0640 Gross per 24 hour Intake 320 ml Output 850 ml Net -530 ml RECENT LABS: Recent Labs 06/19/22 0451 WBC 9.2 RBC 3.53* HEMOGLOBIN 12.4* HEMATOCRIT 37.9* MCV 107* MCH 35* RDW 14.2 PLATELETCT 191 Recent Labs 06/19/22 0451 06/20/22 0626 SODIUM 140 -- POTASSIUM 4.4 4.2 CHLORIDE 107 -- CARBONDIOXI 22 -- ANIONGAP 11.0 -- GLUCOSE 98 -- BUNUREANRO 19 -- CREATININE 1.19* 1.23* CALCIUMSERUM 9.2 -- ESTGFRMDRD >60.00 >60.00 IMAGING: No Images in Past 24 hours. ADDITIONAL COMMENTS: I reviewed the patient's new clinical labs and imaging test results as includedin this note. I discussed the patient's care with bedside RN, Pharmacy, Social Work, charge nurse. Slick seen this patient and discussed my findings and exam with Dr. Saini. The assessment and plan is based on our joint decision making. ADDITIONAL COMMENTS: I reviewed the patient's new clinical labs and imaging test results as includedin this note. I discussed the patient's care with bedside RN, Pharmacy, Social Work, charge nurse. Slick seen this patient and discussed my findings and exam with Dr. Saini. The assessment and plan is based on our joint decision making. ? ASSESSMENT/PLAN: Sara Barillas is a chronically ill 72 year-old male with past medical history of congestive heart failure, CAD with prior STEMI status post CABG x2, hypertension and alcohol abuse who presented to [facility] ED following fall out of bed. Initially seen at [place] where imaging revealed a [id number] fx. ?? Active Hospital Problems Accidental fall from bed - Mechanical in etiology. ??No further work-up indicated. - Tertiary exam completed, no additional injuries noted - Monitor for post concussive symptoms - Therapies ?? Closed Head Injury CT head negative for intracranial bleed. - Suspect falls are secondary to alcohol abuse, though monitored on telemetry for 24h d/t significant cardiac history- No events. - Monitor for post-concussive syndrome. - Symptomatic control. ?? C5 pedicle fracture (HCC) 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, init (HCC) - Neurosurgery consulted - MR with multilevel cervical spondylosis with severe C4-5 and C5-6 central canal stenosis - Recommend non operative management for C5 fx , although will need cervical decompression at some point (this hospitalization versus outpatient elective once fully healed from C5 fx - timing TBD pending inpatient recovey) - [place] X 3 months - Uprights completed, cleared to mobilize - Therapies ?? Rib Fractures, Chronic ?? Patient endorses prior fall where he knows he broke some ribs denies any chest wall tenderness currently. - Rib fracture protocol, pulmonary toilet - Encourage deep breathing, IS and OOB as tolerated. - Therapies and multimodal pain regimen - Patient maintaining O2 sats greater than 90% on room air. ?? ETOH abuse Patient endorses daily drinking, 1-3 beers, 2 shots of whiskey. He denies LADC consult. - CIWA. - Vitamins.? Acute Pain due to Trauma Multimodal pain regimen: Acetaminophen, Robaxin, Lidoderm patches, Oxycodone, IV Dilaudid for breakthrough only.?? - Initiated Gabapentin at 100 mg TID for??hyperesthesias.?? Dose increased to 300 mg 3 times daily on 06/20/2022 per neurosurgery recs. ?? AUR - Urban placed 06/19 - Attempt voiding trial in a few days Past Medical History: GERD - continue AUDIT ASSOCIATE??PPI Osteoporosis - continue AUDIT ASSOCIATE??Vitamins DVT/PE - holding AUDIT ASSOCIATE Eliquis STEMI with CABG x2 - denies chest pain, continue BB, Statin, Amiodarone, Eliquis, aspirin Lines: PIV Fluids/Electrolytes/Nutrition: Regular Ulcer Prophylaxis: PPI Bowel Medications: Senna-S LBM: No data recorded Urban: No DVT Prophylaxis: Eliquis, Mechanical, Mobilize Restraints: Not indicated Wounds/Skin Care: Skin surveillance, frequent turns, protective measures, OOB, mobilize??as able Antibiotics: None Family Communication: discussed with family, patients daughter updated Disposition: Criteria for Discharge: Medically stable Post Hospital Plan: DC home with home care tomorrow. Family unable to pickle pumper today. 30 minutes total time spent with customer, more than 50% of time spent counseling and/or coordination of care. Kaela Bhatti APRN, CNP Trauma and Acute Care Surgery Emi Babb RN - 06/20/2022 3:55 AM CDT Med-Surg Care Progression Note Type: Shift to shift summary Length of stay: 2 days Code Status: Full Code Primary Problem: Fall out of bed, +etoh. C5 pedicle fx, central cord syndrome Summary: No current plans for surgical interventions, possible cervical decompression once fx healed F- Feeding & Fluids: Tolerating regular diet, denies N/V A- Analgesic & Anticoagulation: Comfort Goal: Numeric, Verbal, Faces: 1 - Mild Analgesic Hypersensitivity to bilateral hands/wrists causing high levels of pain. Given PRN oxycodone and robaxin. Anticoagulation/DVT prevention & plan SCDs S- Skin: Total Luther Score: 17: Maintaining skin integrity/pressure prevention. Abrasions to forehead. Possible prolapse vs hemorrhoid to anus. Scant drainage from area. No interventions currently. Mepilex under aspen T- Telemetry: Rhythm: Sinus Bradycardia Ectopy: None No tele E- Emotional & Neuro: Participating in cares Neuro Alert and Oriented. Hypersensitivity to bilateral wrists and fingers. N/T to feet remains unchanged. CIWAs 0. R- Respiratory: On room air H- Head OUT of Bed & Activity: Activate Fall Alert? (Enter 1 or 0): 1 Ambulating A1 with walker.[place] in place. Therapies following U- Urologic/bowel: No data recorded Still unable to void. Urban placed. No BM. G- Glycemic Control: Not applicable T- Treatment: CIWA, therapies, pain control I- Invasive Devices: PIV D- Discharge: TBD Faby Hubbard APRN, CNP - 06/19/2022 11:57 PM CDT AUR despite 3 straight cath. Urban orders. Faby Hubbard APRN, [employer] Adeola Arguello RN - 06/19/2022 10:41 PM CDT Med-Surg Care Progression Note Type: Shift to shift summary Length of stay: 1 days Code Status: Full Code Primary Problem: Fall out of bed, +etoh. C5 pedicle fx, central cord syndrome. No surgery intervention at this point, possibly down the road for cervical decompression Summary: Urinary retention, BS for 288 this shift. SC goal if > 400 F- Feeding & Fluids: Tolerating softdirt with thin liquids. No N/V A- Analgesic & Anticoagulation: Comfort Goal: Numeric, Verbal, Faces: 1 - Mild Analgesic Scheduled pain meds; Hypersensensitivity to bilat hands/wrists Anticoagulation/DVT prevention & plan SCDs and Anticoagulant plan Lovenox S- Skin: Total Luther Score: 17: Maintaining skin integrity/pressure prevention. Abrasions to forehead. Noted prolapse (?) to anus. Anal prolapse/hemorrhoid- chronic, no intervention at this point. Mild bleeding. Mepilex under aspen T- Telemetry: Rhythm: Sinus Bradycardia Ectopy: None No tele E- Emotional & Neuro: Participating in cares Neuro Alert, oriented. Neuros intact. CIWA -0, N/T to feet R- Respiratory: On room air H- Head OUT of Bed & Activity: Activate Fall Alert? (Enter 1 or 0): 1 Ambulating with A1, walker, Gb. Walker at baseline. [place] at all times Early mobility Phases 1-4: Phase 4: Ambulation U- Urologic/bowel: No data recorded SC for 288, retaining urine. No BM G- Glycemic Control: NA T- Treatment: Pain control, therapies I- Invasive Devices: PIV X1 D- Discharge: TBD Cornelio Ng MD - 06/19/2022 2:14 PM CDT Neurosurgery Progress Note HD #2 Chief complaint: BUE pain/hyperesthesias Interval: Patient reports continued BUE pain in wrists/hands w hyperesthesias, continued stable numbness in bilat feet. Denies any new or worsening n/t/pain or focal weakness in BUE/BLEs. No neck pain.Tolerating aspen collar. Patient Vitals for the past 6 hrs: BP Temp Pulse Resp SpO2 06/19/22 1122 117/80 98.2 ??F (36.8 ??C) 69 18 93 % Allergies: Patient has no known allergies. Neurological Physical Exam: General: WDWN elderly male lying in bed, aspen collar in place which appears to fit appropriately, NAD Higher integrative functions: Awake, alert. Follows commands Attention Span and Concentration: Good Language: Clear and fluent Fund of Knowledge: Good CN II-XII: Face symmetrical. Conjugate gaze Motor: RUE D 4/5, B 4+/5, T 4/5, G 3/5. LUE D 5/5, B 5/5, T 4+/5, G 3/5. BLEs 5/5 throughout Sensation: Decreased sensation in feet bilaterally. Hyperesthesias in bilateral hands. SILT in remaining extremities Labs: SODIUM Date Value Ref Range Status 06/19/2022 140 136 - 145 mmol/L Final WBC Date Value Ref Range Status 06/19/2022 9.2 4.3 - 10.8 K/uL Final RBC Date Value Ref Range Status 06/19/2022 3.53 (L) 4.60 - 6.20 M/uL Final HEMOGLOBIN Date Value Ref Range Status 06/19/2022 12.4 (L) 14.0 - 18.0 gm/dL Final Imaging: XR Cervical 06/18/22 IMPRESSION: Three view cervical spine series. ?? C5 fractures are not well delineated radiographically. ?? Stable grade 1 anterolisthesis at C2-3 and retrolisthesis from C3-4 to C5-6. Ankylosing across the C3-4 interspace, unchanged. Levoconvex upper thoracic scoliosis, stable. There is no abnormal prevertebral edema. Multilevel cervical spondylosis, unchanged. MRI Cervical 06/18/22 IMPRESSION: 1. MR confirmation of segmental intramedullary T2 prolongation from C3-4 to C6, which could reflect cord edema from high-grade degenerative central canal stenosis or posttraumatic cord contusion. No hemorrhagic component is identified. 2. C5 fracture is better visualized on the prior CT exam. 3. Mild prevertebral edema from lower C2 to the cervicothoracic junction. Additional dorsal interspinous ligamentous sprain at the mid cervical spine. 4. Grade 1 anterolisthesis at C2-C3 as well as retrolisthesis from C3-4 to C4-5. 5. Multilevel cervical spondylosis resulting in severe C4-5 and C5-C6 central canal stenosis. Effacement of intrathecal CSF with active cord compression and ventral cord flattening at both interspace levels. Additional moderate C6-7 and mild to moderate C3-4 central canal stenosis, without cord compression at those two levels. 6. Severe osseous neural foraminal stenosis at C4-5 bilaterally, right C5-6 and bilaterally C6-7. Lesser neural foraminal stenosis elsewhere as described. Impression/Plan: 72 y.o. male with pmhx significant for alcohol abuse, CHF, CKD and HTN who presented to OSH for evaluation after a fall out of bed w c/o bilat hand/forearm burning pain and bilat hand/feet numbness. C CT w mildly displaced fracture of right C5 lamina extending to base of spinous process. HCT x 2 negative. C MR w multilevel cervical spondylosis w severe C4-5 and C5-6 central canal stenosis. Upright cervical XR stable. Case and imaging reviewed w Dr. Ng. Neuro exam stable. -No current surgical plans, although will need cervical decompression at some point (this hospitalization versus outpatient elective once fully healed from C5 fx - timing TBD pending inpatient recovey) -[place] collar to be worn at all times (09/06) x 3 months for C5 lamina fx -Okay to advance diet/activity as tolerated, therapy consults -Gabapentin 300mg TID for hyperesthesias -Following along Edna Barragan PA-C Pager: 06/19/2022 2:14 PM Agree with above Patient with bilateral hand numbness and weakness. He is tolerating his [place] collar well MRI scan did reveal significant cervical stenosis I do feel this most closely fits with a central cord syndrome and I would like patient to recover before further discussion of surgery. No urgent surgical plans but will likely need decompression surgery after he is healed from his fracture Okay to increase activity as able Neurosurgical continue to follow Cornelio Ng MD [facility] Neurosurgery [phone] Pg. [phone] Anahi Guido RN - 06/19/2022 10:39 AM CDT Med-Surg Care Progression Note Type: Shift to shift summary Length of stay: 1 days Code Status: Full Code Primary Problem: Fall out of bed, +etoh. C5 pedicle fx, central cord syndrome. No surgery intervention at this point, possibly down the road for cervical decompression. Summary: No acute events this shift. Pt was cleared for activity as tolerated/ADAT by neurosurg. Rates pain high. [place] on. Nausea, Zofran x 1. Tele discontinued. Urinary retention, chronic. Straight cath x 1 this shift-500 cc out. F- Feeding & Fluids: Soft diet, thin liq. Denies any nausea this shift. A- Analgesic & Anticoagulation: Comfort Goal: Numeric, Verbal, Faces: 2 Analgesic Hypersensitivity/pain to bilateral hands/wrists. Given scheduled tylenol, PRN robaxin and oxycodone with relief. Anticoagulation/DVT prevention & plan SCDs S- Skin: Total Luther Score: 17: Maintaining skin integrity/pressure prevention. Abrasions to forehead. Noted prolapse (?) to anus. Anal prolapse/hemorrhoid- chronic, no intervention at this point. Mild bleeding. Mepilex applied under aspen T- Telemetry: Rhythm: Sinus Bradycardia Ectopy: None Tele discontinued. E- Emotional & Neuro: Participating in cares Neuro Alert and Oriented. Hypersensitivity to bilateral wrists and fingers. N/T to feet. All new since fall per patient. MRI completed. Neuros q2h. CIWA 0-1. R- Respiratory: On room air at baseline H- Head OUT of Bed & Activity: Activate Fall Alert? (Enter 1 or 0): 1 Cleared for ambulation by neurosug, waiting for therapies. U- Urologic/bowel: No data recorded Straight cath x1 in the night, x 1 on days. No BM this shift. Miralax/senna given. G- Glycemic Control: NA T- Treatment: CIWA, therapies, pain control I- Invasive Devices: PIV x2 D- Discharge: TBD Kaela Bhatti APRN, [employer] - 06/19/2022 8:20 AM CDT TRAUMA TERTIARY EXAM NOTE LOS: 1 day Patient seen on 06/19/2022 at 8:20 AM. CC/HPI: Accidental fall from bed INTERVAL HISTORY: Resting in bed at visit. C/o numbness and tingling to bilateral hands, improved from yesterday. He stated neck pain was tolerable, hyperesthesias more bothersome. Gabapentin initiatedyesterday. He denied SOB, CP, dizziness. Denied hx of withdrawals. REVIEW OF SYSTEMS: Last 24 hours; Denies fever, chills, abdominal pain or distention, nausea/vomiting, diarrhea, hematochezia or melena, chest pain, and shortness of breath, numbness or parasthesis, headache, vision changes or dizziness. A comprehensive review of systems was negative except for items noted in the interval history. PAST MEDICAL HISTORY: No Change AUDIT ASSOCIATE MEDICATIONS: Essential AUDIT ASSOCIATE meds restarted CURRENT MEDS: Current Facility-Administered Medications: saline FLUSH syringe 10 mL, 10 mL, Intravenous, Q8H saline FLUSH syringe 10 mL, 10 mL, Intravenous, PRN acetaminophen (TYLENOL) tablet 1,000 mg, 1,000 mg, oral, TID OR acetaminophen (TYLENOL) rectal suppository 650 mg, 650 mg, Rectal, TID amiodarone (CORDARONE) tablet 200 mg, 200 mg, oral, DAILY atorvastatin (LIPITOR) tablet 80 mg, 80 mg, oral, DAILY cholecalciferol (vitamin D3) 25 mcg (1000 unit) tablet 25 mcg, 25 mcg, oral, DAILY cyanocobalamin tablet 1,000 mcg, 1,000 mcg, oral, DAILY fluticasone propionate (FLONASE) nasal spray 1 spray, 1 spray, Each Nostril, DAILY folic acid (FOLVITE) tablet 1 mg, 1 mg, oral, DAILY gabapentin (NEURONTIN) capsule 100 mg, 100 mg, oral, TID lidocaine (LMX-4) topical cream 1 Application, 1 Application, topical, PRN lidocaine / sod bicarb (buffered lidocaine) syringe for IV starts 0.1-0.3 mL, 0.1-0.3 mL, Intradermal, PRN lidocaine 1% (PF) (XYLOCAINE) injection 0.1-0.3 mL, 0.1-0.3 mL, Intradermal, PRN lidocaine 4% (Salonpas) adhesive patch, medicated 1-3 patch, 1-3 patch, Transdermal, DAILY loratadine (CLARITIN) tablet 10 mg, 10 mg, oral, DAILY lubricant drops ophthalmic (EYE) solution 1-2 drop, 1-2 drop, Each Eye, TID PRN magnesium hydroxide (MILK OF MAGNESIA) suspension 15 mL, 15 mL, oral, DAILY PRN MAGNESIUM REPLACEMENT INTRAVENOUS - NOT FOR DOCUMENTATION PURPOSES, , Intravenous, PER PROTOCOL methocarbamoL (ROBAXIN) tablet 250-500 mg, 250-500 mg, oral, Q6H PRN metoprolol tartrate (LOPRESSOR) tablet 50 mg, 50 mg, oral, Twice Daily multivitamin (CERTAVITE) tablet 1 tablet, 1 tablet, oral, DAILY ondansetron (ZOFRAN) disintegrating tablet 4 mg, 4 mg, oral, Q8H PRN OR ondansetron (ZOFRAN) injection 4 mg, 4 mg, Intravenous, Q8H PRN oxyCODONE (immediate release) (ROXICODONE) tablet 2.5-5 mg, 2.5-5 mg, oral, Q4H PRN pantoprazole (PROTONIX) delayed release tablet 40 mg, 40 mg, oral, DAILY POTASSIUM REPLACEMENT INTRAVENOUS - NOT FOR DOCUMENTATION PURPOSES, , Intravenous, PER PROTOCOL POTASSIUM REPLACEMENT ORAL - NOT FOR DOCUMENTATION PURPOSES, , oral, PER PROTOCOL predniSONE (DELTASONE) tablet 10 mg, 10 mg, oral, DAILY prochlorperazine (COMPAZINE) injection 5 mg, 5 mg, Intravenous, Q6H PRN senna-docusate (SENNA-S) tablet 1 tablet, 1 tablet, oral, Twice Daily thiamine (VITAMIN B1) tablet 100 mg, 100 mg, oral, DAILY OR thiamine (B-1) injection 100 mg, 100mg, Intravenous, DAILY TERTIARY EXAMINATION: Temp (24hrs), Av.3 ??F (36.8 ??C), Min:98 ??F (36.7 ??C), Max:98.6 ??F (37 ??C) BP 124/75 Pulse 62 Temp 98.2 ??F (36.8 ??C) Resp 18 Ht 5' 2 (1.575 m) Wt 54 kg (119 lb) SpO2 93% BMI 21.77 kg/m?? Patient Vitals for the past 72 hrs: Weight 06/18/22 1617 54 kg (119 lb) Glascow Coma Scale: Eyes Open: 4 - Eyes open spontaneously Best Verbal Response: 5 -Oriented Best Motor Response: 6 -Obeys commands Total Score: 15 Neurologic: alert, Cranial Nerves - 2-12 normal, Sensation intact, Orientation: oriented x 4 HEENT Eyes: Normal lids and conjunctivae - PERRLA - EOMs intact, Pupils: Right - reactive with size 3 mm,Left - reactive with size 3 mm Head: normocephalic, atraumatic. Scalp abrasion Ears: externally normal Nose/sinus: no deformity Throat/Oropharynx: oral mucosa and pharynx normal, moist mucous membranes Neck: C-collar in place, trachea midline Chest: Normal diaphramatic movement and symmetrical Pulmonary: lungs clear to auscultation, effort normal Cardiovascular: Heart: Normal, S1, S2, regular rhythm, Murmurs: none Peripheral vascular: Radial: bilateral - symetrical, 2-3 Dorsalis Pedis: Bilateral - symmetrical, 2-3 Gastrointestinal: Abdominal: soft, nontender Rectal: hemorrhoids Genitourinary: Wnl Musculoskeletal: Back: Lumbar spine non tender. Thoracic spine nontender, with no ecchymosis Extremities: QUEEN, no gross deformities, age-appropriate strength and ROM. DP and PT pulses palpableto LLE and RLE Pelvic Stability: Stable, nontender Integumentary: intact, warm, dry Wound Simple Face;Forehead (Active) First Observed/Origin Date/First Observed/Origin Time: 06/18/22 1302 Location: Face;Forehead Wound Observance : Prior to Admission Intake/Output Summary (Last 24 hours) at 06/19/2022 0820 Last data filed at 06/19/2022 0113 Gross per 24 hour Intake -- Output 550 ml Net -550 ml RECENT LABS: Recent Labs 06/19/22 0451 WBC 9.2 RBC 3.53* HEMOGLOBIN 12.4* HEMATOCRIT 37.9* MCV 107* MCH 35* RDW 14.2 PLATELETCT 191 Recent Labs 06/19/22 0451 SODIUM 140 POTASSIUM 4.4 CHLORIDE 107 CARBONDIOXI 22 ANIONGAP 11.0 GLUCOSE 98 BUNUREANRO 19 CREATININE 1.19* CALCIUMSERUM 9.2 ESTGFRMDRD >60.00 IMAGING: MRI SPINE CERVICAL W/O CON Final Result IMPRESSION: 1. MR confirmation of segmental intramedullary T2 prolongation from C3-4 to C6, which could reflect cord edema from high-grade degenerative central canal stenosis or posttraumatic cord contusion. No hemorrhagic component is identified. 2. C5 fracture is better visualized on the prior CT exam. 3. Mild prevertebral edema from lower C2 to the cervicothoracic junction. Additional dorsal interspinous ligamentous sprain at the mid cervical spine. 4. Grade 1 anterolisthesis at C2-C3 as well as retrolisthesis from C3-4 to C4-5. 5. Multilevel cervical spondylosis resulting in severe C4-5 and C5-C6 central canal stenosis. Effacement of intrathecal CSF with active cord compression and ventral cord flattening at both interspace levels. Additional moderate C6-7 and mild to moderate C3-4 central canal stenosis, without cord compression at those two levels. 6. Severe osseous neural foraminal stenosis at C4-5 bilaterally, right C5-6 and bilaterally C6-7. Lesser neural foraminal stenosis elsewhere as described. REPORT SIGNED BY Blane Mendoza M.D. XR SPINE CERVICAL 2 OR 3 VIEW Final Result IMPRESSION: Three view cervical spine series. C5 fractures are not well delineated radiographically. Stable grade 1 anterolisthesis at C2-3 and retrolisthesis from C3-4 to C5-6. Ankylosing across the C3-4 interspace, unchanged. Levoconvex upper thoracic scoliosis, stable. There is no abnormal prevertebral edema. Multilevel cervical spondylosis, unchanged. REPORT SIGNED BY Blane Mendoza M.D. XR WRIST 3 VW BILAT Final Result IMPRESSION: 1. Extensive bilateral degenerative changes. 2. Irregularity of the midshaft of the left first metacarpal bone which is felt to most likely represent remote fracture, however it should lateral view is not obtained and would recommend correlation for pain over this area. REPORT SIGNED BY DR. JOSE LUIS MAHER XRAY ELBOW RIGHT Final Result IMPRESSION: 1. Advanced degenerative changes of the elbow. No fracture or dislocation. 2. No effusion. 3. Vascular calcifications. REPORT SIGNED BY DR. Carlos Rojas XR HAND 3 VW BILAT Final Result IMPRESSION: 1. Extensive bilateral degenerative changes. 2. Irregularity of the midshaft of the left first metacarpal bone which is felt to most likely represent remote fracture, however it should lateral view is not obtained and would recommend correlation for pain over this area. REPORT SIGNED BY DR. JOSE LUIS MAHER XRAY CHEST PA Final Result IMPRESSION: 1. Right lung nodules better visualized on recent CT of the neck. Nonemergent CT of the chest again identified. 2. No pneumothorax or effusion. REPORT SIGNED BY DR. Carlos Rojas CT ANGIO NECK Final Result Impression: 1. C5 fracture involving predominantly the spinous process with minimal involvement of the right lamina unchanged in alignment compared to the outside cervical spine CT. 2. No evidence of traumatic injury to the carotid or vertebral arteries. 3. Atherosclerotic disease resulting in 56% stenosis of the proximal right internal carotid artery as well as mild stenosis along the V2 segment of the left vertebral artery. 4. Multiple rounded subpleural nodules in the visualized right upper lobe of the lung measuring up to 6 mm in size. These are indeterminate. Dedicated CT of the chest is suggested for further assessment. INCIDENTAL FINDING: This report includes a nonurgent finding for which imaging, clinical, or laboratory study follow-up is recommended. Report signed by Rito Alas CT OUTSIDE SPINE STUDY Final Result CT OUTSIDE HEAD STUDY Final Result CT OUTSIDE HEAD STUDY Final Result ETOH SCREENING: No results found for this visit on 06/18/22. No data recorded Do you drink alcohol? yes AUDIT-C Questionnaire 1. How often do you have a drink containing alcohol? 4 or more times a week = 4 points 2. How many standard drinks containing alcohol do you have on a typical day? 3 or 4 = 1 point 3. How often do you have six or more drinks on one occasion? Weekly = 3 points Total: 8 (Positive Screen: Women >= 3, Men >= 4 (Note: if all points come from question 1 then this is considered a NEG screen) Further intervention refused Acute Stress Disorder screening using [id number]-5 Since the incident have you: 1. Had nightmares about the event(s) or thoughts about the event(s) when you did not want to? no 2. Tried hard not to think about the event(s) or went out of your way to avoid situations that reminded you of the event(s)? no 3. Been constantly on guard, watchful, or easily startled? no 4. Olyphant numb or detached from people, activities, or your surroundings? no 5. Olyphant guilty or unable to stop blaming yourself or others for the event(s) or any problems the events may have caused? no (Positive screening: YES to any question(s), recommend psychology consult. Negative screening: NO to all questions) Education was provided. Mental Health Services consult negative screen ADDITIONAL COMMENTS: I reviewed the patient's new clinical labs and imaging test results as includedin this note. I discussed the patient's care with bedside RN, Pharmacy, Social Work, charge nurse. Slick seen this patient and discussed my findings and exam with Dr. Saini. The assessment and plan is based on our joint decision making. ASSESSMENT/PLAN: Sara Barillas is a chronically ill 72 year-old male with past medical history of congestive heart failure, CAD with prior STEMI status post CABG x2, hypertension and alcohol abuse who presented to [facility] ED following fall out of bed. Initially seen at [place] where imaging revealed a [id number] fx. Active Hospital Problems Accidental fall from bed - Mechanical in etiology. No further work-up indicated. - Tertiary exam completed, no additional injuries noted - Monitor for post concussive symptoms - Therapies Closed Head Injury CT head negative for intracranial bleed. - Suspect falls are secondary to alcohol abuse, though monitored on telemetry for 24h d/t significant cardiac history- No events. - Monitor for post-concussive syndrome. - Symptomatic control. C5 pedicle fracture (HCC) 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, init (HCC) - Neurosurgery consulted - MR with multilevel cervical spondylosis with severe C4-5 and C5-6 central canal stenosis - Recommend non operative management for C5 fx , although will need cervical decompression at some point (this hospitalization versus outpatient elective once fully healed from C5 fx - timing TBD pending inpatient recovey) - [place] X 3 months - Uprights completed, cleared to mobilize - Therapies Rib Fractures, Chronic Patient endorses prior fall where he knows he broke some ribs denies any chest wall tenderness currently. - Rib fracture protocol, pulmonary toilet - Encourage deep breathing, IS and OOB as tolerated. - Therapies and multimodal pain regimen - Patient maintaining O2 sats greater than 90% on room air. ETOH abuse Patient endorses daily drinking, 1-3 beers, 2 shots of whiskey. He denies LADC consult. - CIWA. - Vitamins. Acute Pain due to Trauma Multimodal pain regimen: Acetaminophen, Robaxin, Lidoderm patches, Oxycodone, IV Dilaudid for breakthrough only. - Initiated Gabapentin at 100 mg TID for hyperesthesias. ?? Past Medical History: GERD - continue AUDIT ASSOCIATE PPI Osteoporosis - continue AUDIT ASSOCIATE Vitamins DVT/PE - holding AUDIT ASSOCIATE Eliquis STEMI with CABG x2 - denies chest pain, continue BB, Statin, Amiodarone, holding ASA for now Lines: PIV Fluids/Electrolytes/Nutrition: Regular Ulcer Prophylaxis: PPI Bowel Medications: Senna-S LBM: No data recorded Urban: No DVT Prophylaxis: Lovenox, Mechanical, Mobilize Restraints: Not indicated Wounds/Skin Care: Skin surveillance, frequent turns, protective measures, OOB, mobilize as able Antibiotics: None Family Communication: Patient denied need for Trauma to call update to family. All questions were answered to best of my ability. No concerns at that time. Follow up tertiary exam: Not required, patient responsive and able to participate in clinical exam Disposition: Criteria for Discharge: Therapies and pain control Post Hospital Plan: Per therapy recs 30 minutes total time spent with customer, more than 50% of time spent counseling and/or coordination of care. Kaela Bhatti APRN, CNP Trauma and Acute Care Surgery Stephany Villanueva OT - 06/19/2022 7:49 AM CDT Occupational Therapy OT orders acknowledged for d/c pending evaluation, however per nursing notes pt remains on bedrest until cleared by neurosurgery. Will attempt to see pt when cleared for activity. Emi Babb RN - 06/19/2022 5:08 AM CDT Med-Surg Care Progression Note Type: Shift to shift summary Length of stay: 1 days Code Status: Full Code Primary Problem: Fall out of bed, +etoh. C5 pedicle fx, central cord syndrome F- Feeding & Fluids: NPO, previous N/V, relieved with compazine and zofran given on previous shift. Gave another dose oral zofran to prevent further nausea A- Analgesic & Anticoagulation: Comfort Goal: Numeric, Verbal, Faces: 2 Analgesic Hypersensitivity to bilateral hands/wrists. Given scheduled tylenol, PRN robaxin and oxycodone with relief. Anticoagulation/DVT prevention & plan SCDs S- Skin: Total Luther Score: 15: Maintaining skin integrity/pressure prevention. Abrasions to forehead. Noted prolapse (?) to anus. FYI to trauma sent. Mild bleeding. Mepilex applied under aspen T- Telemetry: Rhythm: Sinus Rhythm Ectopy: None On tele, no calls this shift E- Emotional & Neuro: Participating in cares Neuro Alert and Oriented. Hypersensitivity to bilateral wrists and fingers. N/T to feet. All new since fall per patient. MRI completed. Neuros q2h. CIWA 0-1. R- Respiratory: On room air at baseline, placed on 2L overnight while sleeping H- Head OUT of Bed & Activity: Activate Fall Alert? (Enter 1 or 0): 1 Continued flat bedrest until neurosurg clears. MRI and uprights completed. Able to turn and reposition independently. Skamokawa collar in place. Therapies consult today U- Urologic/bowel: No data recorded Straight cath x1, pt unable to void. No BM, possible rectal prolapse vs hemmrhoids G- Glycemic Control: Accuchecks every 6 hours while NPO T- Treatment: CIWA, therapies, pain control I- Invasive Devices: PIV D- Discharge: TBD T Connie Collins RN - 06/18/2022 6:38 PM CDT Med-Surg Care Progression Note Type: Shift to shift summary Length of stay: 0 days Code Status: Full Code Primary Problem: Fall out of bed, +etoh. C5 pedicle fx, central cord syndrome F- Feeding & Fluids: NPO, nausea with vomiting. Gave zofran A- Analgesic & Anticoagulation: Analgesic Hypersensitivity to bilateral hands/wrists Anticoagulation/DVT prevention & plan SCDs S- Skin: Total Luther Score: 15: Maintaining skin integrity/pressure prevention. Abrasions to forehead. Turn and repo every 2 hours. T- Telemetry: Rhythm: Sinus Rhythm Ectopy: None On tele, no calls this shift E- Emotional & Neuro: Participating in cares Neuro Alert and Oriented. Hypersensitivity to bilateral wrists and fingers. N/T to feet. All new since fall per patient. MRI ordered. Neuros q2h R- Respiratory: On room air H- Head OUT of Bed & Activity: Activate Fall Alert? (Enter 1 or 0): 1 Flat bedrest until uprights are read. Paged neurosurg that xray is done. Skamokawa collar in place. Turn and repo every 2 hours. Therapies to see tomorrow. U- Urologic/bowel: No data recorded No void since arriving to floor. Pt stated he voided while in the ED. Has a rectal prolapse vs hemmroids - trauma notified G- Glycemic Control: Accuchecks every 6 hours while NPO T- Treatment: CIWA, therapies, pain control I- Invasive Devices: PIV D- Discharge: TBD Linh Escobedo - 06/18/2022 4:50 PM CDT [facility] Rx: RADHA Bowens-C/Skamokawa collar Dx: C5 lamina fracture with associated burning pain to bilateral upper extremities Pt was seen in his [facility] room 627-01 this evening for fitting of an Skam[place]awa cervical collar. At arrival to room, pt supine in bed w/Amira collar in place. Pt c/o severe pain in hands & arms. Using C-spine precautions, Amira collar was removed, discarded & replaced w/Skamokawa collar. Pt tolerated well. Did not provide education at this time due to pending Neurosurgery consult. Replacement liner set, wear/care guide & contact info left bedside. Will follow for Neurosurgeryrec. Please call w/any questions or concerns. Thank you! Linh Escobedo Water Safety Instructor, Board Eligible Taxi Dancer. Gail Nguyen RN - 06/18/2022 4:18 PM CDT P. Admission A. Condition on Admit: alert. Patient/Family Concerns: Patient expressed concern about pain relief and diagnosis. I. Initial Interventions included: notified MD of patient arrival. Orientation to Unit: Patient oriented to how to call for help, name of assigned regular senior care provider, PatientInformation booklet, Handwashing, Respiratory Hygiene, How to Call a Response Team, initial physician orders, hourly rounding procedures, belongings checklist, unit and plan of care. R. Patient expressed understanding of information.. Melo Foley PA-C - 06/18/2022 3:31 PM CDT TRAUMA PROBLEM LIST/SUMMARY Admit Date: 06/18/2022 No past medical history on file. INJURIES Principal Problem: Accidental fall from bed Active Problems: C5 pedicle fracture (HCC) 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, init (HCC) S/P CABG x 2 COPD (chronic obstructive pulmonary disease) ([facility]) PROCEDURES AND EVENTS 06/18: Admit [facility] nsgy consult Med rec done - holding eliquis Skamokawa collar MRI: 1. MR confirmation of segmental intramedullary T2 prolongation from C3-4 to C6, which could reflect cord edema from high-grade degenerative central canal stenosis or posttraumatic cord contusion.No hemorrhagic component is identified. 3. Mild prevertebral edema from lower C2 to the cervicothoracic junction. Additional dorsal interspinous ligamentous sprain at the mid cervical spine. 4. Grade 1 anterolisthesis at C2-C3 as well as retrolisthesis from C3-4 to C4-5. 5. Multilevel cervical spondylosis resulting in severe C4-5 and C5-C6 central canal stenosis. Effacement of intrathecal CSF with active cord compression and ventral cord flattening at both interspace levels. Additional moderate C6-7 and mild to moderate C3-4 central canal stenosis, without cord compression at those two levels. 6. Severe osseous neural foraminal stenosis at C4-5 bilaterally, right C5-6 and bilaterally C6-7. Lesser neural foraminal stenosis elsewhere as described. NPO midnight 06/19: 06/21 Physical and occupational therapy recommending 09/06 cares 06/22 Family not answering 06/23 UC growing staph Keflex started (5 days) Tertiary Exam: 06/19 Screening Dates: AUDIT-C: 06/19 ASD: 06/19 Sutures & Carolyn: Incidental Findings: Resolved Problems: Discharge follow up plans: documented in this encounter H&P Notes Judith Guerrero PA-C - 06/18/2022 1:33 PM CDT Images from the original note were not included. TRAUMA ADMISSION HISTORY AND PHYSICAL Patient Name: Sara Barillas Address: No address on file. Age:72 y.o. Sex: male Admission Date/Time: 06/18/2022 12:45 PM Admitting provider: Brenda Saini MD Hospital Attending Physician: Brenda Fair MD Primary Care Provider: Md Srinivasan Informant:patient Patient seen on 06/18/2022 at 1315. Trauma Activation: Trauma Evaluation: Time Consulted 1300 Arrival/Pre-Notification: EMS CHIEF COMPLAINT: fall HPI: Sara Barillas is a chronically ill 72 year-old male with past medical history of congestiveheart failure, CAD with prior STEMI status post CABG x2, hypertension and alcohol abuse who [facility] ED following fall out of bed this morning. He was unable to get up, his son had tocome over and assist . He presented to [facility] where imaging there were positive forC5 lamina fracture with associated burning pain to bilateral upper extremities. CT head negative at OSH. He is currently endorsing pain to neck and upper extremities>lower, better with pain medication and rest. He denies pain to chest wall, abdomen, pelvis and lower extremitites. The patient deniesany recent illness, nausea, shortness of breath, chest pain or headaches. Of note, he does state that he fell 3 weeks ago while intoxicated and did not present to hospital for work up at that time, though he states I've broken ribs before and I know I broke ribs, but they don't hurt anymore. He is on 2 LPM nasal cannula upon evaluation sating >94%. He is not on home oxygen. REVIEW OF SYSTEMS A comprehensive review of systems was negative except for items noted in the HPI/Subjective. Last Oral Intake: Unknown Last Tetanus: Unknown PAST MEDICAL HISTORY: Alcohol abuse Arteriosclerosis of coronary artery Atrial fibrillation CHF CKD GERD Heart attack x2 Hypertension Rheumatoid arteritis PAST SURGICAL HISTORY: CABG with 2 stents CABG Total knee replacement MEDICATIONS: Aspirin 325 mg tablet Atorvastatin 80 mg tablet Fluticasone propionate 50 mcg/actuation nasal spray, suspension Isosorbide mononitrate 30 mg tablet Lisinopril 10 mg Hyrochlorothiazide 12.5 mg tablet Loratadine (Allerclear) 10 mg tablet Metoprolol tartrate (Lopressor) 50 mg tablet Nitroglycerine 0.4 mg sublingual tablet Pantoprazole 20 mg tablet Amiodarone Apixaban 5 mg tablet ALLERGIES: Patient has no known allergies. FAMILY HISTORY: He denies pertinent past family history to me. SOCIAL HISTORY: He lives at home with his who is unable to drive to the city. Has a son who lives next door and a daughter Lila (POC). He drinks alcohol daily, denies withdrawal seizures for me. He smokes marijuana daily. He stopped smoking tobacco when he had his second heart attack. PHYSICAL EXAM: BP (!) 155/88 Pulse 83 Temp 98.4 ??F (36.9 ??C) Resp 16 SpO2 92% Constitutional: Pleasant, chronically ill 72 yo male seen resting in bed, no acute distress. Laying flat in bed. Neurologic: alert and oriented to person, place, situation and time, GCS 15, Cranial Nerves 2-12 grossly intact, Speech: normal, Plantar-Dorsiflexion: Intact, sensation intact to light touch in all extremities HEENT: Head: Superficial abrasion to top of scalp as below, Eyes: normal lids and conjuctivae - PER - EOMI Face: Symmetrical Neck: cervical collar in place, tender to neck with associated BUE paresthesias Chest: symmetrical, nontender chest wall to palpation Pulmonary: effort normal on room air, lung sounds clear to auscultation bilaterally Cardiovascular: Heart: regular rhythm, Rate: normal, Peripheral Vascular: dorsalis pedis/radial 2+ Gastrointestinal: Abdominal: soft, nontender to palpation, nondistended, Bowel sounds: active Musculoskeletal: RUE: no deformities, full ROM not assessed to do chronic arthritis, strength +5/5, nontender throughout to palpation. LUE: no deformities, full ROM, strength +5/5, nontender throughout to palpation. Pelvis: nontender bilaterally. RLE: no deformities, full ROM, strength +5/5, nontender throughout to palpation. LLE: no deformities, full ROM, strength +5/5, nontender throughout to palpation. Back: Nontender thoracic and lumbar spines to palpation Integumentary: warm and dry Psych: appropriate mood and affect Laboratory Data: No results found for this or any previous visit (from the past 24 hour(s)). Additional Comments: I reviewed the patient's new clinical labs and imaging test results as includedin this note. I discussed the patient's care with bedside RN, Dr Fair. I have seen this patient and discussed my findings and exam with Dr. Saini. The assessment and plan is based on our joint decision making. Imaging: CT OUTSIDE SPINE STUDY Final Result CT OUTSIDE HEAD STUDY Final Result CT OUTSIDE HEAD STUDY Final Result XRAY ELBOW RIGHT (Results Pending) XRAY CHEST PA (Results Pending) XR WRIST 3 VW BILAT (Results Pending) XR HAND 3 VW BILAT (Results Pending) CT ANGIO NECK (Results Pending) MRI SPINE CERVICAL W/O CON (Results Pending) ASSESSMENT/DIFFERENTIAL DIAGNOSIS: Principal Problem: Accidental fall from bed Active Problems: C5 pedicle fracture ([facility]) 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, init (HCC) S/P CABG x 2 COPD (chronic obstructive pulmonary disease) ([facility]) Wound Simple Face;Forehead (Active) First Observed/Origin Date/First Observed/Origin Time: 06/18/22 1302 Location: Face;Forehead Wound Observance : Prior to Admission PLAN Sara Barillas is a chronically ill 72 year-old male with past medical history of congestive heart failure, CAD with prior STEMI status post CABG x2, hypertension and alcohol abuse who presents to [facility] ED following fall out of bed this morning. He was unable to get up, his son had to comeover and assist . He presented to [facility] where imaging there were positive for C5 lamina fracture with associated burning pain to bilateral upper extremities. CT head negative at OSH. Of note[facility] to assess full details of past medical history.He will be admitted to trauma service with neurosurgical consultation. Falls Closed Head Injury CT head negative for intracranial bleed. - Suspect falls are secondary to alcohol abuse, though will monitor on telemetry for 24h with significant cardiac history. - Monitor for post-concussive syndrome. - Symptomatic control. - Follow-up with Dental Patient Coordinator at [place] for continued management. C5 Fracture Secondary to mechanical fall from from bed. CTa pending to assess for BCVI. Patient remains neurovascularly intact, . - Neurosurgery consulted, appreciate recommendations. - C-spine precautions. - Skamokawa collar at all times. - MRI cervical spine pending. - PT/OT. Acute Pain due to Trauma Multimodal pain regimen: Acetaminophen, Robaxin, Lidoderm patches, Oxycodone, IV Dilaudid for breakthrough only. - Initiated Gabapentin at 100 mg TID for hyperesthesias. Rib Fractures, Chronic Patient endorses prior fall where he knows he broke some ribs but is denying any chest wall tenderness currently. - Chest x-ray pending, lung sounds clear b/l. - Rib Fracture Protocol: Encourage deep breathing exercises, IS, mobilization. - Spo2 goal >88%. - Remains stable 1-2 LPM via nasal cannula. - Wean oxygen as able. Past Medical History: GERD - continue AUDIT ASSOCIATE PPI Osteoporosis - continue AUDIT ASSOCIATE Vitamins H/O prior DVT/PE - holding AUDIT ASSOCIATE Eliquis H/O prior STEMI with CABG x2 - denies chest pain, continue BB, Statin, Amiodarone, holding ASA for now Alcohol Abuse Patient endorses daily drinking, 1-3 beers, 2 shots of whiskey. He denies LADC consult. - CIWA. - Vitamins. Surgical Optimization: Based on history and physical the patient is not an appropriate risk for procedures in the OR at this time. The following are pending: Pre-op Clearance Clearance from Neurosurgery, ECHO history, EKG from OSH with sinus rhythm, no obvious ST elevation DISPOSITION: Anticipated date of discharge 06/22/22. Criteria for discharge is neurosurgical clearance, therapy evaluation, pain control on PO regimen, tolerating PO. IP - Anticipated LOS >2Midnights due to acuity of clinical presentation requiring inpatient levelof care Urban: NA DVT Prophylaxis: mechanical Ulcer Prophylaxis: None indicated Restraints: Not indicated Sedation: none Warming Techniques: passive Family Conference: Patient's daughter Lila. All questions were answered to best of my ability. No concerns at that time. Update Called To: I contacted Dr. Conway at [facility] and updated him on patient's safe arrival at our facility and our plan of care. I thanked them for the referral. Specialty Services Consult(s) Neurosurgery Non-Emergent consult Time called: 1300. Discuss plan with NSG 45 minutes total time spent with customer, more than 50% of time spent counseling and/or coordination of care. Judith Guerrero PA-C Trauma & Acute Care [place] documented in this encounter Consult Notes Missael Lorenzana - 06/19/2022 4:35 PM CDT Acute Physical Therapy Evaluation Patient Name: Sara Barillas Today's Date: 06/19/2022 Admission Date: 06/18/2022 Precautions Precautions Devices/Equipment Required: Skam[place]awa Collar Precautions: Maintain head and neck in neutral Precautions Comments: Skamokawa at all times Assessment PT Assessment/Recommendations Assessment: Pt presents with a fall out of bed resulting in a C5 pedicle fx, central cord syndrome, and bilat parathesias in wrist and hands as well as numbness/tingling in feet. Pt is able to completebed mobility with mod I. Requires SBA-CGA for ambulation and CGA for stairs. Pt unsteady which increases as he fatigues with some lightheadedness reported on stairs. 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 If pt were to d/c todaywould require TCU d/t previously mentioned limitations, falls risk, and impulsivity and safety concer ns. If pt improves may d/c home with 24/7 supervision. Pt would benefit from continued skilled therapy to progress strength, balance, and endurance. PT to follow and update. Strengths: Prior level of function, Good family support, Patient motivation, Patient cooperation, Ambulatory, Good strength Limitations/Discharge Barriers: Complicated medical history, Pain, Current medical status, Inabilityto safely negotiate stairs, Decreased activity tolerance Endurance: Participates 30+ min of therapy session Prognosis: Fair Recommendations for Nursing: Mobilize assist of 1 with gait belt, Up to chair 2- 3x/day, Ambulate 2-3x/day, Use of assistive device with mobility Type of Assistive Device: FWW Recommended Discharge Disposition: Transitional Care Unit (home with 09/06 if pt improves) Recommended Continued PT Upon Discharge: Home health PT Equipment Recommended for Home: Rolling walker, Shower chair Equipment Issued: None Plan PT Frequency: 1x/day, 3-5 days a week Interventions: Gait training, Therapeutic exercise, Therapeutic activities, Neuromuscular re-education Encounter Details General Diagnosis: C5 lamina fracture with associated burning pain to bilateral upper extremities Admission/Diagnosis Details: Presented to OSH for evaluation after a fall. Per chart review, patientfell out of bed last evening around 11:00 pm 06/17 while drinking. He noted he could not get up thereafter. Presented to OSH in which HCT was negative and pt discharged home. He then re-presented back [facility] ED that morning c/o bilat arm/hand pain: repeat HCT neg, C spine revealed right L5 lamina fx. [facility] and neurosurgery consulted for further evaluation. Pertinent Past Medical History: alcohol abuse, CHF, atrial fibrillation on apixiaban, CKD and hypertension Patient Seen In: Room Family/Caregiver Present: No Subjective Comments: Pt is pleasant and agreeable to therapy. Very talkative. Subjective/Social History Home Setup Type of Home: Apartment Lives With: Spouse Home Layout: Two level Home Entry: Stairs to enter without rails Number of stairs: 3 Stairs within Home: Stairs with rails Rails: Unilateral Number of stairs: 5 Comment: Pt reports living with spouse in apartment which [facility] Prior Level of Functional Mobility Independent with: All Mobility Needs Assistance with: ADLs, IADLs Mobility Equipment Used: None DME owned: Rolling walker, Tub bench History of falls: yes, less than 1 month ago Comment: pt does not use AD at baseline but has one from previous injuries Pain Patient complained of 7/10 pain in hands and wrists. Objective Cognitive Status Orientation Level: Oriented to person, Oriented to time, Oriented to situation (unable to remember name of hospital) Arousal/Alertness: Appropriate responses to stimuli Following Commands: Follows multistep commands Safety Judgment: Verbal cues needed for safety Motor Planning/Processing: Cues to initiate tasks Cognition Comments: Pt does not seem overtly confused but not oriented x4 and requires multiple cuesfor coordination tasks. Pt requires frequent redirection to stay on task. ROM RLE: WFL LLE: WFL Comments: LEs WFL, UEs limited in overhead range at baseline to about 70 degrees on R side and 90 degrees on L side, his dominant side. LE Strength UE Strength: RUE strength assessed, LUE strength assessed (custom shoe designer and maker very weak and wrist flex/ext also significantly impaired; symmetrical) Overall RLE Strength: Impaired due to weakness, Impaired due to recent trauma RLE MMT: R hip flexion, R knee flexion, R knee extension, R ankle dorsiflexion R Hip Flexion: 4-/5 R Knee Flexion: 4/5 R Knee Extension: 4+/5 R Ankle Dorsiflexion: 4+/5 Overall LLE Strength: Impaired due to recent trauma, Impaired due to weakness LLE MMT: L hip flexion, L knee flexion, L knee extension, L ankle dorsiflexion L Hip Flexion: 4-/5 L Knee Flexion: 3+/5 L Knee Extension: 5/5 L Ankle Dorsiflexion: 4+/5 UE Strength Overall RUE Strength: Impaired due to pain, Impaired due to weakness, Impaired due to recent trauma,Impaired due to chronic condition (arthritis) RUE MMT: R shoulder flexion, R shoulder extension, R shoulder ABduction, R shoulder ADuction, R elbow flexion, R elbow extension, R wrist flexion, R wrist extension, R custom shoe designer and maker strength R Shoulder Flexion: 4-/5 R Shoulder Extension: 4-/5 R Shoulder ABduction: 3+/5 R Shoulder ADduction: 4/5 R Elbow Flexion: 4/5 R Elbow Extension: 4/5 R Wrist Flexion: 3+/5 R Wrist Extension: 3+/5 R Water Use Inspector Strength: weak. able to hold a pen but not much more Overall LUE Strength: Impaired due to pain, Impaired due to weakness, Impaired due to recent trauma,Impaired due to chronic condition (arthritis) LUE MMT: L shoulder flexion, L shoulder extension, L shoulder ABduction, L shoulder ADduction, L elbow flexion, L elbow extension, L wrist flexion, L wrist extension, L custom shoe designer and maker strength L Shoulder Flexion: 4-/5 L Shoulder Extension: 4-/5 L Shoulder ABduction: 3+/5 L Shoulder ADduction: 4/5 L Elbow Flexion: 4/5 L Elbow Extension: 4/5 L Wrist Flexion: 3+/5 L Wrist Extension: 3+/5 L Water Use Inspector Strength: weak. able to hold a pen but not much more Tone RLE Tone: Within Functional Limits LLE Tone: Within Functional Limits Clonus: Absent RLE, Absent LLE Sensation Light Touch: Intact in the RLE, Intact in the LLE Proprioception: No apparent deficits Sensation Comments: Pt reports tingling sensation in hands and soles of feet but still able to discern light touch. Coordination Heel to lopez: Intact in the RLE, Intact in the LLE Alternating toe taps: Not tested Finger to nose: Not tested (unable as pt could not complete the motion d/t impaired UE ROM) Comment: alternating supination/pronation normal but pt reports pain Patient is functioning as follows: Bed Mobility Roll Right: Modified independent Roll Left: Modified independent Supine to Sit: Modified independent Sit to Supine: Modified independent Dangling: Modified independent Bridging/Repositioning: Modified independent Scooting: Modified independent Setup/Equipment: Bed rail, HOB elevated Cueing Provided: Verbal Bed Mobility Comments: Pt mobilizes quickly but impulsively under own power with no additional effort. Educated on log rolling and maintaining cervical precautions during mobility. Transfers Transfer Type: Sit to/from Stand, Stand Pivot Sit to/from Stand Level of Assist: Standby assist Assistive Device: Rolling walker Comments: Pt stands easily but impulsively under his own power with max cueing needed for safe hand placement and walker management with minimal carryover. Stand Pivot Stand Pivot Level of Assistance: Standby assist Stand Pivot Assistive Device: Rolling walker Comments: Pt stands and pivots easily but impulsively under his own power with max cueing needed forsafe hand placement and walker management with minimal carryover. Ambulation Ambulation Assessment: Bout 1 Bout 1 Surface: Level anthony Complexity: Forward stepping Distance (ft): 300 Assistive Device: Rolling walker Level of Assist: Standby Assist, Contact guard/steadying assist Quality of Gait: Pt walks with a R antalgic gait d/t tingling in feet. He walks significantly slowerthan baseline with distinct foward lean. Max cues for staying close to walker and upright posture result in brief improvements. Pt complains of pain in low back which pt reports is from a herniated disc. Pt requires SBA-CGA as he faitgues and is slightly unsteady. Stairs/Curb Negotiation Stairs/Curb Negotiation: Bout 1 Bout 1 Method: Ambulation Number of Stairs: 5 UE Support: Unilateral Rail Level of Assist: Contact guard/steadying assist Pattern: Step to Comments: Pt reports increased back pain and some lightheadedness that quickly resolved. Pt requiresincreased time and effort as well as CGA to complete stairs. He is unsteady. [facility] AM-PAC 6-Clicks Turning over in bed (including adjusting bed clothes, sheets, and blankets): Modified independent/independent Sitting down and standing up from a chair with arms: Minimum/contact guard/standby assist Moving from lying on back to sitting on the side of bed: Modified independent/independent Moving to and from a bed to a chair: Minimum/contact guard/standby assist Walk in hospital room?: Minimum/contact guard/standby assist Climbing 3-5 steps with a railing: Minimum/contact guard/standby assist AM-PAC 6 Clicks: Mobility Total Score: 20 The following scores are predictive of discharge disposition during acute hospitalization: Home= 20 or greater; Home with Home Health=18; Continued skilled care at appropriate facility= 14 or less. Treatment Therapeutic Activity Therapeutic Activity: Activity 1 Activity 1: Extensive time spent assisting pt with pericares and replacing soiled bedding after pt had a BM. Education/Safety Education Provided Patient Education: Role of PT, ROM/Positioning, Strengthening and conditioning, Bed mobility, Transfers, Ambulation, Safe use of assistive device, Body mechanics, Safety with mobility, Risk of falls, Discharge recommendations Family Education: Family not present Safety Interventions Fall Risk?: Yes Safety Interventions/Patient Disposition: Standard interventions, In bed, Call light in hand, All needs within reach, Direct handoff to another provider (to OT continuing their eval) Goals Time Frame Goals target date: 07/03/22 Patient/family participation in goal setting Patient/family participation in goal setting: Yes Patient goal preference: Go home Gait Level of Assist: Modified independent Assistive Device: Least restrictive assistive device Distance: 300 Stair Negotiation Patient will perform stairs with: Modified independence UE Support: No UE support Number of Stairs: 5 Pattern: Step to pattern Home Exercise Program Patient will demonstrate independence with home exercise program: Goal ongoing TIME SPENT WITH PATIENT PT Time Spent with Patient for Evaluation PT Evaluation: 25 PT Timed Code Treatment Minutes (outside of evaluation) PT Therapeutic Activity: 25 PT Timed Code Treatment Minutes PT Total Billable Minutes: 50 Minutes Stephany Kay, OT - 06/19/2022 3:46 PM CDT Occupational Therapy Acute Evaluation Patient Name: Sara Barillas Today's Date: 06/19/2022 ASSESSMENT/PLAN/RECOMMENDATIONS Assessment/Plan/Recommendations OT Assessment Results: Impaired ADLs, Impaired IADLs, Impaired strength, impaired UE function, Impaired endurance Strengths: Good family support, Supportive living environment, Patient motivation, Patient cooperation Limitations/Discharge Barriers: Current medical status, Needs assist with ADL, Decreased strength, Decreased activity tolerance, Decreased coordination Rehab Potential: Good Treatment Interventions: ADL retraining, Functional transfer training, UE strengthening/ROM, Endurance training, Fine motor coordination activities, Compensatory technique education OT Frequency: 1x/day, 3-5 days a week OT Discharge Recommendations: Home with 24/7 Supervision Additional OT Services Upon Discharge: Home Health Care OT OT Plan Comments: Pt seen in room for OT evaluation, admitted following fall resulting in C5 pediclefx and central cord syndrome. Pt lives with spouse, is independent with most ADLs at baseline, however does require assist with dressing task including tying shoes and buttoning shirts d/t impaired hand function secondary to arthritis. Today pt demonstrating impaired BUE strength/coordination, impaired sensation, and decreased activity tolerance resulting in increased assist with ADL/IADLs. Significant weakness noted in proximal BUE, however reports this is baseline d/t rotator cuff injuries. However pt also demonstrating impaired distal BUE strength and coordination. Reports difficulty with self feeding, requires maxA to doff/don socks. Pt able to ambulate with SBA-CGA and FWW, steady throughout.Anticipate pt is safe to d/c home, however will require 24/7 support and assist with ADL/IADLs d/t BUE weakness. Will benefit from continued OT, either home health or outpatient. Will continue to see per OT POC. 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 He was unable to get up, his son had to come over and assist . [facility] with associated burning pain to bilateral upper extremities. CT head negative at OSH. He is currently endorsing pain to neck and upper extremities>lower, better with pain medication and rest. Pertinent Past Medical History: congestive heart failure, CAD with prior STEMI status post CABG x2, hypertension and alcohol abuse Patient Seen In: Room Family/Caregiver Present: No PRECAUTIONS Precautions Devices/Equipment Required: [place] Collar SAFETY INTERVENTIONS Safety Interventions Fall Risk?: Yes Safety Interventions/Patient Disposition: Standard interventions, Bed alarm on, In bed, All needs within reach, Call light in hand HOME LIVING Home Setup Type of Home: Apartment Lives With: Spouse Comment: Pt reports living with spouse in apartment which is connecting to sons house PRIOR FUNCTION ADL/IADL Prior Function ADL/IADL Patient is independent with: ADLs, Coloring Checker, Medication Management, Driving Patient needs assist with: Meal Preparation, Homemaking Receives Help From: Family Prior Function Comments: Pt reports intermittent assist with dressing, spouse typically has to assist with tying shoes and completing buttons d/t arthritis PRIOR FUNCTION MOBILITY Prior Level of Functional Mobility Independent with: All Mobility COGNITIVE STATUS Cognitive Status Overall Cognitive Status: Within Functional Limits UPPER EXTREMITY ASSESSMENTS ROM RUE ROM: Non-Functional LUE ROM : Non-Functional Strength RUE Strength: Non-Functional LUE Strength: Non-Functional Comment: Difficulty assess BUE strength, pt reports baseline rotator cuff injuries. ~80 degrees shoulder flexion which pt reports is baseline. Significant weakness noted in bilateral hands AM-PAC Outcome Measure 6 Clicks Daily ADL AM-PAC Putting on and taking off regular lower body clothing?: A Lot Bathing (including washing, rinsing, drying)?: A Lot Toileting, which includes using toilet, bedpan or urinal?: A Lot Putting on and taking off regular upper body clothing?: A Little Taking care of personal grooming such as brushing teeth?: A Little Eating meals?: A Little AM-PAC Daily Activity Raw Score: 15 AM-PAC Daily Activity CMS 0-100% Score: 56.46 AM-[facility] Daily Activity t-Scale Score: 34.69 The following scores are predictive of discharge disposition during acute hospitalization: Home= 20.1; Home with Home Health= 17.9; TCU=14; IRF=13.6; LTACH=11.5 Please refer to narrative for assessment of functional performance and discharge recommendations as scores may not always reflect mobility, cognitive aspects of performance or instrumental activities of daily living (IADLs) CURRENT ADL/IADL STATUS Current ADL Status LE Dressing Assistance: Maximal Toileting Assistance: Maximal ADL Comments: Pt requiring maxA to don/doff socks d/t impaired BUE function. Reports difficulty eating earlier in day, often dropping food d/t impaired hand function. However, pt also reports dropping items often at baseline d/t arthritis. FUNCTIONAL MOBILITY Bed Mobility Sit to Supine: SBA Dangling: SBA Functional Transfers Sit to Stand: Contact guard Stand to Sit: Contact guard Functional Mobility Functional Mobility: Pt able to ambulate household distance with SBA-CGA and FWW, maintains grasp onFWW with BUE throughout. Increased fatigue throughout task however able to complete without seated rest break. Pt reports often requiring breaks during ambulation at baseline. ACTIVITY TOLERANCE Activity Tolerance Endurance: Participates 20-30 min of therapy session PATIENT EDUCATION Patient Education Patient Education: Role of OT, Plan of care TIME SPENT WITH PATIENT OT Timed Code Treatment Minutes OT Evaluation: 25 OT Total Minutes Spent with Patient Total Minutes Spent With Patient (billable): 25 Minutes GOALS Time Frame Short term goals target date: 06/22/22 half-way goals target date: 06/25/22 STG Grooming Patient will complete daily grooming and light hygiene task: with supervision, with compensatory strategies Outcome: Goal Ongoing STG UE Dressing Patient will dress upper body donning/doffing: button down shirt, with minimal assist Outcome: Goal Ongoing STG LE Dressing Patient will dress lower body donning/doffing: underwear, pants, socks, shoes, with minimal assist, with compensatory strategies Outcome: Goal Ongoing STG Upper Extremity (UE) As a method to improve strength/endurance for functional independence with ADLs, IADLs, functional mobility, and home safety, patient will complete home exercise program: using progressive resistive exercises, fine motor coordination, gross motor coordination, with verbal cues Outcome: Goal Ongoing Headlight Adjuster Goals Patient will complete ADLs including: feeding, dressing, hygiene/grooming, toileting, with set-up/supervision Outcome: Goal Ongoing Cornelio Ng MD - 06/18/2022 2:05 PM CDT NEUROSURGICAL CONSULTATION NOTE Patient Name: Sara Barillas Address: No address on file. Age:72 y.o. Sex: male Admission Date/Time: 06/18/2022 12:45 PM Hospital Attending Physician: Brenda Fair MD I was asked to see this patient at the request of Judith Guerrero PA-C for evaluation of C spine fx. CHIEF COMPLAINT: BUE pain HPI: 72 y.o. male with pmhx significant for alcohol abuse, CHF, CKD and HTN who presented to OSH forevaluation after a fall. Per chart review, patient fell out of bed last evening around 11:00 pm lastevening. Per report, patient was drinking and unsure what happened. He noted he could not get up thereafter. Presented to OSH in which HCT was negative and pt discharged home. He then re- presented backto OSH ED that morning c/o bilat arm/hand pain: repeat HCT neg, C spine revealed right L5 lamina fx.He was transferred to [facility] and neurosurgery consulted for further evaluation. At bedside, patient denies any current neck pain, tolerating Amira collar. He reports baseline low back pain. He reports in itially after his fall he noted burning painful sensation and numbness in his forearms and hands equal bilaterally. However, this morning this has improved to only include his wrists and hands. He reports BUE weakness as well (worse than baseline). In regards to his LEs, patient reports BLE numbnessin his feet (new). Denies any pain or focal weakness in BLEs. Of note, patient reports longstanding history of weak grasp in hands and dropping items. REVIEW OF SYSTEMS A comprehensive review of systems was negative except for items noted in the HPI/Subjective. PAST MEDICAL HISTORY No past medical history on file. PAST SURGICAL HISTORY No past surgical history on file. PRIOR TO ADMISSION MEDICATIONS (Not in a hospital admission) ALLERGIES No Known Allergies FAMILY HISTORY No family history on file. SOCIAL HISTORY Social History Socioeconomic History ??? Marital status: Not on file Spouse name: Not on file ??? Number of children: Not on file ??? Years of education: Not on file ??? Highest education level: Not on file Occupational History ??? Not on file Tobacco Use ??? Smoking status: Former Smoker ??? Smokeless tobacco: Not on file Substance and Sexual Activity ??? Alcohol use: Yes ??? Drug use: Yes Types: Marijuana ??? Sexual activity: Not on file Other Topics Concern ??? Not on file Social History Narrative ??? Not on file Social Determinants of Health Financial Resource Strain: Not on file Food Insecurity: Not on file Transportation Needs: Not on file Physical Activity: Not on file Stress: Not on file Social Connections: Not on file Intimate Partner Violence: Not on file Housing Stability: Not on file GENERAL PHYSICAL EXAM General Appearance: WNWD male in NAD HEENT: normocephalic. Superior scalp abrasion w dried blood. No evidence of otorrhea or rhinorrhea. No Frias's or Racoon Neck: Amira collar in place Respiratory: non-labored Cardiovascular: normal heart rate Extremities: no obvious deformities Back: no axial TL TTP Integument: warm and dry NEUROLOGIC PHYSICAL EXAM: Orientation: Awake, alert. Oriented to person and place. Follows commands Speech: Clear and fluent Cranial Nerves: Face symmetrical. Conjugate gaze Motor: RUE D 4/5, B 4+/5, T 4/5, G 3/5. LUE D 5/5, B 5/5, T 4+/5, G 3/5. BLEs 5/5 throughout Sensation: Decreased sensation in feet bilaterally. Hyperesthesias in bilateral hands. SILT in remaining extremities Reflexes: No clonus. Right sided upgoing toes, left sided toes equivocal IMAGING: HCT 06/17/22 @ OSH Negative for acute injury/hemorrhage HCT 06/18/22 @ OSH Negative for acute injury/hemorhage Cervical CT 06/18/22 @ OSH Mildly displaced fracture of right C5 lamina extending to base of spinous process ASSESSMENT/PLAN: 72 y.o. male with pmhx significant for alcohol abuse, CHF, CKD and HTN who presented to OSH for evaluation after a fall out of bed w c/o bilat hand/forearm burning pain and bilat hand/feet numbness. C CT w mildly displaced fracture of right C5 lamina extending to base of spinous process. HCT x 2 negative. Recommend aspen collar to be worn at all times. Consulted [facility] for a custom fit aspen collar with an additional interface. Also recommend cervical MR WO for further evaluation. Will discuss case w Dr. Ng when able. Further recs pending. DVT PPX: Hold Thank you for the opportunity to participate in this patient's care. Edna Barragan PA-C Pager: 06/18/2022 2:06 PM Addendum: Bed rest w HOB up to 30 degrees w aspen collar. Upright C XRs once receive aspen collar. NPO at midnight. Hold DVT prophylaxis. Further recs pending C MRI. Edna Barragan PA-C Pager: 06/18/2022 4:01 PM Agree with above Pt with C5 lamina fracture after a fall He does have some burning pain in his hands. Will get an MRI No surgical plans for now Plan on treating fracture with an aspen at all times Will cont to follow Cornelio Ng MD [facility] [phone] Pg. [phone] documented in this encounter Nursing Notes Rebeka Moe RN - 06/24/2022 4:45 PM CDT Problem: Falls/Injury-Risk of Goal: Absence of Falls/Injury Outcome: Completed Problem: Pressure Injury - Risk of Goal: Absence of pressure injury Outcome: Completed Problem: Communication Goal: Demonstrates/exhibits ability to communicate needs effectively Outcome: Completed Problem: SAFETY Goal: *Communicates safety needs Outcome: Completed Problem: Pain Goal: Exhibits reduction in pain to a level of acceptable comfort Outcome: Completed Problem: Venous Thromboembolism (VTE) Goal: Absence of venous thromboembolism (VTE) Outcome: Completed Problem: Discharge Planning Goal: Establish appropriate post-hospitalization placement Outcome: Completed Problem: Anticoagulation, pharmacologic therapy Goal: Adheres to therapeutic regimen Outcome: Completed Problem: Mobility - Impaired Goal: Demonstrates ability to perform physical activity independently or with assistive devices as needed Outcome: Completed Goal: Verbalizes an understanding of immobility risks and complications Outcome: Completed Problem: Constipation Goal: Verbalizes an understanding of constipation risk factors and prevention strategies Outcome: Completed Missael Lorenzana - 06/24/2022 4:35 PM CDT Acute Physical Therapy Treatment Patient Name: Sara Barillas Today's Date: 06/24/2022 Admission Date: 06/18/2022 Precautions Precautions Devices/Equipment Required: [place] Collar Precautions: Maintain head and neck in neutral Precautions Comments: [place] at all times Assessment PT Assessment/Recommendations Assessment: Pt is mobilizing well but not as well as previous sessions. He completed transfers, ambulation, and stairs with SBA-CGA but is less steady today. Able to walk 400' with FWW and SBA-CGA without any overt LOB. Patient would need physical assistance to get in/out of the home d/t 2-5 steps without rail. Pt states that he has two walkers at home. He does not need any physical assistance with mobility but does need help with adjusting his [place] collar and general safety d/t mentation and poor insight. Recommend discharging home with 24/7 supervision initially and HHPT when medically stable. Recommend frequent ambulation with nursing staff. Recommendations for Nursing: Mobilize assist of 1 with gait belt, Up to chair 2- 3x/day, Ambulate 2-3x/day, Use of assistive device with mobility Type of Assistive Device: FWW Recommended Discharge Disposition: Home with support Recommended Continued PT Upon Discharge: Home health PT Equipment Recommended for Home: Rolling walker, Shower chair Equipment Issued: None Encounter Details General Diagnosis: C5 pedicle fracture Admission/Diagnosis Details: Presents to [facility] ED following fall out of bed this morning. He was unable to get up, his son had to come over and assist . [facility] with associated burning pain to bilateral upper extremities. Pertinent Past Medical History: congestive heart failure, CAD with prior STEMI status post CABG x2, hypertension and alcohol abuse Patient Seen In: Room Family/Caregiver Present: No Subjective Comments: Pt is pleasant and agreeable to therapy. Lines and Tubes: Urban Catheter, O2 Delivery Device (nurse ok with trial O2 removal - no desat [id number]' ambulation - ok'd to leave off) O2 Delivery Device: Nasal Cannula Subjective/Social History Home Setup Type of Home: Apartment Lives With: Spouse Home Layout: Two level Home Entry: Stairs to enter without rails Number of stairs: 3 Stairs within Home: Stairs with rails Rails: Unilateral Number of stairs: 5 Comment: Pt reports living with spouse in apartment which is connecting to sons house Prior Level of Functional Mobility Independent with: All Mobility Needs Assistance with: ADLs, IADLs Mobility Equipment Used: None DME owned: Rolling walker, Tub bench History of falls: yes, less than 1 month ago Comment: pt does not use AD at baseline but has one from previous injuries Pain Patient complained of no pain. Objective Cognitive Status Orientation Level: Oriented X4 Arousal/Alertness: Appropriate responses to stimuli Following Commands: Follows multistep commands Safety Judgment: Impaired Motor Planning/Processing: Within Functional Limits Cognition Comments: Pt continues to demonstrate impulsivity and lack of safety awareness. Therapy Vitals SpO2: 94% Oxygen Delivery Device: Room Air Vitals Comments: Pt initially on 2L O2 (pt reported for only 1 hour). Nurse ok with trial of RA and continue w/o O2 if no desat. Pt at 96% post ambulation so continued on RA. Therapeutic Activity Bed Mobility Transfers Sit to/from Stand Level of Assist: Standby assist Assistive Device: Rolling walker Comments: Pt stands easily but impulsively under his own power. Cueing for safe hand placement and walker management on first STS. Subsequent STS did not need cueing but pt still impulsive. Stand Pivot Stand Pivot Level of Assistance: Standby assist Stand Pivot Assistive Device: Rolling walker Comments: Pt stands easily but impulsively under his own power. Cueing for safe hand placement and walker management provided. Miscellaneous Gait Training Ambulation Bout 1 Surface: Level anthony Complexity: Forward stepping Distance (ft): x400, x40 Assistive Device: Rolling walker Level of Assist: Standby Assist, Contact guard/steadying assist Quality of Gait: Pt reports feeling less steady with ambulation and feeling weaker. Obstetrics Teacher agrees. Pt cued for upright posture with good carryover. Stairs Bout 1 Method: Ambulation Number of Stairs: 10 UE Support: Unilateral Rail Level of Assist: Standby Assist Pattern: Step to, Reciprocal Comments: Steady with rail support. Patient would need physical assistance with his 5 steps to enterthe home without a rail. Unsure of number of steps d/t several different numbers reported. Therapeutic Exercise Seated Seated Exercises: Toe raises, Heel raises, Long arc quad, Hip abduction, Hip adduction, Marches Seated Exercise Comment: x5 each performed and well tolerated. Pt given education and handout regarding HEP. Standing Standing Exercises: Heel raises, Marches, Hip abduction, Hip extension, Hamstring Curls Standing Exercise Comment: x5 each performed and well tolerated. Pt given education and handout regarding HEP. [facility] AM-PAC 6-Clicks Turning over in bed (including adjusting bed clothes, sheets, and blankets): Modified independent/independent Sitting down and standing up from a chair with arms: Minimum/contact guard/standby assist Moving from lying on back to sitting on the side of bed: Modified independent/independent Moving to and from a bed to a chair: Minimum/contact guard/standby assist Walk in hospital room?: Minimum/contact guard/standby assist Climbing 3-5 steps with a railing: Minimum/contact guard/standby assist AM-PAC 6 Clicks: Mobility Total Score: 20 The following scores are predictive of discharge disposition during acute hospitalization: Home= 20 or greater; Home with Home Health=18; Continued skilled care at appropriate facility= 14 or less. Education/Safety Education Provided Patient Education: Ambulation, Safe use of assistive device, Body mechanics, Post-surgical precautions, HEP, Risk of falls, Discharge recommendations Family Education: Family not present Safety Interventions Fall Risk?: Yes Safety Interventions/Patient Disposition: Standard interventions, In chair, Call light in hand, All needs within reach, RN notified, Direct handoff to another provider (care team rounds entered just prior to magazine writer leaving') Comment: bed alarm left off as care team wanting to mobilize to check hemorrhoids GOALS-The interventions during this session were provided to address the goals set forth on evaluation and are ongoing unless otherwise indicated. Time Frame Goals target date: 07/03/22 TIME SPENT WITH PATIENT PT Timed Code Treatment Minutes (outside of evaluation) PT Therapeutic Activity: 11 PT Gait Trainin PT Therapeutic Exercise: 12 PT Timed Code Treatment Minutes PT Total Billable Minutes: 27 Minutes Kali Jain COMPRESSOR HOUSE OPERATOR - 06/24/2022 8:42 AM CDT Problem: Discharge Planning Goal: Establish appropriate post-hospitalization placement Outcome: Ongoing Flowsheets (Taken 06/24/2022841) Date of Last CM Visit: 06/24/22 Care Management - Progress Note Patient's chart reviewed. Patient discussed in rounds. Assessment: Admitted for evaluation of fall sustaining C5 fx. ??NSGY following- plan for Skamokawa??collar x3 months.? Anticipated Discharge Date: today Anticipated Discharge Needs: Home with support, home care Potential Barriers: None Identified Care Coordination Plan & Communication with Patient/Family: Therapies now recommending home withsupport and home care. Per PT note, pt does not need physical assistance with mobility other than the 2 STS and help with adjusting his [place] collar. Per trauma provider Melo, son completed Skamokawa teaching yesterday. Home care arranged with [facility]. Obstetrics Teacher left a VM for pt's dtr Lila (p. [phone]) to update regarding the above. If family wouldlike to continue to pursue TCU placement, it would be private pay. ADD 10:59AM Obstetrics Teacher able to connect with pt's dtr Lila. She reported that her brother visited pt at bedside yesterday and noted that he 'cant walk' and is refusing to take him home. Lila asked that magazine writer reach out to pt's son Jefry to discuss further. SW able to reach pt's son Jefry (p. [phone]). Obstetrics Teacher reviewed hospital course and therapy recommendations noting that pt is independent with use of walker. Jefry reported that 'we are going to have to figure something out because he (pt) is unable to come home.' Jefry noted that he is concerned pt is going to fall. Obstetrics Teacher reiterated therapy recommendations and discussed home care services. EDISON discussed private pay TCU as only addtl option. Jefry stated that he would call pt to discuss private pay TCU. Obstetrics Teacher will follow up with pt at bedside to discuss further. ADD 11:24AM SW received an updated call from pt's dtr Lila noting that they would like pt to private pay for TCU through Friday as they have 'things they need to figure out at home.' Obstetrics Teacher attempted to meet withpt at bedside but currently working with therapies doing stairs. ADD 11:55AM Obstetrics Teacher met with pt at bedside to discuss private pay TCU. Pt noted that he would be in agreement to private pay for a TCU 'for a couple days' if absolutely needed. 1. [facility] in [place] (p. [phone], f. [phone]): Obstetrics Teacher left a VM for admissions regarding bed availability and ability to review referral. Continued Care and Services - Admitted Since 06/18/2022 Destination Service Provider Request Status Selected Services Address Phone Fax Patient Preferred [facility] Declined No appropriate bed N/A [address] [facility] [id number] [phone] -- Internal Comment last updated by Kali Jain, COMPRESSOR HOUSE OPERATOR 06/24/2022 1320 06/24 [facility] Obstetrics Teacher left a VM to discuss private pay TCU for [place] [facility]. ADD 1:19PM Per Lee Ann, pt not appropriate for TCU if there is no skilled need. 06/21 [facility] Obstetrics Teacher left a VM for admissions regarding bed availability. Granted [facility] access for review. [facility] Declined No appropriate bed N/A [address] [facility] [place] [address] [phone] -- Internal Comment last updated by Kali Jain, COMPRESSOR HOUSE OPERATOR 06/24/2022 1249 8/8 SW GM Per Katie, there is no skilled need for TCU so they are unable to accept. 06/21 SW [facility] Per Katie, no weekend bed availability. [facility] Facility Full N/A [address] [facility] [phone] -- Internal Comment last updated by Kali Jain, COMPRESSOR HOUSE OPERATOR 06/24/2022 1247 8 SW GM Per Rashmi in admissions, no beds available until Friday. 06/21 [facility] Obstetrics Teacher left a VM for Rashmi in admissions. Granted [facility] access for review. ADD 1:24PM Obstetrics Teacher updated by multiple facilities that they are unable to accept pt to TCU (even in private pay)due to lack of skilled need. [place] [facility] cares does not qualify as a skilled need. Only option at this time is d/c home with private pay home care. Obstetrics Teacher called pt's dtr Lila and son Jefry to update regarding the above. Sent private pay home care list to pt's dtr Lila ([email or web address]). Obstetrics Teacher reiterated to family that pt is medically stable for d/c and plan will be for d/c home tomorrow (Friday) with private pay home care. Updated pt at bedside and trauma provider Melo as well. ADD 2:59PM Obstetrics Teacher updated by pt's dtr Lila that private pay home care is booked until next week so she is requesting pt d/c today. She will be here in about an hour. Paged trauma provider Melo to update and also Epic chatted bedside RN Lee Ann and pyrotechnic mixer Connie. COVID Test Result: No results found for: [id number], [id number], [id number], [id number] ANN Lo, JACI 06/24/2022 8:47 AM Megan Moreno RN - 06/24/2022 12:20 AM CDT Problem: Constipation Goal: Verbalizes an understanding of constipation risk factors and prevention strategies Outcome: Met this shift Note: Scheduled Senna and Miralax given BID. Obstetrics Teacher also gave PRN Milk of mag w/o relief. Pt has prolapse and hemorrhoids causing bleeding -provider aware. Megan Moreno RN - 06/23/2022 10:00 PM CDT Problem: Pressure Injury - Risk of Goal: Absence of pressure injury Outcome: Met this shift Note: No PI noted this shift. Obstetrics Teacher removed ASPEN and changed pads, mepilex in place. Problem: Pain Goal: Exhibits reduction in pain to a level of acceptable comfort Outcome: Met this shift Note: Pt reports adequate pain control w/current regime. Ivett Grady RN - 06/23/2022 6:58 PM CDT Problem: Falls/Injury-Risk of Goal: Absence of Falls/Injury Outcome: Met this shift Flowsheets (Taken 06/23/2022 1275) Environmental Safety Interventions: Standard Interventions in Place Mobility Safety Interventions: Standard Interventions in Place Elimination Safety Interventions: Standard Interventions in Place Medication: Standard Interventions in Place Problem: Pressure Injury - Risk of Goal: Absence of pressure injury Outcome: Met this shift Megan Moreno RN - 06/23/2022 4:03 AM CDT Problem: Pain Goal: Exhibits reduction in pain to a level of acceptable comfort Outcome: Met this shift Note: Pain well controlled w/scheduled meds along w/PRN Robaxin and Oxycodone. Problem: Anticoagulation, pharmacologic therapy Goal: Adheres to therapeutic regimen Outcome: Met this shift Note: SCDs, PO Eliquis and ASA. Megan Moreno RN - 06/22/2022 10:00 PM CDT Problem: Falls/Injury-Risk of Goal: Absence of Falls/Injury Outcome: Met this shift Flowsheets (Taken 06/23/2022 0020) Environmental Safety Interventions: Standard Interventions in Place Mobility Safety Interventions: Standard Interventions in Place Elimination Safety Interventions: Standard Interventions in Place Medication: Standard Interventions in Place Reviewed Prescribed Medications that Could Predispose to Falling Consults: Social Service Consult Physical Therapy (Requires MD Order) Occupational Therapy (Requires MD Order) Note: No falls this shift, bed/chair alarm in use. Pt using call light appropriately, no attempts toget OOB w/o help. Bonita Leija RN - 06/22/2022 3:47 PM CDT Problem: Falls/Injury-Risk of Goal: Absence of Falls/Injury 06/22/20221546 by Bonita Leija RN Outcome: Met this shift Note: Patient free of falls this shift. Patient demonstrated proper use of call light. Green bracelet, red socks, bed alarm on at all times. Problem: Pain Goal: Exhibits reduction in pain to a level of acceptable comfort 06/22/20221546 by Bonita Leija RN Outcome: Met this shift Note: Pain controlled with current regimen. Gave scheduled meds and utilized available PRN meds whenneeded. Patient reporting lower numbers on numeric pain scale after interventions applied. Bonita Leija RN - 06/22/2022 1:22 PM CDT Problem: Falls/Injury-Risk of Goal: Absence of Falls/Injury Outcome: Met this shift Note: Occasionally setting off bed alarm, mostly d/t shifting in bed. Patient free of falls this shift. Patient demonstrated proper use of call light. Green bracelet, red socks, bed alarm on at all times. Problem: Pain Goal: Exhibits reduction in pain to a level of acceptable comfort Outcome: Met this shift Note: Pain controlled with current regimen. Gave scheduled meds and utilized available PRN meds whenneeded. Patient reporting lower numbers on numeric pain scale after interventions applied. Anahi Alejo PT - 06/22/2022 12:29 PM CDT Acute Physical Therapy Treatment Patient Name: Sara Barillas Today's Date: 06/22/2022 Admission Date: 06/18/2022 Precautions Precautions Devices/Equipment Required: [place] Collar Precautions: Maintain head and neck in neutral Precautions Comments: [place] at all times Assessment PT Assessment/Recommendations Assessment: Pt is mobilizing well. Able to walk ~300' with RW and supervision without any instability. Patient does have 2 LASHELL without rail and would need physical assistance to get in/out of the home.Patient would benefit from installing a rail at home to increase his independence. Pt states that hehas two walkers at home. He does not need any physical assistance with mobility other than the 2 STSand help with adjusting his [place] collar. Family will need to learn how to assist with the collar. Per patient report, he does have family support who live on the same property to help with steps. His is retired and home with him, but not able to physically assist with steps as she is not very strong. Recommend discharging home with support and HH PT when medically stable. Recommend frequent ambulation with nursing staff. Recommendations for Nursing: Mobilize assist of 1 with gait belt Type of Assistive Device: RW Recommended Discharge Disposition: Home with support Recommended Continued PT Upon Discharge: Home health PT Encounter Details General Diagnosis: C5 pedicle fracture Admission/Diagnosis Details: Presents to [facility] ED following fall out of bed this morning. He was unable to get up, his son had to come over and assist . [facility] with associated burning pain to bilateral upper extremities. Pertinent Past Medical History: congestive heart failure, CAD with prior STEMI status post CABG x2, hypertension and alcohol abuse Patient Seen In: Room Family/Caregiver Present: No Subjective Comments: Patient is alert and very pleasant. Talkative throughout session. Lines and Tubes: Urban Catheter Subjective/Social History Home Setup Type of Home: Apartment Lives With: Spouse Home Layout: Two level Home Entry: Stairs to enter without rails Number of stairs: 3 Stairs within Home: Stairs with rails Rails: Unilateral Number of stairs: 5 Comment: Pt reports living with spouse in apartment which is connecting to sons house Prior Level of Functional Mobility Independent with: All Mobility Needs Assistance with: ADLs, IADLs Mobility Equipment Used: None DME owned: Rolling walker, Tub bench History of falls: yes, less than 1 month ago Comment: pt does not use AD at baseline but has one from previous injuries Pain Patient does not report pain Therapeutic Activity Bed Mobility Bed Mobility Supine to Sit: Independent Sit to Supine: Independent Dangling: Independent Bridging/Repositioning: Independent Scooting: Independent Setup/Equipment: HOB flat Transfers Sit to/from Stand Level of Assist: Modified independent Assistive Device: Rolling walker Gait Training Ambulation Bout 1 Distance (ft): ~350' Assistive Device: Rolling walker Level of Assist: Supervision Quality of Gait: Pt has flexed posture. Stable with ambulation. Stairs Bout 1 Method: Ambulation Number of Stairs: 10 UE Support: Unilateral Rail Level of Assist: Standby Assist Pattern: Step to, Reciprocal Comments: Steady with rail support. Intermittently amb with reciprocal. 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 Patient would need physical assistance with his 2 steps to enter the home without a rail. [facility] AM-PAC 6-Clicks Turning over in bed (including adjusting bed clothes, sheets, and blankets): Modified independent/independent Sitting down and standing up from a chair with arms: Modified independent/independent Moving from lying on back to sitting on the side of bed: Modified independent/independent Moving to and from a bed to a chair: Modified independent/independent Walk in hospital room?: Minimum/contact guard/standby assist Climbing 3-5 steps with a railing: Minimum/contact guard/standby assist AM-PAC 6 Clicks: Mobility Total Score: 22 The following scores are predictive of discharge disposition during acute hospitalization: Home= 20 or greater; Home with Home Health=18; Continued skilled care at appropriate facility= 14 or less. Education/Safety Education Provided Patient Education: Ambulation, Safe use of assistive device, Body mechanics, Post-surgical precautions Family Education: Family not present Comment: Encourged patient to get a shower chair for home and install a rail at the 2 steps to enterthe home. Safety Interventions Fall Risk?: Yes Safety Interventions/Patient Disposition: Standard interventions, Bed alarm on, In bed, Call light in hand, All needs within reach GOALS-The interventions during this session were provided to address the goals set forth on evaluation and are ongoing unless otherwise indicated. Time Frame Goals target date: 07/03/22 Gait Level of Assist: Modified independent Assistive Device: Least restrictive assistive device Distance: 300 Stair Negotiation Patient will perform stairs with: Modified independence UE Support: No UE support Number of Stairs: 5 Pattern: Step to pattern Home Exercise Program Patient will demonstrate independence with home exercise program: Goal ongoing TIME SPENT WITH PATIENT PT Timed Code Treatment Minutes (outside of evaluation) PT Therapeutic Activity: 8 PT Gait Trainin PT Timed Code Treatment Minutes PT Total Billable Minutes: 23 Minutes Megan Moreno RN - 06/22/2022 3:01 AM CDT Problem: Pain Goal: Exhibits reduction in pain to a level of acceptable comfort Outcome: Met this shift Note: Pt only reports pain to bilateral hands. Current regime adequate. Problem: Discharge Planning Goal: Establish appropriate post-hospitalization placement Outcome: Ongoing Flowsheets (Taken 06/21/2022 1439 by Kali Jain [facility]) Date of Last CM Visit: 06/21/22 Note: Therapies currently recommending a TCU or / home support d/t ASPEN. TCU placement will prove difficult d/t ETOH use. Therapies to re-visit/assess. Megan Moreno RN - 06/21/2022 9:00 PM CDT Problem: Falls/Injury-Risk of Goal: Absence of Falls/Injury Outcome: Met this shift Flowsheets (Taken 06/21/2022 0330) Environmental Safety Interventions: Standard Interventions in Place Mobility Safety Interventions: Standard Interventions in Place Elimination Safety Interventions: Standard Interventions in Place Medication: Standard Interventions in Place Reviewed Prescribed Medications that Could Predispose to Falling Consults: Social Service Consult Physical Therapy (Requires MD Order) Occupational Therapy (Requires MD Order) Note: No falls this shift, mostly steady w/walker. Problem: Pressure Injury - Risk of Goal: Absence of pressure injury Outcome: Met this shift Note: No PI noted this shift. Obstetrics Teacher did change ASPEN pads and place foam mepilex under chin -he wasshaved recently and notes that it hurts a little when it rubs, no redness noted. Anahi Guido RN - 06/21/2022 5:25 PM CDT Problem: Falls/Injury-Risk of Goal: Absence of Falls/Injury Outcome: Met this shift Problem: Pressure Injury - Risk of Goal: Absence of pressure injury Outcome: Met this shift Moshe Barker OT - 06/21/2022 3:23 PM CDT Occupational Therapy Rehab Daily Treatment Note Patient Name: Sara Barillas Today's Date: 06/21/2022 ASSESSMENT/PLAN/RECOMMENDATIONS Assessment/Plan/Recommendations OT Assessment Results: Impaired ADLs, Impaired IADLs, Impaired strength, impaired UE function, Impaired endurance Strengths: Good family support, Supportive living environment, Patient motivation, Patient cooperation Limitations/Discharge Barriers: Current medical status, Needs assist with ADL, Decreased strength, Decreased activity tolerance, Decreased coordination OT Discharge Recommendations: Home with 24/7 Supervision Additional OT Services Upon Discharge: Home Health Care OT Patient Progress: Pt compensates well for sensory loss in B hands to complete dexterity tasks. He does report dropping items throughout the day. Recommend pt discharge home with 24/ support as he remains a high fall risk. He will benefit from home care at discharge to further address ADLs. If BUE function remains limited, he will benefit from OP OT following home care. GENERAL General Visit Type: Treatment Onset Date: 06/18/22 Diagnosis: C5 pedicle fracture Admission/Diagnosis Details: Presents to [facility] ED following fall out of bed this morning. He was unable to get up, his son had to come over and assist . [facility] with associated burning pain to bilateral upper extremities. Pertinent Past Medical History: congestive heart failure, CAD with prior STEMI status post CABG x2, hypertension and alcohol abuse Patient Seen In: Room Subjective (Comment): Pt sleeping upon OT arrival. PRECAUTIONS Precautions Devices/Equipment Required: [place] Collar SAFETY INTERVENTIONS Safety Interventions Fall Risk?: Yes Safety Interventions/Patient Disposition: Standard interventions, Bed alarm on, In bed, All needs within reach PATIENT IS FUNCTIONING FOLLOWS: Functional Mobility Bed Mobility Supine to Sit: Independent Sit to Supine: Independent Dangling: SBA Functional Transfers Sit to Stand: Contact guard Stand to Sit: SBA Functional Mobility Functional Mobility: Pt ambulated in room and hallway with RW and SBA/CGA. LOB noted when distractedrequiring Jhonny to correct. Functional Activity Functional Activity: To further improve functional dexterity for improved ADL/IADL independence, pt engaged in FMC focused on sustained 2-pt pinch and in- hand manipulation. Completed with increased time; dropped items approx 25% of tasks but did nto require assistance. Activity Tolerance Endurance: Participates 20-30 min of therapy session PATIENT EDUCATION Patient Education Patient Education: Role of OT, Plan of care JACI Cornejo - 06/21/2022 2:39 PM CDT Problem: Discharge Planning Goal: Establish appropriate post-hospitalization placement Outcome: Ongoing Flowsheets (Taken 06/21/2022 8316) Date of Last CM Visit: 06/21/22 Care Management - Progress Note Patient's chart reviewed. Patient discussed in rounds. Assessment: Admitted for evaluation of fall sustaining C5 fx. ??NSGY following- plan for [place] collarx3 months. Anticipated Discharge Date: TBD pending placement Anticipated Discharge Needs: TCU vs Home with support, home care pending progress in therapies Potential Barriers: limited weekend TCU bed availability Care Coordination Plan & Communication with Patient/Family: Therapies recommending home with 24/7 support and home care. Per trauma provider Kaela yesterday, son and dtr able to provide this level of support. Home care arranged through [facility]. SW received a call from pt's dtr Lila (p. [phone]) who reported that family is unable to provide 24/7 support as both her and her brother have kids and other obligations. They are interested in TCU placement. Lila aware that pt may progress to d/c home with home care prior to TCU acceptance as weekend TCU bed availability is extremely limited. Lila prefers placement in [place] but is open to placement near the [facility] as well. Updated trauma provider Melo who will request pt be seen by PT over the weekend. 1. [facility] in [place] (p. [phone], f. [phone]): Per Vida, no bed available until Friday. Faxed referral for review. 2. [facility] (p. [phone]): Obstetrics Teacher left a VM for admissions to discuss bed availability and get fax number. Continued Care and Services - Admitted Since 06/18/2022 Destination Service Provider Request Status Selected Services Address Phone Fax Patient Preferred [facility] Pending - No Request Sent N/A [address] [facility] [phone] -- Internal Comment last updated by JACI Cornejo 06/21/2022 14406/21 [place] Obstetrics Teacher left a VM for admissions regarding bed availability. Granted [facility] access for review. [facility] Pending - No Request Sent N/A [address] [facility] [place] [phone] -- Internal Comment last updated by JACI Cornejo 06/21/2022 [address]45 [facility] Per Katie, no weekend bed availability. [facility] Pending - No Request Sent N/A [address] [facility] [phone] -- Internal Comment last updated by JACI Cornejo 06/21/2022 1445 06/21 [facility] Obstetrics Teacher left a for Rashmi in admissions. Granted [facility] access for review. COVID Test Result: No results found for: [id number], [id number], [id number], [id number] ANN Lo, JACI 06/21/2022 2:46 PM Erlinda Jackson RN - 06/21/2022 12:43 PM CDT Problem: Falls/Injury-Risk of Goal: Absence of Falls/Injury Outcome: Met this shift Flowsheets Taken 06/21/2022 0808 by Erlinda Jackson RN Environmental Safety Interventions: Standard Interventions in Place Fall Risk Light on Outside Patient Room Patient/Family Reminded Regarding Fall Prevention High Risk Armband On (Green Bracelet) Keep Assistive Device Close At All Times Mobility Safety Interventions: Standard Interventions in Place Stay Within Arms Reach Use Assistive Device When Patient Is Up Transfer/Gait Belt In Use When Patient Is Up Bed Alarm on Fall Prevention Slippers Remind Patient to Ask for Assistance When Getting Up Elimination Safety Interventions: Standard Interventions in Place Stay Within Arms Reach Offered/Assisted with Toileting Every 2 Hours Taken 06/21/2022 0048 by Emi Babb RN Medication: Standard Interventions in Place Taken 06/20/2022 0800 by Anahi Guido RN Consults: Physical Therapy (Requires MD Order) Occupational Therapy (Requires MD Order) Note: No falls this shift. Pt ambulating in room independently. Problem: Communication Goal: Demonstrates/exhibits ability to communicate needs effectively Outcome: Met this shift Note: Pt uses call light appropriately to make wants and needs known. Problem: Anticoagulation, pharmacologic therapy Goal: Adheres to therapeutic regimen Outcome: Met this shift Note: Eliquis, ASA Problem: Mobility - Impaired Goal: Demonstrates ability to perform physical activity independently or with assistive devices as needed Outcome: Met this shift Brenda Randall, PT - 06/21/2022 10:03 AM CDT Acute Physical Therapy Treatment Patient Name: Sara Barillas Today's Date: 06/21/2022 Admission Date: 06/18/2022 Precautions Precautions Devices/Equipment Required: [place] Collar Precautions: Maintain head and neck in neutral Precautions Comments: [place] at all times Assessment PT Assessment/Recommendations Assessment: Pt is mobilizing well. Able to walk ~300' with RW and SBA. Pt has flexed posture, able to fix with cues. Pt states that he has two walkers at home. Pt to d/c home when medically stable. Recommend frequent ambulation with nursing staff. Recommendations for Nursing: Mobilize assist of 1 with gait belt, Ambulate 2- 3x/day, Use of assistive device with mobility Type of Assistive Device: RW Recommended Discharge Disposition: Home with 09/06 supervision Recommended Continued PT Upon Discharge: Home health PT Encounter Details General Diagnosis: C5 pedicle fracture Admission/Diagnosis Details: Presents to [facility] ED following fall out of bed this morning. He was unable to get up, his son had to come over and assist . [facility] with associated burning pain to bilateral upper extremities. Pertinent Past Medical History: congestive heart failure, CAD with prior STEMI status post CABG x2, hypertension and alcohol abuse Patient Seen In: Room Family/Caregiver Present: No Subjective Comments: Pt sleeping, woke easily. States that he was up alot last night trying to urinate and have BM. Pt very pleasant, cooperative, ready to go home when medically stable but wants to beable to urinate. Pt talkative. Lines and Tubes: Urban Catheter Subjective/Social History Home Setup Type of Home: Apartment Lives With: Spouse Home Layout: Two level Home Entry: Stairs to enter without rails Number of stairs: 3 Stairs within Home: Stairs with rails Rails: Unilateral Number of stairs: 5 Comment: Pt reports living with spouse in apartment which is connecting to sons house Prior Level of Functional Mobility Independent with: All Mobility Needs Assistance with: ADLs, IADLs Mobility Equipment Used: None DME owned: Rolling walker, Tub bench History of falls: yes, less than 1 month ago Comment: pt does not use AD at baseline but has one from previous injuries Pain Patient did not c/o pain Objective Therapeutic Activity Bed Mobility Bed Mobility Supine to Sit: Independent Sit to Supine: Independent Dangling: Independent Setup/Equipment: [facility] flat Bed Mobility Comments: PT adjusted [place] collar to fit properly while pt supine. Transfers Sit to/from Stand Level of Assist: Modified independent Assistive Device: Rolling walker Therapeutic Exercise Ambulation Bout 1 Distance (ft): ~300' Assistive Device: Rolling walker Level of Assist: Standby Assist Quality of Gait: Pt has flexed posture. Talkative about his back issues. Encouraged pt to stand moreupright, I know that I'm supposed to do that. [facility] AM-PAC 6-Clicks Turning over in bed (including adjusting bed clothes, sheets, and blankets): Modified independent/independent Sitting down and standing up from a chair with arms: Modified independent/independent Moving from lying on back to sitting on the side of bed: Modified independent/independent Moving to and from a bed to a chair: Modified independent/independent Walk in hospital room?: Minimum/contact guard/standby assist Climbing 3-5 steps with a railing: Minimum/contact guard/standby assist AM-PAC 6 Clicks: Mobility Total Score: 22 The following scores are predictive of discharge disposition during acute hospitalization: Home= 20 or greater; Home with Home Health=18; Continued skilled care at appropriate facility= 14 or less. Education/Safety Education Provided Patient Education: Ambulation, Safe use of assistive device, Body mechanics, Post-surgical precautions Safety Interventions Fall Risk?: Yes Safety Interventions/Patient Disposition: Standard interventions, Bed alarm on, In bed, All needs within reach GOALS-The interventions during this session were provided to address the goals set forth on evaluation and are ongoing unless otherwise indicated. Time Frame Goals target date: 07/03/22 TIME SPENT WITH PATIENT PT Timed Code Treatment Minutes (outside of evaluation) PT Therapeutic Exercise: 13 PT Timed Code Treatment Minutes PT Total Billable Minutes: 13 Minutes Emi Babb RN - 06/21/2022 12:49 AM CDT Problem: Falls/Injury-Risk of Goal: Absence of Falls/Injury 06/21/202248 by Emi Babb RN Outcome: Met this shift 06/20/20222142 by Emi Babb RN Outcome: Met this shift Problem: Pressure Injury - Risk of Goal: Absence of pressure injury 06/21/202248 by Emi Babb RN Outcome: Met this shift 06/20/20222142 by Emi Babb RN Outcome: Met this shift Emi Babb RN - 06/20/2022 9:43 PM CDT Problem: Falls/Injury-Risk of Goal: Absence of Falls/Injury Outcome: Met this shift Problem: Pressure Injury - Risk of Goal: Absence of pressure injury Outcome: Met this shift Anahi Guido RN - 06/20/2022 3:48 PM CDT Problem: Falls/Injury-Risk of Goal: Absence of Falls/Injury Outcome: Met this shift Problem: Pressure Injury - Risk of Goal: Absence of pressure injury Outcome: Met this shift JACI Cornejo - 06/20/2022 1:59 PM CDT Problem: Discharge Planning Goal: Establish appropriate post-hospitalization placement Outcome: Ongoing Flowsheets (Taken 06/20/2022 [id number]) Date of Last CM Visit: 06/20/22 Care Management - Progress Note Patient's chart reviewed. Patient discussed in rounds. Assessment: Admitted for evaluation of fall sustaining C5 fx. NSGY following- plan for [place] collar x3 months. Anticipated Discharge Date: likely tomorrow Anticipated Discharge Needs: Home with 24/7 support, Home Care Potential Barriers: Medical Stability Care Coordination Plan & Communication with Patient/Family: Therapies recommending home with 24/7 support and home care. Per discussion with trauma provider Kaela, between dtr and son they are able to provide 24/7 support. In basket to [facility] sent regarding home care at d/c. COVID Test Result: No results found for: [id number], [id number], [id number], [id number] ANN Lo, JACI 06/20/2022 2:01 PM Barbra Sanchez, OT - 06/20/2022 1:09 PM CDT Occupational Therapy Functional Treatment Patient Name: Sara Barillas Today's Date: 06/20/2022 ASSESSMENT/PLAN/RECOMMENDATIONS Assessment/Plan/Recommendations OT Assessment Results: Impaired ADLs, Impaired IADLs, Impaired strength, impaired UE function, Impaired endurance Strengths: Good family support, Supportive living environment, Patient motivation, Patient cooperation Limitations/Discharge Barriers: Current medical status, Needs assist with ADL, Decreased strength, Decreased activity tolerance, Decreased coordination OT Discharge Recommendations: Home with 24/7 Supervision Additional OT Services Upon Discharge: Home Health Care OT, Outpatient OT Patient Progress: Pt seen in room for OT treatment session. Completed bed mobility independently, SBA provided while seated EOB secondary to mild impulsivitiy. 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 Provided pt with AE to assist with se lf feeding and additional ADL tasks with demonstrated understanding. Further provided pt with theraputty to assist with improving BUE custom shoe designer and maker strength and coordination. Continue to follow to address goalsstated in OT POC. Recommend d/c home with 24/7 supervision and homecare vs OP OT. Recommendations For Next Session: Pegboard, bilateral coordination tasks, ADLs at sink GENERAL General Visit Type: Treatment Onset Date: 06/18/22 Diagnosis: C5 pedicle fracture Admission/Diagnosis Details: presents to [facility] ED following fall out of bed this morning. He was unable to get up, his son had to come over and assist . [facility] with associated burning pain to bilateral upper extremities. CT head negative at OSH. He is currently endorsing pain to neck and upper extremities>lower, better with pain medication and rest. Pertinent Past Medical History: congestive heart failure, CAD with prior STEMI status post CABG x2, hypertension and alcohol abuse Patient Seen In: Room Family/Caregiver Present: No Lines and Tubes: Urban Catheter Subjective (Comment): Pt reporting mild frustration due to wait time to shave face, though agreeableto participate in therapy. PRECAUTIONS Precautions Devices/Equipment Required: [place] Collar Precautions: Maintain head and neck in neutral Precautions Comments: [place] at all times SAFETY INTERVENTIONS Safety Interventions Fall Risk?: Yes Safety Interventions/Patient Disposition: Standard interventions, Bed alarm on, In bed, Call light in hand, All needs within reach, RN notified, Direct handoff to another provider (RN in room) PATIENT IS FUNCTIONING FOLLOWS: Current ADL and IADL Status Current ADL Status Equipment Provided: Button hook, Feeding equipment ADL Comments: Provided pt with button hook and adaptive/built-up silverware and button hook to assist with independence in ADL tasks. Demosntrated understanding. Additionally, demonstrated ability to doff/don bilateral socks without assistance while seated EOB. Functional Mobility Bed Mobility Supine to Sit: Independent Dangling: SBA Therapeutic Exercise UE Exercise: As a method to improve BUE custom shoe designer and maker strength and coordination for functional use during ADL/IADL tasks, pt provided with theraputty and HEP. Demonstrated understanding. Activity Tolerance Endurance: Participates 20-30 min of therapy session Upper Extremity Function Hand Function Right Hand Function: Impaired Right Water Use Inspector: 13# Right Hand 9-Hole Peg Test: 61.9 seconds Left Hand Function: Impaired Left Water Use Inspector: 22# Left 9-Hole Peg Test: 56.8 seconds AM-PAC Outcome Measure 6 Clicks Daily ADL AM-PAC Putting on and taking off regular lower body clothing?: A Lot Bathing (including washing, rinsing, drying)?: A Lot Toileting, which includes using toilet, bedpan or urinal?: A Lot Putting on and taking off regular upper body clothing?: A Little Taking care of personal grooming such as brushing teeth?: A Little Eating meals?: A Little AM-PAC Daily Activity Raw Score: 15 AM-PAC Daily Activity CMS 0-100% Score: 56.46 AM-PAC Daily Activity t-Scale Score: 34.69 The following scores are predictive of discharge disposition during acute hospitalization: Home= 20.1; Home with Home Health= 17.9; TCU=14; IRF=13.6; LTACH=11.5 Please refer to narrative for assessment of functional performance and discharge recommendations as scores may not always reflect mobility, cognitive aspects of performance or instrumental activities of daily living (IADLs) PATIENT EDUCATION Patient Education Patient Education: Role of OT, Plan of care, Discharge recommendations TIME SPENT WITH PATIENT OT Timed Code Treatment Minutes OT Self-Care/Home Management: 15 OT Therapeutic Exercise: 15 OT Total Minutes Spent with Patient Total Minutes Spent With Patient (billable): 30 Minutes GOALS Time Frame Short term goals target date: 06/22/22 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 goals target date: 06/25/22 STG Grooming Patient will complete daily grooming and light hygiene task: with supervision, with compensatory strategies Outcome: Goal Ongoing STG UE Dressing Patient will dress upper body donning/doffing: button down shirt, with minimal assist Outcome: Goal Ongoing STG LE Dressing Patient will dress lower body donning/doffing: underwear, pants, socks, shoes, with minimal assist, with compensatory strategies Outcome: Goal Ongoing STG Upper Extremity (UE) As a method to improve strength/endurance for functional independence with ADLs, IADLs, functional mobility, and home safety, patient will complete home exercise program: using progressive resistive exercises, fine motor coordination, gross motor coordination, with verbal cues Outcome: Goal Ongoing Halfway Goals Patient will complete ADLs including: feeding, dressing, hygiene/grooming, toileting, with set-up/supervision Outcome: Goal Ongoing Ayleen Salmon, PT - 06/20/2022 10:42 AM CDT Acute Physical Therapy Treatment Patient Name: Sara Barillas Today's Date: 06/20/2022 Admission Date: 06/18/2022 Precautions Precautions Devices/Equipment Required: [place] Collar Precautions: Maintain head and neck in neutral Precautions Comments: [place] at all times Assessment PT Assessment/Recommendations Assessment: Patient pleasant and motivated to work with therapies. Pt often impulsive throughout session, discussed risk of falls and safety with mobility. Ambulated two bouts x 300 ft with RW and CGA.Navigated 10 steps with CGA and one episode of LOB that required mod A from therapist. From a mobility standpoint pt appropriate to d/c home with 09/06 supervision, use of RW for mobility and physical assist for stair navigation. However concerns for falls risk and safety d/t cognition and pt lack of insight into deficits. Recommendations for Nursing: Mobilize assist of 1 with gait belt, Up to chair 2- 3x/day, Ambulate 2-3x/day, Use of assistive device with mobility Type of Assistive Device: FWW Recommended Discharge Disposition: Home with 09/06 supervision Recommended Continued PT Upon Discharge: Home health PT Equipment Recommended for Home: Rolling walker, Shower chair Equipment Issued: None (pt states he owns all needed DME) Encounter Details General Diagnosis: C5 pedicle fracture Admission/Diagnosis Details: presents to [facility] ED following fall out of bed this morning. He was unable to get up, his son had to come over and assist . [facility] with associated burning pain to bilateral upper extremities. CT head negative at OSH. He is currently endorsing pain to neck and upper extremities>lower, better with pain medication and rest. Pertinent Past Medical History: congestive heart failure, CAD with prior STEMI status post CABG x2, hypertension and alcohol abuse Patient Seen In: Room Family/Caregiver Present: No Subjective Comments: Pt alert and agreeable to therapy. Lines and Tubes: Urban Catheter Subjective/Social History Home Setup Type of Home: Apartment Lives With: Spouse Home Layout: Two level Home Entry: Stairs to enter without rails Number of stairs: 3 Stairs within Home: Stairs with rails Rails: Unilateral Number of stairs: 5 Comment: Pt reports living with spouse in apartment which is connecting to [facility] house Prior Level of Functional Mobility Independent with: All Mobility Needs Assistance with: ADLs, IADLs Mobility Equipment Used: None DME owned: Rolling walker, Tub bench History of falls: yes, less than 1 month ago Comment: pt does not use AD at baseline but has one from previous injuries Pain Patient complained of back pain during second bout of ambulation. Objective Cognitive Status Arousal/Alertness: Appropriate responses to stimuli Following Commands: Follows multistep commands Safety Judgment: Verbal cues needed for safety, Impaired Motor Planning/Processing: Cues to initiate tasks Cognition Comments: Concerns about safety awareness with extensive education about risk of falls andimportance of safety with mobility Therapeutic Activity Bed Mobility Bed Mobility Supine to Sit: Modified independent Sit to Supine: Modified independent Dangling: Modified independent Bridging/Repositioning: Modified independent Scooting: Modified independent Setup/Equipment: Bed rail, HOB elevated Transfers Sit to/from Stand Level of Assist: Modified independent Assistive Device: Rolling walker Miscellaneous Therapeutic Activity Therapeutic Activity: Activity 1 Activity 1: STS x 10 reps for LE strengthening without UE support Gait Training Ambulation Bout 1 Surface: Level anthony Complexity: Forward stepping Distance (ft): 300 x 300 ft Assistive Device: Rolling walker Level of Assist: Contact guard/steadying assist Quality of Gait: forward flexed posture and decreased walker proximity, able to adjust with verbal cues but does not maintain position for long Comments: Pt impulsive with ambulation, ambulates with increased gait speed and will run into objects Stairs Bout 1 Method: Ambulation Number of Stairs: 10 UE Support: Unilateral Rail Level of Assist: Moderate assist, Contact guard/steadying assist Pattern: Reciprocal, Step to (reciprocal ascending and step to descending) Comments: Pt unsteady with stairs and impulsive, attempts to step up without entire foot on step - requires therapist assist to regain balance. Reports he does not have a rail at home but his son couldget one installed. Does not need to bring walker onto stairs as pt has two walkers he uses. [facility] AM-PAC 6-Clicks Turning over in bed (including adjusting bed clothes, sheets, and blankets): Modified independent/independent Sitting down and standing up from a chair with arms: Modified independent/independent Moving from lying on back to sitting on the side of bed: Modified independent/independent Moving to and from a bed to a chair: Minimum/contact guard/standby assist Walk in hospital room?: Minimum/contact guard/standby assist Climbing 3-5 steps with a railing: Minimum/contact guard/standby assist AM-PAC 6 Clicks: Mobility Total Score: 21 The following scores are predictive of discharge disposition during acute hospitalization: Home= 20 or greater; Home with Home Health=18; Continued skilled care at appropriate facility= 14 or less. Education/Safety Education Provided Patient Education: Transfers, Ambulation, Safe use of assistive device, Plan of care Family Education: Family not present Safety Interventions Fall Risk?: Yes Safety Interventions/Patient Disposition: Standard interventions, Bed alarm on, In bed, Call light in hand, All needs within reach GOALS-The interventions during this session were provided to address the goals set forth on evaluation and are ongoing unless otherwise indicated. Time Frame Goals target date: 07/03/22 TIME SPENT WITH PATIENT PT Timed Code Treatment Minutes (outside of evaluation) PT Therapeutic Activity: 8 PT Gait Trainin PT Timed Code Treatment Minutes PT Total Billable Minutes: 28 Minutes Emi Babb RN - 06/20/2022 12:53 AM CDT Problem: Falls/Injury-Risk of Goal: Absence of Falls/Injury Outcome: Met this shift Problem: Pressure Injury - Risk of Goal: Absence of pressure injury Outcome: Met this shift Adeola Arguello RN - 06/19/2022 9:44 PM CDT Problem: Falls/Injury-Risk of Goal: Absence of Falls/Injury Outcome: Met this shift Flowsheets Taken 06/19/20222038 by Ángel Evans Environmental Safety Interventions: Standard Interventions in Place Mobility Safety Interventions: Standard Interventions in Place Elimination Safety Interventions: Standard Interventions in Place Taken 06/19/2022 1641 by Adeola Arguello RN Medication: Standard Interventions in Place Taken 06/19/2022 1000 by Anahi Guido RN Consults: Occupational Therapy (Requires MD Order) Social Service Consult Physical Therapy (Requires MD Order) Problem: Communication Goal: Demonstrates/exhibits ability to communicate needs effectively Outcome: Met this shift Problem: Pain Goal: Exhibits reduction in pain to a level of acceptable comfort Outcome: Met this shift JACI Cronejo - 06/19/2022 2:00 PM CDT Problem: Discharge Planning Goal: Establish appropriate post-hospitalization placement Outcome: Ongoing Flowsheets (Taken 06/19/2022 1400) Date of Last CM Visit: 06/19/22 Discharge Planning Initial Assessment Patients chart reviewed. Patient discussed in rounds. Admitting diagnoses: C5 pedicle fracture (HCC) [S12.490A] Admitted from: Home Prior Living Arrangements: Spouse/significant other Support Systems: Spouse/significant other;Family members;Children Primary decision maker: Patient DME prior to admission: cane, walker Anticipated Discharge Needs: TBD Care coordination initiated: Admitted for evaluation of fall sustaining C5 fx. NSGY following-plan for [place]. SW met with pt at bedside to introduce self, role of SW and to establish baseline measures.Pt lives with his in an apartment connected to his son's house near [place] at baseline. Pt reported a hx of frequent falls and a recent hospiliziation at [facility] for 'heart issues.' Pt noted that he has been using a cane and walker since d/c home from [facility]. Pt reported support from his son Grayson and his family ( and two children) that live next door, his dtr that lives in [place] and his youngest son Roberto who lives 'in [facility] [address] Conversation with pt cut short as Dr. Ng with NSGY a rrived to discuss C5 fx and treatment course with pt. Obstetrics Teacher notified [facility] of pt's status. PT/OT to see. Discharge needs to be determined pending hospital course and therapy recommendations. ETOH and daily THC use will be a barrier to TCU placement if recommended. Barriers to discharge: Medical Stability COVID Test Result: No results found for: [id number], [id number], [id number], [id number], [id number] Care management will continue to follow. ANN Lo, JACI 06/19/2022 2:11 PM Anahi Guido RN - 06/19/2022 10:38 AM CDT Problem: Falls/Injury-Risk of Goal: Absence of Falls/Injury Outcome: Met this shift Problem: Pressure Injury - Risk of Goal: Absence of pressure injury Outcome: Met this shift Emi Babb RN - 06/19/2022 1:40 AM CDT Problem: Falls/Injury-Risk of Goal: Absence of Falls/Injury Outcome: Met this shift Problem: Pressure Injury - Risk of Goal: Absence of pressure injury Outcome: Met this shift Connie Collins RN - 06/18/2022 6:28 PM CDT Problem: Falls/Injury-Risk of Goal: Absence of Falls/Injury Outcome: Met this shift Problem: Pressure Injury - Risk of Goal: Absence of pressure injury Outcome: Met this shift documented in this encounter ED Notes Tony Jeffery RN - 06/18/2022 4:06 PM CDT MRI checklist completed. Report given to [id number] RN. EDT to transport patient upstairs. Brenda Fair MD - 06/18/2022 12:50 PM CDT CHIEF COMPLAINT: Fall HPI: Initial history obtained at 12:50 PM 06/18/22. Sara Barillas is a 72 y.o. male with a history of alcohol abuse, CHF, atrial fibrillation on apixiaban, CKD and hypertension who presents to the emergency department via EMS in transfer for evaluation of a fall. The patient comes from [facility] ED for evaluation after following out of his bed around 11:00 PM last night. The patient reports that he was drinking and is unsure exactly whathappened, however, he states that he fell out of bed onto his right side and struck his head on the floor or his nightstand. On initial examination, he denied any loss of conciousness but complained ofbilateral pain in his feet and hands and an altered sensation in these areas. Also of note, he had a hematoma on the top of his head. He denied any fever, chills, diaphoresis, nausea, vomiting, abdominal pain, chest pain, shortness of breath, back pain, or urinary changes. During his stay at [place], he had a CT scan of his neck that revealed a lamina fracture at his C5 vertebra. The CT of his head was normal. Now here in the ED, he complains of a burning sensation and pain in his wrist and handsas well as pain in his right elbow. MEDICATIONS: Aspirin 325 mg tablet Atorvastatin 80 mg tablet Fluticasone propionate 50 mcg/actuation nasal spray, suspension Isosorbide mononitrate 30 mg tablet Lisinopril 10 mg Hyrochlorothiazide 12.5 mg tablet Loratadine (Allerclear) 10 mg tablet Metoprolol tartrate (Lopressor) 50 mg tablet Nitroglycerine 0.4 mg sublingual tablet Pantoprazole 20 mg tablet Amiodarone Apixaban 5 mg tablet ALLERGIES: No Known Allergies PAST MEDICAL HISTORY: Alcohol abuse Arteriosclerosis of coronary artery Atrial fibrillation CHF CKD GERD Heart attack Hypertension Rheumatoid arteritis PAST SURGICAL HISTORY: Total knee replacement Coronary angioplasty SOCIAL HISTORY: The patient presents alone. He smokes marijuana daily and drinks approximately 4-6 ounces of alcoholdaily. REVIEW OF SYSTEMS: Review of Systems Constitutional: Negative for chills, diaphoresis and fever. Respiratory: Negative for shortness of breath. Cardiovascular: Negative for chest pain. Gastrointestinal: Negative for abdominal pain, nausea and vomiting. Genitourinary: Negative for difficulty urinating, dysuria, frequency and hematuria. Musculoskeletal: Positive for arthralgias (hands, right elbow) and myalgias (hands, right elbow). Negative for back pain. Skin: Positive for hematoma (head). All other systems reviewed and are negative. PHYSICAL EXAM: Physical Exam Temperature: 98.4 ??F (36.9 ??C) HR: 83 Respirations: 16 BP: 127/83 SpO2: 92 % General - Laying still. HEENT - Head - Normocephalic. Abrasion with dried blood to superior scalp. Eyes - PERRL, no pallor, jaundice Mouth - Mucous membranes moist Neck - Cervical collar in place. CVS - RRR, no murmur. Radial pulses are 2 plus bilaterally. Pulm - Breath sounds clear bilaterally, no respiratory distress GI - Abdomen soft, non-distended, no focal tenderness, no rebound or guarding. No pain to palpation of pelvis. MSK - Pain to palpation of the right elbow posteriorly with small ecchymosis, holds right elbow flexed at 90 degrees, pain with movement of the arms. Pain to palpation of the bilateral wrist and hands,no obvious bony deformity. No pain to palpation of BLE. No thoracic or lumbar tenderness. Skin - Warm, well perfused, no rash. Abrasion with dried blood to superior scalp. Neuro - Awake, alert, answers questions appropriately. LT intact in BUE with significant discomfort to palpation of hands. SILT decreased in bilateral lower extremities. Wiggles fingers and toes bilaterally to command. Psych- Normal affect and behavior ED COURSE: Laboratory: Labs Reviewed EXTRA TUBE-BLOOD BANK (LAB USE ONLY) EXTRA TUBE-EDTA (LAB USE ONLY) EXTRA TUBE-SST (LAB USE ONLY) EXTRA TUBE PST (LAB USE ONLY) EXTRA TUBE-COAG (LAB USE ONLY) Imaging: CT OUTSIDE SPINE STUDY Final Result CT OUTSIDE HEAD STUDY Final Result CT OUTSIDE HEAD STUDY Final Result XRAY ELBOW RIGHT (Results Pending) XRAY CHEST PA (Results Pending) XR WRIST 3 VW BILAT (Results Pending) XR HAND 3 VW BILAT (Results Pending) CT ANGIO NECK (Results Pending) MRI SPINE CERVICAL W/O CON (Results Pending) Interventions: Medications Pharmacy Medication Review Consult (has no administration in time range) acetaminophen (TYLENOL) tablet 1,000 mg (1,000 mg oral Given 06/18/22 1453) Or acetaminophen (TYLENOL) rectal suppository 650 mg ( Rectal See Alternative 06/18/22 1453) lidocaine 4% (Salonpas) adhesive patch, medicated 1-3 patch (has no administration in time range) methocarbamoL (ROBAXIN) tablet 250-500 mg (500 mg oral Given 06/18/22 1453) gabapentin (NEURONTIN) capsule 100 mg (100 mg oral Given 06/18/22 1455) oxyCODONE (immediate release) (ROXICODONE) tablet 2.5-5 mg (5 mg oral Given 06/18/22 1455) HYDROmorphone (DILAUDID) syringe 0.2-0.4 mg (0.2 mg Intravenous Given 06/18/22 1425) diphtheria-acell pertussis-tetanus toxoids (greater than or equal to 10 years of age) (BOOSTRIX) injection 0.5 mL (has no administration in time range) Notable Events: Reviewed: 1245: I reviewed the patient's vital signs, past medical history, previous medical charts and nursing notes. Assessments: 12:50 PM: I performed initial history and physical exam of the patient. 1325: I re-evaluated the patient. ED Vitals: Patient Vitals for the past 24 hrs: BP Temp Pulse Resp SpO2 06/18/22 1500 122/77 -- 78 -- 91 % 06/18/22 1330 (!) 155/88 -- 83 -- 92 % 06/18/22 1315 133/75 -- 76 -- -- 06/18/22 1300 116/85 -- 82 -- 92 % 06/18/22 1256 127/83 98.4 ??F (36.9 ??C) 83 16 92 % 06/18/22 1245 127/83 -- 83 -- 92 % MDM: Sara Barillas is a 72 y.o. male with a history of alcohol abuse, CHF, atrial fibrillation on apixiaban, CKD and hypertension who presents to the emergency department via EMS in transfer for evaluation of a fall. Differential diagnosis includes cervical spine fracture, vertebral dissection, other vascular injury, other occult injury, peripheral neuropathy, among others. Patient sustained a fall overnight from bed in the setting of alcohol use, so does not recall all the details from this. He was found to have a C5 lamina fracture with paresthesias, which he reports is new from the fall. Patient drinks alcohol regularly and states he has been in alcohol withdrawal before. He denies any history of seizures. He has an abrasion to his scalp that does not require repair. Tetanus was reviewed and none noted on review, so this has been ordered. Work up reviewed from [place]: EKG with SR, CT head and c-spine, COVID/Flu/RSV test, drug screen, labs including CBC, BMP, etoh, ionized calcium, liver panel, PTT, PT/INR, troponin. WBC 11.3. [place] has been sent on arrival here, as labs have been done prior to arrival. He has pain to palpation of his elbow and wrists/hands. I considered whether this is related to his neck injury, but he is tender on exam. XR ordered. I have ordered CXR as well given sats in low 90s and unclear history regarding fall in setting of etoh. I discussed the patient with trauma surgery, Dr. Saini and Judith Sidhu PA-C. Neurosurgery was called by trauma. As discussed, CT angiogram of the neck has been ordered. The patient will be admitted to the trauma team for further management. COVID- 19/flu/RSV testing was performed prior to arrival, so I have not ordered this foradmission here, as discussed with Judith Sidhu. DIAGNOSIS: ICD-10-CM 1. Other closed displaced fracture of fifth cervical vertebra, initial encounter ([facility]) S12.490A 2. Closed head injury, initial encounter S09.90XA 3. Abrasion of scalp, initial encounter S00.01XA 4. Paresthesia R20.2 5. Bilateral arm pain M79.601 M79.602 DISPOSITION: Admit to the care of Dr. Saini. New Prescriptions No medications on file ATTESTATION: Scribe Attestation: I, Shane Flores, am serving as a scribe to document services personally performed by Ravinder Fair MD, based on my observations and the provider's statements to me. Provider Attestation: Portions of this medical record were completed by a scribe. UPON MY REVIEW AND AUTHENTICATION BY ELECTRONIC SIGNATURE, this confirms (a) I performed the applicable clinical services, and (b) the recordis accurate. Brenda Fair MD 06/18/22 06/18/2022 [facility] EMERGENCY DEPARTMENT Ayleen Valencia RN - 06/18/2022 12:48 PM CDT Reviewed transfer note, pt VSS upon arrival. Pt was given morphine and zofran AUDIT ASSOCIATE. Pt vomited x1 after the morphine. Pt has tingling/numbness/burning in bilateral wrists to his hands. Pt in 10/10 pain upon arrival. Alert and oriented x4. Carl Montero MD - 06/18/2022 11:11 AM CDT Transfer to [facility] Information Transferring facility: [facility] EDMD taking transfer request: Winston Kaufman MD / specialist notified: Dr. Saini Special needs / direction: Continued C-spine immobilization. Description of Illness / Injury: 72-year-old male, fell out of bed, 11 PM 06/17/2022. Upper and lower extremity paresthesias and weakness. CTA neck reveals lamina fracture at C5. CTA head negative. Carl Montero MD, FACEP Staff Emergency Physician [facility] documented in this encounter Miscellaneous Notes Med Reconciliation - Jacklyn Lamar Shayna - 06/18/2022 2:57 PM CDT PHARMACY MEDICATION RECONCILIATION NOTE MEDICATION RECONCILIATION on admission by pharmacy has been completed. Prior to admission medications were reviewed with [facility] records and the patient. The AUDIT ASSOCIATE medication list has been updated and reflected in the chart below. Please use the AUDIT ASSOCIATE medication section for ordering home doses during admission. Medication related issues 1. Added all meds to AUDIT ASSOCIATE according to [facility] records. 2. Isosorbide - most recent fill from 03/08 for 30 ds, 3 refills remaining. Marked as not taking due to within 6 month range. 3. Sulfasalazine - most recent fill from 01/15 for 90 ds, 1 refill remaining. Marked as not taking dueto within 6 month range. Medications requiring detailed history: DOAC: Eliquis 5 mg - take 5 mg by mouth twice a day. Last dose = yesterday afternoon (06/17) at about 1500. PRIOR TO ADMISSION MEDICATION LIST: Prior to Admission Medications Prescriptions Last Dose Informant Patient Reported? Taking? Adalimumab 40 mg/0.8 mL SubQ injection 06/15/2022 Patient Yes Yes Sig: Inject 40 mg under the skin every 14 (fourteen) days. Carboxymethylcellulose Sodium 0.25 % Opht Drop PRN Patient Yes Yes Sig: Instill 1 drop into EACH eye every 6 (six) hours as needed. acetaminophen (TYLENOL) 500 mg oral tablet PRN Patient Yes Yes Sig: Take 1,000 mg by mouth every 6 (six) hours as needed. amiodarone (CORDARONE) 200 mg oral tablet 06/17/2022 Patient Yes Yes Sig: Take 200 mg by mouth once daily. apixaban (ELIQUIS) 5 mg oral tablet 06/17/2022 x2 Patient Yes Yes Sig: Take 5 mg by mouth twice a day. aspirin 81 mg oral enteric coated tablet 06/17/2022 Patient Yes Yes Sig: Take 81 mg by mouth once daily. atorvastatin (LIPITOR) 80 mg oral tablet 06/17/2022 Patient Yes Yes Sig: Take 80 mg by mouth once daily. cholecalciferol, vitamin D3, 25 mcg, 1000 unit, 25 mcg (1,000 unit) oral tablet 06/17/2022 Patient YesYes Sig: Take 25 mcg by mouth once daily. cyanocobalamin 1,000 mcg oral tablet 06/17/2022 Patient Yes Yes Sig: Take 1,000 mcg by mouth once daily. fluticasone (FLONASE) 50 mcg/actuation nasal spray PRN Patient Yes Yes Sig: Instill 1 spray into EACH nare ONCE DAILY. folic acid (FOLVITE) 1 mg oral tablet 06/17/2022 Patient Yes Yes Sig: Take 1 mg by mouth once daily. isosorbide mononitrate (IMDUR) 60 mg oral extended release tablet 24 HR Not Taking Patient Yes No Sig: Take 30 mg by mouth once daily. loratadine (CLARITIN) 10 mg oral tablet 06/17/2022 Patient Yes Yes Sig: Take 10 mg by mouth once daily. metoprolol tartrate (LOPRESSOR) 50 mg oral tablet 06/17/2022 x2 Patient Yes Yes Sig: Take 50 mg by mouth twice a day. pantoprazole (PROTONIX) 40 mg oral delayed release tablet 06/17/2022 Patient Yes Yes Sig: Take 40 mg by mouth once daily. predniSONE (DELTASONE) 10 mg oral tablet 06/17/2022 Patient Yes Yes Sig: Take 10 mg by mouth once daily. sulfaSALAzine (AZULFIDINE) 500 mg oral tablet Not Taking Patient Yes No Sig: Take 1,000 mg by mouth twice a day. Facility-Administered Medications: None This patient obtains medications from [facility] - [place], [place] - [facility]. Thank you for the opportunity to participate in the care of this patient. Jacklyn Cardenas, Ekg Manager Phone #:[phone] or [phone] Time spent reconciling meds:15 min Location: face to face encounter Associated attestation - Diana Feliciano (April)Cristóbal - 06/18/2022 4:00 PM CDT Reviewed pharmacy medication reconciliation note by student, agree with note. Thank you. documented in this encounter Plan of Treatment Scheduled Referrals Name Type Priority Associated Diagnoses Order S chedule Follow Up Follow Up Routine Ordered: 2021 Follow Up Follow Up Routine Ordered: 2021 Follow Up Follow Up Routine Ordered: 2021 documented as of this encounter Procedures Procedure Name Priority Date/Time Associated Comments Diagnosis CREATININE EGFR Add On 06/24/2022 7:13 AM Result s for this CDT procedure are i n the results section. HEMOGLOBIN Routine 06/24/2022 7:13 AM Results f or this CDT procedure are i n the results section. EXTRA TUBE PST Routine 06/24/2022 7:13 AM CDT HEMOGLOBIN Routine 06/23/2022 5:37 AM Results f or this CDT procedure are i n the results section. URINALYSIS MICROSCOPY Routine 06/21/2022 3:09 AM Results for this (LAB USE ONLY) CDT procedure are in the results section. URINALYSIS Routine 06/21/2022 3:09 AM Results f or this MACROSCOPIC W/ CDT procedure are in MICROSCOPY, IF the results INDICATED (DOES NOT section. INC CULTURE) CULT-URINE Add On 06/21/2022 3:09 AM Results f or this CDT procedure are i n the results section. MAGNESIUM Routine 06/20/2022 6:26 AM Results f or this CDT procedure are i n the results section. CREATININE EGFR Routine 06/20/2022 6:26 AM Result [...] HEAD STUDY STAT 06/17/2022 12:00 AM CDT documented in this encounter Results (ABNORMAL) Creatinine / eGFR (06/24/2022 7:13 AM CDT)Only the most recent of2 resultswithin the time period is included. Analysis Performed At Patho logis Time Signature CREATININE 1.18 (H) 0.60 - ATELLICA 06/24/2022 [facility] 1.10 ANALYZER 10:49 AM CDT HEALTH mg/dL LABORATORY EST GFR >60.00 >60.00 ATELLICA 06/24/2022 [facility] (CKD-EPI) mL/min/1. ANALYZER 10:49 AM CDT HEALTH 73m2 LABORATORY Comment: Calculation based on the Chroni c Kidney Disease Epidemiology Collaboration (CKD-EPI) equation refit without adjustm ent for race. Specimen Anatomical Collection Method Collection Time Receive d Time (Source) Location / / Volume Laterality Blood 06/24/2022 7:13 AM 2 7:39 CDT AM CDT Molly Ambrocio D CHEMISTRY ORDERABLE Performing Organization Address City/[facility]/ZIP Code Phon e Number [address] [place] [address] LABORATORY Extra Tube PST (Lab Use Only) (06/24/2022 7:13 AM CDT) Specimen Anatomical Collection Method Collection Time Receive d Time (Source) Location / / Volume Laterality Blood 06/24/2022 7:13 AM 2 7:39 CDT AM CDT Megan Moreno RN CHEMISTRY ORDERABLE Performing Organization Address City/[facility]/ZIP Code Phon e Number [address] [place] [address] LABORATORY (ABNORMAL) Hemoglobin (06/24/2022 7:13 AM CDT)Only the most recent of2 results within the time period is included. P athologist Signature HEMOGLOBIN 11.6 (L) 14.0 - 06/24/2022 [facility] 18.0 gm/dL 7:42 AM CDT HEALTH LABORATORY Specimen Anatomical Collection Method Collection Time Receive d Time (Source) Location / / Volume Laterality Blood Butterfly / 06/24/2022 7:13 AM 2 7:29 Unknown CDT AM CDT Melo Foley PA-C HEMATOLOGY ORDERABLE Performing Organization Address City/[facility]/ZIP Code Phon e Number [address] [place] [address] LABORATORY (ABNORMAL) Urine Culture (06/21/2022 3:09 AM CDT) Patholo gist Method Time Signature Urine Culture 50,000 - MARYLOU 06/24/2022 [facility] 100,000 7:48 AM CDT HEALTH cfu/ml of LABORATORY Staph. sp. not S.aureus (A) Specimen Anatomical Collection Method Collection Time Receive d Time (Source) Location / / Volume Laterality Urine URINE SPECIMEN 06/21/2022 3:09 AM 022 3:11 OBTAINED VIA CDT AM CDT INDWELLING URINARY CATHETER / Unknown Narrative [facility] LABORATORY - 06/24 7:48 AM CDT For [...] APRN, CNP MICROBIOLOGY ORDERABLE Performing Organization Address City/[facility] Phon e Number [facility] [address] [place] [address] LABORATORY (ABNORMAL) Urinalysis Microscopy (Lab Use Only) (06/21/2022 3:09 AM CDT) [facility] gist Method Time Signature WBC-UA MICRO 1-4 None Seen, 06/21/2022 [facility] Occasional 3:44 AM CDT HEALTH , Few, 1-4 LABORATORY /hpf RBC-UA Packed None Seen, 06/21/2022 [facility] Field (A) Occasional 3:44 AM CDT HEALTH , 1-2 /hpf LABORATORY Specimen Anatomical Collection Method Collection Time Receive d Time (Source) Location / / Volume Laterality Urine URINE SPECIMEN 06/21/2022 3:09 AM 022 3:11 OBTAINED VIA CDT AM CDT INDWELLING URINARY CATHETER / Unknown Faby Hubbard APRN, CNP URINE ORDERABLE Performing Organization Address City/State/ZIP Code Phon e Number [facility] [address] [address] LABORATORY (ABNORMAL) Urinalysis Macroscopic w/ Microscopy, if indicated (Does not inc culture) (06/21/2022 3:09 AM CDT) [facility] Method Time Signature GLUCOSE, UA Negative Negative 06/21/2022 [place] mg/dL 3:44 AM [facility] KETONE, UA Negative Negative 06/21/2022 [place] mg/dL 3:44 AM [facility] BILIRUBIN, UA Small (A) Negative 06/21/2022 [place] 3:44 AM [facility] PROTEIN, UA 30 (A) Negative 06/21/2022 [place] mg/dL 3:44 AM [facility] OCCULT BLOOD, Large (A) Negative, 06/21/2022 [place] UA Trace 3:44 AM [facility] WBC ESTERASE, Moderate (A) Negative, 06/21/2022 [place] UA Trace 3:44 AM [facility] NITRITE, UA Negative Negative 06/21/2022 [place] 3:44 AM [facility] pH Urine 6.0 5.0 - 8.0 06/21/2022 [place] 3:44 AM [facility] Specific 1.010 (A) 1.015 - 06/21/2022 [place], UA 1.025 3:44 AM [facility] Urobilinogen, 0.2 0.2 - 1.0 06/21/2022 [place] UA EU/dL 3:44 AM [facility] Specimen Anatomical Collection Method Collection Time Receive d Time (Source) Location / / Volume Laterality Urine URINE SPECIMEN 06/21/2022 3:09 AM 022 3:11 OBTAINED VIA CDT AM CDT INDWELLING URINARY CATHETER / Unknown Faby Hubbard APRN, ADAM URINE ORDERABLE Performing Organization Address City/State/ZIP Code Phon e Number [facility] [address] [address] LABORATORY Magnesium (06/20/2022 6:26 AM CDT)Only the most recent of2 resultswithin the time period is included. athologist Signature Magnesium 1.6 1.6 - 2.6 [facility] 06/20/2022 [facility] mg/dL ANALYZER 7:22 AM [facility] LABORATORY Specimen Anatomical Collection Method Collection Time Receive d Time (Source) Location / / Volume Laterality Blood 06/20/2022 6:26 AM 2 6:58 CDT AM CDT Judith GARCIA-C CHEMISTRY ORDERABLE Performing Organization Address City/[facility]/ZIP Code Phon e Number [facility] [address] [place], [place] [address] [address] [phone] LABORATORY Potassium, Serum (06/20/2022 6:26 AM CDT) athologist Signature POTASSIUM 4.2 3.4 - 5.1 [facility]22 [facility] mmol/L ANALYZER 7:15 AM [facility] LABORATORY Specimen Anatomical Collection Method Collection Time Receive d Time (Source) Location / / Volume Laterality Blood 06/20/2022 6:26 AM 2 6:58 CDT AM CDT Judith GARCIA-Josue CHEMISTRY ORDERABLE Performing Organization Address City/[facility]/ZIP Code Phon e Number [facility] [address] [place] [address] [place] [address] LABORATORY POCT Glucose Meter (06/19/2022 7:55 AM CDT)Only the most recent of3 results within the time period is included. athologist Signature GLUCOSE WB 81 60 - 100 06/19/2022 [facility] METER mg/dL 8:19 AM [facility] LABORATORY Specimen Anatomical Collection Method Collection Time Receive d Time (Source) Location / / Volume Laterality Blood 06/19/2022 7:55 AM 2 8:19 CDT AM CDT Brenda Saini MD LAB POINT OF CARE TEST RESUL TS Performing Organization Address City/[facility]/ZIP Code Phon e Number [facility] [address] [place] [address] LABORATORY (ABNORMAL) Basic Metab Profile (06/19/2022 4:51 AM CDT) P athologist Signature SODIUM 140 136 - 145 [facility]2022 [facility] mmol/L ANALYZER 6:24 AM [facility] LABORATORY POTASSIUM 4.4 3.4 - 5.1 [facility] 06/19/2022 [facility] mmol/L ANALYZER 6:24 AM [facility] LABORATORY Comment: Interpret with caution, specime n slightly hemolyzed. Results may be affected CHLORIDE 107 98 - 108 [facility] 06/19/2022 6:24 [facility] mmol/L ANALYZER AM [facility] LABORATORY CARBON DIOXIDE 22 20 - 31 [facility] 06/19/2022 6:24 [facility] ORIAL mmol/L ANALYZER AM [facility] LABORATORY BUN (UREA NITRO) 19 9 - 23 mg/dL [facility] 06/19/2022 6:24 [facility] ANALYZER AM [facility] LABORATORY CREATININE 1.19 (H) 0.60 - 1.10 [facility] 06/19/2022 6:24 [facility] IAL mg/dL ANALYZER AM [facility] LABORATORY EST GFR >60.00 >60.00 [facility] 06/19/2022 6:24 [facility] (CKD-EPI) mL/min/1.73m ANALYZER AM [facility] 2 LABORATORY Comment: Calculation based on the Chroni c Kidney Disease Epidemiology Collaboration (CKD-EPI) equation refit without adjustm ent for race. GLUCOSE 98 74 - 106 [facility] 06/19/2022 6:24 [facility] mg/dL ANALYZER AM [facility] LABORATORY CALCIUM, SERUM 9.2 8.7 - 10.4 [facility] 06/19/2022 6:24 [facility] MORIAL mg/dL ANALYZER AM [facility] LABORATORY ANION GAP 11.0 0.0 - 15.0 [facility] 06/19/2022 6:24 [facility] mmol/L ANALYZER AM [facility] LABORATORY Specimen Anatomical Collection Method Collection Time Receive d Time (Source) Location / / Volume Laterality Blood 06/19/2022 4:51 AM 5:49 CDT AM CDT Judith Guerrero PA-C CHEMISTRY ORDERABLE Performing Organization Address City/State/ZIP Code Phon e Number [facility] [address] [address] LABORATORY (ABNORMAL) CBC (HGB,HCT,WBC,RBC,Platelet) (06/19/2022 4:51 AM CDT) [facility] gist Method Time Signature WBC 9.2 4.3 - 10.8 06/19/2022 [facility] K/uL 6:00 AM CDT HEALTH LABORATORY RBC 3.53 (L) 4.60 - 06/19/2022 [facility] 6.20 M/uL 6:00 AM CDT HEALTH LABORATORY HEMOGLOBIN 12.4 (L) 14.0 - 06/19/2022 [facility] 18.0 gm/dL 6:00 AM T HEALTH LABORATORY HEMATOCRIT 37.9 (L) 40.0 - 06/19/2022 [facility] 54.0 % 6:00 AM CDT HEALTH LABORATORY MCV 107 (H) 80 - 100 06/19/2022 [facility] fl 6:00 AM CDT HEALTH LABORATORY MCH 35 (H) 27 - 33 pg 06/19/2022 [facility] 6:00 AM CDT HEALTH LABORATORY MCHC 33 33 - 36 06/19/2022 [facility] gm/dL 6:00 AM T HEALTH LABORATORY RDW 14.2 11.5 - 06/19/2022 [facility] 14.5 % 6:00 AM T HEALTH LABORATORY PLATELET COUNT 191 150 - 400 06/19/2022 [facility] K/UL 6:00 AM T HEALTH LABORATORY MPV 10.7 6.5 - 12 06/19/2022 [facility] 6:00 AM T HEALTH LABORATORY Specimen Anatomical Collection Method Collection Time Receive d Time (Source) Location / / Volume Laterality Blood 06/19/2022 4:51 AM 5:51 CDT AM CDT Judith Guerrero PA-C HEMATOLOGY ORDERABLE Performing Organization Address City/State/ZIP Code Phon e Number [facility] [address] [place] [address] LABORATORY MRI SPINE CERVICAL W/O CON (06/18/2022 [...] REPORT SIGNED BY Blane Mendoza M.D. Edna Barragan PA-C MRI ORDERABLE XR SPINE CERVICAL [...] REPORT SIGNED BY Blane Mendoza M.D. Edna Barragan PA-C XRAY ORDERABLE XR WRIST 3 VW BILAT [...] area. REPORT SIGNED BY DR. JOSE LUIS MAHER Narrative 06/18/2022 4:08 PM CDT EXAM: ??XR [...] the bilateral interphalangeal joints. Procedure Note Ede Maher MD - 06/18/2022Forma tting of this note [...] area. REPORT SIGNED BY DR. JOSE LUIS MAHER Brenda Fair MD XRAY ORDERABLE XRAY ELBOW [...] area. REPORT SIGNED BY DR. JOSE LUIS MAHER Narrative 06/18/2022 4:08 PM CDT EXAM: ??XR [...] the bilateral interphalangeal joints. Procedure Note Ede Maher MD - 06/18/2022Forma tting of this note [...] area. REPORT SIGNED BY DR. JOSE LUIS MAHER Brenda Fair MD XRAY ORDERABLE XRAY CHEST [...] or effusion. REPORT SIGNED BY DR. Carlos Brown 06/18/2022 4:06 PM CDT EXAM: XR CHEST [...] No acute bony abnorm ality. Procedure Note Carlos Brink MD - 06/18/2022Fo rmatting of this note [...] fracture. Comparison: Outside CT cervical spine Au 2021 Technique: CT angiography of the neck [...] from the original. Examination: CT Angiography of belgica w ith Contrast 06/18/2022 3:19 PM Indication: Fall on and pelvis. C5 ras a fracture. Comparison: Outside CT cervical spine Au 2021 Technique: CT angiography of the neck [...] / Laterality Volume Study Outside CT ORDERABLE documented in this encounter Visit Diagnoses Diagnosis Other closed displaced fracture of fifth cervical vertebra, initial encounter ([facility]) Closed head injury, initial encounter Abrasion of scalp, initial encounter Paresthesia Disturbance of skin sensation Bilateral arm pain Pain in limb Fall from bed, initial encounter C5 pedicle fracture ([facility]) Closed fracture of fifth cervical verteb ra without mention of spinal cord injury 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, init ([facility]) S/P CABG x 2 Postsurgical aortocoronary bypass status COPD (chronic obstructive pulmonary dise ase) ([facility]) Chronic airway obstruction, not elsewher e classified documented in this encounter Admitting Diagnoses Diagnosis C5 pedicle fracture ([facility]) Closed fracture of fifth cervical verteb ra without mention of spinal cord injury documented in this encounter Administered Medications Inactive Administered Medications - up to 3 most recent administrations Medication Order MAR Action Action Date Dose Rate Site saline FLUSH syringe 10 mL Given 06/24/2022 6:00 AM CDT 10 mL 10 mL, Intravenous, EVERY 8 HOURS, First dose on Fri06/18/22 at 2200, Until Discontinued Given 06/23/2022 10:06 PM CDT 10 mL Given 06/23/2022 2:00 PM CDT 10 mL saline FLUSH syringe 40 mL Given 06/18/2022 3:33 PM CDT 40 mL 40 mL, Intravenous, INTRA-PROCEDURE NEEDED, Starting on Fri06/18/22 at 1533, Until Fri06/19/22 at 0332, Line Care, per procedure acetaminophen (TYLENOL) rectal supposito ry 650 mg 650 mg, Rectal, THREE TIMES A DAY, First dose on Fri at 1400, Until Discontinued acetaminophen (TYLENOL) tablet 1,000 mg Given 06/24/2022 2:57 PM CDT 1,000 mg 1,000 mg, oral, THREE TIMES A DAY, First dose on Fri06/18/22 at 1400, Until Discontinued Given 06/24/2022 8:56 AM CDT 1,000 mg Given 06/23/2022 10:05 PM CDT 1,000 mg amiodarone (CORDARONE) tablet 200 mg Given 06/24/2022 8:55 AM CDT 200 mg 200 mg, oral, DAILY, First dose on Fri06/18/22 at 1700, Until Discontinued Given 06/23/2022 8:30 AM CDT 200 mg Given 06/22/2022 7:52 AM CDT 200 mg apixaban (ELIQUIS) tablet 5 mg Given 06/24/2022 8:55 AM CDT 5 mg 5 mg, oral, TWICE A DAY, First dose on Fri06/20/22 at 2000, Until Discontinued Given 06/23/2022 7:57 PM CDT 5 mg Given 06/23/2022 8:30 AM CDT 5 mg aspirin enteric coated tablet 81 mg Given 06/24/2022 8:55 AM CDT 81 mg 81 mg, oral, DAILY, First dose on Fri06/20/22 at 1545, Until Discontinued Given 06/23/2022 8:30 AM CDT 81 mg Given 06/22/2022 7:52 AM CDT 81 mg atorvastatin (LIPITOR) tablet 80 mg Given 06/24/2022 8:57 AM CDT 80 mg 80 mg, oral, DAILY, First dose on Fri06/18/22 at 1700, Until Discontinued Given 06/23/2022 8:30 AM CDT 80 mg Given 06/22/2022 7:53 AM CDT 80 mg bisacodyl (DULCOLAX) suppository 1 Given 06/20/2022 2:32 PM CDT 1 suppository suppository 1 suppository, Rectal, DAILY NEEDED, Starting on Fri06/20/22 at 1134, Until Fri06/24/22 at 2245, constipation cephalexin (KEFLEX) capsule 500 mg Given 06/24/2022 11:52 AM CDT 500 mg 500 mg, oral, FOUR TIMES A DAY, 20 doses, First dose on Fri06/23/22 at 0815, Last dose on Fri06/27/22 at 2200 Given 06/24/2022 8:55 AM CDT 500 mg Given 06/23/2022 10:04 PM CDT 500 mg cholecalciferol (vitamin D3) 25 mcg (1000 Given 06/24/2022 8:57 AM CDT 25 mcg unit) tablet 25 mcg 25 mcg, oral, DAILY, First dose on Fri06/18/22 at 1700, Until Discontinued Given 06/23/2022 8:30 AM CDT 25 mcg Given 06/22/2022 7:53 AM CDT 25 mcg cyanocobalamin tablet 1,000 mcg Given 06/24/2022 8:57 AM CDT 1,000 mcg 1,000 mcg, oral, DAILY, First dose on Fri06/18/22 at 1630, Until Discontinued Given 06/23/2022 8:32 AM CDT 1,000 mcg Given 06/22/2022 7:52 AM CDT 1,000 mcg enoxaparin (LOVENOX) injection 30 mg Given 06/20/2022 8:21 AM CDT 30 mg Abdom en 30 mg, Subcutaneous, TWICE A DAY, First dose on Fri06/19/22 at 2000, Until Discontinued, The minimum weight for this order is 35 kg. For 1 mg/kg dose patients >190 kg, consider using an unfractionated heparin infusion. For 1.5 mg/kg dose patients >125 kg, use enoxaparin 1 mg/kg q12h per dose rounding guidelines. This medication has a Blackbox Warning. Click the formulary reference link for more information. Given 06/19/2022 8:26 PM CDT 30 mg Right Posterior Arm (SubQ) fluticasone propionate (FLONASE) nasal spray Given 06/2022 9:17 AM CDT 1 spray 1 spray 1 spray, Each Nostril, DAILY, First dose on Fri06/18/22 at 1730, Until Discontinued Given 06/23/2022 8:00 AM CDT 1 spray Given 06/22/2022 8:04 AM CDT 1 spray folic acid (FOLVITE) tablet 1 mg Given 06/24/2022 8:57 AM CDT 1 mg 1 mg, oral, DAILY, First dose on Fri06/18/22 at 1700, Until Discontinued Given 06/23/2022 8:30 AM CDT 1 mg Given 06/22/2022 8:04 AM CDT 1 mg gabapentin (NEURONTIN) capsule 100 mg Given 06/20/2022 1:54 PM CDT 100 mg 100 mg, oral, THREE TIMES A DAY, First dose on Fri06/18/22 at 1400, Until Discontinued Given 06/20/2022 8:22 AM CDT 100 mg Given 06/19/2022 9:40 PM CDT 100 mg gabapentin (NEURONTIN) capsule 300 mg Given 06/24/2022 2:57 PM CDT 300 mg 300 mg, oral, THREE TIMES A DAY, First dose (after last modification) on Fri06/20/22 at 2200, Until Discontinued Given 06/24/2022 8:56 AM CDT 300 mg Given 06/23/2022 10:05 PM CDT 300 mg hemorrhoidal ointment Given 06/24/2022 8:46 AM CDT 1 Application topical, FOUR TIMES A DAY NEEDED, Starting on 06/23/22 at 1437, Until Fri06/24/22 at 2245, Pain or Discomfort HYDROmorphone (DILAUDID) syringe 0.2-0.4 mg Given 06/18/2022 2:25 PM CDT 0.2 mg 0.2-0.4 mg, Intravenous, EVERY 3 HOURS NEEDED, Starting on Fri06/18/22 at 1336, Until Fri06/19/22 at 0735, for pain while strict NPO, may give in addition to non-opioid analgesics when ordered iodixanol (VISIPAQUE) injection 100 mL Given 06/18/2022 3:33 PM CDT 100 mL 100 mL, Intravenous, INTRA-PROCEDURE ONE TIME DOSE NEEDED, 1 dose, Starting on Fri06/18/22 at 1533, Until Fri06/18/22 at 1533, per procedure, per procedure isosorbide mononitrate (IMDUR) extended Given 06/24/2022 8:55 AM CDT 30 mg release tablet 24 HR 30 mg 30 mg, oral, DAILY, First dose on Fri06/20/22 at 1545, Until Discontinued Given 06/23/2022 8:31 AM CDT 30 mg Given 06/22/2022 7:53 AM CDT 30 mg lidocaine 2% (XYLOCAINE) URO-JET gel 10 mL Urethral, NEEDED, 1 dose, Starting on 06/22/22 at 0613, Until Fri06/24/22 at 2245, Urban placement lidocaine 4% (Salonpas) Patch Applied 06/24/2022 9:15 AM CDT 1 patch Midline Back adhesive patch, medicated 1-3 patch 1-3 patch, Transdermal, DAILY, First dose on Fri06/18/22 at 1345, Until Discontinued Patch Applied 06/22/2022 7:55 AM CDT 1 patch Othe r (Comment) loratadine (CLARITIN) tablet 10 mg Given 06/24/2022 8:55 AM CDT 10 mg 10 mg, oral, DAILY, First dose on Fri06/18/22 at 1700, Until Discontinued Given 06/22/2022 7:52 AM CDT 10 mg Given 06/21/2022 8:12 AM CDT 10 mg lubricant drops ophthalmic (EYE) solution 1-2 Given 8:14 AM CDT 1 drop drop 1-2 drop, Each Eye, THREE TIMES A DAY NEEDED, Starting on Fri06/18/22 at 1502, Until Fri06/24/22 at 2245, Eye Discomfort, Dry Eye(s) Given 06/21/2022 8:22 AM CDT 2 drops Given 06/20/2022 2:32 PM CDT 1 drop magnesium hydroxide (MILK OF MAGNESIA) Given 06/23/2022 7:57 PM CDT 30 mL suspension 30 mL 30 mL, oral, DAILY NEEDED, Starting on Fri06/22/22 at 1104, Until Fri06/24/22 at 2245, constipation Given 06/22/2022 11:44 AM CDT 30 mL magnesium sulfate 2 gram / 50mL (4%) New Bag 06/20/2022 11:59 AM CDT 2 g 25 mL/hr IV piggyback (PREMIX) 2 g 2 g, Intravenous, ONCE, 1 dose, On Manuela 06/20/22 at 1145 methocarbamoL (ROBAXIN) tablet 250-500 m g Given 06/24/2022 4:32 AM CDT 500 mg 250-500 mg, oral, EVERY 6 HOURS NEEDED, Starting on Fri06/18/22 at 1336, Until Fri06/24/22 at 2245, muscle spasm, muscle pain Given 06/23/2022 7:57 PM CDT 500 mg Given 06/23/2022 3:52 AM CDT 500 mg metoprolol tartrate (LOPRESSOR) tablet 5 0 mg Given 06/24/2022 8:57 AM CDT 50 mg 50 mg, oral, TWICE A DAY, First dose on Fri06/18/22 at 2000, Until Discontinued Given 06/23/2022 8:00 AM CDT 50 mg Given 06/22/2022 7:53 AM CDT 50 mg multivitamin (CERTAVITE) tablet 1 tablet Given 06/24/2022 8:57 AM CDT 1 tablet 1 tablet, oral, DAILY, First dose on Fri06/18/22 at 1730, Until Discontinued Given 06/23/2022 8:30 AM CDT 1 tablet Given 06/22/2022 7:53 AM CDT 1 tablet ondansetron (ZOFRAN) disintegrating tabl et 4 mg Given 06/19/2022 2:19 AM CDT 4 mg 4 mg, oral, EVERY 8 HOURS NEEDED, Starting on Fri06/18/22 at 1618, Until Fri06/24/22 at 2245, nausea ondansetron (ZOFRAN) injection 4 mg Given 06/24/2022 8:52 AM CDT 4 mg 4 mg, Intravenous, EVERY 8 HOURS NEEDED, Starting on Fri06/18/22 at 1618, Until Fri06/24/22 at 2245, nausea & vomiting Given 06/19/2022 12:52 PM CDT 4 mg Given 06/18/2022 5:47 PM CDT 4 mg oxyCODONE (immediate release) (ROXICODONE) Given 06/24/2022 4:32 AM CDT 5 mg tablet 2.5-5 mg 2.5-5 mg, oral, EVERY 4 HOURS NEEDED, Starting on Fri06/18/22 at 1336, Until Fri06/24/22 at 1332, Pain, when taking PO Given 06/23/2022 10:04 PM CDT 5 mg Given 06/23/2022 3:52 AM CDT 5 mg oxyCODONE (immediate release) (ROXICODON E) tablet 2.5-5 mg 2.5-5 mg, oral, EVERY 6 HOURS NEEDED, Starting on Fri06/24/22 at 1345, Until Fri06/24/22 at 2245, Pain, when taking PO pantoprazole (PROTONIX) delayed release tablet Given 0 06/24/2022 8:57 AM CDT 40 mg 40 mg 40 mg, oral, DAILY, First dose on Fri06/18/22 at 1700, Until Discontinued Given 06/23/2022 8:31 AM CDT 40 mg Given 06/22/2022 7:53 AM CDT 40 mg polyethylene glycol (MIRALAX) packet 17 g Given 06/22/2022 8:04 AM CDT 17 g 17 g, oral, DAILY, First dose on Fri06/19/22 at 1400, Until Discontinued Given 06/20/2022 8:21 AM CDT 17 g Given 06/19/2022 1:33 PM CDT 17 g polyethylene glycol (MIRALAX) packet 17 g Given 06/24/2022 8:00 AM CDT 17 g 17 g, oral, TWICE A DAY, First dose (after last modification) on Fri06/22/22 at 2000, Until Discontinued Given 06/23/2022 7:56 PM CDT 17 g Given 06/23/2022 8:32 AM CDT 17 g predniSONE (DELTASONE) tablet 10 mg Given 06/24/2022 8:56 AM CDT 10 mg 10 mg, oral, DAILY, First dose on Fri06/18/22 at 1800, Until Discontinued Given 06/23/2022 8:32 AM CDT 10 mg Given 06/22/2022 7:54 AM CDT 10 mg prochlorperazine (COMPAZINE) injection 5 mg Given 06/18/2022 7:00 PM CDT 5 mg 5 mg, Intravenous, EVERY 6 HOURS NEEDED, Starting on Fri06/18/22 at 1856, Until Fri06/24/22 at 2245, nausea & vomiting psyllium husk (METAMUCIL) packet 1 packe t Given 06/24/2022 12:00 PM CDT 1 packet 1 packet, oral, DAILY, First dose on Fri06/24/22 at 1200, Until Discontinued senna-docusate (SENNA-S) tablet 1 tablet Given 06/22/2022 7:52 AM CDT 1 tablet 1 tablet, oral, TWICE A DAY, First dose on Fri06/18/22 at 2000, Until Discontinued Given 06/21/2022 8:34 PM CDT 1 tablet Given 06/20/2022 8:46 PM CDT 1 tablet senna-docusate (SENNA-S) tablet 2 tablet Given 06/24/2022 8:56 AM CDT 2 tablets 2 tablet, oral, TWICE A DAY, First dose (after last modification) on Fri06/22/22 at 2000, Until Discontinued Given 06/23/2022 7:57 PM CDT 2 tablets Given 06/23/2022 8:30 AM CDT 2 tablets sulfaSALAzine (AZULFIDINE) tablet 1,000 mg Given 06/24/2022 9:13 AM CDT 1,000 mg 1,000 mg, oral, TWICE A DAY, First dose on Fri06/20/22 at 2000, Until Discontinued Given 06/23/2022 7:57 PM CDT 1,000 mg Given 06/23/2022 8:30 AM CDT 1,000 mg tamsulosin (FLOMAX) capsule 0.4 mg Given 06/23/2022 8:30 AM CDT 0.4 mg 0.4 mg, oral, DAILY, First dose on Fri06/21/22 at 1930, Until Discontinued Given 06/22/2022 7:54 AM CDT 0.4 mg Given 06/21/2022 6:44 PM CDT 0.4 mg tamsulosin (FLOMAX) capsule 0.4 mg Given 06/24/2022 8:55 AM CDT 0.4 mg 0.4 mg, oral, DAILY, 4 doses, First dose (after last modification) on Fri06/24/22 at 0800, Last dose on Fri06/27/22 at 0800 thiamine (VITAMIN B1) tablet 100 mg Given 06/20/2022 8:22 AM CDT 100 mg 100 mg, oral, DAILY, 3 doses, First dose on Fri06/18/22 at 1730, Last dose on Fri06/20/22 at 0800 Given 06/19/2022 9:20 AM CDT 100 mg documented in this encounter Active and Recently Administered Medications Times are shown in CDT. Scheduled Medication Order 06/22/2022 06/23/2022 06/24/2022 saline FLUSH syringe 10 mL 0600 (Given - Provider: Saadia Moreno RN)1508 (Given - Provider: Bonita Leija RN)2141 (Given - Provider: Megan Moreno RN) 0600 (Given - Provider: Megan Moreno RN)1400 (Given - Provider: Ivett Grady RN)2206 (Given - Provider: Megan F Moreno, RN) 0600 (Given - Provider: Megan Moreno RN)1400 (Due) 10 mL, Intravenous, EVERY 8 HOURS, First dose on Fri06/18/22 at 2200, Until Discontinued acetaminophen (TYLENOL) rectal suppository 650 mg(Link ed Group 1) 0753 (See Alternative - Provider: Bonita Leija RN)1337 (See Alternative - Provider: Bonita Leija RN)2141 (See Alternative - Provider: Megan Moreno RN) 0829 (See Alternative - Provider: Ivett Grady RN)1402 (See Alternative - Provider: Ivett Grady RN)2205 (See Alternative - Provider: Megan Moreno RN) 0856 (See Alternative - Provider: Deidra Moe RN)1457 (See Alternative - Provider: Rebeka Moe RN) 650 mg, Rectal, THREE TIMES A DAY, First dose on Fri06/18/22 at 1400, Until Discontinued acetaminophen (TYLENOL) tablet 1,000 mg(Linked Group 1 ) 0753 (Given - Provider: Bonita Leija RN)1337 (Given - Provider: Bonita Leija RN)2141 (Given - Provider: Megan oMreno RN) 0829 (Given - Provider: Paola Hudson)1402 (Given - Provider: Ivett Grady RN)220 (Given - Provider: Megan Moreno RN) 0856 (Given - Provider: Rebeka Moe RN)1457 (Given - Provider: Rebeka Moe RN) 1,000 mg, oral, THREE TIMES A DAY, First dose on Fri06/18/22 at 1400, Until Discontinued amiodarone (CORDARONE) tablet 200 mg 0752 (Given - Pro vider: Bonita Leija RN) 0830 (Given - Provider: Ivett Grady RN) 0855 (Given - Provider: Rebeka Moe RN) 200 mg, oral, DAILY, First dose on Fri06/18/22 at 1700, Until Dis continued apixaban (ELIQUIS) tablet 5 mg 0753 (Given - Provider: Bonita Leija RN)2012 (Given - Provider: Megan Moreno RN) 0830 (Given - Provider: Ivett Grady RN)1957 (Given - Provider: Megan Moreno RN) 0855 (Given - Provider: Rebeka Moe, MALIKA) 5 mg, oral, TWICE A DAY, First dose on Fri06/20/22 at 2000, Until Discontinued aspirin enteric coated tablet 81 mg 0752 (Given - Prov ider: Bonita Leija RN) 0830 (Given - Provider: vIett Grady RN) 0855 (Given - Provider: Rebeka Moe RN) 81 mg, oral, DAILY, First dose on Fri06/20/22 at 1545, Until Disc ontinued atorvastatin (LIPITOR) tablet 80 mg 0753 (Given - Prov ider: Bonita Leija RN) 0830 (Given - Provider: Ivett Grady RN) 0857 (Given - Provider: Rebeka Moe RN) 80 mg, oral, DAILY, First dose on Fri06/18/22 at 1700, Until Disc ontinued cephalexin (KEFLEX) capsule 500 mg 1125 (Given - Provider: Ivett Grady RN)1402 (Given - Provider: Ivett Grady RN)1821 (Given - Provider: Ivett Grady RN)2204 (Given - Provider: Megan Moreno RN) 0855 (Given - Provider: Rebeka Moe, MALIKA)1152 (Given - Provider: Rebeka Moe, MALIKA) 500 mg, oral, FOUR TIMES A DAY, 20 doses , First dose on Fri06/23/22 at 0815, Last dose on Fri06/27/22 at 2200 cholecalciferol (vitamin D3) 25 mcg (1000 unit) tablet 25 mcg 0753 (Given - Provider: Bonita Leija RN) 0830 (Given - Provider: Ivett Grady RN) 0857 (Given - Provider: Rebeka Moe, MALIKA) 25 mcg, oral, DAILY, First dose on Fri06/18/22 at 1700, Until Dis continued cyanocobalamin tablet 1,000 mcg 0752 (Given - Provider: Ebony Leija RN) 0832 (Given - Provider: Ivett Grady RN) 0857 (Given - Provider: Rebeka Moe RN) 1,000 mcg, oral, DAILY, First dose on Fri06/18/22 at 1630, Until Discontinued fluticasone propionate (FLONASE) nasal spray 1 spray 0 804 (Given - Provider: Bonita Leija RN) 0800 (Given - Provider: Ivett Grady RN) 0917 (Given - Provider: Rebeka Moe RN) 1 spray, Each Nostril, DAILY, First dose on Fri06/18/22 at 1730, Until Discontinued folic acid (FOLVITE) tablet 1 mg 0804 (Given - Provider: Reva Leija RN) 0830 (Given - Provider: Ivett Grady RN) 0857 (Given - Provider: Rebeka Moe RN) 1 mg, oral, DAILY, First dose on Fri06/18/22 at 1700, Until Disco ntinued gabapentin (NEURONTIN) capsule 300 mg 0753 (Given - Pr ovider: Bonita Leija RN)1337 (Given - Provider: Bonita Leija RN)2141 (Given - Provider: Megan Moreno RN) 0830 (Given - Provider: Paola Hudson)1402 (Given - Provider: Ivett Grady RN)2205 (Given - Provider: Megan Moreno RN) 0856 (Given - Provider: Rebeka Moe RN)1457 (Given - Provider: Rebeka Moe RN) 300 mg, oral, THREE TIMES A DAY, First d ose (after last modification) on Fri06/20/22 at 2200, Until Discontinued isosorbide mononitrate (IMDUR) extended release tablet 24 HR 30 mg 0753 (Given - Provider: Bonita Leija RN) 0831 (Given - Provider: Ivett Grady RN) 0855 (Given - Provider: Rebeka Moe RN) 30 mg, oral, DAILY, First dose on Fri06/20/22 at 1545, Until Disc ontinued lidocaine 4% (Salonpas) adhesive patch, medicated 1-3 patch 0755 (Patch Applied - Provider: Bonita Leija RN - Comment: low back)1955 (Patch Removed - Provider: Megan Moreno RN) 0800 (Declined - Provider: Ivett Grady RN) 0915 (Patch Applied - Provider: Rebeka Moe RN)2114 (Due: Patch Removed - Provider: Rebeka Moe RN) 1-3 patch, Transdermal, DAILY, First dos e on Fri06/18/22 at 1345, Until Discontinued loratadine (CLARITIN) tablet 10 mg 0752 (Given - Provi maria: Bonita Leija RN) 0800 (Not Given - Provider: Ivett aggarwal RN - Reason: Medication not available) 0855 (Given - Provider: Rebeka Moe RN) 10 mg, oral, DAILY, First dose on Fri06/18/22 at 1700, Until Disc ontinued metoprolol tartrate (LOPRESSOR) tablet 50 mg 0753 (Giv en - Provider: Bonita Leija RN)2012 (Not Given - Provider: Megan Moreno RN - Reason: Clinically appropriate (comment)) 0800 (Given - Provider: Paola Hudson - Comment: missed the scan)1956 (Not Given - Provider: Megan Moreno RN - Reason: Clinically appropriate (comment)) 0857 (Given - Provider: Rebeka Moe RN) 50 mg, oral, TWICE A DAY, First dose on Fri06/18/22 at 2000, Until Discontinued multivitamin (CERTAVITE) tablet 1 tablet 0753 (Given - Provider: Bonita Leija RN) 0830 (Given - Provider: Ivett Grady RN) 0857 (Given - Provider: Rebeka Moe RN) 1 tablet, oral, DAILY, First dose on Fri06/18/22 at 1730, Until D iscontinued pantoprazole (PROTONIX) delayed release tablet 40 mg 0 753 (Given - Provider: Bonita Leija RN) 0831 (Given - Provider: Ivett Grady RN) 0857 (Given - Provider: Rebeka Moe RN) 40 mg, oral, DAILY, First dose on Fri06/18/22 at 1700, Until Disc ontinued polyethylene glycol (MIRALAX) packet 17 g (CANCELED) 0 804 (Given - Provider: Bonita Leija RN) 17 g, oral, DAILY, First dose on Fri06/19/22 at 1400, Until Disco ntinued polyethylene glycol (MIRALAX) packet 17 g 2012 (Given - Provider: Megan Moreno RN) 0832 (Given - Provider: Paola Hudson)1955 (Given - Provider: Megan Moreno RN) 0800 (Given - Provider: Rebeka Moe, RN) 17 g, oral, TWICE A DAY, First dose (aft er last modification) on Fri06/22/22 at 2000, Until Discontinued predniSONE (DELTASONE) tablet 10 mg 0754 (Given - Prov ider: Bonita Leija RN) 0832 (Given - Provider: Ivett Grady RN) 0856 (Given - Provider: Rebeka Moe, MALIKA) 10 mg, oral, DAILY, First dose on Fri06/18/22 at 1800, Until Disc ontinued psyllium husk (METAMUCIL) packet 1 packet 1200 (Given - Provider: Rebeka Moe RN) 1 packet, oral, DAILY, First dose on Fri06/24/22 at 1200, Until D iscontinued senna-docusate (SENNA-S) tablet 1 tablet (CANCELED) 07 52 (Given - Provider: Bonita Leija RN) 1 tablet, oral, TWICE A DAY, First dose on Fri06/18/22 at 2000, Until Discontinued senna-docusate (SENNA-S) tablet 2 tablet 2012 (Given - Provider: Megan Moreno RN) 0830 (Given - Provider: Paola Hudson)1956 (Given - Provider: Megan Moreno RN) 0856 (Given - Provider: Rbeeka Moe, MALIKA) 2 tablet, oral, TWICE A DAY, First dose (after last modification) on Fri06/22/22 at 2000, Until Discontinued sulfaSALAzine (AZULFIDINE) tablet 1,000 mg 0753 (Given - Provider: Bonita Leija RN)2013 (Given - Provider: Megan Moreno RN) 0830 (Given - Provider: Ivett Grady RN)1956 (Given - Provider: Megan Moreno RN) 0913 (Given - Provider: Rebeka Moe RN) 1,000 mg, oral, TWICE A DAY, First dose on Fri06/20/22 at 2000, Until Discontinued tamsulosin (FLOMAX) capsule 0.4 mg (CANCELED) 0754 (Gi kaitlyn - Provider: Bonita Leija RN) 0830 (Given - Provider: Ivett Grady, MALIKA) 0.4 mg, oral, DAILY, First dose on Fri06/21/22 at 1930, Until Dis continued tamsulosin (FLOMAX) capsule 0.4 mg 0855 (Given - Provider: Rebeka Moe, MALIKA) 0.4 mg, oral, DAILY, 4 doses, First dose (after last modification) on Fri06/24/22 at 0800, Last dose on Fri06/27/22 at 0800 PRN Medication Order 06/22/2022 06/23/2022 06/24/2022 saline FLUSH syringe 10 mL 10 mL, Intravenous, NEEDED, Starting on Fri06/18/22 at 1618, Until Fri06/24/22 at 2245, Line Care bisacodyl (DULCOLAX) suppository 1 suppository 1 suppository, Rectal, DAILY NEEDED, Starting on Fri06/20/22 at 1134, Until Fri06/24/22 at 2245, constipation hemorrhoidal ointment 0846 (Give n - Provider: Rebeka Moe RN) topical, FOUR TIMES A DAY NEEDED, Sta rting on Fri06/23/22 at 1437, Until Fri06/24/22 at 2245, Pain or Discomfort lidocaine (LMX-4) topical cream 1 Application topical, NEEDED, Starting on Fri at 1618, Until Fri06/24/22 at 2245, IV start or restart if patient prefers a needleless local anesthetic. lidocaine / sod bicarb (buffered lidocaine) syringe for IV start s 0.1-0.3 mL 0.1-0.3 mL, Intradermal, NEEDED, Star ting on Fri06/18/22 at 1618, Until Fri06/24/22 at 2245, IV line placement, IV start or restart lidocaine 1% (PF) (XYLOCAINE) injection 0.1-0.3 mL 0.1-0.3 mL, Intradermal, NEEDED, Star ting on Fri06/18/22 at 1618, Until Fri06/24/22 at 2245, IV start or restart lidocaine 2% (XYLOCAINE) URO-JET gel 10 mL Urethral, NEEDED, 1 dose, Starting on 06/22/22 at 0613, Until Fri06/24/22 at 2245, Urban placement lubricant drops ophthalmic (EYE) solution 1-2 drop 081 4 (Given - Provider: Bonita Leija RN) 1-2 drop, Each Eye, THREE TIMES A DAY NEEDED, Starting on Fri06/18/22 at 1502, Until Fri06/24/22 at 2245, Eye Discomfort, Dry Eye(s) magnesium hydroxide (MILK OF MAGNESIA) suspension 30 m L 1144 (Given - Provider: Bonita Leija, MALIKA) 1956 (Given - Provider: Megan Moreno RN) 30 mL, oral, DAILY NEEDED, Starting o n 06/22/22 at 1104, Until Fri06/24/22 at 2245, constipation methocarbamoL (ROBAXIN) tablet 250-500 mg 2012 (Given - Provider: Megan Moreno RN) 035 (Given - Provider: Megan Moreno , MALIKA)1956 (Given - Provider: Megan Moreno RN) 043 (Given - Provider: Megan Moreno RN) 250-500 mg, oral, EVERY 6 HOURS NEEDE D, Starting on Fri06/18/22 at 1336, Until Fri06/24/22 at 2245, muscle spasm, muscle pain ondansetron (ZOFRAN) disintegrating tablet 4 mg(Linked Group 2) 0852 (See Alternative - Provider: Rebeka Moe, MALIKA) 4 mg, oral, EVERY 8 HOURS NEEDED, Sta rting on Fri06/18/22 at 1618, Until Fri06/24/22 at 2245, nausea ondansetron (ZOFRAN) injection 4 mg(Linked Group 2) 0852 (Given - Provider: Rebeka Moe, RN) 4 mg, Intravenous, EVERY 8 HOURS NEED ED, Starting on Fri06/18/22 at 1618, Until Fri06/24/22 at 2245, nausea & vomiting oxyCODONE (immediate release) (ROXICODONE) tablet 2.5- 5 mg (CANCELED) 2140 (Given - Provider: Megan Moreno RN) 351 (Given - Provider: Megan Moreno RN)2203 (Given - Provider: Megan Moreno RN) 043 (Given - Provider: Megan Moreno RN) 2.5-5 mg, oral, EVERY 4 HOURS NEEDED, Starting on Fri06/18/22 at 1336, Until Fri06/24/22 at 1332, Pain, when taking PO oxyCODONE (immediate release) (ROXICODONE) tablet 2.5-5 mg 2.5-5 mg, oral, EVERY 6 HOURS NEEDED, Starting on Fri06/24/22 at 1345, Until Fri06/24/22 at 2245, Pain, when taking PO prochlorperazine (COMPAZINE) injection 5 mg 5 mg, Intravenous, EVERY 6 HOURS NEED ED, Starting on Fri06/18/22 at 1856, Until Fri06/24/22 at 2245, nausea & vomiting Linked Groups Order Group 1: acetaminophen (TYLENOL) tablet 1,000 mgJump to med 1,000 mg, oral, THREE TIMES A DAY, First dose on Fri06/18/22 at 1400, Until Discontinued Or acetaminophen (TYLENOL) rectal suppository 650 mgJump to med 650 mg, Rectal, THREE TIMES A DAY, First dose on Fri06/18/22 at 1400, Until Discontinued Group 2: ondansetron (ZOFRAN) disintegrating tablet 4 mgJump to med 4 mg, oral, EVERY 8 HOURS NEEDED, Sta rting on Fri06/18/22 at 1618, Until Fri06/24/22 at 2245, nausea Or ondansetron (ZOFRAN) injection 4 mgJump to med 4 mg, Intravenous, EVERY 8 HOURS NEED ED, Starting on Fri06/18/22 at 1618, Until Fri06/24/22 at 2245, nausea & vomiting documented in this encounter Care Teams 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
--- OUTSIDE RECORDS SUMMARY | 2022-07-22 15:22 | XMS_ITS | Encounter Summary ---
:1950 Author Organization [facility] Address [address] [place] [id number] Care Team Providers Name Role Phone [facility] Unavailable [phone] Md Craig Primary Care Provider Unavailable Encounter Details Date Type Department Care Team Description 06/18/2022 Travel Social History Tobacco Use Types Packs/Day Years [...] have Coronavirus/COVID-19? documented as of this encounter Plan of Treatment Not on filedocumented as of this encounter Visit Diagnoses Not on filedocumented in this encounter Care Teams Client Coordinator Relationship Specialty Start Date End Date [place] Medical PCP - Primary Care Clinic 06/18/22 [facility] [address] [id number] Md Craig PCP - General 06/18/22 documented as of this encounter
== END 2022-07-16 09:53 | disposition home or self-care (01) ==
PROVIDERS: Visit Provider Family Medicine
DX: R06.02 Shortness of breath (principal)
CPT/HCPCS: A0425; A0427

== ENCOUNTER 2022-07-16 10:21 | Observation (INO) | payer OTHER, MEDICARE, SELFPAY ==
[2022-07-16] VITALS (9 sets, daily range): BP systolic 118–135; BP diastolic 63–89; PULSE 49–58; RESP 16–20; TEMP 36.6–36.8; O2SAT 90–97; BMI 21.6
--- NOTE | 2022-07-16 10:57 | ED.SOB ---
HPI - SOB/Dyspnea General Chief Complaint: Shortness of Breath/Dyspnea Stated Complaint: Short of breath Time Seen by Provider: 07/16/22 10:28 Source: patient Mode of arrival: EMS History of Present Illness HPI Narrative: Sara is a 72yo male patient with h/o CAD, HTN, COPD, and tobacco abuse who recently suffered cervical neck fracture after fall that presents to the emergency department with shortness of breath that began overnight and into the engraver letter. The patient reports he was at rest when the shortness of breath woke him. He states he had no chest pain, nausea, or diaphoresis associated with the shortness of breath. He denies cough or URI symptoms including nasal congestion, sore throat, and ear pain. At onset of symptoms, he was able to take some ?good deep breaths? and felt better. When his home health nurse arrived, she found his oxygen level to be in the mid 80s. At that time, he was asymptomatic. EMS was called for transport. The patient does not have home oxygen. He has recently been hospitalized as previously noted for the cervical neck fracture. He has had no known exposures. At time of arrival in the emergency department, he denies acute concerns or complaints. Related Data Home Medications Medication Instructions Recorded Confirmed aspirin 325 mg tablet 325 mg PO DAILY 06/17/22 07/16/22 atorvastatin 80 mg tablet 80 mg PO QPM 06/17/22 07/16/22 fluticasone propionate 50 2 spray intranasal DAILY PRN 06/17/22 07/16/22 mcg/actuation nasal spray,suspension (24 Hour Allergy Relief) isosorbide mononitrate 30 mg 30 mg PO DAILY 06/17/22 07/16/22 tablet,extended release 24 hr lisinopril 10 1 tab PO DAILY 06/17/22 07/16/22 mg-hydrochlorothiazide 12.5 mg tablet loratadine 10 mg tablet 10 mg PO DAILY 06/17/22 07/16/22 (Allerclear) metoprolol tartrate 50 mg tablet 25 mg PO BID 06/17/22 07/16/22 (Lopressor) nitroglycerin 0.4 mg sublingual 0.4 mg sublingual Q5-15M PRN 06/17/22 07/16/22 tablet pantoprazole 20 mg tablet,delayed 20 mg PO DAILY 06/17/22 07/16/22 release amiodarone .Route 06/18/22 apixaban 5 mg tablet 5 mg PO BID 06/18/22 07/16/22 Allergies Allergy/AdvReac Type Severity Reaction Status Date / Time No Known Drug Allergies Allergy Verified 07/16/22 10:52 Review of Systems Const: Denies: fever, chills, fatigue, malaise or night sweats Eyes: Denies: change in vision or blurry vision ENMT: Denies: throat pain, throat swelling, difficulty swallowing, mouth pain, ear pain, vertigo, nasal discharge or nasal congestion Cardio: Reports: shortness of breath with exertion and shortness of breath when lying down; Denies: chest pain, palpitations, swelling of feet/ankles or bluish discoloration of hands/feet Resp: Reports: shortness of breath; Denies: cough, wheezing, pain on inspiration or chest congestion GI: Denies: abdominal pain, nausea, vomiting, diarrhea, constipation or difficulty swallowing Musculo: Reports: extremity pain (Pain in hands associated with recent cervical fracture) Integ/Breast: Denies: rash or redness Neuro: Denies: headache, numbness in extremities, weakness in extremities, lack of coordination, dizziness, vertigo or difficulty communicating thoughts Psych: Denies: anxiety Endo: Denies: excessive urination or fatigue Allergy/Immuno: Denies: throat swelling or wheezing PFSH PFSH Medical History Alcohol abuse Arteriosclerosis of coronary artery Atrial fibrillation CHF (congestive heart failure) Chronic kidney disease GERD (gastroesophageal reflux disease) Heart attack Hypertension Rheumatoid arteritis Surgical History H/O total knee replacement Hx of coronary angioplasty Social History Smoking Status: Former smoker Do you use any of these nicotine containing products: None Second hand tobacco smoke exposure: No How often do you have a drink containing alcohol: 4 or more times a week How many standard drinks containing alcohol do you have on a typical day: 10 or more How often do you have six or more drinks on one occasion: Daily or almost daily AUDIT-C Alcohol total score: 12 Non-prescribed substance use: marijuana (any form) service: No Exam Const: Vital Signs, click to edit/add: Vital Signs - 24 hr 07/16/22 10:49 07/16/22 12:41 Temperature 98 F Pulse Rate [Apical ] 55 L Respiratory Rate 20 Blood Pressure [Ri ght Upper Arm] 130/82 Pulse Oximetry 90 93 Oxygen Delivery Me thod Room Air Nasal Cannula Oxygen Flow Rate 2 Documenting provider has reviewed patient's vital signs: yes Common normals: no apparent distress, oriented x3, no limitations and alert General appearance: cooperative, comfortable (as possible in cervical collar), well developed and ill appearing chronically; not in distress Orientation/consciousness: Yes awake, Yes oriented to person and Yes oriented to place HENMT: Common normals: normocephalic, head/scalp atraumatic and hearing grossly normal bilaterally Head and scalp: normocephalic and atraumatic Face and sinus: normal facial exam (within limits of masking) Eye: Common normals: EOMs intact bilaterally General eye: normal appearance of both eyes Chest: Common normals: inspection of chest normal Resp: Common normals: normal respiratory effort, no retractions, no use of accessory muscles and clear to auscultation bilaterally Effort & inspection: able to speak in complete sentences Auscultation: clear to auscultation bilaterally Cardio: Common normals: regular rate, regular rhythm, S1 normal heart sound and S2 normal heart sound Rate: regular rate Rhythm: regular rhythm Heart sounds: S1 normal and S2 normal Extremity: Common normals: normal to inspection, full ROM and no clubbing, cyanosis or edema Neuro: Common normals: oriented x3, moves all extremities and no focal motor deficits Sensorium/orientation: awake, alert, oriented to person and oriented to place Motor exam: strength 5/5 throughout and no movement abnormalities noted Psych: Common normals: mental status grossly normal, thought process normal and activity/motor behavior normal Appearance: grossly normal Thought process: normal thought process Thought content: normal thought content Attention/concentration: attention grossly intact Memory/cognition: memory grossly intact Insight: insight good Judgement: judgment good Skin: Common normals: no rashes or lesions noted General skin exam: no rashes or lesions noted Course Course Hospital Course: Sara has presented to the ED for evaluation of acute onset shortness of breath that has resolved at time of arrival in the ED. The patient is noted to be hypoxic, despite being asymptomatic on arrival. Laboratory studies and imaging as noted. The patient has been placed on 2L of NC and will be monitored while in the ED. Reevaluation(s) Reevaluation #1: Patient reports no significant change in symptoms. Patient's vital signs have remained stable while in the ED on 2L NC. The results were discussed, and the patient verbalized understanding. Reasons for admission including further evaluation and consideration of home O2 were discussed. [facility]. The local hospitalist has been notified. Vital Signs Vital signs: Initial Vital Signs Temperature 98 F 07/16/22 10:49 Temperature Source Temporal Artery Scan 07/16/22 10:49 Pulse Rate 55 L 07/16/22 10:49 Pulse Rhythm 07/16/22 10:49 Respiratory Rate 20 07/16/22 10:49 Blood Pressure 130/82 07/16/22 10:49 Blood Pressure Mean 98 07/16/22 10:49 Blood Pressure Position Supine 07/16/22 10:49 Pulse Oximetry 90 07/16/22 10:49 Oxygen Delivery Method 07/16/22 10:49 Vital Signs Temperature 98 F 07/16/22 10:49 Pulse Rate 55 L 07/16/22 10:49 Respiratory Rate 20 07/16/22 10:49 Blood Pressure 130/82 07/16/22 10:49 Pulse Oximetry 90 07/16/22 10:49 Oxygen Delivery Method 07/16/22 10:49 Temperature 98 F 07/16/22 10:49 Pulse Rate 55 L 07/16/22 10:49 Respiratory Rate 20 07/16/22 10:49 Blood Pressure 130/82 07/16/22 10:49 Pulse Oximetry 93 07/16/22 12:41 Oxygen Delivery Method 07/16/22 12:41 Oxygen Flow Rate 2 07/16/22 12:41 MDM - SOB/Dyspnea MDM Narrative Medical decision making narrative: Life-threatening differential diagnoses include COVID and other infectious etiology, COPD exacerbation, pulmonary edema, acute coronary syndromes, pulmonary embolism, pneumonia, and pneumothorax. Other differential diagnosis considerations include asthma, bronchitis, as well as other etiologies. Medical Records Attestation: I reviewed the patient's medical records. Lab Data Attestation: I reviewed the patient's lab results. Labs: Lab Results 07/16/22 07/16/22 07/16/22 Range/Units 11:18 11:40 11:40 WBC 10.54 (4.50-11.00) K/uL RBC 2.90 L (4.30-5.90) m/uL Hgb 9.9 L (13.5-17.5) gm/dL Hct 31.0 L (37.0-53.0) % MCV 107 H (80-100) fL MCH 34 (26-34) pg MCHC 32 (32-36) gm/dL RDW Coeff of Manolo 12.2 (11.5-15.5) % Plt Count 287 (140-440) K/uL Neut % (Auto) 77.7 H (42.0-72.0) % Lymph % (Auto) 10.6 L (20-44) % Randolph % (Auto) 6.6 (0.0-11.0) % Eos % (Auto) 4.2 (0.0-7.0) % Baso % (Auto) 0.4 (0.0-3.0) % Neut # (Auto) 8.20 H (1.7-7.0) K/uL Lymph # (Auto) 1.10 (0.90-2.90) K/uL Randolph # (Auto) 0.70 (0.00-0.90) K/UL Eos # (Auto) 0.44 (0.00-0.50) K/uL Baso # (Auto) 0.04 (0.00-0.30) K/uL Abs Immat Gran (auto) 0.05 (0.00-0.30) K/uL D-Dimer Quant (PE/DVT) (0.00-0.50) ug/ml Sodium 141 (135-149) mmol/L Potassium 4.1 (3.6-5.1) mmol/L Chloride 107 (96-114) mmol/L Carbon Dioxide 26 (20-32) mmol/L BUN 16 (7-30) mg/dL Creatinine 1.1 (0.5-1.5) mg/dL Estimated GFR 70 ml/min Glucose 105 (60-115) mg/dL Calcium 8.8 (8.4-10.6) mg/dL Total Bilirubin 0.3 (0.1-1.5) mg/dL AST 18 (12-35) U/L ALT 16 (4-50) U/L Alkaline Phosphatase 78 (40-150) U/L Troponin I < 0.01 L (0.01-0.04) ng/mL NT-Pro-B Natriuret Pep 2030 H (0-125) PG/mL Total Protein 6.7 (6.0-8.3) g/dL Albumin 3.8 (3.3-5.0) g/dL SARS-CoV-2 (PCR) Negative SARS-CoV-2 (Negative) 07/16/22 Range/Units 11:40 WBC (4.50-11.00) K/uL RBC (4.30-5.90) m/uL Hgb (13.5-17.5) gm/dL Hct (37.0-53.0) % MCV (80-100) fL MCH (26-34) pg MCHC (32-36) gm/dL RDW Coeff of Manolo (11.5-15.5) % Plt Count (140-440) K/uL Neut % (Auto) (42.0-72.0) % Lymph % (Auto) (20-44) % Randolph % (Auto) (0.0-11.0) % Eos % (Auto) (0.0-7.0) % Baso % (Auto) (0.0-3.0) % Neut # (Auto) (1.7-7.0) K/uL Lymph # (Auto) (0.90-2.90) K/uL Randolph # (Auto) (0.00-0.90) K/UL Eos # (Auto) (0.00-0.50) K/uL Baso # (Auto) (0.00-0.30) K/uL Abs Immat Gran (auto) (0.00-0.30) K/uL D-Dimer Quant (PE/DVT) 0.90 H (0.00-0.50) ug/ml Sodium (135-149) mmol/L Potassium (3.6-5.1) mmol/L Chloride (96-114) mmol/L Carbon Dioxide (20-32) mmol/L BUN (7-30) mg/dL Creatinine (0.5-1.5) mg/dL Estimated GFR ml/min Glucose (60-115) mg/dL Calcium (8.4-10.6) mg/dL Total Bilirubin (0.1-1.5) mg/dL AST (12-35) U/L ALT (4-50) U/L Alkaline Phosphatase (40-150) U/L Troponin I (0.01-0.04) ng/mL NT-Pro-B Natriuret Pep (0-125) PG/mL Total Protein (6.0-8.3) g/dL Albumin (3.3-5.0) g/dL SARS-CoV-2 (PCR) (Negative) ECG Data Attestation: I personally reviewed and interpreted this ECG as follows: (SB with PACs. 49bpm. Low voltage with LAD noted. QT prolongation.) Prior ECG tracings: not available for review Discharge Plan Discharge Clinical Impression: Hypoxia, Acute exacerbation of chronic obstructive pulmonary disease (COPD) Patient Disposition: Admitted As Inpatient Condition: Stable Activity Level: No Restrictions and Activity as Tolerated Discharge Diet: Regular Prescriptions: No Action lisinopril-hydrochlorothiazide 10-12.5 mg tablet 1 tab PO DAILY aspirin 325 mg tablet 325 mg PO DAILY fluticasone propionate [24 Hour Allergy Relief] 50 mcg/actuation spray,suspension 2 spray intranasal DAILY PRN Rx Instructions: administer into each nostril loratadine [Allerclear] 10 mg tablet 10 mg PO DAILY metoprolol tartrate [Lopressor] 50 mg tablet 25 mg PO BID nitroglycerin 0.4 mg tablet, sublingual 0.4 mg sublingual Q5-15M PRN Rx Instructions: do not exceed 3 doses per episode pantoprazole 20 mg tablet,delayed release (DR/EC) 20 mg PO DAILY isosorbide mononitrate 30 mg tablet extended release 24 hr 30 mg PO DAILY atorvastatin 80 mg tablet 80 mg PO QPM apixaban 5 mg tablet 5 mg PO BID amiodarone .Route Follow Up/Referrals: Provider,Not a Local [Primary Care Provider] -
--- NOTE | 2022-07-16 11:08 | CRLHL7_ITS ---
For Patients: As a result of the Century Cures Act, medical imaging exams and procedure reports are released immediately into your electronic medical record. You may view this report before your referring provider. If you have questions, please contact your health care provider. INDICATION: Shortness of breath. TECHNIQUE: Chest 1 views. COMPARISON: None. FINDINGS: Cardiovascular and mediastinum: Heart size and vasculature are normal in caliber and appearance. Calcification in the aortic arch. Lungs and pleural spaces: Stable calcified pleural plaques. Minimal left basilar opacities may be due to pneumonia or atelectasis. No large pleural effusion. No pneumothorax. Bones and soft tissues: No significant findings. IMPRESSION: 1. Mild nonspecific left basilar opacities may represent atelectasis or pneumonia. 2. 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 Dictated by Abel Desai MD @ 07/16/2022 11:41:00 AM (Electronically Signed)
[2022-07-16 11:49] LABS: Basophils Absolute Auto 0.04 K/uL (0.00-0.30); Basophils Percent Auto 0.4 % (0.0-3.0); Eosinophils Absolute Auto 0.44 K/uL (0.00-0.50); Eosinophils Percent Auto 4.2 % (0.0-7.0); Hemoglobin* 9.9 gm/dL (13.5-17.5); Immature Granulocytes Abs Auto 0.05 K/uL (0.00-0.30); Lymphocytes Percent Auto 10.6 % (20-44); Mean Corpuscular HGB Conc 32 gm/dL (32-36); Mean Corpuscular Hemoglobin 34 pg (26-34); Mean Corpuscular Volume 107 fL (80-100); Monocytes Percent Auto 6.6 % (0.0-11.0); Neutrophils Percent Auto 77.7 % (42.0-72.0); Platelet Count* 287 K/uL (140-440); RDW Coefficient of Variation % 12.2 % (11.5-15.5); White Blood Count* 10.54 K/uL (4.50-11.00)
[2022-07-16 11:59] LABS: Slide Review Reflex No
[2022-07-16 12:01] LABS: Albumin* 3.8 g/dL (3.3-5.0); Chloride* 107 mmol/L (96-114)
[2022-07-16 12:02] LABS: Potassium* 4.1 mmol/L (3.6-5.1); Sodium* 141 mmol/L (135-149)
[2022-07-16 12:04] LABS: Aspartate Amino Transferase* 18 U/L (12-35); Bilirubin Total* 0.3 mg/dL (0.1-1.5); Carbon Dioxide* 26 mmol/L (20-32); Creatinine* 1.1 mg/dL (0.5-1.5); Estimated Glomerular Filt Rate 70 ml/min
[2022-07-16 12:05] LABS: Alanine Aminotransferase* 16 U/L (4-50); Alkaline Phosphatase* 78 U/L (40-150); Blood Urea Nitrogen* 16 mg/dL (7-30); Calcium* 8.8 mg/dL (8.4-10.6); Glucose* 105 mg/dL (60-115); Total Protein* 6.7 g/dL (6.0-8.3)
[2022-07-16 12:14] LABS: NT Pro B Type NatriureticPept* 2030 PG/mL (0-125)
[2022-07-16 12:21] LABS: Troponin I* < 0.01 ng/mL (0.01-0.04)
[2022-07-16 12:50] LABS: SARS PCR* Negative SARS-CoV-2 (Negative)
--- NOTE | 2022-07-16 13:05 | ED.NURSE ---
Heads up to house sup.
--- NOTE | 2022-07-16 13:11 | W.PC.EDHO ---
Primary Language: Preferred Language: Orientation Status: [] Alert & Oriented [] Slight Confusion [] Known Dx Dementia Transfers By: [] Assist of 1 [] Assist of 2 [] Lift Description of Symptoms ED Triage Present Problem Intermittent Description SOB since last night. Recent neck fx and surgery - home health nurse was at his home to see him and found his sPO2 to be 80% on RA. Hx of COPD - not on any meds for it. O2 on arrival here 92% on RA ED Triage Date of Onset of 07/16/22 Symptoms Oxygen Administration Pulse Oximetry 93 Pulse Oximetry 90 Oxygen Delivery Method Nasal Cannula Oxygen Delivery Method Room Air Oxygen Flow Rate 2 Cardiac Monitoring EKG Method 12 Lead EKG Method [employer]
[2022-07-16] MEDS: FUROSEMIDE 10 MG/ML inj 20 MG IVP (13:17)
--- NOTE | 2022-07-16 13:53 | ED.NURSE ---
Per MS Charge, Yamel, patient was accepted by Dr. Virginie luque to send bed request. Bed Request sent to [facility]. Talked to [facility]. Amparo
--- NOTE | 2022-07-16 14:20 | ED.NURSE ---
Report to MALIKA Staley. Pt admitted to [facility] d/t no beds at [place].
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
[2022-07-16 15:39] LABS: Procalcitonin* 0.05 ng/mL (<0.50)
[2022-07-16] MEDS: IPRAT-ALBUT 0.5-2.5 MG/3 ML NEB 1 NEB IH ×2 (16:09→21:30)
[2022-07-16 16:28] LABS: C Reactive Protein* 0.5 mg/dL (0.5-1.0)
--- NOTE | 2022-07-16 16:54 | PC.NURSE ---
PATIENT ALERT AND ORIENTED, PLEASANT AND COOPERATIVE, UP AD MORA, CURRENTLY GETTING HOME ASSISTANCE WITH PT/OT HEALTH NURSE AND SHOWER AIDE, PER PATIENT THIS IS TO STOP NEXT WEEK ALTHOUGH HE STILL FEELS THAT HE NEEDS MORE HELP AT HOME WHILE WEARING NECK BRACE, LIVES AT HOME WITH WHO IS UNABLE TO HELP, CHRONIC BACK PAIN/ARTHRITIS, NECK BRACE IN PLACE WITH MEPILEX UNDER TO PREVENT SHEARING, ORDERED 40 LASIX UPDATED ON RECENT 20 OF LASIX GIVEN, HOLD FROM NOW PER , TELE SHOWING SINUS SAGAR WITH FIRST DEGREE BLOCK.
[2022-07-16 18:26] LABS: HCO3 VBG 29 mmol/L (21-28); PCO2 VBG 46 mmHG (40-50); PO2 VBG 26.9 mmHG (25-47); pH VBG 7.416 (7.32-7.43)
[2022-07-16] MEDS: BUDESONIDE 0.5 MG/2ML NEB NEB (21:09)
[2022-07-16] MEDS: APIXABAN 5 MG TABLET PO (21:10)
[2022-07-16] MEDS: ATORVASTATIN CALCIUM 40 MG TABLET 80 MG PO (21:10)
[2022-07-16] MEDS: BACLOFEN 10 MG TABLET 5 MG PO (21:10)
[2022-07-16] MEDS: ACETAMINOPHEN 325 MG TABLET PO (21:10)
[2022-07-16] MEDS: METOPROLOL TARTRATE 25 MG TABLET PO (21:10)
[2022-07-17 03:00] VITALS: BP 149/74; PULSE 62; RESP 16; TEMP 36.8; O2SAT 95
[2022-07-17] MEDS: IPRAT-ALBUT 0.5-2.5 MG/3 ML NEB 1 NEB IH ×2 (03:29→09:35)
--- NOTE | 2022-07-17 05:40 | PC.NURSE ---
Shift 7p-7a: Pt. AOx4, following commands, VSS on 1L NC. Pt. ambulating to toilet independently, voiding w/o difficulty. Tele monitor in place, neck brace in place. Neb treatments administered. Pt. denies pain, headaches, dizziness, and N/V. Pt. expresses desire to go home today.
[2022-07-17 06:41] LABS: HCO3 VBG 29 mmol/L (21-28); Ionized Calcium* 1.15 mmol/L (1.11-1.30); PCO2 VBG 45 mmHG (40-50); PO2 VBG 28.1 mmHG (25-47); pH VBG 7.414 (7.32-7.43)
[2022-07-17 06:51] LABS: Basophils Percent Auto 0.4 % (0.0-3.0); Eosinophils Percent Auto 6.8 % (0.0-7.0); Hematocrit 32.6 % (37.0-53.0); Hemoglobin* 10.6 gm/dL (13.5-17.5); Immature Granulocytes Abs Auto 0.05 K/uL (0.00-0.30); Lymphocytes Percent Auto 22.9 % (20-44); Mean Corpuscular HGB Conc 33 gm/dL (32-36); Mean Corpuscular Hemoglobin 34 pg (26-34); Mean Corpuscular Volume 105 fL (80-100); Monocytes Percent Auto 11.7 % (0.0-11.0); Neutrophils Percent Auto 57.7 % (42.0-72.0); Platelet Count* 284 K/uL (140-440); RDW Coefficient of Variation % 12.1 % (11.5-15.5); Red Blood Count 3.11 m/uL (4.30-5.90); White Blood Count* 11.04 K/uL (4.50-11.00)
[2022-07-17 07:00] VITALS: PULSE 60
[2022-07-17 07:12] LABS: Slide Review Reflex No
[2022-07-17 07:23] LABS: Albumin* 3.9 g/dL (3.3-5.0); Chloride* 104 mmol/L (96-114)
[2022-07-17 07:24] LABS: Potassium* 3.9 mmol/L (3.6-5.1); Sodium* 140 mmol/L (135-149)
[2022-07-17 07:25] VITALS: BP 144/106; BP 155/80; PULSE 57; RESP 20; TEMP 36.9; O2SAT 94
[2022-07-17 07:26] LABS: Creatinine* 1.2 mg/dL (0.5-1.5); Est. Creatinine Clearance* 40.89; Estimated Glomerular Filt Rate 63 ml/min
[2022-07-17 07:27] LABS: Alanine Aminotransferase* 16 U/L (4-50); Alkaline Phosphatase* 72 U/L (40-150); Aspartate Amino Transferase* 20 U/L (12-35); Bilirubin Total* 0.3 mg/dL (0.1-1.5); Blood Urea Nitrogen* 22 mg/dL (7-30); Calcium* 8.8 mg/dL (8.4-10.6); Carbon Dioxide* 27 mmol/L (20-32); Glucose* 93 mg/dL (60-115); Total Protein* 6.9 g/dL (6.0-8.3)
[2022-07-17 07:29] LABS: C Reactive Protein* 0.6 mg/dL (0.5-1.0)
[2022-07-17 07:32] LABS: Hemoglobin A1C* 5.31 % (0-5.6)
[2022-07-17 07:35] LABS: NT Pro B Type NatriureticPept* 1370 PG/mL (0-125)
[2022-07-17 07:38] LABS: Troponin I* 0.01 ng/mL (0.01-0.04)
[2022-07-17 07:42] LABS: Procalcitonin* 0.06 ng/mL (<0.50)
[2022-07-17 08:10] LABS: Iron* 33 ug/dL (49-181)
[2022-07-17 08:20] LABS: Percent Iron Saturation 10 % (20-50); Total Iron Binding Capacity 335 ug/dL (261-462)
[2022-07-17] MEDS: ISOSORBIDE MONONITRATE ER 30 MG TAB PO (09:02)
[2022-07-17] MEDS: OMEPRAZOLE 20 MG CAPSULE DR PO (09:02)
[2022-07-17] MEDS: LORATADINE 10 MG TABLET PO (09:02)
[2022-07-17] MEDS: AMIODARONE 200 MG TABLET PO (09:02)
[2022-07-17] MEDS: METOPROLOL TARTRATE 25 MG TABLET PO (09:03)
[2022-07-17] MEDS: APIXABAN 5 MG TABLET PO (09:03)
[2022-07-17] MEDS: BUDESONIDE 0.5 MG/2ML NEB NEB (09:03)
[2022-07-17] MEDS: ASPIRIN 81 MG TABLET EC PO (09:35)
[2022-07-17] MEDS: BACLOFEN 10 MG TABLET 5 MG PO (09:35)
[2022-07-17] MEDS: CARBOXYMETHYLCELLULOSE (REFRESH PLUS) TEARS 1 DROP EYE-BOTH (09:58)
[2022-07-17] MEDS: LIDOCAINE 5% PATCH TRANSDERMA (11:10)
[2022-07-17 11:30] VITALS: BP 159/98; BP 174/105; PULSE 62; RESP 20; TEMP 36.8; O2SAT 97
--- NOTE | 2022-07-17 16:16 | PC.NURSE ---
Please see eMar for meds provided to pt on day shift. New orders for Lidoderm patch and Akwa tears initiated after Dr. Lorenzo rounded. Prn baclofen for chronic left lower back pain r/t disc problem. Pt ual in room and hallway. 2 large bms this morning. Adequate I and O. Neck brace in place at all times with sacral mepilex under front and back of hard brace to prevent skin breakdown. Tele indicates NSR. Pt verbalized understanding of discharge diagnosis, new med prescriptions, home meds, f/up appt and sx to report urgently. Pt discharged via W/C to ER entrance @ 1540 by primary RN to wait for [facility] transport to his home in [place]. Taxi voucher provided.
--- NOTE | 2022-07-19 11:12 | PC.NURSE ---
Shift [id number] pt arrived to unit at 1430 from ED.? VSS, no SOB, no chest pain.? LS clear and diminished bases.? 96% on room air.? Independent in room.? Void x1.? AxO, joking around with staff.? Oriented to room, early dinner ordered per pt request.? Belongings checked.?
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
== END 2022-07-17 15:40 | disposition home or self-care (01) ==
LOC: ED 13:11 → MEDSURG 13:55
PROVIDERS: Family Medicine; Admitting Provider Internal Medicine; Emergency Provider Family Medicine; Visit Provider Internal Medicine
DX: J44.1 Chronic obstructive pulmonary disease with (acute) exacerbation (principal); R09.02 Hypoxemia; I48.91 Unspecified atrial fibrillation; S12.490A Other displaced fracture of fifth cervical vertebra, initial encounter for closed fracture; F12.10 Cannabis abuse, uncomplicated; F10.10 Alcohol abuse, uncomplicated; I25.10 Atherosclerotic heart disease of native coronary artery without angina pectoris; K21.9 Gastro-esophageal reflux disease without esophagitis; I11.0 Hypertensive heart disease with heart failure; I50.9 Heart failure, unspecified; I12.9 Hypertensive chronic kidney disease with stage 1 through stage 4 chronic kidney disease, or unspecified chronic kidney disease; N18.9 Chronic kidney disease, unspecified; M06.9 Rheumatoid arthritis, unspecified; Z79.52 Long term (current) use of systemic steroids; Z77.090 Contact with and (suspected) exposure to asbestos; Z79.82 Long term (current) use of aspirin; Z87.891 Personal history of nicotine dependence
CPT/HCPCS: 36415; 71045; 80053; 82330; 82803; 83036; 83540; 83550; 83735; 83880; 84145; 84484; 85025; 85379; 86140; 87040; 87635; 93005; 94640; 94761; 96374; 97166; 97535; 99284; 99285; G0378; A9270; J1940; J7626

== ENCOUNTER 2022-10-13 14:29 | Emergency (ER) | payer OTHER, MEDICARE, SELFPAY ==
[2022-10-13 15:36] VITALS: BP 140/80; PULSE 59; RESP 18; TEMP 36.6; O2SAT 96
[2022-10-13] MEDS: LIDOCAINE 1 % PF 30 ML INJECTION (17:17)
--- OUTSIDE RECORDS SUMMARY | 2022-10-13 17:21 | XMS_ITS | Continuity of Care Document ---
:[address] [facility] Care Team Providers Name Role Phone [facility] Unavailable Unavailable Problems Combined list of problems from Department of Defense and [place] [facility] facilities. It does not include entries that were removed or entered in error. Problem Status Onset Problem Date of Comments Source Date Type Resolution Acute non-ST segment Active Condition [place] elevation myocardial [facility] infarction Alcohol abuse Active Condition [place] (SNOMED CT 82048034) [facility] Anemia (SNOMED CT Active Condition [place] [id number][place] [facility] Ankle pain Active [place] [facility] Benign essential Active Condition [place] hypertension (OMED [facility] CT 5524316) CAD - Coronary Active Condition Sep 18, [place] artery disease 2015 Entered [facility] By: MARYELLEN LEON Comment: s/p stenting Cannabis abuse Active Condition [place] (SNOMED CT 49298719) [facility] Chronic kidney Active Condition [place] disease [facility] Drug monitoring done Active Condition [facility] Elevated liver Active Condition [place] enzymes level [facility] Gastroesophageal Active Condition [place] reflux disease [facility] (SNOMED CT 622662007) Hand pain Active [place] [facility] Hearing loss * Active Condition [place] (ICD-9-CM 389.9) [facility] HTN - Hypertension Active Condition [place] (SNOMED CT 28326548) [facility] Hyperlipidemia Active Condition [place] (SNOMED CT 99512768) [facility] Jt Replcmnt Stat, Active Condition [place] Knee [facility] Long-term current Active Condition [place] use of anticoagulant [facility] 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, [place]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 Entered [facility] By: MARYELLEN LEON Comment: [facility] 02/2022 Pain in joint Active Condition May 14, [place] involving shoulder 2010 Entere d [facility] region (ICD-9-CM By: 719.41) MARYELLEN LEON Comment: RIGHT Pain of right Active Condition [place] shoulder joint [facility] Paroxysmal atrial Active Condition [place] fibrillation [facility] Rhinitis Active Condition [place] [facility] Rib fracture Active Condition Dec 15, [place] 2018 Entered [facility] By: MARYELLEN LEON Comment: s/p fall 11/2018, RIGHT rib Seropositive Active Condition [place] rheumatoid arthritis [facility] Knee: arthralgia * Inactive Condition 05/04/2010 [place] (ICD-9-CM 719.46) [facility] Diagnosis: ICD-10-CM Active Diagnosis [place] M80.08XS Age-rel [facility] osteopor w current path fracture, verteb, sequelawith Provider Comments: Age-related osteoporosis with current pathological fracture, vertebra(e), sequela Diagnosis: ICD-10-CM Active Diagnosis [place] Z23 Encounter for [facility] immunizationwith Provider Comments: Encounter for Immunization Diagnosis: ICD-10-CM Active Diagnosis [place] R39.14 Feeling of [facility] incomplete bladder emptyingwith Provider Comments: Feeling of Incomplete Bladder Emptying Diagnosis: ICD-10-CM Active Diagnosis [place] Z71.3 Dietary [facility] counseling and surveillancewith Provider Comments: Dietary counseling and surveillance Diagnosis: ICD-10-CM Active Diagnosis [place] M50.021 Cervical [facility] disc disorder at C4-C5 level with myelopathywith Provider Comments: Cervical disc disorder at C4-C5 level with myelopathy Diagnosis: ICD-10-CM Active Diagnosis [place] F10.19 Alcohol abuse [facility] with unspecified alcohol-induced disorderwith Provider Comments: Alcohol abuse ([facility] [id number]) Diagnosis: ICD-10-CM Active Diagnosis [place] 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 Provider Comments: 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 (current) use of anticoagulants Diagnosis: ICD-10-CM Active Diagnosis [place] M06.9 Rheumatoid [facility] arthritis, unspecifiedwith Provider Comments: Seropositive rheumatoid arthritis ([facility] [id number]) Diagnosis: ICD-10-CM Active Diagnosis [place] Z71.89 Other [facility] specified counselingwith Provider Comments: Specified counseling, not listed elsewhere Diagnosis: ICD-10-CM Active Diagnosis [place] Z73.6 Limitation of [facility] activities due to disabilitywith Provider Comments: Limitation of activities due to disability Diagnosis: ICD-10-CM Active Diagnosis [place] Z71.89 Other [facility] specified counselingwith Provider Comments: Other specified Counseling Diagnosis: ICD-10-CM Active Diagnosis [place] Z74.09 Other reduced [facility] mobilitywith Provider Comments: Reduced Mobility Diagnosis: ICD-10-CM Active Diagnosis [place] F10.20 Alcohol [facility] dependence, uncomplicatedwith Provider Comments: Alcohol dependence, uncomplicated Admit Reason: FALL Active Diagnosis [place] DC [facility] Diagnosis: ICD-10-CM Active Diagnosis [place] R62.7 Adult failure [facility] to thrivewith Provider Comments: Adult Failure to Thrive Diagnosis: ICD-10-CM Active Diagnosis [place] I47.1 [facility] Supraventricular tachycardiawith Provider Comments: Multifocal atrial tachycardia (SCT [id number]) Diagnosis: ICD-10-CM Active Diagnosis [place] I48.0 Paroxysmal [facility] atrial fibrillationwith Provider Comments: Paroxysmal atrial fibrillation ([facility] [id number]) Diagnosis: ICD-10-CM Active Diagnosis [place] Z13.6 Encounter for [facility] screening for cardiovascular disorderswith Provider Comments: Encounter for Screening for Cardiovascular Disorders Diagnosis: ICD-10-CM Active Diagnosis [place] K64.8 Other [facility] hemorrhoidswith Provider Comments: Other Hemorrhoids Diagnosis: ICD-10-CM Active Diagnosis [place] I48.92 Unspecified V A [facility] atrial flutterwith Provider Comments: Unspecified Atrial Flutter Diagnosis: ICD-10-CM Active Diagnosis [place] I47.1 [facility] Supraventricular tachycardiawith Provider Comments: Multifocal atrial tachycardia (SNOMED CT 83042878) Diagnosis: ICD-10-CM Active Diagnosis [place] K02.9 Dental caries, [facility] unspecifiedwith Provider Comments: Dental Caries, unspecified Diagnosis: ICD-10-CM Active Diagnosis [place] H25.13 Age-related V A [facility] nuclear cataract, bilateralwith Provider Comments: Age-related nuclear cataract, bilateral Diagnosis: ICD-10-CM Active Diagnosis [place] I25.10 Athscl heart [facility] disease of [place] coronary artery w/o ang pctrswith Provider Comments: CAD - Coronary artery disease ([facility] [id number]) Medications Combined list of outpatient medications from Department of Defense and Veterans Affairs facilities. Medications provided include 1) outpatient medications from the last 15 months, and 2) patient-reported medications. Medication Details Route Status Patient Prescription Prescription Last Ordering Order Source Instructions Expires Number Dispense Provider Date Date ACETAMINOPH TAKE TWO ORALLY ACTIVE 02/09/2023 [id number] H OANG,VIE 02/11/ [place] 500MG TABLETS 2 T H 2021 [place] TAB BY MOUTH [facility] FOUR TIMES A DAY NEEDED *NOT TO EXCEED 4000MG IN 24 HOURS* FOR PAIN ACETAMINOPH TAKE TWO ORALLY DISCONT 01/13/2022 [id number] LEON,VIE 01/16/ [place] 500MG TABLETS INUED 2 T H 2020 [place] TAB BY MOUTH HCS FOUR TIMES A DAY NEEDED *NOT TO EXCEED 4000MG IN 24 HOURS* FOR PAIN ADALIMUMAB INJECT SUBCUT ACTIVE 10/01/2023 [id number] RIN DEN,TI 10/01/ [place] 40MG/0.8ML 40 MG ANEOUS 2 MOTHY D 2021 [place] A INJ,PEN,KIT UNDER HCS THE SKIN EVERY 2 WEEKS ADALIMUMAB INJECT SUBCUT DISCONT 01/12/2023 [id number] RI NDEN,TI 02/08/ [place] 40MG/0.8ML 40 MG ANEOUS INUED 2 MOTHY D 2021 [place] A INJ,PEN,KIT UNDER HCS THE SKIN EVERY 2 WEEKS ADALIMUMAB INJECT SUBCUT DISCONT 09/29/2022 [id number] MO LITOR,J 10/01/ [place] 40MG/0.8ML 40 MG ANEOUS INUE 2 ERRY A 2020 [place] INJ,PEN,KIT UNDER HCS THE SKIN EVERY 2 WEEKS ALBUTEROL INHALE 2 INHALA ACTIVE 07/25/2023 [id number] DANAY CASTROVIE 07/25/ [place] 90MCG/ACTUA PUFFS BY TION 2 T H 2021 [place] T (CFC-F) INHALATI HCS INHL,ORAL,8 ON EVERY .5GM DOSE 4 HOURS COUNTER NEEDED FOR IMMEDIAT E RELIEF OF SHORTNES S OF BREATH *SHAKE WELL* AMIODARONE TAKE ONE ORALLY ACTIVE 05/16/2023 [id number] MC CRARY,A 05/16/ [place] HCL TABLET 2 BBIE L 2021 [place] (PACERONE) BY MOUTH HCS 200MG TAB EVERY DAY FOR HEART RHYTHM - TAKE WITH FOOD AMIODARONE TAKE ONE ORALLY DISCONT 07/09/2022 [id number] M CCRARY,A 04/10/ [place] HCL TABLET INUED 2 BBIE L 2021 [place] (PACERONE) BY MOUTH (EDIT) HCS 200MG TAB TWICE A DAY FOR 30 DAYS, THEN TAKE ONE TABLET EVERY DAY FOR HEART RHYTHM - TAKE WITH FOOD APIXABAN TAKE ONE ORALLY ACTIVE 06/06/2023 [id number] EDUARDO ON, 06/06/ [place] 5MG TAB TABLET 2 HANG 2021 [place] BY MOUTH J HCS EVERY 12 HOURS TO PREVENT BLOOD CLOTS and STROKE. APIXABAN TAKE ONE ORALLY DISCONT 04/24/2023 [id number] HOW [place] 04/24/ [place] 5MG TAB TABLET INUED 2 RISTIN Y 2021 [place] BY MOUTH (EDIT) HCS EVERY 12 HOURS TO PREVENT BLOOD CLOTS and STROKE. APIXABAN TAKE ONE ORALLY DISCONT 05/10/2022 [id number] PRISON RARY,A 04/10/ [place] 5MG TAB TABLET INUED 2 BBIE L 2021 [place] BY MOUTH (EDIT) HCS EVERY 12 HOURS TO PREVENT BLOOD CLOTS and STROKE. ASPIRIN TAKE ONE ORALLY DISCONT 06/02/2022 [id number] DANAY NGVIE 07/26/ [place] 81MG TAB,EC TABLET INUED 2 T H 2020 [place] BY MOUTH HCS EVERY DAY ATORVASTATI TAKE ONE ORALLY ACTIVE 03/06/2023 [id number] H OAMATTHEW,VIE 03/05/ [place] CA 80MG TABLET 2 T H 2021 [place] TAB BY MOUTH HCS AT BEDTIME FOR CHOLESTE ROL REPLACES SIMVASTA TIN ATORVASTATI TAKE ORALLY DISCONT 06/02/2022 [id number] H OANG,VIE 06/03/ [place] CA 80MG ONE-HALF INUED 2 T H 2020 [place] TAB TABLET (EDIT) HCS BY MOUTH AT BEDTIME FOR CHOLESTE ROL REPLACES SIMVASTA TIN CEPHALEXIN TAKE 1 ORALLY ACTIVE [place]JAT[place] 500MG CAP CAPSULE T H 2021 [place] BY MOUTH HCS FOUR TIMES A DAY CHOLECALCIF TAKE ONE ORALLY ACTIVE 06/29/2023 [id number] LEON,VIE 07/27/ [place] RONAK 25MCG TABLET 2 T H 2021 [place] (1,000UNIT) BY MOUTH HCS TAB EVERY DAY CHOLECALCIF TAKE ONE ORALLY DISCONT 06/02/2022 [id number] LEON,VIE 06/03/ [place] RONAK 25MCG TABLET INUED 2 T H 2020 [place] (1,000UNIT) BY MOUTH HCS TAB EVERY DAY CYANOCOBALA TAKE ONE ORALLY ACTIVE 03/06/2023 [id number] LEON,VIE 05/30/ [place] 1000MCG TABLET 2 T H 2021 [place] TAB BY MOUTH HCS EVERY DAY CYANOCOBALA TAKE ONE ORALLY DISCONT 06/02/2022 [id number] LEON,VIE 06/03/ [place] 1000MCG TABLET INUED 2 T H 2020 [place] TAB BY MOUTH HCS EVERY DAY DOCUSATE NA TAKE TWO ORALLY ACTIVE LEON,VIE 06/24 / [place] 50MG/SENNOS TABLETS T H 2021 [place] A IDES 8.6MG BY MOUTH HCS TAB TWICE A DAY FLUTICASONE SPRAY 1 NASAL ACTIVE 06/29/2023 [id number] H OANG,VIE 07/02/ [place] PROPIONATE SPRAY IN 2 T H 2021 [place] A 50MCG/SPRAY EACH HCS SOLN,NASAL, NOSTRIL 16GM TWICE A DAY NEEDED FOR RUNNY NOSE USE REGULARL Y FOR RELIEF OF ALLERGIE S/CONGES TION FOLIC ACID TAKE ONE ORALLY ACTIVE 03/06/2023 [id number] H OANG,VIE 04/25/ [place] 1MG TAB TABLET 2 T H 2021 [place] BY MOUTH HCS EVERY DAY FOLIC ACID TAKE ONE ORALLY DISCONT 01/12/2023 [id number] RINDEN,TI 02/04/ [place] 1MG TAB TABLET INUED 2 MOTHY D 2021 [place] BY MOUTH HCS EVERY DAY FOLIC ACID TAKE ONE ORALLY DISCONT 01/13/2022 [id number] ALVANPOUR 02/19/ [place] 1MG TAB TABLET INUE 1 ,RAGHAVENDRA 2020 [place] BY MOUTH HCS EVERY DAY GABAPENTIN TAKE ONE ORALLY ACTIVE 06/29/2023 [id number] HO ANG,VIE 07/02/ [place] 300MG CAP CAPSULE 2 T H 2022 [place] BY MOUTH HCS THREE TIMES A DAY GABAPENTIN TAKE 1 ORALLY ACTIVE JATIN [place] 300MG CAP CAPSULE T H 2021 [place] BY MOUTH HCS THREE TIMES A DAY HEMORRHOIDA APPLY RECTAL ACTIVE [place] L OINT,RTL THIN SSEIN 2021 [place] LAYER TO ISSAK HCS RECTUM FOUR TIMES A DAY NEEDED ISOSORBIDE TAKE ORALLY DISCONT 03/06/2023 [id number] CHARLES LEONE 03/13/ [place] MONONITRATE ONE-HALF INUED 2 T H 2021 [place] 60MG TAB,SA TABLET HCS BY MOUTH EVERY DAY ISOSORBIDE TAKE ORALLY DISCONT 03/22/2022 [id number] FB-SAG ER, 02/21/ [place] MONONITRATE ONE-HALF INUED 2 ANGELA 2021 [place] 60MG TAB,SA TABLET HCS BY MOUTH EVERY DAY ISOSORBIDE TAKE ONE ORALLY DISCONT 06/02/2022 [id number] JATIN LEON 06/23/ [place] MONONITRATE TABLET INUED 2 T H 2020 [place] 60MG TAB,SA BY MOUTH HCS EVERY DAY FOR CHEST PAIN LIDOCAINE APPLY 1 TOPICA ACTIVE 06/29/2023 [id number] JATIN LEON 07/02/ [place] 5% PATCH PATCH LLY 2 T H 2021 [place] TOPICALL HCS Y NEEDED FOR PAIN. WEAR FOR ONLY 12 HOURS THEN REMOVE FOR 12 HOURS. LIDOCAINE APPLY TOPICA ACTIVE JATIN LE[place] 06/24/ [place] PATCH 1-3 LLY T H 2021 [place] PATCH 4% HCS TOPICALL Y EVERY DAY LORATADINE TAKE ONE ORALLY ACTIVE 06/29/2023 [id number] HO GRABIELVIE 07/13/ [place] 10MG TAB TABLET 2 T H 2021 [place] BY MOUTH HCS EVERY DAY FOR ALLERGY SYMPTOMS LORATADINE TAKE ONE ORALLY DISCONT 06/02/2022 [id number] H OANGCHARLESE 06/23/ [place] 10MG TAB TABLET INUED 2 T H 2020 [place] BY MOUTH HCS EVERY DAY FOR ALLERGY SYMPTOMS MAGNESIUM TAKE 1 ORALLY 04/05/2022 [id number] RANWEI LER 03/06/ [place] CITRATE BOTTLE 2 ,VJ B 2021 [place] LIQUID,ORAL BY MOUTH HCS ONCE AT 12PM (NOON) ONE DAY BEFORE PROCEDUR E FOR COLON PREP METHOCARBAM TAKE ONE ORALLY ACTIVE 06/29/2023 [id number] H CHARLES IZAGUIRREE 07/02/ [place] 500MG TABLET 2 T H 2021 [place] TAB BY MOUTH HCS THREE TIMES A DAY NEEDED FOR MUSCLE SPASM OR MUSCLE PAIN METHOCARBAM TAKE ORALLY ACTIVE LEONJATIN 06/24/ [place] TAB ONE-HALF T H 2021 [place] TO ONE HCS TABLET BY MOUTH EVERY 6 HOURS NEEDED METOPROLOL TAKE ONE ORALLY ACTIVE 03/06/2023 [id number] H OAJATIN CASTRO 03/13/ [place] TARTRATE TABLET 2 T H 2021 [place] 50MG TAB BY MOUTH HCS TWICE A DAY METOPROLOL TAKE ONE ORALLY DISCONT 03/22/2022 [id number] F B-GABRIEL, 02/21/ [place] TARTRATE TABLET INUED 2021 [place] 50MG TAB BY MOUTH HCS TWICE A DAY METOPROLOL TAKE ORALLY DISCONT 06/02/2022 [id number] CHARLES LEONE 08/07/ [place] TARTRATE ONE-HALF INUED 2 T H 2020 [place] 50MG TAB TABLET HCS BY MOUTH TWICE A DAY FOR HEART OXYCODONE TAKE ORALLY ACTIVE JATIN LEON 06/24/ [place] TAB ONE-HALF T H 2021 [place] TO ONE HCS TABLET BY MOUTH EVERY 4 HOURS NEEDED PANTOPRAZOL TAKE ONE ORALLY ACTIVE 03/06/2023 [id number] LEON,VIE 04/30/ [place] E NA 40MG TABLET 2 T H 2021 [place] TAB,EC BY MOUTH HCS EVERY MORNING ONE-HALF HOUR BEFORE EATING TO DECREASE STOMACH ACID TAKE ON AN EMPTY STOMACH, AT LEAST 30 MINUTES PRIOR TO MEAL PANTOPRAZOL TAKE ONE ORALLY DISCONT 06/02/2022 [id number] LEON,VIE 08/07/ [place] NA 40MG TABLET INUED 2 T H 2020 [place] TAB,EC BY MOUTH HCS EVERY MORNING ONE-HALF HOUR BEFORE EATING TO DECREASE STOMACH ACID TAKE ON AN EMPTY STOMACH, AT LEAST 30 MINUTES PRIOR TO MEAL PEG-3350/EL TAKE 1 ORALLY 04/05/2022 [id number] RA NWEILER 03/06/ [place] ECTROLYTES CONTAINE 2 [...] EXAM. POLYETHYLEN TAKE 17 ORALLY ACTIVE 06/29/2023 [id number] HO ANG,VIE 07/02/ [place] E GLYCOL GRAMS BY 2 T H 2021 [place] 3350 MOUTH HCS PWDR,ORAL TWICE A DAY NEEDED FOR CONSTIPA TION *MIX IN 4 TO 8 OUNCES OF LIQUID DIRECTED *USE COVER TO MEASURE POWDER* POLYETHYLEN TAKE 17 ORALLY ACTIVE LEON,VIE 06/24/ [place] E GLYCOL GRAMS BY T H 2021 [place] 3350 MOUTH HCS PWDR,ORAL TWICE A DAY PREDNISONE TAKE ONE ORALLY ACTIVE 01/12/2023 [id number] R INDEN,TI 01/19/ [place] 10MG TAB TABLET 2 MOTHY D 2021 [place] BY MOUTH HCS EVERY DAY PREDNISONE TAKE ONE ORALLY DISCONT 03/21/2022 [id number] M OL[place],J 03/20/ [place] 10MG TAB TABLET INUE 1 ERRY A 2020 [place] BY MOUTH HCS EVERY DAY SULFASALAZI TAKE TWO ORALLY ACTIVE 01/12/2023 [id number] RINDEN,TI 01/19/ [place] 500MG TABLETS 2 MOTHY D 2021 [place] TAB BY MOUTH HCS TWICE A DAY SULFASALAZI TAKE TWO ORALLY DISCONT 03/21/2022 [id number] [place],J 0504/ [place] 500MG TABLETS INUE 1 ERRY A 2020 [facility] TAB BY MOUTH [facility] TWICE A DAY TAMSULOSIN TAKE ONE ORALLY ACTIVE 06/29/2023 [id number] JATIN WHITESIDE 07/02/ [place] HCL 0.4MG CAPSULE 2 T H 2021 [place] CAP BY MOUTH [facility] AT BEDTIME TAMSULOSIN TAKE 1 ORALLY ACTIVE JATIN LEON 06/24/ [place] HCL 0.4MG CAPSULE T H 2021 [place] CAP BY MOUTH [facility] EVERY DAY Allergies, Adverse Reactions, Alerts Combined list of allergies from Department of Defense and Veterans Affairs facilities. It does not include entries that were removed or entered in error. Substance Category Reaction Severity Reaction Status Date Comments S ource type Reported LISINOPRIL Propensity Cough Propensity active [place] to adverse to adverse 1 IS [facility] reactions reactions to drug to drug (finding) (finding) Immunizations Combined list of available immunizations from the Department of Defense and Veterans Affairs facilities. Immunization Series Date Administered Site Reaction Lot CVX Drug St atus Comments Source Given By Number Code Engagement Specialist INFLUENZA complet [place] VACCINE, 2021 ed [facility] QUADRIVALENT, HCS ADJUVANTED TDAP complet [place] 2021 ed [facility] HCS COVID-19 4 complet PFR; [place] (PFIZER), 2021 ed [id number]; [place] MRNA, LNP-S, 02 HCS PF, 30 2 MCG/0.3 ML DOSE, JJ-SUCROSE (AGES 12+ YEARS) COVID-19 3 complet PRF; [place] (PFIZER), 2020 ed [id number]; [place] MRNA, LNP-S, 02 HCS PF, 30 2 MCG/0.3 ML DOSE INFLUENZA, complet [place] INJECTABLE, 2020 ed [place] QUADRIVALENT, HCS PRESERVATIVE FREE COVID-19 2 complet PFR; [place] (PFIZER), 2020 ed [id number]; [place] MRNA, LNP-S, 02 HCS PF, 30 1 MCG/0.3 ML DOSE COVID-19 1 complet PFR; [place] (Konokopia), 2020 ed [id number]; [place] MRNA, LNP-S, 02 CBOC [...] CO [place] 2012 ed INC, [place] [id number], HCS [id number] [place]AP complet glaxosmit [place] 2009 ed hkline,ac [place] [id number], HCS 01/03/12 Results Combined list of recent chemistry, hematology and other laboratory results from Department of Defense and Veterans Affairs, ranging from 15 months to all on record, depending upon the facility. Order Results Value Reference Date Interpretation Specimen Commen ts Source Name Range R[place]UM[place] CREATININE 1.5 0.7 - 1.2 07/19 H Specimen T ype: PLASMA [place] [MASS/VOLU /2021 No comment en tered. IS ID HCS CHEM ME] IN Ordering Provid er: JENNA LUIS PANEL SERUM OR Report Release d Date/Time: Jan 11, 2022 11:04 AM PLASMA Reporting Lab: [facility] [address] [place] [facility] [address] Performing Lab: [facility] [place] [address] RHEUMATO ALKALINE 72 40 - 150 07/19 Specimen Type : PLASMA [place] PHOSPHATAS /2021 No comment en tered. IS [facility] CHEM E Ordering Provid er: JENNA LUIS PANEL [ENZYMATIC Report Relea sed Date/Time: Jan 11, 2022 11:04 AM ACTIVITY/V Reporting La b: [facility] OLUME] IN [address] [facility] [address] SERUM OR Performing Lab : [facility] PLASMA [address] [place] [facility] [address] RHEUMATO ALANINE 12 <55 - 55 07/19 Specimen Type: PLASMA [place] AMINOTRANS /2021 No comment en tered. IS [facility] CHEM FERASE Ordering Provid er: JENNA LUIS PANEL [ENZYMATIC Report Relea sed Date/Time: Jan 11, 2022 11:04 AM ACTIVITY/V Reporting La b: [facility] OLUME] IN [facility] [address] [facility] [address] SERUM OR Performing Lab : [facility] PLASMA [address] [place] [facility] [address] RHEUMATO ASPARTATE 11 <34 - 34 07/19 Specimen Typ e: PLASMA [place] LOG[place] AMINOTRANS /2021 No comment en tered. IS [facility] CHEM FERASE Ordering Provid er: JENNA LUIS PANEL [ENZYMATIC Report Relea sed Date/Time: Jan 11, 2022 11:04 AM ACTIVITY/V Reporting La b: [facility] OLUME] IN [address] [facility] [address] SERUM OR Performing Lab : [facility] PLASMA [address] [place] [facility] [address] RHEUMATO C REACTIVE 5.28 <5.00 - 09/02 H Specimen Typ e: PLASMA [place] PROTEIN 5.00 /2021 No comment enter ed. IS [facility] CHEM [MASS/VOLU Ordering Pro vider: JENNA LUIS PANEL ME] IN Report Released Date/Time: Jan 11, 2022 11:04 AM SERUM OR Reporting Lab: [facility] PLASMA BY [facility] [address] HIGH Performing Lab: [facility] SENSITIVIT [facility] [address] Y METHOD RHEUMATO GLOMERULAR 49 60 09/ L Specimen Typ e: PLASMA [place] LOGY No comment en tered. IS ID HCS CHEM RATE/1.73 Ordering Prov ider: JENNA LUIS PANEL SQ Report Released Date/Time: Jan 11, 2022 11:04 AM TERI Reporting La b: [facility] HCS D [VOLUME [facility] [address] RATE/AREA] Performing L ab: [facility] HCS IN SERUM, [facility] [address] PLASMA OR BLOOD BY CREATININE -BASED FORMULA (CKD-EPI) RHEUMATO LEUKOCYTES 13.17 4.0 - 11.0 / H Specimen Type: BLOOD [place] [#/VOLUME] /2021 No comment en tered. IS [facility] HEME IN BLOOD Ordering Provi maria: JENNA LUIS PANEL BY Report Released Date/Time: Jan 11, 2022 11:04 AM AUTOMATED Reporting Lab : [facility] COUNT [address] [facility] [address] Performing Lab: [facility] [address] [place] [facility] [address] RHEUMATO ERYTHROCYT 3.21 4.6 - 6.2 07/19 L Specimen T ype: BLOOD [place] LOG[place] No comment enter ed. IS [facility] HEME [#/VOLUME] Ordering Pro vider: JENNA LUIS IN BLOOD Report Release d Date/Time: Jan 11, 2022 11:04 AM BY Reporting Lab: [facility] AUTOMATED [facility] [address] COUNT Performing Lab: [facility] [address] [place] [facility] [address] RHEUMATO HEMOGLOBIN 10.9 13.5 - 09/ L Specimen Typ e: BLOOD [place] LOG[place] [MASS/VOLU 17.9 No comment en tered. IS [facility] HEME ME] IN Ordering Provid er: JENNA LUIS PANEL BLOOD Report Released Date/Time: Jan 11, 2022 11:04 AM Reporting Lab: [facility] [address] [place] [facility] [address] Performing Lab: [facility] [address] [place] [facility] [address] RHEUMATO HEMATOCRIT 33.9 41 - 54 07/19 L Specimen Typ e: BLOOD [place] LOG[place] [VOLUME /2021 No comment enter ed. IS [facility] HEME FRACTION] Ordering Prov ider: JENNA LUIS PANEL OF BLOOD Report Release d Date/Time: Jan 11, 2022 11:04 AM BY Reporting Lab: [facility] [address] [facility] [address] COUNT Performing Lab: [place] [address] [facility] [address] RHEUMATO MCV 105.6 80 - 100 07/19 H Specimen Type: BLOOD [place] LOGY [ENTITIC /2021 No comment ente red. IS [facility] HEME VOLUME] BY Ordering Pro vider: JENNA LUIS PANEL AUTOMATED Report Releas ed Date/Time: Jan 11, 2022 11:04 AM COUNT Reporting Lab: [facility] [address] [place] [facility] [address] Performing Lab: [facility] [address] [place]N[address] [facility] [address] RHEUMATO MCH 34.0 27 - 33 07/19 H Specimen Type: BLOOD [place] LOGY [ENTITIC /2021 No comment ente red. IS [facility] HEME MASS] BY Ordering Provi maria: JENNA LUIS PANEL AUTOMATED Report Releas ed Date/Time: Jan 11, 2022 11:04 AM COUNT Reporting Lab: [facility] [address] [facility] [address] Performing Lab: [facility] [address] [facility] [address] RHEUMATO MCHC 32.2 32.0 - 07/19 Specimen Type: BLOOD [place] LOGY [MASS/VOLU 37.5 /2021 No comment en tered. IS [facility] HEME ME] BY Ordering Provid er: JENNA LUIS PANEL AUTOMATED Report Releas ed Date/Time: Jan 11, 2022 11:04 AM COUNT Reporting Lab: [facility] [address] [facility] [address] Performing Lab: [facility] [address] [facility] [address] RHEUMATO PLATELETS pending 07/19 Specimen Type : BLOOD [place] LOGY [#/VOLUME] /2021 No comment en tered. IS [facility] HEME IN BLOOD Ordering Provi maria: JENNA LUIS PANEL BY Report Released Date/Time: Jan 11, 2022 11:04 AM AUTOMATED Reporting Lab : [facility] COUNT [address] [place] [address] Performing Lab: [facility] [address] [place] [address] RHEUMATO PLATELET pending 07/19 Specimen Type: BLOOD [place] LOGY No comment enter ed. IS [facility] HEME VOLUME Ordering Provid er: JENNA LUIS PANEL [ENTITIC Report Release d Date/Time: Jan 11, 2022 11:04 AM VOLUME] IN Reporting La b: [facility] BLOOD BY [address] [place] [address] AUTOMATED Performing La b: [facility] COUNT [address] [place] [address] RHEUMATO NEUTROPHIL 53.0 07/19 Specimen Typ e: BLOOD [place] LOG[place] S/ No comment enter ed. IS [facility] HEME LEUKOCYTES Ordering Pro vider: JENNA LUIS PANEL IN BLOOD Report Release d Date/Time: Jan 11, 2022 11:04 AM BY MANUAL Reporting Lab : [facility] [place] [address] Performing Lab: [facility] [address] [place] [address] RHEUMATO LYMPHOCYTE 24.3 07/19 Specimen Typ e: BLOOD [place] LOG[place] S/ No comment enter ed. IS [facility] HEME LEUKOCYTES Ordering Pro vider: JENNA LUIS PANEL IN BLOOD Report Release d Date/Time: Jan 11, 2022 11:04 AM BY MANUAL Reporting Lab : [facility] COUNT [address] [place] [address] Performing Lab: [facility] [address] [place] [address] RHEUMATO MONOCYTES/ 9.6 07/19 Specimen Typ e: BLOOD [place] LOGY No comment enter ed. IS [facility] HEME LEUKOCYTES Ordering Pro vider: JENNA LUIS PANEL IN BLOOD Report Release d Date/Time: Jan 11, 2022 11:04 AM BY Reporting Lab: [facility] [place]OMATED [place] [address] COUNT Performing Lab: [facility] [address] [place] [address] RHEUMATO EOSINOPHIL 11.2 07/19 Specimen Typ e: BLOOD [place] LOGY S/ No comment enter ed. IS [facility] HEME LEUKOCYTES Ordering Pro vider: JENNA LUIS PANEL IN BLOOD Report Release d Date/Time: Jan 11, 2022 11:04 AM BY Reporting Lab: [facility] AUTOMATED [facility] [address] COUNT Performing Lab: [facility] [address] [place] [address] RHEUMATO BASOPHILS/ 1.0 09/02 Specimen Typ e: BLOOD [place] LOGY 100 /2021 No comment enter ed. IS [facility] HEME LEUKOCYTES Ordering Pro vider: JENNA LUIS PANEL IN BLOOD Report Release d Date/Time: Jan 11, 2022 11:04 AM BY MANUAL Reporting Lab : [facility] [place] [address] Performing Lab: [facility] [place] [address] RHEUMATO ERYTHROCYT 12.1 11.5 - 07/19 Specimen Typ e: BLOOD [place] LOGY E 14.5 No comment enter ed. IS [facility] HEME DISTRIBUTI Ordering Pro vider: JENNA LUIS PANEL ON WIDTH Report Release d Date/Time: Jan 11, 2022 11:04 AM [RATIO] BY Reporting La b: [facility] AUTOMATED [facility] [address] COUNT Performing Lab: [facility] [place] [address] RHEUMATO LYMPHOCYTE 3.20 1.0 - 4.0 09 Specimen T ype: BLOOD [place] LOGY S No comment enter ed. IS [facility] HEME [#/VOLUME] Ordering Pro vider: JENNA LUIS PANEL IN BLOOD Report Release d Date/Time: Jan 11, 2022 11:04 AM BY Reporting Lab: [facility] AUTOMATED [facility] [address] COUNT Performing Lab: [facility] [address] [facility] [facility] [address] RHEUMATO MONOCYTES 1.26 0.1 - 1.0 09/02 H Specimen Ty pe: BLOOD [place] LOGY [#/VOLUME] /2021 No comment en tered. IS [facility] HEME IN BLOOD Ordering Provi maria: JENNA LUIS PANEL BY Report Released Date/Time: Jan 11, 2022 11:04 AM AUTOMATED Reporting Lab : [facility] [place] [address] Performing Lab: [facility] [address] [facility] [address] RHEUMATO NEUTROPHIL 6.99 2.0 - 7.7 09/ Specimen T ype: BLOOD [place] LOG[place] S /2021 No comment enter ed. IS [facility] HEME [#/VOLUME] Ordering Pro vider: JENNA LUIS PANEL IN BLOOD Report Release d Date/Time: Jan 11, 2022 11:04 AM BY Reporting Lab: [facility] AUTOMATED [facility] [address] COUNT Performing Lab: [facility] [address] [place] [facility] [address] RHEUMATO EOSINOPHIL 1.47 0 - 0.5 09/ H Specimen Typ e: BLOOD [place] LOGY S /2021 No comment enter ed. IS [facility] HEME [#/VOLUME] Ordering Pro vider: JENNA LUIS PANEL IN BLOOD Report Release d Date/Time: Jan 11, 2022 11:04 AM BY Reporting Lab: [facility] AUTOMATED [facility] [address] COUNT Performing Lab: [facility] [address] [place] [facility] [address] RHEUMATO BASOPHILS 0.13 0 - 0.2 07/19 Specimen Type : BLOOD [place] LOGY [#/VOLUME] /2021 No comment en tered. IS [facility] HEME IN BLOOD Ordering Provi maria: JENNA LUIS PANEL BY Report Released Date/Time: Jan 11, 2022 11:04 AM AUTOMATED Reporting Lab : [facility] COUNT [address] [place] [facility] [address] Performing Lab: [facility] [address] [place] [facility] [address] RHEUMATO IG(META,MY 0.9 07/19 Specimen Typ e: BLOOD [place] CARO,PRO) /2021 No comment ente red. IS [facility] HEME Ordering Provid er: JENNA LUIS PANEL Report Released Date/Time: Jan 11, 2022 11:04 AM Reporting Lab: [facility] [address] [place] [facility] [address] Performing Lab: [facility] [address] [place] [facility] [address] RHEUMATO IMMATURE 0.12 0 - 0.1 09/02 H Specimen Type: BLOOD [place] GRANULOCYT /2021 No comment en tered. IS [facility] HEME ES Ordering Provid er: JENNA LUIS PANEL [PRESENCE] Report Relea sed Date/Time: Jan 11, 2022 11:04 AM IN BLOOD Reporting Lab: [facility] BY [address] [place] [address] AUTOMATED Performing La b: [facility] COUNT [address] [place] [address] RHEUMATO ERYTHROCYT 22 5 - 15 09/ H Specimen Typ e: BLOOD [place] LOG[place] E /2021 No comment enter ed. IS [facility] HEME SEDIMENTAT Ordering Pro vider: JENNA LUIS PANEL ION RATE Report Release d Date/Time: Jan 11, 2022 11:04 AM Reporting Lab: [facility] [address] [place] [address] Performing Lab: [facility] [address] [place] [address] URINALYS COLOR OF YELLOW 06/24 Specimen Type: URINE [place] IS URINE /2021 No comment enter ed. IS [facility] Ordering Provid er: JAYDE MENDOZA Report Released Date/Time: Jun 24, 2022 06:55 PM Reporting Lab: [facility] [address] [place] [address] Performing Lab: [facility] [address] [place] [address] URINALYS SPECIFIC 1.039 1.003 - 06/24 H Specimen Type: URINE [place] IS GRAVITY OF 1.035 /2021 No comment en zach. IS [facility] URINE Ordering Provid er: JAYDE MENDOZA Report Released Date/Time: Jun 24, 2022 06:55 PM Reporting Lab: [facility] [address] [place] [address] Performing Lab: [facility] [address] [place] [address] URINALYS BILIRUBIN. NEGATIVE 06/24 Specimen Ty pe: URINE [place] IS TOTAL /2021 No comment enter ed. IS [facility] [PRESENCE] Ordering Pro vider: JAYDE MENDOZA IN URINE Report Release d Date/Time: Jun 24, 2022 06:55 PM BY TEST Reporting Lab: [facility] STRIP [address] [place] [address] Performing Lab: [facility] [address] [place] [address] URINALYS KETONES NEGATIVE 06/24 Specimen Type: URINE [place] IS [MASS/VOLU /2021 No comment en zach. IS [facility] ME] IN Ordering Provid er: JAYDE MENDOZA W URINE BY Report Release d Date/Time: Jun 24, 2022 06:55 PM TEST STRIP Reporting La b: [facility] [place] [address] Performing Lab: [facility] [address] [place] [address] URINALYS GLUCOSE NEGATIVE <30 - 30 06/24 Specimen Type : URINE [place] IS [MASS/VOLU /2021 No comment en zach. IS [facility] ME] IN Ordering Provid er: JAYDE MENDOZA W URINE BY Report Release d Date/Time: Jun 24, 2022 06:55 PM TEST STRIP Reporting La b: [facility] [place] [address] Performing Lab: [facility] [address] [place] [address] URINALYS PROTEIN 50 <20 - 20 06/24 Specimen Type: URINE [place] IS [MASS/VOLU /2021 No comment en zach. IS [facility] ME] IN Ordering Provid er: JAYDE MENDOZA W URINE BY Report Release d Date/Time: Jun 24, 2022 06:55 PM TEST STRIP Reporting La b: [facility] [place] [address] Performing Lab: [facility] [address] [place] [address] URINALYS PH OF 6.5 5.0 - 8.0 06/24 Specimen Type : URINE [place] IS URINE BY /2021 No comment jessica bills. IS [facility] TEST STRIP Ordering Pro vider: JAYDE MENDOZA Report Released Date/Time: Jun 24, 2022 06:55 PM Reporting Lab: [facility] [address] [place] [address] Performing Lab: [facility] [address] [place] [address] URINALYS LEUKOCYTES 17 0 - 7 06/24 H Specimen Typ e: URINE [place] IS [#/AREA] /2021 No comment jessica bills. IS [facility] IN URINE Ordering Provi maria: JAYDE MENDOZA W SEDIMENT Report Release d Date/Time: Jun 24, 2022 06:55 PM BY Reporting Lab: [facility] MICROSCOPY [address] [facility] [address] HIGH POWER Performing L ab: [facility] FIELD [place] [address] URINALYS BACTERIA NONE 06/24 Specimen Type: URINE [place] IS [PRESENCE] SEEN /2021 No comment en tered. IS [facility] IN URINE Ordering Provi maria: JAYDE MENDOZA SEDIMENT Report Release d Date/Time: Jun 24, 2022 06:55 PM BY LIGHT Reporting Lab: [facility] MICROSCOPY [facility] [address] Performing Lab: [facility] [address] [place] [facility] [address] URINALYS CALCIUM FEW 06/24 Specimen Type: URINE [place] IS OXALATE /2021 No comment enter ed. IS [facility] CRYSTALS Ordering Provi maria: JAYDE MENDOZA [PRESENCE] Report Relea sed Date/Time: Jun 24, 2022 06:55 PM IN URINE Reporting Lab: [facility] SEDIMENT [facility] [address] [facility] [address] BY LIGHT Performing Lab : [facility] MICROSCOPY [facility] [address] URINALYS ERYTHROCYT >180 0 - 3 06/24 H Specimen Typ e: URINE [place] IS ES /2021 No comment enter ed. IS [facility] [#/AREA] Ordering Provi maria: JAYDE MENDOZA IN URINE Report Release d Date/Time: Jun 24, 2022 06:55 PM SEDIMENT Reporting Lab: [facility] BY [address] [facility] [address] MICROSCOPY Performing L ab: [facility] HIGH POWER [facility] [address] FIELD URINALYS APPEARANCE TURBID 06/24 Specimen Typ e: URINE [place] IS OF URINE /2021 No comment ente red. IS [facility] Ordering Provid er: JAYDE MENDOZA Report Released Date/Time: Jun 24, 2022 06:55 PM Reporting Lab: [facility] [address] [place] [facility] [address] Performing Lab: [facility] [address] [place] [facility] [address] URINALYS EPITHELIAL NONE 06/24 Specimen Typ e: URINE [place] IS CELLS.SQUA SEEN /2021 No comment en tered. IS [facility] MOUS Ordering Provid er: JAYDE MENDOZA [#/AREA] Report Release d Date/Time: Jun 24, 2022 06:55 PM IN URINE Reporting Lab: [facility] SEDIMENT [facility] [address] BY Performing Lab: [facility] MICROSCOPY [address] [facility] [address] HIGH POWER FIELD URINALYS HEMOGLOBIN 3+ 06/24 Specimen Typ e: URINE [place] IS [PRESENCE] /2021 No comment en tered. IS [facility] IN URINE Ordering Provi maria: JAYDE MENDOZA W BY TEST Report Released Date/Time: Jun 24, 2022 06:55 PM STRIP Reporting Lab: [facility] [address] [facility] [address] Performing Lab: [facility] [address] [place] [facility] [address] URINALYS NITRITE NEGATIVE 06/24 Specimen Type: URINE [place] IS [PRESENCE] /2021 No comment en tered. IS [facility] IN URINE Ordering Provi maria: JAYDE MENDOZA W BY TEST Report Released Date/Time: Jun 24, 2022 06:55 PM STRIP Reporting Lab: [facility] [address] [place] [facility] [address] Performing Lab: [facility] [address] [place] [facility] [address] URINALYS LEUKOCYTE 25 06/24 Specimen Type : URINE [place] IS ESTERASE No comment jessica bills. IS [facility] [PRESENCE] Ordering Pro vider: JAYDE MENDOZA IN URINE Report Release d Date/Time: Jun 24, 2022 06:55 PM BY TEST Reporting Lab: [facility] STRIP [place] [address] Performing Lab: [facility] [address] [facility] [address] AST/SGOT ASPARTATE 19 <34 - 34 06/24 Specimen Typ e: PLASMA [place] AMINOTRANS /2021 No comment en tered. IS [facility] FERASE Ordering Provid er: JAYDE MENDOZA W [ENZYMATIC Report Relea sed Date/Time: Jun 24, 2022 08:09 PM ACTIVITY/V Reporting La b: [facility] OLUME] IN [facility] [address] [facility] [address] SERUM OR Performing Lab : [facility] PLASMA [address] [place] [facility] [address] POTASSIU POTASSIUM 4.9 3.5 - 5.1 06/24 Specimen Ty pe: PLASMA [place] M [MOLES/VOL /2021 No comment en tered. IS [facility] UME] IN Ordering Provid er: JAYDE MENDOZA SERUM OR Report Release d Date/Time: Jun 24, 2022 08:09 PM PLASMA Reporting Lab: [facility] [place] [address] Performing Lab: [facility] [address] [place] [address] PROTEIN, PROTEIN 6.8 6.0 - 8.3 06/24 Specimen Type : PLASMA [place] TOTAL [MASS/VOLU /2021 No comment en tered. IS [facility] ME] IN Ordering Provid er: JAYDE MENDOZA SERUM OR Report Release d Date/Time: Jun 24, 2022 08:09 PM PLASMA Reporting Lab: [facility] [place] [address] Performing Lab: [facility] [place] [address] PROTHROM INR IN 1.1 0.8 - 1.1 06/24 Specimen Type : PLASMA [place] BIN PLATELET /2021 No comment ente red. IS [facility] TIME/INR POOR Ordering Provi maria: JAYDE MENDOZA PLASMA BY Report Releas ed Date/Time: Jun 24, 2022 06:55 PM COAGULATIO Reporting La b: [facility] N ASSAY [address] [place] [facility] [address] Performing Lab: [facility] [place] [address] PROTHROM PROTHROMBI 12.1 9.4 - 12.5 06/24 Specimen Type: PLASMA [place] BIN N TIME /2021 No comment enter ed. IS [facility] TIME/INR (PT) Ordering Provi maria: JAYDE MENDOZA Report Released Date/Time: Jun 24, 2022 06:55 PM Reporting Lab: [facility] [place] [address] Performing Lab: [facility] [address] [place] [facility] [address] COVID-19 SARS-COV-2 Not 06/24 Specimen Typ e: NASOPHARYNGEAL [place] DIAGNOST (COVID-19) Detected /2021 Comment: Josue boo GeneXpert (618) IS [facility] IC PANEL RNA Ordering Provi maria: JAYDE MENDOZA (CEPHEID [PRESENCE] Report Rele ased Date/Time: Jun 24, 2022 06:55 PM ) IN Reporting Lab: [facility] RESPIRATOR [address] [facility] [address] Y SPECIMEN Performing L ab: [facility] BY [place] [address] WITH PROBE DETECTION CBC & LEUKOCYTES 9.67 4.0 - 11.0 06/24 Specimen T ype: BLOOD [place] DIFF [#/VOLUME] /2021 Comment: Clu mped Platelets. Invitro artefact. No clinical significance. Platelet count may be higher than stated value. Plt count = 214 K-cmm Manual Differential Performed IS [facility] IN BLOOD Ordering Provi maria: JAYDE MENDOZA BY Report Released Date/Time: Jun 24, 2022 06:55 PM AUTOMATED Reporting Lab : [facility] COUNT [place] [address] Performing Lab: [facility] [place] [address] CBC & ERYTHROCYT 3.36 4.6 - 6.2 06/24 L Specimen Ty pe: BLOOD [place] DIFF ES /2021 Comment: Clumpe d Platelets. Invitro artefact. No clinical significance. Platelet count may be higher than stated value. Plt count = 214 K- cmm Manual Differential Performed IS [facility] [#/VOLUME] Ordering Pro vider: JAYDE MENDOZA IN BLOOD Report Release d Date/Time: Jun 24, 2022 06:55 PM BY Reporting Lab: [facility] AUTOMATED [address] [facility] [address] COUNT Performing Lab: [facility] [place] [address] CBC & HEMOGLOBIN 12.0 13.5 - 06/24 L Specimen Type : BLOOD [place] DIFF [MASS/VOLU 17.9 /2021 Comment: Clu mped Platelets. Invitro artefact. No clinical significance. Platelet count may be higher than stated value. Plt count = 214 K-cmm Manual Differential Performed IS [facility] ME] IN Ordering Provid er: JAYDE MENDOZA BLOOD Report Released Date/Time: Jun 24, 2022 06:55 PM Reporting Lab: [facility] [place] [address] Performing Lab: [facility] [address] [place] [address] CBC & HEMATOCRIT 35.9 41 - 54 06/24 L Specimen Type : BLOOD [place] DIFF [VOLUME /2021 Comment: Clumpe d Platelets. Invitro artefact. No clinical significance. Platelet count may be higher than stated value. Plt count = 214 K-cmm Manual Differential Performed IS [facility] FRACTION] Ordering Prov ider: JAYDE MENDOZA OF BLOOD Report Release d Date/Time: Jun 24, 2022 06:55 PM BY Reporting Lab: [facility] AUTOMATED [place] [address] COUNT Performing Lab: [facility] [address] [place] [address] CBC & MCV 106.8 80 - 100 08/08 H Specimen Type: BLOOD [place] DIFF [ENTITIC /2021 Comment: Clump ed Platelets. Invitro artefact. No clinical significance. Platelet count may be higher than stated value. Plt count = 214 K-cmm Manual Differential Performed IS [facility] VOLUME] BY Ordering Pro vider: JAYDE MENDOZA AUTOMATED Report Releas ed Date/Time: Jun 24, 2022 06:55 PM COUNT Reporting Lab: [facility] [address] [place] [address] Performing Lab: [facility] [address] [place] [address] CBC & MCH 35.7 27 - 33 06/24 H Specimen Type: B LOOD [place] DIFF [ENTITIC /2021 Comment: Clump ed Platelets. Invitro artefact. No clinical significance. Platelet count may be higher than stated value. Plt count = 214 K-cmm Manual Differential Performed IS [facility] MASS] BY Ordering Provi maria: JAYDE MENDOZA AUTOMATED Report Releas ed Date/Time: Jun 24, 2022 06:55 PM COUNT Reporting Lab: [facility] [address] [place] [address] Performing Lab: [facility] [address] [place] [address] CBC & MCHC 33.4 32.0 - 06/24 Specimen Type: B LOOD [place] DIFF [MASS/VOLU 37.5 /2021 Comment: Clu mped Platelets. Invitro artefact. No clinical significance. Platelet count may be higher than stated value. Plt count = 214 K-cmm Manual Differential Performed IS [facility] ME] BY Ordering Provid er: JAYDE MENDOZA AUTOMATED Report Releas ed Date/Time: Jun 24, 2022 06:55 PM COUNT Reporting Lab: [facility] [address] [place] [address] Performing Lab: [facility] [address] [place] [address] CBC & PLATELETS comment 06/24 Specimen Type: BLOOD [place] DIFF [#/VOLUME] /2021 Comment: Clu mped Platelets. Invitro artefact. No clinical significance. Platelet count may be higher than stated value. Plt count = 214 K-cmm Manual Differential Performed IS [facility] IN BLOOD Ordering Provi maria: JAYDE MENDOZA BY Report Released Date/Time: Jun 24, 2022 06:55 PM AUTOMATED Reporting Lab : [facility] COUNT [place] [address] Performing Lab: [facility] [address] [place] [address] CBC & PLATELET canc 06/24 Specimen Type: BLOOD [place] DIFF MEAN /2021 Comment: Clumpe d Platelets. Invitro artefact. No clinical significance. Platelet count may be higher than stated value. Plt count = 214 K- cmm Manual Differential Performed IS [facility] VOLUME Ordering Provid er: JAYDE MENDOZA [ENTITIC Report Release d Date/Time: Jun 24, 2022 06:55 PM VOLUME] IN Reporting La b: [facility] [place] [address] AUTOMATED Performing [place] b: [facility] [place] [address] CBC & NEUTROPHIL 70.7 06/24 Specimen Type : BLOOD [place] DIFF S/100 /2021 Comment: [place] Platelets. Invitro artefact. No clinical significance. Platelet count may be higher than stated value. Plt count = 214 K- cmm Manual Differential Performed IS [facility] LEUKOCYTES Ordering Pro vider: JAYDE MENDOZA IN BLOOD Report Release d Date/Time: Jun 24, 2022 06:55 PM BY MANUAL Reporting Lab : [facility] [address] [place] [address] Performing Lab: [facility] [place] [address] CBC & LYMPHOCYTE 16.7 06/24 Specimen Type : BLOOD [place] DIFF S/100 /2021 Comment: [place] Platelets. Invitro artefact. No clinical significance. Platelet count may be higher than stated value. Plt count = 214 K- cmm Manual Differential Performed IS [facility] LEUKOCYTES Ordering Pro vider: JAYDE MENDOZA IN BLOOD Report Release d Date/Time: Jun 24, 2022 06:55 PM BY MANUAL Reporting Lab : [facility] [address] [place] [address] Performing Lab: [facility] [place] [address] CBC & ERYTHROCYT 14.0 11.5 - 06/24 Specimen Type : BLOOD [place] DIFF E 14. Comment: [place] Platelets. Invitro artefact. No clinical significance. Platelet count may be higher than stated value. Plt count = 214 K- cmm Manual Differential Performed IS [facility] DISTRIBUTI Ordering Pro vider: JAYDE MENDOZA W ON WIDTH Report Release d Date/Time: Jun 24, 2022 06:55 PM [RATIO] BY Reporting La b: [facility] AUTOMATED [facility] [address] COUNT Performing Lab: [facility] [address] [place] [address] CBC & MONOCYTES/ 9.6 06/24 Specimen Type : BLOOD [place] DIFF Comment: Clum[place] d Platelets. Invitro artefact. No clinical significance. Platelet count may be higher than stated value. Plt count = 214 K- cmm Manual Differential Performed IS [facility] LEUKOCYTES Ordering Pro vider: JAYDE MENDOZA W IN BLOOD Report Release d Date/Time: Jun 24, 2022 06:55 PM BY Reporting Lab: [facility] AUTOMATED [facility] [address] COUNT Performing Lab: [facility] [address] [place] [address] CBC & EOSINOPHIL 1.5 06/24 Specimen Type : BLOOD [place] DIFF S/ Comment: Clum[place] Platelets. Invitro artefact. No clinical significance. Platelet count may be higher than stated value. Plt count = 214 K- cmm Manual Differential Performed IS [facility] LEUKOCYTES Ordering Pro vider: JAYDE MENDOZA W IN BLOOD Report Release d Date/Time: Jun 24, 2022 06:55 PM BY Reporting Lab: [facility] AUTOMATED [facility] [address] COUNT Performing Lab: [facility] [address] [facility] [address] CBC & METAMYELOC 1.0 06/24 Specimen Type : BLOOD [place] DIFF YTES/ Comment: Clump ed Platelets. Invitro artefact. No clinical significance. Platelet count may be higher than stated value. Plt count = 214 K-cmm Manual Differential Performed IS [facility] LEUKOCYTES Ordering Pro vider: JAYDE MENDOZA W IN BLOOD Report Release d Date/Time: Jun 24, 2022 06:55 PM BY MANUAL Reporting Lab : [facility] COUNT [place] [address] Performing Lab: [facility] [place] [address] CBC & MYELOCYTES 0.5 06/24 Specimen Type : BLOOD [place] DIFF /100 /2021 Comment: [place] Platelets. Invitro artefact. No clinical significance. Platelet count may be higher than stated value. Plt count = 214 K- cmm Manual Differential Performed IS [facility] LEUKOCYTES Ordering Pro vider: JAYDE MENDOZA W IN BLOOD Report Release d Date/Time: Jun 24, 2022 06:55 PM BY MANUAL Reporting Lab : [facility] COUNT [place] [address] Performing Lab: [facility] [address] [place] [address] CBC & NORMOCHROM YES 06/24 Specimen Type : BLOOD [place] DIFF IC /2021 Comment: [place] Platelets. Invitro artefact. No clinical significance. Platelet count may be higher than stated value. Plt count = 214 K- cmm Manual Differential Performed IS [facility] [[place]] Ordering Pro vider: JAYDE MENDOZA IN BLOOD Report Release d Date/Time: Jun 24, 2022 06:55 PM BY LIGHT Reporting Lab: [facility] MICROSCOPY [facility] [address] Performing Lab: [facility] [address] [place] [facility] [address] CBC & MACROCYTES SLIGHT 06/24 Specimen Type : BLOOD [place] DIFF [[place]] /2021 Comment: Clu mped Platelets. Invitro artefact. No clinical significance. Platelet count may be higher than stated value. Plt count = 214 K-cmm Manual Differential Performed IS [facility] IN BLOOD Ordering Provi maria: JAYDE MENDOZA BY LIGHT Report Release d Date/Time: Jun 24, 2022 06:55 PM MICROSCOPY Reporting La b: [facility] [place] [address] Performing Lab: [facility] [place] [address] CBC & LYMPHOCYTE 1.61 1.0 - 4.0 06/24 Specimen Ty pe: BLOOD [place] DIFF S /2021 Comment: [place] Platelets. Invitro artefact. No clinical significance. Platelet count may be higher than stated value. Plt count = 214 K- cmm Manual Differential Performed IS [facility] [#/VOLUME] Ordering Pro vider: JAYDE MENDOZA IN BLOOD Report Release d Date/Time: Jun 24, 2022 06:55 PM BY Reporting Lab: [facility] AUTOMATED [facility] [address] COUNT Performing Lab: [facility] [address] [place] [address] CBC & MONOCYTES 0.93 0.1 - 1.0 06/24 Specimen Typ e: BLOOD [place] DIFF [#/VOLUME] /2021 Comment: Clu mped Platelets. Invitro artefact. No clinical significance. Platelet count may be higher than stated value. Plt count = 214 K-cmm Manual Differential Performed IS [facility] IN BLOOD Ordering Provi maria: JAYDE MENDOZA BY Report Released Date/Time: Jun 24, 2022 06:55 PM AUTOMATED Reporting Lab : [facility] COUNT [address] [facility] [address] Performing Lab: [facility] [address] [place] [address] CBC & NEUTROPHIL 6.84 2.0 - 7.7 06/24 Specimen Ty pe: BLOOD [place] DIFF S /2021 Comment: [place] Platelets. Invitro artefact. No clinical significance. Platelet count may be higher than stated value. Plt count = 214 K- cmm Manual Differential Performed IS [facility] [#/VOLUME] Ordering Pro vider: JAYDE MENDOZA IN BLOOD Report Release d Date/Time: Jun 24, 2022 06:55 PM BY Reporting Lab: [facility] AUTOMATED [facility] [address] COUNT Performing Lab: [facility] [address] [place] [facility] [address] CBC & EOSINOPHIL 0.15 0 - 0.5 06/24 Specimen Type : BLOOD [place] DIFF S /2021 Comment: [place] Platelets. Invitro artefact. No clinical significance. Platelet count may be higher than stated value. Plt count = 214 K- cmm Manual Differential Performed IS [facility] [#/VOLUME] Ordering Pro vider: JAYDE MENDOZA IN BLOOD Report Release d Date/Time: Jun 24, 2022 06:55 PM BY Reporting Lab: [facility] AUTOMATED [address] [facility] [address] COUNT Performing Lab: [facility] [address] [place] [address] CBC & METAMYELOC 0.10 06/24 Specimen Type : BLOOD [place] DIFF YTES /2021 Comment: [place] Platelets. Invitro artefact. No clinical significance. Platelet count may be higher than stated value. Plt count = 214 K- cmm Manual Differential Performed IS [facility] [#/VOLUME] Ordering Pro vider: JAYDE MENDOZA IN BLOOD Report Release d Date/Time: Jun 24, 2022 06:55 PM BY MANUAL Reporting Lab : [facility] COUNT [address] [place] [address] Performing Lab: [facility] [address] [place] [address] CBC & MYELOCYTES 0.05 06/24 Specimen Type : BLOOD [place] DIFF [#/VOLUME] /2021 Comment: Clu mped Platelets. Invitro artefact. No clinical significance. Platelet count may be higher than stated value. Plt count = 214 K-cmm Manual Differential Performed IS [facility] IN BLOOD Ordering Provi maria: JAYDE MENDOZA BY MANUAL Report Releas ed Date/Time: Jun 24, 2022 06:55 PM COUNT Reporting Lab: [facility] [address] [place] [address] Performing Lab: [facility] [address] [place] [address] CBC & PLATELETS canc 06/24 Specimen Type: BLOOD [place] DIFF RETICULATE /2021 Comment: Clu mped Platelets. Invitro artefact. No clinical significance. Platelet count may be higher than stated value. Plt count = 214 K-cmm Manual Differential Performed IS [facility] D/100 Ordering Provid er: JAYDE MENDOZA PLATELETS Report Releas ed Date/Time: Jun 24, 2022 06:55 PM IN BLOOD Reporting Lab: [facility] BY [address] [place] [address] AUTOMATED Performing La b: [facility] COUNT [address] [place] [address] CBC & ERYTHROCYT PRESENT 06/24 Specimen Type : BLOOD [place] DIFF E /2021 Comment: [place] Platelets. Invitro artefact. No clinical significance. Platelet count may be higher than stated value. Plt count = 214 K- cmm Manual Differential Performed IS [facility] MORPHOLOGY Ordering Pro vider: JAYDE MENDOZA FINDING Report Released Date/Time: Jun 24, 2022 06:55 PM [IDENTIFIE Reporting La b: [facility] R] IN [address] [place] [address] BLOOD Performing Lab: [facility] [place] [address] COMPREHE CREATININE 1.3 0.7 - 1.2 08/08 H Specimen T ype: PLASMA [place] NSIVE [MASS/VOLU /2021 Comment: Can cellation reported to: Rajni Giraldo RN on 06/24/22@2003 by el. Test result cancelled due to hemolysis interference in sample. IS [facility] METABOLI ME] IN Ordering Provi maria: JAYDE MENDOZA C SERUM OR Report Release d Date/Time: Jun 24, 2022 06:55 PM PANEL+MG PLASMA Reporting Lab: [facility] [place] [address] Performing Lab: [facility] [place] [address] COMPREHE UREA 19 8 - 26 06/24 Specimen Type: PLASMA [place] NSIVE /2021 Comment: Cance llation reported to: Rajni Giraldo RN on 06/24/22@2003 by el. Test result cancelled due to hemolysis interference in sample. IS [facility] METABOLI [MASS/VOLU Ordering Pr ovider: JAYDE MENDOZA ME] IN Report Released Date/Time: Jun 24, 2022 06:55 PM PANEL+MG SERUM OR Reporting Lab : [facility] PLASMA [place] [address] Performing Lab: [facility] [address] [place] [facility] [address] COMPREHE GLUCOSE 111 74 - 100 08/08 H Specimen Type: PLASMA [place] NSIVE [MASS/VOLU /2021 Comment: Can cellation reported to: Rajni Giraldo RN on 06/24/22@2003 by el. Test result cancelled due to hemolysis interference in sample. IS [facility] METABOLI ME] IN Ordering Provi maria: JAYDE MENDOZA C SERUM OR Report Release d Date/Time: Jun 24, 2022 06:55 PM PANEL+MG PLASMA Reporting Lab: [facility] [place] [address] Performing Lab: [facility] [place] [address] COMPREHE SODIUM 133 136 - 145 06/24 L Specimen Type : PLASMA [place] NSIVE [MOLE/VOL Comment: Can cellation reported to: Rajni Giraldo RN on 06/24/22@2003 by el. Test result cancelled due to hemolysis interference in sample. IS [facility] METABOLI UME] IN Ordering Provi maria: KELLY,JAYDE W C SERUM OR Report Release d Date/Time: Jun 24, 2022 06:55 PM PANEL+MG PLASMA Reporting Lab: [facility] [address] [place] [facility] [address] Performing Lab: [facility] [address] [facility] [address] COMPREHE POTASSIUM canc 3.5 - 5.1 06/24 Specimen Ty pe: PLASMA [place] NSIVE [MOLE/VOL Comment: Can cellation reported to: Rajni Giraldo RN on 06/24/22@2003 by el. Test result cancelled due to hemolysis interference in sample. IS [facility] METABOLI UME] IN Ordering Provi maria: KELLY,JAYDE W C SERUM OR Report Release d Date/Time: Jun 24, 2022 06:55 PM PANEL+MG PLASMA Reporting Lab: [facility] [address] [place] [facility] [address] Performing Lab: [facility] [address] [place] [facility] [address] COMPREHE CHLORIDE 103 98 - 107 06/24 Specimen Type : PLASMA [place] NSIVE [MOLE/ Comment: Can cellation reported to: Rajni Giraldo RN on 06/24/22 by el. Test result cancelled due to hemolysis interference in sample. IS [facility] METABOLI UME] IN Ordering Provi maria: KELLY,JAYDE W C SERUM OR Report Release d Date/Time: Jun 24, 2022 06:55 PM PANEL+MG PLASMA Reporting Lab: [facility] [address] [place] [facility] [address] Performing Lab: [facility] [address] [facility] [address] COMPREHE CARBON 22 - 06/24 Specimen Type: PLASMA [place] NSIVE Comment: Cance llation reported to: Rajni Giraldo RN on 06/24/22 by el. Test result cancelled due to hemolysis interference in sample. IS [facility] METABOLI TOTAL Ordering Provi maria: JYADE MENDOZA C [MOLES/VOL Report Relea sed Date/Time: Jun 24, 2022 06:55 PM PANEL+MG UME] IN Reporting Lab: [facility] SERUM OR [address] Kathya JONES [facility] [address] PLASMA Performing Lab: [facility] [address] [place] [facility] [address] COMPREHE CALCIUM 9.4 8.4 - 10.2 06/24 Specimen Typ e: PLASMA [place] NSIVE [MASS/VOLU /2021 Comment: Can cellation reported to: Rajni Giraldo RN on 06/24/22@2003 by el. Test result cancelled due to hemolysis interference in sample. IS [facility] METABOLI ME] IN Ordering Provi maria: JAYDE MENDOZA SERUM OR Report Release d Date/Time: Jun 24, 2022 06:55 PM PANEL+MG PLASMA Reporting Lab: [facility] [address] [place] [facility] [address] Performing Lab: [facility] [address] [place] [facility] [address] COMPREHE PROTEIN canc 6.0 - 8.3 06/24 Specimen Type : PLASMA [place] NSIVE [MASS/VOLU /2021 Comment: Can cellation reported to: Rajni Giraldo RN on 06/24/22@2003 by el. Test result cancelled due to hemolysis interference in sample. IS [facility] METABOLI ME] IN Ordering Provi maria: JAYDE MENDOZA SERUM OR Report Release d Date/Time: Jun 24, 2022 06:55 PM PANEL+MG PLASMA Reporting Lab: [facility] [address] [place] [facility] [address] Performing Lab: [facility] [address] [place] [facility] [address] COMPREHE ALBUMIN 3.9 3.5 - 5.2 06/24 Specimen Type : PLASMA [place] NSIVE [MASS/VOLU /2021 Comment: Can cellation reported to: Rajni Giraldo RN on 06/24/22@2003 by el. Test result cancelled due to hemolysis interference in sample. IS [facility] METABOLI ME] IN Ordering Provi maria: JAYDE MENDOZA W C SERUM OR Report Release d Date/Time: Jun 24, 2022 06:55 PM PANEL+MG PLASMA Reporting Lab: [facility] [address] [facility] [address] Performing Lab: [facility] [address] [place] [facility] [address] COMPREHE BILIRUBIN. 0.2 0.2 - 1.2 06/24 Specimen T ype: PLASMA [place] NSIVE TOTAL /2021 Comment: Cancel lation reported to: Rajni Giraldo RN on 06/24/22@2003 by el. Test result cancelled due to hemolysis interference in sample. IS [facility] METABOLI [MASS/VOLU Ordering Pr ovider: JAYDE MENDOZA ME] IN Report Released Date/Time: Jun 24, 2022 06:55 PM PANEL+MG SERUM OR Reporting Lab : [facility] PLASMA [address] [place] [facility] [address] Performing Lab: [facility] [address] [facility] [address] COMPREHE MAGNESIUM 2.3 1.6 - 2.6 06/24 Specimen Ty pe: PLASMA [place] NSIVE [MASS/VOLU /2021 Comment: Can cellation reported to: Rajni Giraldo RN on 06/24/22@2003 by el. Test result cancelled due to hemolysis interference in sample. IS [facility] METABOLI ME] IN Ordering Provi maria: JAYDE MENDOZA SERUM OR Report Release d Date/Time: Jun 24, 2022 06:55 PM PANEL+MG PLASMA Reporting Lab: [facility] [address] [place] [facility] [address] Performing Lab: [facility] [address] [facility] [address] COMPREHE ANION GAP 8 5 - 15 06/24 Specimen Type : PLASMA [place] NSIVE IN SERUM /2021 Comment: Cance llation reported to: Rajni Giraldo RN on 06/24/22@2003 by el. Test result cancelled due to hemolysis interference in sample. IS [facility] METABOLI OR PLASMA Ordering Pro vider: JAYDE MENDOZA Report Released Date/Time: Jun 24, 2022 06:55 PM PANEL+MG Reporting Lab: [facility] [address] [place] [facility] [address] Performing Lab: [facility] [address] [facility] [address] COMPREHE ALKALINE 56 40 - 150 06/24 Specimen Type : PLASMA [place] NSIVE PHOSPHATAS /2021 Comment: Can cellation reported to: Rajni Giraldo RN on 06/24/22 by el. Test result cancelled due to hemolysis interference in sample. IS ID HCS METABOLI E Ordering Provi maria: JAYDE MENDOZA [ENZYMATIC Report Relea sed Date/Time: Jun 24, 2022 06:55 PM PANEL+MG ACTIVITY/V Reporting L ab: [facility] OLUME] IN [facility] [address] SERUM OR Performing Lab : [facility] PLASMA [address] [place] [facility] [address] COMPREHE ALANINE 20 <55 - 55 06/24 Specimen Type: PLASMA [place] NSIVE AMINOTRANS /2021 Comment: Can cellation reported to: Rajni Giraldo RN on 06/24/22 by el. Test result cancelled due to hemolysis interference in sample. IS ID Echodio METABOLI FERASE Ordering Provi maria: JAYDE MENDOZA [ENZYMATIC Report Relea sed Date/Time: Jun 24, 2022 06:55 PM PANEL+MG ACTIVITY/V Reporting L ab: [facility] OLUME] IN [facility] [address] SERUM OR Performing Lab : [facility] PLASMA [address] [place] [facility] [address] COMPREHE ASPARTATE canc <34 - 34 06/24 Specimen Typ e: PLASMA [place] NSIVE AMINOTRANS Comment: Can cellation reported to: Rajni Giraldo RN on 06/24/22 by el. Test result cancelled due to hemolysis interference in sample. IS ID HCS METABOLI FERASE Ordering Provi maria: JAYDE MENDOZA [ENZYMATIC Report Relea sed Date/Time: Jun 24, 2022 06:55 PM PANEL+MG ACTIVITY/V Reporting L ab: [facility] HCS OLUME] IN [facility] [address] SERUM OR Performing Lab : [facility] PLASMA [address] [place] [facility] [address] COMPREHE GLOMERULAR 58 60 06/24 L Specimen Typ e: PLASMA [place] NSIVE FILTRATION Comment: Can cellation reported to: Rajni Giraldo RN on 06/24/22 by el. Test result cancelled due to hemolysis interference in sample. IS ID Echodio METABOLI RATE/1.73 Ordering Pro vider: JAYDE MENDOZA SQ Report Released Date/Time: Jun 24, 2022 06:55 PM PANEL+MG M.DOMINGOE Reporting L ab: [facility] D [VOLUME [address] [facility] [address] RATE/AREA] Performing L ab: [facility] HCS IN SERUM, ONE [employer] [facility] [address] PLASMA OR BLOOD BY CREATININE -BASED FORMULA (CKD-EPI) Vital Signs Combined list of inpatient and outpatient Vital Signs from Department of Defense and Veterans Affairs, ranging from 12 months to all on record, depending upon the facility. Vital Sign Value Date Comments Source SYSTOLIC BLOOD PRESSURE 95 07/24/2022 10:55:08 [facility] DIASTOLIC BLOOD PRESSURE 60 07/24/2022 10:55:08 [facility] PULSE OXIMETRY 93% 07/24/2022 10:55:08 [facility] WEIGHT 123 07/24/2022 10:55:08 [place] BMI 23kg/m2 07/24/2022 10:55:08 [place] PAIN 4 07/24/2022 10:55:08 [place] [facility] TEMPERATURE 96.8 07/24/2022 10:55:08 [place] [facility] PULSE 52 07/24/2022 10:55:08 [place] [facility] RESPIRATION 16 07/24/2022 10:55:08 [place] [facility] SYSTOLIC BLOOD PRESSURE 108 07/19/2022 08:33:25 [place] DIASTOLIC BLOOD PRESSURE 64 07/19/2022 08:33:25 [facility] PULSE OXIMETRY 94% 07/19/2022 08:33:25 [facility] WEIGHT 121 07/19/2022 08:33:25 [place] [facility] BMI 22kg/m2 07/19/2022 08:33:25 [facility] [facility] PAIN 6 07/19/2022 08:33:25 [facility] TEMPERATURE 97 07/19/2022 08:33:25 [facility] PULSE 55 07/19/2022 08:33:25 [facility] [facility] RESPIRATION 20 07/19/2022 08:33:25 [facility] PAIN 6 06/26/2022 03:48:19 [place] [facility] SYSTOLIC BLOOD PRESSURE 132 06/25/2022 01:05:00 [facility] DIASTOLIC BLOOD PRESSURE 85 06/25/2022 01:05:00 [facility] PULSE OXIMETRY 94% 06/25/2022 01:05:00 [place] [facility] TEMPERATURE 98.2 06/25/2022 01:05:00 [place] [facility] PULSE 59 06/25/2022 01:05:00 [place] [facility] SYSTOLIC BLOOD PRESSURE 99 06/24/2022 18:00:00 [facility] DIASTOLIC BLOOD PRESSURE 64 06/24/2022 18:00:00 [facility] PAIN 8 06/24/2022 18:00:00 [place] [facility] TEMPERATURE 97.5 06/24/2022 18:00:00 [place] [facility] PULSE 69 06/24/2022 18:00:00 [place] [facility] RESPIRATION 15 06/24/2022 18:00:00 [place] [facility] Encounters Combined list of: 1) Encounters from Department of Veterans Affairs facilities going back up to the last 18 months. 2) Encounters from the Department of Defense facilities going back up to 280 months. Location Location Encounter Encounter Reason Attending ADM DC Stat us Disposition Source Details Type Number For Provider Date Date Visit OFFICE O/P 94924-5 Diagnos NANCY PERRY 06/01 [place] MOD [id number] is: RRY A [facility] 30-39 MIN ICD-10- [facility] CM M06.9 Rheumat oid arthrit is, unspeci fied
with Provide r Comment s: Seropos itive rheumat oid arthrit is ([facility] [id number]) Outpatient [id number]/01 [place] Encounter [id number] /2020 [facility] OFFICE O/P 24789-9. Diagnos MARYELLEN LEON 06/01 [place] EST LOW [id number] is: H /2020 [facility] 20-29 MIN ICD-10- HCS CM I25.10 [facility] coronar y artery w/o ang pctrs<b r/>with Provide r Comment s: CAD - Coronar y artery disease (SCT [id number]) Outpatient [id number]. Yasmeen CHASE 06/13 [place] Encounter [id number] ERR [facility] OFFICE O/P 00455-861 Diagnos OR[place]O,JE 06/19 [place] EST MOD [id number] is: RRY [place] [facility] 30-39 MIN ICD-10- HCS CM M06.9 Rheumat oid arthrit is, unspeci fied
with Provide r Comment s: Seropos itive rheumat oid arthrit is ([facility] [id number] 05) Outpatient [id number] 06/19 [place] Encounter [id number] /2021 [facility] OFFICE O/P 68175-061 Diagnos SCHEURER,R 07/11 [place] EST MOD [id number] is: HAVEN A [facility] 30-39 MIN ICD-10- HCS CM H25.13 Age-rel ated nuclear catarac t, bilater al
with Provide r Comment s: Age-rel ated nuclear catarac t, bilater al Outpatient [id number] 07/31 [place] Encounter [id number] [facility] OFFICE O/P 45965-2 Diagnos [facility], 09/28 [place] EST MOD [id number] is: RRY [place] 30-39 MIN ICD-10- HCS CM M06.9 Rheumat oid arthrit is, unspeci fied
with Provide r Comment s: Seropos itive rheumat oid arthrit is ([facility] [id number] 05) ADM [id number] Diagnos HUDLOW,TRISTON 09/28 [place] SARSCOV2 [id number] is: ECCA [facility] [facility] 30MCG/0.3M ICD-10- HCS L BST CM Z23 Encount er for immuniz ation<b r/>with Provide r Comment s: Encount er for Immuniz ation Outpatient [id number] 11/17 [place] Encounter [id number] /2022 [facility] Outpatient 32544-561 11/20 [place] Encounter [id number] [facility] Outpatient 56262-211/20 [place] Encounter [id number] [facility] Outpatient 48103-6.61 CHRISTLE,T 11/20 [place] Encounter [id number] ERRY [facility] Outpatient 09218-3.61 12/06 [place] Encounter [id number] /2021 [facility] EMERGENCY 22869-8.61 Diagnos GERALDO MARK 01/07 [place] DEPT VISIT [id number] is: /2021 [facility] ICD-10- [facility] CM K02.9 Dental caries, unspeci fied
with Provide r Comment s: Dental Caries, unspeci fied OFFICE O/P 89378-7.61 Diagnos ORLANDOJE 01/11 [place] EST MOD [id number] is: RRY A [facility] 30-39 MIN ICD-10- [facility] CM M06.9 Rheumat oid arthrit is, unspeci fied
with Provide r Comment s: Seropos itive rheumat oid arthrit is ([facility] [id number] 05) Outpatient 20408-2.61 02/17 [place] Encounter [id number] /2021 [facility] Outpatient 28456-6.61 CHRISTLE,T 02/17 [place] En[place] [id number] ERRY [facility] Outpatient 02296-2.61 [place]RI[place]LE,T 02/18 [place] Encounter [id number] ERR [facility] Outpatient 97444-8.61 02/21 [place] Encounter [id number] /2021 [facility] Outpatient 40903-7.61 02/26 [place] Encounter [id number] /2021 [facility] OFFICE O/P 38135-9.61 Diagnos LEON,03/05 [place] EST LOW [id number] is: [facility] 20-29 MIN ICD-10- HCS CM I47.1 Suprave ntricul ar tachyca rdia
with Provide r Comment s: Multifo sergio atrial tachyca rdia (SNOMED CT [id number] 0) ECG 07215-7.61 Diagnos LEON,MARYELLEN 03/12 [place] MONIT/REPR [id number] is: H [facility] T UP TO 48 ICD-10- HCS HRS CM Z13.6 Encount er for screeni ng for cardiov ascular disorde rs
with Provide r Comment s: Encount er for Screeni ng for Cardiov ascular Disorde rs Outpatient 53661-7.61 05/ [place] Encounter [id number] /2021 [facility] Out[facility] 58489-3.61 / [place] En[place] [id number] /2021 [facility] Outpatient 13373-9.61 CHRISTLE,T 03/19 [place] Encounter [id number] ERRY /2021 [facility] Outpatient 04080-5.61 05/ [place] Encounter [id number] /2021 [facility] Outpatient 85710-4.61 05/ [place] Encounter [id number] /2021 [facility] Outpatient 52802-1.61 05/ [place] En[place] [id number] /2021 [facility] H[facility] EXT 23021-9.61 Diagnos JORDY SWANSONL 04/04 [place] ECG>7D<15D [id number] is: EY A [facility] RECORDING ICD-10- HCS CM I48.92 Unspeci fied atrial flutter
Provide r Comment s: Unspeci fied Atrial Flutter Outpatient 38719-7.61 04/04 [place] Encounter [id number] /2021 [facility] HCS ELECTROCAR 40374-3.61 Diagnos LAUREN,SE 04/10 [place] DIOGRAM [id number] is: LMA D [facility] COMPLETE ICD-10- HCS CM Z13.6 Encount er for screeni ng for cardiov ascular disorde rs
with Provide r Comment s: Encount er for Screeni ng for Cardiov ascular Disorde rs OFFICE 47925-3.61 Diagnos AB MARCELL 04/10 [place] CONSULTATI [id number] is: BIE L [facility] [place] ICD-10- HCS CM I47.1 Suprave ntricul ar tachyca rdia
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
wi th Provide r Comment s: 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 (curren t) [place] [address]-9 Diagnos ANKIT,KR 04/24 [place] DIG [id number] is: ISTIN Y /2021 [facility] ASSMT&MGMT ICD-10- HCS 11-20 CM Z79.01 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 (curren t) use of anticoa gulants
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 Diagnos SANTO THAO 05/07 [place] Y AND [id number] is: VINCE R /2021 [facility] BIOPSY ICD-10- HCS CM K64.8 Other hemorrh oids
with Provide r Comment s: Other Hemorrh oids Outpatient 96321-3.61 05/07 [place] Encounter [id number] [facility] Outpatient 83562-7.61 MAYELA MEDEL 05/08 [place] Encounter [id number] Z [facility] Outpatient 14316-9.61 05/09 [place] Encounter [id number] [facility] Outpatient 91521-5.61 05/15 [place] Encounter [id number] [facility] Outpatient 20956-9.61 05/15 [place] Encounter [id number] [facility] ELECTROCAR 44378-861 Diagnos FLORTOM,CELESTE 05/15 [place] DIOGRAM [id number] is: REL [facility] COMPLETE ICD-10- HCS CM Z13.6 Encount er for screeni ng for cardiov ascular disorde rs
with Provide r Comment s: Encount er for Screeni ng for Cardiov ascular Disorde rs HEMOGLOBIN 42264-0.61 Diagnos ILIANA, 05/15 [place] [id number] is: OBI K [facility] ICD-10- HCS CM I48.0 Paroxys mal atrial fibrill ation<b r/>with Provide r Comment s: Paroxys mal atrial fibrill ation (SCT [id number] 02) OFFICE O/P 12453-8 Diagnos MARCELL,AB 05/15 [place] EST MOD [id number] is: BIE L [facility] 30-39 MIN ICD-10- HCS CM I47.1 Suprave ntricul ar tachyca rdia
with Provide r Comment s: Multifo sergio atrial tachyca rdia (SCT [id number] 0) Outpatient 42224-4.61 ZLATKOVIC 06/01 [place] Encounter [id number] ERICKSON RODRIGUEZ [facility] Outpatient 40537-8.61 06/18 [place] Encounter [id number] [facility] Outpatient 99105-5.61 SA VU 06/19 [place] Encounter [id number] RA R /2021 [facility] Outpatient 16837-8.61 06/21 [place] Encounter [id number] [facility] Outpatient 10972-6.61 SYSTEM,CIS 06/24 [place] Encounter [id number] -AR [facility] Outpatient 44592-0.61 SYSTEM,CIS 06/24 [place] Encounter [id number] -AR [facility] EMERGENCY 69694-7.61 Diagnos STANISLAW MENDOZA 06/24 [place] DEPT VISIT [id number] is: D W [facility] ICD-10- [facility] CM R62.7 Adult failure to thrive< br/>wit h Provide r Comment s: Adult Failure to Thrive Outpatient 79136-9.61 06/24 [place] Encounter [id number] [facility] Inpatient 48649-5.61 Admit LISA HILLS 06/24 06/26 [place] Encounter [id number] Reason: SEIN ISSAK /2021 [facility] FALL HCS REC DC O[facility]ACE<b r/> Inpatient 95915-3.61 SYSTEM,CIS 06/24 06/24 [place] Encounter [id number] -ARK /2021 [facility] Inpatient 63863-9.61 SYSTEM,CIS 06/25 06/25 [place] Encounter [id number] -ARK /2021 [facility] Inpatient 26988-6.61 06/25 06/25 [place] Encounter [id number] /2021 [facility] Inpatient 85545-2.61 06/25 06/25 [place] Encounter [id number] /2021 [facility] Inpatient 15408-8.61 SYSTEM,CIS 06/25 06/25 [place] Encounter [id number] -ARK /2021 [facility] Inpatient 56695-3.61 06/25 06/25 [place] Encounter [id number] /2021 [facility] [place] [place] [address]-1.61 Diagnos ALFREDO MCDANIEL 06/25 06/25 [place] 30 MINUTES [id number] is: VIA G /2021 [facility] ICD-10- HCS CM F10.20 Alcohol depende nce, uncompl icated< br/>wit h Provide r Comment s: Alcohol depende nce, uncompl icated PT EVAL 24611-5.61 Diagnos WHITLEYGENTRY 06/25 06/25 [place] MOD [id number] is: TIN W /2021 [facility] COMPLEX 30 ICD-10- HCS MIN CM Z74.09 Other reduced mobilit y
w ith Provide r Comment s: Reduced Mobilit y Inpatient 24243-6.61 06/25 [place] Encounter [id number] /2021 [facility] Inpatient 67659-0.61 06/25 06/25 [place] Encounter [id number] /2021 [facility] Inpatient 72138-5.61 06/25 06/25 [place] Encounter [id number] /2021 [facility] OT EVAL 44214-7.61 Diagnos RICARDO TONG 06/25 06/25 [place] LOW [id number] is: TTHEW /2021 [facility] COMPLEX 30 ICD-10- MALINI HCS MIN CM Z73.6 Limitat ion of activit ies due to disabil ity<br/ >with Provide r Comment s: Limitat ion of activit ies due to disabil ity Inpatient 00146-7.61 06/25 06/25 [place] Encounter [id number] /2021 [facility] Inpatient 62095-4.61 06/26 06/26 [place] Encounter [id number] /2021 [facility] Inpatient 99125-0.61 SYSTEM,CIS 06/26 06/26 [place] Encounter [id number] -ARK /2021 [facility] Inpatient 84427-5.61 06/26 06/26 [place] Encounter [id number] /2021 [facility] CASE 58462-6.61 Diagnos FAIRB[place]KS 06/26 06/26 [place] MANAGEMENT [id number] is: ,EDWARDO L /2021 O [facility] [place] ICD-10- HCS CM Z71.89 Other specifi ed university counselor ing<br/ >with Provide r Comment s: Other specifi ed [employer] Inpatient 32792-8.61 06/26 06/26 [place] Encounter [id number] /2021 [facility] Inpatient 33169-3.61 06/26 [place] Encounter [id number] /2022 [facility] SELF CARE 37642-6.61 Diagnos RICARDO TONG 06/26 06/26 [place] MNGMENT [id number] is: TTHEW /2021 [facility] TRAINING ICD-10- MALINI HCS CM Z73.6 Limitat ion of activit ies due to disabil ity<br/ >with Provide r Comment s: Limitat ion of activit ies due to disabil ity Outpatient 17883-1.61 06/27 [place] Encounter [id number] [facility] Out[facility] 59059-8.61 06/28 [place] Encounter [id number] [facility] HC PRO 14568-3.61 Diagnos RICARDO HOU 06/28 [place] PHONE CALL [id number] is: TTHEW [facility] 11-20 MIN ICD-10- HCS 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
[facility] Provide r Comment s: 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 (curren t) use of anticoa gulants Outpatient 48436-5.61 06/28 [place] Encounter [id number] /2021 [facility] HCS OFFICE O/P 54946-8.61 Diagnos FRED THORNE 06/28 [place] EST [id number] is: E A [facility] MINIMAL ICD-10- HCS PROB CM Z71.89 Other specifi ed university counselor ing<br/ >with Provide r Comment s: Specifi ed university counselor ing, not listed elsewhe re Outpatient 47046-9.61 07/02 [place] Encounter [id number] [facility] Out[facility] 92557-0.61 07/04 [place] Encounter [id number] /2021 [facility] Outpatient 74725-2 VU,SA 07/15 [place] Encounter [id number] RA R /2021 [facility] Outpatient 35787-261 MARCI TAYLOR 07/16 [place] Encounter [id number] ISTINE /2021 [facility] Outpatient 35187-6 VU,SA 07/16 [place] Encounter [id number] RA R /2021 [facility] Outpatient 76902-9.61 07/17 [place] Encounter [id number] /2021 [facility] Outpatient 43640-7.61 VU,SA 07/17 [place] Encounter [id number] RA R /2021 [facility] Outpatient 96623-061 07/19 [place] Encounter [id number] /2021 [facility] OFFICE O/P Diagnos NANCY PERRY 07/19 [place] EST MOD [id number] is: RRY A /2021 [facility] 30-39 MIN ICD-10- HCS CM M06.9 Rheumat oid arthrit is, unspeci fied
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
w ith Provide r Comment s: Alcohol abuse ([facility] [id number] 5) Outpatient 50030-7.61 /08 [place] Encounter [id number] /2021 [facility] OFFICE O/P 16785-361 Diagnos ANDREA ROMAN 07/25 [place] EST MOD [id number] is: IUS /2021 [facility] 30-39 MIN ICD-10- HCS CM M50.021 Cervica l disc disorde r at C4-C5 level with myelopa thy<br/ >with Provide r Comment s: Cervica l disc disorde r at C4-C5 level with myelopa thy Outpatient 71278-5.61 09/08 [place] Encounter [id number] /2021 [facility] Outpatient 38921-9.61 / [place] En[place] [id number] /2021 [facility] Outpatient 66021-1.61 07/26 [place] Encounter [id number] /2021 [facility] Outpatient 07137-0.61 /12 [place] Encounter [id number] /2021 [facility] Outpatient 50641-9.61 /12 [place] Encounter [id number] /2021 [facility] Outpatient 16066-0.61 15 [place] Encounter [id number] /2021 [facility] MEDICAL 56276-3.61 Diagnos CHARAN EDEN 08/05 [place] NUTRITION [id number] is: ANTHA L /2021 [facility] ICD-10- HCS CM Z71.3 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
w ith Provide r Comment s: Feeling of Incompl ete Bladder Emptyin g Outpatient 95822-9.61 09/30 [place] Encounter [id number] /2021 [facility] Outpatient 28785-7.61 BANDAR SAUCEDA 08/23 [place] Encounter [id number] JAZMIN J [facility] Outpatient 97185-9.61 09/18 [place] Encounter [id number] [facility] IMMUNIZATI 68544-1.61 Diagnos OSMEL,TRA 09/18 [place] ADMIN [id number] is: CY L [facility] ICD-10- HCS CM Z23 Encount er for immuniz ation<b r/>with Provide r Comment s: Encount er for Immuniz ation Outpatient 81102-3.61 LEON,MARYELLEN 09/19 [place] Encounter [id number] [facility] Outpatient 58256-8.61 Diagnos LEON,MARYELLEN 09/20 [place] Encounter [id number] is: [facility] ICD-10- HCS CM 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 Social History Type Response Date Comment Source Tobacco smoking ID-TOBACCO FORMER USER 03/05/2022 [place] [facility] status [place]IS History of tobacco VA-TOBACCO QUIT 1 TO < 03/05/2022 [facility] use 5 YRS History of tobacco VA-TOBACCO NEVER USED 06/01/2021 [facility] use History of tobacco ID-TOBACCO QUIT < 1 12/31/2019 [place] [facility] use YEAR History of tobacco VA-TOBACCO FORMER USER 03/23/2019 [facility] use History of tobacco CURRENT TOBACCO USER 06/10/2018 [place] [facility] use History of tobacco INPT TOBACCO COUNSELING 05/10/2018 [facility] use History of tobacco FORMER TOBACCO USE <1Y 08/29/2017 [facility] use History of tobacco INPT TOBACCO COUNSELING 05/26/2017 [facility] use History of tobacco INPT TOBACCO COUNSELING 05/03/2017 [facility] use History of tobacco FORMER TOBACCO USE <1Y 09/18/2016 [facility] use History of tobacco INPT TOBACCO USE - PT 08/10/2016 [facility] use REFUSED History of tobacco INPT TOBACCO COUNSELING 08/01/2016 [facility] use History of tobacco CURRENT TOBACCO USER 02/08/2015 [facility] use History of tobacco CURRENT TOBACCO USER 11/29/2013 [facility] use History of tobacco PATIENT IS TOBACCO USER 11/26/2013 [facility] use History of tobacco CURRENT TOBACCO USER 11/27/2012 [facility] use History of tobacco CURRENT TOBACCO USER 12/27/2011 [facility] use History of tobacco CURRENT TOBACCO USER 01/22/2011 [facility] use History of tobacco CURRENT TOBACCO USER 03/13/2010 [facility] use Plan of Care List of future care activities from [facility] facilities. Additional future care activities may be listed in the Assessment and Plan section. Date/Time Care Activity Care Activity Detail Facility 10/21/2022 AMBULATORY - NONE AMBULATORY - NONE [facility] Advance Directives List of completed, amended, or rescinded Advance Directives on record at [facility] facilities. An actual copy of the Directive is not included. Date Advance Directive Provider Source 02/25/2018 ADVANCE DIRECTIVE AURORA MORALES [facility] 02/24/2018 ADVANCE DIRECTIVE DISCUSSION AURORA MORALES [facility] 05/26/2017 CLINICAL WARNING MAGO CONTRERAS [facility] 05/03/2017 CLINICAL WARNING SARIAH ENGLE [facility] 08/10/2016 CLINICAL WARNING ISABEL BARCENAS [facility] 08/02/2016 CLINICAL WARNING AURORA ALMAZAN [facility]
--- OUTSIDE RECORDS SUMMARY | 2022-10-13 17:22 | XMS_ITS | Encounter Summary ---
:[address] [facility] Address [address] [place] [address] Support Name Relationship Address Phone MADELIN MANTILLA Unavailable [phone] [place] [address] MADELIN MANTILLA Unavailable [phone] [place] [address] DHAVAL MANTILLA Unavailable [address] [place] [address] Insurance Providers: All historical and current Section [...] MEDICARE MEDICARE PART Jul 18, PART B [id number] ANNALEE BUSTILLO (WNR) (M) B 2014A [phone] ,REGI MEDICARE MEDICARE PART Apr 17, PART A [id number] ANNALEE BUSTILLO (WNR) (M) A 2012A [id number] ,REGI Selected Encounter This section includes the information on record at DC for the Encounter. Date/Time Encounter Type Encounter Reason Provider Source Description Nov 20, 2021 06:18 Outpatient ADMIN PAT BAKARI PATTERSON PM Encounter ([facility]) IHE Encounter Template Text not used by DC Plan of Treatment: Future Appointments (+ 6 [...] 20 appointments. The data comes from all [place] treatment facilities. Appointment Date/Time Appointment Type Appointment Facili ty Name Jan 07, 2022 08:46 AM AMBULATORY - MEDICINE [facility] Jan 11, 2022 09:00 AM AMBULATORY - MEDICINE [facility] Jan 11, 2022 10:00 AM AMBULATORY - MEDICINE [facility] Feb 17, 2022 08:09 PM AMBULATORY - NONE [facility] Mar 05, 2022 12:30 PM AMBULATORY - NONE [facility] Mar 05, 2022 01:30 PM AMBULATORY - MEDICINE [facility] Mar 12, 2022 11:00 AM AMBULATORY - MEDICINE [facility] March 19, 2022 06:03 PM AMBULATORY - NONE [facility] April 10, 2022 11:00 AM AMBULATORY - MEDICINE [facility] April 10, 2022 11:30 AM AMBULATORY - MEDICINE [facility] April 12, 2022 08:30 AM AMBULATORY - MEDICINE [facility] May 07, 2022 09:00 AM AMBULATORY - MEDICINE [facility] May 15, 2022 10:30 AM AMBULATORY - MEDICINE [facility] May 15, 2022 10:40 AM AMBULATORY - MEDICINE [facility] May 15, 2022 11:30 AM AMBULATORY - MEDICINE [facility] May 15, 2022 01:00 PM AMBULATORY - MEDICINE [facility] May 15, 2022 01:45 PM AMBULATORY - NONE [facility] Social History: Smoking Status (Most current) and Tobacco Use (All prior to encounter date) This section includes the most current, and the historical, smoking and tobacco-related health factors from the DC facility where the Encounter took place.Current Smoking Status This section includes the most current smoking, or tobacco-related health factor, from the DC facility where the Encounter took place. Date/Time Current Smoking Status Comment Facility Jun 01, 2021 02:00 PM DC-TOBACCO NEVER USED [facility] Tobacco Use History This section includes a history of the smoking, or tobacco- related health factors, that were collected on or before the date of the Encounter. The data comes from the DC facility where the Encounter took place. Date/Time Smoking Status/Tobacco Use Comment Facil ity Dec 31, 2019 10:54 AM VA-TOBACCO FORMER USER MIN [facility] Dec 31, 2019 10:54 AM DC-TOBACCO QUIT < 1 YEAR [facility] March 23, 2019 09:53 AM VA-TOBACCO FORMER USER MIN [facility] March 23, 2019 09:53 AM VA-TOBACCO QUIT < 1 YEAR [place] [facility] Jun 10, 2018 10:00 AM CURRENT TOBACCO USER [facility] May 10, 2018 07:27 PM INPT TOBACCO COUNSELING [place] [facility] May 10, 2018 07:27 PM INPT TOBACCO USER [facility] Aug 29, 2017 09:55 AM FORMER TOBACCO USE <1Y MIN [facility] May 26, 2017 10:51 PM INPT TOBACCO COUNSELING [place] [facility] [facility] May 26, 2017 10:51 PM INPT TOBACCO USER [facility] May 03, 2017 09:34 PM INPT TOBACCO COUNSELING [place] [facility] May 03, 2017 09:34 PM INPT TOBACCO USER [facility] Sep 18, 2016 01:36 PM FORMER TOBACCO USE <1Y MIN [facility] Aug 10, 2016 03:54 PM INPT TOBACCO USE - PT REFUSED [facility] Aug 01, 2016 06:48 PM [facility] Aug 01, 2016 06:48 PM INPT TOBACCO USER [facility] Feb 08, 2015 09:57 AM CURRENT [facility]BACCO [facility] Nov 29, 2013 10:37 AM CURRENT TOBACCO USER [facility] Nov 26, 2013 11:09 AM PATIENT IS TOBACCO USER [place] [facility] Nov 27, 2012 12:12 PM CURRENT TOBACCO USER [facility] Dec 27, 2011 09:44 AM CURRENT TOBACCO USER [facility] Jan 22, 2011 02:38 PM CURRENT TOBACCO USER [facility] Mar 13, 2010 12:48 PM CURRENT [facility]BACCO [facility]ER [facility] Advance Directives: All historical and current Section Date Range: From patient's date of to the date document was created. This section includes ALL of a patient's completed or amended DC Advance and Rescinded Directives. The entries below indicate that a directive exists for the patient, but an actual copy is not included with this document. The data comes from all [place] facilities. Date Advance Directives Provider Source Feb [...] 2021 06:18 PM NONVA NOTE: VAZQUEZ DAVIS [facility] LOCAL TITLE: COMMUNITY CARE-ELZBIETA SELF PRESENTIN G CARE COORD PLAN N STANDARD TITLE: NONVA NOTE DATE OF NOTE: NOV 19, 2021@18:18 ENTRY DATE: NOV 20, 2021@18:18:28 AUTHOR: VAZQUEZ DAVIS EXP COSIGNER: URGENCY: STATUS: COMPLETED COMMUNITY CARE-ELZBIETA SELF PRESENTING CARE CO ORD PLAN NOTE Has ADDENDA Emergency Notification Intake Date Presenting to the Facility: Nov Method of Contact: Notified from tuul worklist Notification ID: [id number] [facility] Referral #: [facility] Name: Hospital: [facility] - Address: City: [facility] State: Zip Code: Phone : [facility] Point of Contact: Name: Chief complaint: Pretty [place] [facility] Primary Diagnosis: Disposition Unknown at time of intake note entry 11/20/2021 TLOTT ? VERIFIED/ MATCHED VET INFO THROUGH [facility]; ENROLLMENT, NSC, P&T, OHI - LOOKED UP ICN & 24MO ? CHECKED CLOSEST FAC ILITY FOR IN NETWORK DETERMINATION & VA AVAILABILITY ? LAYPER SON APPROVED - CLOSED 1700 - PUSHED TO [facility] - EMAIL/FAX SENT TO POC /mikal/ VAZQUEZ DAVIS FLOOR CLERK Signed: 11/20/2021 18:20 Receipt Acknowledged By: 11/22/2021 08:16 /mikal/ BAKARI CHAES RN RCM/CCUM 11/22/2021 ADDENDUM STATUS: COMPLETED Fax sent for records. /mikal/ BAKARI CHASE RN RCM/CCUM Signed: 11/22/2021 08:26 Receipt Acknowledged By: 11/22/2021 11:25 /mikal/ RACHAEL WILD, RN REGISTERED NURSE for HERI BRAUN 11/29/2021 ADDENDUM STATUS: COMPLETED ER [facility] 11/19/21 dx chest pain dc to home Information obtained from facility via f ax and sent to [facility] to be scanned into [facility] electronic medical record in [facility] under Documents. PLEASE REVIEW HOSPITAL RECORDS FOR [...] to the ED for f/u seen ED [facility] on 11/19/2021 for chest pain, s ome [...]
--- OUTSIDE RECORDS SUMMARY | 2022-10-13 17:22 | XMS_ITS | Encounter Summary ---
:1950 Author Organization [facility] Address [address] [place] [address] Support Name Relationship Address Phone MADELIN MANTILLA Unavailable [address] [phone] [place] [address] MADELIN MANTILLA Unavailable [address] [phone] [place] [address] DHAVAL MANTILLA Unavailable [address] [place] [address] Insurance Providers: All historical and current Section [...] MEDICARE MEDICARE PART Jul 18, PART B [id number] ANNALEE BUSTILLO (WNR) (M) B 2014A [phone] ,REGI MEDICARE MEDICARE PART Apr 17, PART A [id number] 800 ANNALEE BUSTILLO (WNR) (M) A 2012A [phone] ,REGI Selected Encounter This section includes the [...] 05, 2022 12:30 PM AMBULATORY - NONE [facility] Mar 05, 2022 01:30 PM AMBULATORY - MEDICINE [facility] Mar 12, 2022 11:00 AM AMBULATORY - MEDICINE [facility] March 19, 2022 06:03 PM AMBULATORY - NONE [facility] April 10, 2022 11:00 AM AMBULATORY - MEDICINE [facility] April 10, 2022 11:30 AM AMBULATORY - MEDICINE [facility] April 12, 2022 08:30 AM AMBULATORY - MEDICINE [facility] May 07, 2022 09:00 AM AMBULATORY - MEDICINE [facility] May 15, 2022 10:30 AM AMBULATORY - MEDICINE [facility] May 15, 2022 10:40 AM AMBULATORY - MEDICINE [facility] May 15, 2022 11:30 AM AMBULATORY - MEDICINE [facility] May 15, 2022 01:00 PM AMBULATORY - MEDICINE [facility] May 15, 2022 01:45 PM AMBULATORY - NONE [facility] Jun 19, 2022 01:15 PM AMBULATORY - NONE [facility] Jun 24, 2022 05:53 PM AMBULATORY - MEDICINE [facility] Jul 15, 2022 02:49 PM AMBULATORY - NONE [facility] Jul 16, 2022 12:20 PM AMBULATORY - NONE [facility] Jul 17, 2022 10:22 PM AMBULATORY - NONE [facility] Jul 19, 2022 07:00 AM AMBULATORY - NONE [facility] Jul 19, 2022 08:00 AM AMBULATORY - MEDICINE [facility] Lab Results: +/- 30 days of the encounter This section includes the Chemistry and Hematology Lab Results on record with DC for the patient. Radiology Reports and Pathology Reports are provided separately, in subsequent sections.Lab Results This section contains the Chemistry/Hematology Results that were resulted 30 days before or 30 daysafter the date of the Encounter. Date/Time Source Result Type Result - Unit Interpretation Reference Range Comment Mar 05, 2022 11:47 AM [facility] HEMOGLOBIN A1C Specim en Type: BLOOD No comment enter ed. Ordering Provid er: MARYELLEN LEON Report Released Date/Time: Jun 01, 2021 04:21 PM Reporting Lab: [facility] [address] [facility] [address] [facility] [id number] Performing Lab: [facility] [address] [facility] [address] HEMOGLOBIN A1C 5.6 4.0-6.0 Mar 05, 2022 11:47 [facility] BASIC METABOLIC Specimen Type: PLASMA AM PANEL+MG No comment enter ed. Ordering Provid er: MARYELLEN LEON Report Released Date/Time: Jun 01, 2021 04:21 PM Reporting Lab: [facility] [address] [facility] [address] Performing Lab: [facility] [address] [facility] [address] CREATININE 1.0 0.7-1.2 UREA NITROGEN 21 8-26 GLUCOSE 112 H 74-100 SODIUM 139 136-145 POTASSIUM 4.9 3.5-5.1 CHLORIDE 103 98-107 CO2 25 22-29 CALCIUM 9.6 8.4-10.2 MAGNESIUM 1.6 1.6-2.6 ANION GAP 11 5-15 CREAT EGFR(CKD-EPI) 79 >60 Mar 05, 2022 11:47 [facility] LIPID PANEL,NON-FASTING S pecimen Type: PLASMA AM No comment enter ed. Ordering Provid er: MARYELLEN LEON Report Released Date/Time: Jun 01, 2021 04:21 PM Reporting Lab: [facility] [address] [facility] [address] Performing Lab: [facility] [address] [facility] [address] CHOLESTEROL 188 <199 .HDL 83 >40 LDL CALCULATION 78 <99 VLDL CALCULATION 27 <29 NON HDL CHOLESTEROL 105 <129 TRIG(NON FASTING) 133 <149 Mar 05, 2022 11:47 AM [facility] AST/SGOT Specim en Type: PLASMA No comment enter ed. Ordering Provid er: MARYELLEN LEON Report Released Date/Time: Mar 05, 2022 01:38 PM Reporting Lab: [facility] [address] [facility] [address] Performing Lab: [facility] [address] [facility] [address] AST/SGOT 21 <34 Mar 05, 2022 11:47 AM [facility] ALT/SGPT Specim en Type: PLASMA No comment enter ed. Ordering Provid er: MARYELLEN LEON Report Released Date/Time: Mar 05, 2022 01:38 PM Reporting Lab: [facility] [address] [facility] [address] Performing Lab: [facility] [address] [facility] [address] ALT/SGPT 15 <55 Social History: Smoking Status [...] 2021 02:00 PM [facility]ACCO [facility] Tobacco Use History This section includes a history of the smoking, or tobacco- related health factors, that were collected on or before the date of the Encounter. The data comes from the [place] facility where the Encounter took place. Date/Time Smoking Status/Tobacco Use Comment [facility] Dec 31, 2019 10:54 AM VA-TOBACCO FORMER USER [facility] Dec 31, 2019 10:54 AM [place]-TOBACCO QUIT < 1 YEAR M [facility] March 23, 2019 09:53 AM VA-TOBACCO FORMER USER [facility] March 23, 2019 09:53 AM VA-TOBACCO QUIT < 1 YEAR M [facility] Jun 10, 2018 10:00 AM CURRENT TOBACCO USER [facility] May 10, 2018 07:27 PM INPT TOBACCO COUNSELING [place] [facility] May 10, 2018 07:27 PM [facility] Aug 29, 2017 09:55 AM FORMER TOBACCO USE <1Y [facility] May 26, 2017 10:51 PM INPT TOBACCO COUNSELING [facility] May 26, 2017 10:51 PM [place] [facility] May 03, 2017 09:34 PM [facility] May 03, 2017 09:34 PM INPT [place]ACCO US[place] [facility] Sep 18, 2016 01:36 PM FORMER TOBACCO USE <1Y [facility] Aug 10, 2016 03:54 PM INPT TOBACCO USE - PT REFUSED [facility] Aug 01, 2016 06:48 PM INPT TOBACCO COUNSELING [facility] Aug 01, 2016 06:48 PM INPT TOBACCO USER [facility] [facility] Feb 08, 2015 09:57 AM CURRENT TOBACCO USER [facility] Nov 29, 2013 10:37 AM CURRENT TOBACCO USER [facility] Nov 26, 2013 11:09 AM PATIENT IS TOBACCO USER [place] RAD[facility] Nov 27, 2012 12:12 PM CURRENT [facility]BACCO [facility] Dec 27, 2011 09:44 AM CURRENT TOBACCO USER [facility] Jan 22, 2011 02:38 PM CURRENT TOBACCO USER [facility] Mar 13, 2010 12:48 PM CURRENT TOBACCO USER [facility] Advance Directives: All historical and current [...] Feb 25, 2018 ADVANCE DIRECTIVE AURORA MORALES [facility] Feb 24, 2018 ADVANCE DIRECTIVE DISCUSSION AURORA MORALES [facility] May 26, 2017 CLINICAL WARNING MAGO CONTRERAS [facility] May 03, 2017 CLINICAL WARNING SARIAH ENGLE [facility] Aug 10, 2016 CLINICAL WARNING ISABEL BARCENAS [facility] Aug 02, 2016 CLINICAL WARNING AURORA ALMAZAN [facility] Encounter Notes: All associated encounter notes This section contains the clinical notes associated to the Encounter. Date/Time Encounter Note(s) Provider Source Feb 17, 2022 08:11 PM NONVA NOTE: VANNA CHAVARRIAIda [facility] LOCAL TITLE: COMMUNITY CARE-ELZBIETA SELF PRESENTIN G CARE COORD PLAN STANDARD TITLE: NONVA NOTE DATE OF NOTE: FEB 17, 2022@20:11 ENTRY DATE: FEB 17, 2022@20:12 AUTHOR: VANNA CHAVARRIA EXP COSIGNER: URGENCY: STATUS: COMPLETED COMMUNITY CARE-ELZBIETA SELF PRESENTING CARE CO ORD PLAN NOTE Has ADDENDA Emergency Notification Intake Date Presenting to the Facility: Feb Method of Contact: [facility] Name: Hospital: [facility] Address: [address] City: [place]: [place] Zip Code: Community Facility Point of Contact: [place] [facility] Chief complaint: Anemia/multiple medical complai nts Primary Diagnosis: Disposition Treatment in progress Sent ECAT email Per the Nursing Manager Environmental Health, there are no beds at the [facility]. /es/ VANNA CHAVARRIA END FINDER FORMING DEPARTMENT ON DUTY Signed: 02/17/2022 20:16 Receipt Acknowledged By: 02/18/2022 14:21 /mikal/ BAKARI CHASE RN Utilization Management 02/18/2022 ADDENDUM STATUS: COMPLETED NOTIFICATION ID#[id number] STATUS:Closed - Approved for 1703 /es/ NIRALI BARRON BIOMEDICAL ENGINEERING PROFESSOR (AOD) Signed: 02/18/2022 11:45 02/18/2022 ADDENDUM STATUS: COMPLETED Faxed for records. /mikal/ BAKARI CHASE RN Utilization Management Signed: 02/18/2022 14:20 02/21/2022 ADDENDUM STATUS: COMPLETED [id number] /es/ VAZQUEZ DAVIS BIOMEDICAL ENGINEERING PROFESSOR Signed: 02/21/2022 19:23 02/27/2022 ADDENDUM STATUS: COMPLETED ER [place] 02/17/22 dx CP Transferred to [facility] HIMS received and imported NONVA ER Note, see no te 02/17/22 /mikal/ BAKARI CHASE RN Utilization Management Signed: 02/27/2022 16:23 Receipt Acknowledged By: 02/27/2022 16:27 /es/ MARYELLEN LEON MD Staff Physician 02/27/2022 16:29 /es/ STUART BERNSTEIN,MALIKA REGISTERED NURSE for HERI BRAUN
--- OUTSIDE RECORDS SUMMARY | 2022-10-13 17:22 | XMS_ITS | Encounter Summary ---
:1950 Author Organization [facility] Address [address] [place] [address] Support Name Relationship Address Phone MADELIN MANTILLA Unavailable [address] [phone] [place] [address] MADELIN MANTILLA Unavailable [address] [phone] [place] [address] DHAVAL MANTILLA Unavailable [address] [place] [address] Insurance Providers: All historical and current Section [...] MEDICARE MEDICARE PART Jul 18, PART B [id number] 800 ANNALEE BUSTILLO (WNR) (M) B 2014A [phone] ,REGI MEDICARE MEDICARE PART Apr 17, PART A [id number] 800 ANNALEE BUSTILLO (WNR) (M) A 2012A [id number] ,[employer] Selected Encounter This section includes the information on record at [place] for the Encounter. Date/Time Encounter Type Encounter Reason Provider Source Description Jan 11, 2022 OFFICE O/P EST RHEUMATOLOGY/ARTH ICD-10-CM M06.9 NAS ORDOÑEZ 10:00 AM MOD 30-39 MIN RITIS Rheumatoid A arthritis, unspecified with Provider Comments: Seropositive rheumatoid arthritis ([facility] [id number]) IHE Encounter Template Text not used by [place] Assessments - Encounter Diagnoses This section includes the primary and secondary diagnoses documented for the Encounter. Date/Time Primary/Secondary Diagnosis Name Provider Source Diagnosis Jan 11, 2022 PRIMARY Rheumatoid ORLANDO,NAS COHEN [place] 04:21 PM arthritis, A [facility] unspecified Jan 11, 2022 SECONDARY Alcohol abuse NAS ORDOÑEZ V A 04:21 PM with unspecified A H[facility] alcohol-induced disorder Jan 11, 2022 SECONDARY medical terminologist NAS ORDOÑEZ [place] 04:21 PM (current) use of A HCS systemic steroids Jan 11, 2022 SECONDARY Other terminal carman NAS ORDOÑEZ [facility] 04:21 PM (current) drug A HCS therapy Plan of Treatment: Future Appointments (+ 6 months) and Future Tests (+/- 45 days) The Plan of Treatment section includes future care activities for the patient [facility]. This section includes future appointments and future orders which are active, pending orscheduled.Future Appointments This section includes appointments that were scheduled to occur 6 months from the date of the Encounter, up to a maximum of 20 appointments. The data comes from all [place] treatment facilities. Appointment Date/Time Appointment Type Appointment Facili ty Name Feb 17, 2022 08:09 PM AMBULATORY - NONE [facility] Mar 05, 2022 12:30 PM AMBULATORY - NONE [facility] Mar 05, 2022 01:30 PM AMBULATORY - MEDICINE [facility] Mar 12, 2022 11:00 AM AMBULATORY - MEDICINE [facility] March 19, 2022 06:03 PM AMBULATORY - NONE [facility] April 10, 2022 11:00 AM AMBULATORY - MEDICINE [facility] April 10, 2022 11:30 AM AMBULATORY - MEDICINE [facility] April 12, 2022 08:30 AM AMBULATORY - MEDICINE [facility] May 07, 2022 09:00 AM AMBULATORY - MEDICINE [facility] May 15, 2022 10:30 AM AMBULATORY - MEDICINE [facility] May 15, 2022 10:40 AM AMBULATORY - MEDICINE [facility] May 15, 2022 11:30 AM AMBULATORY - MEDICINE [facility] May 15, 2022 01:00 PM AMBULATORY - MEDICINE [facility] May 15, 2022 01:45 PM AMBULATORY - NONE [facility] Jun 19, 2022 01:15 PM AMBULATORY - NONE [facility] Jun 24, 2022 05:53 PM AMBULATORY - MEDICINE [facility] Lab Results: +/- 30 days [...] Interpretation Reference Range Comment Jan 11, 2022 [facility] RHEUMATOLOGY CHEM PANEL Spec imen Type: PLASMA 09:15 AM No comment enter ed. Ordering Provid er: NAS ORDOÑEZ Report Released Date/Time: Dec 21, 2021 10:38 AM Reporting Lab: [facility] [address] Performing Lab: [facility] [address] CREATININE 1.0 0.7-1.2 ALKALINE PHOSPHATASE 65 40-150 ALT/SGPT 41 <55 AST/SGOT 100 H <34 C-REACTIVE PROTEIN 5.03 H <5.00 ESTIMATED GFR(eGFR) 73 >60 Jan 11, 2022 [facility] RHEUMATOLOGY HEME PANEL Spec imen Type: BLOOD 09:15 AM Comment: Automa david Differential Performed Ordering Provid er: NAS ORDOÑEZ Report Released Date/Time: Dec 21, 2021 10:38 AM Reporting Lab: [facility] [address] Performing Lab: [facility] [address] WBC 10.65 4.0-11.0 RBC 3.65 L 4.6-6.2 [...] Pressure Rate Mass Index Jan 11, 148/96 [facility] 2021 09:54 mm[Hg] [facility] Jan 11, 97.6 F 95 152/92 18 /min 95 % 7 123.8 24 [facility] 2021 09:50 /min mm[Hg] lb [facility] Social History: Smoking Status (Most current) and Tobacco Use (All prior to encounter date) This section includes the most current, and the historical, smoking and tobacco-related health factors from the [facility] where the Encounter took place.Current Smoking Status This section includes the most current smoking, or tobacco-related health factor, from the [place] facility where the Encounter took place. Date/Time Current Smoking Status Comment Facility Jun 01, 2021 02:00 PM [facility] Tobacco Use History This section includes a history of the smoking, or tobacco- related health factors, that were collected on or before the date of the Encounter. The data comes from the [facility] where the Encounter took place. Date/Time Smoking Status/Tobacco Use Comment [facility] Dec 31, 2019 10:54 AM VA-TOBACCO FORMER USER [facility] Dec 31, 2019 10:54 AM [place]-TOBACCO QUIT < [address] [facility] March 23, 2019 09:53 AM VA-TOBACCO FORMER USER [facility] March 23, 2019 09:53 AM VA-TOBACCO QUIT < 1 YEAR [facility] Jun 10, 2018 10:00 AM CURRENT TOBACCO USER [place] [facility] May 10, 2018 07:27 PM INPT TOBACCO COUNSELING [place] [facility] May 10, 2018 07:27 PM INPT TOBACCO USER [place] [facility] Aug 29, 2017 09:55 AM FORMER TOBACCO USE <1Y [facility] May 26, 2017 10:51 PM INPT TOBACCO COUNSELING [place] [facility] May 26, 2017 10:51 PM INPT TOBACCO USER [place] [facility] May 03, 2017 09:34 PM INPT TOBACCO COUNSELING [place] [facility] May 03, 2017 09:34 PM INPT TOBACCO USER [place] [facility] Sep 18, 2016 01:36 PM FORMER TOBACCO USE <1Y [facility] Aug 10, 2016 03:54 PM INPT TOBACCO USE - PT REFUSED [facility] Aug 01, 2016 06:48 PM INPT TOBACCO COUNSELING ANAID GARCIA [facility] Aug 01, 2016 06:48 PM INPT TOBACCO USER GONZALES LORENZ [facility] Feb 08, 2015 09:57 AM CURRENT TOBACCO USER LAWSON JUAREZS [facility] Nov 29, 2013 10:37 AM CURRENT TOBACCO USER [place] JUAREZS [facility] Nov 26, 2013 11:09 AM PATIENT IS TOBACCO USER ANAID GARCIA [facility] Nov 27, 2012 12:12 PM CURRENT TOBACCO USER [place] ADAME [facility] Dec 27, 2011 09:44 AM CURRENT TOBACCO USER [place] ADAME [facility] Jan 22, 2011 02:38 PM CURRENT TOBACCO USER [place] HUMPHIRESL[facility] Mar 13, 2010 12:48 PM CURRENT TOBACCO USER [facility] Advance Directives: All historical and current Section Date Range: From patient's date of to the date document was created. This section includes ALL of a patient's completed or amended [place] Advance and Rescinded Directives. The entries below indicate that a directive exists for the patient, but an actual copy is not included with this document. The data comes from all [place] facilities. Date Advance Directives Provider Source Feb 25, 2018 ADVANCE DIRECTIVE AURORA MORALES [facility] Feb 24, 2018 ADVANCE DIRECTIVE DISCUSSION A[facility]ORA MORALES [facility] May 26, 2017 CLINICAL WARNING MAGO CONTRERAS [facility] May 03, 2017 CLINICAL WARNING SARIAH ENGLE [facility] Aug 10, 2016 CLINICAL WARNING ISABEL BARCENAS [facility] Aug 02, 2016 CLINICAL WARNING [facility] ALMAZAN [facility] Encounter Notes: All associated encounter notes This section contains the clinical notes associated to the Encounter. Date/Time Encounter Note(s) Provider Source Jan 11, 2022 10:10 RHEUMATOLOGY ATTENDING NOTE: JENNA LUIS [facility] AM LOCAL TITLE: RHEUMATOLOGY CLINIC [...] ON AN EMPTY STOMACH, AT LEAST 30 MD NUTES PRIOR TO MEAL PREDNISONE 10MG TAB [...] * 3. HTN - Hypertension (SNOMED CT 94278173) 4. Hyperlipidemia (SNOMED CT 75458589) 5. Alcohol abuse (SNOMED CT 74664160) 6. Cannabis abuse (SNOMED CT 33678487) 7. Pain in joint involving shoulder region - RIGHT 8. Anemia (SNOMED CT 366781070) 9. Jt Replcmnt Stat, Knee 10. Gastroesophageal reflux disease (SNOMED CT 2 98145820) 11. CAD - Coronary artery disease - [...] COMMENTS AVAILABLE...Refer to Inter im Lab Report. YOLILUZ 12 (01/11/22) C-RP - 5.02 AST - [...] months w/labs. -Continue adalimumab 40 mg subq [id number], SSA 100 0 mg BID, prednisone 10 mg daily, folic acid. Patient seen, examined and discussed with staff Guide Visitor Dr. Ordoñez. /mikal/ JENNA LUIS DO RHEUMATOLOGY FELLOW Signed: 01/11/2022 11:33 Receipt Acknowledged By: * AWAITING SIGNATURE * NAS ORDOÑEZ Jan 11, 2022 09:51 INTERNAL MEDICINE OUTPATIENT NOTE: [facility] LOCAL TITLE: MEDICINE CLINIC NURSING [...]
--- OUTSIDE RECORDS SUMMARY | 2022-10-13 17:22 | XMS_ITS | Encounter Summary ---
:1950 Author Organization [facility] Address [address] [place] [id number] Support Name Relationship Address Phone MADELIN MANTILLA Unavailable [address] [phone] [place] [address] MADELIN MANTILLA Unavailable [address] [phone] [place] [address] DHAVAL MANTILLA Unavailable [address] [place] [address] Insurance Providers: All historical and current Section [...] MEDICARE MEDICARE PART Jul 18, PART B [id number] 800 ANNALEE BUSTILLO (WNR) (M) B 2014A [phone] ,REGI MEDICARE MEDICARE PART Apr 17, PART A [id number] 800 ANNALEE BRYANIENT (WNR) (M) A 2012A [phone] ,[place] Selected Encounter This section includes the information on record at [place] for the Encounter. Date/Time Encounter Type Encounter Reason Provider Source Description Jan 07, 2022 EMERGENCY DEPT EMERGENCY DEPT ICD-10-CM K02.9 GERALDO MARK 08:46 AM VISIT Dental caries, unspecified with Provider Comments: Dental Caries, unspecified IHE Encounter Template Text not used by [facility] Assessments - Encounter Diagnoses This section includes the primary and secondary diagnoses documented for the Encounter. Date/Time Primary/Secondary Diagnosis Name Provider Source Diagnosis Jan 07, 2022 PRIMARY Dental caries, GERALDO MARK [facility] 09:54 AM unspecified [facility] Plan of Treatment: Future Appointments (+ 6 months) and Future Tests (+/- 45 days) The Plan of Treatment section includes future care activities for the patient from all [facility]. This section includes future appointments and future orders which are active, pending orscheduled.Future Appointments This section includes appointments that were scheduled to occur 6 months from the date of the Encounter, up to a maximum of 20 appointments. The data comes from all [place] treatment facilities. Appointment Date/Time Appointment Type Appointment Facili ty Name Jan 11, 2022 09:00 AM AMBULATORY - MEDICINE [facility] Jan 11, 2022 10:00 AM AMBULATORY - MEDICINE [facility] Feb 17, 2022 08:09 PM AMBULATORY - NONE [facility] Mar 05, 2022 12:30 PM AMBULATORY [facility] Mar 05, 2022 01:30 PM AMBULATORY - MEDICINE [facility] Mar 12, 2022 11:00 AM AMBULATORY - [facility]ICINE [facility] March 19, 2022 06:03 PM AMBULATORY [facility] April 10, 2022 11:00 AM AMBULATORY - MEDICINE [facility] April 10, 2022 11:30 AM AMBULATORY - [facility]ICINE [facility] April 12, 2022 08:30 AM AMBULATORY - MEDICINE [facility] May 07, 2022 09:00 AM AMBULATORY - [facility]ICINE [facility] May 15, 2022 10:30 AM AMBULATORY - [facility]ICINE [facility] May 15, 2022 10:40 AM AMBULATORY - [facility]ICINE [facility] May 15, 2022 11:30 AM AMBULATORY - MEDICINE [facility] May 15, 2022 01:00 PM AMBULATORY - MEDICINE [facility] May 15, 2022 01:45 PM AMBULATORY - [facility] Jun 19, 2022 01:15 PM AMBULATORY - [facility] Jun 24, 2022 05:53 PM AMBULATORY - MEDICINE [facility] Lab Results: +/- 30 days of [...] Interpretation Reference Range Comment Jan 11, 2022 [facility] RHEUMATOLOGY CHEM PANEL Spec imen Type: PLASMA 09:15 AM No comment enter ed. Ordering Provid er: NAS PERRY Report Released Date/Time: Dec 21, 2021 10:38 AM Reporting Lab: [facility] [address] Performing Lab: [facility] [address] CREATININE 1.0 0.7-1.2 ALKALINE PHOSPHATASE 65 40-150 ALT/SGPT 41 <55 AST/SGOT 100 H <34 C-REACTIVE PROTEIN 5.03 H <5.00 ESTIMATED GFR(eGFR) 73 >60 Jan 11, 2022 [facility] RHEUMATOLOGY HEME PANEL Spec imen Type: BLOOD 09:15 AM Comment: Automa david Differential Performed Ordering Provid er: NAS PERRY Report Released Date/Time: Dec 21, 2021 10:38 AM Reporting Lab: [facility] [address] Performing Lab: [facility] [address] WBC 10.65 4.0-11.0 RBC 3.65 L 4.6-6.2 [...] 8 [place] 2021 08:58 /min mm[Hg] [facility] Social History: Smoking Status [...] 2021 02:00 PM [facility]ACCO [facility] Tobacco Use History This section includes a history of the smoking, or tobacco- related health factors, that were collected on or before the date of the Encounter. The data comes from the [place] facility where the Encounter took place. Date/Time Smoking Status/Tobacco Use Comment [facility] Dec 31, 2019 10:54 AM VA-TOBACCO FORMER USER [facility] Dec 31, 2019 10:54 AM AR-TOBACCO QUIT < [address] [facility] March 23, 2019 09:53 AM VA-TOBACCO FORMER USER [facility] March 23, 2019 09:53 AM VA-TOBACCO QUIT < [address] [facility] Jun 10, 2018 10:00 AM CURRENT TOBACCO USER [facility] May 10, 2018 07:27 PM INPT TOBACCO COUNSELING [facility] May 10, 2018 07:27 PM INPT TOBACCO USER [facility] Aug 29, 2017 09:55 AM FORMER TOBACCO USE <1Y [facility] May 26, 2017 10:51 PM INPT [place]BACCO COUNSELING [facility] May 26, 2017 10:51 PM INPT TOBACCO USER [facility] May 03, 2017 09:34 PM [place]PT [place]AC[place] [facility] May 03, 2017 09:34 PM [facility] Sep 18, 2016 01:36 PM FORMER TOBACCO USE <1Y [facility] Aug 10, 2016 03:54 PM INPT TOBACCO USE - PT REFUSED [facility] Aug 01, 2016 06:48 PM INPT TOBACCO COUNSELING [facility] Aug 01, 2016 06:48 PM INPT TOBACCO USER [facility] Feb 08, 2015 09:57 AM CURRENT TOBACCO USER [facility] Nov 29, 2013 10:37 AM CURRENT TOBACCO USER [facility] Nov 26, 2013 11:09 AM PATIENT IS TOBACCO USER [facility] Nov 27, 2012 12:12 PM CURRENT TOBACCO USER [facility] KRISTELChelita [facility] Dec 27, 2011 09:44 AM CURRENT TOBACCO USER [facility] Jan 22, 2011 02:38 PM CURRENT TOBACCO USER [facility] Mar 13, 2010 12:48 PM CURRENT TOBACCO USER [facility] Advance Directives: All historical and [...] 09:55 PHYSICIAN EMERGENCY DEPT NOTE: GERALDO MARK [facility] AM LOCAL TITLE: EMERGENCY DEPT NOTE STANDARD TITLE: PHYSICIAN EMERGENCY DEPT NOTE DATE OF NOTE: JAN 07, 2022@09:55 ENTRY DATE: JAN 07, 2022@09:55:38 AUTHOR: GERALDO MARK EXP COSIGNER: URGENCY: STATUS: COMPLETED Personal Protective Equipment (PPE): MD/PA/ENVIRONMENTAL SERVICES FLOOR TECH u sed PPE during every encounter with [...] not qualified for dental care at the AR. he tells me that he after eating [...] * 3. HTN - Hypertension (SNOMED CT 66597010) 4. Hyperlipidemia (SNOMED CT 65039779) 5. Alcohol abuse (SNOMED CT 93235085) 6. Cannabis abuse (SNOMED CT 24807483) 7. Pain in joint involving shoulder region - RIGHT 8. Anemia (SNOMED CT 678121221) 9. Jt Replcmnt Stat, Knee 10. Gastroesophageal reflux disease (SNOMED CT 057325969) 11. CAD - Coronary artery disease - [...] lymphadenopathy Consultative Services Service: Dental Name of medical economics consultant: marii Jiménez by phone ED Course/Medical Decision Making/Assessment: Diagnosis: Extensive dental caries, chipped toot h; associated headache Plan: Unfortunately pt is no t qualified for dental care at the [facility]. Resouces for low cost dental care given. To f/up dentist RIANA . Tylenol PRN headache as directed. Warning signs and symptoms explained, be seen [facility]IANA if worsening. Disposition: Home Condition on discharge: Stable /es/ GERALDO MARK MD PHYSICIAN ED/MOD Signed: 01/07/2022 18:33 Jan 07, 2022 09:53 NURSING EMERGENCY DEPT NOTE: [facility] LOCAL TITLE: EMERGENCY DEPT NURSING NOTE STANDARD [...] during every encounter with the pat MD panda/PA/ENVIRONMENTAL SERVICES FLOOR TECH used PPE during every encounter with the [...] 09:03 NURSING EMERGENCY DEPT NOTE: [facility] LOCAL TITLE: EMERGENCY DEPT NURSING NOTE STANDARD [...] NURSING EMERGENCY DEPT TRIAGE NOTE: [facility] TITLE: EMERGENCY DEPARTMENT NURSING TRIEUSEBIO [facility] TITLE: NURSING EMERGENCY DEPT TRIAGE NO TE [...] DAY Current Problems: Benign essential hypertension (SCT 94641Vcioagi loss (ICD-9-CM 389.9) HTN - Hypertension (SCT 75291710) Hyperlipidemia (SCT 82616570) Alcohol abuse (SCT 80823845) Cannabis abuse (SCT 71394768) Pain in joint involving shoulder region Anemia ( SCT 007507241) Jt Replcmnt Stat, Knee (ICD-9-CM V43.65)Gastroes ophageal reflux disease ([facility] 130378931) CAD - Coronary artery disease ([facility] 94949Riahm no n-ST segment elevation myocardial infarction ([facility] 131898107) Chronic kidney disease ([facility] 799189766) Rib fract ure ([facility] 22828849) Pain of right shoulder joint ([facility] 021952Opxm landry n ([facility] 13575633) Ankle pain ([facility] 830362536) Rhinitis ([facility] 4153427 2) Seropositive rheumatoid arthritis (SCT 2 Coronavirus [...] negative. Result: Screen is negative. Suicide Screen: [place] Suicide Severity Rating Scale (C-SSRS) screener 1. [...] the past month, have you had these [facility] ghts and had some intention of acting [...] to responses to other questions. /mikal/ LEXIE PEREZ,SHUTTLER CAR NURSE Signed: 01/07/2022 09:01
--- OUTSIDE RECORDS SUMMARY | 2022-10-13 17:23 | XMS_ITS | Encounter Summary ---
:1950 Author Organization [facility] Address [address] [place] [address] Support Name Relationship Address Phone MADELIN MANTILLA Unavailable [address] [phone] [place] [address] MADELIN MANTILLA Unavailable [address] [phone] [place] [address] DHAVAL MANTILLA Unavailable [address] [place] [address] Insurance Providers: All historical and current Section [...] MEDICARE MEDICARE PART Jul 18, PART B [id number] 800 ANNALEE BRYANIENT (WNR) (M) B 2014A [phone] ,REGI MEDICARE MEDICARE PART Apr 17, PART A [id number] 800 ANNALEE Cardenas ATIENT (WNR) (M) A 2012A [phone] ,[place] Selected Encounter This section includes the information [...] activities for the patient from all [facility] This section includes future [...] 19, 2022 06:03 PM AMBULATORY - NONE [facility] April 10, 2022 11:00 AM AMBULATORY - MEDICINE [facility] April 10, 2022 11:30 AM AMBULATORY - MEDICINE [facility] April 12, 2022 08:30 AM AMBULATORY - MEDICINE [facility] May 07, 2022 09:00 AM AMBULATORY - MEDICINE [facility] May 15, 2022 10:30 AM AMBULATORY - MEDICINE [facility] May 15, 2022 10:40 AM AMBULATORY - MEDICINE [facility] May 15, 2022 11:30 AM AMBULATORY - MEDICINE [facility] May 15, 2022 01:00 PM AMBULATORY - MEDICINE [facility] May 15, 2022 01:45 PM AMBULATORY - NONE [facility] Jun 19, 2022 01:15 PM AMBULATORY - NONE [facility] Jun 24, 2022 05:53 PM AMBULATORY - MEDICINE [facility] Jul 15, 2022 02:49 PM AMBULATORY - NONE [facility] Jul 16, 2022 12:20 PM AMBULATORY - NONE [facility] Jul 17, 2022 10:22 PM AMBULATORY - NONE [facility] Jul 19, 2022 07:00 AM AMBULATORY - NONE [facility] Jul 19, 2022 08:00 AM AMBULATORY - MEDICINE [facility] Jul 19, 2022 09:00 AM AMBULATORY - MEDICINE [facility] Jul 24, 2022 11:00 AM AMBULATORY - [facility]ICINE [facility] Jul 25, 2022 09:00 AM AMBULATORY - NONE [facility] Lab Results: +/- 30 days of the encounter This section includes the Chemistry and Hematology Lab Results on record with [place] for the patient. Radiology Reports and Pathology Reports are provided separately, in subsequent sections.Lab Results This section contains the Chemistry/Hematology Results that were resulted 30 days before or 30 daysafter the date of the Encounter. Date/Time Source Result Type Result - Unit Interpretation Reference Range Comment Mar 05, 2022 11:47 AM [facility] HEMOGLOBIN A1C Specim en Type: BLOOD No comment enter ed. Ordering Provid er: MARYELLEN LEON Report Released Date/Time: Jun 01, 2021 04:21 PM Reporting Lab: [facility] [address] [facility] [address] Performing Lab: [facility] [address] [facility] [address] HEMOGLOBIN A1C 5.6 4.0-6.0 Mar 05, 2022 11:47 [facility] LIPID PANEL,NON-FASTING S pecimen Type: PLASMA AM No comment enter ed. Ordering Provid er: MARYELLEN LEON Report Released Date/Time: Jun 01, 2021 04:21 PM Reporting Lab: [facility] [address] [facility] [facility] [address] Performing Lab: [facility] [address] CHOLESTEROL 188 <199 .HDL 83 >40 LDL CALCULATION 78 <99 VLDL CALCULATION 27 <29 NON HDL CHOLESTEROL 105 <129 TRIG(NON FASTING) 133 <149 Mar 05, 2022 11:47 [facility] BASIC METABOLIC Specimen Type: PLASMA AM PANEL+MG No comment enter ed. Ordering Provid er: MARYELLEN LEON Report Released Date/Time: Jun 01, 2021 04:21 PM Reporting Lab: [facility] [address] [facility] [address] Performing Lab: [facility] [address] [facility] [address] CREATININE 1.0 0.7-1.2 UREA NITROGEN 21 8-26 GLUCOSE 112 H 74-100 SODIUM 139 136-145 POTASSIUM 4.9 3.5-5.1 CHLORIDE 103 98-107 CO2 25 22-29 CALCIUM 9.6 8.4-10.2 MAGNESIUM 1.6 1.6-2.6 ANION GAP 11 5-15 CREAT EGFR(CKD-EPI) 79 >60 Mar 05, 2022 11:47 AM [facility] AST/SGOT Specim en Type: PLASMA No comment enter ed. Ordering Provid er: MARYELLEN LEON Report Released Date/Time: Mar 05, 2022 01:38 PM Reporting Lab: [facility] [address] [facility] [address] Performing Lab: [facility] [address] [facility] [address] AST/SGOT 21 <34 Mar 05, 2022 11:47 AM [facility] ALT/SGPT Specim en Type: PLASMA No comment enter ed. Ordering Provid er: MARYELLEN LEON Report Released Date/Time: Mar 05, 2022 01:38 PM Reporting Lab: [facility] [address] [facility] [address] Performing Lab: [facility] [address] [facility] [address] ALT/SGPT 15 <55 Social History: Smoking Status [...] VA-TOBACCO QUIT 1 TO < 5 YRS [facility] Jun 01, 2021 02:00 PM [facility] Dec 31, 2019 10:54 AM VA-TOBACCO FORMER USER [place] [facility] Dec 31, 2019 10:54 AM VA-TOBACCO QUIT < 1 YEAR M [facility] March 23, 2019 09:53 AM VA-TOBACCO FORMER USER [place] [facility] March 23, 2019 09:53 AM VA-TOBACCO QUIT < 1 [facility]AR [facility] Jun 10, 2018 10:00 AM CURRENT TOBACCO USER [place] [facility] May 10, 2018 07:27 PM INPT TOBACCO COUNSELING [place] [facility] May 10, 2018 07:27 PM INPT [place]AC[place] [facility] Aug 29, 2017 09:55 AM FORMER TOBACCO USE <1Y [place] [facility] May 26, 2017 10:51 PM INPT TOBACCO COUN[place] [facility] May 26, 2017 10:51 PM INPT [place] [facility] May 03, 2017 09:34 PM INPT TOBACCO COUNSELING [place] [facility] May 03, 2017 09:34 PM INPT TOBACCO USER GONZALES LORENZ [facility] Sep 18, 2016 01:36 PM FORMER TOBACCO USE <1Y MIN [facility] Aug 10, 2016 03:54 PM INPT TOBACCO USE - PT REFUSED [facility] Aug 01, 2016 06:48 PM INPT TOBACCO COUNSELING ANAID GARCIA [facility] Aug 01, 2016 06:48 PM INPT TOBACCO USER [place] [facility] Feb 08, 2015 09:57 AM CURRENT TOBACCO USER [facility] Nov 29, 2013 10:37 AM CURRENT TOBACCO USER [facility] Nov 26, 2013 11:09 AM PATIENT IS TOBACCO USER ANAID GARCIA [facility] Nov 27, 2012 12:12 PM CURRENT TOBACCO USER [facility] Dec 27, 2011 09:44 AM CURRENT TOBACCO USER [facility] Jan 22, 2011 02:38 PM CURRENT TOBACCO USER [facility] Mar 13, 2010 12:48 PM CURRENT [...] this document. The data comes from all [place] facilities. Date Advance Directives Provider Source Feb 25, 2018 ADVANCE DIRECTIVE ANDREWAURORA PRESTON [facility] Feb 24, 2018 ADVANCE DIRECTIVE DISCUSSION AURORA MORALES [facility] May 26, 2017 CLINICAL WARNING MAGO CONTRERAS [facility] May 03, 2017 CLINICAL WARNING SARIAH ENGLE [facility] Aug 10, 2016 CLINICAL WARNING ISABEL BARCENAS [facility] Aug 02, 2016 CLINICAL WARNING AURORA ALMAZAN [facility] Encounter Notes: All associated encounter notes This section contains the clinical notes associated to the Encounter. Date/Time Encounter Note(s) Provider Source Mar 12, 2022 02:30 PM CARDIOLOGY OUTPATIENT NOTE: EDWARDO SUÁREZ [facility] LOCAL TITLE: CARDIOLOGY CLINIC TECHNOLOGIST NOT E [...] Monitor. Education given to patient along with ZIO Patie nt Instructions Pamphlet and Button Press Log. Date to remove patch: March Instructed to return the monitor by mail along with the log book in the pre- addressed return box and drop into [employer] mailbox. Registered device with [employer]; serial number: [id number]. /mikal/ EDWARDO SUÁREZ Tribal Judge Signed: 03/12/2022 14:30
--- OUTSIDE RECORDS SUMMARY | 2022-10-13 17:23 | XMS_ITS | Encounter Summary ---
:1950 Author Organization [facility] Address [address] [place] [address] Support Name Relationship Address Phone MADELIN MANTILLA Unavailable [address] [phone] [place] [address] MADELIN MANTILLA Unavailable [address] [phone] [place] [address] DHAVAL MANTILLA Unavailable [address] [place] [address] Insurance Providers: All historical and current Section [...] MEDICARE MEDICARE PART Jul 18, PART B [id number] ANNALEE BUSTILLO (WNR) (M) B 2014A [phone] ,REGI MEDICARE MEDICARE PART Apr 17, PART A [id number] ANNALEE BUSTILLO (WNR) (M) A 2012A [id number] ,REGI Selected Encounter This section includes the information on record at [place] for the Encounter. 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 This section includes future appointments and future orders which are active, pending orscheduled.Future Appointments This section includes appointments that were scheduled to occur 6 months from the date of the Encounter, up to a maximum of 20 appointments. The data comes from all [place] treatment facilities. Appointment Date/Time Appointment Type Appointment Facili ty Name Mar 12, 2022 11:00 AM AMBULATORY - MEDICINE [facility] March 19, 2022 06:03 PM AMBULATORY - NONE [facility] April 10, 2022 11:00 AM AMBULATORY - MEDICINE [facility] April 10, 2022 11:30 AM AMBULATORY - MEDICINE [facility] April 12, 2022 08:30 AM AMBULATORY - MEDICINE [facility] May 07, 2022 09:00 AM AMBULATORY - MEDICINE [facility] May 15, 2022 10:30 AM AMBULATORY - MEDICINE [facility] May 15, 2022 10:40 AM AMBULATORY - MEDICINE [facility] May 15, 2022 11:30 AM AMBULATORY - MEDICINE [facility] May 15, 2022 01:00 PM AMBULATORY - MEDICINE [facility] May 15, 2022 01:45 PM AMBULATORY - NONE [facility] Jun 19, 2022 01:15 PM AMBULATORY - NONE [facility] Jun 24, 2022 05:53 PM AMBULATORY - MEDICINE [facility] Jul 15, 2022 02:49 PM AMBULATORY - NONE [facility] Jul 16, 2022 12:20 PM AMBULATORY - NONE [facility] Jul 17, 2022 10:22 PM AMBULATORY - NONE [facility] Jul 19, 2022 07:00 AM AMBULATORY - NONE [facility] Jul 19, 2022 08:00 AM AMBULATORY - MEDICINE [facility] CS Jul 19, 2022 09:00 AM AMBULATORY - MEDICINE [facility] Jul 24, 2022 11:00 AM AMBULATORY - MEDICINE [facility] Lab Results: +/- 30 days of [...] Range Comment Mar 05, 2022 11:47 AM [facility] HEMOGLOBIN A1C Specim en Type: BLOOD No comment enter ed. Ordering Provid er: MARYELLEN LEON Report Released Date/Time: Jun 01, 2021 04:21 PM Reporting Lab: [facility] [address] [facility] [address] Performing Lab: [facility] [address] [facility] [address] HEMOGLOBIN A1C 5.6 4.0-6.0 Mar 05, 2022 11:47 [facility] LIPID PANEL,NON-FASTING S pecimen Type: PLASMA AM No comment enter ed. Ordering Provid er: MARYELLEN LEON Report Released Date/Time: Jun 01, 2021 04:21 PM Reporting Lab: [facility] [address] [facility] [address] Performing Lab: [facility] [address] [facility] [address] CHOLESTEROL 188 <199 .HDL 83 >40 LDL CALCULATION 78 <99 VLDL CALCULATION 27 <29 NON HDL CHOLESTEROL 105 <129 TRIG(NON FASTING) 133 <149 Mar 05, 2022 11:47 [facility] BASIC METABOLIC Specimen Type: PLASMA AM PANEL+MG No comment enter ed. Ordering Provid er: MARYELLEN LEON Report Released Date/Time: Jun 01, 2021 04:21 PM Reporting Lab: [facility] [address] [facility] [address] Performing Lab: [facility] [address] CREATININE 1.0 0.7-1.2 UREA NITROGEN 21 8-26 GLUCOSE 112 H 74-100 SODIUM 139 136-145 POTASSIUM 4.9 3.5-5.1 CHLORIDE 103 98-107 CO2 25 22-29 CALCIUM 9.6 8.4-10.2 MAGNESIUM 1.6 1.6-2.6 ANION GAP 11 5-15 CREAT EGFR(CKD-EPI) 79 >60 Mar 05, 2022 11:47 AM [facility] AST/SGOT Specim en Type: PLASMA No comment enter ed. Ordering Provid er: MARYELLEN LEON Report Released Date/Time: Mar 05, 2022 01:38 PM Reporting Lab: [facility] [address] Performing Lab: [facility] [address] AST/SGOT 21 <34 Mar 05, 2022 11:47 AM [facility] ALT/SGPT Specim en Type: PLASMA No comment enter ed. Ordering Provid er: MARYELLEN LEON Report Released Date/Time: Mar 05, 2022 01:38 PM Reporting Lab: [facility] [address] Performing Lab: [facility] [address] ALT/SGPT 15 <55 Vital Signs: All taken [...] 23 [place] 2021 12:54 /min mm[Hg] IS [place] PM HCS Immunizations: All administered on the encounter date This section contains immunizations associated to the Encounter. Immunization Series Date Issued Reaction Comments COVID-19 ([employer] (PICA)), MRNA, LNP-S, 4 Mar 05, 2022 PFR; [id number]; 05/16/2022 PF, 30 MCG/0.3 ML DOSE, JJ-SUCROSE (AGES 12+ YEARS) Social History: Smoking Status (Most current) and Tobacco Use (All prior to encounter date) This section includes the most current, and the historical, smoking and tobacco-related health factors from the [place] facility where the Encounter took place.Current Smoking Status This section includes the most current smoking, or tobacco-related health factor, from the [place] facility where the Encounter took place. Date/Time Current Smoking Status Comment Facility Mar 05, 2022 01:30 PM VA-TOBACCO FORMER USER [facility] Tobacco Use History This section includes a history of the smoking, or tobacco- related health factors, that were collected on or before the date of the Encounter. The data comes from the [facility] where the Encounter took place. Date/Time Smoking Status/Tobacco Use Comment Facil it Mar 05, 2022 01:30 PM VA-TOBACCO QUIT 1 TO < 5 YRS [facility] Jun 01, 2021 02:00 PM [facility]TOBACCO [facility] Dec 31, 2019 10:54 AM VA-TOBACCO FORMER USER [facility] Dec 31, 2019 10:54 AM VA-TOBACCO QUIT < 1 YEAR M [facility] March 23, 2019 09:53 AM VA-TOBACCO FORMER USER [facility] March 23, 2019 09:53 AM VA-TOBACCO QUIT < 1 [facility]AR [facility] Jun 10, 2018 10:00 AM CURRENT TOBACCO US[place] [facility] May 10, 2018 07:27 PM [place] [facility] May 10, 2018 07:27 PM [place]ACCO [place] [facility] Aug 29, 2017 09:55 AM FORMER TOBACCO USE <1Y [facility] May 26, 2017 10:51 PM [place] [facility] May 26, 2017 10:51 PM INPT TOBACCO US[place] [facility] May 03, 2017 09:34 PM INPT [place] [facility] May 03, 2017 09:34 PM INPT TOBACCO US[place] [facility] Sep 18, 2016 01:36 PM FORMER TOBACCO USE <1Y [facility] Aug 10, 2016 03:54 PM INPT TOBACCO USE - PT REFUSED [facility] Aug 01, 2016 06:48 PM INPT [place] [facility] Aug 01, 2016 06:48 PM INPT [place]BACCO US[place] [facility] Feb 08, 2015 09:57 AM [facility] Nov 29, 2013 10:37 AM CURRENT TOBACCO USER ALWSON JUAREZS [facility] Nov 26, 2013 11:09 AM PATIENT IS TOBACCO USER ANAID GARCIA [facility] Nov 27, 2012 12:12 PM CURRENT TOBACCO USER [facility] KRISTELS [facility] Dec 27, 2011 09:44 AM CURRENT TOBACCO USER LAWSON HUMPHRIESS [facility] Jan 22, 2011 02:38 PM CURRENT TOBACCO USER [facility] KRISTEL[facility] Mar 13, 2010 12:48 PM CURRENT TOBACCO USER [facility] Advance Directives: All historical and current Section Date Range: From patient's date of to the date document was created. This section includes ALL of a patient's completed or amended [place] Advance and Rescinded Directives. The entries below indicate that a directive exists for the patient, but an actual copy is not included with this document. The data comes from all [place] facilities. Date Advance Directives Provider Source Feb [...] Mar 05, 2022 02:35 LETTERS: MARYELLEN LEON [facility] PM LOCAL TITLE: FOLLOW UP RESULTS LETTER STANDARD TITLE: LETTERS DATE OF NOTE: MAR 05, 2022@14:35 ENTRY DATE: MAR 05, 2022@14:36 AUTHOR: MARYELLEN LEON EXP COSIGNER: URGENCY: STATUS: COMPLETED [facility] [address] [place] [address] Feb REGI MANTILLA [address] [facility] [address] Dear : I am writing to inform you of the results of the tests you had done at the [facility]. The tests below were performed and are [...] 02:10 NURSING IMMUNIZATION NOTE: ANDREW BARNES [place] [facility] PM LOCAL TITLE: JUAN WAHL COVID-19 VACCINE ADMINIS CHARY LONG STANDARD TITLE: NURSING IMMUNIZATION NOTE DATE OF NOTE: MAR 05, 2022@14:10 ENTRY DATE: MAR 05, 2022@14:10:16 AUTHOR: ANDREW BARNES EXP COSIGNER: URGENCY: STATUS: COMPLETED The patient was given the VIS for this vaccine w [facility] lists the benefits and side effects of [...] the vaccine. Booster Dose: The patient received [place]udo[place] COVID-19 Vaccine 0. 3 ml IM. Series: Series 4 MVX (Manuf); Lot#; Exp Date: PFR; [id number]; 05/16 Administration Anatomic site: Right Deltoid Vaccine administered without complications. The patient was advised to remain in the facility for 15 minute s post vaccination. The patient was given a completed COVID-19 vacc ination record card, a copy of the [place] Side Effects and Adverse Event s Reporting Fact Sheet and instructed on how to report any adver se reactions. /mikal/ ANDREW BARNES LPN [facility] CENTER SUPERVISOR Signed: 03/05/2022 14:10 Mar 05, 2022 01:20 INTERNAL MEDICINE NOTE: MARYELLEN LEON [facility] PM LOCAL TITLE: MEDICINE CLINIC NOTE STANDARD TITLE: [...] discharge; patient elected to follow-up at the [facility] since he is known to cardiology there. [...] note. 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 Currently not [...] superior branch of the OM1 similar to [facility] on 08/02/16. The risk of intervention on [...] 112.1 PF L/SEC 5.831 5.990 102.7 2.86 [id number] L/SEC 2.660 1.580 59.4 0.99 FEV1/FVC % [...] mask provider wears surgical mask and faceshield. Annem Arie ves are used when examining patient Vitals: [...] metoprolol 50mg bid - will order extended snuff grinder and screener x 7 days, and card consult for [...] completed shingrix 2 dose series 03/23/19, COVID-19 ([employer] (PICA)), MRNA, LNP-S, P* 3rd - PSA ok [...] and I noted new medication on pa gurwinderant's copy of the medication list. ( ) [...] effects of the medication. /Caregiver verbalizes understanding. Follow-up Pos Alcohol : Patient's [...] 03/20/2022 ADDENDUM STATUS: COMPLETED admitted 03/18/22 at [facility] for Vomitting , diarrhea felt to [...] 05, 2022 12:56 INTERNAL MEDICINE OUTPATIENT NOTE: [facility]IA [facility]ELL[facility] LOCAL TITLE: MEDICINE CLINIC NURSING NOTE OM [...] ulcers, or a wound from a medical support specialist or Patient is bed-confined or a wheelchair-user or Patient requires assistance to transfer/change position No, Skin Screen is Negative Home Abuse/Violence Screen Is your home free of abuse and violence? Yes Outpatient Nutrition Screen Body Mass Index (BMI)= 22.7 [place]: Collection DT Specimen Test Name Result Units R ef Range 03/05/2022 11:47 BLOOD HEMOGLOBIN A1C 5.6 % 4.0 - 6.0 [place] Hgb A1C: No data available [place] Hgb A1C: No data available Point of Care Hgb A1C: POC HGB A1C____ Is patient's BMI less than 18.5? No Does patient have swallowing, coughing, or chew ing problems affecting oral intake? No Has patient experienced unplanned weight loss o r gain greater than 10 pounds over the [...] Not worried about housing near future The reports the following: Within the past 12 months, you worried whether your food would run out before you got money to buy more. Never true Within the past 12 months, the food you bought just didn't last and you didn't have money to get more. Never true /es/ KARAN CAIN LPN LPN Signed: 03/05/2022 13:00
--- OUTSIDE RECORDS SUMMARY | 2022-10-13 17:24 | XMS_ITS | Encounter Summary ---
:1950 Author Organization [facility] Address [address] [place] [address] Support Name Relationship Address Phone MADELIN MANTILLA Unavailable [address] [phone] [place] [address] MADELIN MANTILLA Unavailable [address] [phone] [place] [address] DHAVAL MANTILLA Unavailable [address] [place] [address] Insurance Providers: All historical and current Section [...] MEDICARE MEDICARE PART Jul 18, PART B [id number] 800 ANNALEE BRYANIENT (WNR) (M) B 2014A [phone] ,REGI MEDICARE MEDICARE PART Apr 17, PART A [id number] 800 ANNALEE Cardenas ATIENT (WNR) (M) A [phone] ,REGI Selected Encounter This section includes the [...] activities for the patient from all [place] [facility]. This section includes future appointments and future orders which are active, pending orscheduled.Future Appointments This section includes appointments that were scheduled to occur 6 months from the date of the Encounter, up to a maximum of 20 appointments. The data comes from all [place] treatment [facility]. Appointment Date/Time Appointment Type Appointment Facili ty Name April 12, 2022 08:30 AM AMBULATORY - MEDICINE [facility] May 07, 2022 09:00 AM AMBULATORY - MEDICINE [facility] May 15, 2022 10:30 AM AMBULATORY - MEDICINE [facility] May 15, 2022 10:40 AM AMBULATORY - MEDICINE [facility] May 15, 2022 11:30 AM AMBULATORY - MEDICINE [facility] May 15, 2022 01:00 PM AMBULATORY - MEDICINE [facility] May 15, 2022 01:45 PM AMBULATORY - NONE [facility] Jun 19, 2022 01:15 PM AMBULATORY - NONE [facility] Jun 24, 2022 05:53 PM AMBULATORY - MEDICINE [facility] Jul 15, 2022 02:49 PM AMBULATORY - NONE [facility] Jul 16, 2022 12:20 PM AMBULATORY - NONE [facility] Jul 17, 2022 10:22 PM AMBULATORY - NONE [facility] Jul 19, 2022 07:00 AM AMBULATORY - NONE [facility] Jul 19, 2022 08:00 AM AMBULATORY - MEDICINE [facility] Jul 19, 2022 09:00 AM AMBULATORY - MEDICINE [facility] Jul 24, 2022 11:00 AM AMBULATORY - MEDICINE [facility] Jul 25, 2022 09:00 AM AMBULATORY - NONE [facility] Jul 25, 2022 10:30 AM AMBULATORY - NONE [facility] Jul 25, 2022 11:00 AM AMBULATORY - SURGERY [facility] Jul 25, 2022 12:30 PM AMBULATORY - NONE [facility] Active, Pending, and Scheduled [...] The data comes from all [place] treatment [facility]. Test Date/Time Test Type Test Details Facility Name May 15, 2022 12:00 Laboratory - COVID-19 AND FLU/RSV DIAG [facility] AM Chemistry Order PANEL(CEPHEID) NASOPHARYNGEAL [...] [place] 2021 10:58 /min mm[Hg] lb IS [facility] Social History: Smoking Status (Most current) [...] 2022 01:30 PM VA-TOBACCO FORMER USER [facility] Tobacco Use History This section includes a history of the smoking, or tobacco- related health factors, that were collected on or before the date of the Encounter. The data comes from the [place] facility where the Encounter took place. Date/Time Smoking Status/Tobacco Use Comment Facil it Mar 05, 2022 01:30 PM VA-TOBACCO QUIT 1 TO < 5 YRS [facility] Jun 01, 2021 02:00 PM [facility]TOBACCO [facility] Dec 31, 2019 10:54 AM VA-TOBACCO FORMER USER [facility] Dec 31, 2019 10:54 AM VA-TOBACCO QUIT < 1 YEAR [facility] March 23, 2019 09:53 AM VA-TOBACCO FORMER USER [facility] March 23, 2019 09:53 AM VA-TOBACCO QUIT < 1 YEAR [place] [facility] Jun 10, 2018 10:00 AM CURRENT TOBACCO USER [place] [facility] May 10, 2018 07:27 PM [place] [facility] May 10, 2018 07:27 PM INPT TOBACCO US[place] [facility] Aug 29, 2017 09:55 AM FORMER TOBACCO USE <1Y [place] [facility] May 26, 2017 10:51 PM IN[place] [facility] May 26, 2017 10:51 PM INPT TOBACCO USER [place] [facility] May 03, 2017 09:34 PM INPT TOBACCO COUNSELING [place] [facility] May 03, 2017 09:34 PM INPT TOBACCO USER GONZALES LORENZ [facility] Sep 18, 2016 01:36 PM FORMER TOBACCO USE <1Y [facility] Aug 10, 2016 03:54 PM INPT TOBACCO USE - PT REFUSED [facility] Aug 01, 2016 06:48 PM [facility] Aug 01, 2016 06:48 PM INPT TOBACCO USER [facility] Feb 08, 2015 09:57 AM [facility] Nov 29, 2013 10:37 AM CURRENT [facility] Nov 26, 2013 11:09 AM PATIENT IS [facility]BACCO [facility] Nov 27, 2012 12:12 PM CUR[facility] Dec 27, 2011 09:44 AM CURRENT [facility]AC[facility] Jan 22, 2011 02:38 PM CURRENT TOBACCO USER [facility] Mar 13, 2010 12:48 PM CURRENT TOBACCO USER [facility] Advance Directives: All historical and current Section [...] WARNING [facility] Pathology Reports: +/- 30 days of the [...] PM LR SURGICAL PATHOLOGY REPORT: SARAH MEDEL [facility] LOCAL TITLE: LR SURGICAL PATHOLOGY REPORT STANDARD TITLE: PATHOLOGY REPORT DATE OF NOTE: MAY 08, 2022@18:46:34 ENTRY DATE: MAY 08, 2022@18:46:34 AUTHOR: SARAH MEDEL EXP COSIGNER: URGENCY: STATUS: COMPLETED $APHDR Reporting Lab: [facility] [CLIA# [id number]] [place] [address] - - - - - - - [...] Performing Laboratory: Surgical Pathology Report Performed By: [facility] [CLIA# [id number]] [place] [address] $FTR - - - - - - [...] - - REGI MANTILLA STANDARD FORM 515 ID:[id number] SEX:M :1950 AGE: 72 LOC: 1153 PCP: Preet Anderson MD /mikal/ SARAH MEDEL MD STAFF PATHOLOGIST, PATHOLOGY & LABORATORY MED SV C Signed: 05/08/2022 18:46
--- OUTSIDE RECORDS SUMMARY | 2022-10-13 17:24 | XMS_ITS | Encounter Summary ---
:1950 Author Organization [facility] Address [address] [place] [address] Support Name Relationship Address Phone MADELIN MANTILLA Unavailable [address] [phone] [place] [address] MADELIN MANTILLA Unavailable [address] [phone] [place] [address] DHAVAL MANTILLA Unavailable [address] [place] [address] Insurance Providers: All historical and current Section [...] MEDICARE MEDICARE PART Jul 18, PART B [id number] ANNALEE BUSTILLO (WNR) (M) B 2014 24A [phone] ,REGI MEDICARE MEDICARE PART Apr 17, PART A [id number] ANNALEE BUSTILLO (WNR) (M) A 2012A [phone] ,REGI Selected Encounter This section includes the information on record at [place] for the Encounter. Date/Time Encounter Type Encounter Reason Provider Source Description March 19, 2022 06:03 Outpatient ADMIN BAKARI DICKEY PM Encounter (MASNONCT) IHE Encounter Template Text not used by [place] Plan of Treatment: Future Appointments (+ 6 [...] 10, 2022 11:00 AM AMBULATORY - MEDICINE [facility] April 10, 2022 11:30 AM AMBULATORY - MEDICINE [facility] April 12, 2022 08:30 AM AMBULATORY - MEDICINE [facility] May 07, 2022 09:00 AM AMBULATORY - MEDICINE [facility] May 15, 2022 10:30 AM AMBULATORY - MEDICINE [facility] May 15, 2022 10:40 AM AMBULATORY - MEDICINE [facility] May 15, 2022 11:30 AM AMBULATORY - MEDICINE [facility] May 15, 2022 01:00 PM AMBULATORY - MEDICINE [facility] May 15, 2022 01:45 PM AMBULATORY - NONE [facility] Jun 19, 2022 01:15 PM AMBULATORY - NONE [facility] Jun 24, 2022 05:53 PM AMBULATORY - MEDICINE [facility] Jul 15, 2022 02:49 PM AMBULATORY - NONE [facility] Jul 16, 2022 12:20 PM AMBULATORY - NONE [facility] Jul 17, 2022 10:22 PM AMBULATORY - NONE [facility] Jul 19, 2022 07:00 AM AMBULATORY - NONE [facility] Jul 19, 2022 08:00 AM AMBULATORY - MEDICINE [facility] Jul 19, 2022 09:00 AM AMBULATORY - MEDICINE [facility] Jul 24, 2022 11:00 AM AMBULATORY - MEDICINE [facility] Jul 25, 2022 09:00 AM AMBULATORY - NONE [facility] Jul 25, 2022 10:30 AM AMBULATORY - NONE [facility] Lab Results: +/- 30 days [...] Range Comment Mar 05, 2022 11:47 AM [facility] HEMOGLOBIN A1C Specim en Type: BLOOD No comment enter ed. Ordering Provid er: MARYELLEN LEON Report Released Date/Time: Jun 01, 2021 04:21 PM Reporting Lab: [facility] [place] [employer] [address] Performing Lab: [facility] [employer] [employer] [address] HEMOGLOBIN A1C 5.6 4.0-6.0 Mar 05, 2022 11:47 [facility] BASIC METABOLIC Specimen Type: PLASMA AM PANEL+MG No comment enter ed. Ordering Provid er: MARYELLEN LEON Report Released Date/Time: Jun 01, 2021 04:21 PM Reporting Lab: [facility] [address] [place] [employer] [address] Performing Lab: [facility] [address] [place] [employer] [address] CREATININE 1.0 0.7-1.2 UREA NITROGEN 21 8-26 GLUCOSE 112 H 74-100 SODIUM 139 136-145 POTASSIUM 4.9 3.5-5.1 CHLORIDE 103 98-107 CO2 25 22-29 CALCIUM 9.6 8.4-10.2 MAGNESIUM 1.6 1.6-2.6 ANION GAP 11 5-15 CREAT EGFR(CKD-EPI) 79 >60 Mar 05, 2022 11:47 [facility] LIPID PANEL,NON-FASTING S pecimen Type: PLASMA AM No comment enter ed. Ordering Provid er: MARYELLEN LEON Report Released Date/Time: Jun 01, 2021 04:21 PM Reporting Lab: [facility] [address] [place] [employer] [address] Performing Lab: [facility] [address] [facility] [address] CHOLESTEROL 188 <199 .HDL 83 >40 LDL CALCULATION 78 <99 VLDL CALCULATION 27 <29 NON HDL CHOLESTEROL 105 <129 TRIG(NON FASTING) 133 <149 Mar 05, 2022 11:47 AM [facility] AST/SGOT Specim en Type: PLASMA No comment enter ed. Ordering Provid er: MARYELLEN LEON Report Released Date/Time: Mar 05, 2022 01:38 PM Reporting Lab: [facility] [address] [place] [employer] [address] Performing Lab: [facility] [address] [facility] [address] AST/SGOT 21 <34 Mar 05, 2022 11:47 AM [facility] ALT/SGPT Specim en Type: PLASMA No comment enter ed. Ordering Provid er: MARYELLEN LEON Report Released Date/Time: Mar 05, 2022 01:38 PM Reporting Lab: [facility] [address] [facility] [address] Performing Lab: [facility] [address] [facility] [address] ALT/SGPT 15 <55 Social History: Smoking Status [...] 2021 02:00 PM [facility] Dec 31, 2019 10:54 AM VA-TOBACCO FORMER USER [facility] Dec 31, 2019 10:54 AM [facility] March 23, 2019 09:53 AM VA-TOBACCO FORMER USER [facility] March 23, 2019 09:53 AM [facility] QUIT < [facility] Jun 10, 2018 10:00 AM CURRENT [place]ACCO [place] [facility] May 10, 2018 07:27 PM [place] [facility] May 10, 2018 07:27 PM [place] [facility] Aug 29, 2017 09:55 AM FORMER TOBACCO USE <1Y [facility] May 26, 2017 10:51 PM [place] COUN[place] [facility] May 26, 2017 10:51 PM [place] [facility] May 03, 2017 09:34 PM [place] COUNSELING [place] [facility] May 03, 2017 09:34 PM [place] [facility] Sep 18, 2016 01:36 PM FORMER TOBACCO USE <1Y [facility] Aug 10, 2016 03:54 PM INPT TOBACCO USE - PT REFUSED [facility] Aug 01, 2016 06:48 PM [facility] Aug 01, 2016 06:48 PM INPT TOBACCO USER GONZALES LORENZ [facility] Feb 08, 2015 09:57 AM CURRENT TOBACCO USER [place] ADAME [facility] Nov 29, 2013 10:37 AM CURRENT TOBACCO USER [place] JUAREZS [facility] Nov 26, 2013 11:09 AM PATIENT IS TOBACCO USER ANAID GARCIA [facility] Nov 27, 2012 12:12 PM CURRENT TOBACCO USER [place] AD[place] [facility] Dec 27, 2011 09:44 AM CURRENT TOBACCO USER [place] JUAREZS [facility] Jan 22, 2011 02:38 PM CURRENT TOBACCO USER [place] JUAREZS [facility] Mar 13, 2010 12:48 PM [facility] Advance Directives: All historical and current [...] 18, 2022 06:03 PM NONVA NOTE: VAZQUEZ DAVIS LEXI [facility] LOCAL TITLE: COMMUNITY CARE-ELZBIETA SELF PRESENTIN G CARE COORD PLAN N STANDARD TITLE: NONVA NOTE DATE OF NOTE: MARCH 18, 2022@18:03 ENTRY DATE: MARCH 19, 2022@18:03:22 AUTHOR: VAZQUEZ DAVIS EXP COSIGNER: URGENCY: STATUS: COMPLETED COMMUNITY CARE-ELZBIETA SELF PRESENTING CARE CO ORD PLAN NOTE Has ADDENDA Emergency Notification Intake Date Presenting to the Facility: March Method of Contact: Notified from Angella Joy worklist Notification ID: [id number] [facility] Referral [facility]: [facility] Name: Hospital: [facility] Address: City: [place] State: [place] Zip Code: Phone : Community Facility Point of Contact: Name: Anna Canas Chief complaint: vomiting/diarrhea Primary Diagnosis: Disposition Unknown at time of intake note entry 03/19/2022 5:59:18 PM CDT JACKIE BAH APPROVED 1703 SENT EMAIL 03/19/2022 5:58:30 PM CDT JACKIE TEMPLEAM COMPLETED NOTIFICATION [facility]IFIED [facility] P&T ENROLLED /es/ VAZQUEZ DAVIS CRISIS NURSE Signed: 03/19/2022 18:04 Receipt Acknowledged By: 03/20/2022 17:47 /abbie CHASE RN Utilization Management 03/20/2022 ADDENDUM STATUS: COMPLETED Faxed for records. /babie CHASE RN Utilization Management Signed: 03/20/2022 17:50 Receipt Acknowledged By: 03/21/2022 12:25 /mikal/ RACHAEL WILD, RN REGISTERED NURSE for HERI BRAUN 05/01/2022 ADDENDUM STATUS: COMPLETED DC Elsa 03/18 to 03/19/22 dx dehydration dc to home HIMS received and imported ER and DC summary, se e NONVA notes in CPRS or JLV documents /abbie CHASE RN Utilization Management Signed: 05/01/2022 15:57 Receipt Acknowledged By: 05/01/2022 16:03 /es/ MARYELLEN LEON MD Staff Physician * AWAITING SIGNATURE * HERI BRAUN
--- OUTSIDE RECORDS SUMMARY | 2022-10-13 17:25 | XMS_ITS | Encounter Summary ---
:1950 Author Organization [facility] Address [address] [place] [address] Support Name Relationship Address Phone MADELIN MANTILLA Unavailable [address] [phone] [place] [address] MADELIN MANTILLA Unavailable [address] [phone] [place] [address] DHAVAL MANTILLA Unavailable [address] [place] [address] Insurance Providers: All historical and current Section [...] MEDICARE MEDICARE PART Jul 18, PART B [id number] ANNALEE BUSTILLO (WNR) (M) B 2014A [phone] ,REGI MEDICARE MEDICARE PART Apr 17, PART A [id number] ANNALEE BUSTILLO (WNR) (M) A 2012A [id number] ,HOPE Selected Encounter This section includes the information on record at [place] for the Encounter. Date/Time Encounter Type Encounter Reason Provider Source Description April 12, 2022 OFFICE O/P EST PRIMARY ICD-10-CM I48.0 PREET LEON 08:30 AM SF 10-19 MIN CARE/MEDICINE Paroxysmal atrial fibrillation with Provider Comments: Paroxysmal atrial fibrillation ([facility] [[email or web address] [id number]) IHE Encounter Template Text not used by [place] Assessments - Encounter Diagnoses This section includes the primary and secondary diagnoses documented for the Encounter. Date/Time Primary/Secondary Diagnosis Name Provider Source Diagnosis April 12, 2022 PRIMARY Paroxysmal atrial [place] 09[place] [place] fibrillation [facility] April 12, 2022 SECONDARY Alcohol abuse with [place] 09:[place] unspecified [facility] alcohol-induced disorder April 12, 2022 SECONDARY Athscl heart PREET LEON [place] 09:21 AM disease of [place] H[facility] coronary artery w/o ang pctrs April 12, 2022 SECONDARY Essential PREET LEON [place] 09:21 AM (primary) HCS hypertension April 12, 2022 SECONDARY Gastro-esophageal [place] LE[place] 09:[place] AM reflux disease [facility] without esophagitis Plan of Treatment: Future Appointments (+ 6 months) and Future Tests (+/- 45 days) The Plan of Treatment section includes future care activities for the patient from all [place] [facility]. This section includes future appointments and [...] 15, 2022 01:45 PM AMBULATORY - NONE [facility] Jun 19, 2022 01:15 PM AMBULATORY - NONE [facility] Jun 24, 2022 05:53 PM AMBULATORY - MEDICINE [facility] Jul 15, 2022 02:49 PM AMBULATORY - NONE [facility] Jul 16, 2022 12:20 PM AMBULATORY - NONE [facility] Jul 17, 2022 10:22 PM AMBULATORY - NONE [facility] Jul 19, 2022 07:00 AM AMBULATORY - NONE [facility] Jul 19, 2022 08:00 AM AMBULATORY - MEDICINE [facility] Jul 19, 2022 09:00 AM AMBULATORY - MEDICINE [facility] Jul 24, 2022 11:00 AM AMBULATORY - MEDICINE [facility] Jul 25, 2022 09:00 AM AMBULATORY - NONE [facility] Jul 25, 2022 10:30 AM AMBULATORY - NONE [facility] Jul 25, 2022 11:00 AM AMBULATORY - SURGERY [facility] Jul 25, 2022 12:30 PM AMBULATORY - NONE [facility] Aug 05, 2022 11:00 AM AMBULATORY - NONE [facility] Active, Pending, and Scheduled Orders This section includes a listing of several types of active, pending, and scheduled orders, including clinic medications orders, diagnostic test orders, procedure orders and consult orders; where the start date of the order is 45 days before the date of the Encounter or 45 days after the date of the Encounter. The data comes from all [place] treatment facilities. Test Date/Time Test Type Test [...] 22 [place] 2021 08:13 /min mm[Hg] lb IS [facility] Social History: Smoking [...] VA-TOBACCO QUIT 1 TO < 5 YRS [facility] Jun 01, 2021 02:00 PM [facility]ACCO [facility] USED [facility] Dec 31, 2019 10:54 AM VA-TOBACCO FORMER USER [facility] Dec 31, 2019 10:54 AM [place]-TO[place]ACCO QUIT < [address] [facility] March 23, 2019 09:53 AM VA-TOBACCO FORMER USER [facility] March 23, 2019 09:53 AM VA-TOBACCO QUIT < [address] [place] [facility] Jun 10, 2018 10:00 AM CURRENT TOBACCO USER [facility] [facility] May 10, 2018 07:27 PM [place]PT [place] [facility] May 10, 2018 07:27 PM INPT TOBACCO USER [facility] Aug 29, 2017 09:55 AM FORMER TOBACCO USE <1Y MIN [facility] May 26, 2017 10:51 PM [place]PT [place] [facility] May 26, 2017 10:51 PM INPT TOBACCO USER [facility] May 03, 2017 09:34 PM INPT [place]BACCO [place] [facility] May 03, 2017 09:34 PM INPT TOBACCO USER [facility] Sep 18, 2016 01:36 PM FORMER TOBACCO USE <1Y [facility] Aug 10, 2016 03:54 PM INPT TOBACCO USE - PT REFUSED [facility] Aug 01, 2016 06:48 PM [facility]PT [facility]ACCO [facility] [place] [facility] Aug 01, 2016 06:48 PM INPT TOBACCO USER [facility]AP[facility] Feb 08, 2015 09:57 AM CURRENT TOBACCO USER [facility] Nov 29, 2013 10:37 AM [facility] Nov 26, 2013 11:09 AM PATIENT IS TOBACCO USER [place] [facility] Nov 27, 2012 12:12 PM CURRENT TOBACCO USER [facility] Dec 27, 2011 09:44 AM CURRENT TOBACCO USER [facility] Jan 22, 2011 02:38 PM CUR[facility]AC[facility] Mar 13, 2010 12:48 PM CUR[facility]AC[facility] Advance Directives: All historical [...] Feb 25, 2018 ADVANCE DIRECTIVE AURORA MORALES [facility] Feb 24, 2018 ADVANCE DIRECTIVE DISCUSSION AURORA MORALES [facility] May 26, 2017 CLINICAL WARNING MAGO CONTRERAS [facility] May 03, 2017 CLINICAL WARNING SARIAH ENGLE [facility] Aug 10, 2016 CLINICAL WARNING ISABEL BARCENAS [facility] Aug 02, 2016 CLINICAL WARNING ALMAZAN,AURORA Carla [facility] Pathology Reports: +/- 30 days of [...] the Encounter. The data comes from all [facility] facilities. Date/Time Pathology Report Provider Source May 08, 2022 06:46 PM LR SURGICAL PATHOLOGY REPORT: SARAH MEDEL [facility] LOCAL TITLE: LR SURGICAL PATHOLOGY REPORT STANDARD TITLE: PATHOLOGY REPORT DATE OF NOTE: MAY 08, 2022@18:46:34 ENTRY DATE: MAY 08, 2022@18:46:34 AUTHOR: SARAH MEDEL EXP COSIGNER: URGENCY: STATUS: COMPLETED $APHDR Reporting Lab: [facility] [CLIA# [id number]] [place] [address] - - - - - - - [...] Performing Laboratory: Surgical Pathology Report Performed By: [facility] [CLIA# [id number]] [place] [address] $FTR - - - - - - - - - - - - - - - - - - - - - - - - - - - - - - - - - - - - - - - - (End of report) SARAH MEDEL MD [facility] Date May 08, 2022 - - - - - - - - - - - - - - - - - - - - - - - - - - - - - - - - - - - - - - - - REGI MANTILLA STANDARD FORM 515 ID:[id number] SEX:M :1950 AGE: 72 LOC: 1153 PCP: Preet Leon MD /mikal/ SARAH MEDEL MD STAFF PATHOLOGIST, PATHOLOGY & LABORATORY MED SV C Signed: 05/08/2022 18:46 Encounter Notes: All associated encounter notes This section contains the clinical notes associated to the Encounter. Date/Time Encounter Note(s) Provider Source April 12, 2022 08:51 INTERNAL MEDICINE NOTE: PREET LEON [facility] LOCAL TITLE: MEDICINE CLINIC NOTE STANDARD TITLE: INTERNAL MEDICINE NOTE DATE OF NOTE: APRIL 12, 2022@08:51 ENTRY DATE: APRIL 12, 2022@08:51:22 AUTHOR: LEONPREET Porter EXP COSIGNER: URGENCY: STATUS: COMPLETED MEDICINE CLINIC NOTE Has ADDENDA Nurses notes reviewed and agree. This note is an edited version based on my previ ous clinic visit notes and/or based on review of CPRS recor ds. Chief complaint: hosp d/c f/u. 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 Currently not [...] superior branch of the OM1 similar to [facility] on 08/02/16--medically managed - s/p NSTEMI, hospitalized [...] 112.1 PF L/SEC 5.831 5.990 102.7 2.86 [id number] L/SEC 2.660 1.580 59.4 0.99 FEV1/FVC % [...] tachycardia, then had Ziopatch 03/2022, [facility], confirmed paroxsymal AFIB - had [...] ISOSORBIDE MONONITRATE 60MG SA TAB TAKE ONE-H FPC DISCONTINUED TABLET BY MOUTH EVERY DAY 9) ISOSORBIDE MONONITRATE 60MG SA TAB TAKE ONE T ABLET BY DISCONTINUED MOUTH EVERY DAY FOR CHEST PAIN 10) MAGNESIUM CITRATE LIQUID TAKE 1 BOTTLE BY [facility] ONCE AT 12PM (NOON) ONE DAY BEFORE [...] completed shingrix 2 dose series 03/23/19, COVID-19 (Fittr), MRNA, LNP-S, P* 3rd 1 - PSA ok 01/11/14 - TSH ok 05/2021 - AAA screening: U/S NEG 01/2014 - Hepatitis: Hep B immune 07/2020 - lung cancer screening: neg OS chest CT 05/2021 Tobacco: () Pt smokes [...] Change/New: I have noted this on the [facility] t's copy of the medication list. Education on [...] satisfaction with the treatment pl an. (x) Tolar/Caregiver indicates readiness to dirk rn and has been instructed on action, dose, frequency, and side effects of the medication. /Caregiver verbalizes understanding. /mikal/ PREET LEON MD Staff Physician Signed: 04/12/2022 09:21 07/23/2022 ADDENDUM STATUS: COMPLETED received from [facility] ED note, Hand P, n o discharge summary, RN will call again for discharge summary - SOB, seen at [facility] 07/16/2022. hypoxic o2 80s, placed on 2L oxygen 07/16/22 - WBC 10.54, Hb 9.9, plt 287 - Na 141, k 4.1, cr 1.1, ca 8.8, t bili 0.3, AST 18, ALT 16, ALP 78 - troponin I <0.01 - NT pro BNP 2030 (0-125)--> 1370 on 07/17/22 covid-19 Negative D dimer 0.9 (0-0.5) 07/17/22 - pro calcitonin 0.06 - A1c 5.31 - Fe 33, TIBC 335, Fe sat 10, - CPR 0.6 CXR: mild nonspecific left basilar opacities may represent atelectasis or pneumonia. 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 Dxed with COPD exacerbation and mild CHF. [facility] ed /mikal/ PREET LEON MD Staff Physician Signed: 07/23/2022 15:26 April 12, 2022 08:15 INTERNAL MEDICINE OUTPATIENT NOTE: Chelita PÉREZ [facility] LOCAL TITLE: MEDICINE CLINIC NURSING NOTE STANDARD [...] 12, 2022 08:04 ADVANCE DIRECTIVE: LUIGI RIVERA [facility] TITLE: AD NOTIFICATION AND SCREENING STANDARD TITLE: ADVANCE DIRECTIVE DATE OF NOTE: APRIL 12, 2022@08:04 ENTRY DATE: APRIL 12, 2022@08:04:37 AUTHOR: LUIGI RIVERA EXP COSIGNER: URGENCY: STATUS: COMPLETED ADVANCE DIRECTIVE NOTIFICATION: Patient was given written notification of the [facility] rights: 1. Accept or refuse any medical treatment. 2. Complete a durable power of tax attorney for [facility] care. 3. Complete a living will. ADVANCE DIRECTIVE SCREENING: Does patient have an Advance Directive? The patient has an Advance Directive. Does the patient wish to make any changes or re voke their current Advance Directive? No changes requested at this time. /mikal/ LUIGI RIVERA [employer]VANCED RESTAURANT EXPEDITOR Signed: 04/12/2022 08:05
--- OUTSIDE RECORDS SUMMARY | 2022-10-13 17:25 | XMS_ITS | Encounter Summary ---
:1950 Author Organization Department [facility] Address [address] [place] [address] Support Name Relationship Address Phone MADELIN MANTILLA Unavailable [address] [phone] [place] [address] MADELIN MANTILLA Unavailable [address] [phone] [place] [address] DHAVAL MANTILLA Unavailable [address] [place] [address] Insurance Providers: All historical and current Section [...] MEDICARE MEDICARE PART Jul 18, PART B [id number] ANNALEE BRYANIENT (WNR) (M) B 2014A [phone] ,REGI MEDICARE MEDICARE PART Apr 17, PART A [id number] ANNALEE Cardenas ATIENT (WNR) (M) A [phone] ,REGI Selected Encounter This section includes the information on record at AR for the Encounter. Date/Time Encounter Type Encounter Reason Provider Source Description April 10, 2022 OFFICE CARDIOLOGY ICD-10-CM I47.1 JESSICA FAITH 11:30 AM CONSULTATION Supraventricular E L tachycardia with Provider Comments: Multifocal atrial tachycardia ([facility] [id number]) IHE Encounter Template Text not used by AR Assessments - Encounter Diagnoses This section includes the primary and secondary diagnoses documented for the Encounter. Date/Time Primary/Secondary Diagnosis Name Provider Source Diagnosis April 11, 2022 PRIMARY Supraventricular ROSY FAITH S [facility] 12:00 PM tachycardia [facility] April 11, 2022 SECONDARY Alcohol abuse with ROSY FAITHO LIS [facility] 12:00 PM unspecified L [facility] alcohol-induced disorder April 11, 2022 SECONDARY Athscl heart disease MARCELL,ROSYSURI TURNER POLIS [place] 12:00 PM of [place] coronary L [facility] artery w/o ang pctrs April 11, 2022 SECONDARY Cannabis use, MARCELLROSYSURI COHEN V A 12:00 PM unspecified, L HCS uncomplicated April 11, 2022 SECONDARY Gastro-esophageal MARCELLROSY IS [place] 12:00 PM reflux disease L [facility] without esophagitis April 11, 2022 SECONDARY FPC (current) MARCELLROSY CAROLYN OLIS [place] 12:00 PM use of anticoagulants L [facility] April 11, 2022 SECONDARY Paroxysmal atrial MARCELLROSY MOSER IS [place] 12:00 PM fibrillation L [facility] Plan of Treatment: Future Appointments (+ 6 months) and Future Tests (+/- 45 days) The Plan of Treatment section includes future care activities for the patient from all [facility] treatmentfaon [facility]. This section includes future appointments and future orders which are active, pending orscheduled.Future Appointments This section includes appointments that were scheduled to occur 6 months from the date of the Encounter, up to a maximum of 20 appointments. The data comes from all AR treatment facilities. Appointment Date/Time Appointment Type Appointment Facili ty Name April 12, 2022 08:30 AM AMBULATORY - MEDICINE [facility] May 07, 2022 09:00 AM AMBULATORY - MEDICINE [facility] May 15, 2022 10:30 AM AMBULATORY - MEDICINE [facility] May 15, 2022 10:40 AM AMBULATORY - MEDICINE [facility] May 15, 2022 11:30 AM AMBULATORY - MEDICINE [facility] May 15, 2022 01:00 PM AMBULATORY - MEDICINE [facility] May 15, 2022 01:45 PM AMBULATORY - NONE [facility] Jun 19, 2022 01:15 PM AMBULATORY - NONE [facility] Jun 24, 2022 05:53 PM AMBULATORY - MEDICINE [facility] Jul 15, 2022 02:49 PM AMBULATORY - NONE [facility] Jul 16, 2022 12:20 PM AMBULATORY - NONE [facility] Jul 17, 2022 10:22 PM AMBULATORY - NONE [facility] Jul 19, 2022 07:00 AM AMBULATORY - NONE [facility] Jul 19, 2022 08:00 AM AMBULATORY - MEDICINE [facility] Jul 19, 2022 09:00 AM AMBULATORY - MEDICINE [facility] Jul 24, 2022 11:00 AM AMBULATORY - MEDICINE [facility] Jul 25, 2022 09:00 AM AMBULATORY - NONE [facility] Jul 25, 2022 10:30 AM AMBULATORY - NONE [facility] Jul 25, 2022 11:00 AM AMBULATORY - SURGERY [facility] Jul 25, 2022 12:30 PM AMBULATORY - NONE [facility] Active, Pending, and Scheduled [...] the Encounter. The data comes from all AR treatment facilities. Test Date/Time Test Type Test Details Facility Name May 15, 2022 12:00 Laboratory - COVID-19 AND FLU/RSV DIAG [facility] Chemistry Order PANEL(CEPHEID) NASOPHARYNGEAL SWAB STAT [...] 22 [place] 2021 10:58 /min mm[Hg] lb [facility] Social History: Smoking Status (Most current) [...] 05, 2022 01:30 PM VA-TOBACCO FORMER USER [facility] Tobacco Use History This section includes a history of the smoking, or tobacco- related health factors, that were collected on or before the date of the Encounter. The data comes from the AR facility where the Encounter took place. Date/Time Smoking Status/Tobacco Use Comment Katherine tapia Mar 05, 2022 01:30 PM AR-TOBACCO QUIT 1 TO < 5 YRS [facility] Jun 01, 2021 02:00 PM VA-TOBACCO NEVER USED [facility] Dec 31, 2019 10:54 AM VA-TOBACCO FORMER USER [facility] Dec 31, 2019 10:54 AM VA-TOBACCO QUIT < 1 YEAR [place] [facility] March 23, 2019 09:53 AM VA-TOBACCO FORMER USER [facility] March 23, 2019 09:53 AM VA-TOBACCO QUIT < 1 YEAR [place] [facility] Jun 10, 2018 10:00 AM CURRENT TOBACCO USER [place] [facility] May 10, 2018 07:27 PM IN[place] [facility] May 10, 2018 07:27 PM INPT TOBACCO USER [place] [facility] Aug 29, 2017 09:55 AM FORMER TOBACCO USE <1Y [facility] May 26, 2017 10:51 PM INPT TOBACCO COUNSELING [place] [facility] May 26, 2017 10:51 PM INPT TOBACCO USER [place] [facility] May 03, 2017 09:34 PM INPT TOBACCO COUNSELING [place] [facility] May 03, 2017 09:34 PM INPT TOBACCO USER [place] [facility] Sep 18, 2016 01:36 PM FORMER TOBACCO USE <1Y [facility] Aug 10, 2016 03:54 PM INPT TOBACCO USE - PT REFUSED [facility] Aug 01, 2016 06:48 PM [facility] Aug 01, 2016 06:48 PM INPT TOBACCO USER [place] [facility] Feb 08, 2015 09:57 AM CURRENT TOBACCO USER [facility] Nov 29, 2013 10:37 AM [facility] Nov 26, 2013 11:09 AM PATIENT IS TOBACCO USER [place] [facility] Nov 27, 2012 12:12 PM [facility] Dec 27, 2011 09:44 AM CURRENT [facility] Jan 22, 2011 02:38 PM CUR[facility] Mar 13, 2010 12:48 PM CURRENT TOBACCO USER [facility] Advance Directives: All historical and current [...] [facility] Aug 02, 2016 CLINICAL WARNING NORAHAURORA Aguirre [facility] Pathology Reports: +/- 30 days of [...] the Encounter. The data comes from all [facility] facilities. Date/Time Pathology Report Provider Source May 08, 2022 06:46 PM LR SURGICAL PATHOLOGY REPORT: SARAH MEDEL [facility] LOCAL TITLE: LR SURGICAL PATHOLOGY REPORT STANDARD TITLE: PATHOLOGY REPORT DATE OF NOTE: MAY 08, 2022@18:46:34 ENTRY DATE: MAY 08, 2022@18:46:34 AUTHOR: SARAH MEDEL EXP COSIGNER: URGENCY: STATUS: COMPLETED $APHDR Reporting Lab: [facility] [CLIA# [id number]] [place] [address] - - - - - - - [...] Performing Laboratory: Surgical Pathology Report Performed By: [facility] [CLIA# [id number]] [place] [address] $FTR - - - - - - [...] - - REGI MANTILLA STANDARD FORM 515 ID:[id number] SEX:M :1950 AGE: 72 LOC: 1153 PCP: Preet Anderson MD /mikal/ SARAH MEDEL MD STAFF PATHOLOGIST, PATHOLOGY & LABORATORY MED SV C Signed: 05/08/2022 18:46 Encounter Notes: All associated encounter notes This section contains the clinical notes associated to the Encounter. Date/Time Encounter Note(s) Provider Source April 10, 2022 11:14 AM CARDIOLOGY DIAGNOSTIC STUDY CONSULT: ROSY CENTENO [facility] LOCAL TITLE: CARDIAC ELECTROPHYSIOLOGY CONSULT STANDARD TITLE: CARDIOLOGY DIAGNOSTIC STUDY CONS ULT DATE OF NOTE: APRIL 10, 2022@11:14 ENTRY DATE: APRIL 10, 2022@11:14:12 AUTHOR: ORSY FAITH EXP COSIGNER: URGENCY: STATUS: COMPLETED SUBJECT: [...] patient e lected to follow-up at the AR since he is known to cardiology here. [...] MAT. P t. was initially evaluated at [facility] but was then transfe rred to [facility]. Pt. had a cardiac cath during admission, which ron wed no obstructive CAD. Echo w/ normal EF. Pt. also had an EGD, which showed no n-erosive gastritis. Pt. was monitored for ETOH withdrawal during a dmission, but he did not exhibit sx. In the interim, pt. 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 Technically limited exam. 2. Normal LV [...] PET CT Myocardial Perfusion Imaging (02/18/22 @ [facility]: 1. Myocardial perfusion was abnormal. There was [...] management of atrial arrhythmias after recent no n-AR hospitalization where he was dx w/ MAT. - 03/2022 14-day Zio showed 31% AT vs. AFl burde n w/ average HR 140 bpm. Longest episode - 13 hours/29 minutes. It is di fficult to discern if fast rhythms are AT vs. AFl. However, there are two tracings (page 9 and page 17) which clearly show A.fib. - CHADS-VASC = 3 (>65, HTN, CAD/TN). Anticoagula tion is indicated for CVA prophylaxis. [...] ablation at that visit. /mikal/ ROSY FAITH APRN/STEPHANIE/ZI-[facility] ELECTROPHYSIOLOGY NURSE PRACTITIONER Signed: 04/11/2022 12:00 April 10, 2022 10:59 AM INTERNAL MEDICINE OUTPATIENT NOTE: RICARDO KING [facility] LOCAL TITLE: MEDICINE CLINIC NURSING NOTE [...] any outside medicatio ns or herbals. /mikal/ SHERRY KING LPN LPN Signed: 04/10/2022 11:00
--- OUTSIDE RECORDS SUMMARY | 2022-10-13 17:26 | XMS_ITS | Encounter Summary ---
:1950 Author Organization Department [facility] Address [address] [place] [address] Support Name Relationship Address Phone MADELIN MANTILLA Unavailable [address] [phone] [place] [address] MADELIN MANTILLA Unavailable [address] [phone] [place] [address] DHAVAL MANTILLA Unavailable [address] [place] [address] Insurance Providers: All historical and current Section [...] MEDICARE MEDICARE PART Jul 18, PART B [id number] ANNALEE BUSTILLO (WNR) (M) B 2014A [phone] ,REGI MEDICARE MEDICARE PART Apr 17, PART A [id number] 800 ANNALEE BRYANIENT (WNR) (M) A 2012A [phone] ,REGI Selected Encounter This section includes the information on record at DC for the Encounter. Date/Time Encounter Type Encounter Reason Provider Source Description May 07, 2022 COLONOSCOPY AND GI ENDOSCOPY ICD-10-CM K64.8 REININK,AND RE 09:00 AM BIOPSY Other W R hemorrhoids with Provider Comments: Other Hemorrhoids IHE Encounter Template Text not used by DC Assessments - Encounter Diagnoses This section includes the primary and secondary diagnoses documented for the Encounter. Date/Time Primary/Secondary Diagnosis Name Provider Source Diagnosis May 07, 2022 PRIMARY Other hemorrhoids [place] [place] 01:11 PM LADY Aggarwal [facility] May 07, 2022 SECONDARY Dvrtclos of lg int [facility] [place] [facility] 01:11 PM w/o perforation or N,LADY [facility] abscess w/o bleeding May 07, 2022 SECONDARY Other fecal [facility] 01:11 PM abnormalities NLADY [facility] May 07, 2022 SECONDARY Polyp of colon [facility] 01:11 PM N,LADY [facility] Plan of Treatment: Future Appointments (+ 6 months) and Future Tests (+/- 45 days) The Plan of Treatment section includes future care activities for the patient from all [facility]. This section includes future appointments and future [...] 10:30 AM AMBULATORY - MEDICINE [facility] May 15, 2022 10:40 AM AMBULATORY - MEDICINE [facility] May 15, 2022 11:30 AM AMBULATORY - MEDICINE [facility] May 15, 2022 01:00 PM AMBULATORY - MEDICINE [facility] May 15, 2022 01:45 PM AMBULATORY - NONE [facility] Jun 19, 2022 01:15 PM AMBULATORY - NONE [facility] Jun 24, 2022 05:53 PM AMBULATORY - MEDICINE [facility] Jul 15, 2022 02:49 PM AMBULATORY - NONE [facility] Jul 16, 2022 12:20 PM AMBULATORY - NONE [facility] Jul 17, 2022 10:22 PM AMBULATORY - NONE [facility] Jul 19, 2022 07:00 AM AMBULATORY - NONE [facility] Jul 19, 2022 08:00 AM AMBULATORY - MEDICINE [facility] Jul 19, 2022 09:00 AM AMBULATORY - MEDICINE [facility] Jul 24, 2022 11:00 AM AMBULATORY - MEDICINE [facility] Jul 25, 2022 09:00 AM AMBULATORY - NONE [facility] Jul 25, 2022 10:30 AM AMBULATORY - NONE [facility] Jul 25, 2022 11:00 AM AMBULATORY - SURGERY [facility] Jul 25, 2022 12:30 PM AMBULATORY - NONE [facility] Aug 05, 2022 11:00 AM AMBULATORY - NONE [facility] Aug 06, 2022 10:00 AM AMBULATORY - SURGERY [facility] Active, Pending, and Scheduled Orders This section includes a listing of several types of active, pending, and scheduled orders, including clinic medications orders, diagnostic test orders, procedure orders and consult orders; where the start date of the order is 45 days before the date of the Encounter or 45 days after the date of the Encounter. The data comes from all DC treatment facilities. Test Date/Time Test Type Test [...] Reference Range Comment May 15, 2022 10:57 [facility] TSH W/REFLEX TO FREE Spec imen Type: PLASMA AM T4 No comment enter ed. Ordering Provid er: ROSY FAITH Report Released Date/Time: April 11, 2022 12:04 PM Reporting Lab: [facility] [address] [facility] [id number] Performing Lab: [facility] [address] [facility] [id number] TSH 3.03 0.35-4.94 May 15, 2022 [facility] COMPREHENSIVE METABOLIC Spec imen Type: PLASMA 10:57 AM PANEL+MG No comment enter ed. Ordering Provid er: ROSY FAITH Report Released Date/Time: April 11, 2022 12:04 PM Reporting Lab: [facility] [address] [facility] [id number] Performing Lab: [facility] [id number] CREATININE 1.2 0.7-1.2 UREA NITROGEN 25 8-26 [...] took place. Date/Time Smoking Status/Tobacco Use Comment [facility] Mar 05, 2022 01:30 PM VA-TOBACCO QUIT 1 TO < 5 YRS [facility] Jun 01, 2021 02:00 PM [facility]CO [facility] [place] [facility] Dec 31, 2019 10:54 AM VA-TOBACCO FORMER USER [place] [facility] Dec 31, 2019 10:54 AM VA-TOBACCO QUIT < 1 YEAR [facility] March 23, 2019 09:53 AM VA-TOBACCO FORMER USER [place] [facility] March 23, 2019 09:53 AM VA-TOBACCO QUIT < 1 YEAR M [facility] Jun 10, 2018 10:00 AM CURRENT TOBACCO USER [place] [facility] May 10, 2018 07:27 PM INPT TOBACCO COUNSELING [place] [facility] May 10, 2018 07:27 PM INPT TOBACCO USER [place] [facility] Aug 29, 2017 09:55 AM FORMER TOBACCO USE <1Y MIN [facility] May 26, 2017 10:51 PM INPT TOBACCO COUNSELING [place] [facility] May 26, 2017 10:51 PM INPT TOBACCO USER [place] [facility] May 03, 2017 09:34 PM INPT TOBACCO COUNSELING [place] [facility] May 03, 2017 09:34 PM INPT TOBACCO USER [place] [facility] Sep 18, 2016 01:36 PM FORMER TOBACCO USE <1Y MIN [facility] Aug 10, 2016 03:54 PM INPT TOBACCO USE - PT REFUSED [facility] Aug 01, 2016 06:48 PM INPT TOBACCO COUNSELING [place] [facility] Aug 01, 2016 06:48 PM INPT TOBACCO USER GONZALES LORENZ [facility] Feb 08, 2015 09:57 AM CURRENT [facility]BACCO [facility]ER [facility] Nov 29, 2013 10:37 AM CURRENT TOBACCO USER [place] [facility] Nov 26, 2013 11:09 AM PATIENT IS TOBACCO USER ANAID GARCIA [facility] Nov 27, 2012 12:12 PM CURRENT TOBACCO USER [place] [facility] Dec 27, 2011 09:44 AM CURRENT TOBACCO USER [place] [facility] Jan 22, 2011 02:38 PM CUR[facility]AC[facility] Mar 13, 2010 12:[address] USER [facility] Advance Directives: All historical and current Section Date Range: From patient's date of to the date document was created. This section includes ALL of a patient's completed or amended DC Advance and Rescinded Directives. The entries below indicate that a directive exists for the patient, but an actual copy is not included with this document. The data comes from all [facility]. Date Advance Directives Provider Source Feb 25, 2018 ADVANCE DIRECTIVE AURORA MORALES [facility] Feb 24, 2018 ADVANCE DIRECTIVE DISCUSSION AURORA MORALES [facility] May 26, 2017 CLINICAL WARNING MAGO CONTRERAS [facility] May 03, 2017 CLINICAL WARNING SARIAH ENGLE [facility] Aug 10, 2016 CLINICAL WARNING ISABEL BARCENAS [facility] Aug 02, 2016 CLINICAL WARNING AURORA ALMAZAN [facility] Radiology Reports: +/- 30 days [...] the Encounter. The data comes from all [place] treatment facilities. Date/Time Radiology Report Provider Source May 15, 2022 01:23 PM CHEST 2 VIEWS PA AND LAT: DARIEN HERNANDEZ [facility] REGI MANTILLA [id number] [phone] [phone] M Ex Date: MAY 15, 2022@13:23 Req Phys: MARCELLROSYSURI Celestin Loc: [facility] CARDIAC E P MARCELL 3D (Req Img Loc: MAIN X-RAY Service: Unknown (Case [id number] COMPLETE) CHEST 2 VIEWS PA AND LAT (R AD Detailed) CPT:00122 Reason for Study: cough, SOB x 2 months; evalua te for edema/infiltrate Clinical History: IS NOT under investigation for COVID-19 or is COVID-19 negative cough, SOB x 2 months Responsible provider name and phone number to notify for critical findings if other than user placing the order and pager listed below: User placing orders pager: [phone] LAST CREATININE 1.2 (05/15/22) Report Status: Verified Date Reported: MAY 15, 2022 Date Verified: MAY 15, 2022 Die Cast Operator E-Sig:/ES/DARIEN HERNANDEZ MD Report: CHEST 2 [...] Primary Interpreting Staff: DARIEN HERNANDEZ MD, RADIOLOGIST (Die Cast Operator) /CDC Pathology Reports: +/- 30 days [...] the Encounter. The data comes from all [place] treatment facilities. Date/Time Pathology Report Provider Source May 08, 2022 06:46 PM LR SURGICAL PATHOLOGY REPORT: SARAH MEDEL [facility] LOCAL TITLE: LR SURGICAL PATHOLOGY REPORT STANDARD TITLE: PATHOLOGY REPORT DATE OF NOTE: MAY 08, 2022@18:46:34 ENTRY DATE: MAY 08, 2022@18:46:34 AUTHOR: SARAH MEDEL EXP COSIGNER: URGENCY: STATUS: COMPLETED $APHDR Reporting Lab: [facility] [CLIA# [id number]] [place] [address] - - - - - - - [...] Performing Laboratory: Surgical Pathology Report Performed By: [facility] [CLIA# [id number]] [place] [address] $FTR - - - - - - [...] - - REGI MANTILLA STANDARD FORM 515 ID:[id number] SEX:M :1950 AGE: 72 LOC: 1153 PCP: Preet Anderson MD /mikal/ SARAH MEDEL MD STAFF PATHOLOGIST, PATHOLOGY & LABORATORY MED SV C Signed: 05/08/2022 18:46 Encounter Notes: All associated encounter notes This section contains the clinical notes associated to the Encounter. Date/Time Encounter Note(s) Provider Source May 09, 2022 08:51 LETTERS: MALINI THAO [facility] LOCAL TITLE: FOLLOW UP RESULTS LETTER STANDARD TITLE: LETTERS DATE OF NOTE: MAY 09, 2022@08:51 ENTRY DATE: MAY 09, 2022@08:51:17 AUTHOR: MALINI THAO EXP COSIGNER: URGENCY: STATUS: COMPLETED [facility] [place] [address] Apr REGI MANTILLA [address] [facility] [address] Dear : I am writing to inform [...] The GI department can be reached at [phone] or toll free at [phone]. [phone]. Sincerely, MALINI THAO MD GASTROENTEROLOGY STAFF PHYSICIAN May 07, 2022 01:09 GASTROENTEROLOGY CONSULT: FRANDY HEIN [facility] LOCAL TITLE: GASTROENTEROLOGY CONSULT [facility] TITLE: GASTROENTEROLOGY CONSULT DATE OF NOTE: MAY [...] 2022 09:59 GASTROENTEROLOGY PREPROCEDURE NOTE: Seymour THAO [facility] AM LOCAL TITLE: GI PRE-PROCEDURE NOTE STANDARD [...] * 3. HTN - Hypertension (SNOMED CT 48601084) 4. Hyperlipidemia (SNOMED CT 45040553) 5. Alcohol abuse (SNOMED CT 54402079) 6. Cannabis abuse (SNOMED CT 08115333) 7. Pain in joint involving shoulder region - RIGHT 8. Anemia (SNOMED CT 234617365) 9. Jt Replcmnt Stat, Knee 10. Gastroesophageal reflux disease (SNOMED CT 2 01767598) 11. CAD - Coronary artery disease - [...] 11.98 (09/28/21) 10.65 (01/11/22) Other Lab tests: [employer] (ASA) Cla ssification: III Sedation Plan: Moderate sedation I have reviewed the patient's pre-procedure bas nataliia level of consciousness, current vital signs, time and nature of last or al intake, and any previous adverse experiences with sedation as documented in the Provation Multi-Care note. The procedure report can be viewed in the Repor ts tab-->procedures or in [facility]. /es/ MALINI THAO MD GASTROENTEROLOGY STAFF PHYSICIAN Signed: 05/07/2022 10:00
--- OUTSIDE RECORDS SUMMARY | 2022-10-13 17:26 | XMS_ITS | Encounter Summary ---
:1950 Author Organization [facility] Address [address] [place] [address] Support Name Relationship Address Phone MADELIN MANTILLA Unavailable [address] [phone] [place] [address] MADELIN MANTILLA Unavailable [address] [phone] [place] [address] DHAVAL MANTILLA Unavailable [address] [place] [address] Insurance Providers: All historical and current Section [...] MEDICARE MEDICARE PART Jul 18, PART B [id number] ANNALEE BRYANIENT (WNR) (M) B 2014A [phone] ,REGI MEDICARE MEDICARE PART Apr 17, PART A [id number] 800 ANNALEE BRYANIENT (WNR) (M) A 2012 [id number] ,REGI Selected Encounter This section includes the information on record at [place] for the Encounter. Date/Time Encounter Type Encounter Reason Provider Source Description May 15, 2022 HEMOGLOBIN PULMONARY ICD-10-CM I48.0 MARCELO BARRIENTOS 10:40 AM FUNCTION Paroxysmal atrial JOSE ALBERTO K fibrillation with Provider Comments: Paroxysmal atrial fibrillation ([facility] [id number]) IHE Encounter Template Text not used by [place] Assessments - Encounter Diagnoses This section includes the primary and secondary diagnoses documented for the Encounter. Date/Time Primary/Secondary Diagnosis Name Provider Source Diagnosis May 15, 2022 PRIMARY Paroxysmal atrial GABI GALEAS IS [place] 10:58 AM [place] freed [facility] Plan of Treatment: Future Appointments (+ 6 months) and Future Tests (+/- 45 days) The Plan of Treatment section includes future care activities for the patient from all [place] [facility]. This section includes future appointments and future orders which are active, pending orscheduled.Future Appointments This section includes appointments that were scheduled to occur 6 months from the date of the Encounter, up to a maximum of 20 appointments. The data comes from all [place] treatment [facility]. Appointment Date/Time Appointment Type Appointment Facili ty Name Jun 19, 2022 01:15 PM AMBULATORY - NONE [facility] Jun 24, 2022 05:53 PM AMBULATORY - MEDICINE [facility] Jul 15, 2022 02:49 PM AMBULATORY - NONE [facility] Jul 16, 2022 12:20 PM AMBULATORY - NONE [facility] Jul 17, 2022 10:22 PM AMBULATORY - NONE [facility] Jul 19, 2022 07:00 AM AMBULATORY - NONE [facility] Jul 19, 2022 08:00 AM AMBULATORY - MEDICINE [facility] Jul 19, 2022 09:00 AM AMBULATORY - MEDICINE [facility] Jul 24, 2022 11:00 AM AMBULATORY - MEDICINE [facility] Jul 25, 2022 09:00 AM AMBULATORY - NONE [facility] Jul 25, 2022 10:30 AM AMBULATORY - NONE [facility] Jul 25, 2022 11:00 AM AMBULATORY - SURGERY [facility] Jul 25, 2022 12:30 PM AMBULATORY - NONE [facility] Aug 05, 2022 11:00 AM AMBULATORY - NONE [facility] Aug 06, 2022 10:00 AM AMBULATORY - SURGERY [facility] Sep 18, 2022 08:00 AM AMBULATORY - NONE [facility] Sep 18, 2022 09:15 AM AMBULATORY - NONE [facility] Sep 18, 2022 11:00 AM AMBULATORY - NONE [facility] Oct 21, 2022 01:00 PM AMBULATORY - NONE [facility] Oct 21, 2022 01:30 PM AMBULATORY - NONE [facility] Active, Pending, and Scheduled Orders This section includes a listing of several types of active, pending, and scheduled orders, including clinic medications orders, diagnostic test orders, procedure orders and consult orders; where the start date of the order is 45 days before the date of the Encounter or 45 days after the date of the Encounter. The data comes from all [place] treatment [facility]. Test Date/Time Test Type Test Details Facility Name May 15, 2022 12:00 Laboratory - COVID-19 AND FLU/RSV DIAG [facility] AM Chemistry Order PANEL(CEPHEID) NASOPHARYNGEAL SWAB STAT WC ONCE Jun 24, 2022 06:55 Laboratory - EXTRA BLUE TUBE PLASMA WC [facility] PM Chemistry Order Jun 24, 2022 06:55 Laboratory - EXTRA GOLD GEL TUBE SERUM [facility] PM Chemistry Order WC Jun 24, 2022 06:55 Laboratory - EXTRA PURPLE TUBE BLOOD [place] [facility] PM Chemistry Order Jun 24, 2022 06:55 Laboratory - EXTRA MINT TUBE PLASMA WC [facility] PM Chemistry Order Lab Results: +/- 30 days of the [...] Reference Range Comment May 15, 2022 10:57 [facility] TSH W/REFLEX TO FREE Spec imen Type: PLASMA AM T4 No comment enter ed. Ordering Provid er: ROSY FAITH Report Released Date/Time: April 11, 2022 12:04 PM Reporting Lab: [facility] [address] [facility] [address] Performing Lab: [facility] [address] [facility] [address] TSH 3.03 0.35-4.94 May 15, 2022 [facility] COMPREHENSIVE METABOLIC Spec imen Type: PLASMA 10:57 AM PANEL+MG No comment enter ed. Ordering Provid er: ROSY FAITH Report Released Date/Time: April 11, 2022 12:04 PM Reporting Lab: [facility] [address] [facility] [address] Performing Lab: [facility] [address] [facility] [address] CREATININE 1.2 0.7-1.2 UREA NITROGEN 25 8-26 [...] dy Source Pressure Rate Mass Index May 15, F 63 120/77 16 /min 94 % 0 61.811 123.9 23 [place] 2021 12:50 /min mm[Hg] in lb [facility] Social History: Smoking Status (Most [...] took place. Date/Time Smoking Status/Tobacco Use Comment [facility] Mar 05, 2022 01:30 PM VA-TOBACCO QUIT 1 TO < 5 YRS [facility] Jun 01, 2021 02:00 PM [facility] Dec 31, 2019 10:54 AM VA-TOBACCO FORMER USER [facility] Dec 31, 2019 10:54 AM VA-TOBACCO QUIT < 1 YEAR [place] [facility] March 23, 2019 09:53 AM VA-TOBACCO FORMER USER [facility] March 23, 2019 09:53 AM VA-TOBACCO QUIT < 1 YEAR [facility] Jun 10, 2018 10:00 AM CURRENT TOBACCO USER LAWSON WENDI [facility] May 10, 2018 07:27 PM INPT TOBACCO COUNSELING [place] [facility] May 10, 2018 07:27 PM INPT TOBACCO USER GONZALES LORENZ [facility] Aug 29, 2017 09:55 AM FORMER TOBACCO USE <1Y [facility] May 26, 2017 10:51 PM INPT TOBACCO COUNSELING [place] [facility] May 26, 2017 10:51 PM INPT TOBACCO USER CAROLYNO GERDA [facility] May 03, 2017 09:34 PM INPT TOBACCO COUNSELING [place] RAD[place] [facility] May 03, 2017 09:34 PM INPT TOBACCO USER CAROLYNO GERDA [facility] Sep 18, 2016 01:36 PM FORMER TOBACCO USE <1Y [facility] Aug 10, 2016 03:54 PM INPT TOBACCO USE - PT REFUSED [facility] Aug 01, 2016 06:48 PM INPT TOBACCO COUNSELING [facility] Aug 01, 2016 06:48 PM INPT TOBACCO USER GONZALES [facility] Feb 08, 2015 09:57 AM CURRENT [facility] Nov 29, 2013 10:37 AM CURRENT TOBACCO USER [facility] Nov 26, 2013 11:09 AM PATIENT IS TOBACCO USER ANAID GARCIA [facility] Nov 27, 2012 12:12 PM CURRENT TOBACCO USER [facility] WENDI [facility] Dec 27, 2011 09:44 AM CURRENT [facility]ACCO USER [facility] Jan 22, 2011 02:38 PM CURRENT TOBACCO USER [facility] Mar 13, 2010 12:48 PM CURRENT TOBACCO USER [facility] Advance Directives: All historical and current Section Date Range: From patient's date of to the date document was created. This section includes ALL of a patient's completed or amended [place] Advance and Rescinded Directives. The entries below indicate that a directive exists for the patient, but an actual copy is not included with this document. The data comes from all [place] facilities. Date Advance Directives Provider Source Feb 25, 2018 ADVANCE DIRECTIVE AURORA MORALES [facility] Feb 24, 2018 ADVANCE DIRECTIVE DISCUSSION AURORA MORALES [facility] May 26, 2017 CLINICAL WARNING MAGO CONTRERAS [facility] May 03, 2017 CLINICAL WARNING SARIAH ENGLE [facility] Aug 10, 2016 CLINICAL WARNING ISABEL BARCENAS [facility] Aug 02, 2016 CLINICAL WARNING AURORA ALMAZAN [facility] Radiology Reports: +/- 30 days of the [...] the Encounter. The data comes from all [place] treatment facilities. Date/Time Radiology Report Provider Source May 15, 2022 01:23 PM CHEST 2 VIEWS PA AND LAT: DARIEN HERNANDEZ [facility] REGI MANTILLA [id number] -APR 12, 194 8 M Exm Date: MAY 15, 2022@13:23 Req Phys: ROSY FAITH Pat Loc: [facility] CARDIAC E P MARCELL 3D (Req Img Loc: MAIN X-RAY Service: Unknown (Case [id number] COMPLETE) CHEST 2 VIEWS PA AND LAT (R AD Detailed) CPT:20460 Reason for Study: cough, SOB x 2 months; evalua te for edema/infiltrate Clinical History: [place] IS NOT under investigation for COVID-19 or is COVID-19 negative cough, SOB x 2 months Responsible provider name and phone number to notify for critical findings if other than user placing the order and pager listed below: User placing orders pager: [phone] LAST CREATININE 1.2 (05/15/22) Report Status: Verified Date Reported: MAY 15, 2022 Date Verified: MAY 15, 2022 Sas Developer Analyst E-Sig:/ES/DARIEN HERNANDEZ MD Report: CHEST 2 VIEWS [...] Primary Interpreting Staff: DARIEN HERNANDEZ MD, RADIOLOGIST (Sas Developer Analyst) /CDC Pathology Reports: +/- 30 days of [...] the Encounter. The data comes from all [place] treatment facilities. Date/Time Pathology Report Provider Source May 08, 2022 06:46 PM LR SURGICAL PATHOLOGY REPORT: SARAH MEDEL [facility] LOCAL TITLE: LR SURGICAL PATHOLOGY REPORT STANDARD TITLE: PATHOLOGY REPORT DATE OF NOTE: MAY 08, 2022@18:46:34 ENTRY DATE: MAY 08, 2022@18:46:34 AUTHOR: SARAH MEDEL EXP COSIGNER: URGENCY: STATUS: COMPLETED $APHDR Reporting Lab: [facility] [CLIA# [id number]] [place] [address] - - - - - - - [...] Performing Laboratory: Surgical Pathology Report Performed By: [facility] [CLIA# [id number]] [place] [address] $FTR - - - - - - - - - - - - - - - - - - - - - - - - - - - - - - - - - - - - - - - - (End of report) SARAH MEDEL MD gabriella Date May 08, 2022 - - - - - - - - - - - - - - - - - - - - - - - - - - - - - - - - - - - - - - - - REGI MANTILLA STANDARD FORM 515 ID:[id number] SEX:M :1950 AGE: 72 LOC: 1153 PCP: Preet Anderson MD /mikal/ SARAH MEDEL MD STAFF PATHOLOGIST, PATHOLOGY & LABORATORY MED SV C Signed: 05/08/2022 18:46
--- OUTSIDE RECORDS SUMMARY | 2022-10-13 17:27 | XMS_ITS | Encounter Summary ---
:1950 Author Organization Department [facility] Address [address] [place] [address] Support Name Relationship Address Phone MADELIN MANTILLA Unavailable [address] [phone] [place] [address] MADELIN MANTILLA Unavailable [address] [phone] [place] [address] DHAVAL MANTILLA Unavailable [address] [place] [address] Insurance Providers: All historical and current Section [...] MEDICARE MEDICARE PART Jul 18, PART B [id number] ANNALEE BUSTILLO (WNR) (M) B 2014A [phone] ,REGI MEDICARE MEDICARE PART Apr 17, PART A [id number] 800 ANNALEE BRYANIENT (WNR) (M) A 2012A [phone] ,REGI Selected Encounter This section includes the [...] 15, 2022 PRIMARY Encounter for [facility] 02:51 PM screening for J [facility] cardiovascular disorders Plan of Treatment: Future Appointments (+ 6 months) and Future Tests (+/- 45 days) The Plan of Treatment section includes future care activities for the patient from all [place] [facility]. This section includes future appointments and future orders which are active, pending orscheduled.Future Appointments This section includes appointments that were scheduled to occur 6 months from the date of the Encounter, up to a maximum of 20 appointments. The data comes from all [place] treatment [facility]. Appointment Date/Time Appointment Type Appointment Facili ty Name Jun 19, 2022 01:15 PM AMBULATORY - NONE [facility] Jun 24, 2022 05:53 PM AMBULATORY - MEDICINE [facility] Jul 15, 2022 02:49 PM AMBULATORY - NONE [facility] Jul 16, 2022 12:20 PM AMBULATORY - NONE [facility] Jul 17, 2022 10:22 PM AMBULATORY - NONE [facility] Jul 19, 2022 07:00 AM AMBULATORY - NONE [facility] Jul 19, 2022 08:00 AM AMBULATORY - MEDICINE [facility] Jul 19, 2022 09:00 AM AMBULATORY - MEDICINE [facility] Jul 24, 2022 11:00 AM AMBULATORY - MEDICINE [facility] Jul 25, 2022 09:00 AM AMBULATORY - NONE [facility] Jul 25, 2022 10:30 AM AMBULATORY - NONE [facility] Jul 25, 2022 11:00 AM AMBULATORY - SURGERY [facility] S Jul 25, 2022 12:30 PM AMBULATORY - NONE [facility] Aug 05, 2022 11:00 AM AMBULATORY - NONE [facility] Aug 06, 2022 10:00 AM AMBULATORY - SURGERY [facility] Sep 18, 2022 08:00 AM AMBULATORY - NONE [facility] Sep 18, 2022 09:15 AM AMBULATORY - NONE [facility] Sep 18, 2022 11:00 AM AMBULATORY - NONE [facility] Oct 21, 2022 01:00 PM AMBULATORY - NONE [facility] Oct 21, 2022 01:30 PM AMBULATORY - NONE [facility] Active, Pending, and Scheduled Orders This [...] The data comes from all [place] treatment [facility]. Test Date/Time Test Type Test Details Facility Name May 15, 2022 12:00 Laboratory - COVID-19 AND FLU/RSV DIAG [facility] AM Chemistry Order PANEL(CEPHEID) NASOPHARYNGEAL SWAB STAT WC ONCE Jun 24, 2022 06:55 Laboratory - EXTRA BLUE TUBE PLASMA WC [facility] PM Chemistry Order Jun 24, 2022 06:55 Laboratory - EXTRA GOLD GEL TUBE SERUM [facility] PM Chemistry Order WC Jun 24, 2022 06:55 Laboratory - EXTRA PURPLE TUBE BLOOD [facility] PM Chemistry Order Jun 24, 2022 06:55 Laboratory - EXTRA MINT TUBE PLASMA WC [facility] PM Chemistry Order Lab Results: +/- 30 [...] Reference Range Comment May 15, 2022 10:57 [facility] TSH W/REFLEX TO FREE Spec imen Type: PLASMA AM T4 No comment enter ed. Ordering Provid er: ROSY FAITH Report Released Date/Time: April 11, 2022 12:04 PM Reporting Lab: [facility] [address] [facility] [address] Performing Lab: [facility] [address] [facility] [address] TSH 3.03 0.35-4.94 May 15, 2022 [facility] COMPREHENSIVE METABOLIC Spec imen Type: PLASMA 10:57 AM PANEL+MG No comment enter ed. Ordering Provid er: ROSY FAITH Report Released Date/Time: April 11, 2022 12:04 PM Reporting Lab: [facility] [address] [facility] [address] Performing Lab: [facility] [address] CREATININE 1.2 0.7-1.2 UREA NITROGEN 25 8-26 [...] Source Pressure Rate Mass Index May 15, 99 F 63 120/77 16 /min 94 % 0 61.811 123.9 23 [place] 2021 12:50 /min mm[Hg] in lb [facility] Social History: [...] 01:30 PM VA-TOBACCO FORMER USER [facility] Tobacco Use History This section includes a history of the smoking, or tobacco- related health factors, that were collected on or before the date of the Encounter. The data comes from the [place] facility where the Encounter took place. Date/Time Smoking Status/Tobacco Use Comment [facility] Mar 05, 2022 01:30 PM VA-TOBACCO QUIT 1 TO < 5 YRS [facility] Jun 01, 2021 02:00 PM [facility] Dec 31, 2019 10:54 AM VA-TOBACCO FORMER USER [facility] Dec 31, 2019 10:54 AM VA-TOBACCO QUIT < 1 YEAR [facility] March 23, 2019 09:53 AM VA-TOBACCO FORMER USER [facility] March 23, 2019 09:53 AM VA-TOBACCO QUIT < 1 YEAR [place] [facility] Jun 10, 2018 10:00 AM CURRENT TOBACCO USER [place] [facility] May 10, 2018 07:27 PM INPT TOBACCO COUNSELING [place] [facility] May 10, 2018 07:27 PM INPT TOBACCO USER GONZALES LORENZ [facility] Aug 29, 2017 09:55 AM FORMER TOBACCO USE <1Y [facility] May 26, 2017 10:51 PM INPT TOBACCO COUNSELING [place] [facility] May 26, 2017 10:51 PM INPT TOBACCO USER CAROLYNO GERDA [facility] May 03, 2017 09:34 PM INPT TOBACCO COUNSELING IN [place] [facility] May 03, 2017 09:34 PM INPT TOBACCO USER CAROLYNO GERDA [facility] Sep 18, 2016 01:36 PM FORMER TOBACCO USE <1Y [facility] Aug 10, 2016 03:54 PM INPT TOBACCO USE - PT REFUSED [facility] Aug 01, 2016 06:48 PM [facility] Aug 01, 2016 06:48 PM INPT TOBACCO USER GONZALES [facility] Feb 08, 2015 09:57 AM CUR[facility] Nov 29, 2013 10:37 AM CURRENT [facility] Nov 26, 2013 11:09 AM PATIENT IS [facility]BACCO [facility] Nov 27, 2012 12:12 PM CURRENT TOBACCO USER [facility] WENDI [facility] Dec 27, 2011 09:44 AM CURRENT [facility]ACCO [facility] Jan 22, 2011 02:38 PM CURRENT TOBACCO USER [facility] Mar 13, 2010 12:48 PM CURRENT TOBACCO USER [facility] Advance Directives: All historical and current Section Date Range: From patient's date of to the date document was created. This section includes ALL of a patient's completed or amended [place] Advance and Rescinded Directives. The entries below indicate that a directive exists for the patient, but an actual copy is not included with this document. The data comes from all [facility]. Date Advance Directives Provider Source Feb 25, 2018 ADVANCE DIRECTIVE AURORA MORALES [facility] Feb 24, 2018 ADVANCE DIRECTIVE DISCUSSION AURORA MORALES [facility] May 26, 2017 CLINICAL WARNING MAGO CONTRERAS [facility] May 03, 2017 CLINICAL WARNING SARIAH ENGLE [facility] Aug 10, 2016 CLINICAL WARNING ISABEL BARCENAS [facility] Aug 02, 2016 CLINICAL WARNING AURORA ALMAZAN [facility] Radiology Reports: +/- 30 days of [...] data comes from all [place] treatment facilities. Date/Time Radiology Report Provider Source May 15, 2022 01:23 PM CHEST 2 VIEWS PA AND LAT: DARIEN HERNANDEZ [facility] REGI MANTILLA [id number] -APR 12, 194 8 M Exm Date: MAY 15, 2022@13:23 Req Phys: ROSY FAITH Pat Loc: [facility] CARDIAC E P MARCELL 3D (Req Img Loc: MAIN X-RAY Service: Unknown (Case [id number] COMPLETE) CHEST 2 VIEWS PA AND LAT (R AD Detailed) CPT:55625 Reason for Study: cough, SOB x 2 months; evalua te for edema/infiltrate Clinical History: IS NOT under investigation for COVID-19 or is COVID-19 negative cough, SOB x 2 months Responsible provider name and phone number to notify for critical findings if other than user placing the order and pager listed below: User placing orders pager: [phone] LAST CREATININE 1.2 (05/15/22) Report Status: Verified Date Reported: MAY 15, 2022 Date Verified: MAY 15, 2022 Senior Data Modeler E-Sig:/ES/DARIEN HERNANDEZ MD Report: CHEST 2 VIEWS [...] Primary Interpreting Staff: DARIEN HERNANDEZ MD, RADIOLOGIST (Senior Data Modeler) /CDC Pathology Reports: +/- 30 days of [...] data comes from all [place] treatment facilities. Date/Time Pathology Report Provider Source May 08, 2022 06:46 PM LR SURGICAL PATHOLOGY REPORT: SARAH MEDEL [facility] LOCAL TITLE: LR SURGICAL PATHOLOGY REPORT STANDARD TITLE: PATHOLOGY REPORT DATE OF NOTE: MAY 08, 2022@18:46:34 ENTRY DATE: MAY 08, 2022@18:46:34 AUTHOR: SARAH MEDEL EXP COSIGNER: URGENCY: STATUS: COMPLETED $APHDR Reporting Lab: [facility] [CLIA# [id number]] [place] [address] - - - - - - - [...] measuring 0.3 cm in aggregate. CE. Milton Naranjo,PA/cc MICROSCOPIC DESCRIPTION: Microscopic examination performed. DIAGNOSIS: SPEC.1. [...] Performing Laboratory: Surgical Pathology Report Performed By: [facility] [CLIA# [id number]] [place] [address] $FTR - - - - - - [...] - - REGI MANTILLA STANDARD FORM 515 ID:[id number] SEX:M :1950 AGE: 72 LOC: 1153 PCP: Preet Anderson MD /mikal/ SARAH MEDEL MD STAFF PATHOLOGIST, PATHOLOGY & LABORATORY MED SV C Signed: 05/08/2022 18:46
--- OUTSIDE RECORDS SUMMARY | 2022-10-13 17:27 | XMS_ITS | Encounter Summary ---
:1950 Author Organization [facility] Address [address] [place] [address] Support Name Relationship Address Phone MADELIN MANTILLA Unavailable [address] [phone] [place] [address] MADELIN MANTILLA Unavailable [address] [phone] [place] [address] DHAVAL MANTILLA Unavailable [address] [place] [address] Insurance Providers: All historical and current Section [...] MEDICARE MEDICARE PART Jul 18, PART B [id number] ANNALEE BUSTILLO (WNR) (M) B [id number] [phone] ,REGI MEDICARE MEDICARE PART Apr 17, PART A [id number] ANNALEE BUSTILLO (WNR) (M) A [id number] [phone] ,REGI Selected Encounter This section includes the information on record at [place] for the Encounter. 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 This section includes future appointments and future orders which are active, pending orscheduled.Future Appointments This section includes appointments that were scheduled to occur 6 months from the date of the Encounter, up to a maximum of 20 appointments. The data comes from all [place] treatment facilities. Appointment Date/Time Appointment Type Appointment Facili ty Name Jun 19, 2022 01:15 PM AMBULATORY - NONE [facility] Jun 24, 2022 05:53 PM AMBULATORY - MEDICINE [facility] Jul 15, 2022 02:49 PM AMBULATORY - NONE [facility] Jul 16, 2022 12:20 PM AMBULATORY - NONE [facility] Jul 17, 2022 10:22 PM AMBULATORY - NONE [facility] Jul 19, 2022 07:00 AM AMBULATORY - NONE [facility] Jul 19, 2022 08:00 AM AM[facility]ULATORY - [facility]IC[facility] Jul 19, 2022 09:00 AM AMBULATORY - [facility]IC[facility] Jul 24, 2022 11:00 AM AMBULATORY - [facility]IC[facility] Jul 25, 2022 09:00 AM AMBULATORY - NONE [facility] Jul 25, 2022 10:30 AM AMBULATORY - NONE [facility] Jul 25, 2022 11:00 AM AMBULATORY - SURGERY [facility] Jul 25, 2022 12:30 PM AMBULATORY - NONE [facility] Aug 05, 2022 11:00 AM AMBULATORY - NONE [facility] Aug 06, 2022 10:00 AM AMBULATORY - SURGERY [facility] Sep 18, 2022 08:00 AM AMBULATORY - NONE [facility] Sep 18, 2022 09:15 AM AMBULATORY - NONE [facility] Sep 18, 2022 11:00 AM AMBULATORY - NONE [facility] Oct 21, 2022 01:00 PM AMBULATORY - NONE [facility] Oct 21, 2022 01:30 PM AMBULATORY - NONE [facility] Active, Pending, and Scheduled Orders This section [...] Laboratory - COVID-19 AND FLU/RSV DIAG [facility] AM Chemistry Order PANEL(CEPHEID) NASOPHARYNGEAL SWAB STAT WC ONCE Jun 24, 2022 06:55 Laboratory - EXTRA GOLD GEL TUBE SERUM [facility] PM Chemistry Order Jun 24, 2022 06:55 Laboratory - EXTRA PURPLE TUBE BLOOD [facility] PM Chemistry Order Jun 24, 2022 06:55 Laboratory - EXTRA MINT TUBE PLASMA WC [facility] PM Chemistry Order Jun 24, 2022 06:55 Laboratory - EXTRA BLUE TUBE PLASMA WC [facility] PM Chemistry Order Lab Results: +/- [...] Reference Range Comment May 15, 2022 10:57 [facility] TSH W/REFLEX TO FREE Spec imen Type: PLASMA AM T4 No comment enter ed. Ordering Provid er: ROSY FAITH Report Released Date/Time: April 11, 2022 12:04 PM Reporting Lab: [facility] [address] [facility] [id number] Performing Lab: [facility] [address] [facility] [id number] TSH 3.03 0.35-4.94 May 15, 2022 [facility] COMPREHENSIVE METABOLIC Spec imen Type: PLASMA 10:57 AM PANEL+MG No comment enter ed. Ordering Provid er: ROSY FAITH Report Released Date/Time: April 11, 2022 12:04 PM Reporting Lab: [facility] [address] [facility] [id number] Performing Lab: [facility] [address] [facility] [address] CREATININE 1.2 0.7-1.2 UREA NITROGEN 25 8-26 [...] Marcus dy Source Pressure Rate Mass Index Apr 29, 99 F 63 120/77 16 /min 94 % 0 61.811 123.9 23 [place] 2021 12:50 /min mm[Hg] in lb [facility] Social History: Smoking Status (Most current) and [...] 2022 01:30 PM VA-TOBACCO FORMER USER [facility] Tobacco Use History This section includes a history of the smoking, or tobacco- related health factors, that were collected on or before the date of the Encounter. The data comes from the [place] facility where the Encounter took place. Date/Time Smoking Status/Tobacco Use Comment [facility] it Mar 05, 2022 01:30 PM VA-TOBACCO QUIT 1 TO < 5 YRS [facility] Jun 01, 2021 02:00 PM VA-TOBACCO NEVER USED [facility] Dec 31, 2019 10:54 AM VA-TOBACCO FORMER USER [facility] Dec 31, 2019 10:54 AM AR-TOBACCO QUIT < 1 YEAR [facility] March 23, 2019 09:53 AM [facility] March 23, 2019 09:53 AM VA-TOBACCO QUIT < 1 YEAR M [place] [facility] Jun 10, 2018 10:00 AM CURRENT TOBACCO USER [place] [facility] May 10, 2018 07:27 PM INPT TOBACCO COUNSELING [place] [facility] May 10, 2018 07:27 PM INPT TOBACCO USER [place] [facility] Aug 29, 2017 09:55 AM FORMER TOBACCO USE <1Y [facility] May 26, 2017 10:51 PM INPT TOBACCO COUNSELING [place] [facility] May 26, 2017 10:51 PM INPT TOBACCO USER [place] [facility] May 03, 2017 09:34 PM INPT TOBACCO COUNSELING [place] [facility] May 03, 2017 09:34 PM INPT TOBACCO USER [place] [facility] Sep 18, 2016 01:36 PM FORMER TOBACCO USE <1Y [facility] Aug 10, 2016 03:54 PM INPT TOBACCO USE - PT REFUSED [facility] Aug 01, 2016 06:48 PM [facility]AC[facility] Aug 01, 2016 06:48 PM INPT TOBACCO USER [facility] Feb 08, 2015 09:57 AM CURRENT TOBACCO USER [facility] [facility] Nov 29, 2013 10:37 AM CURRENT TOBACCO USER [facility] Nov 26, 2013 11:09 AM PATIENT IS TOBACCO USER [place] [facility] Nov 27, 2012 12:12 PM CURRENT TOBACCO USER [facility] [facility] Dec 27, 2011 09:44 AM CURRENT TOBACCO USER [facility] [facility] Jan 22, 2011 02:38 PM CURRENT TOBACCO USER [facility] [facility] Mar 13, 2010 12:48 PM CURRENT TOBACCO USER [facility] Advance Directives: All historical [...] LLC Feb 24, 2018 ADVANCE DIRECTIVE DISCUSSION AUROAR MORALES [facility] May 26, 2017 CLINICAL WARNING MAGO CONTRERAS E [facility] May 03, 2017 CLINICAL WARNING SARIAH ENGLE [facility] Aug 10, 2016 CLINICAL WARNING ISABEL BARCENAS [facility] Aug 02, 2016 CLINICAL WARNING AURORA ALMAZAN [facility] Radiology Reports: +/- 30 days of the [...] data comes from all [place] treatment facilities. Date/Time Radiology Report Provider Source May 15, 2022 01:23 PM CHEST 2 VIEWS PA AND LAT: DARIEN HERNANDEZ [facility] REGI MANTILLA KRISTOFER [id number] -APR 28, 194 8 M Exm Date: MAY 15, 2022@13:23 Req Phys: ROSY FAITH Pat Loc: [facility] 3D (Req Img Loc: MAIN X-RAY Service: Unknown (Case [id number] COMPLETE) CHEST 2 VIEWS PA AND LAT (R AD Detailed) CPT:88807 Reason for Study: cough, SOB x 2 months; evalua te for edema/infiltrate Clinical History: [place] IS NOT under investigation for COVID-19 or is COVID-19 negative cough, SOB x 2 months Responsible provider name and phone number to notify for critical findings if other than user placing the order and pager listed below: User placing orders pager: [phone] LAST CREATININE 1.2 (05/15/22) Report Status: Verified Date Reported: MAY 15, 2022 Date Verified: MAY 15, 2022 Law Firm Administrator E-Sig:/ES/DARIEN HERNANDEZ MD Report: CHEST 2 VIEWS [...] Primary Interpreting Staff: DARIEN HERNANDEZ MD, RADIOLOGIST (Law Firm Administrator) /CDC Pathology Reports: +/- 30 days of [...] data comes from all [place] treatment facilities. Date/Time Pathology Report Provider Source May 08, 2022 06:46 PM LR SURGICAL PATHOLOGY REPORT: SARAH MEDEL [facility] LOCAL TITLE: LR SURGICAL PATHOLOGY REPORT STANDARD TITLE: PATHOLOGY REPORT DATE OF NOTE: MAY 08, 2022@18:46:34 ENTRY DATE: MAY 08, 2022@18:46:34 AUTHOR: SARAH MEDEL EXP COSIGNER: URGENCY: STATUS: COMPLETED $APHDR Reporting Lab: [facility] [CLIA# [id number]] [place] [address] - - - - - - - [...] Performing Laboratory: Surgical Pathology Report Performed By: [facility] [CLIA# [id number]] [place] [address] $FTR - - - - - - [...] - - REGI MANTILLA STANDARD FORM 515 ID:[id number] SEX:M :1950 AGE: 72 LOC: 1153 PCP: Preet Anderson MD /mikal/ SARAH MEDEL MD STAFF PATHOLOGIST, PATHOLOGY & LABORATORY MED C Signed: 05/08/2022 18:46 Encounter Notes: All associated encounter notes This section contains the clinical notes associated to the Encounter. Date/Time Encounter Note(s) Provider Source May 15, 2022 12:51 PM INTERNAL MEDICINE OUTPATIENT NOTE: Ana VALLEJO [facility] LOCAL TITLE: MEDICINE CLINIC NURSING NOTE STANDARD [...] states no chest pain noted. /mikal/ AMRIK VALLEOJ LPN, LPN Signed: 05/15/2022 12:53 May 15, 2022 12:39 PM CARDIOLOGY DIAGNOSTIC STUDY NOTE: ROSY FAITH [facility] LOCAL TITLE: CARDIOLOGY ELECTROPHYSIOLOGY NOTE STANDARD TITLE: [...] superior branch of the OM[facility] similar to [facility] on 08/02/16--m edically managed - S/p NSTEMI [...] 02/2022 admission---reduced to 2 1o z shots [place] + 1 beer--- prior 1 pint whiskey + 6 pack/beer per day *Illicits: smokes marijuana via a one-hitter thr oughout the day; has been a regular marijuana smoker since *Retired [employer]; and lives w/ in an [...] PET CT Myocardial Perfusion Imaging (02/18/22 @ [facility]: 1. Myocardial perfusion was abnormal. There was [...] of 65%. - Cardiac Cath (02/20/22 @ [facility]): - LAD - widely patent and has [...] control. - CHADS-VASC = 3 (>65, HTN, CAD/SC). Apixaban started 04/10/22 given confirmed AF dx [...] and documentation of encounter. /mikal/ ROSY FAITH APRN/STEPHANIE/CCRN-[facility] ELECTROPHYSIOLOGY NURSE PRACTITIONER Signed: 05/23/2022 15:35
--- OUTSIDE RECORDS SUMMARY | 2022-10-13 17:28 | XMS_ITS | Encounter Summary ---
:1950 Author Organization [facility] Address [address] [place] [id number] Support Name Relationship Address Phone MADELIN MANTILLA Unavailable [address] [phone] [place] [address] MADELIN MANTILLA Unavailable [address] [phone] [place] [address] DHAVAL MANTILLA Unavailable [address] [place] [address] Insurance Providers: All historical and current Section [...] MEDICARE MEDICARE PART Jul 18, PART B [id number] ANNALEE BUSTILLO (WNR) (M) B 2014A [phone] ,[place] MEDICARE MEDICARE PART Apr 17, PART A [id number] [phone] ANNALEE BRYANIENT (WNR) (M) A 2012A [phone] ,[place] Selected Encounter This section includes the information on record at [place] for the Encounter. Date/Time Encounter Type Encounter Reason Provider Source Description Jun 24, 2022 EMERGENCY DEPT EMERGENCY DEPT ICD-10-CM JAYDE MENDOZA 05:53 PM VISIT R62.7 Adult failure to thrive with Provider Comments: Adult Failure to Thrive IHE Encounter Template Text not used by [place] Assessments - Encounter Diagnoses This section includes the primary and secondary diagnoses documented for the Encounter. Date/Time Primary/Secondary Diagnosis Name Provider Source Diagnosis Jun 24, 2022 PRIMARY Adult failure JAYDE MENDOZA [facility] 10:12 PM to [facility] Plan of Treatment: Future Appointments (+ 6 months) and Future Tests (+/- 45 days) The Plan of Treatment section includes future care activities for the patient from all [place] [facility]. This section includes future appointments and future orders which are active, pending orscheduled.Future Appointments This section includes appointments that were scheduled to occur 6 months from the date of the Encounter, up to a maximum of 20 appointments. The data comes from all [place] [facility]. Appointment Date/Time Appointment Type Appointment Facili ty Name Jul 15, 2022 02:49 PM AMBULATORY - NONE [facility] Jul 16, 2022 12:20 PM AMBULATORY - NONE [facility] Jul 17, 2022 10:22 PM AMBULATORY - NONE [facility] Jul 19, 2022 07:00 AM AMBULATORY - NONE [facility] Jul 19, 2022 08:00 AM AMBULATORY - MEDICINE [facility] Jul 19, 2022 09:00 AM AMBULATORY - MEDICINE [facility] Jul 24, 2022 11:00 AM AMBULATORY - MEDICINE [facility] Jul 25, 2022 09:00 AM AMBULATORY - NONE [facility] Jul 25, 2022 10:30 AM AMBULATORY - NONE [facility] Jul 25, 2022 11:00 AM AMBULATORY - SURGERY [facility] Jul 25, 2022 12:30 PM AMBULATORY - NONE [facility] Aug 05, 2022 11:00 AM AMBULATORY - NONE [facility] Aug 06, 2022 10:00 AM AMBULATORY - SURGERY [facility] Sep 18, 2022 08:00 AM AMBULATORY - NONE [facility] Sep 18, 2022 09:15 AM AMBULATORY - NONE [facility] Sep 18, 2022 11:00 AM AMBULATORY - NONE [facility] Oct 21, 2022 01:00 PM AMBULATORY - NONE [facility] Oct 21, 2022 01:30 PM AMBULATORY - NONE [facility] Oct 21, 2022 02:30 PM AMBULATORY - NONE [facility] Oct 21, 2022 03:00 PM AMBULATORY - SURGERY [facility] Active, Pending, and Scheduled Orders This section includes a listing of several types of active, pending, and scheduled orders, including clinic medications orders, diagnostic test orders, procedure orders and consult orders; where the start date of the order is 45 days before the date of the Encounter or 45 days after the date of the Encounter. The data comes from all [place] [facility]. Test Date/Time Test Type Test Details Facility Name May 15, 2022 12:00 Laboratory - COVID-19 AND FLU/RSV DIAG [facility] AM Chemistry Order PANEL(CEPHEID) NASOPHARYNGEAL SWAB STAT WC ONCE Jun 24, 2022 06:55 Laboratory - EXTRA BLUE TUBE PLASMA WC [facility] PM Chemistry Order Jun 24, 2022 06:55 Laboratory - EXTRA GOLD GEL TUBE SERUM [facility] PM Chemistry Order WC Jun 24, 2022 06:55 Laboratory - EXTRA PURPLE TUBE BLOOD [facility] PM Chemistry Order Jun 24, 2022 06:55 Laboratory - EXTRA MINT TUBE PLASMA WC [facility] PM Chemistry Order Lab Results: [...] Interpretation Reference Range Comment Jul 19, 2022 [facility] RHEUMATOLOGY CHEM PANEL Spec imen Type: PLASMA 08:08 AM No comment enter ed. Ordering Provid er: JENNA LUIS Report Released Date/Time: Jan 11, 2022 11:04 AM Reporting [facility] [address] Performing Lab: [facility] [address] CREATININE 1.5 H 0.7-1.2 ALKALINE PHOSPHATASE 72 40-150 ALT/SGPT 12 <55 AST/SGOT 11 <34 C-REACTIVE PROTEIN 5.28 H <5.00 CREAT EGFR(CKD-EPI) 49 L >60 Jul 19, 2022 [facility] RHEUMATOLOGY HEME PANEL Spec imen Type: BLOOD 08:08 AM No comment enter ed. Ordering Provid er: JENNA LUIS Report Released Date/Time: Jan 11, 2022 11:04 AM Reporting Lab: [facility] [address] [facility] [address] Performing Lab: [facility] [address] WBC 13.17 H 4.0-11.0 RBC 3.21 L [...] H 5-15 Jun 24, 2022 09:29 PM [facility] URINALYSIS Specim en Type: URINE No comment enter ed. Ordering Provid er: JAYDE MENDOZA Report Released Date/Time: Jun 24, 2022 06:55 PM Reporting Lab: [facility] [address] Performing Lab: [facility] [address] [facility] [address] URINE COLOR YELLOW SPECIFIC GRAVITY 1.039 H [...] 25 NEGATIVE Jun 24, 2022 08:24 PM [facility] AST/SGOT Specim en Type: PLASMA No comment enter ed. Ordering Provid er: JAYDE MENDOZA Report Released Date/Time: Jun 24, 2022 08:09 PM Reporting Lab: [facility] [address] [facility] [address] Performing Lab: [facility] [address] [facility] [address] AST/SGOT 19 <34 Jun 24, 2022 08:24 PM [facility] POTASSIUM Specim en Type: PLASMA No comment enter ed. Ordering Provid er: JAYDE MENDOZA Report Released Date/Time: Jun 24, 2022 08:09 PM Reporting Lab: [facility] [address] [facility] [address] Performing Lab: [facility] [address] [facility] [address] POTASSIUM 4.9 3.5-5.1 Jun 24, 2022 08:24 PM [facility] PROTEIN,TOTAL Specim en Type: PLASMA No comment enter ed. Ordering Provid er: JAYDE MENDOZA Report Released Date/Time: Jun 24, 2022 08:09 PM Reporting Lab: [facility] [address] [facility] [address] Performing Lab: [facility] [address] [facility] [address] PROTEIN,TOTAL 6.8 6.0-8.3 Jun 24, 2022 07:40 [facility] PROTHROMBIN TIME/INR Spec imen Type: PLASMA PM No comment enter ed. Ordering Provid er: JAYDE MENDOZA Report Released Date/Time: Jun 24, 2022 06:55 PM Reporting Lab: [facility] [address] [facility] [address] Performing Lab: [facility] [address] .INR 1.1 0.8-1.1 .PT 12.1 9.4-12.5 Jun 24, 2022 07:32 [facility] COVID-19 DIAGNOSTIC Speci men Type: NASOPHARYNGEAL PM PANEL (CEPHEID) Comment: Cephei d GeneXpert (618) Ordering Provid er: JAYDE MENDOZA Report Released Date/Time: Jun 24, 2022 06:55 PM Reporting Lab: [facility] [address] [facility] [address] Performing Lab: [facility] [address] [facility] [address] COVID-19 (CEPHEID) Not Detected Not Dete cted Jun 24, 2022 07:29 PM [facility] CBC & DIFF Specim en Type: BLOOD Comment: Clum[place] d Platelets. Invitro artefact. No clinical significance. Platelet count may be higher than stated value. Plt count = 214 K-cmm Manual Differential Performed Ordering Provid er: JAYDE MENDOZA Report Released Date/Time: Jun 24, 2022 06:55 PM Reporting Lab: [facility] [address] [facility] [address] Performing Lab: [facility] [address] WBC 9.67 4.0-11.0 RBC 3.36 L 4.6-6.2 [...] canc .RBC MORPHOLOGY PRESENT Jun 24, 2022 [facility] COMPREHENSIVE METABOLIC Spec imen Type: PLASMA 07:29 PM PANEL+MG Comment: Cancel lation reported to: Rajni Price RN on 06/24/22@2003 by [place]. Test result cancelled due to hemolysis interference in sample. Ordering Provid er: JAYDE MENDOZA Report Released Date/Time: Jun 24, 2022 06:55 PM Reporting Lab: [facility] [address] Performing Lab: [facility] [address] CREATININE 1.3 H 0.7-1.2 UREA NITROGEN 19 [...] Rate Mass Index Jun 242021 11:13 [facility] Jun 242021 11:12 [facility] Jun 24, 98.2 F 63 128/87 16 /min 92 % 8 62.0 in 116.0 21 [place] 2021 10:38 /min mm[Hg] lb [facility] Jun 24, 97.5 F 69 99/64 15 /min 8 [place] 2021 06:00 /min mm[Hg] [facility] Social History: Smoking Status (Most [...] 2022 01:30 PM VA-TOBACCO FORMER USER [facility] Tobacco Use History This section includes a history of the smoking, or tobacco- related health factors, that were collected on or before the date of the Encounter. The data comes from the [place] facility where the Encounter took place. Date/Time Smoking Status/Tobacco Use Comment [facility] Mar 05, 2022 01:30 PM VA-TOBACCO QUIT 1 TO < 5 YRS [facility] Jun 01, 2021 02:00 PM [facility] Dec 31, 2019 10:54 AM VA-TOBACCO FORMER USER [facility] Dec 31, 2019 10:54 AM VA-TOBACCO QUIT < 1 YEAR M [facility] March 23, 2019 09:53 AM VA-TOBACCO FORMER USER [facility] March 23, 2019 09:53 AM VA-TOBACCO QUIT < 1 YEAR [facility] Jun 10, 2018 10:00 AM CURRENT TOBACCO USER [place] [facility] May 10, 2018 07:27 PM INPT TOBACCO COUNSELING [place] [facility] May 10, 2018 07:27 PM INPT TOBACCO USER [place] [facility] Aug 29, 2017 09:55 AM FORMER TOBACCO USE <1Y [facility] May 26, 2017 10:51 PM INPT TOBACCO COUNSELING [place] [facility] May 26, 2017 10:51 PM INPT TOBACCO USER [place] [facility] May 03, 2017 09:34 PM INPT TOBACCO COUNSELING [place] [facility] May 03, 2017 09:34 PM INPT TOBACCO USER GONZALES LORENZ [facility] Sep 18, 2016 01:36 PM FORMER TOBACCO USE <1Y [place] [facility] Aug 10, 2016 03:54 PM INPT TOBACCO USE - PT REFUSED [facility] Aug 01, 2016 06:48 PM INPT TOBACCO COUNSELING [place] [facility] Aug 01, 2016 06:48 PM INPT TOBACCO USER CAROLYNO GERDA [facility] Feb 08, 2015 09:57 AM CURRENT TOBACCO USER LAWSON HUMPHRIESLIS [facility] Nov 29, 2013 10:37 AM CURRENT TOBACCO USER [place] [facility] [facility] Nov 26, 2013 11:09 AM PATIENT IS TOBACCO USER [place] [facility] Nov 27, 2012 12:12 PM CURRENT TOBACCO USER [place] [facility] Dec 27, 2011 09:44 AM CURRENT TOBACCO USER [place] HU[place]RIES[place] [facility] Jan 22, 2011 02:38 PM CURRENT TOBACCO USER [facility] KRISTELS [facility] Mar 13, 2010 12:48 PM CURRENT TOBACCO USER [facility] Advance Directives: All historical and [...] Feb 25, 2018 ADVANCE DIRECTIVE ANDREWAURORA PRESTON [facility] Feb 24, 2018 ADVANCE DIRECTIVE DISCUSSION AURORA MORALES [facility] May 26, 2017 CLINICAL WARNING MAGO CONTRERAS [facility] May 03, 2017 CLINICAL WARNING SARIAH ENGLE [facility] Aug 10, 2016 CLINICAL WARNING ISABEL BARCENAS [facility] Aug 02, 2016 CLINICAL WARNING AURORA ALMAZAN [facility] Encounter Notes: All associated encounter notes This section contains the clinical notes associated to the Encounter. Date/Time Encounter Note(s) Provider Source Jun 24, 2022 09:54 NURSING EMERGENCY DEPT NOTE: RAJNI PRICE [facility] PM LOCAL TITLE: EMERGENCY DEPT NURSING NOTE STANDARD TITLE: NURSING EMERGENCY DEPT NOTE DATE OF NOTE: JUN 24, 2022@21:54 ENTRY DATE: JUN 24, 2022@21:55:05 AUTHOR: RAJNI PRICE EXP COSIGNER: URGENCY: STATUS: COMPLETED Admission to Inpatient from the Emergency Depar [facility] Personal Protective Equipment (PPE): Patient wa s in mask on arrival, patient remained masked for entire visit, RN us ed PPE during every encounter with the patient, MD/PA/[employer] ATTENDANT used PPE d uring every encounter with the patient Admission to Inpatient from the Emergency Depar [facility] Date/Time: Jun@21:55 Chief complaint: Placement Code status: Full Code Allergies: LISINOPRIL (Jun 01, 2021) Current Vital Signs: Temperature: 97.5 F [36.4 C] (06/24/2022 18:00) Heart Rate: 69 (06/24/2022 18:00) Respirations: 15 (06/24/2022 18:00) Blood Pressure: 99/64 (06/24/2022 18:00) O2 Sat: 94% (05/15/2022 12:50) Neurological/ Mentation/ Safety status: Alert and oriented Safety Concerns Hilton collar secondary to recen t c spine [...] 07:52 H & P NOTE: [facility] LOCAL TITLE: H&P HISTORY & PHYSICAL - MEDICINE [facility] STANDARD TITLE: H & P NOTE DATE [...] arthritis and pAfib on apixaban [facility] the setting of alcohol intoxication who was discharged from [facility] on 06/24/2022 and presented to [facility] for assistance finding a TCU. Patient was discharged from [facility] today. Spent a week in [facility] for management (06/18-06/24/2022) of mechani sergio fall related injuries and symptom, found to have central cord syndrome and C5 fract ure. History provided by patient and his daughter, Elizabeth hale at bedside. Had a fall at 06/17/22 at his home. He lives with his elderly wi fe at their apartment [place]. Both him and his were drank. Marcin partida doesn't remember of the fall other than being down and head bleeding, m dariana have hit head on a register. Has long history of alcohol u se disorder and continues to drink 5-6 drinks per day. Post-fall new symptoms: neck landry n, profound weakness of upper extremity, hands feeling num b, mild weakness of the lower extremity, stuterring, and urinary retention. Presented to [place] ER on 06/17, had imaging d one (unclear what imaging modalities he had there) and was sent home. Next day, he returned back to the ED for persistent symptoms and was transferred to [facility]. No records available in [facility] and doesn't have discharge pack age [...] * 3. HTN - Hypertension (SNOMED CT 92962081) 4. Hyperlipidemia (SNOMED CT 70642148) 5. Alcohol abuse (SNOMED CT 76666996) 6. Cannabis abuse (SNOMED CT 26460212) 7. Pain in joint involving shoulder region - RIGHT 8. Anemia (SNOMED CT 107367977) 9. Jt Replcmnt Stat, Knee 10. Gastroesophageal reflux disease (SNOMED CT 2 52964439) 11. CAD - Coronary artery disease - [...] CITRATE LIQUID TAKE 1 BOTTLE BY MO UTH ONCE AT 12PM (NOON) ONE DAY BEFORE [...] Imaging none here - pending reports from [facility], release of information signed Assessment/Plan: 68 year old MALE with PMH significant for CAD s/ p stent x 3 (prox LCX, distal LCX, OM2) in 07/2016, alcohol use disorder, CKD, seropositive rheumatoid arthritis and pAfib on apixaban with recent [facility] anical fall in the setting of alcohol intoxication who was discharged from [facility] on 06/24/2022 and presented to [facility] for assistance with finding TC U. #central cord syndrome and C5 fx #Mechanical fall Pending medical records from [facility] if he had TSCI but discharge instruction mentions central cord synd narendra with c5 fracture -Follow up with OSH medical records- hospital co urse and imaging -patient OSH discharge instruction: -FU with [facility] neurosurgery follow up in 4 weeks -upright [...] AFl burden w/ average HR 140 bpm. -sea captain apixaban -sea captain amiodrone -follows with EP, last since seen in 04/2022 #CKD Admission cr 1.3. Baseline 1.2-1.4. -CTM, avoid nephrotoxic agents #Seropositive RA -sea captain prednisone 10 mg daily -sea captain sulfasalazine 1000 mg BID Fluids/Electrolytes/Nutrition (FEN): regular Deep Vein Thrombosis (DVT) Prophylaxis: apixaban Code Status: FULL Disposition: acute care pending placement Patient will be formally staffed in the AM /es/ [place] [facility] MD RESIDENT Signed: 06/25/2022 03:40 Jun 24, 2022 06:20 PHYSICIAN EMERGENCY DEPT NOTE: JAYDE MENDOZA [facility] LOCAL TITLE: EMERGENCY DEPT NOTE STANDARD TITLE: [...] to the family patient was discharged f [facility] today and the family felt th [...] PPE during every encounter with the patient, MD/PA/[employer] ATTENDANT used PPE during ever y encounter with [...] Receipt Acknowledged By: * AWAITING SIGNATURE * CAROLYNMARYELLEN Porter Jun 24, 2022 05:58 NURSING EMERGENCY DEPT TRIAGE NOTE: ROSELINE BAUER [facility] PM LOCAL TITLE: EMERGENCY DEPARTMENT NURSING TRIAG E NOTE STANDARD TITLE: NURSING EMERGENCY DEPT [...] ISOSORBIDE MONONITRATE 60MG SA TAB TAKE ONE-H [facility] ACTIVE TABLET BY MOUTH EVERY DAY 10) [...] DAY Current Problems: Benign essential hypertension (SCT 91933Bfsgdmh loss (ICD-9-CM 389.9) HTN - Hypertension ([facility] 78970526) Hyperlipidemia ([facility] 04340497) Alcohol abuse ([facility] 74400435) Cannabis abuse ([facility] 36003855) Pain in joint involving shoulder region Anemia ( [facility] 095582322) Jt Replcmnt Stat, Knee (ICD-9-CM V43.65)Gastroes ophageal reflux disease ([facility] 121515526) CAD - Coronary artery disease ([facility] 92625Fdvhk no n-ST segment elevation myocardial infarction ([facility] 739062095) Chronic kidney disease ([facility] 282997327) Rib fract ure ([facility] 95346918) Pain of right shoulder joint (SCT 938659Rbbk landry n ([facility] 05182004) Ankle pain ([facility] 267203014) Rhinitis ([facility] 0133153 2) Seropositive rheumatoid arthritis (SCT 2Multifoc al atrial tachycardia ([facility] 81683610) Elevated liver enzymes level ([facility] 316115Reqhkuvm al atrial fibrillation ([facility] 503508296) Long-term current use of anticoagulant (Drug mon itoring done ([facility] [id number]) Coronavirus Disease 2019 (COVID-19) Screen The patient [...] negative. Result: Screen is negative. Suicide Screen: [place] Suicide Severity Rating Scale (C-SSRS) screener 1. [...]
--- OUTSIDE RECORDS SUMMARY | 2022-10-13 17:28 | XMS_ITS | Encounter Summary ---
:1950 Author Organization [facility] Address [address] [place] [address] Support Name Relationship Address Phone MADELIN MANTILLA Unavailable [address] [phone] [place] [address] MADELIN MANTILLA Unavailable [address] [phone] [place] [address] DHAVAL MANTILLA Unavailable [address] [place] [address] Insurance Providers: All historical and current Section [...] MEDICARE MEDICARE PART Jul 18, PART B [id number] ANNALEE BUSTILLO (WNR) (M) B 2014 24A [phone] ,REGI MEDICARE MEDICARE PART Apr 17, PART A [id number] ANNALEE BUSTILLO (WNR) (M) A [id number] [id number] ,REGI Selected Encounter This section includes the [...] The data comes from all [place] treatment [facility]. Appointment Date/Time Appointment Type Appointment Facili ty Name Jun 24, 2022 05:53 PM AMBULATORY - MEDICINE [facility] H CS Jul 15, 2022 02:49 PM AMBULATORY - NONE [facility] Jul 16, 2022 12:20 PM AMBULATORY - NONE [facility] Jul 17, 2022 10:22 PM AMBULATORY - NONE [facility] Jul 19, 2022 07:00 AM AMBULATORY - NONE [facility] Jul 19, 2022 08:00 AM AMBULATORY - MEDICINE [facility] CS Jul 19, 2022 09:00 AM AMBULATORY - MEDICINE [facility] CS Jul 24, 2022 11:00 AM AMBULATORY - MEDICINE [facility] CS Jul 25, 2022 09:00 AM AMBULATORY - NONE [facility] Jul 25, 2022 10:30 AM AMBULATORY - NONE [facility] Jul 25, 2022 11:00 AM AMBULATORY - SURGERY [facility] S Jul 25, 2022 12:30 PM AMBULATORY - NONE [facility] Aug 05, 2022 11:00 AM AMBULATORY - NONE [facility] Aug 06, 2022 10:00 AM AMBULATORY - SURGERY [facility] S Sep 18, 2022 08:00 AM AMBULATORY - NONE [facility] Sep 18, 2022 09:15 AM AMBULATORY - NONE [facility] Sep 18, 2022 11:00 AM AMBULATORY - NONE [facility] Oct 21, 2022 01:00 PM AMBULATORY - NONE [facility] Oct 21, 2022 01:30 PM AMBULATORY - NONE [facility] Oct 21, 2022 02:30 PM AMBULATORY - NONE [facility] Active, Pending, and [...] the Encounter. The data comes from all [facility]. Test Date/Time Test Type Test Details Facility Name May 15, 2022 12:00 Laboratory - COVID-19 AND FLU/RSV DIAG [facility] AM Chemistry Order PANEL(CEPHEID) NASOPHARYNGEAL SWAB STAT WC ONCE Jun 24, 2022 06:55 Laboratory - EXTRA BLUE TUBE PLASMA WC [facility] PM Chemistry Order Jun 24, 2022 06:55 Laboratory - EXTRA GOLD GEL TUBE SERUM [facility] PM Chemistry Order Jun 24, 2022 06:55 Laboratory - EXTRA PURPLE TUBE BLOOD [facility] PM Chemistry Order Jun 24, 2022 06:55 Laboratory - EXTRA MINT TUBE PLASMA [facility] PM Chemistry Order Lab Results: [...] Interpretation Reference Range Comment Jul 19, 2022 [facility] RHEUMATOLOGY CHEM PANEL Spec imen Type: PLASMA 08:08 AM No comment enter ed. Ordering Provid er: JENNA LUIS Report Released Date/Time: Jan 11, 2022 11:04 AM Reporting Lab: [facility] [id number] Performing Lab: [facility] [id number] CREATININE 1.5 H 0.7-1.2 ALKALINE PHOSPHATASE 72 40-150 ALT/SGPT 12 <55 AST/SGOT 11 <34 C-REACTIVE PROTEIN 5.28 H <5.00 CREAT EGFR(CKD-EPI) 49 L >60 Jul 19, 2022 [facility] RHEUMATOLOGY HEME PANEL Spec imen Type: BLOOD 08:08 AM No comment enter ed. Ordering Provid er: JENNA LUIS Report Released Date/Time: Jan 11, 2022 11:04 AM Reporting [facility] [phone] Performing Lab: [facility] [id number] WBC 13.17 H 4.0-11.0 RBC 3.21 L [...] H 5-15 Jun 24, 2022 09:29 PM [facility] URINALYSIS Specim en Type: URINE No comment enter ed. Ordering Provid er: JAYDE MENDOZA Report Released Date/Time: Jun 24, 2022 06:55 PM Reporting Lab: [facility] [address] [facility] [phone] Performing Lab: [facility] [phone] URINE COLOR YELLOW SPECIFIC GRAVITY 1.039 H [...] 25 NEGATIVE Jun 24, 2022 08:24 PM [facility] AST/SGOT Specim en Type: PLASMA No comment enter ed. Ordering Provid er: JAYDE MENDOZA Report Released Date/Time: Jun 24, 2022 08:09 PM Reporting Lab: [facility] [address] [facility] [address] Performing Lab: [facility] [address] [facility] [address] AST/SGOT 19 <34 Jun 24, 2022 08:24 PM [facility] POTASSIUM Specim en Type: PLASMA No comment enter ed. Ordering Provid er: JAYDE MENDOZA Report Released Date/Time: Jun 24, 2022 08:09 PM Reporting Lab: [facility] [address] [facility] [address] Performing Lab: [facility] [address] [facility] [address] POTASSIUM 4.9 3.5-5.1 Jun 24, 2022 08:24 PM [facility] PROTEIN,TOTAL Specim en Type: PLASMA No comment enter ed. Ordering Provid er: JAYDE MENDOZA Report Released Date/Time: Jun 24, 2022 08:09 PM Reporting Lab: [facility] [address] [facility] [address] [facility] [address] Performing Lab: [facility] ONE [facility] [address] PROTEIN,TOTAL 6.8 6.0-8.3 Jun 24, 2022 07:40 [facility] PROTHROMBIN TIME/INR Spec imen Type: PLASMA PM No comment enter ed. Ordering Provid er: JAYDE MENDOZA Report Released Date/Time: Jun 24, 2022 06:55 PM Reporting Lab: [facility] [phone] Performing Lab: [facility] [address] .INR 1.1 0.8-1.1 .PT 12.1 9.4-12.5 Jun 24, 2022 07:32 [facility] COVID-19 DIAGNOSTIC Speci men Type: NASOPHARYNGEAL PM PANEL (CEPHEID) Comment: Cephei d GeneXpert (618) Ordering Provid er: JAYDE MENDOZA Report Released Date/Time: Jun 24, 2022 06:55 PM Reporting Lab: [facility] [id number] Performing Lab: [facility] [phone] COVID-19 (CEPHEID) Not Detected Not Dete cted Jun 24, 2022 07:29 PM [facility] CBC & DIFF Specim en Type: BLOOD Comment: [place] d Platelets. Invitro artefact. No clinical significance. Platelet count may be higher than stated value. Plt count = 214 K-cmm Manual Differential Performed Ordering Provid er: JAYDE MENDOZA Report Released Date/Time: Jun 24, 2022 06:55 PM Reporting Lab: [facility] [address] Performing Lab: [facility] [address] WBC 9.67 4.0-11.0 RBC 3.36 L 4.6-6.2 [...] canc .RBC MORPHOLOGY PRESENT Jun 24, 2022 [facility] COMPREHENSIVE METABOLIC Spec imen Type: PLASMA 07:29 PM PANEL+MG Comment: Cancel lation reported to: Rajni Giraldo RN on 06/24/22@2004 by el. Test result cancelled due to hemolysis interference in sample. Ordering Provid er: JAYDE MEDNOZA Report Released Date/Time: Jun 24, 2022 06:55 PM Reporting Lab: [facility] [phone] Performing Lab: [facility] [phone] CREATININE 1.3 H 0.7-1.2 UREA NITROGEN 19 [...] 01:30 PM VA-TOBACCO FORMER USER [place] [facility] Tobacco Use History This section includes a history of the smoking, or tobacco- related health factors, that were collected on or before the date of the Encounter. The data comes from the [place] facility where the Encounter took place. Date/Time Smoking Status/Tobacco Use Comment Facil ity Mar 05, 2022 01:30 PM VA-TOBACCO QUIT 1 TO < 5 YRS [facility] Jun 01, 2021 02:00 PM VA-TOBACCO NEVER USED [facility] Dec 31, 2019 10:54 AM VA-TOBACCO FORMER USER [facility] Dec 31, 2019 10:54 AM VA-TOBACCO QUIT < 1 YEAR [facility] March 23, 2019 09:53 AM VA-TOBACCO FORMER USER [facility] March 23, 2019 09:53 AM VA-TOBACCO QUIT < 1 YEAR M [facility] Jun 10, 2018 10:00 AM CURRENT TOBACCO USER [facility] [facility] May 10, 2018 07:27 PM INPT TOBACCO COUNSELING [place] [facility] [facility] May 10, 2018 07:27 PM INPT TOBACCO USER [facility] Aug 29, 2017 09:55 AM FORMER TOBACCO USE <1Y [facility] May 26, 2017 10:51 PM INPT TOBACCO COUNSELING [place] [facility] [facility] May 26, 2017 10:51 PM INPT TOBACCO USER [facility] [facility] May 03, 2017 09:34 PM INPT TOBACCO COUNSELING [place] [facility] May 03, 2017 09:34 PM INPT TOBACCO USER [place] Sep 18, 2016 01:36 PM FORMER TOBACCO USE <1Y [facility] Aug 10, 2016 03:54 PM INPT TOBACCO USE - PT REFUSED [facility] Aug 01, 2016 06:48 PM INPT TOBACCO COUNSELING [place] [facility] [facility] Aug 01, 2016 06:48 PM INPT TOBACCO USER [place] [facility] Feb 08, 2015 09:57 AM CURRENT TOBACCO USER [facility] [facility] Nov 29, 2013 10:37 AM CURRENT TOBACCO USER [facility] Nov 26, 2013 11:09 AM PATIENT IS TOBACCO USER [place] [facility] [facility] Nov 27, 2012 12:12 PM CURRENT TOBACCO USER [facility] Dec 27, 2011 09:44 AM CURRENT TOBACCO USER [facility] Jan 22, 2011 02:38 PM CURRENT TOBACCO USER [facility] Mar 13, 2010 12:48 PM CURRENT TOBACCO USER [facility] Advance Directives: All historical and current [...] Feb 25, 2018 ADVANCE DIRECTIVE AURORA MORALES [facility] Feb 24, 2018 ADVANCE DIRECTIVE DISCUSSION AURORA MORALES [facility] May 26, 2017 CLINICAL WARNING DAVID CONTRERASDRNina Wood [facility] May 03, 2017 CLINICAL WARNING SARIAH ENGLE [facility] Aug 10, 2016 CLINICAL WARNING ISABEL BARCENAS [facility] Aug 02, 2016 CLINICAL WARNING AURORA ALMAZAN [facility] Encounter Notes: All associated encounter notes This section contains the clinical notes associated to the Encounter. Date/Time Encounter Note(s) Provider Source Jun 18, 2022 05:01 PM NONVA [facility] LOC[facility] TITLE: COMMUNITY CARE-ELZBIETA SELF PRESENTIN G CARE COORD PLAN STANDARD TITLE: NONVA NOTE DATE OF NOTE: JUN 18, 2022@17:01 ENTRY DATE: JUN 19, 2022@17:01:52 AUTHOR: SAMREEN HERMAN EXP COSIGNER: URGENCY: STATUS: COMPLETED COMMUNITY CARE-ELZBIETA SELF PRESENTING CARE CO ORD PLAN NOTE Has ADDENDA Emergency Notification Intake Date Presenting to the Facility: Jun Method of Contact: Notified from [employer] worklist Notification ID: [id number] [facility] Referral #: [facility] Name: Hospital: [facility] Address: [address] [place] [address] City: [place] State: [place] Zip Code: [address] Phone : [facility] Point of Contact: Name: AIXA RAY RN Chief complaint: CONTUSION Primary Diagnosis: CONTUSION Disposition Unknown at time of intake note entry /mikal/ SAMREEN HERMAN MEDICAL TRAINING DEVELOPMENT DIRECTOR Signed: 06/19/2022 17:12 Receipt Acknowledged By: 06/25/2022 07:47 /mikal/ PRANAY WOMACK RN REGISTERED NURSE 06/25/2022 ADDENDUM STATUS: COMPLETED Cosigning the [facility] RN to [facility] s note requested records from the facility will send to [facility] once received /abbie WOMACK RN REGISTERED NURSE Signed: 06/25/2022 07:48 Receipt Acknowledged By: 06/25/2022 08:22 /mikal/ HERI BRAUN SURGEON CHIEF NURSE 06/25/2022 ADDENDUM STATUS: COMPLETED Patient is currently admitted to the [facility] 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 /mikal/ HERI BRAUN SURGEON CHIEF NURSE Signed: 06/25/2022 08:22 06/25/2022 ADDENDUM STATUS: COMPLETED was seen in an outside ER on: 06/18/22 [facility] Diagnosis: C5 fracture Transfer to [facility] records received and sent to [facility] for im port. /abbie WOMACK RN REGISTERED NURSE Signed: 06/25/2022 14:48 Jun 18, 2022 01:23 PM NONVA NOTE: SAMREEN HERMAN [facility] LOCAL TITLE: COMMUNITY CARE-ELZBIETA SELF PRESENTIN G CARE COORD PLAN STANDARD TITLE: NONVA NOTE DATE OF NOTE: JUN 18, 2022@13:23 ENTRY DATE: JUN 19, 2022@13:23:45 AUTHOR: SAMREEN HERMAN EXP COSIGNER: URGENCY: STATUS: COMPLETED COMMUNITY CARE-ELZBIETA SELF PRESENTING CARE CO ORD PLAN NOTE Has ADDENDA Emergency Notification Intake Date Presenting to the Facility: Jun Method of Contact: Notified from [employer] work[employer] Notification ID: [id number] [facility] Referral #: [facility] Name: Hospital: [facility] Address: [address] [place] [address] City: [facility] State: [place] Zip Code: [address] Phone : [facility] Point of Contact: Name: HANG WARREN Chief complaint: FALL C5 LAMINA FRACTURE Primary Diagnosis: FALL C5 LAMINA FRACTURE Disposition Admitted Route of Admission: Date of Admission: Jun Admitting Diagnosis: S12.490A Community Care Provider: Confirm Level of Care: /abbie HERMAN MEDICAL TRAINING DEVELOPMENT DIRECTOR Signed: 06/19/2022 13:26 Receipt Acknowledged By: 06/19/2022 16:29 /mikal/ PRANAY WOMACK RN REGISTERED NURSE 06/19/2022 ADDENDUM STATUS: COMPLETED Admitted to: [facility] Admission date: 06/18/22 Provider: Judith Guerrero PA-C Chief Complaint: Fall Admit H&P uploaded to [facility] This [facility] RN will follow Opal rodriguez during this hospitalization. Will request a DC summary be faxed when available and it will be u ploaded into the [facility] medical record when received. /mikal/ PRANAY WOMACK RN REGISTERED NURSE Signed: 06/19/2022 16:30 Receipt Acknowledged By: 06/19/2022 16:32 /mikal/ HERI BRAUN SURGEON CHIEF NURSE 06/25/2022 ADDENDUM STATUS: COMPLETED Hospital Discharge note Hospital: [facility] Admit date: 06/18/22 Discharge date: 06/24/22 Discharge diagnosis: Accidental fall from bed Disposition: home New meds: lidocaine patches Follow up: Neurosurgery Cornelio Ng MD in 4 weeks PCP in 2 weeks Information obtained from ca dical records received and sent to [facility] for import. PACT team aware and follow u p in progress. Will cosign PACT RN for notification of available notes if needed /mikal/ PRANAY WOMACK RN REGISTERED NURSE Signed: 06/25/2022 14:44 Receipt Acknowledged By: * AWAITING SIGNATURE * HERI BRAUN
--- OUTSIDE RECORDS SUMMARY | 2022-10-13 17:29 | XMS_ITS ---
HOSPITALIZATION [facility] Encounter Summary Created on:June 24, 2022 Patient:REGI MANTILLA Sex:Male :1950 Author Organization Department [facility] Address [address] [place] [address] Support Name Relationship Address Phone MADELIN MANTILLA Unavailable [address] [phone] [place] [address] MADELIN MANTILLA Unavailable [address] [phone] [place] [address] DHAVAL MANTILLA Unavailable [address] [place] [address] Insurance Providers: All historical and current Section [...] MEDICARE MEDICARE PART Jul 18, PART B [id number] ANNALEE BRYANIENT (WNR) (M) B [id number] [phone] ,REGI MEDICARE MEDICARE PART Apr 17, PART A [id number] ANNALEE Cardenas ATIENT (WNR) (M) A [id number] [phone] ,REGI Selected Encounter This section includes the information on record at AL for the Encounter. Date/Time Encounter Type Encounter Description Reason Provider Source Jun 24, 2022 Inpatient Visit [facility] [place] 10:13 PM ISSAK IHE Encounter Template Text not used by AL Assessments - Encounter Diagnoses This section includes the primary and secondary diagnoses documented for the Encounter. Date/Time Primary/Secondary Diagnosis Name Provider Source Diagnosis Jun 26, 2022 Diagnosis for Length of Unsp disp fx of Brianda RANDY [facility] 05:04 PM Stay fifth cervical vertebra, init for clos fx Plan of Treatment: Future Appointments (+ 6 months) and Future Tests (+/- 45 days) The Plan of Treatment section includes future care activities for the patient from all [facility]. This section includes future appointments and future orders which are active, pending orscheduled.Future Appointments This section includes appointments that were scheduled to occur 6 months from the date of the Encounter, up to a maximum of 20 appointments. The data comes from all AL treatment [facility]. Appointment Date/Time Appointment Type Appointment Facili ty Name Jul 15, 2022 02:49 PM AMBULATORY - NONE [facility] Jul 16, 2022 12:20 PM AMBULATORY - NONE [facility] Jul 17, 2022 10:22 PM AMBULATORY - NONE [facility] Jul 19, 2022 07:00 AM AMBULATORY - NONE [facility] Jul 19, 2022 08:00 AM AMBULATORY - MEDICINE [facility] Jul 19, 2022 09:00 AM AMBULATORY - MEDICINE [facility] Jul 24, 2022 11:00 AM AMBULATORY - MEDICINE [facility] Jul 25, 2022 09:00 AM AMBULATORY - NONE [facility] Jul 25, 2022 10:30 AM AMBULATORY - NONE [facility] Jul 25, 2022 11:00 AM AMBULATORY - SURGERY [facility] Jul 25, 2022 12:30 PM AMBULATORY - NONE [facility] Aug 05, 2022 11:00 AM AMBULATORY - NONE [facility] Aug 06, 2022 10:00 AM AMBULATORY - SURGERY [facility] Sep 18, 2022 08:00 AM AMBULATORY - NONE [facility] Sep 18, 2022 09:15 AM AMBULATORY - NONE [facility] Sep 18, 2022 11:00 AM AMBULATORY - NONE [facility] Oct 21, 2022 01:00 PM AMBULATORY - NONE [facility] Oct 21, 2022 01:30 PM AMBULATORY - NONE [facility] Oct 21, 2022 02:30 PM AMBULATORY - NONE [facility] Oct 21, 2022 03:00 PM AMBULATORY - SURGERY [facility] Active, Pending, and Scheduled Orders [...] The data comes from all [facility]. Test Date/Time Test Type Test Details Facility Name May 15, 2022 12:00 Laboratory - COVID-19 AND FLU/RSV DIAG [facility] AM Chemistry Order PANEL(CEPHEID) NASOPHARYNGEAL SWAB STAT ONCE Jun 24, 2022 06:55 Laboratory - EXTRA BLUE TUBE PLASMA WC [facility] PM Chemistry Order Jun 24, 2022 06:55 Laboratory - EXTRA GOLD GEL TUBE SERUM [facility] PM Chemistry Order Jun 24, 2022 06:55 Laboratory - EXTRA PURPLE TUBE BLOOD [facility] PM Chemistry Order Jun 24, 2022 06:55 Laboratory - EXTRA MINT TUBE PLASMA WC [facility] PM Chemistry Order Lab Results: +/- 30 days of the encounter This section includes the Chemistry and Hematology Lab Results on record with AL for the patient. Radiology Reports and Pathology Reports are provided separately, in subsequent sections.Lab Results This section contains the Chemistry/Hematology Results that were resulted 30 days before or 30 daysafter the date of the Encounter. Date/Time Source Result Type Result - Unit Interpretation Reference Range Comment Jul 19, 2022 [facility] RHEUMATOLOGY CHEM PANEL Spec imen Type: PLASMA 08:08 AM No comment enter ed. Ordering Provid er: JENNA LUIS Report Released Date/Time: Jan 11, 2022 11:04 AM Reporting Lab: [facility] [address] [facility] [address] Performing Lab: [facility] [address] [facility] [address] CREATININE 1.5 H 0.7-1.2 ALKALINE PHOSPHATASE 72 40-150 ALT/SGPT 12 <55 AST/SGOT 11 <34 C-REACTIVE PROTEIN 5.28 H <5.00 CREAT EGFR(CKD-EPI) 49 L >60 Jul 19, 2022 [facility] RHEUMATOLOGY HEME PANEL Spec imen Type: BLOOD 08:08 AM No comment enter ed. Ordering Provid er: JENNA LUIS Report Released Date/Time: Jan 11, 2022 11:04 AM Reporting Lab: [facility] [address] [facility] [address] Performing Lab: [facility] [address] [facility] [address] WBC 13.17 H 4.0-11.0 RBC 3.21 L [...] H 5-15 Jun 24, 2022 09:29 PM [facility] URINALYSIS Specim en Type: URINE No comment enter ed. Ordering Provid er: JAYDE MENDOZA Report Released Date/Time: Jun 24, 2022 06:55 PM Reporting Lab: [facility] [address] Performing Lab: [facility] [address] URINE COLOR YELLOW SPECIFIC GRAVITY 1.039 H [...] 25 NEGATIVE Jun 24, 2022 08:24 PM [facility] AST/SGOT Specim en Type: PLASMA No comment enter ed. Ordering Provid er: JAYDE MENDOZA Report Released Date/Time: Jun 24, 2022 08:09 PM Reporting Lab: [facility] [id number] Performing Lab: [facility] [address] AST/SGOT 19 <34 Jun 24, 2022 08:24 PM [facility] POTASSIUM Specim en Type: PLASMA No comment enter ed. Ordering Provid er: JAYDE MENDOZA Report Released Date/Time: Jun 24, 2022 08:09 PM Reporting Lab: [facility] [address] Performing Lab: [facility] [address] POTASSIUM 4.9 3.5-5.1 Jun 24, 2022 08:24 PM [facility] PROTEIN,TOTAL Specim en Type: PLASMA No comment enter ed. Ordering Provid er: JAYDE MNEDOZA Report Released Date/Time: Jun 24, 2022 08:09 PM Reporting Lab: [facility] [address] [facility] [address] Performing Lab: [facility] [address] [facility] [address] PROTEIN,TOTAL 6.8 6.0-8.3 Jun 24, 2022 07:40 [facility] PROTHROMBIN TIME/INR Spec imen Type: PLASMA PM No comment enter ed. Ordering Provid er: JAYDE MENDOZA Report Released Date/Time: Jun 24, 2022 06:55 PM Reporting [facility] [address] Performing Lab: [facility] [address] .INR 1.1 0.8-1.1 .PT 12.1 9.4-12.5 Jun 24, 2022 07:32 [facility] COVID-19 DIAGNOSTIC Speci men Type: NASOPHARYNGEAL PM PANEL (CEPHEID) Comment: Cephei d GeneXpert (618) Ordering Provid er: JAYDE MENDOZA Report Released Date/Time: Jun 24, 2022 06:55 PM Reporting Lab: [facility] [address] [facility] [address] Performing Lab: [facility] [address] COVID-19 (CEPHEID) Not Detected Not Dete cted Jun 24, 2022 [facility] COMPREHENSIVE METABOLIC Spec imen Type: PLASMA 07:29 PM PANEL+MG Comment: Cancel lation reported to: Rajni Giraldo RN on 06/24/22@2004 by [place]. Test result cancelled due to hemolysis interference in sample. Ordering Provid er: JAYDE MENDOZA Report Released Date/Time: Jun 24, 2022 06:55 PM Reporting Lab: [facility] [address] [facility] [address] Performing Lab: [facility] [address] CREATININE 1.3 H 0.7-1.2 UREA NITROGEN 19 [...] L >60 Jun 24, 2022 07:29 PM [facility] CBC & DIFF Specim en Type: BLOOD Comment: [place] d Platelets. Invitro artefact. No clinical significance. Platelet count may be higher than stated value. Plt count = 214 K-cmm Manual Differential Performed Ordering Provid er: JAYDE MENDOZA Report Released Date/Time: Jun 24, 2022 06:55 PM Reporting Lab: [facility] [address] Performing Lab: [facility] [address] WBC 9.67 4.0-11.0 RBC 3.36 L 4.6-6.2 [...] Source Pressure Rate Mass Index Jun 24 [facility]2021 11:13 [facility] Jun 24 [facility] 2021 11:12 [facility] Aug 08, 98.2 F 63 128/87 16 /min 92 % 8 62.0 in 116.0 21 [place] [facility] 2021 10:38 /min mm[Hg] lb [facility] Jun 24, 97.5 F 69 99/64 15 /min 8 [place] 2021 06:00 /min mm[Hg] [facility] Social History: Smoking Status (Most current) and Tobacco Use (All prior to encounter date) This section includes the most current, and the historical, smoking and tobacco-related health factors from the AL facility where the Encounter took place.Current Smoking Status This section includes the most current smoking, or tobacco-related health factor, from the AL facility where the Encounter took place. Date/Time Current Smoking Status Comment Facility Mar 05, 2022 01:30 PM VA-TOBACCO FORMER USER [facility] Tobacco Use History This section includes a history of the smoking, or tobacco- related health factors, that were collected on or before the date of the Encounter. The data comes from the AL facility where the Encounter took place. Date/Time Smoking Status/Tobacco Use Comment Facil it Mar 05, 2022 01:30 PM VA-TOBACCO QUIT 1 TO < 5 YRS [facility] Jun 01, 2021 02:00 PM [facility]ACCO [facility] Dec 31, 2019 10:54 AM VA-TOBACCO FORMER USER [facility] Dec 31, 2019 10:54 AM VA-TOBACCO QUIT < 1 YEAR [facility] March 23, 2019 09:53 AM VA-TOBACCO FORMER USER [facility] March 23, 2019 09:53 AM VA-TOBACCO QUIT < 1 YEAR M [place] [facility] Jun 10, 2018 10:00 AM CURRENT TOBACCO USER [place] [facility] May 10, 2018 07:27 PM INPT TOBACCO COUNSELING [place] [facility] May 10, 2018 07:27 PM INPT TOBACCO USER [place] [facility] Aug 29, 2017 09:55 AM FORMER TOBACCO USE <1Y [facility] May 26, 2017 10:51 PM INPT TOBACCO COUNSELING [place] [facility] May 26, 2017 10:51 PM INPT TOBACCO USER [place] [facility] May 03, 2017 09:34 PM INPT TOBACCO COUNSELING [place] [facility] May 03, 2017 09:34 PM INPT TOBACCO USER [place] [facility] Sep 18, 2016 01:36 PM FORMER TOBACCO USE <1Y [place] [facility] Aug 10, 2016 03:54 PM INPT TOBACCO USE - PT REFUSED [facility] Aug 01, 2016 06:48 PM [facility] Aug 01, 2016 06:48 PM INPT TOBACCO USER [place] [facility] Feb 08, 2015 09:57 AM CURRENT TOBACCO USER [facility] Nov 29, 2013 10:37 AM CURRENT TOBACCO USER [facility] Nov 26, 2013 11:09 AM PATIENT IS TOBACCO USER ANAID GARCIA [facility] Nov 27, 2012 12:12 PM CURRENT TOBACCO USER [facility] Dec 27, 2011 09:44 AM CURRENT TOBACCO USER [facility] Jan 22, 2011 02:38 PM CURRENT TOBACCO USER [facility] Mar 13, 2010 12:48 PM CURRENT TOBACCO USER [facility] Advance Directives: All historical and current Section Date Range: From patient's date of to the date document was created. This section includes ALL of a patient's completed or amended AL Advance and Rescinded Directives. The entries below indicate that a directive exists for the patient, but an actual copy is not included with this document. The data comes from all AL facilities. Date Advance Directives Provider Source Feb [...] 26, 2022 05:04 [facility]CHARGE [facility] [facility] LOCAL TITLE: Discharge Summary STANDARD TITLE: [...] ILLNESS: See admission history and physical for furthe r details Mr. Mantilla is a 68 year old MALE with PMH sig nificant for CAD s/p stent x 3 (prox LCX, distal LCX, OM2) in 07/2016, alcohol use disorder, CKD, seropositive rheumatoid arthritis and pAfib on apixaban with recent mech anical fall in the setting of alcohol intoxication who was discharged from [facility] on 06/24/2022 and presented to [facility] for assistance with finding pl acement. Patient progressed w/ PT and OT at [facility] and he was deemed safe to return home w/ family support. Patient and family wanted to pur jessi private pay TCU and/or home care while at [facility], but this was not an option due to lack of skilled need and availability. Patient was reass essed by PT and OT while at the AL. PT recommended discharge home. OT recomm ended home OT. Hospital course complicated by patient removing his Castro catheter w/ balloon intact. Castro was replaced by RN without complication. P atient was discharged home in good condition w/ home health referral. HOSPITAL COURSE BY PROBLEM: # C5 pedical fracture # Central cord syndrome # Mechanical fall Per records from [facility], patient had an accidental fall from [...] to return home w/ family support. - [place] x 3mo - Pain management: scheduled APAP, [...] leave in for 1 week w / mobile home laborer removal at home per [facility] discharge summary. - Continue GERONTOLOGY AIDE Keflex - Continue GERONTOLOGY AIDE tamsulosin - F/u w/ urology as outpatient [...] Patient is not interested in SUSANA/MH tx kike ren in ARS at this time MEDICATION CHANGES DURING THIS HOSPITALIZATION: For a list of Discharge Medications; see the no te titled ED Medication Instruction or Rx Inpatient Me dications at Discharge No new, discontinued, or changed medications. FOLLOW UP care plan by issue: Per [facility] discharge summary: - Specialists: [facility] (4 week s), urology - Home health nursing in 1 week for Castro remova l DISPOSITION ON DISCHARGE: Home CONDITION AT DISCHARGE: Good PERTINENT EXAM FINDINGS: General: Awake, Alert, Oriented X3, No apparent distress. C-collar in place. HEENT: EOMI. Healing scalp wounds. Cardio: Irregularly irregular. Regular rate. Lungs: Clear to auscultation bilaterally, no cat cracker operator ckles, no wheezing, no increased WOB. Abd: [...] 2022 03:01 NURSING INPATIENT NOTE: AUBRIE SY [facility] LOCAL TITLE: [facility] NURSING PROGRESS NOTE STANDARD TITLE: NURSING INPATIENT NOTE DATE OF NOTE: JUN 26, 2022@15:01 ENTRY DATE: JUN 26, 2022@15:01:46 AUTHOR: AUBRIE SY I EXP COSIGNER: URGENCY: STATUS: COMPLETED IMPORTANT PHONE NUMBERS: IF YOU HAVE A LIFE THREATENING EMERGENCY CALL [phone] If you have questions about anything related to your inpatient care at the [facility] or your future care in the [facility], call the Call Center or After Hour numbers list ed below. If you receive care at another AL facility or w ith a community provider, you will need to call them for questions about y our future care. -Call Center Friday-Friday, 7:30-4:30 at or Toll Free -After Hours- toll-free -Outpatient Pharmacy - -Verification of Appointments for the following month - *'S CRISIS LINE NUMBER IS (TALK)* Discharge from ICU, Acute Care, Acute Rehab, or CLC C-SSRS Screening [place] Suicide Severity Rating Scale (C-SSRS) screener 1. [...] care needs: If you receive care at [place] you will nee d to call the Primary Care Call Center number at [phone] . If you receive care at another AL facility or [facility] provider, you will need to call them to arrange your follow u p care. Follow up not ordered at this time. Call the Call Center if problems occur at [phone]. Future appointments: 07/12/2022 09:20 [facility] IENT APPOINTMENT 07/19/2022 08:00 [facility] 3D BLOOD [facility] IENT APPOINTMENT 07/19/2022 09:00 ROSANNA PERRY MD 3D INPATI ENT APPOINTMENT 11/20/2022 10:30 [facility] 3D BLOOD [facility]RAW [facility]IC [facility] IENT APPOINTMENT 11/20/2022 11:00 [facility] 3D EKG INPATIENT APPOINTMENT 11/20/2022 11:30 [facility] CARDIAC TOR [place] INAK TIENT APPOINTMENT You are being referred to these outside agencie s: Home health nurse for castro removal in one week and for medication man agement. IM - Immunizations Immunization Series Date Facility Reaction Info COVID-19 (PlayerPro), MRNA, LNP-S, P* 3 09/28/2021 [place] 2 01/31/2021 [place] 1 01/12/2021 [place] COVID-19 (PFIZER), MRNA, LNP-S, P* 4 03/05/2022 [place] INFLUENZA, HIGH DOSE SEASONAL 08/29/2017 [place]* 11/03/2015 [place] INFLUENZA, INJECTABLE, QUADRIVALE* 09/28/2021 [place] 07/28/2020 [place] INFLUENZA, SEASONAL, INJECTABLE,* 08/26/2019 [place] 09/18/2018 [place] 08/01/2016 No Site 11/09/2014 [...] outlined below: OUTPATIENT FOLLOW UP - Specialists: [facility] (Niki torres), urology - Discharge summary instructions regarding [...] 01:56 PASTORAL CARE NOTE: ISRRAEL ELLIOTT IS [facility] PM LOCAL TITLE: SIZER MACHINE-VISITATION NOTE STANDARD TITLE: PASTORAL CARE NOTE DATE OF NOTE: JUN 26, 2022@13:56 ENTRY DATE: JUN 26, 2022@13:56:30 AUTHOR: ISRRAEL ELLIOTT EXP COSIGNER: URGENCY: STATUS: COMPLETED SUBJECT: Holy Communion Pastoral visit. The patient asked to rec eive Tyson in the most Holy Eucharist. The Sacrament was celebrated with the patient. Progress note entered for Mr Riaz Arellano - [facility] Extra Ordinary Berry Grower [employer] - Volunteer. /es/ FATHER ISRRAEL ELLIOTT (DAMIEN) CHIEF, SIZER MACHINE SERVICE Signed: 06/26/2022 13:56 Jun 26, 2022 09:55 OCCUPATIONAL THERAPY DISCHARGE NOTE: ASHA TONG [facility] TITLE: OT-DISCHARGE NOTE MALINI STANDARD TITLE: [...] on this date, agreeable to OT session. [place] reporting that overnight he had pulled o ut his catheter because he didn't know that it had a balloon holding it in side. [place] continued to display confusion regarding his catheter after c onversations with card writer hand and medicine steam tank operator. GOAL(s) ADDRESSED THIS SESSION: +hygiene/grooming +toileting +total body dressing +functional mobility +bed mobility +falls/mobility OBJECTIVE/PROGRESS TOWARDS GOAL(s): cont inued to display impulsivity during session [...] for STS x2 with use of FWW. [place] demo nstrating similar performance with and without [...] hand held shower hose, a nd a international first officer. agreeable to use and able to demonstrate use of international first officer during se ssion. +Discharge recommendations provided to [...] provided to date: none Equipment still needed: international first officer, shower chair an d hand held shower hose ASSESSMENT: Manohar Mantilla is 72 yo referred to this sett ing of weakness. Vet's PMH includes HTN, alcohol abuse, CAD, CKD, Afib, and hearing loss. OT consulted for assessment and treatment. At baseline, lives in a home with his and son. [place] reported that he was IND in I/ADLs, however received assistance with tying shoes, buttoning his shirts and other fine motor tasks. [place] seen for f/up session on this date to ad dress multiple ADLs. [place] required SBA throughout session for ADLs . However SBT was completed indicating that has deficits in cognition. Recommen d a referral to [facility] assess deficits. Education provided on appropriate [...] 100% adherence during ADL transfers and tasks.-D/C AMMONIUM NITRATE CRYSTALLIZER GOALS TO BE MET BY DISCHARGE: [place] will maximize independence and safety wi th [...] to determine underlying impairment impacting safety and scouring train operator ment -Outpatient OT for UE ROM and [...] note with comments below. Nature of encounter: [place] being seen for treatment diagnosis of we [...] and approved by the primary OT. Encounter ms access database developer was approved by the primary OT and is accurate for the services provided. /mikal/ ASHA TONG MS, OTR/L OCCUPATIONAL THERAPIST Signed: 06/26/2022 15:20 Jun 26, 2022 08:12 NURSING INPATIENT NOTE: YOU MERCADO [facility] TITLE: [facility] NURSING PROGRESS NOTE STANDARD TITLE: NURSING INPATIENT NOTE DATE OF NOTE: JUN 26, 2022@08:12 ENTRY DATE: JUN 26, 2022@08:12:48 AUTHOR: YOU MERCADO EXP COSIGNER: URGENCY: STATUS: COMPLETED Nursing Shift Note Nursing care provided from 06/26 [phone] Highlights from shift: VSS. Cervical collar on. [...] 2022 03:13 NURSING INPATIENT NOTE: RAJNI MUNROE [facility] LOCAL TITLE: [facility] NURSING PROGRESS NOTE STANDARD TITLE: NURSING INPATIENT NOTE DATE OF NOTE: JUN 25, 2022@15:13 ENTRY DATE: JUN 25, 2022@15:13:30 AUTHOR: RAJNI MUNROE EXP COSIGNER: URGENCY: STATUS: COMPLETED Nursing Shift Note Nursing care provided from [phone] Highlights from shift: Mr. Mantilla had a [...] been indep of positioning. Sat in chair X2 /es/ RAJNI MUNROE RN STAFF NURSE Signed: 06/26/2022 00:19 Jun 25, 2022 02:14 INTERNAL MEDICINE INPATIENT NOTE: [facility] LOCAL TITLE: MEDICINE INPT PROGRESS NOTE STANDARD [...] rate. Lungs: Clear to auscultation bilaterally, no cat cracker operator ckles, no wheezing, no increased WOB. Abd: [...] pAfib on apixaban [facility] the setting of [facility] intoxication who was discharged from [facility] on 06/24/2022 and presented to [facility] for assistance with finding TC U. ACUTE ISSUES # C5 pedical fracture # Central cord syndrome # Mechanical fall Per records from [facility], patient had an accidental fall from [...] lack of skilled need and availability. - [place] x 3mo - Qshift neuro assessment - [...] leave in for 1 week w / mobile home laborer removal at home. - Continue GERONTOLOGY AIDE Keflex - Continue GERONTOLOGY AIDE tamsulosin - F/u w/ urology as outpatient [...] AFl burden w/ average HR 140 bpm. -radio division captain apixaban -radio division captain amiodrone -follows with EP, last since seen in 04/2022 #CKD Admission cr 1.3. Baseline 1.2-1.4. -CTM, avoid nephrotoxic agents #Seropositive RA -radio division captain prednisone 10 mg daily -radio division captain sulfasalazine 1000 mg BID OUTPATIENT FOLLOW [...] 25, 2022 01:15 NUTRITION CONSULT: LAUREN CARROLL [facility] LOCAL TITLE: NUTRITION CONSULT STANDARD TITLE: NUTRITION [...] 122.1(55.38)[22] BMI: 21 Usual body weight: 130#'s [place] body weight: 118#'s Recent weight changes: -14#'s [...] like any tacos, burritos, Mex[place] n food. [place] distractible, needs redirection to nutrition conversation at times. Noted H &P indicated alcohol use, replacing PO intake? Food preferences obtained Cultural/lutheran food preferences: None Food Allergies: None Feeding [...] Not Able to Assess for Fluid Accumulation Sanitary Inspector Strength Not Assessed Conclusion: Based on the above findings, the [place] meets the clinical characteristics to support a diagnosis of: Severe Chronic Disease R elated Malnutrition. Skin Condition: skin intact per 06/25 nursing note Luther Score 15, Nutrition subscore 2 Estimated Nutrient Needs based on actual body we ight of 52kg 8099-9327 calories/day 30-35 kcal/kg ~62 grams protein/day ~1.2 g/kg *Monitor renal f unction 0830-6015 ml fluids/day 1 ml/kcal consumed or pe [...] 12:53 ATTENDING ADMISSION EVALUATION NOTE: MARQUEZ FRANZ [facility] LOCAL TITLE: MEDICINE ADMISSION STAFF NOTE STANDARD [...] with C5 fx. Patient was treated at [facility] for C5 fx and central cord [...] with C5 fx. Patient was treated at [facility] for C5 fx and central cord syn drome 1. Weakness/Rehab: patient had outpatient follow -up plan established by [facility]; plan to follow-up with Neurosurgery as outpatient. - PT evaluated patient here. Full note p ending; but reportedly did not feel he required STR either; can likely discharge home N Osei [phone] /es/ MARQUEZ FRANZ MD PHYSICIAN Signed: 06/25/2022 13:02 Jun 25, 2022 10:34 OCCUPATIONAL THERAPY INITIAL EVALUATION NOTE: ASHA TONG [facility] AM [facility] TITLE: OT-EVALUATION NOTE MALINI STANDARD TITLE: [...] cognition i mpacting ADL/IADL safety and independence. [place] required SBA<>C GA during functional mobility and ambulation with FWW on this date. [place] de monstrated impulsivity throughout session, and favored [...] adherence during ADL transfers and tasks.-heather mosquera SENIOR LIVING GOALS TO BE MET BY DISCHARGE: [place] will maximize independence and safety wi th ADL/IADLs in order to discharge to least restrictive environment. DISCHARGE: [place] would benefit from s hort-term rehabilitation for 2-3 weeks stay prior to discharge to least restrictive environment to ad dress independence with basic self-cares and home safety. PATIENT EDUCATION ON TREATMENT PLAN: Patient indicates readiness to learn, verbalizes understanding, agreement and satisfaction with the treatment plan. Denies fur ther questions. CURRENT MEDICAL HISTORY: Benign essential hypertension (SCT 12634Voqqpzs loss (ICD-9-CM 389.9) HTN - Hypertension (SCT 46065206) Hyperlipidemia ([facility] 58618002) Alcohol abuse ([facility] 43253631) Cannabis abuse ([facility] 21862176) Pain in joint involving shoulder region Anemia ( [facility] 501927727) Jt Replcmnt Stat, Knee (ICD-9-CM V43.65)Gastroes ophageal reflux disease ([facility] 535526445) CAD - Coronary artery disease ([facility] 45642Mlcix no n-ST segment elevation myocardial infarction ([facility] 996151038) Chronic kidney disease ([facility] 281008649) Rib fract ure ([facility] 12607602) Pain of right shoulder joint (SCT 834714Ujpr landry n ([facility] 79149794) Ankle pain ([facility] 864984820) Rhinitis ([facility] 0478864 2) Seropositive rheumatoid arthritis (SCT 2Multifoc al atrial tachycardia ([facility] 55246783) Elevated liver enzymes level ([facility] 649301Pdqupiha al atrial fibrillation ([facility] 895785296) Long-term current use of anticoagulant (Drug mon itoring done ([facility] 787968713) SUBJECTIVE: [place] approach ed sitting EOB on this date. [place] agreeable to OT session. [place] tangential with conversation, a nd required redirection to complete full OT evaluation. [place] becoming confused throughout session on the role of card writer hand requiring re-education on multipl e occassions. CONTEXT [...] with use of FWW and grab bar. [place] demonstrating impulsivity when sitting down. -UE Dressing: [...] +pronation:3/5 +wrist flexion/extension: 3/5 +finger flexion/extension: 3/5 +Sanitary Inspector strength: 4/5 Coordination: WFL Sensation: Intact in [...] 3/5 +wrist flexion/extension: 3/5 +finger flexion/extension: 3/5 +Sanitary Inspector strength: 4/5 Coordination: WFL Sensation: Intact in [...] necessary to enable completion of evaluation component. /abbie TONG MS, OTR/L OCCUPATIONAL THERAPIST Signed: 06/25/2022 [...] and approved by the primary OT. Encounter ms access database developer was approved by the primary OT and is accurate for the services provided. /mikal/ ASHA TONG MS, OTR/L OCCUPATIONAL THERAPIST Signed: 06/25/2022 15:58 Jun 25, 2022 03:58 NURSING INPATIENT NOTE: JOSE ALBERTO OSCAR [facility] TITLE: SARAH NURSING PROGRESS NOTE STANDARD TITLE: [...] Skin Interventions performed this shift: Patient turned [id number] or as appropriate while in bed. Patient's heels elevated with pressure relief b oots or pillows under calves. /mikal/ JOSE ALBERTO OSCAR LPN LICENSED PRACTICAL NURSE Signed: 06/25/2022 07:40 06/25/2022 ADDENDUM STATUS: COMPLETED Cared for pt 06/25 8700-1153. Doing well d uring this time. Pt [...] 25, 2022 02:40 NURSING NOTE: YOU MERCADO [facility] LOCAL TITLE: ALAES SKIN INSPECTION/ASSESSMENT STANDARD TITLE: NURSING NOTE DATE [...] 02:28 NURSING ADMISSION EVALUATION NOTE: SHAD MERCADO [facility] LOCAL TITLE: VAAES ACUTE INPATIENT NSG ADMISSIO N SCREEN STANDARD TITLE: NURSING ADMISSION EVALUATION NOT E DATE OF NOTE: JUN 25, 2022@02:28 ENTRY DATE: JUN 25, 2022@02:28:40 AUTHOR: YOU MERCADO COSIGNER: URGENCY: STATUS: COMPLETED ALLERGY/ADVERSE DRUG REACTION (ADR) REVIEW (MRT 5) FACILITY ALLERGY/ADR -------- No Remote Allergy/ADR Data available for this [facility] Allergy/Adverse Drug Reaction Review to be condu cted by: Nurse Results of Allergy/ADR Review: Allergy/Adverse Drug Reaction list confirmed MEDICATION REVIEW (MRR1) Did patient bring medication(s) from home? No Medication Review to be conducted by Pharmacist Medication Review to be conducted by Provider GENERAL INFORMATION Admission information given by: Patient Preferred Language for Discussing Healthcare: Faroese Preferred mode of communication: Verbal Items at bedside: Glasses/contacts: glasses Other: wallet, flip phone, clothes, shoes INFECTIOUS DISEASE RISK SCREEN Travel Screen: Have you traveled within the [facility] with in the last 21 days? No Have you traveled outside the [facility] wit hin the last 21 days? No [...] special dieta ry needs, ethnic, cultural or lutheran preferences affecting dietary needs? No Nutrition Consult [...] leave immed iately: No SUICIDE SCREEN The [place] Suicide Severity Rating Scale (C-SSRS) has been [...] Advance Directive: No SPIRITUAL ASSESSMENT Are there lutheran practices or spiritual conc erns you want the plastic dolls mold filler, your provider, and other health care team membe rs to know? Yes Explain: would like to see plastic dolls mold filler, takes communion Other Sports Coach Or Instructor consult ordered. ANTICIPATED DISCHARGE NEEDS Where do [...]
--- OUTSIDE RECORDS SUMMARY | 2022-10-13 17:32 | XMS_ITS | Encounter Summary ---
:1950 Author Organization [facility] Address [address] [place] [address] Support Name Relationship Address Phone MADELIN MANTILLA Unavailable [phone] [place] [address] MADELIN MANTILLA Unavailable [phone] [place] [address] DHAVAL MANTILLA Unavailable [address] [place] [address] Insurance Providers: All historical and current Section [...] MEDICARE MEDICARE PART Jul 18, PART B [id number] ANNALEE BUSTILLO (WNR) (M) B [id number] ,REGI MEDICARE MEDICARE PART Apr 17, PART A [id number] ANNALEE BUSTILLO (WNR) (M) A 2012A [...] The data comes from all ID treatment [facility]. Appointment Date/Time Appointment Type Appointment Facili ty Name Jul 16, 2022 12:20 PM AMBULATORY - NONE [facility] Jul 17, 2022 10:22 PM AMBULATORY - NONE [facility] Jul 19, 2022 07:00 AM AMBULATORY - NONE [facility] Jul 19, 2022 08:00 AM AMBULATORY - MEDICINE [facility] CS Jul 19, 2022 09:00 AM AMBULATORY - MEDICINE [facility] CS Jul 24, 2022 11:00 AM AMBULATORY - MEDICINE [facility] CS Jul 25, 2022 09:00 AM AMBULATORY - NONE [facility] Jul 25, 2022 10:30 AM AMBULATORY - NONE [facility] Jul 25, 2022 11:00 AM AMBULATORY - SURGERY [facility] S Jul 25, 2022 12:30 PM AMBULATORY - NONE [facility] Aug 05, 2022 11:00 AM AMBULATORY - NONE [facility] Aug 06, 2022 10:00 AM AMBULATORY - SURGERY [facility] S Sep 18, 2022 08:00 AM AMBULATORY - NONE [facility] Sep 18, 2022 09:15 AM AMBULATORY - NONE [facility] Sep 18, 2022 11:00 AM AMBULATORY - NONE [facility] Oct 21, 2022 01:00 PM AMBULATORY - NONE [facility] Oct 21, 2022 01:30 PM AMBULATORY - NONE [facility] Oct 21, 2022 02:30 PM AMBULATORY - NONE [facility] Oct 21, 2022 03:00 PM AMBULATORY - SURGERY [facility] S Oct 21, 2022 03:30 PM AMBULATORY - NONE [facility] Active, Pending, and Scheduled [...] The data comes from all ID treatment [facility]. Test Date/Time Test Type Test Details Facility Name Jun 24, 2022 06:55 PM Laboratory - Chemistry EXTRA BLUE TUBE [facility] Order PLASMA WC Jun 24, 2022 06:55 PM Laboratory - Chemistry EXTRA GOLD GEL TUBE [facility] Order SERUM WC Jun 24, 2022 06:55 PM Laboratory - Chemistry EXTRA PURPLE TUBE [facility] Order BLOOD WC Jun 24, 2022 06:55 PM Laboratory - Chemistry EXTRA MINT TUBE [place] [facility] Order PLASMA WC Lab Results: +/- 30 days of the [...] Interpretation Reference Range Comment Jul 19, 2022 [facility] RHEUMATOLOGY CHEM PANEL Spec imen Type: PLASMA 08:08 AM No comment enter ed. Ordering Provid er: JENNA LUIS Report Released Date/Time: Jan 11, 2022 11:04 AM Reporting Lab: [facility] [address] Performing Lab: [facility] [address] CREATININE 1.5 H 0.7-1.2 ALKALINE PHOSPHATASE 72 40-150 ALT/SGPT 12 <55 AST/SGOT 11 <34 C-REACTIVE PROTEIN 5.28 H <5.00 CREAT EGFR(CKD-EPI) 49 L >60 Jul 19, 2022 [facility] RHEUMATOLOGY HEME PANEL Spec imen Type: BLOOD 08:08 AM No comment enter ed. Ordering Provid er: JENNA LUIS Report Released Date/Time: Jan 11, 2022 11:04 AM Reporting Lab: [facility] [address] Performing Lab: [facility] [address] WBC 13.17 H 4.0-11.0 RBC 3.21 L [...] H 5-15 Jun 24, 2022 09:29 PM [facility] URINALYSIS Specim en Type: URINE No comment enter ed. Ordering Provid er: JAYDE MENDOZA Report Released Date/Time: Jun 24, 2022 06:55 PM Reporting Lab: [facility] [address] [facility] [address] Performing Lab: [facility] [address] URINE COLOR YELLOW SPECIFIC GRAVITY 1.039 H [...] 25 NEGATIVE Jun 24, 2022 08:24 PM [facility] AST/SGOT Specim en Type: PLASMA No comment enter ed. Ordering Provid er: JAYDE MENDOZA Report Released Date/Time: Jun 24, 2022 08:09 PM Reporting Lab: [facility] [address] [facility] [address] Performing Lab: [facility] [address] [facility] [address] AST/SGOT 19 <34 Jun 24, 2022 08:24 PM [facility] PROTEIN,TOTAL Specim en Type: PLASMA No comment enter ed. Ordering Provid er: JAYDE MENDOZA Report Released Date/Time: Jun 24, 2022 08:09 PM Reporting Lab: [facility] [address] [facility] [address] Performing Lab: [facility] [address] [facility] [address] PROTEIN,TOTAL 6.8 6.0-8.3 Jun 24, 2022 08:24 PM [facility] POTASSIUM Specim en Type: PLASMA No comment enter ed. Ordering Provid er: JAYDE MENDOZA Report Released Date/Time: Jun 24, 2022 08:09 PM Reporting Lab: [facility] [address] [facility] [address] Performing Lab: [facility] [address] [facility] [address] POTASSIUM 4.9 3.5-5.1 Jun 24, 2022 07:40 [facility] PROTHROMBIN TIME/INR Spec imen Type: PLASMA PM No comment enter ed. Ordering Provid er: JAYDE MENDOZA Report Released Date/Time: Jun 24, 2022 06:55 PM Reporting Lab: [facility] [address] [facility] [address] Performing Lab: [facility] [address] [facility] [address] .INR 1.1 0.8-1.1 .PT 12.1 9.4-12.5 Jun 24, 2022 07:32 [facility] COVID-19 DIAGNOSTIC Speci men Type: NASOPHARYNGEAL PM PANEL (CEPHEID) Comment: Cepheyanira rodriguez GeneXpert (618) Ordering Provid er: JAYDE MENDOZA Report Released Date/Time: Jun 24, 2022 06:55 PM Reporting Lab: [facility] [address] [facility] [address] Performing Lab: [facility] [address] [facility] [address] COVID-19 (CEPHEID) Not Detected Not Dete cted Jun 24, 2022 07:29 PM [facility] CBC & DIFF Specim en Type: BLOOD Comment: [place]um[place] d Platelets. Invitro artefact. No clinical significance. Platelet count may be higher than stated value. Plt count = 214 K-cmm Manual Differential Performed Ordering Provid er: JAYDE MENDOZA Report Released Date/Time: Jun 24, 2022 06:55 PM Reporting Lab: [facility] [address] [facility] [address] Performing Lab: [facility] [address] [facility] [address] WBC 9.67 4.0-11.0 RBC 3.36 L 4.6-6.2 [...] canc .RBC MORPHOLOGY PRESENT Jun 24, 2022 [facility] COMPREHENSIVE METABOLIC Spec imen Type: PLASMA 07:29 PM PANEL+MG Comment: Cancel lation reported to: Rajni Giraldo RN on 06/24/22@2004 by [place]. Test result cancelled due to hemolysis interference in sample. Ordering Provid er: JAYDE MENDOZA Report Released Date/Time: Jun 24, 2022 06:55 PM Reporting Lab: [facility] [address] Performing Lab: [facility] [address] CREATININE 1.3 H 0.7-1.2 UREA NITROGEN 19 [...] smoking and tobacco-related health factors from the [facility] where the Encounter took place.Current Smoking Status This section includes the most current smoking, or tobacco-related health factor, from the ID facility where the Encounter took place. Date/Time Current Smoking Status Comment Facility Mar 05, 2022 01:30 PM ID-TOBACCO FORMER USER [facility] Tobacco Use History This section includes a history of the smoking, or tobacco- related health factors, that were collected on or before the date of the Encounter. The data comes from the ID facility where the Encounter took place. Date/Time Smoking Status/Tobacco Use Comment Katherine gillis Mar 05, 2022 01:30 PM ID-TOBACCO QUIT 1 TO < 5 YRS [facility] Jun 01, 2021 02:00 PM VA-TOBACCO NEVER USED [place] [facility] Dec 31, 2019 10:54 AM VA-TOBACCO FORMER USER [facility] Dec 31, 2019 10:54 AM VA-TOBACCO QUIT < 1 YEAR [place] [facility] March 23, 2019 09:53 AM VA-TOBACCO FORMER USER [facility] March 23, 2019 09:53 AM VA-TOBACCO QUIT < 1 YEAR M [place] [facility] Jun 10, 2018 10:00 AM CURRENT TOBACCO USER [place] [facility] May 10, 2018 07:27 PM INPT TOBACCO COUNSELING [place] [facility] May 10, 2018 07:27 PM INPT TOBACCO USER [place] [facility] Aug 29, 2017 09:55 AM FORMER TOBACCO USE <1Y [facility] May 26, 2017 10:51 PM INPT TOBACCO COUNSELING [place] [facility] May 26, 2017 10:51 PM INPT TOBACCO USER [place] [facility] May 03, 2017 09:34 PM INPT TOBACCO COUNSELING [place] [facility] May 03, 2017 09:34 PM INPT TOBACCO USER [place] [facility] Sep 18, 2016 01:36 PM FORMER TOBACCO USE <1Y [facility] Aug 10, 2016 03:54 PM INPT TOBACCO USE - PT REFUSED [facility] Aug 01, 2016 06:48 PM INPT TOBACCO COUNSELING [place] [facility] Aug 01, 2016 06:48 PM INPT TOBACCO USER [place] [facility] Feb 08, 2015 09:57 AM CURRENT TOBACCO USER [place] [facility] [facility] Nov 29, 2013 10:37 AM CURRENT TOBACCO USER [place] [facility] Nov 26, 2013 11:09 AM PATIENT IS TOBACCO USER [place] [facility] Nov 27, 2012 12:12 PM CURRENT TOBACCO USER [place] [facility] Dec 27, 2011 09:44 AM CURRENT TOBACCO USER [place] [facility] Jan 22, 2011 02:38 PM CURRENT TOBACCO USER [place] [facility] Mar 13, 2010 12:48 PM CURRENT TOBACCO USER [facility] Advance Directives: All historical and [...] CLINICAL WARNING [facility] Radiology Reports: +/- 30 days of the [...] treatment facilities. Date/Time Radiology Report Provider Source Jul 25, 2022 09:21 AM CERVICAL SPINE 4 OR 5 VIEWS: DARRYL WADDELL [facility] REGI MANTILLA KRISTOFER [id number] -APR 28, 194 8 M Exm Date: JUL 25, 2022@09:21 Req Phys: KALI ELLINGTON N Pat Loc: [facility] NEUROS URG STAFF CONSULT (R Img Loc: MAIN X-RAY Service: Unknown (Case [id number] COMPLETE) CERVICAL SPINE 4 OR 5 VIEWS (RAD Detailed) CPT:78848 Reason for Study: C5 fracture Clinical History: Can have completed on same day as neurosurg cli car appointment. IS NOT under investigation for COVID-19 or is COVID-19 negative ETOH use s/p mechanical fall causing C5 pedical fracture, central cord syndrome Responsible provider name and phone number to notify for critical findings if other than u ser placing the order and pager listed below: User placing orde rs pager: [phone] LAST CREATININE 1.3 H (06/24/22) Report Status: Verified Date Reported: JUL 25, 2022 Date Verified: JUL 25, 2022 Director Of Casework Department E-Sig:/ES/DARRYL WADDELL MD Report: EXAMINATION: CERVICAL SPINE 4 OR 5 VIEWS, 022 9:21 AM COMPARISON: CT of the neck dated 07/16/2018. HISTORY: Reason for Study: C5 fracture Can have completed on same day as neurosurg cli car appointment. [place] IS NOT under investigation for COVID-19 or is COVID-19 negative ETOH use s/p mechanical fall causing C5 pedical fracture, central cord syndrome Responsible provider name and phone number to notify for critical findings if other than u ser placing the order and pager listed below: User roe Findings: 5 views of the cervical spine compared to soft tissue neck CT 07/16/2018. 3 mm of anterolisthesis of C2 on C3, this appears new from prior CT. 2 mm retrolisthesis of C5 on C6. Fusion of the C3 and C4 vertebral bodies is unchanged from prior CT examination. Moderate to severe intervertebral disc height l oss at C4-5, C5-6 and C6-7, similar to prior CT. Soft tissue and osseous structures limited evaluation of the lower cervical spine on the swimmer's standing view. Subtle lucency is suggested of t he right C5 pedicle on the oblique radiograph which may rep resent the reported C5 pedicle fracture, this would be bet ter evaluated with CT. Right neural foraminal is suggested at C4-5 and C5-6, left neural foraminal stenosis is suggested at C3-4 and C6-7 no prevertebral soft tissue swelling is identified . Carotid arterial calcification. Thoracic aortic calcification. Impression: 1. 3 mm of anterolisthesis of C2 on C3, new fro m CT neck 07/16/2018. Recommend comparison with interval o utside imaging given reported history of mechanical fall with C5 pedicle fracture. If comparison imaging cannot be obtai thai, consider MRI or CT for further evaluation. 2. Subtle lucency involving the right C5 pedicl e may represent the reported C5 pedicle fracture, this would be better evaluated with CT. 3. Multilevel degenerative changes of the spine . Unchanged fusion of the C3-4 vertebral bodies from prior Primary Interpreting Staff: DARRYL WADDELL MD, RADIOLOGIST (Director Of Casework Department) /JRT Encounter Notes: All associated encounter notes This section contains the clinical notes associated to the Encounter. Date/Time Encounter Note(s) Provider Source Jun 18, 2022 09:15 AM NONVA NOTE: TYSHAWN WILKES IS [facility] LOCAL TITLE: COMMUNITY CARE-ELZBIETA SELF PRESENTIN G CARE COORD PLAN STANDARD TITLE: NONVA NOTE DATE OF NOTE: JUN 18, 2022@09:15 ENTRY DATE: JUL 15, 2022@14:58:30 AUTHOR: TYSHAWN WILKES COSIGNER: URGENCY: STATUS: COMPLETED COMMUNITY CARE-ELZBIETA SELF PRESENTING CARE CO ORD PLAN NOTE Has ADDENDA Emergency Notification Intake Date Presenting to the Facility: Jun Method of Contact: Notified from [employer] Workflow Management worklist Notification ID: [id number] [facility] Referral #: [facility] Name: Hospital: [facility] Address: City: [place]: [place] Zip Code: Phone : [facility] Facility Point of Contact: Name: Anna Canas RN Chief complaint: C5-C7 FX W/CORD INJURY Primary Diagnosis: Disposition Discharged Date of discharge: Jun Discharge to home POM Review /mikal/ TYSHAWN WILKES Prop Drawer(AOD) Signed: 07/15/2022 15:00 Receipt Acknowledged By: 07/19/2022 10:41 /mikal/ PRANAY WOMACK RN REGISTERED NURSE 07/19/2022 ADDENDUM STATUS: COMPLETED This is a duplicate notification. Please see oth er COMMUNITY CARE-ELZBIETA SELF PRESENTING CARE COORD PLAN NOTE dated 06/18/22 /mikal/ PRANAY WOMACK RN REGISTERED NURSE Signed: 07/19/2022 10:42
--- OUTSIDE RECORDS SUMMARY | 2022-10-13 17:32 | XMS_ITS | Encounter Summary ---
:1950 Author Organization [facility] Address [address] [place] [address] Support Name Relationship Address Phone MADELIN MANTILLA Unavailable [address] [phone] [place] [address] MADELIN MANTILLA Unavailable [address] [phone] [place] [address] DHAVAL MANTILLA Unavailable [address] [place] [address] Insurance Providers: All historical and current Section [...] MEDICARE MEDICARE PART Jul 18, PART B [id number] ANNALEE BUSTILLO (WNR) (M) B 2014 24A [phone] ,REGI MEDICARE MEDICARE PART Apr 17, PART A [id number] ANNALEE BUSTILLO (WNR) (M) A [id number] [id number] ,REGI Selected Encounter This section includes the information on record at [place] for the Encounter. Date/Time Encounter Type Encounter Reason Provider Source Description Jul 16, 2022 12:20 Outpatient ADMIN PAT ACTIVPRANAY MEDINA PM Encounter (MASNONCT) IHE Encounter Template Text not used by [place] Plan of Treatment: Future Appointments (+ 6 [...] 20 appointments. The data comes from all [place] treatment [facility]. Appointment Date/Time Appointment Type Appointment Facili ty Name Jul 17, 2022 10:22 PM AMBULATORY - NONE [facility] Jul 19, 2022 07:00 AM AMBULATORY - NONE [facility] Jul 19, 2022 08:00 AM AMBULATORY - MEDICINE [facility] Jul 19, 2022 09:00 AM AMBULATORY - MEDICINE [facility] Jul 24, 2022 11:00 AM AMBULATORY - MEDICINE [facility] Jul 25, 2022 09:00 AM AMBULATORY - NONE [facility] Jul 25, 2022 10:30 AM AMBULATORY - NONE [facility] Jul 25, 2022 11:00 AM AMBULATORY - SURGERY [facility] Jul 25, 2022 12:30 PM AMBULATORY - NONE [facility] Aug 05, 2022 11:00 AM AMBULATORY - NONE [facility] Aug 06, 2022 10:00 AM AMBULATORY - SURGERY [facility] Sep 18, 2022 08:00 AM AMBULATORY - NONE [facility] Sep 18, 2022 09:15 AM AMBULATORY - NONE [facility] Sep 18, 2022 11:00 AM AMBULATORY - NONE [facility] Oct 21, 2022 01:00 PM AMBULATORY - NONE [facility] Oct 21, 2022 01:30 PM AMBULATORY - NONE [facility] Oct 21, 2022 02:30 PM AMBULATORY - NONE [facility] Oct 21, 2022 03:00 PM AMBULATORY - SURGERY [facility] Oct 21, 2022 03:30 PM AMBULATORY - NONE [facility] Nov 20, 2022 09:30 AM AMBULATORY - NONE [facility] Active, Pending, and Scheduled Orders This section includes a listing of several types of active, pending, and scheduled orders, including clinic medications orders, diagnostic test orders, procedure orders and consult orders; where the start date of the order is 45 days before the date of the Encounter or 45 days after the date of the Encounter. The data comes from all [place] treatment [facility]. Test Date/Time Test Type Test Details Facility Name Jun 24, 2022 06:55 PM Laboratory - Chemistry EXTRA BLUE TUBE [facility] Order PLASMA WC Jun 24, 2022 06:55 PM Laboratory - Chemistry EXTRA GOLD GEL TUBE [facility] Order SERUM WC Jun 24, 2022 06:55 PM Laboratory - Chemistry EXTRA PURPLE TUBE [facility] Order BLOOD WC Jun 24, 2022 06:55 PM Laboratory - Chemistry EXTRA MINT TUBE [facility] Order PLASMA WC Lab Results: +/- 30 days of the encounter This section includes the Chemistry and Hematology Lab Results on record with [place] for the patient. Radiology Reports and Pathology Reports are provided separately, in subsequent sections.Lab Results This section contains the Chemistry/Hematology Results that were resulted 30 days before or 30 daysafter the date of the Encounter. Date/Time Source Result Type Result - Unit Interpretation Reference Range Comment Jul 19, 2022 [facility] RHEUMATOLOGY CHEM PANEL Spec imen Type: PLASMA 08:08 AM No comment enter ed. Ordering Provid er: JENNA LUIS Report Released Date/Time: Jan 11, 2022 11:04 AM Reporting Lab: [facility] [id number] Performing Lab: [facility] [id number] CREATININE 1.5 H 0.7-1.2 ALKALINE PHOSPHATASE 72 40-150 ALT/SGPT 12 <55 AST/SGOT 11 <34 C-REACTIVE PROTEIN 5.28 H <5.00 CREAT EGFR(CKD-EPI) 49 L >60 Jul 19, 2022 [facility] RHEUMATOLOGY HEME PANEL Spec imen Type: BLOOD 08:08 AM No comment enter ed. Ordering Provid er: JENNA LUIS Report Released Date/Time: Jan 11, 2022 11:04 AM Reporting Lab: [facility] [id number] Performing Lab: [facility] [address] WBC 13.17 H 4.0-11.0 RBC 3.21 L [...] H 5-15 Jun 24, 2022 09:[address] [facility] URINALYSIS Specim en Type: URINE No comment enter ed. Ordering Provid er: JAYDE MENDOZA Report Released Date/Time: Jun 24, 2022 06:55 PM Reporting Lab: [facility] [address] [facility] [address] Performing Lab: [facility] [address] [facility] [phone] URINE COLOR YELLOW SPECIFIC GRAVITY 1.039 H [...] NEGATIVE Jun 24, 2022 08:[address] [facility] AST/SGOT Specim en Type: PLASMA No comment enter ed. Ordering Provid er: JAYDE MENDOZA Report Released Date/Time: Jun 24, 2022 08:09 PM Reporting Lab: [facility] [address] [facility] [address] Performing Lab: [facility] [address] [facility] [address] AST/SGOT 19 <34 Jun 24, 2022 08:[address] [facility] PROTEIN,TOTAL Specim en Type: PLASMA No comment enter ed. Ordering Provid er: JAYDE MENDOZA Report Released Date/Time: Jun 24, 2022 08:09 PM Reporting Lab: [facility] [address] [facility] [address] Performing Lab: [facility] [address] [facility] [address] PROTEIN,TOTAL 6.8 6.0-8.3 Jun 24, 2022 08:[address] [facility] POTASSIUM Specim en Type: PLASMA No comment enter ed. Ordering Provid er: JAYDE MENDOZA Report Released Date/Time: Jun 24, 2022 08:09 PM Reporting Lab: [facility] [address] [facility] [address] Performing Lab: [facility] [address] [facility] [address] POTASSIUM 4.9 3.5-5.1 Jun 24, 2022 07:40 [facility] PROTHROMBIN TIME/INR Spec imen Type: PLASMA PM No comment enter ed. Ordering Provid er: JAYDE MENDOZA Report Released Date/Time: Jun 24, 2022 06:55 PM Reporting Lab: [facility] [address] [facility] [address] Performing Lab: [facility] [address] [facility] [address] .INR 1.1 0.8-1.1 .PT 12.1 9.4-12.5 Jun 24, 2022 07:32 [facility] COVID-19 DIAGNOSTIC Speci men Type: NASOPHARYNGEAL PM PANEL (CEPHEID) Comment: Cepheyanira rodriguez GeneXpert (618) Ordering Provid er: JAYDE MENDOZA Report Released Date/Time: Jun 24, 2022 06:55 PM Reporting Lab: [facility] [address] [facility] [address] Performing Lab: [facility] [address] [facility] [address] COVID-19 (CEPHEID) Not Detected Not Dete cted Jun 24, 2022 07:[address] [facility] CBC & DIFF Specim en Type: BLOOD Comment: [place] d Platelets. Invitro artefact. No clinical significance. Platelet count may be higher than stated value. Plt count = 214 K-cmm Manual Differential Performed Ordering Provid er: JAYDE MENDOZA Report Released Date/Time: Jun 24, 2022 06:55 PM Reporting Lab: [facility] [address] [facility] [address] Performing Lab: [facility] [address] [facility] [address] WBC 9.67 4.0-11.0 RBC 3.36 L 4.6-6.2 [...] .RBC MORPHOLOGY PRESENT Jun 24, 2022 [facility] COMPREHENSIVE METABOLIC Spec imen Type: PLASMA 07:29 PM PANEL+MG Comment: Cancel lation reported to: Rajni Giraldo RN on 06/24/22@2004 by [place]. Test result cancelled due to hemolysis interference in sample. Ordering Provid er: JAYDE MENDOZA Report Released Date/Time: Jun 24, 2022 06:55 PM Reporting Lab: [facility] [address] Performing Lab: [facility] [address] CREATININE 1.3 H 0.7-1.2 UREA NITROGEN 19 [...] tobacco-related health factors from the [facility] where the Encounter took place.Current Smoking Status This section includes the most current smoking, or tobacco-related health factor, from the [place] facility where the Encounter took place. Date/Time Current Smoking Status Comment Facility Mar 05, 2022 01:30 PM [place]-TOBACCO FORMER USER [facility] Tobacco Use History This section includes a history of the smoking, or tobacco- related health factors, that were collected on or before the date of the Encounter. The data comes from the [place] facility where the Encounter took place. Date/Time Smoking Status/Tobacco Use Comment Katherine gillis Mar 05, 2022 01:30 PM [place]-TO[place]AC[place] QUIT 1 TO < [address] [facility] Jun 01, 2021 02:00 PM [place]-TO[place]CO NEVER USED [facility] [facility] Dec 31, 2019 10:54 AM VA-TOBACCO FORMER USER [facility] Dec 31, 2019 10:54 AM VA-TOBACCO QUIT < 1 YEAR [place] [facility] [facility] March 23, 2019 09:53 AM VA-TOBACCO FORMER USER [facility] March 23, 2019 09:53 AM VA-TOBACCO QUIT < 1 YEAR [place] [facility] Jun 10, 2018 10:00 AM CURRENT TOBACCO USER [place] [facility] May 10, 2018 07:27 PM IN[place] TOBACCO COUNSELING [place] [facility] May 10, 2018 07:27 PM INPT TOBACCO USER [place] [facility] Aug 29, 2017 09:55 AM FORMER TOBACCO USE <1Y [facility] May 26, 2017 10:51 PM INPT TOBACCO COUNSELING [place] [facility] May 26, 2017 10:51 PM INPT TOBACCO USER [place] [facility] May 03, 2017 09:34 PM INPT TOBACCO COUNSELING [place] [facility] May 03, 2017 09:34 PM INPT TOBACCO USER [place] [facility] Sep 18, 2016 01:36 PM FORMER TOBACCO USE <1Y [facility] Aug 10, 2016 03:54 PM INPT TOBACCO USE - PT REFUSED [facility] Aug 01, 2016 06:48 PM INPT TOBACCO COUNSELING [place] [facility] Aug 01, 2016 06:48 PM INPT TOBACCO USER [place] [facility] Feb 08, 2015 09:57 AM CURRENT TOBACCO USER [place] [facility] Nov 29, 2013 10:37 AM CURRENT TOBACCO USER [place] [facility] Nov 26, 2013 11:09 AM PATIENT IS TOBACCO USER [place] [facility] Nov 27, 2012 12:12 PM CURRENT TOBACCO USER [facility] [facility] Dec 27, 2011 09:44 AM CURRENT TOBACCO USER [place] [facility] Jan 22, 2011 02:38 PM CURRENT TOBACCO USER [facility] Mar 13, 2010 12:48 PM CURRENT [facility]BACCO [facility]ER [facility] Advance Directives: All historical and current Section Date Range: From patient's date of to the date document was created. This section includes ALL of a patient's completed or amended [place] Advance and Rescinded Directives. The entries below indicate that a directive exists for the patient, but an actual copy is not included with this document. The data comes from all [place] facilities. Date Advance Directives Provider Source Feb 25, 2018 ADVANCE DIRECTIVE [facility] Feb 24, 2018 ADVANCE DIRECTIVE DISCUSSION [facility] May 26, 2017 CLINICAL [address] MAGO CONTRER[address] [facility] May 03, 2017 CLINICAL [address]IAH ENGLE [facility] Aug 10, 2016 CLINICAL WARNING ISABEL BARCENAS [facility] Aug 02, 2016 CLINICAL WARNING [facility] Radiology Reports: +/- 30 days of [...] the Encounter. The data comes from all [place] treatment facilities. Date/Time Radiology Report Provider Source Jul 25, 2022 09:21 AM CERVICAL SPINE 4 OR 5 VIEWS: DARRYL WADDELL [facility] REGI MANTILLA KRISTOFER [id number] -APR 28, 194 8 M Exm Date: JUL 25, 2022@09:21 Req Phys: KALI ELLINGTON N Pat Loc: [facility] NEUROS URG STAFF CONSULT (R Img Loc: MAIN X-RAY Service: Unknown (Case [id number] COMPLETE) CERVICAL SPINE 4 OR 5 VIEWS (RAD Detailed) CPT:02151 Reason for Study: C5 fracture Clinical History: [...] listed below: User placing orde rs pager: [phone] LAST CREATININE 1.3 H (06/24/22) Report Status: Verified Date Reported: JUL 25, 2022 Date Verified: JUL 25, 2022 Paste Worker E-Sig:/ES/DARRYL WADDELL MD Report: EXAMINATION: CERVICAL SPINE 4 OR 5 VIEWS, 022 9:21 AM COMPARISON: CT of the neck dated 07/16/2018. HISTORY: Reason for Study: C5 fracture Can have completed on same day as neurosurg cli car appointment. [place] IS NOT under investigation for COVID-19 or [...] Primary Interpreting Staff: DARRYL WADDELL MD, RADIOLOGIST (Paste Worker) /JRT Encounter Notes: All associated encounter notes This section contains the clinical notes associated to the Encounter. Date/Time Encounter Note(s) Provider Source Jul 16, 2022 12:21 PM [facility] COMM[facility]ITY CARE-ELZBIETA SELF PRESENTIN G CARE COORD PLAN STANDARD TITLE: NONVA NOTE DATE OF NOTE: JUL 16, 2022@12:21 ENTRY DATE: JUL 16, 2022@12:21:37 AUTHOR: SAMREEN HERMAN EXP COSIGNER: URGENCY: STATUS: COMPLETED COMMUNITY CARE-ELZBIETA SELF PRESENTING CARE CO ORD PLAN NOTE Has ADDENDA Emergency Notification Intake Date Presenting to the Facility: Jun Method of Contact: Phone Centralized Call Center Notified [facility] Name: Hospital: [facility] Address: [address] City: [place] State: [place] Zip Code: [address] Phone : [facility] Point of Contact: Name: RUBÉN ([facility]) Chief complaint: COPD EXACERBATION Primary Diagnosis: COPD EXACERBATION Disposition Unknown at time of intake note entry /es/ SAMREEN HERMAN MEDICAL GALVANIZER Signed: 07/16/2022 12:23 Receipt Acknowledged By: 07/20/2022 09:05 /es/ PRANAY WOMACK RN REGISTERED NURSE 07/16/2022 ADDENDUM STATUS: COMPLETED Returned call to Rubén and let her know that ere are no beds available for transfer to [facility]. She ask ed about home oxygen for , provided her with contact for Jacey Kang respiratory therapi . [phone] /mikal/ LUCIO MARK RN [facility] UTILIZATION MANAGEMENT Signed: 07/16/2022 13:01 07/20/2022 ADDENDUM STATUS: COMPLETED Records are currently unavailable in [facility] under [facility] Summaries and Documents widget. Requested records from the [facility], will send to [facility] for importing once received. Also cosigning the PACT RN for awareness of episode of care. /es/ PRANAY WOMACK RN REGISTERED NURSE Signed: 07/20/2022 09:07 Receipt Acknowledged By: 07/23/2022 08:44 /es/ STUART BERNSTEIN RN REGISTERED NURSE for HERI BRAUN 07/23/2022 ADDENDUM STATUS: COMPLETED Admitted to: [facility] Admission date: 07/16/22 Chief Complaint/Dx: COPD exacerbation Admit H&P uploaded to [place] [facility] RN will follow Opal rodriguez during this hospitalization. DC summary will be uploaded into the [facility] medical record when a vailable. /mikal/ PRANAY WOMACK RN REGISTERED NURSE Signed: 07/23/2022 09:09 Receipt Acknowledged By: 07/23/2022 11:04 /mikal/ STUART BERNSTEIN RN REGISTERED NURSE for HERI BRAUN 07/25/2022 ADDENDUM STATUS: COMPLETED Hospital Discharge note Hospital: [facility] Admit date: 07/16/22 Discharge date: 07/17/22 Discharge diagnosis: Acute exacerbation of COPD, Hypoxia Disposition: home Follow up: PCP 2-7 days Information obtained from in dical records received and sent to [facility] for import. Pt has been seen for follow up at time of this n miguele /mikal/ PRANAY WOMACK RN REGISTERED NURSE Signed: 07/25/2022 06:49
--- OUTSIDE RECORDS SUMMARY | 2022-10-13 17:33 | XMS_ITS | Encounter Summary ---
:1950 Author Organization [facility] Address [address] [place] [address] Support Name Relationship Address Phone MADELIN MANTILLA Unavailable [address] [phone] [place] [address] MADELIN MANTILLA Unavailable [address] [phone] [place] [address] DHAVAL MANTILLA Unavailable [address] [place] [address] Insurance Providers: All historical and current Section [...] MEDICARE MEDICARE PART Jul 18, PART B [id number] ANNALEE Cardenas ATIENT (WNR) (M) B [id number] [id number] ,REGI MEDICARE MEDICARE PART Apr 17, PART A [id number] ANNALEE Cardenas ATIENT (WNR) (M) A 2012A [phone] ,REGI Selected Encounter This section includes the information on record at [place] for the Encounter. Date/Time Encounter Type Encounter Reason Provider Source Description Jul 23, 2022 QNHP OL DIG CLINICAL ICD-10-CM Z79.01 JENNIFER BARLOW 03:55 PM [facility] half-way (current) NAH L 11-20 use of anticoagulants with Provider Comments: half-way (current) use of anticoagulants IHE Encounter Template Text not used by [place] Assessments - Encounter Diagnoses This section includes the primary and secondary diagnoses documented for the Encounter. 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 This section includes future appointments and future orders which are active, pending orscheduled.Future Appointments This section includes appointments that were scheduled to occur 6 months from the date of the Encounter, up to a maximum of 20 appointments. The data comes from all [place] treatment facilities. Appointment Date/Time Appointment Type Appointment Facili ty Name Jul 24, 2022 11:00 AM AMBULATORY - MEDICINE [facility] Jul 25, 2022 09:00 AM AMBULATORY - NONE [facility] Jul 25, 2022 10:30 AM AMBULATORY - NONE [facility] Jul 25, 2022 11:00 AM AMBULATORY - SURGERY [facility] Jul 25, 2022 12:30 PM AMBULATORY - NONE [facility] Aug 05, 2022 11:00 AM AMBULATORY - NONE [facility] Aug 06, 2022 10:00 AM AMBULATORY - SURGERY [facility] Sep 18, 2022 08:00 AM AMBULATORY - NONE [facility] Sep 18, 2022 09:15 AM AMBULATORY - NONE [facility] Sep 18, 2022 11:00 AM AMBULATORY - NONE [facility] Oct 21, 2022 01:00 PM AMBULATORY - NONE [facility] Oct 21, 2022 01:30 PM AMBULATORY - NONE [facility] Oct 21, 2022 02:30 PM AMBULATORY - NONE [facility] Oct 21, 2022 03:00 PM AMBULATORY - SURGERY [facility] Oct 21, 2022 03:30 PM AMBULATORY - NONE [facility] Nov 20, 2022 09:30 AM AMBULATORY - NONE [facility] Nov 20, 2022 10:30 AM AMBULATORY - MEDICINE [facility] Nov 20, 2022 11:00 AM AMBULATORY - MEDICINE [facility] Nov 20, 2022 11:30 AM AMBULATORY - MEDICINE [facility] Nov 20, 2022 12:00 PM AMBULATORY - NONE [facility] Active, Pending, and Scheduled Orders This section includes a listing of several types of active, pending, and scheduled orders, including clinic medications orders, diagnostic test orders, procedure orders and consult orders; where the start date of the order is 45 days before the date of the Encounter or 45 days after the date of the Encounter. The data comes from all [place] treatment facilities. Test Date/Time Test Type Test Details Facility Name Jun 24, 2022 06:55 PM Laboratory - Chemistry EXTRA GOLD GEL TUBE [facility] Order SERUM WC Jun 24, 2022 06:55 PM Laboratory - Chemistry EXTRA PURPLE TUBE [facility] Order BLOOD WC Jun 24, 2022 06:55 PM Laboratory - Chemistry EXTRA BLUE TUBE [facility] Order PLASMA WC Jun 24, 2022 06:55 PM Laboratory - Chemistry EXTRA MINT TUBE [facility] Order PLASMA WC Lab Results: +/- 30 [...] Interpretation Reference Range Comment Jul 19, 2022 [facility] RHEUMATOLOGY CHEM PANEL Spec imen Type: PLASMA 08:08 AM No comment enter ed. Ordering Provid er: JENNA LUIS Report Released Date/Time: Jan 11, 2022 11:04 AM Reporting Lab: [facility] [id number] Performing Lab: [facility] [address] CREATININE 1.5 H 0.7-1.2 ALKALINE PHOSPHATASE 72 40-150 ALT/SGPT 12 <55 AST/SGOT 11 <34 C-REACTIVE PROTEIN 5.28 H <5.00 CREAT EGFR(CKD-EPI) 49 L >60 Jul 19, 2022 [facility] RHEUMATOLOGY HEME PANEL Spec imen Type: BLOOD 08:08 AM No comment enter ed. Ordering Provid er: JENNA LUIS Report Released Date/Time: Jan 11, 2022 11:04 AM Reporting [facility] [address] Performing Lab: [facility] [address] WBC 13.17 H 4.0-11.0 RBC 3.21 L [...] H 5-15 Jun 24, 2022 09:29 PM [facility] URINALYSIS Specim en Type: URINE No comment enter ed. Ordering Provid er: JAYDE MENDOZA Report Released Date/Time: Jun 24, 2022 06:55 PM Reporting Lab: [facility] [address] Performing Lab: [facility] [address] URINE COLOR YELLOW SPECIFIC GRAVITY 1.039 H [...] 25 NEGATIVE Jun 24, 2022 08:24 PM [facility] AST/SGOT Specim en Type: PLASMA No comment enter ed. Ordering Provid er: JAYDE MENDOZA Report Released Date/Time: Jun 24, 2022 08:09 PM Reporting Lab: [facility] [address] Performing Lab: [facility] [address] AST/SGOT 19 <34 Jun 24, 2022 08:24 PM [facility] PROTEIN,TOTAL Specim en Type: PLASMA No comment enter ed. Ordering Provid er: JAYDE MENDOZA Report Released Date/Time: Jun 24, 2022 08:09 PM Reporting Lab: [facility] [address] [facility] [address] Performing Lab: [facility] [address] PROTEIN,TOTAL 6.8 6.0-8.3 Jun 24, 2022 08:24 PM [facility] POTASSIUM Specim en Type: PLASMA No comment enter ed. Ordering Provid er: JAYDE MENDOZA Report Released Date/Time: Jun 24, 2022 08:09 PM Reporting Lab: [facility] [address] [facility] [address] Performing Lab: [facility] [address] [facility] [address] POTASSIUM 4.9 3.5-5.1 Jun 24, 2022 07:40 [facility] PROTHROMBIN TIME/INR Spec imen Type: PLASMA PM No comment enter ed. Ordering Provid er: JAYDE MENDOZA Report Released Date/Time: Jun 24, 2022 06:55 PM Reporting Lab: [facility] [address] [facility] [address] Performing Lab: [facility] [facility] [address] .INR 1.1 0.8-1.1 .PT 12.1 9.4-12.5 Jun 24, 2022 07:32 [facility] COVID-19 DIAGNOSTIC Speci men Type: NASOPHARYNGEAL PM PANEL (CEPHEID) Comment: Cephei d GeneXpert (618) Ordering Provid er: JAYDE MENDOZA Report Released Date/Time: Jun 24, 2022 06:55 PM Reporting Lab: [facility] [address] [facility] [address] Performing Lab: [facility] [address] [facility] [address] COVID-19 (CEPHEID) Not Detected Not Dete cted Jun 24, 2022 [facility] COMPREHENSIVE METABOLIC Spec imen Type: PLASMA 07:29 PM PANEL+MG Comment: Cancel lation reported to: Rajni Giraldo RN on 06/24/22@2004 by [place]. Test result cancelled due to hemolysis interference in sample. Ordering Provid er: JAYDE MENDOZA Report Released Date/Time: Jun 24, 2022 06:55 PM Reporting Lab: [facility] [address] [facility] [address] Performing [facility]: [facility] [address] CREATININE 1.3 H 0.7-1.2 UREA NITROGEN 19 [...] L >60 Jun 24, 2022 07:29 PM [facility] CBC & DIFF Specim en Type: BLOOD Comment: [place] d Platelets. Invitro artefact. No clinical significance. Platelet count may be higher than stated value. Plt count = 214 K-cmm Manual Differential Performed Ordering Provid er: JAYDE MENDOZA Report Released Date/Time: Jun 24, 2022 06:55 PM Reporting Lab: [facility] [address] Performing Lab: [facility] [address] WBC 9.67 4.0-11.0 RBC 3.36 L 4.6-6.2 [...] 2022 01:30 PM VA-TOBACCO FORMER USER MIN [facility] Tobacco Use History This section includes a history of the smoking, or tobacco- related health factors, that were collected on or before the date of the Encounter. The data comes from the [place] facility where the Encounter took place. Date/Time Smoking Status/Tobacco Use Comment Facil ity Mar 05, 2022 01:30 PM VA-TOBACCO QUIT 1 TO < 5 YRS [facility] Jun 01, 2021 02:00 PM [facility] Dec 31, 2019 10:54 AM VA-TOBACCO FORMER USER [facility] Dec 31, 2019 10:54 AM VA-TOBACCO QUIT < 1 YEAR [facility] March 23, 2019 09:53 AM VA-TOBACCO FORMER USER [facility] March 23, 2019 09:53 AM VA-TOBACCO QUIT < 1 YEAR [facility] Jun 10, 2018 10:00 AM CURRENT TOBACCO USER [facility] May 10, 2018 07:27 PM [facility] May 10, 2018 07:27 PM [facility] Aug 29, 2017 09:55 AM FORMER TOBACCO USE <1Y MIN [facility] May 26, 2017 10:51 PM [facility] May 26, 2017 10:51 PM IN[place]BACCO USER [place] [facility] May 03, 2017 09:34 PM [facility] May 03, 2017 09:34 PM INPT TOBACCO USER [place] [facility] Sep 18, 2016 01:36 PM FORMER TOBACCO USE <1Y [facility] Aug 10, 2016 03:54 PM INPT TOBACCO USE - PT REFUSED [facility] Aug 01, 2016 06:48 PM [facility] Aug 01, 2016 06:48 PM INPT TOBACCO USER [place] [facility] Feb 08, 2015 09:57 AM CURRENT TOBACCO USER [facility] Nov 29, 2013 10:37 AM CURRENT [facility]BAC[facility] Nov 26, 2013 11:09 AM PATIENT [place] TOBACCO USER [place] [facility] Nov 27, 2012 12:12 PM CURRENT TOBACCO USER [facility] Dec 27, 2011 09:44 AM CURRENT TOBACCO USER [facility] Jan 22, 2011 02:38 PM CURRENT TOBACCO USER [facility] Mar 13, 2010 12:48 PM CURRENT TOBACCO USER [facility] Advance Directives: All historical and current Section Date Range: From patient's date of to the date document was created. This section includes ALL of a patient's completed or amended [place] Advance and Rescinded Directives. The entries below indicate that a directive exists for the patient, but an actual copy is not included with this document. The data comes from all [facility]. Date Advance Directives Provider Source Feb 25, 2018 ADVANCE DIRECTIVE AURORA MORALES [facility] Feb 24, 2018 ADVANCE DIRECTIVE DISCUSSION A[facility]OR[facility] MORALES [facility] May 26, 2017 CLINICAL WARNING MAGO CONTRERAS [facility] May 03, 2017 CLINICAL WARNING SARIAH ENGLE [facility] Aug 10, 2016 CLINICAL WARNING ISABEL BARCENAS [facility] Aug 02, 2016 CLINICAL WARNING AURORA ALMAZAN [facility] Radiology Reports: +/- 30 days of [...] the Encounter. The data comes from all [place] treatment facilities. Date/Time Radiology Report Provider Source Jul 25, 2022 09:21 AM CERVICAL SPINE 4 OR 5 VIEWS: DARRYL WADDELL [facility] REGI MANTILLA KRISTOFER [id number] -APR 28, 194 8 M Exm Date: JUL 25, 2022@09:21 Req Phys: KALI ELLINGTON Pat Loc: [facility] NEUROS URG STAFF CONSULT (R Img Loc: MAIN X-RAY Service: Unknown (Case [id number] COMPLETE) CERVICAL SPINE 4 OR 5 VIEWS (RAD Detailed) CPT:50697 Reason for Study: C5 fracture Clinical History: Can have completed on same day as neurosurg cli car appointment. [place] IS NOT under investigation for COVID-19 or is COVID-19 negative ETOH use s/p mechanical fall causing C5 pedical fracture, central cord syndrome Responsible provider name and phone number to notify for critical findings if other than u ser placing the order and pager listed below: User placing alok rs pager: [phone] LAST CREATININE 1.3 H (06/24/22) Report Status: Verified Date Reported: JUL 25, 2022 Date Verified: JUL 25, 2022 Coffee Shop Manager E-Sig:/ES/DARRYL WADDELL MD Report: EXAMINATION: CERVICAL SPINE 4 OR 5 VIEWS, 022 9:21 AM COMPARISON: CT of the neck dated 07/16/2018. HISTORY: Reason for Study: C5 fracture Can have completed on same day as neurosurg cli car appointment. [place] IS NOT under investigation for COVID-19 or [...] Primary Interpreting Staff: DARRYL WADDELL MD, RADIOLOGIST (Coffee Shop Manager) /JRT Encounter Notes: All associated encounter notes This section contains the clinical notes associated to the Encounter. Date/Time Encounter Note(s) Provider Source Jul 24, 2022 01:51 PM PHARMACY OUTPATIENT MEDICATION MGT NOT E: SREE BARLOW [facility] LOCAL TITLE: PHARMACY ANTICOAGULATION CLINIC F/ U STANDARD TITLE: PHARMACY OUTPATIENT MEDICATION M GT NOTE DATE OF NOTE: JUL 24, 2022@13:51 ENTRY DATE: JUL 23, 2022@15:55:33 AUTHOR: SREE BARLOW EXP COSIGNER: URGENCY: STATUS: COMPLETED DOAC DASHBOARD ALERT - Anticoagulant: apixaban 5mg q12h - Indication(s): Afib - Relevant PMH: - NSTEMI 2017 - Prior major bleeds: no major bleeds per pt - h/o internal hemorrhoids - 02/2022 non-erosive gastritis, on PPI - h/o anemia w/Etoh abuse - Prior anticoagulants: none - Start date: 03/2022 - Anticipated duration: indefinite - [id number] = 3 (age, htn, CAD) = low risk - HASBLED = 2-3 (age, +/-etoh, anemia) = moderat e to high risk SUBJECTIVE/OBJECTIVE: Information obtained from chart review No alcohol use - 9/7/22 PCP visit: no alcohol x1 month ans does not plan to resume Identified by dashboard to review the following: o Review dosing issue: - In absence of VTE, apixaba n dose should be reduced to 2.5 mg BID for patients meeting two of the following three criteria: serum creatinine >=1.5, either age >=80, or weight <=60.0 kg Labs ==== Age: 72 Height: 62.0 in [157.5 cm] (06/24/2022 22:38) Weight: 123 lb [55.79 kg] (07/24/2022 10:55) Collection DT Specimen Test Name Result Units Re f Range 07/19/2022 08:08 PLASMA CREATININE 1.5 H mg/dL 0 .7 - 1.2 06/24/2022 19:29 PLASMA!! CREATININE 1.3 H mg/dL [...] PLASMA CREATININE 1.0 mg/dL 0.7 - 1.2 Cockcroft & Gault (Actual body weight) = 33.5 mL /min No - Age >/= 80 yrs Yes - Wt </= 60 kg Yes - Serum creatinine >/= 1.5 mg/dL ASSESSMENT/PLAN: - Now MEETS 2 out of 3 criteria (age >/= 80 yrs, Scr >/= 1.5, weight </= 60kg) for apixaban dose reduction in A. fib. - However, baseline SCr appears to be 0.9-1.1mg/ dL - It is impractical to frequently adjust the dos e when renal function is slightly fluctuating. Decisions should be based on extent of Scr change, overall trend, & clinical plan (ie: rep eat labs, work-up, adjustments to meds that can be causative, etc). Other consideratio ns include: DDIs, bleeding/thromboembolic risk, & pt preference. An approach that limits frequent dose changes & promotes shared decisio n-making is recommended. - Rheumatology has new labs ordered for 10/2022 At this time will not make a ny changes. If SCr remains >/= 1.5 when rechecked in about 3 months, will consider dose decrease - Continue anticoagulation at current dose. - Monitor dashboard for labs, drug interactions, and compliance. - Dashboard flags reviewed/cleared. - Lab monitoring frequency defined by dashboard or as clinically indicated. Time Spent:15min /mikal/ SREE BARLOW PHARMD CLINICAL BRUSH MAKER Signed: 07/24/2022 13:51
--- OUTSIDE RECORDS SUMMARY | 2022-10-13 17:33 | XMS_ITS | Encounter Summary ---
:1950 Author Organization [facility] Address [address] [place] [address] Support Name Relationship Address Phone MADELIN MANTILLA Unavailable [address] [phone] [place] [address] MADELIN MANTILLA Unavailable [address] [phone] [place] [address] DHAVAL MANTILLA Unavailable [address] [place] [address] Insurance Providers: All historical and current Section [...] MEDICARE MEDICARE PART Jul 18, PART B [id number] ANNALEE BUSTILLO (WNR) (M) B [id number] [id number] ,REGI MEDICARE MEDICARE PART Apr 17, PART A [id number] ANNALEE BSUTILLO (WNR) (M) A [id number] [phone] ,REGI Selected Encounter This section includes the information on record at [place] for the Encounter. Date/Time Encounter Type Encounter Description Reason Provider Source Jul 19, 2022 07:00 Outpatient Encounter ADMIN CURT RICO AM ([facility]) IHE Encounter Template Text not used by [place] Plan of Treatment: Future Appointments (+ 6 [...] The data comes from all [place] treatment [facility]. Appointment Date/Time Appointment Type Appointment Facili ty Name Jul 24, 2022 11:00 AM AMBULATORY - MEDICINE [facility] CS Jul 25, 2022 09:00 AM AMBULATORY - NONE [facility] Jul 25, 2022 10:30 AM AMBULATORY - NONE [facility] Jul 25, 2022 11:00 AM AMBULATORY - SURGERY [facility] S Jul 25, 2022 12:30 PM AMBULATORY - NONE [facility] Aug 05, 2022 11:00 AM AMBULATORY - NONE [facility] Aug 06, 2022 10:00 AM AMBULATORY - SURGERY [facility] S Sep 18, 2022 08:00 AM AMBULATORY - NONE [facility] Sep 18, 2022 09:15 AM AMBULATORY - NONE [facility] Sep 18, 2022 11:00 AM AMBULATORY - NONE [facility] Oct 21, 2022 01:00 PM AMBULATORY - NONE [facility] Oct 21, 2022 01:30 PM AMBULATORY - NONE [facility] Oct 21, 2022 02:30 PM AMBULATORY - NONE [facility] Oct 21, 2022 03:00 PM AMBULATORY - SURGERY [facility] S Oct 21, 2022 03:30 PM AMBULATORY - NONE [facility] Nov 20, 2022 09:30 AM AMBULATORY - NONE [facility] Nov 20, 2022 10:30 AM AMBULATORY - MEDICINE [facility] CS Nov 20, 2022 11:00 AM AMBULATORY - MEDICINE [facility] CS Nov 20, 2022 11:30 AM AMBULATORY - MEDICINE [facility] Nov 20, 2022 12:00 PM AMBULATORY - NONE [facility] Active, Pending, and Scheduled [...] The data comes from all [place] treatment [facility]. Test Date/Time Test Type Test Details Facility Name Jun 24, 2022 06:55 PM Laboratory - Chemistry EXTRA BLUE TUBE [facility] Order PLASMA WC Jun 24, 2022 06:55 PM Laboratory - Chemistry EXTRA GOLD GEL TUBE [facility] Order SERUM WC Jun 24, 2022 06:55 PM Laboratory - Chemistry EXTRA PURPLE TUBE [facility] Order BLOOD Jun 24, 2022 06:55 PM Laboratory - Chemistry EXTRA MINT TUBE [place] [facility] Order PLASMA WC Lab Results: +/- [...] Interpretation Reference Range Comment Jul 19, 2022 [facility] RHEUMATOLOGY CHEM PANEL Spec imen Type: PLASMA 08:08 AM No comment enter ed. Ordering Provid er: JENNA LUIS Report Released Date/Time: Jan 11, 2022 11:04 AM Reporting Lab: [facility] [id number] Performing Lab: [facility] [address] CREATININE 1.5 H 0.7-1.2 ALKALINE PHOSPHATASE 72 40-150 ALT/SGPT 12 <55 AST/SGOT 11 <34 C-REACTIVE PROTEIN 5.28 H <5.00 CREAT EGFR(CKD-EPI) 49 L >60 Jul 19, 2022 [facility] RHEUMATOLOGY HEME PANEL Spec imen Type: BLOOD 08:08 AM No comment enter ed. Ordering Provid er: JENNA LUIS Report Released Date/Time: Jan 11, 2022 11:04 AM Reporting Lab: [facility] [id number] Performing Lab: [facility] [address] WBC 13.17 H 4.0-11.0 RBC 3.21 L [...] H 5-15 Jun 24, 2022 09:29 PM [facility] URINALYSIS Specim en Type: URINE No comment enter ed. Ordering Provid er: JAYDE MENDOZA Report Released Date/Time: Jun 24, 2022 06:55 PM Reporting Lab: [facility] [address] Performing Lab: [facility] [address] URINE COLOR YELLOW SPECIFIC GRAVITY 1.039 H [...] Lab: [facility] [address] Performing Lab: [facility] [address] AST/SGOT 19 <34 Jun 24, 2022 08:24 PM [facility] POTASSIUM Specim en Type: PLASMA No comment enter ed. Ordering Provid er: JAYDE MENDOZA Report Released Date/Time: Jun 24, 2022 08:09 PM Reporting Lab: [facility] [address] Performing Lab: [facility] [address] POTASSIUM 4.9 3.5-5.1 Jun 24, 2022 08:24 PM [facility] PROTEIN,TOTAL Specim en Type: PLASMA No comment enter ed. Ordering Provid er: JAYDE MENDOZA Report Released Date/Time: Jun 24, 2022 08:09 PM Reporting Lab: [facility] [address] Performing Lab: [facility] [address] PROTEIN,TOTAL 6.8 6.0-8.3 Jun 24, 2022 07:40 [facility] PROTHROMBIN TIME/INR Spec imen Type: PLASMA PM No comment enter ed. Ordering Provid er: JAYDE MENDOZA Report Released Date/Time: Jun 24, 2022 06:55 PM Reporting Lab: [facility] [address] [facility] [address] Performing Lab: [facility] [address] .INR 1.1 0.8-1.1 .PT 12.1 9.4-12.5 Jun 24, 2022 07:32 [facility] COVID-19 DIAGNOSTIC Speci men Type: NASOPHARYNGEAL PM PANEL (CEPHEID) Comment: Cephei d GeneXpert (618) Ordering Provid er: JAYDE MENDOZA Report Released Date/Time: Jun 24, 2022 06:55 PM Reporting Lab: [facility] [address] [facility] [address] Performing Lab: [facility] [address] [facility] [address] COVID-19 (CEPHEID) Not Detected Not Dete cted Jun 24, 2022 07:29 PM [facility] [address] [facility] [address] Performing Lab: [facility] [address] [facility] [address] WBC 9.67 4.0-11.0 RBC 3.36 L 4.6-6.2 [...] canc .RBC MORPHOLOGY PRESENT Jun 24, 2022 [facility] COMPREHENSIVE METABOLIC Spec imen Type: PLASMA 07:29 PM PANEL+MG Comment: Cancel lation reported to: Rajni Giraldo RN on 06/24/22@2004 by [place]. Test result cancelled due to hemolysis interference in sample. Ordering Provid er: JAYDE MENDOZA Report Released Date/Time: Jun 24, 2022 06:55 PM Reporting Lab: [facility] [address] Performing Lab: [facility] [address] CREATININE 1.3 H 0.7-1.2 UREA NITROGEN 19 [...] lb 22 [place] 2021 08:33 /min mm[Hg] IS [facility] Social History: Smoking Status [...] 2022 01:30 PM [place]-TOBACCO FORMER USER [facility] Tobacco Use History This section [...] PM [facility] Dec 31, 2019 10:54 AM VA-TOBACCO FORMER USER [facility] Dec 31, 2019 10:54 AM VA-TOBACCO QUIT < 1 YEAR [facility] March 23, 2019 09:53 AM VA-TOBACCO FORMER USER [facility] March 23, 2019 09:53 AM [place]-TOBACCO QUIT < 1 YEAR [facility] Jun 10, 2018 10:00 AM [facility] May 10, 2018 07:27 PM [facility] [place] [facility] May 10, 2018 07:27 PM IN[place] TO[place]AC[place] US[place] [facility] Aug 29, 2017 09:55 AM FORMER TOBACCO USE <1Y [facility] May 26, 2017 10:51 PM [facility] May 26, 2017 10:51 PM [place]AC[place] US[place] [facility] May 03, 2017 09:34 PM [facility] May 03, 2017 09:34 PM INPT TOBACCO US[place] [facility] Sep 18, 2016 01:36 PM FORMER TOBACCO USE <1Y [facility] Aug 10, 2016 03:54 PM INPT TOBACCO USE - PT REFUSED [facility] Aug 01, 2016 06:48 PM [place] [facility] Aug 01, 2016 06:48 PM INPT TOBACCO US[place] [facility] Feb 08, 2015 09:57 AM CURRENT TOBACCO USER [facility] Nov 29, 2013 10:37 AM CURRENT TOBACCO USER [place] [facility] Nov 26, 2013 11:09 AM PATIENT IS TOBACCO USER [place] [facility] Nov 27, 2012 12:12 PM CURRENT TOBACCO USER [facility] Dec 27, 2011 09:44 AM CURRENT TOBACCO USER [place] [facility] Jan 22, 2011 02:38 PM CURRENT TOBACCO USER [place] [facility] Mar 13, 2010 12:48 PM CURRENT TOBACCO USER [facility] Advance Directives: All historical and current Section Date Range: From patient's date of to the date document was created. This section includes ALL of a patient's completed or amended [place] Advance and Rescinded Directives. The entries below indicate that a directive exists for the patient, but an actual copy is not included with this document. The data comes from all [place] facilities. Date Advance Directives Provider Source Feb 25, 2018 ADVANCE DIRECTIVE AURORA MORALES [facility] Feb 24, 2018 ADVANCE DIRECTIVE DISCUSSION AURORA MORALES [facility] May 26, 2017 CLINICAL WARNING MAGO CONTRERAS [facility] May 03, 2017 CLINICAL WARNING DANIELCANDIDAJANAYSARIAH [facility] Aug 10, 2016 CLINICAL WARNING ISABEL BARCENAS [facility] Aug 02, 2016 CLINICAL WARNING AURORA ALMAZAN [facility] Radiology Reports: +/- 30 days of [...] SPINE 4 OR 5 VIEWS: DARRYL WADDELL [facility] REGI MANTILLA KRISTOFER [id number] -APR [phone] M Exm Date: JUL 25, 2022@09:21 Req Phys: KALI ELLINGTON Pat Loc: [facility] URG STAFF CONSULT (R Img Loc: MAIN X-RAY Service: Unknown (Case [id number] COMPLETE) CERVICAL SPINE 4 OR 5 VIEWS (RAD Detailed) CPT:72293 Reason for Study: C5 fracture Clinical History: [...] listed below: User placing alok rs pager: [phone] LAST CREATININE 1.3 H (06/24/22) Report Status: Verified Date Reported: JUL 25, 2022 Date Verified: JUL 25, 2022 Title Attorney E-Sig:/ES/DARRYL WADDELL MD Report: EXAMINATION: CERVICAL SPINE [...] vertebral bodies from prior Primary Interpreting Staff: DARYRL WADDELL MD, RADIOLOGIST (Title Attorney) /JRT
--- OUTSIDE RECORDS SUMMARY | 2022-10-13 17:33 | XMS_ITS | Encounter Summary ---
:1950 Author Organization [facility] Address [address] [place] [address] Support Name Relationship Address Phone MADELIN MANTILLA Unavailable [address] [phone] [place] [address] MADELIN MANTILLA Unavailable [address] [phone] [place] [address] DHAVAL MANTILLA Unavailable [address] [place] [address] Insurance Providers: All historical and current Section [...] MEDICARE MEDICARE PART Jul 18, PART B [id number] 800 ANNALEE BUSTILLO (WNR) (M) B [id number] [id number] ,REGI MEDICARE MEDICARE PART Apr 17, PART A [id number] 800 ANNALEE BUSTILLO (WNR) (M) A 2012A [phone] ,ROLFE Selected Encounter This section includes the information on record at [place] for the Encounter. Date/Time Encounter Type Encounter Reason Provider Source Description Jul 19, 2022 OFFICE O/P EST RHEUMATOLOGY/ARTH ICD-10-CM M06.9 NAS PERRY 09:00 AM MOD 30-39 MIN RITIS Rheumatoid A arthritis, unspecified with Provider Comments: Seropositive rheumatoid arthritis ([facility] [id number]) [facility] Encounter Template Text not used by [place] Assessments - Encounter Diagnoses This section includes the primary and secondary diagnoses documented for the Encounter. 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 Appointment Date/Time Appointment Type Appointment Facili ty Name Jul 24, 2022 11:00 AM AMBULATORY - MEDICINE [facility] Jul 25, 2022 09:00 AM AMBULATORY - NONE [facility] Jul 25, 2022 10:30 AM AMBULATORY - NONE [facility] Jul 25, 2022 11:00 AM AMBULATORY - SURGERY [facility] Jul 25, 2022 12:30 PM AMBULATORY - NONE [facility] Aug 05, 2022 11:00 AM AMBULATORY - NONE [facility] Aug 06, 2022 10:00 AM AMBULATORY - SURGERY [facility] Sep 18, 2022 08:00 AM AMBULATORY - NONE [facility] Sep 18, 2022 09:15 AM AMBULATORY - NONE [facility] Sep 18, 2022 11:00 AM AMBULATORY - NONE [facility] Oct 21, 2022 01:00 PM AMBULATORY - NONE [facility] Oct 21, 2022 01:30 PM AMBULATORY - NONE [facility] Oct 21, 2022 02:30 PM AMBULATORY - NONE [facility] Oct 21, 2022 03:00 PM AMBULATORY - SURGERY [facility] Oct 21, 2022 03:30 PM AMBULATORY - NONE [facility] Nov 20, 2022 09:30 AM AMBULATORY - NONE [facility] Nov 20, 2022 10:30 AM AMBULATORY - MEDICINE [facility] Nov 20, 2022 11:00 AM AMBULATORY - MEDICINE [facility] Nov 20, 2022 11:30 AM AMBULATORY - MEDICINE [facility] Nov 20, 2022 12:00 PM AMBULATORY - NONE [facility] Active, Pending, and Scheduled Orders [...] The data comes from all [place] treatment facilities. Test Date/Time Test Type Test Details Facility Name Jun 24, 2022 06:55 PM Laboratory - Chemistry EXTRA BLUE TUBE [facility] Order PLASMA WC Jun 24, 2022 06:55 PM Laboratory - Chemistry EXTRA GOLD GEL TUBE [facility] Order SERUM WC Jun 24, 2022 06:55 PM Laboratory - Chemistry EXTRA PURPLE TUBE [facility] [place] [facility] Order BLOOD WC Jun 24, 2022 06:55 PM Laboratory - Chemistry EXTRA MINT TUBE [facility] Order PLASMA WC Lab Results: [...] Reference Range Comment Jul 19, 2022 [facility] RHEUMATOLOGY CHEM PANEL Spec imen Type: PLASMA 08:08 AM No comment enter ed. Ordering Provid er: JENNA LUIS Report Released Date/Time: Jan 11, 2022 11:04 AM Reporting [facility] [address] Performing Lab: [facility] [address] CREATININE 1.5 H 0.7-1.2 ALKALINE PHOSPHATASE 72 40-150 ALT/SGPT 12 <55 AST/SGOT 11 <34 C-REACTIVE PROTEIN 5.28 H <5.00 CREAT EGFR(CKD-EPI) 49 L >60 Jul 19, 2022 [facility] RHEUMATOLOGY HEME PANEL Spec imen Type: BLOOD 08:08 AM No comment enter ed. Ordering Provid er: JENNA LUIS Report Released Date/Time: Jan 11, 2022 11:04 AM Reporting Lab: [facility] [address] Performing Lab: [facility] [address] WBC 13.17 H 4.0-11.0 RBC 3.21 L [...] 5-15 Jun 24, 2022 09:[address] [facility] URINALYSIS Specim en Type: URINE No comment enter ed. Ordering Provid er: JAYDE MENDOZA Report Released Date/Time: Jun 24, 2022 06:55 PM Reporting Lab: [facility] [id number] Performing Lab: [facility] [address] URINE COLOR YELLOW SPECIFIC GRAVITY 1.039 H [...] NEGATIVE Jun 24, 2022 08:[address] [facility] AST/SGOT Specim en Type: PLASMA No comment enter ed. Ordering Provid er: JAYDE MENDOZA Report Released Date/Time: Jun 24, 2022 08:09 PM Reporting Lab: [facility] [id number] Performing Lab: [facility] [address] AST/SGOT 19 <34 Jun 24, 2022 08:[address] [facility] PROTEIN,TOTAL Specim en Type: PLASMA No comment enter ed. Ordering Provid er: JAYDE MENDOZA Report Released Date/Time: Jun 24, 2022 08:09 PM Reporting Lab: [facility] [address] Performing Lab: [facility] [address] [facility] [address] PROTEIN,TOTAL 6.8 6.0-8.3 Jun 24, 2022 08:[address] [facility] POTASSIUM Specim en Type: PLASMA No comment enter ed. Ordering Provid er: JAYDE MENDOZA Report Released Date/Time: Jun 24, 2022 08:09 PM Reporting Lab: [facility] [address] [facility] [address] Performing Lab: [facility] [address] POTASSIUM 4.9 3.5-5.1 Jun 24, 2022 07:40 [facility] PROTHROMBIN TIME/INR Spec imen Type: PLASMA PM No comment enter ed. Ordering Provid er: JAYDE MENDOZA Report Released Date/Time: Jun 24, 2022 06:55 PM Reporting Lab: [facility] [address] Performing Lab: [facility] [address] .INR 1.1 0.8-1.1 .PT 12.1 9.4-12.5 Jun 24, 2022 07:32 [facility] COVID-19 DIAGNOSTIC Speci men Type: NASOPHARYNGEAL PM PANEL (CEPHEID) Comment: Cephei d GeneXpert (618) Ordering Provid er: JAYDE MENDOZA Report Released Date/Time: Jun 24, 2022 06:55 PM Reporting Lab: [facility] [address] Performing Lab: [facility] [address] COVID-19 (CEPHEID) Not Detected Not Dete cted Jun 24, 2022 07:[address] [facility] CBC & DIFF Specim en Type: BLOOD Comment: [place] d Platelets. Invitro artefact. No clinical significance. Platelet count may be higher than stated value. Plt count = 214 K-cmm Manual Differential Performed Ordering Provid er: JAYDE MENDOZA Report Released Date/Time: Jun 24, 2022 06:55 PM Reporting Lab: [facility] [address] Performing Lab: [facility] [address] WBC 9.67 4.0-11.0 RBC 3.36 L 4.6-6.2 [...] .RBC MORPHOLOGY PRESENT Jun 24, 2022 [facility] COMPREHENSIVE METABOLIC Spec imen Type: PLASMA 07:29 PM PANEL+MG Comment: Cancel lation reported to: Rajni Giraldo RN on 06/24/22@2004 by [place]. Test result cancelled due to hemolysis interference in sample. Ordering Provid er: JAYDE MENDOZA Report Released Date/Time: Jun 24, 2022 06:55 PM Reporting Lab: [facility] [address] [facility] [address] Performing Lab: [facility] [address] CREATININE 1.3 H 0.7-1.2 UREA NITROGEN 19 [...] 94 % 6 121 lb 22 [place] 2022 08:33 /min mm[Hg] IS [facility] Social History: Smoking [...] 2022 01:30 PM VA-TOBACCO FORMER USER [facility] Tobacco Use History This section includes a history of the smoking, or tobacco- related health factors, that were collected on or before the date of the Encounter. The data comes from the [place] facility where the Encounter took place. Date/Time Smoking Status/Tobacco Use Comment Facil it Mar 05, 2022 01:30 PM VA-TOBACCO QUIT 1 TO < [address] [facility] Jun 01, 2021 02:00 PM [facility] Dec 31, 2019 10:54 AM VA-TOBACCO FORMER USER [facility] Dec 31, 2019 10:54 AM PR-TOBACCO QUIT < [facility] YEAR [facility] March 23, 2019 09:53 AM VA-TOBACCO FORMER USER [facility] March 23, 2019 09:53 AM PR-TOBACCO QUIT < 1 YEAR [facility] Jun 10, 2018 10:00 AM CURRENT TOBACCO USER [facility] May 10, 2018 07:27 PM [facility] May 10, 2018 07:27 PM [place]ACCO [place] [facility] Aug 29, 2017 09:55 AM FORMER TOBACCO USE <1Y [facility] May 26, 2017 10:51 PM INPT TOBACCO COUNSELING [facility] [place] [facility] May 26, 2017 10:51 PM INPT TOBACCO [place] [facility] May 03, 2017 09:34 PM [facility] May 03, 2017 09:34 PM INPT TOBACCO US[place] [facility] Sep 18, 2016 01:36 PM FORMER TOBACCO USE <1Y [facility] Aug 10, 2016 03:54 PM INPT TOBACCO USE - PT REFUSED [facility] Aug 01, 2016 06:48 PM [facility] Aug 01, 2016 06:48 PM INPT TOBACCO USER GONZALES LORENZ [facility] Feb 08, 2015 09:57 AM CURRENT TOBACCO USER [place] ADAME [facility] Nov 29, 2013 10:37 AM CURRENT TOBACCO USER [place] [facility] [facility] Nov 26, 2013 11:09 AM PATIENT IS TOBACCO USER ANAID GARCIA [facility] Nov 27, 2012 12:12 PM CURRENT TOBACCO USER [place] JUAREZS [facility] Dec 27, 2011 09:44 AM CURRENT TOBACCO USER [place] HUMPHRIESChelita [facility] Jan 22, 2011 02:38 PM [facility] Mar 13, 2010 12:48 PM CURRENT TOBACCO USER [facility] Advance Directives: All historical and current Section Date Range: From patient's date of to the date document was created. This section includes ALL of a patient's completed or amended [place] Advance and Rescinded Directives. The entries below indicate that a directive exists for the patient, but an actual copy is not included with this document. The data comes from all [facility]. Date Advance Directives Provider Source Feb 25, 2018 ADVANCE DIRECTIVE ANDREW,AURORA Arias [facility] Feb 24, 2018 ADVANCE DIRECTIVE DISCUSSION AURORA MORALES [facility] May 26, 2017 CLINICAL WARNING MAGO CONTRERAS [facility] May 03, 2017 CLINICAL WARNING SARIAH ENGLE [facility] Aug 10, 2016 CLINICAL WARNING ISABEL BARCENAS [facility] Aug 02, 2016 CLINICAL WARNING JHON ALMAZANIE Carla [facility] Radiology Reports: +/- 30 days [...] The data comes from all [place] treatment facilities. Date/Time Radiology Report Provider Source Jul 25, 2022 09:21 AM CERVICAL SPINE 4 OR 5 VIEWS: DARRYL WADDELL [facility] REGI MANTILLA [id number] -APR 28, 194 8 M Exm Date: JUL 25, 2022@09:21 Req Phys: KALI ELLINGTON N Pat Loc: [facility] NEUROS URG STAFF CONSULT (R Img Loc: MAIN X-RAY Service: Unknown (Case [id number] COMPLETE) CERVICAL SPINE 4 OR 5 VIEWS (RAD Detailed) CPT:78116 Reason for Study: C5 fracture Clinical History: Can have completed on same day as neurosurg cli car appointment. [place] IS NOT under investigation for COVID-19 or is COVID-19 negative ETOH use s/p mechanical fall causing C5 pedical fracture, central cord syndrome Responsible provider name and phone number to notify for critical findings if other than u ser placing the order and pager listed below: User placing orde rs pager: [phone] LAST CREATININE 1.3 H (06/24/22) Report Status: Verified Date Reported: JUL 25, 2022 Date Verified: JUL 25, 2022 Advanced Developer E-Sig:/ES/DARRYL WADDELL MD Report: EXAMINATION: CERVICAL SPINE [...] Primary Interpreting Staff: DARRYL WADDELL MD, RADIOLOGIST (Advanced Developer) /JRT Encounter Notes: All associated encounter notes This section contains the clinical notes associated to the Encounter. Date/Time Encounter Note(s) Provider Source Jul 19, 2022 09:17 AM RHEUMATOLOGY ATTENDING NOTE: YUE SANTOS [facility] LOCAL TITLE: RHEUMATOLOGY CLINIC NOTE STANDARD TITLE: [...] after heavy drinking. He was hospitalized at [facility] for a a week. CT head negative [...] MOUTH GISSELLE DAY FOR ACTIVE ALLERGY SYMPTOMS METHOCARBAMOL 500MG TAB [...] ON AN EMPTY STOMACH, AT LEAST 30 CT NUTES PRIOR TO MEAL POLYETHYLENE GLYCOL 3350 ORAL PWDR TAKE 17 GRAMS BY MOUTH ACTIVE TWICE A DAY NEEDED FOR CONSTIPATION *MIX IN 4 TO 8 OUNCES OF LIQUID DIRECTED*USE COVER TO MEASU RE POWDER* PREDNISONE 10MG TAB TAKE ONE TABLET BY MOUTH GISSELLE RY DAY ACTIVE SULFASALAZINE 500MG TAB TAKE TWO TABLETS BY MOUT H TWICE A ACTIVE DAY TAMSULOSIN HCL 0.4MG CAP TAKE ONE CAPSULE BY KIRSTIN TH AT ACTIVE BEDTIME Non-VA CEPHALEXIN 500MG CAP 500MG MOUTH FOUR JOSE LUIS ES A DAY ACTIVE Non-VA DOCUSATE NA 50MG/SENNOSIDES 8.6MG TAB 2 T ABLETS ACTIVE MOUTH TWICE A DAY Non-VA GABAPENTIN 300MG CAP 300MG MOUTH THREE TI MES A DAY ACTIVE Non-VA HEMORRHOIDAL RTL OINT THIN LAYER RECTUM F OUR TIMES ACTIVE A DAY NEEDED Non-VA LIDOCAINE PATCH 1-3 PATCH 4% TOPICALLY EV NOHEMI DAY ACTIVE Non-VA METHOCARBAMOL TAB ONE-HALF TO ONE [...] * 3. HTN - Hypertension (SNOMED CT 12582432) 4. Hyperlipidemia (SNOMED CT 05301694) 5. Alcohol abuse (SNOMED CT 66221979) 6. Cannabis abuse (SNOMED CT 23753150) 7. Pain in joint involving shoulder region - RIGHT 8. Anemia (SNOMED CT 445157289) 9. Jt Replcmnt Stat, Knee 10. Gastroesophageal reflux disease (SNOMED CT 2 96289329) 11. CAD - Coronary artery disease - [...] 03/13/2010 15:33 SERUM .PERINUCLEAR ANCANEGATIVE Ref: -neg- WESTERGREN 22 H (07/19/22) C-REACTIVE PROTEIN 5.28 H [...] with 3 months labs. He had recent mechanical apprentice fall after drinking resul david in vertebral fracture. currently being managed non operatively with collar support. tingling sinsation seems to be gradually improv ing. He has schedule to see neurology for this in a week. Plan: -Continue adalimumab 40 mg subq n0zidoo, -SSA 1000 mg BID, prednisone 10 mg daily, folic acid daily -Follow up in 6 months w/labs. Patient seen, examined and discussed alexsandra [place] staff Fire Safety Director Dr. Tiago MD /mikal/ OFE KERR RHEUMATOLOGY FELLOW Signed: 07/19/2022 10:26 Receipt Acknowledged By: * AWAITING SIGNATURE * NAS PERRY Jul 19, 2022 08:35 AM INTERNAL MEDICINE OUTPATIENT NOTE: Ana VALLEJO [facility] LOCAL TITLE: MEDICINE CLINIC NURSING [...]
--- OUTSIDE RECORDS SUMMARY | 2022-10-13 17:33 | XMS_ITS | Encounter Summary ---
:1950 Author Organization [facility] Address [address] [place] [address] Support Name Relationship Address Phone MADELIN MANTILLA Unavailable [address] [phone] [place] [address] MADELIN MANTILLA Unavailable [address] [phone] [place] [address] DHAVAL MANTILLA Unavailable [address] [place] [address] Insurance Providers: All historical and current Section [...] MEDICARE MEDICARE PART Jul 18, PART B [id number] ANNALEE BUSTILLO (WNR) (M) B 2014 [id number] [phone] ,REGI MEDICARE MEDICARE PART Apr 17, PART A [id number] ANNALEE BUSTILLO (WNR) (M) A 2012A [...] data comes from all [place] treatment [facility]. Appointment Date/Time Appointment Type Appointment Facili ty Name Jul 19, 2022 07:00 AM [facility] Jul 19, 2022 08:00 AM [facility] Jul 19, 2022 09:00 AM [facility] Jul 24, 2022 11:00 AM [facility] Jul 25, 2022 09:00 AM [facility] Jul 25, 2022 10:30 AM [facility] Jul 25, 2022 11:00 AM AMBULATORY - SURGERY [facility] Jul 25, 2022 12:30 PM AMBULATORY - NONE [facility] Aug 05, 2022 11:00 AM AMBULATORY - NONE [facility] Aug 06, 2022 10:00 AM [facility] Sep 18, 2022 08:00 AM AMBULATORY - NONE [facility] Sep 18, 2022 09:15 AM AMBULATORY - NONE [facility] Sep 18, 2022 11:00 AM AMBULATORY - NONE [facility] Oct 21, 2022 01:00 PM AMBULATORY - NONE [facility] Oct 21, 2022 01:30 PM AMBULATORY - NONE [facility] Oct 21, 2022 02:30 PM AMBULATORY - NONE [facility] Oct 21, 2022 03:00 PM [facility] Oct 21, 2022 03:30 PM AMBULATORY - NONE [facility] Nov 20, 2022 09:30 AM AMBULATORY - NONE [facility] Nov 20, 2022 10:30 AM AMBULATORY - MEDICINE [facility] Active, Pending, and Scheduled Orders This [...] data comes from all [place] treatment [facility]. Test Date/Time Test Type Test Details Facility Name Jun 24, 2022 06:55 PM Laboratory - Chemistry EXTRA BLUE TUBE [facility] Order PLASMA WC Jun 24, 2022 06:55 PM Laboratory - Chemistry EXTRA GOLD GEL TUBE [facility] Order SERUM WC Jun 24, 2022 06:55 PM Laboratory - Chemistry EXTRA PURPLE TUBE [facility] Order BLOOD WC Jun 24, 2022 06:55 PM Laboratory - Chemistry EXTRA MINT TUBE [place] [facility] Order PLASMA WC Lab Results: +/- [...] Reference Range Comment Jul 19, 2022 [facility] RHEUMATOLOGY CHEM PANEL Spec imen Type: PLASMA 08:08 AM No comment enter ed. Ordering Provid er: JENNA LUIS Report Released Date/Time: Jan 11, 2022 11:04 AM Reporting Lab: [facility] [id number] Performing Lab: [facility] [address] CREATININE 1.5 H 0.7-1.2 ALKALINE PHOSPHATASE 72 40-150 ALT/SGPT 12 <55 AST/SGOT 11 <34 C-REACTIVE PROTEIN 5.28 H <5.00 CREAT EGFR(CKD-EPI) 49 L >60 Jul 19, 2022 [facility] RHEUMATOLOGY HEME PANEL Spec imen Type: BLOOD 08:08 AM No comment enter ed. Ordering Provid er: JENNA LUIS Report Released Date/Time: Jan 11, 2022 11:04 AM Reporting Lab: [facility] [address] Performing Lab: [facility] [address] WBC 13.17 H 4.0-11.0 RBC 3.21 L [...] 5-15 Jun 24, 2022 09:[address] [facility] URINALYSIS Specim en Type: URINE No comment enter ed. Ordering Provid er: JAYDE MENDOZA Report Released Date/Time: Jun 24, 2022 06:55 PM Reporting Lab: [facility] [address] [facility] [address] Performing Lab: [facility] [address] [facility] [address] URINE COLOR YELLOW SPECIFIC GRAVITY 1.039 H [...] NEGATIVE Jun 24, 2022 08:[address] [facility] AST/SGOT Specim en Type: PLASMA No comment enter ed. Ordering Provid er: JAYDE MENDOZA Report Released Date/Time: Jun 24, 2022 08:09 PM Reporting Lab: [facility] [address] [facility] [address] Performing Lab: [facility] [address] [facility] [address] AST/SGOT 19 <34 Jun 24, 2022 08:[address] [facility] POTASSIUM Specim en Type: PLASMA No comment enter ed. Ordering Provid er: JAYDE MENDOZA Report Released Date/Time: Jun 24, 2022 08:09 PM Reporting Lab: [facility] [address] [facility] [address] Performing Lab: [facility] [address] [facility] [address] POTASSIUM 4.9 3.5-5.1 Jun 24, 2022 08:[address] [facility] PROTEIN,TOTAL Specim en Type: PLASMA No comment enter ed. Ordering Provid er: JAYDE MENDOZA Report Released Date/Time: Jun 24, 2022 08:09 PM Reporting Lab: [facility] [address] [facility] [address] Performing Lab: [facility] [address] [facility] [address] PROTEIN,TOTAL 6.8 6.0-8.3 Jun 24, 2022 07:40 [facility] PROTHROMBIN TIME/INR Spec imen Type: PLASMA PM No comment enter ed. Ordering Provid er: JAYDE MENDOZA Report Released Date/Time: Jun 24, 2022 06:55 PM Reporting Lab: [facility] [address] [facility] [address] Performing Lab: [facility] [address] [facility] [address] .INR 1.1 0.8-1.1 .PT 12.1 9.4-12.5 Jun 24, 2022 07:32 [facility] COVID-19 DIAGNOSTIC Speci men Type: NASOPHARYNGEAL PM PANEL (CEPHEID) Comment: Cepheyanira rodriguez GeneXpert (618) Ordering Provid er: JAYDE MENDOZA Report Released Date/Time: Jun 24, 2022 06:55 PM Reporting Lab: [facility] [address] [facility] [address] Performing Lab: [facility] [address] [facility] [address] COVID-19 (CEPHEID) Not Detected Not Dete cted Jun 24, 2022 07:[address] [facility] CBC & DIFF Specim en Type: BLOOD Comment: [place] d Platelets. Invitro artefact. No clinical significance. Platelet count may be higher than stated value. Plt count = 214 K-cmm Manual Differential Performed Ordering Provid er: JAYDE MENDOZA Report Released Date/Time: Jun 24, 2022 06:55 PM Reporting Lab: [facility] [address] [facility] [address] Performing Lab: [facility] [address] [facility] [address] WBC 9.67 4.0-11.0 RBC 3.36 L 4.6-6.2 [...] .RBC MORPHOLOGY PRESENT Jun 24, 2022 [facility] COMPREHENSIVE METABOLIC Spec imen Type: PLASMA 07:29 PM PANEL+MG Comment: Cancel lation reported to: Rajni Giraldo RN on 06/24/22@2004 by [place]. Test result cancelled due to hemolysis interference in sample. Ordering Provid er: JAYDE MENDOZA Report Released Date/Time: Jun 24, 2022 06:55 PM Reporting Lab: [facility] [address] Performing Lab: [facility] [address] CREATININE 1.3 H 0.7-1.2 UREA NITROGEN 19 [...] 2022 01:30 PM [facility] Tobacco Use History This section includes a history of the smoking, or tobacco- related health factors, that were collected on or before the date of the Encounter. The data comes from the [place] facility where the Encounter took place. Date/Time Smoking Status/Tobacco Use Comment Katherine gillis Mar 05, 2022 01:30 PM CO-TOBACCO QUIT 1 TO < [address] [facility] Jun 01, 2021 02:00 PM [place] USED [place] [facility] Dec 31, 2019 10:54 AM VA-TOBACCO FORMER USER [facility] Dec 31, 2019 10:54 AM VA-TOBACCO QUIT < 1 YEAR [place] [facility] March 23, 2019 09:53 AM VA-TOBACCO FORMER USER [facility] March 23, 2019 09:53 AM VA-TOBACCO QUIT < 1 YEAR [place] [facility] Jun 10, 2018 10:00 AM CURRENT TOBACCO USER [place] [facility] May 10, 2018 07:27 PM INPT TOBACCO COUNSELING [place] [facility] May 10, 2018 07:27 PM [place]AC[place] US[place] [facility] Aug 29, 2017 09:55 AM FORMER TOBACCO USE <1Y [facility] May 26, 2017 10:51 PM INPT TOBACCO COUNSELING [place] [facility] May 26, 2017 10:51 PM INPT TOBACCO USER [place] [facility] May 03, 2017 09:34 PM INPT TOBACCO COUNSELING [place] [facility] May 03, 2017 09:34 PM INPT TOBACCO USER [place] [facility] Sep 18, 2016 01:36 PM FORMER TOBACCO USE <1Y [facility] Aug 10, 2016 03:54 PM INPT TOBACCO USE - PT REFUSED [facility] Aug 01, 2016 06:48 PM INPT TOBACCO COUNSELING [place] [facility] Aug 01, 2016 06:48 PM INPT TOBACCO USER [place] [facility] Feb 08, 2015 09:57 AM CURRENT TOBACCO USER [facility] [facility] Nov 29, 2013 10:37 AM CURRENT TOBACCO USER [place] [facility] Nov 26, 2013 11:09 AM PATIENT IS TOBACCO USER [place] [facility] Nov 27, 2012 12:12 PM CURRENT TOBACCO USER [place] Dec 27, 2011 09:44 AM CURRENT TOBACCO USER [place] [facility] Jan 22, 2011 02:38 PM CURRENT TOBACCO USER [facility] Mar 13, 2010 12:48 PM CURRENT TOBACCO USER [facility] Advance Directives: All historical and [...] 25, 2018 ADVANCE DIRECTIVE [facility] Feb 24, 2018 ADVANCE DIRECTIVE DISCUSSION [facility] May 26, 2017 CLIN[address]O [address] [facility] May 03, 2017 CLIN[address]H [address] [facility] Aug 10, 2016 CLINICAL WARNING ISABEL BARCENAS [facility] Aug 02, 2016 CLINICAL WARNING [facility] Radiology Reports: +/- 30 days of [...] 4 OR 5 VIEWS: DARRYL WADDELL [facility] REGI MANTILLA [id number] -APR 28, 194 8 M Exm Date: JUL 25, 2022@09:21 Req Phys: KALI ELLINGTON Pat Loc: [facility] URG STAFF CONSULT (R Img Loc: MAIN X-RAY Service: Unknown (Case [id number] COMPLETE) CERVICAL SPINE 4 OR 5 VIEWS (RAD Detailed) CPT:07924 Reason for Study: C5 fracture Clinical History: [...] order and pager listed below: User placing glenise rs pager: [phone] LAST CREATININE 1.3 H (06/24/22) Report Status: Verified Date Reported: JUL 25, 2022 Date Verified: JUL 25, 2022 Tortilla Maker E-Sig:/ES/DARRYL WADDELL MD Report: EXAMINATION: CERVICAL SPINE [...] Primary Interpreting Staff: DARRYL WADDELL MD, RADIOLOGIST (Tortilla Maker) /JRT Encounter Notes: All associated encounter notes This section contains the clinical notes associated to the Encounter. Date/Time Encounter Note(s) Provider Source Jul 16, 2022 10:23 PM NONVA NOTE: [facility] LOCAL TITLE: COMMUNITY CARE-ELZBIETA SELF PRESENTIN G CARE COORD PLAN STANDARD TITLE: NONVA NOTE DATE OF NOTE: JUL 16, 2022@22:23 ENTRY DATE: JUL 17, 2022@22:23:28 AUTHOR: BELLA FIORE COSIGNER: URGENCY: STATUS: COMPLETED COMMUNITY CARE-ELZBIETA SELF PRESENTING CARE CO ORD PLAN NOTE Has ADDENDA Emergency Notification Intake Date Presenting to the Facility: Jun Method of Contact: Notified from [employer] worklist Notification ID: [id number] [facility] Referral #: [facility] Name: Hospital: [facility] Address: [address] City: [place] State: [place] Zip Code: [address] Phone : [facility] Point of Contact: Name: Anna Canas RN Chief complaint: Shortness of Breath Primary Diagnosis: Disposition Admitted Route of Admission: Other: Date of Admission: Jun Admitting Diagnosis: Shortness of Breath Community Care Provider: Confirm Level of Care: /mikal/ BELLA FIORE [employer] JUDGE Signed: 07/17/2022 22:25 Receipt Acknowledged By: 07/20/2022 09:06 /mikal/ PRANAY WOMACK RN REGISTERED NURSE 07/20/2022 ADDENDUM STATUS: COMPLETED This is a duplicate notification. Please see ot er COMMUNITY CARE-ELZBIETA SELF PRESENTING CARE COORD PLAN NOTE dated 07/16/22 /mikal/ PRANAY WOMACK RN REGISTERED NURSE Signed: 07/20/2022 09:07
--- OUTSIDE RECORDS SUMMARY | 2022-10-13 17:34 | XMS_ITS | Encounter Summary ---
:1950 Author Organization [facility] Address [address] [place] [address] Support Name Relationship Address Phone MADELIN MANTILLA Unavailable [address] [phone] [place] [address] MADELIN MANTILLA Unavailable [address] [phone] [place] [address] DHAVAL MANTILLA Unavailable [address] [place] [address] Insurance Providers: All historical and current Section [...] MEDICARE MEDICARE PART Jul 18, PART B [id number] ANNALEE BUSTILLO (WNR) (M) B 2014A [phone] ,REGI MEDICARE MEDICARE PART Apr 17, PART A [id number] ANNALEE BUSTILLO (WNR) (M) A [id number] [id number] ,REGI Selected Encounter This section includes the information on record at [place] for the Encounter. Date/Time Encounter Type Encounter Reason Provider Source Description Jul 24, 2022 OFFICE O/P EST PRIMARY ICD-10-CM F10.19 MARYELLEN LEON 11:00 AM LOW 20-29 MIN CARE/MEDICINE Alcohol abuse with unspecified alcohol-induced disorder with Provider Comments: Alcohol abuse ([facility] [id number]) IHE Encounter Template Text not used by [place] Assessments - Encounter Diagnoses This section includes the primary and secondary diagnoses documented for the Encounter. Date/Time Primary/Secondary Diagnosis Name Provider Source Diagnosis Jul 24, 2022 PRIMARY Alcohol abuse with LEON,[place]EN [place] 12:[facility] PM unspecified HCS alcohol-induced disorder Jul 24, 2022 SECONDARY Athscl heart MARYELLEN LEON [place] 12:22 PM disease of [place] H[facility] coronary artery w/o ang pctrs Jul 24, 2022 SECONDARY Chronic kidney MARYELLEN LEON [place] 12:22 PM disease, HCS unspecified Jul 24, 2022 SECONDARY Chronic LEONMARYELLEN SPAIN [place] 12:22 PM obstructive HCS pulmonary disease, unspecified Jul 24, 2022 SECONDARY Encounter for SHERRY RUDOLPH [facility] 12:22 PM immunization HCS Jul 24, 2022 SECONDARY Essential LEONMARYELLEN SPAIN [facility] 12:22 PM (primary) HCS hypertension Jul 24, 2022 SECONDARY Paroxysmal atrial [place]ELLEN LEONI [place] 12:22 PM fibrillation HCS Plan of Treatment: Future Appointments (+ 6 months) and Future Tests (+/- 45 days) The Plan of Treatment section includes future care activities for the patient from all [place] [facility]. This section includes future appointments and future orders which are active, pending orscheduled.Future Appointments This section includes appointments that were scheduled to occur 6 months from the date of the Encounter, up to a maximum of 20 appointments. The data comes from all [place] treatment facilities. Appointment Date/Time Appointment Type Appointment Facili ty Name Jul 25, 2022 09:00 AM AMBULATORY - NONE [facility] Jul 25, 2022 10:30 AM AMBULATORY - NONE [facility] Jul 25, 2022 11:00 AM AMBULATORY - SURGERY [facility] Jul 25, 2022 12:30 PM AMBULATORY - NONE [facility] Aug 05, 2022 11:00 AM AMBULATORY - NONE [facility] Aug 06, 2022 10:00 AM AMBULATORY - SURGERY [facility] Sep 18, 2022 08:00 AM AMBULATORY - NONE [facility] Sep 18, 2022 09:15 AM AMBULATORY - NONE [facility] Sep 18, 2022 11:00 AM AMBULATORY - NONE [facility] Oct 21, 2022 01:00 PM AMBULATORY - NONE [facility] Oct 21, 2022 01:30 PM AMBULATORY - NONE [facility] Oct 21, 2022 02:30 PM AMBULATORY - NONE [facility] Oct 21, 2022 03:00 PM AMBULATORY - SURGERY [facility] Oct 21, 2022 03:30 PM AMBULATORY - NONE [facility] Nov 20, 2022 09:30 AM AMBULATORY - NONE [facility] Nov 20, 2022 10:30 AM AMBULATORY - MEDICINE [facility] Nov 20, 2022 11:00 AM AMBULATORY - MEDICINE [facility] Nov 20, 2022 11:30 AM AMBULATORY - MEDICINE [facility] Nov 20, 2022 12:00 PM AMBULATORY - NONE [facility] Jan 17, 2023 08:30 AM AMBULATORY - MEDICINE [facility] Active, [...] data comes from all [place] treatment facilities. Test Date/Time Test Type Test Details Facility Name Jun 24, 2022 06:55 PM Laboratory - Chemistry EXTRA BLUE TUBE [facility] Order PLASMA WC Jun 24, 2022 06:55 PM Laboratory - Chemistry EXTRA GOLD GEL TUBE [facility] Order SERUM WC Jun 24, 2022 06:55 PM Laboratory - Chemistry EXTRA PURPLE TUBE [facility] Order BLOOD WC Jun 24, 2022 06:55 PM Laboratory - Chemistry EXTRA MINT TUBE [facility] Order PLASMA WC Lab Results: +/- [...] Interpretation Reference Range Comment Jul 19, 2022 [facility] RHEUMATOLOGY CHEM PANEL Spec imen Type: PLASMA 08:08 AM No comment enter ed. Ordering Provid er: JENNA LUIS Report Released Date/Time: Jan 11, 2022 11:04 AM Reporting Lab: [facility] [address] [facility] [id number] Performing Lab: [facility] [address] [facility] [id number] CREATININE 1.5 H 0.7-1.2 ALKALINE PHOSPHATASE 72 40-150 ALT/SGPT 12 <55 AST/SGOT 11 <34 C-REACTIVE PROTEIN 5.28 H <5.00 CREAT EGFR(CKD-EPI) 49 L >60 Jul 19, 2022 [facility] RHEUMATOLOGY HEME PANEL Spec imen Type: BLOOD 08:08 AM No comment enter ed. Ordering Provid er: JENNA LUIS Report Released Date/Time: Jan 11, 2022 11:04 AM Reporting Lab: [facility] [address] [facility] [id number] Performing Lab: [facility] [address] [facility] [id number] WBC 13.17 H 4.0-11.0 RBC 3.21 L [...] H 0-0.1 SED RATE 22 H 5-15 Vital Signs: All taken on the encounter date This section contains inpatient and outpatient Vital Signs collected on the date of the Encounter. Date/Time Temperature Pulse Blood Respiratory SP02 Pain Height Weight Marcus dy Source Pressure Rate Mass Index Jul 24, 96.8 F 52 95/60 16 /min 93 % 4 123 lb 23 [place] 2021 10:55 /min mm[Hg] IS [facility] Immunizations: All administered on the encounter date This section contains immunizations associated to the Encounter. Immunization Series Date Issued Reaction Comments TDAP Jul 24, 2022 Social History: Smoking Status (Most current) and [...] 01:30 PM [place]-TOBACCO FORMER USER [place] [facility] Tobacco Use History This section includes a history of the smoking, or tobacco- related health factors, that were collected on or before the date of the Encounter. The data comes from the [place] facility where the Encounter took place. Date/Time Smoking Status/Tobacco Use Comment Facil ity Mar 05, 2022 01:30 PM VA-TOBACCO QUIT 1 TO < 5 YRS [facility] Jun 01, 2021 02:00 PM VA-TOBACCO NEVER USED [place] [facility] Dec 31, 2019 10:54 AM VA-TOBACCO FORMER USER [facility] Dec 31, 2019 10:54 AM VA-TOBACCO QUIT < 1 YEAR [place] [facility] March 23, 2019 09:53 AM VA-TOBACCO FORMER USER [facility] March 23, 2019 09:53 AM [place]-TO[place]ACCO QUIT < 1 YEAR [facility] Jun 10, 2018 10:00 AM CURRENT TOBACCO USER [place] [facility] May 10, 2018 07:27 PM INPT TO[place]ACCO COUNSELING [place] [facility] May 10, 2018 07:27 PM INPT TO[place]ACCO US[place] [facility] Aug 29, 2017 09:55 AM FORMER TOBACCO USE <1Y [facility] May 26, 2017 10:51 PM [place] COUN[place] [facility] May 26, 2017 10:51 PM IN[place]AC[place] [facility] May 03, 2017 09:34 [facility] May 03, 2017 09:34 PM INPT [place]BACCO US[place] [facility] Sep 18, 2016 01:36 PM FORMER TOBACCO USE <1Y [facility] Aug 10, 2016 03:54 PM INPT TOBACCO USE - PT REFUSED [facility] Aug 01, 2016 06:48 PM INPT [place]BACCO COUNSELING [place] [facility] Aug 01, 2016 06:48 PM INPT [place] [facility] Feb 08, 2015 09:57 AM CURRENT TOBACCO USER [place] [facility] Nov 29, 2013 10:37 AM CURRENT TOBACCO USER [place] [facility] Nov 26, 2013 11:09 AM PATIENT IS TOBACCO USER [place] [facility] Nov 27, 2012 12:12 PM CURRENT TOBACCO USER [place] [facility] Dec 27, 2011 09:44 AM CURRENT TOBACCO USER [place] [facility] Jan 22, 2011 02:38 PM CURRENT TOBACCO USER [place] [facility] Mar 13, 2010 12:48 PM CURRENT TOBACCO USER [facility] Advance Directives: [...] Feb 25, 2018 ADVANCE DIRECTIVE AURORA MORALES [facility] Feb 24, 2018 ADVANCE DIRECTIVE DISCUSSION AURORA MORALES [facility] May 26, 2017 CLINICAL WARNING SHANICEGONZALOMAGO Wood [facility] May 03, 2017 CLINICAL WARNING SARIAH ENGLE [facility] Aug 10, 2016 CLINICAL WARNING ISABEL BARCENAS [facility] Aug 02, 2016 CLINICAL WARNING AURORA ALMAZAN Carla [facility] Radiology Reports: +/- 30 days [...] data comes from all [place] treatment facilities. Date/Time Radiology Report Provider Source Jul 25, 2022 09:21 AM CERVICAL SPINE 4 OR 5 VIEWS: DARRYL WADDELL [facility] REGI MANTILLA KRISTOFER [id number] [phone] [phone] M Exm Date: JUL 25, 2022@09:21 Req Phys: KALI ELLINGTON Pat Loc: [facility] NEUROS URG STAFF CONSULT (R Img Loc: MAIN X-RAY Service: Unknown (Case [id number] COMPLETE) CERVICAL SPINE 4 OR 5 VIEWS (RAD Detailed) CPT:35030 Reason for Study: C5 fracture Clinical History: [...] listed below: User placing alok rs pager: [phone] LAST CREATININE 1.3 H (06/24/22) Report Status: Verified Date Reported: JUL 25, 2022 Date Verified: JUL 25, 2022 Management Expert E-Sig:/ES/DARRYL WADDELL MD Report: EXAMINATION: CERVICAL SPINE 4 OR 5 VIEWS, 022 9:21 AM COMPARISON: CT of the neck dated 07/16/2018. HISTORY: Reason for Study: C5 fracture Can have completed on same day as neurosurg cli car appointment. [place] IS NOT under investigation for COVID-19 or [...] Primary Interpreting Staff: DARRYL WADDELL MD, RADIOLOGIST (Management Expert) /JRT Encounter Notes: All associated encounter notes This section contains the clinical notes associated to the Encounter. Date/Time Encounter Note(s) Provider Source Jul 24, 2022 11:14 INTERNAL MEDICINE NOTE: MARYELLEN LEON [facility] TITLE: MEDICINE CLINIC NOTE STANDARD TITLE: INTERNAL MEDICINE NOTE DATE OF NOTE: JUL 24, 2022@11:14 ENTRY DATE: JUL 24, 2022@11:14:18 AUTHOR: MARYELLEN LEON EXP COSIGNER: URGENCY: STATUS: COMPLETED MEDICINE CLINIC NOTE Has ADDENDA Nurses notes reviewed and agree. This note is an edited version based on my previ ous clinic visit notes and/or based on review of CPRS recor ds. Chief complaint: f/u. Last seen in 03/2022 HPI: The patient is a 72 yea r old MALE CAD s/p stenting, chronic R knee pain s/p TKA, hyperlipidemia, ETOH abuse, seropositive rh eumatoid arthritis, pAfib (on Apixaban) and C5 pedical fracture in setting of mechanical fall 2/ alcohol, 06/2022 presenting here for f/u - SOB, seen at [facility] 07/16/2022. hypoxic o2 80s, placed on 2L oxygen Dxed with COPD exacerbation and mild CHF . Admitted overnight per patient, sent home the following day, symptoms improved. No OS H discharge summary availabe. OSH faxed again H and P and ED notes but NO disc harge summary. Per pt, no new meds. Doing better since discharge. Stated that they recommend nebulizer and oximeter. He has no neb solu tions. They did not send him home with any inhalers. - doing stable since discharge - f/u Rheumatology on sulfasalazine, Adalimumab injection and prednisone 10mg for diffuse joint pain felt to be seropositive r heumatoid arthritis. - Quit alcohol x 1 month now. Stated that his wi fe and him are both done with alcohol. - still smoking marijuana I use marijuana more than anything else. No tobacco use - has home health nurse checking on him but said after this week, [facility] nurse is done. He said there is home health aids coming to bath him and they will be all done on Friday--> asking to continue home health aids and nurse service to set up his meds. - pending urology consult--h/o indwelling castro from recent hosp Review of Systems: No sore throat. No dysuria/hematuria. No abdominal pain/N/V/D. FH: - cancer: none, no colon cancer. 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 Currently not working. On social security per pt. Lives wi th . - Tobacco: Quit in 04/2018 after his NSTEMI - ETOH: drinks daily, 1-3 beers, 2 shots of whis ky - Drugs: smoking marijuana my whole life. [...] superior branch of the OM1 similar to [facility] on 08/02/16--medically managed - s/p NSTEMI, [...] Compared to prior exam repor t of 1/25/18, there has been no significant change. - [...] kidney, no hydronephrosis 17. SOB - PFT 05/15/2022 FEV1 2.00 (92.2%), FEV1/FVC 66%. Spirometry is Normal. Diffusing capacity is normal. Compared to previo us test on (09/30/18), worse. 18. Rib fracture - s/p fall 11/2018, [...] related to acute on chronic fracture potentially. 24. Elevated liver enzymes level 25. Acute gastroenteritis, POSITIVE Rotavirus 2021 26. C5 pedical fracture in setting of mechanical fall 2/2 alcohol, discharged from [facility] on 06/24/2022/ Central cord syndrome. MR revealed multilevel cervical spondylosis w/ severe C4-5 and C5-6 lu tral canal stenosis. Neurosurgery recommended non-operative managemen t for C5 fracture w/ elective cervical decompression (once C5 fracture heals). Allergies: LISINOPRIL (Jun 01, 2021) Active and [...] AT BEDTIME FOR CHOLESTEROL REPLACES SIMVASTATIN 6) CHOLECALCIF 25MCG (D3-1,000UNIT) TAB TAKE [...] BY MOUTH E VERY DAY ACTIVE 10) GABAPENTIN 300MG CAP TAKE ONE CAPSULE BY THREE ACTIVE TIMES A DAY 11) ISOSORBIDE MONONITRATE 60MG SA TAB TAKE ONE- HALF ACTIVE TABLET BY MOUTH EVERY DAY 12) LIDOCAINE 5% PATCH APPLY 1 PATCH TOPICALLY A S NEEDED ACTIVE FOR PAIN. WEAR FOR ONLY 12 HOURS THEN REMOVE FO R 12 HOURS. 13) LORATADINE 10MG TAB TAKE ONE TABLET BY MOUTH EVERY ACTIVE DAY FOR ALLERGY SYMPTOMS 14) METHOCARBAMOL 500MG TAB TAKE ONE TABLET BY M OUTH ACTIVE THREE TIMES A DAY NEEDED FOR MUSCLE SPASM OR MUSCLE PAIN 15) METOPROLOL TARTRATE 50MG TAB TAKE ONE TABLET BY MOUTH ACTIVE TWICE A DAY 16) PANTOPRAZOLE NA 40MG EC TAB TAKE ONE TABLET BY MOUTH ACTIVE EVERY MORNING ONE-HALF HOUR BEFORE EATING TO DECREASE STOMACH ACID TAKE ON AN EMPTY STOMAC H, AT LEAST 30 MINUTES PRIOR TO MEAL 17) POLYETHYLENE GLYCOL 3350 ORAL PWDR TAKE 17 G RUBY BY ACTIVE MOUTH TWICE A DAY NEEDED FOR CONSTIPATION *M IX IN 4 TO 8 OUNCES OF LIQUID DIRECTED*USE COVE R TO MEASURE POWDER* 18) PREDNISONE 10MG TAB TAKE ONE TABLET BY MOUTH EVERY ACTIVE DAY 19) SULFASALAZINE 500MG TAB TAKE TWO TABLETS BY MOUTH ACTIVE TWICE A DAY 20) TAMSULOSIN HCL 0.4MG CAP TAKE ONE CAPSULE BY MOUTH AT ACTIVE BEDTIME Inactive Outpatient Medications Status 1) ADALIMUMAB 40MG/0.8ML [...] FOR CHOLESTEROL REPLACES (EDIT ) SIMVASTATIN 6) CARBOXYMETHYLCELLULOSE NA 0.25% OPH SOLN INST ILL 1 DROP IN BOTH EYES FOUR TIMES A DAY 7) CHOLECALCIF 25MCG (D3-1,000UNIT) TAB TAKE ONE TABLET DISCONTINUED BY MOUTH EVERY DAY 8) COLON ELECTROLYTE LAVAGE PWD FOR SOLN TAKE 1 CONTAINER (4 LITERS) BY MOUTH DIRECTED FOR C OLON PREP *MIX ACCORDING TO PACKAGE INSTRUCTIONS. *D RINK ONE-HALF CONTAINER STARTING AT 4PM THE DAY BEFO RE EXAM. DRINK REMAINING ONE-HALF CONTAINER 6 HOUR S BEFORE EXAM. 9) CYANOCOBALAMIN 1000MCG TAB TAKE ONE TABLET BY MOUTH DISCONTINUED EVERY DAY 10) FLUTICASONE PROP 50MCG 120D NASAL INHL SPRAY 1 SPRAY DISCONTINUED IN EACH NOSTRIL TWICE A DAY NEEDED FOR RUNNY NOSE USE REGULARLY FOR RELIEF OF ALLERGIES/CONGESTION 11) FOLIC ACID 1MG TAB TAKE ONE TABLET BY MOUTH EVERY DAY DISCONTINUED 12) ISOSORBIDE MONONITRATE 60MG SA TAB TAKE ONE TABLET BY DISCONTINUED MOUTH EVERY DAY FOR CHEST PAIN 13) LORATADINE 10MG TAB TAKE ONE TABLET BY MOUTH EVERY DISCONTINUED DAY FOR ALLERGY SYMPTOMS 14) MAGNESIUM CITRATE LIQUID TAKE 1 BOTTLE BY [facility] ONCE AT 12PM (NOON) ONE DAY BEFORE PROCEDURE FOR COL ON PREP 15) METOPROLOL TARTRATE 50MG TAB TAKE ONE-HALF T ABLET BY DISCONTINUED MOUTH TWICE A DAY FOR HEART 16) PANTOPRAZOLE NA 40MG EC TAB TAKE ONE TABLET BY MOUTH DISCONTINUED EVERY MORNING ONE-HALF HOUR BEFORE EATING TO DECREASE STOMACH ACID TAKE ON AN EMPTY STOMAC H, AT LEAST 30 MINUTES PRIOR TO MEAL Active Non-VA Medications Status 1) Non-VA CEPHALEXIN 500MG CAP 500MG MOUTH FOUR TIMES A ACTIVE DAY 2) Non-VA DOCUSATE NA 50MG/SENNOSIDES 8.6MG TAB 2 ACTIVE TABLETS MOUTH TWICE A DAY 3) Non-VA GABAPENTIN 300MG CAP 300MG MOUTH THREE TIMES A ACTIVE DAY 4) Non-VA HEMORRHOIDAL RTL OINT THIN LAYER RECTU M FOUR ACTIVE TIMES A DAY NEEDED 5) Non-VA LIDOCAINE PATCH 1-3 PATCH 4% TOPICALLY EVERY ACTIVE DAY 6) Non-VA METHOCARBAMOL TAB ONE-HALF TO ONE TABL ET MOUTH ACTIVE EVERY 6 HOURS NEEDED 7) Non-VA OXYCODONE TAB ONE-HALF TO ONE TABLET M OUTH ACTIVE EVERY 4 HOURS NEEDED 8) Non-VA POLYETHYLENE GLYCOL 3350 ORAL PWDR 17 GRAMS ACTIVE MOUTH TWICE A DAY 9) Non-VA TAMSULOSIN HCL 0.4MG CAP 0.4MG MOUTH E VERY DAY ACTIVE 45 Total Medications OTC, Herbals, and Private MD medications or akash tional medication information: Physical Exams: pt wears face mask provider wears surgical mask and faceshield. Anne Marie ves are used when examining patient Vitals: BP: 95/60 (07/24/2022 10:55) P: 52 (07/24/2022 10:55) R: 16 (07/24/2022 10:55) T: 96.8 F [36.0 C] (07/24/2022 10:55) WT: 123 lb [55.79 kg] (07/24/2022 10:55) Pain: 4 (07/24/2022 10:55) O2 Sat: Gen: AAO, nad, pt appears at his stated age, int eractive and cooperative HEENT: PER, EOMI, no conjunctivitis or scleral i cterus Neck: wearing Newberry collar Lungs: cta b, no wheezes or crackles Heart: irrr, nl s1s2, no m/r/g Abd: s, nt, nd. Normoactive bs. Ext: no c/e/e. Neuro: QUEEN, grossly intact. Pushing a manual whe elchair while walking Lab Data: (x)Patient was informed of available lab, imagin g, and other study results associated with today's visit. SMA-7: SODIUM 133 L (06/24/22) POTASSIUM 4.9 (06/24/22) CHLORIDE 103 (06/24/22) CO2 22 (06/24/22) UREA NITROGEN 19 (06/24/22) CREATININE 1.5 H (07/19/22) GLUCOSE 111 H (06/24/22) CBC: WBC 13.17 H (07/19/22) HGB 10.9 L (07/19/22) HCT 33.9 L (07/19/22) PLT comment (07/19/22) HA1C: Collection DT Specimen Test Name Result Units Re f Range 03/05/2022 11:47 BLOOD HEMOGLOBIN A1C 5.6 % 4.0 - 6.0 No data available Lipids: CHOLESTEROL 188 (03/05/22) HDL 83 (03/05/22) LDL CALCULATION 78 (03/05/22) LDL Measured: TRIGLYCERIDE____ LFTs: SGOT 11 (07/19/22) SGPT 12 (07/19/22) PSA - NONE FOUND TSH 3.03 (05/15/22) URIC ACID____ Urine Microalbumin: ALB/CREAT RATIO____ Other Lab Data: EKG: Imagin07/16/22 - WBC 10.54, Hb 9.9, plt 287 [...] 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 Assessment/Plan: 1. CAD s/p stenting 08/02/16: on ACEI, statin, me toprolol 50mg bid. Off ASA 81mg by cardiology after starting Apixab an. - d/c Imdur 30mg, BP is low today, pt asymptomat ic - contninue other meds - advised to monitor BP at home, if SBP<100, sergio l clinic 2. Hyperlipidemia: goal LDL <70. Chol ok 03/05/22 - continue Atorvastatin 80mg 3. pAFIB: CHADS-VASC = 3 (>65, HTN, CAD/IN) - continue metoprolol 50mg bid, Apixaban 5mg bid - also on Amiodarone by EP card for rhythm contr ol - f/u EP card, consider ablation if AAD does not work, pt also prefers medication 4. GERD/Gastritis: - continue pantoprazole 40mg qday indefinitely 5. CKD: Off Lisinopril - will follow 6. ACD/macrocytosis: slight leukocytosis 2/2 pre dnisone. Elevated MCV 2/2 ETOH abuse. B12 and Folate ok--low nl range 07/2020./ Nl Fe study 12/2021 - continue Folic and Vit B12 daily - advised to continue ETOH cessation 7. Diffuse joint pain 2/2 seropositive rheumatoi d arthritis - f/u Rheum, on Sulfasalazine, Adalimumab q2wk i njection and prednisone 10mg 8. Chronic rhinitis: - continue loratadine, and fluticasone nasal spr ay 9. Elevated LFTs/pattern suggestive of 2/2 ETOH use: - advised to continue ETOH cessation 10. Vit D insuff/L1 compression fracture: vit D 19 in 01/2020 - continue Vit D 1,000unit daily 11. C5 pedical fracture in setting of mechanical fall 2/2 alcohol, 06/2022/ Central cord syndrome. Non operative management per neurosurgery - on Newberry collar - f/u neurosurgery - on gabapentin 300mg tid, lidocaine patch 12. Recent ?COPD exac at OSH: PFT in 04/2022, mil d COPD: resolving, o2 sat nl today. No indication for madeline e oximeter, discussed, will give inhaler prn rather thn nebulizer - will give albuterol inhaler prn 13. HCM: - H/o Internal hemorrhoids and hemopositive occu lt. Colonoscopy 04/2022 diverticulosis, Non-bleeding external and internal audit consultant al hemorrhoids and sessile serrated adenoma, tubular ad enoma polyps. Repeat colonoscopy in 3 years per GI. - vaccines: Tdap 07/24/22, pneumo-vac 01/11/14, PCV 13 11/03/15, H1N1 refuses, shingles vacci ne 11/27/12, completed shingrix 2 dose series 03/23/19, COVID-19 ([employer]), MRNA, LNP-S, P* 4th 03/05/2022 - PSA ok 01/11/14 - TSH ok 05/15/2022 - AAA screening: U/S NEG 01/2014 - Hepatitis: Hep B immune 07/2020 - lung cancer screening: neg OSH chest CT 05/2021 , will order CT chest Tobacco: () Pt smokes or uses tobacco [...] () Pt has never used tobacco products. Has frequent lab thru rheum. RTC 6 month, no lab MEDICATION RECONCILIATION Outpatient At this visit I have reviewed the medication li st, and discussed relevant medications with the patient/surrogate . An updated patient medication list was given to the participant(s). ( ) No Change ( x) Change/New: I have noted this on the erlin carrillo's copy of the medication list. Education on [...] satisfaction with the treatment pl an. (x) [place]/Caregiver indicates readiness to dirk rn and has been instructed on action, dose, frequency, and side effects of the medication. [place]/Caregiver verbalizes understanding. Initial Lung Cancer Screen (Provider): No clinical exclusions, patient is a current ca ndidate for the lung cancer screening program. Patient agrees to lung cancer screening. Lung c ancer screening information provided and low dose CT will be or dered. /es/ MARYELLEN LEON MD Staff Physician Signed: 07/24/2022 12:22 07/25/2022 ADDENDUM STATUS: COMPLETED has home health nurse checking on him and home h ealth aids coming to bath him but said after this week, all services from [facility] will be all done on Friday--> asking to continue home health aids an d nurse service to set up his meds. will ask RN to assist /es/ MARYELLEN LEON MD Staff Physician Signed: 07/25/2022 15:13 Receipt Acknowledged By: * AWAITING SIGNATURE * HERI BRAUN Jul 24, 2022 10:56 INTERNAL MEDICINE OUTPATIENT NOTE: YAHAIRA RUDOLPH [facility] LOCAL TITLE: MEDICINE CLINIC NURSING NOTE STANDARD TITLE: INTERNAL MEDICINE OUTPATIENT NOT E DATE OF NOTE: JUL 24, 2022@10:56 ENTRY DATE: JUL 24, 2022@10:56:22 AUTHOR: SHERRY RUDOLPH EXP COSIGNER: URGENCY: STATUS: COMPLETED TYPE OF VISIT: Appointment Check In Type of appointment: In-person appointment REASON FOR VISIT: F/U ALLERGIES: LISINOPRIL (Jun 01, 2021) VITAL SIGNS: Blood Pressure: 95/60 (07/24/2022 10:55) Pulse: 52 (07/24/2022 10:55) Respiration: 16 (07/24/2022 10:55) Temperature: 96.8 F [36.0 C] (07/24/2022 10:55) Weight: 123 lb [55.79 kg] (07/24/2022 10:55) Height: 62.0 in [157.5 cm] (06/24/2022 22:38) BMI: 22.5 O2 Sat: 93% (07/24/2022 10:55) Pain: 4 (07/24/2022 10:55) PAIN SCREEN: Patient is having significant pain that they wo uld like to talk to their provider about today. Acute pain is new pain, which as been present f or less than 6 months Words used to describe pain: burining Number that best describes pain intensity on av erage in the past week: 4 Pain located in the following location(s): neck , other: hands Pain has been happening for: 1-3 months Pain is worse when: other: sleeping in bed Pain is better when: other: sitting up CHF Weight Monitoring Educ/[place]pl[place]: CHF and Weight Monitoring Education Patient's questions regarding CHF Weight Monito ring discussed to satisfaction of patient. Level of Understanding: Good Comment: needed scale Td / Tdap Immunization: The patient received Tetanus/Diphtheria/Pertuss is (Tdap) 0.5ml IM today in Left Deltoid. 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 VIS version date Jun. /mikal/ SHERRY RUDOLPH LPN, LPN Signed: 07/24/2022 11:05
--- OUTSIDE RECORDS SUMMARY | 2022-10-13 17:34 | XMS_ITS | Encounter Summary ---
:1950 Author Organization [facility] Address [address] [place] [address] Support Name Relationship Address Phone MADELIN MANTILLA Unavailable [address] [phone] [place] [address] MADELIN MANTILLA Unavailable [address] [phone] [place] [address] DHAVAL MANTILLA Unavailable [address] [place] [address] Insurance Providers: All historical and current Section [...] MEDICARE MEDICARE PART Jul 18, PART B [id number] ANNALEE BUSTILLO (WNR) (M) B 2014A [phone] ,REGI MEDICARE MEDICARE PART Apr 17, PART A [id number] ANNALEE BUSTILLO (WNR) (M) A 2012A [id number] ,REGI Selected Encounter This section includes the information on record at [place] for the Encounter. Date/Time Encounter Type Encounter Reason Provider Source Description Jul 25, 2022 OFFICE O/P EST NEUROSURGERY ICD-10-CM ROMANMARISELA 11:00 AM MOD 30-39 MIN M50.021 Cervical disc disorder at C4-C5 level with myelopathy with Provider Comments: Cervical disc disorder at C4-C5 level with myelopathy E Encounter Template Text not used by [facility] Assessments - Encounter Diagnoses This section includes the primary and secondary diagnoses documented for the Encounter. Date/Time Primary/Secondary Diagnosis Name Provider Source Diagnosis Jul 25, 2022 [facility] at [facility] C4-C5 level with myelopathy Plan of Treatment: Future Appointments (+ 6 months) and Future Tests (+/- 45 days) The Plan of Treatment section includes future care activities for the patient [facility] [place] [facility] This section includes future appointments and future orders which are active, pending orscheduled.Future Appointments This section includes appointments that were scheduled to occur 6 months from the date of the Encounter, up to a maximum of 20 appointments. The data comes from all [place] treatment facilities. Appointment Date/Time Appointment Type Appointment Facili ty Name Aug 05, 2022 11:00 AM AMBULATORY - NONE [facility] Aug 06, 2022 10:00 AM AMBULATORY - SURGERY [facility] Sep 18, 2022 08:00 AM AMBULATORY - NONE [facility] Sep 18, 2022 09:15 AM AMBULATORY - NONE [facility] Sep 18, 2022 11:00 AM AMBULATORY - NONE [facility] Oct 21, 2022 01:00 PM AMBULATORY - NONE [facility] Oct 21, 2022 01:30 PM AMBULATORY - NONE [facility] Oct 21, 2022 02:30 PM AMBULATORY - NONE [facility] Oct 21, 2022 03:00 PM AMBULATORY - SURGERY [facility] Oct 21, 2022 03:30 PM AMBULATORY - NONE [facility] Nov 20, 2022 09:30 AM AMBULATORY - NONE [facility] Nov 20, 2022 10:30 AM AMBULATORY - MEDICINE [facility] Nov 20, 2022 11:00 AM AMBULATORY - MEDICINE [facility] Nov 20, 2022 11:30 AM AMBULATORY - MEDICINE [facility] Nov 20, 2022 12:00 PM AMBULATORY - NONE [facility] Jan 17, 2023 08:30 AM AMBULATORY - MEDICINE [facility] Jan 17, 2023 09:30 AM AMBULATORY - MEDICINE [place] [...] the Encounter. The data comes from all [place] treatment [facility]. Test Date/Time Test Type Test Details Facility Name Jun 24, 2022 06:55 PM Laboratory - Chemistry EXTRA BLUE TUBE [facility] Order PLASMA WC Jun 24, 2022 06:55 PM Laboratory - Chemistry EXTRA GOLD GEL TUBE [facility] Order SERUM WC Jun 24, 2022 06:55 PM Laboratory - Chemistry EXTRA PURPLE TUBE [place] [facility] Order BLOOD WC Jun 24, 2022 06:55 PM Laboratory - Chemistry EXTRA MINT TUBE MIN [place] [facility] Order PLASMA WC Lab Results: [...] Interpretation Reference Range Comment Jul 19, 2022 [facility] RHEUMATOLOGY CHEM PANEL Spec imen Type: PLASMA 08:08 AM No comment enter ed. Ordering Provid er: JENNA LUIS Report Released Date/Time: Jan 11, 2022 11:04 AM Reporting Lab: [facility] [id number] Performing Lab: [facility] [id number] CREATININE 1.5 H 0.7-1.2 ALKALINE PHOSPHATASE 72 40-150 ALT/SGPT 12 <55 AST/SGOT 11 <34 C-REACTIVE PROTEIN 5.28 H <5.00 CREAT EGFR(CKD-EPI) 49 L >60 Jul 19, 2022 [facility] RHEUMATOLOGY HEME PANEL Spec imen Type: BLOOD 08:08 AM No comment enter ed. Ordering Provid er: JENNA LUIS Report Released Date/Time: Jan 11, 2022 11:04 AM Reporting Lab: [facility] [id number] Performing Lab: [facility] [id number] WBC 13.17 H 4.0-11.0 RBC 3.21 L [...] H 0-0.1 SED RATE 22 H 5-15 Social History: Smoking Status (Most current) and Tobacco Use (All prior to encounter date) This section includes the most current, and the historical, smoking and tobacco-related health factors from the [facility] where the Encounter took place.Current Smoking Status This section includes the most current smoking, or tobacco-related health factor, from the [place] facility where the Encounter took place. Date/Time Current Smoking Status Comment Facility Mar 05, 2022 01:30 PM [place]-TOBACCO QUIT 1 TO < 5 YRS [facility] Tobacco Use History This section includes a history of the smoking, or tobacco- related health factors, that were collected on or before the date of the Encounter. The data comes from the [place] facility where the Encounter took place. Date/Time Smoking Status/Tobacco Use Comment [facility] it Mar 05, 2022 01:30 PM [place]-TOBACCO QUIT 1 TO < 5 YRS [facility] Jun 01, 2021 02:00 PM VA-TOBACCO NEVER USED [facility] Dec 31, 2019 10:54 AM VA-TOBACCO FORMER USER [facility] Dec 31, 2019 10:54 AM [place]-TOBACCO QUIT < 1 YEAR M [facility] March 23, 2019 09:53 AM VA-TOBACCO FORMER USER [facility] March 23, 2019 09:53 AM [place]-TO[place]ACCO QUIT < 1 YEAR [facility] Jun 10, 2018 10:00 AM CURRENT TOBACCO USER [place] [facility] May 10, 2018 07:27 PM INPT [facility]ACCO COUNSEL[facility] [place] [facility] May 10, 2018 07:27 PM INPT TOBACCO US[place] [facility] Aug 29, 2017 09:55 AM FORMER TOBACCO USE <1Y [facility] May 26, 2017 10:51 PM INPT TOBACCO COUNSELING [place] [facility] May 26, 2017 10:51 PM INPT TOBACCO US[place] [facility] May 03, 2017 09:34 PM INPT TOBACCO COUNSELING [place] [facility] May 03, 2017 09:34 PM INPT TOBACCO USER GONZALES LORENZ [facility] Sep 18, 2016 01:36 PM FORMER TOBACCO USE <1Y [place] [facility] Aug 10, 2016 03:54 PM INPT TOBACCO USE - PT REFUSED [facility] Aug 01, 2016 06:48 PM INPT TOBACCO [facility]SEL[facility] Aug 01, 2016 06:48 PM INPT TOBACCO USER CAROLYNO GERDA [facility] Feb 08, 2015 09:57 AM CURRENT TOBACCO USER LAW[place] HUMPHRIESLIS [facility] Nov 29, 2013 10:37 AM CURRENT TOBACCO USER [facility] [facility] Nov 26, 2013 11:09 AM PATIENT IS TOBACCO USER [place] SUPRI[place]OLDAVID [facility] Nov 27, 2012 12:12 PM CURRENT TOBACCO USER [facility] [facility] Dec 27, 2011 09:44 AM CURRENT TOBACCO USER [facility] HUMPHRIESLIS [facility] Jan 22, 2011 02:38 PM CURRENT TOBACCO USER LAWSON HUMPHRIESS [facility] Mar 13, 2010 12:48 PM [...] Source Feb 25, 2018 ADVANCE DIRECTIVE ANDREW,AURORA Bianchi [facility] Feb 24, 2018 ADVANCE DIRECTIVE DISCUSSION AURORA MORALES Arias [facility] May 26, 2017 CLINICAL WARNING MAGO CONTRERAS [facility] May 03, 2017 CLINICAL WARNING SARIAH ENGLE [facility] Aug 10, 2016 CLINICAL WARNING ISABEL BARCENAS [facility] Aug 02, 2016 CLINICAL WARNING AURORA ALMAZAN [facility] Radiology Reports: +/- 30 days of [...] the Encounter. The data comes from all [place] treatment facilities. Date/Time Radiology Report Provider Source Jul 25, 2022 09:21 AM CERVICAL SPINE 4 OR 5 VIEWS: DARRYL WADDELL [facility] REGI MANTILLA [id number] -APR 28, [phone] 8 M Exm Date: JUL 25, 2022@09:21 Req Phys: KALI ELLINGTON Linda Pat Loc: [facility] NEUROS URG STAFF CONSULT (R Img Loc: MAIN X-RAY Service: Unknown (Case [id number] COMPLETE) CERVICAL SPINE 4 OR 5 VIEWS (RAD Detailed) CPT:82616 Reason for Study: C5 fracture Clinical History: [...] listed below: User placing orde rs pager: [phone] LAST CREATININE 1.3 H (06/24/22) Report Status: Verified Date Reported: JUL 25, 2022 Date Verified: JUL 25, 2022 Dental Ceramist E-Sig:/ES/DARRYL WADDELL MD Report: EXAMINATION: CERVICAL SPINE [...] Primary Interpreting Staff: DARRYL WADDELL MD, RADIOLOGIST (Dental Ceramist) /JRT Encounter Notes: All associated encounter notes This section contains the clinical notes associated to the Encounter. Date/Time Encounter Note(s) Provider Source Jul 25, 2022 10:02 AM NEUROSURGERY CONSULT: DAVE BARBER [facility] LOCAL TITLE: NEUROSURGERY CONSULT STANDARD TITLE: NEUROSURGERY CONSULT DATE OF NOTE: JUL 25, 2022@10:02 ENTRY DATE: JUL 25, 2022@10:02:32 AUTHOR: DAVE BARBER EXP COSIGNER: URGENCY: STATUS: COMPLETED Neurosurgery consult CC: cervical spine fracture; central cord syndro me HPI: Mr. Mantilla is a 72 y ear old man who sustained a fall in June resulting in a C5 pedicle fracture. At the time, he also h ad weakness in his hands and numbness/tingling in fingert ips which was concerning for central cord syndrome. He underwent an MRI of the cervical spine which showed compression of the cervical cord around C4-5 and C5-6. He w as placed in a collar then sent to the [place] for rehab. He comes in to day with x-rays of the cervical spine, but no MRI or any other images were sent with him. Exam: Awake and alert cranial nerves intact Strength: 3/5 in bilateral h andgrips, 4/5 in biceps/triceps and deltoids. 5/5 in lower extremities elisa present bilaterally numbness in bilateral fingertips Imaging: C spine x-rays: Ret rolisthesis of C3 and C4. Alignment appears stable. Assessment/Plan: 72 M after fall, found to have C5 fracture and c ontinues to have symptoms of central cord syndrome. Patient may need surgery to fix his issues. However, we're not able to perform this at the [place]. Also, patient has no MR images to review. Due to those reasons, we will re svetlana the patient back to [facility] for continuity of care. I staffed this patient with Dr. Roman who agreed w ith my assessment and plan. /mikal/ DAVE BARBER RESIDENT Signed: 07/25/2022 10:12
--- OUTSIDE RECORDS SUMMARY | 2022-10-13 17:35 | XMS_ITS | Encounter Summary ---
:1950 Author Organization [facility] Address [address] [place] [address] Support Name Relationship Address Phone MADELIN MANTILLA Unavailable [address] [phone] [place] [address] MADELIN MANTILLA Unavailable [address] [phone] [place] [address] DHAVAL MANTILLA Unavailable [address] [place] [address] Insurance Providers: All historical and current Section [...] MEDICARE MEDICARE PART Jul 18, PART B [id number] ANNALEE BUSTILLO (WNR) (M) B 2014A [phone] ,REGI MEDICARE MEDICARE PART Apr 17, PART A [id number] ANNALEE BUSTILLO (WNR) (M) A 2012A [id number] ,REGI Selected Encounter This section includes the information on record at [place] for the Encounter. Date/Time Encounter Type Encounter Description Reason Provider Source Jul 29, 2022 12:58 Outpatient Encounter ADMIN PAT ACTIVANGELINA PM (MASNONCT) [...] The data comes from all [place] treatment [facility]. Appointment Date/Time Appointment Type Appointment Facili ty Name Aug 05, 2022 11:00 AM AMBULATORY - NONE [facility] Aug 06, 2022 10:00 AM AMBULATORY - SURGERY [facility] Sep 18, 2022 08:00 AM AMBULATORY - NONE [facility] Sep 18, 2022 09:15 AM AMBULATORY - NONE [facility] Sep 18, 2022 11:00 AM AMBULATORY - NONE [facility] Oct 21, 2022 01:00 PM AMBULATORY - NONE [facility] Oct 21, 2022 01:30 PM AMBULATORY - NONE [facility] Oct 21, 2022 02:30 PM AMBULATORY - NONE [facility] Oct 21, 2022 03:00 PM AMBULATORY - SURGERY [facility] Oct 21, 2022 03:30 PM AMBULATORY - NONE [facility] Nov 20, 2022 09:30 AM AMBULATORY - NONE [facility] Nov 20, 2022 10:30 AM AMBULATORY - [place]ICINE [place] [facility] Nov 20, 2022 11:00 AM AMBULATORY - MEDICINE [facility] Nov 20, 2022 11:30 AM AMBULATORY - MEDICINE [facility] Nov 20, 2022 12:00 PM AMBULATORY - NONE [facility] Jan 17, 2023 08:30 AM AMBULATORY - MEDICINE [facility] Jan 17, 2023 09:30 AM [facility] [...] The data comes from all [place] treatment [facility]. Test Date/Time Test Type Test Details Facility Name Jun 24, 2022 06:55 PM Laboratory - Chemistry [facility] Jun 24, 2022 06:55 PM Laboratory - Chemistry EXTRA PURPLE TUBE [facility] Order BLOOD WC Jun 24, 2022 06:55 PM Laboratory - Chemistry EXTRA GOLD GEL TUBE [facility] Order SERUM WC Jun 24, 2022 06:55 PM Laboratory - Chemistry EXTRA MINT TUBE [facility] Order PLASMA [facility] Lab Results: +/- [...] Interpretation Reference Range Comment Jul 19, 2022 [facility] RHEUMATOLOGY CHEM PANEL Spec imen Type: PLASMA 08:08 AM No comment enter ed. Ordering Provid er: JENNA LUIS Report Released Date/Time: Jan 11, 2022 11:04 AM Reporting Lab: [facility] [id number] Performing Lab: [facility] [id number] CREATININE 1.5 H 0.7-1.2 ALKALINE PHOSPHATASE 72 40-150 ALT/SGPT 12 <55 AST/SGOT 11 <34 C-REACTIVE PROTEIN 5.28 H <5.00 CREAT EGFR(CKD-EPI) 49 L >60 Jul 19, 2022 [facility] RHEUMATOLOGY HEME PANEL Spec imen Type: BLOOD 08:08 AM No comment enter ed. Ordering Provid er: JENNA LUIS Report Released Date/Time: Jan 11, 2022 11:04 AM Reporting [facility] [id number] Performing Lab: [facility] [id number] WBC 13.17 H 4.0-11.0 RBC 3.21 L [...] 1 TO < 5 YRS [facility] Jun 01, 2021 02:00 PM [facility]-TO[facility]ACCO [facility] Dec 31, 2019 10:54 AM VA-TOBACCO [facility] Dec 31, 2019 10:54 AM [place]-TOBACCO QUIT < 1 YEAR [facility] March 23, 2019 09:53 AM VA-[facility]BACCO [facility] March 23, 2019 09:53 AM VA-TOBACCO QUIT < 1 YEAR [facility] Jun 10, 2018 10:00 AM CURRENT TOBACCO USER [place]STELL[place] [facility] May 10, 2018 07:27 PM INPT [place]ACCO [place]SEL[place] [facility] May 10, 2018 07:27 PM [place]PT [place] [facility] Aug 29, 2017 09:55 AM FORMER TOBACCO USE <1Y [facility] May 26, 2017 10:51 PM [facility] May 26, 2017 10:51 PM INPT TOBACCO US[place] [facility] May 03, 2017 09:34 PM [facility] May 03, 2017 09:34 PM INPT TOBACCO USER [place] [facility] Sep 18, 2016 01:36 PM FORMER TOBACCO USE <1Y [facility] Aug 10, 2016 03:54 PM INPT TOBACCO USE - PT REFUSED [facility] Aug 01, 2016 06:48 PM [facility] Aug 01, 2016 06:48 PM INPT TOBACCO USER [place] [facility] Feb 08, 2015 09:57 AM CURRENT TOBACCO USER [place] [facility] Nov 29, 2013 10:37 AM CURRENT TOBACCO USER [facility] Nov 26, 2013 11:09 AM PATIENT IS TOBACCO USER ANAID GARCIA [facility] Nov 27, 2012 12:12 PM CURRENT TOBACCO USER [facility] Dec 27, 2011 09:44 AM CURRENT TOBACCO USER [facility] Jan 22, 2011 02:38 PM CURRENT TOBACCO USER [facility] Mar 13, 2010 12:48 PM [...] this document. The data comes from all [facility]. Date Advance Directives Provider Source Feb 25, 2018 ADVANCE DIRECTIVE ANDREW,AURORA Arias [facility] Feb 24, 2018 ADVANCE DIRECTIVE DISCUSSION AURORA MORALES [facility] May 26, 2017 CLINICAL WARNING MAGO CONTRERAS [facility] May 03, 2017 CLINICAL WARNING SARIAH ENGLE [facility] Aug 10, 2016 CLINICAL WARNING ISABEL BARCENAS [facility] Aug 02, 2016 CLINICAL WARNING NORAHAURORA Carla [facility] Radiology Reports: +/- 30 days of [...] comes from all [place] treatment facilities. Date/Time Radiology Report Provider Source Jul 25, 2022 09:21 AM CERVICAL SPINE 4 OR 5 VIEWS: DARRYL WADDELL [facility] REGI MANTILLA [id number] -APR [id number] 8 M Exm Date: JUL 25, 2022@09:21 Req Phys: KALI ELLINGTON Pat Loc: [facility] NEUROS URG STAFF CONSULT (R Img Loc: MAIN X-RAY Service: Unknown (Case [id number] COMPLETE) CERVICAL SPINE 4 OR 5 VIEWS (RAD Detailed) CPT:02177 Reason for Study: C5 fracture Clinical History: [...] listed below: User placing glenise rs pager: [phone] LAST CREATININE 1.3 H (06/24/22) Report Status: Verified Date Reported: JUL 25, 2022 Date Verified: JUL 25, 2022 Fold Skiver E-Sig:/ES/DARRYL WADDELL MD Report: EXAMINATION: CERVICAL SPINE [...] Primary Interpreting Staff: DARRYL WADDELL MD, RADIOLOGIST (Fold Skiver) /JRT Encounter Notes: All associated encounter notes This section contains the clinical notes associated to the Encounter. Date/Time Encounter Note(s) Provider Source Jul 16, 2022 12:58 PM NONVA NOTE: MILENA DERAS IS [facility] LOCAL TITLE: LABORATORY NONVA NOTE STANDARD TITLE: NONVA NOTE DATE OF NOTE: JUL 16, 2022@12:58 ENTRY DATE: JUL 29, 2022@12:59:42 AUTHOR: MILENA DERAS EXP COSIGNER: URGENCY: STATUS: COMPLETED This note contains attached LABORATORY scanned d ocument(s) received from an outside facility. [employer] Display to review the documen t(s). /mikal/ MILENA DERAS Sew On Operator Signed: 07/29/2022 12:59
--- OUTSIDE RECORDS SUMMARY | 2022-10-13 17:35 | XMS_ITS | Encounter Summary ---
:1950 Author Organization Department [facility] Address [address] [place] [address] Support Name Relationship Address Phone MADELIN MANTILLA Unavailable [phone] [place] [address] MADELIN MANTILLA Unavailable [phone] [place] [address] DHAVAL MANTILLA Unavailable [address] [place] [address] Insurance Providers: All historical and current Section [...] MEDICARE MEDICARE PART Jul 18, PART B [id number] 800 ANNALEE BRYANIENT (WNR) (M) B 2014A [phone] ,REGI MEDICARE MEDICARE PART Apr 17, PART A [id number] 800 ANNALEE BRYANIENT (WNR) (M) A [phone] ,REGI Selected Encounter This section includes the information on record at [place] for the Encounter. Date/Time Encounter Type Encounter Description Reason Provider Source Jul 26, 2022 12:19 Outpatient Encounter TELEPHONE TRIAGE PM IHE Encounter [...] 06, 2022 10:00 AM AMBULATORY - SURGERY [facility] Sep 18, 2022 08:00 AM AMBULATORY - NONE [facility] Sep 18, 2022 09:15 AM AMBULATORY - NONE [facility] Sep 18, 2022 11:00 AM AMBULATORY - NONE [facility] Oct 21, 2022 01:00 PM AMBULATORY - NONE [facility] Oct 21, 2022 01:30 PM AMBULATORY - NONE [facility] Oct 21, 2022 02:30 PM AMBULATORY - NONE [facility] Oct 21, 2022 03:00 PM AMBULATORY - SURGERY [facility] Oct 21, 2022 03:30 PM AMBULATORY - NONE [facility] Nov 20, 2022 09:30 AM AMBULATORY - NONE [facility] Nov 20, 2022 10:30 AM AMBULATORY - MEDICINE [facility] Nov 20, 2022 11:00 AM AMBULATORY - MEDICINE [facility] Nov 20, 2022 11:30 AM AMBULATORY - MEDICINE [facility] Nov 20, 2022 12:00 PM AMBULATORY - NONE [facility] Jan 17, 2023 08:30 AM AMBULATORY - MEDICINE [facility] Jan 17, 2023 09:30 AM AMBULATORY - MEDICINE [facility] Active, Pending, and Scheduled Orders [...] The data comes from all [place] treatment [facility]. Test Date/Time Test Type Test Details Facility Name Jun 24, 2022 06:55 PM Laboratory - Chemistry EXTRA BLUE TUBE [facility] Order PLASMA WC Jun 24, 2022 06:55 PM Laboratory - Chemistry EXTRA GOLD GEL TUBE [facility] Order SERUM WC Jun 24, 2022 06:55 PM Laboratory - Chemistry EXTRA PURPLE TUBE [facility] Order BLOOD WC Jun 24, 2022 06:55 PM Laboratory - Chemistry EXTRA MINT TUBE [facility] Order PLASMA WC Lab Results: +/- 30 [...] 2022 11:04 AM Reporting Lab: [facility] [id number] Performing Lab: [facility] [id number] CREATININE 1.5 H 0.7-1.2 ALKALINE PHOSPHATASE 72 40-150 ALT/SGPT 12 <55 AST/SGOT 11 <34 C-REACTIVE PROTEIN 5.28 H <5.00 CREAT EGFR(CKD-EPI) 49 L >60 Jul 19, 2022 [facility] RHEUMATOLOGY HEME PANEL Spec imen Type: BLOOD 08:08 AM No comment enter ed. Ordering Provid er: JENNA LUIS Report Released Date/Time: Jan 11, 2022 11:04 AM Reporting Lab: [facility] [id number] Performing Lab: [facility] [id number] WBC 13.17 H 4.0-11.0 RBC 3.21 L [...] 2021 02:00 PM VA-TOBACCO NEVER USED [facility] Dec 31, 2019 10:54 AM VA-TOBACCO FORMER USER [facility] Dec 31, 2019 10:54 AM VA-TOBACCO QUIT < 1 YEAR M [facility] March 23, 2019 09:53 AM VA-TOBACCO FORMER USER [facility] March 23, 2019 09:53 AM VA-TOBACCO QUIT < 1 YEAR M [facility] Jun 10, 2018 10:00 AM CURRENT TOBACCO USER [place] [facility] May 10, 2018 07:27 PM [facility] May 10, 2018 07:27 PM INPT TOBACCO USER [facility] Aug 29, 2017 09:55 AM FORMER TOBACCO USE <1Y [facility] May 26, 2017 10:51 PM [facility]AC[facility] May 26, 2017 10:51 PM INPT TOBACCO [facility] [place] [facility] May 03, 2017 09:34 PM INPT TOBAC[place] COUNSELING [place] [facility] May 03, 2017 09:34 PM INPT [place]AC[place] [facility] Sep 18, 2016 01:36 PM FORMER TOBACCO USE <1Y [facility] Aug 10, 2016 03:54 PM INPT TOBACCO USE - PT REFUSED [facility] Aug 01, 2016 06:48 PM [facility]PT [facility] Aug 01, 2016 06:48 PM INPT [place]ACCO [place] [facility] Feb 08, 2015 09:57 AM CURRENT TOBACCO USER [place] [facility] Nov 29, 2013 10:37 AM CURRENT [facility]ACCO [facility]ER [facility] [facility] Nov 26, 2013 11:09 AM PATIENT IS TOBACCO USER ANAID GARCIA [facility] Nov 27, 2012 12:12 PM CURRENT TOBACCO USER [facility] KRISTELChelita [facility] Dec 27, 2011 09:44 AM [...] this document. The data comes from all [facility]. Date Advance Directives Provider Source Feb [...] SPINE 4 OR 5 VIEWS: DARRYL WADDELL [facility] REGI MANTILLA [id number] -APR [id number] M Exm Date: JUL 25, 2022@09:21 Req Phys: KALI ELLINGTON Pat Loc: [facility] NEUROS URG STAFF CONSULT (R Img Loc: MAIN X-RAY Service: Unknown (Case [id number] COMPLETE) CERVICAL SPINE 4 OR 5 VIEWS (RAD Detailed) CPT:08524 Reason for Study: C5 fracture Clinical History: Can have completed on same day as neurosurg cli car appointment. [place] IS NOT under investigation for COVID-19 or is COVID-19 negative ETOH use s/p mechanical fall causing C5 pedical fracture, central cord syndrome Responsible provider name and phone number to notify for critical findings if other than u ser placing the order and pager listed below: User placing orde rs pager: [phone] LAST CREATININE 1.3 H (06/24/22) Report Status: Verified Date Reported: JUL 25, 2022 Date Verified: JUL 25, 2022 Research Spec E-Sig:/ES/DARRYL WADDELL MD Report: EXAMINATION: CERVICAL SPINE [...] Primary Interpreting Staff: DARRYL WADDELL MD, RADIOLOGIST (Research Spec) /JRT Encounter Notes: All associated encounter notes This section contains the clinical notes associated to the Encounter. Date/Time Encounter Note(s) Provider Source Jul 26, 2022 12:19 PM REPORT OF CONTACT: GERALD ELKINS [facility] LOCAL TITLE: PATIENT CONTACT NOTE STANDARD TITLE: REPORT OF CONTACT DATE OF NOTE: JUL 26, 2022@12:19 ENTRY DATE: JUL 26, 2022@12:19:41 AUTHOR: GERALD ELKINS EXP COSIGNER: URGENCY: STATUS: COMPLETED PATIENT CONTACT NOTE Has ADDENDA Patient contact Name of [place]: REGI MANTILLA Name/Relationship of Contact if other than Veter an: WALLACE Denson with [employer] Date & Time of Contact: Jul@12:19 Type of Contact: Telephone Reason for Contact: N requesting list of medications be faxed to . Patient received after visit summary but did not have all pages. Please contact this [place] if appropriate. Than k ema. /mikal/ GERALD ELKINS VISLinda [address] [facility] Signed: 07/26/2022 12:22 Receipt Acknowledged By: 07/26/2022 14:44 /mikal/ RACHAEL WILD RN REGISTERED NURSE for HERI SWANSON APARNA 07/26/2022 ADDENDUM STATUS: COMPLETED Medication list faxed. /mikal/ RACHAEL WILD RN REGISTERED NURSE Signed: 07/26/2022 14:44
--- OUTSIDE RECORDS SUMMARY | 2022-10-13 17:35 | XMS_ITS | Encounter Summary ---
:1950 [address] [facility] Address [address] [place] [address] Support Name Relationship Address Phone MADELIN MANTILLA Unavailable [phone] [place] [address] MADELIN MANTILLA Unavailable [phone] [place] [address] DHAVAL MANTILLA Unavailable [address] [place] [address] Insurance Providers: All historical and current Section [...] MEDICARE MEDICARE PART Jul 18, PART B [id number] 800 ANNALEE BRYANIENT (WNR) (M) B 2014A [phone] ,REGI MEDICARE MEDICARE PART Apr 17, PART A [id number] 800 ANNALEE BRYANIENT (WNR) (M) A 2012A [phone] ,REGI Selected Encounter This section includes the information on record at [place] for the Encounter. Date/Time Encounter Type Encounter Description Reason Provider Source Jul 25, 2022 01:28 Outpatient Encounter TELEPHONE TRIAGE PM IHE Encounter Template Text not used by [place] Plan of Treatment: Future Appointments (+ 6 months) and Future Tests (+/- 45 days) The Plan of Treatment section includes future care activities for the patient from all [place] treatmentfacilities. This section includes future appointments and future orders which are active, pending orscheduled.Future Appointments This section includes appointments that were scheduled to occur 6 months from the date of the Encounter, up to a maximum of 20 appointments. The data comes from all [place] treatment facilities. Appointment Date/Time Appointment Type Appointment Facili ty Name Aug 05, 2022 11:00 AM AMBULATORY - NONE [facility] Aug 06, 2022 10:00 AM AMBULATORY - SURGERY [facility] Sep 18, 2022 08:00 AM AMBULATORY - NONE [facility] Sep 18, 2022 09:15 AM AMBULATORY - NONE [facility] Sep 18, 2022 11:00 AM AMBULATORY - NONE [facility] Oct 21, 2022 01:00 PM AMBULATORY - NONE [facility] Oct 21, 2022 01:30 PM AMBULATORY - NONE [facility] Oct 21, 2022 02:30 PM AMBULATORY - NONE [facility] Oct 21, 2022 03:00 PM AMBULATORY - SURGERY [facility] Oct 21, 2022 03:30 PM AMBULATORY - NONE [facility] Nov 20, 2022 09:30 AM AMBULATORY - NONE [facility] Nov 20, 2022 10:30 AM AMBULATORY - MEDICINE [facility] Nov 20, 2022 11:00 AM AMBULATORY - MEDICINE [facility] Nov 20, 2022 11:30 AM AMBULATORY - MEDICINE [facility] Nov 20, 2022 12:00 PM AMBULATORY - NONE [facility] Jan 17, 2023 08:30 AM AMBULATORY - MEDICINE [facility] Jan 17, 2023 09:30 AM AMBULATORY - MEDICINE [facility] Active, Pending, and Scheduled Orders This section includes a listing of several types of active, pending, and scheduled orders, including clinic medications orders, diagnostic test orders, procedure orders and consult orders; where the start date of the order is 45 days before the date of the Encounter or 45 days after the date of the Encounter. The data comes from all [place] treatment [facility]. Test Date/Time Test Type Test Details Facility Name Jun 24, 2022 06:55 PM Laboratory - Chemistry EXTRA BLUE TUBE [facility] Order PLASMA WC Jun 24, 2022 06:55 PM Laboratory - Chemistry EXTRA GOLD GEL TUBE [facility] Order SERUM WC Jun 24, 2022 06:55 PM Laboratory - Chemistry EXTRA PURPLE TUBE [facility] Order BLOOD WC Jun 24, 2022 06:55 PM Laboratory - Chemistry EXTRA MINT TUBE [facility] Order PLASMA WC Lab Results: [...] Interpretation Reference Range Comment Jul 19, 2022 [facility] RHEUMATOLOGY CHEM PANEL Spec imen Type: PLASMA 08:08 AM No comment enter ed. Ordering Provid er: JENNA LUIS Report Released Date/Time: Jan 11, 2022 11:04 AM Reporting Lab: [facility] [id number] Performing Lab: [facility] [id number] CREATININE 1.5 H 0.7-1.2 ALKALINE PHOSPHATASE 72 40-150 ALT/SGPT 12 <55 AST/SGOT 11 <34 C-REACTIVE PROTEIN 5.28 H <5.00 CREAT EGFR(CKD-EPI) 49 L >60 Jul 19, 2022 [facility] RHEUMATOLOGY HEME PANEL Spec imen Type: BLOOD 08:08 AM No comment enter ed. Ordering Provid er: JENNA LUIS Report Released Date/Time: Jan 11, 2022 11:04 AM Reporting Lab: [facility] [id number] Performing Lab: [facility] [id number] WBC 13.17 H 4.0-11.0 RBC 3.21 L [...] smoking and tobacco-related health factors from the [place] facility where the Encounter took place.Current Smoking [...] VA-TOBACCO QUIT 1 TO < 5 YRS [facility] Jun 01, 2021 02:00 PM [facility] Dec 31, 2019 10:54 AM VA-TOBACCO FORMER USER [facility] Dec 31, 2019 10:54 AM VA-TOBACCO QUIT < 1 YEAR M [facility] March 23, 2019 09:53 AM VA-TOBACCO FORMER USER [facility] March 23, 2019 09:53 AM VA-TOBACCO QUIT < [facility] YEAR [facility] Jun 10, 2018 10:00 AM CURRENT TOBACCO USER [place] [facility] May 10, 2018 07:27 PM [place] COUNSELING [place] [facility] May 10, 2018 07:27 PM INPT TOBACCO USER [facility] Aug 29, 2017 09:55 AM FORMER TOBACCO USE <1Y [facility] May 26, 2017 10:51 PM [place] [facility] May 26, 2017 10:51 PM INPT [place] [facility] May 03, 2017 09:34 PM [place]PT [place]ING [place] [facility] May 03, 2017 09:34 PM INPT [place] [facility] Sep 18, 2016 01:36 PM FORMER TOBACCO USE <1Y [facility] Aug 10, 2016 03:54 PM INPT TOBACCO USE - PT REFUSED [facility] Aug 01, 2016 06:48 PM [place]PT [place] [facility] Aug 01, 2016 06:48 PM INPT [place] [facility] Feb 08, 2015 09:57 AM CURRENT TOBACCO USER [place] [facility] Nov 29, 2013 10:37 AM [facility] Nov 26, 2013 11:09 AM PATIENT IS TOBACCO USER ANAID GARCIA [facility] Nov 27, 2012 12:12 PM CURRENT TOBACCO USER [facility] KRISTELChelita [facility] Dec 27, 2011 09:44 AM CURRENT TOBACCO USER [facility] Jan 22, 2011 02:38 [...] Feb 25, 2018 ADVANCE DIRECTIVE AURORA MORALES [facility] Feb 24, 2018 ADVANCE DIRECTIVE DISCUSSION AURORA MORALES [facility] May 26, 2017 CLINICAL WARNING MAGO CONTRERAS [facility] May 03, 2017 CLINICAL WARNING SARIAH ENGLE [facility] Aug 10, 2016 CLINICAL WARNING ISABEL BARCENAS [facility] Aug 02, 2016 CLINICAL WARNING AURORA ALMAZAN [facility] Radiology Reports: +/- 30 days of [...] the Encounter. The data comes from all [place] treatment facilities. Date/Time Radiology Report Provider Source Jul 25, 2022 09:21 AM CERVICAL SPINE 4 OR 5 VIEWS: DARRYL WADDELL [facility] REGI MANTILLA [id number] -APR [id number] M Exm Date: JUL 25, 2022@09:21 Req Phys: KALI ELLINGTON Pat Loc: [facility] NEUROS URG STAFF CONSULT (R Img Loc: MAIN X-RAY Service: Unknown (Case [id number] COMPLETE) CERVICAL SPINE 4 OR 5 VIEWS (RAD Detailed) CPT:67919 Reason for Study: C5 fracture Clinical History: Can have completed on same day as neurosurg cli car appointment. [place] IS NOT under investigation for COVID-19 or is COVID-19 negative ETOH use s/p mechanical fall causing C5 pedical fracture, central cord syndrome Responsible provider name and phone number to notify for critical findings if other than u ser placing the order and pager listed below: User placing orde rs pager: [phone] LAST CREATININE 1.3 H (06/24/22) Report Status: Verified Date Reported: JUL 25, 2022 Date Verified: JUL 25, 2022 Grain Picker E-Sig:/ES/DARRYL WADDELL MD Report: EXAMINATION: CERVICAL SPINE [...] Primary Interpreting Staff: DARRYL WADDELL MD, RADIOLOGIST (Grain Picker) /JRT Encounter Notes: All associated encounter notes This section contains the clinical notes associated to the Encounter. Date/Time Encounter Note(s) Provider Source Jul 25, 2022 01:28 PM REPORT OF CONTACT: VANIA BESS [facility] LOCAL TITLE: PATIENT CONTACT NOTE STANDARD TITLE: REPORT OF CONTACT DATE OF NOTE: JUL 25, 2022@13:28 ENTRY DATE: JUL 25, 2022@13:28:45 AUTHOR: VANIA BESS EXP COSIGNER: URGENCY: STATUS: COMPLETED PATIENT CONTACT NOTE Has ADDENDA [facility] called with a REQUEST. RE-Admit to agency. Other: re: resumption of care after hospital/LTF stay IS BACK [place] NEEDING CARE please call [facility] HAS NOTED THAT THEY HAVE FAX, CALLED, LEF T MESSAGES Phone number verified as correct. #[phone] PLEASE FOLLOW UP THANK YOU /abbie BESS LPN LICENSED PRACTICAL NURSE [facility] Signed: 07/25/2022 13:33 Receipt Acknowledged By: 07/25/2022 15:10 /mikal/ MARYELLEN LEON MD Staff Physician 07/25/2022 16:02 /mikal/ RACHAEL WILD RN REGISTERED NURSE for HERI SWANSON APARNA 07/25/2022 ADDENDUM STATUS: COMPLETED LM for [employer] with direct contact information. /abbie WILD RN REGISTERED NURSE Signed: 07/25/2022 16:02 07/26/2022 ADDENDUM STATUS: COMPLETED Spoke with Sherie. She reports that nee ds resumption of care orders after hospitalization. He is receiving skilled n ursing and PT. Payer is Medicare. Verbal orders given. /abbie WILD RN REGISTERED NURSE Signed: 07/26/2022 09:04
--- OUTSIDE RECORDS SUMMARY | 2022-10-13 17:36 | XMS_ITS | Encounter Summary ---
:1950 Author Organization [facility] Address [address] [place] [address] Support Name Relationship Address Phone MADELIN MANTILLA Unavailable [address] [phone] [place] [address] MADELIN MANTILLA Unavailable [address] [phone] [place] [address] DHAVAL MANTILLA Unavailable [address] [place] [address] Insurance Providers: All historical and current Section [...] MEDICARE MEDICARE PART Jul 18, PART B [id number] 800 ANNALEE BUSTILLO (WNR) (M) B 2014 24A [phone] ,REGI MEDICARE MEDICARE PART Apr 17, PART A [id number] 800 ANNALEE BUSTILLO (WNR) (M) A 2012A [phone] ,REGI Selected Encounter This section includes the information on record at [place] for the Encounter. Date/Time Encounter Type Encounter Description Reason Provider Source Jun 28, 2022 12:00 Outpatient Encounter ADMIN CURT RICO [...] The data comes [place] [facility] [place] Appointment Date/Time Appointment Type Appointment Facili ty Name Jul 15, 2022 02:49 PM AMBULATORY - NONE [facility] Jul 16, 2022 12:20 PM AMBULATORY - NONE [facility] Jul 17, 2022 10:22 PM AMBULATORY - NONE [facility] Jul 19, 2022 07:00 AM AMBULATORY - NONE [facility] Jul 19, 2022 08:00 AM AMBULATORY - MEDICINE [facility] Jul 19, 2022 09:00 AM AMBULATORY - MEDICINE [facility] Jul 24, 2022 11:00 AM AMBULATORY - MEDICINE [facility] Jul 25, 2022 09:00 AM AMBULATORY - NONE [facility] Jul 25, 2022 10:30 AM AMBULATORY - NONE [facility] Jul 25, 2022 11:00 AM AMBULATORY - SURGERY [facility] Jul 25, 2022 12:30 PM AMBULATORY - NONE [facility] Aug 05, 2022 11:00 AM AMBULATORY - NONE [facility] Aug 06, 2022 10:00 AM AMBULATORY - SURGERY [facility] S Sep 18, 2022 08:00 AM AMBULATORY - NONE [facility] Sep 18, 2022 09:15 AM AMBULATORY - NONE [facility] Sep 18, 2022 11:00 AM AMBULATORY - NONE [facility] Oct 21, 2022 01:00 PM AMBULATORY - NONE [facility] Oct 21, 2022 01:30 PM AMBULATORY - NONE [facility] Oct 21, 2022 02:30 PM AMBULATORY - NONE [facility] Oct 21, 2022 03:00 PM AMBULATORY - SURGERY [facility] S Active, Pending, and Scheduled Orders [...] Laboratory - COVID-19 AND FLU/RSV DIAG MIN [facility] AM Chemistry Order PANEL(CEPHEID) NASOPHARYNGEAL SWAB STAT WC ONCE Jun 24, 2022 06:55 Laboratory - EXTRA BLUE TUBE PLASMA WC MIN [facility] PM Chemistry Order Jun 24, 2022 06:55 Laboratory - EXTRA GOLD GEL TUBE SERUM MIN [facility] PM Chemistry Order WC Jun 24, 2022 06:55 Laboratory - EXTRA PURPLE TUBE BLOOD [facility] PM Chemistry Order Jun 24, 2022 06:55 Laboratory - EXTRA MINT TUBE PLASMA MIN [place] [facility] PM Chemistry Order Lab Results: +/- 30 [...] Reference Range Comment Jul 19, 2022 [facility] RHEUMATOLOGY CHEM PANEL Spec imen Type: PLASMA 08:08 AM No comment enter ed. Ordering Provid er: JENNA LUIS Report Released Date/Time: Jan 11, 2022 11:04 AM Reporting Lab: [facility] [id number] Performing Lab: [facility] [address] CREATININE 1.5 H 0.7-1.2 ALKALINE PHOSPHATASE 72 40-150 ALT/SGPT 12 <55 AST/SGOT 11 <34 C-REACTIVE PROTEIN 5.28 H <5.00 CREAT EGFR(CKD-EPI) 49 L >60 Jul 19, 2022 [facility] RHEUMATOLOGY HEME PANEL Spec imen Type: BLOOD 08:08 AM No comment enter ed. Ordering Provid er: JENNA LUIS Report Released Date/Time: Jan 11, 2022 11:04 AM Reporting Lab: [facility] [id number] Performing Lab: [facility] [address] WBC 13.17 H 4.0-11.0 RBC 3.21 L [...] 5-15 Jun 24, 2022 09:[address] [facility] URINALYSIS Specim en Type: URINE No comment enter ed. Ordering Provid er: JAYDE MENDOZA Report Released Date/Time: Jun 24, 2022 06:55 PM Reporting [facility] [id number] Performing Lab: [facility] [address] URINE COLOR YELLOW SPECIFIC GRAVITY 1.039 H [...] [facility] [address] [facility] [address] Performing Lab: [facility] [address] AST/SGOT 19 <34 Jun 24, 2022 08:[address] [facility] POTASSIUM Specim en Type: PLASMA No comment enter ed. Ordering Provid er: JAYDE MENDOZA Report Released Date/Time: Jun 24, 2022 08:09 PM Reporting Lab: [facility] [address] [facility] [address] Performing Lab: [facility] [address] POTASSIUM 4.9 3.5-5.1 Jun 24, 2022 08:[address] [facility] PROTEIN,TOTAL Specim en Type: PLASMA No comment enter ed. Ordering Provid er: JAYDE MENDOZA Report Released Date/Time: Jun 24, 2022 08:09 PM Reporting Lab: [facility] [address] [facility] [address] Performing Lab: [facility] [address] [facility] [address] PROTEIN,TOTAL 6.8 6.0-8.3 Jun 24, 2022 07:40 [facility] PROTHROMBIN TIME/INR Spec imen Type: PLASMA PM No comment enter ed. Ordering Provid er: JAYDE MENDOZA Report Released Date/Time: Jun 24, 2022 06:55 PM Reporting Lab: [facility] [address] Performing Lab: [facility] [address] .INR 1.1 0.8-1.1 .PT 12.1 9.4-12.5 Jun 24, 2022 07:32 [facility] COVID-19 DIAGNOSTIC Speci men Type: NASOPHARYNGEAL PM PANEL (CEPHEID) Comment: Cephei d GeneXpert (618) Ordering Provid er: JAYDE MENDOZA Report Released Date/Time: Jun 24, 2022 06:55 PM Reporting Lab: [facility] [address] Performing Lab: [facility] [address] COVID-19 (CEPHEID) Not Detected Not Dete cted [...] 24, 2022 06:55 PM Reporting Lab: [facility] [address] Performing Lab: [facility] [address] WBC 9.67 4.0-11.0 RBC 3.36 L 4.6-6.2 [...] Jun 24, 2022 06:55 PM Reporting Lab: [facility] [address] Performing Lab: [facility] [address] CREATININE 1.3 H 0.7-1.2 UREA NITROGEN 19 [...] Comment Facility Mar 05, 2022 01:30 PM [place]-TOBACCO FORMER USER [facility] Tobacco Use History This [...] 02:00 PM [place]TO[place]CO [place] USED [place] [facility] Dec 31, 2019 10:54 AM VA-TOBACCO FORMER USER [facility] Dec 31, 2019 10:54 AM VA-TOBACCO QUIT < 1 YEAR [place] [facility] March 23, 2019 09:53 AM VA-TOBACCO FORMER USER MIN [facility] March 23, 2019 09:53 AM VA-TOBACCO QUIT < 1 YEAR [place] [facility] Jun 10, 2018 10:00 AM CURRENT TOBACCO USER [place] [facility] May 10, 2018 07:27 PM IN[place] TOBACCO COUNSELING [place] [facility] May 10, 2018 07:27 PM INPT TO[place]ACCO USER [place] [facility] Aug 29, 2017 09:55 AM FORMER TOBACCO USE <1Y MIN [facility] May 26, 2017 10:51 PM INPT TOBACCO COUNSELING [place] [facility] May 26, 2017 10:51 PM INPT TOBACCO USER [place] [facility] May 03, 2017 09:34 PM INPT TOBACCO COUNSELING [place] [facility] May 03, 2017 09:34 PM INPT TO[place]AC[place] USER [place] [facility] Sep 18, 2016 01:36 PM FORMER TOBACCO USE <1Y MIN [facility] Aug 10, 2016 03:54 PM INPT TOBACCO USE - PT REFUSED [facility] Aug 01, 2016 06:48 PM INPT TOBACCO COUNSELING [place] [facility] Aug 01, 2016 06:48 PM INPT TOBACCO USER [place] [facility] Feb 08, 2015 09:57 AM CURRENT TOBACCO USER [place] [facility] Nov 29, 2013 10:37 AM CURRENT TOBACCO USER [place] [facility] Nov 26, 2013 11:09 AM PATIENT IS TOBACCO USER [place] [facility] Nov 27, 2012 12:12 PM CURRENT TOBACCO USER [place] [facility] Dec 27, 2011 09:44 AM CURRENT TOBACCO USER [place] [facility] Jan 22, 2011 02:38 PM CURRENT TOBACCO USER [place] [facility] Mar 13, 2010 12:48 PM CURRENT TOBACCO USER [place] [facility] Advance Directives: All historical and current Section Date Range: From patient's date of to the date document was created. This section includes ALL of a patient's completed or amended [place] Advance and Rescinded Directives. The entries below indicate that a directive exists for the patient, but an actual copy is not included with this document. The data comes from all [facility]. Date Advance Directives Provider Source Feb 25, 2018 ADVANCE DIRECTIVE AURORA MORALES [facility] Feb 24, 2018 ADVANCE DIRECTIVE DISCUSSION AURORA MORALES [facility] May 26, 2017 CLINICAL WARNING [place]ERSONIRDRE Nina [facility] May 03, 2017 CLINICAL WARNING SARIAH ENGLE [facility] Aug 10, 2016 CLINICAL WARNING ISABEL BARCENAS [facility] Aug 02, 2016 CLINICAL WARNING AURORA ALMAZAN [facility] Radiology Reports: +/- 30 days [...] 4 OR 5 VIEWS: DARRYL WADDELL [facility] REGI MANTILLA KRISTOFER [id number] -APR [id number] M Exm Date: JUL 25, 2022@09:21 Req Phys: KALI ELLINGTON Pat Loc: [facility] NEUROS URG STAFF CONSULT (R Img Loc: MAIN X-RAY Service: Unknown (Case [id number] COMPLETE) CERVICAL SPINE 4 OR 5 VIEWS (RAD Detailed) CPT:60848 Reason for Study: C5 fracture Clinical History: Can have completed on same day as neurosurg cli car appointment. [place] IS NOT under investigation for COVID-19 or is COVID-19 negative ETOH use s/p mechanical fall causing C5 pedical fracture, central cord syndrome Responsible provider name and phone number to notify for critical findings if other than u ser placing the order and pager listed below: User placing orde rs pager: [phone] LAST CREATININE 1.3 H (06/24/22) Report Status: Verified Date Reported: JUL 25, 2022 Date Verified: JUL 25, 2022 Campaign Developer E-Sig:/ES/DARRYL WADDELL MD Report: EXAMINATION: CERVICAL [...] Primary Interpreting Staff: DARRYL WADDELL MD, RADIOLOGIST (Campaign Developer) /JRT Encounter Notes: All associated encounter notes This section contains the clinical notes associated to the Encounter. Date/Time Encounter Note(s) Provider Source Jun 28, 2022 12:00 AM NONVA NOTE: CHICA FROST Chelita [facility] LOCAL TITLE: HOME HEALTH - NONVA NOTE STANDARD TITLE: NONVA NOTE DATE OF NOTE: JUN 28, 2022 ENTRY DATE: AUG 05@12:53:11 AUTHOR: CHICA FROST EXP COSIGNER: URGENCY: STATUS: COMPLETED VistA Imaging - Scanned Document This note contains attached HOME HEALTH scanned document(s) received from an outside facility. Open [employer] Display to review the documen t(s). /mikal/ CHICA PLAZA Signed: 08/05/2022 12:53 Jun 28, 2022 12:00 AM NONVA NOTE: LISETTE BERRIOS Chelita [facility] LOCAL TITLE: HOME HEALTH - NONVA NOTE STANDARD TITLE: NONVA NOTE DATE OF NOTE: JUN 28, 2022 ENTRY DATE: AUG 01@09:12:59 AUTHOR: LISETTE BERRIOS EXP COSIGNER: URGENCY: STATUS: COMPLETED VistA Imaging - Scanned Document This note contains attached HOME HEALTH scanned document(s) received from an outside facility. Open [employer] Display to review the documen t(s). /mikal/ LISETTE BERRIOS Product Transfer Pumper - HIT Signed: 08/01/2022 09:12
--- OUTSIDE RECORDS SUMMARY | 2022-10-13 17:36 | XMS_ITS | Encounter Summary ---
:1950 Author Organization [facility] Address [address] [place] [address] Support Name Relationship Address Phone MADELIN MANTILLA Unavailable [address] [phone] [place] [address] MADELIN MANTILLA Unavailable [address] [phone] [place] [address] DHAVAL MANTILLA Unavailable [address] [place] [address] Insurance Providers: All historical and current Section Date Range: From patient's date of to the date document was created.This section includes the names of all active insurance providers for the patient. Insurance Type of Plan Start of End of Group Member Insurance Policy P elli's Provider Coverage Name Policy Policy Number ID Provider's [place] Relationship Coverage Coverage Telephone Name to Policy Number [place] MEDICARE MEDICARE PART Jul 18, PART B [id number] 800 ANNALEE BUSTILLO (WNR) (M) B 2014A [phone] ,REGI MEDICARE MEDICARE PART Apr 17, PART A [id number] 800 ANNALEE BUSTILLO (WNR) (M) A 2012A [id number] ,REGI Selected Encounter This section includes the information on record at [place] for the Encounter. Date/Time Encounter Type Encounter Description Reason Provider Source Jul 29, 2022 01:05 Outpatient Encounter ADMIN CURT RICO PM (MASNONCT) IHE Encounter Template Text not [...] The data comes from all [place] treatment [facility]. Appointment Date/Time Appointment Type Appointment Facili ty Name Aug 05, 2022 11:00 AM AMBULATORY - NONE [facility] Aug 06, 2022 10:00 AM AMBULATORY - SURGERY [facility] Sep 18, 2022 08:00 AM AMBULATORY - NONE [facility] Sep 18, 2022 09:15 AM AMBULATORY - NONE [facility] Sep 18, 2022 11:00 AM AMBULATORY - NONE [facility] Oct 21, 2022 01:00 PM AMBULATORY - NONE [facility] Oct 21, 2022 01:30 PM AMBULATORY - NONE [facility] Oct 21, 2022 02:30 PM AMBULATORY - NONE [facility] Oct 21, 2022 03:00 PM AMBULATORY - SURGERY [facility] S Oct 21, 2022 03:30 PM AMBULATORY - NONE [facility] Nov 20, 2022 09:30 AM AMBULATORY - NONE [facility] Nov 20, 2022 10:30 AM AMBULATORY - MEDICINE [facility] Nov 20, 2022 11:00 AM AMBULATORY - MEDICINE [facility] Nov 20, 2022 11:30 AM AMBULATORY - MEDICINE [facility] Nov 20, 2022 12:00 PM AMBULATORY - NONE [facility] Jan 17, 2023 08:30 AM AMBULATORY - MEDICINE [facility] Jan 17, 2023 09:30 AM [facility]ULATORY [facility]INE [facility] [...] the Encounter. The data comes from all [place] treatment [facility]. Test Date/Time Test Type Test Details Facility Name Jun 24, 2022 06:55 PM Laboratory - Chemistry EXTRA BLUE TUBE MIN [facility] Order PLASMA WC Jun 24, 2022 06:55 PM Laboratory - Chemistry EXTRA GOLD GEL TUBE [facility] Order SERUM WC Jun 24, 2022 06:55 PM Laboratory - Chemistry EXTRA PURPLE TUBE [facility] Order BLOOD WC Jun 24, 2022 06:55 PM Laboratory - Chemistry EXTRA MINT TUBE MIN [facility] Order PLASMA WC Lab Results: [...] Jan 11, 2022 11:04 AM Reporting Lab: [facility] [phone] Performing Lab: [facility] [address] CREATININE 1.5 H 0.7-1.2 ALKALINE PHOSPHATASE 72 40-150 ALT/SGPT 12 <55 AST/SGOT 11 <34 C-REACTIVE PROTEIN 5.28 H <5.00 CREAT EGFR(CKD-EPI) 49 L >60 Jul 19, 2022 [facility] RHEUMATOLOGY HEME PANEL Spec imen Type: BLOOD 08:08 AM No comment enter ed. Ordering Provid er: JENNA LUIS Report Released Date/Time: Jan 11, 2022 11:04 AM [facility] [address] Performing Lab: [facility] [address] WBC 13.17 H 4.0-11.0 RBC 3.21 L [...] took place. Date/Time Smoking Status/Tobacco Use Comment [facility] it Mar 05, 2022 01:30 PM VA-TOBACCO QUIT 1 TO < [address] [facility] Jun 01, 2021 02:00 PM [facility]TOBACCO [facility] Dec 31, 2019 10:54 AM VA-TOBACCO FORMER USER MIN [facility] Dec 31, 2019 10:54 AM [place]-TOBACCO QUIT < 1 YEAR [facility] March 23, 2019 09:53 AM VA-TOBACCO FORMER USER MIN [facility] March 23, 2019 09:53 AM VA-TOBACCO QUIT < [facility] YEAR [facility] Jun 10, 2018 10:00 AM CURRENT TOBACCO USER [place] [facility] May 10, 2018 07:27 PM [facility] [facility] [facility] [place] [facility] May 10, 2018 07:27 PM IN[place]AC[place] [facility] Aug 29, 2017 09:55 AM FORMER TOBACCO USE <1Y MIN [facility] May 26, 2017 10:51 PM [facility] May 26, 2017 10:51 PM [place]PT TOBAC[place] [facility] May 03, 2017 09:34 PM [facility] May 03, 2017 09:34 PM INPT TOBACCO [place] [facility] Sep 18, 2016 01:36 PM FORMER TOBACCO USE <1Y MIN [facility] Aug 10, 2016 03:54 PM INPT TOBACCO USE - PT REFUSED [facility] Aug 01, 2016 06:48 PM [facility] Aug 01, 2016 06:48 PM INPT TOBACCO US[place] [facility] Feb 08, 2015 09:57 AM CURRENT [place]BACCO USER [place] [facility] Nov 29, 2013 10:37 AM CURRENT TOBACCO USER [facility] Nov 26, 2013 11:09 AM PATIENT IS TOBACCO USER [facility] Nov 27, 2012 12:12 PM CURRENT TOBACCO USER [facility] Dec 27, 2011 09:44 AM CURRENT TOBACCO USER [facility] Jan 22, 2011 02:38 [...] 25, 2018 ADVANCE DIRECTIVE ANDREW,AURORA Arias [facility] Feb 24, 2018 ADVANCE DIRECTIVE DISCUSSION AURORA MORALES [facility] May 26, 2017 CLINICAL WARNING MAGO CONTRERAS [facility] May 03, 2017 CLINICAL WARNING SARIAH ENGLE [facility] Aug 10, 2016 CLINICAL WARNING ISABEL BARCENAS [facility] Aug 02, 2016 CLINICAL WARNING NORAHAURORA Carla [facility] Radiology Reports: +/- 30 [...] the Encounter. The data comes from all [place] treatment facilities. Date/Time Radiology Report Provider Source Jul 25, 2022 09:21 AM CERVICAL SPINE 4 OR 5 VIEWS: DARRYL WADDELL [facility] REGI MANTILLA [id number] -APR [id number] M Exm Date: JUL 25, 2022@09:21 Req Phys: KALI ELLINGTON Pat Loc: [facility] NEUROS URG STAFF CONSULT (R Img Loc: MAIN X-RAY Service: Unknown (Case [id number] COMPLETE) CERVICAL SPINE 4 OR 5 VIEWS (RAD Detailed) CPT:33921 Reason for Study: C5 fracture Clinical History: [...] listed below: User placing glenise rs pager: [phone] LAST CREATININE 1.3 H (06/24/22) Report Status: Verified Date Reported: JUL 25, 2022 Date Verified: JUL 25, 2022 Felt Finishing Supervisor E-Sig:/ES/DARRYL WADDELL MD Report: EXAMINATION: CERVICAL SPINE [...] Primary Interpreting Staff: DARRYL WADDELL MD, RADIOLOGIST (Felt Finishing Supervisor) /JRT Encounter Notes: All associated encounter notes This section contains the clinical notes associated to the Encounter. Date/Time Encounter Note(s) Provider Source Jul 16, 2022 01:05 PM NONVA NOTE: [facility] LOC[facility] TITLE: CARDIOLOGY NONVA NOTE STANDARD TITLE: NONVA NOTE DATE OF NOTE: JUL 16, 2022@13:05 ENTRY DATE: JUL 29, 2022@13:06:27 AUTHOR: MILENA DERAS EXP COSIGNER: URGENCY: STATUS: COMPLETED This note contains attached [CARDIOLOGY] scanned document(s) received from an outside facility. Open [employer] Display to review the documen t(s). /mikal/ MILENA DERAS Merchandise Flow Team Leader Signed: 07/29/2022 13:06
--- OUTSIDE RECORDS SUMMARY | 2022-10-13 17:37 | XMS_ITS | Encounter Summary ---
:1950 Author Organization [facility] Address [address] [place] [address] Support Name Relationship Address Phone MADELIN MANTILLA Unavailable [address] [phone] [place] [address] MADELIN MANTILLA Unavailable [address] [phone] [place] [address] DHAVAL MANTILLA Unavailable [address] [place] [address] Insurance Providers: All historical and current Section [...] MEDICARE MEDICARE PART Jul 18, PART B [id number] ANNALEE BUSTILLO (WNR) (M) B 2014A [phone] ,REGI MEDICARE MEDICARE PART Apr 17, PART A [id number] ANNALEE BRYANIENT (WNR) (M) A 2012A [phone] ,[place] Selected Encounter This section includes the information on record at [place] for the Encounter. Date/Time Encounter Type Encounter Reason Provider Source Description Aug 05, 2022 MEDICAL TELEPHONE/ANCILLA ICD-10-CM Z71.3 PRESTON EDEN NT 11:00 AM NUTRITION INDIV RY Dietary counseling SETHI L [place] and surveillance with Provider Comments: Dietary counseling and surveillance IHE Encounter Template Text not used by [place] Assessments - Encounter Diagnoses This section includes the primary and secondary diagnoses documented for the Encounter. Date/Time Primary/Secondary Diagnosis Name Provider Source Diagnosis Aug 05, 2022 PRIMARY Dietary counseling ARNOL EDEN [facility] 11:00 AM and surveillance SETHI L [facility] Aug 05, 2022 SECONDARY Unspecified severe ARNOL EDEN [facility] 11:00 AM protein-calorie SETHI L [facility] malnutrition Plan of Treatment: Future Appointments (+ 6 months) and Future Tests (+/- 45 days) The Plan of Treatment section includes future care activities for the patient from [facility] [place] [facility]. This section includes future appointments and future orders which are active, pending orscheduled.Future Appointments This section includes appointments that were scheduled to occur 6 months from the date of the Encounter, up to a maximum of 20 appointments. The data comes from all [facility]. Appointment Date/Time Appointment Type Appointment Facili ty Name Aug 06, 2022 10:00 AM AMBULATORY - SURGERY [facility] S Sep 18, 2022 08:00 AM AMBULATORY - NONE [facility] Sep 18, 2022 09:15 AM AMBULATORY - NONE [facility] Sep 18, 2022 11:00 AM AMBULATORY - NONE [facility] Oct 21, 2022 01:00 PM AMBULATORY - NONE [facility] Oct 21, 2022 01:30 PM AMBULATORY - NONE [facility] Oct 21, 2022 02:30 PM AMBULATORY - NONE [facility] Oct 21, 2022 03:00 PM AMBULATORY - SURGERY [facility] S Oct 21, 2022 03:30 PM AMBULATORY - NONE [facility] Nov 20, 2022 09:30 AM AMBULATORY - NONE [facility] Nov 20, 2022 10:30 AM AMBULATORY - MEDICINE [facility] Nov 20, 2022 11:00 AM AMBULATORY - MEDICINE [facility] Nov 20, 2022 11:30 AM AMBULATORY - MEDICINE [facility] Nov 20, 2022 12:00 PM AMBULATORY - NONE [facility] Jan 17, 2023 08:30 AM AMBULATORY - MEDICINE [facility] Jan 17, 2023 09:30 AM AMBULATORY - MEDICINE [facility] Active, [...] comes from all [facility]. Test Date/Time Test Type Test Details Facility Name Jun 24, 2022 06:55 PM Laboratory - [facility]ASMA [facility] Jun 24, 2022 06:55 PM Laboratory - Chemistry EXTRA GOLD GEL TUBE [facility] Order SERUM WC Jun 24, 2022 06:55 PM Laboratory - Chemistry EXTRA PURPLE TUBE [place] [facility] Order BLOOD WC Jun 24, 2022 06:55 PM Laboratory - Chemistry EXTRA MINT TUBE [facility] [place] [facility] Order PLASMA WC Lab Results: [...] Interpretation Reference Range Comment Jul 19, 2022 [facility] RHEUMATOLOGY CHEM PANEL Spec imen Type: PLASMA 08:08 AM No comment enter ed. Ordering Provid er: JENNA LUIS Report Released Date/Time: Jan 11, 2022 11:04 AM Reporting Lab: [facility] [id number] Performing Lab: [facility] [id number] CREATININE 1.5 H 0.7-1.2 ALKALINE PHOSPHATASE 72 40-150 ALT/SGPT 12 <55 AST/SGOT 11 <34 C-REACTIVE PROTEIN 5.28 H <5.00 CREAT EGFR(CKD-EPI) 49 L >60 Jul 19, 2022 [facility] RHEUMATOLOGY HEME PANEL Spec imen Type: BLOOD 08:08 AM No comment enter ed. Ordering Provid er: JENNA LUIS Report Released Date/Time: Jan 11, 2022 11:04 AM Reporting [facility] [id number] Performing Lab: [facility] [id number] WBC 13.17 H 4.0-11.0 RBC 3.21 L [...] tobacco-related health factors from the [facility] where the Encounter took place.Current Smoking Status This section includes the most current smoking, or tobacco-related health factor, from the [place] facility where the Encounter took place. Date/Time Current Smoking Status Comment Facility Mar 05, 2022 01:30 PM VA-TOBACCO FORMER USER [facility] Tobacco Use History This section includes a history of the smoking, or tobacco- related health factors, that were collected on or before the date of the Encounter. The data comes from the [facility] where the Encounter took place. Date/Time Smoking Status/Tobacco Use Comment [facility] it Mar 05, 2022 01:30 PM VA-TOBACCO QUIT 1 TO < 5 YRS [facility] Jun 01, 2021 02:00 PM VA-TOBACCO NEVER USED [facility] Dec 31, 2019 10:54 AM VA-TOBACCO FORMER USER [facility] Dec 31, 2019 10:54 AM VA-TOBACCO QUIT < 1 YEAR M [facility] March 23, 2019 09:53 AM VA-TOBACCO FORMER USER [facility] March 23, 2019 09:53 AM VA-TOBACCO QUIT < 1 YEAR M [facility] Jun 10, 2018 10:00 AM CURRENT TOBACCO USER [place] [facility] May 10, 2018 07:27 PM INPT TOBACCO COUNSELING [place] [facility] May 10, 2018 07:27 PM INPT TOBACCO USER [place] [facility] Aug 29, 2017 09:55 AM FORMER TOBACCO USE <1Y [facility] May 26, 2017 10:51 PM INPT TOBACCO COUNSELING [place] [facility] May 26, 2017 10:51 PM INPT TOBACCO USER [place] [facility] May 03, 2017 09:34 PM INPT TOBACCO COUNSELING [place] [facility] May 03, 2017 09:34 PM INPT TOBACCO USER [place] [facility] Sep 18, 2016 01:36 PM FOR[facility] TOBACCO USE <1Y [facility] Aug 10, 2016 03:54 PM INPT TOBACCO USE - PT REFUSED [facility] Aug 01, 2016 06:48 PM INPT TOBACCO COUNSELING ANAID GARCIA [facility] Aug 01, 2016 06:48 PM INPT TOBACCO USER GONZALES LORENZ [facility] Feb 08, 2015 09:57 AM [facility]RENT [facility]AC[facility] Nov 29, 2013 10:37 AM CURRENT [facility]ACCO [facility] Nov 26, 2013 11:09 AM PATIENT IS TOBACCO USER ANAID GARCIA [facility] Nov 27, 2012 12:12 PM [facility]RENT [facility]ACCO [facility] Dec 27, 2011 09:44 AM CURRENT [facility]ACCO [facility] Jan 22, 2011 02:38 PM CURRENT [facility]BACCO USER [facility] Mar 13, 2010 12:48 PM CURRENT [...] WARNING AURORA ALMAZAN [facility] Radiology Reports: +/- 30 days [...] comes from all [place] treatment facilities. Date/Time Radiology Report Provider Source Jul 25, 2022 09:21 AM CERVICAL SPINE 4 OR 5 VIEWS: DARRYL WADDELL [facility] REGI MANTILLA [id number] -APR 28, [id number] 8 M Exm Date: JUL 25, 2022@09:21 Req Phys: KALI ELLINGTON Pat Loc: [facility] NEUROS URG STAFF CONSULT (R Img Loc: MAIN X-RAY Service: Unknown (Case [id number] COMPLETE) CERVICAL SPINE 4 OR 5 VIEWS (RAD Detailed) CPT:04652 Reason for Study: C5 fracture Clinical History: [...] listed below: User placing orde rs pager: [phone] LAST CREATININE 1.3 H (06/24/22) Report Status: Verified Date Reported: JUL 25, 2022 Date Verified: JUL 25, 2022 Mushroom Growing Supervisor E-Sig:/ES/DARRYL WADDELL MD Report: EXAMINATION: CERVICAL [...] Primary Interpreting Staff: DARRYL WADDELL MD, RADIOLOGIST (Mushroom Growing Supervisor) /JRT Encounter Notes: All associated encounter notes This section contains the clinical notes associated to the Encounter. Date/Time Encounter Note(s) Provider Source Aug 05, 2022 07:38 AM NUTRITION EDUCATION NOTE: BRYN EDEN [facility] LOCAL TITLE: EDUCATION NUTRITION STANDARD TITLE: NUTRITION EDUCATION NOTE DATE OF NOTE: AUG 05, 2022@07:38 ENTRY DATE: AUG 05, 2022@07:38:30 AUTHOR: BRYN EDEN EXP COSIGNER: URGENCY: STATUS: COMPLETED NUTRITION EDUCATION OUTPATIENT Initial, phone Time spent: 26 minutes Reason for visit: malnutrition, ONS f/u from inp atient ASSESSMENT: Height: 62.0 in [157.5 cm] (06/24/2022 22:38) Weight: Measurement DT WEIGHT LB(KG)[BMI] 07/24/2022 10:55 123(55.79)[23] 07/19/2022 08:33 121(54.88)[22] 06/24/2022 22:38 116.0(52.62)[21] 05/15/2022 12:50 123.9(56.20)[23] 04/12/2022 08:13 122.1(55.38)[22] Weight change: +7# in ~6 weeks since d/c [place] body weight: 118# Usual body weight: 120-125# per chart review Pertinent Past Medical Histo ry: HTN, HL, etoh & cannabis abuse, GERD, CAD, CKD, paroxysmal afib, others reviewed. Per 07/24 medici ne clinic note, recent dx of mild CHF during 07/16 visit to [facility] ED. Nutrition Related Medications: atorvastatin, D3, B12, folic acid, metoprolol, pantoprazole, MiraLAX, prednisone, sulfasalazine , others reviewed. Non-VA: cephalexin, docusate/sennas, gabapentin, oxycodo ne, MiraLAX, others reviewed. EDUCATION SCREENING PARTICIPANTS: Patient BARRIERS/SPECIAL NEEDS: no barriers identified READINESS TO LEARN: no barriers Patient subjective statements: was hospitalized 06/24 -06/26 after a fall r/t etoh intoxication. Since d/c, he has gained weight and states that he feels a lot better and would like to continue gaining weight so his clothes f it better. He reports that both he and his have stopped drinking alcohol after his hospitalization, and his appetite has improved (for a while when I was losing weight, I was drinking a lot) and he is able to eat more during the day. Typically eats 3 meals/day plus snacks at home (I'm a grazer), notes that he t asad to eat meat/protein at least 3x/day. He and his live on shared pro perty with his adult son, who controls their finances and grocery shops for . [place] has no nutrition questions or concerns at this time (I'm gonna k eep eating!). Diet Recall Meal 1: omelet, banana Snack: bowl of cereal, granola bar Meal 2: ham sandwich Meal 3: soup and grilled cheese Snack: cookies, granola bar s, popsicles, pie, ice cream, fruit cups (2-3x/day) Fluid intake: pop, tea, coffee, water, a lot o f milk (2%) Meal preparation: , son shops for groceries Dining out: not since hospital d/c, used to go t o [place] or get pizza, tacos Alcohol: reports kae t he & have stopped drinking since recent falls Food Allergies: none Physical Activity: makes [employer], act ivity very limited d/t neck injury but able to walk without walker. Looking for sharma to anticipated neck brace removal at the end of September. Problems related to food sec urity: denies; son buys plenty of groceries, vet & make a list if they'd like anything specifi c. Patient identifies problems with the following: - Chewing: missing many teeth, has been a barri er to eating better (it's terrible, it's really hard). He avoids hard/to ugh foods d/t needing to chew foods with his gums. - Swallowing: no problem swallowing - Nausea/vomiting: reported issues in the past when taking pills, believes was r/t poor PO intake with ETOH consu mption and taking pills on an empty stomach. Reports that n/v have reso lved with improved intake. - BMs: regular, BMs are firm Malnutrition Assessment met the criteria for severe malnutrition during inpatient nutrition assessment on 06/25/22 d/t praful dequate energy intake, mild body fat loss and severe muscle loss. Unable to re-as sess d/t phone visit today, states that he's gaining weight but still all flab. Suspect kae t continues to be malnourished, although nutrition status likely i mproving with weight gain, increased PO intake, and no ETOH consumption. Wi ll perform NFPE at next scheduled appointment in clinic. Pertinent lab results: C-REACTIVE PROTEIN 5.28 H (07/19/22) CREATININE 1.5 H (07/19/22) CREAT EGFR 49 L (07/19/22) HGB 10.9 L (07/19/22) HCT 33.9 L (07/19/22) Estimated nutrient needs based on actual body we ight [id number] calories/day 30-35 kcal/kg 56-67 grams protein/day 1.0-1.2 g/kg *monitor r enal fx 3525-8008 ml fluids/day 1 ml/kcal NUTRITION DIAGNOSIS: Inadequate oral intake r/t p oor appetite/intake with hx of ETOH intake replacing food AEB subjective statements and ngozi e to gain weight, recent malnutrition dx (06/25) based on muscle/fat loss a nd reduced PO intake. INTERVENTION: Provided nutrition education/counseling: - Encouraged small, frequent meals & sn acks throughout the day to increase PO intake. Encouraged to continue increasing PO in take as able, adding sides to meals and additional snacks throughout the day to promote desired weight & muscle gain. - Discussed ways to add protein/calories to nadine ls is already eating (adding butter, oils, gravies/sauces, peanut bu tter, dry milk powder). Reviewed that these additions will also make fo ods softer and easier to chew with 's reported difficulty chew ing. - Provided suggestions for high protein/calorie snack options (cottage cheese, yogurt, peanut butter, fruit cups). - Reviewed food-first approach, asked a bout protein drinks he had received in the hospital. Explained that ONS is intended for short-term nutrition supplementation and that adequate nut rition via PO intake is encouraged to promote long-term weight gain/karthikeyan ntenance. happy to focus on PO intake at this time, will revisi t need for ONS at f/u appointment in clinic when updated NFPE can be performed. Education provided using: Discussion PARTICIPANT(S) RESPONSE (OUTCOME): Able to communicate or demonstrate understanding with no further questions. MONITORING/EVALUATION: Patient's nutrition/activ ity related goals: Goal 1 - Include a source of protein at each me al Goal 2 - At least 2 high calorie snacks/day Clinical outcome goal: Weight maintained >120# FOLLOW UP: Follow up appointment will be schedul ed: 10/21 at 2:30pm in clinic /mikal/ BRYN EDEN MBA, FREDIN REGISTERED DIETITIAN, 4E PACT Signed: 08/05/2022 11:43
--- OUTSIDE RECORDS SUMMARY | 2022-10-13 17:37 | XMS_ITS | Encounter Summary ---
:1950 Author Organization [facility] Address [address] [place] [address] Support Name Relationship Address Phone MADELIN MANTILLA Unavailable [address] [phone] [place] [address] MADELIN MANTILLA Unavailable [address] [phone] [place] [address] DHAVAL MANTILLA Unavailable [address] [place] [address] Insurance Providers: All historical and current Section [...] MEDICARE MEDICARE PART Jul 18, PART B [id number] 800 ANNALEE BRYANIENT (WNR) (M) B 2014A [phone] ,REGI MEDICARE MEDICARE PART Apr 17, PART A [id number] 800 ANNALEE BRYANIENT (WNR) (M) A 2012A [phone] ,REGI Selected Encounter This section includes the information on record at [place] for the Encounter. Date/Time Encounter Type Encounter Description Reason Provider Source Aug 01, 2022 01:35 Outpatient Encounter COMMUNITY CARE PM CONSULT IHE Encounter Template Text not used [...] 06, 2022 10:00 AM AMBULATORY - SURGERY [facility] Sep 18, 2022 08:00 AM [...] 21, 2022 03:00 PM AMBULATORY - SURGERY [facility] Oct 21, 2022 03:30 PM AMBULATORY - NONE [facility] Nov 20, 2022 09:30 AM AMBULATORY - NONE [facility] Nov 20, 2022 10:30 AM AMBULATORY - MEDICINE [facility] Nov 20, 2022 11:00 AM AMBULATORY - MEDICINE [facility] Nov 20, 2022 11:30 AM AMBULATORY - MEDICINE [facility] Nov 20, 2022 12:00 PM AMBULATORY - NONE [facility] Jan 17, 2023 08:30 AM AMBULATORY - MEDICINE [facility] Jan 17, 2023 09:30 AM AMBULATORY - MEDICINE [facility] Active, Pending, and Scheduled Orders This section includes a listing of several types of active, pending, and scheduled orders, including clinic medications orders, diagnostic test orders, procedure orders and consult orders; where the start date of the order is 45 days before the date of the Encounter or 45 days after the date of the Encounter. The data comes from all [facility]. Test Date/Time Test Type Test Details Facility Name Jun 24, 2022 06:55 PM Laboratory - Chemistry EXTRA BLUE TUBE [facility] Order PLASMA WC Jun 24, 2022 06:55 PM Laboratory - Chemistry EXTRA GOLD GEL TUBE [facility] Order SERUM WC Jun 24, 2022 06:55 PM Laboratory - Chemistry EXTRA PURPLE TUBE [facility] Order BLOOD WC Jun 24, 2022 06:55 PM Laboratory - Chemistry EXTRA MINT TUBE [facility] Order PLASMA WC Lab Results: [...] Jan 11, 2022 11:04 AM Reporting Lab: [facility] [id number] Performing Lab: [facility] [id number] CREATININE 1.5 H 0.7-1.2 ALKALINE PHOSPHATASE 72 40-150 ALT/SGPT 12 <55 AST/SGOT 11 <34 C-REACTIVE PROTEIN 5.28 H <5.00 CREAT EGFR(CKD-EPI) 49 L >60 Jul 19, 2022 [facility] RHEUMATOLOGY HEME PANEL Spec imen Type: BLOOD 08:08 AM No comment enter ed. Ordering Provid er: JENNA LUIS Report Released Date/Time: Jan 11, 2022 11:04 AM Reporting Lab: [facility] [id number] Performing Lab: [facility] [id number] WBC 13.17 H 4.0-11.0 RBC 3.21 L [...] 2022 01:30 PM VA-TOBACCO FORMER USER [facility] Tobacco Use History This section includes [...] 2021 02:00 PM VA-TOBACCO [facility]ED [facility] Dec 31, 2019 10:54 AM VA-TOBACCO FORMER USER [facility] Dec 31, 2019 10:54 AM VA-TOBACCO QUIT < 1 YEAR M [facility] March 23, 2019 09:53 AM VA-TOBACCO FORMER USER MIN [facility] March 23, 2019 09:53 AM VA-TOBACCO QUIT < 1 YEAR M [facility] Jun 10, 2018 10:00 AM CURRENT [facility]ACCO [facility] May 10, 2018 07:27 PM [facility] May 10, 2018 07:27 PM INPT [place]AC[place] [facility] Aug 29, 2017 09:55 AM FORMER TOBACCO USE <1Y MIN [facility] May 26, 2017 10:51 PM [facility] May 26, 2017 10:51 PM INPT TOBACCO US[place] [facility] May 03, 2017 09:34 PM INPT [place] COUN[place]ING [place] [facility] May 03, 2017 09:34 PM INPT [place]BACCO US[place] [facility] Sep 18, 2016 01:36 PM FORMER TOBACCO USE <1Y MIN [facility] Aug 10, 2016 03:54 PM INPT TOBACCO USE - PT REFUSED [facility] Aug 01, 2016 06:48 PM [facility] Aug 01, 2016 06:48 PM INPT [place]ACCO US[place] [facility] Feb 08, 2015 09:57 AM [facility] Nov 29, 2013 10:37 AM CURRENT TOBACCO USER [facility] Nov 26, 2013 11:09 AM PATIENT IS TOBACCO USER ANAID GARCIA [facility] Nov 27, 2012 12:12 PM CURRENT TOBACCO USER [facility] Dec 27, 2011 09:44 AM CURRENT TOBACCO USER [facility] Jan 22, 2011 02:38 PM CURRENT TOBACCO USER [facility] Mar 13, 2010 12:48 PM CURRENT TOBACCO USER [facility] Advance Directives: All historical and current Section Date Range: From patient's date of to the date document was created. This section includes ALL of a patient's completed or amended [place] Advance and Rescinded Directives. The entries below indicate that a directive exists for the patient, but an actual copy is not included with this document. The data comes from all [facility]. Date Advance Directives Provider Source Feb 25, 2018 ADVANCE DIRECTIVE ANDREWAURORA PRESTON [facility] Feb 24, 2018 ADVANCE DIRECTIVE DISCUSSION AURORA MROALES [facility] May 26, 2017 CLINICAL WARNING MAGO CONTRERAS [facility] May 03, 2017 CLINICAL WARNING SARIAH ENGLE [facility] Aug 10, 2016 CLINICAL WARNING ISABEL BARCENAS [facility] Aug 02, 2016 CLINICAL WARNING AURORA ALMAZAN [facility] Radiology Reports: +/- 30 days [...] data comes from all [place] treatment facilities. Date/Time Radiology Report Provider Source Jul 25, 2022 09:21 AM CERVICAL SPINE 4 OR 5 VIEWS: DARRYL WADDELL [facility] REGI MANTILLA [id number] -APR [id number] M Exm Date: JUL 25, 2022@09:21 Req Phys: KALI ELLINGTON N Pat Loc: [facility] NEUROS URG STAFF CONSULT (R Img Loc: MAIN X-RAY Service: Unknown (Case [id number] COMPLETE) CERVICAL SPINE 4 OR 5 VIEWS (RAD Detailed) CPT:22721 Reason for Study: C5 fracture Clinical History: [...] listed below: User placing orde rs pager: [phone] LAST CREATININE 1.3 H (06/24/22) Report Status: Verified Date Reported: JUL 25, 2022 Date Verified: JUL 25, 2022 Marketing Operations Assistant E-Sig:/ES/DARRYL WADDELL MD Report: EXAMINATION: CERVICAL SPINE [...] Primary Interpreting Staff: DARRYL WADDELL MD, RADIOLOGIST (Marketing Operations Assistant) /JRT Encounter Notes: All associated encounter notes This section contains the clinical notes associated to the Encounter. Date/Time Encounter Note(s) Provider Source Aug 01, 2022 01:35 PM NONVA NOTE: HENRI TERAN IS [facility] LOCAL TITLE: COMMUNITY CARE-CARE COORDINATION [facility] NOTE STANDARD TITLE: NONVA NOTE DATE OF NOTE: AUG 01, 2022@13:35 ENTRY DATE: AUG 01, 2022@13:35:36 AUTHOR: HENRI TERAN EXP COSIGNER: URGENCY: STATUS: COMPLETED Please see record attached to this note - vet ma y need prothetics consult for nebulizer and accessories. /imkal/ HENRI TERAN drill instructor It Applications Analyst Signed: 08/01/2022 13:36 Receipt Acknowledged By: * AWAITING SIGNATURE * MARYELLEN LEON * AWAITING SIGNATURE * HERI BRAUN
--- OUTSIDE RECORDS SUMMARY | 2022-10-13 17:37 | XMS_ITS | Encounter Summary ---
:1950 Author Organization [facility] Address [address] [place] [address] Support Name Relationship Address Phone MADELIN MANTILLA Unavailable [address] [phone] [place] [address] MADELIN MANTILLA Unavailable [address] [phone] [place] [address] DHAVAL MANTILLA Unavailable [address] [place] [address] Insurance Providers: All historical and current Section [...] MEDICARE MEDICARE PART Jul 18, PART B [id number] ANNALEE BUSTILLO (WNR) (M) B [id number] [id number] ,REGI MEDICARE MEDICARE PART Apr 17, PART A [id number] ANNALEE BUSTILLO (WNR) (M) A [id number] [id number] ,REGI Selected Encounter This section includes the information on record at [place] for the Encounter. Date/Time Encounter Type Encounter Reason Provider Source Description Aug 06, 2022 OFFICE O/P NEW UROLOGY CLINIC ICD-10-CM R39.14 ME DIVYA ARGUELLO 10:00 AM LOW 30-44 MIN Feeling of K incomplete bladder emptying with Provider Comments: Feeling of Incomplete Bladder Emptying IHE Encounter Template Text not used by [facility] Assessments - Encounter Diagnoses This section includes the primary and secondary diagnoses documented for the Encounter. Date/Time Primary/Secondary Diagnosis Name Provider Source Diagnosis Aug 06, 2022 PRIMARY Feeling of LAKESHA ARGUELLO V A 11:59 AM incomplete K [facility] bladder emptying Aug 06, 2022 SECONDARY Fracture of neck, LAKESHA ARGUELLO [facility] 11:59 AM unspecified, K [facility] subsequent encounter Aug 06, 2022 SECONDARY Frequency of LAKESHA ARGUELLO V A 11:59 AM micturition [facility] Plan of Treatment: Future Appointments (+ 6 months) and Future Tests (+/- 45 days) The Plan of Treatment section includes future care activities for the patient from [facility] [place] [facility] This section includes future appointments and future orders which are active, pending orscheduled.Future Appointments This section includes appointments that were scheduled to occur 6 months from the date of the Encounter, up to a maximum of 20 appointments. The data comes from all [place] treatment [facility]. Appointment Date/Time Appointment Type Appointment Facili ty Name Sep 18, 2022 08:00 AM AMBULATORY - NONE [facility] Sep 18, 2022 09:15 AM AMBULATORY - NONE [facility] Sep 18, 2022 11:00 AM AMBULATORY - NONE [facility] Oct 21, 2022 01:00 PM AMBULATORY - NONE [facility] Oct 21, 2022 01:30 PM AMBULATORY - NONE [facility] Oct 21, 2022 02:30 PM AMBULATORY - NONE [facility] Oct 21, 2022 03:00 PM AMBULATORY - SURGERY [facility] Oct 21, 2022 03:30 PM AMBULATORY - NONE [facility] Nov 20, 2022 09:30 AM AMBULATORY - NONE [facility] Nov 20, 2022 10:30 AM AMBULATORY - MEDICINE [facility] Nov 20, 2022 11:00 AM AMBULATORY - MEDICINE [facility] Nov 20, 2022 11:30 AM AMBULATORY - MEDICINE [facility] Nov 20, 2022 12:00 PM AMBULATORY - NONE [facility] Jan 17, 2023 08:30 AM AMBULATORY - MEDICINE [facility] Jan 17, 2023 09:30 AM [facility] [...] the Encounter. The data comes from all [place] treatment [facility]. Test Date/Time Test Type Test Details Facility Name Jun 24, 2022 06:55 PM Laboratory - Chemistry EXTRA BLUE TUBE [facility] Order PLASMA WC Jun 24, 2022 06:55 PM Laboratory - Chemistry EXTRA GOLD GEL TUBE [facility] Order SERUM WC Jun 24, 2022 06:55 PM Laboratory - Chemistry EXTRA PURPLE TUBE [facility] Order BLOOD WC Jun 24, 2022 06:55 PM Laboratory - Chemistry EXTRA MINT TUBE [facility] Order PLASMA WC Lab Results: +/- [...] Reference Range Comment Jul 19, 2022 [facility] RHEUMATOLOGY CHEM PANEL Spec imen Type: PLASMA 08:08 AM No comment enter ed. Ordering Provid er: JENNA LUIS Report Released Date/Time: Jan 11, 2022 11:04 AM Reporting Lab: [facility] [id number] Performing Lab: [facility] [id number] CREATININE 1.5 H 0.7-1.2 ALKALINE PHOSPHATASE 72 40-150 ALT/SGPT 12 <55 AST/SGOT 11 <34 C-REACTIVE PROTEIN 5.28 H <5.00 CREAT EGFR(CKD-EPI) 49 L >60 Jul 19, 2022 [facility] RHEUMATOLOGY HEME PANEL Spec imen Type: BLOOD 08:08 AM No comment enter ed. Ordering Provid er: JENNA LUIS Report Released Date/Time: Jan 11, 2022 11:04 AM Reporting Lab: [facility] [id number] Performing Lab: [facility] [id number] WBC 13.17 H 4.0-11.0 RBC 3.21 L [...] tobacco-related health factors from the [facility] where the Encounter took place.Current Smoking Status This section includes the most current smoking, or tobacco-related health factor, from the [place] facility where the Encounter took place. Date/Time Current Smoking Status Comment Facility Mar 05, 2022 01:30 PM VA-TOBACCO FORMER USER [facility] Tobacco Use History This section includes a history of the smoking, or tobacco- related health factors, that were collected on or before the date of the Encounter. The data comes from the [facility] where the Encounter took place. Date/Time Smoking Status/Tobacco Use Comment [facility] Mar 05, 2022 01:30 PM VA-TOBACCO QUIT 1 TO < [address] [facility] Jun 01, 2021 02:00 PM VA-TOBACCO NEVER USED [facility] Dec 31, 2019 10:54 AM VA-TOBACCO FORMER USER [facility] Dec 31, 2019 10:54 AM VA-TOBACCO QUIT < 1 YEAR M [facility] March 23, 2019 09:53 AM VA-TOBACCO FORMER USER [facility] March 23, 2019 09:53 AM VA-TOBACCO QUIT < 1 YEAR [place] [facility] Jun 10, 2018 10:00 AM CURRENT TOBACCO USER [place] [facility] May 10, 2018 07:27 PM [facility]AC[facility] May 10, 2018 07:27 PM [place]AC[place] [facility] Aug 29, 2017 09:55 AM FORMER TOBACCO USE <1Y [facility] May 26, 2017 10:51 PM INPT TOBACCO COUNSELING [place] [facility] May 26, 2017 10:51 PM INPT TO[place]ACCO US[place] [facility] May 03, 2017 09:34 PM [facility]AC[facility] [place] [facility] May 03, 2017 09:34 PM INPT TOBACCO USER [facility]AL[facility]EN[facility] Sep 18, 2016 01:36 PM FORMER TOBACCO USE <1Y MIN [facility] Aug 10, 2016 03:54 PM INPT TOBACCO USE - PT REFUSED [facility] Aug 01, 2016 06:48 PM INPT TOBACCO [facility]SEL[facility] Aug 01, 2016 06:48 PM INPT TOBACCO USER GON[facility]ALES [facility]EN[facility] Feb 08, 2015 09:57 AM CURRENT [facility]ACCO [facility] Nov 29, 2013 10:37 AM CURRENT [facility]AC[facility] Nov 26, 2013 11:09 AM PATIENT IS TOBACCO USER [facility] Nov 27, 2012 12:12 PM CURRENT TOBACCO USER [facility] Dec 27, 2011 09:44 AM CURRENT TOBACCO USER [facility] Jan 22, 2011 02:38 PM CURRENT [facility]ACCO [facility] Mar 13, 2010 12:48 PM CURRENT TOBACCO USER [facility] Advance Directives: All historical and [...] ALMAZAN [facility] Radiology Reports: +/- 30 days of the [...] Encounter. The data comes from all [facility] treatment facilities. Date/Time Radiology Report Provider Source Jul 25, 2022 09:21 AM CERVICAL SPINE 4 OR 5 VIEWS: DARRYL WADDELL [facility] REGI MANTILLA [id number] -APR 28, 194 8 M Exm Date: JUL 25, 2022@09:21 Req Phys: RADHAKYLERCharlotteKALI N Pat Loc: [facility] NEUROS URG STAFF CONSULT (R Img Loc: MAIN X-RAY Service: Unknown (Case [id number] COMPLETE) CERVICAL SPINE 4 OR 5 VIEWS (RAD Detailed) CPT:60451 Reason for Study: C5 fracture Clinical History: Can have completed on same day as neurosurg cli car appointment. [place] IS NOT under investigation for COVID-19 or is COVID-19 negative ETOH use s/p mechanical fall causing C5 pedical fracture, central cord syndrome Responsible provider name and phone number to notify for critical findings if other than u ser placing the order and pager listed below: User placing orde rs pager: [phone] LAST CREATININE 1.3 H (06/24/22) Report Status: Verified Date Reported: JUL 25, 2022 Date Verified: JUL 25, 2022 Casino [employer] Supervisor E-Sig:/ES/DARRYL WADDELL MD Report: EXAMINATION: CERVICAL SPINE 4 OR 5 VIEWS, 022 9:21 AM COMPARISON: CT of the neck dated 07/16/2018. HISTORY: Reason for Study: C5 fracture Can have completed on same day as neurosurg cli car appointment. [place] IS NOT under investigation for COVID-19 or [...] Primary Interpreting Staff: DARRYL WADDELL MD, RADIOLOGIST ([employer]ino [employer]ot Supervisor) /JRT Encounter Notes: All associated encounter notes This section contains the clinical notes associated to the Encounter. Date/Time Encounter Note(s) Provider Source Aug 06, 2022 10:53 AM UROLOGY NURSING OUTPATIENT NOTE: Saadia HOWARD [facility] LOCAL TITLE: UROLOGY CLINIC NURSING NOTE STANDARD TITLE: UROLOGY NURSING OUTPATIENT NOTE DATE OF NOTE: AUG 06, 2022@10:53 ENTRY DATE: AUG 06, 2022@10:53:52 AUTHOR: MINI HOWARD EXP COSIGNER: URGENCY: STATUS: COMPLETED Nursing Procedures: Residual Urine (RU) Patient instructed and verbalizes that s/he has emptied the bladder completely. Ultrasound RU: 0 cc /es/ MINI HOWARD LPN LICENSED PRACTICAL NURSE Signed: 08/06/2022 10:54 Aug 06, 2022 10:05 AM UROLOGY CONSULT: LAKESHA ARGUELLO [facility] LOCAL TITLE: UROLOGY CONSULT STANDARD TITLE: UROLOGY CONSULT DATE OF NOTE: AUG 06, 2022@10:05 ENTRY DATE: AUG 06, 2022@10:06:02 AUTHOR: LAKESHA ARGUELLO EXP COSIGNER: URGENCY: STATUS: COMPLETED Chief Complaint: Urinary Retention REGI Iyer is a 72 year old Vet jennifer who presents for recommendations regarding ur inary retention. Mr. Mantilla experienced a fall in June resulting in a C5 ped icle fracture. He states that he is an alcoholic and was drunk and fell from his bed and cut his head open. At the time, he also had weakness in his hands and numbness/tingl ing in fingertips which was concerning for central cord syndrome. He underwent an MRI o f the cervical spine which showed compression of the ce rvical cord around C4-5 and C5-6. He was placed in a collar [place] sent [place] the [place] f or rehab. He had a castro catheter until 3 weeks ago when the catheter was removed. He is on tamsulos in 0.4 mg daily since he left the hospital 3 weeks ago. He states that he is v oiding much better on his own now. He does have a history of CKD. Serum Creat = 1.5 on 07/19/2022. Additional health hx is positive for HTN, Alcohol Abuse, Ca nnabis Abuse, Hyperlipidemia, RA, A-fib on chronic anticoagulation, Elevated L FTs. He comes in today for recommendations. URINARY SYMPTOMS Daytime freq: q 1-2 hours during the daytime Nocturia: 3-4 times a night Urinary stream: Urinary stream is good, some pos t void dribbling- he urinates sitting and that is helpful Urgency: on occasion Incontinence: on rare occasion no pads Hesitancy: denies Double voiding: sometimes Hx of retention: Had catheter in his bladder aft er fall and neck injury at C4/C5, C5/C6 Hematuria: denies History of UTI: denies Hx prostate surgery: denies Sensation of incomplete emptying: denies Alpha marianne: Tamsulosin 0.4 mg daily. Finasteride: Bowel movements: Fluid intake: 2 large insulated cups of water. Caffeine intake: He drinks a lot of coffee 2 cup s, pop- 3 cans IPSS- QoL- SEXUAL SYMPTOMS Erectile dysfunction: not sexually active Sexual desire: Normal Erection quality (1-4): PDE5I use: denies ICI or MUSE use: denies ADRIAN use: denies Testosterone use: denies Ejaculatory dys: denies Penile curvature: denies History of STI: denies IIEF: PAST MEDICAL HISTORY Benign essential hypertension ([facility] [id number] loss (ICD-9-CM 389.9) HTN - Hypertension ([facility] [id number]) Hyperlipidemia ([facility] [id number]) Alcohol abuse ([facility] [id number]) Cannabis abuse ([facility] [id number]) Pain in joint involving shoulder region Anemia ( [facility] [id number]) Jt Replcmnt Stat, Knee (ICD-9-CM V43.65)Gastroes ophageal reflux disease ([facility] [id number]) CAD - Coronary artery disease ([facility] 35595Vvolu no n-ST segment elevation myocardial infarction ([facility] [id number]) Chronic kidney disease ([facility] [id number]) Rib fract ure ([facility] [id number]) Pain of right shoulder joint ([facility] [id number] landry n ([facility] [id number]) Ankle pain ([facility] [id number]) Rhinitis ([facility] [id number]) Seropositive rheumatoid arthritis (SCT 2Multifoc al atrial tachycardia ([facility] [id number]) Elevated liver enzymes level ([facility] [id number] al atrial fibrillation ([facility] [id number]) Long-term current use of anticoagulant (Drug mon itoring done ([facility] [id number]) PAST SURGICAL HISTORY NOV 23, 2013 Proc: Right total knee arthroplasty Medications: Active Outpatient Medications (including Supplie s): Active Outpatient Medications Status 1) ACETAMINOPHEN 500MG TAB TAKE TWO TABLETS BY M OUTH ACTIVE FOUR TIMES A DAY NEEDED *NOT TO EXCEED 4000M G IN 24 HOURS* FOR PAIN 2) ADALIMUMAB 40MG/0.8ML INJ PEN KIT INJECT 40 M G UNDER ACTIVE THE SKIN EVERY 2 WEEKS 3) ALBUTEROL 90MCG (CFC-F) 200D ORAL INHL INHALE 2 PUFFS ACTIVE BY INHALATION EVERY 4 HOURS NEEDED FOR IMMED IATE RELIEF OF SHORTNESS OF BREATH *SHAKE WELL* 4) AMIODARONE HCL (PACERONE) 200MG TAB TAKE ONE TABLET ACTIVE BY MOUTH EVERY DAY FOR HEART RHYTHM - TAKE WITH FOOD 5) APIXABAN 5MG TAB TAKE ONE TABLET BY MOUTH GISSELLE RY 12 ACTIVE HOURS TO PREVENT BLOOD CLOTS & STROKE. 6) ATORVASTATIN CALCIUM 80MG TAB TAKE ONE TABLET BY ACTIVE MOUTH AT BEDTIME FOR CHOLESTEROL REPLACES SIMVASTATIN 7) CHOLECALCIF 25MCG (D3-1,000UNIT) TAB TAKE ONE TABLET ACTIVE BY MOUTH EVERY DAY 8) CYANOCOBALAMIN 1000MCG TAB TAKE ONE TABLET BY MOUTH ACTIVE EVERY DAY 9) FLUTICASONE PROP 50MCG 120D NASAL INHL SPRAY 1 SPRAY ACTIVE IN EACH NOSTRIL TWICE A DAY NEEDED FOR RUNNY NOSE USE REGULARLY FOR RELIEF OF ALLERGIES/CONGESTION 10) FOLIC ACID 1MG TAB TAKE ONE TABLET BY MOUTH EVERY DAY ACTIVE 11) GABAPENTIN 300MG CAP TAKE ONE CAPSULE BY KIRSTIN TH THREE ACTIVE TIMES A DAY 12) LIDOCAINE 5% PATCH APPLY 1 [...] ONE CAPSULE BY MOUTH AT ACTIVE BEDTIME Active Non-VA Medications Status 1) Non-VA CEPHALEXIN [...] CAP 0.4MG MOUTH E VERY DAY ACTIVE 29 Total Medications Allergies: LISINOPRIL (Jun 01, 2021) FAMILY HISTORY Hx of prostate cancer: denies Hx of renal cancer: denies Hx of bladder cancer: denies Father: . Age 93 CVA. ? prostate issues Mother: . Age 60s. Aneurysm. Brother: Alive. Age 72. Bad back Sister: . Age 64 y/o. Multiple Sclerosis SOCIAL HISTORY Lives at home with: Tobacco use: Quit smoking cigarettes 8 years. Sm oked cigarettes 40 years intermittently. Smokes marijuana daily - pain an d recreational LUNG CANCER SCREENING (LCS) [C] 12/31/2019 Lcs Packs/Day 0.5 Lcs Years Smoked 50 Alcohol use: He drank ETOH daily until about a m onth ago beer and whiskey. 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 He is wearing a C-collar. HEENT: denies complaints of headache, change in vision, wears reading glasses, SELDOVIA wears hearing aids on occasion. Cardio: denies chest pain/palpitations Gastro: denies dysphagia, nausea, vomiting : See HPI Musc: New cervical spine injury. Denies much for pain. He fell due to being intoxicated. Neuro: denies weakness, Numbness and tingling in both arms and down his body and then goes away. numbness in fingers. He does have gait difficulties and is ambulating with a walker. Psych: denies new onset depression, mood changes , anxiety Skin: denies rashes Heme: denies easy bruising/bleeding PHYSICAL EXAM ====== VS - Vital Signs 07/24/2022 WNL but blood pressu re is low at 95/60. Asymptomatic. Gen: no acute distress, axox3, has C-collar on Neck: no JVD, trachea midline, no abnormal adeno mary Resp: No increased work of breathing, Decreased breath sounds throughout bilaterally Abd: Soft, nontender, nondistended, no visible s cars, no flank pain bilat Skin: Warm and dry, no visible rashes/bruises Ext: No cyanosis, or edema. Neuro: Numbness and tingling in fingers bilatera lly : Penis circumcised with redundant foreskin Normal orthotopic meatus. No drainage is noted. No palpable penile plaques Testes descended bilat, no masses noted. PITO: Normal sphincter tone. no fecal impaction or mas ses noted. Prostate is 35 grams No discreet nodules noted. PVR today: 0 ccs LABS: ====== PSA - 01/11/2015= 1.84 ng/ml Collection DT Specimen Test Name Result Units Re f Range 06/24/2022 19:29 PLASMA!! SODIUM 133 L mmol/L 13 6 - 145 06/24/2022 20:24 PLASMA POTASSIUM 4.9 mmol/L 3.5 - 5.1 06/24/2022 19:29 PLASMA!! CHLORIDE 103 mmol/L 98 - 107 06/24/2022 19:29 PLASMA!! CO2 22 mmol/L 22 - 29 06/24/2022 19:29 PLASMA!! ANION GAP 8 mmol/L 5 - 15 06/24/2022 19:29 PLASMA!! UREA NITROGEN 19 mg/dL 8 - 26 07/19/2022 08:08 PLASMA CREATININE 1.5 H mg/dL 0 .7 - 1.2 06/24/2022 19:29 PLASMA!! ALBUMIN 3.9 g/dL 3.5 - 5.2 06/24/2022 19:29 PLASMA!! CALCIUM 9.4 mg/dL 8.4 - 10.2 06/24/2022 19:29 PLASMA!! GLUCOSE 111 H mg/dL 74 - 100 07/19/2022 08:08 BLOOD !! WBC 13.17 H K/cmm 4.0 - 11.0 07/19/2022 08:08 BLOOD !! RBC 3.21 L M/cmm 4.6 - 6.2 07/19/2022 08:08 BLOOD !! HGB 10.9 L g/dL 13.5 - 17.9 07/19/2022 08:08 BLOOD !! HCT 33.9 L % 41 - 54 07/19/2022 08:08 BLOOD !! MCV 105.6 H fL 80 - 10 0 07/19/2022 08:08 BLOOD !! MCH 34.0 H pg 27 - 33 07/19/2022 08:08 BLOOD !! MCHC 32.2 g/dL 32.0 - 37.5 07/19/2022 08:08 BLOOD !! PLT comment K/cmm 07/19/2022 08:08 BLOOD !! MPV canc fL 07/19/2022 08:08 BLOOD !! RDW 12.1 % 11.5 - 14.5 07/19/2022 08:08 PLASMA CREAT EGFR(CKD-EP 49 L R ef: >=60 !! Indicates COMMENTS AVAILABLE...Refer to Inter im Lab Report. HCT: 35.9 (06/24/22) 33.9 (07/19/22) HGB: 12.0 (06/24/22) 10.9 (07/19/22) IPF: 4.4 (06/01/21) MCH: 35.7 (06/24/22) 34.0 (07/19/22) MCHC: 33.4 (06/24/22) 32.2 (07/19/22) MCV: 106.8 (06/24/22) 105.6 (07/19/22) MPV: 10.2 (09/28/21) 10.0 (01/11/22) PLT: comment (06/24/22) comment (07/19/22) RBC: 3.36 (06/24/22) 3.21 (07/19/22) RDW: 14.0 (06/24/22) 12.1 (07/19/22) WBC: 9.67 (06/24/22) 13.17 (07/19/22) TESTOSTERONE____ IMAGING: N/A Impression: ========= 1. Urinary Retention 2. Urinary Frequency 2. Cervical Spine Injury PLAN: 1. Urinary Retention: Acute. Secondary to spinal cord compression. Is on alpha blockers and tolerating them well. B/P is borderline low. Advised to contact PCP if he becomes li ght headed or dizzy as he remains on metoprolol for HTN. Advised to change posit ions slowly. UR shows adequate bladder emptying with a residual of 0 ccs. UA did show evidence of hem aturia but this was post catheter removal. Would recommend a repeat UA a month or so down the road. He has not had a PSA in a long while. Order placed for PSA to be complete with his lab work in November. Will notify of results. He will follow back with Urology PRN. 2. Urinary Frequency: Reviewed bladder irritants pamphlet and sent home with him. Bladder Emptied well. Prostate not signific antly enlarged. 3. Cervical Spine Injury: MRI of the cervical sp ine which showed compression of the cervical cord around C 4-5 and C5-6. he is in a C- collar presently. Is anticipating surgery after the first of the year. The pt. is in agreement with this plan. All ques tions were answered. > 30 minutes [id number] time was spent, >50% o f appointment time spent counseling and/or coordinating care. /mikal/ LAKESHA ARGUELLO [facility] REGISTERED NURSE Signed: 08/06/2022 11:59
--- OUTSIDE RECORDS SUMMARY | 2022-10-13 17:38 | XMS_ITS | Encounter Summary ---
:1950 Author Organization [facility] Address [address] [place] [address] Support Name Relationship Address Phone MADELIN MANTILLA Unavailable [address] [phone] [place] [address] MADELIN MANTILLA Unavailable [address] [phone] [place] [address] DHAVAL MANTILLA Unavailable [address] [place] [address] Insurance Providers: All historical and current Section [...] MEDICARE MEDICARE PART Jul 18, PART B [id number] 800 ANNALEE BUSTILLO (WNR) (M) B 2014A [phone] ,REGI MEDICARE MEDICARE PART Apr 17, PART A [id number] 800 ANNALEE BUSTILLO (WNR) (M) A 2012A [phone] ,REGI Selected Encounter This section includes the information on record at [place] for the Encounter. Date/Time Encounter Type Encounter Description Reason Provider Source Jul 25, 2022 12:30 Outpatient Encounter ADMIN CURT HERIANGELINA PM (MASNONCT) [...] The data comes from all [place] treatment [facility]. Appointment Date/Time Appointment Type Appointment Facili ty Name Aug 05, 2022 11:00 AM AMBULATORY - NONE [facility] Aug 06, 2022 10:00 AM AMBULATORY - SURGERY [facility] Sep 18, 2022 08:00 AM AMBULATORY - NONE [facility] Sep 18, 2022 09:15 AM AMBULATORY - NONE [facility] Sep 18, 2022 11:00 AM AMBULATORY - NONE [facility] Oct 21, 2022 01:00 PM AMBULATORY - NONE [facility] Oct 21, 2022 01:30 PM AMBULATORY - NONE [facility] Oct 21, 2022 02:30 PM AMBULATORY - NONE [facility] Oct 21, 2022 03:00 PM AMBULATORY - SURGERY [facility] Oct 21, 2022 03:30 PM AMBULATORY - NONE [facility] Nov 20, 2022 09:30 AM AMBULATORY - NONE [facility] Nov 20, 2022 10:30 AM AMBULATORY - MEDICINE [facility] Nov 20, 2022 11:00 AM AMBULATORY - MEDICINE [facility] Nov 20, 2022 11:30 AM AMBULATORY - MEDICINE [facility] Nov 20, 2022 12:00 PM AMBULATORY - NONE [facility] Jan 17, 2023 08:30 AM AMBULATORY - MEDICINE [facility] Jan 17, 2023 09:30 AM [facility] [...] The data comes from all [place] treatment [facility]. Test Date/Time Test Type Test Details Facility Name Jun 24, 2022 06:55 PM Laboratory - Chemistry EXTRA BLUE TUBE MIN [facility] Order PLASMA WC Jun 24, 2022 06:55 PM Laboratory - Chemistry EXTRA GOLD GEL TUBE [facility] Order SERUM WC Jun 24, 2022 06:55 PM Laboratory - Chemistry EXTRA PURPLE TUBE [facility] Order BLOOD WC Jun 24, 2022 06:55 PM Laboratory - Chemistry EXTRA MINT TUBE MIN [facility] Order PLASMA WC Lab Results: +/- 30 [...] Interpretation Reference Range Comment Jul 19, 2022 [facility] RHEUMATOLOGY CHEM PANEL Spec imen Type: PLASMA 08:08 AM No comment enter ed. Ordering Provid er: JENNA LUIS Report Released Date/Time: Jan 11, 2022 11:04 AM Reporting Lab: [facility] [id number] Performing Lab: [facility] [id number] CREATININE 1.5 H 0.7-1.2 ALKALINE PHOSPHATASE 72 40-150 ALT/SGPT 12 <55 AST/SGOT 11 <34 C-REACTIVE PROTEIN 5.28 H <5.00 CREAT EGFR(CKD-EPI) 49 L >60 Jul 19, 2022 [facility] RHEUMATOLOGY HEME PANEL Spec imen Type: BLOOD 08:08 AM No comment enter ed. Ordering Provid er: JENNA LUIS Report Released Date/Time: Jan 11, 2022 11:04 AM Reporting Lab[facility] [id number] Performing Lab: [facility] [id number] WBC 13.17 H 4.0-11.0 RBC 3.21 L [...] PM VA-TOBACCO FORMER USER MIN [facility] Tobacco Use History This section includes a history of the smoking, or tobacco- related health factors, that were collected on or before the date of the Encounter. The data comes from the [place] facility where the Encounter took place. Date/Time Smoking Status/Tobacco Use Comment [facility] it Mar 05, 2022 01:30 PM VA-TOBACCO QUIT 1 TO < 5 YRS [facility] Jun 01, 2021 02:00 PM [facility]ACCO [facility] Dec 31, 2019 10:54 AM VA-TOBACCO FORMER USER MIN [facility] Dec 31, 2019 10:54 AM [place]-TOBACCO QUIT < 1 YEAR [facility] March 23, 2019 09:53 AM VA-TOBACCO FORMER USER MIN [facility] March 23, 2019 09:53 AM VA-TOBACCO QUIT < 1 YEAR [facility] Jun 10, 2018 10:00 AM CURRENT TOBACCO USER MIN[place] [facility]LLIS [facility] May 10, 2018 07:27 PM [place] [facility] [facility] May 10, 2018 07:27 PM [place] [facility] Aug 29, 2017 09:55 AM FORMER TOBACCO USE <1Y MIN [facility] May 26, 2017 10:51 PM [facility] May 26, 2017 10:51 PM [place] [facility] May 03, 2017 09:34 PM [facility] May 03, 2017 09:34 PM INPT [place]ACCO US[place] [facility] Sep 18, 2016 01:36 PM FORMER TOBACCO USE <1Y MIN [facility] Aug 10, 2016 03:54 PM INPT TOBACCO USE - PT REFUSED [facility] Aug 01, 2016 06:48 PM [facility] Aug 01, 2016 06:48 PM INPT [place]ACCO US[place] [facility] Feb 08, 2015 09:57 AM [place]CO [facility] [facility] Nov 29, 2013 10:37 AM CURRENT TOBACCO USER [facility] Nov 26, 2013 11:09 AM PATIENT IS TOBACCO USER ANAID GARCIA [facility] Nov 27, 2012 12:12 PM CURRENT TOBACCO USER [facility] Dec 27, 2011 09:44 AM CURRENT TOBACCO USER [facility] Jan 22, 2011 02:38 PM CURRENT TOBACCO USER [facility] Mar 13, 2010 12:48 PM CURRENT TOBACCO USER [facility] Advance Directives: All historical and current [...] Feb 25, 2018 ADVANCE DIRECTIVE ANDREW,AURORA Arias [facility] Feb 24, 2018 ADVANCE DIRECTIVE DISCUSSION AURORA MORALES [facility] May 26, 2017 CLINICAL WARNING MAGO CONTRERAS [facility] May 03, 2017 CLINICAL WARNING SARIAH ENGLE [facility] Aug 10, 2016 CLINICAL WARNING ISABEL BARCENAS [facility] Aug 02, 2016 CLINICAL WARNING NORAHAURORA Carla [facility] Radiology Reports: +/- 30 days of [...] SPINE 4 OR 5 VIEWS: DARRYL WADDELL [facility] REGI MANTILLA [id number] -APR 28 [phone] 8 M Exm Date: JUL 25, 2022@09:21 Req Phys: KALI ELLINGTON Pat Loc: [facility] NEUROS URG STAFF CONSULT (R Img Loc: MAIN X-RAY Service: Unknown (Case [id number] COMPLETE) CERVICAL SPINE 4 OR 5 VIEWS (RAD Detailed) CPT:36146 Reason for Study: C5 fracture Clinical History: [...] listed below: User placing glenise rs pager: [phone] LAST CREATININE 1.3 H (06/24/22) Report Status: Verified Date Reported: JUL 25, 2022 Date Verified: JUL 25, 2022 Pe Teacher E-Sig:/ES/DARRYL WADDELL MD Report: EXAMINATION: CERVICAL SPINE [...] Primary Interpreting Staff: DARRYL WADDELL MD, RADIOLOGIST (Pe Teacher) /JRT
--- OUTSIDE RECORDS SUMMARY | 2022-10-13 17:38 | XMS_ITS | Encounter Summary ---
:1950 Author Organization [facility] Address [address] [place] [address] Support Name Relationship Address Phone MADELIN MANTILLA Unavailable [phone] [place] [address] MADELIN MANTILLA Unavailable [address] [phone] [place] [address] DHAVAL MANTILLA Unavailable [address] [place] [address] Insurance Providers: All historical and current Section [...] MEDICARE MEDICARE PART Jul 18, PART B [id number] 800 ANNALEE BUSTILLO (WNR) (M) B 2014A [phone] ,REGI MEDICARE MEDICARE PART Apr 17, PART A [id number] 800 ANNALEE BUSTILLO (WNR) (M) A 2012A [phone] ,REGI Selected Encounter This section includes the information on record at [place] for the Encounter. Date/Time Encounter Type Encounter Description Reason Provider Source Jul 25, 2022 09:00 Outpatient Encounter ADMIN CURT RICO AM (MASNONCT) [...] The data comes from all [place] treatment [facility]. Appointment Date/Time Appointment Type Appointment Facili ty Name Aug 05, 2022 11:00 AM AMBULATORY - NONE [facility] Aug 06, 2022 10:00 AM AMBULATORY - SURGERY [facility] S Sep 18, 2022 08:00 AM AMBULATORY - NONE [facility] Sep 18, 2022 09:15 AM AMBULATORY - NONE [facility] Sep 18, 2022 11:00 AM AMBULATORY - NONE [facility] Oct 21, 2022 01:00 PM AMBULATORY - NONE [facility] Oct 21, 2022 01:30 PM AMBULATORY - NONE [facility] Oct 21, 2022 02:30 PM AMBULATORY - NONE [facility] Oct 21, 2022 03:00 PM AMBULATORY - SURGERY [facility] S Oct 21, 2022 03:30 PM AMBULATORY - NONE [facility] Nov 20, 2022 09:30 AM AMBULATORY - NONE [facility] Nov 20, 2022 10:30 AM AMBULATORY - MEDICINE [facility] Nov 20, 2022 11:00 AM AMBULATORY - MEDICINE [facility] Nov 20, 2022 11:30 AM AMBULATORY - MEDICINE [facility] Nov 20, 2022 12:00 PM AMBULATORY - NONE [facility] Jan 17, 2023 08:30 AM AMBULATORY - MEDICINE [facility] Jan 17, 2023 09:30 AM AMBULATORY - MEDICINE [facility] Active, Pending, and Scheduled Orders This [...] The data comes from all [place] treatment [facility]. Test Date/Time Test Type Test Details Facility Name Jun 24, 2022 06:55 PM Laboratory - Chemistry EXTRA BLUE TUBE [facility] Order PLASMA WC Jun 24, 2022 06:55 PM Laboratory - Chemistry EXTRA GOLD GEL TUBE [facility] Order SERUM WC Jun 24, 2022 06:55 PM Laboratory - Chemistry EXTRA PURPLE TUBE [facility] Order BLOOD WC Jun 24, 2022 06:55 PM Laboratory - Chemistry EXTRA MINT TUBE [facility] Order PLASMA WC Lab Results: [...] Interpretation Reference Range Comment Jul 19, 2022 [facility] RHEUMATOLOGY CHEM PANEL Spec imen Type: PLASMA 08:08 AM No comment enter ed. Ordering Provid er: JENNA LUIS Report Released Date/Time: Jan 11, 2022 11:04 AM Reporting Lab: [facility] [id number] Performing Lab: [facility] [id number] CREATININE 1.5 H 0.7-1.2 ALKALINE PHOSPHATASE 72 40-150 ALT/SGPT 12 <55 AST/SGOT 11 <34 C-REACTIVE PROTEIN 5.28 H <5.00 CREAT EGFR(CKD-EPI) 49 L >60 Jul 19, 2022 [facility] RHEUMATOLOGY HEME PANEL Spec imen Type: BLOOD 08:08 AM No comment enter ed. Ordering Provid er: JENNA LUIS Report Released Date/Time: Jan 11, 2022 11:04 AM [facility] [id number] Performing Lab: [facility] [address] WBC 13.17 H 4.0-11.0 RBC 3.21 L [...] took place. Date/Time Smoking Status/Tobacco Use Comment [facility] it Mar 05, 2022 01:30 PM VA-TOBACCO QUIT 1 TO < 5 YRS [facility] Jun 01, 2021 02:00 PM VA-TOBACCO [facility] Dec 31, 2019 10:54 AM VA-TOBACCO FORMER USER [facility] Dec 31, 2019 10:54 AM [place]-TOBACCO QUIT < 1 YEAR [facility] March 23, 2019 09:53 AM VA-TOBACCO FORMER USER MIN [facility] March 23, 2019 09:53 AM VA-TOBACCO QUIT < 1 YEAR M [facility] Jun 10, 2018 10:00 AM CURRENT TOBACCO USER [place] [facility] May 10, 2018 07:27 PM INPT [place]BACCO COUNSELING [place] [facility] May 10, 2018 07:27 PM [place] [facility] Aug 29, 2017 09:55 AM FORMER TOBACCO USE <1Y [facility] May 26, 2017 10:51 PM [facility] [facility] [place] [facility] May 26, 2017 10:51 PM [place]PT [place] [facility] May 03, 2017 09:34 PM [facility] [place] [facility] May 03, 2017 09:34 PM INPT [place]ACCO US[place] [facility] Sep 18, 2016 01:36 PM FORMER TOBACCO USE <1Y [facility] Aug 10, 2016 03:54 PM INPT TOBACCO USE - PT REFUSED [facility] Aug 01, 2016 06:48 PM INPT [facility] [facility] [place] [facility] Aug 01, 2016 06:48 PM INPT [place]ACCO US[place] [facility] Feb 08, 2015 09:57 AM CURRENT TOBACCO USER [place] [facility] Nov 29, 2013 10:37 AM CURRENT TOBACCO USER [facility] Nov 26, 2013 11:09 AM PATIENT IS TOBACCO USER ANAID GARCIA [facility] Nov 27, 2012 12:12 PM CURRENT TOBACCO USER [facility] Dec 27, 2011 09:44 AM CURRENT TOBACCO USER [facility] Jan 22, 2011 02:38 PM CURRENT TOBACCO USER [facility] Mar 13, 2010 12:48 PM CURRENT TOBACCO USER [facility] Advance Directives: All historical and current Section Date Range: From patient's date of to the date document was created. This section includes ALL of a patient's completed or amended [place] Advance and Rescinded Directives. The entries below indicate that a directive exists for the patient, but an actual copy is not included with this document. The data comes from all [facility]. Date Advance Directives Provider Source Feb 25, 2018 ADVANCE DIRECTIVE ANDREW,AURORA Arias [facility] Feb 24, 2018 ADVANCE DIRECTIVE DISCUSSION AURORA MORALES [facility] May 26, 2017 CLINICAL WARNING MAGO CONTRERAS [facility] May 03, 2017 CLINICAL WARNING SARIAH ENGLE [facility] Aug 10, 2016 CLINICAL WARNING ISABEL BARCENAS [facility] Aug 02, 2016 CLINICAL WARNING NORAHAURORA Carla [facility] Radiology Reports: +/- 30 days [...] SPINE 4 OR 5 VIEWS: DARRYL WADDELL [facility] REGI MANTILLA [id number] -APR [id number] [phone] 8 M Exm Date: JUL 25, 2022@09:21 Req Phys: KALI ELLINGTON Pat Loc: [facility] NEUROS URG STAFF CONSULT (R Img Loc: MAIN X-RAY Service: Unknown (Case [id number] COMPLETE) CERVICAL SPINE 4 OR 5 VIEWS (RAD Detailed) CPT:47993 Reason for Study: C5 fracture Clinical History: [...] listed below: User placing glenise rs pager: [phone] LAST CREATININE 1.3 H (06/24/22) Report Status: Verified Date Reported: JUL 25, 2022 Date Verified: JUL 25, 2022 Craft Superintendent E-Sig:/ES/DARRYL WADDELL MD Report: EXAMINATION: CERVICAL SPINE [...] Primary Interpreting Staff: DARRYL WADDELL MD, RADIOLOGIST (Craft Superintendent) /JRT
--- OUTSIDE RECORDS SUMMARY | 2022-10-13 17:38 | XMS_ITS | Encounter Summary ---
:1950 Author Organization [facility] Address [address] [place] [address] Support Name Relationship Address Phone MADELIN MANTILLA Unavailable [phone] [place] [address] MADELIN MANTILLA Unavailable [address] [phone] [place] [address] DHAVAL MANTILLA Unavailable [address] [place] [address] Insurance Providers: All historical and current Section [...] MEDICARE MEDICARE PART Jul 18, PART B [id number] 800 ANNALEE BUSTILLO (WNR) (M) B 2014A [phone] ,REGI MEDICARE MEDICARE PART Apr 17, PART A [id number] 800 ANNALEE BUSTILLO (WNR) (M) A 2012A [phone] ,REGI Selected Encounter This section includes the information on record at [place] for the Encounter. Date/Time Encounter Type Encounter Description Reason Provider Source Aug 16, 2022 04:23 Outpatient Encounter PRIMARY CARE/MEDICINE PM [facility] Encounter [...] 21, 2022 03:00 PM AMBULATORY - SURGERY [facility] Oct 21, 2022 03:30 PM AMBULATORY - NONE [facility] Nov 20, 2022 09:30 AM AMBULATORY - NONE [facility] Nov 20, 2022 10:30 AM AMBULATORY - MEDICINE [facility] Nov 20, 2022 11:00 AM AMBULATORY - MEDICINE [facility] Nov 20, 2022 11:30 AM AMBULATORY - MEDICINE [facility] Nov 20, 2022 12:00 PM AMBULATORY - NONE [facility] Jan 17, 2023 08:30 AM AMBULATORY - MEDICINE [facility] Jan 17, 2023 09:30 AM AMBULATORY - MEDICINE [facility] Active, Pending, and Scheduled Orders This section includes a listing of several types of active, pending, and scheduled orders, including clinic medications orders, diagnostic test orders, procedure orders and consult orders; where the start date of the order is 45 days before the date of the Encounter or 45 days after the date of the Encounter. The data comes from all [facility]. 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 Ordering Provid er: JENNA LUIS Report Released Date/Time: Jan 11, 2022 11:04 AM Reporting Lab: [facility] [id number] Performing Lab: [facility] [address] WBC 13.17 H 4.0-11.0 RBC 3.21 L [...] 2022 01:30 PM VA-TOBACCO FOR[facility]ER [facility] Tobacco Use History This section includes [...] 2021 02:00 PM VA-TOBACCO [facility]ED [facility] Dec 31, 2019 10:54 AM VA-TOBACCO FORMER USER MIN [facility] Dec 31, 2019 10:54 AM VA-TOBACCO QUIT < 1 YEAR [place] [facility] March 23, 2019 09:53 AM VA-TOBACCO FORMER USER [facility] March 23, 2019 09:53 AM DE-TOBACCO QUIT < 1 YEAR M [facility] Jun 10, 2018 10:00 AM CURRENT TOBACCO USER [place] [facility] May 10, 2018 07:27 PM INPT [place] COUN[place]ING [place] [facility] May 10, 2018 07:27 PM INPT TOBACCO [place] [facility] Aug 29, 2017 09:55 AM FORMER TOBACCO USE <1Y [facility] May 26, 2017 10:51 PM INPT [place] COUNSELING [place] [facility] May 26, 2017 10:51 PM INPT TOBACCO US[place] [facility] May 03, 2017 09:34 PM INPT TOBACCO COUNSELING [place] [facility] May 03, 2017 09:34 PM INPT TOBACCO US[place] [facility] [facility] Sep 18, 2016 01:36 PM FORMER TOBACCO USE <1Y [facility] Aug 10, 2016 03:54 PM INPT TOBACCO USE - PT REFUSED [facility] Aug 01, 2016 06:48 PM INPT TOB[place]CO COUNSELING [place] [facility] Aug 01, 2016 06:48 PM INPT [place] [facility] Feb 08, 2015 09:57 AM CURRENT TOBACCO USER [place] [facility] Nov 29, 2013 10:37 AM CURRENT TOBACCO USER [place] [facility] Nov 26, 2013 11:09 AM PATIENT IS TOBACCO USER [place] [facility] Nov 27, 2012 12:12 PM CURRENT TOBACCO USER [place] [facility] Dec 27, 2011 09:44 AM CURRENT TOBACCO USER [place] [facility] Jan 22, 2011 02:38 PM [...] the Encounter. The data comes from all [facility] facilities. Date/Time Radiology Report Provider Source Jul 25, 2022 09:21 AM CERVICAL SPINE 4 OR 5 VIEWS: DARRYL WADDELL [facility] REGI MANTILLA KRISTOFER [id number] -APR [id number] [phone] 8 M Exm Date: JUL 25, 2022@09:21 Req Phys: KALI ELLINGTON Pat Loc: [facility] NEUROS URG STAFF CONSULT (R Img Loc: MAIN X-RAY Service: Unknown (Case [id number] COMPLETE) CERVICAL SPINE 4 OR 5 VIEWS (RAD Detailed) CPT:91586 Reason for Study: C5 fracture Clinical History: Can have completed on same day as neurosurg cli car appointment. [place] IS NOT under investigation for COVID-19 or is COVID-19 negative ETOH use s/p mechanical fall causing C5 pedical fracture, central cord syndrome Responsible provider name and phone number to notify for critical findings if other than u ser placing the order and pager listed below: User placing alok lindsay pager: [phone] LAST CREATININE 1.3 H (06/24/22) Report Status: Verified Date Reported: JUL 25, 2022 Date Verified: JUL 25, 2022 Timber Harvester Operator E-Sig:/ES/DARRYL WADDELL MD Report: EXAMINATION: CERVICAL SPINE [...] Primary Interpreting Staff: DARRYL WADDELL MD, RADIOLOGIST (Timber Harvester Operator) /JRT Encounter Notes: All associated encounter notes This section contains the clinical notes associated to the Encounter. Date/Time Encounter Note(s) Provider Source Aug 16, 2022 04:23 PM HOME HEALTH REFERRAL NOTE: ESSIE PANIAGUA MA LYNN [facility] LOCAL TITLE: [facility] CARE STANDARD TITLE: HOME HEALTH REFERRAL NOTE DATE OF NOTE: AUG 16, 2022@16:23 ENTRY DATE: AUG 16, 2022@16:23:35 AUTHOR: ESSIE PANIAGUA EXP COSIGNER: URGENCY: STATUS: COMPLETED HOME HEALTH CARE CERTIFICATION AND PLAN OF CARE SIGNED BY: Dr. LEON, FOR [facility] [id number] Certification period From: Jun To: Aug 17 /mikal/ ESSIE PANIAGUA ADVANCED LEAD COATER Signed: 08/16/2022 16:24
--- OUTSIDE RECORDS SUMMARY | 2022-10-13 17:39 | XMS_ITS | Encounter Summary ---
:1950 Author Organization [facility] Address [address] [place] [address] Support Name Relationship Address Phone MADELIN MANTILLA Unavailable [phone] [place] [address] MADELIN MANTILLA Unavailable [phone] [place] [address] DHAVAL MANTILLA Unavailable [address] [place] [address] Insurance Providers: All historical and current Section [...] MEDICARE MEDICARE PART Jul 18, PART B [id number] ANNALEE BRYANIENT (WNR) (M) B [id number] [phone] ,REGI MEDICARE MEDICARE PART Apr 17, PART A [id number] ANNALEE Cardenas ATIENT (WNR) (M) A [id number] ,REGI Selected Encounter This section includes the information on record at [place] for the Encounter. Date/Time Encounter Type Encounter Reason Provider Source Description Aug 23, 2022 05:24 Outpatient TELEPHONE TRIAGE BABITA SAUCEDA PM Encounter IHE Encounter Template Text not [...] 20 appointments. The data comes from all [facility]. Appointment Date/Time Appointment Type Appointment Facili ty Name Sep 18, 2022 08:00 AM AMBULATORY - NONE [facility] Sep 18, 2022 09:15 AM AMBULATORY - NONE [facility] Sep 18, 2022 11:00 AM AMBULATORY - NONE [facility] Oct 21, 2022 01:00 PM AMBULATORY - NONE [facility] Oct 21, 2022 01:30 PM AMBULATORY - NONE [facility] Oct 21, 2022 02:30 PM AMBULATORY - NONE [facility] Oct 21, 2022 03:00 PM AMBULATORY - SURGERY [facility] Oct 21, 2022 03:30 PM AMBULATORY - NONE [facility] Nov 20, 2022 09:30 AM AMBULATORY - NONE [facility] Nov 20, 2022 10:30 AM AMBULATORY - MEDICINE [facility] Nov 20, 2022 11:00 AM AMBULATORY - MEDICINE [facility] Nov 20, 2022 11:30 AM AMBULATORY - MEDICINE [facility] Nov 20, 2022 12:00 PM AMBULATORY - NONE [facility] Jan 17, 2023 08:30 AM AMBULATORY - MEDICINE [facility] Jan 17, 2023 09:30 AM AMBULATORY - MEDICINE [facility] Active, Pending, and Scheduled Orders This section includes a listing of several types of active, pending, and scheduled orders, including clinic medications orders, diagnostic test orders, procedure orders and consult orders; where the start date of the order is 45 days before the date of the Encounter or 45 days after the date of the Encounter. The data comes from all [facility]. Test Date/Time Test Type Test Details Facility Name Sep 23, 2022 12:00 AM Imaging - Nuclear DXA BONE DENSITY CAROLYN ELLIOTT [facility] Medicine Order Sep 30, 2022 12:54 PM Consult Order [facility] ZEINAB Merlos [facility] CARE-NEUROSURGERY Cons Manager Of [employer] Social History: Smoking Status (Most current) and [...] 1 TO < 5 YRS [facility] Tobacco Use History This section includes a history of the smoking, or tobacco- related health factors, that were collected on or before the date of the Encounter. The data comes from the [place] facility where the Encounter took place. Date/Time Smoking Status/Tobacco Use Comment Facil ity Mar 05, 2022 01:30 PM VA-TOBACCO QUIT 1 TO < 5 YRS [facility] Jun 01, 2021 02:00 PM [facility] Dec 31, 2019 10:54 AM VA-TOBACCO FORMER USER [facility] Dec 31, 2019 10:54 AM VA-TOBACCO QUIT < 1 YEAR [facility] March 23, 2019 09:53 AM VA-TOBACCO FORMER USER [facility] March 23, 2019 09:53 AM VA-TOBACCO QUIT < 1 YEAR [facility] Jun 10, 2018 10:00 AM CURRENT TOBACCO [facility] May 10, 2018 07:27 PM IN[place] [facility] May 10, 2018 07:27 PM INPT [facility]BACCO [facility] Aug 29, 2017 09:55 AM FORMER TOBACCO USE <1Y [facility] May 26, 2017 10:51 PM [facility] May 26, 2017 10:51 PM [place] [facility] May 03, 2017 09:34 PM [facility]AC[facility] May 03, 2017 09:34 PM [place] [facility] Sep 18, 2016 01:36 PM FORMER TOBACCO USE <1Y [facility] Aug 10, 2016 03:54 PM INPT TOBACCO USE - PT REFUSED [facility] Aug 01, 2016 06:48 PM [facility] Aug 01, 2016 06:48 PM INPT [place] [facility] Feb 08, 2015 09:57 AM CURRENT [place]BAC[place] USER [place] [facility] Nov 29, 2013 10:37 AM CURRENT [place]ACCO USER [place] [facility] Nov 26, 2013 11:09 AM PATIENT IS TOBACCO USER [place] [facility] Nov 27, 2012 12:12 PM CURRENT TOBACCO USER [facility] Dec 27, 2011 09:44 AM CURRENT [place]ACCO USER [place] [facility] Jan 22, 2011 02:38 PM CURRENT [place]BACCO USER [place] [facility] Mar 13, 2010 12:48 PM CURRENT TOBACCO USER [place] AD[facility] Advance Directives: All historical and [...] Feb 25, 2018 ADVANCE DIRECTIVE AURORA MORALES [facility] Feb 24, 2018 ADVANCE DIRECTIVE DISCUSSION AURORA MORALES [facility] May 26, 2017 CLINICAL WARNING DAVID CONTRERASDRNina Wood [facility] May 03, 2017 CLINICAL WARNING SRA KADIEYASSINE [facility] Aug 10, 2016 CLINICAL WARNING ISABEL BARCENAS [facility] Aug 02, 2016 CLINICAL WARNING AURORA ALMAZAN [facility] Radiology Reports: +/- 30 days of [...] data comes from all [place] treatment facilities. Date/Time Radiology Report Provider Source Sep 18, 2022 08:46 AM LDCT LUNG CANCER SCREENING: BAIRONDARRYL R [facility] REGI MANTILLA KRISTOFER [id number] -APR [id number] M Exm Date: SEP 18, 2022@08:46 Req Phys: MARYELLEN LEON Pat Loc: [facility] PACT IVORY 4 E (Req'g Loc) Img Loc: CT IMAGING Service: Unknown (Case [id number] COMPLETE) LDCT LUNG CANCER SCREENING (CT Detailed) CPT:09940 Reason for Study: see below Clinical History: [place] IS NOT under investigation for COVID-19 or is COVID-19 negative lung cancer screening Responsible provider name and phone number to notify for critical findings if other than user placing the order and pager listed below: User placing orders pager: [phone] LAST 3: Collection DT Specimen Test Name Result Units Ref Range 07/19/2022 08:08 PLASMA CREATIN INE 1.5 H mg/dL 0.7 - 1.2 06/24/2022 19:29 PLASMA!! CREATININE 1.3 H mg/dL 0.7 - 1.2 05/15/2022 10:57 PLASMA CREATININE 1.2 mg/dL 0.7 - 1.2 07/19/2022 08:08 PLASMA CREAT EGFR(CKD-EP 4 9 L Ref: >=60 06/24/2022 19:29 PLASMA!! CREAT EGFR( CKD-EP 58 L Ref: >=60 05/15/2022 10:57 PLASMA CREAT EGFR(CKD-EP 63 Ref: >=60 01/11/2022 09:15 PLASMA ESTIMATED GFR(eGF >60 Ref: >=60 09/28/2021 09:18 PLASMA ESTIMATED GFR(eGF >60 Ref: >=60 06/19/2021 07:58 PLASMA ESTIMATED GFR (eGF >60 Ref: >=60 !! Indicates COMMENTS AVAILABLE...Refer to Interim Lab Report. Allergies: LISINOPRIL (Jun 01, 2021) Report Status: Verified Date Reported: SEP 18, 2022 Date Verified: SEP 18, 2022 Entertainment Manager E-Sig:/ES/DARRYL WADDELL MD Report: NON-CONTRAST LOW-DOSE CHEST CT FOR LUNG CANCER SCREENING 09/18/2022 HISTORY: Lung cancer screening. COMPARISON: Chest CT 05/04/2017. CT soft tissue neck March 16, 2018. TECHNIQUE: Low-dose CT of the chest without con trast. Axial and coronal reconstructions were obtained and revie wed. DOSE: DLP: 45.93/CTDIvol Mean: 0.9/Effective Do se: 0.6 FINDINGS: Motion artifact in the lung bases limits evalua tion of the lung parenchyma in this area. Nodule: Average diameter: 5 mm Density: Solid nodule Location: Posterior right upper lobe, abuts the pleura. Image: series 3, image 48 Suspicious features: New from prior CT neck exa m 07/16/[address] chest 05/04/2017 Other characteristics: Bilateral calcified and noncalcified pleural plaques are present amanda cummings the possibility that this represents a pleural plaque rather th an a nodule Change in diameter: New from prior Lung RADS category: 3 Additional nodules: 5 mm pleural-based nodule i n the right upper lobe with possible early eccentric calcificatio n previously measured 3 mm on 07/16/2018 CT exam. A 2 mm bogdan d nodule in the right upper lobe on series 3 image 43 is unchan ged from 05/04/2017 Other lung findings: Pulmonary emphysema. Linea r secretions in the trachea. Narrowed transverse diameter of th e trachea which can be seen with COPD. Respiratory motion artif act at the lung bases. Air-filled cyst in the right lower lobe on series 3 image 204. Bandlike scarring in the posterior right u pper lobe on series 3 image 87, similar to prior. Bandlike a ferdinand of scarring or atelectasis in the anterior left upper lobe ran r the main fracture fissure. 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 Mediastinum: Nondiagnostic evaluation due to lo w-dose, noncontrast technique. Severe coronary arterial calcification with coronary arterial stents.. Thoracic aortic calcification. Cannot assess for vascular patency without IV c ontrast. No lymphadenopathy is identified. Suspected motion artifact adjacent to the right coronary artery, right atrium and right ventricle on series 4 image 335. Upper abdomen: Images of the upper abdomen are nondiagnostic on this unenhanced low dose examination. Vascular calcifications are present. 1.5 cm suspected left adrenal nodule, this is new from prior 05/04/2017, indeterminate. New and enlargi ng renal collecting system stones from prior including a 3.5 mm stone at superior pole right kidney on series 4 image 49 8 and a 3 mm stone in the left renal collecting system on series 4 image 516. Chronic left renal cortical defect on series 4 image 567, unchanged. Partially visualized suspected duode nal diverticulum containing gas on series 4 image 604. Vascular calcifications are present. Bones: Degenerative changes in the spine and sh oulders. Bilateral rib fracture deformities some of which are new from comparison exam 05/04/2017 including a left 7th rib fractur e on series 4 image 342 and left posterior 11th rib which keshawn ear subacute to chronic. Near-complete loss of L1 mid body vert ebral height with lucent fracture lines such as on series 5 image 87, 5 mm of retropulsion of the posterior vertebral body on the right (series 6 image 73). Bones appear osteoporotic. Atrophi c changes of the right shoulder musculature. Impression: 1. New and enlarging pleural-based nodules in t he right upper lobe from prior CT neck examination 07/16/2018 m easuring up to 5 mm, these may represent pulmonary nodules versu s pleural plaques given evidence of prior asbestos exposure with calcified and noncalcified pleural plaques bilaterally. Recom mend management as a Lung-Rads category 3 finding with low-dose ch est CT follow-up in 6 months. 2. Severe vertebral height loss at L1 with frag mentation and slight retropulsion, previously severe L1 compr ession fracture with vertebral body height loss was present on chest x-ray 07/28/2020 suggesting a chronic process. Subacut e to chronic appearing 7th and 11th rib fracture deformities . Bones appear osteoporotic. 3. New 1.5 cm left adrenal nodule from comparis on chest CT 05/04/2017, recommend further evaluation with CT adrenal mass protocol. 4. New and enlarging bilateral renal collecting system stones as described in the body of the report, no hydrone phrosis. Primary Interpreting Staff: DARRYL WADDELL MD, RADIOLOGIST (Entertainment Manager) /JRT Jul 25, 2022 09:21 AM CERVICAL SPINE 4 OR 5 VIEWS: DARRYL WADDELL [facility] REGI MANTILLA [id number] -APR [id number], [id number] 8 M Exm Date: JUL 25, 2022@09:21 Req Phys: KALI ELLINGTON Pat Loc: [facility]OS URG STAFF CONSULT (R Img Loc: MAIN X-RAY Service: Unknown (Case [id number] COMPLETE) CERVICAL SPINE 4 OR 5 VIEWS (RAD Detailed) CPT:76745 Reason for Study: C5 fracture Clinical History: [...] listed below: User placing orde rs pager: [phone] LAST CREATININE 1.3 H (06/24/22) Report Status: Verified Date Reported: JUL 25, 2022 Date Verified: JUL 25, 2022 Entertainment Manager E-Sig:/ES/DARRYL WADDELL MD Report: EXAMINATION: CERVICAL SPINE 4 OR 5 VIEWS, 022 9:21 AM COMPARISON: CT of the neck dated 07/16/2018. HISTORY: Reason for Study: C5 fracture Can have completed on same day as neurosurg cli car appointment. [place] IS NOT under investigation for COVID-19 or [...] Primary Interpreting Staff: DARRYL WADDELL MD, RADIOLOGIST (Entertainment Manager) /JRT Encounter Notes: All associated encounter notes This section contains the clinical notes associated to the Encounter. Date/Time Encounter Note(s) Provider Source Aug 23, 2022 05:24 PM RN PROGRESS NOTE: DESHAUN SAUCEDA [facility] LOCAL TITLE: CCC: CLINICAL TRIAGE STANDARD TITLE: RN PROGRESS NOTE DATE OF NOTE: AUG 23, 2022@17:24:36 ENTRY DATE: AUG 23, 2022@17:24:36 AUTHOR: DESHAUN SAUCEDA EXP COSIGNER: URGENCY: STATUS: COMPLETED CCC: CLINICAL TRIAGE Has ADDENDA Patient Demographics Patient Name: REGI MANTILLA Patient Primary Address: [address] [place] [address] W
[facility] [place] [address] Patient : 1950 SSN: [id number] Patient Age: 72 Caller/Recipient Relation to Patient: Home Healt h Call Back Number: [phone] Caller Name: He[facility] Emergency Contactx: MADELIN MANTILLA Triage Summary Nurse Summary: Call from Heidy nurse at [phone]. Is asking for VO to see vet next week. 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 /mikal/ HERI BRAUN DEPARTMENTAL SECRETARY NURSE Signed: 08/27/2022 08:22
--- OUTSIDE RECORDS SUMMARY | 2022-10-13 17:39 | XMS_ITS | Encounter Summary ---
:1950 Author Organization [facility] [address] Address [address] [place] [address] Support Name Relationship Address Phone MADELIN MANTILLA Unavailable [address] [phone] [place] [address] MADELIN MANTILLA Unavailable [address] [phone] [place] [address] DHAVAL MANTILLA Unavailable [address] [place] [address] Insurance Providers: All historical and current Section [...] MEDICARE MEDICARE PART Jul 18, PART B [id number] 800 ANNALEE BRYANIENT (WNR) (M) B 2014A [phone] ,REGI MEDICARE MEDICARE PART Apr 17, PART A [id number] 800 ANNALEE Cardenas ATIENT (WNR) (M) A 2012A [phone] ,REGI Selected Encounter This section includes the information on record at [place] for the Encounter. Date/Time Encounter Type Encounter Reason Provider Source Description Sep 18, 2022 IMMUNIZATION PRIMARY ICD-10-CM Z23 SEDRICK BOLIVAR 10:07 AM ADMIN CARE/MEDICINE Encounter for L immunization with Provider Comments: Encounter for Immunization IHE Encounter Template Text not used by [place] Assessments - Encounter Diagnoses This section includes the primary and secondary diagnoses documented for the Encounter. Date/Time Primary/Secondary Diagnosis Name Provider Source Diagnosis Sep 18, 2022 PRIMARY Encounter for SEDRICK BOLIVAR [facility] 10:10 AM immunization L HCS Plan of Treatment: Future Appointments (+ 6 months) and Future Tests (+/- 45 days) The Plan of Treatment section includes future care activities for the patient from all [place] [facility] This section includes future appointments and future orders which are active, pending orscheduled.Future Appointments This section includes appointments that were scheduled to occur 6 months from the date of the Encounter, up to a maximum of 20 appointments. The data comes from all [place] treatment [facility]. Appointment Date/Time Appointment Type Appointment Facili ty Name Oct 21, 2022 01:00 PM AMBULATORY - NONE [facility] Oct 21, 2022 01:30 PM AMBULATORY - NONE [facility] Oct 21, 2022 02:30 PM AMBULATORY - NONE [facility] Oct 21, 2022 03:00 PM AMBULATORY - SURGERY [facility] Oct 21, 2022 03:30 PM AMBULATORY - NONE [facility] Nov 20, 2022 09:30 AM AMBULATORY - NONE [facility] Nov 20, 2022 10:30 AM AMBULATORY - MEDICINE [facility] Nov 20, 2022 11:00 AM AMBULATORY - MEDICINE [facility] Nov 20, 2022 11:30 AM AMBULATORY - MEDICINE [facility] Nov 20, 2022 12:00 PM AMBULATORY - NONE [facility] Jan 17, 2023 08:30 AM AMBULATORY - MEDICINE [facility] Jan 17, 2023 09:30 AM AMBULATORY - MEDICINE [facility] Active, Pending, and Scheduled Orders [...] The data comes from all [place] treatment [facility]. Test Date/Time Test Type Test Details Facility Name Sep 23, 2022 12:00 AM Imaging - Nuclear DXA BONE DENSITY [facility] LEXI [facility] Medicine Order Sep 30, 2022 12:54 PM Consult Order COMMUNITY ADAL Chelita [facility] CARE-NEUROSURGERY Cons Reclaimer's Choice Oct 17, 2022 12:00 AM Laboratory - Chemistry RHEUMATOLOGY CHEM P [facility] Order PLASMA SP ONCE Oct 17, 2022 12:00 AM Laboratory - Chemistry RHEUMATOLOGY HEME P [facility] Order BLOOD SP ONCE Oct 21, 2022 01:00 PM Imaging - CT Scan CT ADRENAL MASS [facility] Order PROTOCOL (P) Immunizations: All administered on the encounter date This section contains immunizations associated to the Encounter. Immunization Series Date Issued Reaction Comments INFLUENZA VACCINE, QUADRIVALENT, ADJUVANTED Sep 18 Social History: Smoking Status (Most current) and [...] 2022 01:30 PM VA-TOBACCO FORMER USER [facility] Tobacco Use History This section includes a history of the smoking, or tobacco- related health factors, that were collected on or before the date of the Encounter. The data comes from the [place] facility where the Encounter took place. Date/Time Smoking Status/Tobacco Use Comment [facility] it Mar 05, 2022 01:30 PM VA-TOBACCO QUIT 1 TO < 5 YRS [facility] Jun 01, 2021 02:00 PM VA-TOBACCO NEVER USED [facility] Dec 31, 2019 10:54 AM VA-TOBACCO FORMER USER [facility] Dec 31, 2019 10:54 AM [place]-TOBACCO QUIT < 1 YEAR M [facility] March 23, 2019 09:53 AM VA-TOBACCO FORMER USER [facility] March 23, 2019 09:53 AM [place]-TO[place]ACCO QUIT < 1 YEAR M [facility] Jun 10, 2018 10:00 AM CURRENT TOBACCO USER [place] KRISTELLIS [facility] May 10, 2018 07:27 PM INPT [place]BACCO COUNSELING [place] [facility] May 10, 2018 07:27 PM [place] [facility] Aug 29, 2017 09:55 AM FORMER TOBACCO USE <1Y [facility] May 26, 2017 10:51 PM [facility] [place] [facility] May 26, 2017 10:51 PM [place] [facility] May 03, 2017 09:34 PM [facility] [facility] [facility] May 03, 2017 09:34 PM [place] [facility] Sep 18, 2016 01:36 PM FORMER TOBACCO USE <1Y [facility] Aug 10, 2016 03:54 PM INPT TOBACCO USE - PT REFUSED [facility] Aug 01, 2016 06:48 PM [place] [facility] Aug 01, 2016 06:48 PM INPT TOBACCO USER GONZALES LORENZ [facility] Feb 08, 2015 09:57 AM CURRENT TOBACCO USER LAWSON ADAME [facility] Nov 29, 2013 10:37 AM CURRENT TOBACCO USER LAWSON ADAME [facility] Nov 26, 2013 11:09 AM PATIENT IS TOBACCO USER ANAID GARCIA [facility] Nov 27, 2012 12:12 PM CURRENT TOBACCO USER LAWSON HUMPHRIESChelita [facility] Dec 27, 2011 09:44 AM CURRENT TOBACCO USER LAWSON HUMPHRIESChelita [facility] Jan 22, 2011 02:38 PM CURRENT TOBACCO USER [facility] Mar 13, 2010 12:48 PM [...] comes from all [facility]. Date Advance Directives Provider Source Feb 25, 2018 ADVANCE DIRECTIVE ANDREW,AURORA Arias [facility] Feb 24, 2018 ADVANCE DIRECTIVE DISCUSSION AURORA MORALES [facility] May 26, 2017 CLINICAL WARNING MAGO CONTRERAS [facility] May 03, 2017 CLINICAL WARNING SARIAH ENGLE [facility] Aug 10, 2016 CLINICAL WARNING ISABEL BARCENAS [facility] Aug 02, 2016 CLINICAL WARNING JHON ALMAZANIE Carla [facility] Radiology Reports: +/- 30 days of the [...] 2022 08:46 AM LDCT LUNG CANCER SCREENING: DARRYL WADDELL [facility] REGI MANTILLA KRISTOFER [id number] -APR 28, [phone] 8 M Exm Date: SEP 18, 2022@08:46 Req Phys: MARYELLEN LEON Pat Loc: [facility] PACT IVMARILUZ 4 E (Req'g Loc) [facility] IMAGING Service: Unknown (Case [id number] COMPLETE) LDCT LUNG CANCER SCREENING (CT Detailed) CPT:27242 Reason for Study: see below Clinical History: [place] IS NOT under investigation for COVID-19 or is COVID-19 negative lung cancer screening Responsible provider name and phone number to notify for critical findings if other than user placing the order and pager listed below: User placing orders pager: [phone] LAST 3: Collection DT Specimen Test Name [...] 18, 2022 Date Verified: SEP 18, 2022 Implementation Manager E-Sig:/ES/DARRYL WADDELL MD Report: NON-CONTRAST LOW-DOSE [...] calcified and noncalcified pleural plaques are present rahannahin g the possibility that this represents a pleural plaque rather th an a nodule Change in diameter: New from prior Lung RADS category: 3 Additional nodules: 5 mm pleural-based nodule i n the right upper lobe with possible early eccentric calcificatio n previously measured 3 mm on 07/16/2018 CT exam. A 2 mm bodgan d nodule in the right upper lobe [...] Primary Interpreting Staff: DARRYL WADDELL MD, RADIOLOGIST (Implementation Manager) /JRT Encounter Notes: All associated encounter notes This section contains the clinical notes associated to the Encounter. Date/Time Encounter Note(s) Provider Source Sep 18, 2022 10:07 AM IMMUNIZATION NOTE: SEDRICK BOLIVAR [facility] LOCAL TITLE: INFLUENZA VACCINATION STANDARD TITLE: IMMUNIZATION NOTE DATE OF NOTE: SEP 18, 2022@10:07 ENTRY DATE: SEP 18, 2022@10:07:13 AUTHOR: SEDRICK BOLIVAR EXP COSIGNER: URGENCY: STATUS: COMPLETED The patient was given the influenza VIS which li sts the benefits and side effects of the vaccine and which reviews the ris ks of not receiving the flu vaccine. The VIS was reviewed with the patient a nd they were given an opportunity to ask questions. The patient was pr ovided education on how to decrease the risk of influen za infection including social distancing and use of good hand hygiene. The patient denied any prior severe reaction to the flu vaccine or its components. The patient gave verb al consent to receive the vaccine. The seasonal influenza vaccine VIS given to the patient: VIS version date Jun. The patient received seasonal influenza vaccine today - Influenza, Quadrivalent, Adjuvanted (Fluad) 0.5 ml IM toda y in Left Deltoid. Pear Picker: COINPLUS Lot # and Expiration Date: Lot: [id number]; Exp: Administered by protocol/policy /es/ SEDRICK BOLIVAR RN REGISTERED NURSE Signed: 09/18/2022 10:10
--- OUTSIDE RECORDS SUMMARY | 2022-10-13 17:39 | XMS_ITS | Encounter Summary ---
:1950 Author Organization [facility] Address [address] [place] [address] Support Name Relationship Address Phone MADELIN MANTILLA Unavailable [address] [phone] [place] [address] MADELIN MANTILLA Unavailable [address] [phone] [place] [address] DHAVAL MANTILLA Unavailable [address] [place] [address] Insurance Providers: All historical and current Section [...] MEDICARE MEDICARE PART Jul 18, PART B [id number] 800 ANNALEE BUSTILLO (WNR) (M) B 2014A [phone] ,REGI MEDICARE MEDICARE PART Apr 17, PART A [id number] 800 ANNALEE BUSTILLO (WNR) (M) A 2012A [phone] ,REGI Selected Encounter This section includes the information on record at [place] for the Encounter. Date/Time Encounter Type Encounter Reason Provider Source Description Sep 19, 2022 07:08 Outpatient ADMIN PAT ACTIVTIES LEON, ET H AM Encounter (MASNONCT) IHE Encounter Template Text not used by [place] Plan of Treatment: Future Appointments (+ 6 [...] The data comes from all [place] treatment [facility]. Appointment Date/Time Appointment Type Appointment Facili ty Name Oct 21, 2022 01:00 PM AMBULATORY - NONE [facility] Oct 21, 2022 01:30 PM AMBULATORY - NONE [facility] Oct 21, 2022 02:30 PM AMBULATORY - NONE [facility] Oct 21, 2022 03:00 PM AMBULATORY - SURGERY [facility] Oct 21, 2022 03:30 PM AMBULATORY - NONE [facility] Nov 20, 2022 09:30 AM AMBULATORY - NONE [facility] Nov 20, 2022 10:30 AM AMBULATORY - MEDICINE [facility] Nov 20, 2022 11:00 AM AMBULATORY - MEDICINE [facility] Nov 20, 2022 11:30 AM AMBULATORY - MEDICINE [facility] Nov 20, 2022 12:00 PM AMBULATORY - NONE [facility] Jan 17, 2023 08:30 AM AMBULATORY - MEDICINE [facility] Jan 17, 2023 09:30 AM AMBULATORY - MEDICINE [facility] Active, Pending, and Scheduled [...] the Encounter. The data comes from all [facility]. Test Date/Time Test Type Test Details Facility Name Sep 23, 2022 12:00 AM Imaging - Nuclear [facility] Medicine Order Sep 30, 2022 12:54 PM Consult Order COMMUNITY ZEINAB Merlos [facility] CARE-NEUROSURGERY Cons Electric Sign Wirer's Choice Oct 17, 2022 12:00 AM Laboratory - Chemistry RHEUMATOLOGY CHEM P [facility] Order PLASMA SP ONCE Oct 17, 2022 12:00 AM Laboratory - Chemistry RHEUMATOLOGY HEME P [facility] Order BLOOD SP ONCE Oct 21, 2022 01:00 PM Imaging - CT Scan CT ADRENAL MASS [facility] LOR[facility] Order PROTOCOL (P) Social History: Smoking Status (Most current) and [...] 2022 01:30 PM VA-TOBACCO FORMER USER [facility] Tobacco Use History This section includes a history of the smoking, or tobacco- related health factors, that were collected on or before the date of the Encounter. The data comes from the [facility] where the Encounter took place. Date/Time Smoking Status/Tobacco Use Comment Facil it Mar 05, 2022 01:30 PM VA-TOBACCO QUIT 1 TO < [address] [facility] Jun 01, 2021 02:00 PM [facility] Dec 31, 2019 10:54 AM VA-TOBACCO FORMER USER [facility] Dec 31, 2019 10:54 AM VA-TOBACCO QUIT < 1 YEAR [facility] March 23, 2019 09:53 AM VA-TOBACCO FORMER USER [facility] March 23, 2019 09:53 AM VA-TOBACCO QUIT < 1 [facility]AR [facility] Jun 10, 2018 10:00 AM CURRENT TOBACCO USER [place] [facility] May 10, 2018 07:27 PM INPT [place] [facility] May 10, 2018 07:27 PM [place] [facility] Aug 29, 2017 09:55 AM FORMER TOBACCO USE <1Y [facility] May 26, 2017 10:51 PM [facility] May 26, 2017 10:51 PM [place] [facility] May 03, 2017 09:34 PM INPT TOBACCO COUNSELING [place] [facility] May 03, 2017 09:34 PM [place] [facility] Sep 18, 2016 01:36 PM FORMER TOBACCO USE <1Y [facility] Aug 10, 2016 03:54 PM INPT TOBACCO USE - PT REFUSED [facility] Aug 01, 2016 06:48 PM INPT TOBACCO COUNSELING [place] [facility] Aug 01, 2016 06:48 PM [place]PT [place]ACCO [place] [facility] Feb 08, 2015 09:57 AM CURRENT TOBACCO USER [place] [facility] Nov 29, 2013 10:37 AM CURRENT TOBACCO USER [place] [facility] Nov 26, 2013 11:09 AM PATIENT IS TOBACCO USER [place] [facility] Nov 27, 2012 12:12 PM CURRENT TOBACCO USER [place] [facility] Dec 27, 2011 09:44 AM CURRENT TOBACCO USER [facility] Jan 22, 2011 02:38 PM CURRENT TOBACCO USER [facility] Mar 13, 2010 12:48 PM [address] TOBACCO USER [facility] Advance Directives: All historical and current Section Date Range: From patient's date of to the date document was created. This section includes ALL of a patient's completed or amended [place] Advance and Rescinded Directives. The entries below indicate that a directive exists for the patient, but an actual copy is not included with this document. The data comes from all [facility]. Date Advance Directives Provider Source [...] CLINICAL WARNING AURORA ALMAZAN [facility] Radiology Reports: +/- 30 days of [...] the Encounter. The data comes from all [facility] facilities. Date/Time Radiology Report Provider Source Sep 18, 2022 08:46 AM LDCT LUNG CANCER SCREENING: DARRYL WADDELL [facility] REGI MANTILLA KRISTOFER [id number] -APR [id number] 8 M Exm Date: SEP 18, 2022@08:46 Req Phys: MARYELLEN ELON Loc: [facility] PACT IVORY 4 E (Req'g Loc) Img Loc: CT IMAGING Service: Unknown (Case [id number] COMPLETE) LDCT LUNG CANCER SCREENING (CT Detailed) CPT:12284 Reason for Study: see below Clinical History: [place] IS NOT under investigation for COVID-19 or is COVID-19 negative lung cancer screening Responsible provider name and phone number to notify for critical findings if other than user placing the order and pager listed below: User placing orders pager: [phone] LAST 3: Collection DT Specimen Test Name [...] 18, 2022 Date Verified: SEP 18, 2022 Boiler Operator Helper E-Sig:/ES/DARRYL WADDELL MD Report: NON-CONTRAST LOW-DOSE CHEST [...] calcified and noncalcified pleural plaques are present raisin g the possibility that this represents a [...] Primary Interpreting Staff: DARRYL WADDELL MD, RADIOLOGIST (Boiler Operator Helper) /JRT Encounter Notes: All associated encounter notes This section contains the clinical notes associated to the Encounter. Date/Time Encounter Note(s) Provider Source Sep 19, 2022 07:17 AM LETTERS: DOROTHY RHODES [facility] LOCAL TITLE: FOLLOW UP RESULTS LETTER STANDARD TITLE: LETTERS DATE OF NOTE: SEP 19, 2022@07:17 ENTRY DATE: SEP 19, 2022@07:17:11 AUTHOR: DOROTHY RHODES EXP COSIGNER: URGENCY: STATUS: COMPLETED [facility] [address] [place] [address] Sep REGI BARROWLYN [address] [facility] [id number] Dear : Your recent chest imaging on Sep showed: one or more small lung nodules (sometimes sergio led spots). Lung nodules are usually caused by scar tissue, a healed inf ection that never made you sick, or some irritant found in the air we abel the. In general, most nodules ARE NOT early lung cancer. The best way to make sure this is not something of greater concern, such as a small, early cancer, is to keep an eye on your nodule with chest CT scans to make sure it's not growing. To make sure that your nodule(s) is not growing , we will continue to follow the nodule(s) with repeat CT scans until it has been stable for one to three years. *THIS IS IMPORTANT: Your next scan is due in 2022. You will be called to schedule the appointment. Your scan contained additional findings NOT rel ated to lung nodules. Please discuss with your PCP, who has been notified of these results. Your primary care provider can be reached by calling [phone] or [phone]. More detailed handout about small lung nodules will be mailed to you soon. If you are scheduled for a scan in the future an d you have symptoms of a chest cold at that time, please call number on appointment letter to reschedule for four weeks after symptoms impr ove. If you have any further questions or problems, rachel mckay contact Lung Cancer Screening staff at [phone]. MUNIR MUNOZ, RN PULMONARY/LCS [facility] Sep 19, 2022 07:09 AM PULMONARY NOTE: [facility]ES [facility] LOCAL TITLE: PULMONARY LUNG CANCER SCREENING STANDARD TITLE: PULMONARY NOTE DATE OF NOTE: SEP 19, 2022@07:09 ENTRY DATE: SEP 19, 2022@07:09:17 AUTHOR: DOROTHY RHODES EXP COSIGNER: URGENCY: STATUS: COMPLETED PULMONARY LUNG CANCER SCREENING Has ADDENDA INITIAL LUNG NODULE documentation. Date of initial image with a lung nodule: Date: September 18, 2022 LDCT Results Highest risk nodule description: Size in mm: 5mm The following incidental findings were noted: Other abdominal abnormalities: Specify: Adrenal mass/cyst New 1.5 cm left adrenal nodule from comparison c hest CT 05/04/2017, recommend further evaluation with CT adrenal mass protocol . I am notifying the Primary Care Provider for in formation, and for follow-up of incidental findings, if indicated. Plan: Interval until next LDCT scan is due: 6 months Patient Notification of results: Results letter sent to patient. Destiny: Please mail nodule leaflet. Thank you. /mikal/ MUNIR MUNOZ, RN PULMONARY/LCS [facility] Signed: 09/19/2022 07:15 Receipt Acknowledged By: * AWAITING SIGNATURE * DESTINY QURESHI 09/19/2022 ADDENDUM STATUS: COMPLETED CT image related to nodule tracking or lung canc er screening was done on Sep One or more lung nodules were noted on the repo rt. The patient will be enrolled in lung nodule tracking unless the [facility] provider replies with an alert to us stating that the pa tient should not be tracked. Patient has been informed about findings relate d to lung nodules/lung cancer screening and/or pulmo nary lymphadenopathy. PCP ALERT Pulmonary is notifying you as Primary Care Prov ider (PCP) of incidental findings unrelated to lung nodules o r lung cancer screening. Per agreement with General Internal Medicine, PCP is responsible for following up incidental find ings as needed. Incidental findings include (but not limited to ); inflammatory/infectious LUNG conditions, pleura l effusions, aneurysms, and other non-pulmonary findings. Patient has NOT been informed of the findings t hat are unrelated to the lung nodules or lung cancer sc reening. We defer to the PCP to inform the patient as in dicated. ALERT TO PCP REGARDING INCIDENTAL FINDINGS #3 Impression: 1. New and enlarging pleural-based nodules [...] body of the report, no hydrone phrosis. /es/ MUNIR MUNOZ, RN PULMONARY/LCS [facility] Signed: 09/19/2022 07:16 Receipt Acknowledged By: * AWAITING SIGNATURE * MARYELLEN LEON
--- OUTSIDE RECORDS SUMMARY | 2022-10-13 17:40 | XMS_ITS | Encounter Summary ---
:1950 Author Organization [facility] Address [address] [place] [address] Support Name Relationship Address Phone MADELIN MANTILLA Unavailable [phone] [place] [address] MADELIN MANTILLA Unavailable [address] [phone] [place] [address] DHAVAL MANTILLA Unavailable [address] [place] [address] Insurance Providers: All historical and current Section [...] MEDICARE MEDICARE PART Jul 18, PART B [id number] 800 ANNALEE BRYANIENT (WNR) (M) B 2014A [phone] ,REGI MEDICARE MEDICARE PART Apr 17, PART A [id number] 800 ANNALEE Cardenas ATIENT (WNR) (M) A 2012A [phone] ,[place] Selected Encounter This section includes the information on record at [place] for the Encounter. Date/Time Encounter Type Encounter Reason Provider Source Description Sep 20, 2022 Outpatient TELEPHONE PRIMARY ICD-10-CM MARYELLEN LEON 05:08 PM Encounter CARE M80.08XS Age-rel osteopor w current path fracture, verteb, sequela with Provider Comments: Age-related osteoporosis with current pathological fracture, vertebra(e), sequela IHE Encounter Template Text not used by [place] Assessments - Encounter Diagnoses This section includes the primary and secondary diagnoses documented for the Encounter. 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 Appointment Date/Time Appointment Type Appointment Facili ty Name Oct 21, 2022 01:00 PM AMBULATORY - NONE [facility] Oct 21, 2022 01:30 PM AMBULATORY - NONE [facility] Oct 21, 2022 02:30 PM AMBULATORY - NONE [facility] Oct 21, 2022 03:00 PM AMBULATORY - SURGERY [facility] Oct 21, 2022 03:30 PM AMBULATORY - NONE [facility] Nov 20, 2022 09:30 AM AMBULATORY - NONE [facility] Nov 20, 2022 10:30 AM AMBULATORY - MEDICINE [facility] Nov 20, 2022 11:00 AM AMBULATORY - MEDICINE [facility] Nov 20, 2022 11:30 AM AMBULATORY - MEDICINE [facility] Nov 20, 2022 12:00 PM AMBULATORY - NONE [facility] Jan 17, 2023 08:30 AM AMBULATORY - MEDICINE [facility] Jan 17, 2023 09:30 AM [facility] [...] The data comes from all [place] treatment [facility]. Test Date/Time Test Type Test Details Facility Name Sep 23, 2022 12:00 AM Imaging - Nuclear DXA BONE DENSITY CAROLYN ELLIOTT [facility] Medicine Order Sep 30, 2022 12:54 PM Consult Order COMMUNITY ZEINAB Merlos [facility] CARE-NEUROSURGERY Cons Process Server's Choice Oct 17, 2022 12:00 AM Laboratory - Chemistry RHEUMATOLOGY CHEM P RITU [facility] Order PLASMA SP ONCE Oct 17, 2022 12:00 AM Laboratory - Chemistry RHEUMATOLOGY HEME P R[facility]U [facility] Order BLOOD SP ONCE Oct 21, 2022 01:00 PM Imaging - CT Scan CT [facility]RENAL [facility] Order PROTOCOL (P) Social History: Smoking Status [...] 2021 02:00 PM [facility] Dec 31, 2019 10:54 AM VA-TOBACCO FORMER USER [place] [facility] Dec 31, 2019 10:54 AM [place]-TOBACCO QUIT < 1 YEAR M [facility] March 23, 2019 09:53 AM VA-TOBACCO FORMER USER [place] [facility] March 23, 2019 09:53 AM VA-TOBACCO QUIT < 1 YEAR M [facility] Jun 10, 2018 10:00 AM CURRENT TOBACCO USER [place] KRISTELLIS [facility] May 10, 2018 07:27 PM INPT TOBACCO COUNSELING [place] [facility] May 10, 2018 07:27 PM INPT TOBACCO US[place] [facility] Aug 29, 2017 09:55 AM [...] TOBACCO USER [place] [facility] Sep 18, 2016 01:36 PM FORMER TOBACCO USE <1Y [place] [facility] Aug 10, 2016 03:54 PM INPT TOBACCO USE - PT REFUSED [facility] Aug 01, 2016 06:48 PM INPT [facility]ACCO [facility]SEL[facility] Aug 01, 2016 06:48 PM INPT TOBACCO USER GONZALES LORENZ [facility] Feb 08, 2015 09:57 AM CURRENT [facility]ACCO [facility] Nov 29, 2013 10:37 AM CURRENT TOBACCO USER LAWSON HUMPHRIESChelita [facility] Nov 26, 2013 11:09 AM PATIENT IS TOBACCO USER ANAID GARCIA [facility] Nov 27, 2012 12:12 PM CURRENT TOBACCO USER [facility] HU[facility]HRIESChelita [facility] Dec 27, 2011 09:44 AM CURRENT TOBACCO USER LAWSON ADAME [facility] Jan 22, 2011 02:38 PM [facility]AC[facility] Mar 13, 2010 12:48 PM CURRENT TOBACCO USER [facility] Advance Directives: All historical and current [...] CLINICAL WARNING AURORA ALMAZAN [facility] Radiology Reports: +/- 30 days of [...] AM LDCT LUNG CANCER SCREENING: DARRYL WADDELL [facility] REGI MANTILLA [id number] -APR 28, 194 8 M Exm Date: SEP 18, 2022@08:46 Req Phys: MARYELLEN LEON Pat Loc: [facility] PACT IVORY 4 E (Req'g Loc) [facility] Loc: CT IMAGING Service: Unknown (Case [id number] COMPLETE) LDCT LUNG CANCER SCREENING (CT Detailed) CPT:43087 Reason for Study: see below Clinical History: [place] IS NOT under investigation for COVID-19 or is COVID-19 negative lung cancer screening Responsible provider name and phone number to notify for critical findings if other than user placing the order and pager listed below: User placing orders pager: [phone] LAST 3: Collection DT Specimen Test Name [...] 18, 2022 Date Verified: SEP 18, 2022 Steel Plate Printer E-Sig:/ES/DARRYL WADDELL MD Report: NON-CONTRAST LOW-DOSE CHEST [...] Primary Interpreting Staff: DARRYL WADDELL MD, RADIOLOGIST (Steel Plate Printer) /JRT Encounter Notes: All associated encounter notes This section contains the clinical notes associated to the Encounter. Date/Time Encounter Note(s) Provider Source Sep 20, 2022 05:08 PM [facility] TITLE: MEDICINE CLINIC PROVIDER TELEPHONE NOTE STANDARD TITLE: PACT NOTE DATE OF NOTE: SEP 20, 2022@17:08 ENTRY DATE: SEP 20, 2022@17:08:45 AUTHOR: MARYELLEN LEON EXP COSIGNER: URGENCY: STATUS: COMPLETED History: called to f/u CT Chest for non pulm findings Objective: doing stable discussed non pulm findings below: Report: NON-CONTRAST LOW-DOSE CHEST CT FOR LUNG CANCER SCREENING 09/18/2022 HISTORY: Lung cancer screening. COMPARISON: Chest CT 05/04/2017. CT soft tissue neck March 16, 2018. FINDINGS: Impression: 1. New and enlarging pleural-based nodules [...] ch est CT follow-up in 6 months. ==> will be followed by pulm clinic 2. Severe vertebral height loss at L1 with frag mentation and slight retropulsion, previously severe L1 compr ession fracture with vertebral body height loss was present on chest x-ray 07/28/2020 suggesting a chronic process. Subacut e to chronic appearing 7th and 11th rib fracture deformities . Bones appear osteoporotic. ==> discussed, will get DEXA scan 3. New 1.5 cm left adrenal nodule from comparis on chest CT 05/04/2017, recommend further evaluation with CT adrenal mass protocol. ==> will get CT adrenal mass 4. New and enlarging bilateral renal collecting system stones as described in the body of the report, no hydrone phrosis. => will be followed in future CT, asymptomatic Assessment/Plan: 1. Osteoporotic bone appearance on CT: Bone dens ity scan 2. Adrenal nodule: will get CT adrenal protocal Education/Counseling: Time spent union organizer: 5-10 minutes /mikal/ MARYELLEN LEON MD Staff Physician Signed: 09/21/2022 10:17
--- OUTSIDE RECORDS SUMMARY | 2022-10-13 17:40 | XMS_ITS | Encounter Summary ---
:1950 Author Organization [facility] Address [address] [place] [address] Support Name Relationship Address Phone MADELIN MANTILLA Unavailable [address] [phone] [place] [address] MADELIN MANTILLA Unavailable [address] [phone] [place] [address] DHAVAL MANTILLA Unavailable [address] [place] [address] Insurance Providers: All historical and current Section [...] MEDICARE MEDICARE PART Jul 18, PART B [id number] 800 ANNALEE BUSTILLO (WNR) (M) B 2014A [phone] ,REGI MEDICARE MEDICARE PART Apr 17, PART A [id number] 800 ANNALEE BRYANIENT (WNR) (M) A 2012A [phone] ,[place] Selected Encounter This section includes the information on record at [place] for the Encounter. Date/Time Encounter Type Encounter Description Reason Provider Source Sep 18, 2022 12:00 Outpatient Encounter EVENT (HISTORICAL) [...] 21, 2022 01:00 PM AMBULATORY - NONE [facility] Oct 21, 2022 01:30 PM AMBULATORY - NONE [facility] Oct 21, 2022 02:30 PM AMBULATORY - NONE [facility] Oct 21, 2022 03:00 PM AMBULATORY - SURGERY [facility] Oct 21, 2022 03:30 PM AMBULATORY - NONE [facility] Nov 20, 2022 09:30 AM AMBULATORY - NONE [facility] Nov 20, 2022 10:30 AM AMBULATORY - MEDICINE [facility] Nov 20, 2022 11:00 AM AMBULATORY - MEDICINE [facility] Nov 20, 2022 11:30 AM AMBULATORY - MEDICINE [facility] Nov 20, 2022 12:00 PM AMBULATORY - NONE [facility] Jan 17, 2023 08:30 AM AMBULATORY - MEDICINE [facility] Jan 17, 2023 09:30 AM AMBULATORY - MEDICINE [facility] Active, Pending, and Scheduled Orders [...] AM Imaging - Nuclear DXA B[facility] DENSITY [facility] Medicine Order Sep 30, 2022 12:54 PM Consult Order COMMUNITY ZEINAB Merlos [facility] CARE-NEUROSURGERY Cons [place] Department Worker's Choice Oct 17, 2022 12:00 AM Laboratory - Chemistry RHEUMATOLOGY CHEM P [facility] Order PLASMA SP ONCE Oct 17, 2022 12:00 AM Laboratory - Chemistry RHEUMATOLOGY HEME P [facility] Order BLOOD SP ONCE Oct 21, 2022 01:00 PM Imaging - CT Scan CT ADRENAL MASS [facility]OR[facility] Order PROTOCOL (P) Social History: Smoking Status [...] VA-TOBACCO QUIT 1 TO < 5 YRS [facility] Jun 01, 2021 02:00 PM [facility] Dec 31, 2019 10:54 AM VA-TOBACCO FORMER USER [place] [facility] Dec 31, 2019 10:54 AM VA-TOBACCO QUIT < 1 YEAR [facility] March 23, 2019 09:53 AM VA-TOBACCO FORMER USER [facility] March 23, 2019 09:53 AM VA-TOBACCO QUIT < 1 YEAR [facility] Jun 10, 2018 10:00 AM CURRENT [facility]ACCO [facility] May 10, 2018 07:27 PM INPT TOBACCO COUNSELING [place] [facility] May 10, 2018 07:27 PM INPT [place]ACCO [place] [facility] Aug 29, 2017 09:55 AM FORMER TOBACCO USE <1Y [facility] May 26, 2017 10:51 PM INPT TOBACCO COUNSELING [place] [facility] May 26, 2017 10:51 PM INPT TOBACCO US[place] [facility] May 03, 2017 09:34 PM INPT TOBACCO COUNSELING [place] [facility] May 03, 2017 09:34 PM INPT TOBACCO USER [facility] Sep 18, 2016 01:36 PM FORMER TOBACCO USE <1Y [facility] Aug 10, 2016 03:54 PM INPT TOBACCO USE - PT REFUSED [facility] Aug 01, 2016 06:48 PM INPT TOBACCO COUNSELING [place] [facility] Aug 01, 2016 06:48 PM INPT TOBACCO US[place] [facility] Feb 08, 2015 09:57 AM CURRENT [facility]ACCO [facility] Nov 29, 2013 10:37 AM CURRENT TOBACCO USER LAWSON HUMPHRIESLIS [facility] Nov 26, 2013 11:09 AM PATIENT IS TOBACCO USER [place] [facility] Nov 27, 2012 12:12 PM CURRENT TOBACCO USER [facility] HUMPHRIESS [facility] Dec 27, 2011 09:44 AM CURRENT TOBACCO US[place] [facility] Jan 22, 2011 [...] Feb 25, 2018 ADVANCE DIRECTIVE AURORA MORALES [facility] Feb 24, 2018 ADVANCE DIRECTIVE DISCUSSION [facility] MORALES [facility] May 26, 2017 CLINICAL WARNING MAGO CONTRERAS [facility] May 03, 2017 CLINICAL WARNING KADIESARIAH [facility] Aug 10, 2016 CLINICAL WARNING BARCENASISABEL Brianda [facility] Aug 02, 2016 CLINICAL WARNING A[facility] ALMAZAN Carla [facility] Radiology Reports: +/- [...] the Encounter. The data comes from all [facility] facilities. Date/Time Radiology Report Provider Source Sep 18, 2022 08:46 AM LDCT LUNG CANCER SCREENING: DARRYL WADDELL [facility] ANNALEEREGI [id number] -APR 28, 194 8 M Exm Date: SEP 18, 2022@08:46 Req Phys: MARYELLEN LEON Pat Loc: [facility] PACT IVORY 4 E (Req'g Loc) Img Loc: CT IMAGING Service: Unknown (Case [id number] COMPLETE) LDCT LUNG CANCER SCREENING (CT Detailed) CPT:51610 Reason for Study: see below Clinical History: [place] IS NOT under investigation for COVID-19 or is COVID-19 negative lung cancer screening Responsible provider name and phone number to notify for critical findings if other than user placing the order and pager listed below: User placing orders pager: [phone] LAST 3: Collection DT Specimen Test Name [...] 18, 2022 Date Verified: SEP 18, 2022 Concrete Building Assembler E-Sig:/ES/DARRYL AWDDELL MD Report: NON-CONTRAST LOW-DOSE CHEST CT FOR [...] Primary Interpreting Staff: DARRYL WADDELL MD, RADIOLOGIST (Concrete Building Assembler) /JRT
--- OUTSIDE RECORDS SUMMARY | 2022-10-13 17:40 | XMS_ITS | Encounter Summary ---
:1950 Author Organization [facility] Address [address] [place] [address] Support Name Relationship Address Phone MADELIN MANTILLA Unavailable [phone] [place] [address] MADELIN MANTILLA Unavailable [address] [phone] [place] [address] DHAVAL MANTILLA Unavailable [address] [place] [address] Insurance Providers: All historical and current Section [...] MEDICARE MEDICARE PART Jul 18, PART B [id number] 800 ANNALEE BRYANIENT (WNR) (M) B 2014A [phone] ,REGI MEDICARE MEDICARE PART Apr 17, PART A [id number] 800 ANNALEE Cardenas ATIENT (WNR) (M) A [phone] ,REGI Selected Encounter This section includes the information on record at [place] for the Encounter. Date/Time Encounter Type Encounter Reason Provider Source Description Sep 30, 2022 09:26 Outpatient TELEPHONE TRIAGE MEHDI REEVES NDA A AM Encounter IHE Encounter Template Text not [...] 01:30 PM AMBULATORY - NONE [facility] Oct 21, 2022 02:30 PM AMBULATORY - NONE [facility] Oct 21, 2022 03:00 PM AMBULATORY - SURGERY [facility] Oct 21, 2022 03:30 PM AMBULATORY - NONE [facility] Nov 20, 2022 09:30 AM AMBULATORY - NONE [facility] Nov 20, 2022 10:30 AM AMBULATORY - MEDICINE [facility] Nov 20, 2022 11:00 AM AMBULATORY - MEDICINE [facility] Nov 20, 2022 11:30 AM AMBULATORY - MEDICINE [facility] Nov 20, 2022 12:00 PM AMBULATORY - NONE [facility] Jan 17, 2023 08:30 AM AMBULATORY - MEDICINE [facility] Jan 17, 2023 09:30 AM AMBULATORY - MEDICINE [facility] Active, Pending, and Scheduled Orders This section includes a listing of several types of active, pending, and scheduled orders, including clinic medications orders, diagnostic test orders, procedure orders and consult orders; where the start date of the order is 45 days before the date of the Encounter or 45 days after the date of the Encounter. The data comes from all [facility]. Test Date/Time Test Type Test Details Facility Name Sep 23, 2022 12:00 AM Imaging - Nuclear DXA BONE D[facility]ITY [facility] Medicine Order Sep 30, 2022 12:54 PM Consult Order [facility] ZEINAB Merlos [facility] CARE-NEUROSURGERY Cons Mobile Unit Assistant's Choice Oct 17, 2022 12:00 AM Laboratory - Chemistry [facility] Order PLASMA SP ONCE Oct 17, 2022 12:00 AM Laboratory - Chemistry RHEUMATOLOGY HEME P [facility] Order BLOOD SP ONCE Oct 21, 2022 01:00 PM Imaging - CT Scan CT ADRENAL MASS [facility] LORENZ [facility] Order PROTOCOL (P) Social History: Smoking [...] 2022 01:30 PM VA-TOBACCO FORMER USER [facility] Tobacco Use History This section [...] 2021 02:00 PM [facility] Dec 31, 2019 10:54 AM VA-TOBACCO FORMER USER [facility] Dec 31, 2019 10:54 AM VA-TOBACCO QUIT < 1 YEAR M [facility] March 23, 2019 09:53 AM VA-TOBACCO FORMER USER [facility] March 23, 2019 09:53 AM VA-TOBACCO QUIT < 1 YEAR M [facility] Jun 10, 2018 10:00 AM CURRENT TOBACCO USER [facility] May 10, 2018 07:27 PM [facility] [place] [facility] May 10, 2018 07:27 PM INPT TOBACCO USER [facility] Aug 29, 2017 09:55 AM FORMER TOBACCO USE <1Y [facility] May 26, 2017 10:51 PM [facility]PT [facility] May 26, 2017 10:51 PM INPT TOBACCO US[place] [facility] May 03, 2017 09:34 PM [facility] May 03, 2017 09:34 PM INPT TOBACCO USER [facility] Sep 18, 2016 01:36 PM FORMER TOBACCO USE <1Y MIN [facility] Aug 10, 2016 03:54 PM INPT TOBACCO USE - PT REFUSED [facility] Aug 01, 2016 06:48 PM [facility] Aug 01, 2016 06:48 PM INPT TOBACCO US[place] [facility] Feb 08, 2015 09:57 AM CURRENT TOBACCO USER [facility] Nov 29, 2013 10:37 AM CURRENT TOBACCO USER [facility] Nov 26, 2013 11:09 AM PATIENT IS TOBACCO USER [place] [facility] Nov 27, 2012 12:12 PM CURRENT TOBACCO USER [facility] Dec 27, 2011 09:44 AM CURRENT TOBACCO USER [facility] Jan 22, 2011 02:38 PM CURRENT TOBACCO USER [facility] Mar 13, 2010 12:48 PM CURRENT TOBACCO USER [facility] Advance Directives: All historical and current [...] [facility] Feb 24, 2018 ADVANCE DIRECTIVE DISCUSSION [facility] M[facility]AL[facility] May 26, 2017 CLINICAL WARNING MAGO CONTRERAS [facility] May 03, 2017 CLINICAL WARNING [...] the Encounter. The data comes from all [place] treatment facilities. Date/Time Radiology Report Provider Source Sep 18, 2022 08:46 AM LDCT LUNG CANCER SCREENING: DARRYL WADDELL [facility] REGI MANTILLA [id number] -APR 28 194 8 M Exm Date: SEP 18, 2022@08:46 Req Phys: MARYELLEN LEON Pat Loc: [facility] PACT IVORY 4 E (Req'g Loc) Img Loc: CT IMAGING Service: Unknown (Case [id number] COMPLETE) LDCT LUNG CANCER SCREENING (CT Detailed) CPT:69047 Reason for Study: see below Clinical History: [place] IS NOT under investigation for COVID-19 or is COVID-19 negative lung cancer screening Responsible provider name and phone number to notify for critical findings if other than user placing the order and pager listed below: User placing orders pager: [phone] LAST 3: Collection DT Specimen Test Name [...] 18, 2022 Date Verified: SEP 18, 2022 Screening Tech E-Sig:/ES/DARRYL WADDELL MD Report: NON-CONTRAST LOW-DOSE CHEST [...] Primary Interpreting Staff: DARRYL WADDELL MD, RADIOLOGIST (Screening Tech) /JRT Encounter Notes: All associated encounter notes This section contains the clinical notes associated to the Encounter. Date/Time Encounter Note(s) Provider Source Sep 30, 2022 09:26 AM RN PROGRESS NOTE: MERLE REEVES [facility] TITLE: CCC: CLINICAL TRIAGE STANDARD TITLE: RN PROGRESS NOTE DATE OF NOTE: SEP 30, 2022@09:26:23 ENTRY DATE: SEP 30, 2022@09:26:23 AUTHOR: MERLE REEVES EXP COSIGNER: URGENCY: STATUS: COMPLETED CCC: CLINICAL TRIAGE Has ADDENDA Patient Demographics Patient Name: REGI MANTILLA Patient Primary Address[address] [address] [place], [place] [address] [place] [address] Patient : 1950 SSN: [id number] Patient Age: 72 Caller/Recipient Relation to Patient: Self Emergency Contactx: MADELIN MANTILLA Triage Summary Nurse Summary: NURSES NOTES PATIENT CONCERN/DURATION/ONSET: Pt has been wear ing a neck brace for 3 months and asking when he can have brace removed. Pt is supposed to have surgery in November at [facility] but hasn't been seen s lefty June. Pt is tired of wearing the brace and looking for advice. 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 Advised patient to call back immediately/seek em ergency care if any of the signs or symptoms noted above worsen. Best contact for pt is (verified). (Caller could accurately sum marize the agreed upon plan of care as discussed in the education log portion of this note.) Per policy, automated recommendations for an ?ap pointment? indicates an interaction (virtual or in-person) with the care team. Summary of Actions Other course(s) of action Generated msg to PACT/Provider Provided guidance for worsening symptoms: *Ramos r/Patient* advised to call facilities [place] Clinical Contact Center or seek [facility] medical attention for new or worsening symptoms Clinical Contact Center Codes Clinic/Location: V23 [facility] PHONE CCC RN /mikal/ MERLE REEVES, MS, RN, CNL VISN 23 DAYTIME SPORTS INSTRUCTOR Signed: 09/30/2022 09:26 Receipt Acknowledged By: 09/30/2022 09:42 /mikal/ MUNIR RING, TECHNICAL RECRUITER NURSE 09/30/2022 ADDENDUM STATUS: COMPLETED Please re-place community care consult if approp riate. /MUNIR Jackson, TECHNICAL RECRUITER NURSE Signed: 09/30/2022 09:52 Receipt Acknowledged By: * AWAITING SIGNATURE * DAVE BARBER * AWAITING SIGNATURE * KALI ELLINGTON
--- OUTSIDE RECORDS SUMMARY | 2022-10-13 17:40 | XMS_ITS | Continuity of Care Document ---
:1950 Author Organization [facility] Address [address] [address] [place] [address] Phone Care Team Providers Name Role Phone Paul Astorga MD Unavailable Unavailable Procedures Procedure Date Ugi Endo; W/bx 1/mx Init Hosp-da E&m Mod Severity Advance Directives Directive Yes / No Effective Date File Name No Information Encounters Encounter Practice Location Reason(s) Diagnoses Date Provider Provide rs Description For Visit Copied on Encounter ANA M Aguirre [facility]GI No Apr-0 [facility] Information - MD [place], [address] [id number], [place], [place], [place], [place] [address], [facility], [place] tel: , [phone], [id number] , [place]. tel: [phone] [place] Gu[place] No Apr-0 Astorga Referring [facility] Information Provi maria: [facility], [address] [place] [address] [place] [id number] MD, [address] [place] [address], [place], [facility], [id number], [address], [place] [facility], [place], [place]: [place], [phone] tel: , [place]. [id number] tel: [phone] Init Hosp-da [facility] Guan No Apr-0 [facility] Referring E&m Mod [facility] Information - MD Bansal. Pro vider: [facility] [place], [facility] [address] [place] [address] [facility] [id number] MD, [address], [address] [place] [address], [id number], [place], [place], [place], [place], tel:[phone]. [phone] , [place]. tel: tel: [phone] Family History Family Member Type Diagnosis Age At Onset No Information Payers Payer name Insurance type Covered constitution party ID Authorization(s ) No Information Social [...]
--- OUTSIDE RECORDS SUMMARY | 2022-10-13 17:41 | XMS_ITS | Encounter Summary ---
:1950 Author Organization [facility] Address [address] [place] [id number] Care Team Providers Name Role Phone [facility] Unavailable [phone] Md Craig Primary Care Provider Unavailable Reason for Referral (Routine) - Open Specialty Diagnoses / Procedures Referred By Contact Refer red To Contact Melo Foley PA-C [facility] - [address] [place] [address] [phone] [facility] [address] Brianda Burns [phone] Phone: Fax: Referral ID Status Reason Start Date Expiration Date Visits Requ ested Visits Authorized [id number] Open 06/24/2022 1 1 Question Answer Specify time frame for follow up? 1 Week Instructions to follow-up provider acute urinary reten tion Comments You are advised to follow up with: Uroannel gandhi to follow up on acute urinary retention due to neck injury. If you have any ques tions or concerns, feel free to contact our Trauma Surgery [facility] at [phone] to reach us or make an appointment. (Routine) - Pending Review Specialty Diagnoses / Procedures Referred By Contact Refer red To Contact Procedures Melo Foley PA-C [facility] [address] [place] [address] Marcelle Aggarwal [place] [address] Referral ID Status Reason Start Date Expiration Date Visits V isits Requested Authorized [id number] Pending 06/20/2022 1 1 Review (Routine) - Open Specialty Diagnoses / Procedures Referred By Contact Jaime bills To Contact Procedures Melo Foley PA-C Discharge Instructions [address] [address] Referral ID Status Reason Start Date Expiration Date Visits Requ ested Visits Authorized [id number] Open 06/24/2022 1 1 (Routine) - Open Specialty Diagnoses / Procedures Referred By Chetan bills To Contact Melo Foley PA-C None, Md [address] [place] [address] Referral ID Status Reason Start Date Expiration Date Visits Requ ested Visits Authorized [id number] Open 06/21/2022 1 1 Question Answer Specify time frame for follow up? 2 Weeks Instructions to follow-up provider post hospitalizatio n follow up Comments Please follow up with your primary care physician regarding your recent hospitalization and ongoing medical kwesi gement. (Routine) - Open Specialty Diagnoses / Procedures Referred By Contact Jaime bills To Contact Diagnoses Other closed displaced fracture of fifth cervical vertebra, initial encounter (HCC) Fall from bed, initial encounter Kaela Bhatti APRN, Procedures Discharge Supplies SWEET PICKLED FRUIT MAKER [address] [address] Referral ID Status Reason Start Date Expiration Date Visits Requ ested Visits Authorized [id number] Open 06/20/2022 1 1 (Routine) - Open Specialty Diagnoses / Procedures Referred By Contact Refer red To Contact Diagnoses Other closed displaced fracture of fifth cervical vertebra, initial encounter (HCC) Fall from bed, initial encounter Kaela Bhatti APRN, Procedures Discharge Equipment: Walker [employer]WE[employer]UIT MAK[employer] [address] [place], [place] [address] Referral ID Status Reason Start Date Expiration Date Visits Requ ested Visits Authorized [id number] Open 06/20/2022 1 1 (Routine) - Open Specialty Diagnoses / Procedures Referred By Contact Refer red To Contact Edna Barragan PA-C [place], [place] [address] [place], [place] [address] [address] [place] [address] Phone: Fax: Referral ID Status Reason Start Date Expiration Date Visits Requ ested Visits Authorized [id number] Open 06/20/2022 1 1 Question Answer Specify time frame for follow up? 4 Weeks Instructions to follow-up provider follow up central c ord syndrome and C5 fx Comments Call [phone] to schedule follow up appointment with [facility] in 4 weeks and arrange to [...] Expiration Date Visits Requ ested Visits Authorized [id number] 1 1 Encounter Details Date Type Department Care Team Description 06/18/2022 - Hospital 6 Brenda Fair MD [address] [facility] [address] [place] [address] Accidental fall 06/24/2022 Encounter 3300 Brenda Reddy MD [address] [address] from [facility] [address] [id number] Social History Tobacco Use Types Packs/Day Years [...] CDT HOSPITAL DISCHARGE SUMMARY Patient Name: Sara Barillsa Date of : 1950 Attending Provider: Eugene Tucker MD Admission Date: 06/18/2022 Discharge Date: 06/24/2022 He will be discharged to home with family support. 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 No lifting over 10 pounds. No driving. No bending/twisting or overhead lifting. Continue to wear your neck brace (snug) at alltimes. Please change pads/liners daily. None Specify time frame for follow up?: 2 [...] elective basis, he will be in an [place] for 3 months at least, his uprights [...] once fully healed from C5 fx) - [place] X ??3 months -??Uprights completed, cleared to mobilize - Therapies? ETOH abuse Patient endorses daily drinking, 1-3 beers, 2 shots of whiskey. He declines [facility] consult. - CIWA d/do - Vitamins.? Acute Pain due to Trauma Multimodal pain regimen: Acetaminophen, Robaxin, Lidoderm patches, Oxycodone - Gabapentin at 300 mg TID last increased 06/20. ?? AUR - Urban placed 06/19, removed 06/21 and failed voiding trial. - urban replaced 06/22, will leave in for 1 week and have direct support professional home health remove if at home - follow up [...] Result LABS: Recent Labs 06/23/22 0537 06/24/22 07 HEMOGLOBIN 11.0* 11.6* Recent Labs 06/24/22 07 CREATININE 1.18* ESTGFRMDRD >60.00 Time: over 30 [...] 0.25-14-74.9 % Apply 1 57 g 0 06/24/20 22 Rectal Oint Application to skin four [...] 06/24/2022 4:45 PM CDT Sara Barillas 1950 [id number] P: Discharge A: Discharged via wheelchair to [...] unable to assist. SW spoke to [employer] (Ryan [phone]) who stated that they do service the [place] area but do not have anyone working today that could go to patient's house. EDISON called [employer] (ph. [phone]) and spoke directly with patient's nurse Lalo who explained that she had spoke with the patient and clarified to him that they cannot provide daily services tochange the padding on the collar, but he is set to have an appointment with [facility] Sunday 07/01. EDISON spoke to patient (ph [phone]) and confirmed that there is an appointment arranged for tomorrow, and that his support people of children and neighbors are out of town for the weekend. Patient expressed frustration with the situation and discomfort with the fit of the aspen collar. Patient expressed understanding that the home care will be there tomorrow or he is able to contact the [place] police non-emergency line to request a project management professor visit or even calling 911 for immediate assistance if the collar becomes unmanageable. ANN Barrera, PHOTO OFFSET PRINTER Float SW, covering weekend 6NW Pager: [phone] 06/30/2022 11:52 AM Missael Lorenzana - 06/24/2022 [...] interval history. 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 Initially seen at [place] where imaging revealed a C5 lamina fx. [...] once fully healed from C5 fx) - [place] X ??3 months -??Uprights completed, cleared to mobilize - Therapies? ETOH abuse Patient endorses daily drinking, 1-3 beers, 2 shots of whiskey. He declines [facility] consult. - CIWA d/do - Vitamins.? Acute Pain due to Trauma Multimodal pain regimen: Acetaminophen, Robaxin, Lidoderm patches, Oxycodone - Gabapentin at 300 mg TID last increased 06/20. ?? AUR - Urban placed 06/19, removed 06/21 and failed voiding trial. 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 He does not require 24/7 home cares, he is up ambulating independently [...] turns self. - Abrasion to forehead: Crusted, STEAM CONDITIONER FILLING. - Prolapse/large hemorrhoid to anus: Moderate bleeding -providers aware. - ASPEN /, mepilex. Pads changed this shift.?? T- Telemetry: [...] urban. D- Discharge: Family prefers TCU in [place]. Family is waiting on TCU answers before [...] Invasive Devices: Family hoping for TCU in [place]. D- Discharge: Family prefers TCU in [place]. Family waiting on TCU answers before making [...] H/o: EtOH, A fib, CKD, HTN, GERD, ND, RA, CAD Interval events: 06/23/22: Constipated; hemorrhoid bleed Discussed continuing to aim for higher fiber foods, adequate hydration, and activity. Patient Medical History: No past medical history on file. 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 Good appetite. 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 Clinically significant for malnutrition: No Weight Readings: [...] than 75% at TID meals Estimated Needs: 4192-0139 kcal/day (25-30 kcal/kg IBW) 65-80 grams protein/day [...] mg oral Twice Daily Kaela Bhatti APRN, CNP 5 mg at 06/23/22 0830 ??? aspirin enteric coated tablet 81 mg 81 mg oral DAILY Kaela Bhatti APRN [employer] 81 mg at 06/23/22 0830 ??? atorvastatin (LIPITOR) tablet 80 mg 80 mg oral DAILY Judith Guerrero PA-C 80 mg at 06/23/22 0830 ??? bisacodyl (DULCOLAX) suppository 1 suppository 1 suppository Rectal DAILY PRN Kaela Bhatti APRN, S[employer] P[employer]UIT MAKER 1 suppository at 06/20/22 1432 ??? cephalexin [...] mg 300 mg oral TID Kaela Woidylla, ROOM SERVICE FOOD SERVER, SWEET P[employer]LED FRUIT MAKER 300 mg at 06/23/22 0830 ??? isosorbide mononitrate (IMDUR) extended release tablet 24 HR 30 mg 30 mg oral DAILY Kaela Woidylla, ROOM SERVICE FOOD SERVER, SWEET P[employer]LED FRUIT MAKER 30 mg at 06/23/22 0831 ??? lidocaine [...] mg 1,000 mg oral Twice Daily Kaela Davy ROOM SERVICE FOOD SERVER, SWEET P[employer]LED FRUIT MAKER 1,000 mg at 06/23/22 0830 ??? [START ON 06/24/2022] tamsulosin (FLOMAX) capsule 0.4 mg 0.4 mg oral DAILY Melo Foley PA-C Nutrition Diagnosis No nutrition diagnosis at this time Sabi Burdick RD LD Pager #: [phone] Melo Foley PA-C - 06/23/2022 8:22 AM [...] interval history. 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 Initially seen at [place] where imaging revealed a C5 lamina fx. [...] once fully healed from C5 fx) - [place] X ??3 months -??Uprights completed, cleared to [...] of whiskey. He declines [facility] consult. - CIWA d/do - Vitamins.? Acute Pain due to Trauma Multimodal pain regimen: Acetaminophen, Robaxin, Lidoderm patches, Oxycodone - Gabapentin at 300 mg TID last increased 06/20. ?? AUR - Urban placed 06/19, removed 06/21 and failed voiding trial. - urban replaced 06/22, will leave in for 1 week and have direct support professional home health remove if at home - follow up [...] mom Past Medical History: GERD - continue CERTIFIED EMERGENCY VEHICLE TECHNICIAN??PPI Osteoporosis - continue CERTIFIED EMERGENCY VEHICLE TECHNICIAN??Vitamins Afib - restart CERTIFIED EMERGENCY VEHICLE TECHNICIAN eliquis STEMI with CABG x2 - denies chest pain, continue BB, Statin, Amiodarone, Eliquis, aspirin Acute Pain Management: APAP, Muscle Relaxant, Lidoderm Patch, Gabapentin, PO Narcotic Lines: PIV Fluids/Electrolytes/Nutrition: reg diet Ulcer Prophylaxis: None indicated Bowel Medications: Senna-S, Miralax twice daily and Dulcolax Suppository. LBM Size: Small (06/20/2022 11:59 PM) Urban: for AUR DVT Prophylaxis: Mechanical, Mobilize, eliquis Restraints: Not indicated Wounds/Skin Care/Skidmore/Sutures: OOB and mobilize. Frequent turning and reposition [...] Progression Note Type: Shift to shift summary [id number] Length of stay: 5 days Code Status: [...] turns self. - Abrasion to forehead: Crusted, STEAM CONDITIONER FILLING. - Prolapse/large hemorrhoid to anus: Moderate bleeding, providers aware. - ASPEN 09/06, mepilex. Pads changed this shift. T- Telemetry: [...] or 0): 1 Ambulating SBA w/walker. ASPEN 09/06 x 3mo. U- Urologic/bowel: Size: Small (06/20/2022 [...] aware, not intervention at this time. - [place] 09/06, mepilex. Likes rag under his chin [...] call family members multiple times (son Jefry [phone], Lila, and ) without answers. He needs [...] interval history. 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 Initially seen at [place] where imaging revealed a C5 lamina fx. [...] once fully healed from C5 fx) - [place] X ??3 months -??Uprights completed, cleared to [...] beers, 2 shots of whiskey. [facility] declines [facility]. - CIWA. - Vitamins.? Acute Pain due to Trauma Multimodal pain regimen: Acetaminophen, Robaxin, Lidoderm patches, Oxycodone - Gabapentin at 300 mg TID last increased 06/20. ?? AUR - Urban placed 06/19, removed 06/21 and failed voiding trial. - urban replaced 06/22, will leave in for 1 week and have direct support professional home health remove if at home - follow up with Urology as needed. Cervical neck fractures likely contributing to AUR - reports of hematuria likely due to internal hemorrhoids Internal Hemorrhoids - bleeding with BMs - recheck HGB in am, otherwise stable - good bowel regimen with miralax, senna, mom Past Medical History: GERD - continue CERTIFIED EMERGENCY VEHICLE TECHNICIAN??PPI Osteoporosis - continue CERTIFIED EMERGENCY VEHICLE TECHNICIAN??Vitamins Afib - restart CERTIFIED EMERGENCY VEHICLE TECHNICIAN eliquis STEMI with CABG x2 - denies chest pain, continue BB, Statin, Amiodarone, Eliquis, aspirin Acute Pain Management: APAP, Muscle Relaxant, Lidoderm Patch, Gabapentin, PO Narcotic Lines: PIV Fluids/Electrolytes/Nutrition: reg diet Ulcer Prophylaxis: None indicated Bowel Medications: Senna-S, Miralax twice daily and Dulcolax Suppository. LBM Size: Small (06/20/2022 11:59 PM) Urban: remove today DVT Prophylaxis: Mechanical, Mobilize, eliquis Restraints: Not indicated Wounds/Skin Care/Skidmore/Sutures: OOB and mobilize. Frequent turning and reposition [...] Progression Note Type: Shift to shift summary [id number] Length of stay: 4 days Code Status: [...] anus: Moderate bleeding, providers aware. - ASPEN 24/, mepilex. Pads changed this shift. T- Telemetry: [...] need some family member to come learn [place] pad change and cleaning if does d/c [...] or 0): 1 Ambulating SBA with walker. [place] in place. Therapies following U- Urologic/bowel: Size: Small (06/20/2022 11:59 PM) Urban removed around 1200, DTV [id number]. Voided 50cc, BS 400. Provider informed-flomax started. Straight cath x1 for 500 cc. BMs occasionally bloody d/t rectal prolapse/hemmrhoids. G- Glycemic Control: Not applicable T- Treatment: pain management, therapies, I- Invasive Devices: PIV D- Discharge: Awaiting d/c plan - progress with therapies over the weekend vs TCU (referrals sent). Will need some family member to come learn [place] pad change and cleaning if does d/c [...] once he is healed from his fracture -[place] collar to be worn at all times (09/06) x 3 months for C5 lamina fx -Okay to advance diet/activity as tolerated, therapies -Gabapentin 300mg TID for hyperesthesias -Okay to resume CERTIFIED EMERGENCY VEHICLE TECHNICIAN AC and DVT prophylaxis -Okay to dc [...] or 0): 1 Ambulating SBA with walker. [place] in place. Therapies following U- Urologic/bowel: Size: Small (06/20/2022 11:59 PM) Urban removed around 1200, DTV [id number]. BMs occasionally bloody d/t rectal prolapse/hemmrhoids. G- Glycemic Control: Not applicable T- Treatment: Awaiting d/c plan - progress with therapies over the weekend vs TCU (referrals sent) I- Invasive Devices: PIV D- Discharge: Awaiting d/c plan - progress with therapies over the weekend vs TCU (referrals sent). Will need some family member to come learn [place] pad change and cleaning if does d/c [...] interval history. 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 Initially seen at [place] where imaging revealed a C5 lamina fx. [...] - timing TBD pending inpatient recovey) - [place] X ??3 months -??Uprights completed, cleared to [...] of whiskey. He declines [facility] consult. - CIWA. - Vitamins.? Acute Pain due to Trauma Multimodal pain regimen: Acetaminophen, Robaxin, Lidoderm patches, Oxycodone, D/C IV dilaudid?? - Gabapentin at 300 mg TID last increased 06/20. ?? AUR - Urban placed 06/19 - remove today with voiding trial ?? Past Medical History: GERD - continue CERTIFIED EMERGENCY VEHICLE TECHNICIAN??PPI Osteoporosis - continue CERTIFIED EMERGENCY VEHICLE TECHNICIAN??Vitamins DVT/PE - restart CERTIFIED EMERGENCY VEHICLE TECHNICIAN eliquis STEMI with CABG x2 - denies chest pain, continue BB, Statin, Amiodarone, Eliquis, aspirin Acute Pain Management: APAP, Muscle Relaxant, Lidoderm Patch, Gabapentin, PO Narcotic Lines: PIV Fluids/Electrolytes/Nutrition: reg diet Ulcer Prophylaxis: None indicated Bowel Medications: Senna-S, Miralax and Dulcolax Suppository. LBM Size: Small (06/20/2022 11:59 PM) Urban: remove today DVT Prophylaxis: Mechanical, Mobilize, eliquis Restraints: Not indicated Wounds/Skin Care/Skidmore/Sutures: OOB and mobilize. Frequent turning and reposition [...] 1 or 0): 1 Ambulating A1 with walker.[place] in place. Therapies following U- Urologic/bowel: Size: Small (06/20/2022 11:59 PM) Urban in place. Noted hematuria. Irrigated with 30mL, no clots noted. UA sent down. Multiple BMs, occasionally bloody d/t hemmrhoids. G- Glycemic Control: Not applicable T- Treatment: CIWA, therapies, pain control I- Invasive Devices: PIV D- Discharge: TBD Faby Hubbard - 06/21/2022 2:26 AM CDT Paged by [...] tx and narrow per culture/ sensitivity Faby Hubbard, ROOM SERVICE FOOD SERVER, SWEET P[employer]LED FRUIT MAKER Phillip Jimenez RN - 06/20/2022 6:28 PM CDT [id number] Update: No acute events this shift. Patient [...] 1 or 0): 1 Ambulating A1 with walker.[place] in place. Therapies following . Did stairs [...] Home care services for Sara arranged with [facility] F; [phone]. 06/20/22 4:08 PM [facility] unable to take. 06/20/22 4:09 PM Home care services for Sara arranged with [facility] P; F; . Brenda Olson Associate Software Developer [facility] [phone] Edna Barragan PA-C - 06/20/2022 9:51 AM [...] once he is healed from his fracture -[place] collar to be worn at all times (09/06) x 3 months for C5 lamina fx -Okay to advance diet/activity as tolerated, therapies -Gabapentin 300mg TID for hyperesthesias -Okay to resume CERTIFIED EMERGENCY VEHICLE TECHNICIAN AC and DVT prophylaxis -Okay to dc [...] interval history. 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 No murmur. No JVD. Gastrointestinal: abdomen soft, non- tender, non-distended Musculoskeletal: QUEEN, hand broach grinder 4/5 bilat hands Integumentary: warm, dry Psych: [...] hypertension and alcohol abuse who presented to [facility] ED following fall out of bed. Initially seen at [place] where imaging revealed a [id number] fx. ?? Active Hospital Problems Accidental fall [...] - timing TBD pending inpatient recovey) - [place] X 3 months - Uprights completed, cleared [...] days Past Medical History: GERD - continue CERTIFIED EMERGENCY VEHICLE TECHNICIAN??PPI Osteoporosis - continue CERTIFIED EMERGENCY VEHICLE TECHNICIAN??Vitamins DVT/PE - holding CERTIFIED EMERGENCY VEHICLE TECHNICIAN Eliquis STEMI with CABG x2 - denies [...] with home care tomorrow. Family unable to berry picker today. 30 minutes total time spent with [...] 1 or 0): 1 Ambulating A1 with walker.[place] in place. Therapies following U- Urologic/bowel: No data recorded Still unable to void. Urban placed. No BM. G- Glycemic Control: Not applicable T- Treatment: CIWA, therapies, pain control I- Invasive Devices: PIV D- Discharge: TBD Faby Hubbard - 06/19/2022 11:57 PM CDT AUR despite 3 straight cath. Urban orders. Faby Hubbard, ROOM SERVICE FOOD SERVER, SWEET PICKLED FRUIT MAKER Adeola Arguello RN - 06/19/2022 10:41 PM [...] with A1, walker, Gb. Walker at baseline. New [place] at all times Early mobility Phases 1-4: [...] fx - timing TBD pending inpatient recovey) -[place] collar to be worn at all times (09/06) x 3 months for C5 lamina fx -Okay to advance diet/activity as tolerated, therapy consults -Gabapentin 300mg TID for hyperesthesias -Following along Edna Barragan PA-C Pager: 06/19/2022 2:14 PM Agree with above Patient with bilateral hand numbness and weakness. He is tolerating his [place] collar well MRI scan did reveal significant cervical stenosis I do feel this most closely fits with a central cord syndrome and I would like patient to recover before further discussion of surgery. No urgent surgical plans but will likely need decompression surgery after he is healed from his fracture Okay to increase activity as able Neurosurgical continue to follow Cornelio Ng MD [facility] [phone] Pg. [phone] Anahi Guido RN - 06/19/2022 10:39 AM [...] as tolerated/ADAT by neurosurg. Rates pain high. [place] on. Nausea, Zofran x 1. Tele discontinued. [...] Devices: PIV x2 D- Discharge: TBD Kaela Bhatti, ROOM SERVICE FOOD SERVER, SWEET PICKLED FRUIT MAKER - 06/19/2022 8:20 AM CDT TRAUMA TERTIARY [...] interval history. 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 no 4. [place] numb or detached from people, activities, or your surroundings? no 5. [place] guilty or unable to stop blaming yourself [...] bedside RN, Pharmacy, Social Work, charge nurse. Ihave seen this patient and discussed my findings and exam with Dr. Saini. The assessment and plan is based on our joint decision making. ASSESSMENT/PLAN: Sara Barillas is a chronically ill 72 year-old male with past medical history of congestive heart failure, CAD with prior STEMI status post CABG x2, hypertension and alcohol abuse who presented to [facility] ED following fall out of bed. Initially seen at [place] where imaging revealed a [id number] fx. Active Hospital Problems Accidental fall from [...] - timing TBD pending inpatient recovey) - New Creek X 3 months - Uprights completed, cleared [...] ?? 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 Able to turn and reposition independently. New Creek collar in place. Therapies consult today U- Urologic/bowel: No data recorded Straight cath x1, pt unable to void. No BM, possible rectal prolapse vs hemmrhoids G- Glycemic Control: Accuchecks every 6 hours while NPO T- Treatment: CIWA, therapies, pain control I- Invasive Devices: PIV D- Discharge: TBD Connie Collins RN - 06/18/2022 6:38 PM [...] read. Paged neurosurg that xray is done. New Creek collar in place. Turn and repo every [...] Linh Escobedo - 06/18/2022 4:50 PM CDT [facility] Rx: RADHA Bowens-C/New Creek collar Dx: C5 lamina fracture with associated burning pain to bilateral upper extremities Pt was seen in his [facility] room 627-01 this evening for fitting of an New Creek cervical collar. At arrival to room, pt supine in bed w/Amira collar in place. Pt c/o severe pain in hands & arms. Using C-spine precautions, Amira collar was removed, discarded & replaced w/New Creek collar. Pt tolerated well. Did not provide education at this time due to pending Neurosurgery consult. Replacement liner set, wear/care guide & contact info left bedside. Will follow for Neurosurgeryrec. Please call w/any questions or concerns. Thank you! Linh Escobedo Petroleum Engineering Teacher, Board Eligible Spring Tier. Gail Nguyen RN - 06/18/2022 4:18 PM CDT P. Admission A. Condition on Admit: alert. Patient/Family Concerns: Patient expressed concern about pain relief and diagnosis. I. Initial Interventions included: notified MD of patient arrival. Orientation to Unit: Patient oriented to how to call for help, name of assigned hearing healthcare practitioner, PatientInformation booklet, Handwashing, Respiratory Hygiene, How to Call a Response Team, initial physician orders, hourly rounding procedures, belongings checklist, unit and plan of care. R. Patient expressed understanding of information.. Melo Foley PA-C - 06/18/2022 3:31 PM CDT TRAUMA PROBLEM LIST/SUMMARY Admit Date: 06/18/2022 No past medical history on file. 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 MR confirmation of segmental [...] Dates: AUDIT-C: 06/19 ASD: 06/19 Sutures & Skidmore: Incidental Findings: Resolved Problems: Discharge follow up [...] x2, hypertension and alcohol abuse who [facility] following fall out of bed this morning. He was unable to get up, his son had tocome over and assist . 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 He was unable to get up, his son had to comeover and assist . He presented to [facility] where imaging there were positive for C5 [...] syndrome. - Symptomatic control. - Follow-up with Machinist Instructor at [facility] for continued management. C5 Fracture Secondary to mechanical fall from from bed. CTa pending to assess for BCVI. Patient remains neurovascularly intact, . - Neurosurgery consulted, appreciate recommendations. - C-spine precautions. - New Creek collar at all times. - MRI cervical [...] able. 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 All questions were answered to best of my ability. No concerns at that time. Update Called To: I contacted Dr. Conway at [facility] and updated him on patient's safe arrival [...] Admission Date: 06/18/2022 Precautions Precautions Devices/Equipment Required: New Creek Collar Precautions: Maintain head and neck in neutral Precautions Comments: New Creek at all times Assessment PT Assessment/Recommendations Assessment: [...] onset of weakness in wrist flexion/extension and broach grinder. If pt were to d/c todaywould require [...] pt discharged home. He then re-presented back [facility] ED that morning c/o bilat arm/hand pain: repeat HCT neg, C spine revealed right L5 lamina fx. Hewas transferred to [facility] and neurosurgery consulted for further evaluation. Pertinent [...] spouse in apartment which is connecting to [facility] house Prior Level of Functional Mobility [...] Strength: RUE strength assessed, LUE strength assessed (broach grinder very weak and wrist flex/ext also significantly [...] R wrist flexion, R wrist extension, R broach grinder strength R Shoulder Flexion: 4-/5 R Shoulder Extension: 4-/5 R Shoulder ABduction: 3+/5 R Shoulder ADduction: 4/5 R Elbow Flexion: 4/5 R Elbow Extension: 4/5 R Wrist Flexion: 3+/5 R Wrist Extension: 3+/5 R Shear Assembler Strength: weak. able to hold a pen but not much more Overall LUE Strength: Impaired due to pain, Impaired due to weakness, Impaired due to recent trauma,Impaired due to chronic condition (arthritis) LUE MMT: L shoulder flexion, L shoulder extension, L shoulder ABduction, L shoulder ADduction, L elbow flexion, L elbow extension, L wrist flexion, L wrist extension, L broach grinder strength L Shoulder Flexion: 4-/5 L Shoulder Extension: 4-/5 L Shoulder ABduction: 3+/5 L Shoulder ADduction: 4/5 L Elbow Flexion: 4/5 L Elbow Extension: 4/5 L Wrist Flexion: 3+/5 L Wrist Extension: 3+/5 L Shear Assembler Strength: weak. able to hold a pen [...] CGA to complete stairs. He is unsteady. [facility] AM-PAC 6-Clicks Turning over in bed (including [...] For Next Session: Further BUE assessment (FMC, broach grinder), feeding (trial built up utensils), LE dressing GENERAL General Visit Type: Initial Evaluation Onset Date: 06/18/22 Diagnosis: C5 pedicle fracture Admission/Diagnosis Details: presents to [facility] ED following fall out of bed this morning. He was unable to get up, his son had to come over and assist . [facility] [...] Family/Caregiver Present: No PRECAUTIONS Precautions Devices/Equipment Required: New Creek Collar SAFETY INTERVENTIONS Safety Interventions Fall Risk?: Yes Safety Interventions/Patient Disposition: Standard interventions, Bed alarm on, In bed, All needs within reach, Call light in hand HOME LIVING Home Setup Type of Home: Apartment Lives With: Spouse Comment: Pt reports living with spouse in apartment which is connecting to sons house PRIOR FUNCTION ADL/IADL Prior Function ADL/IADL Patient is independent with: ADLs, Steam Conditioner Filling, Medication Management, Driving Patient needs assist with: [...] Frame Short term goals target date: 06/22/22 MCFP goals target date: 06/25/22 STG Grooming Patient [...] coordination, with verbal cues Outcome: Goal Ongoing Mcfp Goals Patient will complete ADLs including: feeding, [...] right L5 lamina fx.He was transferred to [facility] and neurosurgery consulted for further evaluation. At [...] to be worn at all times. Consulted [facility] for a custom fit aspen collar [...] DVT prophylaxis. Further recs pending C MRI. Edan Barragan PA-C Pager: 06/18/2022 4:01 PM Agree with above Pt with C5 lamina fracture after a fall He does have some burning pain in his hands. Will get an MRI No surgical plans for now Plan on treating fracture with an aspen at all times Will cont to follow Cornelio Ng MD [facility] Neurosurgery [phone] Pg. [phone] documented in this encounter Nursing Notes Rebeka [...] Admission Date: 06/18/2022 Precautions Precautions Devices/Equipment Required: New Creek Collar Precautions: Maintain head and neck in neutral Precautions Comments: New Creek at all times Assessment PT Assessment/Recommendations Assessment: [...] but does need help with adjusting his New Creek collar and general safety d/t mentation and [...] C5 pedicle fracture Admission/Diagnosis Details: Presents to [facility] ED following fall out of bed this morning. He was unable to get up, his son had to come over and assist . [facility] [...] with trial O2 removal - no desat ' ambulation - ok'd to leave off) O2 [...] less steady with ambulation and feeling weaker. Croze Cutter Helper agrees. Pt cued for upright posture with [...] Pt given education and handout regarding HEP. [facility] AM-PAC 6-Clicks Turning over in bed (including [...] (care team rounds entered just prior to junior copywriter leaving') Comment: bed alarm left off as [...] Total Billable Minutes: 27 Minutes Kali Jain HEALTHCARE ASSOCIATE - 06/24/2022 8:42 AM CDT Problem: Discharge Planning Goal: Establish appropriate post-hospitalization placement Outcome: Ongoing Flowsheets (Taken 06/24/2022 0842) Date of Last CM Visit: 06/24/22 Care Management - Progress Note Patient's chart reviewed. Patient discussed in rounds. Assessment: Admitted for evaluation of fall sustaining C5 fx. ??NSGY following- plan for New Creek??collar x3 months.? Anticipated Discharge Date: today Anticipated Discharge Needs: Home with support, home care Potential Barriers: None Identified Care Coordination Plan & Communication with Patient/Family: Therapies now recommending home withsupport and home care. Per PT note, pt does not need physical assistance with mobility other than the 2 STS and help with adjusting his New Creek collar. Per trauma provider Melo, son completed New Creek teaching yesterday. Home care arranged with [facility]. Croze Cutter Helper left a VM for pt's dtr Lila (p. [phone]) to update regarding the above. If family wouldlike to continue to pursue TCU placement, it would be private pay. ADD 10:59AM Croze Cutter Helper able to connect with pt's dtr Lila. She reported that her brother visited pt at bedside yesterday and noted that he 'cant walk' and is refusing to take him home. Lila asked that junior copywriter reach out to pt's son Jefry to discuss further. SW able to reach pt's son Jefry (p. [phone]). Croze Cutter Helper reviewed hospital course and therapy recommendations noting that pt is independent with use of walker. Jefry reported that 'we are going to have to figure something out because he (pt) is unable to come home.' Jefry noted that he is concerned pt is going to fall. Croze Cutter Helper reiterated therapy recommendations and discussed home care services. EDISON discussed private pay TCU as only addtl option. Jefry stated that he would call pt to discuss private pay TCU. Croze Cutter Helper will follow up with pt at bedside to discuss further. ADD 11:24AM SW received an updated call from pt's dtr Lila noting that they would like pt to private pay for TCU through Friday as they have 'things they need to figure out at home.' Croze Cutter Helper attempted to meet withpt at bedside but currently working with therapies doing stairs. ADD 11:55AM Croze Cutter Helper met with pt at bedside to discuss private pay TCU. Pt noted that he would be in agreement to private pay for a TCU 'for a couple days' if absolutely needed. 1. [facility] in [place] (p. [phone], f. [phone]): Croze Cutter Helper left a VM for admissions regarding bed availability and ability to review referral. Continued Care and Services - Admitted Since 06/18/2022 Destination Service Provider Request Status Selected Services Address Phone Fax Patient Preferred [facility] Declined No appropriate bed N/A [address] [facility] [address] -- Internal Comment last updated by JACI Cornejo 06/24/2022 1320 06/24 [facility] Croze Cutter Helper left a VM to discuss private pay TCU for New Creek cares. ADD 1:19PM Per Lee Ann, pt not appropriate for TCU if there is no skilled need. 06/21 [facility] Croze Cutter Helper left a VM for admissions regarding bed availability. Granted Epic access for review. [facility] Declined No appropriate bed N/A [address] [facility] [facility] [place] [address] [phone] -- Internal Comment last updated by JYOTI CornejoSW 06/24/2022 1249 06/24 SW GM Per Katie, there is no skilled need for TCU so they are unable to accept. 06/21 SW GM Per Katie, no weekend bed availability. [facility] Facility Full N/A [address] [facility] [address] [phone] -- Internal Comment last updated by Kali Jain, HEALTHCARE ASSOCIATE 06/24/2022 1247 06/24 SW GM Per Rashmi in admissions, no beds available until Friday. 06/21 SW GM Croze Cutter Helper left a VM for Rashmi in admissions. Granted Psychiatric access for review. ADD 1:24PM Croze Cutter Helper updated by multiple facilities that they are unable to accept pt to TCU (even in private pay)due to lack of skilled need. New Creek collar cares does not qualify as a skilled need. Only option at this time is d/c home with private pay home care. Croze Cutter Helper called pt's dtr Lila and son Jefry to update regarding the above. Sent private pay home care list to pt's dtr Lila ([email or web address]). Croze Cutter Helper reiterated to family that pt is medically stable for d/c and plan will be for d/c home tomorrow (Friday) with private pay home care. Updated pt at bedside and trauma provider Melo as well. ADD 2:59PM Croze Cutter Helper updated by pt's dtr Lila that private pay home care is booked until next week so she is requesting pt d/c today. She will be here in about an hour. Paged trauma provider Melo to update and also Epic chatted bedside MALIKA Nance and grid operatorMALIKA Rosales. COVID Test Result: No results found for: [id number], [id number], [id number], [id number] ANN Lo, [facility] 06/24/2022 8:47 AM Megan Moreno RN - 06/24/2022 12:20 AM CDT Problem: Constipation Goal: Verbalizes an understanding of constipation risk factors and prevention strategies Outcome: Met this shift Note: Scheduled Senna and Miralax given BID. Croze Cutter Helper also gave PRN Milk of mag w/o relief. Pt has prolapse and hemorrhoids causing bleeding -provider aware. Megan Moreno RN - 06/23/2022 10:00 PM CDT Problem: Pressure Injury - Risk of Goal: Absence of pressure injury Outcome: Met this shift Note: No PI noted this shift. Croze Cutter Helper removed ASPEN and changed pads, mepilex in place. Problem: Pain Goal: Exhibits reduction in pain to a level of acceptable comfort Outcome: Met this shift Note: Pt reports adequate pain control w/current regime. Ivett Grady RN - 06/23/2022 6:58 PM CDT Problem: Falls/Injury-Risk of Goal: Absence of Falls/Injury Outcome: Met this shift Flowsheets (Taken 06/23/2022 2135) Environmental Safety Interventions: Standard Interventions in Place [...] Problem: Falls/Injury-Risk of Goal: Absence of Falls/Injury 06/22/2022 1547 by Bonita Leija RN Outcome: Met this shift Note: Patient free of falls this shift. Patient demonstrated proper use of call light. Green bracelet, red socks, bed alarm on at all times. Problem: Pain Goal: Exhibits reduction in pain to a level of acceptable comfort 06/22/2022 1547 by Bonita Leija RN Outcome: Met this [...] numeric pain scale after interventions applied. Anahi Alejo, PT - 06/22/2022 12:29 PM CDT Acute Physical Therapy Treatment Patient Name: Sara Barillas Today's Date: 06/22/2022 Admission Date: 06/18/2022 Precautions Precautions Devices/Equipment Required: New Creek Collar Precautions: Maintain head and neck in neutral Precautions Comments: New Creek at all times Assessment PT Assessment/Recommendations Assessment: [...] the 2 STSand help with adjusting his New Creek collar. Family will need to learn how [...] C5 pedicle fracture Admission/Diagnosis Details: Presents to [facility] ED following fall out of bed this morning. He was unable to get up, his son had to come over and assist . [facility] [...] to enter the home without a rail. [facility] AM-PAC 6-Clicks Turning over in bed (including [...] Flowsheets (Taken 06/21/[address] [facility]) Date of Last CM Visit: 06/21/22 Note: Therapies currently recommending a TCU or 09/06 home support d/t ASPEN. TCU placement will prove difficult d/t ETOH use. Therapies to re-visit/assess. Megan Moreno RN - 06/21/2022 9:00 PM CDT Problem: Falls/Injury-Risk of Goal: Absence of Falls/Injury Outcome: Met this shift Flowsheets (Taken 06/21/2022 5178) Environmental Safety Interventions: Standard Interventions in Place [...] shift Note: No PI noted this shift. Croze Cutter Helper did change ASPEN pads and place foam [...] C5 pedicle fracture Admission/Diagnosis Details: Presents to [facility] ED following fall out of bed this morning. He was unable to get up, his son had to come over and assist . [facility] lamina fracture with associated burning pain to bilateral upper extremities. Pertinent Past Medical History: congestive heart failure, CAD with prior STEMI status post CABG x2, hypertension and alcohol abuse Patient Seen In: Room Subjective (Comment): Pt sleeping upon OT arrival. PRECAUTIONS Precautions Devices/Equipment Required: New Creek Collar SAFETY INTERVENTIONS Safety Interventions Fall Risk?: [...] post-hospitalization placement Outcome: Ongoing Flowsheets (Taken 06/21/2022 6910) Date of Last CM Visit: 06/21/22 Care Management - Progress Note Patient's chart reviewed. Patient discussed in rounds. Assessment: Admitted for evaluation of fall sustaining C5 fx. ??NSGY following- plan for New Creek collarx3 months. Anticipated Discharge Date: TBD pending [...] a call from pt's dtr Lila (p. [phone]) who reported that family is unable to provide 24/7 support as both her and her brother have kids and other obligations. They are interested in TCU placement. Lila aware that pt may progress to d/c home with home care prior to TCU acceptance as weekend TCU bed availability is extremely limited. Lila prefers placement in [place] but is open to placement near the [facility] as well. Updated trauma provider Melo who will request pt be seen by PT over the weekend. 1. [facility] in [place] (p. [phone], f. [phone]): Per Vida, no bed available until Friday. Faxed referral for review. 2. [facility] (p. [phone]): Croze Cutter Helper left a VM for admissions to discuss bed availability and get fax number. Continued Care and Services - Admitted Since 06/18/2022 Destination Service Provider Request Status Selected Services Address Phone Fax Patient Preferred [facility] Pending - No Request Sent N/A [address] [facility] [phone] -- Internal Comment last updated by AJCI Cornejo 06/21/2022 1446 8/ [facility] Croze Cutter Helper left a VM for admissions regarding bed availability. Granted Psychiatric access for review. [facility] Pending - No Request Sent N/A [address] [facility] [place] [address] [phone] -- Internal Comment last updated by JYOTI CornejoSW 06/21/2022 1445 8/5 SW Per Katie, no weekend bed availability. [facility]ASS[facility]OR CALLIE [facility] Pending - No Request Sent N/A [address] [facility] [phone] -- Internal Comment last updated by JACI Cornejo 06/21/2022 1445 06/21 [facility] Croze Cutter Helper left a VM for Rashmi in admissions. Granted Psychiatric access for review. COVID Test Result: No results found for: [id number], [id number], [id number], [id number] ANN Lo, HEALTHCARE ASSOCIATE 06/21/2022 2:46 PM Erlinda Jackson RN - [...] in Place Taken 06/20/2022 0800 by Anahi Guido, MALIKA Consults: Physical Therapy (Requires MD Order) Occupational Therapy (Requires MD Order) Note: No falls this shift. Pt ambulating in room independently. Problem: Communication Goal: Demonstrates/exhibits ability to communicate needs effectively Outcome: Met this shift Note: Pt uses call light appropriately to make wants and needs known. Problem: Anticoagulation, pharmacologic therapy Goal: Adheres to therapeutic regimen Outcome: Met this shift Note: IRIS Palmer Problem: Mobility - Impaired Goal: Demonstrates ability to perform physical activity independently or with assistive devices as needed Outcome: Met this shift Brenda Pereira PT - 06/21/2022 10:03 AM CDT Acute Physical Therapy Treatment Patient Name: Sara Barillas Today's Date: 06/21/2022 Admission Date: 06/18/2022 Precautions Precautions Devices/Equipment Required: New Creek Collar Precautions: Maintain head and neck in neutral Precautions Comments: New Creek at all times Assessment PT Assessment/Recommendations Assessment: [...] C5 pedicle fracture Admission/Diagnosis Details: Presents to [facility] ED following fall out of bed this morning. He was unable to get up, his son had to come over and assist . [facility] [...] Sit to Supine: Independent Dangling: Independent Setup/Equipment: [facility] flat Bed Mobility Comments: PT adjusted New Creek collar to fit properly while pt supine. Transfers Sit to/from Stand Level of Assist: Modified independent Assistive Device: Rolling walker Therapeutic Exercise Ambulation Bout 1 Distance (ft): ~300' Assistive Device: Rolling walker Level of Assist: Standby Assist Quality of Gait: Pt has flexed posture. Talkative about his back issues. Encouraged pt to stand moreupright, I know that I'm supposed to do that. [facility] AM-PAC 6-Clicks Turning over in bed (including [...] RN Outcome: Met this shift 06/20/20222142 by mEi Babb RN Outcome: Met this shift Emi [...] post-hospitalization placement Outcome: Ongoing Flowsheets (Taken 06/20/2022 3862) Date of Last CM Visit: 06/20/22 Care Management - Progress Note Patient's chart reviewed. Patient discussed in rounds. Assessment: Admitted for evaluation of fall sustaining C5 fx. NSGY following- plan for [place] collar x3 months. Anticipated Discharge Date: likely [...] COVID Test Result: No results found for: [id number], [id number], [id number], [id number] ANN Lo, JACI 06/20/2022 2:01 PM Barbra [...] mild impulsivitiy. Continues to demosntrate decreased BUE broach grinder, coordination, and sensation evidenced by functional testing. Provided pt with AE to assist with se lf feeding and additional ADL tasks with demonstrated understanding. Further provided pt with theraputty to assist with improving BUE broach grinder strength and coordination. Continue to follow to address goalsstated in OT POC. Recommend d/c home with 24/7 supervision and homecare vs OP OT. Recommendations For Next Session: Pegboard, bilateral coordination tasks, ADLs at sink GENERAL General Visit Type: Treatment Onset Date: 06/18/22 Diagnosis: C5 pedicle fracture Admission/Diagnosis Details: presents to [facility] ED following fall out of bed this morning. He was unable to get up, his son had to come over and assist . [facility] [...] participate in therapy. PRECAUTIONS Precautions Devices/Equipment Required: [place] Collar Precautions: Maintain head and neck in neutral Precautions Comments: [place] at all times SAFETY INTERVENTIONS Safety Interventions [...] Exercise: As a method to improve BUE broach grinder strength and coordination for functional use during ADL/IADL tasks, pt provided with theraputty and HEP. Demonstrated understanding. Activity Tolerance Endurance: Participates 20-30 min of therapy session Upper Extremity Function Hand Function Right Hand Function: Impaired Right Shear Assembler: 13# Right Hand 9-Hole Peg Test: 61.9 seconds Left Hand Function: Impaired Left Shear Assembler: 22# Left 9-Hole Peg Test: 56.8 seconds [...] Short term goals target date: 06/22/22 terminal gauger goals target date: 06/25/22 STG Grooming Patient [...] coordination, with verbal cues Outcome: Goal Ongoing Computer Systems Architect Goals Patient will complete ADLs including: feeding, dressing, hygiene/grooming, toileting, with set-up/supervision Outcome: Goal Ongoing Ayleen Salmon, PT - 06/20/2022 10:42 AM CDT Acute Physical Therapy Treatment Patient Name: Sara Barillas Today's Date: 06/20/2022 Admission Date: 06/18/2022 Precautions Precautions Devices/Equipment Required: [place] Collar Precautions: Maintain head and neck in neutral Precautions Comments: [place] at all times Assessment PT Assessment/Recommendations Assessment: [...] Device: FWW Recommended Discharge Disposition: Home with 24/ supervision Recommended Continued PT Upon Discharge: Home health PT Equipment Recommended for Home: Rolling walker, Shower chair Equipment Issued: None (pt states he owns all needed DME) Encounter Details General Diagnosis: C5 pedicle fracture Admission/Diagnosis Details: presents to [facility] ED following fall out of bed this morning. He was unable to get up, his son had to come over and assist . [facility] lamina [...] as pt has two walkers he uses. [facility] AM-PAC 6-Clicks Turning over in bed (including [...] acceptable comfort Outcome: Met this shift JACI Cornejo - 06/19/2022 2:00 PM CDT Problem: Discharge Planning Goal: Establish appropriate post-hospitalization placement Outcome: Ongoing Flowsheets (Taken 06/19/2022 1400) Date of Last CM Visit: 06/19/22 Discharge Planning Initial Assessment Patients chart reviewed. Patient discussed in rounds. Admitting diagnoses: C5 pedicle fracture (HCC) [S12.711A] Admitted from: Home Prior Living Arrangements: Spouse/significant other Support Systems: Spouse/significant other;Family members;Children Primary decision maker: Patient DME prior to admission: cane, walker Anticipated Discharge Needs: TBD Care coordination initiated: Admitted for evaluation of fall sustaining C5 fx. NSGY following-plan for [place]. SW met with pt at bedside to introduce self, role of SW and to establish baseline measures.Pt lives with his in an apartment connected to his son's house near [place] at baseline. Pt reported a hx of frequent falls and a recent hospiliziation at [facility] for 'heart issues.' Pt noted that he has been using a cane and walker since d/c home from [facility]. Pt reported support from his son Grayson and his family ( and two children) that live next door, his dtr that lives in [place] and his youngest son Roberto who lives 'in [facility] Conversation with pt cut short as Dr. Ng with NSGY a rrived to discuss C5 fx and treatment course with pt. Croze Cutter Helper notified [facility] of pt's status. PT/OT to see. Discharge needs to be determined pending hospital course and therapy recommendations. ETOH and daily THC use will be a barrier to TCU placement if recommended. Barriers to discharge: Medical Stability COVID Test Result: No results found for: [id number], [id number], [id number], [id number], [id number] Care management will continue to follow. ANN [...] of a fall. The patient comes from [facility] ED for evaluation after following out of [...] or urinary changes. During his stay at [place], he had a CT scan of his [...] has been ordered. Work up reviewed from [place]: EKG with SR, CT head and c-spine, COVID/Flu/RSV test, drug screen, labs including CBC, BMP, etoh, ionized calcium, liver panel, PTT, PT/INR, troponin. WBC 11.3. Johanna has been sent on arrival here, as [...] fracture of fifth cervical vertebra, initial encounter ([facility]) S12.490A 2. Closed head injury, initial encounter [...] recordis accurate. Brenda Fair MD 06/18/22 06/18/2022 [facility] EMERGENCY DEPARTMENT Ayleen Valencia RN - 06/18/2022 12:48 PM CDT Reviewed transfer note, pt VSS upon arrival. Pt was given morphine and zofran CERTIFIED EMERGENCY VEHICLE TECHNICIAN. Pt vomited x1 after the morphine. Pt has tingling/numbness/burning in bilateral wrists to his hands. Pt in 10/10 pain upon arrival. Alert and oriented x4. Carl Montero MD - 06/18/2022 11:11 AM CDT Transfer to [facility] Information Transferring facility: [facility] EDMD taking transfer request: Winston Kaufman MD / specialist notified: Dr. Saini Special needs / direction: Continued C-spine immobilization. Description of Illness / Injury: 72-year-old male, fell out of bed, 11 PM 06/17/2022. Upper and lower extremity paresthesias and weakness. CTA neck reveals lamina fracture at C5. CTA head negative. Carl Montero MD, FACEP Staff Emergency Physician [facility] documented in this encounter Miscellaneous Notes Med Reconciliation - Jacklyn Corral - 06/18/2022 2:57 PM CDT PHARMACY MEDICATION RECONCILIATION NOTE MEDICATION RECONCILIATION on admission by pharmacy has been completed. Prior to admission medications were reviewed with [facility] records and the patient. The CERTIFIED EMERGENCY VEHICLE TECHNICIAN medication list has been updated and reflected in the chart below. Please use the CERTIFIED EMERGENCY VEHICLE TECHNICIAN medication section for ordering home doses during admission. Medication related issues 1. Added all meds to CERTIFIED EMERGENCY VEHICLE TECHNICIAN according to [facility] records. 2. Isosorbide - most recent fill [...] Medications: None This patient obtains medications from [facility] - [place], [place] - [facility]. Thank you for the opportunity to participate in the care of this patient. Jacklyn Cardenas, J2Ee Application Developer Phone #:[phone] or [phone] Time spent reconciling meds:15 min Location: face to face encounter Associated attestation - Diana Feliciano (April), Cristóbal Rasheed - 06/18/2022 4:00 PM CDT Reviewed pharmacy [...] CREATININE 1.18 (H) 0.60 - ATELLICA 06/24/2022 [facility] 1.10 ANALYZER 10:49 AM CDT HEALTH mg/dL LABORATORY EST GFR >60.00 >60.00 ATELLICA 06/24/2022 [facility] (CKD-EPI) mL/min/1. ANALYZER 10:49 AM CDT HEALTH 73m2 LABORATORY Comment: Calculation based on the Chroni c Kidney Disease Epidemiology Collaboration (CKD-EPI) equation refit without adjustm ent for race. Specimen Anatomical Collection Method Collection Time Receive d Time (Source) Location / / Volume Laterality Blood 06/24/2022 7:13 AM 2 7:39 CDT AM CDT Molly Ambrocio D CHEMISTRY ORDERABLE Performing Organization Address City/[facility]/ZIP Code Phon e Number [place] [address] [place] [address] LABORATORY Extra Tube PST (Lab Use Only) (06/24/2022 7:13 AM CDT) Specimen Anatomical Collection Method Collection Time Receive d Time (Source) Location / / Volume Laterality Blood 06/24/2022 7:13 AM 2 7:39 CDT AM CDT Megan Moreno RN CHEMISTRY ORDERABLE Performing Organization Address City/[facility]/ZIP Code Phon e Number [address] [place] [address] LABORATORY (ABNORMAL) Hemoglobin (06/24/2022 7:13 AM CDT)Only the most recent of2 results within the time period is included. P athologist Signature HEMOGLOBIN 11.6 (L) 14.0 - 06/24/2022 [facility] 18.0 gm/dL 7:42 AM CDT HEALTH LABORATORY Specimen Anatomical Collection Method Collection Time Receive d Time (Source) Location / / Volume Laterality Blood Butterfly / 06/24/2022 7:13 AM 2 7:29 Unknown CDT AM CDT Melo Foley PA-C HEMATOLOGY ORDERABLE Performing Organization Address City/[facility]/ZIP Code Phon e Number [address] [place] [address] LABORATORY (ABNORMAL) Urine Culture (06/21/2022 3:09 AM CDT) Patholo gist Method Time Signature Urine Culture 50,000 - MARYLOU 06/24/2022 [facility] 100,000 7:48 AM CDT [facility] cfu/ml of LABORATORY Staph. sp. not S.aureus (A) Specimen Anatomical Collection Method Collection Time Receive d Time (Source) Location / / Volume Laterality Urine URINE SPECIMEN 06/21/2022 3:09 AM 022 3:11 OBTAINED VIA CDT AM CDT INDWELLING URINARY CATHETER / Unknown Narrative [facility] LABORATORY - 06/24 7:48 AM CDT [...] APRN, CNP MICROBIOLOGY ORDERABLE Performing Organization Address City/[facility]/ZIP Code Phon e Number [facility] [address] [place] [address] LABORATORY (ABNORMAL) Urinalysis Microscopy (Lab Use Only) (06/21/2022 3:09 AM CDT) [facility] gist Method Time Signature WBC-UA MICRO 1-4 None Seen, 06/21/2022 [facility] Occasional 3:44 AM CDT HEALTH , Few, 1-4 LABORATORY /hpf RBC-UA Packed None Seen, 06/21/2022 [facility] Field (A) Occasional 3:44 AM CDT HEALTH , 1-2 /hpf LABORATORY Specimen Anatomical Collection Method Collection Time Receive d Time (Source) Location / / Volume Laterality Urine URINE SPECIMEN 06/21/2022 3:09 AM 022 3:11 OBTAINED VIA CDT AM CDT INDWELLING URINARY CATHETER / Unknown Faby Hubbard APRN, CNP URINE ORDERABLE Performing Organization Address City/State/ZIP Code Phon e Number [facility] [place] [address] LABORATORY (ABNORMAL) Urinalysis Macroscopic w/ Microscopy, if indicated (Does not inc culture) (06/21/2022 3:09 AM CDT) Patholo gist Method Time Signature GLUCOSE, UA Negative Negative 06/21/2022 [place] mg/dL 3:44 AM [facility] KETONE, UA Negative Negative 06/21/2022 [place] mg/dL 3:44 AM [facility] BILIRUBIN, UA Small (A) Negative 06/21/2022 [place] 3:44 AM [facility] PROTEIN, UA 30 (A) Negative 06/21/2022 [place] mg/dL 3:44 AM [facility] OCCULT BLOOD, Large (A) Negative, 06/21/2022 [place] UA Trace 3:44 AM [facility] WBC ESTERASE, Moderate (A) Negative, 06/21/2022 [place] UA Trace 3:44 AM [facility] NITRITE, UA Negative Negative 06/21/2022 [place] 3:44 AM [facility] pH Urine 6.0 5.0 - 8.0 06/21/2022 [place] 3:44 AM [facility] LABORATORY Specific 1.010 (A) 1.015 - 06/21/2022 [place], UA 1.025 3:44 AM [facility] Urobilinogen, 0.2 0.2 - 1.0 06/21/2022 [place] UA EU/dL 3:44 AM [facility] Specimen Anatomical Collection Method Collection Time Receive d Time (Source) Location / / Volume Laterality Urine URINE SPECIMEN 06/21/2022 3:09 AM 022 3:11 OBTAINED VIA CDT AM CDT INDWELLING URINARY CATHETER / Unknown Faby Hubbard APRN, SWEET PICKLED FRUIT MAKER URINE ORDERABLE Performing Organization Address City/State/ZIP Code Phon e Number [facility] [place] [address] LABORATORY Magnesium (06/20/2022 6:26 AM CDT)Only the most recent of2 resultswithin the time period is included. athologist Signature Magnesium 1.6 1.6 - 2.6 ATELLICA 06/20/2022 [facility] mg/dL ANALYZER 7:22 AM [facility] LABORATORY Specimen Anatomical Collection Method Collection Time Receive d Time (Source) Location / / Volume Laterality Blood 06/20/2022 6:26 AM 2 6:58 CDT AM CDT Judith Guerrero PA-C CHEMISTRY ORDERABLE Performing Organization Address City/[facility]/ZIP Code Phon e Number [facility] [address] [place] [address] LABORATORY Potassium, Serum (06/20/2022 6:26 AM CDT) athologist Signature POTASSIUM 4.2 3.4 - 5.1 [facility] 06/20/2022 [facility] mmol/L ANALYZER 7:15 AM [facility] LABORATORY Specimen Anatomical Collection Method Collection Time Receive d Time (Source) Location / / Volume Laterality Blood 06/20/2022 6:26 AM 2 6:58 CDT AM CDT Judith Guerrero PA-C CHEMISTRY ORDERABLE Performing Organization Address [facility]/ZIP [facility] Phon e Number [place] [address] [facility] [place] [address] LABORATORY POCT Glucose Meter (06/19/2022 7:55 AM CDT)Only the most recent of3 results within the time period is included. athologist Signature GLUCOSE WB 81 60 - 100 06/19/2022 [facility] METER mg/dL 8:19 AM [facility] LABORATORY Specimen Anatomical Collection Method Collection Time Receive d Time (Source) Location / / Volume Laterality Blood 06/19/2022 7:55 AM 2 8:19 CDT AM CDT Brenda Saini MD LAB POINT OF CARE TEST RESUL TS Performing Organization Address City/[facility]/ZIP Code Phon e Number [facility] [address] [address] LABORATORY (ABNORMAL) Basic Metab Profile (06/19/2022 4:51 AM CDT) athologist Signature SODIUM 140 136 - 145 [facility]/19[facility]2022 [facility] mmol/L ANALYZER 6:24 AM [facility] LABORATORY POTASSIUM 4.4 3.4 - 5.1 [facility] 06/19/2022 [facility] mmol/L ANALYZER 6:24 AM [facility] LABORATORY Comment: Interpret with caution, specime n slightly hemolyzed. Results may be affected CHLORIDE 107 98 - 108 [facility] 06/19/2022 6:24 [facility] mmol/L ANALYZER AM [facility] LABORATORY CARBON DIOXIDE 22 20 - 31 [facility] 06/19/2022 6:24 [facility] mmol/L ANALYZER AM [facility] LABORATORY BUN (UREA NITRO) 19 9 - 23 mg/dL [facility] 06/19/2022 6:24 [facility] ANALYZER AM [facility] LABORATORY CREATININE 1.19 (H) 0.60 - 1.10 [facility] 06/19/2022 6:24 [facility] IAL mg/dL ANALYZER AM [facility] LABORATORY EST GFR >60.00 >60.00 [facility] 06/19/2022 6:24 [facility] (CKD-EPI) mL/min/1.73m ANALYZER AM [facility] 2 LABORATORY Comment: Calculation based on the Chroni c Kidney Disease Epidemiology Collaboration (CKD-EPI) equation refit without adjustm ent for race. GLUCOSE 98 74 - 106 [facility] 06/19/2022 6:24 [facility] mg/dL ANALYZER AM [facility] LABORATORY CALCIUM, SERUM 9.2 8.7 - 10.4 [facility] 06/19/2022 6:24 [facility] mg/dL ANALYZER AM [facility] LABORATORY ANION GAP 11.0 0.0 - 15.0 [facility] 06/19/2022 6:24 [facility] mmol/L ANALYZER AM [facility] LABORATORY Specimen Anatomical Collection Method Collection Time Receive d Time (Source) Location / / Volume Laterality Blood 06/19/2022 4:51 AM 5:[facility] Guerrero [facility]-C CHEMISTRY ORDERABLE Performing Organization Address City/State/ZIP Code Phon e Number [facility] [address] [place] [address] LABORATORY (ABNORMAL) CBC (HGB,HCT,WBC,RBC,Platelet) (06/19/2022 4:51 AM CDT) [facility] gist Method Time Signature WBC 9.2 4.3 - 10.8 06/19/2022 [facility] K/uL 6:00 AM CDT HEALTH LABORATORY RBC 3.53 (L) 4.60 - 06/19/2022 [facility] 6.20 M/uL 6:00 AM CDT HEALTH LABORATORY HEMOGLOBIN 12.4 (L) 14.0 - 06/19/2022 [facility] 18.0 gm/dL 6:00 AM CDT HEALTH LABORATORY HEMATOCRIT 37.9 (L) 40.0 - 06/19/2022 [facility] 54.0 % 6:00 AM CDT HEALTH LABORATORY MCV 107 (H) 80 - 100 06/19/2022 [facility] fl 6:00 AM CDT HEALTH LABORATORY MCH 35 (H) 27 - 33 pg 06/19/2022 [facility] 6:00 AM CDT HEALTH LABORATORY MCHC 33 33 - 36 06/19/2022 [facility] gm/dL 6:00 AM CDT HEALTH LABORATORY RDW 14.2 11.5 - 06/19/2022 [facility] 14.5 % 6:00 AM CDT HEALTH LABORATORY PLATELET COUNT 191 150 - 400 06/19/2022 [facility] K/UL 6:00 AM CDT HEALTH LABORATORY MPV 10.7 6.5 - 12 06/19/2022 [facility] 6:00 AM CDT HEALTH LABORATORY Specimen Anatomical Collection Method Collection Time Receive d Time (Source) Location / / Volume Laterality Blood 06/19/2022 4:51 AM 5:51 CDT AM CDT Judith Guerrero PA-C HEMATOLOGY ORDERABLE Performing Organization Address City/State/ZIP Code Phon e Number [facility] [address] [place] [address] LABORATORY MRI SPINE CERVICAL W/O CON (06/18/2022 [...] follow-up is recommended. Report signed by Rito Brown 06/18/2022 3:51 PM CDT Examination: CT Angiography of theneck with Contrast 06/18/2022 3:19 PM Indication: Fall on and pelvis. C5 ras a fracture. Comparison: Outside CT cervical spine Au [facility] 2021 Technique: CT angiography of the neck [...] documented in this encounter Visit Diagnoses Diagnosis Accidental fall from bed - Primary Other closed displaced fracture of fifth cervical vertebra, initial encounter ([facility]) Closed head injury, initial encounter Abrasion of scalp, initial encounter Paresthesia Disturbance of skin sensation Bilateral arm pain Pain in limb Fall from bed, initial encounter C5 pedicle fracture ([facility]) Closed fracture of fifth cervical verteb ra without mention of spinal cord injury 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, init ([facility]) S/P CABG x 2 Postsurgical aortocoronary bypass status COPD (chronic obstructive pulmonary dise ase) ([facility]) Chronic airway obstruction, not elsewher e classified documented in this encounter Admitting Diagnoses Diagnosis C5 pedicle fracture ([facility]) Closed fracture of fifth cervical verteb ra [...] FOUR TIMES A DAY NEEDED, Starting on Fri06/23/22 at 1437, Until Fri06/24/22 at 2245, pain or discomfort HYDROmorphone (DILAUDID) syringe 0.2-0.4 mg Given 06/18/2022 [...] 1502, Until Fri06/24/22 at 2245, Eye Discomfort, dry eye(s) Given 06/21/2022 8:22 AM CDT 2 drops [...] Provider: Ivett Grady RN)2206 (Given - Provider: Megna Moreno RN) 0600 (Given - Provider: Megan Moreno RN)1400 (Due) 10 mL, Intravenous, EVERY 8 HOURS, First dose on Fri06/18/22 at 2200, Until Discontinued acetaminophen (TYLENOL) rectal suppository 650 mg(Link ed Group 1) 0753 (See Alternative - Provider: Bonita Leija RN)1337 (See Alternative - Provider: Bonita Leija RN)214 (See Alternative - Provider: Megan Moreno RN) 0829 (See Alternative - Provider: Ivett Grady RN)1402 (See Alternative - Provider: Ivett Grady RN)220 (See Alternative - Provider: Megan Moreno RN) 0856 (See Alternative - Provider: Deidra Moe RN)1457 (See Alternative - Provider: Rebeka Moe RN) 650 mg, Rectal, THREE TIMES A DAY, First dose on Fri06/18/22 at 1400, Until Discontinued acetaminophen (TYLENOL) tablet 1,000 mg(Linked Group 1 ) 0753 (Given - Provider: Bonita Leija RN)1337 (Given - Provider: Bonita Leija RN)2140 (Given - Provider: Megan Moreno RN) 0829 (Given - Provider: Paola Hudson)140 (Given - Provider: Ivett Grady RN)2204 (Given - Provider: Megan Moreno RN) 0856 [...] Moreno RN) 0830 (Given - Provider: Ivett M Lohn, RN)1957 (Given - Provider: Megan Moreno RN) [...] 0857 (Given - Provider: Rebeka Moe, MALIKA) 1 mg, oral, DAILY, First dose on [...] Grady RN) 0855 (Given - Provider: Rebeka Moe, MALIKA) 30 mg, oral, DAILY, First dose on [...] 1 packet 1200 (Given - Provider: Rebeka Moe, RN) 1 packet, oral, DAILY, First dose on Fri06/24/22 at 1200, Until D iscontinued senna-docusate (SENNA-S) tablet 1 tablet (CANCELED) 07 52 (Given - Provider: Bonita Leija, MALIKA) 1 tablet, oral, TWICE A DAY, First dose on Fri06/18/22 at 2000, Until Discontinued senna-docusate (SENNA-S) tablet 2 tablet 2012 (Given - Provider: Megan Moreno RN) 0830 (Given - Provider: Paola Hudson)1956 (Given - Provider: Megan Moreno RN) 0856 (Given - Provider: Rebeka Moe RN) 2 tablet, oral, TWICE A DAY, First [...] (CANCELED) 0754 (Gi kaitlyn - Provider: Bonita Leija, MALIKA) 0830 (Given - Provider: Ivett Grady, MALIKA) 0.4 mg, oral, DAILY, First dose on Fri06/21/22 at 1930, Until Dis continued tamsulosin (FLOMAX) capsule 0.4 mg 0855 (Given - Provider: Rebeka Moe RN) 0.4 mg, oral, DAILY, 4 doses, First [...] drop 081 4 (Given - Provider: Bonita Leija, MALIKA) 1-2 drop, Each Eye, THREE TIMES A [...] RN) 035 (Given - Provider: Megan Moreno RN)1956 (Given - Provider: Megan Moreno RN) 0432 (Given - Provider: Megan Moreno RN) 250-500 mg, oral, EVERY 6 HOURS NEEDE D, Starting on Fri06/18/22 at 1336, Until Fri06/24/22 at 2245, muscle spasm, muscle pain ondansetron (ZOFRAN) disintegrating tablet 4 mg(Linked Group 2) 0852 (See Alternative - Provider: Rebeka Moe RN) 4 mg, oral, EVERY 8 HOURS NEEDED, Sta rting on Fri06/18/22 at 1618, Until Fri06/24/22 at 2245, nausea ondansetron (ZOFRAN) injection 4 mg(Linked Group 2) 0852 (Given - Provider: Rebeka Moe, MALIKA) 4 mg, Intravenous, EVERY 8 HOURS NEED ED, Starting on Fri06/18/22 at 1618, Until Fri06/24/22 at 2245, nausea & vomiting oxyCODONE (immediate release) (ROXICODONE) tablet 2.5- 5 mg (CANCELED) 2140 (Given - Provider: Megan Moreno RN) 035 (Given - Provider: Megan Moreno, RN)2203 (Given - Provider: Megan Moreno RN) 0432 (Given - Provider: Megan Moreno RN) 2.5-5 [...] vomiting documented in this encounter Care Teams [employer] Relationship Specialty Start Date End Date Id Tn Medical PCP - Primary [facility] 06/18/22 [facility] [place] [address] None, PCP - General 06/18/22 documented as of this encounter
--- OUTSIDE RECORDS SUMMARY | 2022-10-13 17:41 | XMS_ITS | Clinical Summary ---
:1950 Author Organization [facility] Address [address] [place] [address] Care Team Providers Name Role Phone [facility] Unavailable [phone] Md Craig Primary Care Provider Unavailable Allergies [...] by 0 Active (IMDUR) 60 mg oral extended mouth once release tablet 24 HR daily. loratadine (CLARITIN) 10 mg Take 10 mg by 0 Active oral tablet mouth once daily. metoprolol tartrate Take 50 mg by 0 Active (LOPRESSOR) 50 mg oral mouth twice a tablet day. pantoprazole (PROTONIX) 40 Take 40 mg by 0 Active mg oral delayed release mouth once tablet daily. predniSONE (DELTASONE) 10 Take 10 mg by 0 Active mg oral tablet mouth once daily. sulfaSALAzine (AZULFIDINE) Take 1,000 mg by 0 Active 500 mg oral tablet mouth twice a day. acetaminophen (TYLENOL) 500 Take 2 tablets 0 06/21/ 02 Active mg oral tablet (1,000 mg) by 2 mouth three times a day. lidocaine 4% (SALONPAS) 4 % Apply 1-3 15 patch 0 Active Top patch patches to skin 2 once daily. Keep on for 12 hours and remove for 12 hours. methocarbamoL (ROBAXIN) 500 Take 0.5-1 20 tablet 0 Active mg oral tablet tablets (250-500 2 mg) by mouth every 6 (six) hours [...] ounces of liquid as directed. hemorrhoidal 0.25-14-74.9 % Apply 1 57 g 0 Active Rectal Oint Application to 2 skin four times a day as needed. 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 COPD (chronic obstructive pulmonary disease) 2 Immunizations Name Administration Dates Next Due Tdap [...] 1950 COVID-19 Vaccine (#1) 1950 Spirometry 10/28/1952 Pneumococcal 65+ (1 - PCV) 1954 Adult Tetanus Booster 1967 Zoster Vaccine (1 of 2) 1998 Influenza Vaccine (#1) 2022 Yearly Review of HCD 06/18/2023 06/18/2022 Insurance Payer Benefit Plan / Subscriber ID Effective Phone Address T ype Group Dates MEDICARE MEDICARE PART [id number] 2022-Prese [address] Medicare [place] [address] [employer] [id number] 2022-Prese [facility] Government CHOICE PROGRAM COMMUNITY CARE nt [address] [place] [address] Sara Barillas Personal/Family Self 1950 [id number] [facility] (Home) [place] [address] Advance Directives For more information, please contact: [phone] Latest Code Status on File Code Status Date Activated Date Inactivated Comments Full Code 06/18/2022 4:19 PM 06/24/2022 10:50 PM Question Answer Comments How was code status determined? Patient Care Teams Pet Care Assistant Relationship Specialty Start Date End Date Saritha Snow Medical PCP - Primary Care Clinic 06/18/22 [facility] [place] [address] None, PCP - General 06/18/22
--- OUTSIDE RECORDS SUMMARY | 2022-10-13 17:41 | XMS_ITS | Encounter Summary ---
:1950 Author Organization [facility] Address [address] [place] [address] Care Team Providers Name Role Phone [facility] Unavailable [phone] Md Craig Primary Care Provider Unavailable Encounter [...] on filedocumented in this encounter Care Teams Slab Polisher Relationship Specialty Start Date End Date [place] [facility] PCP - Primary Care Clinic 06/18/[address] [facility] [address] Md Craig PCP - General 06/18/22 documented as of this encounter
--- NOTE | 2022-10-13 17:44 | ED.WOUNDLAC ---
HPI - Wound/Laceration General Chief Complaint: Laceration/Wound Stated Complaint: R pinky laceration Time Seen by Provider: 10/13/22 17:02 Source: patient Mode of arrival: ambulatory Limitations: no limitations History of Present Illness HPI narrative: 72-year-old male with a notable history of AFib, anticoagulated presents to the emergency department because of laceration to the finger. He was working with a small reciprocating saw in his shop when he accidentally hit the release lever on massage all causing the bleed to come loose while he was using a tool and cut his pinky finger. This happened about 2 hours prior to my evaluation which was just prior to arriving at the ED. Last tetanus shot that we have on record was 2009, he does not believe it has been done more recently than that. Finger without difficulty. He was not able to get the bleeding to stop at home. He has a history of a cervical spine and neck injury from June and h is expecting surgery on this within the next few weeks, is worried about infection. He cleanse the wound with hydrogen peroxide, did not appreciate any foreign body. Presents to the ED with a finger wrapped. He did take some Tylenol at about 3:00 p.m. for pain. Denies alcohol or intoxication. He was cutting on clean outdoor twigs, no animal carcass is or other potential contamination. He has otherwise been feeling well with no recent changes to his medications, no other injuries noted. No prior history of surgery or significant injury to that finger in the past. Injured finger is his right 5th finger, laceration on the interphalangeal and distal phalanx area Past medical history reviewed from our records, most of his care is at the [facility]. The medications are reviewed and noted. Denies any recent surgery. Social history noted from previous records. Note from June reviewed regarding neck injury. ROS is negative for other skin, generalized, musculoskeletal or neurological changes. Related Data Home Medications Medication Instructions Recorded Confirmed atorvastatin 80 mg tablet 80 mg PO QPM 06/17/22 07/16/22 fluticasone propionate 50 1 spray intranasal DAILY 06/17/22 07/16/22 mcg/actuation nasal spray,suspension (24 Hour Allergy Relief) isosorbide mononitrate 30 mg 30 mg PO DAILY 06/17/22 07/16/22 tablet,extended release 24 hr loratadine 10 mg tablet 10 mg PO DAILY 06/17/22 07/16/22 (Allerclear) metoprolol tartrate 50 mg tablet 50 mg PO BID 06/17/22 07/16/22 (Lopressor) amiodarone 200 mg PO DAILY 06/18/22 07/16/22 apixaban 5 mg tablet 5 mg PO BID 06/18/22 07/16/22 acetaminophen 500 mg tablet 500 mg PO TID 07/16/22 07/16/22 adalimumab 40 mg/0.4 mL 40 mg subcut Q14D 07/16/22 07/16/22 subcutaneous pen kit aspirin 81 mg tablet,delayed 81 mg PO DAILY 07/16/22 07/16/22 release (Adult Low Dose Aspirin) cholecalciferol (vitamin D3) 25 25 mcg PO DAILY 07/16/22 07/16/22 mcg (1,000 unit) capsule cyanocobalamin (vitamin B-12) 1,000 mcg PO DAILY 07/16/22 07/16/22 1,000 mcg tablet folic acid 1 mg tablet 1 mg PO DAILY 07/16/22 07/16/22 lidocaine 4 % topical patch 1 - 3 patch topical Q24H 07/16/22 07/16/22 methocarbamol 500 mg tablet 250 - 500 mg PO Q6H PRN 07/16/22 07/16/22 oxycodone 5 mg tablet 2.5 - 5 mg PO Q4H PRN 07/16/22 07/16/22 pantoprazole 40 mg tablet,delayed 40 mg PO DAILY 07/16/22 07/16/22 release polyethylene glycol 3350 17 17 g PO BID 07/16/22 07/16/22 gram/dose oral powder (Miralax) prednisone 10 mg tablet 10 mg PO DAILY 07/16/22 07/16/22 sulfasalazine 500 mg tablet 1 g PO BID 07/16/22 07/16/22 Previous Rx's Medication Instructions Recorded budesonide 0.5 mg/2 mL suspension 0.5 mg (2 mL) NEB BID 30 days #60 07/17/22 for nebulization (Pulmicort) mL ipratropium 0.5 mg-albuterol 3 mg 3 ml inhalation TID 30 days #90 ea 07/17/22 (2.5 mg base)/3 mL nebulization soln Allergies Allergy/AdvReac Type Severity Reaction Status Date / Time No Known Drug Allergies Allergy Verified 07/16/22 10:52 [facility] Medical History (Updated 10/13/22 @ 17:44 by Rebeka Kapadia MD) Alcohol abuse Arteriosclerosis of coronary artery Atrial fibrillation C5 pedicle fracture CHF (congestive heart failure) Chronic kidney disease GERD (gastroesophageal reflux disease) Hypertension Rheumatoid arthritis Tetrahydrocannabinol (THC) use disorder, mild, abuse Surgical History H/O total knee replacement Hx of coronary angioplasty Social History Highest level of school completed/degree received: 9th grade Smoking Status: Former smoker Do you use any of these nicotine containing products: None Second hand tobacco smoke exposure: No How often do you have a drink containing alcohol: never AUDIT-C Alcohol total score: 0 Non-prescribed substance use: marijuana (any form) Caffeine: Yes service: Yes Exam Const: Vital Signs, click to edit/add: Vital Signs - 24 hr 10/13/22 15:36 Temperature 97.9 F Pulse Rate [Right Pulse Oximeter] 59 L Respiratory Rate 18 Blood Pressure [Ri ght Upper Arm] 140/80 H Pulse Oximetry 96 Oxygen Delivery Me thod Room Air Documenting provider has reviewed patient's vital signs: yes Common normals: no apparent distress Other: A bit uncooperative and appears to be in significantly more pain that would be warranted for this minor laceration. Yells out very frequently even when only touched with gauze or soaking the wound. HENMT: Common normals: normocephalic Head and scalp: normocephalic Other: Most teeth are missing. Mucous membranes are moist with no cyanosis to the lips. Eye: Other: Normal visual gaze and tracking. Resp: Common normals: normal respiratory effort Effort & inspection: able to speak in complete sentences Cardio: Other: Appears to be in regular rhythm via radial pulse. Rate is around 60. Extremity: Other: 3.5 cm curved laceration to the depth of the muscle layer on the right 5th finger curving around the medial edges. It extends from the pad of the finger medially stopping on the interphalangeal area medially. Mild oozing bleeding but no pulse a lopez noted. He actually does have good abduction adduction extension and flexion at all interphalangeal joints. Arthritic changes noted at the fingers and wrist but essentially normal range of motion as compared to the opposite left side. Psych: Insight: fair Judgement: fair Skin: Narrative: Other than the laceration, no other injuries noted. Course Vital Signs Vital signs: Initial Vital Signs Temperature 97.9 F 10/13/22 15:36 Temperature Source Temporal Artery Scan 10/13/22 15:36 Pulse Rate 59 L 10/13/22 15:36 Respiratory Rate 18 10/13/22 15:36 Blood Pressure 140/80 H 10/13/22 15:36 Blood Pressure Mean 100 10/13/22 15:36 Blood Pressure Position Sitting 10/13/22 15:36 Pulse Oximetry 96 10/13/22 15:36 Oxygen Delivery Method 10/13/22 15:36 Vital Signs Temperature 97.9 F 10/13/22 15:36 Pulse Rate 59 L 10/13/22 15:36 Respiratory Rate 18 10/13/22 15:36 Blood Pressure 140/80 H 10/13/22 15:36 Pulse Oximetry 96 10/13/22 15:36 Oxygen Delivery Method 10/13/22 15:36 Temperature 97.9 F 10/13/22 15:36 Pulse Rate 59 L 10/13/22 15:36 Respiratory Rate 18 10/13/22 15:36 Blood Pressure 140/80 H 10/13/22 15:36 Pulse Oximetry 96 10/13/22 15:36 Oxygen Delivery Method 10/13/22 15:36 MDM - Wound/Laceration MDM Narrative Medical decision making narrative: Because of the persistent bleeding, I do recommend suture. Procedure: Laceration repair Wound was soaked in sterile water then explored for any foreign body with none seen. A total of 3 mL was used for digital block on the right 5th finger. 1 mL medially and laterally and then 1 mL on the pad of the finger near the laceration. Ample time was allowed to allow the 1% lidocaine to set up. Unfortunately, patient yelled and thrash around with any touching of the finger, I suspect that this is secondary to his neck injury. He reports decreased sensation but heightened pain. Significant care was used and I did discuss this with him. When I did test pokes with the needle, he would not report any pain but as soon as I would hold the finger tightly to place a stitch, he would scream and thrash which me the repair quite difficult and actually did tear the skin a couple of times. Nonetheless, with significant effort, I was able to place 4 sutures which did close the laceration quite well and was hemostatic. He still had flexion extension and abduction and adduction without any difficulty following repair. Repair will be covered in antibiotic ointment, TD will be given, aftercare extensively discussed. He will need to make a follow-up appointment in each 10 days for suture removal. Signs and symptoms of persistent bleeding, alarm symptoms and signs of infection were extensively discussed. Medical Records Attestation: I reviewed the patient's medical records. Discharge Plan Discharge Clinical Impression: Finger laceration Patient Disposition: Home, Self-Care Condition: Improved Instructions: Laceration (DC) Additional Instructions: The laceration was closed with 5 stitches, these will need to be removed in 10 days. Please make a clinic appointment to address this. There were no signs of any foreign bodies or infection thus far. This was rinsed out well prior to sticking things shut. This was also covered with antibiotic ointment and a dressing. Please leave the dressing in place for the next 24 hours. After 24 hours I would like for you to remove the dressing gently rinsing cleanse and then cover with more antibiotic ointment and a fresh dressing daily. Avoid water for the next few days and keep covered as much as possible. He will replace the dressing at least once daily until the stitches are removed. Your exam did not show any significant signs of tendon damage or injury to the nerves or blood vessels. This is good sign. Sometimes, there can be a partial tear in the tendon that can fully rupture within the next few days. If you have difficulty moving the finger please bring this up with her provider when the stitches are removed. Swelling and numbness can be common. It is okay to take Tylenol as we discussed for pain. You may continue taking your blood thinners. A small amount of oozing of blood would be expected because of your blood thinners. Large amounts of blood gushing would not be expected, come back to the ED if this happens. Any signs of severe infection would also warrant repeat ER evaluation Activity Level: No strenuous activity Discharge Diet: Regular Prescriptions: No Action fluticasone propionate [24 Hour Allergy Relief] 50 mcg/actuation spray,suspension 1 spray intranasal DAILY Rx Instructions: administer into each nostril loratadine [Allerclear] 10 mg tablet 10 mg PO DAILY metoprolol tartrate [Lopressor] 50 mg tablet 50 mg PO BID isosorbide mononitrate 30 mg tablet extended release 24 hr 30 mg PO DAILY atorvastatin 80 mg tablet 80 mg PO QPM apixaban 5 mg tablet 5 mg PO BID amiodarone 200 mg PO DAILY acetaminophen 500 mg tablet 500 mg PO TID adalimumab 40 mg/0.4 mL pen injector kit 40 mg subcut Q14D Rx Instructions: start on day 29 of therapy aspirin [Adult Low Dose Aspirin] 81 mg tablet,delayed release (DR/EC) 81 mg PO DAILY cholecalciferol (vitamin D3) 25 mcg (1,000 unit) capsule 25 mcg PO DAILY cyanocobalamin (vitamin B-12) 1,000 mcg tablet 1,000 mcg PO DAILY folic acid 1 mg tablet 1 mg PO DAILY lidocaine 4 % adhesive patch,medicated 1 - 3 patch topical Q24H Rx Instructions: may leave on for up to 12 hrs pantoprazole 40 mg tablet,delayed release (DR/EC) 40 mg PO DAILY sulfasalazine 500 mg tablet 1 g PO BID Rx Instructions: give with food (meal/snack) prednisone 10 mg tablet 10 mg PO DAILY polyethylene glycol 3350 [Miralax] 17 gram/dose powder 17 g PO BID oxycodone 5 mg tablet 2.5 - 5 mg PO Q4H PRN methocarbamol 500 mg tablet 250 - 500 mg PO Q6H PRN budesonide [Pulmicort] 0.5 mg/2 mL Suspension For Nebulization 0.5 mg NEB BID 30 Days Qty: 60 1RF ipratropium-albuterol 0.5 mg-3 mg(2.5 mg base)/3 mL solution for nebulization 3 ml inhalation TID 30 Days Qty: 90 1RF Follow Up/Referrals: Provider,Not a Local [Primary Care Provider] - (Primary care provider in 8-10 days for suture removal) Stand Alone Forms: MyHealth Info Instructions
[2022-10-13 18:01] VITALS: BP 140/80; PULSE 59; RESP 18; TEMP 36.6
== END 2022-10-13 18:27 | disposition home or self-care (01) ==
PROVIDERS: Emergency Provider Family Medicine
DX: S61.216A Laceration without foreign body of right little finger without damage to nail, initial encounter (principal); W27.0XXA Contact with workbench tool, initial encounter
CPT/HCPCS: 12001; 90471; 90714; 99282; 99283; J2001

== ENCOUNTER 2024-11-23 11:19 | Emergency (ER) | payer MEDICARE, OTHER, SELFPAY ==
--- OUTSIDE RECORDS SUMMARY | 2024-11-23 11:21 | XMS_ITS | Clinical Summary ---
Author Organization [facility] Address [place], [place] [address] Care Team Providers Care Blending Coordinator Name Role Phone [facility] Emergency Department Provider [phone] Allergies Active Allergy Reactions Criticality Noted Date Comments Lisinopril Cough 06/01/2021 Tree And Shrub Pollen Runny Nose,Cough Medium 02/18/20 22 Medications atorvastatin (LIPITOR) 80 mg tablet Take 1 tablet by mouth at bedtime. 0 07/16/20 18 Active loratadine (CLARITIN) 10 mg tablet Take 1 tablet by mouth once daily. 0 07/16/20 18 Active acetaminophen (TYLENOL EXTRA STRGTH) 500 mg tablet Take 1,000 mg by mouth every 6 hours if needed. Max acetaminophen dose: 4000mg in 24 hrs. Active adalimumab 40 mg/0.8 mL injection Inject 40 mg subcutaneous every 2 weeks. 01/11/20 22 Active cholecalciferol (VITAMIN D3) 1,000 unit tablet Take 1 Tablet by mouth once daily. 06/01/20 21 Active fluticasone (50 mcg per actuation) nasal solution (FLONASE) Inhale 1 [place] into affected nostril(s) 2 times daily if needed for Rhinitis. Active folic acid 1 mg tablet Take 1 Tablet by mouth once daily. 01/11/20 22 Active predniSONE (DELTASONE) 10 mg tablet Take 1 Tablet by mouth once daily. 01/11/20 22 Active sulfaSALAzine (AZULFIDINE) 500 mg tablet Take 2 Tablets by mouth 2 times daily. 01/11/20 22 Active metoprolol tartrate (LOPRESSOR) 50 mg tabletIndications:M ultifocal atrial tachycardia (HC) Take 1 Tablet (50 mg) by mouth 2 times daily. 180 Tablet 3 02/21/20 Active WalkerIndications:C ardiovascular symptoms Walker with front wheels for home use. 1 Each 02/22/20 Active pantoprazole (PROTONIX) 40 mg delayed-release tabletIndications:G astroesophageal reflux disease, unspecified whether esophagitis present Take one tablet by mouth twice a day with meals for 2 weeks then once daily indefinitely. 30 Tablet 02/22/20 Active Additional Information Patient taking differently: 40 mg Oral ONCE DAILY BEFORE A MEAL, Take one tablet by mouth twice a day with meals for 2 weeks then once daily indefinitely., Informant: Family, Reported on 01/27/2023 amiodarone (Pacerone) 200 mg tablet Take 200 mg by mouth once daily. 05/15/20 Active gabapentin (NEURONTIN) 300 mg capsule Take 1 Capsule by mouth three times daily. 06/24/20 Active lidocaine 5 % topical patch APPLY 1 PATCH TOPICALLY NEEDED FOR PAIN. WEAR FOR ONLY 12 HOURS THEN REMOVE FOR 12 HOURS. 06/28/20 Active cyanocobalamin (VITAMIN B12) 1,000 mcg tablet Take 1 Tablet by mouth once daily. 03/05/20 Active calcium citrate (CITRACAL) 200 mg (950 mg) tabletIndications:S /P cervical spinal fusion Take 1 tablet by oral route 2 times every day. 60 Tablet 11 01/08/20 23 Active Electrical Bone Growth StimulatorIndicatio ns:S/P cervical spinal fusion For home use. For use after surgery. DJO BGS 0 01/08/20 23 Active tamsulosin (FLOMAX) 0.4 mg capsule Take 0.4 mg by mouth once daily after a meal. Active Polyethylene Glycol 3350 powder Mix 17 g in liquid then take by mouth 2 times daily if needed. Active sennosides-docusate (SENOKOT S) (8.6-50 mg) tabletIndications:O pioid use Take 1-4 Tablets by mouth 2 times daily if needed for Constipation. 60 Tablet 3 3:21 PM CDT 01/29/20 23 Active tiZANidine (ZANAFLEX) 2 mg tabletIndications:P ost-op pain Take 1-2 Tablets (2-4 mg) by mouth every 6 hours if needed for Muscle Spasm. 90 Tablet 3 3:21 PM CDT 01/29/20 23 Active apixaban (Eliquis) 5 mg tabletIndications:p revent thromboembolism in chronic atrial fibrillation Take 1 Tablet (5 mg) by mouth two times daily. 0 02/02/20 23 Active oxyCODONE (ROXICODONE) 5 mg immediate release tabletIndications:P ost-op pain Take 1 Tablet (5 mg) by mouth one time if needed for Pain (First choice for severe pain. 1 tab QHS prn). 10 Tablet 02/27/20 23 Active ergocalciferol (VITAMIN D2; DRISDOL) 50,000 unit capsule 1,250 mcg. 03/05/20 23 Active methocarbamoL (ROBAXIN) 500 mg tablet 500 mg. 12/23/19 23 Active olopatadine (PATADAY) 0.2 % ophthalmic solution instill 1 drop into eyes every morning* 07/30/20 23 Active HYDROcodone-acetami nophen (5-325 mg/tablet) TAKE 1/2 TABLET BY MOUTH EVERY 6 HOURS NEEDED FOR PAIN 10/10/20 23 Active hydroxychloroquine (PLAQUENIL) 200 mg tablet Take 1 Tablet by mouth two times daily. 01/13/20 24 Active adalimumab-bwwd (HADLIMA,CF,) 40 mg/0.4 mL subcutaneous auto-injector Inject subcutaneous. 06/04/20 24 Active polyvinyl alcohol (ARTIFICAL TEARS) 1.4 % ophthalmic solution Place into the eye(s). 06/03/20 24 Active methotrexate (RHEUMATREX) 2.5 mg tablet Take 7.5 mg by mouth. 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 01/27/2023 Normocytic anemia 01/27/2023 S/P cervical spinal fusion 01/27/2023 Seropositive rheumatoid arthritis 02/17/2022 Alcohol abuse 02/17/2022 Anemia 02/17/2022 Arteriosclerosis of coronary artery 02/17/2022 Overview (02/17/2022): Sep 18, 2016 Entered By: MARYELLEN LEON Comment: s/p stenting Benign essential hypertension 02/17/2022 Cannabis abuse 02/17/2022 Chronic kidney disease 02/17/2022 Gastroesophageal reflux disease 02/17/2022 Hyperlipidemia 02/17/2022 Vomiting 02/17/2022 Mid sternal chest pain 02/17/2022 Atrial fibrillation 02/17/2022 Encounters Date Type Department Care Team Description 11/16/2024 Orders Only [facility] Scanner 1 scan: (1-Ord) [facility], TRANSFORAMINAL LUMBOSACRAL THERAPEUTIC EPIDURAL INJECTION BILAT L1-L2, 11/16/2024 08/25/2024 1:45 PM CDT Office Visit [facility] [address] [place] [address] Grayson Rodriguez PA Follow Up (Injection) 08/25/2024 Travel from Last 3 Months Immunizations Name Administration Dates Next Due COVID-19 vaccine (Pfizer-Bio NTech 30mcg/0.3mL) 12YO+ JJ-SUCROSE PF, MDV 03/05/2022 COVID-19 vaccine (Pfizer-Bio NTech 30mcg/0.3mL) PF, MDV 09/28/2021,01/31/2021,01/12/2021 Influenza Virus, Unspecified 08/26/2019, 09/18/2018,08/01/2016,2013,11/19/2013,11/27/2012 Influenza, High-dose Inactivated 08/29/2017,10/17 Influenza, IIV4 09/28/2021,07/28/2020 Influenza, Inactivated AIIV4 (Age 65+ Years) Preserv Free 09/18/2022 Pneumococcal conj 13-Valent (Prevnar 13) 11/03/2015 Pneumococcal, Unspecified 01/11/2014 Td (Age >=7 Years) 10/13/2022 Tdap 07/24/2022,03/13/2010 Zoster (Shingrix-RZV, recombinant) 03/23/2019, Zoster (Zostavax-ZVL, live) 11/27/2012 Family History Medical History Relation Name Comments Heart Disease Father Heart attack Father Hypertension Father Heart attack Mother Hypertension Mother Relation Name Status Comments Father Mother Social History Tobacco Use Types Packs/Day Years Used Date Smoking Tobacco: Former Cigarettes 0.3 20 Smokeless Tobacco: Never Tobacco Cessation:Counseling Given: Not Answered Alcohol Use Standard Drinks/Week Comments Not Currently 11 (1 standard drink = 0.6 oz pu re alcohol) Quit after last 06/2022 Social Connections Answer Date Recorded Frequency of Communication with Friends and Fami ly Not on file 12/09/2022 Sex and Gender Information Value Date Recorded Sex Assigned at Not on file Legal Sex Male 9:03 AM CDT Gender Identity Not on file Sexual Orientation Not on file Obstetrics History Last Filed Vital Signs Vital Sign Reading Time Taken Comments Blood Pressure 122/65 01/28/2023 8:14 AM CDT Pulse 61 01/28/2023 8:14 AM CDT Temperature 36.8 C (98.2 F) 01/28/2023 8:14 AM CDT Respiratory Rate 14 01/28/2023 8:14 AM CDT Oxygen Saturation 92% 01/28/2023 8:14 AM CDT Inhaled Oxygen Concentration - - Weight 53.5 kg (118 lb) 08/25/2024 1:25 PM CDT Height 157.5 cm (5' 2) 08/25/2024 1:25 PM CDT Body Mass Index 21.58 08/25/2024 1:25 PM CDT Plan of Treatment Health Maintenance Due Date Last Done Comments Depression screening for age 12+ 1960 Hepatitis C screening for ag e 18-79 1966 Medicare Wellness for age 65+ 2013 Pneumococcal series for age 50+ (2 of 2 - PPSV23) 12/29/2015 11/03/2015, 01/11/2014 RSV vaccine for adults or (1 - 1-dose 75+ series) 2023 Influenza for age 65+ 07/18/2024 09/18/2022 , 09/28/2021, 07/28/2020, Additional history exists COVID-19 vaccine series (2023- season) 2024 08/13/2024, 05/04/2024, 10/16/2023, Additional history exists BMI (ht and wt on same day) for age 18+ 08/25/2025 08/25/2024, 06/30/2024, 03/11/2024, Additional history exists Tetanus booster 10/13/2032 10/13/2022, 09/05/2022, 03/13/2010 Zoster (shingles) series for age 50+ Completed 03/23/2019, 12/15/2018, 11/27/2012 Tdap Completed 07/24/2022, 03/13/2010 Medical Devices Implanted Type Area Shot Packer Device Identifier Shelf Expiration Date Model / Serial / Lot Endoskeleton Tc Implant (16mm X14mm) 6mm Medium Implanted:Qty: 1 on 01/27/2023 by Stephen Amador MD at [facility] Spine Implants N/A: Cervical Vertebrae Medtronic 03/28/2027 [id number] -[id number] / NA / [id number] Endoskeleton Tc Implant (16mm X14mm) 6mm Medium Implanted:Qty: 1 on 01/27/2023 by Stephen Amador MD at [facility] Spine Implants N/A: Cervical Vertebrae Medtronic 06/20/2027 [id number] -[id number] / NA / [id number] Description:6 Medium Endoskeleton Tc Implant (16mm X 14mm) 7mm Medium Implanted:Qty: 1 on 01/27/2023 by Stephen Amador MD at [facility] Spine Implants N/A: Cervical Vertebrae Medtronic 08/22/2027 [id number] -[id number] / NA / [id number] Description:7 Medium 48mm Zevo Plate Implanted:Qty: 1 on 01/27/2023 by Stephen Amador MD at [facility] Spine Implants N/A: Cervical Vertebrae Medtronic [id number] / NA / NA Description:From sterile tra y- No expiration date 3.5 X 15mm Vsd Screws Implanted:Qty: 7 on 01/27/2023 by Stephen Amador MD at [facility] Spine Implants N/A: Cervical Vertebrae Medtronic [id number] / NA / NA Description:From sterile tra y- No expiration date 4.0 X 17mm Vsd Screw Implanted:Qty: 1 on 01/27/2023 by Stephen Amador MD at [facility] Spine Implants N/A: Cervical Vertebrae Medtronic [id number] / NA / NA Description:From sterile tra y- No expiration date Set Bone Graft Accelerate Irmo Dbf 3cc - [id number] Implanted:Qty: 1 on 01/27/2023 by Stephen Amador MD at [facility] N/A: Cervical Vertebrae Medtronic Spine/Ortho 06/20/2023 [id number] / [id number] / NA Procedures Procedure Name Priority Date/Time Associated Diagnosis Comments SCAN-OPERATIVE/PROC EDURE REPORT 11/16/2024 12:00 AM FUNDRAISING DIRECTOR from Last 3 Months Results * SCAN-OPERATIVE/PROCEDURE REPORT (11/16/2024 12:00 AM FUNDRAISING DIRECTOR) us Scanner OTHER Final Result from Last 3 Months Insurance MEDICARE PB ONLY MEDICARE PART A HB ONLY MEDICARE PART B HB ONLY [facility] Advance Directives * Full Code (Latest Code Status on File) Date Activated Date Inactivated Comments 01/27/2023 1:23 PM 01/28/2023 7:18 PM Question Answer Comments Code Status Discussion: Other Not disc ussed * Full Code Date Activated Date Inactivated Comments 01/27/2023 8:08 AM 01/27/2023 1:23 PM Question Answer Comments Code Status Discussion: Other Not disc ussed * Full Code Date Activated Date Inactivated Comments 02/17/2022 9:11 PM 02/21/2022 3:58 PM Question Answer Comments Code Status Discussion: Reviewed Preferences Care Teams Blending Coordinator Relationship Specialty Start Date End Date Hospital, [facility] [place] [id number] PCP - General 08/01/16
[2024-11-23 11:56] VITALS: BP 104/64; PULSE 57; RESP 18; TEMP 36.6; O2SAT 96; BMI 21.9
--- NOTE | 2024-11-23 14:55 | ED.SKABFB ---
HPI - Skin/Abscess/Foreign Bdy General Chief complaint: Skin/Abscess/Foreign Body Stated complaint: infection on left wrist Time Seen by Provider: 11/23/24 14:36 History of Present Illness HPI narrative: This 74-year-old male comes in because of concern about a lump on his left wrist. He states that this lump began almost 2 months ago. It is a rather large lump about 3-4 cm in diameter and about 3 cm elevated from the radial aspect of his left wrist. He has been to several urgent care and emergency department visits elsewhere regarding this. There was an attempt to drain it but there was no fluid that could be drained. He did have an MRI and brings the images in but there is no MRI report. [facility] and they instructed him to come in for evaluation so he came here to this emergency room. He states that he has had a brace that he has worn he has taken a couple rounds of antibiotics and he has also taken the steroid without any relief. He did go to an orthopedic clinic appointment and they wanted to see an MRI. He has not had a follow-up after the MRI was done. He is mostly concerned that there may be an infection that is developed. Related Data Home Medications ?Medication ?Instructions ?Recorded ?Confirmed atorvastatin 80 mg tablet 80 mg PO QPM 06/17/22 11/23/24 fluticasone propionate 50 1 spray intranasal DAILY 06/17/22 11/23/24 mcg/actuation nasal spray,suspension (24 Hour Allergy Relief) isosorbide mononitrate 30 mg 30 mg PO DAILY 06/17/22 10/13/23 tablet,extended release 24 hr loratadine 10 mg tablet 10 mg PO DAILY 06/17/22 11/23/24 (Allerclear) metoprolol tartrate 50 mg tablet 50 mg PO BID 06/17/22 11/23/24 (Lopressor) apixaban 5 mg tablet 5 mg PO BID 06/18/22 11/23/24 acetaminophen 500 mg tablet 500 mg PO TID 07/16/22 11/23/24 adalimumab 40 mg/0.4 mL 40 mg subcut Q14D 07/16/22 11/23/24 subcutaneous pen kit cholecalciferol (vitamin D3) 25 25 mcg PO DAILY 07/16/22 11/23/24 mcg (1,000 unit) capsule cyanocobalamin (vitamin B-12) 1,000 mcg PO DAILY 07/16/22 11/23/24 1,000 mcg tablet folic acid 1 mg tablet 1 mg PO DAILY 07/16/22 11/23/24 lidocaine 4 % topical patch 1 - 3 patch topical Q24H 07/16/22 11/23/24 methocarbamol 500 mg tablet 250 - 500 mg PO Q6H PRN 07/16/22 10/13/23 oxycodone 5 mg tablet 2.5 - 5 mg PO Q4H PRN 07/16/22 11/23/24 pantoprazole 40 mg tablet,delayed 40 mg PO DAILY 07/16/22 11/23/24 release polyethylene glycol 3350 17 17 g PO BID 07/16/22 11/23/24 gram/dose oral powder (Miralax) prednisone 10 mg tablet 10 mg PO DAILY 07/16/22 11/23/24 sulfasalazine 500 mg tablet 1 g PO BID 07/16/22 11/23/24 tamsulosin 0.4 mg capsule 0.4 mg PO DAILY 11/23/24 11/23/24 Previous Rx's ?Medication ?Instructions ?Recorded ipratropium 0.5 mg-albuterol 3 mg 3 ml inhalation TID 30 days #90 ea 07/17/22 (2.5 mg base)/3 mL nebulization soln olopatadine 0.2 % eye drops 1 drp ophthalmic (eye) QAM #2.5 mL 07/30/23 tramadol 50 mg tablet 50 mg PO Q6H PRN pain #12 tabs 11/23/24 Allergies Allergy/AdvReac Type Severity Reaction Status Date / Time No Known Drug Allergies Allergy Verified 11/23/24 12:08 Review of Systems Status of ROS: Reports: 10 or more systems reviewed and unremarkable except as noted in History and below Narrative: Constitutional: No fevers, no weight gain or loss. Eyes: No discharge. No vision changes. HENT: No congestion, no sore throat, no ear pain. Cardiovascular: No chest pain, no palpitations. Respiratory: No shortness of breath, no wheezes, no cough. Gastrointestinal: No abdominal pain, no vomiting, no diarrhea. Genitourinary: No dysuria, no hematuria. Musculoskeletal: Normal range of motion. Generalized joint aches and pains from osteoarthritis. Skin: No rashes, no pruritis. Neurological: No dizziness, weakness, sensory change, speech change. Endo/Heme/Allergies: No bruising or bleeding. No polydipsia. Pysch: no suicidality, no anxiety, no insomnia. All other systems reviewed and are negative. PFSH PFSH Medical History Rheumatoid arthritis ?M06.9 - Rheumatoid arthritis, unspecified (ICD-10) C5 pedicle fracture ?S12.490A - Other displaced fracture of fifth cervical vertebra, initial encounter for closed fracture (ICD-10) Tetrahydrocannabinol (THC) use disorder, mild, abuse ?F12.10 - Cannabis abuse, uncomplicated (ICD-10) Chronic kidney disease ?N18.9 - Chronic kidney disease, unspecified (ICD-10) Hypertension ?I10 - Essential (primary) hypertension (ICD-10) GERD (gastroesophageal reflux disease) ?K21.9 - Gastro-esophageal reflux disease without esophagitis (ICD-10) CHF (congestive heart failure) ?I50.9 - Heart failure, unspecified (ICD-10) Atrial fibrillation ?I48.91 - Unspecified atrial fibrillation (ICD-10) Arteriosclerosis of coronary artery ?I25.10 - Atherosclerotic heart disease of [place] coronary artery without angina pectoris (ICD-10) Alcohol abuse ?F10.10 - Alcohol abuse, uncomplicated (ICD-10) Surgical History H/O total knee replacement ?Z96.659 - Presence of unspecified artificial knee joint (ICD-10) Hx of coronary angioplasty ?Z98.61 - Coronary angioplasty status (ICD-10) Social History Highest level of school completed/degree received: 9th grade Smoking Status: Former smoker Do you use any of these nicotine containing products: None Second hand tobacco smoke exposure: No How often do you have a drink containing alcohol: never AUDIT-C Alcohol total score: 0 Non-prescribed substance use: marijuana (any form) Caffeine: Yes service: Yes Exam Narrative: Exam Narrative: Constitutional: Well-developed, well-nourished, no acute distress. HEENT: Normocephalic, atraumatic. Neck: Normal range of motion. Nontender. Supple. Heart: Regular. No murmurs. Normal rate. Intact distal pulses. Lungs: Clear to auscultation. No chest discomfort. No wheezes, rhonchi, or rales. Abdomen: Normal bowel sounds. Nontender. No rebound tenderness. Genitalia: Deferred. Back: No midline tenderness. Normal range of motion. Extremities: Normal range of motion. No injury. Left wrist has a well-defined sizable lump about 3 cm in diameter arising off of the radial aspect of his wrist. He has normal range of motion. He reports some discomfort. There is no erythema. The lump is well defined. Skin: Intact. No rash. Warm. No erythema or pallor. Neurologic: No altered sensation. No weakness. Alert and oriented. Psychiatric: No suicidality. No anxiety or depression. No insomnia. Nursing notes and vitals signs are reviewed. Const: Vital Signs, click to edit/add: Vital Signs - 24 hr 11/23/24 11:56 Temperature 97.9 F Pulse Rate [Pulse Oximeter] 57 L Respiratory Rate 18 Blood Pressure [Ri ght Upper Arm] 104/64 Pulse Oximetry 96 Oxygen Delivery Me thod Room Air Course Vital Signs Vital signs: Initial Vital Signs Temperature 97.9 F 11/23/24 11:56 Temperature Source Temporal Artery Scan 11/23/24 11:56 Pulse Rate 57 L 11/23/24 11:56 Respiratory Rate 18 11/23/24 11:56 Blood Pressure 104/64 11/23/24 11:56 Blood Pressure Mean 77 11/23/24 11:56 Blood Pressure Position Sitting 11/23/24 11:56 Pulse Oximetry 96 11/23/24 11:56 Oxygen Delivery Method Room Air 11/23/24 11:56 Vital Signs Temperature 97.9 F 11/23/24 11:56 Pulse Rate 57 L 11/23/24 11:56 Respiratory Rate 18 11/23/24 11:56 Blood Pressure 104/64 11/23/24 11:56 Pulse Oximetry 96 11/23/24 11:56 Oxygen Delivery Method Room Air 11/23/24 11:56 Temperature 97.9 F 11/23/24 11:56 Pulse Rate 57 L 11/23/24 11:56 Respiratory Rate 18 11/23/24 11:56 Blood Pressure 104/64 11/23/24 11:56 Pulse Oximetry 96 11/23/24 11:56 Oxygen Delivery Method Room Air 11/23/24 11:56 MDM - Skin/Abscess/Foreign Bdy MDM Narrative Medical decision making narrative: This patient comes in wanting reassurance that he does not have an infection in a lump that he has on his wrist. He does bring an MRI disc with images and I was able to view those in the radiology department. There is no radiologist report accompanying these images. The lump on his wrist is a well-defined mass typical of a lipoma or a inclusion cyst of some sort. The MRI images indicate that this is not a fluid collection. This is not something that can be drained. The patient was reassured that by my exam there is no sign of infection. He does not have any erythema or increased warmth. He does have follow-up appointment with orthopedic clinic. I stated that it seems like this needs to be excised and does not appear to be attached to any underlying structures. He is okay to be discharged home to continue with those plans. I did for provide a prescription for some tablets of tramadol. Discharge Plan Discharge Clinical Impression: Mass of joint of left wrist Patient Disposition: Home, Self-Care Condition: Stable Additional Instructions: Take medication as prescribed and needed. Follow up with MD as scheduled. Return if worsening. Prescriptions: New tramadol 50 mg tablet 50 mg PO Q6H PRN (Reason: pain) Qty: 12 0RF No Action olopatadine 0.2 % drops 1 drp ophthalmic (eye) QAM Qty: 2.5 3RF fluticasone propionate [24 Hour Allergy Relief] 50 mcg/actuation spray,suspension 1 spray intranasal DAILY Rx Instructions: administer into each nostril loratadine [Allerclear] 10 mg tablet 10 mg PO DAILY metoprolol tartrate [Lopressor] 50 mg tablet 50 mg PO BID isosorbide mononitrate 30 mg tablet extended release 24 hr 30 mg PO DAILY atorvastatin 80 mg tablet 80 mg PO QPM apixaban 5 mg tablet 5 mg PO BID acetaminophen 500 mg tablet 500 mg PO TID adalimumab 40 mg/0.4 mL pen injector kit 40 mg subcut Q14D Rx Instructions: start on day 29 of therapy cholecalciferol (vitamin D3) 25 mcg (1,000 unit) capsule 25 mcg PO DAILY cyanocobalamin (vitamin B-12) 1,000 mcg tablet 1,000 mcg PO DAILY folic acid 1 mg tablet 1 mg PO DAILY lidocaine 4 % adhesive patch,medicated 1 - 3 patch topical Q24H Rx Instructions: may leave on for up to 12 hrs pantoprazole 40 mg tablet,delayed release (DR/EC) 40 mg PO DAILY sulfasalazine 500 mg tablet 1 g PO BID Rx Instructions: give with food (meal/snack) prednisone 10 mg tablet 10 mg PO DAILY polyethylene glycol 3350 [Miralax] 17 gram/dose powder 17 g PO BID oxycodone 5 mg tablet 2.5 - 5 mg PO Q4H PRN methocarbamol 500 mg tablet 250 - 500 mg PO Q6H PRN ipratropium-albuterol 0.5 mg-3 mg(2.5 mg base)/3 mL solution for nebulization 3 ml inhalation TID 30 Days Qty: 90 1RF tamsulosin 0.4 mg capsule 0.4 mg PO DAILY Follow Up/Referrals: Provider,Not a Local [Primary Care Provider] - Stand Alone Forms: MyHealth Info Instructions
== END 2024-11-23 15:22 | disposition home or self-care (01) ==
LOC: ED 15:13
PROVIDERS: Emergency Provider Emergency Medicine Emergency Medical Services
DX: M25.832 Other specified joint disorders, left wrist (principal)
CPT/HCPCS: 99283; 99284

== ENCOUNTER 2024-12-22 15:03 | Outpatient (CLI) | payer OTHER, SELFPAY ==
--- NOTE | 2024-12-22 15:30 | CRLHL7_ITS ---
For Patients: As a result of the Century Cures Act, medical imaging exams and procedure reports are released immediately into your electronic medical record. You may view this report before your referring provider. If you have questions, please contact your health care provider. XR DXA BONE MINERAL DENSITY (BMD) Current height (in): 62.0. Weight (lb): 120.0. Menopause age: Not applicable. Ethnicity: White. Reason for exam: Osteoporosis. 1. Have you had a previous hip or vertebral fracture? No. 2. Have you had any fractures during your adult life which did not result from significant trauma (e.g., auto accident)? No. 3. Did either of your parents have a hip fracture? No. 4. Do you smoke? No. 5. Have you ever taken Glucocorticoids? No. 6. Do you have rheumatoid arthritis? Yes. 7. Do you have secondary osteoporosis? No. 8. Do you drink 3 or more alcoholic drinks per day? No. 9. Are you being treated for osteoporosis? No. 10. Have you ever taken any of the following medications: Actonel, Evista, Fosamax, Miacalcin, Reclast, Boniva, Forteo, HRT (i.e. estrogen/hormone therapy), Protelos, Prolia, Vitamin D, Calcium, other ??? please specify. ANSWER: Yes, vitamin D, calcium. 11. Do you have any of the following medical conditions: Anorexia or bulimia, asthma or emphysema, end stage renal disease, hyperparathyroidism, any seizure disorders, cancer, inflammatory bowel diseases, hysterectomy, other ??? please specify. ANSWER: No. 12. What was your maximum height (inches)? 62. 13. Do you perform weight bearing exercise regularly? No. 14. Do you regularly consume dairy products? Yes. 15. Do you drink caffeinated beverages? Yes. TECHNIQUE: Bone mineral density study was performed using the [email or web address]. FINDINGS: The results of the study expressed as bone mineral density (BMD) are as follows: Lumbar spine L2 to L4: BMD: 0.958 g/cm2. T-score: -1.4. Z-score: -0.3 Neck Left: BMD: 0.606 g/cm2. T-score: -2.4. Z-score: -1.0 Right: BMD: 0.558 g/cm2. T-score: -2.7. Z-score: -1.3 Total Left: BMD: 0.767 g/cm2. T-score: -1.8. Z-score: -0.9 Right: BMD: 0.660 g/cm2. T-score: -2.5. Z-score: -1.6 IMPRESSION: Osteoporosis. Jessi Segura M.D. Diagnostic/Breast Radiologist [email or web address] Transcribed: 9:46 am DW/Dictated by: Jessi Segura MD @ 12/23/2024 5:58:00 AM (Electronically Signed)
== END 2024-12-22 15:04 | disposition home or self-care (01) ==
LOC: RAD 15:05
PROVIDERS: Visit Provider Internal Medicine
DX: M81.0 Age-related osteoporosis without current pathological fracture (principal)
CPT/HCPCS: 77080

== ENCOUNTER 2025-10-20 15:01 | Outpatient (CLI) | payer OTHER, SELFPAY ==
--- NOTE | 2025-10-20 15:00 | CRLHL7_ITS ---
For Patients: As a result of the Century Cures Act, medical imaging exams and procedure reports are released immediately into your electronic medical record. You may view this report before your referring provider. If you have questions, please contact your health care provider. DXA BONE MINERAL DENSITY STUDY Reason for exam: Osteoporosis. Current height (in): 62. Weight (lb): 120. Menopause age: N/A. Ethnicity: White. 1. Have you had a previous hip or vertebral fracture? No. 2. Have you had any fractures during your adult life which did not result from significant trauma (e.g., auto accident)? Yes. 3. Did either of your parents have a hip fracture? No. 4. Do you smoke? No. 5. Have you ever taken Glucocorticoids? No. 6. Do you have rheumatoid arthritis? Yes. 7. Do you have secondary osteoporosis? Yes. 8. Do you drink 3 or more alcoholic drinks per day? No. 9. Are you being treated for osteoporosis? No. 10. Have you ever taken any of the following medications: Actonel, Evista, Fosamax, Miacalcin, Reclast, Boniva, Forteo, HRT (i.e. estrogen/hormone therapy), Protelos, Prolia, Vitamin D, Calcium, other ??? please specify. ANSWER: Yes, Vitamin D and Calcium. 11. Do you have any of the following medical conditions: Anorexia or bulimia, asthma or emphysema, end stage renal disease, hyperparathyroidism, any seizure disorders, cancer, inflammatory bowel diseases, hysterectomy, other ??? please specify. ANSWER: No. 12. What was your maximum height (inches)? 62. 13. Do you perform weight bearing exercise regularly? No. 14. Do you regularly consume dairy products? Yes. 15. Do you drink caffeinated beverages? Yes. TECHNIQUE: Bone mineral density study was performed using the [employer]. FINDINGS: The results of the study expressed as bone mineral density (BMD) are as follows: Lumbar spine L2 to L4: BMD: 0.944 g/cm2. T-score: -1.6. Z-score: -0.4. Neck Left: BMD: 0.575 g/cm2. T-score: -2.6. Z-score: -1.2. Right: BMD: 0.553 g/cm2. T-score: -2.8. Z-score: -1.4. Total Left: BMD: 0.749 g/cm2. T-score: -1.9. Z-score: -1.0. Right: BMD: 0.685 g/cm2. T-score: -2.3. Z-score: -1.4. IMPRESSION: Osteoporosis. *Comparison exams done prior to 04/2020 were performed on different unit, [employer]. COMPARISON: Compared with the scan of 12/22/2024, the bone mineral density has decreased by 1.5 percent at the spine and increased by 0.5 percent at the hip. Luis Rock M.D. Diagnostic Radiologist [email or web address] ROGER/topher obando/Dictated by: Luis Rock MD @ 10/21/2025 9:20:00 AM (Electronically Signed)
== END 2025-10-20 15:02 | disposition home or self-care (01) ==
LOC: RAD 15:02
PROVIDERS: Visit Provider Internal Medicine Endocrinology, Diabetes & Metabolism
DX: M81.0 Age-related osteoporosis without current pathological fracture (principal)
CPT/HCPCS: 77080